=== PATIENT | female | born 1980 | race Caucasian/White ===

== ENCOUNTER 2017-03-20 17:07 | Emergency (ER) | payer MEDICAID, SELFPAY ==
[2017-03-20 17:08] VITALS: BP 138/90; PULSE 78; RESP 16; TEMP 36.9; O2SAT 98; BMI 57.2
--- NOTE | 2017-03-20 18:09 | CT_ITS ---
STUDY: CT ABDOMEN AND PELVIS WITH CONTRAST REASON FOR EXAM: Female, 36 years old. Right lower quadrant pain 3 weeks, history of cholecystectomy and tubal ligation. RADIATION DOSAGE (If Supplied By Facility): CTDIvol = ( 20.40 ) mGy, DLP = ( 1328.21 ) mGycm TECHNIQUE: Transaxial images were obtained from the dome of the diaphragm to the symphysis pubis without oral contrast. 100ml ml of Isovue 300 contrast was administered. Sagittal and coronal images were reconstructed. Individualized dose optimization techniques were used for this CT. COMPARISON: None. FINDINGS: The visualized lung bases are unremarkable. The visualized portions of the heart are within normal limits. Normal liver. There are surgical clips in the gallbladder fossa consistent with a prior cholecystectomy. There is xelt-oh-zjxplozk splenomegaly Normal pancreas. Normal bilateral adrenal glands. There is a subtle cystic structure in the right kidney measuring 9.2 mm Normal left kidney. Normal visualized stomach. Normal small intestine. There is a moderate amount of stool in the colon. The appendix is visualized and appears normal. The normal appendix is seen on image #90 coronal views. Normal abdominal aorta. Normal inferior vena cava. Normal retroperitoneum. Normal urinary bladder. Normal visualized uterus. There is a small cyst in the right ovary measuring 1.5 cm. There are tubal ligation clips visualized. There is a small umbilical hernia containing fat. There are diffuse degenerative changes of the visualized lumbar spine. This is most significant at L5-S1 disc space narrowing spondylosis broad disc osteophyte complex. CT/Abdomen/Pelvis WITH Contrast IMPRESSION: No evidence of appendicitis. Benign-appearing right ovarian follicle Status post cholecystectomy tubal ligation. Mild splenomegaly Hepatic steatosis Constipation. Degenerative change thoracolumbar spine. Electronically Signed: Prabha Davis MD at 20:16 EST Tel , Service support ,
[2017-03-20] MEDS: 0.9% Normal Saline 1,000 ML 1000 ML IV (18:45)
[2017-03-20] MEDS: Ondansetron 4 MG/2 ML Vial IV (18:46)
[2017-03-20] MEDS: Ketorolac 30 MG/ML Syringe IV (18:46)
[2017-03-20 18:49] LABS: Bacteria 0 SEEN /hpf (None Seen); Red Blood Cells-Urine 0 SEEN /hpf (0-5)
[2017-03-20 18:51] LABS: Absolute Lymphocyte Count 1.94 X10^3/ul (0.83-4.51); Absolute Neutrophil Count 4.2 X10^3/uL (2.0-7.7); Basophil# 0.02 X10^3/uL; Basophil% 0.3 % (0-1); Eosinophil# 0.26 X10^3/uL; Eosinophils% 3.8 % (0-5); Hematocrit 38.5 % (37-47); Hemoglobin 12.6 g/dl (12.0-15.0); Lymphocyte # 1.94 X10^3/ul (4.0); Mean Corp Hgb Conc 32.7 g/gl (32-36); Mean Corpuscular Hgb 26.4 pg (27.0-32.0); Mean Corpuscular Volume 80.7 fL (81-99); Mean Platelet Vol. 9.5 fl (6.2-12.0); Monocyte# 0.46 X10^3/uL; Monocyte% 6.6 % (0-10); Neutrophil # 4.23 X10^3/uL (2.7-7.7); Neutrophil % 61.2 % (47-70); POSITIVE COUNT NO; POSITIVE DIFFERENTIAL NO; POSITIVE MORPHOLOGY NO; Platelet Count 273 K/mm3 (150-450); RBC Distribution Width CV 14.3 % (11.6-14.6); RBC Distribution Width SD 41.8 fl (35.1-43.9); Red Blood Count 4.77 M/mm3 (4.2-5.4); White Blood Count 6.9 K/mm3 (4.4-11.0)
[2017-03-20 18:54] LABS: Color, Urine Yellow (Yellow); Glucose, Dipstick Normal (Normal); Ketone-Dipstick 5 mg/dl (Negative); Leukocyte Esterase-Dipstick 25 /ul (Negative); Nitrite-Dipstick Negative (Negative); Occult Blood-Urine Negative /ul (Negative); Protein-Dipstick Negative (Negative); Specific Gravity, Urine 1.025 (1.002-1.030); Urine Bilirubin Dipstick Negative (Negative); Urine Clarity Sl. Cloudy (Clear); Urine Urobilinogen 1 mg/dl (Normal)
[2017-03-20 18:57] LABS: AST(SGOT) 26 U/L (15-37); Alanine Aminotransfer ALT/SGPT 44 U/L (13-56); Albumin, Serum 3.5 g/dL (3.2-5.0); Alkaline Phosphatase 90 U/L (45-117); Anion Gap 8 (5-15); BUN 13 mg/dL (7-18); BUN/Creat Ratio 18.8 RATIO (10-20); Bilirubin, Direct 0.09 mg/dL (0.00-0.30); Calcium,Total 8.8 mg/dL (8.5-10.1); Chloride 105 mmol/L (98-107); Creatinine, Serum 0.69 mg/dL (0.55-1.02); EST Glomerular Filtration Rate 101 mL/min (>60); Est Glom Filt Rate - Afr Amer 123 mL/min (>60); Estimated Creatinine Clearance 116.66 ml/min; Globulin 3.6 g/dL (2.2-4.2); Glucose 85 mg/dL (74-106); Lipase 109 U/L (73-393); Potassium 3.8 mmol/L (3.5-5.1); Protein, Total 7.1 g/dL (6.4-8.2); Sodium Level 141 mmol/L (136-145)
[2017-03-20 19:03] LABS: Mucous, Urine 2+ /hpf (<or=2+)
[2017-03-20 19:05] LABS: Squamous Epithelial Cells - UA 0-5 SEEN /hpf (5-10); White Blood Cells 0-5 SEEN /hpf (0-5)
[2017-03-20 19:11] LABS: Pregnancy, Serum, hCG Quali. NEGATIVE Negative (0-9 Nonpreg)
--- NOTE | 2017-03-20 20:36 | ED.DCSUM_ITS ---
- ER Visit Summary Date of Service: 03/20/17 Chief Complaint: Abdominal pain History of Present Illness: The patient is a [address] Delgadillo. She reports that she has abdominal pain that began approximately 3 weeks ago. It is in the right lower side. Is an intermittent pain that lasts hours at a time. She describes as a sharp, aching pain. Is 8 out of 10 at worst and 6 out of 10 currently. Is worsened by movement and relieved by remaining still. She has had nausea without vomiting. She reports she has chronic diarrhea that is unchanged. No melena or hematochezia. No dysuria or frequency. Last menstrual period was March 16. She denies any vaginal bleeding or discharge. Physical Examination: Vitals: Stable. Afebrile. General: Well-nourished and well-developed. Head: Normocephalic atraumatic. Neck: Supple, no lymphadenopathy. No JVD. Nontender. Cardiovascular: Regular rate and rhythm. No murmurs. Respiratory: No respiratory distress. Clear to auscultation bilaterally. Abdominal: Soft, mild right lower quadrant tenderness to palpation, nondistended , normal bowel sounds. No guarding, rebound, or peritoneal signs. Back: Nontender. Extremities: Nontender, no edema. Skin: Normal color, no rash. Neurologic: Alert and oriented ?3. Cranial nerves II through XII are intact. Normal strength and sensation. Psych: Normal affect. Test Results: CBC is normal. Chem-7 is normal. LFTs are normal. Lipase is normal. UA shows leukocytes but no evidence of infection otherwise. test is negative. CT the abdomen pelvis. IV contrast shows a normal appendix. I does show 1.5 similar right ovarian cyst. Emergency Department Course and Treatment: Patient was treated with Toradol and Zofran. She is resting comfortably. Treatment Plan: She will be discharged with naproxen. Instructed to follow-up with her administrative dietitian in 1-2 weeks if not improving. Return to the emergency department for any worsening symptoms. Disposition: To home in improved and stable condition. Impression: 1. Right ovarian cyst. This note was generated with [employer] software. It may contain incorrect words, spelling, and punctuation that were not noted in review of the chart prior to signing ED Disposition - Plan for ED Patient: Disposition: Home or Assisted Living Chief Complaint: Abd Pain Instructions: ED Cyst Ovarian Prescriptions: Naproxen [Naprosyn] 500 mg PO BID #20 tablet Referrals: Gabrielle Ledesma MD [STAFF PHYSICIAN] - 1-2 Weeks
[2017-03-20 20:44] VITALS: PULSE 78; RESP 14; O2SAT 99
== END 2017-03-20 20:47 | disposition home or self-care (01) ==
LOC: ED 18:37
PROVIDERS: Emergency Provider Emergency Medicine; Family Provider Internal Medicine; PCP Internal Medicine
DX: N83.201 Unspecified ovarian cyst, right side (principal); K21.9 Gastro-esophageal reflux disease without esophagitis
CPT/HCPCS: 74177; 80048; 80076; 81001; 83690; 84703; 85025; 99283; J7030; Q9967; A4216; J2405

== ENCOUNTER 2017-04-06 09:19 | Emergency (ER) | payer MEDICAID, SELFPAY ==
[2017-04-06 09:21] VITALS: BP 144/82; PULSE 87; RESP 14; TEMP 36; BMI 56.8
--- NOTE | 2017-04-06 09:41 | ED.VISSUMM ---
- ER Visit Summary Date of Service: 04/06/17 Chief Complaint: Vomiting and diarrhea History of Present Illness: The patient is a 36 F who states that beginning yesterday afternoon she has had upset stomach and generalized body aches. She notes vomiting and diarrhea. She saw some red spots in her throat and on her face and became concerned. She notes a subjective fever last night. No history of small bowel obstruction. No history of diarrhea. Physical Examination: Afebrile vital signs are stable Gen: Well-nourished well-developed Head: Normocephalic atraumatic sheet has punctate petechiae around the eyes and cheeks consistent with forceful retching Eyes: Perrl EOMI ENT: TMs clear no rhinorrhea moist mucous membranes there is some petechiae on the soft palate Neck: Supple no lymphadenopathy no JVD nontender CVS: Regular rate rhythm no murmurs normal S1-S2 Respiratory: No distress clear to auscultation bilaterally chest nontender Abdomen: Soft nontender nondistended normal bowel sounds no masses Back: Nontender Extremity: Nontender no edema Skin: Normal color no rash Neuro: alert orientated ?3 CN II-XII intact normal strength sensation reflexes gait cerebellar Psych: Normal affect normal mood Emergency Department Course and Treatment: This most likely a viral gastroenteritis. The spots I believe her from retching and capillaries breaking and should be self-limited. We will treat with Imodium and Zofran. Return if worsening Impression: 1. Viral gastroenteritis This note was generated with [employer] dictation software. It may contain incorrect words, spelling, and punctuation that were not noted in review of the chart prior to signing ED Disposition - Plan for ED Patient: Disposition: Home or Assisted Living Chief Complaint: Nausea/Vomiting/Diarrhea Instructions: ED Gastroenteritis Viral Prescriptions: Ondansetron [Zofran Odt] 4 mg PO Q6H PRN PRN #14 tab PRN Reason: Nausea Referrals: nAnabel Delgadillo MD [Primary Care Provider] - 3-5 Days if not improving
--- NOTE | 2017-04-06 09:44 | ED.DCSUM_ITS ---
- ER Visit Summary Date of Service: 04/06/17 Chief Complaint: Vomiting and diarrhea History of Present Illness: The patient is a 36 F who states that beginning yesterday afternoon she has had upset stomach and generalized body aches. She notes vomiting and diarrhea. She saw some red spots in her throat and on her face and became concerned. She notes a subjective fever last night. No history of small bowel obstruction. No history of diarrhea. Physical Examination: Afebrile vital signs are stable Gen: Well-nourished well-developed Head: Normocephalic atraumatic sheet has punctate petechiae around the eyes and cheeks consistent with forceful retching Eyes: Perrl EOMI ENT: TMs clear no rhinorrhea moist mucous membranes there is some petechiae on the soft palate Neck: Supple no lymphadenopathy no JVD nontender CVS: Regular rate rhythm no murmurs normal S1-S2 Respiratory: No distress clear to auscultation bilaterally chest nontender Abdomen: Soft nontender nondistended normal bowel sounds no masses Back: Nontender Extremity: Nontender no edema Skin: Normal color no rash Neuro: alert orientated ?3 CN II-XII intact normal strength sensation reflexes gait cerebellar Psych: Normal affect normal mood Emergency Department Course and Treatment: This most likely a viral gastroenteritis. The spots I believe her from retching and capillaries breaking and should be self-limited. We will treat with Imodium and Zofran. Return if worsening Impression: 1. Viral gastroenteritis This note was generated with [employer] dictation software. It may contain incorrect words, spelling, and punctuation that were not noted in review of the chart prior to signing ED Disposition - Plan for ED Patient: Disposition: Home or Assisted Living Chief Complaint: Nausea/Vomiting/Diarrhea Instructions: ED Gastroenteritis Viral Prescriptions: Ondansetron [Zofran Odt] 4 mg PO Q6H PRN PRN #14 tab PRN Reason: Nausea Referrals: Annabel Delgadillo MD [Primary Care Provider] - 3-5 Days if not improving
[2017-04-06] MEDS: Ondansetron ODT 4 MG Tablet PO (09:51)
[2017-04-06] MEDS: Loperamide 2 MG Capsule 4 MG PO (09:51)
== END 2017-04-06 09:54 | disposition home or self-care (01) ==
PROVIDERS: Emergency Provider Emergency Medicine; Family Provider Internal Medicine; PCP Internal Medicine
DX: A08.4 Viral intestinal infection, unspecified (principal); Z87.891 Personal history of nicotine dependence
CPT/HCPCS: 99283

== ENCOUNTER 2017-06-14 16:01 | Emergency (ER) | payer MEDICAID, SELFPAY ==
[2017-06-14 16:03] VITALS: BP 157/94; PULSE 102; RESP 16; TEMP 37.3; O2SAT 98; BMI 54.3
--- NOTE | 2017-06-14 16:17 | ED.VISSUMM ---
- ER Visit Summary Date of Service: 06/14/17 Chief Complaint: Sore throat, myalgias History of Present Illness: The patient is a 36 F sore throat and myalgias since yesterday. Daughter with diagnosed strep approximately a week to 10 days ago. Pain with swallowing. Subjective fevers. Mild productive cough. No flu vaccination this year. States that asthma diagnosis. Remote tobacco. No vomiting or diarrhea. History of migraines with increasing headache due to symptoms. No head injuries. States she is on Lyrica 150 mg daily, ran out 3 days ago. States she can get a prescription by calling in tomorrow. Tolerating oral fluids. No chest pains or shortness of breath. Physical Examination: General: Alert and oriented ?3, no acute distress HEENT: Normocephalic, atraumatic. Moist mucosa membranes. Tonsils absent, as posterior pharyngeal erythema, there is small exudates on the left peritonsillar pillars, no trismus. TMs normal bilaterally Neck: supple, nontender. No meningismus Cardiovascular: Regular rate 96 and rhythm, no murmurs Respiratory: Normal breath sounds, symmetric, no distress Abdomen: Soft, nontender, nondistended Extremities: Nontender, no edema, pulses intact ?4 Neuro: no focal neurological deficits. Test Results: [] Emergency Department Course and Treatment: Patient nontoxic, vital signs stable. Patient's exposure to diagnose strep with symptoms, discuss empiric treatment for which she agrees. Also having myalgias with a history of asthma. Discussed empiric treatment also with Tamiflu. She agrees. Started on Zithromax along with Tamiflu lungs given 1 dose of her Lyrica for her migraines. She will call her PCP for her refill tomorrow. She continue oral fluids, Tylenol or Motrin as needed. All questions are answered. Treatment Plan: [] Disposition: Discharge Impression: 1. Acute pharyngitis 2. Influenza-like symptoms 3. Upper respiratory infection This note was generated with [employer] dictation software. It may contain incorrect words, spelling, and punctuation that were not noted in review of the chart prior to signing ED Disposition - Plan for ED Patient: Disposition: Home or Assisted Living Chief Complaint: General Illness Diagnosis: Acute pharyngitis, Influenza-like symptoms Instructions: Self-Care for Sore Throats, ED URI Viral Prescriptions: Azithromycin [Zithromax] 250 mg PO DAILY #4 tablet Oseltamivir Phosphate [Tamiflu] 75 mg PO BID #10 capsule Referrals: Annabel Delgadillo MD [Primary Care Provider] - 3-5 Days
[2017-06-14] MEDS: Oseltamivir Phosphate 75 MG Capsule PO (16:31)
[2017-06-14] MEDS: Pregabalin 75 MG Capsule 150 MG PO (16:31)
[2017-06-14] MEDS: Azithromycin 250 MG Tablet 500 MG PO (16:31)
== END 2017-06-14 16:37 | disposition home or self-care (01) ==
LOC: ED 16:36
PROVIDERS: Emergency Provider Emergency Medicine; Family Provider Internal Medicine; PCP Internal Medicine
DX: J02.9 Acute pharyngitis, unspecified (principal); J06.9 Acute upper respiratory infection, unspecified; G43.909 Migraine, unspecified, not intractable, without status migrainosus; K21.9 Gastro-esophageal reflux disease without esophagitis; J45.909 Unspecified asthma, uncomplicated; Z72.0 Tobacco use
CPT/HCPCS: 99283

== ENCOUNTER 2017-08-15 16:04 | Emergency (ER) | payer MEDICAID, SELFPAY ==
[2017-08-15 16:05] VITALS: BP 154/100; PULSE 77; RESP 18; TEMP 36.6; O2SAT 99; BMI 58.5
[2017-08-15 17:09] VITALS: BP 118/77; BP 120/80; BP 132/83; PULSE 66; PULSE 72; PULSE 86
[2017-08-15 17:47] LABS: Absolute Neutrophil Count 4.5 X10^3/uL (2.0-7.7); Basophil# 0.02 X10^3/uL; Basophil% 0.3 % (0-1); Eosinophil# 0.26 X10^3/uL; Eosinophils% 3.7 % (0-5); Hematocrit 37.7 % (37-47); Lymphocyte % 24.5 % (19-41); Mean Corp Hgb Conc 34.5 g/gl (32-36); Mean Corpuscular Hgb 27.1 pg (27.0-32.0); Mean Corpuscular Volume 78.5 fL (81-99); Mean Platelet Vol. 9.7 fl (6.2-12.0); Monocyte% 7.2 % (0-10); Neutrophil # 4.45 X10^3/uL (2.7-7.7); Neutrophil % 64.2 % (47-70); Platelet Count 264 K/mm3 (150-450); RBC Distribution Width CV 13.9 % (11.6-14.6); RBC Distribution Width SD 39.3 fl (35.1-43.9); White Blood Count 6.9 K/mm3 (4.4-11.0)
[2017-08-15 17:48] LABS: POSITIVE COUNT NO; POSITIVE DIFFERENTIAL NO; POSITIVE MORPHOLOGY NO
[2017-08-15 18:15] LABS: Pregnancy, Serum, hCG Quali. NEGATIVE Negative (0-9 Nonpreg)
--- NOTE | 2017-08-15 18:52 | ED.VISSUMM ---
- ER Visit Summary Date of Service: 08/15/17 Chief Complaint: Vaginal bleeding History of Present Illness: The patient is a [address] Barrington Delgadillo. She reports her last menstrual period was July 14. She states that she began bleeding this morning, but it is much heavier than usual. She reports that she is changing a tampon every 2 hours. So she reports she has cramping suprapubic pain that is 10 out of 10 at worst and 5 out of 10 currently. She is taken Tylenol with slight relief. She denies any fever or chills. She has had nausea without vomiting. No dysuria or frequency. Physical Examination: Vitals: Stable. Afebrile. General: Well-nourished and well-developed. Head: Normocephalic atraumatic. Neck: Supple, no lymphadenopathy. No JVD. Nontender. Cardiovascular: Regular rate and rhythm. No murmurs. Respiratory: No respiratory distress. Clear to auscultation bilaterally. Abdominal: Soft, mild suprapubic tenderness to palpation, nondistended, normal bowel sounds. No guarding, rebound, or peritoneal signs. Back: Nontender. Extremities: Nontender, no edema. Skin: Normal color, no rash. Neurologic: Alert and oriented ?3. Cranial nerves II through XII are intact. Normal strength and sensation. Psych: Normal affect. Test Results: CBC is marked for a an H&H of 13.0 37.7. test is negative. Emergency Department Course and Treatment: Patient was treated the dose of Toradol IV and is resting comfortably. Treatment Plan: Patient was discussed Dr. Celeste Magaña. She will be discharged instructions to follow-up Dr. Ledesma in 1-2 weeks. Return to emerge from if she is soaking more than 4 pads an hour for more than 4 hours. Disposition: To home in improved and stable condition. Impression: 1. Menorrhagia. This note was generated with [employer] dictation software. It may contain incorrect words, spelling, and punctuation that were not noted in review of the chart prior to signing ED Disposition - Plan for ED Patient: Disposition: Home or Assisted Living Chief Complaint: Vag Bleeding Instructions: ED Bleeding Menstrual Heavy Referrals: Gabrielle Ledesma MD [STAFF PHYSICIAN] - 1-2 Weeks
[2017-08-15] MEDS: 0.9% Normal Saline 1,000 ML 1000 ML IV (18:58)
[2017-08-15] MEDS: Ketorolac 30 MG/ML Syringe IV (18:58)
[2017-08-15 19:09] VITALS: BP 128/78; PULSE 60; RESP 18; O2SAT 100
[2017-08-15 19:12] VITALS: BP 128/78; PULSE 60; RESP 18; O2SAT 100
== END 2017-08-15 19:12 | disposition home or self-care (01) ==
PROVIDERS: Emergency Provider Emergency Medicine; Family Provider Internal Medicine; PCP Internal Medicine
DX: N92.0 Excessive and frequent menstruation with regular cycle (principal); R51 Headache; R10.9 Unspecified abdominal pain; R11.0 Nausea
CPT/HCPCS: 36415; 84703; 85025; 96361; 96374; 99284; A4216

== ENCOUNTER 2017-09-03 12:28 | Emergency (ER) | payer MEDICAID, SELFPAY ==
[2017-09-03 12:29] VITALS: BP 144/86; PULSE 96; RESP 18; TEMP 36.6; O2SAT 96; BMI 59.5
--- NOTE | 2017-09-03 13:08 | ED.VISSUMM ---
- ER Visit Summary Date of Service: 09/03/17 Chief Complaint: Left knee pain and swelling History of Present Illness: The patient is a 36 F who presents with chronic left knee pain and swelling. This is been present since last winter. She states that she has some mild aching pain. He complains of grinding. It is difficult to stand up. She states she has seen her primary care physician. She has been referred to physical therapy but it does not seem to be helping. She denies any acute changes or worsening of pain. She states she came here because I knew you guys would do something. Physical Examination: Afebrile vitals are unremarkable, patient's BMI is 59.6 Heart regular rate and rhythm No respiratory distress Patient has active full range of motion the left knee I do not appreciate any effusion she is neurovascularly intact distally with an easily palpable pulse brisk capillary refill normal sensation light touch Test Results: Not indicated Emergency Department Course and Treatment: Patient presents with chronic knee pain of many months with no acute changes and her pain is well controlled at this time. There is no indication for any further emergent workup. As she states she has not been benefiting from physical therapy and is looking for further evaluation or treatment she was referred to orthopedics on-call, Dr. Muniz. Treatment Plan: [] Disposition: Discharge Impression: Chronic left knee pain This note was generated with [employer] dictation software. It may contain incorrect words, spelling, and punctuation that were not noted in review of the chart prior to signing ED Disposition - Plan for ED Patient: Chief Complaint: Lower Extremity Injury Referrals: Annabel Delgadillo MD [Primary Care Provider] -
--- NOTE | 2017-09-03 13:11 | ED.DEP ---
ED Disposition - Plan for ED Patient: Chief Complaint: Lower Extremity Injury Instructions: ED Knee Pain [facility] Referrals: Annabel Delgadillo MD [Primary Care Provider] - Tk Muniz DO [STAFF PHYSICIAN] -
== END 2017-09-03 13:46 | disposition home or self-care (01) ==
LOC: ED 13:31
PROVIDERS: Emergency Provider Emergency Medicine; Family Provider Internal Medicine; PCP Internal Medicine
DX: M25.562 Pain in left knee (principal); G89.29 Other chronic pain; E66.9 Obesity, unspecified; K21.9 Gastro-esophageal reflux disease without esophagitis; G43.909 Migraine, unspecified, not intractable, without status migrainosus; Z90.49 Acquired absence of other specified parts of digestive tract; Z79.899 Other long term (current) drug therapy
CPT/HCPCS: 99282

== ENCOUNTER 2017-11-03 09:15 | Outpatient (RCR) | payer MEDICAID, SELFPAY | END 2017-11-08 23:59 | LOC: NS 09:15 | PROVIDERS: Family Provider Internal Medicine; PCP Internal Medicine; Visit Provider Physician Assistant | DX: E66.09 Other obesity due to excess calories (principal); Z68.44 Body mass index [BMI] 60.0-69.9, adult; Z71.3 Dietary counseling and surveillance | CPT/HCPCS: 97802 ==

== ENCOUNTER 2017-11-16 08:57 | Outpatient (RCR) | payer MEDICAID, SELFPAY | END 2017-11-16 23:59 | disposition home or self-care (01) | LOC: NS 08:57 | PROVIDERS: Family Provider Internal Medicine; PCP Internal Medicine; Visit Provider Physician Assistant | DX: E66.09 Other obesity due to excess calories (principal); Z68.44 Body mass index [BMI] 60.0-69.9, adult; Z71.3 Dietary counseling and surveillance | CPT/HCPCS: 97803 ==

== ENCOUNTER 2017-12-23 21:47 | Emergency (ER) | payer MEDICAID, SELFPAY ==
[2017-12-23 21:48] VITALS: BP 159/78; PULSE 90; RESP 16; TEMP 36.4; O2SAT 99; BMI 59.8
--- NOTE | 2017-12-23 22:35 | RAD_ITS ---
STUDY: X-RAY CHEST REASON FOR EXAM: Female, 37 years old. Coughing. TECHNIQUE: 2 views COMPARISON: Prior chest radiograph of April 22, 2015 FINDINGS: The lungs are clear and expanded. There is no demonstrated pleural abnormality. Normal size heart. Normal mediastinum and ana. Normal visualized pulmonary arteries. Normal visualized aortic arch and descending thoracic aorta. Normal visualized thoracic spine. Normal visualized ribs, clavicles, and shoulders. There is no demonstrated abnormality of the visualized soft tissue structures of the upper abdomen. RAD/Chest PA and Lateral IMPRESSION: Normal x-ray examination of the chest. Electronically Signed: Gavi Yadav MD at 22:54 EST , Service support ,
[2017-12-23] MEDS: Ipratropium/Albuterol Sulfate 3 ML AMPUL.NEB INHALATION (22:51)
[2017-12-23 22:53] VITALS: PULSE 72; RESP 18
--- NOTE | 2017-12-23 23:17 | ED.VISSUMM ---
- ER Visit Summary Date of Service: 12/23/17 Chief Complaint: Cough History of Present Illness: The patient is a 37 F presenting for evaluation secondary to a cough. Patient reports over the course last 10 days she has been dealing with a cough. She states that associated with some chest tightness, wheezing, decreased appetite and rhinorrhea. She denies any sore throat or fevers associated with this. Patient states that she does have an underlying history of asthma, but her albuterol has not been helping at home. Patient does report that she has a sensitivity to prednisone and typically has to be placed on alternative steroids. Review of systems otherwise negative. Physical Examination: Vital signs are within normal limits, patient is afebrile. General: Patient is well-nourished well-developed and in no acute distress. Head: Normocephalic, atraumatic Eyes: Pupils equal round and reactive bilaterally, extra occular motion intact bialterally ENT: Moist mucous membranes Neck: Supple, no lymphadenopathy, no JVD, no meningismus CVS: Heart regular rate and rhythm, no murmurs, rubs or gallops, radial pulses 2+ bilaterally Resp: Respirations nondistressed, Abdomen: Soft, nontender, nondistended, no palpable masses, normal bowel sounds Back: Nontender Extremities: Nontender, atraumatic, active full range of motion, no peripheral edema Skin: warm, no rashes, no petechia Neuro: Alert and oriented x 4, CN 2-12 intact, no lateralizing neurological defecits Psyc: Normal affect Test Results: PA and lateral chest x-ray negative. Flu swab negative. Emergency Department Course and Treatment: Patient presented for evaluation secondary to chest pain cough and hoarseness of voice. Workup was negative as noted above. Patient was given a DuoNeb in the emergency department seem to have improvement with that. She reports that she has sensitivities to prednisone but is able to tolerate Kenalog she was given a dose of that for her likely asthma exacerbation and as she said that she had more improvement with DuoNeb and albuterol I did give her prescription for DuoNeb nebulized treatments at home. Disposition: Discharge Impression: 1. Asthma exacerbation This note was generated with [employer] dictation software. It may contain incorrect words, spelling, and punctuation that were not noted in review of the chart prior to signing ED Disposition - Plan for ED Patient: Disposition: Home or Assisted Living Chief Complaint: Cough Diagnosis: Asthma exacerbation Instructions: ED Reactive Airway Disease Prescriptions: Ipratropium/Albuterol Sulfate [Duoneb] 3 ml INHALATION Q6H.RT #40 ampul.neb Referrals: Annabel Delgadillo MD [Primary Care Provider] - 1 Week
[2017-12-23] MEDS: Triamcinolone Acetonide 40 MG/ML Vial IM (23:31)
[2017-12-23 23:47] VITALS: PULSE 82; RESP 18; O2SAT 98
== END 2017-12-23 23:49 | disposition home or self-care (01) ==
PROVIDERS: Emergency Provider Emergency Medicine; Family Provider Internal Medicine; PCP Internal Medicine
DX: J45.901 Unspecified asthma with (acute) exacerbation (principal); E66.9 Obesity, unspecified; K21.9 Gastro-esophageal reflux disease without esophagitis
CPT/HCPCS: 71046; 87804; 94640; 99282

== ENCOUNTER 2018-04-16 14:45 | Emergency (ER) | payer MEDICAID, SELFPAY ==
[2018-04-16 14:46] VITALS: BP 121/47; PULSE 80; RESP 16; TEMP 36.6; O2SAT 99; BMI 61.4
--- NOTE | 2018-04-16 16:48 | ED.DCSUM_ITS ---
- ER Visit Summary Date of Service: 04/16/18 Chief Complaint: [Back pain] History of Present Illness: The patient is a 37 F [presents to the emergency department complaint of back pain that started yesterday. 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 Patient's had pain in the left lower back since that time. She denies any pain radiating down her legs. She denies any loss of bowel or bladder function. She denies weakness in extremities. She denies saddle anesthesia. Patient has had problems with her back in the past with herniated disks. Patient never had back surgery. She denies any fevers or urinary symptoms.] Physical Examination: [HEENT-PERRLA, EOMI. Cranial nerves II through XII grossly intact. TMs clear. Mucous membranes moist. No adenopathy. Cardiovascular-regular rate and rhythm without murmur or ectopy Lungs-clear to auscultation, chest wall stable without crepitus or subcu emphysema Abdomen-normoactive bowel sounds, soft, nontender, no rebound or rigidity, no pe ritoneal signs. Back exam-patient has tenderness palpation over the left lumbar paraspinal musculature that reproduces her pain. Negative straight leg raises. Deep tendon reflexes are plus out of 4 bilaterally at the patella and Achilles. Patient has normal L5 extension. Patient has normal sensation to light touch. Extremities-intact ?4, normal range of motion, normal pulses, atraumatic] Test Results: None indicated [] Emergency Department Course and Treatment: [Patient was medicated with Dilaudid, Norflex, and Toradol] Treatment Plan: [Patient will be given a prescription for Purdin, Flexeril, naproxen. Patient to follow-up with primary care physician within next 3-5 days. Patient advised to return if worsening pain, weakness the extremities, change in bowel or bladder function, or condition should worsen anyway.] Disposition: [Discharged home in stable condition] Impression: [Acute lumbar strain] This note was generated with [employer] software. It may contain incorrect words, spelling, and punctuation that were not noted in review of the chart prior to signing ED Disposition - Plan for ED Patient: Referrals: Annabel Delgadillo MD [Primary Care Provider] -
--- NOTE | 2018-04-16 16:50 | DCINST.ED_ITS ---
ED Disposition - Plan for ED Patient: Instructions: ED Sprain Strain Lumbar Prescriptions: Hydrocodone Bitart/Apap 5-325 [[place] 5MG-325MG] 1 tab PO Q4H PRN PRN 2 Days #20 tab PRN Reason: Pain Naproxen [Naprosyn] 500 mg PO BID PRN #20 tab Cyclobenzaprine [Flexeril] 10 mg PO TID PRN #20 tab PRN Reason: Muscle Spasm Referrals: Annabel Delgadillo MD [Primary Care Provider] - 3-5 Days
[2018-04-16] MEDS: HYDROmorphone 1 MG/ML Syringe IM (17:09)
[2018-04-16] MEDS: Ketorolac 60 MG/2 ML Vial IM (17:10)
[2018-04-16] MEDS: Orphenadrine 60 MG/2 ML Ampul IM (17:10)
[2018-04-16 17:59] VITALS: BP 117/56
== END 2018-04-16 18:11 | disposition home or self-care (01) ==
LOC: ED 16:54
PROVIDERS: Emergency Provider Emergency Medicine; Family Provider Internal Medicine; PCP Internal Medicine
DX: S39.012A Strain of muscle, fascia and tendon of lower back, initial encounter (principal); X58.XXXA Exposure to other specified factors, initial encounter; Y93.H1 Activity, digging, shoveling and raking; Y92.811 Bus as the place of occurrence of the external cause; Y99.0 Civilian activity done for income or pay
CPT/HCPCS: 96372; 99282

== ENCOUNTER 2018-07-21 14:52 | Emergency (ER) | payer MEDICAID, SELFPAY ==
[2018-07-21 14:53] VITALS: BP 151/77; PULSE 69; RESP 15; TEMP 36.7; O2SAT 97; BMI 61.0
--- NOTE | 2018-07-21 15:07 | RAD_ITS ---
STUDY: X-RAY - RIGHT KNEE REASON FOR EXAM: Female, 37 years old. Right knee pain. TECHNIQUE: AP and lateral view(s) of the knee. COMPARISON: None. FINDINGS: Normal visualized distal femur. Evidence of old Edgar-Schlatter disease. Normal proximal tibiofibular articulation. Normal medial femorotibial compartment. Normal lateral femorotibial compartment. Normal patellofemoral articulation. Small joint effusion. RAD/Knee 1 or 2 Views IMPRESSION: Small joint effusion. Electronically Signed: Mark Weaver, at 15:22 EDT , Service support ,
--- NOTE | 2018-07-21 15:17 | ED.VIS.LOWEX ---
History of Present Illness Chief Complaint: Lower Extremity Injury Detail of Chief Complaint: right knee pain Informant: Patient Onset: Days - 3 Context: Gradual Onset Timing: Continuous Quality of Pain: Aching Location: R knee Current Severity: Moderate Maximum Severity: Moderate Worsened by: bending, walking Relieved by: rest, remaining still Associated Symptoms: Negative for: Parasthesia, Weakness, Loss of Funtion Narrative: Patient states she has had gradual onset of pain and swelling in her right knee, hurts more to walk and bend it. She has had this in the other knee with osteoarthritis, but not this bad. She states several days ago before it was bothering her, she was working at folding up a large tarp in a yard where it was soggy and she was sinking, had sandals on, had to do a lot of work to try to keep her feet out of the mud, however she does not remember any acute onset of any symptoms then, or known injury. She states she is obese and trying to get into a bariatric surgery, has gone through multiple appointments so far, and is planning to lose weight to help her arthritis that she has in her knees already. She denies any fevers, foreign bodies, skin abnormalities, other systemic symptoms. She takes no anticoagulants. Recent Illness/Hospitalization: No - Past Medical History (1) Osteoarthritis Status: Chronic (2) GERD (gastroesophageal reflux disease) Status: Chronic Past Medical History - Allergies and Home Meds Allergies/Adverse Reactions: Allergies gabapentin [From Neurontin] Allergy (Verified 04/16/18 14:48) Swelling prednisone Adverse Reaction (Verified 04/16/18 14:48) Other Primary Care Physician: Annabel Delgadillo MD [Primary Care Provider] - Lives: Spouse/ Significant Other Smoking Status: Never smoker Review of Systems General: Denies: Chills, Fever Musculoskeletal: Reports: Swelling - knee only, Extremity Pain Neurological: Denies: Parasthesia, Numbness Physical Exam Vital Signs/Narrative: Vital Signs Temp Pulse Resp BP Pulse Ox 07/21/18 14:53 98.1 F 69 15 151/77 H 97 Inital Vital Signs reviewed: Yes - Extremity Exam Right Knee: Limited ROM - R knee, but only at extreme of flexion; range is excellent. ext mech intact. all ligaments intact w/ short end points. pain in the joint with stressing MCL, but no medial knee pain. neg Laure and post drawer sign., - - prob small subpatellar effusion, limited exam due to obesity. no erythema or excessive warmth c/w rest of RLE. General: Well nourished, Well developed, Obese Head: Normocephalic, Atraumatic Skin: Normal color, No rash, No Trauma Neurological: Alert, Oriented x3, Cranial nerves II-XII grossly intact, Normal Strength, Normal Sensation Psychological: Normal affect - well-appearing, nad, pleasant, conversive, Normal Mood, - - well-appearing, nad Diagnostic/Tx/Re-eval Clinical Impression(s) from Imaging Studies Knee X-Ray 07/21/18 15:07 IMPRESSION: Small joint effusion. Electronically Signed: Mark Owen, at 15:22 EDT , Service support , - Medical Decision Making X-ray shows small effusion and is otherwise unremarkable. I discussed risks and benefits of a knee arthrocentesis, as well as the possibility of recurrence and not getting much fluid out because her effusion is relatively small. She declines at this time which I think is fine. Cortisone injection may help, but it would not be appropriate to perform that in the ER, she should do that once she has definite follow-up established. She will be referred to the orthopedic practice that she is seen in the past, and in the meantime we will give her an Jone wrap and prescription for anti-inflammatories. I offered prednisone but she states that she cannot tolerate it well. Crutches declined. She is comfortable with this overall plan. ED Disposition - Plan for ED Patient: Disposition: Home or Assisted Living Diagnosis: Osteoarthritis, Effusion of right knee Instructions: ED Effusion Knee Prescriptions: Naproxen [Naprosyn] 500 mg PO BID PRN #20 tab Referrals: Luc Rossi DO [STAFF PHYSICIAN] - (when able)
--- NOTE | 2018-07-21 15:22 | ED.DCSUM_ITS ---
History of Present Illness Chief Complaint: Lower Extremity Injury Detail of Chief Complaint: right knee pain Informant: Patient Onset: Days - 3 Context: Gradual Onset Timing: Continuous Quality of Pain: Aching Location: R knee Current Severity: Moderate Maximum Severity: Moderate Worsened by: bending, walking Relieved by: rest, remaining still Associated Symptoms: Negative for: Parasthesia, Weakness, Loss of Funtion Narrative: Patient states she has had gradual onset of pain and swelling in her right knee, hurts more to walk and bend it. She has had this in the other knee with osteoarthritis, but not this bad. She states several days ago before it was bothering her, she was working at folding up a large tarp in a yard where it was soggy and she was sinking, had sandals on, had to do a lot of work to try to keep her feet out of the mud, however she does not remember any acute onset of any symptoms then, or known injury. She states she is obese and trying to get into a bariatric surgery, has gone through multiple appointments so far, and is planning to lose weight to help her arthritis that she has in her knees already. She denies any fevers, foreign bodies, skin abnormalities, other systemic sympt oms. She takes no anticoagulants. Recent Illness/Hospitalization: No - Past Medical History (1) Osteoarthritis Status: Chronic (2) GERD (gastroesophageal reflux disease) Status: Chronic Past Medical History - Allergies and Home Meds Allergies/Adverse Reactions: Allergies gabapentin [From Neurontin] Allergy (Verified 04/16/18 14:48) Swelling prednisone Adverse Reaction (Verified 04/16/18 14:48) Other Primary Care Physician: Annabel Delgadillo MD [Primary Care Provider] - Lives: Spouse/ Significant Other Smoking Status: Never smoker Review of Systems General: Denies: Chills, Fever Musculoskeletal: Reports: Swelling - knee only, Extremity Pain Neurological: Denies: Parasthesia, Numbness Physical Exam Vital Signs/Narrative: Vital Signs Temp Pulse Resp BP Pulse Ox 07/21/18 14:53 98.1 F 69 15 151/77 H 97 Inital Vital Signs reviewed: Yes - Extremity Exam Right Knee: Limited ROM - R knee, but only at extreme of flexion; range is excellent. ext mech intact. all ligaments intact w/ short end points. pain in the joint with stressing MCL, but no medial knee pain. neg Laure and post drawer sign., - - prob small subpatellar effusion, limited exam due to obesity. no erythema or excessive warmth c/w rest of RLE. General: Well nourished, Well developed, Obese Head: Normocephalic, Atraumatic Skin: Normal color, No rash, No Trauma Neurological: Alert, Oriented x3, Cranial nerves II-XII grossly intact, Normal Strength, Normal Sensation Psychological: Normal affect - well-appearing, nad, pleasant, conversive, Normal Mood, - - well-appearing, nad Diagnostic/Tx/Re-eval Clinical Impression(s) from Imaging Studies Knee X-Ray 07/21/18 15:07 IMPRESSION: Small joint effusion. Electronically Signed: Mark Owen, at 15:22 EDT , Service support , - Medical Decision Making X-ray shows small effusion and is otherwise unremarkable. I discussed risks and benefits of a knee arthrocentesis, as well as the possibility of recurrence and not getting much fluid out because her effusion is relatively small. She de clines at this time which I think is fine. Cortisone injection may help, but it would not be appropriate to perform that in the ER, she should do that once she has definite follow-up established. She will be referred to the orthopedic practice that she is seen in the past, and in the meantime we will give her an Jone wrap and prescription for anti-inflammatories. I offered prednisone but she states that she cannot tolerate it well. Crutches declined. She is comfortable with this overall plan. ED Disposition - Plan for ED Patient: Disposition: Home or Assisted Living Diagnosis: Osteoarthritis, Effusion of right knee Instructions: ED Effusion Knee Prescriptions: Naproxen [Naprosyn] 500 mg PO BID PRN #20 tab Referrals: Luc Rossi DO [STAFF PHYSICIAN] - (when able)
[2018-07-21] MEDS: Naproxen 500 MG Tablet PO (15:40)
== END 2018-07-21 15:47 | disposition home or self-care (01) ==
LOC: ED 15:33
PROVIDERS: Emergency Provider Emergency Medicine; Family Provider Internal Medicine; PCP Internal Medicine
DX: M25.461 Effusion, right knee (principal); K21.9 Gastro-esophageal reflux disease without esophagitis; M19.90 Unspecified osteoarthritis, unspecified site; Z88.8 Allergy status to other drugs, medicaments and biological substances; E66.9 Obesity, unspecified
CPT/HCPCS: 73560; 99283

== ENCOUNTER 2018-12-04 20:36 | Emergency (ER) | payer MEDICAID, SELFPAY ==
[2018-12-04 20:38] VITALS: BP 144/79; PULSE 83; RESP 16; TEMP 37; O2SAT 95; BMI 60.2
--- NOTE | 2018-12-04 20:59 | EKG12_ITS ---
Test Reason : SOB Blood Pressure : / mmHG Vent. Rate : 077 BPM Atrial Rate : 077 BPM P-R Int : 170 ms QRS Dur : 090 ms QT Int : 370 ms P-R-T Axes : -04 -13 001 degrees QTc Int : 418 ms Normal sinus rhythm Minimal voltage criteria for LVH, may be normal variant Borderline ECG Confirmed by SARA OSHEA, DAVID ([id number]), publishing editor RUPINDER BARTON ([id number]) on 12/07/2018 11:24:08 AM Referred By: GERHARD Confirmed By:DAVID RUIZ MD
--- NOTE | 2018-12-04 21:00 | ED.DCSUM_ITS ---
History of Present Illness Chief Complaint: Shortness of Breath Informant: Patient Onset: Days - 4 Context: Gradual Onset Timing: Continuous Narrative: Patient is a 38-year-old female with history of asthma presenting with worsening cough and shortness of breath. Patient states she went to urgent care yesterday and was diagnosed with bronchitis. She states she has had cough, chest congestion, shortness of breath, ear fullness and sore throat for the past 4 days. She notes is been significantly worse over the last 2 days. They gave her albuterol treatment but nothing else. Patient does have a nebulizer at [facility]. She did not get a chest x-ray. Patient states she is allergic to prednisone as it causes night terrors and other side effects however she is tolerated Kenalog in the past. Patient denies any swelling of her legs, recent travel or immobilization. Denies any history of pulmonary embolism or DVT. She denies any fever but has had chills for the past 2 days. She denies any other complaints at this time. Past Medical History - Allergies and Home Meds Allergies/Adverse Reactions: Allergies gabapentin [From Neurontin] Allergy (Verified 12/04/18 20:40) Swelling prednisone Adverse Reaction (Verified 12/04/18 20:40) Other Primary Care Physician: Toi Mendez MD [Primary Care Provider] - Past Medical History: - - Asthma Surgical History: cholecystectomy, tonsillectomy, - - , ankle surgery Smoking Status: Former smoker Review of Systems All systems negative except as indicated General: Reports: Chills, Malaise ENT: Reports: Bilateral ear pain, Sore throat, - - Nasal congestion Cardiovascular: Reports: - - Chest pressure Respiratory: Reports: Dyspnea, Cough, Dyspnea on exertion Physical Exam Vital Signs/Narrative: Vital Signs Temp Pulse Resp BP Pulse Ox 12/04/18 20:38 98.6 F 83 16 144/79 H 95 Inital Vital Signs reviewed: Yes General: Well nourished, Well developed, Obese, No Acute Distress Head: Normocephalic, Atraumatic Eyes: Perrl, EOMI ENT: Moist mucous membranes, Nasal congestion, - - Normal TMs, air-fluid level noted in left tympanic membrane, normal pharynx Neck: Supple, Nontender Cardiovascular: Regular rate, Regular rhythm, No murmurs Respiratory: No distress, Chest nontender, Wheezing - End expiratory, - - Coarse breath sounds throughout. Negative for: Rales, Rhonchi Abdomen: Soft, Nontender, Nondistended, Normal bowel sounds Back: Nontender, Normal Inspection Extremities: Nontender, No edema Skin: Normal color, No rash Neurological: Alert, Oriented x3, Cranial nerves II-XII grossly intact, Normal Strength, Normal Sensation Psychological: Normal affect, Normal Mood Diagnostic/Tx/Re-eval Chest X-Ray - ED: 2 View, Read by ED Physician, Read by Radiologist, No Acute Disease - Rhythm Strip Rhythm Strip: Sinus Rhythm Rate: 77 Ectopy: None - EKG Initial EKG Interpretation: Sinus Rhythm, - - Sinus rhythm at a rate of 77 Normal intervals Left axis deviation Minimal voltage criteria for LVH Normal ST segments, nonspecific T wave inversion in lead III - Medical Decision Making Patient is evaluated for 4 days of cough, shortness of breath and other URI symptoms. Her presentation is consistent with acute bronchitis. Patient was diagnosed with bronchitis yesterday at urgent care. She feels that the albuterol is not helping and would like a DuoNeb. In addition patient states she cannot take prednisone because of an adverse reaction. Patient has tolerated IM Kenalog in the past and is given a dose of that. Chest x-ray does not show any acute infiltrate. Patient is hemodynamically stable. She is not hypoxic. She is ambulated and her O2 saturation does not go below 94%. In addition patient is PE RC negative. I do not think blood work is indicated at this time. Patient is counseled on the typical course of acute bronchitis. Patient is counseled on signs and symptoms requiring return to the emergency room. Patient verbalizes agreement and understand this plan. Patient discharged home in stable and improved condition. ED Disposition - Plan for ED Patient: Disposition: Home or Assisted Living Diagnosis: Acute bronchitis Instructions: BRONCHITIS, No Antibiotic (Adult) Prescriptions: Ipratropium/Albuterol Sulfate [Duoneb] 3 ml INHALATION Q4H.RT PRN #20 ampul.neb PRN Reason: Sob &/Or Wheezing Prescription Printed Referrals: Toi Mendez MD [Primary Care Provider] - Additional Instructions: Please make sure he follow-up with your primary care doctor on Thursday or Thursday. Return to the emergency room if you have worsening symptoms or hard time breathing. At this time he did not have signs of pneumonia. I agree with the urgent care and this is likely a viral bronchitis. This can take up to 3 weeks to resolve.
[2018-12-04] MEDS: Ipratropium/Albuterol Sulfate 3 ML AMPUL.NEB INHALATION (21:13)
[2018-12-04] MEDS: Albuterol 2.5 MG/3 ML VIAL.NEB. INHALATION (21:13)
[2018-12-04 21:22] VITALS: PULSE 93; RESP 14
[2018-12-04] MEDS: Triamcinolone Acetonide 40 MG/ML Vial IM (21:30)
--- NOTE | 2018-12-04 21:38 | RAD_ITS ---
STUDY: X-RAY CHEST REASON FOR EXAM: Female, 38 years old. Cough and congestion. TECHNIQUE: PA and lateral views of the chest. COMPARISON: December 23, 2017 FINDINGS: There is no new focal consolidation. Normal size heart. Normal mediastinum and ana. Normal visualized pulmonary arteries. Normal visualized aortic arch and descending thoracic aorta. Normal visualized thoracic spine. Normal visualized ribs, clavicles, and shoulders. There is no demonstrated abnormality of the visualized soft tissue structures of the upper abdomen. RAD/Chest PA and Lateral IMPRESSION: No acute cardiopulmonary process. Electronically Signed: Talisha Nino MD at 21:57 EDT Tel , Service support ,
[2018-12-04 22:12] VITALS: O2SAT 94
[2018-12-04 22:36] VITALS: BP 124/78; PULSE 78; RESP 16; O2SAT 95
== END 2018-12-04 22:36 | disposition home or self-care (01) ==
PROVIDERS: Emergency Provider Emergency Medicine; Family Provider Family Medicine; PCP Family Medicine
DX: J20.9 Acute bronchitis, unspecified (principal); J45.909 Unspecified asthma, uncomplicated; Z87.891 Personal history of nicotine dependence
CPT/HCPCS: 71046; 93005; 94640; 96372; 99282

== ENCOUNTER 2018-12-11 21:59 | Emergency (ER) | payer MEDICAID, SELFPAY ==
[2018-12-11 22:00] VITALS: BP 177/88; PULSE 88; RESP 20; TEMP 36.6; O2SAT 98; BMI 59.9
--- NOTE | 2018-12-11 22:50 | RAD_ITS ---
HISTORY: LOWER LEFT BACK PAIN. LAST THURSDAY SHE COUGHED VERY HARD AND FELT LIKE THIS CONTRIBUTED TO IT COMPARISON: CT scan of the abdomen and pelvis with sagittal and coronal 2-D reformats from March 20, 2017 FINDINGS: # of images incl. paperwork: 3 XR Spine Lumbar 2 or 3 Views: Lumbar vertebral bodies are normal in height. Lumbar disc spaces are well-maintained except at the L5-S1 level. No acute lumbar spine fracture or subluxation. At the L5-S1 level there is loss of disc height, endplate sclerosis, disc gas phenomenon, and anterior and posterior enthesophytes. These were all present on the previous study. Tubal ligation clips remain Cholecystectomy clips remain RAD/Lumbar Spine 2 or 3 Views IMPRESSION: No acute lumbar spine fracture or subluxation. at [id number] Reported and signed by: Brian Atkinson MD Electronically Signed: Brian Atkinson MD at 23:17 EDT Tel , Service support ,
--- NOTE | 2018-12-11 22:51 | ED.DCSUM_ITS ---
History of Present Illness Chief Complaint: Back Informant: Patient Onset: Weeks - 2 Context: Sudden Onset - After I got done sweeping Injury: - - See above. Was not doing anything in particular when the pain abruptly started 2 weeks ago. Pain improved with supportive care. 1 week ago, pain restarted abruptly while coughing while sitting on the couch. Timing: Continuous Quality: Aching Location: Lumbar - Left side Current Severity: Moderate Maximum Severity: Moderate Worsened by: improves with: Movement, Ambulation, Bending Relieved by: Not Relieved By: Medications Associated Symptoms: - - No numbness or tingling in legs or perineum/groin. At times feels discomfort down both legs to the ankles anteriorly. No abdominal discomfort. No urinary incontinence or fecal incontinence but states that when she urinates, she cannot feel that she is going or is finished. Prior similar symptoms: With Prior Back Pain - Past Medical History (1) GERD (gastroesophageal reflux disease) Status: Chronic (2) Osteoarthritis Status: Chronic Past Medical History - Allergies and Home Meds Allergies/Adverse Reactions: Allergies gabapentin [From Neurontin] Allergy (Verified 12/11/18 22:00) Swelling prednisone Adverse Reaction (Verified 12/11/18 22:00) Other Primary Care Physician: Toi Mendez MD [Primary Care Provider] - Surgical History: cholecystectomy, tonsillectomy, - - , ankle surgery Lives: With Family Smoking Status: Former smoker Review of Systems General: Denies: Chills, Fever, Sweats Gastrointestinal: Denies: Abdominal pain, Nausea, Vomiting, Diarrhea, Melena, Hematochezia Genitourinary: Reports: - - See HPI. No incontinence.. Denies: Dysuria, Hematuria, Frequency Musculoskeletal: Reports: Back pain, Extremity Pain. Denies: Neck pain, Swelling Skin: Denies: Rash, Wounds Neurological: Denies: Headache, Weakness, Parasthesia, Numbness Physical Exam Vital Signs/Narrative: Vital Signs Temp Pulse Resp BP Pulse Ox 12/11/18 22:00 97.8 F 88 20 H 177/88 H 98 General: Well nourished, Well developed, Obese - Morbidly obese, - - Well- appearing no acute distress, using cell phone upon initial exam Head: Normocephalic, Atraumatic Eyes: Perrl, EOMI Neck: Supple, Nontender Cardiovascular: Regular rate, Regular rhythm, No murmurs Respiratory: No distress, CTA bilaterally, Chest nontender Abdomen: Soft, Nontender, Nondistended, Normal bowel sounds Back: Normal Inspection, Spinal tenderness - Upper lumbar spine, Paraspinal Tenderness - Left lumbar spine, Negative SLR - Right, Negative SLR - Left, - - Tender sciatic notch. Some pain around left SI joint as well, nontender.. Negative for: CVA tenderness Extremeties: Nontender, No edema Skin: Normal color, No rash Neuro: Alert, Oriented, Normal Strength, Normal Sensation, Normal DTR, Normal Gait, Normal Reflexes, - - No clonus. Psychological: Normal affect, Normal Mood Diagnostic/Tx/Re-eval Impressions Lumbar Spine X-Ray 12/11/18 22:50 IMPRESSION: No acute lumbar spine fracture or subluxation. at 2558 Reported and signed by: Brian Atkinson MD Electronically Signed: Brian Atkinson MD at 23:17 EDT Tel , Service support , 12/11/18 22:50 Lumbar Spine 2 or 3 Views [RAD] Stat Laboratory Results 12/11/18 23:15 Urine Color Yellow Urine Clarity Sl. Cloudy Urine pH 5.0 Ur Specific [place] 1.030 Urine Protein 30 H Urine Glucose (UA) Normal Urine Ketones 5 H Urine Occult Blood Negative Urine Nitrite Negative Urine Bilirubin Negative Urine Urobilinogen Normal Ur Leukocyte Esterase 25 H Urine RBC 0 SEEN Urine WBC 0-5 SEEN Ur Squamous Epith Cells 0-5 SEEN Urine Bacteria RARE Urine Mucus 1+ - Medical Decision Making X-rays are unremarkable, urinalysis shows no signs of infection. She can follow-up for the unusual urinary symptoms but I do not think that indicate cauda equina syndrome or any other emergent spinal cord or neurologic process. She does not have any findings consistent with sciatica at this time. She feels better somewhat after Toradol and Norflex. We will give her a prescription for tramadol to add [id number] and have her follow-up with her doctor check he is comfortable with that plan. ED Disposition - Plan for ED Patient: Disposition: Home or Assisted Living Diagnosis: Acute lumbar myofascial strain Instructions: Back Sprain/Strain Prescriptions: traMADol [Ultram] 50 mg PO Q4H PRN PRN 3 Days #14 tab PRN Reason: Pain Prescription Printed Referrals: Toi Mendez MD [Primary Care Provider] - 1 Week if not improving
[2018-12-11] MEDS: Orphenadrine 60 MG/2 ML Ampul IM (23:04)
[2018-12-11] MEDS: Ketorolac 60 MG/2 ML Vial IM (23:04)
[2018-12-11 23:50] LABS: Color, Urine Yellow (Yellow); Glucose, Dipstick Normal (Normal); Ketone-Dipstick 5 mg/dl (Negative); Leukocyte Esterase-Dipstick 25 /ul (Negative); Nitrite-Dipstick Negative (Negative); Occult Blood-Urine Negative /ul (Negative); Protein-Dipstick 30 mg/dl (Negative); Urine Bilirubin Dipstick Negative (Negative); Urine Clarity Sl. Cloudy (Clear); Urine Urobilinogen Normal (Normal)
[2018-12-12 00:29] LABS: Bacteria RARE /hpf (None Seen); Mucous, Urine 1+ /hpf (<or=2+); Red Blood Cells-Urine 0 SEEN /hpf (0-5); Squamous Epithelial Cells - UA 0-5 SEEN /hpf (5-10); White Blood Cells 0-5 SEEN /hpf (0-5)
[2018-12-12 00:51] VITALS: BP 115/74; PULSE 83; RESP 12; O2SAT 98
== END 2018-12-12 00:52 | disposition home or self-care (01) ==
PROVIDERS: Emergency Provider Emergency Medicine; Family Provider Family Medicine; PCP Family Medicine
DX: S39.012A Strain of muscle, fascia and tendon of lower back, initial encounter (principal); X58.XXXA Exposure to other specified factors, initial encounter; Z87.891 Personal history of nicotine dependence; Z90.49 Acquired absence of other specified parts of digestive tract; Z88.8 Allergy status to other drugs, medicaments and biological substances; K21.9 Gastro-esophageal reflux disease without esophagitis; M19.90 Unspecified osteoarthritis, unspecified site
CPT/HCPCS: 72100; 81001; 96372; 99282

== ENCOUNTER → 2019-07-20 10:14 | Outpatient (CLI) | payer MEDICAID, SELFPAY ==
--- NOTE | 2019-07-20 10:20 | MRI_ITS ---
STUDY: MRI LUMBAR SPINE WITHOUT CONTRAST REASON FOR EXAM: Female, 38 years old. low back pain, rt leg pain TECHNIQUE: Standardized fat and water weighted pulse sequences were obtained in the sagittal and axial planes. COMPARISON: November 20, 2010 FINDINGS: Lumbar lordosis relatively preserved. No significant scoliosis. Conus medullaris terminates normally at the L1 level. No acute fracture. No acute dislocation. No acute bone destruction. Tiny hemangiomas. Normal paraspinal muscles. Normal aorta. Normal retroperitoneum. Sacrum intact. T12-L1: Normal endplates. Normal disc height, hydration and morphology. Normal bilateral facet joints. Normal central canal and bilateral lateral recesses. Normal bilateral intervertebral neural foramina. L1-2: Normal endplates. Shallow disc bulge. Normal bilateral facet joints. Normal central canal and bilateral lateral recesses. Normal bilateral intervertebral neural foramina. L2-3: Normal endplates. Shallow disc bulge. Normal bilateral facet joints. Normal central canal and bilateral lateral recesses. Normal bilateral intervertebral neural foramina. L3-4: Minimal endplate spondylosis. Shallow disc bulge. Normal bilateral facet joints. Normal central canal and bilateral lateral recesses. Normal bilateral intervertebral neural foramina. L4-5: Minimal endplate spondylosis. Shallow disc bulge. Normal bilateral facet joints. Normal central canal and bilateral lateral recesses. Normal bilateral intervertebral neural foramina. L5-S1: Mild endplate spondylosis with Modic changes. Shallow disc bulge without central canal narrowing. Mild facet arthrosis. Normal central canal and bilateral lateral recesses. Neural foraminal narrowing without impingement. MRI/Spine Lumbar (Routine) IMPRESSION: Multilevel intervertebral disc disease without canal narrowing Neural foraminal narrowing without impingement at L5-S1 Endplate spondylosis predominating at L5-S1 with Modic changes Mild facet joint arthrosis at L5-S1 Electronically Signed: Willard Reynoso DO at 11:39 EDT Tel , Service support ,
== END ==
PROVIDERS: PCP Family Medicine; Referring Provider Physician Assistant; Visit Provider Physician Assistant
DX: M54.5 Low back pain (principal)
CPT/HCPCS: 72148

== ENCOUNTER 2019-09-26 13:24 | Emergency (ER) | payer MEDICAID, SELFPAY ==
[2019-09-26 13:25] VITALS: BP 140/85; PULSE 99; RESP 15; TEMP 36.4; O2SAT 98; BMI 60.8
--- NOTE | 2019-09-26 13:55 | ED.DCSUM_ITS ---
- ER Visit Summary Date of Service: 09/26/19 Chief Complaint: Atraumatic left posterior shoulder pain History of Present Illness: The patient is a 38 F history of asthma and reflux. Patient states 1 to 2 weeks ago she awoke 1 morning with pain in her left posterior shoulder. And upper back region. She denies any fall injury or trauma. States she has had some subjective numbness in her fingers. Denies any neck pain. No fever or chills. No trauma. She is never had neck, back or shoulder surgery. She had a virtual visit by nurse practitioner and C-spine x- rays which showed chronic changes. She was referred to [facility] to see a AVE tomorrow. She is tried Flexeril without relief. Anti-inflammatories. She denies any prior shoulder surgery. Physical Examination: Middle-aged female no acute distress vital signs are stable afebrile. H EENT exam unremarkable. Neck nontender. Lungs clear to auscultation bilaterally. Heart regular rhythm no murmur. Abdomen soft nontender. Obese. Extremities moves all 4. Neurovascular intact. He has 5-5 throat cutter strength bilaterally. Normal radial pulses bilaterally. She states subjectively she has decreased sensation in her fingers. She has negative median nerve palpation. No atrophy to her hand. Back exam spine is nontender. She has reproducible soft tissue tenderness medial to her shoulder blade consistent with muscle spasm. There is no signs of trauma. No bruising, redness or warmth. Neurologic exam is unremarkable. No motor loss. Test Results: None Emergency Department Course and Treatment: Exam and history consistent with muscle spasm. To be treated with IM here. She has a ride home. Treatment Plan: NSAIDs and Valium. Hot shower warm bath. Massage. Follow-up if not improving. She has an appointment to see [facility] tomorrow. Disposition: Discharge Impression: Left trapezius muscle spasm This note was generated with [employer] dictation software. It may contain incorrect words, spelling, and punctuation that were not noted in review of the chart prior to signing ED Disposition - Plan for ED Patient: Referrals: Toi Mendez MD [Primary Care Provider] -
[2019-09-26] MEDS: diazePAM 5 MG Tablet 10 MG PO (13:59)
--- NOTE | 2019-09-26 13:59 | ED.DEP ---
ED Disposition - Plan for ED Patient: Disposition: Home or Assisted Living Instructions: ED SPASM Muscle Prescriptions: Diazepam [Valium] 10 mg PO Q8H PRN PRN 5 Days #14 tab PRN Reason: Muscle Spasm Prescription Printed Referrals: Toi Mendez MD [Primary Care Provider] - 1 Week if not improving Additional Instructions: Motrin, Advil or Aleve for pain and inflammation. Valium for muscle relaxant. Do not drink or drive while using the Valium. Follow-up with your doctor if not improving and over the [facility] tomorrow. Hot shower, warm bath and massage.
== END 2019-09-26 14:07 | disposition home or self-care (01) ==
LOC: ED 14:03
PROVIDERS: Emergency Provider Emergency Medicine; PCP Family Medicine
DX: M62.830 Muscle spasm of back (principal); J45.909 Unspecified asthma, uncomplicated; K21.9 Gastro-esophageal reflux disease without esophagitis
CPT/HCPCS: 99283

== ENCOUNTER 2019-12-15 14:47 | Emergency (ER) | payer MEDICAID, SELFPAY ==
[2019-12-15 14:49] VITALS: BP 158/106; PULSE 79; RESP 20; TEMP 36.5; O2SAT 99; BMI 60.8
--- NOTE | 2019-12-15 15:22 | EKG12_ITS ---
Test Reason : PALPITATIONS Blood Pressure : / mmHG Vent. Rate : 071 BPM Atrial Rate : 071 BPM P-R Int : 172 ms QRS Dur : 096 ms QT Int : 398 ms P-R-T Axes : -06 -13 011 degrees QTc Int : 432 ms Normal sinus rhythm Moderate voltage criteria for LVH, may be normal variant Borderline ECG Confirmed by MIKE OSHEA, TAYO ([id number]), subeditor RUPINDER BARTON ([id number]) on 12/19/2019 2:29:36 PM Referred By: RAFITA Confirmed By:TAYO MCKEON MD
--- NOTE | 2019-12-15 15:30 | ED.VIS.GEN ---
History of Present Illness Chief Complaint: Palpitations Informant: Patient Narrative: Patient is a 39-year-old female with a past medical history of GERD who presents to the emergency department for near syncopal episode. She states that she had some palpitations yesterday which resolved. She developed some reflux that went up into her throat today. She tried taking a couple Tums which did not give significant relief. She ended up going to work. When she arrived there she noticed her Fitbit said that her heart rate was 101. She walked around the parking lot and was looking for her boss whenever she found her her heart rate was in the 115's. She started to see some spots in her vision. She did not have any syncopal episodes. She denies ever having this happen before in the past. Currently her only complaint is a generalized shakiness. She denies any chest pain, shortness of breath or palpitations now. She denies any recent illnesses including any cough, cold-like symptoms, congestion. No fevers or chills. No nausea/vomiting or diarrhea. No urinary symptoms. She denies any abdominal pain. Past Medical History - Allergies and Home Meds Allergies/Adverse Reactions: Allergies gabapentin [From Neurontin] Allergy (Verified 12/15/19 14:49) Swelling prednisone Adverse Reaction (Verified 12/15/19 14:49) Other Primary Care Physician: Toi Mendez MD [Primary Care Provider] - 2 Days Surgical History: cholecystectomy, tonsillectomy, - - , ankle surgery Smoking Status: Former smoker Review of Systems General: Denies: Chills, Fever, Sweats Eyes: Denies: Visual changes - bilaterally, Diplopia ENT: Denies: Rhinorrhea, Sore throat Cardiovascular: Reports: Palpitations. Denies: Chest pain Respiratory: Denies: Dyspnea, Cough, Dyspnea on exertion Gastrointestinal: Denies: Abdominal pain, Nausea, Vomiting, Diarrhea Genitourinary: Denies: Dysuria, Hematuria, Frequency Musculoskeletal: Denies: Back pain, Extremity Pain Skin: Denies: Rash, Wounds Neurological: Denies: Headache, Weakness, Numbness Physical Exam Vital Signs/Narrative: Vital Signs Temp Pulse Resp BP Pulse Ox 12/15/19 14:49 97.7 F L 79 20 H 158/106 H 99 Inital Vital Signs reviewed: Yes General: Well nourished, Well developed, No Acute Distress Head: Normocephalic, Atraumatic Eyes: Perrl, EOMI ENT: Moist mucous membranes, No rhinorrhea Neck: Supple, Nontender Cardiovascular: Regular rate, Regular rhythm, No murmurs, - - 2+ radial pulse Respiratory: No distress, CTA bilaterally, Chest nontender Abdomen: Soft, Nontender, Nondistended, Normal bowel sounds Back: Nontender, Normal Inspection Extremities: Nontender, No edema. Negative for: Calf Tenderness Skin: Normal color, No rash Neurological: Alert, Oriented x3, Cranial nerves II-XII grossly intact, Normal Strength, Normal Sensation Psychological: Normal affect, Normal Mood Diagnostic/Tx/Re-eval - EKG Initial EKG Interpretation: - - Rate of 71 bpm normal sinus rhythm. Normal intervals. Left axis deviation. No significant ST elevations or depressions appreciated. No T wave abnormalities. - Medical Decision Making Patient presents to the ED for palpitations, and near syncopal event today. Upon arrival to the emergency department she is in no acute distress and her symptoms have resolved. No signs within normal limits. She is not tachycardic and has a regular rhythm. She is not hypoxic on room air. Will check basic lab work, EKG, chest x-ray and orthostatic vital signs. Patient's work-up did not reveal any significant acute abnormality. Orthostatic vitals were negative but she was mildly symptomatic with them. She is able to tolerate oral fluids here in the ED so we will hold off on IV hydration. Otherwise has been stable. No repeat palpitations. She has been in normal sinus rhythm throughout ED stay. Low concern for pulmonary embolism as she has no chest pain or shortness of breath. No hypoxia. We will have her follow-up with her PCP. Warning signs and symptoms for which to return to the ED are reviewed with her. She understands and is agreeable with this plan. She is discharged home in stable condition. All questions answered. ED Disposition - Plan for ED Patient: Disposition: Home or Assisted Living Diagnosis: Near syncope Instructions: ED Near-Fainting Uncertain Cause Referrals: Toi Mendez MD [Primary Care Provider] - 2 Days
--- NOTE | 2019-12-15 15:38 | RAD_ITS ---
STUDY: X-RAY CHEST REASON FOR EXAM: Female, 39 years old. Intermittent heart palpitations/racing for few months. dizziness. TECHNIQUE: Single AP portable view of the chest. COMPARISON: None. FINDINGS: EKG electrodes are seen. The lungs are clear and expanded. There is no demonstrated pleural abnormality. Normal size heart. Normal mediastinum and ana. Normal visualized pulmonary arteries. Normal visualized aortic arch and descending thoracic aorta. Normal visualized thoracic spine. Normal visualized ribs, clavicles, and shoulders. There is no demonstrated abnormality of the visualized soft tissue structures of the upper abdomen. RAD/Chest 1 View (Portable) IMPRESSION: Normal x-ray examination of the chest. Electronically Signed: Mark Weaver, at 15:47 EST , Service support ,
[2019-12-15 16:07] LABS: Absolute Lymphocyte Count 1.62 X10^3/uL (0.83-4.51); Absolute Neutrophil Count 3.8 X10^3/uL (2.0-7.7); Basophil# 0.04 X10^3/uL; Basophil% 0.7 % (0-1); Eosinophil# 0.23 X10^3/uL; Eosinophils% 3.7 % (0-5); Hematocrit 40.6 % (37-47); Hemoglobin 12.8 g/dL (12.0-15.0); Lymphocyte # 1.62 X10^3/ul (4.0); Lymphocyte % 26.4 % (19-41); Mean Corp Hgb Conc 31.5 g/dL (32-36); Mean Corpuscular Hgb 25.4 pg (27.0-32.0); Mean Corpuscular Volume 80.7 fL (81-99); Monocyte# 0.46 X10^3/uL; Monocyte% 7.5 % (0-10); NRBC Flagged by Analyzer 0 % (0-5); Neutrophil # 3.77 X10^3/uL (2.7-7.7); Neutrophil % 61.4 % (47-70); Platelet Count 296 K/mm3 (150-450); RBC Distribution Width SD 41.1 fl (35.1-43.9); Red Blood Count 5.03 M/mm3 (4.2-5.4); White Blood Count 6.1 K/mm3 (4.4-11.0)
[2019-12-15 16:11] VITALS: BP 122/84; BP 128/67; BP 136/81; PULSE 72; PULSE 74; PULSE 95
[2019-12-15] MEDS: Mag Hydrox/Al Hydrox/Simeth 30 ML UDC PO (16:17)
[2019-12-15 16:21] LABS: Anion Gap 6 (5-15); BUN 14 mg/dL (7-18); BUN/Creat Ratio 17.9 RATIO (10-20); Calcium,Total 9.1 mg/dL (8.5-10.1); Chloride 107 mmol/L (98-107); Creatinine, Serum 0.78 mg/dL (0.55-1.02); EST Glomerular Filtration Rate 87 mL/min (>60); Est Glom Filt Rate - Afr Amer 105 mL/min (>60); Estimated Creatinine Clearance 96.71 ml/min; Glucose 101 mg/dL (74-106); Potassium 3.4 mmol/L (3.5-5.1); Sodium Level 139 mmol/L (136-145)
[2019-12-15 16:49] LABS: Internal QC Validated? YES +Cl - CLEAR BKGD; Pregnancy, Serum, hCG Quali. NEGATIVE Negative
[2019-12-15 17:08] VITALS: BP 127/80; PULSE 75; RESP 16
== END 2019-12-15 17:09 | disposition home or self-care (01) ==
PROVIDERS: Emergency Provider Emergency Medicine; PCP Family Medicine
DX: R55 Syncope and collapse (principal); K21.9 Gastro-esophageal reflux disease without esophagitis; Z88.8 Allergy status to other drugs, medicaments and biological substances; Z90.49 Acquired absence of other specified parts of digestive tract
CPT/HCPCS: 71045; 80048; 83735; 84484; 84703; 85025; 93005; 99285; A4216

== ENCOUNTER 2020-11-05 16:52 | Emergency (ER) | payer MEDICAID, SELFPAY ==
[2020-11-05 16:53] VITALS: BP 140/82; PULSE 89; RESP 18; TEMP 36.6; O2SAT 97; BMI 59.8
--- NOTE | 2020-11-05 16:57 | EKG12_ITS ---
Test Reason : CP Blood Pressure : / mmHG Vent. Rate : 086 BPM Atrial Rate : 086 BPM P-R Int : 150 ms QRS Dur : 086 ms QT Int : 350 ms P-R-T Axes : -01 -17 002 degrees QTc Int : 418 ms Normal sinus rhythm Voltage criteria for left ventricular hypertrophy Poor R wave progression Abnormal ECG Confirmed by MIKE OSHEA, TAYO ([id number]), assignment desk editor RUPINDER ABRTON ([id number]) on 11/07/2020 11:27:14 AM Referred By: GERHARD/LUZMA Confirmed By:TAYO MCKEON MD
--- NOTE | 2020-11-05 17:15 | RAD_ITS ---
STUDY: X-RAY CHEST REASON FOR EXAM: Female, 40 years old. chest pain TECHNIQUE: Single AP portable view of the chest. COMPARISON: 12/15/2019 FINDINGS: The lungs are clear and expanded. There is no demonstrated pleural abnormality. Normal size heart. Normal mediastinum and ana. Normal visualized pulmonary arteries. Normal visualized aortic arch and descending thoracic aorta. Normal visualized thoracic spine. Normal visualized ribs, clavicles, and shoulders. There is no demonstrated abnormality of the visualized soft tissue structures of the upper abdomen. RAD/Chest 1 View (Portable) IMPRESSION: Normal x-ray examination of the chest. Electronically Signed: David Almaguer MD at 17:31 EDT Tel , Service support ,
[2020-11-05 17:22] LABS: Absolute Neutrophil Count 7.4 X10^3/uL (2.0-7.7); Basophil# 0.02 X10^3/uL; Basophil% 0.2 % (0-1); Eosinophil# 0.34 X10^3/uL; Eosinophils% 3.2 % (0-5); Hematocrit 38.7 % (37-47); Hemoglobin 12.5 g/dL (12.0-15.0); Lymphocyte % 19.6 % (19-41); Mean Corp Hgb Conc 32.3 g/dL (32-36); Mean Corpuscular Hgb 25.1 pg (27.0-32.0); Mean Corpuscular Volume 77.7 fL (81-99); Mean Platelet Vol. 9.2 fl (6.2-12.0); Monocyte# 0.86 X10^3/uL; NRBC Flagged by Analyzer 0 % (0-5); Neutrophil # 7.37 X10^3/uL (2.7-7.7); Neutrophil % 68.6 % (47-70); Platelet Count 300 K/mm3 (150-450); RBC Distribution Width CV 14.9 % (11.6-14.6); RBC Distribution Width SD 42.1 fl (35.1-43.9); Red Blood Count 4.98 M/mm3 (4.2-5.4); White Blood Count 10.7 K/mm3 (4.4-11.0)
[2020-11-05 17:33] LABS: Prothrombin Time (Protime)PT. 12.3 SECONDS (11.7-14.9)
[2020-11-05 17:44] LABS: Anion Gap 5 (5-15); BUN 17 mg/dL (7-18); BUN/Creat Ratio 23.8 RATIO (10-20); Calcium,Total 8.8 mg/dL (8.5-10.1); Chloride 105 mmol/L (98-107); Creatinine, Serum 0.72 mg/dL (0.55-1.02); EST Glomerular Filtration Rate 96 mL/min (>60); Est Glom Filt Rate - Afr Amer 116 mL/min (>60); Estimated Creatinine Clearance 107.46 ml/min; Glucose 92 mg/dL (74-106); Sodium Level 139 mmol/L (136-145); Troponin-I HS 5 pg/mL (3.0-54.0)
[2020-11-05 19:01] VITALS: O2SAT 97
[2020-11-05 19:06] VITALS: PULSE 83; RESP 16; O2SAT 100
--- NOTE | 2020-11-05 19:07 | ED.VIS.CHEST ---
HPI History of Present Illness Chief Complaint: Chest Pain Narrative Narrative: 40-year-old female presenting with palpitations and chest pain. She states she has had palpitations for very long time and she knows this. She states that she started having chest pain retrosternally which radiates to the back since 4 AM. She states she does not feel short of breath except for when she ambulates. She has not had fever, cough, body aches, loss of taste or smell. Patient was vaccinated for COVID-19. Patient does not have any known cardiac history. Denies history of DVT/PE and has no risk factors. PE Risk Factors: Negative for Recent Travel/Surgery, Recent Immobilization, Prior DVT or PE, Cancer and OCP + Smoking + >/=35 PFSH PFSH Home Medications omeprazole 40 mg PO DAILY 04/16/18 [History Last Taken 12/15/19] albuterol sulfate 2.5 mg INHALATION Q4HWA.RT PRN 12/04/18 [History Last Taken Unknown] ipratropium-albuterol 3 ml INHALATION Q4H.RT PRN #20 ampul.neb 12/04/18 [Rx Last Taken Unknown] pregabalin 75 mg PO BID 12/15/19 [History Last Taken 12/15/19] loratadine [Claritin] 10 mg PO DAILY 11/05/20 [History Last Taken Unknown] Allergy/AdvReac Type Severity Reaction Status Date / Time gabapentin [From Neurontin] Allergy Swelling Verified 11/05/20 16:54 prednisone AdvReac Other Verified 11/05/20 16:54 Social History Smoking Status: Former smoker ROS [facility] ED Constitutional Constitutional ED: Denies chills or fever(s) Eyes Eyes: Denies blurry vision or change in vision ENT ENT ED: Denies rhinorrhea or sore throat Cardiovascular Cardiovascular: Reports chest pain and palpitations Respiratory/Chest Respiratory/Chest: Reports dyspnea on exertion; Denies cough or dyspnea Gastrointestinal Gastrointestinal: Denies abdominal pain, nausea or vomiting Genitourinary Genitourinary ED: Denies dysuria or hematuria Musculoskeletal Musculoskeletal: Denies myalgias or neck pain Integumentary Denies Abrasions or rash Neurologic Neurologic: Denies headache(s) or paresthesias EXAM Physical Exam Const Vital Signs: 11/05/20 16:53 11/05/20 19:11/05/20 19:06 Temperature 97.8 F Temperature Source Temporal Pulse Rate 89 83 Respiratory Rate 18 16 Respiratory Effort Normal Non-Labored Respiratory Pattern Normal Blood Pressure 140/82 H Blood Pressure Mean 101 Pulse Ox 97 97 100 Oxygen Delivery Method Room Air Room Air Room Air 11/05/20 20:34 Temperature Temperature Source Pulse Rate 79 Respiratory Rate 17 Respiratory Effort Respiratory Pattern Blood Pressure 126/79 H Blood Pressure Mean Pulse Ox 99 Oxygen Delivery Method Positive well developed General Appearance ED: well developed and NAD; Negative for pallor HEENT Reports moist mucous membranes normocephalic and trauma Eyes PERRL and EOMs intact bilaterally Chest Wall inspection of chest normal and palpation of chest normal Resp normal respiratory effort Effort and Inspection: respiratory distress Cardio regular rate and regular rhythm Extremity normal to inspection General Extremety ED: Negative for edema or tenderness General Extremity: Negative for edema Neuro oriented x3 and CN's II-XII intact bilaterally Sensorium / Orientation: awake and alert Motor Exam: strength 5/5 throughout Psych mental status grossly normal Skin General Skin Exam: Negative for jaundice or pallor Heart Score History: Slightly/Non-Suspicious ECG: Normal Age: </= 45 years Risk Factors: No Risk Factors Troponin: </= Normal Limit Score: 0 MDM MDM MDM Narrative Medical decision making narrative: Patient presenting with chest pain which is been present since 4 AM. She describes it as aching and radiated to the right side of her back. EKG on my interpretation shows a normal sinus rhythm with a ventricular rate of 86/min without signs of ischemic change. Histogram my interpretation shows no acute cardiopulmonary process. Radiologist does agree. CBC is within normal limits. BMP is unremarkable. Troponin is 5 both times is not changed. D-dimer is negative. Patient was ambulated in the hallway and did desat to 91% however she quickly rebounded to 96 to 97%. Since patient's cardiac work-up is ultimately negative I did speak with her PCP regarding follow-up given the low pulse ox with ambulation. I feel she is safe to be discharged home at this time. Impression: 1. Chest pain Lab Data Labs: Laboratory Results - last 24 hr 11/05/20 11/05/20 11/05/20 17:11 17:11 17:11 WBC 10.7 RBC 4.98 Hgb 12.5 Hct 38.7 MCV 77.7 L MCH 25.1 L MCHC 32.3 RDW Std Deviation 42.1 RDW Coeff of Gee 14.9 H Plt Count 300 MPV 9.2 Immature Gran % (Auto) 0.400 Neut % (Auto) 68.6 Lymph % (Auto) 19.6 [place] % (Auto) 8.0 Eos % (Auto) 3.2 Baso % (Auto) 0.2 Absolute Neuts (auto) 7.4 Absolute Lymphs (auto) 2.10 Nucleated RBC % 0 PT 12.3 INR 1.0 D-Dimer Quant (PE/DVT) Sodium 139 Potassium 4.0 Chloride 105 Carbon Dioxide 29.0 Anion Gap 5 BUN 17 Creatinine 0.72 Estim Creat Clear Calc 107.46 Est GFR (MDRD) Af Amer 116 Est GFR (MDRD) Non-Af 96 BUN/Creatinine Ratio 23.8 H Glucose 92 Calcium 8.8 Troponin I High Sens 5 11/05/20 11/05/20 19:18 19:18 WBC RBC Hgb Hct MCV MCH MCHC RDW Std Deviation RDW Coeff of Gee Plt Count MPV Immature Gran % (Auto) Neut % (Auto) Lymph % (Auto) [place] % (Auto) Eos % (Auto) Baso % (Auto) Absolute Neuts (auto) Absolute Lymphs (auto) Nucleated RBC % PT INR D-Dimer Quant (PE/DVT) 0.39 Sodium Potassium Chloride Carbon Dioxide Anion Gap BUN Creatinine Estim Creat Clear Calc Est GFR (MDRD) Af Amer Est GFR (MDRD) Non-Af BUN/Creatinine Ratio Glucose Calcium Troponin I High Sens 5 Radiography Diagnostic Testing: Radiology Impression Chest X-Ray 11/05/20 17:15 IMPRESSION: Normal x-ray examination of the chest. Electronically Signed: David Almaguer MD at 17:31 EDT Tel , Service support , Discharge Plan Triage Chief Complaint: Chest Pain ED Provider: Matthew Carbajal Dx/Rx/DC Orders Instructions: ED Chest Pain, Noncardiac Prescriptions: No Action omeprazole 40 capsule,delayed release(DR/EC) 40 mg PO DAILY RF: 0 albuterol sulfate 2.5 MG/3 ML solution for nebulization 2.5 mg inhalation Q4HWA.RT PRN (Reason: Sob &/Or Wheezing) RF: 0 ipratropium-albuterol 3 ML solution for nebulization 3 ml inhalation Q4H.RT PRN (Reason: Sob &/Or Wheezing) Qty: 20 RF: 0 pregabalin 75 MG capsule 75 mg PO BID RF: 0 loratadine [Claritin] 10 mg Tablet 10 mg PO DAILY RF: 0 Primary Care Provider: Toi Mendez Referrals: Toi Mendez MD [Primary Care Provider] - Disposition Disposition: Home, Self Care Discharge Date/Time: 11/05/20 20:35
[2020-11-05 19:40] LABS: D-Dimer Quantitative (DVT/PE) 0.39 FEU/ug/m (0.27-0.49)
[2020-11-05 19:52] LABS: Troponin-I HS 5 pg/mL (3.0-54.0)
[2020-11-05 20:34] VITALS: BP 126/79; PULSE 79; RESP 17; O2SAT 99
== END 2020-11-05 20:35 | disposition home or self-care (01) ==
PROVIDERS: Emergency Provider Student in an Organized Health Care Education/Training Program; PCP Family Medicine
DX: R07.9 Chest pain, unspecified (principal); Z87.891 Personal history of nicotine dependence; Z79.52 Long term (current) use of systemic steroids; Z79.899 Other long term (current) drug therapy
CPT/HCPCS: 71045; 80048; 84484; 85025; 85379; 85610; 93005; 99284; A4216

== ENCOUNTER 2021-06-24 14:15 | Emergency (ER) | payer MEDICAID, SELFPAY ==
[2021-06-24 14:16] VITALS: BP 147/93; PULSE 99; RESP 18; TEMP 36.6; O2SAT 100; BMI 61.2
[2021-06-24 14:18] VITALS: BP 147/93; PULSE 99; RESP 18; TEMP 36.6; O2SAT 100
--- NOTE | 2021-06-24 14:35 | EDS_ITS ---
HPI HPI - GI History of Present Illness Chief Complaint: Abd Pain Detail of Chief Complaint: Suspect appendicitis Informant: patient Abdominal Pain/Flank Pain Onset: Yesterday Context: Gradual Onset Timing: Continuous Quality: Aching Location: Epigastric (Initially epigastric now right lower quadrant) Current Severity: Mild Maximum Severity: Moderate Worsened by: Car ride and Movement Relieved by: Nothing Nausea/Vomiting/Emesis GI Symptom: Positive for Nausea; Negative for Vomiting Onset: Yesterday Diarrhea/Melena/Hematochezia GI Symptom: Positive for Diarrhea; Negative for Melena and Hematochezia Associated Symptoms Associated Symptoms: Negative for Dysuria, Frequency, Hematuria and Urgency Narrative Narrative: Patient is a 40-year-old female who presents with epigastric pain that started last evening and has migrated to the right lower quadrant. She reports nausea and states she has no appetite. Movement and walking causes increased pain. She is scheduled for gastric bypass surgery. She reports that Dr. Dawn did a cholecystectomy on her in the past. She denies abnormal vaginal bleeding. Last normal menstrual cycle was June 13. She denies dysuria, frequency, urgency or hematuria. She denies blood or mucus in her diarrhea. There is no history of trauma. Prior similar symptoms: No Recent Illness/Hospitalization: No PFSH PFSH Medical History (Updated 06/24/21 @ 15:[address] Osbaldo Manjarrez MD) Arthritis GERD (gastroesophageal reflux disease) Migraine Home Medications omeprazole 40 mg PO DAILY 04/16/18 [History Last Taken 12/15/19] albuterol sulfate 2.5 mg INHALATION Q4HWA.RT PRN 12/04/18 [History Last Taken Unknown] ipratropium-albuterol 3 ml INHALATION Q4H.RT PRN #20 ampul.neb 12/04/18 [Rx Last Taken Unknown] pregabalin 75 mg PO BID 12/15/19 [History Last Taken 12/15/19] loratadine [Claritin] 10 mg PO DAILY 11/05/20 [History Last Taken Unknown] Relafen 06/24/21 [History Last Taken Unknown] phentermine 37.5 mg PO DAILY 06/24/21 [History Last Taken Unknown] Allergy/AdvReac Type Severity Reaction Status Date / Time gabapentin [From Neurontin] Allergy Swelling Verified 06/24/21 14:18 prednisone AdvReac Other Verified 06/24/21 14:18 Surgical History (Updated 06/24/21 @ 14:[address] Osbaldo Manjarrez MD) History of bilateral tubal ligation Social History (Updated 06/24/21 @ 14:[address] Osbaldo Manjarrez MD) household members: significant other Smoking Status: Former smoker substance use type: does not use ROS ROS ED Constitutional Constitutional ED: Denies chills, fever(s), subjective, sweats or weight loss ENT ENT ED: Denies ear pain, rhinorrhea or sore throat Cardiovascular Cardiovascular: Denies chest pain or palpitations Respiratory/Chest Respiratory/Chest: Denies cough, dyspnea or dyspnea on exertion Gastrointestinal Gastrointestinal: Reports abdominal pain, nausea and other Details: Positive an orexia ; Denies constipation, diarrhea or vomiting Genitourinary Genitourinary ED: Reports LMP (females 10-50) Details: Comment: (June 13); Denies dysuria, hematuria or urinary frequency Musculoskeletal Musculoskeletal: Denies arthralgias, back pain, myalgias or neck pain Integumentary Denies rash Neurologic Neurologic: Denies headache(s) or weakness Psychiatric Psychiatric: Denies depression Endocrine Endocrinology: Denies polydipsia, polyphagia or polyuria EXAM Physical Exam Const Vital Signs: 06/24/21 14:16 06/24/21 14:18 Temperature 98 F 98 F Temperature Source Temporal Temporal Pulse Rate 99 99 Respiratory Rate 18 18 Blood Pressure 147/93 H 147/93 H Blood Pressure Mean 111 111 Pulse Ox 100 100 Oxygen Delivery Method Room Air Room Air Positive well nourished, well developed and obese General Appearance ED: well developed and NAD; Negative for pallor Nutritional Appearance: obese HEENT Reports TM's clear and dry mucous membranes normocephalic and atraumatic Tympanic Membrane ED: Yes TM's clear Mouth ED: Yes dry mucous membranes Mouth: dry mucous membranes Eyes PERRL and EOMs intact bilaterally General Eye ED: Negative for pale conjunctiva or scleral icterus Neck supple and no JVD Resp normal respiratory effort and clear to auscultation bilaterally Cardio regular rate, regular rhythm, S1 normal heart sound, S2 normal heart sound and no murmurs GI non-distended and no masses; Negative for non-tender Auscultation: Negative for normoactive bowel sounds Palpation: soft, tender McBurney's point and guarding other (Unable to determine); Negative for rigid Back/Spine no CVA tenderness Cervical Spine: Negative for cervical spine tenderness Thoracic Spine / Upper Back: Negative for thoracic spinal tenderness Extremity full ROM General Extremety ED: Negative for tenderness Neuro CN's II-XII intact bilaterally and no sensory deficits noted Sensorium / Orientation: alert, oriented to person, oriented to place and oriented to time Motor Exam: strength 5/5 throughout Psych mental status grossly normal and thought process normal Skin no wounds General Skin Exam: Negative for jaundice or pallor Lesions: no lesions Rashes: no rashes MDM MDM MDM Narrative Medical decision making narrative: With epigastric pain that is migrated to the right lower quadrant with nausea and anorexia need to evaluate for appendicitis versus other cause. Appropriate blood work was ordered. CT of the abdomen pelvis with IV contrast was ordered. Lab Data Attestation: I reviewed the patient's lab results. Lab results narrative: White count and differential are unremarkable. Patient does have mild microcytic anemia. UA is positive for ketones and occult blood and leukoesterase. Basic metabolic panel is unremarkable. Urine indicates a contaminated specimen. Labs: Laboratory Results - last 24 hr 06/24/21 06/24/21 06/24/21 14:40 14:40 14:50 WBC 5.9 RBC 4.75 Hgb 11.8 L Hct 37.1 MCV 78.1 L MCH 24.8 L MCHC 31.8 L RDW Std Deviation 42.9 RDW Coeff of Gee 15.1 H Plt Count 247 MPV 9.9 Immature Gran % (Auto) 0.300 Neut % (Auto) 64.1 Lymph % (Auto) 22.1 [place] % (Auto) 8.7 Eos % (Auto) 4.1 Baso % (Auto) 0.7 Absolute Neuts (auto) 3.8 Absolute Lymphs (auto) 1.30 Nucleated RBC % 0 Sodium 139 Potassium 3.5 Chloride 107 Carbon Dioxide 24.0 Anion Gap 8 BUN 18 Creatinine 0.84 Estim Creat Clear Calc 92.11 Est GFR (MDRD) Af Amer 96 Est GFR (MDRD) Non-Af 79 BUN/Creatinine Ratio 21.4 H Glucose 103 Calcium 8.7 Urine Color Yellow Urine Clarity Clear Urine pH 6.0 Ur Specific [employer] 1.025 Urine Protein 15 H Urine Glucose (UA) Normal Urine Ketones 50 H Urine Occult Blood 10 H Urine Nitrite Negative Urine Bilirubin Negative Urine Urobilinogen Normal Ur Leukocyte Esterase 100 H Urine RBC 0-5 SEEN Urine WBC 0-5 SEEN Ur Squamous Epith Cells 5-10 SEEN Urine Bacteria RARE Urine Mucus 0 SEEN Radiography Diagnostic Testing: Clinical Impression(s) from Imaging Studies Abdomen/Pelvis CT 06/24/21 15:18 IMPRESSION: Findings suggestive of mesenteric adenitis. The appendix is unremarkable. Electronically Signed: Mark Weaver MD at 15:42 EDT , Discharge Plan Triage Chief Complaint: Abd Pain ED Provider: Osbaldo Manjarrez Dx/Rx/DC Orders Clinical Impression: Acute mesenteric adenitis, GERD (gastroesophageal reflux disease) Instructions: ED Adenitis, Mesenteric Prescriptions: No Action omeprazole 40 capsule,delayed release(DR/EC) 40 mg PO DAILY RF: 0 albuterol sulfate 2.5 MG/3 ML solution for nebulization 2.5 mg inhalation Q4HWA.RT PRN (Reason: Sob &/Or Wheezing) RF: 0 ipratropium-albuterol 3 ML solution for nebulization 3 ml inhalation Q4H.RT PRN (Reason: Sob &/Or Wheezing) Qty: 20 RF: 0 pregabalin 75 MG capsule 75 mg PO BID RF: 0 loratadine [Claritin] 10 mg Tablet 10 mg PO DAILY RF: 0 phentermine 37.5 mg tablet 37.5 mg PO DAILY RF: 0 Relafen RF: 0 Primary Care Provider: Toi Mendez Referrals: Toi Mendez MD [Primary Care Provider] - As Needed Disposition Disposition: Home, Self Care
[2021-06-24 14:55] LABS: Absolute Neutrophil Count 3.8 X10^3/uL (2.0-7.7); Basophil# 0.04 X10^3/uL; Basophil% 0.7 % (0-1); Eosinophil# 0.24 X10^3/uL; Eosinophils% 4.1 % (0-5); Hematocrit 37.1 % (37-47); Hemoglobin 11.8 g/dL (12.0-15.0); Lymphocyte % 22.1 % (19-41); Mean Corp Hgb Conc 31.8 g/dL (32-36); Mean Corpuscular Hgb 24.8 pg (27.0-32.0); Mean Corpuscular Volume 78.1 fL (81-99); Mean Platelet Vol. 9.9 fl (6.2-12.0); Monocyte# 0.51 X10^3/uL; Monocyte% 8.7 % (0-10); NRBC Flagged by Analyzer 0 % (0-5); Neutrophil # 3.78 X10^3/uL (2.7-7.7); Neutrophil % 64.1 % (47-70); Platelet Count 247 K/mm3 (150-450); RBC Distribution Width CV 15.1 % (11.6-14.6); RBC Distribution Width SD 42.9 fl (35.1-43.9); Red Blood Count 4.75 M/mm3 (4.2-5.4); White Blood Count 5.9 K/mm3 (4.4-11.0)
[2021-06-24 15:07] LABS: Anion Gap 8 (5-15); BUN 18 mg/dL (7-18); BUN/Creat Ratio 21.4 RATIO (10-20); Calcium,Total 8.7 mg/dL (8.5-10.1); Chloride 107 mmol/L (98-107); Creatinine, Serum 0.84 mg/dL (0.55-1.02); EST Glomerular Filtration Rate 79 mL/min (>60); Est Glom Filt Rate - Afr Amer 96 mL/min (>60); Estimated Creatinine Clearance 92.11 ml/min; Glucose 103 mg/dL (74-106); Potassium 3.5 mmol/L (3.5-5.1); Sodium Level 139 mmol/L (136-145)
[2021-06-24 15:07] LABS: Mucous, Urine 0 SEEN /hpf (<or=2+)
[2021-06-24 15:09] LABS: Color, Urine Yellow (Yellow); Glucose, Dipstick Normal (Normal); Ketone-Dipstick 50 mg/dl (Negative); Leukocyte Esterase-Dipstick 100 /ul (Negative); Nitrite-Dipstick Negative (Negative); Occult Blood-Urine 10 /ul (Negative); Protein-Dipstick 15 mg/dl (Negative); Specific Gravity, Urine 1.025 (1.002-1.030); Urine Bilirubin Dipstick Negative (Negative); Urine Clarity Clear (Clear); Urine Urobilinogen Normal (Normal)
--- NOTE | 2021-06-24 15:18 | CT_ITS ---
STUDY: CT ABDOMEN AND PELVIS WITH CONTRAST REASON FOR EXAM: Female, 40 years old. Right lower quadrant abdominal pain suspect append RADIATION DOSAGE (If Supplied By Facility): CTDIvol = ( 17.07 ) mGy, DLP = ( 1442.75 ) mGycm TECHNIQUE: Transaxial images were obtained from the dome of the diaphragm to the symphysis pubis without oral contrast. IV 100mL Isovue-300 was administered. Sagittal and coronal images were reconstructed. Individualized dose optimization techniques were used for this CT. COMPARISON: Comparison is made with prior study dated 03/20/2017. FINDINGS: The visualized lung bases are unremarkable. The visualized portions of the heart are within normal limits. Normal liver. There are surgical clips in the gallbladder fossa consistent with a prior cholecystectomy. Normal spleen. Normal pancreas. Normal bilateral adrenal glands. Normal right kidney. Normal left kidney. Normal visualized stomach. Normal small intestine. Normal colon. The appendix is visualized and appears normal. Small lymph nodes are seen in the peritoneal fat in the right lower quadrant suggestive of a mesenteric adenitis. Normal abdominal aorta. Normal inferior vena cava. Normal retroperitoneum. Normal urinary bladder. There is evidence of bilateral tubal ligation. Normal abdominal wall. There are diffuse degenerative changes of the visualized lumbar spine. This is worse at the L5-S1 level. CT/Abdomen/Pelvis W IV Cont ONLY IMPRESSION: Findings suggestive of mesenteric adenitis. The appendix is unremarkable. Electronically Signed: Mark Weaver MD at 15:42 EDT ,
[2021-06-24 15:19] LABS: Bacteria RARE /hpf (None Seen); Red Blood Cells-Urine 0-5 SEEN /hpf (0-5); Squamous Epithelial Cells - UA 5-10 SEEN /hpf (5-10); White Blood Cells 0-5 SEEN /hpf (0-5)
[2021-06-24 16:07] VITALS: PULSE 88; RESP 16; O2SAT 99
== END 2021-06-24 16:08 | disposition home or self-care (01) ==
PROVIDERS: Emergency Provider Emergency Medicine; PCP Family Medicine; Visit Provider Emergency Medicine
DX: I88.0 Nonspecific mesenteric lymphadenitis (principal); R19.7 Diarrhea, unspecified; K21.9 Gastro-esophageal reflux disease without esophagitis; Z87.891 Personal history of nicotine dependence
CPT/HCPCS: 74177; 80048; 81001; 85025; 99283; Q9967; A4216

== ENCOUNTER 2021-06-27 11:15 | Emergency (ER) | payer MEDICAID, SELFPAY ==
[2021-06-27 11:16] VITALS: BP 135/95; PULSE 80; RESP 15; TEMP 36.4; O2SAT 98; BMI 59.9
[2021-06-27 11:18] VITALS: BP 135/95; PULSE 80; RESP 15; TEMP 36.4; O2SAT 98
[2021-06-27] MEDS: 0.9% Normal Saline 1,000 ML 1000 ML IV (11:38)
[2021-06-27] MEDS: Ondansetron 4 MG/2 ML Vial IV (11:41)
[2021-06-27 11:48] LABS: Absolute Lymphocyte Count 1.12 X10^3/uL (0.83-4.51); Absolute Neutrophil Count 3.2 X10^3/uL (2.0-7.7); Basophil# 0.03 X10^3/uL; Basophil% 0.6 % (0-1); Eosinophil# 0.19 X10^3/uL; Eosinophils% 3.8 % (0-5); Hematocrit 40.8 % (37-47); Hemoglobin 13.1 g/dL (12.0-15.0); Lymphocyte # 1.12 X10^3/ul (0.83-4.51); Lymphocyte % 22.6 % (19-41); Mean Corp Hgb Conc 32.1 g/dL (32-36); Mean Corpuscular Volume 77.9 fL (81-99); Mean Platelet Vol. 9.8 fl (6.2-12.0); Monocyte# 0.43 X10^3/uL; Monocyte% 8.7 % (0-10); NRBC Flagged by Analyzer 0 % (0-5); Neutrophil # 3.17 X10^3/uL (2.7-7.7); Neutrophil % 64.1 % (47-70); Platelet Count 271 K/mm3 (150-450); RBC Distribution Width SD 42.3 fl (35.1-43.9); Red Blood Count 5.24 M/mm3 (4.2-5.4)
--- NOTE | 2021-06-27 12:01 | EDS_ITS ---
HPI HPI - GI History of Present Illness Chief Complaint: Abd Pain Narrative Narrative: 40-year-old female diagnosed with mesenteric adenitis a couple of days ago presenting with nausea/vomiting. She has been able to hold down fluids but not food. She states immediately after she eats she gets cramping and bloating. She then vomits. Patient states that her has similar symptoms. Patient states that she was not getting any antiemetics for discharge. She has no pain medicine except for ibuprofen and Tylenol. She states that the pain is about the same and diffuse in her abdomen. PFSH PFSH Medical History Arthritis GERD (gastroesophageal reflux disease) Migraine Home Medications omeprazole 40 mg PO DAILY 04/16/18 [History Last Taken 12/15/19] albuterol sulfate 2.5 mg INHALATION Q4HWA.RT PRN 12/04/18 [History Last Taken Unknown] ipratropium-albuterol 3 ml INHALATION Q4H.RT PRN #20 ampul.neb 12/04/18 [Rx Last Taken Unknown] pregabalin 75 mg PO BID 12/15/19 [History Last Taken 12/15/19] loratadine [Claritin] 10 mg PO DAILY 11/05/20 [History Last Taken Unknown] Relafen 06/24/21 [History Last Taken Unknown] phentermine 37.5 mg PO DAILY 06/24/21 [History Last Taken Unknown] hydrocodone-acetaminophen 1 tab PO Q6H PRN 3 Days #10 tab 06/27/21 [Rx Last Taken Unknown] ondansetron 4 mg PO Q8H PRN #14 tab 06/27/21 [Rx Last Taken Unknown] sucralfate [Carafate] 1 g PO TID 14 Days #420 ml 06/27/21 [Rx Last Taken Unknown] Allergy/AdvReac Type Severity Reaction Status Date / Time gabapentin [From Neurontin] Allergy Swelling Verified 06/27/21 11:18 prednisone AdvReac Other Verified 06/27/21 11:18 Surgical History History of bilateral tubal ligation Social History household members: significant other Smoking Status: Former smoker substance use type: does not use ROS ROS ED Constitutional Constitutional ED: Denies chills or fever(s) ENT ENT ED: Denies rhinorrhea Cardiovascular Cardiovascular: Denies chest pain Respiratory/Chest Respiratory/Chest: Denies cough or dyspnea Gastrointestinal Gastrointestinal: Reports abdominal pain, diarrhea, nausea and vomiting Genitourinary Genitourinary ED: Denies dysuria or hematuria Musculoskeletal Musculoskeletal: Denies arthralgias or myalgias Integumentary Denies rash Neurologic Neurologic: Denies headache(s) or weakness Psychiatric Psychiatric: Denies anxiety or depression Endocrine Endocrinology: Denies polydipsia or polyuria EXAM Physical Exam Const Vital Signs: 06/27/21 11:16 06/27/21 11:18 Temperature 97.6 F L 97.6 F L Temperature Source Temporal Temporal Pulse Rate 80 80 Respiratory Rate 15 15 Blood Pressure 135/95 H 135/95 H Blood Pressure Mean 108 108 Pulse Ox 98 98 Oxygen Delivery Method Room Air Room Air Positive well nourished General Appearance ED: NAD; Negative for pallor HEENT Reports moist mucous membranes normocephalic and atraumatic Eyes PERRL and EOMs intact bilaterally General Eye ED: Negative for pale conjunctiva or scleral icterus Resp normal respiratory effort and clear to auscultation bilaterally Cardio regular rate and regular rhythm GI Inspection: other Other Details: Generalized Palpation: soft and tender Neuro Sensorium / Orientation: alert, oriented to person, oriented to place and oriented to time Psych mental status grossly normal Skin General Skin Exam: Negative for jaundice or pallor Lesions: no lesions Rashes: no rashes MDM MDM MDM Narrative Medical decision making narrative: 40-year-old female presenting with epigastric pain, nausea or vomiting. She is describing acute onset vomiting every time she eats. She does have diffuse crampy abdominal pain and does have a known diagnosis of mesenteric adenitis. She is expressing diarrhea but also states she has this chronically since her gallbladder was removed. CBC and CMP within normal limits. Patient given a liter of IV fluids, Zofran, morphine for pain, GI cocktail. She had good relief with this. Since her blood work is normal I will start her on Carafate, and she will continue her PPI. She was given Zofran for home to help with her nausea. Since she is still experiencing pain she will be given [place] for pain as needed. Patient can return precautions. Impression: 1. Nausea/vomiting 2. Mesenteric adenitis 3. Diarrhea 4. History of GERD Lab Data Attestation: I reviewed the patient's lab results. Labs: Laboratory Results - last 24 hr 06/27/21 06/27/21 11:41 11:41 WBC 5.0 RBC 5.24 Hgb 13.1 Hct 40.8 MCV 77.9 L MCH 25.0 L MCHC 32.1 RDW Std Deviation 42.3 RDW Coeff of Gee 15.0 H Plt Count 271 MPV 9.8 Immature Gran % (Auto) 0.200 Neut % (Auto) 64.1 Lymph % (Auto) 22.6 [place] % (Auto) 8.7 Eos % (Auto) 3.8 Baso % (Auto) 0.6 Absolute Neuts (auto) 3.2 Absolute Lymphs (auto) 1.12 Nucleated RBC % 0 Sodium 141 Potassium 3.7 Chloride 106 Carbon Dioxide 25.0 Anion Gap 10 BUN 15 Creatinine 0.82 Estim Creat Clear Calc 94.36 Est GFR (MDRD) Af Amer 98 Est GFR (MDRD) Non-Af 81 BUN/Creatinine Ratio 18.3 Glucose 96 Calcium 9.1 Total Bilirubin 0.40 AST 31 ALT 41 Alkaline Phosphatase 81 Total Protein 7.2 Albumin 3.5 Globulin 3.7 Albumin/Globulin Ratio 0.9 Discharge Plan Triage Chief Complaint: Abd Pain ED Provider: Matthew Carbajal Dx/Rx/DC Orders Instructions: ED Adenitis, Mesenteric Prescriptions: New ondansetron 4 mg tablet,disintegrating 4 mg PO Q8H PRN (Reason: nausea and vomiting) Qty: 14 RF: 0 sucralfate [Carafate] 100 mg/mL suspension 1 g PO TID 14 Days Qty: 420 RF: 0 hydrocodone-acetaminophen 5-325 mg tablet 1 tab PO Q6H PRN (Reason: pain) 3 Days Qty: 10 RF: 0 No Action omeprazole 40 capsule,delayed release(DR/EC) 40 mg PO DAILY RF: 0 albuterol sulfate 2.5 MG/3 ML solution for nebulization 2.5 mg inhalation Q4HWA.RT PRN (Reason: Sob &/Or Wheezing) RF: 0 ipratropium-albuterol 3 ML solution for nebulization 3 ml inhalation Q4H.RT PRN (Reason: Sob &/Or Wheezing) Qty: 20 RF: 0 pregabalin 75 MG capsule 75 mg PO BID RF: 0 loratadine [Claritin] 10 mg Tablet 10 mg PO DAILY RF: 0 phentermine 37.5 mg tablet 37.5 mg PO DAILY RF: 0 Relafen RF: 0 Primary Care Provider: Toi Mendez Referrals: Toi Mendez MD [Primary Care Provider] - Disposition Disposition: Home, Self Care
[2021-06-27 12:03] LABS: ALB/GLOB Ratio 0.9 RATIO (0.9-2.4); AST(SGOT) 31 U/L (15-37); Alanine Aminotransfer ALT/SGPT 41 U/L (13-56); Albumin, Serum 3.5 g/dL (3.2-5.0); Alkaline Phosphatase 81 U/L (45-117); Anion Gap 10 (5-15); BUN 15 mg/dL (7-18); BUN/Creat Ratio 18.3 RATIO (10-20); Calcium,Total 9.1 mg/dL (8.5-10.1); Chloride 106 mmol/L (98-107); Creatinine, Serum 0.82 mg/dL (0.55-1.02); EST Glomerular Filtration Rate 81 mL/min (>60); Est Glom Filt Rate - Afr Amer 98 mL/min (>60); Estimated Creatinine Clearance 94.36 ml/min; Globulin 3.7 g/dL (2.2-4.2); Glucose 96 mg/dL (74-106); Potassium 3.7 mmol/L (3.5-5.1); Protein, Total 7.2 g/dL (6.4-8.2); Sodium Level 141 mmol/L (136-145)
[2021-06-27] MEDS: Morphine 4 MG/ML Syringe IV (12:13)
[2021-06-27] MEDS: Mag Hydrox/Al Hydrox/Simeth 30 ML UDC PO (12:13)
== END 2021-06-27 12:47 | disposition home or self-care (01) ==
PROVIDERS: Emergency Provider Student in an Organized Health Care Education/Training Program; PCP Family Medicine; Visit Provider Student in an Organized Health Care Education/Training Program
DX: R11.2 Nausea with vomiting, unspecified (principal); I88.0 Nonspecific mesenteric lymphadenitis; R19.7 Diarrhea, unspecified; Z87.891 Personal history of nicotine dependence; Z90.49 Acquired absence of other specified parts of digestive tract; K21.9 Gastro-esophageal reflux disease without esophagitis
CPT/HCPCS: 80053; 85025; 96361; 96374; 96375; 96376; 99284; J7030; A4216; J2405

== ENCOUNTER 2022-09-30 15:10 | Emergency (ER) | payer MEDICAID, SELFPAY ==
[2022-09-30 15:11] VITALS: BP 131/70; PULSE 68; RESP 22; TEMP 36.6; O2SAT 98; BMI 40.1
[2022-09-30 15:20] VITALS: BP 120/58; PULSE 77; RESP 13; O2SAT 98
[2022-09-30 15:21] VITALS: O2SAT 97
--- NOTE | 2022-09-30 16:00 | EX.ED.DYSGE1 ---
HPI History of Present Illness Chief Complaint: Shortness of Breath Narrative Narrative: Patient presents with cough and congestion for 2 days, her son has similar symptoms. She was seen at an urgent care and given an inhaler and a Medrol Dosepak which she started this morning. She has no fevers or chills she continues to have a cough. [facility] Medical History Arthritis GERD (gastroesophageal reflux disease) Migraine Home Medications omeprazole 40 mg capsule,delayed release 40 mg PO DAILY 04/16/18 [History Last Taken 12/15/19] albuterol sulfate 2.5 mg/3 mL (0.083 %) solution for nebulization 2.5 mg inhalation Q4HWA.RT PRN Sob &/Or Wheezing 12/04/18 [History Last Taken Unknown] ipratropium 0.5 mg-albuterol 3 mg (2.5 mg base)/3 mL nebulization soln 3 ml inhalation Q4H.RT PRN Sob &/Or Wheezing ##20 12/04/18 [Rx Last Taken Unknown] pregabalin 75 mg capsule 75 mg PO BID 12/15/19 [History Last Taken 12/15/19] loratadine 10 mg tablet (Claritin) 10 mg PO DAILY 11/05/20 [History Last Taken Unknown] Relafen 06/24/21 [History Last Taken Unknown] phentermine 37.5 mg tablet 37.5 mg PO DAILY 06/24/21 [History Last Taken Unknown] hydrocodone-acetaminophen 5-325mg 5mg-325mg 1 tab PO Q6H PRN pain 3 days #10 tabs 06/27/21 [Rx Last Taken Unknown] ondansetron 4 mg disintegrating tablet 4 mg PO Q8H PRN nausea and vomiting #14 tabs 06/27/21 [Rx Last Taken Unknown] sucralfate 100 mg/mL oral suspension (Carafate) 1 g (10 mL) PO TID 14 days #420 mL 06/27/21 [Rx Last Taken Unknown] albuterol sulfate 2.5 mg/3 mL (0.083 %) solution for nebulization 2.5 mg (3 mL) inhalation Q4H PRN #25 vials 09/30/22 [Rx Last Taken Unknown] Allergy/AdvReac Type Severity Reaction Status Date / Time gabapentin [From Neurontin] Allergy Swelling Verified 09/30/22 15:11 prednisone AdvReac Other Verified 09/30/22 15:11 Surgical History History of bilateral tubal ligation Social History household members: significant other Smoking Status: Former smoker substance use type: does not use ROS ROS ED ROS Narrative Past medical history: Reviewed Medications: Reviewed Social history: Noncontributory Review of systems: General: No fever Eyes: No visual changes ENT: She does not feel upper airway congestion. Neck: No neck pain Cardiovascular: No chest pain Respiratory: Cough and congestion Gastrointestinal: No abdominal pain, nausea vomiting or diarrhea Genitourinary: No dysuria Musculoskeletal: Denies myalgias no difficulty with ambulation Skin: No rash Neurological: No memory loss, confusion or any focal weakness EXAM Physical Exam Narrative Exam Narrative: Physical exam General: Well nourished, Well developed, No Acute Distress Head: Normocephalic, Atraumatic Eyes: Conjunctiva not pale ENT: Moist mucous membranes Neck: Supple, Nontender, No lymphadenopathy Cardiovascular: Regular rate, Regular rhythm Respiratory: She is speaking in full sentences, she does have some bronchial breath sounds and bilateral slight wheezing. Abdomen: Soft, Nontender, Nondistended Back: Nontender, Normal Inspection. Negative for: CVA tenderness Extremities: Nontender, No edema Skin: Normal color, No rash Neurological: Alert, Normal Strength, Normal Sensation Const Vital Signs: 09/30/22 15:11 09/30/22 15:20 09/30/22 15:21 Temperature 97.8 F Temperature Source Temporal Pulse Rate 68 77 Respiratory Rate 22 H 13 Respiratory Effort Short of Breath Respiratory Depth Normal Respiratory Pattern Normal Blood Pressure 131/70 H 120/58 L Blood Pressure Mean 90 78 Pulse Ox 98 98 Oxygen Delivery Method Room Air Room Air Room Air 09/30/22 16:13 Temperature Temperature Source Pulse Rate 65 Respiratory Rate 18 Respiratory Effort Respiratory Depth Respiratory Pattern Normal Blood Pressure Blood Pressure Mean Pulse Ox Oxygen Delivery Method MDM MDM MDM Narrative Medical decision making narrative: Patient received a DuoNeb here and her symptoms improved. Chest x-ray is normal. She likely has bronchitis at this time I do not see any reason for antibiotics, she is to continue her steroids and I will give her prescription for albuterol for her nebulizer since she ran out. She does not meet criteria for lab work I do not believe she needs to be worked up for PE, cardiac disease or any other illness, I hear wheezing and she improved with nebulizer. Chest x-ray read by me as normal Discharge Plan Triage Chief Complaint: Shortness of Breath ED Provider: Abhishek Crowder Dx/Rx/DC Orders Clinical Impression: Cough, Bronchitis Instructions: ED Bronchitis with Wheezing (Adult) Prescriptions: New albuterol sulfate 2.5 mg /3 mL (0.083 %) solution for nebulization 2.5 mg inhalation Q4H PRN Qty: 25 0RF Rx Instructions: Use q4 hours and PRN for wheezing No Action omeprazole 40 capsule,delayed release(DR/EC) 40 mg PO DAILY albuterol sulfate 2.5 MG/3 ML solution for nebulization 2.5 mg inhalation Q4HWA.RT PRN (Reason: Sob &/Or Wheezing) ipratropium-albuterol 3 ML solution for nebulization 3 ml inhalation Q4H.RT PRN (Reason: Sob &/Or Wheezing) Qty: 20 0RF pregabalin 75 MG capsule 75 mg PO BID loratadine [Claritin] 10 mg Tablet 10 mg PO DAILY phentermine 37.5 mg tablet 37.5 mg PO DAILY Patient Comments: TAKE 1 TABLET BY MOUTH ONCE DAILY FOR 30 DAYS Relafen ondansetron 4 mg tablet,disintegrating 4 mg PO Q8H PRN (Reason: nausea and vomiting) Qty: 14 0RF sucralfate [Carafate] 100 mg/mL suspension 1 g PO TID 14 Days Qty: 420 0RF hydrocodone-acetaminophen 5-325 mg tablet 1 tab PO Q6H PRN (Reason: pain) 3 Days Qty: 10 0RF Primary Care Provider: Toi Mendez Referrals: Toi Mendez MD [Primary Care Provider] - Disposition Disposition: Home, Self Care
[2022-09-30] MEDS: Ipratropium/Albuterol Sulfate 3 ML AMPUL.NEB INHALATION (16:12)
[2022-09-30 16:13] VITALS: PULSE 65; RESP 18
--- NOTE | 2022-09-30 16:20 | RAD_ITS ---
STUDY: X-RAY CHEST REASON FOR EXAM: Female, 42 years old. cough TECHNIQUE: Single AP portable view of the chest. COMPARISON: 11/05/2020. FINDINGS: The lungs are clear and expanded. There is no demonstrated pleural abnormality. Normal size heart. Normal mediastinum and ana. Normal visualized pulmonary arteries. Normal visualized aortic arch and descending thoracic aorta. Normal visualized thoracic spine. Normal visualized ribs, clavicles, and shoulders. There is no demonstrated abnormality of the visualized soft tissue structures of the upper abdomen. RAD/Chest 1 View (Portable) IMPRESSION: Normal x-ray examination of the chest. Electronically Signed: Maksim Ortega MD at 16:59 EDT ,
[2022-09-30 16:53] VITALS: BP 118/64; PULSE 71; RESP 20; O2SAT 94
== END 2022-09-30 17:01 | disposition home or self-care (01) ==
PROVIDERS: Emergency Provider Emergency Medicine; PCP Family Medicine; Visit Provider Emergency Medicine
DX: J40 Bronchitis, not specified as acute or chronic (principal); Z87.891 Personal history of nicotine dependence; K21.9 Gastro-esophageal reflux disease without esophagitis; M19.90 Unspecified osteoarthritis, unspecified site; R05.9 Cough, unspecified
CPT/HCPCS: 71045; 94640; 99282

== ENCOUNTER 2023-02-13 18:49 | Emergency (ER) | payer SELFPAY ==
[2023-02-13 18:50] VITALS: BP 129/93; PULSE 82; RESP 14; TEMP 36.6; O2SAT 100; BMI 37.5
--- OUTSIDE RECORDS SUMMARY | 2023-02-13 21:36 | XMS RPT_ITS | CCD ---
Author Name Unknown Address [address] [place] [address] Organization [facility] Care Team Providers [facility] Worker Name Role Phone Sri Armstrong Unavailable Francine OSHEA, Toi Bolton Primary Care Provider Francine OSHEA, Toi Bolton Primary Care Provider Toi Escamilla MD Primary Care Provider Francine OSHEA, Toi Bolton Primary Care Provider SANTANA FLORES Attending Unavailable FRANCINE, TOI Bolton Primary Care Unavailable MAKEDA SMITH Attending Unavailable TOI ESCAMILLA Primary Care Unavailable ALISON JULES Attending Unavailable FRANCINE, TOI Bolton Primary Care Unavailable FRANCINE, TOI Bolton Primary Care Unavailable TOI ESCAMILLA Referring Unavailable LEIGH MOREL Attending Unavailable FRANCINETOI Primary Care Unavailable TOI ESCAMILLA Primary Care Unavailable SHERRI COLLAZO Attending Unavailable FRANCINETOI Primary Care Unavailable FRANCINE, TOI Bolton Primary Care Unavailable FRANCINETOI Referring Unavailable FRANCINE, TOI Bolton Primary Care Unavailable FRANCINETOI Primary Care Unavailable TOI ESCAMILLA Referring Unavailable FRANCINE, TOI Bolton Primary Care Unavailable TOI ESCAMILLA Referring Unavailable VIVIANA MARIE Attending Unavailable FRANCINE, TOI Bolton Primary Care Unavailable FRANCINE, TOI Bolton Primary Care Unavailable AMINIAN, ALI Admitting Unavailable AMINIAN, ALI Attending Unavailable AMINIAN, ALI Referring Unavailable FRANCINE, TOI Bolton Primary Care Unavailable AMINIAN, ALI Referring Unavailable FRANCINE, TOI Bolton Primary Care Unavailable JOHNIAN, ALI Referring Unavailable FRANCINE, TOI Bolton Primary Care Unavailable FRANCINE, TOI Bolton Primary Care Unavailable ANTHONY DAWSON Attending Unavailable FRANCINE, TOI Bolton Primary Care Unavailable FRANCINE, TOI Bolton Primary Care Unavailable TOI ESCAMILLA Attending Unavailable FRANCINE, TOI J Primary Care Unavailable TOI ESCAMILLA Attending Unavailable TOI ESCAMILLA Primary Care Unavailable TOI ESCAMILLA Attending Unavailable Allergies Allergy Classification Reported Allergen(s) Allergy Type Date of Onset Reaction(s) Facility (1 source) gabapentin Drug Allergy 02-16-19 13 [facility] Work Phone: (20 sources) predniSONE; Translations: [PREDNISONE] Drug Allergy 04-18-19 16 Mental Status Change [facility] Work Phone: (1 source) Seasonal allergy; Translations: [SEASONAL] allergy to substance 02-16-[address] [facility] Work Phone: (1 source) topiramate Drug Allergy 09-23-[address] [facility] Work Phone: (20 sources) gabapentin; Translations: [GABAPENTIN] Drug Allergy 04-14-19 15 Other: See Comments [place] (20 sources) topiramate; Translations: [TOPIRAMATE] Drug Allergy 12-13-19 17 Other: See Comments [place] Work Phone: (20 sources) environmental [Other] Propensity to adverse reactions 06-27-19 06 [place] Work Phone: (1 source) OTHER; Translations: [OTHER] Propensity to adverse reactions (disorder) 06-27-19 06 [facility] Medications Current Medications Medication Drug Class(es) Dates Sig (Normalized) Sig (Original) amoxicillin 500 mg oral capsule (1 source) Penicillin-class Antibacterial Start: 02-22-2022 End: 03-04-2022 take 1 capsule by mouth twice daily amoxicillin (POLYMOX, AMOXIL) 500 mg capsule Take 1 capsule by mouth twice daily for 10 days. 20 capsule 0 02/22/2022 03/04/2022 Active Completed/Discontinued Medications Medication Drug Class(es) Dates Sig (Normalized) Sig (Original) [id number] 200 actuat albuterol 0.09 mg/actuat metered dose inhaler (20 sources) beta2-Adrenergic Agonist Start: 04-16-2021 End: 08-21-2023 take 2 puff(s) by inhalation every four hours as needed albuterol HFA (PROAIR HFA) 90 mcg/actuation inhaler Inhale 2 Puffs as instructed every 4 hours as needed. 18 g 0 04/16/2021 2022 Discontinued Problems Active Problems Problem Classification Problem Date Documented Da te Episodic/Chronic Abdominal pain (1 source) Abdominal pain; Translations: [Unspecified abdominal pain] Episodic Acute bronchitis (2 sources) Viral bronchitis; Translations: [Acute bronchitis due to other specified organisms] 2022 Episodic Asthma (20 sources) Mild intermittent asthma; Translations: [Mild intermittent asthma, uncomplicated] 03-19-2018 Chronic Cardiac dysrhythmias (20 sources) Supraventricular tachycardia; Translations: [Supraventricular tachycardia] Onset: 2 03-04-2021 Chronic Diseases of mouth; excluding dental (2 sources) Chapping of lips; Translations: [Diseases of lips] Episodic Esophageal disorders (20 sources) Gastroesophageal reflux disease without esophagitis; Translations: [Gastro-esophageal reflux disease without esophagitis] Onset: 6 06-01-2015 Chronic Headache; including migraine (20 sources) Migraine; Translations: [Migraine, unspecified, not intractable, without status migrainosus] Onset: 5 02-04-2021 Chronic Joint disorders and dislocations; trauma-related (20 sources) Derangement of knee; Translations: [Internal derangement of knee] Onset: 6 12-10-2005 Chronic Menstrual disorders (2 sources) Irregular periods; Translations: [Irregular menstruation, unspecified] Onset: 3 Chronic Osteoarthritis (20 sources) Osteoarthritis of multiple joints ; Translations: [Polyosteoarthritis, unspecified] Onset: 2 05-06-2021 Chronic Other aftercare (3 sources) Patient encounter status; Translations: [Other mcc (current) drug therapy] Episodic Other aftercare (1 source) Surgical follow-up; Translations: [Encounter for surgical aftercare following surgery on the digestive system] Episodic Other gastrointestinal disorders (5 sources) History of bariatric surgical procedure; Translations: [Bariatric surgery status] Episodic Other gastrointestinal disorders (1 source) History of bypass of stomach; Translations: [Bariatric surgery status] Episodic Other injuries and conditions due to external causes (1 source) Allergic condition; Translations: [Allergy, unspecified, subsequent encounter] Episodic Other nervous system disorders (1 source) Lesion of ulnar nerve, left upper limb; Translations: [Lesion of ulnar nerve] Chronic Other non-traumatic joint disorders (20 sources) Disorder of joint of ankle and/or foot; Translations: [Other specific joint derangements of unspecified ankle, not elsewhere classified] Onset: 5 05-12-2014 Chronic Other nutritional; endocrine; and metabolic disorders (20 sources) Severe obesity; Translations: [Morbid (severe) obesity due to excess calories] Onset: 9 Chronic Other nutritional; endocrine; and metabolic disorders (20 sources) Morbid obesity; Translations: [Morbid (severe) obesity due to excess calories] Onset: 2 05-06-2021 Chronic Other nutritional; endocrine; and metabolic disorders (1 source) Morbid (severe) obesity due to excess calories; Translations: [Class 3 severe obesity with serious comorbidity and body mass index (BMI) of 60.0 to 69.9 in adult, unspecified obesity type (HCC)] Onset: 2 Chronic Other nutritional; endocrine; and metabolic disorders (1 source) Body mass index (BMI) 60.0-69.9, adult; Translations: [Class 3 severe obesity with serious comorbidity and body mass index (BMI) of 60.0 to 69.9 in adult, unspecified obesity type (HCC)] Onset: 2 Chronic Other nutritional; endocrine; and metabolic disorders (1 source) Body weight problem; Translations: [Other symptoms and signs concerning food and fluid intake] Episodic Other skin disorders (1 source) Eruption; Translations: [Rash and other nonspecific skin eruption] Episodic Other upper respiratory disease (20 sources) Seasonal allergy; Translations: [Other seasonal allergic rhinitis] Onset: 5 10-09-2014 Chronic Other upper respiratory infections (2 sources) Sore throat symptom; Translations: [Acute pharyngitis, unspecified] Episodic Residual codes; unclassified (1 source) Did not attend; Translations: [No-show for appointment] Episodic Spondylosis; intervertebral disc disorders; other back problems (2 sources) Cervical radiculopathy; Translations: [Degeneration of cervical intervertebral disc] Onset: 0 09-27-2019 Chronic Superficial injury; contusion (1 source) Abrasion of face; Translations: [Abrasion of other part of head, subsequent encounter] Episodic Unclassified (1 source) No-show for appointment; Translations: [No-show for appointment] Onset: 2 Viral infection (2 sources) Recurrent herpes simplex labialis; Translations: [Herpesviral vesicular dermatitis] Episodic Past or Other Problems Problem Classification Problem Date Documented Da te Episodic/Chronic Administrative/social admission (20 sources) Reduced mobility; Translations: [Other reduced mobility] Onset: 2 05-06-2021 Episodic Cardiac dysrhythmias (20 sources) Palpitations; Translations: [Palpitations] Onset: 2 03-04-2021 Episodic Conditions associated with dizziness or vertigo (2 sources) Lightheadedness; Translations: [Dizziness and giddiness] Onset: 3 Episodic Diabetes mellitus without complication (2 sources) Hyperglycemia; Translations: [Hyperglycemia, unspecified] Onset: 3 Episodic Nonspecific chest pain (20 sources) Chest pain; Translations: [Chest pain, unspecified] Onset: 2 03-04-2021 Episodic Other connective tissue disease (20 sources) Enthesopathy of ankle AND/OR tarsus; Translations: [Other enthesopathy of unspecified foot and ankle] Onset: 5 05-12-2014 Episodic Other connective tissue disease (20 sources) Plantar fasciitis; Translations: [Plantar fascial fibromatosis] Onset: 5 02-04-2021 Episodic Other gastrointestinal disorders (20 sources) History of gastroesophageal reflux disease; Translations: [Personal history of other diseases of the digestive system] Onset: 2 05-06-2021 Episodic Other gastrointestinal disorders (2 sources) Bariatric surgery status; Translations: [Gastric bypass status for obesity] Onset: 2 Episodic Other injuries and conditions due to external causes (1 source) Allergy, unspecified, subsequent encounter; Translations: [Allergy, subsequent encounter] Onset: 3 Episodic Other lower respiratory disease (20 sources) Dyspnea; Translations: [Shortness of breath] Onset: 2 03-04-2021 Episodic Other screening for suspected conditions (not mental disorders or infectious disease) (1 source) Encounter for screening mammogram for malignant neoplasm of breast; Translations: [Encounter for screening mammogram for breast cancer] Onset: 3 Episodic Spondylosis; intervertebral disc disorders; other back problems (20 sources) Cervical radiculopathy; Translations: [Radiculopathy, cervical region] Onset: 0 2019 Episodic Sprains and strains (20 sources) Lumbar sprain; Translations: [Sprain of ligaments of lumbar spine, initial encounter] Onset: 5 01-19-2015 Episodic Unclassified (1 source) Problem Results Test Name Value Interpretation Reference Range Facil ity Vital Signs Date Time Vital Sign Value Performing Clinician Facility 10-03-2022 13:00-0400 Body temperature 98.2 [degF] Anthony Spear [employer] Work Phone: [place] 10-03-2022 13:00-0400 Body weight 124.74 kg Anthony Spear [employer] Work Phone: [place] 10-03-2022 13:00-0400 Diastolic blood pressure 75 mm[Hg] Anthony Spear [employer] Work Phone: [place] 10-03-2022 13:00-0400 Heart rate 75 /min Anthony Spear [employer] Work Phone: [place] 10-03-2022 13:00-0400 Respiratory rate 20 /min Anthony Spear [employer] Work Phone: [place] 10-03-2022 13:00-0400 SaO2% (BldA) [Mass fraction] 97 % Anthony Spear [employer] Work Phone: [place] 10-03-2022 13:00-0400 Systolic blood pressure 133 mm[Hg] Anthony Spear [employer] Work Phone: [place] 2022 11:45-0400 Body temperature 98.2 [degF] Suma Luque [employer]ER.[employer] Work Phone: [place] 2022 11:45-0400 Body weight 124.83 kg Suma Praisler-Wood [employer]ER.[employer] Work Phone: [place] 2022 11:45-0400 Diastolic blood pressure 79 mm[Hg] Suma Praisler-Wood [employer]ER.[employer] Work Phone: [place] 2022 11:45-0400 Heart rate 121 /min Suma Praisler-Wood [employer]ER.[employer] Work Phone: [place] 2022 11:45-0400 Respiratory rate 18 /min Suma Praisler-Wood R[employer] SH[employer]ER.[employer] Work Phone: [place] 2022 11:45-0400 SaO2% (BldA) [Mass fraction] 93 % Suma Praisler-Wood R[employer]ER.[employer] Work Phone: [place] 2022 11:45-0400 Systolic blood pressure 124 mm[Hg] Suma Praisler-Wood [employer] Work Phone: [place] 06-11-2022 11:42-0400 Body height 175.3 cm Toi Escamilla MD Work Phone: [place] 06-11-2022 11:42-0400 Body weight 126.55 kg Toi Escamilla MD Work Phone: [place] 06-11-2022 11:42-0400 Diastolic blood pressure 68 mm[Hg] Toi Escamilla MD Work Phone: [place] 06-11-2022 11:42-0400 Heart rate 60 /min Toi Escamilla MD Work Phone: [place] 06-11-2022 11:42-0400 SaO2% (BldA) [Mass fraction] 98 % Toi Escamilla MD Work Phone: [place] 06-11-2022 11:42-0400 Systolic blood pressure 110 mm[Hg] Toi Escamilla MD Work Phone: [place] 05-22-2022 11:26-0400 Body height 175.3 cm Toi Escamilla MD Work Phone: [place] 05-22-2022 11:26-0400 Body weight 127.91 kg Toi Escamilla MD Work Phone: [place] 05-22-2022 11:26-0400 Diastolic blood pressure 64 mm[Hg] Toi Escamilla MD Work Phone: [place] 05-22-2022 11:26-0400 Heart rate 71 /min Toi Escamilla MD Work Phone: [place] 05-22-2022 11:26-0400 SaO2% (BldA) [Mass fraction] 99 % Toi Escamilla MD Work Phone: [place] 05-22-2022 11:26-0400 Systolic blood pressure 104 mm[Hg] Toi Escamilla MD Work Phone: [place] 04-11-2022 11:48-0500 Body weight 133.36 kg Alisonchristi Jules Work Phone: [place] 03-31-2022 13:57-0500 Body weight 136.62 kg Makeda Albion [employer] Work Phone: [place] 03-31-2022 13:57-0500 Diastolic blood pressure 64 mm[Hg] Makeda Albion [employer]ER.[employer] Work Phone: [place] 03-31-2022 13:57-0500 Systolic blood pressure 100 mm[Hg] Makeda Lynn [employer] Work Phone: [place] 02-22-2022 12:36-0500 Body temperature 99.1 [degF] Jacqueline Boston APRN.[employer] Work Phone: [place] 02-22-2022 12:36-0500 Body weight 142.7 kg Jacqueline Boston APRN.[employer] Work Phone: [place] 02-22-2022 12:36-0500 Diastolic blood pressure 70 mm[Hg] Jacqueline Boston [employer] Work Phone: [place] 02-22-2022 12:36-0500 Heart rate 84 /min Jacqueline Boston [employer] Work Phone: [place] 02-22-2022 12:36-0500 Respiratory rate 18 /min Jacqueline Boston R[employer] Work Phone: [place] 02-22-2022 12:36-0500 SaO2% (BldA) [Mass fraction] 98 % Jacqueline Boston [employer] Work Phone: [place] 02-22-2022 12:36-0500 Systolic blood pressure 122 mm[Hg] Jacqueline Boston [employer] Work Phone: [place] 12-10-2021 11:38-0400 Diastolic blood pressure 82 mm[Hg] Viviana Haagen [employer]ER.[employer] Work Phone: [place] 12-10-2021 11:38-0400 Heart rate 72 /min Viviana Haagen [employer]ER.[employer] Work Phone: [place] 12-10-2021 11:38-0400 Respiratory rate 18 /min Viviana Haagen RUG SHAMP[employer]ER.[employer] Work Phone: [place] 12-10-2021 11:38-0400 SaO2% (BldA) [Mass fraction] 97 % Viviana Marie R[employer] SHAMP[employer]ER.[employer] Work Phone: [place] 12-10-2021 11:38-0400 Systolic blood pressure 124 mm[Hg] Viviana Haagen [employer]ER.[employer] Work Phone: [place] 10-23-2021 13:30-0400 Diastolic blood pressure 69 mm[Hg] Nurse 5 Work Phone: [place] 10-23-2021 13:30-0400 Heart rate 71 /min Nurse 5 Work Phone: [place] 10-23-2021 13:30-0400 Respiratory rate 20 /min Nurse 5 Work Phone: [place] 10-23-2021 13:30-0400 SaO2% (BldA) [Mass fraction] 100 % Nurse 5 Work Phone: [place] 10-23-2021 13:30-0400 Systolic blood pressure 128 mm[Hg] Nurse 5 Work Phone: [place] 10-23-2021 10:04-0400 Body temperature 97.3 [degF] Nurse 5 Work Phone: [place] 10-18-2021 10:45-0400 Body height 175.3 cm Rossy Olivia HANNA [facility] 10-18-2021 10:45-0400 Body weight 166.92 kg Rossy Olivia HANNA [facility] 09-18-2021 11:36-0400 Body height 175.3 cm Pacc 1 Work Phone: [place] 09-18-2021 11:36-0400 Body temperature 97.9 [degF] Pacc 1 Work Phone: [place] 09-18-2021 11:36-0400 Body weight 178.72 kg Pacc 1 Work Phone: [place] 09-18-2021 11:36-0400 Diastolic blood pressure 72 mm[Hg] Pacc 1 Work Phone: [place] 09-18-2021 11:36-0400 Heart rate 101 /min Pacc 1 Work Phone: [place] 09-18-2021 11:36-0400 Respiratory rate 16 /min Pacc 1 Work Phone: [place] 09-18-2021 11:36-0400 SaO2% (BldA) [Mass fraction] 96 % Pacc 1 Work Phone: [place] 09-18-2021 11:36-0400 Systolic blood pressure 118 mm[Hg] Pacc 1 Work Phone: [place] 08-06-2021 11:31-0400 Diastolic blood pressure 84 mm[Hg] Viviana Marie APRN.CNP Work Phone: [place] 08-06-2021 11:31-0400 Heart rate 92 /min Viviana Marie [employer] Work Phone: [place] 08-06-2021 11:31-0400 Respiratory rate 18 /min Viviana Marie [employer] Work Phone: [place] 08-06-2021 11:31-0400 SaO2% (BldA) [Mass fraction] 99 % Viviana Marie [employer] Work Phone: [place] 08-06-2021 11:31-0400 Systolic blood pressure 126 mm[Hg] Viviana Marie [employer] Work Phone: [place] 07-30-2021 08:49-0400 Body height 175.[address] Work Phone: [place] 07-30-2021 08:49-0400 Body weight 181.[address] Work Phone: [place] 07-24-2021 11:45-0400 Body height 175.3 cm Cris Vacco [employer] Work Phone: [place] 07-24-2021 11:45-0400 Body weight 181.44 kg Cris Vacco [employer] Work Phone: [place] 07-15-2021 08:54-0400 Body weight 184.61 kg Donald Pearl MD Work Phone: [place] 07-15-2021 08:54-0400 Diastolic blood pressure 74 mm[Hg] Donald Pearl MD Work Phone: [place] 07-15-2021 08:54-0400 Heart rate 78 /min Donald Pearl MD Work Phone: [place] 07-15-2021 08:54-0400 Respiratory rate 18 /min Donald Pearl MD Work Phone: [place] 07-15-2021 08:54-0400 SaO2% (BldA) [Mass fraction] 98 % Donald Pearl MD Work Phone: [place] 07-15-2021 08:54-0400 Systolic blood pressure 118 mm[Hg] Donald Pearl MD Work Phone: [place] 06-24-2021 13:26-0400 Body temperature 97.2 [degF] Starr Leanna [employer] Work Phone: [place] 06-24-2021 13:26-0400 Body weight 188.06 kg Starr Leanna [employer] Work Phone: [place] 06-24-2021 13:26-0400 Diastolic blood pressure 82 mm[Hg] Starr Leanna [employer] Work Phone: [place] 06-24-2021 13:26-0400 Heart rate 79 /min Starr Leanna [employer] Work Phone: [place] 06-24-2021 13:26-0400 Respiratory rate 21 /min Starr Leanna [employer] Work Phone: [place] 06-24-2021 13:26-0400 SaO2% (BldA) [Mass fraction] 98 % Starr Leanna [employer] Work Phone: [place] 06-24-2021 13:26-0400 Systolic blood pressure 124 mm[Hg] Starr Leanna [employer] Work Phone: [place] 06-18-2021 14:15-0400 Body height 168.9 cm Alison Cetin DO Work Phone: [place] 06-18-2021 14:15-0400 Body weight 187.34 kg Alison Cetin DO Work Phone: [place] 06-18-2021 14:15-0400 Diastolic blood pressure 76 mm[Hg] Alison Cetin DO Work Phone: [place] 06-18-2021 14:15-0400 Heart rate 100 /min Alison Cetin DO Work Phone: [place] 06-18-2021 14:15-0400 Systolic blood pressure 140 mm[Hg] Alison Cetin DO Work Phone: [place] 05-22-2021 10:59-0400 Body height 175.[address] Work Phone: [place] 05-22-2021 10:59-0400 Body weight 191.[address] Work Phone: [place] 05-21-2021 16:11-0400 Body height 173.2 cm Alison Cetin DO Work Phone: [place] 05-21-2021 16:11-0400 Body weight 191.87 kg Alison Cetin DO Work Phone: [place] 05-21-2021 16:11-0400 Diastolic blood pressure 84 mm[Hg] Alison Cetin DO Work Phone: [place] 05-21-2021 16:11-0400 Heart rate 86 /min Alison Cetin DO Work Phone: [place] 05-21-2021 16:11-0400 Systolic blood pressure 138 mm[Hg] Alison Cetin DO Work Phone: [place] NEGATED: Highlighted [id number] 10:42-0400 BMI (Body Mass Index) 62.26 kg/m2 Shirley Gabi AT [facility] Work Phone: NEGATED: Highlighted [id number] 10:42-0400 Body weight 185 kg Shirley Gabi AT [facility] Work Phone: NEGATED: Highlighted [id number] 10:42-0400 Body weight 185.07 kg Shirley Gabi AT [facility] Work Phone: NEGATED: Highlighted [id number] 10:42-0400 Height 173 cm Shirley Gabi AT [facility] Work Phone: NEGATED: Highlighted [id number] 10:42-0400 Height 172.72 cm Shirley Ashley AT [facility] Work Phone: Encounters Encounter Date Encounter Type Care Provider Facility Start: 10-03-2022 End: 10-03-2022 ambulatory TOI Bolton FRANCINE Facility:[facility] Start: 10-03-2022 End: 10-03-2022 Office outpatient visit 25 minutes Anthony Spear APRN.[employer] Work Phone: [facility] Procedures Date Procedure Procedure Detail Performing Clinician Start: 03-07-2022 End: 03-07-2022 Mammography Bulk Order Provider Start: 02-22-2022 STREP A MOLECULAR (POC) Tri Johnston MA Start: 05-01-2021 Adult depression screening assessment Alison Jules DO Work Phone: Start: 09-27-2019 End: 09-27-2019 Blood pressure screening not performed - reason not given Sri Duran [employer] Work Phone: Start: 09-27-2019 End: 09-27-2019 BMI documented as above normal parameters - follow-up documented Sri Duran [employer] Work Phone: Start: 09-27-2019 End: 09-27-2019 Documentation of current medications Sri Duran [employer] Work Phone: Start: 09-27-2019 End: 09-27-2019 Pain assessment documented as positive - follow-up documented Sri Duran [employer] Work Phone: Start: 09-27-2019 End: 09-27-2019 Tobacco non-user Sri Duran [employer] Work Phone: NEGATED: Highlighted rowStart: 09-27-2019 End: 09-27-2019 Documentation of current medications Shirley Ashley AT Plan of Treatment Date Care Activity Detail Author Start: 08-07-2024 HPV TESTING HPV TESTING [place] Start: 08-07-2024 PAP TESTING PAP TESTING [place] Start: 06-28-2023 ANNUAL PCP TEAM CHRONIC DISEASE VISIT ANNUAL PCP TEAM CHRONIC DISEASE VISIT [place] Start: 06-12-2023 ANNUAL PCP TEAM CHRONIC DISEASE VISIT ANNUAL PCP TEAM CHRONIC DISEASE VISIT [place] Start: 06-06-2023 ANNUAL PCP TEAM CHRONIC DISEASE VISIT ANNUAL PCP TEAM CHRONIC DISEASE VISIT [place] Start: 05-23-2023 ANNUAL PCP TEAM CHRONIC DISEASE VISIT ANNUAL PCP TEAM CHRONIC DISEASE VISIT [place] Start: 03-07-2023 Mammography [place] Start: 01-18-2023 ANNUAL PCP TEAM CHRONIC DISEASE VISIT ANNUAL PCP TEAM CHRONIC DISEASE VISIT [place] Start: 12-10-2022 ANNUAL PCP TEAM CHRONIC DISEASE VISIT ANNUAL PCP TEAM CHRONIC DISEASE VISIT [place] Start: 10-10-2022 Covid-19 Vaccine () Covid-19 Vaccine () [place] Start: 10-10-2022 Influenza vaccination [place] Start: 08-06-2022 ANNUAL PCP TEAM CHRONIC DISEASE VISIT ANNUAL PCP TEAM CHRONIC DISEASE VISIT [place] Start: 07-15-2022 ANNUAL PCP TEAM CHRONIC DISEASE VISIT ANNUAL PCP TEAM CHRONIC DISEASE VISIT [place] Start: 06-16-2022 End: 08-16-2022 Hemoglobin A1c in Blood HGB A1C Lab Routine Hyperglycemia Expected: 06/16/2022, Expires: 08/16/2022 [facility] Work Phone: Immunizations Immunization Date Immunization Notes Care Provider Fa cility 11-07-2020 influenza, injectabl e, quadrivalent, contains preservative Alison Jules DO Work Phone: [place] 11-07-2020 influenza virus vacc ine, unspecified formulation Screen Wstr [place] 04-26-2020 COVID-19 vaccine, ag e 12+ yr (PFIZER-BIONTECH - PURPLE TOP) Alison Bairdin DO Work Phone: [place] 04-05-2020 COVID-19 vaccine, ag e 12+ yr (PFIZER-BIONTECH - PURPLE TOP) Alison Bairdin DO Work Phone: [place] 11-03-2019 influenza, injectabl e, quadrivalent, contains preservative Alisonchristi Bairdin DO Work Phone: [place] 06-28-2013 tetanus and diphther ia toxoids, adsorbed, preservative free, for adult use (2 Lf of tetanus toxoid and 2 Lf of diphtheria toxoid) Alison Jules DO Work Phone: [place] Payers Date Payer Category Payer Medicaid [id number] 2022 Medicaid [id number] 2020 Medicaid [employer] [employer] [id number] 2020-Present [phone] [address] [place] [address] Medicaid [id number] 2020 Medicaid [id number] 2020 Medicaid [id number] Social History Date Type Detail Facility Start: 09-27-2019 End: 09-27-2019 Assertion Unknown if ever smoked [facility] Work Phone: Start: 07-19-2015 End: 09-18-2021 Tobacco smoking status NHIS Ex-smoker [place] Start: 03-19-1990 End: 02-09-2014 History of tobacco use Current smoker [place] Start: 03-19-1990 End: 02-09-2014 History of tobacco use Cigarette Smoker [place] Start: 07-19-2015 End: 02-22-2022 Cigarettes smoked current (pack per day) - Reported 0.25 [place] Start: 07-19-2015 End: 09-18-2021 Tobacco use and exposure Smokeless tobacco non-user [facility] Start: 05-21-2021 End: 02-22-2022 Alcohol intake Current drinker of alcohol (finding) [facility] Start: 04-23-2021 End: 01-17-2022 History SDOH Alcohol Frequency 2 [place] Start: 04-23-2021 End: 01-17-2022 History SDOH Alcohol Std Drinks 1 [place] Start: 03-19-2018 History SDOH Alcohol Comment rarely [place] Start: 04-23-2021 End: 01-17-2022 History SDOH Social Connections Phone 5 [place] Start: 04-23-2021 End: 01-17-2022 History SDOH Social Connections Meetings 3 [place] Start: 04-23-2021 End: 01-17-2022 History SDOH Social Connections Living 8 [place] Start: 04-23-2021 History SDOH Financial 4 [place] Start: 06-24-2019 Education 21 [place] Start: 1980 Sex Assigned At Female [facility] Start: 05-11-2021 End: 12-10-2021 Exposure to SARS-CoV-2 (event) Not sure [facility] Start: 06-14-2021 End: 06-24-2021 Exposure to SARS-CoV-2 (event) Yes [place] Start: 09-18-2021 Tobacco Comment quit in 05/15 [place] Start: 01-17-2022 History SDOH Alcohol Std Drinks 0 [place] Start: 01-17-2022 End: 02-22-2022 Social connection and isolation panel [facility] Are you now , , , , never or living with a partner? Living with partner [place] How often to you hav e a drink containing alcohol? Never [place] How many standard drinks containing alcohol do you have on a typical day? Patient does not drink [place] How hard is it for y ou to pay for the very basics like food, housing, medical care, and heating Somewhat hard [place] Do you feel stress - tense, restless, nervous, or anxious, or unable to sleep at night because your mind is troubled all the time - these days [OSQ] Not at all [place] (I/We) worried wheth er (my/our) food would run out before (I/we) got money to buy more. Never true [place] At any time in the p ast 12 months, were you homeless or living in halfway [including now]? No [place] Start: 09-20-2019 Gender identity Identifies as female gender (finding) [facility] Start: 09-20-2019 Sexual orientation Heterosexual (finding) [facility] Clinical Notes 12-07-2017 to 10-03-2022 Patient InstructionsAnthony Spear APRN.[facility] - 10/03/2022 1:04 PM EDTTelephone Encounter - Roscoejason Chaparro Diane - 09/30/2022 2:26 PM EDTPraisler-Suma Alas APRN.[facility]EM[facility] - 2022 12:00 PM EDT Note Date & Type Note Facility 10-03-2022 Note HNO ID: [id number] Author: Anthony Spear APRN.[employer] Service: ? Author Type: Nurse Practitioner Type: Progress Notes Filed: 10/03/2022 1:25 PM Note Text: Subjective HPI Nontoxic-appearing female presents urgent care chief complaint cough nasal congestion duration of symptoms 1 week. Associated symptoms listed above. States son has similar signs symptoms. Was seen here on Thursday. Was seen in ED on Thursday. Placed on nebulizer steroids and doxycycline. Presents today due to persistent symptoms. Has not used any other OTC medications. Denies any pain. Most bothersome symptom today is cough. Denies any fever body aches chills productive cough chest pain shortness of breath pleuritic pain hemoptysis nausea vomiting abdominal pain change in bowel or bladder habits. Past medical history prescription medication use and allergies reviewed. .Patient presents with: Cough: Chest congestion x1 wegunjan, [facility] 09/30 PAST MEDICAL HISTORY Diagnosis Date Autoimmune disease (HCC) Degeneration of intervertebral disc, site unspecified Depression Migraines Mild intermittent asthma Obesity Osteoarthritis of both knees Plantar fasciitis Psoriasis PAST SURGICAL HISTORY Procedure Laterality Date ADENOIDECTOMY PRIMARY Adenoidectomy DELIVERY ONLY , low cervical LAPAROSCOPY SURG CHOLECYSTECTOMY 2013 PAST SURGICAL HISTORY OF Bilateral arthoscopy to ankles, scar tissue removal and tendon lengthening TONSILLECTOMY PRIMARY/SECONDARY Tonsillectomy ALLERGIES Environmental [Other], Gabapentin, Prednisone, and Topamax [Topiramate] MEDICATIONS doxycycline hyclate (VIBRAMYCIN) 100 mg capsule Take 1 capsule by mouth every 12 hours. methylPREDNISolone (MEDROL, OLIVIER,) 4 mg Dose-Pack Follow dosing instructions, take with food. albuterol HFA (PROAIR HFA) 90 mcg/actuation inhaler Inhale 2 Puffs as instructed every 4 hours as needed. valACYclovir (VALTREX) 500 mg tablet Take 4 tablets twice daily X 1 day. Then start one tablet by mouth daily thereafter. cefADROxil (DURICEF) 500 mg capsule Take 1 capsule by mouth twice daily. fexofenadine (LAKISHA ALLERGY) 180 mg tablet Take 1 tablet by mouth once daily. cyclobenzaprine (FLEXERIL) 10 mg tablet Take 1 tablet by mouth three times daily as needed. pregabalin (LYRICA) 75 mg capsule Take 1 capsule by mouth twice daily for 30 days. norethindrone (AYGESTIN) 5 mg tablet Take 1 tablet by mouth twice daily for 7 days. cyanocobalamin (VITAMIN B-12) 100 mcg tab Take 100 mcg by mouth once daily. ergocalciferol, vitamin D2, (VITAMIN D2 ORAL) Take by mouth. MULTIVITAMIN NO.43-IRON-FA ORAL Take by mouth. ondansetron (ZOFRAN) 4 mg tablet Take 1 tablet by mouth once daily as needed for nausea/vomiting (for nausea.) for up to [address] (PROTONIX) 40 mg tablet Take 1 tablet by mouth once daily. To be taken for 1 year after the surgery (Patient not taking: Reported on 06/11/2022) albuterol (PROVENTIL) 2.5 mg /3 mL (0.083 %) nebulizer solution Use 3 mL via nebulizer every 4 hours as needed for wheezing/shortness of breath. SUMAtriptan (IMITREX) 100 mg tablet Take 1 tablet by mouth as needed. START AT ONSET OF HEADACHE. MAY REPEAT DOSE AFTER 2 HOURS. ammonium lactate (AMLACTIN) 12 % lotion apply to rash 2-3 times a day as needed FAMILY HISTORY Problem Relation Age of Onset Diabetes Maternal Grandmother Diabetes Maternal Uncle Social History Tobacco Use Smoking status: Former Packs/day: 0.25 Years: 24.00 Additional pack years: 0.00 Total pack years: 6.00 Types: Cigarettes Start date: 03/19/1990 Quit date: 2014 Years since quittin.6 Smokeless tobacco: Never Tobacco comments: quit in 05/15 Vaping Use Vaping Use: Never used Substance Use Topics Alcohol use: Yes Comment: rarely Drug use: No BP 133/75 Pulse 75 Temp 36.8 ?C (98.2 ?F) Resp 20 Wt 124.7 kg (275 lb) LMP 03/15/2022 SpO2 97% BMI 40.61 kg/m? Review of Systems Constitutional: Positive for malaise/fatigue. Negative for chills and fever. HENT: Positive for congestion. Negative for ear discharge, ear pain, sinus pain and sore throat. Eyes: Negative for blurred vision, pain, discharge and redness. Respiratory: Positive for cough. Negative for hemoptysis, sputum production, shortness of breath, wheezing and stridor. Cardiovascular: Negative for chest pain. Gastrointestinal: Negative for abdominal pain, diarrhea, nausea and vomiting. Musculoskeletal: Positive for myalgias. Skin: Negative for itching and rash. Neurological: Negative for dizziness and headaches. Objective Physical Exam Constitutional: General: She is not in acute distress. Appearance: She is not diaphoretic. HENT: Head: Normocephalic. Jaw: No trismus, tenderness, swelling or pain on movement. Nose: Congestion present. Mouth/Throat: Mouth: Mucous membranes are moist. Pharynx: Oropharynx is clear. Uvula midline. No phar (more content not included)... [facility] 10-03-2022 Instructions Anthony Spear APRN.[facility] - 10/03/2022 1:17 PM EDT RESPIRATORY INFECTION GENERAL INFORMATION: An upper respiratory tract infection, or cold, is a viral infection of the airway passages. It can be caused by any one of almost 200 different viruses. Common symptoms include a runny or stuffy nose, sneezing, watery eyes, sore throat, cough, and slight fever. Colds are contagious, especially during the first 3 or 4 days and cannot be cured by antibiotics. They are spread by coughs, sneezes, and direct contact, especially [id number]. A respiratory tract infection usually clears up in a few days, but some people may be sick for a week or two. INSTRUCTIONS: 1. Be careful not to blow your nose too hard because this may cause a nosebleed. 2. Use a cool-mist humidifier (vaporizer) to increase air moisture. This will make it easier for you to breathe. Do not use hot steam. 3. Rest as much as possible and get plenty of sleep. 4. Wash your hands often, especially after you blow your nose. Cover your mouth and nose with a tissue when you sneeze or cough. 5. Drink plenty of clear fluids (8 glasses a day) such as water, fruit juice, tea, clear soups, and carbonated beverages. CONTACT YOUR DOCTOR IF : 1. Your fever lasts more than 3 days. 2. You have a sore throat that gets worse or you see white or yellow spots in your throat. 3. Your cough gets worse or lasts more than 10 days. 4. You develop a rash anywhere on your skin. 5. You have an earache or a headache. 6. You have thick greenish or yellowish discharge from your nose. RETURN IMMEDIATELY IF: 1. You cough up thick yellow, green, bianchi, or bloody sputum. 2. You have difficulty breathing, pain in your chest, or your skin or nails look bianchi or blue. 3. You have shaking chills or a temperature over 102 F (39 C). documented in this encounter [place] 10-03-2022 History of Present illness Narrative Subjective HPI Nontoxic-appearing female presents urgent care chief complaint cough nasal congestion duration of symptoms 1 week. Associated symptoms listed above. States son has similar signs symptoms. Was seen here on Thursday. Was seen in ED on Thursday. Placed on nebulizer steroids and doxycycline. Presents today due to persistent symptoms. Has not used any other OTC medications. Denies any pain. Most bothersome symptom today is cough. Denies any fever body aches chills productive cough chest pain shortness of breath pleuritic pain hemoptysis nausea vomiting abdominal pain change in bowel or bladder habits. Past medical history prescription medication use and allergies reviewed. .Patient presents with: Cough: Chest congestion x1 AMANUEL palumbo 09/30 PAST MEDICAL HISTORY Diagnosis Date Autoimmune disease (HCC) Degeneration of intervertebral disc, site unspecified Depression Migraines Mild intermittent asthma Obesity Osteoarthritis of both knees Plantar fasciitis Psoriasis PAST SURGICAL HISTORY Procedure Laterality Date ADENOIDECTOMY PRIMARY <AGE 11 Adenoidectomy DELIVERY ONLY , low cervical LAPAROSCOPY SURG CHOLECYSTECTOMY 2013 PAST SURGICAL HISTORY OF Bilateral arthoscopy to ankles, scar tissue removal and tendon lengthening TONSILLECTOMY PRIMARY/SECONDARY <AGE 11 Tonsillectomy ALLERGIES Environmental [Other], Gabapentin, Prednisone, and Topamax [Topiramate] MEDICATIONS doxycycline hyclate (VIBRAMYCIN) 100 mg capsule Take 1 capsule by mouth every 12 hours. methylPREDNISolone (MEDROL, OLIVIER,) 4 mg Dose-Pack Follow dosing instructions, take with food. albuterol HFA (PROAIR HFA) 90 mcg/actuation inhaler Inhale 2 Puffs as instructed every 4 hours as needed. valACYclovir (VALTREX) 500 mg tablet Take 4 tablets twice daily X 1 day. Then start one tablet by mouth daily thereafter. cefADROxil (DURICEF) 500 mg capsule Take 1 capsule by mouth twice daily. fexofenadine (LAKISHA ALLERGY) 180 mg tablet Take 1 tablet by mouth once daily. cyclobenzaprine (FLEXERIL) 10 mg tablet Take 1 tablet by mouth three times daily as needed. pregabalin (LYRICA) 75 mg capsule Take 1 capsule by mouth twice daily for 30 days. norethindrone (AYGESTIN) 5 mg tablet Take 1 tablet by mouth twice daily for 7 days. cyanocobalamin (VITAMIN B-12) 100 mcg tab Take 100 mcg by mouth once daily. ergocalciferol, vitamin D2, (VITAMIN D2 ORAL) Take by mouth. MULTIVITAMIN NO.43-IRON-FA ORAL Take by mouth. ondansetron (ZOFRAN) 4 mg tablet Take 1 tablet by mouth once daily as needed for nausea/vomiting (for nausea.) for up to [address] (PROTONIX) 40 mg tablet Take 1 tablet by mouth once daily. To be taken for 1 year after the surgery (Patient not taking: Reported on 06/11/2022) albuterol (PROVENTIL) 2.5 mg /3 mL (0.083 %) nebulizer solution Use 3 mL via nebulizer every 4 hours as needed for wheezing/shortness of breath. SUMAtriptan (IMITREX) 100 mg tablet Take 1 tablet by mouth as needed. START AT ONSET OF HEADACHE. MAY REPEAT DOSE AFTER 2 HOURS. ammonium lactate (AMLACTIN) 12 % lotion apply to rash 2-3 times a day as needed FAMILY HISTORY Problem Relation Age of Onset Diabetes Maternal Grandmother Diabetes Maternal Uncle Social History Tobacco Use Smoking status: Former Packs/day: 0.25 Years: 24.00 Additional pack years: 0.00 Total pack years: 6.00 Types: Cigarettes Start date: 03/19/1990 Quit date: 2015 Years since quittin.6 Smokeless tobacco: Never Tobacco comments: quit in 05/15 Vaping Use Vaping Use: Never used Substance Use Topics Alcohol use: Yes Comment: rarely Drug use: No BP 133/75 Pulse 75 Temp 36.8 C (98.2 F) Resp 20 Wt 124.7 kg (275 lb) LMP 03/15/2022 SpO2 97% BMI 40.61 kg/m Review of Systems Constitutional: Positive for malaise/fatigue. Negative for chills and fever. HENT: Positive for congestion. Negative for ear discharge, ear pain, sinus pain and sore throat. Eyes: Negative for blurred vision, pain, discharge and redness. Respiratory: Positive for cough. Negative for hemoptysis, sputum production, shortness of breath, wheezing and stridor. Cardiovascular: Negative for chest pain. Gastrointestinal: Negative for abdominal pain, diarrhea, nausea and vomiting. Musculoskeletal: Positive for myalgias. Skin: Negative for itching and rash. Neurological: Negative for dizziness and headaches. Objective Physical Exam Constitutional: General: She is not in acute distress. Appearance: She is not diaphoretic. HENT: Head: Normocephalic. Jaw: No trismus, tenderness, swelling or pain on movement. Nose: Congestion present. Mouth/Throat: Mouth: Mucous membranes are moist. Pharynx: Oropharynx is clear. Uvula midline. No pharyngeal swelling, oropharyngeal exudate, posterior oropharyngeal erythema or uvula swelling. Eyes: Conjunctiva/sclera: Conjunctivae normal. Pupils: Pupils are equal, round, and reactive to light. Cardiovascular: Rate and Rhythm: Normal rate and regular rhythm. Heart sounds: Normal heart sounds. Pulmonary: Effort: Pulmonary effort is normal. No tachypnea, accessory muscle usage or respiratory distress. Breath sounds: No stridor. Wheezing present. No rhonchi or rales. Abdominal: General: There is no distension. Palpations: Abdomen is soft. Tenderness: There is no abdominal tenderness. There is no guarding or rebound. Musculoskeletal: Cervical back: Normal range of motion and neck supple. No edema, erythema, rigidity or tenderness. No pain with movement. Normal range of motion. Lymphadenopathy: Cervical: No cervical adenopathy. Skin: General: Skin is warm and dry. Neurological: Mental Status: She is alert and oriented to person, place, and time. ASSESSMENT/PLAN: 1. Viral bronchitis - ICD9: 466.0, ICD10: J20.8 Diagnosed with viral bronchitis. Continue supportive therapies as discussed. Patient was educated on supportive therapies. Patient will follow up with primary care provider as needed. Patient was instructed to immediately proceed to emergency room for any new, worsening, or symptoms lasting longer than anticipated. The patient's clinical presentation is otherwise unremarkable at this time. Based on exam and clinical finding, the patient is stable for discharge. Plan of care was discussed with patient. Patient verbalizes understanding and agrees to plan of care. This note was generated using [employer] software. It may contain errors in wording, punctuation, or spelling. Anthony Spear APRN.[employer] documented in this encounter [place] 09-30-2022 Miscellaneous Notes See nurse triage Can we triage this. If not doing well, may need re eval here or er Pt called to report the Inhaler is not helping and she is going to need to use her nebulizer. Pt reports she needs new supplies sent in today for tubing, solution and mouth pcs. Pt not certain which nebulizer solution she should have. She is on a steroid now and thought the solution does not need to be a steroid. Please review chart and send appropriate prescriptions to [facility]. 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 Marietta Harman LPN documented in this encounter [place] 2022 Note HNO ID: [id number] Author: Suma Luque APRN.[employer] Service: ? Author Type: Nurse Practitioner Type: Progress Notes Filed: 2022 12:14 PM Note Text: Subjective Cough Associated symptoms include sore throat, shortness of breath and wheezing. Pertinent negatives include no chest pain, no chills and no ear pain. Raul Fleming is a 42 year old female who presents with onset of cough, chest congestion and wheezing today. Her son has been sick for the past 2 days. She complains of a runny nose and headache. She took a COVID test at home which was negative. She has not had a fever. She has not taken any medication today for her symptoms. Review of Systems Constitutional: Negative for chills and fever. HENT: Positive for congestion and sore throat. Negative for ear pain. Respiratory: Positive for cough, sputum production, shortness of breath and wheezing. Cardiovascular: Negative for chest pain. BP 124/79 Pulse (!) 121 Temp 36.8 ?C (98.2 ?F) Resp 18 Wt 124.8 kg (275 lb 3.2 oz) LMP 03/15/2022 SpO2 93% BMI 40.64 kg/m? PAST MEDICAL HISTORY Diagnosis Date Autoimmune disease (HCC) Degeneration of intervertebral disc, site unspecified Depression Migraines Mild intermittent asthma Obesity Osteoarthritis of both knees Plantar fasciitis Psoriasis PAST SURGICAL HISTORY Procedure Laterality Date ADENOIDECTOMY PRIMARY Adenoidectomy DELIVERY ONLY , low cervical LAPAROSCOPY SURG CHOLECYSTECTOMY 2013 PAST SURGICAL HISTORY OF Bilateral arthoscopy to ankles, scar tissue removal and tendon lengthening TONSILLECTOMY PRIMARY/SECONDARY Tonsillectomy ALLERGIES Environmental [Other], Gabapentin, Prednisone, and Topamax [Topiramate] MEDICATIONS methylPREDNISolone (MEDROL, OLIVIER,) 4 mg Dose-Pack Follow dosing instructions, take with food. albuterol HFA (PROAIR HFA) 90 mcg/actuation inhaler Inhale 2 Puffs as instructed every 4 hours as needed. valACYclovir (VALTREX) 500 mg tablet Take 4 tablets twice daily X 1 day. Then start one tablet by mouth daily thereafter. cefADROxil (DURICEF) 500 mg capsule Take 1 capsule by mouth twice daily. fexofenadine (LAKISHA ALLERGY) 180 mg tablet Take 1 tablet by mouth once daily. cyclobenzaprine (FLEXERIL) 10 mg tablet Take 1 tablet by mouth three times daily as needed. pregabalin (LYRICA) 75 mg capsule Take 1 capsule by mouth twice daily for 30 days. norethindrone (AYGESTIN) 5 mg tablet Take 1 tablet by mouth twice daily for 7 days. cyanocobalamin (VITAMIN B-12) 100 mcg tab Take 100 mcg by mouth once daily. ergocalciferol, vitamin D2, (VITAMIN D2 ORAL) Take by mouth. MULTIVITAMIN NO.43-IRON-FA ORAL Take by mouth. ondansetron (ZOFRAN) 4 mg tablet Take 1 tablet by mouth once daily as needed for nausea/vomiting (for nausea.) for up to [address] (PROTONIX) 40 mg tablet Take 1 tablet by mouth once daily. To be taken for 1 year after the surgery (Patient not taking: Reported on 06/11/2022) albuterol (PROVENTIL) 2.5 mg /3 mL (0.083 %) nebulizer solution Use 3 mL via nebulizer every 4 hours as needed for wheezing/shortness of breath. SUMAtriptan (IMITREX) 100 mg tablet Take 1 tablet by mouth as needed. START AT ONSET OF HEADACHE. MAY REPEAT DOSE AFTER 2 HOURS. ammonium lactate (AMLACTIN) 12 % lotion apply to rash 2-3 times a day as needed FAMILY HISTORY Problem Relation Age of Onset Diabetes Maternal Grandmother Diabetes Maternal Uncle Social History Tobacco Use Smoking status: Former Packs/day: 0.25 Years: 24.00 Additional pack years: 0.00 Total pack years: 6.00 Types: Cigarettes Start date: 03/19/1990 Quit date: 2015 Years since quittin.6 Smokeless tobacco: Never Tobacco comments: quit in 05/15 Vaping Use Vaping Use: Never used Substance Use Topics Alcohol use: Yes Comment: rarely Drug use: No Objective Physical Exam Vitals and nursing note reviewed. Constitutional: General: She is not in acute distress. Appearance: Normal appearance. She is obese. She is not ill-appearing. HENT: Right Ear: Tympanic membrane, ear canal and external ear normal. Left Ear: Tympanic membrane, ear canal and external ear normal. Nose: Nose normal. Mouth/Throat: Pharynx: Uvula midline. No oropharyngeal exudate or posterior oropharyngeal erythema. Cardiovascular: Rate and Rhythm: Normal rate and regular rhythm. Heart sounds: Normal heart sounds. Pulmonary: Effort: Pulmonary effort is normal. No respiratory distress. Breath sounds: Examination of the right-upper field reveals wheezing. Examination of the left-upper field reveals wheezing. Examination of the right-lower field reveals wheezing. Examination of the left-lower field reveals wheezing. Wheezing present. No rales. Musculoskeletal: Cervical back: Neck supple. Lymphadenopathy: Cervical: No cervical adenopathy. Skin: General: Skin is warm and dry. Findings: No e (more content not included)... [facility] 2022 History of Present illness Narrative Subjective Cough Associated symptoms include sore throat, shortness of breath and wheezing. Pertinent negatives include no chest pain, no chills and no ear pain. Raul Fleming is a 42 year old female who presents with onset of cough, chest congestion and wheezing today. Her son has been sick for the past 2 days. She complains of a runny nose and headache. She took a COVID test at home which was negative. She has not had a fever. She has not taken any medication today for her symptoms. Review of Systems Constitutional: Negative for chills and fever. HENT: Positive for congestion and sore throat. Negative for ear pain. Respiratory: Positive for cough, sputum production, shortness of breath and wheezing. Cardiovascular: Negative for chest pain. BP 124/79 Pulse (!) 121 Temp 36.8 C (98.2 F) Resp 18 Wt 124.8 kg (275 lb 3.2 oz) LMP 03/15/2022 SpO2 93% BMI 40.64 kg/m PAST MEDICAL HISTORY Diagnosis Date Autoimmune disease (HCC) Degeneration of intervertebral disc, site unspecified Depression Migraines Mild intermittent asthma Obesity Osteoarthritis of both knees Plantar fasciitis Psoriasis PAST SURGICAL HISTORY Procedure Laterality Date ADENOIDECTOMY PRIMARY <AGE 11 Adenoidectomy DELIVERY ONLY , low cervical LAPAROSCOPY SURG CHOLECYSTECTOMY 2013 PAST SURGICAL HISTORY OF Bilateral arthoscopy to ankles, scar tissue removal and tendon lengthening TONSILLECTOMY PRIMARY/SECONDARY <AGE 11 Tonsillectomy ALLERGIES Environmental [Other], Gabapentin, Prednisone, and Topamax [Topiramate] MEDICATIONS methylPREDNISolone (MEDROL, OLIVIER,) 4 mg Dose-Pack Follow dosing instructions, take with food. albuterol HFA (PROAIR HFA) 90 mcg/actuation inhaler Inhale 2 Puffs as instructed every 4 hours as needed. valACYclovir (VALTREX) 500 mg tablet Take 4 tablets twice daily X 1 day. Then start one tablet by mouth daily thereafter. cefADROxil (DURICEF) 500 mg capsule Take 1 capsule by mouth twice daily. fexofenadine (LAKISHA ALLERGY) 180 mg tablet Take 1 tablet by mouth once daily. cyclobenzaprine (FLEXERIL) 10 mg tablet Take 1 tablet by mouth three times daily as needed. pregabalin (LYRICA) 75 mg capsule Take 1 capsule by mouth twice daily for 30 days. norethindrone (AYGESTIN) 5 mg tablet Take 1 tablet by mouth twice daily for 7 days. cyanocobalamin (VITAMIN B-12) 100 mcg tab Take 100 mcg by mouth once daily. ergocalciferol, vitamin D2, (VITAMIN D2 ORAL) Take by mouth. MULTIVITAMIN NO.43-IRON-FA ORAL Take by mouth. ondansetron (ZOFRAN) 4 mg tablet Take 1 tablet by mouth once daily as needed for nausea/vomiting (for nausea.) for up to [address] (PROTONIX) 40 mg tablet Take 1 tablet by mouth once daily. To be taken for 1 year after the surgery (Patient not taking: Reported on 06/11/2022) albuterol (PROVENTIL) 2.5 mg /3 mL (0.083 %) nebulizer solution Use 3 mL via nebulizer every 4 hours as needed for wheezing/shortness of breath. SUMAtriptan (IMITREX) 100 mg tablet Take 1 tablet by mouth as needed. START AT ONSET OF HEADACHE. MAY REPEAT DOSE AFTER 2 HOURS. ammonium lactate (AMLACTIN) 12 % lotion apply to rash 2-3 times a day as needed FAMILY HISTORY Problem Relation Age of Onset Diabetes Maternal Grandmother Diabetes Maternal Uncle Social History Tobacco Use Smoking status: Former Packs/day: 0.25 Years: 24.00 Additional pack years: 0.00 Total pack years: 6.00 Types: Cigarettes Start date: 03/19/1990 Quit date: 2014 Years since quittin.6 Smokeless tobacco: Never Tobacco comments: quit in 05/15 Vaping Use Vaping Use: Never used Substance Use Topics Alcohol use: Yes Comment: rarely Drug use: No Objective Physical Exam Vitals and nursing note reviewed. Constitutional: General: She is not in acute distress. Appearance: Normal appearance. She is obese. She is not ill-appearing. HENT: Right Ear: Tympanic membrane, ear canal and external ear normal. Left Ear: Tympanic membrane, ear canal and external ear normal. Nose: Nose normal. Mouth/Throat: Pharynx: Uvula midline. No oropharyngeal exudate or posterior oropharyngeal erythema. Cardiovascular: Rate and Rhythm: Normal rate and regular rhythm. Heart sounds: Normal heart sounds. Pulmonary: Effort: Pulmonary effort is normal. No respiratory distress. Breath sounds: Examination of the right-upper field reveals wheezing. Examination of the left-upper field reveals wheezing. Examination of the right-lower field reveals wheezing. Examination of the left-lower field reveals wheezing. Wheezing present. No rales. Musculoskeletal: Cervical back: Neck supple. Lymphadenopathy: Cervical: No cervical adenopathy. Skin: General: Skin is warm and dry. Findings: No erythema or rash. Neurological: Mental Status: She is alert. ASSESSMENT/PLAN: 1. Viral bronchitis - ICD9: 466.0, ICD10: J20.8 - METHYLPREDNISOLONE 4 MG TABLETS IN A DOSE PACK - ALBUTEROL SULFATE HFA 90 MCG/ACTUATION AEROSOL INHALER - Follow-up with your PCP in 3-5 days if symptoms have not improved or sooner if symptoms worsen - Discussed red flags and need for immediate medical evaluation if any occur. - Discussed supportive care treatment with fluids, rest and analgesia. - Discussed expected course of illness Suma Luque APRN.CNP documented in this encounter [facility] 2022 Instructions Suma Luque APRN.CNP - 2022 11:58 AM EDT ASSESSMENT/PLAN: 1. Viral bronchitis - ICD9: 466.0, ICD10: J20.8 - METHYLPREDNISOLONE 4 MG TABLETS IN A DOSE PACK - ALBUTEROL SULFATE HFA 90 MCG/ACTUATION AEROSOL INHALER - Follow-up with your PCP in 3-5 days if symptoms have not improved or sooner if symptoms worsen - Discussed red flags and need for immediate medical evaluation if any occur. - Discussed supportive care treatment with fluids, rest and analgesia. - Discussed expected course of illness Suma Luque APRN.CNP ACUTE BRONCHITIS: You have acute bronchitis. This means the airway passages in your lungs are inflamed. Bronchitis may be caused by viruses or bacteria. Inhaling cigarette smoke will always make it worse. Exposure to irritating chemicals or second hand smoke as well as allergies can contribute to bronchitis. Repeat episodes of bronchitis may cause lifelong lung problems. Acute bronchitis is usually treated with rest, fluids, cough medicine, and possibly antibiotics or inhaled medicine to open up the small airways. It is very important that you avoid smoke and drink increased amounts of fluids. A cool air vaporizer can help thin bronchial secretions. This makes it easier to cough and clear your chest. If you are a cigarette smoker, consider using nicotine gum or skin patches to help you withdraw. Recovery from bronchitis is often slow, but you should start feeling better after 2-3 days of treatment. Please call your doctor or return here if you have any of the following symptoms: Increased fever, chills, or chest pain. Severe shortness of breath or bloody sputum. Do not improve after 3 days of proper treatment. documented in this encounter [facility] 06-27-2022 Note HNO ID: [id number] Author: Anthony Dawson MD Service: ? Author Type: Physician Type: Progress Notes Filed: 06/29/2022 12:48 PM Note Text: Chief Complaint Patient presents with: URI HPI Raul Fleming is a 41 year old female who presents here today for possible sinus infection. When did it start? 06/04/2022; started with allergies after coming back from a cruise from her [place] but has been sick since; initially develops a viral illness about 2 weeks ago and not resolving and seems to be progressing. Any cough? No If so, dry or productive Chest congestion ; - no Sinus congestion : yes Sore throat? Yes, slight PND Fever? No Has green nasal drainage, no ear pain. Has some facial pain. Upper teeth have been sore. Slight nausea today. No vomiting, diarrhea, shortness of breath, wheezing, body aches. Any exposure to Covid? No; did take covid home test it was negative Past medical history, appointments, medications, allergies reviewed. Previous Medical History PAST MEDICAL HISTORY Diagnosis Date Autoimmune disease (HCC) Degeneration of intervertebral disc, site unspecified Depression Migraines Mild intermittent asthma Obesity Osteoarthritis of both knees Plantar fasciitis Psoriasis Previous Surgical History PAST SURGICAL HISTORY Procedure Laterality Date ADENOIDECTOMY PRIMARY Adenoidectomy DELIVERY ONLY , low cervical LAPAROSCOPY SURG CHOLECYSTECTOMY 2013 PAST SURGICAL HISTORY OF Bilateral arthoscopy to ankles, scar tissue removal and tendon lengthening TONSILLECTOMY PRIMARY/SECONDARY Tonsillectomy Family History FAMILY HISTORY Problem Relation Age of Onset Diabetes Maternal Grandmother Diabetes Maternal Uncle Patient Allergies ALLERGIES Allergen Reactions Environmental [Othe* Gabapentin Other: See Comments Prednisone Mental Status Change Topamax [Topiramate] Other: See Comments anxiety Current Medications Current Outpatient Medications on File Prior to Visit Medication Sig fexofenadine (LAKISHA ALLERGY) 180 mg tablet Take 1 tablet by mouth once daily. cyclobenzaprine (FLEXERIL) 10 mg tablet Take 1 tablet by mouth three times daily as needed. pregabalin (LYRICA) 75 mg capsule Take 1 capsule by mouth twice daily for 30 days. norethindrone (AYGESTIN) 5 mg tablet Take 1 tablet by mouth twice daily for 7 days. cyanocobalamin (VITAMIN B-12) 100 mcg tab Take 100 mcg by mouth once daily. ergocalciferol, vitamin D2, (VITAMIN D2 ORAL) Take by mouth. MULTIVITAMIN NO.43-IRON-FA ORAL Take by mouth. valACYclovir (VALTREX) 500 mg tablet Take 4 tablets twice daily X 1 day. Then start one tablet by mouth daily thereafter. ondansetron (ZOFRAN) 4 mg tablet Take 1 tablet by mouth once daily as needed for nausea/vomiting (for nausea.) for up to [address] (PROTONIX) 40 mg tablet Take 1 tablet by mouth once daily. To be taken for 1 year after the surgery (Patient not taking: Reported on 06/11/2022) albuterol (PROVENTIL) 2.5 mg /3 mL (0.083 %) nebulizer solution Use 3 mL via nebulizer every 4 hours as needed for wheezing/shortness of breath. albuterol HFA (PROAIR HFA) 90 mcg/actuation inhaler Inhale 2 Puffs as instructed every 4 hours as needed. SUMAtriptan (IMITREX) 100 mg tablet Take 1 tablet by mouth as needed. START AT ONSET OF HEADACHE. MAY REPEAT DOSE AFTER 2 HOURS. ammonium lactate (AMLACTIN) 12 % lotion apply to rash 2-3 times a day as needed No current facility-administered medications on file prior to visit. Social History Social History Tobacco Use Smoking status: Former Packs/day: 0.25 Years: 24.00 Pack years: 6.00 Types: Cigarettes Start date: 03/19/1990 Quit date: 2014 Years since quittin.3 Smokeless tobacco: Never Tobacco comments: quit in 05/15 Vaping Use Vaping Use: Never used Substance Use Topics Alcohol use: Yes Comment: rarely Drug use: No Review of Symptoms REVIEW OF SYSTEMS See HPI EXAM: BP 104/64 (BP Site: Right Arm, BP Position: Sitting, BP Cuff Size: Large Adult) Pulse (!) 55 Temp 36.6 ?C (97.9 ?F) (Tympanic) Wt 128.4 kg (283 lb) LMP 03/15/2022 SpO2 97% BMI 41.79 kg/m? General Appearance: Well appearing, alert, in no acute distress, well-hydrated, well nourished.. Eyes: Anicteric sclera. Pupils are equally round. Extraocular movements are intact. . Ears: External ears, TM's normal, canals clear. Nose/Sinuses: Nares normal, septum midline, mucosa normal, no drainage or sinus tenderness. Oropharynx: Lips, mucosa, and tongue normal, teeth and gums normal, oropharynx normal. Neck: Supple, no adenopathy; thyroid symmetric, normal size, no bruits. Lungs: Lungs clear to auscultation. No wheezing, rhonchi, rales.. Heart: RRR without murmur, gallop, or rubs. No ectopy. Abdomen: Normal abdominal exam, Abdomen soft, non-tender. Bowel sounds normal. No masses, organomegaly. Health Maintenance List (more content not included)... [facility] 06-16-2022 Miscellaneous Notes Lasb ok except sugar was mildly up. Recheck a1c documented in this encounter [place] 06-11-2022 Note HNO ID: [id number] Author: Toi Escamilla MD Service: ? Author Type: Physician Type: Progress Notes Filed: 06/11/2022 12:28 PM Note Text: Patient presents with: Headache Dizziness HPI: Patient presents today for office visit for dizziness. Yesterday after she got off work she decided to have [employer] drink. Got a headache and didn't feel well so she laid down and took about a 30 minute nap. When she woke up she states she was very hot and felt overheated. Started to drip sweat and felt very shaky. Ate some chips and a piece of cheese with some water and started to feel a little better. Has not felt right since episode. Slept all day yesterday. Refers to now feeling tired like she does with her migraines. Did not get a visual aura. Headache is not severe. No numbness or tingling. No focal weakness. No myalgias Does not feel ill. No sore throat or cough or gi issues. No palpitations. Does have a hx of svt. Cardiology wanted to see her back this year. No syncope. [place] like she could have during her spell. No urinary issus or fever. Denies chest pain and shortness of breath. No nausea or vomiting. Loss of appetite. Was on a cruise recently and drank with no difficulty. Did feel better after eating. MEDICATIONS: Current Outpatient Medications Medication Sig fexofenadine (LAKISHA ALLERGY) 180 mg tablet Take 1 tablet by mouth once daily. cyclobenzaprine (FLEXERIL) 10 mg tablet Take 1 tablet by mouth three times daily as needed. pregabalin (LYRICA) 75 mg capsule Take 1 capsule by mouth twice daily for 30 days. norethindrone (AYGESTIN) 5 mg tablet Take 1 tablet by mouth twice daily for 7 days. cyanocobalamin (VITAMIN B-12) 100 mcg tab Take 100 mcg by mouth once daily. ergocalciferol, vitamin D2, (VITAMIN D2 ORAL) Take by mouth. MULTIVITAMIN NO.43-IRON-FA ORAL Take by mouth. valACYclovir (VALTREX) 500 mg tablet Take 4 tablets twice daily X 1 day. Then start one tablet by mouth daily thereafter. ondansetron (ZOFRAN) 4 mg tablet Take 1 tablet by mouth once daily as needed for nausea/vomiting (for nausea.) for up to 40 doses. albuterol (PROVENTIL) 2.5 mg /3 mL (0.083 %) nebulizer solution Use 3 mL via nebulizer every 4 hours as needed for wheezing/shortness of breath. albuterol HFA (PROAIR HFA) 90 mcg/actuation inhaler Inhale 2 Puffs as instructed every 4 hours as needed. SUMAtriptan (IMITREX) 100 mg tablet Take 1 tablet by mouth as needed. START AT ONSET OF HEADACHE. MAY REPEAT DOSE AFTER 2 HOURS. ammonium lactate (AMLACTIN) 12 % lotion apply to rash 2-3 times a day as needed pantoprazole DR (PROTONIX) 40 mg tablet Take 1 tablet by mouth once daily. To be taken for 1 year after the surgery (Patient not taking: Reported on 06/11/2022) No current facility-administered medications for this visit. ALLERGIES: ALLERGIES Allergen Reactions Environmental [Othe* Gabapentin Other: See Comments Prednisone Mental Status Change Topamax [Topiramate] Other: See Comments anxiety PAST MEDICAL HISTORY Diagnosis Date Autoimmune disease (HCC) Degeneration of intervertebral disc, site unspecified Depression Migraines Mild intermittent asthma Obesity Osteoarthritis of both knees Plantar fasciitis Psoriasis PAST SURGICAL HISTORY Procedure Laterality Date ADENOIDECTOMY PRIMARY Adenoidectomy DELIVERY ONLY , low cervical LAPAROSCOPY SURG CHOLECYSTECTOMY 2013 PAST SURGICAL HISTORY OF Bilateral arthoscopy to ankles, scar tissue removal and tendon lengthening TONSILLECTOMY PRIMARY/SECONDARY Tonsillectomy FAMILY HISTORY Problem Relation Age of Onset Diabetes Maternal Grandmother Diabetes Maternal Uncle Social History Tobacco Use Smoking status: Former Packs/day: 0.25 Years: 24.00 Pack years: 6.00 Types: Cigarettes Start date: 03/19/1990 Quit date: 2015 Years since quittin.3 Smokeless tobacco: Never Tobacco comments: quit in 05/15 Vaping Use Vaping Use: Never used Substance Use Topics Alcohol use: Yes Comment: rarely Drug use: No Reviewed current medications, allergies, past medical history, surgical history, family history and social history today. REVIEW OF SYSTEMS All other reviewed and negative other than HPI. VITALS: BP 110/68 Pulse 60 Ht 175.3 cm (5' 9 ) Wt 126.6 kg (279 lb) LMP 03/15/2022 SpO2 98% BMI 41.20 kg/m? BP w/Orthostatic Vitals Date and Time Orthostatic BP Orthostatic Pulse BP Pulse BP Position BP Site BP Cuff Size 06/11/22 1219 104/62 68 -- -- Standing -- -- 06/11/22 1218 114/75 57 -- -- Supine -- -- 06/11/22 1142 -- -- 110/68 60 -- -- -- Last 4 Encounter Wt Readings: Date: Wt: 05/22/2022 127.9 kg (282 lb) 04/11/2022 133.4 kg (294 lb) 03/31/2022 136.6 kg (301 lb 3.2 oz) 02/24/2022 140.2 kg (309 lb) PHYSICAL EXAMINATION: General appearance: Well appearing, alert, in no acute distress, well-hydrated, well nourished. Skin: Skin color, t (more content not included)... [facility] 06-11-2022 History of Present illness Narrative Patient presents with: Headache Dizziness HPI: Patient presents today for office visit for dizziness. Yesterday after she got off work she decided to have [employer] drink. Got a headache and didn't feel well so she laid down and took about a 30 minute nap. When she woke up she states she was very hot and felt overheated. Started to drip sweat and felt very shaky. Ate some chips and a piece of cheese with some water and started to feel a little better. Has not felt right since episode. Slept all day yesterday. Refers to now feeling tired like she does with her migraines. Did not get a visual aura. Headache is not severe. No numbness or tingling. No focal weakness. No myalgias Does not feel ill. No sore throat or cough or gi issues. No palpitations. Does have a hx of svt. Cardiology wanted to see her back this year. No syncope. [place] like she could have during her spell. No urinary issus or fever. Denies chest pain and shortness of breath. No nausea or vomiting. Loss of appetite. Was on a cruise recently and drank with no difficulty. Did feel better after eating. MEDICATIONS: Current Outpatient Medications Medication Sig fexofenadine (LAKISHA ALLERGY) 180 mg tablet Take 1 tablet by mouth once daily. cyclobenzaprine (FLEXERIL) 10 mg tablet Take 1 tablet by mouth three times daily as needed. pregabalin (LYRICA) 75 mg capsule Take 1 capsule by mouth twice daily for 30 days. norethindrone (AYGESTIN) 5 mg tablet Take 1 tablet by mouth twice daily for 7 days. cyanocobalamin (VITAMIN B-12) 100 mcg tab Take 100 mcg by mouth once daily. ergocalciferol, vitamin D2, (VITAMIN D2 ORAL) Take by mouth. MULTIVITAMIN NO.43-IRON-FA ORAL Take by mouth. valACYclovir (VALTREX) 500 mg tablet Take 4 tablets twice daily X 1 day. Then start one tablet by mouth daily thereafter. ondansetron (ZOFRAN) 4 mg tablet Take 1 tablet by mouth once daily as needed for nausea/vomiting (for nausea.) for up to 40 doses. albuterol (PROVENTIL) 2.5 mg /3 mL (0.083 %) nebulizer solution Use 3 mL via nebulizer every 4 hours as needed for wheezing/shortness of breath. albuterol HFA (PROAIR HFA) 90 mcg/actuation inhaler Inhale 2 Puffs as instructed every 4 hours as needed. SUMAtriptan (IMITREX) 100 mg tablet Take 1 tablet by mouth as needed. START AT ONSET OF HEADACHE. MAY REPEAT DOSE AFTER 2 HOURS. ammonium lactate (AMLACTIN) 12 % lotion apply to rash 2-3 times a day as needed pantoprazole DR (PROTONIX) 40 mg tablet Take 1 tablet by mouth once daily. To be taken for 1 year after the surgery (Patient not taking: Reported on 06/11/2022) No current facility-administered medications for this visit. ALLERGIES: ALLERGIES Allergen Reactions Environmental [Othe* Gabapentin Other: See Comments Prednisone Mental Status Change Topamax [Topiramate] Other: See Comments anxiety PAST MEDICAL HISTORY Diagnosis Date Autoimmune disease (HCC) Degeneration of intervertebral disc, site unspecified Depression Migraines Mild intermittent asthma Obesity Osteoarthritis of both knees Plantar fasciitis Psoriasis PAST SURGICAL HISTORY Procedure Laterality Date ADENOIDECTOMY PRIMARY <AGE 11 Adenoidectomy DELIVERY ONLY , low cervical LAPAROSCOPY SURG CHOLECYSTECTOMY 2013 PAST SURGICAL HISTORY OF Bilateral arthoscopy to ankles, scar tissue removal and tendon lengthening TONSILLECTOMY PRIMARY/SECONDARY <AGE 11 Tonsillectomy FAMILY HISTORY Problem Relation Age of Onset Diabetes Maternal Grandmother Diabetes Maternal Uncle Social History Tobacco Use Smoking status: Former Packs/day: 0.25 Years: 24.00 Pack years: 6.00 Types: Cigarettes Start date: 03/19/1990 Quit date: 2015 Years since quittin.3 Smokeless tobacco: Never Tobacco comments: quit in 05/15 Vaping Use Vaping Use: Never used Substance Use Topics Alcohol use: Yes Comment: rarely Drug use: No Reviewed current medications, allergies, past medical history, surgical history, family history and social history today. REVIEW OF SYSTEMS All other reviewed and negative other than HPI. VITALS: BP 110/68 Pulse 60 Ht 175.3 cm (5' 9 ) Wt 126.6 kg (279 lb) LMP 03/15/2022 SpO2 98% BMI 41.20 kg/m BP w/Orthostatic Vitals Date and Time Orthostatic BP Orthostatic Pulse BP Pulse BP Position BP Site BP Cuff Size 06/11/22 1219 104/62 68 -- -- Standing -- -- 06/11/22 1218 114/75 57 -- -- Supine -- -- 06/11/22 1142 -- -- 110/68 60 -- -- -- Last 4 Encounter Wt Readings: Date: Wt: 05/22/2022 127.9 kg (282 lb) 04/11/2022 133.4 kg (294 lb) 03/31/2022 136.6 kg (301 lb 3.2 oz) 02/24/2022 140.2 kg (309 lb) PHYSICAL EXAMINATION: General appearance: Well appearing, alert, in no acute distress, well-hydrated, well nourished. Skin: Skin color, texture, turgor normal, no suspicious rashes or lesions Head: Normocephalic, no masses, lesions, tenderness or abnormalities Eyes: Anicteric sclera. Pupils are equally round and reactive to light. Extraocular movements are intact. Ears: External ears normal, canals clear Nose/Sinuses: Nares normal, septum midline, mucosa normal, no drainage or sinus tenderness Oropharynx: Lips, mucosa, and tongue normal, teeth and gums normal, oropharynx normal Neck: Supple, no adenopathy; thyroid symmetric, normal size, no bruits Lungs: Lungs clear to auscultation. No wheezing, rhonchi, rales Heart: RRR without murmur, gallop, or rubs. No ectopy Abdomen: Normal abdominal exam, Abdomen soft, non-tender. Bowel sounds normal. No masses, organomegaly Extremities: No deformities, edema, skin discoloration, clubbing or cyanosis. Good capillary refill. Musculoskeletal: No joint swelling, deformity, or tenderness Peripheral pulses: Normal Neuro: Gait normal. Reflexes normal and symmetric. Sensation grossly intact., Negative findings: mental status intact, cranial nerves 2-12 intact, muscle tone normal ASSESSMENT/PLAN: 1. Lightheaded - ICD9: 780.4, ICD10: R42 (primary diagnosis) - follow labs. Call if any issues. Follow closely. Get back into cardiology with her hx of svt Red flags for re-assessment reviewed with patient in detail. - eat and drink fluid regularly - ECG COMPLETE-mild macie. Otherwise ok. - TSH BLD 2. Migraine without status migrainosus, not intractable, unspecified migraine type - ICD9: 346.90, ICD10: G43.909 - ? Related. 3. Gastric bypass status for obesity - ICD9: V45.86, ICD10: Z98.84 - check labs. - CBC + DIFF - COMP METABOLIC PANEL - VITAMIN D 25 HYDROXY - VITAMIN B12 BLOOD - FOLATE SERUM - VITAMIN B1 (THIAMINE), WHOLE BLOOD - IRON + TIBC 4. SVT- See cardiology Tio Escamilla RTO in six weeks and prn. documented in this encounter [place] 06-05-2022 Note HNO ID: [id number] Author: Toi Escamilla MD Service: ? Author Type: Physician Type: Progress Notes Filed: 06/05/2022 10:25 AM Note Text: Patient presents with: Follow Up HPI:This Team Access Model visit is a phone encounter. It required patient-provider interaction for the medical decision making as documented below. Patient has elected to have a visit through distance medicine I have communicated my name and active licensure. The patient's identity and physical location were verified at the time of this visit. Either the patient or their legal life assurance representative has been informed of the risks and benefits of -- and alternatives to -- treatment through a remote evaluation and consents to proceed with the evaluation remotely. Had been on a cruise. Came back to [place] and started with allergy symptoms. Had developed a rash on the inside of her left leg. One benadryl took it away. Was bubbly and itched. Now is better. No fever or chills. No cough. Some itchy eyes and sneezing Has a home covid and discussed testing it at home. She will call if positive. No sore throat or ear pain. No shortness of breath or wheezing. No gi issues. Uses claritin but not working as well. MEDICATIONS: Current Outpatient Medications Medication Sig cyclobenzaprine (FLEXERIL) 10 mg tablet Take 1 tablet by mouth three times daily as needed. pregabalin (LYRICA) 75 mg capsule Take 1 capsule by mouth twice daily for 30 days. norethindrone (AYGESTIN) 5 mg tablet Take 1 tablet by mouth twice daily for 7 days. loratadine (CLARITIN) 10 mg tablet Take 1 tablet by mouth once daily as needed. cyanocobalamin (VITAMIN B-12) 100 mcg tab Take 100 mcg by mouth once daily. ergocalciferol, vitamin D2, (VITAMIN D2 ORAL) Take by mouth. MULTIVITAMIN NO.43-IRON-FA ORAL Take by mouth. valACYclovir (VALTREX) 500 mg tablet Take 4 tablets twice daily X 1 day. Then start one tablet by mouth daily thereafter. ondansetron (ZOFRAN) 4 mg tablet Take 1 tablet by mouth once daily as needed for nausea/vomiting (for nausea.) for up to [address] (PROTONIX) 40 mg tablet Take 1 tablet by mouth once daily. To be taken for 1 year after the surgery albuterol (PROVENTIL) 2.5 mg /3 mL (0.083 %) nebulizer solution Use 3 mL via nebulizer every 4 hours as needed for wheezing/shortness of breath. albuterol HFA (PROAIR HFA) 90 mcg/actuation inhaler Inhale 2 Puffs as instructed every 4 hours as needed. SUMAtriptan (IMITREX) 100 mg tablet Take 1 tablet by mouth as needed. START AT ONSET OF HEADACHE. MAY REPEAT DOSE AFTER 2 HOURS. ammonium lactate (AMLACTIN) 12 % lotion apply to rash 2-3 times a day as needed No current facility-administered medications for this visit. ALLERGIES: ALLERGIES Allergen Reactions Environmental [Othe* Gabapentin Other: See Comments Prednisone Mental Status Change Topamax [Topiramate] Other: See Comments anxiety PAST MEDICAL HISTORY Diagnosis Date Autoimmune disease (HCC) Degeneration of intervertebral disc, site unspecified Depression Migraines Mild intermittent asthma Obesity Osteoarthritis of both knees Plantar fasciitis Psoriasis PAST SURGICAL HISTORY Procedure Laterality Date ADENOIDECTOMY PRIMARY Adenoidectomy DELIVERY ONLY , low cervical LAPAROSCOPY SURG CHOLECYSTECTOMY 2013 PAST SURGICAL HISTORY OF Bilateral arthoscopy to ankles, scar tissue removal and tendon lengthening TONSILLECTOMY PRIMARY/SECONDARY Tonsillectomy FAMILY HISTORY Problem Relation Age of Onset Diabetes Maternal Grandmother Diabetes Maternal Uncle Social History Tobacco Use Smoking status: Former Packs/day: 0.25 Years: 24.00 Pack years: 6.00 Types: Cigarettes Start date: 03/19/1990 Quit date: 2014 Years since quittin.3 Smokeless tobacco: Never Tobacco comments: quit in 05/15 Vaping Use Vaping Use: Never used Substance Use Topics Alcohol use: Yes Comment: rarely Drug use: No Reviewed current medications, allergies, past medical history, surgical history, family history and social history today. REVIEW OF SYSTEMS All other reviewed and negative other than HPI. VITALS: LMP 03/15/2022 Last 4 Encounter Wt Readings: Date: Wt: 05/22/2022 127.9 kg (282 lb) 04/11/2022 133.4 kg (294 lb) 03/31/2022 136.6 kg (301 lb 3.2 oz) 02/24/2022 140.2 kg (309 lb) PHYSICAL EXAMINATION: Patient is alert and oriented during visit. Answers appropriately. ASSESSMENT/PLAN: 1. Allergy, subsequent encounter - ICD9: V58.89, ICD10: T78.40XD - Discussed risks and benefits of new medication with the patient. Advised them to call if any side effects or questions. - will check a home covid. Red flags for re-assessment reviewed with patient in detail. - .Call if symptoms worsen at all or if not better in one to two weeks - FEXOFENADINE 180 MG TABLET Toi Escamilla MD I spent 9 minutes in the visit, with more than 50% o (more content not included)... [facility] 06-05-2022 History of Present illness Narrative Patient presents with: Follow Up HPI:This Team Access Model visit is a phone encounter. It required patient-provider interaction for the medical decision making as documented below. Patient has elected to have a visit through distance medicine I have communicated my name and active licensure. The patient's identity and physical location were verified at the time of this visit. Either the patient or their legal life assurance representative has been informed of the risks and benefits of -- and alternatives to -- treatment through a remote evaluation and consents to proceed with the evaluation remotely. Had been on a cruise. Came back to [place] and started with allergy symptoms. Had developed a rash on the inside of her left leg. One benadryl took it away. Was bubbly and itched. Now is better. No fever or chills. No cough. Some itchy eyes and sneezing Has a home covid and discussed testing it at home. She will call if positive. No sore throat or ear pain. No shortness of breath or wheezing. No gi issues. Uses claritin but not working as well. MEDICATIONS: Current Outpatient Medications Medication Sig cyclobenzaprine (FLEXERIL) 10 mg tablet Take 1 tablet by mouth three times daily as needed. pregabalin (LYRICA) 75 mg capsule Take 1 capsule by mouth twice daily for 30 days. norethindrone (AYGESTIN) 5 mg tablet Take 1 tablet by mouth twice daily for 7 days. loratadine (CLARITIN) 10 mg tablet Take 1 tablet by mouth once daily as needed. cyanocobalamin (VITAMIN B-12) 100 mcg tab Take 100 mcg by mouth once daily. ergocalciferol, vitamin D2, (VITAMIN D2 ORAL) Take by mouth. MULTIVITAMIN NO.43-IRON-FA ORAL Take by mouth. valACYclovir (VALTREX) 500 mg tablet Take 4 tablets twice daily X 1 day. Then start one tablet by mouth daily thereafter. ondansetron (ZOFRAN) 4 mg tablet Take 1 tablet by mouth once daily as needed for nausea/vomiting (for nausea.) for up to [address] (PROTONIX) 40 mg tablet Take 1 tablet by mouth once daily. To be taken for 1 year after the surgery albuterol (PROVENTIL) 2.5 mg /3 mL (0.083 %) nebulizer solution Use 3 mL via nebulizer every 4 hours as needed for wheezing/shortness of breath. albuterol HFA (PROAIR HFA) 90 mcg/actuation inhaler Inhale 2 Puffs as instructed every 4 hours as needed. SUMAtriptan (IMITREX) 100 mg tablet Take 1 tablet by mouth as needed. START AT ONSET OF HEADACHE. MAY REPEAT DOSE AFTER 2 HOURS. ammonium lactate (AMLACTIN) 12 % lotion apply to rash 2-3 times a day as needed No current facility-administered medications for this visit. ALLERGIES: ALLERGIES Allergen Reactions Environmental [Othe* Gabapentin Other: See Comments Prednisone Mental Status Change Topamax [Topiramate] Other: See Comments anxiety PAST MEDICAL HISTORY Diagnosis Date Autoimmune disease (HCC) Degeneration of intervertebral disc, site unspecified Depression Migraines Mild intermittent asthma Obesity Osteoarthritis of both knees Plantar fasciitis Psoriasis PAST SURGICAL HISTORY Procedure Laterality Date ADENOIDECTOMY PRIMARY <AGE 11 Adenoidectomy DELIVERY ONLY , low cervical LAPAROSCOPY SURG CHOLECYSTECTOMY 2013 PAST SURGICAL HISTORY OF Bilateral arthoscopy to ankles, scar tissue removal and tendon lengthening TONSILLECTOMY PRIMARY/SECONDARY <AGE 11 Tonsillectomy FAMILY HISTORY Problem Relation Age of Onset Diabetes Maternal Grandmother Diabetes Maternal Uncle Social History Tobacco Use Smoking status: Former Packs/day: 0.25 Years: 24.00 Pack years: 6.00 Types: Cigarettes Start date: 03/19/1990 Quit date: 2014 Years since quittin.3 Smokeless tobacco: Never Tobacco comments: quit in 05/15 Vaping Use Vaping Use: Never used Substance Use Topics Alcohol use: Yes Comment: rarely Drug use: No Reviewed current medications, allergies, past medical history, surgical history, family history and social history today. REVIEW OF SYSTEMS All other reviewed and negative other than HPI. VITALS: LMP 03/15/2022 Last 4 Encounter Wt Readings: Date: Wt: 05/22/2022 127.9 kg (282 lb) 04/11/2022 133.4 kg (294 lb) 03/31/2022 136.6 kg (301 lb 3.2 oz) 02/24/2022 140.2 kg (309 lb) PHYSICAL EXAMINATION: Patient is alert and oriented during visit. Answers appropriately. ASSESSMENT/PLAN: 1. Allergy, subsequent encounter - ICD9: V58.89, ICD10: T78.40XD - Discussed risks and benefits of new medication with the patient. Advised them to call if any side effects or questions. - will check a home covid. Red flags for re-assessment reviewed with patient in detail. - .Call if symptoms worsen at all or if not better in one to two weeks - FEXOFENADINE 180 MG TABLET Toi Escamilla MD I spent 9 minutes in the visit, with more than 50% of the total [id number] time of the visit in counseling / coordination of care. documented in this encounter [place] 05-22-2022 Note HNO ID: [id number] Author: Toi Escamilla MD Service: ? Author Type: Physician Type: Progress Notes Filed: 05/22/2022 11:46 AM Note Text: Patient presents with: Back Pain HPI: Patient presents today for office visit for pinched nerve in back. Woke up a couple days ago and felt jolt in lower back down right leg. No trauma. Leaving for a cruise tonight. Currently is sore a little. Worse when she leans back. Feels some shooting discomfort. No numbness or weakness. No issues controlling bowel or bladder. Has a spot up higher as well. Using tylenol. Has lyrica. Had gastric bypass so would avoid nsaids. Can use medrol. MEDICATIONS: Current Outpatient Medications Medication Sig pregabalin (LYRICA) 75 mg capsule Take 1 capsule by mouth twice daily for 30 days. norethindrone (AYGESTIN) 5 mg tablet Take 1 tablet by mouth twice daily for 7 days. loratadine (CLARITIN) 10 mg tablet Take 1 tablet by mouth once daily as needed. cyanocobalamin (VITAMIN B-12) 100 mcg tab Take 100 mcg by mouth once daily. ergocalciferol, vitamin D2, (VITAMIN D2 ORAL) Take by mouth. MULTIVITAMIN NO.43-IRON-FA ORAL Take by mouth. valACYclovir (VALTREX) 500 mg tablet Take 4 tablets twice daily X 1 day. Then start one tablet by mouth daily thereafter. ondansetron (ZOFRAN) 4 mg tablet Take 1 tablet by mouth once daily as needed for nausea/vomiting (for nausea.) for up to [address] (PROTONIX) 40 mg tablet Take 1 tablet by mouth once daily. To be taken for 1 year after the surgery albuterol (PROVENTIL) 2.5 mg /3 mL (0.083 %) nebulizer solution Use 3 mL via nebulizer every 4 hours as needed for wheezing/shortness of breath. albuterol HFA (PROAIR HFA) 90 mcg/actuation inhaler Inhale 2 Puffs as instructed every 4 hours as needed. SUMAtriptan (IMITREX) 100 mg tablet Take 1 tablet by mouth as needed. START AT ONSET OF HEADACHE. MAY REPEAT DOSE AFTER 2 HOURS. ammonium lactate (AMLACTIN) 12 % lotion apply to rash 2-3 times a day as needed No current facility-administered medications for this visit. ALLERGIES: ALLERGIES Allergen Reactions Environmental [Othe* Gabapentin Other: See Comments Prednisone Mental Status Change Topamax [Topiramate] Other: See Comments anxiety PAST MEDICAL HISTORY Diagnosis Date Autoimmune disease (HCC) Degeneration of intervertebral disc, site unspecified Depression Migraines Mild intermittent asthma Obesity Osteoarthritis of both knees Plantar fasciitis Psoriasis PAST SURGICAL HISTORY Procedure Laterality Date ADENOIDECTOMY PRIMARY Adenoidectomy DELIVERY ONLY , low cervical LAPAROSCOPY SURG CHOLECYSTECTOMY 2013 PAST SURGICAL HISTORY OF Bilateral arthoscopy to ankles, scar tissue removal and tendon lengthening TONSILLECTOMY PRIMARY/SECONDARY Tonsillectomy FAMILY HISTORY Problem Relation Age of Onset Diabetes Maternal Grandmother Diabetes Maternal Uncle Social History Tobacco Use Smoking status: Former Packs/day: 0.25 Years: 24.00 Pack years: 6.00 Types: Cigarettes Start date: 03/19/1990 Quit date: 2014 Years since quittin.2 Smokeless tobacco: Never Tobacco comments: quit in 05/15 Vaping Use Vaping Use: Never used Substance Use Topics Alcohol use: Yes Comment: rarely Drug use: No Reviewed current medications, allergies, past medical history, surgical history, family history and social history today. VITALS: BP 104/64 Pulse 71 Ht 175.3 cm (5' 9 ) Wt 127.9 kg (282 lb) LMP 03/15/2022 SpO2 99% BMI 41.64 kg/m? Last 4 Encounter Wt Readings: Date: Wt: 04/11/2022 133.4 kg (294 lb) 03/31/2022 136.6 kg (301 lb 3.2 oz) 02/24/2022 140.2 kg (309 lb) 02/22/2022 142.7 kg (314 lb 9.6 oz) PHYSICAL EXAMINATION: General appearance: Well appearing, alert, in no acute distress, well-hydrated, well nourished. Skin: Skin color, texture, turgor normal, no suspicious rashes or lesions Head: Normocephalic, no masses, lesions, tenderness or abnormalities BACK: Normal curvature of spine. No spine tenderness. Straight leg test negative. Deep tendon reflexes 2+/4 at patellas. Normal lower extremity strength. ASSESSMENT/PLAN: 1. Sciatica, right side - ICD9: 724.3, ICD10: M54.31 - Discussed risks and benefits of new medication with the patient. Advised them to call if any side effects or questions. Red flags for re-assessment reviewed with patient in detail. Call if symptoms worsen at all or if not better in one to two weeks Reviewed diagnosis and treatment options in detail. Questions were answered. Patient expressed understanding of treatment plan. - METHYLPREDNISOLONE 4 MG TABLETS IN A DOSE PACK - CYCLOBENZAPRINE 10 MG TABLET Toi Escamilla MD [facility] 05-22-2022 History of Present illness Narrative Patient presents with: Back Pain HPI: Patient presents today for office visit for pinched nerve in back. Woke up a couple days ago and felt jolt in lower back down right leg. No trauma. Leaving for a cruise tonight. Currently is sore a little. Worse when she leans back. Feels some shooting discomfort. No numbness or weakness. No issues controlling bowel or bladder. Has a spot up higher as well. Using tylenol. Has lyrica. Had gastric bypass so would avoid nsaids. Can use medrol. MEDICATIONS: Current Outpatient Medications Medication Sig pregabalin (LYRICA) 75 mg capsule Take 1 capsule by mouth twice daily for 30 days. norethindrone (AYGESTIN) 5 mg tablet Take 1 tablet by mouth twice daily for 7 days. loratadine (CLARITIN) 10 mg tablet Take 1 tablet by mouth once daily as needed. cyanocobalamin (VITAMIN B-12) 100 mcg tab Take 100 mcg by mouth once daily. ergocalciferol, vitamin D2, (VITAMIN D2 ORAL) Take by mouth. MULTIVITAMIN NO.43-IRON-FA ORAL Take by mouth. valACYclovir (VALTREX) 500 mg tablet Take 4 tablets twice daily X 1 day. Then start one tablet by mouth daily thereafter. ondansetron (ZOFRAN) 4 mg tablet Take 1 tablet by mouth once daily as needed for nausea/vomiting (for nausea.) for up to [address] (PROTONIX) 40 mg tablet Take 1 tablet by mouth once daily. To be taken for 1 year after the surgery albuterol (PROVENTIL) 2.5 mg /3 mL (0.083 %) nebulizer solution Use 3 mL via nebulizer every 4 hours as needed for wheezing/shortness of breath. albuterol HFA (PROAIR HFA) 90 mcg/actuation inhaler Inhale 2 Puffs as instructed every 4 hours as needed. SUMAtriptan (IMITREX) 100 mg tablet Take 1 tablet by mouth as needed. START AT ONSET OF HEADACHE. MAY REPEAT DOSE AFTER 2 HOURS. ammonium lactate (AMLACTIN) 12 % lotion apply to rash 2-3 times a day as needed No current facility-administered medications for this visit. ALLERGIES: ALLERGIES Allergen Reactions Environmental [Othe* Gabapentin Other: See Comments Prednisone Mental Status Change Topamax [Topiramate] Other: See Comments anxiety PAST MEDICAL HISTORY Diagnosis Date Autoimmune disease (HCC) Degeneration of intervertebral disc, site unspecified Depression Migraines Mild intermittent asthma Obesity Osteoarthritis of both knees Plantar fasciitis Psoriasis PAST SURGICAL HISTORY Procedure Laterality Date ADENOIDECTOMY PRIMARY <AGE 11 Adenoidectomy DELIVERY ONLY , low cervical LAPAROSCOPY SURG CHOLECYSTECTOMY 2013 PAST SURGICAL HISTORY OF Bilateral arthoscopy to ankles, scar tissue removal and tendon lengthening TONSILLECTOMY PRIMARY/SECONDARY <AGE 11 Tonsillectomy FAMILY HISTORY Problem Relation Age of Onset Diabetes Maternal Grandmother Diabetes Maternal Uncle Social History Tobacco Use Smoking status: Former Packs/day: 0.25 Years: 24.00 Pack years: 6.00 Types: Cigarettes Start date: 03/19/1990 Quit date: 2014 Years since quittin.2 Smokeless tobacco: Never Tobacco comments: quit in 05/15 Vaping Use Vaping Use: Never used Substance Use Topics Alcohol use: Yes Comment: rarely Drug use: No Reviewed current medications, allergies, past medical history, surgical history, family history and social history today. VITALS: BP 104/64 Pulse 71 Ht 175.3 cm (5' 9 ) Wt 127.9 kg (282 lb) LMP 03/15/2022 SpO2 99% BMI 41.64 kg/m Last 4 Encounter Wt Readings: Date: Wt: 04/11/2022 133.4 kg (294 lb) 03/31/2022 136.6 kg (301 lb 3.2 oz) 02/24/2022 140.2 kg (309 lb) 02/22/2022 142.7 kg (314 lb 9.6 oz) PHYSICAL EXAMINATION: General appearance: Well appearing, alert, in no acute distress, well-hydrated, well nourished. Skin: Skin color, texture, turgor normal, no suspicious rashes or lesions Head: Normocephalic, no masses, lesions, tenderness or abnormalities BACK: Normal curvature of spine. No spine tenderness. Straight leg test negative. Deep tendon reflexes 2+/4 at patellas. Normal lower extremity strength. ASSESSMENT/PLAN: 1. Sciatica, right side - ICD9: 724.3, ICD10: M54.31 - Discussed risks and benefits of new medication with the patient. Advised them to call if any side effects or questions. Red flags for re-assessment reviewed with patient in detail. Call if symptoms worsen at all or if not better in one to two weeks Reviewed diagnosis and treatment options in detail. Questions were answered. Patient expressed understanding of treatment plan. - METHYLPREDNISOLONE 4 MG TABLETS IN A DOSE PACK - CYCLOBENZAPRINE 10 MG TABLET Toi Escamilla MD documented in this encounter [place] 05-21-2022 Miscellaneous Notes Patient has been identified by name and date of : Yes Patient phones for refill(s): Requested Prescriptions Pending Prescriptions Disp Refills pregabalin (LYRICA) 75 mg capsule 60 capsule 5 Sig: Take 1 capsule by mouth twice daily for 30 days. Date of last office visit in primary care: 12/10/2021 Please advise. Thank you. Anna Myles LPN documented in this encounter [place] 05-19-2022 Miscellaneous Notes The following approved medications have been transmitted electronically. Requested Prescriptions Signed Prescriptions Disp Refills norethindrone (AYGESTIN) 5 mg tablet 14 tablet 0 Sig: Take 1 tablet by mouth twice daily for 7 days. Authorizing Provider: MAKEDA SMITH Pharmacy Information Pharmacy Address [phone] [place] [address] Sarah Meredith RN Please let the patient know that I did send some Aygestin in for her. She can take 1 pill twice a day for 7 days if needed for bleeding. Makeda Smith APRN.CNP Patient is leaving for honeymoon on Thursday. Started period today. She is worried she will have prolonged bleeding issues like she did previously when she was seen 03/31/2022 by Makeda Smith. Patient asking for medication to hopefully prevent this as discussed at that visit for her honeymoon. COIP. Patient would like med called [facility] documented in this encounter [place] 04-11-2022 Note HNO ID: [id number] Author: Alison Jules, DO Service: ? Author Type: Physician Type: Progress Notes Filed: 04/11/2022 12:06 PM Note Text: DISTANCE HEALTH VISIT This Team Access Model visit is a virtual encounter. It required patient-provider interaction for the medical decision making as documented below. BMI OM PostOp Clinic Note April 11, 2022 Index Surgery Date of Surgery: 10/01/2021 Surgeon: Naresh Schmitz MD Surgical Procedure: LAPAROSCOPIC GASTRIC RESTRICTIVE SURG W/ BYPASS AND RADHA-EN-Y 150CM OR LESS Pre-surgical weight: 178.7 kg (394 lb) Override Index Surgery Information? No Other Bariatric Surgeries None Visit: 6 months Today's Visit: There were no vitals taken for this visit. Current self reported weight of 294 lbs. Last Visit: Wt: 136.6 kg (301 lb 3.2 oz) BMI: 44.48 kg/(m2) Total weight loss: 100 lbs [place] weight: 76.8 kg (169 lb 5 oz) Excess weight: 101.9 kg (224 lb 11 oz) % of excess body weight lost: 178.7 kg (394 lb) (44.44 % of excess weight loss) COMPLICATIONS SINCE LAST VISIT?: NONE INTERVAL HISTORY Here for postop visit, 6 months. DIET INTAKE: tolerates Phase V diet, recently seen by the field artillery officer, recommended increasing the daily intake of protein, supplementing with protein powder or a protein drink DAILY SUPPLEMENTS: Yes Calcium: calcium soft chews three times a day. Multivitamin AND Minerals: bariatric [employer] + 45 mg iron daily Iron Supplement: included in multi-vitamin Vitamin B12: included in multivitamin Vitamin D3: included in multi-vitamin + 2000 international unit(s) daily Other: super B complex daily EXERCISE: cardio three times a week SLEEP: VICKY No , CPAP No Current Outpatient Medications Medication Sig loratadine (CLARITIN) 10 mg tablet Take 1 tablet by mouth once daily as needed. cyanocobalamin (VITAMIN B-12) 100 mcg tab Take 100 mcg by mouth once daily. ergocalciferol, vitamin D2, (VITAMIN D2 ORAL) Take by mouth. MULTIVITAMIN NO.43-IRON-FA ORAL Take by mouth. valACYclovir (VALTREX) 500 mg tablet Take 4 tablets twice daily X 1 day. Then start one tablet by mouth daily thereafter. pregabalin (LYRICA) 75 mg capsule Take 1 capsule by mouth twice daily for 30 days. ondansetron (ZOFRAN) 4 mg tablet Take 1 tablet by mouth once daily as needed for nausea/vomiting (for nausea.) for up to [address] (PROTONIX) 40 mg tablet Take 1 tablet by mouth once daily. To be taken for 1 year after the surgery albuterol (PROVENTIL) 2.5 mg /3 mL (0.083 %) nebulizer solution Use 3 mL via nebulizer every 4 hours as needed for wheezing/shortness of breath. albuterol HFA (PROAIR HFA) 90 mcg/actuation inhaler Inhale 2 Puffs as instructed every 4 hours as needed. SUMAtriptan (IMITREX) 100 mg tablet Take 1 tablet by mouth as needed. START AT ONSET OF HEADACHE. MAY REPEAT DOSE AFTER 2 HOURS. ammonium lactate (AMLACTIN) 12 % lotion apply to rash 2-3 times a day as needed No current facility-administered medications for this visit. REVIEW OF SYSTEMS: Denies nausea, vomiting, dumping syndrome, reactive hypoglycemia, gustatory rhinorrhea, Denies abdominal pain, constipation, diarrhea, melena, hematochezia, Denies paresthesias, gait abnormality, fatigue, weakness, lower extremity edema, and Denies taking NSAIDs OBESITY MEDICINE COMORBIDITIES: GERD GERD Requiring medication PHYSICAL EXAM: [facility] 03/15/2022 Assessment 41 year old female with Class III obesity 6 months. s/p LAPAROSCOPIC GASTRIC RESTRICTIVE SURG W/ BYPASS AND RADHA-EN-Y 150CM OR LESS, responding well and has lost 200 pounds and/or 44% excess weight loss at the 6-month visit. She is taking all her multivitamins and minerals appropriately. She was recently seen by the dietitian with a recommendation to try and include at least 92 g of protein per day. Patient Active Problem List Morbid obesity (HCC) Degenerative joint disease involving multiple joints Limited mobility History of gastroesophageal reflux (GERD) Morbid obesity due to excess calories (HCC) SVT (supraventricular tachycardia) ([facility]) Palpitations Chest pain SOB (shortness of breath) Cervical radiculopathy Class 3 severe obesity due to excess calories without serious comorbidity with body mass index (BMI) of 50.0 to 59.9 in adult (HCC) Mild intermittent asthma Gastroesophageal reflux disease without esophagitis Lumbar sprain Migraines Seasonal allergies Plantar fasciitis Other joint derangement, not elsewhere classified, ankle and foot Other enthesopathy of ankle and tarsus Internal derangement of knee Resolved Hospital Problems No resolved problems to display. Plan -Schedule annual labs in the next several weeks -Continue to include protein with all meals for total of 92 g on a daily basis. DISPOSITION: Return 6 month for a one year Post-op follow up/ individual office visit EDUCATION: Encouraged to continue with healthy lifestyle changes and inc (more content not included)... [facility] 04-11-2022 History of Present illness Narrative DISTANCE HEALTH VISIT This Team Access Model visit is a virtual encounter. It required patient-provider interaction for the medical decision making as documented below. BMI OM PostOp Clinic Note April 11, 2022 Index Surgery Date of Surgery: 10/01/2021 Surgeon: Naresh Schmitz MD Surgical Procedure: LAPAROSCOPIC GASTRIC RESTRICTIVE SURG W/ BYPASS & RADHA-EN-Y 150CM OR LESS Pre-surgical weight: 178.7 kg (394 lb) Override Index Surgery Information? No Other Bariatric Surgeries None Visit: 6 months Today's Visit: There were no vitals taken for this visit. Current self reported weight of 294 lbs. Last Visit: Wt: 136.6 kg (301 lb 3.2 oz) BMI: 44.48 kg/(m^2) Total weight loss: 100 lbs [place] weight: 76.8 kg (169 lb 5 oz) Excess weight: 101.9 kg (224 lb 11 oz) % of excess body weight lost: 178.7 kg (394 lb) (44.44 % of excess weight loss) COMPLICATIONS SINCE LAST VISIT?: NONE INTERVAL HISTORY Here for postop visit, 6 months. DIET INTAKE: tolerates Phase V diet, recently seen by the field artillery officer, recommended increasing the daily intake of protein, supplementing with protein powder or a protein drink DAILY SUPPLEMENTS: Yes Calcium: calcium soft chews three times a day. Multivitamin & Minerals: bariatric [employer] + 45 mg iron daily Iron Supplement: included in multi-vitamin Vitamin B12: included in multivitamin Vitamin D3: included in multi-vitamin + 2000 international unit(s) daily Other: super B complex daily EXERCISE: cardio three times a week SLEEP: VICKY No , CPAP No Current Outpatient Medications Medication Sig loratadine (CLARITIN) 10 mg tablet Take 1 tablet by mouth once daily as needed. cyanocobalamin (VITAMIN B-12) 100 mcg tab Take 100 mcg by mouth once daily. ergocalciferol, vitamin D2, (VITAMIN D2 ORAL) Take by mouth. MULTIVITAMIN NO.43-IRON-FA ORAL Take by mouth. valACYclovir (VALTREX) 500 mg tablet Take 4 tablets twice daily X 1 day. Then start one tablet by mouth daily thereafter. pregabalin (LYRICA) 75 mg capsule Take 1 capsule by mouth twice daily for 30 days. ondansetron (ZOFRAN) 4 mg tablet Take 1 tablet by mouth once daily as needed for nausea/vomiting (for nausea.) for up to [address] (PROTONIX) 40 mg tablet Take 1 tablet by mouth once daily. To be taken for 1 year after the surgery albuterol (PROVENTIL) 2.5 mg /3 mL (0.083 %) nebulizer solution Use 3 mL via nebulizer every 4 hours as needed for wheezing/shortness of breath. albuterol HFA (PROAIR HFA) 90 mcg/actuation inhaler Inhale 2 Puffs as instructed every 4 hours as needed. SUMAtriptan (IMITREX) 100 mg tablet Take 1 tablet by mouth as needed. START AT ONSET OF HEADACHE. MAY REPEAT DOSE AFTER 2 HOURS. ammonium lactate (AMLACTIN) 12 % lotion apply to rash 2-3 times a day as needed No current facility-administered medications for this visit. REVIEW OF SYSTEMS: Denies nausea, vomiting, dumping syndrome, reactive hypoglycemia, gustatory rhinorrhea, Denies abdominal pain, constipation, diarrhea, melena, hematochezia, Denies paresthesias, gait abnormality, fatigue, weakness, lower extremity edema, and Denies taking NSAIDs OBESITY MEDICINE COMORBIDITIES: GERD GERD Requiring medication PHYSICAL EXAM: LMP 03/15/2022 Assessment 41 year old female with Class III obesity 6 months. s/p LAPAROSCOPIC GASTRIC RESTRICTIVE SURG W/ BYPASS & RADHA-EN-Y 150CM OR LESS, responding well and has lost 200 pounds and/or 44% excess weight loss at the 6-month visit. She is taking all her multivitamins and minerals appropriately. She was recently seen by the dietitian with a recommendation to try and include at least 92 g of protein per day. Patient Active Problem List Morbid obesity (HCC) Degenerative joint disease involving multiple joints Limited mobility History of gastroesophageal reflux (GERD) Morbid obesity due to excess calories (HCC) SVT (supraventricular tachycardia) ([facility]) Palpitations Chest pain SOB (shortness of breath) Cervical radiculopathy Class 3 severe obesity due to excess calories without serious comorbidity with body mass index (BMI) of 50.0 to 59.9 in adult (HCC) Mild intermittent asthma Gastroesophageal reflux disease without esophagitis Lumbar sprain Migraines Seasonal allergies Plantar fasciitis Other joint derangement, not elsewhere classified, ankle and foot Other enthesopathy of ankle and tarsus Internal derangement of knee Resolved Hospital Problems No resolved problems to display. Plan -Schedule annual labs in the next several weeks -Continue to include protein with all meals for total of 92 g on a daily basis. DISPOSITION: Return 6 month for a one year Post-op follow up/ individual office visit EDUCATION: Encouraged to continue with healthy lifestyle changes and incorporate cardiovascular and resistance training, Discussed weight loss expectations after bariatric and metabolic surgery, Advised PT to avoid NSAIDs, smoking tobacco given increased risk of marginal ulcers, or Discussed importance of protein intake as per the RDN note REFERRALS: N/A LABS: Today: See [facility] Orders I spent a total of 35 minutes on the date of the service which included completing clinical documentation, obtaining and/or reviewing separately obtained history, counseling and educating the patient/family/caregiver, and ordering medications, tests, or procedures. Medical Decision Making: Medical Decision Making Level: 1 - N/A Alison Jules DO documented in this encounter [facility] 04-02-2022 Miscellaneous Notes Patient has been identified by name and date of : Yes Requested Prescriptions Pending Prescriptions Disp Refills loratadine (CLARITIN) 10 mg tablet 90 tablet 3 Sig: Take 1 tablet by mouth once daily as needed. RX INSTRUCTIONS: Patient aware RX will be sent to pharmacy. No need to notify patient. Concha Moreno LPN documented in this encounter [facility] 03-31-2022 Note HNO ID: [id number] Author: Makeda Smith APRN.[employer] Service: ? Author Type: Nurse Practitioner Type: Progress Notes Filed: 03/31/2022 3:08 PM Note Text: Raul Fleming is a 41 year old female who presents for problem visit prolong menses for 2 week(s). HPI: menses is always regular lasting 3-5 days. This last period started on 03/15/22 bleeding just stopped on 03/30/21. Bleeding the first few days was just like a normal period and then bleeding slowed to light spotting, then picked back up for a few days and decrease to light spotting which stopped yesterday. Patient denies any abnormal periods in the past, she has currently lost over 100 pounds. 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 History Comments: Sexual Activity: Yes; Male Contraception: No contraception data on record PAST MEDICAL HISTORY Diagnosis Date Autoimmune disease (HCC) Degeneration of intervertebral disc, site unspecified Depression Migraines Mild intermittent asthma Obesity Osteoarthritis of both knees Plantar fasciitis Psoriasis PAST SURGICAL HISTORY Procedure Laterality Date ADENOIDECTOMY PRIMARY Adenoidectomy DELIVERY ONLY , low cervical LAPAROSCOPY SURG CHOLECYSTECTOMY 2013 PAST SURGICAL HISTORY OF Bilateral arthoscopy to ankles, scar tissue removal and tendon lengthening TONSILLECTOMY PRIMARY/SECONDARY Tonsillectomy FAMILY HISTORY Problem Relation Age of Onset Diabetes Maternal Grandmother Diabetes Maternal Uncle Social History Tobacco Use Smoking status: Former Packs/day: 0.25 Years: 24.00 Pack years: 6.00 Types: Cigarettes Start date: 03/19/1990 Quit date: 2014 Years since quittin.1 Smokeless tobacco: Never Tobacco comments: quit in 05/15 Vaping Use Vaping Use: Never used Substance Use Topics Alcohol use: Yes Comment: rarely Drug use: No Current Outpatient Medications Medication Sig valACYclovir (VALTREX) 500 mg tablet Take 4 tablets twice daily X 1 day. Then start one tablet by mouth daily thereafter. pregabalin (LYRICA) 75 mg capsule Take 1 capsule by mouth twice daily for 30 days. ondansetron (ZOFRAN) 4 mg tablet Take 1 tablet by mouth once daily as needed for nausea/vomiting (for nausea.) for up to [address] (PROTONIX) 40 mg tablet Take 1 tablet by mouth once daily. To be taken for 1 year after the surgery albuterol (PROVENTIL) 2.5 mg /3 mL (0.083 %) nebulizer solution Use 3 mL via nebulizer every 4 hours as needed for wheezing/shortness of breath. albuterol HFA (PROAIR HFA) 90 mcg/actuation inhaler Inhale 2 Puffs as instructed every 4 hours as needed. SUMAtriptan (IMITREX) 100 mg tablet Take 1 tablet by mouth as needed. START AT ONSET OF HEADACHE. MAY REPEAT DOSE AFTER 2 HOURS. loratadine (CLARITIN) 10 mg tablet Take 1 tablet by mouth once daily as needed. ammonium lactate (AMLACTIN) 12 % lotion apply to rash 2-3 times a day as needed cyanocobalamin (VITAMIN B-12) 100 mcg tab Take 100 mcg by mouth once daily. ergocalciferol, vitamin D2, (VITAMIN D2 ORAL) Take by mouth. MULTIVITAMIN NO.43-IRON-FA ORAL Take by mouth. diphenhydrAMINE 12.5 mg/5 mL lidocaine visc 2% MAALOX 200-200-20/5 mL nystatin oral liquid 4:1.66:1:1 (CPD) Take 5 mL by mouth every 6 hours as needed. Swish and swallow. omeprazole (PRILOSEC) 40 mg capsule Take 1 capsule by mouth twice daily. No current facility-administered medications for this visit. Allergies As of Date: 03/31/2022 Allergen Noted Reaction ENVIRONMENTAL [OTHER] 06/26/2005 GABAPENTIN 04/13/2014 Other: See Comments PREDNISONE 04/18/2015 Mental Status Change TOPAMAX [TOPIRAMATE] 12/12/2016 Other: See Comments Fully Assessed 03/31/2022 REVIEW OF SYSTEMS Expanded ROS: N/A Allergies and current medication updated:Yes EXAM: Wt 301 lb 3.2 oz (136.6kg) LMP 03/15/2022 GENERAL: pleasant, female in no apparent distress HEENT: Normocephalic, atraumatic, and no lesions CHEST: Normal inspiratory effort NEURO: alert and oriented x3,exam grossly non-focal ASSESSMENT/PLAN: 1. Irregular menses - ICD9: 626.4, ICD10: N92.6 Patient will monitor the next cycle and if bleeding is irregular again she will contact the office. At that time I would order a pelvic ultrasound. Follow up as needed/annual Makeda Smith APRN.FATEMEH Medical Decision Making: Problems: Low: Acute, uncomplicated illness or injury Risk: Low: Low risk from testing/treatment Medical Decision Making Level: 3 - Low [facility] 03-31-2022 History of Present illness Narrative Raul Fleming is a 41 year old female who presents for problem visit prolong menses for 2 week(s). HPI: menses is always regular lasting 3-5 days. This last period started on 03/15/22 bleeding just stopped on 03/30/21. Bleeding the first few days was just like a normal period and then bleeding slowed to light spotting, then picked back up for a few days and decrease to light spotting which stopped yesterday. Patient denies any abnormal periods in the past, she has currently lost over 100 pounds. 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 History Comments: Sexual Activity: Yes; Male Contraception: No contraception data on record PAST MEDICAL HISTORY Diagnosis Date Autoimmune disease (HCC) Degeneration of intervertebral disc, site unspecified Depression Migraines Mild intermittent asthma Obesity Osteoarthritis of both knees Plantar fasciitis Psoriasis PAST SURGICAL HISTORY Procedure Laterality Date ADENOIDECTOMY PRIMARY <AGE 11 Adenoidectomy DELIVERY ONLY , low cervical LAPAROSCOPY SURG CHOLECYSTECTOMY 2013 PAST SURGICAL HISTORY OF Bilateral arthoscopy to ankles, scar tissue removal and tendon lengthening TONSILLECTOMY PRIMARY/SECONDARY <AGE 11 Tonsillectomy FAMILY HISTORY Problem Relation Age of Onset Diabetes Maternal Grandmother Diabetes Maternal Uncle Social History Tobacco Use Smoking status: Former Packs/day: 0.25 Years: 24.00 Pack years: 6.00 Types: Cigarettes Start date: 03/19/1990 Quit date: 2014 Years since quittin.1 Smokeless tobacco: Never Tobacco comments: quit in 05/15 Vaping Use Vaping Use: Never used Substance Use Topics Alcohol use: Yes Comment: rarely Drug use: No Current Outpatient Medications Medication Sig valACYclovir (VALTREX) 500 mg tablet Take 4 tablets twice daily X 1 day. Then start one tablet by mouth daily thereafter. pregabalin (LYRICA) 75 mg capsule Take 1 capsule by mouth twice daily for 30 days. ondansetron (ZOFRAN) 4 mg tablet Take 1 tablet by mouth once daily as needed for nausea/vomiting (for nausea.) for up to [address] (PROTONIX) 40 mg tablet Take 1 tablet by mouth once daily. To be taken for 1 year after the surgery albuterol (PROVENTIL) 2.5 mg /3 mL (0.083 %) nebulizer solution Use 3 mL via nebulizer every 4 hours as needed for wheezing/shortness of breath. albuterol HFA (PROAIR HFA) 90 mcg/actuation inhaler Inhale 2 Puffs as instructed every 4 hours as needed. SUMAtriptan (IMITREX) 100 mg tablet Take 1 tablet by mouth as needed. START AT ONSET OF HEADACHE. MAY REPEAT DOSE AFTER 2 HOURS. loratadine (CLARITIN) 10 mg tablet Take 1 tablet by mouth once daily as needed. ammonium lactate (AMLACTIN) 12 % lotion apply to rash 2-3 times a day as needed cyanocobalamin (VITAMIN B-12) 100 mcg tab Take 100 mcg by mouth once daily. ergocalciferol, vitamin D2, (VITAMIN D2 ORAL) Take by mouth. MULTIVITAMIN NO.43-IRON-FA ORAL Take by mouth. diphenhydrAMINE 12.5 mg/5 mL lidocaine visc 2% MAALOX 200-200-20/5 mL nystatin oral liquid 4:1.66:1:1 (CPD) Take 5 mL by mouth every 6 hours as needed. Swish and swallow. omeprazole (PRILOSEC) 40 mg capsule Take 1 capsule by mouth twice daily. No current facility-administered medications for this visit. Allergies As of Date: 03/31/2022 Allergen Noted Reaction ENVIRONMENTAL [OTHER] 06/26/2005 GABAPENTIN 04/13/2014 Other: See Comments PREDNISONE 04/18/2015 Mental Status Change TOPAMAX [TOPIRAMATE] 12/12/2016 Other: See Comments Fully Assessed 03/31/2022 REVIEW OF SYSTEMS Expanded ROS: N/A Allergies and current medication updated:Yes EXAM: Wt 301 lb 3.2 oz (136.6kg) LMP 03/15/2022 GENERAL: pleasant, female in no apparent distress HEENT: Normocephalic, atraumatic, and no lesions CHEST: Normal inspiratory effort NEURO: alert and oriented x3,exam grossly non-focal ASSESSMENT/PLAN: 1. Irregular menses - ICD9: 626.4, ICD10: N92.6 Patient will monitor the next cycle and if bleeding is irregular again she will contact the office. At that time I would order a pelvic ultrasound. Follow up as needed/annual Makeda Smith APRN.CNP Medical Decision Making: Problems: Low: Acute, uncomplicated illness or injury Risk: Low: Low risk from testing/treatment Medical Decision Making Level: 3 - Low documented in this encounter [facility] 03-08-2022 Miscellaneous Notes March 10, 2022 PID: [id number] Raul Fleming [address] [facility] [address] [place] [address] Dear Ms. Fleming, We are pleased to inform you that the results of your recent breast imaging exam on 03/07/2022 are normal. Early detection of cancer is very important. We also understand recommendations regarding breast cancer screening are controversial. Please discuss with your primary care provider which strategy is best for you and whether a mammogram is right for you. Your imaging studies and report will be kept on file at [facility] as part of your permanent medical record and are available for your continuing care. Thank you for allowing us to help in meeting your health care needs. Sincerely, Dr. Blackburn Interpreting Radiologist [facility] (Normal over 40) documented in this encounter [facility] 03-07-2022 Note HNO ID: [id number] Author: RT Cherie(R) Service: ? Author Type: Technologist Type: Progress Notes Filed: 03/07/2022 10:08 AM Note Text: Radiology Service Progress Note PATIENT NAME: Raul Fleming DATE OF SERVICE: March 07, 2022 TIME: 9:51 AM PATIENT IDENTITY VERIFICATION COMPLETED USING TWO (2) IDENTIFIERS: Name and Date of confirmed by patient verbally. FALL SCREENING: Has the patient had 2 falls in the last year or 1 fall with injury or currently using an Ambulatory Assistive Device (Walker, Cane, Wheelchair, Crutches, etc.)? No PATIENT GENDER DATA: Female. status: : No status: NO. PATIENT RELEVANT IMPLANT DATA REVIEWED: Not Applicable RADIOLOGY DEPARTMENT: Mammography PERIPHERAL IV DATA: Not applicable SIGNED BY: RT Cherie(R) March 07, 2022 9:51 AM [facility] 03-07-2022 History of Present illness Narrative Radiology Service Progress Note PATIENT NAME: Raul Fleming DATE OF SERVICE: March 07, 2022 TIME: 9:51 AM PATIENT IDENTITY VERIFICATION COMPLETED USING TWO (2) IDENTIFIERS: Name and Date of confirmed by patient verbally. FALL SCREENING: Has the patient had 2 falls in the last year or 1 fall with injury or currently using an Ambulatory Assistive Device (Walker, Cane, Wheelchair, Crutches, etc.)? No PATIENT GENDER DATA: Female. status: : No status: NO. PATIENT RELEVANT IMPLANT DATA REVIEWED: Not Applicable RADIOLOGY DEPARTMENT: Mammography PERIPHERAL IV DATA: Not applicable SIGNED BY: RT Cherie(R) March 07, 2022 9:51 AM documented in this encounter [facility] 02-24-2022 Note HNO ID: [id number] Author: Sherri Collazo RD Service: ? Author Type: Registered Dietitian Type: Progress Notes Filed: 02/24/2022 9:54 AM Note Text: The [facility] Therapy: Virtual Consult - Re-assessment This visit was performed virtually due to the COVID-19 epidemic as an effort to protect patients and minimize exposure. Consent from patient received to conduct visit virtually. This Team Access Model visit is a virtual encounter. It required patient-provider interaction for the medical decision making as documented below. Nutrition Diagnosis: Altered Gastrointestinal Tract Function, related to, S/P bariatric surgery, as evidenced by patient update and PSH RECOMMENDED MALNUTRITION DIAGNOSIS: NO MALNUTRITION IDENTIFIED NUTRITION CARE PLAN: Nutrition Intervention 02/24/2022: Modify type and amount of food and beverage 1. Protein: Continue to strive for 92 g protein per day. Eat protein first at all meals. Lean meats, low fat/part skim dairy products, peanut butter, eggs, beans. 2. Eat 4 small meals per day or 3 meals and 1-2 small snacks for additional protein 3. Fluids: 64 oz per day, minimum. No carbonation, no caffeine, no calories, no alcohol. 4. Vitamin/minerals: Take daily Bariatric One a Day multivitamin capsule and calcium citrate 7750-2342 mg/day(3 chews per day) 5. Exercise: Aim for 20-30 min exercise most days, can start in smaller segments such as 10 min 3 x per day. Add weight resistance exercise 3 days per week. Aim to be less sedentary during the day, aim for activity every hour. Limit TV to 2 hours per day 6. Practice these: Eat in this order protein first, vegetable and fruit second * Separate eating and drinking by 30 minutes * Chew your food 20-30x per bite * Meals should last 30 minutes. 7. Slowly increase your calories to goal [phone] per day Nutrition Monitoring AND Evaluation: BMI < 40 Need for Follow up: 1-2 months, [phone] PROGRESS: Interval History: Patient presents for follow up MNT 5 months post op RYGB Net weight loss 106 pounds ( 415 lbs initial) 26% TWL Pre-surgery weight: 394 pounds 59 pounds weight loss since last assessment (368 lbs) Patient reports desired weight of 170-190 pounds Diet recall indicates consistent meal pattern with increased attention to protein intake and and portion control. Small meal sizes and lack of snacks may be limiting overall intake. Patient reports feeling well overall and content with weight loss thus far. 800-1000 calories/day - insufficient 40-50 gm protein intake/day - insufficient 64oz+ fluid intake/day - meeting needs Taking all vitamin/minerals. Labs not yet available for review at this time Resting Metabolic Rate: 2128 Energy needs for weight loss 9839-4003 (10-15 delicia/kg current weight) Protein needs: 92 grams protein per day (1.2 - 1.5 g/kg IBW kg) Exercise - minimal, falling below recommendations Nutrition Intervention 10/18/21: 1. Continue vitamins Bariatric one a day + calcium citrate 3/day 2. Protein goal: 92 grams protein/day 3. Fluid goal: 64 ounces per day (no carbonation, caffeine, calories, alcohol) - separate foods and fluids by 20 minutes, small sips, no straw 4. Exercise goal: begin low intensity exercise until cleared by surgeon. 5. 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 RMR can't be calculated - Weight unrecorded in last 120 days. Malnutrition Screening Significant unintentional weight loss? No Eating less than 75% of usual intake for more than 2 weeks? No Potential Signs of Inflammation: no identifiable sources Nutritional status: Education Materials Provided: None this visit READINESS TO LEARN Cognitive ability: Alert and oriented Motivation to learn: Interested Family support: Unable to assess - Family not present Instruction provided to: Patient Patient learns best by: Multiple Methods Factors affecting learning: None Physical limitations affecting learning: None Likelihood (more content not included)... [facility] 02-22-2022 Note HNO ID: [id number] Author: Jacqueline Boston APRN.[employer] Service: ? Author Type: Nurse Practitioner Type: Progress Notes Filed: 02/22/2022 12:55 PM Note Text: CC: Patient presents with: Sore Throat: GLYNN, low fever x last night HPI: Raul Fleming is a 41 year old female who presents to the office with complaint of sore throat since last night. Symptoms are worsening Associated symptoms includes headache. Denies body aches, fever, cough, nausea, vomiting , and diarrhea. Treatments tried include nothing so far. with no relief of symptoms. Sick contacts: unknown. History of asthma, frequent episodes of bronchitis, chronic bronchitis, bronchiectasis or COPD: No Smoker: No Seasonal/environmental allergies: No The ROS is otherwise negative. The patient's pmh, medications, allergies, and past visits are reviewed. PHYSICAL EXAM: BP 122/70 Pulse 84 Temp 37.3 ?C (99.1 ?F) Resp 18 Wt (!) 142.7 kg (314 lb 9.6 oz) LMP 12/03/2021 SpO2 98% BMI 46.46 kg/m? General appearance: alert, cooperative, pleasant, in no acute distress Head: Normocephalic Eyes: EOM's intact, conjunctiva pink and moist, no icterus, sclera white, non-injected Ears: Right ear: External ear/canal- Normal, TM - clear with good landmarks. Left ear: External ear/canal- Normal, TM - clear with good landmarks Oropharynx:moderate erythema, without exudates present Neck:mild cervical adenopathy Heart: Negative. RRR without obvious murmur, gallop, or rubs. No ectopy. Lungs: clear to auscultation, without rales or wheeze, good air exchange PAST MEDICAL HISTORY Diagnosis Date Autoimmune disease (HCC) Degeneration of intervertebral disc, site unspecified Depression Migraines Mild intermittent asthma Obesity Osteoarthritis of both knees Plantar fasciitis Psoriasis PAST SURGICAL HISTORY Procedure Laterality Date ADENOIDECTOMY PRIMARY Adenoidectomy DELIVERY ONLY , low cervical LAPAROSCOPY SURG CHOLECYSTECTOMY 2013 PAST SURGICAL HISTORY OF Bilateral arthoscopy to ankles, scar tissue removal and tendon lengthening TONSILLECTOMY PRIMARY/SECONDARY Tonsillectomy ALLERGIES Environmental [Other], Gabapentin, Prednisone, and Topamax [Topiramate] MEDICATIONS valACYclovir (VALTREX) 500 mg tablet Take 4 tablets twice daily X 1 day. Then start one tablet by mouth daily thereafter. diphenhydrAMINE 12.5 mg/5 mL lidocaine visc 2% MAALOX 200-200-20/5 mL nystatin oral liquid 4:1.66:1:1 (CPD) Take 5 mL by mouth every 6 hours as needed. Swish and swallow. pregabalin (LYRICA) 75 mg capsule Take 1 capsule by mouth twice daily for 30 days. ondansetron (ZOFRAN) 4 mg tablet Take 1 tablet by mouth once daily as needed for nausea/vomiting (for nausea.) for up to [address] (PROTONIX) 40 mg tablet Take 1 tablet by mouth once daily. To be taken for 1 year after the surgery omeprazole (PRILOSEC) 40 mg capsule Take 1 capsule by mouth twice daily. albuterol (PROVENTIL) 2.5 mg /3 mL (0.083 %) nebulizer solution Use 3 mL via nebulizer every 4 hours as needed for wheezing/shortness of breath. albuterol HFA (PROAIR HFA) 90 mcg/actuation inhaler Inhale 2 Puffs as instructed every 4 hours as needed. SUMAtriptan (IMITREX) 100 mg tablet Take 1 tablet by mouth as needed. START AT ONSET OF HEADACHE. MAY REPEAT DOSE AFTER 2 HOURS. loratadine (CLARITIN) 10 mg tablet Take 1 tablet by mouth once daily as needed. ammonium lactate (AMLACTIN) 12 % lotion apply to rash 2-3 times a day as needed FAMILY HISTORY Problem Relation Age of Onset Diabetes Maternal Grandmother Diabetes Maternal Uncle Social History Tobacco Use Smoking status: Former Packs/day: 0.25 Years: 24.00 Pack years: 6.00 Types: Cigarettes Start date: 03/19/1990 Quit date: 2014 Years since quittin.0 Smokeless tobacco: Never Tobacco comments: quit in 05/15 Vaping Use Vaping Use: Never used Substance Use Topics Alcohol use: Yes Comment: rarely Drug use: No ASSESSMENT/PLAN: 1. Sore throat - ICD9: 462, ICD10: J02.9 (primary diagnosis) - STREP A MOLECULAR (POC) - positive 2. Strep throat - ICD9: 034.0, ICD10: J02.0 Amoxicillin twice a day for 10 days Prescription instructions reviewed with patient as applicable. Potential red flag symptoms discussed with the patient. Reviewed appropriate action plan to take if red flag symptoms occur. Patient agreeable to treatment plan. Jacqueline Boston APRN.[facility] 02-22-2022 History of Present illness Narrative CC: Patient presents with: Sore Throat: GLYNN, low fever x last night HPI: Raul Fleming is a 41 year old female who presents to the office with complaint of sore throat since last night. Symptoms are worsening Associated symptoms includes headache. Denies body aches, fever, cough, nausea, vomiting , and diarrhea. Treatments tried include nothing so far. with no relief of symptoms. Sick contacts: unknown. History of asthma, frequent episodes of bronchitis, chronic bronchitis, bronchiectasis or COPD: No Smoker: No Seasonal/environmental allergies: No The ROS is otherwise negative. The patient's pmh, medications, allergies, and past visits are reviewed. PHYSICAL EXAM: BP 122/70 Pulse 84 Temp 37.3 C (99.1 F) Resp 18 Wt (!) 142.7 kg (314 lb 9.6 oz) LMP 12/03/2021 SpO2 98% BMI 46.46 kg/m General appearance: alert, cooperative, pleasant, in no acute distress Head: Normocephalic Eyes: EOM's intact, conjunctiva pink and moist, no icterus, sclera white, non-injected Ears: Right ear: External ear/canal- Normal, TM - clear with good landmarks. Left ear: External ear/canal- Normal, TM - clear with good landmarks Oropharynx:moderate erythema, without exudates present Neck:mild cervical adenopathy Heart: Negative. RRR without obvious murmur, gallop, or rubs. No ectopy. Lungs: clear to auscultation, without rales or wheeze, good air exchange PAST MEDICAL HISTORY Diagnosis Date Autoimmune disease (HCC) Degeneration of intervertebral disc, site unspecified Depression Migraines Mild intermittent asthma Obesity Osteoarthritis of both knees Plantar fasciitis Psoriasis PAST SURGICAL HISTORY Procedure Laterality Date ADENOIDECTOMY PRIMARY <AGE 11 Adenoidectomy DELIVERY ONLY , low cervical LAPAROSCOPY SURG CHOLECYSTECTOMY 2013 PAST SURGICAL HISTORY OF Bilateral arthoscopy to ankles, scar tissue removal and tendon lengthening TONSILLECTOMY PRIMARY/SECONDARY <AGE 11 Tonsillectomy ALLERGIES Environmental [Other], Gabapentin, Prednisone, and Topamax [Topiramate] MEDICATIONS valACYclovir (VALTREX) 500 mg tablet Take 4 tablets twice daily X 1 day. Then start one tablet by mouth daily thereafter. diphenhydrAMINE 12.5 mg/5 mL lidocaine visc 2% MAALOX 200-200-20/5 mL nystatin oral liquid 4:1.66:1:1 (CPD) Take 5 mL by mouth every 6 hours as needed. Swish and swallow. pregabalin (LYRICA) 75 mg capsule Take 1 capsule by mouth twice daily for 30 days. ondansetron (ZOFRAN) 4 mg tablet Take 1 tablet by mouth once daily as needed for nausea/vomiting (for nausea.) for up to [address] (PROTONIX) 40 mg tablet Take 1 tablet by mouth once daily. To be taken for 1 year after the surgery omeprazole (PRILOSEC) 40 mg capsule Take 1 capsule by mouth twice daily. albuterol (PROVENTIL) 2.5 mg /3 mL (0.083 %) nebulizer solution Use 3 mL via nebulizer every 4 hours as needed for wheezing/shortness of breath. albuterol HFA (PROAIR HFA) 90 mcg/actuation inhaler Inhale 2 Puffs as instructed every 4 hours as needed. SUMAtriptan (IMITREX) 100 mg tablet Take 1 tablet by mouth as needed. START AT ONSET OF HEADACHE. MAY REPEAT DOSE AFTER 2 HOURS. loratadine (CLARITIN) 10 mg tablet Take 1 tablet by mouth once daily as needed. ammonium lactate (AMLACTIN) 12 % lotion apply to rash 2-3 times a day as needed FAMILY HISTORY Problem Relation Age of Onset Diabetes Maternal Grandmother Diabetes Maternal Uncle Social History Tobacco Use Smoking status: Former Packs/day: 0.25 Years: 24.00 Pack years: 6.00 Types: Cigarettes Start date: 03/19/1990 Quit date: 2014 Years since quittin.0 Smokeless tobacco: Never Tobacco comments: quit in 05/15 Vaping Use Vaping Use: Never used Substance Use Topics Alcohol use: Yes Comment: rarely Drug use: No ASSESSMENT/PLAN: 1. Sore throat - ICD9: 462, ICD10: J02.9 (primary diagnosis) - STREP A MOLECULAR (POC) - positive 2. Strep throat - ICD9: 034.0, ICD10: J02.0 Amoxicillin twice a day for 10 days Prescription instructions reviewed with patient as applicable. Potential red flag symptoms discussed with the patient. Reviewed appropriate action plan to take if red flag symptoms occur. Patient agreeable to treatment plan. Jacqueline Boston APRN.[facility] documented in this encounter [place] 01-20-2022 Miscellaneous Notes Letter done in [facility] Leigh Morel MD Patient calling with request for work excuse letter for COVID symptoms. She is asking to be off 01/15-01/22. Symptoms started on 01/15. She was seen on 01/[address] Morel and given script for Paxlovid. She states yesterday she was still a little SOB. Today feels better but still running low grade fever. Feels like she is improving enough to go back to work on Thursday. Please send letter to My Chart. Roxie Torres RN documented in this encounter [place] 01-18-2022 Note HNO ID: [id number] Author: Leigh Morel MD Service: ? Author Type: Physician Type: Progress Notes Filed: 01/18/2022 11:34 AM Note Text: Nirmatrelvir/Ritonavir (Paxlovid) Eligibility and Patient Discussion [place] Formulary Restriction Criteria: Adult outpatients 18 years and older with ALL of the following: [x] Patient has positive SARS-COV-2 viral test (PCR or antigen test) during current illness [x] Patient has symptoms for 5 days or less [x] Not requiring hospitalization at any time for management of COVID-19 [x] Not requiring supplemental oxygen or a change in baseline supplemental oxygen [x] Not utilized for pre-exposure or post-exposure prophylaxis for prevention of COVID-19 [x] Patient does not have severe renal impairment (eGFR < 30 mL/min) or severe hepatic impairment (Child-Bass Class C) [x] Meeting at least one of the criteria for high risk of progression to severe COVID-19: [] Age over 65 years [] Cancer [] Chronic kidney disease [] Chronic liver disease [] Chronic lung diseases, including cystic fibrosis [] Dementia or other neurological conditions [] Diabetes (type 1 or type 2) [] Disabilities, including Down syndrome and neurodevelopmental disorders [] Heart conditions [] HIV infection [] Immunocompromised state [] Mental health conditions [] Medical related technological dependence (tracheostomy, gastrostomy, or positive pressure ventilation (not related to COVID) [x] Overweight and obesity (BMI greater or equal to 25 for adults) [] Physical inactivity [] [] Sickle cell disease or thalassemia [] Smoking, current or former [] Solid organ or blood stem cell transplant [] Stroke or cerebrovascular disease [] Substance use disorders [] Tuberculosis [] People from racial and ethnic minority groups Criteria above are met: Yes Date of Positive Test:01/16/22 Date of Symptom Onset: 01/15/22 Patient received COVID vaccine: Yes Drug-Drug interactions reviewed: Yes. No drug interactions were identified. I have discussed the use of the investigational therapeutic, nirmatrelvir/ritonavir, for the treatment of mild to moderate COVID-19 and its use under Emergency Use Authorization with the patient. The patient was informed that nirmatrelvir/ritonavir is not an FDA approved drug and that it is authorized for use under this Emergency Use Authorization. The patient was also informed of the significant known benefits and potential risks of nirmatrelvir/ritonavir, and the extent to which such potential risks and benefits are unknown. The patient was informed that there is mandatory reporting of all medication errors and serious adverse events potentially related to nirmatrelvir/ritonavir treatment within 7 calendar days from the onset of the event and that events up to 28 days after completion of therapy need to be reported. The discussion included alternatives to receiving nirmatrelvir/ritonavir, including clinical trials, and potential the risks and benefits of those alternatives. The patient was provided electronically with the Fact Sheet for Patients, Parents and Caregivers . The patient was also instructed that in addition to the treatment with nirmatrelvir/ritonavir, he/she should continue to self-isolate and use infection control measures (e.g., wear mask, isolate, social distance, avoid sharing personal items, clean and disinfect high touch surfaces, and frequent handwashing) according to CDC guidelines. The patient stated understanding and gave verbal consent to proceeding with nirmatrelvir/ritonavir treatment. Leigh Morel MD January 18, 2022 11:29 AM [facility] 01-18-2022 Note HNO ID: [id number] Author: Leigh Morel MD Service: ? Author Type: Physician Type: Progress Notes Filed: 01/18/2022 11:34 AM Note Text: Chief Complaint Patient presents with: Covid Positive HPI:This Team Access Model visit is a virtual encounter. It required patient-provider interaction for the medical decision making as documented below. Patient was offered a virtual/telemedicine appointment in lieu of an office visit due to recommendations to reduce patient exposure to COVID-19. Patient is aware of limitations of performing the visit without a face to face visit in the office setting and agrees. Established pt of Dr. Escamilla. Covid + Thursday, with symptoms starting on Thursday. Son was ill first, then fiance. Sinus congestion, sore throat, cough, mild SOB, minimal wheezing. Has albuterol and nebulizer if needed. Recent bariatric surgery; avoids NSAIDs Past medical history, appointments, medications, allergies reviewed. Previous Medical History PAST MEDICAL HISTORY Diagnosis Date Autoimmune disease (HCC) Degeneration of intervertebral disc, site unspecified Depression Migraines Mild intermittent asthma Obesity Osteoarthritis of both knees Plantar fasciitis Psoriasis Previous Surgical History PAST SURGICAL HISTORY Procedure Laterality Date ADENOIDECTOMY PRIMARY Adenoidectomy DELIVERY ONLY , low cervical LAPAROSCOPY SURG CHOLECYSTECTOMY 2013 PAST SURGICAL HISTORY OF Bilateral arthoscopy to ankles, scar tissue removal and tendon lengthening TONSILLECTOMY PRIMARY/SECONDARY Tonsillectomy Family History FAMILY HISTORY Problem Relation Age of Onset Diabetes Maternal Grandmother Diabetes Maternal Uncle Patient Allergies ALLERGIES Allergen Reactions Environmental [Othe* Gabapentin Other: See Comments Prednisone Mental Status Change Topamax [Topiramate] Other: See Comments anxiety Current Medications Current Outpatient Medications on File Prior to Visit Medication Sig valACYclovir (VALTREX) 500 mg tablet Take 4 tablets twice daily X 1 day. Then start one tablet by mouth daily thereafter. diphenhydrAMINE 12.5 mg/5 mL lidocaine visc 2% MAALOX 200-200-20/5 mL nystatin oral liquid 4:1.66:1:1 (CPD) Take 5 mL by mouth every 6 hours as needed. Swish and swallow. pregabalin (LYRICA) 75 mg capsule Take 1 capsule by mouth twice daily for 30 days. ondansetron (ZOFRAN) 4 mg tablet Take 1 tablet by mouth once daily as needed for nausea/vomiting (for nausea.) for up to 40 doses. oxyCODONE IR (ROXICODONE) 5 mg immediate release tablet Take 1 tablet by mouth every 8 hours as needed for pain for up to [address] (PROTONIX) 40 mg tablet Take 1 tablet by mouth once daily. To be taken for 1 year after the surgery omeprazole (PRILOSEC) 40 mg capsule Take 1 capsule by mouth twice daily. albuterol (PROVENTIL) 2.5 mg /3 mL (0.083 %) nebulizer solution Use 3 mL via nebulizer every 4 hours as needed for wheezing/shortness of breath. albuterol HFA (PROAIR HFA) 90 mcg/actuation inhaler Inhale 2 Puffs as instructed every 4 hours as needed. SUMAtriptan (IMITREX) 100 mg tablet Take 1 tablet by mouth as needed. START AT ONSET OF HEADACHE. MAY REPEAT DOSE AFTER 2 HOURS. loratadine (CLARITIN) 10 mg tablet Take 1 tablet by mouth once daily as needed. ammonium lactate (AMLACTIN) 12 % lotion apply to rash 2-3 times a day as needed No current facility-administered medications on file prior to visit. Social History Social History Tobacco Use Smoking status: Former Packs/day: 0.25 Years: 24.00 Pack years: 6.00 Types: Cigarettes Start date: 03/19/1990 Quit date: 2014 Years since quittin.9 Smokeless tobacco: Never Tobacco comments: quit in 05/15 Vaping Use Vaping Use: Never used Substance Use Topics Alcohol use: Yes Comment: rarely Drug use: No EXAM: LMP 12/03/2021 NAD, able to speak in complete sentences Health Maintenance List HEPATITIS B(1 of 3 - 3-dose series) Never done PNEUMOCOCCAL(1 - PCV) Never done HIV SCREENING Never done DTAP,TDAP,TD(1 - Tdap) due on 06/29/2013 MAMMOGRAM Never done COVID-19 VACCINE(3 - Booster for Pfizer series) due on 06/21/2020 DEPRESSION ASSESSMENT Never done INFLUENZA(1) due on 10/10/2021 ANNUAL PCP TEAM CHRONIC DISEASE VISIT due on 12/10/2022 PAP TESTING due on 08/07/2024 HPV TESTING due on 08/07/2024 SPIROMETRY Completed HEPATITIS C SCREENING Completed Data reviewed none ASSESSMENT/PLAN: 1. COVID - ICD9: 079.89, ICD10: U07.1 Symptomatic treatment, along with Paxlovid ER if SOB worsens - NIRMATRELVIR 300 MG (150 MG X2)-RITONAVIR 100 MG TABLET,DOSE PACK(EUA) Follow up prn Leigh Morel MD [facility] 01-18-2022 History of Present illness Narrative Nirmatrelvir/Ritonavir (Paxlovid) Eligibility and Patient Discussion [place] Formulary Restriction Criteria: Adult outpatients 18 years and older with ALL of the following: [x] Patient has positive SARS-COV-2 viral test (PCR or antigen test) during current illness [x] Patient has symptoms for 5 days or less [x] Not requiring hospitalization at any time for management of COVID-19 [x] Not requiring supplemental oxygen or a change in baseline supplemental oxygen [x] Not utilized for pre-exposure or post-exposure prophylaxis for prevention of COVID-19 [x] Patient does not have severe renal impairment (eGFR < 30 mL/min) or severe hepatic impairment (Child-Bass Class C) [x] Meeting at least one of the criteria for high risk of progression to severe COVID-19: [] Age over 65 years [] Cancer [] Chronic kidney disease [] Chronic liver disease [] Chronic lung diseases, including cystic fibrosis [] Dementia or other neurological conditions [] Diabetes (type 1 or type 2) [] Disabilities, including Down syndrome and neurodevelopmental disorders [] Heart conditions [] HIV infection [] Immunocompromised state [] Mental health conditions [] Medical related technological dependence (tracheostomy, gastrostomy, or positive pressure ventilation (not related to COVID) [x] Overweight and obesity (BMI greater or equal to 25 for adults) [] Physical inactivity [] [] Sickle cell disease or thalassemia [] Smoking, current or former [] Solid organ or blood stem cell transplant [] Stroke or cerebrovascular disease [] Substance use disorders [] Tuberculosis [] People from racial and ethnic minority groups Criteria above are met: Yes Date of Positive Test:01/16/22 Date of Symptom Onset: 01/15/22 Patient received COVID vaccine: Yes Drug-Drug interactions reviewed: Yes. No drug interactions were identified. I have discussed the use of the investigational therapeutic, nirmatrelvir/ritonavir, for the treatment of mild to moderate COVID-19 and its use under Emergency Use Authorization with the patient. The patient was informed that nirmatrelvir/ritonavir is not an FDA approved drug and that it is authorized for use under this Emergency Use Authorization. The patient was also informed of the significant known benefits and potential risks of nirmatrelvir/ritonavir, and the extent to which such potential risks and benefits are unknown. The patient was informed that there is mandatory reporting of all medication errors and serious adverse events potentially related to nirmatrelvir/ritonavir treatment within 7 calendar days from the onset of the event and that events up to 28 days after completion of therapy need to be reported. The discussion included alternatives to receiving nirmatrelvir/ritonavir, including clinical trials, and potential the risks and benefits of those alternatives. The patient was provided electronically with the Fact Sheet for Patients, Parents and Caregivers . The patient was also instructed that in addition to the treatment with nirmatrelvir/ritonavir, he/she should continue to self-isolate and use infection control measures (e.g., wear mask, isolate, social distance, avoid sharing personal items, clean and disinfect high touch surfaces, and frequent handwashing) according to CDC guidelines. The patient stated understanding and gave verbal consent to proceeding with nirmatrelvir/ritonavir treatment. Leigh Morel MD January 18, 2022 11:29 AM Chief Complaint Patient presents with: Covid Positive HPI:This Team Access Model visit is a virtual encounter. It required patient-provider interaction for the medical decision making as documented below. Patient was offered a virtual/telemedicine appointment in lieu of an office visit due to recommendations to reduce patient exposure to COVID-19. Patient is aware of limitations of performing the visit without a face to face visit in the office setting and agrees. Established pt of Dr. Escamilla. Covid + Thursday, with symptoms starting on Thursday. Son was ill first, then fiance. Sinus congestion, sore throat, cough, mild SOB, minimal wheezing. Has albuterol and nebulizer if needed. Recent bariatric surgery; avoids NSAIDs Past medical history, appointments, medications, allergies reviewed. Previous Medical History PAST MEDICAL HISTORY Diagnosis Date Autoimmune disease (HCC) Degeneration of intervertebral disc, site unspecified Depression Migraines Mild intermittent asthma Obesity Osteoarthritis of both knees Plantar fasciitis Psoriasis Previous Surgical History PAST SURGICAL HISTORY Procedure Laterality Date ADENOIDECTOMY PRIMARY <AGE 11 Adenoidectomy DELIVERY ONLY , low cervical LAPAROSCOPY SURG CHOLECYSTECTOMY 2013 PAST SURGICAL HISTORY OF Bilateral arthoscopy to ankles, scar tissue removal and tendon lengthening TONSILLECTOMY PRIMARY/SECONDARY <AGE 11 Tonsillectomy Family History FAMILY HISTORY Problem Relation Age of Onset Diabetes Maternal Grandmother Diabetes Maternal Uncle Patient Allergies ALLERGIES Allergen Reactions Environmental [Othe* Gabapentin Other: See Comments Prednisone Mental Status Change Topamax [Topiramate] Other: See Comments anxiety Current Medications Current Outpatient Medications on File Prior to Visit Medication Sig valACYclovir (VALTREX) 500 mg tablet Take 4 tablets twice daily X 1 day. Then start one tablet by mouth daily thereafter. diphenhydrAMINE 12.5 mg/5 mL lidocaine visc 2% MAALOX 200-200-20/5 mL nystatin oral liquid 4:1.66:1:1 (CPD) Take 5 mL by mouth every 6 hours as needed. Swish and swallow. pregabalin (LYRICA) 75 mg capsule Take 1 capsule by mouth twice daily for 30 days. ondansetron (ZOFRAN) 4 mg tablet Take 1 tablet by mouth once daily as needed for nausea/vomiting (for nausea.) for up to 40 doses. oxyCODONE IR (ROXICODONE) 5 mg immediate release tablet Take 1 tablet by mouth every 8 hours as needed for pain for up to [address] (PROTONIX) 40 mg tablet Take 1 tablet by mouth once daily. To be taken for 1 year after the surgery omeprazole (PRILOSEC) 40 mg capsule Take 1 capsule by mouth twice daily. albuterol (PROVENTIL) 2.5 mg /3 mL (0.083 %) nebulizer solution Use 3 mL via nebulizer every 4 hours as needed for wheezing/shortness of breath. albuterol HFA (PROAIR HFA) 90 mcg/actuation inhaler Inhale 2 Puffs as instructed every 4 hours as needed. SUMAtriptan (IMITREX) 100 mg tablet Take 1 tablet by mouth as needed. START AT ONSET OF HEADACHE. MAY REPEAT DOSE AFTER 2 HOURS. loratadine (CLARITIN) 10 mg tablet Take 1 tablet by mouth once daily as needed. ammonium lactate (AMLACTIN) 12 % lotion apply to rash 2-3 times a day as needed No current facility-administered medications on file prior to visit. Social History Social History Tobacco Use Smoking status: Former Packs/day: 0.25 Years: 24.00 Pack years: 6.00 Types: Cigarettes Start date: 03/19/1990 Quit date: 2014 Years since quittin.9 Smokeless tobacco: Never Tobacco comments: quit in 05/15 Vaping Use Vaping Use: Never used Substance Use Topics Alcohol use: Yes Comment: rarely Drug use: No EXAM: LMP 12/03/2021 NAD, able to speak in complete sentences Health Maintenance List HEPATITIS B(1 of 3 - 3-dose series) Never done PNEUMOCOCCAL(1 - PCV) Never done HIV SCREENING Never done DTAP,TDAP,TD(1 - Tdap) due on 06/29/2013 MAMMOGRAM Never done COVID-19 VACCINE(3 - Booster for Pfizer series) due on 06/21/2020 DEPRESSION ASSESSMENT Never done INFLUENZA(1) due on 10/10/2021 ANNUAL PCP TEAM CHRONIC DISEASE VISIT due on 12/10/2022 PAP TESTING due on 08/07/2024 HPV TESTING due on 08/07/2024 SPIROMETRY Completed HEPATITIS C SCREENING Completed Data reviewed none ASSESSMENT/PLAN: 1. COVID - ICD9: 079.89, ICD10: U07.1 Symptomatic treatment, along with Paxlovid ER if SOB worsens - NIRMATRELVIR 300 MG (150 MG X2)-RITONAVIR 100 MG TABLET,DOSE PACK(EUA) Follow up prn Leigh Morel MD documented in this encounter [place] 01-18-2022 Instructions Leigh Morel MD - 01/18/2022 11:25 AM EST FACT SHEET FOR PATIENTS, PARENTS, AND CAREGIVERS EMERGENCY USE AUTHORIZATION (EUA) OF PAXLOVID FOR CORONAVIRUS DISEASE 2019 (COVID-19) You are being given this Fact Sheet because your healthcare provider believes it is necessary to provide you with PAXLOVID for the treatment of tqkn-tz-dpmjpndl coronavirus disease (COVID-19) caused by the SARS-CoV-2 virus. This Fact Sheet contains information to help you understand the risks and benefits of taking the PAXLOVID you have received or may receive. The U.S. Food and Drug Administration (FDA) has issued an Emergency Use Authorization (EUA) to make PAXLOVID available during the COVID-19 pandemic (for more details about an EUA please see What is an Emergency Use Authorization? at the end of this document). PAXLOVID is not an FDA-approved medicine in the [place]. Read this Fact Sheet for information about PAXLOVID. Talk to your healthcare provider about your options or if you have any questions. It is your choice to take PAXLOVID. What is COVID-19? COVID-19 is caused by a virus called a coronavirus. You can get COVID-19 through close contact with another person who has the virus. COVID-19 illnesses have ranged from very dfji-my-kcecyg, including illness resulting in . While information so far suggests that most COVID-19 illness is mild, serious illness can happen and may cause some of your other medical conditions to become worse. Older people and people of all ages with severe, long lasting (chronic) medical conditions like heart disease, lung disease, and diabetes, for example seem to be at higher risk of being hospitalized for COVID-19. What is PAXLOVID? PAXLOVID is an investigational medicine used to treat pvpv-fb-plgcolde COVID-19 in adults and children [12 years of age and older weighing at least 88 pounds (40 kg)] with positive results of direct SARS-CoV-2 viral testing, and who are at high risk for progression to severe COVID-19, including hospitalization or . PAXLOVID is investigational because it is still being studied. There is limited information about the safety and effectiveness of using PAXLOVID to treat people with mxjc-rt-qobnsgfm COVID-19. The FDA has authorized the emergency use of PAXLOVID for the treatment of rdlx-dl-pyfswolr COVID-19 in adults and children [12 years of age and older weighing at least 88 pounds (40 kg)] with a positive test for the virus that causes COVID-19, and who are at high risk for progression to severe COVID-19, including hospitalization or , under an EUA. 1 Revised: 26 April 2021 What should I tell my healthcare provider before I take PAXLOVID? Tell your healthcare provider if you: Have any allergies Have liver or kidney disease Are or plan to become Are a child Have any serious illnesses Tell your healthcare provider about all the medicines you take, including prescription and zaii-fcp-iaaitpo medicines, vitamins, and herbal supplements. Some medicines may interact with PAXLOVID and may cause serious side effects. Keep a list of your medicines to show your healthcare provider and pharmacist when you get a new medicine. You can ask your healthcare provider or pharmacist for a list of medicines that interact with PAXLOVID. Do not start taking a new medicine without telling your healthcare provider. Your healthcare provider can tell you if it is safe to take PAXLOVID with other medicines. Tell your healthcare provider if you are taking combined hormonal contraceptive. PAXLOVID may affect how your control pills work. Females who are able to become should use another effective alternative form of contraception or an additional barrier method of contraception. Talk to your healthcare provider if you have any questions about contraceptive methods that might be right for you. How do I take PAXLOVID? PAXLOVID consists of 2 medicines: nirmatrelvir and ritonavir. Take 2 pink tablets of nirmatrelvir with 1 white tablet of ritonavir by mouth 2 times each day (in the morning and in the evening) for 5 days. For each dose, take all 3 tablets at the same time. If you have kidney disease, talk to your healthcare provider. You may need a different dose. Swallow the tablets whole. Do not chew, break, or crush the tablets. Take PAXLOVID with or without food. Do not stop taking PAXLOVID without talking to your healthcare provider, even if you feel better. If you miss a dose of PAXLOVID within 8 hours of the time it is usually taken, take it as soon as you remember. If you miss a dose by more than 8 hours, skip the missed dose and take the next dose at your regular time. Do not take 2 doses of PAXLOVID at the same time. If you take too much PAXLOVID, call your healthcare provider or go to the nearest hospital emergency room right away. If you are taking a ritonavir-or cobicistat-containing medicine to treat hepatitis C or Human Immunodeficiency Virus (HIV), you should continue to take your medicine as prescribed by your healthcare provider. Talk to your healthcare provider if you do not feel better or if you feel worse after 5 days. Who should generally not take PAXLOVID? Do not take PAXLOVID if: You are allergic to nirmatrelvir, ritonavir, or any of the ingredients in PAXLOVID You are taking any of the following medicines: Alfuzosin Pethidine, propoxyphene Ranolazine Amiodarone, dronedarone, flecainide, propafenone, quinidine Colchicine Lurasidone, pimozide, clozapine Dihydroergotamine, ergotamine, methylergonovine Lovastatin, simvastatin Sildenafil (Revatio ) for pulmonary arterial hypertension (PAH) Triazolam, oral midazolam Apalutamide Carbamazepine, phenobarbital, phenytoin Rifampin [place] s Wort (hypericum perforatum) Taking PAXLOVID with these medicines may cause serious or life-threatening side effects or affect how PAXLOVID works. These are not the only medicines that may cause serious side effects if taken with PAXLOVID. PAXLOVID may increase or decrease the levels of multiple other medicines. It is very important to tell your healthcare provider about all of the medicines you are taking because additional laboratory tests or changes in the dose of your other medicines may be necessary while you are taking PAXLOVID. Your healthcare provider may also tell you about specific symptoms to watch out for that may indicate that you need to stop or decrease the dose of some of your other medicines. What are the important possible side effects of PAXLOVID? Possible side effects of PAXLOVID are: Allergic Reactions. Allergic reactions can happen in people taking PAXLOVID, even after only 1 dose. Stop taking PAXLOVID and call your healthcare provider right away if you get any of the following symptoms of an allergic reaction: hives trouble swallowing or breathing swelling of the mouth, lips, or face throat tightness hoarseness skin rash Liver Problems. Tell your healthcare provider right away if you have any of these signs and symptoms of liver problems: loss of appetite, yellowing of your skin and the whites of eyes (jaundice), dark-colored urine, pale colored stools and itchy skin, stomach area (abdominal) pain. Resistance to HIV Medicines. If you have untreated HIV infection, PAXLOVID may lead to some HIV medicines not working as well in the future. Other possible side effects include: altered sense of taste diarrhea high blood pressure muscle aches These are not all the possible side effects of PAXLOVID. Not many people have taken PAXLOVID. Serious and unexpected side effects may happen. PAXLOVID is still being studied, so it is possible that all of the risks are not known at this time. What other treatment choices are there? Veklury (remdesivir) is FDA-approved for the treatment of jgyn-bk-reooshcy COVID-19 in certain adults and children. Talk with your doctor to see if Veklury is appropriate for you. Like PAXLOVID, FDA may also allow for the emergency use of other medicines to treat people with COVID-19. Go to https://www.fda.gov/emergency-prepar edness-andresponse/bpo-skxsj-itbitty fqh-ltm-kxfbkp-framework/emergency-u se-authorization for information on the emergency use of other medicines that are authorized by FDA to treat people with COVID-19. Your healthcare provider may talk with you about clinical trials for which you may be eligible. It is your choice to be treated or not to be treated with PAXLOVID. Should you decide not to receive it or for your child not to receive it, it will not change your standard medical care. What if I am or ? There is assistant professor surgical technology treating women or mothers with PAXLOVID. For a mother and unborn baby, the benefit of taking PAXLOVID may be greater than the risk from the treatment. If you are , discuss your options and specific situation with your healthcare provider. It is recommended that you use effective barrier contraception or do not have sexual activity while taking PAXLOVID. If you are , discuss your options and specific situation with your healthcare provider. How do I report side effects with PAXLOVID? Contact your healthcare provider if you have any side effects that bother you or do not go away. Report side effects to [employer] at www.[employer].gov/[place] or call 5-697-YMW4692 or you can report side effects to [facility] at the contact information provided below. Website Fax number Telephone number [employer] How should I store PAXLOVID? Store PAXLOVID tablets at room temperature, between 68?F to 77?F (20?C to 25?C). How can I learn more about COVID-19? Ask your healthcare provider. Visit https://www.cdc.gov/COVID19. Contact your local or state public health department. What is an Emergency Use Authorization (EUA)? The [place] FDA has made PAXLOVID available under an emergency access mechanism called an Emergency Use Authorization (EUA). The EUA is supported by a [place] of Health and Human Service (HHS) declaration that circumstances exist to justify the emergency use of drugs and biological products during the COVID-19 pandemic. PAXLOVID for the treatment of dodz-lz-ezrdpyxy COVID-19 in adults and children [12 years of age and older weighing at least 88 pounds (40 kg)] with positive results of direct SARS-CoV-2 viral testing, and who are at high risk for progression to severe COVID-19, including hospitalization or , has not undergone the same type of review as an FDA-approved product. In issuing an EUA under the COVID-19 public health emergency, the FDA has determined, among other things, that based on the total amount of scientific evidence available including data from adequate and well-controlled clinical trials, if available, it is reasonable to believe that the product may be effective for diagnosing, treating, or preventing COVID-19, or a serious or life-threatening disease or condition caused by COVID-19; that the known and potential benefits of the product, when used to diagnose, treat, or prevent such disease or condition, outweigh the known and potential risks of such product; and that there are no adequate, approved, and available alternatives. All of these criteria must be met to allow for the product to be used in the treatment of patients during the COVID-19 pandemic. The EUA for PAXLOVID is in effect for the duration of the COVID-19 declaration justifying emergency use of this product, unless terminated or revoked (after which the products may no longer be used under the EUA). Additional Information For general questions, visit the website or call the telephone number provided below. Website Telephone number www.[email or web address] (6-530-K82-TGCO) You can also go to www.[employer] or call for more information. Pfizer Distributed by [employer] [place] [address] [id number] Revised: 26 April 2021 documented in this encounter [place] 01-17-2022 Miscellaneous Notes Noted Leigh Morel MD Patient had trouble with insurance with [employer]. Scheduled patient with Dr. Morel tomorrow for virtual appointment. Amie Cardenas RN Patient calling she tested COVID positive Thursday evening 01/15. Her entire family is COVID positive right now. Patient said she has body aches, headache, cough, fever, sore throat, sinus congestion, she said her head is so congested having problems breathing through her nose. Patient said she is taking tylenol. Patient wanted to know what she could take otc medication, had recent gastric bypass surgery. Advised no my chart virtual visits at this time, advised to go to express care on line and do virtual visit. Patient was doing this as I was still talking to her . Aware note was being sent to her PCP. documented in this encounter [place] 01-10-2022 Note HNO ID: [id number] Author: Santana Flores RD Service: ? Author Type: Registered Dietitian Type: Progress Notes Filed: 01/10/2022 2:36 PM Note Text: Patient did not attend today's appointment. Santana Flores RD [facility] 01-10-2022 History of Present illness Narrative Patient did not attend today's appointment. Santana Flores RD documented in this encounter [place] 01-06-2022 Miscellaneous Notes Follow up call placed to patient, no answer phone; left voice message with my call back phone number. BMI Incoming Patient Nursing Line Call Summary: Situation/Concerns:Patient needs a refill on Zofran Background/Duration of event: N/A Assessment/Subjective symptoms: as noted above. Recommendation/How message sent to provider/nurse:Lianne via Telephone Encounter. BULL Aviles documented in this encounter [place] 12-10-2021 Note HNO ID: [id number] Author: Viviana Marie APRN.[employer] Service: ? Author Type: Nurse Practitioner Type: Progress Notes Filed: 12/10/2021 1:57 PM Note Text: This is a 41 year old female who presents today with: Patient presents with: Acute Visit: Sores on lip/mouth/tongue HISTORY OF PRESENT ILLNESS: Raul Fleming is a 41 year old female. Patient presents with: Acute Visit: Sores on lip/mouth/tongue Pt presents today with complaint of Upper lip has been chapped for weeks. Has tried muprocin to the lip, but it is not healing. Refers that yesterday, she started getting a cold-sore on the upper lip. Refers that woke this morning, with swollen lip and tongue. She reports that she tends to get cold sores about monthly. PAST MEDICAL HISTORY: PAST MEDICAL HISTORY Diagnosis Date Autoimmune disease (HCC) Degeneration of intervertebral disc, site unspecified Depression Migraines Mild intermittent asthma Obesity Osteoarthritis of both knees Plantar fasciitis Psoriasis PAST SURGICAL HISTORY Procedure Laterality Date ADENOIDECTOMY PRIMARY Adenoidectomy DELIVERY ONLY , low cervical LAPAROSCOPY SURG CHOLECYSTECTOMY 2013 PAST SURGICAL HISTORY OF Bilateral arthoscopy to ankles, scar tissue removal and tendon lengthening TONSILLECTOMY PRIMARY/SECONDARY Tonsillectomy ALLERGIES Environmental [Other], Gabapentin, Prednisone, and Topamax [Topiramate] MEDICATIONS Current Outpatient Medications Medication Sig pregabalin (LYRICA) 75 mg capsule Take 1 capsule by mouth twice daily for 30 days. ondansetron (ZOFRAN) 4 mg tablet Take 1 tablet by mouth once daily as needed for nausea/vomiting (for nausea.) for up to [address] (PROTONIX) 40 mg tablet Take 1 tablet by mouth once daily. To be taken for 1 year after the surgery albuterol (PROVENTIL) 2.5 mg /3 mL (0.083 %) nebulizer solution Use 3 mL via nebulizer every 4 hours as needed for wheezing/shortness of breath. albuterol HFA (PROAIR HFA) 90 mcg/actuation inhaler Inhale 2 Puffs as instructed every 4 hours as needed. SUMAtriptan (IMITREX) 100 mg tablet Take 1 tablet by mouth as needed. START AT ONSET OF HEADACHE. MAY REPEAT DOSE AFTER 2 HOURS. loratadine (CLARITIN) 10 mg tablet Take 1 tablet by mouth once daily as needed. ammonium lactate (AMLACTIN) 12 % lotion apply to rash 2-3 times a day as needed oxyCODONE IR (ROXICODONE) 5 mg immediate release tablet Take 1 tablet by mouth every 8 hours as needed for pain for up to 10 doses. omeprazole (PRILOSEC) 40 mg capsule Take 1 capsule by mouth twice daily. No current facility-administered medications for this visit. FAMILY HISTORY Problem Relation Age of Onset Diabetes Maternal Grandmother Diabetes Maternal Uncle Social History Tobacco Use Smoking status: Former Packs/day: 0.25 Years: 24.00 Pack years: 6.00 Types: Cigarettes Start date: 03/19/1990 Quit date: 2014 Years since quittin.8 Smokeless tobacco: Never Tobacco comments: quit in 05/15 Vaping Use Vaping Use: Never used Substance Use Topics Alcohol use: Yes Comment: rarely Drug use: No EXAM: BP 124/82 Pulse 72 Resp 18 LMP 12/03/2021 SpO2 97% PHYSICAL EXAM: General Appearance: Well appearing, alert, in no acute distress, well-hydrated, well nourished.. Skin: Skin color, texture, turgor normal, no suspicious rashes or lesions. Head: Normocephalic, no masses, lesions, tenderness or abnormalities. Eyes: Anicteric sclera. Pupils are equally round and reactive to light. Extraocular movements are intact. . Oropharynx: upper lip w/ chapped skin. + cold sore on the right upper lip. Red areas on the tongue. Neck: Supple, no adenopathy Lungs: Lungs clear to auscultation. No wheezing, rhonchi, rales.. Heart: RRR without murmur, gallop, or rubs. No ectopy. Neurologic: Gait normal. ASSESSMENT/PLAN: 1. 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 Start preventative treatment after treatment of current acute outbreak. Will start valtrex -- 2000 mg twice daily X 1 day. Then start 500 mg daily thereafter for prevention. Patient agreeable to plan. - VALACYCLOVIR 500 MG TABLET 2. Chapped lips - ICD9: 528.5, ICD10: K13.0 Will start a low dose of triamcinolone to the area for up to 2 weeks. - TRIAMCINOLONE ACETONIDE 0.025 % TOPICAL OINTMENT 3. Mouth pain - ICD9: 528.9, ICD10: K13.79 Magic mouthwash. Discussed treatment plan and patient voices understanding. Patient's questions answered appropriately. Medications and potential side effects were discussed and patient voices understanding. Return to the office as scheduled or as needed for worsening/no improvement. Viviana Marie APRN.CNP [facility] 12-10-2021 Miscellaneous Notes Rx faxed to [facility]. Td Stiles LPN Script was for magic mouthwash? Do they have that there and what is in their formulation? I printed a new script that we can send over and see if they have that available. Viviana Marie APRN.FATEMEH [place], a deliverer pharmacy at [facility] calling for clarification of recent script received today for diphenhydramine, hydrocortisone lidocaine, nystatin oral medication. She states they do not have hydrocortisone lidocaine . Also asking for clarification on listed amounts in relation to ingredients: 180 mL: 120m mL: 30 mL. Please contact pharmacy to discuss. Thank you. documented in this encounter [place] 12-10-2021 Instructions Viviana Marie APRN.FATEMEH - 12/10/2021 12:11 PM EDT Start the magic mouthwash as needed. Start the valtrex -- 4 tablets by mouth twice daily X 1 day -- then start 1 tablet by mouth daily thereafter. Triamcinolone ointment to the lip twice daily for up to two weeks. Let me know if no better/worsening. documented in this encounter [place] 12-10-2021 History of Present illness Narrative This is a 41 year old female who presents today with: Patient presents with: Acute Visit: Sores on lip/mouth/tongue HISTORY OF PRESENT ILLNESS: Raul Fleming is a 41 year old female. Patient presents with: Acute Visit: Sores on lip/mouth/tongue Pt presents today with complaint of Upper lip has been chapped for weeks. Has tried muprocin to the lip, but it is not healing. Refers that yesterday, she started getting a cold-sore on the upper lip. Refers that woke this morning, with swollen lip and tongue. She reports that she tends to get cold sores about monthly. PAST MEDICAL HISTORY: PAST MEDICAL HISTORY Diagnosis Date Autoimmune disease (HCC) Degeneration of intervertebral disc, site unspecified Depression Migraines Mild intermittent asthma Obesity Osteoarthritis of both knees Plantar fasciitis Psoriasis PAST SURGICAL HISTORY Procedure Laterality Date ADENOIDECTOMY PRIMARY <AGE 11 Adenoidectomy DELIVERY ONLY , low cervical LAPAROSCOPY SURG CHOLECYSTECTOMY 2013 PAST SURGICAL HISTORY OF Bilateral arthoscopy to ankles, scar tissue removal and tendon lengthening TONSILLECTOMY PRIMARY/SECONDARY <AGE 11 Tonsillectomy ALLERGIES Environmental [Other], Gabapentin, Prednisone, and Topamax [Topiramate] MEDICATIONS Current Outpatient Medications Medication Sig pregabalin (LYRICA) 75 mg capsule Take 1 capsule by mouth twice daily for 30 days. ondansetron (ZOFRAN) 4 mg tablet Take 1 tablet by mouth once daily as needed for nausea/vomiting (for nausea.) for up to [address] (PROTONIX) 40 mg tablet Take 1 tablet by mouth once daily. To be taken for 1 year after the surgery albuterol (PROVENTIL) 2.5 mg /3 mL (0.083 %) nebulizer solution Use 3 mL via nebulizer every 4 hours as needed for wheezing/shortness of breath. albuterol HFA (PROAIR HFA) 90 mcg/actuation inhaler Inhale 2 Puffs as instructed every 4 hours as needed. SUMAtriptan (IMITREX) 100 mg tablet Take 1 tablet by mouth as needed. START AT ONSET OF HEADACHE. MAY REPEAT DOSE AFTER 2 HOURS. loratadine (CLARITIN) 10 mg tablet Take 1 tablet by mouth once daily as needed. ammonium lactate (AMLACTIN) 12 % lotion apply to rash 2-3 times a day as needed oxyCODONE IR (ROXICODONE) 5 mg immediate release tablet Take 1 tablet by mouth every 8 hours as needed for pain for up to 10 doses. omeprazole (PRILOSEC) 40 mg capsule Take 1 capsule by mouth twice daily. No current facility-administered medications for this visit. FAMILY HISTORY Problem Relation Age of Onset Diabetes Maternal Grandmother Diabetes Maternal Uncle Social History Tobacco Use Smoking status: Former Packs/day: 0.25 Years: 24.00 Pack years: 6.00 Types: Cigarettes Start date: 03/19/1990 Quit date: 2014 Years since quittin.8 Smokeless tobacco: Never Tobacco comments: quit in 05/15 Vaping Use Vaping Use: Never used Substance Use Topics Alcohol use: Yes Comment: rarely Drug use: No EXAM: BP 124/82 Pulse 72 Resp 18 LMP 12/03/2021 SpO2 97% PHYSICAL EXAM: General Appearance: Well appearing, alert, in no acute distress, well-hydrated, well nourished.. Skin: Skin color, texture, turgor normal, no suspicious rashes or lesions. Head: Normocephalic, no masses, lesions, tenderness or abnormalities. Eyes: Anicteric sclera. Pupils are equally round and reactive to light. Extraocular movements are intact. . Oropharynx: upper lip w/ chapped skin. + cold sore on the right upper lip. Red areas on the tongue. Neck: Supple, no adenopathy Lungs: Lungs clear to auscultation. No wheezing, rhonchi, rales.. Heart: RRR without murmur, gallop, or rubs. No ectopy. Neurologic: Gait normal. ASSESSMENT/PLAN: 1. 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 Start preventative treatment after treatment of current acute outbreak. Will start valtrex -- 2000 mg twice daily X 1 day. Then start 500 mg daily thereafter for prevention. Patient agreeable to plan. - VALACYCLOVIR 500 MG TABLET 2. Chapped lips - ICD9: 528.5, ICD10: K13.0 Will start a low dose of triamcinolone to the area for up to 2 weeks. - TRIAMCINOLONE ACETONIDE 0.025 % TOPICAL OINTMENT 3. Mouth pain - ICD9: 528.9, ICD10: K13.79 Magic mouthwash. Discussed treatment plan and patient voices understanding. Patient's questions answered appropriately. Medications and potential side effects were discussed and patient voices understanding. Return to the office as scheduled or as needed for worsening/no improvement. Viviana Marie APRN.FATEMEH documented in this encounter [place] 11-18-2021 Miscellaneous Notes The following approved medication requests have been transmitted electronically. Requested Prescriptions Signed Prescriptions Disp Refills pregabalin (LYRICA) 75 mg capsule 60 capsule 5 Sig: Take 1 capsule by mouth twice daily for 30 days. Authorizing Provider: Justin PONCE PA-C Last OV: 08/06/21 Next OV: None Last Rx: 04/22/21 #60 w/5. Michelle Ashby Ma documented in this encounter [place] 11-07-2021 Miscellaneous Notes BMI SPECIALTY CARE COORDINATION TELEPHONE ENCOUNTER Follow up call placed to patient and confirmed return to work paperwork has been sent. Patient notes she is feeling much better today since taking Zofran. At time of phone call 1630 has consumed 36 ounces clear liquid; has not had breakfast or lunch; and verbalized importance of taking in protein for Breakfast, Lunch, Dinner. Urine color light yellow. Denies pain, nausea, vomit. Patient educated on importance and verbalized understanding of recommended amounts of protein and 64 ounces of clear liquid each day and will work toward daily goal. Patient to continue to sip on fluids throughout the day and to take a water bottle wherever she goes. Patient reports Since yesterday I have been pushing myself to drink more and I am feeling so much better. Patient has BMI numbers to call if has any further needs or concerns. documented in this encounter [place] 10-30-2021 Note HNO ID: [id number] Author: Milo Lauren MD Service: ? Author Type: Fellow Type: Progress Notes Filed: 11/06/2021 5:33 PM Note Text: General Surgery Postoperative Clinic Visit Name: Raul Fleming This visit was performed virtually via [employer] technology due to the COVID-19 epidemic as an effort to protect patients and minimize exposure.? Patient gave me the verbal consent for the telehealth visit. Index Surgery Date of Surgery: 10/01/2021 Surgeon: Naresh Schmitz MD Surgical Procedure: LAPAROSCOPIC GASTRIC RESTRICTIVE SURG W/ BYPASS AND RADHA-EN-Y 150CM OR LESS Pre-surgical weight: 178.7 kg (394 lb) Other Surgeries None Visit: 4 weeks HPI: Today's Visit: There were no vitals taken for this visit. No weight on file for this encounter. Last Visit: Wt: 166.9 kg (368 lb) BMI: 54.34 kg/(m2) Today weight is 370 lbs She states she has flu symptoms and having problem to keep her oral intake above 64 oz. She had diarrhea but it was resolved. Current Outpatient Medications Medication Sig enoxaparin (LOVENOX) 40 mg/0.4 mL Inject 0.4 mL subcutaneously every 12 hours. (Inject entire contents of one(1) syringe) ondansetron (ZOFRAN) 4 mg tablet Take 1 tablet by mouth once daily as needed for nausea/vomiting (for nausea.) for up to 40 doses. oxyCODONE IR (ROXICODONE) 5 mg immediate release tablet Take 1 tablet by mouth every 8 hours as needed for pain for up to [address] (PROTONIX) 40 mg tablet Take 1 tablet by mouth once daily. To be taken for 1 year after the surgery omeprazole (PRILOSEC) 40 mg capsule Take 1 capsule by mouth twice daily. pregabalin (LYRICA) 75 mg capsule Take 1 capsule by mouth twice daily for 30 days. albuterol (PROVENTIL) 2.5 mg /3 mL (0.083 %) nebulizer solution Use 3 mL via nebulizer every 4 hours as needed for wheezing/shortness of breath. albuterol HFA (PROAIR HFA) 90 mcg/actuation inhaler Inhale 2 Puffs as instructed every 4 hours as needed. SUMAtriptan (IMITREX) 100 mg tablet Take 1 tablet by mouth as needed. START AT ONSET OF HEADACHE. MAY REPEAT DOSE AFTER 2 HOURS. loratadine (CLARITIN) 10 mg tablet Take 1 tablet by mouth once daily as needed. ammonium lactate (AMLACTIN) 12 % lotion apply to rash 2-3 times a day as needed No current facility-administered medications for this visit. REVIEW OF SYSTEMS: Denies nausea, vomiting, dumping syndrome, reactive hypoglycemia, gustatory rhinorrhea, Denies abdominal pain, constipation, diarrhea, melena, hematochezia, Denies paresthesias, gait abnormality, fatigue, weakness, lower extremity edema, and Denies taking NSAIDs PHYSICAL EXAM: General - Normal, healthy, cooperative, in no acute distress, obese Able to interact verbally by video conference Psych - ORIENTATION: normal to time place, person and situation Mood/Affect: AFFECT AND MOOD: Normal Head/Neuro - Normal size and shape Facial appearance normal Pulmonary - respiratory effort normal Cardiovascular - patient describes extremities normal, warm, no cyanosis,no clubbing, and no edema Abdominal - Obese, Visible protrusions or hernias: No Incisions/scars: Healed, Skin - abnormal lesions not visualized Motor - patient seen sitting with Normal appearing strength and coordination Assessment A/P: Normal post-OP course Advised the patient to call the clinic if she develop worsening sign of dehydration. Recommend to go to urgent care if he flu symptoms doesn't get better by tomorrow. Okay to return of work with no restriction on Thursday ( 11/04/2021). Patient Active Problem List Morbid obesity ([facility]) Degenerative joint disease involving multiple joints Limited mobility History of gastroesophageal reflux (GERD) Morbid obesity due to excess calories ([facility]) SVT (supraventricular tachycardia) ([facility]) Palpitations Chest pain SOB (shortness of breath) Cervical radiculopathy Class 3 severe obesity due to excess calories without serious comorbidity with body mass index (BMI) of 50.0 to 59.9 in adult ([facility]) Mild intermittent asthma Gastroesophageal reflux disease without esophagitis Lumbar sprain Migraines Seasonal allergies Plantar fasciitis Other joint derangement, not elsewhere classified, ankle and foot Other enthesopathy of ankle and tarsus Internal derangement of knee Resolved Hospital Problems No resolved problems to display. [facility] 10-30-2021 History of Present illness Narrative General Surgery Postoperative Clinic Visit Name: Raul Fleming This visit was performed virtually via Zoom technology due to the COVID-19 epidemic as an effort to protect patients and minimize exposure.? Patient gave me the verbal consent for the telehealth visit. Index Surgery Date of Surgery: 10/01/2021 Surgeon: Naresh Schmitz MD Surgical Procedure: LAPAROSCOPIC GASTRIC RESTRICTIVE SURG W/ BYPASS & RADHA-EN-Y 150CM OR LESS Pre-surgical weight: 178.7 kg (394 lb) Other Surgeries None Visit: 4 weeks HPI: Today's Visit: There were no vitals taken for this visit. No weight on file for this encounter. Last Visit: Wt: 166.9 kg (368 lb) BMI: 54.34 kg/(m^2) Today weight is 370 lbs She states she has flu symptoms and having problem to keep her oral intake above 64 oz. She had diarrhea but it was resolved. Current Outpatient Medications Medication Sig enoxaparin (LOVENOX) 40 mg/0.4 mL Inject 0.4 mL subcutaneously every 12 hours. (Inject entire contents of one(1) syringe) ondansetron (ZOFRAN) 4 mg tablet Take 1 tablet by mouth once daily as needed for nausea/vomiting (for nausea.) for up to 40 doses. oxyCODONE IR (ROXICODONE) 5 mg immediate release tablet Take 1 tablet by mouth every 8 hours as needed for pain for up to [address] (PROTONIX) 40 mg tablet Take 1 tablet by mouth once daily. To be taken for 1 year after the surgery omeprazole (PRILOSEC) 40 mg capsule Take 1 capsule by mouth twice daily. pregabalin (LYRICA) 75 mg capsule Take 1 capsule by mouth twice daily for 30 days. albuterol (PROVENTIL) 2.5 mg /3 mL (0.083 %) nebulizer solution Use 3 mL via nebulizer every 4 hours as needed for wheezing/shortness of breath. albuterol HFA (PROAIR HFA) 90 mcg/actuation inhaler Inhale 2 Puffs as instructed every 4 hours as needed. SUMAtriptan (IMITREX) 100 mg tablet Take 1 tablet by mouth as needed. START AT ONSET OF HEADACHE. MAY REPEAT DOSE AFTER 2 HOURS. loratadine (CLARITIN) 10 mg tablet Take 1 tablet by mouth once daily as needed. ammonium lactate (AMLACTIN) 12 % lotion apply to rash 2-3 times a day as needed No current facility-administered medications for this visit. REVIEW OF SYSTEMS: Denies nausea, vomiting, dumping syndrome, reactive hypoglycemia, gustatory rhinorrhea, Denies abdominal pain, constipation, diarrhea, melena, hematochezia, Denies paresthesias, gait abnormality, fatigue, weakness, lower extremity edema, and Denies taking NSAIDs PHYSICAL EXAM: General - Normal, healthy, cooperative, in no acute distress, obese Able to interact verbally by video conference Psych - ORIENTATION: normal to time place, person and situation Mood/Affect: AFFECT AND MOOD: Normal Head/Neuro - Normal size and shape Facial appearance normal Pulmonary - respiratory effort normal Cardiovascular - patient describes extremities normal, warm, no cyanosis,no clubbing, and no edema Abdominal - Obese, Visible protrusions or hernias: No Incisions/scars: Healed, Skin - abnormal lesions not visualized Motor - patient seen sitting with Normal appearing strength and coordination Assessment A/P: Normal post-OP course Advised the patient to call the clinic if she develop worsening sign of dehydration. Recommend to go to urgent care if he flu symptoms doesn't get better by tomorrow. Patient Active Problem List Morbid obesity (HCC) Degenerative joint disease involving multiple joints Limited mobility History of gastroesophageal reflux (GERD) Morbid obesity due to excess calories ([facility]) SVT (supraventricular tachycardia) ([facility]) Palpitations Chest pain SOB (shortness of breath) Cervical radiculopathy Class 3 severe obesity due to excess calories without serious comorbidity with body mass index (BMI) of 50.0 to 59.9 in adult (HCC) Mild intermittent asthma Gastroesophageal reflux disease without esophagitis Lumbar sprain Migraines Seasonal allergies Plantar fasciitis Other joint derangement, not elsewhere classified, ankle and foot Other enthesopathy of ankle and tarsus Internal derangement of knee Resolved Hospital Problems No resolved problems to display. documented in this encounter [facility] 10-26-2021 Miscellaneous Notes Images from the original note were not included. 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 She underwent a RYGB with Dr. Schmitz on 10/01. She had dehydration recently and received IV hydration on 10/23. Today she is concerned about her risk of dehydration as she is having upper respiratory symptoms. She has rhinitis, rhinorrhea, and a sore throat. She is voiding well and it is light colored. She has mild nausea but consumed 45 oz of fluids today and some solids. She denies vomiting or diarrhea. She denies lightheadedness. She is currently showing no signs of dehydration. She was advised to consume more fluids and to look out for signs of dehydration such as decreased urine output, dark urine, and lightheadedness. Akshat Pinto MD PhD [facility] Clinical Fellow Advanced Laparoscopic Surgery and Flexible Surgical Endoscopy [facility] [address] [place] [address] [email or web address] documented in this encounter [facility] 10-23-2021 Nurse Note Raul Fleming Reason for therapy: Dehydration, and Banana bag Ordering Physician: Dr. Schmitz Supervising/Billing Physician: Dr. DAV Morgan Medications administered: [id number] x1, and banana bag 1000cc x 1 (See MAR and flowsheets for rates) Start: 1015AM / Stop: [id number] Infusion tolerated well: Yes IV: See avatar Vital Signs: See Flow sheets Additional Notes if applicable: The pt refused Zofran, and Protonix d/t no nausea, and she takes protonix pills p.o q daily. M61 coodinator RN was notified AMBULATORY PATIENT EDUCATION NOTE TOPIC: IV hydration READINESS TO LEARN INSTRUCTION PROVIDED TO: Patient, readness to learn accessed prior to procedure COGNITIVE ABILITY: Alert and oriented PTED MOTIVATION TO LEARN: Eager FAMILY SUPPORT: High - Very involved in pt care IPATIENT LEARNS BEST BY: Individual Instruction FACTORS AFFECTING LEARNING: None PHYSICAL LIMITATIONS AFFECTING LEARNING: None LEARNING RESPONSE METHOD OF INSTRUCTION: Individual instruction PATIENT / FAMILY RESPONSE: Verbalizes understanding of: WORSENING CONDITION-Signs and symptoms of a worsening condition that warrant a call to the physician FOLLOW-UP PLAN: Complete - No need for follow-up documented in this encounter [facility] 10-22-2021 Miscellaneous Notes I cannot add patient to the infusion schedule for tomorrow 10/23 at 10am without the medication orders. Can you please place the orders? Thanks, Gabrielle Bran RN documented in this encounter [facility] 10-22-2021 Miscellaneous Notes [facility] can not see this patient as it [place] out of territory, we do not travel to [place]. [facility] Transitional Care Program - Intake Template - for interface Date Referral Received: 10/22/2021 Referral Source: [facility] Physician office TC Program: UD - 4C Hospital Discharge Date: n/a [facility] RN Name: n/a Date of : 1980 Age: [age] year old PCP: Toi Escamilla MD Visit address from [facility]: [address] [place] [address] Name of Physician who gave the order: DIONICIO FAITH Other services ordered: None Primary Insurance Company: Payor: [employer] MEDICAID / Plan: [employer] MEDICAID / Product Type: Medicaid / Primary Insurance ID Number: [id number] documented in this encounter [facility] 10-21-2021 Miscellaneous Notes BMI SPECIALTY CARE COORDINATION TELEPHONE ENCOUNTER Chief complaint & duration; c/o intermittent dizziness ;feeling tired last two weeks Type of procedure: radha en y gastric bypass with Dr. Schmitz in October 01, 2021. Nursing assessment (subjective/objective) c/o lightheaded sob with activity on and off over the last two weeks. Patient states, I feel like I am going to pass out if I move around too much. After I showered yesterday, I almost passed out twice. I started to see stars. Stopping activity and sitting down the dizziness resolves. Not tolerating taking in recommended amounts of protein on phase III. Averaging 60 grams per day. Taking 64 ounces clear liquid each day. Taking post op vitamins. Last BM 10/21/21, Urine clear yellow. Denies fever,pain, nausea, vomit. 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 Recommendation: advised patient I would reach out to surgical team and follow up with recommendation. RN reinforced recent Nutrition team recommendations. Patient verbalized understanding of lifting restrictions; nothing greater than 10 lbs for the first 30 days after surgery and Protein needs estimated at 92 grams protein per day. Patient has BMI help card numbers to call. Message sent to scheduling to arrange 1 month follow up with Surgical Team. 10/21/[address] Faith patient agreeable to receive IV Hydration. Confirmed 10/23/21 [id number] appt. documented in this encounter [facility] 10-18-2021 Note HNO ID: [id number] Author: Rossy Baker RD Service: ? Author Type: Registered Dietitian Type: Progress Notes Filed: 10/18/2021 10:49 AM Note Text: This visit was performed virtually due to the COVID-19 epidemic as an effort to protect patients and minimize exposure. Consent from patient received to conduct visit virtually. This Team Access Model visit is a virtual GROUP encounter. It required patient-provider interaction for the medical decision making as documented below. Patient reports weight (as measured by home scale) of 368 pounds. AMBULATORY PATIENT EDUCATION NOTE-Shared Nutrition Group TOPIC: LIFE STYLE CHANGES: Post-op weight loss surgery: Diet and Exercise READINESS TO LEARN COGNITIVE ABILITY: Alert and oriented MOTIVATION TO LEARN: Eager Interested FAMILY SUPPORT: Unable to assess - Family not present INSTRUCTION PROVIDED TO: Patient PATIENT LEARNS BEST BY: Multiple Methods FACTORS AFFECTING LEARNING: None PHYSICAL LIMITATIONS AFFECTING LEARNING: None LEARNING RESPONSE DIAGNOSIS: Overweight Obesity, related to; decreased energy needs, as evidenced by BMI above normative standard for age and gender Malnutrition Screening Significant unintentional weight loss? No Eating less than 75% of usual intake for more than 2 weeks? No Nutritional status: METHOD OF INSTRUCTION: Individual instruction Group class instruction PATIENT / FAMILY RESPONSE: Nutrition outcome statement: Expect attention to diet to assist with weight management and minimum 500 calories/2 liters of fluids per day. Patient participated in a 2 week post-op shared nutrition group. Post-op weight loss surgery (RYGB) (Dr. Schmitz) . Weight loss: 47 lbs since initial assessment (415 lbs); 11% loss total body weight. Pre surgery weight: 394 lbs. Weight loss tracking higher than expected from surgery. Tolerating phase 3 diet without difficulty. Protein needs estimated at 92 grams protein per day (1.2 g/kg IBW kg). Current intake meeting ~ 100% protein needs. Fluid consumption adequate and appropriate and includes water, gatorade zero. Patient all (Bariatric combination mvi and calcium citrate 3/day) taking recommended vitamin/minerals. Exercise includes walking as able due to fatigue. Labs not available to evaluate. Reviewed nutrition principles of: 1. Continue vitamins Bariatric one a day + calcium citrate 3/day 2. Protein goal: 92 grams protein/day 3. Fluid goal: 64 ounces per day (no carbonation, caffeine, calories, alcohol) - separate foods and fluids by 20 minutes, small sips, no straw 4. Exercise goal: begin low intensity exercise until cleared by surgeon. 5. Practice mindful eating habits-take small portions, eat slowly, and chew thoroughly You have lost 11% total weight loss (average 6-9% at 1 month) Blog: [employer] The Bariatric AND Metabolic [facility] has 2 virtual support group meetings: This is the HypePoints link with meeting number that will be used for all of the THURSDAY virtual support groups this year, on the Thursday of each month 5:30-6:30PM Join from the meeting link [email or web address] Join by meeting number Meeting number (access code): [phone] Meeting password: [email or web address] The schedule with dates, times, topics, and facilitators can be found here: [email or web address] This is the HypePoints link with meeting number that will be used for the Open Discussion ( Food for Thought ) support group on the First Thursday of each month 5:30-6:30PM Join from the meeting link [email or web address] Join by meeting number Meeting number (access code): [phone] Meeting password: [email or web address] Hope to see you there! Nutrition Monitoring AND Evaluation: Advance diet to phase 3 by next visit Criteria: patient recall Need for Follow up: 1 month post op Appointment Start Time: 9:30 AM Appointment End Time: 10:30 AM Time Spent on Consult: 60 minutes - Group Rossy Baker MS,RD,CSOWM,LD [facility] 10-18-2021 History of Present illness Narrative This visit was performed virtually due to the COVID-19 epidemic as an effort to protect patients and minimize exposure. Consent from patient received to conduct visit virtually. This Team Access Model visit is a virtual GROUP encounter. It required patient-provider interaction for the medical decision making as documented below. Patient reports weight (as measured by home scale) of 368 pounds. AMBULATORY PATIENT EDUCATION NOTE-Shared Nutrition Group TOPIC: LIFE STYLE CHANGES: Post-op weight loss surgery: Diet and Exercise READINESS TO LEARN COGNITIVE ABILITY: Alert and oriented MOTIVATION TO LEARN: Eager Interested FAMILY SUPPORT: Unable to assess - Family not present INSTRUCTION PROVIDED TO: Patient PATIENT LEARNS BEST BY: Multiple Methods FACTORS AFFECTING LEARNING: None PHYSICAL LIMITATIONS AFFECTING LEARNING: None LEARNING RESPONSE DIAGNOSIS: Overweight Obesity, related to; decreased energy needs, as evidenced by BMI above normative standard for age and gender Malnutrition Screening Significant unintentional weight loss? No Eating less than 75% of usual intake for more than 2 weeks? No Nutritional status: METHOD OF INSTRUCTION: Individual instruction Group class instruction PATIENT / FAMILY RESPONSE: Nutrition outcome statement: Expect attention to diet to assist with weight management and minimum 500 calories/2 liters of fluids per day. Patient participated in a 2 week post-op shared nutrition group. Post-op weight loss surgery (RYGB) (Dr. Schmitz) . Weight loss: 47 lbs since initial assessment (415 lbs); 11% loss total body weight. Pre surgery weight: 394 lbs. Weight loss tracking higher than expected from surgery. Tolerating phase 3 diet without difficulty. Protein needs estimated at 92 grams protein per day (1.2 g/kg IBW kg). Current intake meeting ~ 100% protein needs. Fluid consumption adequate and appropriate and includes water, gatorade zero. Patient all (Bariatric combination mvi and calcium citrate 3/day) taking recommended vitamin/minerals. Exercise includes walking as able due to fatigue. Labs not available to evaluate. Reviewed nutrition principles of: 1. Continue vitamins Bariatric one a day + calcium citrate 3/day 2. Protein goal: 92 grams protein/day 3. Fluid goal: 64 ounces per day (no carbonation, caffeine, calories, alcohol) - separate foods and fluids by 20 minutes, small sips, no straw 4. Exercise goal: begin low intensity exercise until cleared by surgeon. 5. Practice mindful eating habits-take small portions, eat slowly, and chew thoroughly You have lost 11% total weight loss (average 6-9% at 1 month) Blog: [employer] The Bariatric & Metabolic [facility] has 2 virtual support group meetings: This is the HypePoints link with meeting number that will be used for all of the THURSDAY virtual support groups this year, on the Thursday of each month 5:30-6:30PM Join from the meeting link [email or web address] Join by meeting number Meeting number (access code): [phone] Meeting password: [email or web address] The schedule with dates, times, topics, and facilitators can be found here: [email or web address] This is the HypePoints link with meeting number that will be used for the Open Discussion ( Food for Thought ) support group on the First Thursday of each month 5:30-6:30PM Join from the meeting link [email or web address] Join by meeting number Meeting number (access code): [phone] Meeting password: [email or web address] Hope to see you there! Nutrition Monitoring & Evaluation: Advance diet to phase 3 by next visit Criteria: patient recall Need for Follow up: 1 month post op Appointment Start Time: 9:30 AM Appointment End Time: 10:30 AM Time Spent on Consult: 60 minutes - Group Rossy Baker MS,RD,CSOWM,LD documented in this encounter [facility] 10-09-2021 Note HNO ID: [id number] Author: Dionicio Faith MD Service: ? Author Type: Fellow Type: Progress Notes Filed: 10/09/2021 4:41 PM Note Text: Metabolic Surgery Postoperative Virtual Clinic Visit Name: Raul Fleming This visit was performed virtually via Zoom technology due to the COVID-19 epidemic as an effort to protect patients and minimize exposure.? Virtual Visit (Audio/Visual) I have discussed the nature of this visit with the patient which will occur via [facility] (Phone, Virtual Visit) and she agrees to proceed with this interaction . Index Surgery Date of Surgery: 10/01/2021 Surgeon: Naresh Schmitz MD Surgical Procedure: LAPAROSCOPIC GASTRIC RESTRICTIVE SURG W/ BYPASS AND RADHA-EN-Y 150CM OR LESS Pre-surgical weight: 178.7 kg (394 lb) HPI: She is doing well after her surgery. Pain is very well controlled. She some nausea in the morning which relieved by Zofran. She tolerated phase II diet. She takes around 64 oz pf water and around 50-70 of proteins. No vomiting. Has good urine output with clear urine. She denies SOB, Chest pain , calf muscle pain or selling. She is taking her VTE prophylaxis twice daily for a month. Today's Visit: There were no vitals taken for this visit. No weight on file for this encounter. Last Visit: Wt: 178.7 kg (394 lb) BMI: 58.18 kg/(m2) PHYSICAL EXAM: General - Normal, healthy, cooperative, in no acute distress, obese Able to interact verbally by video conference Psych - ORIENTATION: normal to time place, person and situation Mood/Affect: AFFECT AND MOOD: Normal Head/Neuro - Normal size and shape Facial appearance normal Pulmonary - respiratory effort normal Cardiovascular - patient describes extremities normal, warm, no cyanosis,no clubbing, and no edema Abdominal - Obese, Visible protrusions or hernias: No Incisions/scars: Healed, with some redness around them , no discharge, but the patient has some itchiness around them. Skin - abnormal lesions not visualized Motor - patient seen sitting with Normal appearing strength and coordination Assessment A/P: Normal post-OP course Patient Active Problem List Morbid obesity (HCC) Degenerative joint disease involving multiple joints Limited mobility History of gastroesophageal reflux (GERD) Morbid obesity due to excess calories ([facility]) SVT (supraventricular tachycardia) ([facility]) Palpitations Chest pain SOB (shortness of breath) Cervical radiculopathy Class 3 severe obesity due to excess calories without serious comorbidity with body mass index (BMI) of 50.0 to 59.9 in adult (HCC) Mild intermittent asthma Gastroesophageal reflux disease without esophagitis Lumbar sprain Migraines Seasonal allergies Plantar fasciitis Other joint derangement, not elsewhere classified, ankle and foot Other enthesopathy of ankle and tarsus Internal derangement of knee Resolved Hospital Problems No resolved problems to display. DISPOSITION: Return 1 month to Post-op follow up/ individual office visit EDUCATION: Encouraged to continue with healthy lifestyle changes and incorporate cardiovascular and resistance training, Discussed weight loss expectations after bariatric and metabolic surgery, Advised PT to avoid NSAIDs, smoking tobacco given increased risk of marginal ulcers, or Discussed importance of protein intake as per the RDN note. She advised to start lite exercise as tolerated and to start her multivitamins and phase 3 diet when she reach 14 days leigh after the surgery. REFERRALS: N/A LABS: Dionicio Faith MD Advanced Laparoscopic AND Bariatric Surgery Fellow Bariatric AND Metabolic [facility] 10-09-2021 History of Present illness Narrative Metabolic Surgery Postoperative Virtual Clinic Visit Name: Raul Fleming This visit was performed virtually via Zoom technology due to the COVID-19 epidemic as an effort to protect patients and minimize exposure.? Virtual Visit (Audio/Visual) I have discussed the nature of this visit with the patient which will occur via [facility] (Phone, Virtual Visit) and she agrees to proceed with this interaction . Index Surgery Date of Surgery: 10/01/2021 Surgeon: Naresh Schmitz MD Surgical Procedure: LAPAROSCOPIC GASTRIC RESTRICTIVE SURG W/ BYPASS & RADHA-EN-Y 150CM OR LESS Pre-surgical weight: 178.7 kg (394 lb) HPI: She is doing well after her surgery. Pain is very well controlled. She some nausea in the morning which relieved by Zofran. She tolerated phase II diet. She takes around 64 oz pf water and around 50-70 of proteins. No vomiting. Has good urine output with clear urine. She denies SOB, Chest pain , calf muscle pain or selling. She is taking her VTE prophylaxis twice daily for a month. Today's Visit: There were no vitals taken for this visit. No weight on file for this encounter. Last Visit: Wt: 178.7 kg (394 lb) BMI: 58.18 kg/(m^2) PHYSICAL EXAM: General - Normal, healthy, cooperative, in no acute distress, obese Able to interact verbally by video conference Psych - ORIENTATION: normal to time place, person and situation Mood/Affect: AFFECT AND MOOD: Normal Head/Neuro - Normal size and shape Facial appearance normal Pulmonary - respiratory effort normal Cardiovascular - patient describes extremities normal, warm, no cyanosis,no clubbing, and no edema Abdominal - Obese, Visible protrusions or hernias: No Incisions/scars: Healed, with some redness around them , no discharge, but the patient has some itchiness around them. Skin - abnormal lesions not visualized Motor - patient seen sitting with Normal appearing strength and coordination Assessment A/P: Normal post-OP course Patient Active Problem List Morbid obesity (HCC) Degenerative joint disease involving multiple joints Limited mobility History of gastroesophageal reflux (GERD) Morbid obesity due to excess calories (HCC) SVT (supraventricular tachycardia) (HCC) Palpitations Chest pain SOB (shortness of breath) Cervical radiculopathy Class 3 severe obesity due to excess calories without serious comorbidity with body mass index (BMI) of 50.0 to 59.9 in adult (HCC) Mild intermittent asthma Gastroesophageal reflux disease without esophagitis Lumbar sprain Migraines Seasonal allergies Plantar fasciitis Other joint derangement, not elsewhere classified, ankle and foot Other enthesopathy of ankle and tarsus Internal derangement of knee Resolved Hospital Problems No resolved problems to display. DISPOSITION: Return 1 month to Post-op follow up/ individual office visit EDUCATION: Encouraged to continue with healthy lifestyle changes and incorporate cardiovascular and resistance training, Discussed weight loss expectations after bariatric and metabolic surgery, Advised PT to avoid NSAIDs, smoking tobacco given increased risk of marginal ulcers, or Discussed importance of protein intake as per the RDN note. She advised to start lite exercise as tolerated and to start her multivitamins and phase 3 diet when she reach 14 days leigh after the surgery. REFERRALS: N/A LABS: Dionicio Faith MD [facility] [place] documented in this encounter [place] 10-09-2021 Miscellaneous Notes Patient reports redness and itching present around all lap sites on abdomen. May use cold compress and hydrocortisone cream around glue sites. Confirmed appt with surgical team this afternoon. documented in this encounter [place] 10-09-2021 Note Patient Outreach (IN [facility]) -------- RAUL FLEMING ([id number]) 1980 F Date Time Provider Department 10/09/21 TOI ESCAMILLA During your visit today, we recorded the following information about you: Allergies As of Date: 10/09/2021 Noted Allergy Reaction environmental [Other] 06/26/2005 GABAPENTIN 04/13/2014 14 - Other: See Comments PREDNISONE 04/18/2015 1 - Mental Status Change TOPAMAX (TOPIRAMATE) 12/12/2016 14 - Other: See Comments Comments: anxiety Date Reviewed: 10/02/2021 Reviewed by: Brandy Vann RN - Fully Assessed Visit Diagnosis:Encounter for screening mammogram for breast cancer [Z12.31] Order(s):[facility] SCREENING [[id number]] Order #: [id number] FUTURE Prescriptions as of 10/14/2021 - enoxaparin (LOVENOX) 40 mg/0.4 mL Inject 0.4 mL subcutaneously every 12 hours. (Inject entire contents of one(1) syringe) - ondansetron (ZOFRAN) 4 mg tablet Take 1 tablet by mouth once daily as needed for nausea/vomiting (for nausea.) for up to 40 doses. - oxyCODONE IR (ROXICODONE) 5 mg immediate release tablet Take 1 tablet by mouth every 8 hours as needed for pain for up to 10 doses. - pantoprazole DR (PROTONIX) 40 mg tablet Take 1 tablet by mouth once daily. To be taken for 1 year after the surgery - omeprazole (PRILOSEC) 40 mg capsule Take 1 capsule by mouth twice daily. - pregabalin (LYRICA) 75 mg capsule Take 1 capsule by mouth twice daily for 30 days. - albuterol (PROVENTIL) 2.5 mg /3 mL (0.083 %) nebulizer solution Use 3 mL via nebulizer every 4 hours as needed for wheezing/shortness of breath. - albuterol HFA (PROAIR HFA) 90 mcg/actuation inhaler Inhale 2 Puffs as instructed every 4 hours as needed. - SUMAtriptan (IMITREX) 100 mg tablet Take 1 tablet by mouth as needed. START AT ONSET OF HEADACHE. MAY REPEAT DOSE AFTER 2 HOURS. - loratadine (CLARITIN) 10 mg tablet Take 1 tablet by mouth once daily as needed. - ammonium lactate (AMLACTIN) 12 % lotion apply to rash 2-3 times a day as needed Problem List As Of Date 10/09/2021 Noted Resolved Unspecified asthma(493.90) [J45.909] 06/01/2015 Pain in joint, lower leg [M25.569] 12/10/2005 09/16/2018 INTERNAL DERANGEMNT KNEE [717] 12/10/2005 Other joint derangement, not elsewhere classifi*05/12/2014 Other enthesopathy of ankle and tarsus [M77.50] 05/12/2014 Migraines [G43.909] 10/09/2014 Seasonal allergies [J30.2] 10/09/2014 Plantar fasciitis [M72.2] 10/09/2014 Lumbar sprain [S33.5XXA] 01/19/2015 Gastroesophageal reflux disease without esophag*06/01/2015 Morbid (severe) obesity due to excess calories *04/28/2017 03/19/2018 Morbid obesity (HCC) [E66.01] 12/07/2017 03/19/2018 Mild intermittent asthma [J45.20] Class 3 severe obesity due to excess calories w*03/19/2018 Cervical radiculopathy [M54.12] 2019 SVT (supraventricular tachycardia) (HCC) [I47.1]03/04/2021 Palpitations [R00.2] 03/04/2021 Chest pain [R07.9] 03/04/2021 SOB (shortness of breath) [R06.02] 03/04/2021 Degenerative joint disease involving multiple j*05/06/2021 Limited mobility [Z74.09] 05/06/2021 History of gastroesophageal reflux (GERD) [Z87.*05/06/2021 Morbid obesity due to excess calories (HCC) [E6*05/06/2021 Morbid obesity (HCC) [E66.01] 10/01/2021 Encounter Status:Closed by LORENE HAHN on 10/14/21 [facility] 10-04-2021 Miscellaneous Notes RN called [facility] spoke with Pharmacist, Paige Sanchez provided order for Lovenox written by Lexi Benjamin MD. RN called patient and provided update. Patient verbalized understanding to notify BMI if unable to start Lovenox today. Confirmed has BMI help card numbers to call if has any further needs. documented in this encounter [place] 10-04-2021 Miscellaneous Notes BMI SPECIALTY CARE COORDINATION POST-OP TELEPHONE CALL BMI Post Op Telephone Call Pt was called on the first day after discharge. DO YOU HAVE A COPY OF YOUR DISCHARGE INSTRUCTIONS YES Is there anything in your discharge instructions that you do not understand? NO Pain: tolerable., taking Tylenol., and taking Oxycodone occasionally. On a scale of 0-10, 0 being not satisfied and 10 being very satisfied, how satisfied were you with your pain management strategy after surgery? 10 Patient instructed not to take any narcotic pain medications (such as Roxicodone) within three hours before bedtime as it may cause breathing difficulty. If you are having pain at bedtime you may take Tylenol (liquid form or two extra strength tablets). Phase 2 full liquid diet: Patient reports waking up at 11:00 a.m. tolerating diet. and pt estimates at time of phone call [phone] 0 grams of protein and 14 oz of fluid daily. Patient verbalized understanding of recommended amounts of protein and 64 ounces of clear liquid each day and will work toward daily goal. Patient to continue to sip on fluids throughout the day and to take a water bottle wherever she goes. Incisions: surgical glue intact GI: + BM and +flatus : WNL Medications: Taking as instructioned at discharge PPI and Frances Benjamin MD to resend electronic script to [facility] so patient may begin Lovenox today. Patient verbalized understanding. CPAP USE: N/A Remind patient of post op appt. Reminded patient of how to reach [facility] or their surgeons office. Patient reminded to seek medical attention if they develop chest pain, a sudden onset of shortness of breath or persistent pain in the calf of their legs - BEST TO ALWAYS present to [facility] hospital where you had your surgery Patient verbalized understanding of all advice and instructions given. COVID-19 Symptoms: none . Lianne Welch RN documented in this encounter [place] 10-04-2021 History of Present illness Narrative TCM Home Visit Referral Source of Stratification: [facility] Admission Status: Discharged Readmission Risk Score: 10 SABAS Score: 0 Program referral criteria met: Does not meet referral criteria Patient does not qualify for High Risk TCM Home Visit program due to: Does not meet referral criteria Patient does not quality for High Risk TCM Home Visit Program due to: Does not meet referral criteria TRANSITIONAL CARE MANAGEMENT (TCM) COMMUNITY MONITORING PROGRAM Provider Action/FYI: TCM Initial Hospital Discharge [facility] on 10-03-21. PCP Dr Escamilla - saida make owe f/u appoitment CYNDI Baker/Gen Surg 10-18-21 Patient states she is doing okay, just really sore Denies chest pain, sob, fever or chill Lap sites PAUL, skin intact, keep clean and dry, no S/S of infection Rates pain as 4 while still, increases to 6 with activity Taking Oxycodone for pain, Tolerating fluids well, going to try a protein shake today Encouraged patient to Review: Discharge Instructions for Bariatric Surgery Reviewed medications - on phone with Pharmacy to find out about her Lovenox SUMMARY: Pt discharged from [facility] on 10-03-21. Admitted for: Obesity, LAPAROSCOPIC GASTRIC RESTRICTIVE SURG W/ BYPASS & RADHA-EN-Y Contact made with patient: Yes Hi my name is Esther Ya RN and I am calling from the [place] on behalf of your PCP, Toi Escamilla MD I understand you were recently in the hospital so I am calling to check in with you to ensure you are feeling well now that you're home. May I ask you a few questions related to your hospital stay and well-being? Yes Contact with patient post discharge, spoke to patient. Patient identified by name and . Do you feel your health is BETTER, WORSE, or the SAME since leaving the hospital? Same ACTION TAKEN: Patient indicated symptoms are better or same, no action required. Continue outreach. MEDICATIONS: Many patients have questions or concerns about their medications once they are home. Do you have any questions about taking your medications or which medication you should be on? No Do you need any medication refills at this time, including any of the medications you might take only when needed? No ACTION TAKEN: No action required For RNs or Pharmacy completing outreach ONLY, was a medication review completed? Yes SOCIAL: We would like to make sure you have what you need so that your basics needs are met - including your personal safety, food, housing and medications. Would you like to speak with a social work steam trap man to help give you support for any of these needs? No It can be normal to feel anxious or down during a time like this. Would you like to talk to a mental health professional about how you have been feeling? No ACTION TAKEN: No action taken DISCHARGE INTRUCTIONS: Your discharge instructions / After Visit Summary (AVS) are important in guiding you through the recovery process. Do you have any questions related to your discharge instructions? No Do you have all the necessary equipment and supplies at home? N/a ACTION TAKEN: No action required I would like to help you schedule a hospital follow-up virtual or telephone visit with your PCP. This is a great way for you to connect with your provider to ensure you have safely transitioned home. If you are agreeable, I will send your request to a outside sales manager who will contact and assist you with that appointment. This will give you an opportunity to ask any questions or address any concerns you may have with your PCP. Inform the patient that if they have any questions or concerns prior to that appointment, to call their PCP's office right away. ACTION TAKEN: No action required, patient declines appointment. Your doctor would like us to remind you of the recommendations regarding the coronavirus (Covid19) outbreak: Avoid public places as much as possible. Avoid close contact (within 6 feet) with others you don t live with, especially if they are sick. Stay home if you are sick. Wash your hands regularly for at least 20 seconds with soap and water. Wear a cloth mask in public places to help reduce community spread. Do not go to your Doctor s office unless instructed to do so. For any non-emergency symptoms, call your Doctor s office to get instructions on how to manage (we might recommend a telephone or virtual visit). For emergency symptoms, proceed to Emergency Department as usual but inform them of cough and fever symptoms WALLY if present (or call on the way if possible). Esther Ya RN Company Accountant documented in this encounter [place] 09-24-2021 Miscellaneous Notes Patient preparing for RYGB surgery with Dr. Schmitz scheduled 10/01/21 began 3 week pre-op liquid diet (now on day 12) c/o intermittent feeling weak, dizzy, going from sitting to standing up from a chair; episodes lasts 3-4 seconds to as long as 5 minutes, resolves on its own if sits down and rests. Over the last three weeks reports occasional moments of shortness of breath brought on by activity. Completed lab work 09-17-2021. 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 Concerned it is not a good idea to perform her work duties. Has been offered to fill in as an aid on the bus however concerned may feel dizzy and fall when bus is in transport. On occasion; four times total since started liquid diet reports shortness of breath when going up stairs. Resting and waiting a minute symptoms resolve on their own. Patient states When I have shortness of breath it can feel like chest tightness. I used to feel like this when I was a teenager and had asthma. Patient has not had asthma since she was 15. Denies wheezing. Denies palpitations. When I exercise I just want to sleep. I feel lethargic. I drop things easily and just feel weak. My concentration is off. Patient began taking B multi vitamin a few days after started liquid diet. Confirmed has been taking for over 1 week. B Complex vitamin contains 100 mg thiamine. Today patient denies fever, P,N,V. Tolerating taking 5 atkins protein shakes a day, along with 64-70 ounces of water daily. Urine clear yellow. Last BM 09/23/21. Advised patient I would reach out to surgical team and follow up. 09-25-21 Patient advised by Nutrition Team to add in 1 additional protein shake (5 1/2 total or Boost Glucose control or high protein slim fast). Also encourage to have some broth (if you haven't already done so)- this will help keep your blood pressure at a normal range and decrease your dizziness- making sure you are also getting in the 64 ounces fluids. documented in this encounter [place] 09-18-2021 Instructions Mary Moura APRN.TEMPLE MEAT CUTTER - 09/18/2021 11:42 AM EDT PATIENT PREOPERATIVE INSTRUCTIONS Naresh Schmitz MD has scheduled you for your procedure at this surgery center: [facility] Scheduling Office: [phone] --[address] [place] [address]. Please read below carefully for your personalized instructions. Dietary Restrictions: - No solid food after midnight. - You may have 12 ounces of clear liquids (water, clear juices such as apple juice or gatorade, carbonated beverages, clear tea, black coffee, jello) until 2 hours before scheduled arrival at facility. - Other Nutritional drinks may be advised on day of surgery 2 hours prior to scheduled arrival at facility. Medications: Unless instructed differently below, stay on all of your medications until your surgery. Approved medications to take the morning of surgery with a sip of water: Albuterol, Loratadine, Omeprazole, Lyrica If you start any new medications after today's visit, please contact the surgeon's office. Blood Thinning Medications: - Stop NSAIDS (Ibuprofen, Advil, Aleve, Motrin, Celebrex, Mobic, etc.) 7 days before surgery, as directed by your surgeon. - Stop Aspirin 7 days before surgery, as directed by your surgeon. - Stop Vitamin E, ALL multi-vitamins, herbals and dietary supplements 7 days before surgery. - You may take Tylenol (Acetaminophen) or any of your pain medications that do not contain aspirin or NSAIDS as needed. Important Reminders: - If you use CPAP/BIPAP, bring the machine with you to the surgery center. - If you are prescribed inhalers for breathing, continue using them. - Candy, mints, and tobacco products are NOT permitted the morning of surgery. - Hearing aids, dentures and glasses may be worn the morning of surgery. - NO jewelry, body piercings, makeup, hairpins or contacts are to be worn the day of surgery. If you develop symptoms such as a fever, cold, or flu, or have other changes to your health within TWO DAYS of scheduled surgery or the morning of surgery, please contact the surgery center above. Personal Belongings: -Please have photo ID and insurance cards. -If you do not have a copy of advance directives on file with us, please bring a copy with you on the day of surgery. - Leave ALL valuables and money at home or with family members. For Outpatient Procedures: - YOU MUST HAVE A RESPONSIBLE DIRECTOR OF CASEWORK DEPARTMENT TAKE YOU HOME. A INVENTORY AND PRICING ASSOCIATE OR PET NUTRITION SPECIALIST CANNOT BE MADE A RESPONSIBLE DIRECTOR OF CASEWORK DEPARTMENT. - We recommend that a responsible person stays with you overnight to take care of you. - You cannot stay in a hotel alone after outpatient surgery. You will not be permitted to have your surgery, if you do not have someone to take care of you. Arrival Time for Surgery: - To obtain your arrival time for surgery, call your physician's office the day before your surgery. - If your surgery is scheduled for Thursday, call the Thursday before. Your surgeon s outside sales manager will tell you what time to call the office. - If you have not reached the departmental outside sales manager by 5 P.M., call [phone] after 5 P.M. the day before your surgery. Please be aware that emergency situations arise, which may delay or change your surgical time. If this happens, we will notify you as soon as possible and regret any inconvenience. If you already have an Advance Directive, please fax a copy to [phone] or email to for it to be added to your chart. If you do not have an Advance Directive, you can find the appropriate form and more information at [email or web address]. We recommend that you complete the Advance Directive form found on the website and bring it with you the day of your surgery. It can be witnessed and scanned into your chart that day. Mary Moura APRN.FATEMEH documented in this encounter [place] 09-18-2021 History and physical note Images from the original note were not included. HISTORY AND PHYSICAL EXAMINATION SERVICE DATE: 09/18/2021 SERVICE TIME: 11:41 AM PRIMARY CARE PHYSICIAN: Toi Escamilla MD REASON FOR VISIT: Raul Fleming is a 40 year old female who is scheduled for Procedure(s): LAPAROSCOPIC GASTRIC RESTRICTIVE SURG W/ BYPASS & RADHA-EN-Y 150CM OR LESS (N/A) at the request of Dr. Naresh Schmitz for consultation. My final recommendation will be communicated back to the requesting physician by way of shared medical record or letter. Subjective The patient has the following: ACTIVE PROBLEM LIST Internal Derangement of Knee Other Joint Derangement, Not Elsewhere Classified, Ankle and Foot Other Enthesopathy of Ankle and Tarsus Migraines Seasonal Allergies Plantar Fasciitis Lumbar Sprain Gastroesophageal Reflux Disease Without Esophagitis Mild Intermittent Asthma Class 3 Severe Obesity Due to Excess Calories Without Serious Comorbidity With Body Mass Index (Bmi) of 50.0 to 59.9 in Adult (Hcc) Cervical Radiculopathy Svt (Supraventricular Tachycardia) ([facility]) Palpitations Chest Pain Sob (Shortness of Breath) Degenerative Joint Disease Involving Multiple Joints Limited Mobility History of Gastroesophageal Reflux (Gerd) Morbid Obesity Due to Excess Calories ([facility]) COVID-19 Immunization Status Overdue - COVID-19 VACCINE (3 - Booster for Pfizer series) Overdue since 09/26/2020 04/26/2020 Imm Admin: COVID-19 vaccine, age 12+ yr (PFIZER-BIONTECH - PURPLE TOP) 04/05/2020 Imm Admin: COVID-19 vaccine, age 12+ yr (PFIZER-BIONTECH - PURPLE TOP) CHIEF COMPLAINT: Pre-op exam HPI: CB is a 40 yo seen for PAC due to scheduled above surgery because of morbid obesity. 07/24/2021 Cris Mishra CNP Patient Summary: is 40 year old female who presents for follow-up evaluation of her obesity and related complications to the [facility]. Initial program weight: 368 lbs Last visit weight: 423 lbs Today's weight: 400 lbs Assessement/plan from last visit (06/18/21) with Cetin: Raul Fleming is a 40 year old female with Class III obesity who presents today for supervised weight loss follow-up and to finalize/estimate cardiopulmonary risk before proceeding with bariatric surgery. Total weight loss of 10 pounds since she started the phentermine last month. She was given a prescription and a refill (#2) and will schedule a follow-up visit in 5 weeks. Patient has been successful with the personalized nutrition and physical activity plan we discussed last visit From a cardiopulmonary standpoint, the patient is at an acceptable risk for bariatric surgery after review of recent EKG, echocardiogram, chest x-ray, and labs. Follow-up visit for management of above interventions in 4-5 weeks. HPI:Since last visit she has lost another 13 lbs as a result of smaller meals, no desire to eat, and has more energy. The ultimate goal set by the surgeon and the dietitian is to reach a weight of 400 pounds so that she can eventually proceed with the gastric bypass versus a sleeve. She is happy to have reached that goal as of today. Anti-obesity medication: Phentermine. 37.5 mg, Start date: 05/21/21, Starting weight: 423 lbs Benefit: Increased energy, increased satiety Adverse effects: none Dietary changes: Has been eating smaller meals, no snacking between meals, and has less desire to complete a meal. Exercise: She has been using an [employer] program Stress: Stable - lost her car in February. Struggling with transportation Sleep: no insomnia, snoring, or SDB. REVIEW OF SYSTEMS: General: No weight loss, malaise or fevers. Neurological: Positive for: headaches (+migraines, rx as needed, rarely used). Negative for: cerebral palsy, STRAW BOSS tumor, multiple sclerosis, Parkinson's disease, peripheral neuropathy, seizures, TIA and strokes. Respiratory: +former smoker Positive for: asthma (rx as needed). Cardiovascular: Positive for: arrhythmia (hx palpitations, SVT, no current issues or tx) Negative for: anticoagulation therapy, atrial fibrillation, CAD, chest pain, CHF, congenital heart defect, DVT/PE, hyperlipidemia, hypertension, recent GA, murmur/valvular heart disease, open heart surgery and valve surgery. GI: See HPI. Positive for: GERD (on rx) Negative for: abdominal pain, dysphagia, hepatitis, irritable bowel syndrome, inflammatory bowel disease, liver disease, nausea, pancreatitis, vomiting and ETOH >2 drinks/day. : No history of dysuria, frequency or incontinence, stones or chronic kidney disease. No difficulty urinating, nocturia > 1 time per night or hematuria. SPACE BUYER: Negative for abnormal vaginal bleeding, abnormal vaginal discharge. Endocrine: No history of diabetes. Has not taken steroids within the past 30 days. No history of endocrinological symptoms or problems. Hematology: No history of bleeding or clotting disorder. Patient is not taking anti-coagulation or platelet medications. No history of hematological symptoms or problems. Oncology: No history of CA metastasis, chemo within 30 days, or radiotherapy within 90 days. No history of oncological symptoms or problems. Psych: No history of psychiatric symptoms or problems. Musculoskeletal: Negative for joint pain or swelling, back pain or muscle pain. Skin: Negative for lesions, rash and itching. PAST MEDICAL HISTORY Diagnosis Date Autoimmune disease (HCC) Degeneration of intervertebral disc, site unspecified Depression Migraines Mild intermittent asthma Obesity Osteoarthritis of both knees Plantar fasciitis Psoriasis PAST SURGICAL HISTORY Procedure Laterality Date ADENOIDECTOMY PRIMARY <AGE 11 Adenoidectomy DELIVERY ONLY , low cervical LAPAROSCOPY SURG CHOLECYSTECTOMY 2013 PAST SURGICAL HISTORY OF Bilateral arthoscopy to ankles, scar tissue removal and tendon lengthening TONSILLECTOMY PRIMARY/SECONDARY <AGE 11 Tonsillectomy FAMILY HISTORY Problem Relation Age of Onset Diabetes Maternal Grandmother Diabetes Maternal Uncle Social History Tobacco Use Smoking status: Former Packs/day: 0.25 Years: 24.00 Pack years: 6.00 Types: Cigarettes Start date: 03/19/1990 Quit date: 2014 Years since quittin.6 Smokeless tobacco: Never Tobacco comments: quit in 05/15 Vaping Use Vaping Use: Never used Substance Use Topics Alcohol use: Yes Comment: rarely Drug use: No Prior to Admission medications as of 09/18/21 1135 Medication Sig Last Dose Taking omeprazole (PRILOSEC) 40 mg capsule Take 1 capsule by mouth twice daily. Taking Yes pregabalin (LYRICA) 75 mg capsule Take 1 capsule by mouth twice daily for 30 days. Taking Yes albuterol (PROVENTIL) 2.5 mg /3 mL (0.083 %) nebulizer solution Use 3 mL via nebulizer every 4 hours as needed for wheezing/shortness of breath. Taking Yes albuterol HFA (PROAIR HFA) 90 mcg/actuation inhaler Inhale 2 Puffs as instructed every 4 hours as needed. Taking Yes SUMAtriptan (IMITREX) 100 mg tablet Take 1 tablet by mouth as needed. START AT ONSET OF HEADACHE. MAY REPEAT DOSE AFTER 2 HOURS. Taking Yes loratadine (CLARITIN) 10 mg tablet Take 1 tablet by mouth once daily as needed. Taking Yes ammonium lactate (AMLACTIN) 12 % lotion apply to rash 2-3 times a day as needed Taking Yes minocycline (MINOCIN, DYNACIN) 100 mg capsule Take 1 capsule by mouth once daily. Patient not taking: Reported on 09/18/2021 Not Taking mupirocin (BACTROBAN) 2 % ointment Apply 1 application to affected area three times daily. naproxen (NAPROSYN) 500 mg tablet Take 1 tablet by mouth twice daily as needed for pain. Take with food. albuterol (PROVENTIL) 2.5 mg /3 mL (0.083 %) nebulizer solution Albuterol Aerosols Active 2.5 MG EVERY 4 HOURS WHILE AWAKE December 04, 2018 8:47pm Patient not taking: Reported on 09/18/2021 Not Taking nabumetone (RELAFEN) 500 mg tablet Take 500 mg by mouth twice daily. TAKE WITH FOOD. No medication comments found. ALLERGIES Allergen Reactions Environmental [Othe* Gabapentin Other: See Comments Prednisone Mental Status Change Topamax [Topiramate] Other: See Comments anxiety Objective PHYSICAL EXAM: General: alert and oriented (x3), healthy appearance and morbidly obese. Pertinent negatives noted - not distressed. Skin: normal color, no rash or lesions. HEENT: EOM intact and pupils equal round. Pertinent negatives noted - no carotid bruit. Cardiovascular: regular rate and rhythm, normal S1 and S2, no rub, murmurs, or gallop. Respiratory: normal breath sounds, no wheezes or crackles. No chest wall deformity or tenderness. Abdomen: soft. Pertinent negatives noted - not tender. Extremities: no deformity, no edema or tenderness, no joint swelling or clubbing. Neurological: normal cognition and motor skills. Gait normal. No weakness or sensory deficit. PAIN ASSESSMENT: VITALS: BP 118/72 Pulse 101 Temp (Src) 97.9 (Temporal) Resp 16 Ht 5' 9 (1.75m) Wt 394 lb (178.7kg) SpO2 96% LMP 07/29/2021 BMI 58.16 kg/(m^2). Diagnostic tests reviewed for today's visit: Lab Value Units Date High Low HB 13.0 g/dL 09/17/2021 15.5 11.5 HCT 41.4 % 09/17/2021 46.0 36.0 WBC 8.50 k/uL 09/17/2021 11.00 3.70 PLT 315 k/uL 09/17/2021 400 150 NA 141 mmol/L 05/01/2021 144 136 K 4.1 mmol/L 05/01/2021 5.1 3.7 GLUC 110 mg/dL 05/01/2021 99 74 BUN 13 mg/dL 05/01/2021 21 7 CREAT 0.66 mg/dL 05/01/2021 0.96 0.58 PTSEC No results within date range. INR No results within date range. APTT No results within date range. ALT 20 U/L 05/01/2021 38 7 AST 19 U/L 05/01/2021 35 13 TBILI 0.2 mg/dL 05/01/2021 1.3 0.2 TSH 2.750 mIU/L 05/20/2021 4.200 0.270 Lab Value Units Date High Low HCGQT No results within date range. UHCG No results within date range. HCG, BODY* No results within date range. Lab Value Units Date High Low ABORHD No results within date range. ABSCREEN No results within date range. Hemoglobin A1C (%) Date Value 09/25/2020 5.4 05/13/2018 5.3 03/31/2017 5.2 11/09/2015 5.4 Recent Results (from the past 8760 hour(s)) ECG COMPLETE Collection Time: 03/04/21 2:30 PM Result Value Ventricular Rate 76 Atrial Rate 76 P-R Interval 170 QRS Duration 88 QT Interval 364 QTC Calculation ([place]) 409 Calculated P [place] 20 Calculated R [place] -15 Calculated T [place] 1 Impression NORMAL SINUS RHYTHM LEFT VENTRICULAR HYPERTROPHY ABNORMAL ECG Recent Results (from the past 94638 hour(s)) ECHO Collection Time: 02/13/20 8:10 AM Impression CONCLUSIONS: - Technically difficult exam due to body habitus. - Exam indication: Abnormal ECG - The left ventricle is normal in size. Left ventricular systolic function is normal. EF = 57 5% (2D biplane) Normal left ventricular diastolic function. - The right ventricle is normal in size. Right ventricular systolic function is normal. - There is no evidence of significant valvular stenosis or insufficiency on this study. - The patient has not had a prior CC echocardiographic exam for comparison. * * * Final * * * Assessment Gastroesophageal reflux disease without esophagitis Assessment: controlled on rx Migraines Assessment: rx as needed Mild intermittent asthma Assessment: albuterol as needed, former social smoker (vague hx given) SVT (supraventricular tachycardia) ([facility]) Assessment: hx, thought to be anxiety induced. Received cardiac evaluation 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 supraventricular tachycardia documented by Holter monitor most of her palpitation is likely anxiety related due to sinus tachycardia in light of normal echocardiography normal treatment is recommended at this time if her symptoms become troublesome and lifestyle limiting we could consider small dose Follow-up in a yearly basis Class 3 severe obesity due to excess calories without serious comorbidity with body mass index (BMI) of 50.0 to 59.9 in adult (HCC) Assessment: Body mass index is 58.18 kg/m . Amin Activity Status Index: METS: Climb a flight of stairs or walk up a hill (5.50 METs) DASI Score: 5.5 Patient denies any chest pain or undue shortness of breath with the above physical activity. Clinical Frailty Scale: 3. Well, with treated comorbid disease STOP-Bang Score: Snores loudly BMI greater than 35 kg/m^2 Has a large neck Denies feeling tired, fatigued, or sleepy during the daytime Has not been observed to stop breathing or choking/gasping during sleep Denies having high blood pressure Patient 50 years old or younger Non-male patient STOP-Bang Score: 3 [id number] Score: Age: <65 Sex: female CHF history: No Hypertension history: No Stroke/TIA/thromboembolism history: No Vascular disease history: No Diabetes history: No [id number] Score: 1 ARISCAT Score: Age: <=50 Preoperative SpO2: >=96% Respiratory infection in the last month: No Preoperative anemia: No Surgical incision: peripheral Duration of surgery: <2 hrs Emergency procedure: No ARISCAT Score: 0 ASA Class: 3 ANESTHESIA FINDINGS: Intubation History: No history of difficult intubation Significant Anesthesia Considerations: none Airway History: No history of difficult airway I - PHYSICAL EVALUATION AIRWAYTracheostomy tube not present Mallampati: I. TM distance: >3 FB. Neck ROM: full ROM without neurological symptoms. Mouth opening: adequate. Short neck: no. Thick neck: yes DENTAL Dental findings: teeth intact. II - ANESTHESIA PLAN ASA Score: 3 Anesthetic Plan: other Anesthetic plan additional comments: *PACC/TCI - anesthesia choice. Informed Consent Anesthetic risks, benefits, alternatives, personnel and consent discussed: yes. Patient / Responsible Alliance Party agrees to proceed: yes Patient / Surrogate agrees to blood products: Yes Prepared for Surgery: optimally prepared for surgery. CONSULTS: Patient does not require consults for optimization at this time Planned Anesthetic: other anesthesia choice The Following Tests/Procedures Have Been Initiated: No orders of the defined types were placed in this encounter. Instructions Given to Patient: Instructions located in the after visit summary. Patient given verbal and written preop instructions and voices comprehension and compliance. SIGNATURE: Mary Moura APRN.CNP PATIENT NAME: Raul Fleming DATE: September 18, 2021 TIME: 11:41 AM PAGER/CONTACT #: documented in this encounter [place] 09-18-2021 Miscellaneous Notes Last office visit 08/06/2021. Patient phones requesting refills as follows: Requested Prescriptions Pending Prescriptions Disp Refills omeprazole (PRILOSEC) 40 mg capsule 60 capsule 5 Sig: Take 1 capsule by mouth twice daily. Please review and advise. Ly Norton LPN documented in this encounter [place] 09-17-2021 Miscellaneous Notes BMI SPECIALTY CARE COORDINATION TELEPHONE ENCOUNTER Chief complaint & duration: feeling of no energy since 09-15-21, cramping bilateral legs arms Patient preparing for RYGB scheduled 10/01/21 started liquid diet (3 week pre op) on 09/14/21 and reports on 09/15/21 began feeling low energy, tired. Reports intermittent feeling lightheaded. Patient states It is not like I'm going to pass out, I just feel woozy, lightheaded. Last night I went upstairs to go to bed and noticed a big difference in the amount of energy required. I was so exhausted when I got to the top of the stairs. Last BM 09/17/21 soft brown; Urine pale yellow. Patient reports on 09/14/21 began taking 5 Atkins protein shakes a day, sugar free jello, sugar free popsicles, chicken broth, along with 64 ounces of clear liquid each day Complaint of intermittent cramping bilateral legs and arms; lasting 30 seconds. Moving or stretching the extremity makes it feel better and then it goes away. Patient is not taking vitamin B-complex. Recommendation: Advised patient I would reach out to surgical team and follow up with recommendation. Recommend patient begin taking vitamin B -complex. Patient verbalized understanding and will begin taking today. 09/17/[address] Faith patient verbalized understanding to completed lab work today. Will follow. documented in this encounter [place] 09-13-2021 Miscellaneous Notes BMI SPECIALTY CARE COORDINATION SURGERY PRE-OP EDUCATION NOTE AMBULATORY PATIENT EDUCATION NOTE TOPIC: SURVIVAL SKILLS: RYGB READINESS TO LEARN COGNITIVE ABILITY: Alert and oriented MOTIVATION TO LEARN: Eager FAMILY SUPPORT: High - Very involved in pt care INSTRUCTION PROVIDED TO: Patient PATIENT LEARNS BEST BY: Individual Instruction FACTORS AFFECTING LEARNING: None PHYSICAL LIMITATIONS AFFECTING LEARNING: None LEARNING RESPONSE DIAGNOSIS: Morbid Obesity METHOD OF INSTRUCTION: Individual instruction PATIENT / FAMILY RESPONSE: Verbalizes understanding of: INFECTION MANAGEMENT-Signs and symptoms of an infection and importance of contacting the physician PAIN MANAGEMENT-Effective strategies to manage pain in addition to pain medication POST-OPERATIVE INSTRUCTIONS-Correct actions to take to reduce postoperative complications PRE-OPERATIVE INSTRUCTIONS-Correct action to take to follow pre-operative instructions FOLLOW-UP PLAN: Patient instructed to call with any further issues SUPPLEMENTAL MATERIAL: directed to [facility] website REFERRAL (RECOMMENDATION): None Surgery Pre-Op Education Note in Nurse Visit Education video modules viewed by the patient: Yes Postop prescriptions provided to the patient: No prescriptions will be sent at time of pre op visit with surgeon Postop Surgeon Visit scheduled: Yes On-Call & Clinic Phone Number given to the Patient: Yes Pre surgery checklist reviewed: Yes Patient Instructions for the Liquid Diet: Day Before Surgery - Liquid Diet Instruction Review 1. Last Protein shake should be before 6 pm. 2. It is important that you stay hydrated - 64 ounces of fluid per day. 3. Drink a 28-32 ounce bottle of a regular (not sugar free) sport drink (Gatorade, Powerade, etc.) the night prior to surgery. If the sport drinks aren t tolerable, may substitute with no sugar added - no pulp juice - apple, cranberry, lemonade, white grape or orange. Day of Surgery Clear Liquid Diet Drink 12-20 ounces of a regular sport drink (or juice as above) stop liquids 2 hours before scheduled arrival time. Other Instructions Reviewed: Skin Preparation: Dial antibacterial soap/ Hibiclens bottle & instructions, Linda, wound care, vitamin & nutrients, activity restrictions post op, discharge instructions & surgical guide, incentive spirometry;diet progression-lynette phase I & II & 2wk liquid diet prior to surgery, activity level & pt responsibility during hospitalization. Sleep Apnea: n/a Even if you don't have the diagnosis of sleep apnea, the pain medicine you receive and your weight put you at risk for breathing complications and apnea after surgery. After your operation, RT will assess you in the recovery room and again on the francois. They will most likely ask you to wear a face mask that will deliver oxygen using some mild positive pressure. The machine will automatically adjust the amount of pressure you receive. Wearing the mask does not mean that you will need to go home with it or have the diagnosis of sleep apnea. It will only be used after surgery to maintain your oxygen levels. Do not take pain medication three hours before bedtime as it may cause breathing difficulty. If you are having pain at bedtime you may take two Extra Strength Tylenol. Lianne Welch RN documented in this encounter [place] 09-03-2021 Miscellaneous Notes [facility] SPECIALTY CARE COORDINATION SURGERY APPROVAL CALL Received e-mail confirmation of insurance approval for bariatric surgery.Pre-operative call placed to the patient, this RN spoke with patient and agreed upon a surgery date of October 01 2021. Surgical episode request sent to [facility] surgery scheduling. Creatinine level 0.66 Patient instructed to start pre-op 800 calorie total protein liquid diet high protein Slimfast (4.5) or glucose controlled Boost (4.5) daily beginning 2 weeks prior to surgery. - Stop all ASA and NSAID products, [place] 3 fish oil, herbal products such as ginko etc. Stop vitamins EXCEPT B COMPLEX- take this up to the day before surgery - Medication List reviewed. Patient confirmed she is stopping nabumetone and is not taking naproxen. - Patient denies use of estrogen products . - No VICKY - Pt instructed to fax FMLA forms to [phone] and allow 7-10 days for completion. Linda video assigned and Pt will view Drop video during pre-op nurse visit. All questions and concerns addressed and patient verbalized understanding. - Patient case reviewed. All nutrition appointments completed, psychology clearance obtained, surgeon visit and procedure type verified, medical optimization obtained and all testing complete. Con ABO to be ordered Suma Monsalve RN documented in this encounter [place] 08-28-2021 History of Present illness Narrative Consultation requested by Viviana Marie APRN.TEMPLE MEAT CUTTER for an opinion regarding facial rash. My final recommendations will be communicated back to the requesting physician by way of shared Medical record in [facility]. Raul Fleming is a 40 year old White female with w/o keratosis pilaris without history of melanoma or non-melanoma skin cancer who presents for initial consultation. She is referred by [facility] care concerned about a facial rash beginning ~06/29/21. Has itching, burning, and drainage from scratching skin. Pt seen 06/13/15 in dermatology with similar complaints. She was diagnosed with KP and given ammonium lactate 12% lotion. Was also prescribed 2.5% hydrocortisone for possible irritant contact dermatitis. Had been on Lyrica(pregabalin) for years which was recently stopped. No new meds, pets, topical products, soaps, outdoor contacts or recent travel. Patient denies any other skin disorders anywhere else on body. Presently hoping to qualify for bariatric surgery. No history of lidocaine or epinephrine allergy. Latex Allergy: no Last Dermatology Visit: [facility] - Dr Grupo Shane(06/13/15) Referred by: Viviana Marie(RUG SHAMPOOER.TEMPLE MEAT CUTTER) DERMATOLOGY HISTORY: Personal Hx of skin cancer: no Personal Hx of atypical moles: no Family Hx of malignant melanoma: no Antibiotics before dental or other procedures: no Artificial joints: no Pacemaker: no Anticoagulants: no PAST MEDICAL HISTORY Diagnosis Date Autoimmune disease (HCC) Degeneration of intervertebral disc, site unspecified Depression Migraines Mild intermittent asthma Obesity Osteoarthritis of both knees Plantar fasciitis Psoriasis Current Outpatient Medications Medication Sig omeprazole (PRILOSEC) 40 mg capsule Take 1 capsule by mouth twice daily. albuterol (PROVENTIL) 2.5 mg /3 mL (0.083 %) nebulizer solution Use 3 mL via nebulizer every 4 hours as needed for wheezing/shortness of breath. albuterol HFA (PROAIR HFA) 90 mcg/actuation inhaler Inhale 2 Puffs as instructed every 4 hours as needed. SUMAtriptan (IMITREX) 100 mg tablet Take 1 tablet by mouth as needed. START AT ONSET OF HEADACHE. MAY REPEAT DOSE AFTER 2 HOURS. loratadine (CLARITIN) 10 mg tablet Take 1 tablet by mouth once daily as needed. nabumetone (RELAFEN) 500 mg tablet Take 500 mg by mouth twice daily. TAKE WITH FOOD. ammonium lactate (AMLACTIN) 12 % lotion apply to rash 2-3 times a day as needed minocycline (MINOCIN, DYNACIN) 100 mg capsule Take 1 capsule by mouth once daily. mupirocin (BACTROBAN) 2 % ointment Apply 1 application to affected area three times daily. naproxen (NAPROSYN) 500 mg tablet Take 1 tablet by mouth twice daily as needed for pain. Take with food. albuterol (PROVENTIL) 2.5 mg /3 mL (0.083 %) nebulizer solution Albuterol Aerosols Active 2.5 MG EVERY 4 HOURS WHILE AWAKE December 04, 2018 8:47pm pregabalin (LYRICA) 75 mg capsule Take 1 capsule by mouth twice daily for 30 days. No current facility-administered medications for this visit. ALLERGIES: Environmental [Other], Gabapentin, Prednisone, and Topamax [Topiramate] Social History Tobacco Use Smoking status: Former Smoker Packs/day: 0.25 Years: 24.00 Pack years: 6.00 Types: Cigarettes Start date: 03/19/1990 Quit date: 2015 Years since quittin.5 Smokeless tobacco: Never Used Tobacco comment: quit in 05/15 Vaping Use Vaping Use: Never used Substance Use Topics Alcohol use: Yes Comment: rarely Drug use: No OBJECTIVE: Patient is well appearing and well nourished White female with type 2 skin and in no acute distress. Scattered annular and linear excoriations on face with surrounding PIH. Outer aspects of both arms and upper back with diffuse 1 mm reddish brown erythematous hyperkeratotic follicular papules c/w her keratosis pilaris ASSESSMENT/PLAN: (S00.81XD) Excoriation of face, subsequent encounter (primary encounter diagnosis) Comment: possibly secondary to superficial skin infection Plan: mupirocin (BACTROBAN) 2 % ointment applied TID May add minocycline (MINOCIN, DYNACIN) 100 mg capsule If lesion recurs Virtual visit in 8 weeks documented in this encounter [place] 08-27-2021 Nurse Note Pt being seen for facial rash. documented in this encounter [place] 08-14-2021 Miscellaneous Notes Patient phones requesting refills as follows: Pending Prescriptions Disp Refills OMEPRAZOLE 40 MG CAPSULE,DELAYED RELEASE 60 capsule 0 Sig: Take 1 capsule by mouth twice daily. JUAN LUIS: No CEE 08/06/21 NOV no upcoming appt (appt on 08/27/21 is with Derm) Please review and advise. Td Stiles LPN documented in this encounter [place] 08-07-2021 History of Present illness Narrative Pseudo date submission for bariatric surgery insurance pre-determination per Navigation team request. documented in this encounter [place] 08-06-2021 Instructions Norma Nolan APRN.TEMPLE MEAT CUTTER - 08/06/2021 11:53 AM EDT Please arrange follow up with derm. You can also reach out to Dr. Diony Brown at [facility] [phone] documented in this encounter [place] 08-06-2021 History of Present illness Narrative This note was created using [employer]. Subjective Raul Fleming is a 40 year old female. 40 year old female with PMH SVT, GERD, and psoriasis presents with rash. Acute onset of symptoms was mid June Red itchy rash to face Endorses it occurred after being ill, specifically mesenteric adenitis. She was seen in [facility] end of June And was diagnosed with viral vs. Allergic reaction Was given Medrol Dole Pack and Keflex States no improvement Attempted Neopsorin. Has used Cortisone cream without relief. It is not working States history of skin issues but states embarrased by looking like I have meth sores Endorses that there were talks about possible RA Has not seen derm in past. The history is provided by the patient. No staff interpreter was used. Rash This is a new problem. The current episode started 1 to 4 weeks ago. The problem has been waxing and waning since onset. Location: face. The rash is characterized by dryness, redness and pain. It is unknown if there was an exposure to a precipitant. Pertinent negatives include no anorexia, congestion, cough, diarrhea, eye pain, facial edema, fatigue, fever, joint pain, nail changes, rhinorrhea, shortness of breath, sore throat or vomiting. Past treatments include oral steroids, cold compress and topical steroids. The treatment provided no relief. Her past medical history is significant for allergies and eczema. There is no history of asthma or varicella. PAST MEDICAL HISTORY Diagnosis Date Autoimmune disease (HCC) Degeneration of intervertebral disc, site unspecified Depression Migraines Mild intermittent asthma Obesity Osteoarthritis of both knees Plantar fasciitis Psoriasis PAST SURGICAL HISTORY Procedure Laterality Date ADENOIDECTOMY PRIMARY <AGE 11 Adenoidectomy DELIVERY ONLY , low cervical LAPAROSCOPY SURG CHOLECYSTECTOMY 2013 PAST SURGICAL HISTORY OF Bilateral arthoscopy to ankles, scar tissue removal and tendon lengthening TONSILLECTOMY PRIMARY/SECONDARY <AGE 11 Tonsillectomy ALLERGIES Environmental [Other], Gabapentin, Prednisone, and Topamax [Topiramate] MEDICATIONS Phentermine HCl 37.5 mg tablet Take 1 tablet by mouth once daily for 30 days. naproxen (NAPROSYN) 500 mg tablet Take 1 tablet by mouth twice daily as needed for pain. Take with food. omeprazole (PRILOSEC) 40 mg capsule Take 1 capsule by mouth twice daily. albuterol (PROVENTIL) 2.5 mg /3 mL (0.083 %) nebulizer solution Albuterol Aerosols Active 2.5 MG EVERY 4 HOURS WHILE AWAKE December 04, 2018 8:47pm pregabalin (LYRICA) 75 mg capsule Take 1 capsule by mouth twice daily for 30 days. albuterol (PROVENTIL) 2.5 mg /3 mL (0.083 %) nebulizer solution Use 3 mL via nebulizer every 4 hours as needed for wheezing/shortness of breath. albuterol HFA (PROAIR HFA) 90 mcg/actuation inhaler Inhale 2 Puffs as instructed every 4 hours as needed. SUMAtriptan (IMITREX) 100 mg tablet Take 1 tablet by mouth as needed. START AT ONSET OF HEADACHE. MAY REPEAT DOSE AFTER 2 HOURS. CALCIUM CITRATE ORAL Take by mouth. multivit-min/ferrous fumarate (MULTI VITAMIN ORAL) Take by mouth. loratadine (CLARITIN) 10 mg tablet Take 1 tablet by mouth once daily as needed. nabumetone (RELAFEN) 500 mg tablet Take 500 mg by mouth twice daily. TAKE WITH FOOD. ammonium lactate (AMLACTIN) 12 % lotion apply to rash 2-3 times a day as needed doxycycline (VIBRA-TABS) 100 mg tablet Take 1 tablet by mouth twice daily for 10 days. methylPREDNISolone (MEDROL, OLIVIER,) 4 mg Dose-Pack Follow dosing instructions, take with food. FAMILY HISTORY Problem Relation Age of Onset Diabetes Maternal Grandmother Diabetes Maternal Uncle Social History Tobacco Use Smoking status: Former Smoker Packs/day: 0.25 Years: 24.00 Pack years: 6.00 Types: Cigarettes Start date: 03/19/1990 Quit date: 2015 Years since quittin.4 Smokeless tobacco: Never Used Tobacco comment: quit in 05/15 Vaping Use Vaping Use: Never used Substance Use Topics Alcohol use: Yes Comment: rarely Drug use: No Review of Systems Constitutional: Negative for activity change, appetite change, chills, diaphoresis, fatigue and fever. HENT: Negative for congestion, rhinorrhea and sore throat. Eyes: Negative for pain, discharge, redness and itching. Respiratory: Negative for cough and shortness of breath. Cardiovascular: Negative for chest pain, palpitations and leg swelling. Gastrointestinal: Negative for abdominal pain, anorexia, diarrhea and vomiting. Musculoskeletal: Negative for arthralgias, back pain, gait problem and joint pain. Skin: Positive for rash. Negative for nail changes. Allergic/Immunologic: Negative for environmental allergies, food allergies and immunocompromised state. Hematological: Negative for adenopathy. Does not bruise/bleed easily. Psychiatric/Behavioral: Negative for agitation and behavioral problems. Objective BP 126/84 Pulse 92 Resp 18 LMP 07/29/2021 SpO2 99% Physical Exam Vitals and nursing note reviewed. Constitutional: General: She is not in acute distress. Appearance: Normal appearance. She is normal weight. She is not ill-appearing, toxic-appearing or diaphoretic. HENT: Head: Normocephalic and atraumatic. Right Ear: Ear canal and external ear normal. Left Ear: Ear canal and external ear normal. Nose: Nose normal. No congestion or rhinorrhea. Mouth/Throat: Mouth: Mucous membranes are moist. Pharynx: No oropharyngeal exudate or posterior oropharyngeal erythema. Eyes: General: Right eye: No discharge. Left eye: No discharge. Extraocular Movements: Extraocular movements intact. Conjunctiva/sclera: Conjunctivae normal. Pupils: Pupils are equal, round, and reactive to light. Cardiovascular: Rate and Rhythm: Normal rate and regular rhythm. Pulses: Normal pulses. Heart sounds: Normal heart sounds. No murmur heard. No friction rub. Pulmonary: Effort: Pulmonary effort is normal. No respiratory distress. Breath sounds: Normal breath sounds. No stridor. No wheezing, rhonchi or rales. Chest: Chest wall: No tenderness. Abdominal: General: Abdomen is flat. There is no distension. Palpations: Abdomen is soft. There is no mass. Tenderness: There is no abdominal tenderness. There is no right CVA tenderness, left CVA tenderness, guarding or rebound. Hernia: No hernia is present. Musculoskeletal: General: No swelling, tenderness, deformity or signs of injury. Normal range of motion. Cervical back: Normal range of motion and neck supple. No rigidity. Right lower leg: No edema. Left lower leg: No edema. Lymphadenopathy: Cervical: No cervical adenopathy. Skin: General: Skin is warm and dry. Coloration: Skin is not jaundiced or pale. Findings: Rash present. No bruising, erythema or lesion. Comments: Nasal region and forehead with pruritic, tender erythematic shallow ulceration like rash. No crepitus. No abscess. No petechia. No eye involvement Neurological: General: No focal deficit present. Mental Status: She is alert and oriented to person, place, and time. Cranial Nerves: No cranial nerve deficit. Sensory: No sensory deficit. Motor: No weakness. Coordination: Coordination normal. Gait: Gait normal. Psychiatric: Mood and Affect: Mood normal. Behavior: Behavior normal. Thought Content: Thought content normal. Judgment: Judgment normal. Assessment and Plan ASSESSMENT/PLAN: 1. Facial rash - ICD9: 782.1, ICD10: R21 Ongoing for one month Seen and placed on keflex, medrol dose pack No relief Denies accompanying URI sx Hemodynamically stable Viral vs. Autoimmune vs. Bacterial Discussed with patient, unsure of exact cause Will trial Doxcyline, and provide another round of Medrol - CONSULT TO DERMATOLOGY-appointment made at discharge Norma Nolan APRN.FATEMEH documented in this encounter [place] 07-30-[address] - 07/30/2021 9:24 AM EDT Nutrition Action Plan Please call [phone], option 5. Leave a message for the navigation team when you are finished with all clearances (nutrition, psychology, medical, surgeon) 1.Starting ~3 weeks after surgery take 2 Bariatric Advantage Chewable Multivitamins with iron and additional 1200-1500mg calcium citrate 2. Protein goal: 92 grams protein/day 3. Fluid goal: 64oz per day water. (no calories, no caffeine, no carbonation, no alcohol) 4. Exercise goal: 150-250 minutes combination cardio/strength training/week 5. Practice mindful eating habits-protein first, take small portions, eat slowly, chew thoroughly, separate fluid from food 6. Start the full liquid diet (2) weeks prior to surgery using 4 1/2 Boost Glucose Control OR Slim Fast High Protein shakes per day, continue a minimum of 64 oz water per day during this time. No solid food. May have sugar free popsicle and sugar free jello -During the 2 week liquid diet before surgery include a daily Super B-Complex vitamin 7. Advance diet as tolerated after surgery. Use the Your Guide to Surgery for guidance and meal plans Preop weight goal: 390-400 lbs Follow Up as needed and 2 weeks before surgery documented in this encounter [facility] 07-30-2021 History of Present illness Narrative The [facility]: Virtual Consult Re-assessment This visit was performed virtually due to the COVID-19 epidemic as an effort to protect patients and minimize exposure. Consent from patient received to conduct visit virtually. This Team Access Model visit is a virtual encounter. It required patient-provider interaction for the medical decision making as documented below. PROGRESS: Nutrition Intervention (date of last encounter A Emmanuel 05/22/21): 1. Start the partial liquid protein plan as outlined below: MET Breakfast: Protein shake and fruit Lunch: Protein shake and fruit Dinner: 4 oz lean meat/fish, vegetables, fruit and up to 1c starch/whole grains Snack: < 150 calories 1x per day (should contain protein) 2. Fluids: At least 64 oz per day no carbonation, no caffeine, no calories MET 3. Continue to take 2 Bariatric Advantage Soft Chews with additional 1200-1500mg calcium citrate and 45mg iron: [email or web address] MET 4. Exercise: Minimum 30 minutes 5-6x per week MET 5. Practice these mindful eating techniques: MET Eat slowly by taking small bites and chewing thoroughly Eat protein first, vegetables second, and starches last Separate fluids from foods for 30 minutes before and after each meal/snack Protein Goal: 92 gm per day MET Weight Loss Goal: 390-[address] Schmitz MET CHANGES IN TREATMENT: Patient met goal(s): Yes Actions to implement interventions: Breakfast: premier protein shake (30 gm pro) and 1 small apple Snack: none Lunch: premier protein shake (30 gm pro) and fruit Snack: none OR vegetables Dinner: 4oz salmon (28 gm pro) and steamed vegetables Snack: none Fluids: 66oz water Vitamins/Supplements: vitamin D, Bariatric Advantage 2 soft chews and 1500mg calcium daily Physical Activity: cardio and body weight exercise on VR system 3 days a week for 60 minutes each session CLINICAL IMPRESSIONS: excellent ANTHROPOMETRICS Height per patient: 69 Weight per patient: 400# Most recent height and weight per EPIC Height: Last 1 Encounter Ht Readings: Date: Ht: 07/24/2021 175.3 cm (5' 9 ) Weight: Last 1 Encounter Wt Readings: Date: Wt: 07/24/2021 181.4 kg (400 lb) Body mass index is 59.07 kg/m . Educational materials provided: None this visit Patient presents for follow up nutrition Virtual Consult. She is currently preparing to undergo bariatric surgery, interested in RYGB with Dr. Schmitz. Since last assessment, weight has decreased by 23 lbs, meeting her weight goal. He was recently started on Phentermine with Dr. Jules; reports improved satiety and smaller portions. Diet recall reveals consistent meal pattern with regular meals and snacks. Patient uses protein shake to replace 2 meals as recommended. Dinner includes mostly lean protein and vegetables with minimal carbohydrates. Protein intake is adequate with protein shakes and lean meats. Fluid intake is adequate with water as primary beverage. Patient completes recommended 150+ minutes physical with a combination of cardio and strength training. She has already started taking Bariatric Advantage Chewable Multivitamins and additional calcium citrate as recommended. Patient confirms to have started eating slowly and fluid from food. After session today, patient able to verbalize protein/fluid/exercise goals, recommendations for vitamin/minerals, use of protein shakes for meal replacement and for 2 week full liquid diet phase. Also able to demonstrate post op diet advancement/portion control using food models. Anticipate post op compliance. Patient meets the National Institutes of Health guidelines for weight loss surgery and has Issue insurance and therefore may be required to complete 0 months of Nutrition Intervention for clearance for surgery.This is her 3ed visit. The patient has been thoroughly evaluated and educated on good dietary practices and is capable of following these guidelines pre- and post surgically. From nutrition standpoint, the patient is cleared for weight loss surgery. If the patient desires, she may continue to follow up with the dietitian on a monthly basis until all surgical requirements are met. Nutrition Diagnosis: Overweight/obesity, related to, decreased energy needs, as evidenced by BMI above normative standard for age and gender. Nutrition Intervention: Modify type and amount of food consumed for meals and snacks: Please call [phone], option 5. Leave a message for the navigation team when you are finished with all clearances (nutrition, psychology, medical, surgeon) 1.Starting ~3 weeks after surgery take 2 Bariatric Advantage Chewable Multivitamins with iron and additional 1200-1500mg calcium citrate 2. Protein goal: 92 grams protein/day 3. Fluid goal: 64oz per day water. (no calories, no caffeine, no carbonation, no alcohol) 4. Exercise goal: 150-250 minutes combination cardio/strength training/week 5. Practice mindful eating habits-protein first, take small portions, eat slowly, chew thoroughly, separate fluid from food 6. Start the full liquid diet (2) weeks prior to surgery using 4 1/2 Boost Glucose Control OR Slim Fast High Protein shakes per day, continue a minimum of 64 oz water per day during this time. No solid food. May have sugar free popsicle and sugar free jello -During the 2 week liquid diet before surgery include a daily Super B-Complex vitamin 7. Advance diet as tolerated after surgery. Use the Your Guide to Surgery for guidance and meal plans Preop weight goal: 390-400 lbs Nutrition Monitoring & Evaluation: 1-2 pound weight loss per week Criteria: weight check and patient report Need for Follow up: as needed and 2 weeks before surgery MNT Billing Type: Re-assess/15 min 2 units Signed by: Daniel Benitez RD documented in this encounter [place] 07-24-2021 Instructions Cris Mishra APRN.[facility] - 07/24/2021 12:00 PM EDT Mutually Agreed Upon Goals Eating Plan: [address] - Log intake 2 days per week. Replace skipped meals with a protein supplement. Citelighter Plate. Activity: Apple Watch or FitBit tracker. Sleep: No electronic for 30 minutes prior to sleep 2 nights per week. Sleep Hygiene. Stress: AVE for meditation - Mindful Moments by Lucila TURNER Calm. Practice 1 minute of meditation 2x per day. Sleep Hygiene and Good Sleep Habits Establish a regular routine that includes going to bed and getting up at the same time every day, even on weekends. Maintaining a consistent sleep-wake cycle is the mcdowell to better health overall. Get an adequate amount of sleep every night. Determine the amount of sleep you need by keeping track of how long you sleep without using an alarm clock for a week. Maintain this personal sleep requirement. Go to bed when you are sleepy. If you have difficulty falling asleep or wake up shortly after going to sleep, leave the bedroom and read quietly or do some other relaxing activity. Avoid bright lights as this can cue your wake cycle. Develop sleep rituals before going to bed. Do the same things in the same order before going to bed to cue your body to slow down and relax. Avoid stress and worries at bedtime. Address tomorrow's activities, concerns, or distractions earlier in the day. Certain activities, such as listening to soft music, reading, or taking a warm bath, can help you wind down. Use your bed for sleeping and sex only. Often, doing other activities in bed like watching TV, paying bills, or working only serve to initiate worries and concerns. Let your mind associate the bed with sleeping, relaxing, and pleasure. Avoid heavy meals late in the evening; similarly, avoid going to bed hungry. A light snack, especially dairy foods, can help you sleep. Reduce your intake of caffeine and nicotine 4-6 hours before going to sleep. Stimulants interfere with your ability to fall asleep and progress into deep sleep. 200mg caffeine (a large Starbucks coffee) taken at 8 AM will impair the sleep architecture that night. Avoid alcohol 4-6 hours before bedtime. As a depressant that slows brain activity, alcohol may initially make you tired, but you will end up having fragmented sleep. In addition, being tired intensifies the effects of alcohol. Alcohol also aggravates snoring and sleep apnea particularly in men. Exercise regularly. Regular exercise, even for 20 minutes, 3 times a week, promotes deep sleep. Don't nap for more than 30 minutes or after 3 PM. Avoiding naps all together will ensure that you are tired at night. Longer naps disrupt the body's ability to stay asleep. Maintain a dark, quiet room to sleep in at a temperature with which you are comfortable. Use sleeping aids conservatively, and avoid using them for more than one or two nights per month. Avoid sleeping pills altogether if you have obstructive sleep apnea because it can be a deadly combination. documented in this encounter [facility] 07-24-2021 History of Present illness Narrative Images from the original note were not included. BMI Obesity Medicine Follow-Up Note July 24, 2021 Virtual Visit (Audio/Visual) I have discussed the nature of this visit with the patient which will occur via [facility] (Phone, Virtual Visit) and she agrees to proceed with this interaction . Patient Summary: is 40 year old female who presents for follow-up evaluation of her obesity and related complications to the [facility]. Initial program weight: 368 lbs Last visit weight: 423 lbs Today's weight: 400 lbs Assessement/plan from last visit (06/18/21) with Cetin: Raul Fleming is a 40 year old female with Class III obesity who presents today for supervised weight loss follow-up and to finalize/estimate cardiopulmonary risk before proceeding with bariatric surgery. Total weight loss of 10 pounds since she started the phentermine last month. She was given a prescription and a refill (#2) and will schedule a follow-up visit in 5 weeks. Patient has been successful with the personalized nutrition and physical activity plan we discussed last visit From a cardiopulmonary standpoint, the patient is at an acceptable risk for bariatric surgery after review of recent EKG, echocardiogram, chest x-ray, and labs. Follow-up visit for management of above interventions in 4-5 weeks. HPI:Since last visit she has lost another 13 lbs as a result of smaller meals, no desire to eat, and has more energy. The ultimate goal set by the surgeon and the dietitian is to reach a weight of 400 pounds so that she can eventually proceed with the gastric bypass versus a sleeve. She is happy to have reached that goal as of today. Anti-obesity medication: Phentermine. 37.5 mg, Start date: 05/21/21, Starting weight: 423 lbs Benefit: Increased energy, increased satiety Adverse effects: none Dietary changes: Has been eating smaller meals, no snacking between meals, and has less desire to complete a meal. Exercise: She has been using an [employer] boxing program Stress: Stable - lost her car in February. Struggling with transportation Sleep: no insomnia, snoring, or SDB. Weight graph: PAST MEDICAL HISTORY Diagnosis Date Autoimmune disease (HCC) Degeneration of intervertebral disc, site unspecified Depression Migraines Mild intermittent asthma Obesity Osteoarthritis of both knees Plantar fasciitis Psoriasis Current Outpatient Medications Medication Sig Dispense Refill naproxen (NAPROSYN) 500 mg tablet Take 1 tablet by mouth twice daily as needed for pain. Take with food. 60 tablet 0 omeprazole (PRILOSEC) 40 mg capsule Take 1 capsule by mouth twice daily. 60 capsule 0 diazePAM (VALIUM) 10 mg tablet Take by mouth q 8 HR. (Patient not taking: Reported on 05/21/2021) traMADol (ULTRAM) 50 mg tablet Tramadol Active 50 MG EVERY 4 HOURS NEEDED 14 3 December 12, 2018 12:36am (Patient not taking: Reported on 05/21/2021) albuterol (PROVENTIL) 2.5 mg /3 mL (0.083 %) nebulizer solution Albuterol Aerosols Active 2.5 MG EVERY 4 HOURS WHILE AWAKE December 04, 2018 8:47pm (Patient not taking: Reported on 05/21/2021) pregabalin (LYRICA) 75 mg capsule Take 1 capsule by mouth twice daily for 30 days. 60 capsule 5 albuterol (PROVENTIL) 2.5 mg /3 mL (0.083 %) nebulizer solution Use 3 mL via nebulizer every 4 hours as needed for wheezing/shortness of breath. (Patient not taking: Reported on 05/21/2021 ) 36 mL 1 fluticasone (FLOVENT HFA) 110 mcg/actuation inhaler Inhale 2 Puffs as instructed twice daily. 1 Inhaler 5 albuterol HFA (PROAIR HFA) 90 mcg/actuation inhaler Inhale 2 Puffs as instructed every 4 hours as needed. (Patient not taking: Reported on 05/21/2021 ) 18 g 0 benzonatate (TESSALON PERLE) 100 mg capsule Take 1-2 capsules tid prn, no more than 6 in 24 hours. (Patient not taking: Reported on 05/21/2021 ) 30 capsule 0 SUMAtriptan (IMITREX) 100 mg tablet Take 1 tablet by mouth as needed. START AT ONSET OF HEADACHE. MAY REPEAT DOSE AFTER 2 HOURS. 9 tablet 5 cyclobenzaprine (FLEXERIL) 10 mg tablet Take 10 mg by mouth. (Patient not taking: Reported on 06/18/2021 ) CALCIUM CITRATE ORAL Take by mouth. multivit-min/ferrous fumarate (MULTI VITAMIN ORAL) Take by mouth. loratadine (CLARITIN) 10 mg tablet Take 1 tablet by mouth once daily as needed. 90 tablet 3 nabumetone (RELAFEN) 500 mg tablet Take 500 mg by mouth twice daily. TAKE WITH FOOD. tiZANidine (ZANAFLEX) 4 mg tablet Take 1 tablet by mouth every 8 hours as needed. (Patient not taking: Reported on 05/21/2021 ) 20 tablet 0 ammonium lactate (AMLACTIN) 12 % lotion apply to rash 2-3 times a day as needed 1 Bottle 4 No current facility-administered medications for this visit. Physical exam:LMP 06/28/2021 (Approximate) General Appearance: Well appearing, alert, in no acute distress, well-hydrated, well nourished. NAD: Breathing easy and unlabored. Assessment/Plan: Raul Fleming is a 40 year old female with Class III obesity who presents today for supervised weight loss follow-up and to finalize/estimate cardiopulmonary risk before proceeding with bariatric surgery. Total weight loss of 23 pounds since she started the phentermine in May 2021. She was given a prescription and a refill (#3) and will schedule a follow-up visit in 2 months. Patient has been successful with the personalized nutrition and physical activity plan we discussed last visit. From a cardiopulmonary standpoint, the patient is at an acceptable risk for bariatric surgery after review of recent EKG, echocardiogram, chest x-ray, and labs. Follow-up visit for management of above interventions in 8 week. The patient has attempted to lose weight with diet, exercise and behavioral pattern changes without the use of a controlled substance and the treatment has been ineffective. Discussed with the patient the different weight loss options and we decided that Phentermine was the best option. The patient will be receiving the 3rd Phentermine prescription today. The patient expressed understanding of the risks and benefits of taking Phentermine, and has a desire to proceed with therapy. While taking this medication the patient was instructed to call the office if experiencing any side effects and to check the blood pressure twice a week and let us know if it goes over 150/100. The patient is currently enrolled in a diet and exercise program The patient has no known history of contraindications The patient is free from drug or ETHO abuse The patient is not or and is aware not to become while using this medication OARS was reviewed. On 07/24/2021 by Cris Mishra APRN.FATEMEH The patient was informed that in [facility], only one month supply of medication is provided at a time, for 3 months, then a 6 month hiatus from the medication. The patient is also aware that timely refills required, with monthly [id number] office visits for monitoring of therapy and refills. The patient understands that lack of timely follow up, or not filling the medication on time every month would constitute an interruption of therapy, and the 6 month hiatus from medication would occur as per the [facility] pharmacy board rules. I spent a total of 35 minutes on the date of the service which included [id number] patient care, completing clinical documentation, obtaining and/or reviewing separately obtained history, performing a medically appropriate examination, counseling and educating the patient/family/caregiver and ordering medications, tests, or procedures. Medical Decision Making: Medical Decision Making Level: 1 - N/A All documentation from previous visit was copied and pasted, documentation has been reviewed and edited as necessary for today's visit. Cris Mishra APRN.CNP documented in this encounter [place] 07-15-2021 Miscellaneous Notes Patient phones requesting refills as follows: Pending Prescriptions Disp Refills OMEPRAZOLE 40 MG CAPSULE,DELAYED RELEASE 60 capsule 0 Sig: Take 1 capsule by mouth twice daily. JUAN LUIS: No CEE 07/15/21 NOV no upcoming appt Please review and advise. Td Stiles LPN documented in this encounter [place] 07-15-2021 History of Present illness Narrative Chief Complaint Patient presents with: Pain: left hand with numbness and shooting pain x 4 days HPI Raul Fleming is a 40 year old female who presents here today for Above Complaints. Patient complaining of persistent tingling of her left pinky, ring finger and medial palm x 4 days without fall or injury. Patient is left handed. Notes that she has pain in her elbow when bending or when resting her elbow on object. Worse in the evening. Not treating with anything OTC. Sleeps with elbow bent. Past medical history, appointments, medications, allergies reviewed. Previous Medical History PAST MEDICAL HISTORY Diagnosis Date Autoimmune disease (HCC) Degeneration of intervertebral disc, site unspecified Depression Migraines Mild intermittent asthma Obesity Osteoarthritis of both knees Plantar fasciitis Psoriasis Previous Surgical History PAST SURGICAL HISTORY Procedure Laterality Date ADENOIDECTOMY PRIMARY <AGE 11 Adenoidectomy DELIVERY ONLY , low cervical LAPAROSCOPY SURG CHOLECYSTECTOMY 2013 PAST SURGICAL HISTORY OF Bilateral arthoscopy to ankles, scar tissue removal and tendon lengthening TONSILLECTOMY PRIMARY/SECONDARY <AGE 11 Tonsillectomy Family History FAMILY HISTORY Problem Relation Age of Onset Diabetes Maternal Grandmother Diabetes Maternal Uncle Patient Allergies ALLERGIES Allergen Reactions Environmental [Othe* Gabapentin Other: See Comments Prednisone Mental Status Change Topamax [Topiramate] Other: See Comments anxiety Current Medications Current Outpatient Medications on File Prior to Visit Medication Sig Phentermine HCl 37.5 mg tablet Take 1 tablet by mouth once daily for 30 days. omeprazole (PRILOSEC) 40 mg capsule Take 1 capsule by mouth twice daily. fluticasone (FLOVENT HFA) 110 mcg/actuation inhaler Inhale 2 Puffs as instructed twice daily. SUMAtriptan (IMITREX) 100 mg tablet Take 1 tablet by mouth as needed. START AT ONSET OF HEADACHE. MAY REPEAT DOSE AFTER 2 HOURS. CALCIUM CITRATE ORAL Take by mouth. multivit-min/ferrous fumarate (MULTI VITAMIN ORAL) Take by mouth. loratadine (CLARITIN) 10 mg tablet Take 1 tablet by mouth once daily as needed. nabumetone (RELAFEN) 500 mg tablet Take 500 mg by mouth twice daily. TAKE WITH FOOD. ammonium lactate (AMLACTIN) 12 % lotion apply to rash 2-3 times a day as needed diazePAM (VALIUM) 10 mg tablet Take by mouth q 8 HR. (Patient not taking: Reported on 05/21/2021) traMADol (ULTRAM) 50 mg tablet Tramadol Active 50 MG EVERY 4 HOURS NEEDED 14 3 December 12, 2018 12:36am (Patient not taking: Reported on 05/21/2021) albuterol (PROVENTIL) 2.5 mg /3 mL (0.083 %) nebulizer solution Albuterol Aerosols Active 2.5 MG EVERY 4 HOURS WHILE AWAKE December 04, 2018 8:47pm (Patient not taking: Reported on 05/21/2021) pregabalin (LYRICA) 75 mg capsule Take 1 capsule by mouth twice daily for 30 days. albuterol (PROVENTIL) 2.5 mg /3 mL (0.083 %) nebulizer solution Use 3 mL via nebulizer every 4 hours as needed for wheezing/shortness of breath. (Patient not taking: Reported on 05/21/2021 ) albuterol HFA (PROAIR HFA) 90 mcg/actuation inhaler Inhale 2 Puffs as instructed every 4 hours as needed. (Patient not taking: Reported on 05/21/2021 ) benzonatate (TESSALON PERLE) 100 mg capsule Take 1-2 capsules tid prn, no more than 6 in 24 hours. (Patient not taking: Reported on 05/21/2021 ) cyclobenzaprine (FLEXERIL) 10 mg tablet Take 10 mg by mouth. (Patient not taking: Reported on 06/18/2021 ) tiZANidine (ZANAFLEX) 4 mg tablet Take 1 tablet by mouth every 8 hours as needed. (Patient not taking: Reported on 05/21/2021 ) No current facility-administered medications on file prior to visit. Social History Social History Tobacco Use Smoking status: Former Smoker Packs/day: 0.25 Years: 24.00 Pack years: 6.00 Types: Cigarettes Start date: 03/19/1990 Quit date: 2015 Years since quittin.4 Smokeless tobacco: Never Used Tobacco comment: quit in 05/15 Vaping Use Vaping Use: Never used Substance Use Topics Alcohol use: Yes Comment: rarely Drug use: No Review of Symptoms REVIEW OF SYSTEMS See HPI EXAM: BP 118/74 Pulse 78 Resp 18 Wt (!) 184.6 kg (407 lb) LMP 06/28/2021 (Approximate) SpO2 98% BMI 64.71 kg/m General Appearance: Well appearing, alert, in no acute distress, well-hydrated, well nourished.. Skin: Skin color, texture, turgor normal, no suspicious rashes or lesions. 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 Normal ROM of fingers and wrists. Decreased sensation to light touch over left 4th and 5th fingers. Numbness/tingling reproducible with percussion over cubital tunnel. Health Maintenance List PNEUMOCOCCAL(1 - PCV) Never done HIV SCREENING Never done DTAP,TDAP,TD(1 - Tdap) due on 06/29/2013 MAMMOGRAM Never done COVID-19 VACCINE(3 - Booster for Pfizer series) due on 09/26/2020 DEPRESSION SCREENING due on 05/01/2022 ANNUAL PCP TEAM CHRONIC DISEASE VISIT due on 07/15/2022 PAP TESTING due on 08/07/2024 HPV TESTING due on 08/07/2024 SPIROMETRY Completed INFLUENZA Completed HEPATITIS C SCREENING Completed ASSESSMENT/PLAN: 1. Cubital tunnel syndrome on left - ICD9: 354.2, ICD10: G56.22 Discussed ice, NSAIDs, rest, and sleeping with towel wrapped around her elbow to prevent bending at night. Call if not improving in 3-4 weeks. - NAPROXEN 500 MG TABLET Donald Pearl MD documented in this encounter [place] 06-26-2021 Miscellaneous Notes Pt notified. Td Stiles LPN Mesenteric adenitis is usually viral and gets better on its own. If pain is severe enough for meds, needs to see one of us, if pain is worsening or worsening symptoms, can certainly go to er. Pt called in and reports on 06/24 she went to and then [facility] ER. She had and still has R sided pain, abdominal pain, cramping, watery diarrhea, not able to eat following the BRAT diet. In the ER they did a CT and told her she had mesenteric adenitis, and that it is usually caused by an infection. They told her there was no treatment, but that she could use Tylenol for pain. Pt is stating she is still having the symptoms and now her fiance is running a fever, has diarrhea, and cramping. 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 Wanted to know if provider through she should go to the ER again, or if there was anything the provider would like to prescribe. Please call and advise. documented in this encounter [place] 06-24-2021 History of Present illness Narrative Subjective The history is provided by the patient. No staff interpreter was used. HPI Raul Fleming is a 40 year old female who presents today for CC of right sided pain, loss of appetite and diarrhea for one day. Onur is 8/10 on right side. Painful to lie down. She has used tylenol and iburpofen without relief. H/o cholecystectomy BP 124/82 Pulse 79 Temp 36.2 C (97.2 F) Resp 21 Wt (!) 188.1 kg (414 lb 9.6 oz) LMP 05/08/2021 SpO2 98% BMI 65.92 kg/m Social History Tobacco Use Smoking status: Former Smoker Packs/day: 0.25 Years: 24.00 Pack years: 6.00 Types: Cigarettes Start date: 03/19/1990 Quit date: 2014 Years since quittin.3 Smokeless tobacco: Never Used Tobacco comment: quit in 05/15 Vaping Use Vaping Use: Never used Substance Use Topics Alcohol use: Yes Comment: rarely Drug use: No PAST MEDICAL HISTORY Diagnosis Date Autoimmune disease (HCC) Degeneration of intervertebral disc, site unspecified Depression Migraines Mild intermittent asthma Obesity Osteoarthritis of both knees Plantar fasciitis Psoriasis I have confirmed and edited as necessary, the [facility] Review of Systems Constitutional: Negative for chills, fever and malaise/fatigue. HENT: Negative for congestion. Respiratory: Negative for cough. Gastrointestinal: Positive for abdominal pain and diarrhea. Negative for constipation, nausea and vomiting. Genitourinary: Negative for dysuria, flank pain, frequency, hematuria and urgency. Objective Physical Exam Vitals and nursing note reviewed. Constitutional: Appearance: Normal appearance. Pulmonary: Effort: Pulmonary effort is normal. Abdominal: General: Bowel sounds are normal. There is no abdominal bruit. Palpations: Abdomen is not rigid. There is no mass or pulsatile mass. Tenderness: There is abdominal tenderness. There is right CVA tenderness and guarding. There is no rebound. Positive signs include McBurney's sign. Negative signs include Navarro's sign. Skin: General: Skin is warm and dry. Neurological: Mental Status: She is alert and oriented to person, place, and time. Psychiatric: Mood and Affect: Affect normal. Abdomen difficult to assess due to body habitus /ASSESSMENT/PLAN: 1. Abdominal pain, unspecified abdominal location - ICD9: 789.00, ICD10: R10.9 Possible kidney stone, appendicitis Due to nature of patient's complaint and lack of investigative tools available at [facility], recommend patient be seen at nearest ED for further work up, patient will go to [facility] ED - Diagnosis and treatment plan were discussed and questions were answered to the patient's satisfaction. Pt acknowledged understanding of concepts and follow up plan. Specific signs and symptoms that would indicate the need for higher level of care were discussed in detail warranting prompt ER evaluation. Starr Ram APRN.FATEMEH documented in this encounter [place] 06-24-2021 Miscellaneous Notes Protocol recommends see provider in 4 hours. No appts. Patient agreeable to for evaluation. Reason for Disposition [1] MILD-MODERATE pain AND [2] constant AND [3] present > 2 hours Answer Assessment - Initial Assessment Questions 1. LOCATION: Right side abdominal cramping lower area, right side to middle of abdomen. 2. RADIATION: Right side to center of lower abdomen. 3. ONSET: Yesterday. 4. SUDDEN: Sudden yesterday after got out of shower. 5. PATTERN Pain in right side is constant, cramping comes and goes. 6. SEVERITY: Right side 4/10 ache, worse with movement. Cramping 6/10 after eating food. Lasts maybe 5 min. 7. RECURRENT SYMPTOM: No 8. CAUSE: No clue. Has not eaten in restaurant. 9. RELIEVING/AGGRAVATING FACTORS Food and movement make it worse. Laying on side, laying still makes it better. 10. OTHER SYMPTOMS Diarrhea since yesterday. Nausea. No problems urinating. Does not have a gallbladder. Does have appendix. Covid test last night was negative. 11. : No. Protocols used: ABDOMINAL PAIN - [id number] documented in this encounter [place] 06-18-2021 History of Present illness Narrative Images from the original note were not included. BMI Obesity Medicine Follow-Up Note June 18, 2021 Patient Summary: is 40 year old female who presents for follow-up evaluation of her obesity and related complications to the [facility]. Initial program weight: 368 lbs Last visit weight: 423 lbs Assessement/plan from last visit (05/21/21): Raul Fleming is a 40 year old female with Class III obesity who presents today for a medical evaluation in preparation for bariatric surgery. The patient needs to reach a preop weight of approximately 390-400 pounds. The plan is to initiate a partial replacement program of 1300 delicia/day, begin phentermine 37.5 mg daily, continue regular activity. She has a follow-up with a dietitian tomorrow. Patient has been successful with the personalized nutrition and physical activity plan we discussed last visit. The patient will need a 5-week follow-up visit to receive the second prescription of phentermine. She has been on Redux or Fen/Phen in the past due to her total hypertension use. The patient will also be given vitamin D3 2000 international units daily. HPI:Since last visit she has lost about 10 lbs as a result of smaller meals, no desire to eat, and has more energy. The ultimate goal set by the surgeon and the dietitian is to reach a weight of 100 400 pounds that she can eventually proceed with the gastric bypass versus a sleeve. Anti-obesity medication: Phentermine. 37.5 mg, Start date: 05/21/21, Starting weight: 423 lbs Benefit: see above Adverse effects: none Dietary changes: Has been eating smaller meals, no snacking between meals, and has less desire to complete a meal. Exercise: She has been using an [employer], [employer] boxing program Stress: stable Sleep: no insomnia, snoring, or SDB. Weight graph: PAST MEDICAL HISTORY Diagnosis Date Autoimmune disease (HCC) Degeneration of intervertebral disc, site unspecified Depression Migraines Mild intermittent asthma Obesity Osteoarthritis of both knees Plantar fasciitis Psoriasis Current Outpatient Medications Medication Sig Dispense Refill omeprazole (PRILOSEC) 40 mg capsule Take 1 capsule by mouth twice daily. 60 capsule 0 Phentermine HCl 37.5 mg tablet Take 1 tablet by mouth once daily for 30 days. 30 tablet 0 fluticasone (FLOVENT HFA) 110 mcg/actuation inhaler Inhale 2 Puffs as instructed twice daily. 1 Inhaler 5 SUMAtriptan (IMITREX) 100 mg tablet Take 1 tablet by mouth as needed. START AT ONSET OF HEADACHE. MAY REPEAT DOSE AFTER 2 HOURS. 9 tablet 5 CALCIUM CITRATE ORAL Take by mouth. multivit-min/ferrous fumarate (MULTI VITAMIN ORAL) Take by mouth. loratadine (CLARITIN) 10 mg tablet Take 1 tablet by mouth once daily as needed. 90 tablet 3 nabumetone (RELAFEN) 500 mg tablet Take 500 mg by mouth twice daily. TAKE WITH FOOD. ammonium lactate (AMLACTIN) 12 % lotion apply to rash 2-3 times a day as needed 1 Bottle 4 diazePAM (VALIUM) 10 mg tablet Take by mouth q 8 HR. (Patient not taking: Reported on 05/21/2021) traMADol (ULTRAM) 50 mg tablet Tramadol Active 50 MG EVERY 4 HOURS NEEDED 14 3 December 12, 2018 12:36am (Patient not taking: Reported on 05/21/2021) albuterol (PROVENTIL) 2.5 mg /3 mL (0.083 %) nebulizer solution Albuterol Aerosols Active 2.5 MG EVERY 4 HOURS WHILE AWAKE December 04, 2018 8:47pm (Patient not taking: Reported on 05/21/2021) pregabalin (LYRICA) 75 mg capsule Take 1 capsule by mouth twice daily for 30 days. 60 capsule 5 albuterol (PROVENTIL) 2.5 mg /3 mL (0.083 %) nebulizer solution Use 3 mL via nebulizer every 4 hours as needed for wheezing/shortness of breath. (Patient not taking: Reported on 05/21/2021 ) 36 mL 1 albuterol HFA (PROAIR HFA) 90 mcg/actuation inhaler Inhale 2 Puffs as instructed every 4 hours as needed. (Patient not taking: Reported on 05/21/2021 ) 18 g 0 benzonatate (TESSALON PERLE) 100 mg capsule Take 1-2 capsules tid prn, no more than 6 in 24 hours. (Patient not taking: Reported on 05/21/2021 ) 30 capsule 0 cyclobenzaprine (FLEXERIL) 10 mg tablet Take 10 mg by mouth. (Patient not taking: Reported on 06/18/2021 ) tiZANidine (ZANAFLEX) 4 mg tablet Take 1 tablet by mouth every 8 hours as needed. (Patient not taking: Reported on 05/21/2021 ) 20 tablet 0 No current facility-administered medications for this visit. Physical exam:BP 140/76 Pulse 100 Ht 168.9 cm (5' 6.5 ) Wt (!) 187.3 kg (413 lb) LMP 05/08/2021 BMI 65.66 kg/m General Appearance: Well appearing, alert, in no acute distress, well-hydrated, well nourished. Respiratory: Lungs clear to auscultation. No wheezing, rhonchi, rales. Heart: RRR without murmur, gallop, or rubs. No ectopy Abdomen: Normal abdominal exam, Abdomen soft, non-tender. Bowel sounds normal. No masses, organomegaly Skin: exposed skin is warm, dry, intact Assessment/Plan: Raul Fleming is a 40 year old female with Class III obesity who presents today for supervised weight loss follow-up and to finalize/estimate cardiopulmonary risk before proceeding with bariatric surgery. Total weight loss of 10 pounds since she started the phentermine last month. She was given a prescription and a refill (#2) and will schedule a follow-up visit in 5 weeks. Patient has been successful with the personalized nutrition and physical activity plan we discussed last visit From a cardiopulmonary standpoint, the patient is at an acceptable risk for bariatric surgery after review of recent EKG, echocardiogram, chest x-ray, and labs. Follow-up visit for management of above interventions in 4-5 weeks. I spent a total of 35 minutes on the date of the service which included [id number] patient care, completing clinical documentation, obtaining and/or reviewing separately obtained history, performing a medically appropriate examination, counseling and educating the patient/family/caregiver and ordering medications, tests, or procedures. Medical Decision Making Alison Jules DO documented in this encounter [place] 06-17-2021 Miscellaneous Notes Patient called office. Said she is having trouble scheduling her 5 week appointment, and would like a call back. Her phone number is [phone]. 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 Start the partial liquid protein plan as outlined below: Breakfast: Protein shake and fruit Lunch: Protein shake and fruit Dinner: 4 oz lean meat/fish, vegetables, fruit and up to 1c starch/whole grains Snack: < 150 calories 1x per day (should contain protein) 2. Fluids: At least 64 oz per day no carbonation, no caffeine, no calories 3. Continue to take 2 Bariatric Advantage Soft Chews with additional 1200-1500mg calcium citrate and 45mg iron: https://www.bariatricadvantage.com/ 4. Exercise: Minimum 30 minutes 5-6x per week 5. Practice these mindful eating techniques: Eat slowly by taking small bites and chewing thoroughly Eat protein first, vegetables second, and starches last Separate fluids from foods for 30 minutes before and after each meal/snack Protein Goal: 92 gm per day Weight Loss Goal: 390-[address] Schmitz Follow Up in 1 month; call [phone] to schedule a group nutrition appointment and follow up with Dr. Jules documented in this encounter [place] 05-22-2021 History of Present illness Narrative The [place] [facility]: Virtual Consult Re-assessment This visit was performed virtually due to the COVID-19 epidemic as an effort to protect patients and minimize exposure. Consent from patient received to conduct visit virtually. This Team Access Model visit is a virtual encounter. It required patient-provider interaction for the medical decision making as documented below. PROGRESS: Nutrition Intervention (date of last encounter A Emmanuel 02/26/21): 1. Continue to not skip meals. MET 2. Use protein shake 1-2x per day to replace any skipped meals or for breakfast MET 3. Use the Healthy Plate Method of portion control for lunch and/or dinner MET 4 oz lean meat (fish, chicken, pork tenderloin, turkey, seafood, eggs/cheese 1/2 plate non starchy vegetables (salad, greens, cabbage, spinach, brussels sprouts, broccoli, carrots, celery, peppers, green beans, cauliflower) 1 cup starch/starchy vegetables (corn, peas, anthony beans, winter squash, sweet potato, rice, pasta, potato) 4. Resume physical activity with a goal of 150 min of aerobic exercise per week. Include 2-3 days of strength exercises 2-3 times/week. Look into water aerobics in your area. Try these low imp[act exercises at home as well: IN PROGRESS [employer] workout database: https://Wintermute/ Chair or standing Team Body Project https://www.ACS Globalube.com/watch?v=e8op MY-SoZc Chair exercise PromiseUP https://www.[employer]/resource /videos-detail.asp?video=38 Beth López Easy walk in place 15 min https://www.ACS Globalube.com/watch?v=njeZ 29umqVE Body Project 30 min https://youCoopkanics.be/J-YscW5NE-7 Beth López Higher intensity walk 30 min https://www.ACS Globalube.com/watch?v=cvEJ 4SIm7GP 5. Drink 64 ounces per day water. Fluids should follow these guidelines: No carbonation, no caffeine, no calories, no alcohol. Separate foods and fluids by 20 minutes IN PROGRESS 6. Research and choose these vitamin options for use 3 weeks post operatively: IN PROGRESS - Bariatric Fusion: 4 Complete Chewable Multivitamins per day (2 in the AM, 2 in the PM) www.bariatricfusion.[employer] - [employer]: 1 Bariatric Multivitamin and Calcium Citrate (total of 9924-9859 mg/day) * take calcium citrate separately from Multivitamin with iron at least 2 hours apart and 4 hours apart from additional calcium www.CopaCastarenoiQVCloud.[employer] [facility] - Bariatric Choice: 4 Complete Multivitamins (chewables) per day Www.bariatricchoice.[employer] - Bariatric Advantage: 2 Multivitamins and 3 Calcium Citrate Chewables per day * take calcium citrate separately from Multivitamin with iron at least 2 hours apart and 4 hours apart from additional calcium Www.bariatricadCamino Realage.[employer] Protein Goal: 92 gm per day NOT MET Weight Loss Goal: 390-[address] Schmitz NOT MET CHANGES IN TREATMENT: Patient met goal(s): Partially Actions to implement interventions: Breakfast: premier protein shake (30 gm pro) and fruit Snack: 1 slice avocado toast on rye OR none Lunch: salad with 1oz cheese, vegetables, 2 slices lunch meat (14 gm pro), 1 egg (7 gm pro), croutons, and raspberry vinegarette Snack: none Dinner: salad salad with 1oz cheese, vegetables, 2 eggs (14 gm pro), croutons, and low delicia kacey cheese dressing, AND 1/2 sloppy madiha made with 1.5oz lean beef (10 gm pro) Snack: none Fluids:48oz water and sometimes 20oz gatorade zero OR body armor lyte Vitamins/Supplements: Bariatric Advantage 2 soft chews and 1500mg calcium daily Physical Activity: PostedIn Workout games daily for 20 minutes CLINICAL IMPRESSIONS: good Allergies: ALLERGIES Allergen Reactions Environmental [Othe* Gabapentin Other: See Comments Prednisone Mental Status Change Topamax [Topiramate] Other: See Comments anxiety Medications: Current Outpatient Medications Medication Sig Dispense Refill diazePAM (VALIUM) 10 mg tablet Take by mouth q 8 HR. (Patient not taking: Reported on 05/21/2021) traMADol (ULTRAM) 50 mg tablet Tramadol Active 50 MG EVERY 4 HOURS NEEDED 14 December 12, 2018 12:36am (Patient not taking: Reported on 05/21/2021) albuterol (PROVENTIL) 2.5 mg /3 mL (0.083 %) nebulizer solution Albuterol Aerosols Active 2.5 MG EVERY 4 HOURS WHILE AWAKE December 04, 2018 8:47pm (Patient not taking: Reported on 05/21/2021) Phentermine HCl 37.5 mg tablet Take 1 tablet by mouth once daily for 30 days. 30 tablet 0 omeprazole (PRILOSEC) 40 mg capsule Take 1 capsule by mouth twice daily. 60 capsule 0 pregabalin (LYRICA) 75 mg capsule Take 1 capsule by mouth twice daily for 30 days. 60 capsule 5 albuterol (PROVENTIL) 2.5 mg /3 mL (0.083 %) nebulizer solution Use 3 mL via nebulizer every 4 hours as needed for wheezing/shortness of breath. (Patient not taking: Reported on 05/21/2021 ) 36 mL 1 fluticasone (FLOVENT HFA) 110 mcg/actuation inhaler Inhale 2 Puffs as instructed twice daily. (Patient not taking: Reported on 05/21/2021 ) 1 Inhaler 5 albuterol HFA (PROAIR HFA) 90 mcg/actuation inhaler Inhale 2 Puffs as instructed every 4 hours as needed. (Patient not taking: Reported on 05/21/2021 ) 18 g 0 benzonatate (TESSALON PERLE) 100 mg capsule Take 1-2 capsules tid prn, no more than 6 in 24 hours. (Patient not taking: Reported on 05/21/2021 ) 30 capsule 0 SUMAtriptan (IMITREX) 100 mg tablet Take 1 tablet by mouth as needed. START AT ONSET OF HEADACHE. MAY REPEAT DOSE AFTER 2 HOURS. 9 tablet 5 cyclobenzaprine (FLEXERIL) 10 mg tablet Take 10 mg by mouth. CALCIUM CITRATE ORAL Take by mouth. multivit-min/ferrous fumarate (MULTI VITAMIN ORAL) Take by mouth. loratadine (CLARITIN) 10 mg tablet Take 1 tablet by mouth once daily as needed. 90 tablet 3 nabumetone (RELAFEN) 500 mg tablet Take 500 mg by mouth twice daily. TAKE WITH FOOD. tiZANidine (ZANAFLEX) 4 mg tablet Take 1 tablet by mouth every 8 hours as needed. (Patient not taking: Reported on 05/21/2021 ) 20 tablet 0 ammonium lactate (AMLACTIN) 12 % lotion apply to rash 2-3 times a day as needed 1 Bottle 4 No current facility-administered medications for this visit. PAST MEDICAL HISTORY Diagnosis Date Autoimmune disease (HCC) Degeneration of intervertebral disc, site unspecified Depression Migraines Mild intermittent asthma Obesity Osteoarthritis of both knees Plantar fasciitis Psoriasis PAST SURGICAL HISTORY Procedure Laterality Date ADENOIDECTOMY PRIMARY <AGE 11 Adenoidectomy DELIVERY ONLY , low cervical LAPAROSCOPY SURG CHOLECYSTECTOMY 2013 PAST SURGICAL HISTORY OF Bilateral arthoscopy to ankles, scar tissue removal and tendon lengthening TONSILLECTOMY PRIMARY/SECONDARY <AGE 11 Tonsillectomy ANTHROPOMETRICS Height per patient: 69 Weight per patient: 423# Most recent height and weight per EPIC Height: Last 1 Encounter Ht Readings: Date: Ht: 05/21/2021 173.2 cm (5' 8.18 ) Weight: Last 1 Encounter Wt Readings: Date: Wt: 05/21/2021 191.9 kg (423 lb) Body mass index is 62.47 kg/m . Educational materials provided: Healthy Snacks Patient presents for follow up nutrition Virtual Consult. Patient is currently preparing to undergo bariatric surgery, interested in RYGB with Dr. Schmitz. Since last assessment, weight has increased by 13 lbs. Patient believes she has developed lupus. She is currently seeking testing to confirm. She was recently started on phentermine, and plans to pickling solution maker Rx [facility]. Diet recall reveals consistent meal pattern with regular meals and snacks. Patient uses protein shake to replace breakfast and healthy plate model at meals as recommended. Protein intake is inadequate (~82% of recommendations) due to higher protein needs. Fluid intake is adequate with water and zero calorie sports drinks as primary choices. She has increased her exercise, but does not meet the recommended 150+ minutes weekly. She plans on increasing her time of her workouts. Patient has started taking bariatric advantage soft chews with additional calcium, but does not meet recommendations for iron dosage. She agrees to begin practicing fluid from foods. Patient meets the National Institutes of Health guidelines for weight loss surgery and has Issue Medicaid insurance and therefore may be required to complete 0 months of Nutrition Intervention for clearance for surgery. This is her 2nd visit. Patient does meet National Institutes of Health guidelines for weight loss surgery, however would like to see more of an effort in making dietary changes before giving clearance. I anticipate at least 1-2 nutritional follow-up visits prior to clearance for surgery. Nutrition Diagnosis: Overweight/obesity, related to, food/nutrition - related knowledge deficit, as evidenced by BMI above normative standard for age and gender. Nutrition Intervention: Modify type and amount of food consumed for meals and snacks: 1. Start the partial liquid protein plan as outlined below: Breakfast: Protein shake and fruit Lunch: Protein shake and fruit Dinner: 4 oz lean meat/fish, vegetables, fruit and up to 1c starch/whole grains Snack: < 150 calories 1x per day (should contain protein) 2. Fluids: At least 64 oz per day no carbonation, no caffeine, no calories 3. Continue to take 2 Bariatric Advantage Soft Chews with additional 1200-1500mg calcium citrate and 45mg iron: [email or web address] 4. Exercise: Minimum 30 minutes 5-6x per week 5. Practice these mindful eating techniques: Eat slowly by taking small bites and chewing thoroughly Eat protein first, vegetables second, and starches last Separate fluids from foods for 30 minutes before and after each meal/snack Protein Goal: 92 gm per day Weight Loss Goal: 390-[address] Schmitz Nutrition Monitoring & Evaluation: 1-2 pound weight loss per week Criteria: weight check and patient report Need for Follow up: 1 month MNT Billing Type: Re-assess/15 min 2 units Signed by: Daniel Benitez RD documented in this encounter [place] 05-21-2021 History of Present illness Narrative Images from the original note were not included. BMI Obesity Medicine Follow-Up Note May 21, 2021 Patient Summary: is 40 year old female who presents for follow-up evaluation of her obesity and related complications to the [facility]. The patient is here today for a medical visit in preparation for bariatric surgery. She was recently informed by the bariatric surgeon that she needs to reach weight between 390 to 400 pounds before proceeding with bariatric surgery. Initial program weight: 368 lbs Last visit weight: 412 lbs Assessement/plan from last visit (02/13/21): Plan: -Labs, EKG, chest x-ray ordered today May proceed with bariatric surgery if the baseline ECG normal. No further noninvasive cardiac testing needed as the patient has no intermediate clinical risk factors, (IDDM, renal failure, CHF, CAD, and CVA) and has a normal functional capacity. HPI:Since last visit she is following a low carb diet, ie protein drink for breakfast, salad for lunch and dinner with eggs and vegetables. She was told by the bariatric surgeon that she needs to reach a preoperative weight of < 400 lbs. Recent electrocardiogram revealed left ventricular hypertrophy which is unchanged from previous EKG June 2019. At that time an echocardiogram did not reveal any evidence of left ventricular hypertrophy. Recent labs reveal a low vitamin D level. Anti-obesity medication: none Dietary changes: Currently has a protein drink for breakfast and a salad for lunch and dinner. She has an appointment with a dietitian tomorrow. Exercise: Currently using [employer] game which gives her a good workout. Stress: None Sleep: Denies insomnia Weight graph: PAST MEDICAL HISTORY Diagnosis Date Autoimmune disease (HCC) Degeneration of intervertebral disc, site unspecified Depression Migraines Mild intermittent asthma Obesity Osteoarthritis of both knees Plantar fasciitis Psoriasis Current Outpatient Medications Medication Sig Dispense Refill omeprazole (PRILOSEC) 40 mg capsule Take 1 capsule by mouth twice daily. 60 capsule 0 pregabalin (LYRICA) 75 mg capsule Take 1 capsule by mouth twice daily for 30 days. 60 capsule 5 SUMAtriptan (IMITREX) 100 mg tablet Take 1 tablet by mouth as needed. START AT ONSET OF HEADACHE. MAY REPEAT DOSE AFTER 2 HOURS. 9 tablet 5 cyclobenzaprine (FLEXERIL) 10 mg tablet Take 10 mg by mouth. CALCIUM CITRATE ORAL Take by mouth. multivit-min/ferrous fumarate (MULTI VITAMIN ORAL) Take by mouth. loratadine (CLARITIN) 10 mg tablet Take 1 tablet by mouth once daily as needed. 90 tablet 3 nabumetone (RELAFEN) 500 mg tablet Take 500 mg by mouth twice daily. TAKE WITH FOOD. ammonium lactate (AMLACTIN) 12 % lotion apply to rash 2-3 times a day as needed 1 Bottle 4 diazePAM (VALIUM) 10 mg tablet Take by mouth q 8 HR. (Patient not taking: Reported on 05/21/2021) traMADol (ULTRAM) 50 mg tablet Tramadol Active 50 MG EVERY 4 HOURS NEEDED 14 3 December 12, 2018 12:36am (Patient not taking: Reported on 05/21/2021) albuterol (PROVENTIL) 2.5 mg /3 mL (0.083 %) nebulizer solution Albuterol Aerosols Active 2.5 MG EVERY 4 HOURS WHILE AWAKE December 04, 2018 8:47pm (Patient not taking: Reported on 05/21/2021) albuterol (PROVENTIL) 2.5 mg /3 mL (0.083 %) nebulizer solution Use 3 mL via nebulizer every 4 hours as needed for wheezing/shortness of breath. (Patient not taking: Reported on 05/21/2021 ) 36 mL 1 fluticasone (FLOVENT HFA) 110 mcg/actuation inhaler Inhale 2 Puffs as instructed twice daily. (Patient not taking: Reported on 05/21/2021 ) 1 Inhaler 5 albuterol HFA (PROAIR HFA) 90 mcg/actuation inhaler Inhale 2 Puffs as instructed every 4 hours as needed. (Patient not taking: Reported on 05/21/2021 ) 18 g 0 benzonatate (TESSALON PERLE) 100 mg capsule Take 1-2 capsules tid prn, no more than 6 in 24 hours. (Patient not taking: Reported on 05/21/2021 ) 30 capsule 0 tiZANidine (ZANAFLEX) 4 mg tablet Take 1 tablet by mouth every 8 hours as needed. (Patient not taking: Reported on 05/21/2021 ) 20 tablet 0 No current facility-administered medications for this visit. Physical exam:BP 138/84 Pulse 86 Ht 173.2 cm (5' 8.18 ) Wt (!) 191.9 kg (423 lb) LMP 05/08/2021 BMI 63.98 kg/m General Appearance: Well appearing, alert, in no acute distress, well-hydrated, well nourished. Respiratory: Lungs clear to auscultation. No wheezing, rhonchi, rales. Heart: RRR without murmur, gallop, or rubs. No ectopy Abdomen: Normal abdominal exam, Abdomen soft, non-tender. Bowel sounds normal. No masses, organomegaly Skin: exposed skin is warm, dry, intact Assessment/Plan: Raul Fleming is a 40 year old female with Class III obesity who presents today for a medical evaluation in preparation for bariatric surgery. The patient needs to reach a preop weight of approximately 390-400 pounds. The plan is to initiate a partial replacement program of 1300 delicia/day, begin phentermine 37.5 mg daily, continue regular activity. She has a follow-up with a dietitian tomorrow. Patient has been successful with the personalized nutrition and physical activity plan we discussed last visit. The patient will need a 5-week follow-up visit to receive the second prescription of phentermine. She has been on Redux or Fen/Phen in the past due to her total hypertension use. The patient will also be given vitamin D3 2000 international units daily. Follow-up visit for management of above interventions in 4-5 weeks. I spent a total of 35 minutes on the date of the service which included [id number] patient care, completing clinical documentation, obtaining and/or reviewing separately obtained history, performing a medically appropriate examination, counseling and educating the patient/family/caregiver and ordering medications, tests, or procedures. Medical Decision Making Alison Jules DO documented in this encounter [place] documented as of this encounter (statuses as of 05/21/2021) [facility] History of Past illness Narrative* Problem Noted Date Resolved Date Morbid obesity 12/07/2017 03/19/2018 Morbid (severe) obesity due to excess calories 0 04/28/2017 03/19/2018 Pain in joint, lower leg 12/10/2005 019 Unspecified asthma(493.90) 05/31 Overview: Had it as a teenager, she spent 3 days in the hospital at the age of 18. Never tubed. She was never on steroid inhalation. Whenever she has bronchitis she gets an asthma flare up. Last Assessment & Plan: Had it as a teenager, she spent 3 days in the hospital at the age of 18. Never tubed. She was never on steroid inhalation. Whenever she has bronchitis she gets an asthma flare up. She quit smoking a year ago as it makes it worse. documented as of this encounter (statuses as of 05/22/2021) [facility] History of Past illness Narrative* Problem Noted Date Resolved Date Morbid obesity 12/07/2017 03/19/2018 Morbid (severe) obesity due to excess calories 0 04/28/2017 03/19/2018 Pain in joint, lower leg 12/10/2005 019 Unspecified asthma(493.90) 05/31 Overview: Had it as a teenager, she spent 3 days in the hospital at the age of 18. Never tubed. She was never on steroid inhalation. Whenever she has bronchitis she gets an asthma flare up. Last Assessment & Plan: Had it as a teenager, she spent 3 days in the hospital at the age of 18. Never tubed. She was never on steroid inhalation. Whenever she has bronchitis she gets an asthma flare up. She quit smoking a year ago as it makes it worse. documented as of this encounter (statuses as of 06/17/2021) [facility] History of Past illness Narrative* Problem Noted Date Resolved Date Morbid obesity 12/07/2017 03/19/2018 Morbid (severe) obesity due to excess calories 0 04/28/2017 03/19/2018 Pain in joint, lower leg 12/10/2005 019 Unspecified asthma(493.90) 05/31 Overview: Had it as a teenager, she spent 3 days in the hospital at the age of 18. Never tubed. She was never on steroid inhalation. Whenever she has bronchitis she gets an asthma flare up. Last Assessment & Plan: Had it as a teenager, she spent 3 days in the hospital at the age of 18. Never tubed. She was never on steroid inhalation. Whenever she has bronchitis she gets an asthma flare up. She quit smoking a year ago as it makes it worse. documented as of this encounter (statuses as of 06/18/2021) [facility] History of Past illness Narrative* Problem Noted Date Resolved Date Morbid obesity 12/07/2017 03/19/2018 Morbid (severe) obesity due to excess calories 0 04/28/2017 03/19/2018 Pain in joint, lower leg 12/10/2005 019 Unspecified asthma(493.90) 05/31 Overview: Had it as a teenager, she spent 3 days in the hospital at the age of 18. Never tubed. She was never on steroid inhalation. Whenever she has bronchitis she gets an asthma flare up. Last Assessment & Plan: Had it as a teenager, she spent 3 days in the hospital at the age of 18. Never tubed. She was never on steroid inhalation. Whenever she has bronchitis she gets an asthma flare up. She quit smoking a year ago as it makes it worse. documented as of this encounter (statuses as of 06/18/2021) [facility] History of Past illness Narrative* Problem Noted Date Resolved Date Morbid obesity 12/07/2017 03/19/2018 Morbid (severe) obesity due to excess calories 0 04/28/2017 03/19/2018 Pain in joint, lower leg 12/10/2005 019 Unspecified asthma(493.90) 05/31 Overview: Had it as a teenager, she spent 3 days in the hospital at the age of 18. Never tubed. She was never on steroid inhalation. Whenever she has bronchitis she gets an asthma flare up. Last Assessment & Plan: Had it as a teenager, she spent 3 days in the hospital at the age of 18. Never tubed. She was never on steroid inhalation. Whenever she has bronchitis she gets an asthma flare up. She quit smoking a year ago as it makes it worse. documented as of this encounter (statuses as of 06/24/2021) [facility] History of Past illness Narrative* Problem Noted Date Resolved Date Morbid obesity 12/07/2017 03/19/2018 Morbid (severe) obesity due to excess calories 0 04/28/2017 03/19/2018 Pain in joint, lower leg 12/10/2005 019 Unspecified asthma(493.90) 05/31 Overview: Had it as a teenager, she spent 3 days in the hospital at the age of 18. Never tubed. She was never on steroid inhalation. Whenever she has bronchitis she gets an asthma flare up. Last Assessment & Plan: Had it as a teenager, she spent 3 days in the hospital at the age of 18. Never tubed. She was never on steroid inhalation. Whenever she has bronchitis she gets an asthma flare up. She quit smoking a year ago as it makes it worse. documented as of this encounter (statuses as of 06/26/2021) [facility] History of Past illness Narrative* Problem Noted Date Resolved Date Morbid obesity 12/07/2017 03/19/2018 Morbid (severe) obesity due to excess calories 0 04/28/2017 03/19/2018 Pain in joint, lower leg 12/10/2005 019 Unspecified asthma(493.90) 05/31 Overview: Had it as a teenager, she spent 3 days in the hospital at the age of 18. Never tubed. She was never on steroid inhalation. Whenever she has bronchitis she gets an asthma flare up. Last Assessment & Plan: Had it as a teenager, she spent 3 days in the hospital at the age of 18. Never tubed. She was never on steroid inhalation. Whenever she has bronchitis she gets an asthma flare up. She quit smoking a year ago as it makes it worse. documented as of this encounter (statuses as of 07/15/2021) [facility] History of Past illness Narrative* Problem Noted Date Resolved Date Morbid obesity 12/07/2017 03/19/2018 Morbid (severe) obesity due to excess calories 0 04/28/2017 03/19/2018 Pain in joint, lower leg 12/10/2005 019 Unspecified asthma(493.90) 05/31 Overview: Had it as a teenager, she spent 3 days in the hospital at the age of 18. Never tubed. She was never on steroid inhalation. Whenever she has bronchitis she gets an asthma flare up. Last Assessment & Plan: Had it as a teenager, she spent 3 days in the hospital at the age of 18. Never tubed. She was never on steroid inhalation. Whenever she has bronchitis she gets an asthma flare up. She quit smoking a year ago as it makes it worse. documented as of this encounter (statuses as of 07/25/2021) [facility] History of Past illness Narrative* Problem Noted Date Resolved Date Morbid obesity 12/07/2017 03/19/2018 Morbid (severe) obesity due to excess calories 0 04/28/2017 03/19/2018 Pain in joint, lower leg 12/10/2005 019 Unspecified asthma(493.90) 05/31 Overview: Had it as a teenager, she spent 3 days in the hospital at the age of 18. Never tubed. She was never on steroid inhalation. Whenever she has bronchitis she gets an asthma flare up. Last Assessment & Plan: Had it as a teenager, she spent 3 days in the hospital at the age of 18. Never tubed. She was never on steroid inhalation. Whenever she has bronchitis she gets an asthma flare up. She quit smoking a year ago as it makes it worse. documented as of this encounter (statuses as of 07/30/2021) [facility] History of Past illness Narrative* Problem Noted Date Resolved Date Morbid obesity 12/07/2017 03/19/2018 Morbid (severe) obesity due to excess calories 0 04/28/2017 03/19/2018 Pain in joint, lower leg 12/10/2005 019 Unspecified asthma(493.90) 05/31 Overview: Had it as a teenager, she spent 3 days in the hospital at the age of 18. Never tubed. She was never on steroid inhalation. Whenever she has bronchitis she gets an asthma flare up. Last Assessment & Plan: Had it as a teenager, she spent 3 days in the hospital at the age of 18. Never tubed. She was never on steroid inhalation. Whenever she has bronchitis she gets an asthma flare up. She quit smoking a year ago as it makes it worse. documented as of this encounter (statuses as of 07/31/2021) [facility] History of Past illness Narrative* Problem Noted Date Resolved Date Morbid obesity 12/07/2017 03/19/2018 Morbid (severe) obesity due to excess calories 0 04/28/2017 03/19/2018 Pain in joint, lower leg 12/10/2005 019 Unspecified asthma(493.90) 05/31 Overview: Had it as a teenager, she spent 3 days in the hospital at the age of 18. Never tubed. She was never on steroid inhalation. Whenever she has bronchitis she gets an asthma flare up. Last Assessment & Plan: Had it as a teenager, she spent 3 days in the hospital at the age of 18. Never tubed. She was never on steroid inhalation. Whenever she has bronchitis she gets an asthma flare up. She quit smoking a year ago as it makes it worse. documented as of this encounter (statuses as of 08/06/2021) [facility] History of Past illness Narrative* Problem Noted Date Resolved Date Morbid obesity 12/07/2017 03/19/2018 Morbid (severe) obesity due to excess calories 0 04/28/2017 03/19/2018 Pain in joint, lower leg 12/10/2005 019 Unspecified asthma(493.90) 05/31 Overview: Had it as a teenager, she spent 3 days in the hospital at the age of 18. Never tubed. She was never on steroid inhalation. Whenever she has bronchitis she gets an asthma flare up. Last Assessment & Plan: Had it as a teenager, she spent 3 days in the hospital at the age of 18. Never tubed. She was never on steroid inhalation. Whenever she has bronchitis she gets an asthma flare up. She quit smoking a year ago as it makes it worse. documented as of this encounter (statuses as of 08/14/2021) [facility] History of Past illness Narrative* Problem Noted Date Resolved Date Morbid obesity 12/07/2017 03/19/2018 Morbid (severe) obesity due to excess calories 0 04/28/2017 03/19/2018 Pain in joint, lower leg 12/10/2005 019 Unspecified asthma(493.90) 05/31 Overview: Had it as a teenager, she spent 3 days in the hospital at the age of 18. Never tubed. She was never on steroid inhalation. Whenever she has bronchitis she gets an asthma flare up. Last Assessment & Plan: Had it as a teenager, she spent 3 days in the hospital at the age of 18. Never tubed. She was never on steroid inhalation. Whenever she has bronchitis she gets an asthma flare up. She quit smoking a year ago as it makes it worse. documented as of this encounter (statuses as of 08/30/2021) [facility] History of Past illness Narrative* Problem Noted Date Resolved Date Morbid obesity 12/07/2017 03/19/2018 Morbid (severe) obesity due to excess calories 0 04/28/2017 03/19/2018 Pain in joint, lower leg 12/10/2005 019 Unspecified asthma(493.90) 05/31 Overview: Had it as a teenager, she spent 3 days in the hospital at the age of 18. Never tubed. She was never on steroid inhalation. Whenever she has bronchitis she gets an asthma flare up. Last Assessment & Plan: Had it as a teenager, she spent 3 days in the hospital at the age of 18. Never tubed. She was never on steroid inhalation. Whenever she has bronchitis she gets an asthma flare up. She quit smoking a year ago as it makes it worse. documented as of this encounter (statuses as of 09/03/2021) [facility] History of Past illness Narrative* Problem Noted Date Resolved Date Morbid obesity 12/07/2017 03/19/2018 Morbid (severe) obesity due to excess calories 0 04/28/2017 03/19/2018 Pain in joint, lower leg 12/10/2005 019 Unspecified asthma(493.90) 05/31 Overview: Had it as a teenager, she spent 3 days in the hospital at the age of 18. Never tubed. She was never on steroid inhalation. Whenever she has bronchitis she gets an asthma flare up. Last Assessment & Plan: Had it as a teenager, she spent 3 days in the hospital at the age of 18. Never tubed. She was never on steroid inhalation. Whenever she has bronchitis she gets an asthma flare up. She quit smoking a year ago as it makes it worse. documented as of this encounter (statuses as of 09/03/2021) [facility] History of Past illness Narrative* Problem Noted Date Resolved Date Morbid obesity 12/07/2017 03/19/2018 Morbid (severe) obesity due to excess calories 0 04/28/2017 03/19/2018 Pain in joint, lower leg 12/10/2005 019 Unspecified asthma(493.90) 05/31 Overview: Had it as a teenager, she spent 3 days in the hospital at the age of 18. Never tubed. She was never on steroid inhalation. Whenever she has bronchitis she gets an asthma flare up. Last Assessment & Plan: Had it as a teenager, she spent 3 days in the hospital at the age of 18. Never tubed. She was never on steroid inhalation. Whenever she has bronchitis she gets an asthma flare up. She quit smoking a year ago as it makes it worse. documented as of this encounter (statuses as of 09/13/2021) [facility] History of Past illness Narrative* Problem Noted Date Resolved Date Morbid obesity 12/07/2017 03/19/2018 Morbid (severe) obesity due to excess calories 0 04/28/2017 03/19/2018 Pain in joint, lower leg 12/10/2005 019 Unspecified asthma(493.90) 05/31 Overview: Had it as a teenager, she spent 3 days in the hospital at the age of 18. Never tubed. She was never on steroid inhalation. Whenever she has bronchitis she gets an asthma flare up. Last Assessment & Plan: Had it as a teenager, she spent 3 days in the hospital at the age of 18. Never tubed. She was never on steroid inhalation. Whenever she has bronchitis she gets an asthma flare up. She quit smoking a year ago as it makes it worse. documented as of this encounter (statuses as of 09/17/2021) [facility] History of Past illness Narrative* Problem Noted Date Resolved Date Morbid obesity 12/07/2017 03/19/2018 Morbid (severe) obesity due to excess calories 0 04/28/2017 03/19/2018 Pain in joint, lower leg 12/10/2005 019 Unspecified asthma(493.90) 05/31 Overview: Had it as a teenager, she spent 3 days in the hospital at the age of 18. Never tubed. She was never on steroid inhalation. Whenever she has bronchitis she gets an asthma flare up. Last Assessment & Plan: Had it as a teenager, she spent 3 days in the hospital at the age of 18. Never tubed. She was never on steroid inhalation. Whenever she has bronchitis she gets an asthma flare up. She quit smoking a year ago as it makes it worse. documented as of this encounter (statuses as of 09/18/2021) [facility] History of Past illness Narrative* Problem Noted Date Resolved Date Morbid obesity 12/07/2017 03/19/2018 Morbid (severe) obesity due to excess calories 0 04/28/2017 03/19/2018 Pain in joint, lower leg 12/10/2005 019 Unspecified asthma(493.90) 05/31 Overview: Had it as a teenager, she spent 3 days in the hospital at the age of 18. Never tubed. She was never on steroid inhalation. Whenever she has bronchitis she gets an asthma flare up. Last Assessment & Plan: Had it as a teenager, she spent 3 days in the hospital at the age of 18. Never tubed. She was never on steroid inhalation. Whenever she has bronchitis she gets an asthma flare up. She quit smoking a year ago as it makes it worse. documented as of this encounter (statuses as of 09/20/2021) [facility] History of Past illness Narrative* Problem Noted Date Resolved Date Morbid obesity 12/07/2017 03/19/2018 Morbid (severe) obesity due to excess calories 0 04/28/2017 03/19/2018 Pain in joint, lower leg 12/10/2005 019 Unspecified asthma(493.90) 05/31 Overview: Had it as a teenager, she spent 3 days in the hospital at the age of 18. Never tubed. She was never on steroid inhalation. Whenever she has bronchitis she gets an asthma flare up. Last Assessment & Plan: Had it as a teenager, she spent 3 days in the hospital at the age of 18. Never tubed. She was never on steroid inhalation. Whenever she has bronchitis she gets an asthma flare up. She quit smoking a year ago as it makes it worse. documented as of this encounter (statuses as of 09/25/2021) [facility] History of Past illness Narrative* Problem Noted Date Resolved Date Morbid obesity 12/07/2017 03/19/2018 Morbid (severe) obesity due to excess calories 0 04/28/2017 03/19/2018 Pain in joint, lower leg 12/10/2005 019 Unspecified asthma(493.90) 05/31 Overview: Had it as a teenager, she spent 3 days in the hospital at the age of 18. Never tubed. She was never on steroid inhalation. Whenever she has bronchitis she gets an asthma flare up. Last Assessment & Plan: Had it as a teenager, she spent 3 days in the hospital at the age of 18. Never tubed. She was never on steroid inhalation. Whenever she has bronchitis she gets an asthma flare up. She quit smoking a year ago as it makes it worse. documented as of this encounter (statuses as of 10/04/2021) [place]-2018 History of Past illness Narrative* Problem Noted Date Resolved Date Morbid obesity 12/07/2017 03/19/2018 Morbid (severe) obesity due to excess calories 0 04/28/2017 03/19/2018 Pain in joint, lower leg 12/10/2005 019 Unspecified asthma(493.90) 05/31 Overview: Had it as a teenager, she spent 3 days in the hospital at the age of 18. Never tubed. She was never on steroid inhalation. Whenever she has bronchitis she gets an asthma flare up. Last Assessment & Plan: Had it as a teenager, she spent 3 days in the hospital at the age of 18. Never tubed. She was never on steroid inhalation. Whenever she has bronchitis she gets an asthma flare up. She quit smoking a year ago as it makes it worse. documented as of this encounter (statuses as of 10/09/2021) [place]2018 History of Past illness Narrative* Problem Noted Date Resolved Date Morbid obesity 12/07/2017 03/19/2018 Morbid (severe) obesity due to excess calories 0 04/28/2017 03/19/2018 Pain in joint, lower leg 12/10/2005 019 Unspecified asthma(493.90) 05/31 Overview: Had it as a teenager, she spent 3 days in the hospital at the age of 18. Never tubed. She was never on steroid inhalation. Whenever she has bronchitis she gets an asthma flare up. Last Assessment & Plan: Had it as a teenager, she spent 3 days in the hospital at the age of 18. Never tubed. She was never on steroid inhalation. Whenever she has bronchitis she gets an asthma flare up. She quit smoking a year ago as it makes it worse. documented as of this encounter (statuses as of 10/09/2021) [place]2018 History of Past illness Narrative* Problem Noted Date Resolved Date Morbid obesity 12/07/2017 03/19/2018 Morbid (severe) obesity due to excess calories 0 04/28/2017 03/19/2018 Pain in joint, lower leg 12/10/2005 019 Unspecified asthma(493.90) 05/31 Overview: Had it as a teenager, she spent 3 days in the hospital at the age of 18. Never tubed. She was never on steroid inhalation. Whenever she has bronchitis she gets an asthma flare up. Last Assessment & Plan: Had it as a teenager, she spent 3 days in the hospital at the age of 18. Never tubed. She was never on steroid inhalation. Whenever she has bronchitis she gets an asthma flare up. She quit smoking a year ago as it makes it worse. documented as of this encounter (statuses as of 10/14/2021) [place]2018 History of Past illness Narrative* Problem Noted Date Resolved Date Morbid obesity 12/07/2017 03/19/2018 Morbid (severe) obesity due to excess calories 0 04/28/2017 03/19/2018 Pain in joint, lower leg 12/10/2005 019 Unspecified asthma(493.90) 05/31 Overview: Had it as a teenager, she spent 3 days in the hospital at the age of 18. Never tubed. She was never on steroid inhalation. Whenever she has bronchitis she gets an asthma flare up. Last Assessment & Plan: Had it as a teenager, she spent 3 days in the hospital at the age of 18. Never tubed. She was never on steroid inhalation. Whenever she has bronchitis she gets an asthma flare up. She quit smoking a year ago as it makes it worse. documented as of this encounter (statuses as of 10/18/2021) [place] History of Past illness Narrative* Problem Noted Date Resolved Date Morbid obesity 12/07/2017 03/19/2018 Morbid (severe) obesity due to excess calories 0 04/28/2017 03/19/2018 Pain in joint, lower leg 12/10/2005 019 Unspecified asthma(493.90) 05/31 Overview: Had it as a teenager, she spent 3 days in the hospital at the age of 18. Never tubed. She was never on steroid inhalation. Whenever she has bronchitis she gets an asthma flare up. Last Assessment & Plan: Had it as a teenager, she spent 3 days in the hospital at the age of 18. Never tubed. She was never on steroid inhalation. Whenever she has bronchitis she gets an asthma flare up. She quit smoking a year ago as it makes it worse. documented as of this encounter (statuses as of 10/21/2021) [place] History of Past illness Narrative* Problem Noted Date Resolved Date Morbid obesity 12/07/2017 03/19/2018 Morbid (severe) obesity due to excess calories 0 04/28/2017 03/19/2018 Pain in joint, lower leg 12/10/2005 019 Unspecified asthma(493.90) 05/31 Overview: Had it as a teenager, she spent 3 days in the hospital at the age of 18. Never tubed. She was never on steroid inhalation. Whenever she has bronchitis she gets an asthma flare up. Last Assessment & Plan: Had it as a teenager, she spent 3 days in the hospital at the age of 18. Never tubed. She was never on steroid inhalation. Whenever she has bronchitis she gets an asthma flare up. She quit smoking a year ago as it makes it worse. documented as of this encounter (statuses as of 10/22/2021) [place] History of Past illness Narrative* Problem Noted Date Resolved Date Morbid obesity 12/07/2017 03/19/2018 Morbid (severe) obesity due to excess calories 0 04/28/2017 03/19/2018 Pain in joint, lower leg 12/10/2005 019 Unspecified asthma(493.90) 05/31 Overview: Had it as a teenager, she spent 3 days in the hospital at the age of 18. Never tubed. She was never on steroid inhalation. Whenever she has bronchitis she gets an asthma flare up. Last Assessment & Plan: Had it as a teenager, she spent 3 days in the hospital at the age of 18. Never tubed. She was never on steroid inhalation. Whenever she has bronchitis she gets an asthma flare up. She quit smoking a year ago as it makes it worse. documented as of this encounter (statuses as of 10/22/2021) [place] History of Past illness Narrative* Problem Noted Date Resolved Date Morbid obesity 12/07/2017 03/19/2018 Morbid (severe) obesity due to excess calories 0 04/28/2017 03/19/2018 Pain in joint, lower leg 12/10/2005 019 Unspecified asthma(493.90) 05/31 Overview: Had it as a teenager, she spent 3 days in the hospital at the age of 18. Never tubed. She was never on steroid inhalation. Whenever she has bronchitis she gets an asthma flare up. Last Assessment & Plan: Had it as a teenager, she spent 3 days in the hospital at the age of 18. Never tubed. She was never on steroid inhalation. Whenever she has bronchitis she gets an asthma flare up. She quit smoking a year ago as it makes it worse. documented as of this encounter (statuses as of 10/22/2021) [place] History of Past illness Narrative* Problem Noted Date Resolved Date Morbid obesity 12/07/2017 03/19/2018 Morbid (severe) obesity due to excess calories 0 04/28/2017 03/19/2018 Pain in joint, lower leg 12/10/2005 019 Unspecified asthma(493.90) 05/31 Overview: Had it as a teenager, she spent 3 days in the hospital at the age of 18. Never tubed. She was never on steroid inhalation. Whenever she has bronchitis she gets an asthma flare up. Last Assessment & Plan: Had it as a teenager, she spent 3 days in the hospital at the age of 18. Never tubed. She was never on steroid inhalation. Whenever she has bronchitis she gets an asthma flare up. She quit smoking a year ago as it makes it worse. documented as of this encounter (statuses as of 10/23/2021) [place]2018 History of Past illness Narrative* Problem Noted Date Resolved Date Morbid obesity 12/07/2017 03/19/2018 Morbid (severe) obesity due to excess calories 0 04/28/2017 03/19/2018 Pain in joint, lower leg 12/10/2005 019 Unspecified asthma(493.90) 05/31 Overview: Had it as a teenager, she spent 3 days in the hospital at the age of 18. Never tubed. She was never on steroid inhalation. Whenever she has bronchitis she gets an asthma flare up. Last Assessment & Plan: Had it as a teenager, she spent 3 days in the hospital at the age of 18. Never tubed. She was never on steroid inhalation. Whenever she has bronchitis she gets an asthma flare up. She quit smoking a year ago as it makes it worse. documented as of this encounter (statuses as of 10/23/2021) [place] History of Past illness Narrative* Problem Noted Date Resolved Date Morbid obesity 12/07/2017 03/19/2018 Morbid (severe) obesity due to excess calories 0 04/28/2017 03/19/2018 Pain in joint, lower leg 12/10/2005 019 Unspecified asthma(493.90) 05/31 Overview: Had it as a teenager, she spent 3 days in the hospital at the age of 18. Never tubed. She was never on steroid inhalation. Whenever she has bronchitis she gets an asthma flare up. Last Assessment & Plan: Had it as a teenager, she spent 3 days in the hospital at the age of 18. Never tubed. She was never on steroid inhalation. Whenever she has bronchitis she gets an asthma flare up. She quit smoking a year ago as it makes it worse. documented as of this encounter (statuses as of 10/24/2021) [place] History of Past illness Narrative* Problem Noted Date Resolved Date Morbid obesity 12/07/2017 03/19/2018 Morbid (severe) obesity due to excess calories 0 04/28/2017 03/19/2018 Pain in joint, lower leg 12/10/2005 019 Unspecified asthma(493.90) 05/31 Overview: Had it as a teenager, she spent 3 days in the hospital at the age of 18. Never tubed. She was never on steroid inhalation. Whenever she has bronchitis she gets an asthma flare up. Last Assessment & Plan: Had it as a teenager, she spent 3 days in the hospital at the age of 18. Never tubed. She was never on steroid inhalation. Whenever she has bronchitis she gets an asthma flare up. She quit smoking a year ago as it makes it worse. documented as of this encounter (statuses as of 10/27/2021) [place] History of Past illness Narrative* Problem Noted Date Resolved Date Morbid obesity 12/07/2017 03/19/2018 Morbid (severe) obesity due to excess calories 0 04/28/2017 03/19/2018 Pain in joint, lower leg 12/10/2005 019 Unspecified asthma(493.90) 05/31 Overview: Had it as a teenager, she spent 3 days in the hospital at the age of 18. Never tubed. She was never on steroid inhalation. Whenever she has bronchitis she gets an asthma flare up. Last Assessment & Plan: Had it as a teenager, she spent 3 days in the hospital at the age of 18. Never tubed. She was never on steroid inhalation. Whenever she has bronchitis she gets an asthma flare up. She quit smoking a year ago as it makes it worse. documented as of this encounter (statuses as of 10/30/2021) [place] History of Past illness Narrative* Problem Noted Date Resolved Date Morbid obesity 12/07/2017 03/19/2018 Morbid (severe) obesity due to excess calories 0 04/28/2017 03/19/2018 Pain in joint, lower leg 12/10/2005 019 Unspecified asthma(493.90) 05/31 Overview: Had it as a teenager, she spent 3 days in the hospital at the age of 18. Never tubed. She was never on steroid inhalation. Whenever she has bronchitis she gets an asthma flare up. Last Assessment & Plan: Had it as a teenager, she spent 3 days in the hospital at the age of 18. Never tubed. She was never on steroid inhalation. Whenever she has bronchitis she gets an asthma flare up. She quit smoking a year ago as it makes it worse. documented as of this encounter (statuses as of 11/07/2021) [place]2018 History of Past illness Narrative* Problem Noted Date Resolved Date Morbid obesity 12/07/2017 03/19/2018 Morbid (severe) obesity due to excess calories 0 04/28/2017 03/19/2018 Pain in joint, lower leg 12/10/2005 019 Unspecified asthma(493.90) 05/31 Overview: Had it as a teenager, she spent 3 days in the hospital at the age of 18. Never tubed. She was never on steroid inhalation. Whenever she has bronchitis she gets an asthma flare up. Last Assessment & Plan: Had it as a teenager, she spent 3 days in the hospital at the age of 18. Never tubed. She was never on steroid inhalation. Whenever she has bronchitis she gets an asthma flare up. She quit smoking a year ago as it makes it worse. documented as of this encounter (statuses as of 11/18/2021) [place]2018 History of Past illness Narrative* Problem Noted Date Resolved Date Morbid obesity 12/07/2017 03/19/2018 Morbid (severe) obesity due to excess calories 0 04/28/2017 03/19/2018 Pain in joint, lower leg 12/10/2005 019 Unspecified asthma(493.90) 05/31 Overview: Had it as a teenager, she spent 3 days in the hospital at the age of 18. Never tubed. She was never on steroid inhalation. Whenever she has bronchitis she gets an asthma flare up. Last Assessment & Plan: Had it as a teenager, she spent 3 days in the hospital at the age of 18. Never tubed. She was never on steroid inhalation. Whenever she has bronchitis she gets an asthma flare up. She quit smoking a year ago as it makes it worse. documented as of this encounter (statuses as of 12/10/2021) [place] History of Past illness Narrative* Problem Noted Date Resolved Date Morbid obesity 12/07/2017 03/19/2018 Morbid (severe) obesity due to excess calories 0 04/28/2017 03/19/2018 Pain in joint, lower leg 12/10/2005 019 Unspecified asthma(493.90) 05/31 Overview: Had it as a teenager, she spent 3 days in the hospital at the age of 18. Never tubed. She was never on steroid inhalation. Whenever she has bronchitis she gets an asthma flare up. Last Assessment & Plan: Had it as a teenager, she spent 3 days in the hospital at the age of 18. Never tubed. She was never on steroid inhalation. Whenever she has bronchitis she gets an asthma flare up. She quit smoking a year ago as it makes it worse. documented as of this encounter (statuses as of 12/10/2021) [place] History of Past illness Narrative* Problem Noted Date Resolved Date Morbid obesity 12/07/2017 03/19/2018 Morbid (severe) obesity due to excess calories 0 04/28/2017 03/19/2018 Pain in joint, lower leg 12/10/2005 019 Unspecified asthma(493.90) 05/31 Overview: Had it as a teenager, she spent 3 days in the hospital at the age of 18. Never tubed. She was never on steroid inhalation. Whenever she has bronchitis she gets an asthma flare up. Last Assessment & Plan: Had it as a teenager, she spent 3 days in the hospital at the age of 18. Never tubed. She was never on steroid inhalation. Whenever she has bronchitis she gets an asthma flare up. She quit smoking a year ago as it makes it worse. documented as of this encounter (statuses as of 01/06/2022) [place]2018 History of Past illness Narrative* Problem Noted Date Resolved Date Morbid obesity 12/07/2017 03/19/2018 Morbid (severe) obesity due to excess calories 0 04/28/2017 03/19/2018 Pain in joint, lower leg 12/10/2005 019 Unspecified asthma(493.90) 05/31 Overview: Had it as a teenager, she spent 3 days in the hospital at the age of 18. Never tubed. She was never on steroid inhalation. Whenever she has bronchitis she gets an asthma flare up. Last Assessment & Plan: Had it as a teenager, she spent 3 days in the hospital at the age of 18. Never tubed. She was never on steroid inhalation. Whenever she has bronchitis she gets an asthma flare up. She quit smoking a year ago as it makes it worse. documented as of this encounter (statuses as of 01/10/2022) [place]2018 History of Past illness Narrative* Problem Noted Date Resolved Date Morbid obesity 12/07/2017 03/19/2018 Morbid (severe) obesity due to excess calories 0 04/28/2017 03/19/2018 Pain in joint, lower leg 12/10/2005 019 Unspecified asthma(493.90) 05/31 Overview: Had it as a teenager, she spent 3 days in the hospital at the age of 18. Never tubed. She was never on steroid inhalation. Whenever she has bronchitis she gets an asthma flare up. Last Assessment & Plan: Had it as a teenager, she spent 3 days in the hospital at the age of 18. Never tubed. She was never on steroid inhalation. Whenever she has bronchitis she gets an asthma flare up. She quit smoking a year ago as it makes it worse. documented as of this encounter (statuses as of 01/17/2022) [place] History of Past illness Narrative* Problem Noted Date Resolved Date Morbid obesity 12/07/2017 03/19/2018 Morbid (severe) obesity due to excess calories 0 04/28/2017 03/19/2018 Pain in joint, lower leg 12/10/2005 019 Unspecified asthma(493.90) 05/31 Overview: Had it as a teenager, she spent 3 days in the hospital at the age of 18. Never tubed. She was never on steroid inhalation. Whenever she has bronchitis she gets an asthma flare up. Last Assessment & Plan: Had it as a teenager, she spent 3 days in the hospital at the age of 18. Never tubed. She was never on steroid inhalation. Whenever she has bronchitis she gets an asthma flare up. She quit smoking a year ago as it makes it worse. documented as of this encounter (statuses as of 01/18/2022) [place]2018 History of Past illness Narrative* Problem Noted Date Resolved Date Morbid obesity 12/07/2017 03/19/2018 Morbid (severe) obesity due to excess calories 0 04/28/2017 03/19/2018 Pain in joint, lower leg 12/10/2005 019 Unspecified asthma(493.90) 05/31 Overview: Had it as a teenager, she spent 3 days in the hospital at the age of 18. Never tubed. She was never on steroid inhalation. Whenever she has bronchitis she gets an asthma flare up. Last Assessment & Plan: Had it as a teenager, she spent 3 days in the hospital at the age of 18. Never tubed. She was never on steroid inhalation. Whenever she has bronchitis she gets an asthma flare up. She quit smoking a year ago as it makes it worse. documented as of this encounter (statuses as of 01/20/2022) [place] History of Past illness Narrative* Problem Noted Date Resolved Date Morbid obesity 12/07/2017 03/19/2018 Morbid (severe) obesity due to excess calories 0 04/28/2017 03/19/2018 Pain in joint, lower leg 12/10/2005 019 Unspecified asthma(493.90) 05/31 Overview: Had it as a teenager, she spent 3 days in the hospital at the age of 18. Never tubed. She was never on steroid inhalation. Whenever she has bronchitis she gets an asthma flare up. Last Assessment & Plan: Had it as a teenager, she spent 3 days in the hospital at the age of 18. Never tubed. She was never on steroid inhalation. Whenever she has bronchitis she gets an asthma flare up. She quit smoking a year ago as it makes it worse. documented as of this encounter (statuses as of 02/22/2022) [place] History of Past illness Narrative* Problem Noted Date Resolved Date Morbid obesity 12/07/2017 03/19/2018 Morbid (severe) obesity due to excess calories 0 04/28/2017 03/19/2018 Pain in joint, lower leg 12/10/2005 019 Unspecified asthma(493.90) 05/31 Overview: Had it as a teenager, she spent 3 days in the hospital at the age of 18. Never tubed. She was never on steroid inhalation. Whenever she has bronchitis she gets an asthma flare up. Last Assessment & Plan: Had it as a teenager, she spent 3 days in the hospital at the age of 18. Never tubed. She was never on steroid inhalation. Whenever she has bronchitis she gets an asthma flare up. She quit smoking a year ago as it makes it worse. documented as of this encounter (statuses as of 03/11/2022) [place] History of Past illness Narrative* Problem Noted Date Resolved Date Morbid obesity 12/07/2017 03/19/2018 Morbid (severe) obesity due to excess calories 0 04/28/2017 03/19/2018 Pain in joint, lower leg 12/10/2005 019 Unspecified asthma(493.90) 05/31 Overview: Had it as a teenager, she spent 3 days in the hospital at the age of 18. Never tubed. She was never on steroid inhalation. Whenever she has bronchitis she gets an asthma flare up. Last Assessment & Plan: Had it as a teenager, she spent 3 days in the hospital at the age of 18. Never tubed. She was never on steroid inhalation. Whenever she has bronchitis she gets an asthma flare up. She quit smoking a year ago as it makes it worse. documented as of this encounter (statuses as of 03/31/2022) [place] History of Past illness Narrative* Problem Noted Date Resolved Date Morbid obesity 12/07/2017 03/19/2018 Morbid (severe) obesity due to excess calories 0 04/28/2017 03/19/2018 Pain in joint, lower leg 12/10/2005 019 Unspecified asthma(493.90) 05/31 Overview: Had it as a teenager, she spent 3 days in the hospital at the age of 18. Never tubed. She was never on steroid inhalation. Whenever she has bronchitis she gets an asthma flare up. Last Assessment & Plan: Had it as a teenager, she spent 3 days in the hospital at the age of 18. Never tubed. She was never on steroid inhalation. Whenever she has bronchitis she gets an asthma flare up. She quit smoking a year ago as it makes it worse. documented as of this encounter (statuses as of 04/02/2022) [place] History of Past illness Narrative* Problem Noted Date Resolved Date Morbid obesity 12/07/2017 03/19/2018 Morbid (severe) obesity due to excess calories 0 04/28/2017 03/19/2018 Pain in joint, lower leg 12/10/2005 019 Unspecified asthma(493.90) 05/31 Overview: Had it as a teenager, she spent 3 days in the hospital at the age of 18. Never tubed. She was never on steroid inhalation. Whenever she has bronchitis she gets an asthma flare up. Last Assessment & Plan: Had it as a teenager, she spent 3 days in the hospital at the age of 18. Never tubed. She was never on steroid inhalation. Whenever she has bronchitis she gets an asthma flare up. She quit smoking a year ago as it makes it worse. documented as of this encounter (statuses as of 04/11/2022) [place] History of Past illness Narrative* Problem Noted Date Resolved Date Morbid obesity 12/07/2017 03/19/2018 Morbid (severe) obesity due to excess calories 0 04/28/2017 03/19/2018 Pain in joint, lower leg 12/10/2005 019 Unspecified asthma(493.90) 05/31 Overview: Had it as a teenager, she spent 3 days in the hospital at the age of 18. Never tubed. She was never on steroid inhalation. Whenever she has bronchitis she gets an asthma flare up. Last Assessment & Plan: Had it as a teenager, she spent 3 days in the hospital at the age of 18. Never tubed. She was never on steroid inhalation. Whenever she has bronchitis she gets an asthma flare up. She quit smoking a year ago as it makes it worse. documented as of this encounter (statuses as of 05/19/2022) [place] History of Past illness Narrative* Problem Noted Date Resolved Date Morbid obesity 12/07/2017 03/19/2018 Morbid (severe) obesity due to excess calories 0 04/28/2017 03/19/2018 Pain in joint, lower leg 12/10/2005 019 Unspecified asthma(493.90) 05/31 Overview: Had it as a teenager, she spent 3 days in the hospital at the age of 18. Never tubed. She was never on steroid inhalation. Whenever she has bronchitis she gets an asthma flare up. Last Assessment & Plan: Had it as a teenager, she spent 3 days in the hospital at the age of 18. Never tubed. She was never on steroid inhalation. Whenever she has bronchitis she gets an asthma flare up. She quit smoking a year ago as it makes it worse. documented as of this encounter (statuses as of 05/22/2022) [place] History of Past illness Narrative* Problem Noted Date Resolved Date Morbid obesity 12/07/2017 03/19/2018 Morbid (severe) obesity due to excess calories 0 04/28/2017 03/19/2018 Pain in joint, lower leg 12/10/2005 019 Unspecified asthma(493.90) 05/31 Overview: Had it as a teenager, she spent 3 days in the hospital at the age of 18. Never tubed. She was never on steroid inhalation. Whenever she has bronchitis she gets an asthma flare up. Last Assessment & Plan: Had it as a teenager, she spent 3 days in the hospital at the age of 18. Never tubed. She was never on steroid inhalation. Whenever she has bronchitis she gets an asthma flare up. She quit smoking a year ago as it makes it worse. documented as of this encounter (statuses as of 05/23/2022) [place] History of Past illness Narrative* Problem Noted Date Resolved Date Morbid obesity 12/07/2017 03/19/2018 Morbid (severe) obesity due to excess calories 0 04/28/2017 03/19/2018 Pain in joint, lower leg 12/10/2005 019 Unspecified asthma(493.90) 05/31 Overview: Had it as a teenager, she spent 3 days in the hospital at the age of 18. Never tubed. She was never on steroid inhalation. Whenever she has bronchitis she gets an asthma flare up. Last Assessment & Plan: Had it as a teenager, she spent 3 days in the hospital at the age of 18. Never tubed. She was never on steroid inhalation. Whenever she has bronchitis she gets an asthma flare up. She quit smoking a year ago as it makes it worse. documented as of this encounter (statuses as of 06/05/2022) [place]10-29-2018 History of Past illness Narrative* Problem Noted Date Resolved Date Morbid obesity 12/07/2017 03/19/2018 Morbid (severe) obesity due to excess calories 0 04/28/2017 03/19/2018 Pain in joint, lower leg 12/10/2005 019 Unspecified asthma(493.90) 05/31 Overview: Had it as a teenager, she spent 3 days in the hospital at the age of 18. Never tubed. She was never on steroid inhalation. Whenever she has bronchitis she gets an asthma flare up. Last Assessment & Plan: Had it as a teenager, she spent 3 days in the hospital at the age of 18. Never tubed. She was never on steroid inhalation. Whenever she has bronchitis she gets an asthma flare up. She quit smoking a year ago as it makes it worse. documented as of this encounter (statuses as of 06/11/2022) [place]-2018 History of Past illness Narrative* Problem Noted Date Resolved Date Morbid obesity 12/07/2017 03/19/2018 Morbid (severe) obesity due to excess calories 0 04/28/2017 03/19/2018 Pain in joint, lower leg 12/10/2005 019 Unspecified asthma(493.90) 05/31 Overview: Had it as a teenager, she spent 3 days in the hospital at the age of 18. Never tubed. She was never on steroid inhalation. Whenever she has bronchitis she gets an asthma flare up. Last Assessment & Plan: Had it as a teenager, she spent 3 days in the hospital at the age of 18. Never tubed. She was never on steroid inhalation. Whenever she has bronchitis she gets an asthma flare up. She quit smoking a year ago as it makes it worse. documented as of this encounter (statuses as of 06/17/2022) [place]-2018 History of Past illness Narrative* Problem Noted Date Diagnosed Date Resolved Date Morbid obesity 12/07/2017 03/19/2018 Morbid (severe) obesity due to excess calories 04/28/2017 03/19/2018 Pain in joint, lower leg 12/10/200509/2018 Unspecified asthma(493.90) 0 06/01/2015 Overview: Had it as a teenager, she spent 3 days in the hospital at the age of 18. Never tubed. She was never on steroid inhalation. Whenever she has bronchitis she gets an asthma flare up. Last Assessment & Plan: Had it as a teenager, she spent 3 days in the hospital at the age of 18. Never tubed. She was never on steroid inhalation. Whenever she has bronchitis she gets an asthma flare up. She quit smoking a year ago as it makes it worse. documented as of this encounter (statuses as of 2022) [place]-2018 History of Past illness Narrative* Problem Noted Date Diagnosed Date Resolved Date Morbid obesity 12/07/2017 03/19/2018 Morbid (severe) obesity due to excess calories 04/28/2017 03/19/2018 Pain in joint, lower leg 12/10/200509/2018 Unspecified asthma(493.90) 0 06/01/2015 Overview: Had it as a teenager, she spent 3 days in the hospital at the age of 18. Never tubed. She was never on steroid inhalation. Whenever she has bronchitis she gets an asthma flare up. Last Assessment & Plan: Had it as a teenager, she spent 3 days in the hospital at the age of 18. Never tubed. She was never on steroid inhalation. Whenever she has bronchitis she gets an asthma flare up. She quit smoking a year ago as it makes it worse. documented as of this encounter (statuses as of 10/01/2022) [place]-2018 History of Past illness Narrative* Problem Noted Date Diagnosed Date Resolved Date Morbid obesity 12/07/2017 03/19/2018 Morbid (severe) obesity due to excess calories 04/28/2017 03/19/2018 Pain in joint, lower leg 12/10/200509/2018 Unspecified asthma(493.90) 0 06/01/2015 Overview: Had it as a teenager, she spent 3 days in the hospital at the age of 18. Never tubed. She was never on steroid inhalation. Whenever she has bronchitis she gets an asthma flare up. Last Assessment & Plan: Had it as a teenager, she spent 3 days in the hospital at the age of 18. Never tubed. She was never on steroid inhalation. Whenever she has bronchitis she gets an asthma flare up. She quit smoking a year ago as it makes it worse. documented as of this encounter (statuses as of 10/03/2022) [place]-2018 History of Past illness Narrative* Problem Noted Date Diagnosed Date Resolved Date Morbid obesity 12/07/2017 03/19/2018 Morbid (severe) obesity due to excess calories 04/28/2017 03/19/2018 Pain in joint, lower leg 12/10/200509/2018 Unspecified asthma(493.90) 0 06/01/2015 Overview: Had it as a teenager, she spent 3 days in the hospital at the age of 18. Never tubed. She was never on steroid inhalation. Whenever she has bronchitis she gets an asthma flare up. Last Assessment & Plan: Had it as a teenager, she spent 3 days in the hospital at the age of 18. Never tubed. She was never on steroid inhalation. Whenever she has bronchitis she gets an asthma flare up. She quit smoking a year ago as it makes it worse. documented as of this encounter (statuses as of 12/14/2022) [facility] [place]* Diagnosis Class 3 severe obesity with serious comorbidity and body mass index (BMI) of 60.0 to 69.9 in adult, unspecified obesity type (HCC)- [facility] Morbid obesity (HCC)- Primary Morbid obesity Dietary counseling and surveillance Dietary surveillance and counseling [facility] Class 3 severe obesity with serious comorbidity and body mass index (BMI) of 60.0 to 69.9 in adult, unspecified obesity type (HCC)- Primary [facility] Diagnosis Abdominal pain, unspecified abdominal location- Primary [facility] Diagnosis Cubital tunnel syndrome on left- Primary Lesion of ulnar nerve [facility] Diagnosis Class 3 severe obesity due to excess calories with body mass index (BMI) of 50.0 to 59.9 in adult, unspecified whether serious comorbidity present (HCC)- Primary Weight disorder Other symptoms concerning nutrition, metabolism, and development Medication management Encounter for long-term (current) use of other medications [facility] Diagnosis Morbid obesity (HCC)- Primary Morbid obesity Dietary counseling and surveillance Dietary surveillance and counseling [facility] Diagnosis Facial rash- Primary Rash and other nonspecific skin eruption [facility] Diagnosis Excoriation of face, subsequent encounter- Primary [facility]* Diagnosis Morbid obesity (HCC)- Primary Morbid obesity Gastroesophageal reflux disease, unspecified whether esophagitis present Preoperative examination Preoperative examination, unspecified Encounter for screening for COVID-19 Morbid obesity (HCC) Morbid obesity Gastroesophageal reflux disease, unspecified whether esophagitis present [facility] Diagnosis Pre-operative examination- Primary Preoperative examination, unspecified Class 3 severe obesity due to excess calories without serious comorbidity with body mass index (BMI) of 50.0 to 59.9 in adult (HCC) Gastroesophageal reflux disease without esophagitis Esophageal reflux Migraine without status migrainosus, not intractable, unspecified migraine type Mild intermittent asthma, unspecified whether complicated SVT (supraventricular tachycardia) (HCC) Other specified cardiac dysrhythmias Morbid obesity (HCC) Morbid obesity Gastroesophageal reflux disease, unspecified whether esophagitis present [facility] Diagnosis Morbid obesity due to excess calories (HCC)- Primary [facility]* Diagnosis Encounter for screening mammogram for breast cancer [facility]* Diagnosis S/P bariatric surgery- Primary Bariatric surgery status Dietary counseling and surveillance Dietary surveillance and counseling Class 3 severe obesity with serious comorbidity and body mass index (BMI) of 60.0 to 69.9 in adult, unspecified obesity type (HCC) [facility]* Diagnosis Bariatric surgery status- Primary [facility]* Diagnosis Bariatric surgery status- Primary [facility]* Diagnosis Morbid obesity due to excess calories (HCC)- Primary Bariatric surgery status [facility]* Diagnosis Cervical radiculopathy Brachial neuritis or radiculitis nos documented [facility]* Diagnosis Recurrent cold sores- Primary Herpes simplex without mention of complication Chapped lips Diseases of lips Mouth pain Other and unspecified diseases of the oral soft tissues [facility]* Diagnosis No-show for appointment- Primary documented in this encounter [facility]* Diagnosis COVID- Primary documented in this encounter [facility]* Diagnosis Sore throat- Primary Acute pharyngitis Strep throat Streptococcal sore throat documented in this encounter [facility]* Diagnosis Irregular menses- Primary Irregular menstrual cycle documented in this encounter [facility] note* Diagnosis Seasonal allergies Allergic rhinitis, cause unspecified documented in this encounter [facility]* Diagnosis Encounter for surgical aftercare following surgery of digestive system- Primary Aftercare following surgery of the teeth, oral cavity and digestive system, NEC Class 3 severe obesity due to excess calories without serious comorbidity with body mass index (BMI) of 50.0 to 59.9 in adult ([facility]) documented in this encounter [facility] note* Diagnosis Cervical radiculopathy Brachial neuritis or radiculitis nos documented in this encounter [facility] note* Diagnosis Sciatica, right side- Primary documented in this encounter [facility] note* Diagnosis Allergy, subsequent encounter- Primary documented in this encounter [facility] note* Diagnosis Lightheaded- Primary Dizziness and giddiness Migraine without status migrainosus, not intractable, unspecified migraine type Gastric bypass status for obesity Bariatric surgery status documented in this encounter [facility]* Diagnosis Hyperglycemia- Primary Other abnormal glucose documented in this encounter [facility] note* Diagnosis Viral bronchitis- Primary Acute bronchitis documented in this encounter [facility] note* Diagnosis Viral bronchitis- Primary Acute bronchitis documented in this encounter [facility] note* Diagnosis Encounter for screening mammogram for breast cancer documented in this encounter [facility] for referral (narrative)* Diagnostic Procedure Only (Routine) - Pending Review Specialty Diagnoses / Procedures Referred By Samra ortiz Referred To Contact [facility] Diagnoses Encounter for screening mammogram for breast cancer Procedures ARUN SCREENING SCREENING MAMMOGRAPHY BI 2-VIEW BREAST INC CAD Toi Escamilla MD [address] [place] [address] [facility] [address] [place] [address] Referral ID Status Reason Start Date Expiration Date Visits Requested Visits Authorized [id number] Pending Review Auto-Generat ed Referral 10/09/2021 11/08/2022 1 1 T [facility] for referral (narrative)* Outpatient Procedure (Routine) - Closed Specialty Diagnoses / Procedures Referred By Samra ortiz Referred To [facility] Diagnoses Lightheaded Procedures ECG COMPLETE ECG ROUTINE ECG W/LEAST 12 LDS W/I&R Toi Escamilla MD [address] [place] [address] [facility] [address] [place] [address] Referral ID Status Reason Start Date Expiration Date V isits Requested Visits Authorized [id number] Closed Auto-Generate d Referral 06/11/2022 06/11/2023 1 1 [facility] for referral (narrative)* Diagnostic Procedure Only (Routine) - Closed Specialty Diagnoses / Procedures Referred By Samra ortiz Referred To Contact [facility] Diagnoses Encounter for screening mammogram for breast cancer Procedures ARUN SCREENING SCREENING MAMMOGRAPHY BI 2-[place] [address] [place] [address] [facility] [address] [place] [address] Referral ID Status Reason Start Date Expiration Date V isits Requested Visits Authorized [id number] Closed Auto-Generate d Referral 10/09/2021 11/08/2022 1 1 [facility] for visit Narrative* Diagnostic Procedure Only (Routine) - Closed Specialty Diagnoses / Procedures Referred By Samra ortiz Referred To Contact [facility] Diagnoses Encounter for screening mammogram for breast cancer Procedures ARUN SCREENING SCREENING MAMMOGRAPHY BI 2-VIEW BREAST INC Toi Emerson MD [address] [place] [address] [facility] [address] [place] [address] Referral ID Status Reason Start Date Expiration Date V isits Requested Visits Authorized [id number] Closed Auto-Generate d Referral 10/09/2021 11/08/2022 1 1 [place] Chief Complaint Chief Complaint Description Start Date neck pain Preliminary chief co mplaint data, not yet signed by the author as of Instructions Instruction Description Start Date CompletedPatient advised to follow-up with Primary Care Physician for BMI management. Advance Directives Documents on File Type Date Recorded Patient Educational Aid Expl anation Advance Directive(s) 09/06/2021 1:19 PM Assessments There may be information available, but it has not been provided by the sender. Review of System There may be information available, but it has not been provided by the sender. Family History There may be information available, but it has not been provided by the sender.No Family History Records Found History of Present Illness There may be information available, but it has not been provided by the sender. Reason for Referral Specialty Diagnoses / Procedures Referred By Contac t Referred To Contact Diagnoses Class 3 severe obesity with serious comorbidity and body mass index (BMI) of 60.0 to 69.9 in adult, unspecified obesity type (HCC) Alison Jules DO [address] [facility] [address] [place] [address] Referral ID Status Reason Start Date Expiration Date V isits Requested Visits Authorized [id number] Pending Review 1 1 Referral ID Status Reason Start Date Expiration Date V isits Requested Visits Authorized [id number] Pending Review 1 1 Specialty Diagnoses / Procedures Referred By Contac t Referred To Contact Diagnoses Class 3 severe obesity due to excess calories with body mass index (BMI) of 50.0 to 59.9 in adult, unspecified whether serious comorbidity present (HCC) Weight disorder Cris Mishra APRN.[employer] [address] [place] [id number] Referral ID Status Reason Start Date Expiration Date Visits Re quested Visits Authorized [id number] Denied 1 1 Specialty Diagnoses / Procedures Referred By Contac t Referred To Contact Dermatology Diagnoses Facial rash Procedures CONSULT TO DERMATOLOGY Norma Nolan APRN.[employer] [address] [place] [address] Referral ID Status Reason Start Date Expiration Date Visits Requested Visits Authorized [id number] Ref Not Required PCP Requested Referral 08/06/2021 08/06/2022 1 1 Specialty Diagnoses / Procedures Referred By Samra t Referred To Contact Diagnoses Morbid obesity (HCC) Chronic GERD Gastroesophageal reflux disease, unspecified whether esophagitis present Preoperative examination Procedures IN PERSON CONSULT TO PACC Jacinta Daugherty APRN.[employer] [address] [place] [address] Referral ID Status Reason Start Date Expiration Date Visits Requested Visits Authorized [id number] Ref Not Required PCP Requested Referral 09/03/2021 12/02/2021 1 1 Specialty Diagnoses / Procedures Referred By Samra t Referred To Contact Diagnoses Allergy, subsequent encounter Toi Escamilla MD [address] [place] [address] Referral ID Status Reason Start Date Expiration Date Visits Re quested Visits Authorized [id number] Closed 1 1 Medications Administered Section Inactive Administered Medications - up to 3 most recent administrations Medication Order MAR Action Action Date Dose Rate Site adult multivitamin 10 mL, thiamine 100 mg, folic acid 1 mg, magnesium sulfate 2 g in NaCl 0.9% 1,000 mL INTRAVENOUS, at 500 mL/hr, ONCE, 1 dose, On Thu10/23/21 at 1030 New Bag/Syringe/Bottle 10/23/2021 10:50 AM EDT 500 mL/hr NaCl 0.9% iv infusion 990 mL/hr, INTRAVENOUS, CONTINUOUS, Starting on Thu10/23/21 at 1030, Until Thu10/24/21 at 0413 New Bag/Syringe/Bottle 10/23/2021 10:15 AM EDT 990 mL/hr 990 mL/hr Summary Purpose Additional Source Comments Reason for Visit (unrecogniz ed section and content) Specialty Diagnoses / Procedures Referred By Samra t Referred To Contact ADMITTING Diagnoses Morbid obesity (HCC) Gastroesophageal reflux disease, unspecified whether esophagitis present Procedures LAPS GSTR RSTCV PX W/BYP RADHA-EN-Y LIMB <150 CM LAPAROSCOPIC GASTRIC RESTRICTIVE SURG W/ BYPASS & RADHA-EN-Y 150CM OR LESS [facility] [address] [place] [address] Referral ID Status Reason Start Date Expiration Date Visits Re quested Visits Authorized [id number] 1 1 Reason Comments Consult Reason For Visit Description Start Date New - 1st visit with practice Preliminary reason f or visit data, not yet signed by the author as of neck pain Reason Comments Established Patient Reason Comments Reassessment Patient Education Reason Comments Appointment Patient called juan j hollins. Said she is having trouble scheduling her 5 week appointment, and would like a call back. Her phone number is [phone]. 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 Jules's schedule for 06/18/21 @ 2pm. Pt accepted appointment. Reason Comments Obesity Reason Comments Pain right side pain, los s of appetite, diarrhea x 1 day Reason Comments Patient Update Reason Comments Pain left hand with numbn ess and shooting pain x 4 days Reason Onset Date Comments Refill Request 07/15/2021 Reason Comments Weight Problem Reason Comments Abdominal Pain Reason Comments Rash facial rash, was see n in [facility] about a month ago Reason Onset Date Comments Refill Request 08/14/2021 Reason Comments Rash Reason Comments Schedule Surgery Reason Comments 10/01/2021 Reason Comments Preparations For Surgery Reason Comments Returning Patient's Call Reason Onset Date Comments Refill Request 09/17/2021 Reason Comments BMI Follow Up Reason Onset Date Comments Transition Of Care 10/04/2021 TCM Initial H ospital Discharge [facility] on 10-03-21. Reason Comments Post Op Reason Comments Medication Problem Reason Comments Weight Loss Surgery Reason Comments Initial Consult Urgent Dispatch Reason Comments returning patitent call Reason Comments URI Reason Onset Date Comments Refill Request 11/16/2021 Reason Comments Prescription Clarification Reason Comments Acute Visit Sores on lip/mouth/t ongue Reason Comments No Show Reason Comments Covid Positive Reason Comments Work excuse letter Reason Comments Sore Throat GLYNN, low fever x last night Reason Comments Discussion Abnormal bleeding Reason Onset Date Comments Refill Request 04/02/2022 Reason Comments Medication Request Reason Onset Date Comments Refill Request 05/20/2022 Reason Comments Back Pain Reason Comments Follow Up Reason Comments Headache Dizziness Reason Comments Results Reason Comments Cough Congestion x this AM Reason Comments prescriptions /nebulizer solution/tubing /mouth pc. Reason Comments Cough Chest congestion x1 AMANUEL palumbo 09/30 Source Comments (unrecognize d section and content) In the event this informatio n is protected by the Federal Confidentiality of Alcohol and Drug Abuse Patient Records regulations: The Federal rules restrict any use of the information to criminally investigate or prosecute any alcohol or drug abuse patient.[place] the event this information is protected by the Federal Confidentiality of Alcohol and Drug Abuse Patient Records regulations: The Federal rules restrict any use of the information to criminally investigate or prosecute any alcohol or drug abuse patient.[place] the event this information is protected by the Federal Confidentiality of Alcohol and Drug Abuse Patient Records regulations: The Federal rules restrict any use of the information to criminally investigate or prosecute any alcohol or drug abuse patient.[place] the event this information is protected by the Federal Confidentiality of Alcohol and Drug Abuse Patient Records regulations: The Federal rules restrict any use of the information to criminally investigate or prosecute any alcohol or drug abuse patient.[place] the event this information is protected by the Federal Confidentiality of Alcohol and Drug Abuse Patient Records regulations: The Federal rules restrict any use of the information to criminally investigate or prosecute any alcohol or drug abuse patient.[place] the event this information is protected by the Federal Confidentiality of Alcohol and Drug Abuse Patient Records regulations: The Federal rules restrict any use of the information to criminally investigate or prosecute any alcohol or drug abuse patient.[place] the event this information is protected by the Federal Confidentiality of Alcohol and Drug Abuse Patient Records regulations: The Federal rules restrict any use of the information to criminally investigate or prosecute any alcohol or drug abuse patient.[place] the event this information is protected by the Federal Confidentiality of Alcohol and Drug Abuse Patient Records regulations: The Federal rules restrict any use of the information to criminally investigate or prosecute any alcohol or drug abuse patient.[place] the event this information is protected by the Federal Confidentiality of Alcohol and Drug Abuse Patient Records regulations: The Federal rules restrict any use of the information to criminally investigate or prosecute any alcohol or drug abuse patient.[place] the event this information is protected by the Federal Confidentiality of Alcohol and Drug Abuse Patient Records regulations: The Federal rules restrict any use of the information to criminally investigate or prosecute any alcohol or drug abuse patient.[place] the event this information is protected by the Federal Confidentiality of Alcohol and Drug Abuse Patient Records regulations: The Federal rules restrict any use of the information to criminally investigate or prosecute any alcohol or drug abuse patient.[place] the event this information is protected by the Federal Confidentiality of Alcohol and Drug Abuse Patient Records regulations: The Federal rules restrict any use of the information to criminally investigate or prosecute any alcohol or drug abuse patient.[place] the event this information is protected by the Federal Confidentiality of Alcohol and Drug Abuse Patient Records regulations: The Federal rules restrict any use of the information to criminally investigate or prosecute any alcohol or drug abuse patient.[place]ervilleIn the event this information is protected by the Federal Confidentiality of Alcohol and Drug Abuse Patient Records regulations: The Federal rules restrict any use of the information to criminally investigate or prosecute any alcohol or drug abuse patient.[place]ervilleIn the event this information is protected by the Federal Confidentiality of Alcohol and Drug Abuse Patient Records regulations: The Federal rules restrict any use of the information to criminally investigate or prosecute any alcohol or drug abuse patient.[place]ervilleIn the event this information is protected by the Federal Confidentiality of Alcohol and Drug Abuse Patient Records regulations: The Federal rules restrict any use of the information to criminally investigate or prosecute any alcohol or drug abuse patient.[place]ervilleIn the event this information is protected by the Federal Confidentiality of Alcohol and Drug Abuse Patient Records regulations: The Federal rules restrict any use of the information to criminally investigate or prosecute any alcohol or drug abuse patient.[place]ervilleIn the event this information is protected by the Federal Confidentiality of Alcohol and Drug Abuse Patient Records regulations: The Federal rules restrict any use of the information to criminally investigate or prosecute any alcohol or drug abuse patient.[place]ervilleIn the event this information is protected by the Federal Confidentiality of Alcohol and Drug Abuse Patient Records regulations: The Federal rules restrict any use of the information to criminally investigate or prosecute any alcohol or drug abuse patient.[place]ervilleIn the event this information is protected by the Federal Confidentiality of Alcohol and Drug Abuse Patient Records regulations: The Federal rules restrict any use of the information to criminally investigate or prosecute any alcohol or drug abuse patient.[place]In the event this information is protected by the Federal Confidentiality of Alcohol and Drug Abuse Patient Records regulations: The Federal rules restrict any use of the information to criminally investigate or prosecute any alcohol or drug abuse patient.[place]ervilleIn the event this information is protected by the Federal Confidentiality of Alcohol and Drug Abuse Patient Records regulations: The Federal rules restrict any use of the information to criminally investigate or prosecute any alcohol or drug abuse patient.[place]ervilleIn the event this information is protected by the Federal Confidentiality of Alcohol and Drug Abuse Patient Records regulations: The Federal rules restrict any use of the information to criminally investigate or prosecute any alcohol or drug abuse patient.[place]In the event this information is protected by the Federal Confidentiality of Alcohol and Drug Abuse Patient Records regulations: The Federal rules restrict any use of the information to criminally investigate or prosecute any alcohol or drug abuse patient.[place]ervilleIn the event this information is protected by the Federal Confidentiality of Alcohol and Drug Abuse Patient Records regulations: The Federal rules restrict any use of the information to criminally investigate or prosecute any alcohol or drug abuse patient.[place]ervilleIn the event this information is protected by the Federal Confidentiality of Alcohol and Drug Abuse Patient Records regulations: The Federal rules restrict any use of the information to criminally investigate or prosecute any alcohol or drug abuse patient.[place]ervilleIn the event this information is protected by the Federal Confidentiality of Alcohol and Drug Abuse Patient Records regulations: The Federal rules restrict any use of the information to criminally investigate or prosecute any alcohol or drug abuse patient.[place]ervilleIn the event this information is protected by the Federal Confidentiality of Alcohol and Drug Abuse Patient Records regulations: The Federal rules restrict any use of the information to criminally investigate or prosecute any alcohol or drug abuse patient.[place]In the event this information is protected by the Federal Confidentiality of Alcohol and Drug Abuse Patient Records regulations: The Federal rules restrict any use of the information to criminally investigate or prosecute any alcohol or drug abuse patient.[place]ervilleIn the event this information is protected by the Federal Confidentiality of Alcohol and Drug Abuse Patient Records regulations: The Federal rules restrict any use of the information to criminally investigate or prosecute any alcohol or drug abuse patient.[place]ervilleIn the event this information is protected by the Federal Confidentiality of Alcohol and Drug Abuse Patient Records regulations: The Federal rules restrict any use of the information to criminally investigate or prosecute any alcohol or drug abuse patient.[place]In the event this information is protected by the Federal Confidentiality of Alcohol and Drug Abuse Patient Records regulations: The Federal rules restrict any use of the information to criminally investigate or prosecute any alcohol or drug abuse patient.[place]In the event this information is protected by the Federal Confidentiality of Alcohol and Drug Abuse Patient Records regulations: The Federal rules restrict any use of the information to criminally investigate or prosecute any alcohol or drug abuse patient.[place]In the event this information is protected by the Federal Confidentiality of Alcohol and Drug Abuse Patient Records regulations: The Federal rules restrict any use of the information to criminally investigate or prosecute any alcohol or drug abuse patient.[place]In the event this information is protected by the Federal Confidentiality of Alcohol and Drug Abuse Patient Records regulations: The Federal rules restrict any use of the information to criminally investigate or prosecute any alcohol or drug abuse patient.[place]In the event this information is protected by the Federal Confidentiality of Alcohol and Drug Abuse Patient Records regulations: The Federal rules restrict any use of the information to criminally investigate or prosecute any alcohol or drug abuse patient.[place]In the event this information is protected by the Federal Confidentiality of Alcohol and Drug Abuse Patient Records regulations: The Federal rules restrict any use of the information to criminally investigate or prosecute any alcohol or drug abuse patient.[place]In the event this information is protected by the Federal Confidentiality of Alcohol and Drug Abuse Patient Records regulations: The Federal rules restrict any use of the information to criminally investigate or prosecute any alcohol or drug abuse patient.[place]In the event this information is protected by the Federal Confidentiality of Alcohol and Drug Abuse Patient Records regulations: The Federal rules restrict any use of the information to criminally investigate or prosecute any alcohol or drug abuse patient.[place]In the event this information is protected by the Federal Confidentiality of Alcohol and Drug Abuse Patient Records regulations: The Federal rules restrict any use of the information to criminally investigate or prosecute any alcohol or drug abuse patient.[place]In the event this information is protected by the Federal Confidentiality of Alcohol and Drug Abuse Patient Records regulations: The Federal rules restrict any use of the information to criminally investigate or prosecute any alcohol or drug abuse patient.[place]In the event this information is protected by the Federal Confidentiality of Alcohol and Drug Abuse Patient Records regulations: The Federal rules restrict any use of the information to criminally investigate or prosecute any alcohol or drug abuse patient.[place]In the event this information is protected by the Federal Confidentiality of Alcohol and Drug Abuse Patient Records regulations: The Federal rules restrict any use of the information to criminally investigate or prosecute any alcohol or drug abuse patient.[place]In the event this information is protected by the Federal Confidentiality of Alcohol and Drug Abuse Patient Records regulations: The Federal rules restrict any use of the information to criminally investigate or prosecute any alcohol or drug abuse patient.[place]In the event this information is protected by the Federal Confidentiality of Alcohol and Drug Abuse Patient Records regulations: The Federal rules restrict any use of the information to criminally investigate or prosecute any alcohol or drug abuse patient.[place]In the event this information is protected by the Federal Confidentiality of Alcohol and Drug Abuse Patient Records regulations: The Federal rules restrict any use of the information to criminally investigate or prosecute any alcohol or drug abuse patient.[place]In the event this information is protected by the Federal Confidentiality of Alcohol and Drug Abuse Patient Records regulations: The Federal rules restrict any use of the information to criminally investigate or prosecute any alcohol or drug abuse patient.[place]In the event this information is protected by the Federal Confidentiality of Alcohol and Drug Abuse Patient Records regulations: The Federal rules restrict any use of the information to criminally investigate or prosecute any alcohol or drug abuse patient.[place]In the event this information is protected by the Federal Confidentiality of Alcohol and Drug Abuse Patient Records regulations: The Federal rules restrict any use of the information to criminally investigate or prosecute any alcohol or drug abuse patient.[place]In the event this information is protected by the Federal Confidentiality of Alcohol and Drug Abuse Patient Records regulations: The Federal rules restrict any use of the information to criminally investigate or prosecute any alcohol or drug abuse patient.[place]In the event this information is protected by the Federal Confidentiality of Alcohol and Drug Abuse Patient Records regulations: The Federal rules restrict any use of the information to criminally investigate or prosecute any alcohol or drug abuse patient.[place]In the event this information is protected by the Federal Confidentiality of Alcohol and Drug Abuse Patient Records regulations: The Federal rules restrict any use of the information to criminally investigate or prosecute any alcohol or drug abuse patient.[place]In the event this information is protected by the Federal Confidentiality of Alcohol and Drug Abuse Patient Records regulations: The Federal rules restrict any use of the information to criminally investigate or prosecute any alcohol or drug abuse patient.[place]In the event this information is protected by the Federal Confidentiality of Alcohol and Drug Abuse Patient Records regulations: The Federal rules restrict any use of the information to criminally investigate or prosecute any alcohol or drug abuse patient.[place]In the event this information is protected by the Federal Confidentiality of Alcohol and Drug Abuse Patient Records regulations: The Federal rules restrict any use of the information to criminally investigate or prosecute any alcohol or drug abuse patient.[place]In the event this information is protected by the Federal Confidentiality of Alcohol and Drug Abuse Patient Records regulations: The Federal rules restrict any use of the information to criminally investigate or prosecute any alcohol or drug abuse patient.[place]In the event this information is protected by the Federal Confidentiality of Alcohol and Drug Abuse Patient Records regulations: The Federal rules restrict any use of the information to criminally investigate or prosecute any alcohol or drug abuse patient.[place]In the event this information is protected by the Federal Confidentiality of Alcohol and Drug Abuse Patient Records regulations: The Federal rules restrict any use of the information to criminally investigate or prosecute any alcohol or drug abuse patient.[place]In the event this information is protected by the Federal Confidentiality of Alcohol and Drug Abuse Patient Records regulations: The Federal rules restrict any use of the information to criminally investigate or prosecute any alcohol or drug abuse patient.[place]In the event this information is protected by the Federal Confidentiality of Alcohol and Drug Abuse Patient Records regulations: The Federal rules restrict any use of the information to criminally investigate or prosecute any alcohol or drug abuse patient.[place]In the event this information is protected by the Federal Confidentiality of Alcohol and Drug Abuse Patient Records regulations: The Federal rules restrict any use of the information to criminally investigate or prosecute any alcohol or drug abuse patient.[place]In the event this information is protected by the Federal Confidentiality of Alcohol and Drug Abuse Patient Records regulations: The Federal rules restrict any use of the information to criminally investigate or prosecute any alcohol or drug abuse patient.[place]In the event this information is protected by the Federal Confidentiality of Alcohol and Drug Abuse Patient Records regulations: The Federal rules restrict any use of the information to criminally investigate or prosecute any alcohol or drug abuse patient.[place] Care Teams (unrecognized sec tion and content) Child And Family Services Worker Relationship Specialty Start Date End Date Toi Escamilla MD [facility] [place] [address] PCP - General Family Practice 09/16/18 Child And Family Services Worker Relationship Specialty Start Date End Date Toi Escamilla MD [facility] [place] [address] PCP - General Family Practice 09/16/18 Child And Family Services Worker Relationship Specialty Start Date End Date Toi Escamilla MD [address] [place] [id number] PCP - General Family Practice 09/16/18 Child And Family Services Worker Relationship Specialty Start Date End Date Toi Escamilla MD [address] [place] [id number] PCP - General Family Practice 09/16/18 Child And Family Services Worker Relationship Specialty Start Date End Date Toi Escamilla MD [address] [place] [address] PCP - General Family Practice 09/16/18 Child And Family Services Worker Relationship Specialty Start Date End Date Toi Escamilla MD [address] [facility] [place] [address] PCP - General Family Practice 09/16/18 Child And Family Services Worker Relationship Specialty Start Date End Date Toi Escamilla MD [address] [facility] [place] [address] PCP - General Family Practice 09/16/18 Child And Family Services Worker Relationship Specialty Start Date End Date Toi Escamilla MD [address] [facility] [place] [address] PCP - General Family Practice 09/16/18 Child And Family Services Worker Relationship Specialty Start Date End Date Toi Escamilla MD [address] [facility] [place] [address] PCP - General Family Practice 09/16/18 Child And Family Services Worker Relationship Specialty Start Date End Date Toi Escamilla MD [address] [facility] [place] [address] PCP - General Family Practice 09/16/18 Child And Family Services Worker Relationship Specialty Start Date End Date Toi Escamilla MD [address] [facility] [place] [address] PCP - General Family Practice 09/16/18 Child And Family Services Worker Relationship Specialty Start Date End Date Toi Escamilla MD [address] [facility] [place] [address] PCP - General Family Practice 09/16/18 Child And Family Services Worker Relationship Specialty Start Date End Date Toi Escamilla MD [address] [facility] [place] [address] PCP - General Family Practice 09/16/18 Child And Family Services Worker Relationship Specialty Start Date End Date Toi Escamilla MD [address] [facility] [place] [address] PCP - General Family Practice 09/16/18 Child And Family Services Worker Relationship Specialty Start Date End Date Toi Escamilla MD [address] [facility] [place] [address] PCP - General Family Practice 09/16/18 Child And Family Services Worker Relationship Specialty Start Date End Date Toi Escamilla MD [address] [facility] [place] [address] PCP - General Family Practice 09/16/18 Child And Family Services Worker Relationship Specialty Start Date End Date Toi Escamilla MD [address] [facility] [place] [address] PCP - General Family Practice 09/16/18 Child And Family Services Worker Relationship Specialty Start Date End Date Toi Escamilla MD [address] [facility] [place] [address] PCP - General Family Practice 09/16/18 Child And Family Services Worker Relationship Specialty Start Date End Date Toi Escamilla MD [address] [facility] [place] [address] PCP - General Family Practice 09/16/18 Child And Family Services Worker Relationship Specialty Start Date End Date Toi Escamilla MD [address] [facility] [place] [address] PCP - General Family Practice 09/16/18 Child And Family Services Worker Relationship Specialty Start Date End Date Toi Escamilla MD [address] [facility] [place] [address] PCP - General Family Medicine 09/16/18 Child And Family Services Worker Relationship Specialty Start Date End Date Toi Escamilla MD [address] [facility] [place] [address] PCP - General Family Medicine 09/16/18 Child And Family Services Worker Relationship Specialty Start Date End Date Toi Escamilla MD [address] [facility] [place] [address] PCP - General Family Medicine 09/16/18 Child And Family Services Worker Relationship Specialty Start Date End Date Toi Escamilla MD [address] [facility] [place] [address] PCP - General Family Medicine 09/16/18 Child And Family Services Worker Relationship Specialty Start Date End Date Toi Escamilla MD [address] [facility] [place] [address] PCP - General Family Medicine 09/16/18 Child And Family Services Worker Relationship Specialty Start Date End Date Toi Escamilla MD [address] [facility] [place] [address] PCP - General Family Medicine 09/16/18 Child And Family Services Worker Relationship Specialty Start Date End Date Toi Escamilla MD [address] [facility] [place] [address] PCP - General Family Medicine 09/16/18 Child And Family Services Worker Relationship Specialty Start Date End Date Toi Escamilla MD [address] [facility] [place] [address] PCP - General Family Medicine 09/16/18 Child And Family Services Worker Relationship Specialty Start Date End Date Toi Escamilla MD [address] [facility] [place] [address] PCP - General Family Medicine 09/16/18 Child And Family Services Worker Relationship Specialty Start Date End Date Toi Escamilla MD [address] [facility] [place] [address] PCP - General Family Medicine 09/16/18 Child And Family Services Worker Relationship Specialty Start Date End Date Toi Escamilla MD [address] [facility] [place] [address] PCP - General Family Medicine 09/16/18 Child And Family Services Worker Relationship Specialty Start Date End Date Toi Escamilla MD [address] [facility] [place] [address] PCP - General Family Medicine 09/16/18 Child And Family Services Worker Relationship Specialty Start Date End Date Toi Escamilla MD [address] [facility] [place], [place] [id number] PCP - General Family Medicine 09/16/18 Child And Family Services Worker Relationship Specialty Start Date End Date Toi Escamilla MD [address] [facility] [place], [place] [id number] PCP - General Family Medicine 09/16/18 Child And Family Services Worker Relationship Specialty Start Date End Date Toi Escamilla MD [address] [facility] [place], [place] [id number] PCP - [facility] Family Medicine 09/16/18 Child And Family Services Worker Relationship Specialty Start Date End Date Toi Escamilla MD [address] [facility] [place] [address] PCP - General Family Medicine 09/16/18 Child And Family Services Worker Relationship Specialty Start Date End Date Toi Escamilla MD [address] [facility] [place], [place] [address] PCP - [facility] Family Medicine 09/16/18 Child And Family Services Worker Relationship Specialty Start Date End Date Toi Escamilla MD [address] [facility] [place], [place] [address] PCP - General Family Medicine 09/16/18 INFORMATION SOURCE (unrecogn ized section and content) FOR RECORDS PERTAINING TO PATIENTS WHO ARE OR HAVE BEEN ENROLLED IN A CHEMICAL DEPENDENCY/SUBSTANCEABUSE PROGRAM, SOME INFORMATION MAY BE OMITTED. This clinical summary was aggregated from multiple sources. Caution should be exercised in using it in the provision of clinical care. This summary normalizes information from multiple sources, and as a consequence, information in this document may materially change the coding, format and clinical context of patient data. In addition, data may be omitted in some cases. CLINICAL DECISIONS SHOULD BE BASED ON THE PRIMARY CLINICAL RECORDS. [facility]. provides no warranty or guarantee of the accuracy or completeness of information in this document.
[2023-02-13 22:00] VITALS: RESP 16
--- NOTE | 2023-02-13 22:18 | EDS_ITS ---
HPI History of Present Illness Chief Complaint: Headache Informant: patient Narrative Narrative: Patient presents with headaches fevers chills off and on for about 5 or 6 days. Her daughter had some illness but was having coughing and congestion. This patient has not had any cough congestion or runny nose. No earache. No chest pain. No shortness of breath. No nausea vomiting diarrhea. No rashes. No urinary symptoms. She states she just gets fevers muscle aches hot and cold chills and then she gets headaches. She has a history of migraines but feels these are different. She only gets the headache if she gets the fever. When the fever goes away the headache goes away and all the other symptoms go away and she feels fine. It is getting less frequent. She has no known exposures other than to her daughter. [facility] Medical History (Updated 02/13/23 @ 22:[address] Deepak Moreno MD) Arthritis GERD (gastroesophageal reflux disease) Migraine Home Medications omeprazole 40 mg capsule,delayed release 40 mg PO DAILY 04/16/18 [History Last Taken 12/15/19] albuterol sulfate 2.5 mg/3 mL (0.083 %) solution for nebulization 2.5 mg inhalation Q4HWA.RT PRN Sob &/Or Wheezing 12/04/18 [History Last Taken Unknown] ipratropium 0.5 mg-albuterol 3 mg (2.5 mg base)/3 mL nebulization soln 3 ml inhalation Q4H.RT PRN Sob &/Or Wheezing ##20 12/04/18 [Rx Last Taken Unknown] pregabalin 75 mg capsule 75 mg PO BID 12/15/19 [History Last Taken 12/15/19] loratadine 10 mg tablet (Claritin) 10 mg PO DAILY 11/05/20 [History Last Taken Unknown] Relafen 06/24/21 [History Last Taken Unknown] phentermine 37.5 mg tablet 37.5 mg PO DAILY 06/24/21 [History Last Taken Unknown] hydrocodone-acetaminophen 5-325mg 5mg-325mg 1 tab PO Q6H PRN pain 3 days #10 tabs 06/27/21 [Rx Last Taken Unknown] ondansetron 4 mg disintegrating tablet 4 mg PO Q8H PRN nausea and vomiting #14 tabs 06/27/21 [Rx Last Taken Unknown] sucralfate 100 mg/mL oral suspension (Carafate) 1 g (10 mL) PO TID 14 days #420 mL 06/27/21 [Rx Last Taken Unknown] albuterol sulfate 2.5 mg/3 mL (0.083 %) solution for nebulization 2.5 mg (3 mL) inhalation Q4H PRN #25 vials 09/30/22 [Rx Last Taken Unknown] doxycycline hyclate 100 mg capsule 100 mg PO BID #20 caps 09/30/22 [Rx Last Taken Unknown] Allergy/AdvReac Type Severity Reaction Status Date / Time gabapentin [From Neurontin] Allergy Swelling Verified 02/13/23 18:50 prednisone AdvReac Other Verified 02/13/23 18:50 Surgical History (Updated 02/13/23 @ 22:[address] Deepak Moreno MD) History of bilateral tubal ligation History of Mark-en-Y gastric bypass Social History household members: significant other Smoking Status: Former smoker substance use type: does not use ROS ROS ED Constitutional Constitutional ED: Reports chills, fever(s) and sweats Eyes Eyes: Denies change in vision ENT ENT ED: Denies ear pain, rhinorrhea or sore throat Cardiovascular Cardiovascular: Denies chest pain or palpitations Respiratory/Chest Respiratory/Chest: Denies cough or dyspnea Gastrointestinal Gastrointestinal: Denies abdominal pain, diarrhea, nausea or vomiting Genitourinary Genitourinary ED: Denies dysuria or hematuria Musculoskeletal Musculoskeletal: Reports myalgias; Denies arthralgias, back pain or neck pain Integumentary Denies rash Neurologic Neurologic: Reports headache(s); Denies paresthesias or weakness Hematologic/Lymphatic Hematologic/Lymphatic: Denies easy bleeding or easy bruising Allergic/Immunologic Allergic/Immunologic ED: Denies urticaria EXAM Physical Exam Narrative Exam Narrative: CONSTITUTIONAL: Patient is nontoxic in appearance. The patient looks comfortable. Work of breathing looks normal. HEENT: No notable trauma. Mucous membranes moist. No sinus tenderness. No indication of pain with swallowing. EYES: No conjunctival injection. No proptosis. No photophobia at this time. No pain with motion of the eyes. NECK:No JVD. No stridor. No meningismus whatsoever. CARDIOVASCULAR: Regular rate. Regular rhythm. No notable murmur. No JVD. RESPIRATORY: No respiratory distress. Breathing is unlabored. No wheezes. No rhonchi. GASTROINTESTINAL: Not distended. Bowel sounds are normal. No tenderness. GENITOURINARY: No tenderness over the bladder. No CVA tenderness. MUSCULOSKELETAL: Atraumatic. No tenderness NEUROLOGICAL: Patient is alert and appropriate. No focal deficit noted. SKIN: No noted rashes. No diaphoresis. PSYCHIATRIC: Patient is calm. Mood is appropriate. Const Vital Signs: 02/13/23 18:50 Temperature 98 F Temperature Source Temporal Pulse Rate 82 Respiratory Rate 14 Blood Pressure 129/93 H Blood Pressure Mean 105 Pulse Ox 100 Oxygen Delivery Method Room Air MDM MDM MDM Narrative Medical decision making narrative: Patient's viral studies are negative. I discussed options with the patient. I explained that this is not consistent with a bacterial meningitis. She is 5 or 6 days into symptoms. She only gets the headaches and muscle aches when she gets a fever. When the fever breaks she feels fine. This does not justify a lumbar puncture. She is happy because she does not want that done. I still think this is a viral syndrome. It is already getting less frequent. I encouraged Tylenol for symptoms which she says does help. We discussed that if she develops specific symptoms she should return. I was doing the patient's discharge when I was notified that she had already left. Discharge Plan Triage Chief Complaint: Headache ED Provider: Deepak Moreno Dx/Rx/DC Orders Clinical Impression: Acute viral syndrome Instructions: ED Viral Syndrome (Adult) Prescriptions: No Action omeprazole 40 capsule,delayed release(DR/EC) 40 mg PO DAILY albuterol sulfate 2.5 MG/3 ML solution for nebulization 2.5 mg inhalation Q4HWA.RT PRN (Reason: Sob &/Or Wheezing) ipratropium-albuterol 3 ML solution for nebulization 3 ml inhalation Q4H.RT PRN (Reason: Sob &/Or Wheezing) Qty: 20 0RF pregabalin 75 MG capsule 75 mg PO BID loratadine [Claritin] 10 mg Tablet 10 mg PO DAILY phentermine 37.5 mg tablet 37.5 mg PO DAILY Patient Comments: TAKE 1 TABLET BY MOUTH ONCE DAILY FOR 30 DAYS Relafen ondansetron 4 mg tablet,disintegrating 4 mg PO Q8H PRN (Reason: nausea and vomiting) Qty: 14 0RF sucralfate [Carafate] 100 mg/mL suspension 1 g PO TID 14 Days Qty: 420 0RF hydrocodone-acetaminophen 5-325 mg tablet 1 tab PO Q6H PRN (Reason: pain) 3 Days Qty: 10 0RF albuterol sulfate 2.5 mg /3 mL (0.083 %) solution for nebulization 2.5 mg inhalation Q4H PRN Qty: 25 0RF Rx Instructions: Use q4 hours and PRN for wheezing doxycycline hyclate 100 mg capsule 100 mg PO BID Qty: 20 0RF Primary Care Provider: Toi Mendez Referrals: Toi Mendez MD [Primary Care Provider] - 3-5 Days if not improving Disposition Disposition: Elopement Discharge Date/Time: 02/13/23 22:21
== END 2023-02-13 22:21 | disposition left against medical advice (07) ==
PROVIDERS: Emergency Provider Emergency Medicine; PCP Family Medicine; Visit Provider Emergency Medicine
DX: B34.9 Viral infection, unspecified (principal); Z87.891 Personal history of nicotine dependence; K21.9 Gastro-esophageal reflux disease without esophagitis; Z98.51 Tubal ligation status; R50.9 Fever, unspecified; R51.9 Headache, unspecified
CPT/HCPCS: 87631; 99282

== ENCOUNTER 2023-03-05 15:13 | Emergency (ER) | payer SELFPAY ==
[2023-03-05 15:14] VITALS: BP 101/73; PULSE 75; RESP 18; TEMP 36.3; O2SAT 97; BMI 37.5
--- NOTE | 2023-03-05 16:35 | EDS_ITS ---
HPI History of Present Illness Chief Complaint: Wound Detail of Chief Complaint: Swollen lymph node right groin for about a month. Informant: patient Onset/Context/Timing Onset: Weeks Context: Gradual Onset Timing: Continuous Current Severity: Mild Maximum Severity: Mild Narrative Narrative: 42-year-old female history of reflux and gastric bypass surgery a year ago in which she is lost 200 pounds. States she is noticed about 3 to 4 weeks ago maybe is always a month a swollen lymph node in the right groin. Slightly tender. She denies any fever or chills recently. Denies any redness to the area. Believes it is infected. She wanted evaluated. No history of any types of cancer. No other lymphadenopathy. Prior similar symptoms: No Recent Illness/Hospitalization: No PFSH PFSH Medical History Arthritis GERD (gastroesophageal reflux disease) Migraine Home Medications omeprazole 40 mg capsule,delayed release 40 mg PO DAILY 04/16/18 [History Last Taken 12/15/19] albuterol sulfate 2.5 mg/3 mL (0.083 %) solution for nebulization 2.5 mg inhalation Q4HWA.RT PRN Sob &/Or Wheezing 12/04/18 [History Last Taken Unknown] ipratropium 0.5 mg-albuterol 3 mg (2.5 mg base)/3 mL nebulization soln 3 ml inhalation Q4H.RT PRN Sob &/Or Wheezing ##20 12/04/18 [Rx Last Taken Unknown] pregabalin 75 mg capsule 75 mg PO BID 12/15/19 [History Last Taken 12/15/19] loratadine 10 mg tablet (Claritin) 10 mg PO DAILY 11/05/20 [History Last Taken Unknown] Relafen 06/24/21 [History Last Taken Unknown] phentermine 37.5 mg tablet 37.5 mg PO DAILY 06/24/21 [History Last Taken Unknown] hydrocodone-acetaminophen 5-325mg 5mg-325mg 1 tab PO Q6H PRN pain 3 days #10 tabs 06/27/21 [Rx Last Taken Unknown] ondansetron 4 mg disintegrating tablet 4 mg PO Q8H PRN nausea and vomiting #14 tabs 06/27/21 [Rx Last Taken Unknown] sucralfate 100 mg/mL oral suspension (Carafate) 1 g (10 mL) PO TID 14 days #420 mL 06/27/21 [Rx Last Taken Unknown] albuterol sulfate 2.5 mg/3 mL (0.083 %) solution for nebulization 2.5 mg (3 mL) inhalation Q4H PRN #25 vials 09/30/22 [Rx Last Taken Unknown] doxycycline hyclate 100 mg capsule 100 mg PO BID #20 caps 09/30/22 [Rx Last Taken Unknown] cephalexin 500 mg capsule 500 mg PO Q6 #40 CAPSULES 03/05/23 [Rx Last Taken Unknown] Allergy/AdvReac Type Severity Reaction Status Date / Time gabapentin [From Neurontin] Allergy Swelling Verified 03/05/23 15:14 topiramate [From Topamax] AdvReac Mild [place] Verified 03/05/23 15:14 prednisone AdvReac Other Verified 03/05/23 15:14 Surgical History History of bilateral tubal ligation History of Mark-en-Y gastric bypass Social History household members: significant other Smoking Status: Former smoker substance use type: does not use ROS ROS ED ROS Narrative Denies recent illness in the last 2 weeks. Review of Systems ROS Unobtainable: Denies due to encephalopathy Constitutional Constitutional ED: Denies chills or fever(s) Eyes Eyes: Denies blurry vision ENT ENT ED: Denies ear pain Cardiovascular Cardiovascular: Denies chest pain Respiratory/Chest Respiratory/Chest: Denies cough or dyspnea Gastrointestinal Gastrointestinal: Denies abdominal pain, constipation or diarrhea Genitourinary Genitourinary ED: Denies dysuria or hematuria Musculoskeletal Musculoskeletal: Denies arthralgias or back pain Integumentary Denies abscess Neurologic Neurologic: Denies headache(s) Psychiatric Psychiatric: Denies anxiety Endocrine Endocrinology: Denies cold intolerance Hematologic/Lymphatic Hematologic/Lymphatic: Reports lymphadenopathy Allergic/Immunologic Allergic/Immunologic ED: Denies mouth swelling, tongue swelling or urticaria EXAM Physical Exam Narrative Exam Narrative: Well-appearing 42-year-old female. Vital signs stable afebrile. HEENT exam unremarkable. Neck nontender no lymphadenopathy. Lungs clear to auscultation bilaterally. Heart regular rhythm rate about 75 no murmur. Chest wall and ribs nontender. No axillary lymphadenopathy. Abdomen soft, nontender, nondistended normal bowel sounds no peritoneal signs. Left groin nontender no enlarged lymph nodes. Right groin there is a single solitary enlarged lymph node mildly tender. No erythema. No abscess or drainage. The rest the lymph nodes are not enlarged. There is not a cluster. Full range of motion of both hips and lower extremities. Back nontender. Skin unremarkable. Neurologically she is awake and alert. Const Vital Signs: 03/05/23 15:14 Temperature 97.4 F L Temperature Source Temporal Pulse Rate 75 Respiratory Rate 18 Blood Pressure 101/73 Blood Pressure Mean 82 Pulse Ox 97 Positive well nourished and well developed; Negative for cachectic, contractures or unkempt General Appearance ED: well developed and NAD; Negative for unkempt, cachectic, contractures, cyanotic, diaphoretic or pallor Nutritional Appearance: Negative for cachectic HEENT Reports moist mucous membranes Negative for trauma or tenderness Eyes PERRL and EOMs intact bilaterally General Eye ED: Negative for pale conjunctiva or scleral icterus Neck no lymphadenopathy, supple and no JVD General: Negative for tenderness Lymph Lymphatic: Negative for other Chest Wall inspection of chest normal and palpation of chest normal Chest: Negative for other Resp normal respiratory effort and clear to auscultation bilaterally Effort and Inspection: Negative for retractions Auscultation: Negative for rales, rhonchi or wheezes Cardio regular rate, regular rhythm, S1 normal heart sound, S2 normal heart sound and no murmurs Palpation: Negative for palpable S3 or palpable S4 Rate: Negative for bradycardia or tachycardic Rhythm: Negative for abnormal rhythm GI normal to inspection, nondistended, normoactive bowel sounds, non-tender, non- distended and no masses Inspection: Negative for abdominal distention Auscultation: normoactive bowel sounds Palpation: soft; Negative for tender or guarding Bladder / Kidney Exam: No other Back/Spine no CVA tenderness General Back: Negative for CVA tenderness Cervical Spine: Negative for cervical spine tenderness Thoracic Spine / Upper Back: Negative for thoracic spinal tenderness or paraspinal muscle tenderness Lumbar Spine / Lower Back: Negative for lumbar spinal tenderness Extremity normal to inspection General Extremety ED: Negative for edema, tenderness or other findings General Extremity: Negative for edema or other findings Neuro oriented x3 and CN's II-XII intact bilaterally Sensorium / Orientation: alert; Negative for orientation impaired, lethargic or stuporous Psych mental status grossly normal Appearance: Negative for unkempt Attitude: No agitated Mood & Affect: Negative for depressed, anxious or tearful Skin no rashes or lesions noted, no wounds and skin turgor normal General Skin Exam: Negative for jaundice or pallor Lesions: No lesion noted Rashes: No rashes noted Trauma: Negative for abrasion Wounds: Negative for wounds noted MDM [facility] History & Record Review Discussion w/independent historian: Patient Additional record(s) reviewed:: Prior inpatient record, Prior outpatient record, Prior ED visit and Prior labs Discharge Plan Triage Chief Complaint: Wound ED Provider: Jose Salgado Dx/Rx/DC Orders Clinical Impression: Lymphadenopathy, inguinal Instructions: Lymphadenopathy Prescriptions: New cephalexin 500 mg capsule 500 mg PO Q6 Qty: 40 0RF No Action omeprazole 40 capsule,delayed release(DR/EC) 40 mg PO DAILY albuterol sulfate 2.5 MG/3 ML solution for nebulization 2.5 mg inhalation Q4HWA.RT PRN (Reason: Sob &/Or Wheezing) ipratropium-albuterol 3 ML solution for nebulization 3 ml inhalation Q4H.RT PRN (Reason: Sob &/Or Wheezing) Qty: 20 0RF pregabalin 75 MG capsule 75 mg PO BID loratadine [Claritin] 10 mg Tablet 10 mg PO DAILY phentermine 37.5 mg tablet 37.5 mg PO DAILY Patient Comments: TAKE 1 TABLET BY MOUTH ONCE DAILY FOR 30 DAYS Relafen ondansetron 4 mg tablet,disintegrating 4 mg PO Q8H PRN (Reason: nausea and vomiting) Qty: 14 0RF sucralfate [Carafate] 100 mg/mL suspension 1 g PO TID 14 Days Qty: 420 0RF hydrocodone-acetaminophen 5-325 mg tablet 1 tab PO Q6H PRN (Reason: pain) 3 Days Qty: 10 0RF albuterol sulfate 2.5 mg /3 mL (0.083 %) solution for nebulization 2.5 mg inhalation Q4H PRN Qty: 25 0RF Rx Instructions: Use q4 hours and PRN for wheezing doxycycline hyclate 100 mg capsule 100 mg PO BID Qty: 20 0RF Primary Care Provider: Toi Mendez Referrals: Toi Mendez MD [Primary Care Provider] - 1 Week if not improving Activity Restrictions/Additional Instructions: This will be treated as an enlarged infected groin lymph node. You will be placed on antibiotic Keflex 4 times a day for 10 days. Very important if this is not getting better you need to follow-up your primary care physician for further evaluation to ensure it is nothing else going on. Disposition Disposition: Home, Self Care
--- OUTSIDE RECORDS SUMMARY | 2023-03-05 16:58 | XMS RPT_ITS | CCD ---
Author Name Unknown Address [address] [place] [address] Organization [facility] Care Team Providers Care Audiology Doctor Name Role Phone Sri Armstrong Unavailable Francine [...] (1 source) gabapentin Drug Allergy 02-16-19 13 [facility] Work Phone: (20 sources) predniSONE; Translations: [PREDNISONE] Drug Allergy 04-18-19 16 Mental Status Change [facility] Work Phone: (1 source) Seasonal allergy; Translations: [SEASONAL] allergy to substance 02-16-19 13 [facility] Work Phone: (1 source) topiramate Drug Allergy 09-23-19 20 [facility] Work Phone: (20 sources) gabapentin; Translations: [GABAPENTIN] Drug Allergy 04-14-19 15 Other: See Comments [facility] (20 sources) topiramate; Translations: [TOPIRAMATE] Drug Allergy 12-13-19 17 Other: See Comments [facility] Work Phone: (20 sources) environmental [Other] Propensity to adverse reactions 06-27-19 06 [facility] Work Phone: (1 source) OTHER; Translations: [OTHER] Propensity to adverse reactions (disorder) 06-27-19 06 [facility] Repository Medications Current Medications Medication Drug [...] Drug Class(es) Dates Sig (Normalized) Sig (Original) [id number] 200 actuat albuterol 0.09 mg/actuat metered dose [...] (3 sources) Patient encounter status; Translations: [Other shelter (current) drug therapy] Episodic Other aftercare (1 [...] 13:00-0400 Body temperature 98.2 [degF] Anthony Spear STUDENT TRUCK DRIVER.INSURANCE DEFENSE ATTORNEY Work Phone: [facility] 10-03-2022 13:00-0400 Body weight 124.74 kg Anthony Spear STUDENT TRUCK DRIVER.INSURANCE DEFENSE ATTORNEY Work Phone: [facility] 10-03-2022 13:00-0400 Diastolic blood pressure 75 mm[Hg] Anthony Spear STUDENT TRUCK DRIVER.INSURANCE DEFENSE ATTORNEY Work Phone: [facility] 10-03-2022 13:00-0400 Heart rate 75 /min Anthony Spear STUDENT TRUCK DRIVER.INSURANCE DEFENSE ATTORNEY Work Phone: [facility] 10-03-2022 13:00-0400 Respiratory rate 20 /min Anthony Spear STUDENT TRUCK DRIVER.INSURANCE DEFENSE ATTORNEY Work Phone: [facility] 10-03-2022 13:00-0400 SaO2% (BldA) [Mass fraction] 97 % Anthony Spear STUDENT TRUCK DRIVER.INSURANCE DEFENSE ATTORNEY Work Phone: [facility] 10-03-2022 13:00-0400 Systolic blood pressure 133 mm[Hg] Anthony Spear STUDENT TRUCK DRIVER.INSURANCE DEFENSE ATTORNEY Work Phone: [facility] 2022 11:45-0400 Body temperature 98.2 [degF] Suma Luque STUDENT TRUCK DRIVER.INSURANCE DEFENSE ATTORNEY Work Phone: [facility] 2022 11:45-0400 Body weight 124.83 kg Suma Praisler-Wood STUDENT TRUCK DRIVER.INSURANCE DEFENSE ATTORNEY Work Phone: [facility] 2022 11:45-0400 Diastolic blood pressure 79 mm[Hg] Suma Praisler-Wood STUDENT TRUCK DRIVER.INSURANCE DEFENSE ATTORNEY Work Phone: [facility] 2022 11:45-0400 Heart rate 121 /min Suma Praisler-Wood STUDENT TRUCK DRIVER.INSURANCE DEFENSE ATTORNEY Work Phone: [facility] 2022 11:45-0400 Respiratory rate 18 /min Suma Praisler-Wood STUDENT TRUCK DRIVER.INSURANCE DEFENSE ATTORNEY Work Phone: [facility] 2022 11:45-0400 SaO2% (BldA) [Mass fraction] 93 % Suma Praisler-Wood STUDENT TRUCK DRIVER.INSURANCE DEFENSE ATTORNEY Work Phone: [facility] 2022 11:45-0400 Systolic blood pressure 124 mm[Hg] Suma Praisler-Wood STUDENT TRUCK DRIVER.INSURANCE DEFENSE ATTORNEY Work Phone: [facility] 06-11-2022 11:42-0400 Body height 175.3 cm Toi Escamilla MD Work Phone: [facility] 06-11-2022 11:42-0400 Body weight 126.55 kg Toi Escamilla MD Work Phone: [facility] 06-11-2022 11:42-0400 Diastolic blood pressure 68 mm[Hg] Toi Escamilla MD Work Phone: [facility] 06-11-2022 11:42-0400 Heart rate 60 /min Toi Escamilla MD Work Phone: [facility] 06-11-2022 11:42-0400 SaO2% (BldA) [Mass fraction] 98 % Toi Escamilla MD Work Phone: [facility] 06-11-2022 11:42-0400 Systolic blood pressure 110 mm[Hg] Toi Escamilla MD Work Phone: [facility] 05-22-2022 11:26-0400 Body height 175.3 cm Toi Escamilla MD Work Phone: [facility] 05-22-2022 11:26-0400 Body weight 127.91 kg Toi Escamilla MD Work Phone: [facility] 05-22-2022 11:26-0400 Diastolic blood pressure 64 mm[Hg] Toi Escamilla MD Work Phone: [facility] 05-22-2022 11:26-0400 Heart rate 71 /min Toi Escamilla MD Work Phone: [facility] 05-22-2022 11:26-0400 SaO2% (BldA) [Mass fraction] 99 % Toi Escamilla MD Work Phone: [facility] 05-22-2022 11:26-0400 Systolic blood pressure 104 mm[Hg] Toi Escamilla MD Work Phone: [facility] 04-11-2022 11:48-0500 Body weight 133.36 kg Alisonchristi Jules Work Phone: [facility] 03-31-2022 13:57-0500 Body weight 136.62 kg Makeda Naples STUDENT TRUCK DRIVER.INSURANCE DEFENSE ATTORNEY Work Phone: [facility] 03-31-2022 13:57-0500 Diastolic blood pressure 64 mm[Hg] Makeda Lynn STUDENT TRUCK DRIVER.INSURANCE DEFENSE ATTORNEY Work Phone: [facility] 03-31-2022 13:57-0500 Systolic blood pressure 100 mm[Hg] Makeda Naples STUDENT TRUCK DRIVER.INSURANCE DEFENSE ATTORNEY Work Phone: [facility] 02-22-2022 12:36-0500 Body temperature 99.1 [degF] Jacqueline Boston APRN.INSURANCE DEFENSE ATTORNEY Work Phone: [facility] 02-22-2022 12:36-0500 Body weight 142.7 kg Jacqueline Boston APRN.INSURANCE DEFENSE ATTORNEY Work Phone: [facility] 02-22-2022 12:36-0500 Diastolic blood pressure 70 mm[Hg] Jacqueline Boston STUDENT TRUCK DRIVER.INSURANCE DEFENSE ATTORNEY Work Phone: [facility] 02-22-2022 12:36-0500 Heart rate 84 /min Jacqueline Boston STUDENT TRUCK DRIVER.INSURANCE DEFENSE ATTORNEY Work Phone: [facility] 02-22-2022 12:36-0500 Respiratory rate 18 /min Jacqueline Boston STUDENT TRUCK DRIVER.INSURANCE DEFENSE ATTORNEY Work Phone: [facility] 02-22-2022 12:36-0500 SaO2% (BldA) [Mass fraction] 98 % Jacqueline Boston STUDENT TRUCK DRIVER.INSURANCE DEFENSE ATTORNEY Work Phone: [facility] 02-22-2022 12:36-0500 Systolic blood pressure 122 mm[Hg] Jacqueline Boston STUDENT TRUCK DRIVER.INSURANCE DEFENSE ATTORNEY Work Phone: [facility] 12-10-2021 11:38-0400 Diastolic blood pressure 82 mm[Hg] Viviana Haagen STUDENT TRUCK DRIVER.INSURANCE DEFENSE ATTORNEY Work Phone: [facility] 12-10-2021 11:38-0400 Heart rate 72 /min Viviana Haagen STUDENT TRUCK DRIVER.INSURANCE DEFENSE ATTORNEY Work Phone: [facility] 12-10-2021 11:38-0400 Respiratory rate 18 /min Viviana Haagen STUDENT TRUCK DRIVER.INSURANCE DEFENSE ATTORNEY Work Phone: [facility] 12-10-2021 11:38-0400 SaO2% (BldA) [Mass fraction] 97 % Viviana Marie STUDENT TRUCK DRIVER.INSURANCE DEFENSE ATTORNEY Work Phone: [facility] 12-10-2021 11:38-0400 Systolic blood pressure 124 mm[Hg] Viviana Haagen STUDENT TRUCK DRIVER.INSURANCE DEFENSE ATTORNEY Work Phone: [facility] 10-23-2021 13:30-0400 Diastolic blood pressure 69 mm[Hg] Nurse 5 Work Phone: [facility] 10-23-2021 13:30-0400 Heart rate 71 /min Nurse 5 Work Phone: [facility] 10-23-2021 13:30-0400 Respiratory rate 20 /min Nurse 5 Work Phone: [facility] 10-23-2021 13:30-0400 SaO2% (BldA) [Mass fraction] 100 % Nurse 5 Work Phone: [facility] 10-23-2021 13:30-0400 Systolic blood pressure 128 mm[Hg] Nurse 5 Work Phone: [facility] 10-23-2021 10:04-0400 Body temperature 97.3 [degF] Nurse 5 Work Phone: [facility] 10-18-2021 10:45-0400 Body height 175.3 cm Rossy Olivia HANNA [facility] 10-18-2021 10:45-0400 Body weight 166.92 kg Rossy Olivia HANNA [facility] 09-18-2021 11:36-0400 Body height 175.3 cm Pacc 1 Work Phone: [facility] 09-18-2021 11:36-0400 Body temperature 97.9 [degF] Pacc 1 Work Phone: [facility] 09-18-2021 11:36-0400 Body weight 178.72 kg Pacc 1 Work Phone: [facility] 09-18-2021 11:36-0400 Diastolic blood pressure 72 mm[Hg] Pacc 1 Work Phone: [facility] 09-18-2021 11:36-0400 Heart rate 101 /min Pacc 1 Work Phone: [facility] 09-18-2021 11:36-0400 Respiratory rate 16 /min Pacc 1 Work Phone: [facility] 09-18-2021 11:36-0400 SaO2% (BldA) [Mass fraction] 96 % Pacc 1 Work Phone: [facility] 09-18-2021 11:36-0400 Systolic blood pressure 118 mm[Hg] Pacc 1 Work Phone: [facility] 08-06-2021 11:31-0400 Diastolic blood pressure 84 mm[Hg] Viviana Marie APRN.CNP Work Phone: [facility] 08-06-2021 11:31-0400 Heart rate 92 /min Viviana Marie STUDENT TRUCK DRIVER.INSURANCE DEFENSE ATTORNEY Work Phone: [facility] 08-06-2021 11:31-0400 Respiratory rate 18 /min Viviana Marie STUDENT TRUCK DRIVER.INSURANCE DEFENSE ATTORNEY Work Phone: [facility] 08-06-2021 11:31-0400 SaO2% (BldA) [Mass fraction] 99 % Viviana Marie STUDENT TRUCK DRIVER.INSURANCE DEFENSE ATTORNEY Work Phone: [facility] 08-06-2021 11:31-0400 Systolic blood pressure 126 mm[Hg] Viviana Marie STUDENT TRUCK DRIVER.INSURANCE DEFENSE ATTORNEY Work Phone: [facility] 07-30-2021 08:49-0400 Body height 175.[address] Work Phone: [facility] 07-30-2021 08:49-0400 Body weight 181.[address] Work Phone: [facility] 07-24-2021 11:45-0400 Body height 175.3 cm Cris Vacco STUDENT TRUCK DRIVER.INSURANCE DEFENSE ATTORNEY Work Phone: [facility] 07-24-2021 11:45-0400 Body weight 181.44 kg Cris Vacco STUDENT TRUCK DRIVER.INSURANCE DEFENSE ATTORNEY Work Phone: [facility] 07-15-2021 08:54-0400 Body weight 184.61 kg Donald Pearl MD Work Phone: [facility] 07-15-2021 08:54-0400 Diastolic blood pressure 74 mm[Hg] Donald Pearl MD Work Phone: [facility] 07-15-2021 08:54-0400 Heart rate 78 /min Donald Pearl MD Work Phone: [facility] 07-15-2021 08:54-0400 Respiratory rate 18 /min Donald Pearl MD Work Phone: [facility] 07-15-2021 08:54-0400 SaO2% (BldA) [Mass fraction] 98 % Donald Pearl MD Work Phone: [facility] 07-15-2021 08:54-0400 Systolic blood pressure 118 mm[Hg] Donald Pearl MD Work Phone: [facility] 06-24-2021 13:26-0400 Body temperature 97.2 [degF] Starr Leanna STUDENT TRUCK DRIVER.INSURANCE DEFENSE ATTORNEY Work Phone: [facility] 06-24-2021 13:26-0400 Body weight 188.06 kg Starr Leanna STUDENT TRUCK DRIVER.INSURANCE DEFENSE ATTORNEY Work Phone: [facility] 06-24-2021 13:26-0400 Diastolic blood pressure 82 mm[Hg] Starr Leanna STUDENT TRUCK DRIVER.INSURANCE DEFENSE ATTORNEY Work Phone: [facility] 06-24-2021 13:26-0400 Heart rate 79 /min Starr Leanna STUDENT TRUCK DRIVER.INSURANCE DEFENSE ATTORNEY Work Phone: [facility] 06-24-2021 13:26-0400 Respiratory rate 21 /min Starr Leanna STUDENT TRUCK DRIVER.INSURANCE DEFENSE ATTORNEY Work Phone: [facility] 06-24-2021 13:26-0400 SaO2% (BldA) [Mass fraction] 98 % Starr Leanna STUDENT TRUCK DRIVER.INSURANCE DEFENSE ATTORNEY Work Phone: [facility] 06-24-2021 13:26-0400 Systolic blood pressure 124 mm[Hg] Starr Leanna STUDENT TRUCK DRIVER.INSURANCE DEFENSE ATTORNEY Work Phone: [facility] 06-18-2021 14:15-0400 Body height 168.9 cm Alison Cetin DO Work Phone: [facility] 06-18-2021 14:15-0400 Body weight 187.34 kg Alison Cetin DO Work Phone: [facility] 06-18-2021 14:15-0400 Diastolic blood pressure 76 mm[Hg] Alison Cetin DO Work Phone: [facility] 06-18-2021 14:15-0400 Heart rate 100 /min Alison Cetin DO Work Phone: [facility] 06-18-2021 14:15-0400 Systolic blood pressure 140 mm[Hg] Alison Cetin DO Work Phone: [facility] 05-22-2021 10:59-0400 Body height 175.[address] Work Phone: [facility] 05-22-2021 10:59-0400 Body weight 191.[address] Work Phone: [facility] 05-21-2021 16:11-0400 Body height 173.2 cm Alison Cetin DO Work Phone: [facility] 05-21-2021 16:11-0400 Body weight 191.87 kg Alison Cetin DO Work Phone: [facility] 05-21-2021 16:11-0400 Diastolic blood pressure 84 mm[Hg] Alison Cetin DO Work Phone: [facility] 05-21-2021 16:11-0400 Heart rate 86 /min Alison Cetin DO Work Phone: [facility] 05-21-2021 16:11-0400 Systolic blood pressure 138 mm[Hg] Alison Cetin DO Work Phone: [facility] NEGATED: Highlighted [id number] 10:42-0400 BMI (Body Mass Index) 62.26 kg/m2 Shirley Gabi AT [facility] Work Phone: NEGATED: Highlighted [id number] 10:42-0400 Body weight 185 kg Shirley Gabi AT [facility] Work Phone: NEGATED: Highlighted [id number] 10:42-0400 Body weight 185.07 kg Shirley Gabi AT [facility] Work Phone: NEGATED: Highlighted [id number] 10:42-0400 Height 173 cm Shirley Gabi AT [facility] Work Phone: NEGATED: Highlighted [id number] 10:42-0400 Height 172.72 cm Shirley Ashley AT [facility] Work Phone: Encounters Encounter Date Encounter Type Care Provider Facility Start: 10-03-2022 End: 10-03-2022 ambulatory TOI Bolton FRANCINE Facility:[facility] Start: 10-03-2022 End: 10-03-2022 Office outpatient visit 25 minutes Anthony Spear APRN.INSURANCE DEFENSE ATTORNEY Work Phone: [facility] Procedures Date Procedure Procedure Detail Performing Clinician Start: 03-07-2022 End: 03-07-2022 Mammography Bulk Order Provider Start: 02-22-2022 STREP A MOLECULAR (POC) Tri Johnston MA Start: 05-01-2021 Adult depression screening assessment Alison Jules DO Work Phone: Start: 09-27-2019 End: 09-27-2019 Blood pressure screening not performed - reason not given Sri Duran STUDENT TRUCK DRIVER-INSURANCE DEFENSE ATTORNEY Work Phone: Start: 09-27-2019 End: 09-27-2019 BMI documented as above normal parameters - follow-up documented Sri Duran STUDENT TRUCK DRIVER-INSURANCE DEFENSE ATTORNEY Work Phone: Start: 09-27-2019 End: 09-27-2019 Documentation of current medications Sri Duran STUDENT TRUCK DRIVER-INSURANCE DEFENSE ATTORNEY Work Phone: Start: 09-27-2019 End: 09-27-2019 Pain assessment documented as positive - follow-up documented Sri Duran STUDENT TRUCK DRIVER-INSURANCE DEFENSE ATTORNEY Work Phone: Start: 09-27-2019 End: 09-27-2019 Tobacco non-user Sri Duran STUDENT TRUCK DRIVER-INSURANCE DEFENSE ATTORNEY Work Phone: NEGATED: Highlighted rowStart: 09-27-2019 End: 09-27-2019 Documentation of current medications Shirley Ashley AT Plan of Treatment Date Care Activity Detail Author Start: 08-07-2024 HPV TESTING HPV TESTING [facility] Start: 08-07-2024 PAP TESTING PAP TESTING [facility] Start: 06-28-2023 ANNUAL PCP TEAM CHRONIC DISEASE VISIT ANNUAL PCP TEAM CHRONIC DISEASE VISIT [facility] Start: 06-12-2023 ANNUAL PCP TEAM CHRONIC DISEASE VISIT ANNUAL PCP TEAM CHRONIC DISEASE VISIT [facility] Start: 06-06-2023 ANNUAL PCP TEAM CHRONIC DISEASE VISIT ANNUAL PCP TEAM CHRONIC DISEASE VISIT [facility] Start: 05-23-2023 ANNUAL PCP TEAM CHRONIC DISEASE VISIT ANNUAL PCP TEAM CHRONIC DISEASE VISIT [facility] Start: 03-07-2023 Mammography [facility] Start: 01-18-2023 ANNUAL PCP TEAM CHRONIC DISEASE VISIT ANNUAL PCP TEAM CHRONIC DISEASE VISIT [facility] Start: 12-10-2022 ANNUAL PCP TEAM CHRONIC DISEASE VISIT ANNUAL PCP TEAM CHRONIC DISEASE VISIT [facility] Start: 10-10-2022 Covid-19 Vaccine () Covid-19 Vaccine () [facility] Start: 10-10-2022 Influenza vaccination [facility] Start: 08-06-2022 ANNUAL PCP TEAM CHRONIC DISEASE VISIT ANNUAL PCP TEAM CHRONIC DISEASE VISIT [facility] Start: 07-15-2022 ANNUAL PCP TEAM CHRONIC DISEASE VISIT ANNUAL PCP TEAM CHRONIC DISEASE VISIT [facility] Start: 06-16-2022 End: 08-16-2022 Hemoglobin A1c in Blood HGB A1C Lab Routine Hyperglycemia Expected: 06/16/2022, Expires: 08/16/[address] [facility] Work Phone: Immunizations Immunization Date Immunization Notes Care Provider Fa cility 11-07-2020 influenza, injectabl e, quadrivalent, contains preservative Alison Jules DO Work Phone: [facility] 11-07-2020 influenza virus vacc ine, unspecified formulation Screen Wstr [facility] 04-26-2020 COVID-19 vaccine, ag e 12+ yr (PFIZER-BIONTECH - PURPLE TOP) Alison Bairdin DO Work Phone: [facility] 04-05-2020 COVID-19 vaccine, ag e 12+ yr (PFIZER-BIONTECH - PURPLE TOP) Alison Bairdin DO Work Phone: [facility] 11-03-2019 influenza, injectabl e, quadrivalent, contains preservative Alisonchristi Bairdin DO Work Phone: [facility] 06-28-2013 tetanus and diphther ia toxoids, adsorbed, preservative free, for adult use (2 Lf of tetanus toxoid and 2 Lf of diphtheria toxoid) Alison Jules DO Work Phone: [facility] Payers Date Payer Category Payer Medicaid [id number] 2022 Medicaid [id number] 2020 Medicaid [employer] [id number] 2020-Present [phone] [address] [place] [address] Medicaid [id number] 2020 Medicaid [id number] 2020 Medicaid [id number] Social History Date Type Detail Facility Start: 09-27-2019 End: 09-27-2019 Assertion Unknown if ever smoked [facility] Work Phone: Start: 07-19-2015 End: 09-18-2021 Tobacco smoking status NHIS Ex-smoker [facility] Start: 03-19-1990 End: 02-09-2014 History of tobacco use Current smoker [facility] Start: 03-19-1990 End: 02-09-2014 History of tobacco use Cigarette Smoker [facility] Start: 07-19-2015 End: 02-22-2022 Cigarettes smoked current (pack per day) - Reported 0.25 [facility] Start: 07-19-2015 End: 09-18-2021 Tobacco use and exposure Smokeless tobacco non-user [facility] Start: 05-21-2021 End: 02-22-2022 Alcohol intake Current drinker of alcohol (finding) [facility] Start: 04-23-2021 End: 01-17-2022 History SDOH Alcohol Frequency 2 [facility] Start: 04-23-2021 End: 01-17-2022 History SDOH Alcohol Std Drinks 1 [facility] Start: 03-19-2018 History SDOH Alcohol Comment rarely [facility] Start: 04-23-2021 End: 01-17-2022 History SDOH Social Connections Phone 5 [facility] Start: 04-23-2021 End: 01-17-2022 History SDOH Social Connections Meetings 3 [facility] Start: 04-23-2021 End: 01-17-2022 History SDOH Social Connections Living 8 [facility] Start: 04-23-2021 History SDOH Financial 4 [facility] Start: 06-24-2019 Education 21 [facility] Start: 1980 Sex Assigned At Female [facility] Start: 05-11-2021 End: 12-10-2021 Exposure to SARS-CoV-2 (event) Not sure [facility] Start: 06-14-2021 End: 06-24-2021 Exposure to SARS-CoV-2 (event) Yes [facility] Start: 09-18-2021 Tobacco Comment quit in 05/15 [facility] Start: 01-17-2022 History SDOH Alcohol Std Drinks 0 [facility] Start: 01-17-2022 End: 02-22-2022 Social connection and isolation panel [facility] Are you now , , , , never or living with a partner? Living with partner [facility] How often to you hav e a drink containing alcohol? Never [facility] How many standard drinks containing alcohol do you have on a typical day? Patient does not drink [facility] How hard is it for y ou to pay for the very basics like food, housing, medical care, and heating Somewhat hard [facility] Do you feel stress - tense, restless, nervous, or anxious, or unable to sleep at night because your mind is troubled all the time - these days [OSQ] Not at all [facility] (I/We) worried wheth er (my/our) food would run out before (I/we) got money to buy more. Never true [facility] At any time in the p ast 12 months, were you homeless or living in long term [including now]? No [facility] Start: 09-20-2019 Gender identity Identifies as female gender (finding) [facility] Start: 09-20-2019 Sexual orientation Heterosexual (finding) [facility] Clinical Notes 12-07-2017 to 10-03-2022 Patient InstructionsAnthony Spear APRN.FATEMEH - 10/03/2022 1:04 PM EDTTelephone Encounter - Roscoejason Chaparro Diane - 09/30/2022 2:26 PM EDTPraisler-Suma Alas APRN.FATEMEH - 2022 12:00 PM EDT Note Date & Type Note Facility 10-03-2022 Note HNO ID: [id number] Author: Anthony Spear APRN.INSURANCE DEFENSE ATTORNEY Service: ? Author Type: Nurse Practitioner Type: [...] presents with: Cough: Chest congestion x1 wegunjan, [facility] 09/30 PAST MEDICAL HISTORY Diagnosis Date Autoimmune [...] midline. No phar (more content not included)... [facility] 10-03-2022 Instructions Anthony Spear APRN.[facility] - 10/03/2022 1:17 PM EDT RESPIRATORY [...] by coughs, sneezes, and direct contact, especially swhq-ru-unbp. A respiratory tract infection usually clears up [...] F (39 C). documented in this encounter [facility] 10-03-2022 History of Present illness Narrative Subjective [...] of care. This note was generated using Scytl software. It may contain errors in wording, punctuation, or spelling. Anthony Spear APRN.INSURANCE DEFENSE ATTORNEY documented in this encounter [facility] 09-30-2022 Miscellaneous Notes See nurse triage Can [...] review chart and send appropriate prescriptions to [facility]. 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 Marietta Harman LPN documented in this encounter [facility] 2022 Note HNO ID: [id number] Author: Suma Luque APRN.INSURANCE DEFENSE ATTORNEY Service: ? Author Type: Nurse Practitioner Type: [...] Findings: No e (more content not included)... [facility] 2022 History of Present illness Narrative [...] Suma Luque APRN.CNP documented in this encounter [facility] 2022 Instructions Suma Luque APRN.CNP - 2022 [...] of proper treatment. documented in this encounter [facility] 06-27-2022 Note HNO ID: [id number] Author: Anthony Dawson MD Service: ? Author Type: Physician Type: Progress Notes Filed: 06/29/2022 12:48 PM Note Text: Chief Complaint Patient presents with: URI HPI Raul Fleming is a 41 year old female who presents here today for possible sinus infection. When did it start? 06/04/2022; started with allergies after coming [place] but has been sick since; initially develops [...] Health Maintenance List (more content not included)... [facility] 06-16-2022 Miscellaneous Notes Lasb ok except sugar was mildly up. Recheck a1c documented in this encounter [facility] 06-11-2022 Note HNO ID: [id number] Author: Toi Escamilla MD Service: ? Author Type: Physician Type: Progress Notes Filed: 06/11/2022 12:28 PM Note Text: Patient presents with: Headache Dizziness HPI: Patient presents today for office visit for dizziness. Yesterday after she got off work she decided to have Playroll drink. Got a headache and didn't feel [...] see her back this year. No syncope. [place] like she could have during her spell. [...] Skin color, t (more content not included)... [facility] 06-11-2022 History of Present illness Narrative Patient presents with: Headache Dizziness HPI: Patient presents today for office visit for dizziness. Yesterday after she got off work she decided to have Playroll drink. Got a headache and didn't feel [...] see her back this year. No syncope. [place] like she could have during her spell. [...] IRON + TIBC 4. SVT- See cardiology Toi Escamilla RTO in six weeks and prn. documented in this encounter [facility] 06-05-2022 Note HNO ID: [id number] Author: Toi Escamilla MD Service: ? Author [...] visit. Either the patient or their legal customer service representative teacher has been informed of the risks and benefits of -- and alternatives to -- treatment through a remote evaluation and consents to proceed with the evaluation remotely. Had been on a cruise. Came back to [place] and started with allergy symptoms. Had developed [...] than 50% o (more content not included)... [facility] 06-05-2022 History of Present illness Narrative [...] visit. Either the patient or their legal customer service representative teacher has been informed of the risks and benefits of -- and alternatives to -- treatment through a remote evaluation and consents to proceed with the evaluation remotely. Had been on a cruise. Came back to [place] and started with allergy symptoms. Had developed [...] with more than 50% of the total jddx-ii-ulim time of the visit in counseling / coordination of care. documented in this encounter [facility] 05-22-2022 Note HNO ID: [id number] Author: Toi Escamilla MD Service: ? Author [...] CYCLOBENZAPRINE 10 MG TABLET Toi Escamilla MD [facility] 05-22-2022 History of Present illness Narrative [...] Toi Escamilla MD documented in this encounter [facility] 05-21-2022 Miscellaneous Notes Patient has been identified by name and date of : Yes Patient phones for refill(s): Requested Prescriptions Pending Prescriptions Disp Refills pregabalin (LYRICA) 75 mg capsule 60 capsule 5 Sig: Take 1 capsule by mouth twice daily for 30 days. Date of last office visit in primary care: 12/10/2021 Please advise. Thank you. Anna Myles LPN documented in this encounter [facility] 05-19-2022 Miscellaneous Notes The following approved medications have been transmitted electronically. Requested Prescriptions Signed Prescriptions Disp Refills norethindrone (AYGESTIN) 5 mg tablet 14 tablet 0 Sig: Take 1 tablet by mouth twice daily for 7 days. Authorizing Provider: MAKEDA SMITH Pharmacy Information Pharmacy Address [phone] [place] [address] Sarah Meredith RN Please let the patient [...] COIP. Patient would like [facility] [place] [facility] documented in this encounter [facility] 04-11-2022 Note HNO ID: [id number] Author: Alison Jules, DO Service: ? Author [...] 44.48 kg/(m2) Total weight loss: 100 lbs [place] weight: 76.8 kg (169 lb 5 oz) Excess weight: 101.9 kg (224 lb 11 oz) % of excess body weight lost: 178.7 kg (394 lb) (44.44 % of excess weight loss) COMPLICATIONS SINCE LAST VISIT?: NONE INTERVAL HISTORY Here for postop visit, 6 months. DIET INTAKE: tolerates Phase V diet, recently seen by the java sdet, recommended increasing the daily intake of protein, [...] COMORBIDITIES: GERD GERD Requiring medication PHYSICAL EXAM: [facility] 03/15/2022 Assessment 41 year old female [...] to excess calories (HCC) SVT (supraventricular tachycardia) ([facility]) Palpitations Chest pain SOB (shortness of breath) [...] changes and inc (more content not included)... [facility] 04-11-2022 History of Present illness Narrative [...] 44.48 kg/(m^2) Total weight loss: 100 lbs [place] weight: 76.8 kg (169 lb 5 oz) Excess weight: 101.9 kg (224 lb 11 oz) % of excess body weight lost: 178.7 kg (394 lb) (44.44 % of excess weight loss) COMPLICATIONS SINCE LAST VISIT?: NONE INTERVAL HISTORY Here for postop visit, 6 months. DIET INTAKE: tolerates Phase V diet, recently seen by the java sdet, recommended increasing the daily intake of protein, supplementing with protein powder or a protein drink DAILY SUPPLEMENTS: Yes Calcium: calcium soft chews three times a day. Multivitamin & Minerals: bariatric LocAsian + 45 mg iron daily Iron Supplement: [...] to excess calories (HCC) SVT (supraventricular tachycardia) ([facility]) Palpitations Chest pain SOB (shortness of breath) [...] RDN note REFERRALS: N/A LABS: Today: See [facility] Orders I spent a total of 35 minutes on the date of the service which included completing clinical documentation, obtaining and/or reviewing separately obtained history, counseling and educating the patient/family/caregiver, and ordering medications, tests, or procedures. Medical Decision Making: Medical Decision Making Level: 1 - N/A Alison Jules DO documented in this encounter [facility] 04-02-2022 Miscellaneous Notes Patient has been identified by name and date of : Yes Requested Prescriptions Pending Prescriptions Disp Refills loratadine (CLARITIN) 10 mg tablet 90 tablet 3 Sig: Take 1 tablet by mouth once daily as needed. RX INSTRUCTIONS: Patient aware RX will be sent to pharmacy. No need to notify patient. Concha Moreno LPN documented in this encounter [facility] 03-31-2022 Note HNO ID: [id number] Author: Makeda Smith APRN.INSURANCE DEFENSE ATTORNEY Service: ? 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 Fleming, We are pleased to [...] report will be kept on file at [facility] as part of your permanent medical record and are available for your continuing care. Thank you for allowing us to help in meeting your health care needs. Sincerely, Dr. Blackburn Interpreting Radiologist [facility] (Normal over 40) documented in this encounter [facility] 03-07-2022 Note HNO ID: [id number] Author: RT Cherie(R) Service: ? Author Type: [...] RT Cherie(R) March 07, 2022 9:51 AM [facility] 03-07-2022 History of Present illness Narrative [...] 2022 9:51 AM documented in this encounter [facility] 02-24-2022 Note HNO ID: [id number] Author: Sherri Collazo RD Service: ? Author Type: Registered Dietitian Type: Progress Notes Filed: 02/24/2022 9:54 AM Note Text: The [facility] Nutrition Therapy: Virtual Consult - Re-assessment This [...] a Day multivitamin capsule and calcium citrate 9960-3676 mg/day(3 chews per day) 5. Exercise: Aim [...] 7. Slowly increase your calories to goal 4946-0080 per day Nutrition Monitoring AND Evaluation: BMI < 40 Need for Follow up: 1-2 months, [phone] PROGRESS: Interval History: Patient presents for follow [...] Rate: 2128 Energy needs for weight loss 2695-3903 (10-15 delicia/kg current weight) Protein needs: 92 [...] learning: None Likelihood (more content not included)... [facility] 02-22-2022 Note HNO ID: [id number] Author: Jacqueline Boston APRN.INSURANCE DEFENSE ATTORNEY Service: ? Author Type: Nurse Practitioner Type: [...] Patient agreeable to treatment plan. Jacqueline Boston APRN.[facility] 02-22-2022 History of Present illness Narrative CC: [...] Jacqueline Boston APRN.FATEMEH documented in this encounter [facility] 01-20-2022 Miscellaneous Notes Letter done in [facility] Leigh Morel MD Patient calling with request [...] Roxie Torres RN documented in this encounter [facility] 01-18-2022 Note HNO ID: [id number] Author: Leigh Morel MD Service: ? Author Type: Physician Type: Progress Notes Filed: 01/18/2022 11:34 AM Note Text: Nirmatrelvir/Ritonavir (Paxlovid) Eligibility and Patient Discussion [facility] Formulary Restriction Criteria: Adult outpatients 18 years [...] Morel MD January 18, 2022 11:29 AM [facility] 01-18-2022 Note HNO ID: [id number] Author: Leigh Morel MD Service: ? Author [...] PACK(EUA) Follow up prn Leigh Morel MD [facility] 01-18-2022 History of Present illness Narrative Nirmatrelvir/Ritonavir (Paxlovid) Eligibility and Patient Discussion [facility] Formulary Restriction Criteria: Adult outpatients 18 years [...] Leigh Morel MD documented in this encounter [facility] 01-18-2022 Instructions Leigh Morel MD - 01/18/2022 11:25 AM EST FACT SHEET FOR PATIENTS, PARENTS, AND CAREGIVERS EMERGENCY USE AUTHORIZATION (EUA) OF PAXLOVID FOR CORONAVIRUS DISEASE 2019 (COVID-19) You are being given this Fact Sheet because your healthcare provider believes it is necessary to provide you with PAXLOVID for the treatment of kuyn-mr-eodschog coronavirus disease (COVID-19) caused by the SARS-CoV-2 [...] virus. COVID-19 illnesses have ranged from very stup-yy-rehfgz, including illness resulting in . While information [...] is an investigational medicine used to treat ruaz-jf-tvuluzpv COVID-19 in adults and children [12 years [...] of using PAXLOVID to treat people with cwuy-nu-qzbniahs COVID-19. The FDA has authorized the emergency use of PAXLOVID for the treatment of kcbg-yx-iejbnvdz COVID-19 in adults and children [12 years [...] the medicines you take, including prescription and fcmg-jnc-chhgldh medicines, vitamins, and herbal supplements. Some medicines [...] oral midazolam Apalutamide Carbamazepine, phenobarbital, phenytoin Rifampin Florence s Wort (hypericum perforatum) Taking PAXLOVID with [...] (remdesivir) is FDA-approved for the treatment of ubhg-av-pnfkzfxz COVID-19 in certain adults and children. Talk with your doctor to see if Veklury is appropriate for you. Like PAXLOVID, FDA may also allow for the emergency use of other medicines to treat people with COVID-19. Go to https://www.fda.gov/emergency-prepar edness-andresponse/yuo-bsnxk-wjnqrmz lrq-krl-romdmn-framework/emergency-u se-authorization for information on the emergency use [...] if I am or ? There is anode adjuster treating women or mothers with PAXLOVID. For [...] not go away. Report side effects to [employer] at www.Post-i.gov/SensiGen or call 2-487-GSM9689 or you can report side effects to [employer] at the contact information provided below. Website Fax number Telephone number [place] How should I store PAXLOVID? Store PAXLOVID [...] (EUA). The EUA is supported by a Concrete Mixer Operator Helper of Health and Human Service (HHS) declaration that circumstances exist to justify the emergency use of drugs and biological products during the COVID-19 pandemic. PAXLOVID for the treatment of kjpx-nm-bxwidbuf COVID-19 in adults and children [12 years [...] telephone number provided below. Website Telephone number www.MFULT62ppftCz.com (5-820-X58-HMEC) You can also go to www.Follica or call for more information. Pfizer Distributed by [employer] Division [place] [address] [id number] Revised: 26 April 2021 documented in this encounter [facility] 01-17-2022 Miscellaneous Notes Noted Leigh Morel MD Patient had trouble with insurance with [employer]. Scheduled patient with Dr. Morel tomorrow [...] to her PCP. documented in this encounter [facility] 01-10-2022 Note HNO ID: [id number] Author: Santana Flores RD Service: ? Author Type: Registered Dietitian Type: Progress Notes Filed: 01/10/2022 2:36 PM Note Text: Patient did not attend today's appointment. Santana Flores RD [facility] 01-10-2022 History of Present illness Narrative Patient did not attend today's appointment. Santana Flores RD documented in this encounter [facility] 01-06-2022 Miscellaneous Notes Follow up call placed to patient, no answer phone; left voice message with my call back phone number. BMI Incoming Patient Nursing Line Call Summary: Situation/Concerns:Patient needs a refill on Zofran Background/Duration of event: N/A Assessment/Subjective symptoms: as noted above. Recommendation/How message sent to provider/nurse:Lianne via Telephone Encounter. BULL Aviles documented in this encounter [facility] 12-10-2021 Note HNO ID: [id number] Author: Viviana Marie APRN.INSURANCE DEFENSE ATTORNEY Service: ? Author Type: Nurse Practitioner Type: [...] needed for worsening/no improvement. Viviana Marie APRN.CNP [facility] 12-10-2021 Miscellaneous Notes Rx faxed to [facility]. Td Stiles LPN Script was for magic mouthwash? Do they have that there and what is in their formulation? I printed a new script that we can send over and see if they have that available. Viviana Marie APRN.FATEMEH [place], a pharmacy assistant at [facility] calling for clarification of recent script received today for diphenhydramine, hydrocortisone lidocaine, nystatin oral medication. She states they do not have hydrocortisone lidocaine . Also asking for clarification on listed amounts in relation to ingredients: 180 mL: 120m mL: 30 mL. Please contact pharmacy to discuss. Thank you. documented in this encounter [facility] 12-10-2021 Instructions Viviana Marie APRN.FATEMEH - 12/10/2021 12:11 PM EDT Start the magic mouthwash as needed. Start the valtrex -- 4 tablets by mouth twice daily X 1 day -- then start 1 tablet by mouth daily thereafter. Triamcinolone ointment to the lip twice daily for up to two weeks. Let me know if no better/worsening. documented in this encounter [facility] 12-10-2021 History of Present illness Narrative This [...] Viviana Marie APRN.FATEMEH documented in this encounter [facility] 11-18-2021 Miscellaneous Notes The following approved medication requests have been transmitted electronically. Requested Prescriptions Signed Prescriptions Disp Refills pregabalin (LYRICA) 75 mg capsule 60 capsule 5 Sig: Take 1 capsule by mouth twice daily for 30 days. Authorizing Provider: Justin PONCE PA-C Last OV: 08/06/21 Next OV: None Last Rx: 04/22/21 #60 w/5. Michelle Ashby Ma documented in this encounter [facility] 11-07-2021 Miscellaneous Notes BMI SPECIALTY CARE COORDINATION [...] needs or concerns. documented in this encounter [facility] 10-30-2021 Note HNO ID: [id number] Author: Milo Lauren MD Service: ? Author Type: Fellow Type: Progress Notes Filed: 11/06/2021 5:33 PM Note Text: General Surgery Postoperative Clinic Visit Name: Raul Fleming This visit was performed virtually via [employer] DBS technology due to the COVID-19 epidemic as [...] 11/04/2021). Patient Active Problem List Morbid obesity ([facility]) Degenerative joint disease involving multiple joints Limited mobility History of gastroesophageal reflux (GERD) Morbid obesity due to excess calories ([facility]) SVT (supraventricular tachycardia) ([facility]) Palpitations Chest pain SOB (shortness of breath) Cervical radiculopathy Class 3 severe obesity due to excess calories without serious comorbidity with body mass index (BMI) of 50.0 to 59.9 in adult ([facility]) Mild intermittent asthma Gastroesophageal reflux disease without esophagitis Lumbar sprain Migraines Seasonal allergies Plantar fasciitis Other joint derangement, not elsewhere classified, ankle and foot Other enthesopathy of ankle and tarsus Internal derangement of knee Resolved Hospital Problems No resolved problems to display. [facility] 10-30-2021 History of Present illness Narrative [...] to excess calories (HCC) SVT (supraventricular tachycardia) ([facility]) Palpitations Chest pain SOB (shortness of breath) [...] problems to display. documented in this encounter [facility] 10-26-2021 Miscellaneous Notes Images from the original [...] Akshat Pinto MD PhD [facility] Clinical Fellow Advanced Laparoscopic Surgery and Flexible Surgical Endoscopy [facility] [address] [place] [address] [email or web address] documented in this encounter [facility] 10-23-2021 Nurse Note Raul Fleming Reason for therapy: Dehydration, and Banana bag Ordering Physician: Dr. Schmitz Supervising/Billing Physician: Dr. DAV Morgan Medications administered: [id number] x1, and banana bag 1000cc x 1 (See MAR and flowsheets for rates) Start: 1015AM / Stop: [id number] Infusion tolerated well: Yes IV: See avatar [...] need for follow-up documented in this encounter [facility] 10-22-2021 Miscellaneous Notes I cannot add patient to the infusion schedule for tomorrow 10/23 at 10am without the medication orders. Can you please place the orders? Thanks, Gabrielle Bran RN documented in this encounter [facility] 10-22-2021 Miscellaneous Notes [facility] can not see this patient as it is out of territory, we do not travel to [place]. Alexa Moura Transitional Care Program - Intake Template - for interface Date Referral Received: 10/22/2021 Referral Source: CC Physician office TC Program: UD - 4C Hospital Discharge Date: n/a [facility] RN Name: n/a Date of : 1980 Age: [age] year old PCP: Toi Escamilla MD Visit address from [facility]: [address] [place] [address] Name of Physician who gave the order: DIONICIO FAITH Other services ordered: None Primary Insurance Company: Payor: [employer] MEDICAID / Plan: [employer] MEDICAID / Product Type: Medicaid / Primary Insurance ID Number: [id number] documented in this encounter [facility] 10-21-2021 Miscellaneous Notes BMI SPECIALTY CARE COORDINATION [...] Denies fever,pain, nausea, vomit. 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 Confirmed 10/23/21 [id number] appt. documented in this encounter [facility] 10-18-2021 Note HNO ID: [id number] Author: Rossy Baker RD Service: ? Author [...] loss (average 6-9% at 1 month) Blog: [employer] The Bariatric AND Metabolic Eldred at [facility] has 2 virtual support group meetings: This is the Nitro PDF link with meeting number that will be used for all of the THURSDAY virtual support groups this year, on the Thursday of each month 5:30-6:30PM Join from the meeting link [email or web address] Join by meeting number Meeting number (access code): [phone] Meeting password: [email or web address] The schedule with dates, times, topics, and facilitators can be found here: [email or web address] [email or web address]/patient-[email or web address]/a fte r-surgery This is the Nitro PDF link with meeting number that will be used for the Open Discussion ( Food for Thought ) support group on the First Thursday of each month 5:30-6:30PM Join from the meeting link [email or web address] Join by meeting number Meeting number (access code): [phone] Meeting password: [email or web address] Hope to see you there! Nutrition Monitoring AND Evaluation: Advance diet to phase 3 by next visit Criteria: patient recall Need for Follow up: 1 month post op Appointment Start Time: 9:30 AM Appointment End Time: 10:30 AM Time Spent on Consult: 60 minutes - Group Rossy Baker MS,RD,CSOWM,LD [facility] 10-18-2021 History of Present illness Narrative [...] loss (average 6-9% at 1 month) Blog: [employer] The Bariatric & Metabolic Eldred at [facility] has 2 virtual support group meetings: This is the Nitro PDF link with meeting number that will be used for all of the THURSDAY virtual support groups this year, on the Thursday of each month 5:30-6:30PM Join from the meeting link [email or web address] Join by meeting number Meeting number (access code): [phone] Meeting password: [email or web address] The schedule with dates, times, topics, and facilitators can be found here: [email or web address] [email or web address]/a fter-surgery This is the Nitro PDF link with meeting number that will be used for the Open Discussion ( Food for Thought ) support group on the First Thursday of each month 5:30-6:30PM Join from the meeting link [email or web address] Join by meeting number Meeting number (access code): [phone] Meeting password: [email or web address] Hope to see you there! Nutrition Monitoring & Evaluation: Advance diet to phase 3 by next visit Criteria: patient recall Need for Follow up: 1 month post op Appointment Start Time: 9:30 AM Appointment End Time: 10:30 AM Time Spent on Consult: 60 minutes - Group Rossy Baker MS,RD,CSOWM,LD documented in this encounter [facility] 10-09-2021 Note HNO ID: [id number] Author: Dionicio Faith MD Service: ? Author [...] LAPAROSCOPIC GASTRIC RESTRICTIVE SURG W/ BYPASS AND RADAH-EN-Y 150CM OR LESS Pre-surgical weight: 178.7 kg [...] (GERD) Morbid obesity due to excess calories ([facility]) SVT (supraventricular tachycardia) ([facility]) Palpitations Chest pain SOB (shortness of breath) [...] AND Bariatric Surgery Fellow Bariatric AND Metabolic Eldred [facility] 10-09-2021 History of Present illness Narrative Metabolic [...] & Bariatric Surgery Fellow Bariatric & Metabolic Eldred [facility] documented in this encounter [facility] 10-09-2021 Miscellaneous Notes Patient reports redness and itching present around all lap sites on abdomen. May use cold compress and hydrocortisone cream around glue sites. Confirmed appt with surgical team this afternoon. documented in this encounter [facility] 10-09-2021 Note Patient Outreach (IN TMMN) -------- RAUL FLEMING ([id number]) 1980 F Date Time Provider Department 10/09/21 [...] for screening mammogram for breast cancer [Z12.31] Order(s):[facility] [[id number]] Order #: [id number] FUTURE Prescriptions as of 10/14/2021 - enoxaparin [...] Encounter Status:Closed by LORENE HAHN on 10/14/21 [facility] 10-04-2021 Miscellaneous Notes RN called [facility] spoke with Pharmacist, Paige Sanchez provided order for Lovenox written by Lexi Benjamin MD. RN called patient and provided update. Patient verbalized understanding to notify BMI if unable to start Lovenox today. Confirmed has BMI help card numbers to call if has any further needs. documented in this encounter [facility] 10-04-2021 Miscellaneous Notes BMI SPECIALTY CARE COORDINATION [...] MD to resend electronic script to [facility] so patient may begin Lovenox today. Patient verbalized understanding. CPAP USE: N/A Remind patient of post op appt. Reminded patient of how to reach [facility] or their surgeons office. Patient reminded to seek medical attention if they develop chest pain, a sudden onset of shortness of breath or persistent pain in the calf of their legs - BEST TO ALWAYS present to [facility] hospital where you had your surgery Patient verbalized understanding of all advice and instructions given. COVID-19 Symptoms: none . Lianne Welch RN documented in this encounter [facility] 10-04-2021 History of Present illness Narrative TCM Home Visit Referral Source of Stratification: [facility] Admission Status: Discharged Readmission Risk Score: [...] PROGRAM Provider Action/FYI: TCM Initial Hospital Discharge [facility] on 10-03-21. PCP Dr Escamilla - saida make owe f/u appoitment CYNDI Baker/Gen Surg 10-18-21 Patient states she is doing okay, just really sore Denies chest pain, sob, fever or chill Lap sites LEMON GROWER, skin intact, keep clean and dry, no S/S of infection Rates pain as 4 while still, increases to 6 with activity Taking Oxycodone for pain, Tolerating fluids well, going to try a protein shake today Encouraged patient to Review: Discharge Instructions for Bariatric Surgery Reviewed medications - on phone with Pharmacy to find out about her Lovenox SUMMARY: Pt discharged from [facility] on 10-03-21. Admitted for: Obesity, LAPAROSCOPIC GASTRIC RESTRICTIVE SURG W/ BYPASS & RADHA-EN-Y Contact made with patient: Yes Hi my name is Esther Ya RN and I am calling from the [facility] on behalf of your PCP, Toi Escamilla [...] like to speak with a social work garment steamer to help give you support for any [...] I will send your request to a operations scheduler who will contact and assist you with [...] the way if possible). Esther Ya RN Digital Marketing Analyst documented in this encounter [facility] 09-24-2021 Miscellaneous Notes Patient preparing for RYGB [...] 64 ounces fluids. documented in this encounter [facility] 09-18-2021 Instructions Mary Moura APRN.INSURANCE DEFENSE ATTORNEY - 09/18/2021 11:42 AM EDT PATIENT PREOPERATIVE INSTRUCTIONS Naresh Schmitz MD has scheduled you for your procedure at this surgery center: [facility] Scheduling Office: [phone] --[address] [place] [address]. Please read below carefully for your personalized [...] Procedures: - YOU MUST HAVE A RESPONSIBLE EMBEDDED SYSTEMS SOFTWARE DEVELOPER TAKE YOU HOME. A FIELD HAULER OR PARCEL POST TRUCK DRIVER CANNOT BE MADE A RESPONSIBLE EMBEDDED SYSTEMS SOFTWARE DEVELOPER. - We recommend that a responsible person [...] call the Thursday before. Your surgeon s operations scheduler will tell you what time to call the office. - If you have not reached the departmental operations scheduler by 5 P.M., call [phone] after 5 P.M. the day before your surgery. Please be aware that emergency situations arise, which may delay or change your surgical time. If this happens, we will notify you as soon as possible and regret any inconvenience. If you already have an Advance Directive, please fax a copy to [phone] or email to for it to be [...] Mary Moura APRN.FATEMEH documented in this encounter [facility] 09-18-2021 History and physical note Images from [...] Adult (Hcc) Cervical Radiculopathy Svt (Supraventricular Tachycardia) ([facility]) Palpitations Chest Pain Sob (Shortness of Breath) Degenerative Joint Disease Involving Multiple Joints Limited Mobility History of Gastroesophageal Reflux (Gerd) Morbid Obesity Due to Excess Calories ([facility]) COVID-19 Immunization Status Overdue - COVID-19 VACCINE [...] her obesity and related complications to the [facility] Bariatric and Metabolic Eldred. Initial program weight: 368 lbs Last visit [...] meal. Exercise: She has been using an [employer] program Stress: Stable - lost her car in February. Struggling with transportation Sleep: no insomnia, snoring, or SDB. REVIEW OF SYSTEMS: General: No weight loss, malaise or fevers. Neurological: Positive for: headaches (+migraines, rx as needed, rarely used). Negative for: cerebral palsy, BENDER HAND tumor, multiple sclerosis, Parkinson's disease, peripheral neuropathy, seizures, TIA and strokes. Respiratory: +former smoker Positive for: asthma (rx as needed). Cardiovascular: Positive for: arrhythmia (hx palpitations, SVT, no current issues or tx) Negative for: anticoagulation therapy, atrial fibrillation, CAD, chest pain, CHF, congenital heart defect, DVT/PE, hyperlipidemia, hypertension, recent ME, murmur/valvular heart disease, open heart surgery and valve surgery. GI: See HPI. Positive for: GERD (on rx) Negative for: abdominal pain, dysphagia, hepatitis, irritable bowel syndrome, inflammatory bowel disease, liver disease, nausea, pancreatitis, vomiting and ETOH >2 drinks/day. : No history of dysuria, frequency or incontinence, stones or chronic kidney disease. No difficulty urinating, nocturia > 1 time per night or hematuria. 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 [...] or younger Non-male patient STOP-Bang Score: 3 [id number] Score: Age: <65 Sex: female CHF history: No Hypertension history: No Stroke/TIA/thromboembolism history: No Vascular disease history: No Diabetes history: No [id number] Score: 1 ARISCAT Score: Age: <=50 Preoperative [...] and consent discussed: yes. Patient / Responsible Constitution Party agrees to proceed: yes Patient / [...] AM PAGER/CONTACT #: documented in this encounter [facility] 09-18-2021 Miscellaneous Notes Last office visit 08/06/2021. Patient phones requesting refills as follows: Requested Prescriptions Pending Prescriptions Disp Refills omeprazole (PRILOSEC) 40 mg capsule 60 capsule 5 Sig: Take 1 capsule by mouth twice daily. Please review and advise. Ly Norton LPN documented in this encounter [facility] 09-17-2021 Miscellaneous Notes BMI SPECIALTY CARE COORDINATION [...] today. Will follow. documented in this encounter [facility] 09-13-2021 Miscellaneous Notes BMI SPECIALTY CARE COORDINATION [...] Lianne Welch RN documented in this encounter [facility] 09-03-2021 Miscellaneous Notes [facility] SPECIALTY CARE COORDINATION SURGERY APPROVAL CALL Received e-mail confirmation of insurance approval for bariatric surgery.Pre-operative call placed to the patient, this RN spoke with patient and agreed upon a surgery date of October 01 2021. Surgical episode request sent to [facility] surgery scheduling. Creatinine level 0.66 Patient instructed to start pre-op 800 calorie total protein liquid diet high protein Slimfast (4.5) or glucose controlled Boost (4.5) daily beginning 2 weeks prior to surgery. - Stop all ASA and NSAID products, [place] 3 fish oil, herbal products such as ginko etc. Stop vitamins EXCEPT B COMPLEX- take this up to the day before surgery - Medication List reviewed. Patient confirmed she is stopping nabumetone and is not taking naproxen. - Patient denies use of estrogen products . - No VICKY - Pt instructed to fax FMLA forms to [phone] and allow 7-10 days for completion. Linda [...] Suma Monsalve RN documented in this encounter [facility] 08-28-2021 History of Present illness Narrative Consultation requested by Viviana Marie APRN.INSURANCE DEFENSE ATTORNEY for an opinion regarding facial rash. My final recommendations will be communicated back to the requesting physician by way of shared Medical record in [facility]. Raul Fleming is a 40 year old [...] - Dr Grupo Shane(06/13/15) Referred by: Viviana Marie(STUDENT TRUCK DRIVER.INSURANCE DEFENSE ATTORNEY) DERMATOLOGY HISTORY: Personal Hx of skin cancer: [...] in 8 weeks documented in this encounter [facility] 08-27-2021 Nurse Note Pt being seen for facial rash. documented in this encounter [facility] 08-14-2021 Miscellaneous Notes Patient phones requesting refills as follows: Pending Prescriptions Disp Refills OMEPRAZOLE 40 MG CAPSULE,DELAYED RELEASE 60 capsule 0 Sig: Take 1 capsule by mouth twice daily. JUAN LUIS: No CEE 08/06/21 NOV no upcoming appt (appt on 08/27/21 is with Derm) Please review and advise. Td Stiles LPN documented in this encounter [facility] 08-07-2021 History of Present illness Narrative Pseudo date submission for bariatric surgery insurance pre-determination per Navigation team request. documented in this encounter [facility] 08-06-2021 Instructions Norma Nolan APRN.INSURANCE DEFENSE ATTORNEY - 08/06/2021 11:53 AM EDT Please arrange follow up with derm. You can also reach out to Dr. Diony Brown at [place] [phone] documented in this encounter [facility] 08-06-2021 History of Present illness Narrative This note was created using ViajaNetriter. Subjective Raul Fleming is a 40 year old female. 40 year old female with PMH SVT, GERD, and psoriasis presents with rash. Acute onset of symptoms was mid June Red itchy rash to face Endorses it occurred after being ill, specifically mesenteric adenitis. She was seen in [facility] end of June And was [...] history is provided by the patient. No language tutor was used. Rash This is a new [...] Norma Nolan APRN.FATEMEH documented in this encounter [facility] 07-30-[address] - 07/30/2021 9:24 AM EDT Nutrition Action Plan Please call [phone], option 5. Leave a message for the [...] weeks before surgery documented in this encounter [facility] 07-30-2021 History of Present illness Narrative The [facility] Nutrition Therapy: Virtual Consult Re-assessment This visit [...] guidelines for weight loss surgery and has [place] insurance and therefore may be required to [...] consumed for meals and snacks: Please call [phone], option 5. Leave a message for the [...] Daniel Benitez RD documented in this encounter [facility] 07-24-2021 Instructions Cris Mishra APRN.[facility] - 07/24/2021 12:00 PM EDT Mutually Agreed Upon Goals Eating Plan: [employer] [address] - Log intake 2 days per week. Replace skipped meals with a protein supplement. EyeCyte Plate. Activity: Apple Watch or FitBit tracker. [...] a deadly combination. documented in this encounter [facility] 07-24-2021 History of Present illness Narrative Images [...] her obesity and related complications to the [facility] Bariatric and Metabolic Eldred. Initial program weight: 368 lbs Last visit [...] meal. Exercise: She has been using an [employer] boxing program Stress: Stable - lost her [...] NAD: Breathing easy and unlabored. Assessment/Plan: Raul lFeming is a 40 year old female with [...] APRN.FATEMEH The patient was informed that in [facility], only one month supply of medication is provided at a time, for 3 months, then a 6 month hiatus from the medication. The patient is also aware that timely refills required, with monthly mgjw-vn-vzmi office visits for monitoring of therapy and refills. The patient understands that lack of timely follow up, or not filling the medication on time every month would constitute an interruption of therapy, and the 6 month hiatus from medication would occur as per the [facility] pharmacy board rules. I spent a total of 35 minutes on the date of the service which included kzrd-rd-kije patient care, completing clinical documentation, obtaining and/or [...] Cris Mishra APRN.CNP documented in this encounter [facility] 07-15-2021 Miscellaneous Notes Patient phones requesting refills as follows: Pending Prescriptions Disp Refills OMEPRAZOLE 40 MG CAPSULE,DELAYED RELEASE 60 capsule 0 Sig: Take 1 capsule by mouth twice daily. JUAN LUIS: No CEE 07/15/21 NOV no upcoming appt Please review and advise. Td Stiles LPN documented in this encounter [facility] 07-15-2021 History of Present illness Narrative Chief [...] no suspicious rashes or lesions. Musculoskeletal: 5/5 application support analyst strength bilaterally. Normal ROM of fingers and [...] Donald Pearl MD documented in this encounter [facility] 06-26-2021 Miscellaneous Notes Pt notified. Td Stiles LPN Mesenteric adenitis is usually viral and gets better on its own. If pain is severe enough for meds, needs to see one of us, if pain is worsening or worsening symptoms, can certainly go to er. Pt called in and reports on 06/24 she went to and then [facility] ER. 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 Wanted to know if provider through she should go to the ER again, or if there was anything the provider would like to prescribe. Please call and advise. documented in this encounter [facility] 06-24-2021 History of Present illness Narrative Subjective The history is provided by the patient. No language tutor was used. HPI Raul Fleming is a [...] have confirmed and edited as necessary, the [facility] Review of Systems Constitutional: Negative for chills, [...] and lack of investigative tools available at [facility], recommend patient be seen at nearest ED for further work up, patient will go to [place] ED - Diagnosis and treatment plan were discussed and questions were answered to the patient's satisfaction. Pt acknowledged understanding of concepts and follow up plan. Specific signs and symptoms that would indicate the need for higher level of care were discussed in detail warranting prompt ER evaluation. Starr Ram APRN.FATEMEH documented in this encounter [facility] 06-24-2021 Miscellaneous Notes Protocol recommends see provider [...] : No. Protocols used: ABDOMINAL PAIN - OCRXTE-ZUXPC-UK documented in this encounter [facility] 06-18-2021 History of Present illness Narrative Images from the original note were not included. BMI Obesity Medicine Follow-Up Note June 18, 2021 Patient Summary: is 40 year old female who presents for follow-up evaluation of her obesity and related complications to the [facility] Bariatric and Metabolic Eldred. Initial program weight: 368 lbs Last visit [...] meal. Exercise: She has been using an [employer], [employer] boxing program Stress: stable Sleep: no insomnia, [...] the date of the service which included jxdc-ij-ywkh patient care, completing clinical documentation, obtaining and/or reviewing separately obtained history, performing a medically appropriate examination, counseling and educating the patient/family/caregiver and ordering medications, tests, or procedures. Medical Decision Making Alison Jules DO documented in this encounter [facility] 06-17-2021 Miscellaneous Notes Patient called office. Said she is having trouble scheduling her 5 week appointment, and would like a call back. Her phone number is [phone]. 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 Jules documented in this encounter [facility] 05-22-2021 History of Present illness Narrative The [facility] Nutrition Therapy: Virtual Consult Re-assessment This visit [...] exercises at home as well: IN PROGRESS ProtoExchange workout database: https://The [employer]/ Chair or standing Team Body Project https://www.[place] 1000CHI Software Technologyube.com/watch?v=e8op MY-SoZc Chair exercise Pirate Pay https://www.GRR Systems/resource /videos-detail.asp?video=38 Beth López Easy walk in place 15 min https://www.[employer] 1000[employer] Technologyube.com/watch?v=njeZ 29umqVE Body Project 30 min https://youNumara Software France.be/J-YslM5US-4 Beth López Higher intensity walk 30 min https://www.[employer] 1000CHI [employer] Technologyube.com/watch?v=cvEJ 4CLf2MY 5. Drink 64 ounces per day water. Fluids should follow these guidelines: No carbonation, no caffeine, no calories, no alcohol. Separate foods and fluids by 20 minutes IN PROGRESS 6. Research and choose these vitamin options for use 3 weeks post operatively: IN PROGRESS - Bariatric Fusion: 4 Complete Chewable Multivitamins per day (2 in the AM, 2 in the PM) [email or web address] - AdTonik: 1 Bariatric Multivitamin and Calcium Citrate (total of 4526-0771 mg/day) * take calcium citrate separately from Multivitamin with iron at least 2 hours apart and 4 hours apart from additional calcium www.[email or web address], [employer] pro[employer]ariosa[employer] - Bariatric Choice: 4 Complete Multivitamins (chewables) per day [email or web address] - Bariatric Advantage: 2 Multivitamins and 3 Calcium Citrate Chewables per day * take calcium citrate separately from Multivitamin with iron at least 2 hours apart and 4 hours apart from additional calcium [email or web address] Protein Goal: 92 gm per day NOT [...] chews and 1500mg calcium daily Physical Activity: WordWatch Workout games daily for 20 minutes CLINICAL [...] recently started on phentermine, and plans to miner pick Rx WALLY. Diet recall reveals consistent meal [...] guidelines for weight loss surgery and has [place] Medicaid insurance and therefore may be required [...] Daniel Benitez RD documented in this encounter [facility] 05-21-2021 History of Present illness Narrative Images from the original note were not included. BMI Obesity Medicine Follow-Up Note May 21, 2021 Patient Summary: is 40 year old female who presents for follow-up evaluation of her obesity and related complications to the [facility]. The patient is here today for a [...] with a dietitian tomorrow. Exercise: Currently using [employer] Sprout game which gives her a good workout. [...] the date of the service which included [id number] patient care, completing clinical documentation, obtaining and/or reviewing separately obtained history, performing a medically appropriate examination, counseling and educating the patient/family/caregiver and ordering medications, tests, or procedures. Medical Decision Making Alison Jules DO documented in this encounter [facility] documented as of this encounter (statuses as of 05/21/2021) [facility]2018 History of Past illness Narrative* Problem Noted [...] of this encounter (statuses as of 05/22/2021) [facility] History of Past illness Narrative* Problem Noted [...] of this encounter (statuses as of 06/17/2021) [facility] History of Past illness Narrative* Problem Noted [...] of this encounter (statuses as of 06/18/2021) [facility] History of Past illness Narrative* Problem Noted [...] of this encounter (statuses as of 06/18/2021) [facility] History of Past illness Narrative* Problem Noted [...] of this encounter (statuses as of 06/24/2021) [facility] History of Past illness Narrative* Problem Noted [...] of this encounter (statuses as of 06/26/2021) [facility] History of Past illness Narrative* Problem Noted [...] of this encounter (statuses as of 07/15/2021) [facility] History of Past illness Narrative* Problem Noted [...] of this encounter (statuses as of 07/25/2021) [facility] History of Past illness Narrative* Problem Noted [...] of this encounter (statuses as of 07/30/2021) [facility] History of Past illness Narrative* Problem Noted [...] of this encounter (statuses as of 07/31/2021) [facility] History of Past illness Narrative* Problem Noted [...] of this encounter (statuses as of 08/06/2021) [facility] History of Past illness Narrative* Problem Noted [...] of this encounter (statuses as of 08/14/2021) [facility] History of Past illness Narrative* Problem Noted [...] of this encounter (statuses as of 08/30/2021) [facility] History of Past illness Narrative* Problem Noted [...] of this encounter (statuses as of 09/03/2021) [facility] History of Past illness Narrative* Problem Noted [...] of this encounter (statuses as of 09/03/2021) [facility] History of Past illness Narrative* Problem Noted [...] of this encounter (statuses as of 09/13/2021) [facility] History of Past illness Narrative* Problem Noted [...] of this encounter (statuses as of 09/17/2021) [facility] History of Past illness Narrative* Problem Noted [...] of this encounter (statuses as of 09/18/2021) [facility] History of Past illness Narrative* Problem Noted [...] of this encounter (statuses as of 09/20/2021) [facility] History of Past illness Narrative* Problem Noted [...] of this encounter (statuses as of 09/25/2021) [facility] History of Past illness Narrative* Problem Noted [...] of this encounter (statuses as of 10/04/2021) [facility] History of Past illness Narrative* Problem Noted [...] of this encounter (statuses as of 10/09/2021) [facility] History of Past illness Narrative* Problem Noted [...] of this encounter (statuses as of 10/09/2021) [facility] History of Past illness Narrative* Problem Noted [...] of this encounter (statuses as of 10/14/2021) [facility] History of Past illness Narrative* Problem Noted [...] of this encounter (statuses as of 10/18/2021) [facility] History of Past illness Narrative* Problem Noted [...] of this encounter (statuses as of 10/21/2021) [facility] History of Past illness Narrative* Problem Noted [...] of this encounter (statuses as of 10/22/2021) [facility] History of Past illness Narrative* Problem Noted [...] of this encounter (statuses as of 10/22/2021) [facility] History of Past illness Narrative* Problem Noted [...] of this encounter (statuses as of 10/22/2021) [facility] History of Past illness Narrative* Problem Noted [...] of this encounter (statuses as of 10/23/2021) [facility] History of Past illness Narrative* Problem Noted [...] of this encounter (statuses as of 10/23/2021) [facility] History of Past illness Narrative* Problem Noted [...] of this encounter (statuses as of 10/24/2021) [facility] History of Past illness Narrative* Problem Noted [...] of this encounter (statuses as of 10/27/2021) [facility] History of Past illness Narrative* Problem Noted [...] of this encounter (statuses as of 10/30/2021) [facility] History of Past illness Narrative* Problem Noted [...] of this encounter (statuses as of 11/07/2021) [facility] History of Past illness Narrative* Problem Noted [...] of this encounter (statuses as of 11/18/2021) [facility] History of Past illness Narrative* Problem Noted [...] of this encounter (statuses as of 12/10/2021) [facility] History of Past illness Narrative* Problem Noted [...] of this encounter (statuses as of 12/10/2021) [facility] History of Past illness Narrative* Problem Noted [...] of this encounter (statuses as of 01/06/2022) [facility] History of Past illness Narrative* Problem Noted [...] of this encounter (statuses as of 01/10/2022) [facility] History of Past illness Narrative* Problem Noted [...] of this encounter (statuses as of 01/17/2022) [facility] History of Past illness Narrative* Problem Noted [...] of this encounter (statuses as of 01/18/2022) [facility] History of Past illness Narrative* Problem Noted [...] of this encounter (statuses as of 01/20/2022) [facility] History of Past illness Narrative* Problem Noted [...] of this encounter (statuses as of 02/22/2022) [facility] History of Past illness Narrative* Problem Noted [...] of this encounter (statuses as of 03/11/2022) [facility] History of Past illness Narrative* Problem Noted [...] of this encounter (statuses as of 03/31/2022) [facility] History of Past illness Narrative* Problem Noted [...] of this encounter (statuses as of 04/02/2022) [facility] History of Past illness Narrative* Problem Noted [...] of this encounter (statuses as of 04/11/2022) [facility] History of Past illness Narrative* Problem Noted [...] of this encounter (statuses as of 05/19/2022) [facility] History of Past illness Narrative* Problem Noted [...] of this encounter (statuses as of 05/22/2022) [facility] History of Past illness Narrative* Problem Noted [...] of this encounter (statuses as of 05/23/2022) [facility] History of Past illness Narrative* Problem Noted [...] of this encounter (statuses as of 06/05/2022) [facility] History of Past illness Narrative* Problem Noted [...] of this encounter (statuses as of 06/11/2022) [facility] History of Past illness Narrative* Problem Noted [...] of this encounter (statuses as of 06/17/2022) [facility] History of Past illness Narrative* Problem Noted [...] of this encounter (statuses as of 2022) [facility] History of Past illness Narrative* Problem Noted [...] of this encounter (statuses as of 10/01/2022) [facility] History of Past illness Narrative* Problem Noted [...] of this encounter (statuses as of 10/03/2022) [facility] History of Past illness Narrative* Problem Noted [...] of this encounter (statuses as of 12/14/2022) [facility] Diagnosis Class 3 severe obesity with serious comorbidity and body mass index (BMI) of 60.0 to 69.9 in adult, unspecified obesity type (HCC)- [facility] Morbid obesity (HCC)- Primary Morbid obesity Dietary counseling and surveillance Dietary surveillance and counseling [facility] Diagnosis Class 3 severe obesity with serious comorbidity and body mass index (BMI) of 60.0 to 69.9 in adult, unspecified obesity type (HCC)- Primary [facility] Diagnosis Abdominal pain, unspecified abdominal location- Primary [facility] Diagnosis Cubital tunnel syndrome on left- Primary Lesion of ulnar nerve [facility] Diagnosis Class 3 severe obesity due to excess calories with body mass index (BMI) of 50.0 to 59.9 in adult, unspecified whether serious comorbidity present (HCC)- Primary Weight disorder Other symptoms concerning nutrition, metabolism, and development Medication management Encounter for long-term (current) use of other medications [facility] Diagnosis Morbid obesity (HCC)- Primary Morbid obesity Dietary counseling and surveillance Dietary surveillance and counseling [facility] Diagnosis Facial rash- Primary Rash and other nonspecific skin eruption [facility] Diagnosis Excoriation of face, subsequent encounter- Primary [facility] Diagnosis Morbid obesity (HCC)- Primary Morbid obesity Gastroesophageal reflux disease, unspecified whether esophagitis present Preoperative examination Preoperative examination, unspecified Encounter for screening for COVID-19 Morbid obesity (HCC) Morbid obesity Gastroesophageal reflux disease, unspecified whether esophagitis present [facility] Diagnosis Pre-operative examination- Primary Preoperative examination, [...] whether esophagitis present [facility] Diagnosis Morbid obesity due to excess calories (HCC)- Primary [facility] Diagnosis Encounter for screening mammogram for breast cancer [facility] Diagnosis S/P bariatric surgery- Primary Bariatric surgery status Dietary counseling and surveillance Dietary surveillance and counseling Class 3 severe obesity with serious comorbidity and body mass index (BMI) of 60.0 to 69.9 in adult, unspecified obesity type (HCC) [facility] Diagnosis Bariatric surgery status- Primary [facility] Diagnosis Bariatric surgery status- Primary [facility] Diagnosis Morbid obesity due to excess calories (HCC)- Primary Bariatric surgery status [facility] Diagnosis Cervical radiculopathy Brachial neuritis or radiculitis nos documented [facility] Diagnosis 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 note* Diagnosis COVID- Primary documented in this encounter [facility] note* Diagnosis Sore throat- Primary Acute pharyngitis Strep throat Streptococcal sore throat documented in this encounter [facility] note* Diagnosis Irregular menses- Primary Irregular menstrual cycle documented in this encounter [facility] note* Diagnosis Seasonal allergies Allergic rhinitis, cause unspecified documented in this encounter [facility] note* Diagnosis Encounter for surgical aftercare following surgery of digestive system- Primary Aftercare following surgery of the teeth, oral cavity and digestive system, NEC Class 3 severe obesity due to excess calories without serious comorbidity with body mass index (BMI) of 50.0 to 59.9 in adult ([facility]) documented in this encounter [facility] note* Diagnosis Cervical radiculopathy Brachial neuritis or radiculitis nos documented in this encounter [facility] note* Diagnosis Sciatica, right side- Primary documented in this encounter [facility] note* Diagnosis Allergy, subsequent encounter- Primary documented in this encounter [facility] note* Diagnosis Lightheaded- Primary Dizziness and giddiness Migraine without status migrainosus, not intractable, unspecified migraine type Gastric bypass status for obesity Bariatric surgery status documented in this encounter [facility] note* Diagnosis Hyperglycemia- Primary Other abnormal glucose documented in this encounter [facility] note* Diagnosis Viral bronchitis- Primary Acute bronchitis documented in this encounter [facility] note* Diagnosis Viral bronchitis- Primary Acute bronchitis documented in this encounter [facility] note* Diagnosis Encounter for screening mammogram for breast cancer documented in this encounter [facility] for referral (narrative)* Diagnostic Procedure Only (Routine) - Pending Review Specialty Diagnoses / Procedures Referred By Samra ortiz Referred To Contact [facility] Diagnoses Encounter for screening mammogram for breast cancer Procedures ARUN SCREENING SCREENING MAMMOGRAPHY BI 2-VIEW BREAST INC CAD Toi Escamilla MD [address] [place] [address] [facility] [address] [place] [address] Referral ID Status Reason Start Date Expiration Date Visits Requested Visits Authorized [id number] Pending Review Auto-Generat ed Referral 10/09/2021 11/08/2022 1 1 T [facility] for referral (narrative)* Outpatient Procedure (Routine) - Closed Specialty Diagnoses / Procedures Referred By Samra ortiz Referred To Contact [facility] Diagnoses Lightheaded Procedures ECG COMPLETE ECG ROUTINE ECG W/LEAST 12 LDS W/I&R Toi Escamilla MD [address] [place] [address] [facility] [address] [place] [address] Referral ID Status Reason Start Date Expiration Date V isits Requested Visits Authorized [id number] Closed Auto-Generate d Referral 06/11/2022 06/11/2023 1 1 [facility] for referral (narrative)* Diagnostic Procedure Only (Routine) - Closed Specialty Diagnoses / Procedures Referred By Samar ortiz Referred To Contact [facility] Diagnoses Encounter for screening mammogram for breast cancer Procedures ARUN SCREENING SCREENING MAMMOGRAPHY BI 2[place] [address] [place] [address] [facility] [address] [place] [address] Referral ID Status Reason Start Date Expiration Date V isits Requested Visits Authorized [id number] Closed Auto-Generate d Referral 10/09/2021 11/08/2022 [address] [facility] for visit Narrative* Diagnostic Procedure Only (Routine) - Closed Specialty Diagnoses / Procedures Referred By Samra ortiz Referred To Contact [facility] Diagnoses Encounter for screening mammogram for breast cancer Procedures ARUN SCREENING SCREENING MAMMOGRAPHY BI 2-VIEW BREAST INC Toi Emerson MD [address] [place] [address] [facility] [address] [place] [address] Referral ID Status Reason Start Date Expiration Date V isits Requested Visits Authorized [id number] Closed Auto-Generate d Referral 10/09/2021 11/08/2022 1 1 [facility] Chief Complaint Chief Complaint Description Start Date neck pain Preliminary chief co mplaint data, not yet signed by the author as of Instructions Instruction Description Start Date CompletedPatient advised to follow-up with Primary Care Physician for BMI management. 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 Advance Directive(s) 09/06/2021 1:19 PM [...] obesity type (HCC) Alison Jules DO [address] [facility] [address] [place] [address] Referral ID Status Reason Start Date Expiration Date V isits Requested Visits Authorized [id number] Pending Review 1 1 Referral ID Status Reason Start Date Expiration Date V isits Requested Visits Authorized [id number] Pending Review 1 1 Specialty Diagnoses / Procedures Referred By Contac t Referred To Contact Diagnoses Class 3 severe obesity due to excess calories with body mass index (BMI) of 50.0 to 59.9 in adult, unspecified whether serious comorbidity present (HCC) Weight disorder Cris Mishra APRN.INSURANCE DEFENSE ATTORNEY [address] [place] [place] [id number] Referral ID Status Reason Start Date Expiration Date Visits Re quested Visits Authorized [id number] Denied 1 1 Specialty Diagnoses / Procedures Referred By Contac t Referred To Contact Dermatology Diagnoses Facial rash Procedures CONSULT TO DERMATOLOGY Norma Nolan APRN.INSURANCE DEFENSE ATTORNEY [address] [place] [address] Referral ID Status Reason Start Date Expiration Date Visits Requested Visits Authorized [id number] Ref Not Required PCP Requested Referral 08/06/2021 08/06/2022 1 1 Specialty Diagnoses / Procedures Referred By Samra t Referred To Contact Diagnoses Morbid obesity (HCC) Chronic GERD Gastroesophageal reflux disease, unspecified whether esophagitis present Preoperative examination Procedures IN PERSON CONSULT TO PACC Jacinta Daugherty APRN.BENDER HAND [address] [place] [address] Referral ID Status Reason Start Date Expiration Date Visits Requested Visits Authorized [id number] Ref Not Required PCP Requested Referral 09/03/2021 12/02/2021 1 1 Specialty Diagnoses / Procedures Referred By Samra t Referred To Contact Diagnoses Allergy, subsequent encounter Toi Escamilla MD [address] [place] [address] Referral ID Status Reason Start Date Expiration Date Visits Re quested Visits Authorized [id number] Closed 1 1 Medications Administered Section Inactive [...] 150CM OR LESS [facility] [address] [place] [address] Referral ID Status Reason Start Date Expiration Date Visits Re quested Visits Authorized [id number] 1 1 Reason Comments Consult Reason For [...] a call back. Her phone number is [phone]. 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 [...] Rash facial rash, was see n in [facility] about a month ago Reason Onset [...] or prosecute any alcohol or drug abuse patient.[facility] the event this information is protected by the Federal Confidentiality of Alcohol and Drug Abuse Patient Records regulations: The Federal rules restrict any use of the information to criminally investigate or prosecute any alcohol or drug abuse patient.[facility] DublinIn the event this information is protected by the Federal Confidentiality of Alcohol and Drug Abuse Patient Records regulations: The Federal rules restrict any use of the information to criminally investigate or prosecute any alcohol or drug abuse patient.[facility] DublinIn the event this information is protected by the Federal Confidentiality of Alcohol and Drug Abuse Patient Records regulations: The Federal rules restrict any use of the information to criminally investigate or prosecute any alcohol or drug abuse patient.[facility] DublinIn the event this information is protected by the Federal Confidentiality of Alcohol and Drug Abuse Patient Records regulations: The Federal rules restrict any use of the information to criminally investigate or prosecute any alcohol or drug abuse patient.[facility] DublinIn the event this information is protected by the Federal Confidentiality of Alcohol and Drug Abuse Patient Records regulations: The Federal rules restrict any use of the information to criminally investigate or prosecute any alcohol or drug abuse patient.[facility] DublinIn the event this information is protected by the Federal Confidentiality of Alcohol and Drug Abuse Patient Records regulations: The Federal rules restrict any use of the information to criminally investigate or prosecute any alcohol or drug abuse patient.[facility] DublinIn the event this information is protected by the Federal Confidentiality of Alcohol and Drug Abuse Patient Records regulations: The Federal rules restrict any use of the information to criminally investigate or prosecute any alcohol or drug abuse patient.[facility] DublinIn the event this information is protected by the Federal Confidentiality of Alcohol and Drug Abuse Patient Records regulations: The Federal rules restrict any use of the information to criminally investigate or prosecute any alcohol or drug abuse patient.[facility] DublinIn the event this information is protected by the Federal Confidentiality of Alcohol and Drug Abuse Patient Records regulations: The Federal rules restrict any use of the information to criminally investigate or prosecute any alcohol or drug abuse patient.[facility] DublinIn the event this information is protected by the Federal Confidentiality of Alcohol and Drug Abuse Patient Records regulations: The Federal rules restrict any use of the information to criminally investigate or prosecute any alcohol or drug abuse patient.[facility] DublinIn the event this information is protected by the Federal Confidentiality of Alcohol and Drug Abuse Patient Records regulations: The Federal rules restrict any use of the information to criminally investigate or prosecute any alcohol or drug abuse patient.[facility] DublinIn the event this information is protected by the Federal Confidentiality of Alcohol and Drug Abuse Patient Records regulations: The Federal rules restrict any use of the information to criminally investigate or prosecute any alcohol or drug abuse patient.[facility] DublinIn the event this information is protected by the Federal Confidentiality of Alcohol and Drug Abuse Patient Records regulations: The Federal rules restrict any use of the information to criminally investigate or prosecute any alcohol or drug abuse patient.[facility] DublinIn the event this information is protected by the Federal Confidentiality of Alcohol and Drug Abuse Patient Records regulations: The Federal rules restrict any use of the information to criminally investigate or prosecute any alcohol or drug abuse patient.[facility] DublinIn the event this information is protected by the Federal Confidentiality of Alcohol and Drug Abuse Patient Records regulations: The Federal rules restrict any use of the information to criminally investigate or prosecute any alcohol or drug abuse patient.[facility] DublinIn the event this information is protected by the Federal Confidentiality of Alcohol and Drug Abuse Patient Records regulations: The Federal rules restrict any use of the information to criminally investigate or prosecute any alcohol or drug abuse patient.[facility] DublinIn the event this information is protected by the Federal Confidentiality of Alcohol and Drug Abuse Patient Records regulations: The Federal rules restrict any use of the information to criminally investigate or prosecute any alcohol or drug abuse patient.[facility] DublinIn the event this information is protected by the Federal Confidentiality of Alcohol and Drug Abuse Patient Records regulations: The Federal rules restrict any use of the information to criminally investigate or prosecute any alcohol or drug abuse patient.[facility] DublinIn the event this information is protected by the Federal Confidentiality of Alcohol and Drug Abuse Patient Records regulations: The Federal rules restrict any use of the information to criminally investigate or prosecute any alcohol or drug abuse patient.[facility] DublinIn the event this information is protected by the Federal Confidentiality of Alcohol and Drug Abuse Patient Records regulations: The Federal rules restrict any use of the information to criminally investigate or prosecute any alcohol or drug abuse patient.[facility] DublinIn the event this information is protected by the Federal Confidentiality of Alcohol and Drug Abuse Patient Records regulations: The Federal rules restrict any use of the information to criminally investigate or prosecute any alcohol or drug abuse patient.[facility] DublinIn the event this information is protected by the Federal Confidentiality of Alcohol and Drug Abuse Patient Records regulations: The Federal rules restrict any use of the information to criminally investigate or prosecute any alcohol or drug abuse patient.[facility] DublinIn the event this information is protected by the Federal Confidentiality of Alcohol and Drug Abuse Patient Records regulations: The Federal rules restrict any use of the information to criminally investigate or prosecute any alcohol or drug abuse patient.[facility] DublinIn the event this information is protected by the Federal Confidentiality of Alcohol and Drug Abuse Patient Records regulations: The Federal rules restrict any use of the information to criminally investigate or prosecute any alcohol or drug abuse patient.[facility] DublinIn the event this information is protected by the Federal Confidentiality of Alcohol and Drug Abuse Patient Records regulations: The Federal rules restrict any use of the information to criminally investigate or prosecute any alcohol or drug abuse patient.[facility] DublinIn the event this information is protected by the Federal Confidentiality of Alcohol and Drug Abuse Patient Records regulations: The Federal rules restrict any use of the information to criminally investigate or prosecute any alcohol or drug abuse patient.[facility] DublinIn the event this information is protected by the Federal Confidentiality of Alcohol and Drug Abuse Patient Records regulations: The Federal rules restrict any use of the information to criminally investigate or prosecute any alcohol or drug abuse patient.[facility] DublinIn the event this information is protected by the Federal Confidentiality of Alcohol and Drug Abuse Patient Records regulations: The Federal rules restrict any use of the information to criminally investigate or prosecute any alcohol or drug abuse patient.[facility] DublinIn the event this information is protected by the Federal Confidentiality of Alcohol and Drug Abuse Patient Records regulations: The Federal rules restrict any use of the information to criminally investigate or prosecute any alcohol or drug abuse patient.[facility] DublinIn the event this information is protected by the Federal Confidentiality of Alcohol and Drug Abuse Patient Records regulations: The Federal rules restrict any use of the information to criminally investigate or prosecute any alcohol or drug abuse patient.[facility] DublinIn the event this information is protected by the Federal Confidentiality of Alcohol and Drug Abuse Patient Records regulations: The Federal rules restrict any use of the information to criminally investigate or prosecute any alcohol or drug abuse patient.[facility] DublinIn the event this information is protected by the Federal Confidentiality of Alcohol and Drug Abuse Patient Records regulations: The Federal rules restrict any use of the information to criminally investigate or prosecute any alcohol or drug abuse patient.[facility] DublinIn the event this information is protected by the Federal Confidentiality of Alcohol and Drug Abuse Patient Records regulations: The Federal rules restrict any use of the information to criminally investigate or prosecute any alcohol or drug abuse patient.[facility] DublinIn the event this information is protected by the Federal Confidentiality of Alcohol and Drug Abuse Patient Records regulations: The Federal rules restrict any use of the information to criminally investigate or prosecute any alcohol or drug abuse patient.[facility] DublinIn the event this information is protected by the Federal Confidentiality of Alcohol and Drug Abuse Patient Records regulations: The Federal rules restrict any use of the information to criminally investigate or prosecute any alcohol or drug abuse patient.[facility] DublinIn the event this information is protected by the Federal Confidentiality of Alcohol and Drug Abuse Patient Records regulations: The Federal rules restrict any use of the information to criminally investigate or prosecute any alcohol or drug abuse patient.[facility] DublinIn the event this information is protected by the Federal Confidentiality of Alcohol and Drug Abuse Patient Records regulations: The Federal rules restrict any use of the information to criminally investigate or prosecute any alcohol or drug abuse patient.[facility] DublinIn the event this information is protected by the Federal Confidentiality of Alcohol and Drug Abuse Patient Records regulations: The Federal rules restrict any use of the information to criminally investigate or prosecute any alcohol or drug abuse patient.[facility] DublinIn the event this information is protected by the Federal Confidentiality of Alcohol and Drug Abuse Patient Records regulations: The Federal rules restrict any use of the information to criminally investigate or prosecute any alcohol or drug abuse patient.[facility] DublinIn the event this information is protected by the Federal Confidentiality of Alcohol and Drug Abuse Patient Records regulations: The Federal rules restrict any use of the information to criminally investigate or prosecute any alcohol or drug abuse patient.[facility] DublinIn the event this information is protected by the Federal Confidentiality of Alcohol and Drug Abuse Patient Records regulations: The Federal rules restrict any use of the information to criminally investigate or prosecute any alcohol or drug abuse patient.[facility] DublinIn the event this information is protected by the Federal Confidentiality of Alcohol and Drug Abuse Patient Records regulations: The Federal rules restrict any use of the information to criminally investigate or prosecute any alcohol or drug abuse patient.[facility] DublinIn the event this information is protected by the Federal Confidentiality of Alcohol and Drug Abuse Patient Records regulations: The Federal rules restrict any use of the information to criminally investigate or prosecute any alcohol or drug abuse patient.[facility] DublinIn the event this information is protected by the Federal Confidentiality of Alcohol and Drug Abuse Patient Records regulations: The Federal rules restrict any use of the information to criminally investigate or prosecute any alcohol or drug abuse patient.[facility] DublinIn the event this information is protected by the Federal Confidentiality of Alcohol and Drug Abuse Patient Records regulations: The Federal rules restrict any use of the information to criminally investigate or prosecute any alcohol or drug abuse patient.[facility] DublinIn the event this information is protected by the Federal Confidentiality of Alcohol and Drug Abuse Patient Records regulations: The Federal rules restrict any use of the information to criminally investigate or prosecute any alcohol or drug abuse patient.[facility] DublinIn the event this information is protected by the Federal Confidentiality of Alcohol and Drug Abuse Patient Records regulations: The Federal rules restrict any use of the information to criminally investigate or prosecute any alcohol or drug abuse patient.[facility] DublinIn the event this information is protected by the Federal Confidentiality of Alcohol and Drug Abuse Patient Records regulations: The Federal rules restrict any use of the information to criminally investigate or prosecute any alcohol or drug abuse patient.[facility] DublinIn the event this information is protected by the Federal Confidentiality of Alcohol and Drug Abuse Patient Records regulations: The Federal rules restrict any use of the information to criminally investigate or prosecute any alcohol or drug abuse patient.[facility] DublinIn the event this information is protected by the Federal Confidentiality of Alcohol and Drug Abuse Patient Records regulations: The Federal rules restrict any use of the information to criminally investigate or prosecute any alcohol or drug abuse patient.[facility] DublinIn the event this information is protected by the Federal Confidentiality of Alcohol and Drug Abuse Patient Records regulations: The Federal rules restrict any use of the information to criminally investigate or prosecute any alcohol or drug abuse patient.[facility] DublinIn the event this information is protected by the Federal Confidentiality of Alcohol and Drug Abuse Patient Records regulations: The Federal rules restrict any use of the information to criminally investigate or prosecute any alcohol or drug abuse patient.[facility] DublinIn the event this information is protected by the Federal Confidentiality of Alcohol and Drug Abuse Patient Records regulations: The Federal rules restrict any use of the information to criminally investigate or prosecute any alcohol or drug abuse patient.[facility] DublinIn the event this information is protected by the Federal Confidentiality of Alcohol and Drug Abuse Patient Records regulations: The Federal rules restrict any use of the information to criminally investigate or prosecute any alcohol or drug abuse patient.[facility] DublinIn the event this information is protected by the Federal Confidentiality of Alcohol and Drug Abuse Patient Records regulations: The Federal rules restrict any use of the information to criminally investigate or prosecute any alcohol or drug abuse patient.[facility] DublinIn the event this information is protected by the Federal Confidentiality of Alcohol and Drug Abuse Patient Records regulations: The Federal rules restrict any use of the information to criminally investigate or prosecute any alcohol or drug abuse patient.[facility] DublinIn the event this information is protected by the Federal Confidentiality of Alcohol and Drug Abuse Patient Records regulations: The Federal rules restrict any use of the information to criminally investigate or prosecute any alcohol or drug abuse patient.[facility] DublinIn the event this information is protected by the Federal Confidentiality of Alcohol and Drug Abuse Patient Records regulations: The Federal rules restrict any use of the information to criminally investigate or prosecute any alcohol or drug abuse patient.[facility] DublinIn the event this information is protected by the Federal Confidentiality of Alcohol and Drug Abuse Patient Records regulations: The Federal rules restrict any use of the information to criminally investigate or prosecute any alcohol or drug abuse patient.[facility] DublinIn the event this information is protected by the Federal Confidentiality of Alcohol and Drug Abuse Patient Records regulations: The Federal rules restrict any use of the information to criminally investigate or prosecute any alcohol or drug abuse patient.[facility] DublinIn the event this information is protected by the Federal Confidentiality of Alcohol and Drug Abuse Patient Records regulations: The Federal rules restrict any use of the information to criminally investigate or prosecute any alcohol or drug abuse patient.[facility] DublinIn the event this information is protected by the Federal Confidentiality of Alcohol and Drug Abuse Patient Records regulations: The Federal rules restrict any use of the information to criminally investigate or prosecute any alcohol or drug abuse patient.[facility] Care Teams (unrecognized sec tion and content) Audiology Doctor Relationship Specialty Start Date End Date Toi Escamilla MD [facility] [place] [address] PCP - General Family Practice 09/16/18 Audiology Doctor Relationship Specialty Start Date End Date Toi Escamilla MD [facility] [place] [address] PCP - General Family Practice 09/16/18 Audiology Doctor Relationship Specialty Start Date End Date Toi Escamilla MD [address] [place] [id number] PCP - General Family Practice 09/16/18 Audiology Doctor Relationship Specialty Start Date End Date Toi Escamilla MD [address] [place] [id number] PCP - General Family Practice 09/16/18 Audiology Doctor Relationship Specialty Start Date End Date Toi Escamilla MD [address] [place] [id number] PCP - General Family Practice 09/16/18 Audiology Doctor Relationship Specialty Start Date End Date Toi Escamilla MD [address] [facility] [place] [address] PCP - General Family Practice 09/16/18 Audiology Doctor Relationship Specialty Start Date End Date Toi Escamilla MD [address] [facility] [place] [address] PCP - General Family Practice 09/16/18 Audiology Doctor Relationship Specialty Start Date End Date Toi Escamilla MD [address] [facility] [place] [address] PCP - General Family Practice 09/16/18 Audiology Doctor Relationship Specialty Start Date End Date Toi Escamilla MD [address] [facility] [place] [address] PCP - General Family Practice 09/16/18 Audiology Doctor Relationship Specialty Start Date End Date Toi Escamilla MD [address] [facility] [place] [address] PCP - General Family Practice 09/16/18 Audiology Doctor Relationship Specialty Start Date End Date Toi Escamilla MD [address] [facility] [place] [address] PCP - General Family Practice 09/16/18 Audiology Doctor Relationship Specialty Start Date End Date Toi Escamilla MD [address] [facility] [place] [address] PCP - General Family Practice 09/16/18 Audiology Doctor Relationship Specialty Start Date End Date Toi Escamilla MD [address] [facility] [place] [address] PCP - General Family Practice 09/16/18 Audiology Doctor Relationship Specialty Start Date End Date Toi Escamilla MD [address] [facility] [place] [address] PCP - General Family Practice 09/16/18 Audiology Doctor Relationship Specialty Start Date End Date Toi Escamilla MD [address] [facility] [place] [address] PCP - General Family Practice 09/16/18 Audiology Doctor Relationship Specialty Start Date End Date Toi Escamilla MD [address] [facility] [place] [address] PCP - General Family Practice 09/16/18 Audiology Doctor Relationship Specialty Start Date End Date Toi Escamilla MD [address] [facility] [place] [address] PCP - General Family Practice 09/16/18 Audiology Doctor Relationship Specialty Start Date End Date Toi Escamilla MD [address] [facility] [place] [address] PCP - General Family Practice 09/16/18 Audiology Doctor Relationship Specialty Start Date End Date Toi Escamilla MD [address] [facility] [place] [address] PCP - General Family Practice 09/16/18 Audiology Doctor Relationship Specialty Start Date End Date Toi Escamilla MD [address] [facility] [place] [address] PCP - General Family Practice 09/16/18 Audiology Doctor Relationship Specialty Start Date End Date Toi Escamilla MD [address] [facility] [place] [address] PCP - General Family Medicine 09/16/18 Audiology Doctor Relationship Specialty Start Date End Date Toi Escamilla MD [address] [facility] [place] [address] PCP - General Family Medicine 09/16/18 Audiology Doctor Relationship Specialty Start Date End Date Toi Escamilla MD [address] [facility] [place] [address] PCP - General Family Medicine 09/16/18 Audiology Doctor Relationship Specialty Start Date End Date Toi Escamilla MD [address] [facility] [place] [address] PCP - General Family Medicine 09/16/18 Audiology Doctor Relationship Specialty Start Date End Date Toi Escamilla MD [address] [facility] [place] [address] PCP - General Family Medicine 09/16/18 Audiology Doctor Relationship Specialty Start Date End Date Toi Escamilla MD [address] [facility] [place] [address] PCP - General Family Medicine 09/16/18 Audiology Doctor Relationship Specialty Start Date End Date Toi Escamilla MD [address] [facility] [place] [address] PCP - General Family Medicine 09/16/18 Audiology Doctor Relationship Specialty Start Date End Date Toi Escamilla MD [address] [facility] [place] [address] PCP - General Family Medicine 09/16/18 Audiology Doctor Relationship Specialty Start Date End Date Toi Escamilla MD [address] [facility] [address] PCP - General Family Medicine 09/16/18 Audiology Doctor Relationship Specialty Start Date End Date Toi Escamilla MD [address] [facility] [place] [address] PCP - General Family Medicine 09/16/18 Audiology Doctor Relationship Specialty Start Date End Date Toi Escamilla MD [address] [facility] [place] [address] PCP - General Family Medicine 09/16/18 Audiology Doctor Relationship Specialty Start Date End Date Toi Escamilla MD [address] [facility] [place] [address] PCP - General Family Medicine 09/16/18 Audiology Doctor Relationship Specialty Start Date End Date Toi Escamilla MD [address] [facility], [place] [id number] PCP - General Family Medicine 09/16/18 Audiology Doctor Relationship Specialty Start Date End Date Toi Escaimlla MD [address] [facility], [place] [address] PCP - General Family Medicine 09/16/18 Audiology Doctor Relationship Specialty Start Date End Date Toi Escamilla MD [address] [facility], [place] [address] [facility] 09/16/18 Audiology Doctor Relationship Specialty Start Date End Date Toi Escamilla MD [address] [facility] [place] [address] PCP - General Family Medicine 09/16/18 Audiology Doctor Relationship Specialty Start Date End Date Toi Escamilla MD [address] [facility], [place] [address] [facility] 09/16/18 Audiology Doctor Relationship Specialty Start Date End Date Toi Escamilla MD [address] [facility], [place] [id number] PCP - General Family Medicine 09/16/18 INFORMATION [...] BE BASED ON THE PRIMARY CLINICAL RECORDS. [facility]. provides no warranty or guarantee of the accuracy or completeness of information in this document.
== END 2023-03-05 16:46 | disposition home or self-care (01) ==
LOC: ED 16:56
PROVIDERS: Emergency Provider Emergency Medicine; PCP Family Medicine; Visit Provider Emergency Medicine
DX: R59.0 Localized enlarged lymph nodes (principal); Z87.891 Personal history of nicotine dependence; K21.9 Gastro-esophageal reflux disease without esophagitis
CPT/HCPCS: 99282

== ENCOUNTER 2023-08-20 09:47 | Observation (INO) | payer MEDICAID, SELFPAY ==
[2023-08-20] VITALS (9 sets, daily range): BP systolic 99–134; BP diastolic 61–79; PULSE 53–77; RESP 15–16; TEMP 36.2–36.8; O2SAT 98–100; BMI 29.0; BMI 29.7
--- NOTE | 2023-08-20 10:38 | CT_ITS ---
STUDY: CT BRAIN WITHOUT CONTRAST REASON FOR EXAM: Female, 42 years old. Headache, line through vision RADIATION DOSAGE (If Supplied By Facility): CTDIvol = ( 44.99 ) mGy, DLP = ( 745.49 ) mGycm TECHNIQUE: Transaxial CT imaging of the brain was performed without administration of intravenous contrast material. Individualized dose optimization techniques were used for this CT. COMPARISON: No relevant priors. FINDINGS: Normal soft tissue structures. Normal calvarium. Normal size ventricles and extra-axial spaces for the patient''s age. Normal white matter tracts of the cerebral hemispheres. Normal basal ganglia and thalami. Normal brainstem. Normal cerebellum. There is no intracranial hemorrhage. There are no findings of an acute ischemic infarction. Normal visualized paranasal sinuses. Nasal septal deviation towards the right side of the midline. CT/Brain/Head without Contrast IMPRESSION: Normal unenhanced CT scan of the brain. Electronically Signed: Mark Weaver MD at 12:10 EDT ,
--- NOTE | 2023-08-20 10:45 | EKG12_ITS ---
Test Reason : CP Blood Pressure : / mmHG Vent. Rate : 060 BPM Atrial Rate : 060 BPM P-R Int : 152 ms QRS Dur : 088 ms QT Int : 414 ms P-R-T Axes : 028 018 030 degrees QTc Int : 414 ms Normal sinus rhythm Normal ECG Confirmed by LIBRADO OSHEA, TAL ([id number]), editor managing newspaper RUPINDER BARTON ([id number]) on 08/26/2023 10:37:05 A M Referred By: JENNIFFER Confirmed By:KIT PAVON MD
[2023-08-20] MEDS: 0.9% Normal Saline (1000mL) 1,000 ML 999 ML IV (10:51)
[2023-08-20 10:57] LABS: Absolute Lymphocyte Count 0.97 X10^3/uL (0.83-4.51); Absolute Neutrophil Count 3.4 X10^3/uL (2.0-7.7); Basophil# 0.03 X10^3/uL; Basophil% 0.6 % (0-1); Eosinophil# 0.04 X10^3/uL; Eosinophils% 0.9 % (0-5); Hemoglobin 12.9 g/dL (12.0-15.0); Lymphocyte # 0.97 X10^3/ul (0.83-4.51); Lymphocyte % 20.8 % (19-41); Mean Corp Hgb Conc 33.1 g/dL (32-36); Mean Corpuscular Hgb 28.6 pg (27.0-32.0); Mean Corpuscular Volume 86.5 fL (81-99); Mean Platelet Vol. 10.8 fl (6.2-12.0); Monocyte# 0.23 X10^3/uL; Monocyte% 4.9 % (0-10); NRBC Flagged by Analyzer 0 % (0-5); Neutrophil # 3.38 X10^3/uL (2.7-7.7); Neutrophil % 72.4 % (47-70); Platelet Count 230 K/mm3 (150-450); RBC Distribution Width CV 13.6 % (11.6-14.6); RBC Distribution Width SD 43.2 fl (35.1-43.9); Red Blood Count 4.51 M/mm3 (4.2-5.4); White Blood Count 4.7 K/mm3 (4.4-11.0)
--- NOTE | 2023-08-20 11:08 | EX.ED.DYSGE1 ---
HPI History of Present Illness Chief Complaint: Chest Pain Narrative Narrative: Patient is a 42-year-old female with a past medical history of migraine headaches on Lyrica, GERD who presents to the emergency department with chief complaint of chest discomfort and a line through her vision. Patient states that while at work this morning she noted that she developed chest discomfort she states that she attempted to work through this and thought things would improve. She states that she took a break and attempted to eat something and noted that this made her feel worse. States while attempting to rest she noted that she had a line through her vision and notes that this was abnormal for her. States that normally with her migraine headaches she will get flashes of lights however not aligned through her vision and not have any difficulty with scene. Patient states that she did feel like she may pass out. States that this roughly lasted around 15 minutes. Patient notes that she recently went on a hike and did not have any chest discomfort or any of these symptoms associated with this. Patient denies any history of blood clots. [facility] Medical History Migraine GERD (gastroesophageal reflux disease) Arthritis Home Medications ?Medication ?Instructions ?Recorded ?Last Taken ?Type albuterol sulfate 2.5 mg/3 mL 2.5 mg inhalation Q4HWA.RT PRN Sob 12/04/18 Unknown History (0.083 %) solution for nebulization &/Or Wheezing pregabalin 75 mg capsule 75 mg PO DAILY 12/15/19 08/20/23 History cholecalciferol (vitamin D3) 50 50 mcg PO DAILY 08/20/23 08/20/23 History mcg (2,000 unit) tablet (D3 DOTS) ferrous gluconate 1 tab PO DAILY 08/20/23 08/20/23 History multivitamin with iron 1 tab PO DAILY 08/20/23 08/20/23 History valacyclovir 500 mg tablet 500 mg PO DAILY 08/20/23 08/19/23 History vitamin B complex (Complex B-100 1 tab PO DAILY 08/20/23 08/20/23 History tablet,extended release) Allergy/AdvReac Type Severity Reaction Status Date / Time gabapentin (From Neurontin) Allergy Swelling Verified 08/20/23 09:49 topiramate (From Topamax) AdvReac Mild TINGLING Verified 08/20/23 09:49 prednisone AdvReac Other Verified 08/20/23 09:49 Surgical History History of bilateral tubal ligation History of Mark-en-Y gastric bypass Social History household members: significant other Smoking Status: Current every day smoker tobacco type: e-cigarettes substance use type: does not use ROS ROS ED ROS Narrative Constitutional: Complains of headache, denies any dizziness, lightheadedness, denies any fevers or chills EENT: Complained of changes in vision as noted above, denies any double vision Cardiovascular: Complains of chest discomfort as noted above denies palpitations Respiratory: Denies cough wheezing shortness of breath Gastrointestinal: Denies any nausea vomiting diarrhea or abdominal pain Genitourinary: Denies any painful radiation hematuria polyuria Extremities: Denies any pedal edema Neurologic: Denies any numbness, weakness or tingling Skin: Denies any rashes or lesions EXAM Physical Exam Narrative Exam Narrative: General: Patient was lying in bed rest comfortably did not appear to be in acute distress Head: Atraumatic, normocephalic EENT: Pupils equal round react light bilaterally, extraocular muscles intact bilateral, no conjunctival injection noted Neck: Soft, supple, trachea midline Cardiovascular: Regular rate and rhythm no murmurs gallops or rubs noted Respiratory: Clear to auscultation bilaterally no rales rhonchi wheeze noted Abdomen: Soft, nondistended, nontender to palpation, bowel sounds present x 4 Extremities: +5/5 strength of the bilateral lower extremities, no pedal edema on exam, radial pulses +2/4 in the bilateral extremities Neurological: Patient knew that she was at [facility] year is 2023 she was following commands. Patient completed finger-nose and [id number] test bilaterally with no difficulty, sensation grossly intact, and age of 0 GCS 15 Skin: Warm, dry, intact Psychiatric: Mood and affect appropriate. Const Vital Signs: 08/20/23 09:48 08/20/23 10:00 08/20/23 10:45 Temperature 98.1 F Temperature Source Temporal Pulse Rate 77 Respiratory Rate 16 Respiratory Effort Normal Non-Labored Blood Pressure 127/66 H Blood Pressure Mean 86 Pulse Ox 99 Oxygen Delivery Method Room Air Room Air 08/20/23 10:47 08/20/23 12:03 08/20/23 13:00 Temperature 97.2 F L Temperature Source Oral Pulse Rate 60 72 68 Respiratory Rate 16 15 15 Respiratory Effort Blood Pressure 117/68 129/64 H 134/79 H Blood Pressure Mean 84 85 97 Pulse Ox 100 98 98 Oxygen Delivery Method Room Air Room Air Room Air 08/20/23 13:17 Temperature 97.8 F Temperature Source Pulse Rate 58 L Respiratory Rate 16 Respiratory Effort Blood Pressure 113/72 Blood Pressure Mean 85 Pulse Ox 100 Oxygen Delivery Method MDM MDM MDM Narrative Medical decision making narrative: Patient is a 42-year-old female who presented to the emerged part with chief complaint of chest pain and changes in vision as noted above. Patient will have workup pharmacy on the differential diagnose includes but limited to ACS, TIA, pneumonia, electrolyte abnormality. Once workup is obtained and reviewed she will be reevaluated. Patient will be given Tylenol for her headache and IV fluids. Patient would not be a tenecteplase candidate as her symptoms resolved prior to arrival and only lasted approximately 15 minutes. Patient CBC reviewed and showed no evidence of leukocytosis white blood cell normal at 4.7, hemoglobin 12.9, platelet count was normal at 230. Patient's INR normal 1.2, sodium normal 137, potassium 3.7, creatinine normal at 0.62. Patient's troponin normal at 3 with a delta troponin obtained normal at 4. Patient's chest x-ray was reviewed as well which showed no acute abnormality seen. Patient CT head and brain showed normal unenhanced CT scan of the brain. Patient's EKG was reviewed as well which showed sinus rhythm rate [address] changes noted. At this point I do believe the patient warrants admission to the hospital for further evaluation management of her changes in vision for complex migraine versus TIA. Did discuss case with hospitalist Dr. Best who accepted patient for admission. Patient was notified of this plan and she is agreeable with this all question concerns were answered at bedside. Lab Data Labs: Laboratory Results - last 24 hr 08/20/23 08/20/23 08/20/23 10:00 10:56 12:55 WBC 4.7 RBC 4.51 Hgb 12.9 Hct 39.0 MCV 86.5 MCH 28.6 MCHC 33.1 RDW Std Deviation 43.2 RDW Coeff of Gee 13.6 Plt Count 230 MPV 10.8 Immature Gran % (Auto) 0.400 Neut % (Auto) 72.4 H Lymph % (Auto) 20.8 Ray % (Auto) 4.9 Eos % (Auto) 0.9 Baso % (Auto) 0.6 Absolute Neuts (auto) 3.4 Absolute Lymphs (auto) 0.97 Nucleated RBC % 0 PT 15.2 H INR 1.2 APTT 27.4 Sodium 137 Potassium 3.7 Chloride 106 Carbon Dioxide 24.0 Anion Gap 7 BUN 10 Creatinine 0.62 Estim Creat Clear Calc 139.38 Est GFR (MDRD) Af Amer 134 Est GFR (MDRD) Non-Af 111 BUN/Creatinine Ratio 16.1 Glucose 154 H Calcium 8.9 Troponin I High Sens 3 4 Radiography Diagnostic Testing: Clinical Impression(s) from Imaging Studies Brain CT 08/20/23 10:38 IMPRESSION: Normal unenhanced CT scan of the brain. Electronically Signed: Mark Weaver MD at 12:10 EDT , Chest X-Ray 08/20/23 11:25 IMPRESSION: No acute abnormality is seen. Electronically Signed: Mark Weaver MD at 12:12 EDT , Discharge Plan Triage Chief Complaint: Chest Pain ED Provider: Mihir Rivera Dx/Rx/DC Orders Clinical Impression: Headache, Change in vision, Chest pain Prescriptions: No Action albuterol sulfate 2.5 MG/3 ML solution for nebulization 2.5 mg inhalation Q4HWA.RT PRN (Reason: Sob &/Or Wheezing) Patient Comments: only when pt has bronchitis pregabalin 75 MG capsule 75 mg PO DAILY valacyclovir 500 mg tablet 500 mg PO DAILY multivitamin with iron 1 tab PO DAILY Complex B-100 Tablet Extended Release 1 tab PO DAILY ferrous gluconate 1 tab PO DAILY cholecalciferol (vitamin D3) [D3 DOTS] 50 mcg (2,000 unit) tablet 50 mcg PO DAILY Primary Care Provider: Toi Mendez Referrals: Toi Mendez MD [Primary Care Provider] - Print Language: Belgian
[2023-08-20 11:16] LABS: Anion Gap 7 (5-15); BUN 10 mg/dL (7-18); BUN/Creat Ratio 16.1 RATIO (10-20); Calcium,Total 8.9 mg/dL (8.5-10.1); Chloride 106 mmol/L (98-107); Creatinine, Serum 0.62 mg/dL (0.55-1.02); EST Glomerular Filtration Rate 111 mL/min (>60); Est Glom Filt Rate - Afr Amer 134 mL/min (>60); Estimated Creatinine Clearance 139.38 ml/min; Glucose 154 mg/dL (74-106); Potassium 3.7 mmol/L (3.5-5.1); Sodium Level 137 mmol/L (136-145); Troponin-I HS (w/2H Reflex) 3 pg/mL (3.0-54.0)
[2023-08-20 11:20] LABS: International Normalized Ratio 1.2; Prothrombin Time (Protime)PT. 15.2 SECONDS (11.7-14.9)
[2023-08-20 11:21] LABS: Partial Thromboplast Time 27.4 Seconds (24.1-36.2)
--- NOTE | 2023-08-20 11:25 | RAD_ITS ---
STUDY: X-RAY CHEST REASON FOR EXAM: Female, 42 years old. Chest pain TECHNIQUE: Single AP portable view of the chest. COMPARISON: Comparison is made with prior study September 30, 2022. FINDINGS: EKG electrodes are seen. The lungs are clear and expanded. There is no demonstrated pleural abnormality. Normal size heart. Normal mediastinum and ana. Normal visualized pulmonary arteries. Normal visualized aortic arch and descending thoracic aorta. There are degenerative changes of the visualized thoracic spine. Normal visualized ribs, clavicles, and shoulders. There is no demonstrated abnormality of the visualized soft tissue structures of the upper abdomen. RAD/Chest 1 View (Portable) IMPRESSION: No acute abnormality is seen. Electronically Signed: Mark Weaver MD at 12:12 EDT ,
[2023-08-20] MEDS: Acetaminophen 500 MG Tablet 1000 MG PO ×2 (11:49→21:46)
[2023-08-20 12:51] LABS: Reflex Troponin-HS? (from REC) Y
[2023-08-20 13:29] LABS: Troponin-I HS 4 pg/mL (3.0-54.0)
--- NOTE | 2023-08-20 14:44 | EKG12_ITS ---
Test Reason : PRE OP Blood Pressure : / mmHG Vent. Rate : 062 BPM Atrial Rate : 062 BPM P-R Int : 142 ms QRS Dur : 084 ms QT Int : 414 ms P-R-T Axes : 000 029 037 degrees QTc Int : 420 ms Normal sinus rhythm with sinus arrhythmia Normal ECG When compared with ECG of 20-AUG-2023 16:55, MANUAL COMPARISON REQUIRED, DATA IS UNCONFIRMED Confirmed by LIBRDAO OSHEA, TAL ([id number]), editor at large RUPINDER BARTON ([id number]) on 08/26/2023 10:56:10 A M Referred By: Confirmed By:KIT PAVON MD
--- NOTE | 2023-08-20 14:44 | MRI_ITS ---
STUDY: MRI BRAIN WITHOUT CONTRAST REASON FOR EXAM: Female, 42 years old. Stroke suspect, temporary blurred vison TECHNIQUE: Standardized multiplanar fat and water weighted pulse sequences were obtained. COMPARISON: CT brain August 20, 2023. MR brain February 26, 2008. FINDINGS: Normal size of the ventricles and extra-axial spaces for the patient''s age. Normal white matter tracts of the supratentorial brain. There is no evidence for recent intracranial ischemia or other cause of cytotoxic edema on diffusion weighted imaging (DWI). There is no evidence for recent intracranial ischemia or other cause of cytotoxic edema on diffusion weighted imaging (DWI). Normal bilateral basal ganglia. Normal thalami. There is no extra-axial fluid accumulation. Normal flow voids within the major intracranial circulation suggesting patency by spin echo criteria. Normal sella turcica, pituitary gland, infundibular stalk, optic chiasm and hypothalamus. Normal tectal plate and pineal gland. Normal midbrain, herberth and medulla. Normal cerebellum. Normal basal cisterns. Normal bilateral temporal bones. Normal bilateral internal auditory canals. No demonstrated orbital abnormality, within the constraints of a routine brain study. Normal visualized paranasal sinuses. Normal calvarium and skull base. Normal visualized soft tissue structures. Normal visualized upper cervical spine. MRI/Brain without Contrast IMPRESSION: Normal unenhanced MRI of the brain. Electronically Signed: Enrique Moore MD at 19:14 EDT ,
--- NOTE | 2023-08-20 14:44 | ECHOD_ITS ---
Reason For Study: Chest pain Procedure This was a 2D Doppler, Color Flow transthoracic echocardiogram. Exam performed portable in patient room. Left Ventricle Normal LV size. The estimated ejection fraction is 60 %. No evidence for diastolic dysfunction. No regional wall motion abnormalities noted. Right Ventricle Normal RV size. Normal systolic function. Atria The left and right atria are normal. No doppler evidence for ASD. Mitral Valve There is no mitral valve stenosis. Trivial mitral valve insufficiency. Tricuspid Valve There is no tricuspid stenosis. Trivial tricuspid valve insufficiency. Pulmonary artery systolic pressure is 25 mmHg. Aortic Valve Trisinus/trileaflet aortic valve. There is no aortic stenosis. No aortic valve insufficiency. Pulmonic Valve There is no pulmonic valvular stenosis. Trivial pulmonic valve insufficiency. Great Vessels Normal aortic root. Pericardium/Pleural No pericardial effusion. MMode/2D Measurements & Calculations LVIDd: 5.0 cm IVSd: 1.1 cm LVOT diam: 2.1 cm LVIDs: 3.5 cm LVPWd: 1.1 cm LVOT area: 3.4 cm2 FS: 30.4 % Ao root diam: 3.1 cm LAV(MOD-bp): 55.2 ml LVAd ap4: 35.9 cm2 LAV(MOD-bp) Indexed: 26.7 ml/m2 LVLd ap4: 8.4 cm LAV(MOD-sp2): 64.5 ml EDV(MOD-sp4): 126.2 ml LAV(MOD-sp4): 47.0 ml EDV(sp4-el): 130.2 ml LVAs ap4: 20.4 cm2 LVLs ap4: 6.9 cm ESV(MOD-sp4): 52.9 ml ESV(sp4-el): 51.3 ml EF(MOD-sp4): 58.1 % EF(sp4-el): 60.6 % LVAd ap2: 35.3 cm2 SV(MOD-sp4): 73.3 ml SV(MOD-sp2): 75.0 ml LVLd ap2: 9.0 cm EDV(MOD-sp2): 121.2 ml EDV(sp2-el): 117.5 ml LVAs ap2: 19.2 cm2 LVLs ap2: 7.4 cm ESV(MOD-sp2): 46.2 ml ESV(sp2-el): 41.9 ml EF(MOD-sp2): 61.9 % SV(sp4-el): 78.8 ml LA dimension(2D): 3.6 cm LA A4 area: 18.0 cm2 RA A4 area: 17.7 cm2 TAPSE: 2.4 cm Time Measurements MV dec time: 0.23 sec Doppler Measurements & Calculations MV E max jude: 79.8 cm/sec Lat Peak E' Jude: 16.0 cm/sec Med Peak E' Jude: 13.0 cm/sec MV A max jude: 69.7 cm/sec E/E' lat: 5.0 E/E' med: 6.2 MV E/A: 1.1 Ao V2 max: 146.3 cm/sec LV V1 max: 123.9 cm/sec MV dec slope: 344.2 cm/sec2 Ao max P.6 mmHg LV V1 max P.1 mmHg Ao V2 mean: 102.1 cm/sec LV V1 mean P.3 mmHg Ao mean P.8 mmHg LV V1 mean: 83.6 cm/sec Ao V2 VTI: 36.7 cm LV V1 VTI: 29.9 cm AV (velocity ratio): 0.81 DIAMOND(I,D): 2.7 cm2 DIAMOND(V,D): 2.8 cm2 SV(LVOT): 100.5 ml PA V2 max: 116.8 cm/sec TR max jude: 220.8 cm/sec PA max PG (full): 2.6 mmHg TR max P.5 mmHg ECHO/Echo Complete Interpretation Summary The estimated ejection fraction is 60 %. No evidence for diastolic dysfunction. Trivial mitral valve insufficiency. Ordering Physician: Adrian Jones Performed By: Stephania Fields RDCS and Student
--- NOTE | 2023-08-20 14:46 | PCM.HP.STD ---
HPI - General General Date of Admission: 08/20/23 Date of Service: 08/20/23 Chief Complaint: Chest pain, migraine-like symptoms, today. HPI Narrative RAUL FLEMING, is a 42 F came to ED when she had sudden onset of chest pain around 7 AM. She felt sharp chest pain midsternal region without radiation to neck back but associated with mild shortness of breath. After some time she also felt flashes of light before eyes, blurry vision and then he started having headache. She has history of chronic migraine headache but did not had acute episode for last 3 years. She said she has triptan at home but she did not require it for last 3 years. 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 There is no acute precipitating exacerbating or relieving factor. In ED, chest pain much improved but he still has mild pain. Still mild headache but blurry vision is improved. She has history of syndrome diagnosed about 3 years ago but did not had a stress test or echo. She said she has 2-3 panic attack with chronic anxiety disorder and gets very tachycardic. In ED, twelve-lead EKG shows normal sinus rhythm 60 bpm. QTc 440 ms. First troponin normal. Patient further admitted. Patient is states her father has a history of coronary artery disease. She is herself a smoker, e-cigarettes. [facility] Medical History (Updated 08/20/23 @ 14:[address] Adrian Jones MD) Migraine GERD (gastroesophageal reflux disease) Arthritis Home Medications ?Medication ?Instructions ?Recorded ?Last Taken ?Type albuterol sulfate 2.5 mg/3 mL 2.5 mg inhalation Q4HWA.RT PRN Sob 12/04/18 Unknown History (0.083 %) solution for nebulization &/Or Wheezing pregabalin 75 mg capsule 75 mg PO DAILY 12/15/19 08/20/23 History cholecalciferol (vitamin D3) 50 50 mcg PO DAILY 08/20/23 08/20/23 History mcg (2,000 unit) tablet (D3 DOTS) ferrous gluconate 1 tab PO DAILY 08/20/23 08/20/23 History multivitamin with iron 1 tab PO DAILY 08/20/23 08/20/23 History valacyclovir 500 mg tablet 500 mg PO DAILY 08/20/23 08/19/23 History vitamin B complex (Complex B-100 1 tab PO DAILY 08/20/23 08/20/23 History tablet,extended release) Allergy/AdvReac Type Severity Reaction Status Date / Time gabapentin (From Neurontin) Allergy Swelling Verified 08/20/23 09:49 topiramate (From Topamax) AdvReac Mild TINGLING Verified 08/20/23 09:49 prednisone AdvReac Other Verified 08/20/23 09:49 Surgical History History of Mark-en-Y gastric bypass History of bilateral tubal ligation Social History household members: significant other Smoking Status: Current every day smoker tobacco type: e-cigarettes substance use type: does not use ROS ROS Narrative Constitutional: Denies chronic fatigue and weakness. No fever. No recent flulike symptoms HEENT: Reports systems reviewed and no addt'l complaints, except as documented Respiratory/Chest: No respiratory distress or wheezing. CVS: As described in HPI. Gastrointestinal: Denies coffee ground emesis, hematemesis or vomiting Genitourinary: Denies burning urination or new urinary tract symptoms Musculoskeletal: Denies acute joint pain or limited range of motion. No acute injury Neurologic: Denies seizure-like symptoms. skin: No ulcer. No rash Endocrinology: Reports systems reviewed and no addt'l complaints, except as documented Hematologic/Lymphatic: Reports systems reviewed and no addt'l complaints, except as documented Rest 14 ROS are negative except as mentioned in HPI Vital Signs Vital Signs Vital Signs: 08/20/23 09:48 08/20/23 10:00 08/20/23 10:45 Temperature 98.1 F Temperature Source Temporal Pulse Rate 77 Respiratory Rate 16 Respiratory Effort Normal Non-Labored Blood Pressure 127/66 H Blood Pressure Mean 86 Blood Pressure Source Blood Pressure Position Blood Pressure Location Pulse Ox 99 Oxygen Delivery Method Room Air Room Air 08/20/23 10:47 08/20/23 12:03 08/20/23 13:00 Temperature 97.2 F L Temperature Source Oral Pulse Rate 60 72 68 Respiratory Rate 16 15 15 Respiratory Effort Blood Pressure 117/68 129/64 H 134/79 H Blood Pressure Mean 84 85 97 Blood Pressure Source Blood Pressure Position Blood Pressure Location Pulse Ox 100 98 98 Oxygen Delivery Method Room Air Room Air Room Air 08/20/23 13:17 08/20/23 14:25 Temperature 97.8 F 98.2 F Temperature Source Oral Pulse Rate 58 L 53 L Respiratory Rate 16 16 Respiratory Effort Blood Pressure 113/72 99/64 Blood Pressure Mean 85 75 Blood Pressure Source Monitor Blood Pressure Position Left Lateral Blood Pressure Location Right Arm Pulse Ox 100 99 Oxygen Delivery Method Room Air Weight Weight: 201 lb 0.985 oz Body Mass Index (BMI) 29.7 Physical Exam Narrative General: Alert, Oriented x3, Cooperative HEENT: Atraumatic, PERRLA, EOMI, Normocephalic. Visual field 1-1 normal. Oral: Oral mucosa moist. No Gingival or Mucosal Lesions/ Ulcerations Neck: Supple, No JVD, Negative Carotid Bruits Chest wall/Lungs: Air entry diminished in bilateral lung bases. No crepitation/rhonchi Cardiovascular: Regular rate, Regular Rhythm, Normal S1, Normal S2, No M/G/R Abdomen: Bowel Sounds Present, Soft, Non Tender, Non-Distended : No dysuria. No renal angle tenderness. No suprapubic tenderness. Extremities: No edema, Capillary Refill Less than 3 Seconds Skin: No rashes, No breakdown Musculoskeletal: No Tenderness to Palpation of Joints or Extremities. ROM full and intact. Neurological: Cranial nerves II-XII grossly intact, DTR 2+/4. No acute focal neurological deficit. NIH stroke scale 0. Psych/Mental Status: Normal Affect, Appropriate. Results Lab / Micro Data 08/20/23 10:00 08/20/23 10:00 Labs: Laboratory Results - last 24 hr 08/20/23 10:00: WBC 4.7, RBC 4.51, Hgb 12.9, Hct 39.0, MCV 86.5, MCH 28.6, MCHC 33.1, RDW Std Deviation 43.2, RDW Coeff of Gee 13.6, Plt Count 230, MPV 10.8, Immature Gran % (Auto) 0.400, Neut % (Auto) 72.4 H, Lymph % (Auto) 20.8, Schleicher % (Auto) 4.9, Eos % (Auto) 0.9, Baso % (Auto) 0.6, Absolute Neuts (auto) 3.4, Absolute Lymphs (auto) 0.97, Nucleated RBC % 0, Sodium 137, Potassium 3.7, Chloride 106, Carbon Dioxide 24.0, Anion Gap 7, BUN 10, Creatinine 0.62, Estim Creat Clear Calc 139.38, Est GFR (MDRD) Af Amer 134, Est GFR (MDRD) Non-Af 111, BUN/Creatinine Ratio 16.1, Glucose 154 H, Calcium 8.9, Troponin I High Sens 3 08/20/23 10:56: PT 15.2 H, INR 1.2, APTT 27.4 08/20/23 12:55: Troponin I High Sens 4 Imaging Radiology Impression Brain CT 08/20/23 10:38 IMPRESSION: Normal unenhanced CT scan of the brain. Electronically Signed: Mark Weaver MD at 12:10 EDT , Chest X-Ray 08/20/23 11:25 IMPRESSION: No acute abnormality is seen. Electronically Signed: Mark Weaver MD at 12:12 EDT , Assessment & Plan Assessment/Plan (1) Chest pain: (2) Migraine: PLAN: Plan This is 42-year-old female came to ED mainly for chest pain but later on developed visual symptoms, blurry vision and headache 1. Atypical chest pain with history of chronic tachybradycardia syndrome: Patient is being admitted in PCU. Twelve-lead EKG is normal. First 2 troponins are normal. Aspirin was given in the ED. If troponin is normal, treadmill nuclear stress test ordered for tomorrow AM. 2D echo is ordered for tachybradycardia syndrome. Chest x-ray no acute abnormality. She is on pregabalin as migraine prophylaxis at home. 2. Blurry vision with headache possible acute migraine headache, rule out TIA/stroke: Patient clinical presentation most likely acute migraine headache, stroke very less likely. CT head unenhanced reported normal. MRI brain ordered. If MRI is abnormal will need further CT angiogram of head and neck. 3. Chronic anxiety disorder with history of panic attack: This might be differential for her atypical chest pain. Advised outpatient follow-up. 4. GERD: Patient not on PPI. Probably controlled. DVT prophylaxis, low risk, early ambulation encouraged. Living will/advanced directive/end of life care: Patient does not have living will or advanced directive. Her boyfriend is next of kin. Does not have diarrhea power of commercial real estate attorney for health. After discussion of benefits/risks procedures involved with full code, DNR CC arrest and DNR CC, the patient opted for full code. Patient does want artificial life support including intubation, tube feed, ventilator and/chest compression, central venous catheter, vasopressor and DC shock if needed Total time spent in [id number] encounter in discussion of advanced directive 17 minutes. Laboratory Results 08/20/23 10:00: WBC 4.7, RBC 4.51, Hgb 12.9, Hct 39.0, MCV 86.5, MCH 28.6, MCHC 33.1, RDW Std Deviation 43.2, RDW Coeff of Gee 13.6, Plt Count 230, MPV 10.8, Immature Gran % (Auto) 0.400, Neut % (Auto) 72.4 H, Lymph % (Auto) 20.8, Schleicher % (Auto) 4.9, Eos % (Auto) 0.9, Baso % (Auto) 0.6, Absolute Neuts (auto) 3.4, Absolute Lymphs (auto) 0.97, Nucleated RBC % 0, Sodium 137, Potassium 3.7, Chloride 106, Carbon Dioxide 24.0, Anion Gap 7, BUN 10, Creatinine 0.62, Estim Creat Clear Calc 139.38, Est GFR (MDRD) Af Amer 134, Est GFR (MDRD) Non-Af 111, BUN/Creatinine Ratio 16.1, Glucose 154 H, Calcium 8.9, Troponin I High Sens 3 08/20/23 10:56: PT 15.2 H, INR 1.2, APTT 27.4 08/20/23 12:55: Magnesium Pending, Troponin I High Sens 4 Clinical Impression(s) from Imaging Studies Brain CT 08/20/23 10:38 IMPRESSION: Normal unenhanced CT scan of the brain. Electronically Signed: Mark Weaver MD at 12:10 EDT , Chest X-Ray 08/20/23 11:25 IMPRESSION: No acute abnormality is seen. Electronically Signed: Mark Weaver MD at 12:12 EDT , Charges/Coding Visit Charges Inpatient E&M: 29653 Init Hosp L3
[2023-08-20 14:58] LABS: Magnesium 2.1 mg/dL (1.6-2.6)
[2023-08-20] MEDS: Lactated Ringers 1,000 ML 100 ML IV (16:08)
[2023-08-20] MEDS: 0.9% Saline Lock 10 ML Syringe IV (16:08)
[2023-08-20 16:59] LABS: Troponin-I HS 3 pg/mL (3.0-54.0)
[2023-08-20] MEDS: Atorvastatin Calcium 80 MG Tablet PO (21:46)
[2023-08-21 01:36] VITALS: BP 91/61; PULSE 61; RESP 17; TEMP 36.3; O2SAT 98
[2023-08-21 05:37] LABS: Anion Gap 4 (5-15); BUN 9 mg/dL (7-18); BUN/Creat Ratio 21.6 RATIO (10-20); Calcium,Total 8.5 mg/dL (8.5-10.1); Chloride 112 mmol/L (98-107); Cholesterol 115 mg/dL (200); Creatinine, Serum 0.42 mg/dL (0.55-1.02); EST Glomerular Filtration Rate 176 mL/min (>60); Est Glom Filt Rate - Afr Amer 213 mL/min (>60); Estimated Creatinine Clearance 207.76 ml/min; Glucose 93 mg/dL (74-106); High Density Lipoprotein 57 mg/dL; Potassium 3.9 mmol/L (3.5-5.1); Sodium Level 141 mmol/L (136-145); Thyroid Stim Hormone (TSH) 1.91 uIU/mL (0.358-3.74); Triglycerides 35 mg/dL; Very Low Density Lipoprotein 7 mg/dL (5-40)
--- NOTE | 2023-08-21 05:55 | EKG12_ITS ---
Test Reason : CHEST PAIN Blood Pressure : / mmHG Vent. Rate : 050 BPM Atrial Rate : 050 BPM P-R Int : 136 ms QRS Dur : 084 ms QT Int : 430 ms P-R-T Axes : -25 017 036 degrees QTc Int : 392 ms Sinus bradycardia Otherwise normal ECG When compared with ECG of 20-AUG-2023 10:41, MANUAL COMPARISON REQUIRED, DATA IS UNCONFIRMED Confirmed by LIBRADO OSHEA, TAL ([id number]), loan expeditor RUPINDER BARTON ([id number]) on 08/26/2023 10:58:04 A M Referred By: Confirmed By:KIT PAVON MD
[2023-08-21 06:47] VITALS: BP 94/62; PULSE 58; RESP 17; TEMP 36.4; O2SAT 99
--- NOTE | 2023-08-21 08:07 | PCM.PN.HOSP ---
Reason for Visit Reason for Visit: Diagnoses Migraine, unspecified, not intractable, without status migrainosus (08/20/23) Chest pain, unspecified (08/20/23) Subjective Subjective No further chest pain. Patient stated that her headache was not typical of her migraines as it is frontal and then had some visual changes are not typical of her typical scotoma. Typically with her migraines she will have the scotoma and then the migraine will happen and that will be in the back of her head. Objective Data Objective Data Vital Signs: Vital Signs Temp Pulse Resp BP Pulse Ox O2 Del Method 36.4 C L 58 L 17 94/62 99 Room Air 08/21/23 06:47 08/21/23 06:47 08/21/23 06:47 08/21/23 06:47 08/21/23 06:47 08/21/23 06:47 Oxygen Delivery Method Room Air Weight: 91.2 kg Body Mass Index (BMI) 29.7 Intake & Output: Intake and Output for Last 24 Hours 08/19/23 08/20/23 08/21/23 23:59 23:59 23:59 Intake Total 1760 / 1760 1000 / 1000 Balance 1760 / 1760 1000 / 1000 Lab / Micro Data 08/20/23 10:00 08/21/23 04:29 Labs: Laboratory Results - last 24 hr 08/20/23 10:00: WBC 4.7, RBC 4.51, Hgb 12.9, Hct 39.0, MCV 86.5, MCH 28.6, MCHC 33.1, RDW Std Deviation 43.2, RDW Coeff of Gee 13.6, Plt Count 230, MPV 10.8, Immature Gran % (Auto) 0.400, Neut % (Auto) 72.4 H, Lymph % (Auto) 20.8, [place] % (Auto) 4.9, Eos % (Auto) 0.9, Baso % (Auto) 0.6, Absolute Neuts (auto) 3.4, Absolute Lymphs (auto) 0.97, Nucleated RBC % 0, Sodium 137, Potassium 3.7, Chloride 106, Carbon Dioxide 24.0, Anion Gap 7, BUN 10, Creatinine 0.62, Estim Creat Clear Calc 139.38, Est GFR (MDRD) Af Amer 134, Est GFR (MDRD) Non-Af 111, BUN/Creatinine Ratio 16.1, Glucose 154 H, Calcium 8.9, Troponin I High Sens 3 08/20/23 10:56: PT 15.2 H, INR 1.2, APTT 27.4 08/20/23 12:55: Magnesium 2.1, Troponin I High Sens 4 08/20/23 15:59: Troponin I High Sens 3 08/21/23 04:29: Sodium 141, Potassium 3.9, Chloride 112 H, Carbon Dioxide 25.0, Anion Gap 4 L, BUN 9, Creatinine 0.42 L, Estim Creat Clear Calc 207.76, Est GFR (MDRD) Af Amer 213, Est GFR (MDRD) Non-Af 176, BUN/Creatinine Ratio 21.6 H, Glucose 93, Calcium 8.5, Triglycerides 35, Cholesterol 115, LDL Cholesterol 51, VLDL Cholesterol 7, HDL Cholesterol 57, TSH 1.91 Radiography Diagnostic Testing: Radiology Impression Brain CT 08/20/23 10:38 IMPRESSION: Normal unenhanced CT scan of the brain. Electronically Signed: Mark Weaver MD at 12:10 EDT , Chest X-Ray 08/20/23 11:25 IMPRESSION: No acute abnormality is seen. Electronically Signed: Mark Weaver MD at 12:12 EDT , Brain MRI 08/20/23 14:44 IMPRESSION: Normal unenhanced MRI of the brain. Electronically Signed: Enrique Moore MD at 19:14 EDT , Physical Exam Const alert and no apparent distress HEENT head/scalp atraumatic and moist oral mucous membranes Resp normal respiratory effort, no retractions, no use of accessory muscles and clear to auscultation bilaterally Cardio regular rate, regular rhythm, S1 normal heart sound and S2 normal heart sound GI normal to inspection, nondistended, normoactive bowel sounds, soft to palpation, non-tender and non-distended Extremity normal to inspection and full ROM Neuro Sensorium / Orientation: awake and alert Assessment & Plan Assessment/Plan (1) Chest pain: (2) Migraine: PLAN: Plan chest pain Troponins negative Stress test negative Echo completed shows an EF of 60%. Unclear etiology but certainly not cardiac. Did discuss with the patient though she does not have reflux that could be an esophageal spasm. Headache Per the patient, this is not typical of her migraines as the location was frontal and typically her migraines are posterior and did not begin with visual symptoms with the visual symptoms began afterwards. MRI negative. Currently her symptoms resolved. No additional workup. Chronic conditions: Chronic anxiety disorder with history of panic attack: This might be differential for her atypical chest pain. Advised outpatient follow-up. GERD: Patient not on PPI. Probably controlled. DVT prophylaxis, low risk, early ambulation encouraged.
[2023-08-21 09:06] VITALS: BMI 29.7
--- NOTE | 2023-08-21 12:45 | STRESSREP ---
Stress Test Report Date: 08/21/2023 Procedure: Exercise tolerance test/imaging study Indications: Chest pain Consent: Per the patient Procedure: The patient exercised on a [place] protocol for 8 minutes achieving a peak heart rate of 150 bpm (84% predicted maximal heart rate) with a peak blood pressure 154/64 mmHg and a peak MET capacity of 10.1 METs. The baseline ECG demonstrated normal sinus rhythm. The peak exercise ECG demonstrated no significant ischemic changes. EKG during recovery revealed no significant ischemic changes [There were no cardiac dysrhythmias pretest, during exercise, or recovery]. The functional capacity was considered normal for age. There was [no complaint of chest discomfort during exercise or recovery]. The examination was discontinued secondary to dyspnea, leg discomfort. Impression: 1. Technically adequate exercise tolerance test 2. Stress test is negative for exercise-induced EKG changes of ischemia 3. The test test is negative for exercise-induced chest pain 4. Functional capacity is normal for age 5. Nuclear images pending Myocardial perfusion imaging study: Technique: The patient was injected with 11 mCi of technetium 99m Cardiolite and subsequently rest SPECT Cardiolite nuclear imaging was obtained in the horizontal long, vertical long, and short axis views. The patient exercised on a [place] protocol. Please see above for details. The patient was injected with 34.2 mCi of technetium 99m Cardiolite and subsequently stress SPECT Cardiolite nuclear imaging was obtained in the horizontal long, vertical long, and short axis views. A gated Cardiolite study at peak stress was obtained. Interpretation: Rest and stress SPECT Cardiolite nuclear imaging status post realignment, normalization, and attenuation correction, demonstrates no evidence of significant ischemia or infarction. The gated Cardiolite study demonstrates no significant regional wall motion abnormalities. The reported LVEF is 62%. Impression: 1. There is no evidence of significant ischemia or infarction. 2. The gated Cardiolite study reports an LVEF of 62%. This note was generated with [employer] software. It may contain incorrect words, spelling, and punctuation that were not noted in checking the note before signing.
[2023-08-21 12:50] VITALS: BP 106/75; PULSE 71; RESP 16; TEMP 36.5; O2SAT 98
[2023-08-21] MEDS: Aspirin 81 MG TAB.CHEW PO (12:59)
--- NOTE | 2023-08-21 14:18 | PCM.DC.SUM ---
Providers Date of Admission: 08/20/23 Primary Care Physician: Dr. Toi Mendez MD Reason For Visit: CHEST PAIN Diagnosis Discharge Diagnosis (1) Chest pain: Status: Acute Code(s): R07.9 - Chest pain, unspecified (2) Migraine: Status: Acute Code(s): G43.909 - Migraine, unspecified, not intractable, without status migrainosus Plan chest pain Troponins negative Stress test negative Echo completed shows an EF of 60%. Unclear etiology but certainly not cardiac. Did discuss with the patient though she does not have reflux that could be an esophageal spasm. Headache Per the patient, this is not typical of her migraines as the location was frontal and typically her migraines are posterior and did not begin with visual symptoms with the visual symptoms began afterwards. MRI negative. Currently her symptoms resolved. No additional workup. Chronic conditions: Chronic anxiety disorder with history of panic attack: This might be differential for her atypical chest pain. Advised outpatient follow-up. GERD: Patient not on PPI. Probably controlled. DVT prophylaxis, low risk, early ambulation encouraged. Medications at Discharge Home Medications albuterol sulfate 2.5 mg/3 mL (0.083 %) solution for nebulization 2.5 mg inhalation Q4HWA.RT PRN Sob &/Or Wheezing 12/04/18 pregabalin 75 mg capsule 75 mg PO DAILY 12/15/19 cholecalciferol (vitamin D3) 50 mcg (2,000 unit) tablet (D3 DOTS) 50 mcg PO DAILY 08/20/23 ferrous gluconate 1 tab PO DAILY 08/20/23 multivitamin with iron 1 tab PO DAILY 08/20/23 valacyclovir 500 mg tablet 500 mg PO DAILY 08/20/23 vitamin B complex (Complex B-100 tablet,extended release) 1 tab PO DAILY 08/20/23 Hospital Course Operations None Procedures 2-D Echocardiogram and Stress test Summary of Care Provided Hospital Course: Patient presents with chest pain. Your cardiac workup was negative including stress test and echocardiogram. Etiology of the chest pain is unclear but may have been esophageal spasm but this is certainly not cardiac and no additional inpatient workup is necessary. Patient also did have a headache. Patient does have history of migraines but this is rather atypical from her migraines. She did have MRI that was negative. No additional workup is necessary. Weight / BMI Weight Weight: 91.2 kg Body Mass Index (BMI) 29.7 ABG / Lab / Microbiology Data 08/20/23 10:00 08/21/23 04:29 Laboratory: Laboratory Results - last 24 hr 08/20/23 12:55: Magnesium 2.1 08/20/23 15:59: Troponin I High Sens 3 08/21/23 04:29: Sodium 141, Potassium 3.9, Chloride 112 H, Carbon Dioxide 25.0, Anion Gap 4 L, BUN 9, Creatinine 0.42 L, Estim Creat Clear Calc 207.76, Est GFR (MDRD) Af Amer 213, Est GFR (MDRD) Non-Af 176, BUN/Creatinine Ratio 21.6 H, Glucose 93, Calcium 8.5, Triglycerides 35, Cholesterol 115, LDL Cholesterol 51, VLDL Cholesterol 7, HDL Cholesterol 57, TSH 1.91 Radiography Diagnostic Testing: Radiology Impression Brain MRI 08/20/23 14:44 IMPRESSION: Normal unenhanced MRI of the brain. Electronically Signed: Enrique Moore MD at 19:14 EDT Reading Location ID and State: [facility] [place] Tel , Service support , Echocardiogram 08/20/23 14:44 Interpretation Summary The estimated ejection fraction is 60 %. No evidence for diastolic dysfunction. Trivial mitral valve insufficiency. Ordering Physician: Adrian Jones Performed By: Stephania Fields RDCS and Student D/C Instructions Discharge Diet: No restrictions Meaningful Use Info Meaningful Use Meaningful Use Diagnoses (Choose all that apply): None applicable Ischemic Stroke Statin Dosing Therapy Reference: STATIN DOSE THERAPY REFERENCE: * Patients > 75 years receive moderate or high dose statin therapy. * Patients 75 years or YOUNGER should receive HIGH intensity statin dose unless contraindicated. You will be required to document reason for non-treatment if statin daily dose does not meet guidelines. HIGH DOSE STATIN THERAPY DAILY Atorvastatin > than or = to 40 mg Rosuvastatin > than or = to 20 mg Amlodipine + Atorvastatin > than or = to 2.5/40 mg Ezetimibe + Simvastatin 10/80 mg Simvastatin 80mg Discharge Plan Admission Admit Date/Time: 08/20/23 13:19 Primary Reason for Your Visit: Chest pain Attending Provider: Willard Soria Primary Care Provider: Toi Mendez Consulting Providers: Adrian Jones Instructions Additional Instructions / Restrictions: Your chest pain workup was normal. Here cardiac enzymes (which are lab tests), stress test and echocardiogram were all unremarkable. It is unclear what your chest pain was due to but certainly not your heart. Possibly could be related with the spasm of your esophagus. With your headache your MRI was negative for any source of that. Discharge Orders/Prescriptions Prescriptions: Continued albuterol sulfate 2.5 MG/3 ML solution for nebulization 2.5 mg inhalation Q4HWA.RT PRN (Reason: Sob &/Or Wheezing) Patient Comments: only when pt has bronchitis pregabalin 75 MG capsule 75 mg PO DAILY valacyclovir 500 mg tablet 500 mg PO DAILY multivitamin with iron 1 tab PO DAILY Complex B-100 Tablet Extended Release 1 tab PO DAILY ferrous gluconate 1 tab PO DAILY cholecalciferol (vitamin D3) [D3 DOTS] 50 mcg (2,000 unit) tablet 50 mcg PO DAILY Referrals / Follow Up: Toi Mendez MD [Primary Care Provider] - Disposition Disposition (needs filled in before D/C Order can be placed): Home, Self Care Charges/Coding Visit Charges Inpatient E&M: 29547 Disch Hosp
--- NOTE | 2023-08-21 14:31 | PHA.DC.MR.R ---
Pharmacy [place] Med Reconciliation Pharmacy Service has performed discharge medication reconciliation for this patient. The patient's discharge medication list was reviewed for discrepancies and discrepancies were resolved. Medications at Discharge Home Medications albuterol sulfate 2.5 mg/3 mL (0.083 %) solution for nebulization 2.5 mg inhalation Q4HWA.RT PRN Sob &/Or Wheezing 12/04/18 pregabalin 75 mg capsule 75 mg PO DAILY 12/15/19 cholecalciferol (vitamin D3) 50 mcg (2,000 unit) tablet (D3 DOTS) 50 mcg PO DAILY 08/20/23 ferrous gluconate 1 tab PO DAILY 08/20/23 multivitamin with iron 1 tab PO DAILY 08/20/23 valacyclovir 500 mg tablet 500 mg PO DAILY 08/20/23 vitamin B complex (Complex B-100 tablet,extended release) 1 tab PO DAILY 08/20/23
--- NOTE | 2023-08-21 14:54 | CASEMGMT ---
Patient has order for discharge. RN CM in to discuss needs at discharge. Patient denies needs or help at discharge. Patient had no further questions or concerns.
[2023-08-21 23:34] LABS: Hemoglobin A1c 4.8 % (3.8-5.6)
== END 2023-08-21 14:22 | disposition home or self-care (01) ==
LOC: ED 11:06 → PCU 14:01
PROVIDERS: Admitting Provider Internal Medicine; Emergency Provider Emergency Medicine; PCP Family Medicine
DX: R07.89 Other chest pain (principal); F17.290 Nicotine dependence, other tobacco product, uncomplicated; G43.909 Migraine, unspecified, not intractable, without status migrainosus; K21.9 Gastro-esophageal reflux disease without esophagitis; Z79.899 Other long term (current) drug therapy; R06.02 Shortness of breath; Z82.49 Family history of ischemic heart disease and other diseases of the circulatory system
CPT/HCPCS: A4216; 36415; 70450; 70551; 71045; 78452; 80048; 80061; 83036; 83735; 84443; 84484; 85025; 85610; 85730; 93005; 93017; 93306; 94668; 96360; 96361; 99221; 99285; A9500; J7030; J7120; G0378

== ENCOUNTER 2023-09-02 01:08 | Emergency (ER) | payer MEDICAID, SELFPAY ==
[2023-09-02 01:09] VITALS: BP 114/73; PULSE 95; RESP 16; TEMP 36.4; O2SAT 96
--- NOTE | 2023-09-02 01:36 | RAD_ITS ---
EXAM: XR LEFT RIBS, 2 VIEWS CLINICAL INDICATION: injury injury TECHNIQUE: Frontal and oblique views of the left ribs. COMPARISON: Chest x-ray 09/02/2023. FINDINGS: LUNGS AND PLEURAL SPACES: Unremarkable. No consolidation or edema. No pneumothorax. No effusion. BONES/JOINTS: Unremarkable. No displaced fracture. No sclerotic or destructive changes observed. SOFT TISSUES: Unremarkable. No soft tissue swelling or gas. RAD/Ribs Unil 2V No CXR IMPRESSION: No evidence of displaced rib fracture. Electronically Signed: Rodney Ennis MD at 2:26 EDT Reading Location ID and State: [facility] / [place] , Service support ,
--- NOTE | 2023-09-02 01:36 | RAD_ITS ---
EXAM: XR CHEST, 2 VIEWS CLINICAL INDICATION: left chest, rib pain left chest, rib pain TECHNIQUE: Frontal and lateral views of the chest. COMPARISON: Chest x-ray 08/20/2023. X-ray left ribs done today. FINDINGS: LUNGS AND PLEURAL SPACES: Unremarkable. No consolidation or edema. No pneumothorax. No effusion. HEART: Unremarkable. Cardiac silhouette not enlarged. MEDIASTINUM: Central airways and mediastinal contour are unremarkable. BONES/JOINTS: Unremarkable. No acute fracture. SOFT TISSUES: Unremarkable. RAD/Chest PA and Lateral IMPRESSION: No radiographic evidence of acute cardiopulmonary disease. Electronically Signed: Rodney Ennis MD at 2:26 EDT Reading Location ID and State: [facility] / [place] , Service support ,
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
[2023-09-02] MEDS: HYDROcodone Bitartrate/Apap 5/325 Tablet PO (01:47)
[2023-09-02 02:41] VITALS: BP 145/82; PULSE 82; RESP 16; TEMP 37; O2SAT 100
== END 2023-09-02 02:42 | disposition home or self-care (01) ==
PROVIDERS: Emergency Provider Emergency Medicine; PCP Family Medicine; Visit Provider Emergency Medicine
DX: S29.011D Strain of muscle and tendon of front wall of thorax, subsequent encounter (principal); F17.210 Nicotine dependence, cigarettes, uncomplicated; K21.9 Gastro-esophageal reflux disease without esophagitis; Z98.84 Bariatric surgery status; W22.8XXD Striking against or struck by other objects, subsequent encounter
CPT/HCPCS: 71046; 71100; 99282

== ENCOUNTER 2024-06-02 14:38 | Emergency (ER) | payer MEDICAID, SELFPAY ==
[2024-06-02 14:39] VITALS: BP 111/68; PULSE 71; RESP 16; TEMP 37.1; O2SAT 97; BMI 28.0
--- NOTE | 2024-06-02 15:02 | EDS_ITS ---
HPI History of Present Illness Chief Complaint: Wound Narrative Narrative: 43-year-old female states that she had plastic surgery on her pannus in March, approximately 3 months ago. This was performed by Dr. Sterling with the [facility] out of [place]. Since then, she has had areas of wound dehiscence and abscess development and spitting stitches. She has been on antibiotics intermittently. Most recently, an area on the left side of her abdomen that had dehisced previously started opening up a little more and draining yellow fluid. She had her plastic surgeon/nurse practitioner call her in antibiotics and started Bactrim, but today she spiked a fever as high as 101 ?F. She felt shaky as well. She called them and she was told to come to the emergency department for evaluation. She has an appointment with them tomorrow however. She was concerned because while she has been dealing with wound abscesses and infections, she spiked a fever today. [facility] Medical History (Updated 06/02/24 @ 16:09 by Carlos Dockery MD) Migraine GERD (gastroesophageal reflux disease) Arthritis GERD (gastroesophageal reflux disease) Osteoarthritis Home Medications ?Medication ?Instructions ?Recorded ?Last Taken ?Type albuterol sulfate 2.5 mg/3 mL 2.5 mg inhalation Q4HWA. RT PRN Sob 12/04/18 Unknown History (0.083 %) solution for nebulization &/Or Wheezing pregabalin 75 mg capsule 75 mg PO DAILY nerves/pain 1 02/13/19 08/20/23 History cholecalciferol (vitamin D3) 50 50 mcg PO DAILY supple ment 08/20/23 08/20/23 History mcg (2,000 unit) tablet (D3 DOTS) multivitamin with iron 1 tab PO DAILY supplement 08/20/23 History valacyclovir 500 mg tablet 500 mg PO DAILY HSV 4 08/19/23 History vitamin B complex (Complex B-100 1 tab PO DAILY supple ment 08/20/23 08/20/23 History tablet,extended release) sumatriptan succinate 100 mg tablet 100 mg PO .COMPLEX 09/02/23 Unknown History alprazolam 0.5 mg tablet (Xanax) 0.5 mg PO QDAY 03/08/
--- NOTE | 2024-06-02 15:02 | EX.ED.DYSGE1 ---
HPI History of Present Illness Chief Complaint: Wound Narrative Narrative: 43-year-old female states that she had plastic surgery on her pannus in March, approximately 3 months ago. This was performed by Dr. Sterling with the [facility] out of [place]. Since then, she has had areas of wound dehiscence and abscess development and spitting stitches. She has been on antibiotics intermittently. Most recently, an area on the left side of her abdomen that had dehisced previously started opening up a little more and draining yellow fluid. She had her plastic surgeon/nurse practitioner call her in antibiotics and started Bactrim, but today she spiked a fever as high as 101 ?F. She felt shaky as well. She called them and she was told to come to the emergency department for evaluation. She has an appointment with them tomorrow however. She was concerned because while she has been dealing with wound abscesses and infections, she spiked a fever today. [facility] Medical History (Updated 06/02/24 @ 16:09 by Carlos Dockery MD) Migraine GERD (gastroesophageal reflux disease) Arthritis GERD (gastroesophageal reflux disease) Osteoarthritis Home Medications ?Medication ?Instructions ?Recorded ?Last Taken ?Type albuterol sulfate 2.5 mg/3 mL 2.5 mg inhalation Q4HWA.RT PRN Sob 12/04/18 Unknown History (0.083 %) solution for nebulization &/Or Wheezing pregabalin 75 mg capsule 75 mg PO DAILY nerves/pain 12/15/19 08/20/23 History cholecalciferol (vitamin D3) 50 50 mcg PO DAILY supplement 08/20/23 08/20/23 History mcg (2,000 unit) tablet (D3 DOTS) multivitamin with iron 1 tab PO DAILY supplement 08/20/23 08/20/23 History valacyclovir 500 mg tablet 500 mg PO DAILY HSV 08/20/23 08/19/23 History vitamin B complex (Complex B-100 1 tab PO DAILY supplement 08/20/23 08/20/23 History tablet,extended release) sumatriptan succinate 100 mg tablet 100 mg PO .COMPLEX 09/02/23 Unknown History alprazolam 0.5 mg tablet (Xanax) 0.5 mg PO QDAY 03/08/24 Unknown History sertraline 50 mg tablet mg PO DAILY 03/08/24 Unknown History Allergy/AdvReac Type Severity Reaction Status Date / Time gabapentin (From Neurontin) Allergy Swelling Verified 06/02/24 14:40 topiramate (From Topamax) AdvReac Mild TINGLING Verified 06/02/24 14:40 prednisone AdvReac Other Verified 06/02/24 14:40 Family History Mother Breast cancer Father Arthritis Surgical History (Updated 06/02/24 @ 15:41 by Anny Coburn) Status post panniculectomy H/O section History of tonsillectomy History of ankle surgery History of foot surgery History of Mark-en-Y gastric bypass Hx of cholecystectomy History of bilateral tubal ligation Social History household members: significant other Smoking Status: Current every day smoker tobacco type: e-cigarettes substance use type: does not use ROS ROS ED ROS Narrative Positive fever of 101 ?F today. Feeling shaky. Positive purulent drainage from left side of wound with previous dehiscence. No nausea or vomiting. No exacerbating or alleviating factors. EXAM Physical Exam Narrative Exam Narrative: Afebrile. Vital signs noted. Nontoxic-appearing. Cardiovascular examination reveals a regular rate and rhythm. Lungs are clear to auscultation bilaterally. Abdomen is soft, nontender, with normoactive bowel sounds. The incision appears clean, dry, and intact without surrounding erythema or fluctuance. There is an area of wound dehiscence on the left side of the surgical wound with Silvadene cream contained within it and minimal purulent drainage. Const Vital Signs: 06/02/24 14:39 06/02/24 15:40 Temperature 98.7 F 98.5 F Temperature Source Oral Oral Pulse Rate 71 88 Respiratory Rate 16 15 Blood Pressure 111/68 105/69 Blood Pressure Mean 82 81 Pulse Ox 97 97 Oxygen Delivery Method Room Air Room Air MDM MDM MDM Narrative Medical decision making narrative: Differential diagnosis includes but not limited to localized wound infection versus inflammatory changes of wound versus sepsis. I have very low suspicion for sepsis because she is not tachycardic nor is she febrile and she has normal blood pressure. I will obtain a CBC, BMP, and lactic acid. I do not feel imaging is indicated and in discussion with the patient, it is not felt that she requires CT of the abdomen pelvis to look for a deeper wound. In discussion with the patient, she stated that her fever was as high as 101 ?F but she did not take an antipyretic. She is afebrile here and has remained afebrile. I reviewed her laboratory work and she has normal white count of 4.6 with hemoglobin 11.7, when compared to prior labs she has been intermittently anemic. Platelet count normal at 224. Electrolyte panel is significant for a low creatinine of 0.65 but normal sodium and potassium and normal chloride. Glucose 85. As long as her lactic acid is normal, her blood cultures are currently pending, I feel that she can be discharged to follow-up with her plastic surgeon tomorrow and continue the antibiotics that they wrote for her. Return instructions were reviewed. Her lactic acid did return and it is normal. Disposition is discharged home in stable condition. History & Record Review Discussion w/independent historian: Patient Additional record(s) reviewed:: Prior labs Lab Data Attestation: I reviewed the patient's lab results. Labs: Laboratory Results - last 24 hr 06/02/24 15:19 WBC 4.6 RBC 3.96 L Hgb 11.7 L Hct 35.2 L MCV 88.9 MCH 29.5 MCHC 33.2 RDW Std Deviation 41.1 RDW Coeff of Gee 12.5 Plt Count 224 MPV 9.9 Sodium 137 Potassium 3.9 Chloride 105 Carbon Dioxide 23.8 Anion Gap 9 BUN 12 Creatinine 0.65 L Estim Creat Clear Calc 125.10 Est GFR (MDRD) Non-Af 111 BUN/Creatinine Ratio 17.7 Glucose 85 Lactic Acid < 1.0 Calcium 8.7 Total Bilirubin 0.23 AST 28 ALT 28 Alkaline Phosphatase 81 Total Protein 6.4 Albumin 3.9 Globulin 2.4 Albumin/Globulin Ratio 1.6 Discharge Plan Triage Chief Complaint: Wound ED Provider: Carlos Dockery Dx/Rx/DC Orders Clinical Impression: Superficial postoperative wound infection, Shakiness Instructions: ED Wound Infection after surgery Prescriptions: No Action sertraline 50 mg tablet PO DAILY alprazolam [Xanax] 0.5 mg tablet 0.5 mg PO QDAY albuterol sulfate 2.5 MG/3 ML solution for nebulization 2.5 mg inhalation Q4HWA.RT PRN (Reason: Sob &/Or Wheezing) Patient Comments: only when pt has bronchitis pregabalin 75 MG capsule 75 mg PO DAILY sumatriptan succinate 100 mg tablet 100 mg PO .COMPLEX Rx Instructions: 100 mg orally TAKE 1 TABLET BY MOUTH NEEDED AT ONSET OF HEADACHE. MAY REPEAT DOSE AFTER 2 HOURS; valacyclovir 500 mg tablet 500 mg PO DAILY multivitamin with iron 1 tab PO DAILY Complex B-100 Tablet Extended Release 1 tab PO DAILY cholecalciferol (vitamin D3) [D3 DOTS] 50 mcg (2,000 unit) tablet 50 mcg PO DAILY Primary Care Provider: Toi Mendez Referrals: Toi Mendez MD [Primary Care Provider] - Activity Restrictions/Additional Instructions: Follow-up with your plastic surgeon tomorrow as scheduled. Continue the Bactrim that was written for you by their office. Return to the emergency department with sustained high fever, new or worsening symptoms. Print Language: [place] Citizen Disposition Disposition: Home, Self Care
[2024-06-02 15:35] LABS: Hematocrit 35.2 % (37-47); Hemoglobin 11.7 g/dL (12.0-15.0); Mean Corp Hgb Conc 33.2 g/dL (32-36); Mean Corpuscular Hgb 29.5 pg (27.0-32.0); Mean Corpuscular Volume 88.9 fL (81-99); Mean Platelet Vol. 9.9 fl (6.2-12.0); Platelet Count 224 K/mm3 (150-450); RBC Distribution Width CV 12.5 % (11.6-14.6); RBC Distribution Width SD 41.1 fl (35.1-43.9); Red Blood Count 3.96 M/mm3 (4.2-5.4); White Blood Count 4.6 K/mm3 (4.4-11.0)
[2024-06-02 15:40] VITALS: BP 105/69; PULSE 88; RESP 15; TEMP 36.9; O2SAT 97
[2024-06-02 16:03] LABS: ALB/GLOB Ratio 1.6 RATIO (0.9-2.4); AST(SGOT) 28 U/L (<=31); Alanine Aminotransfer ALT/SGPT 28 U/L (<=34); Albumin, Serum 3.9 g/dL (3.5-5.0); Alkaline Phosphatase 81 U/L (35-104); Anion Gap 9 (5-15); BUN 12 mg/dL (4-19); BUN/Creat Ratio 17.7 RATIO (10-20); Calcium,Total 8.7 mg/dL (7.6-11.0); Carbon Dioxide 23.8 mmol/L (21.0-32.0); Chloride 105 mmol/L (98-108); Creatinine, Serum 0.65 mg/dL (0.70-1.20); EST Glomerular Filtration Rate 111 (>60); Globulin 2.4 g/dL (2.2-4.2); Glucose 85 mg/dL (70-99); Potassium 3.9 mmol/L (3.3-5.1); Protein, Total 6.4 g/dL (5.9-8.4); Sodium Level 137 mmol/L (133-145); Total Bilirubin 0.23 mg/dL (0.00-1.30)
[2024-06-02 16:25] LABS: Lactic Acid < 1.0 mmol/L (0.0-2.0)
== END 2024-06-02 16:31 | disposition home or self-care (01) ==
PROVIDERS: Emergency Provider Emergency Medicine; PCP Family Medicine; Visit Provider Emergency Medicine
DX: T81.49XA Infection following a procedure, other surgical site, initial encounter (principal); F17.210 Nicotine dependence, cigarettes, uncomplicated; K21.9 Gastro-esophageal reflux disease without esophagitis; Z98.84 Bariatric surgery status; Z98.51 Tubal ligation status; Z90.49 Acquired absence of other specified parts of digestive tract; Y83.8 Other surgical procedures as the cause of abnormal reaction of the patient, or of later complication, without mention of misadventure at the time of the procedure
CPT/HCPCS: 80053; 83605; 85027; 87040; 99283; A4216

== ENCOUNTER 2024-08-16 08:46 | Emergency (ER) | payer MEDICAID, SELFPAY ==
[2024-08-16 08:47] VITALS: BP 102/70; PULSE 96; RESP 16; TEMP 36.7; O2SAT 97
[2024-08-16 09:00] VITALS: BMI 28.5
--- NOTE | 2024-08-16 09:17 | EX.ED.DYSGE1 ---
HPI History of Present Illness Chief Complaint: General Illness Narrative Narrative: 43-year-old female presents with fever, headaches, and bodyaches that began yesterday. She states she woke up at 10:00 yesterday feeling ill. Throughout the night, she experienced nausea, had fever, took Tylenol, then ended up taking a leftover Vicodin she had. She states she has mildly sore throat, but her worst symptoms are the fever, and bodyaches. She denies any sick contacts. No cough or difficulty breathing. She states she had a uterine biopsy a week or so ago, but is not having any vaginal discharge or pain. No dysuria or hematuria. [facility] Medical History Migraine GERD (gastroesophageal reflux disease) Arthritis GERD (gastroesophageal reflux disease) Osteoarthritis Home Medications ?Medication ?Instructions ?Recorded ?Last Taken ?Type albuterol sulfate 2.5 mg/3 mL 2.5 mg inhalation Q4HWA.RT PRN Sob 12/04/18 Unknown History (0.083 %) solution for nebulization &/Or Wheezing pregabalin 75 mg capsule 75 mg PO DAILY nerves/pain 12/15/19 08/20/23 History cholecalciferol (vitamin D3) 50 50 mcg PO DAILY supplement 08/20/23 08/20/23 History mcg (2,000 unit) tablet (D3 DOTS) multivitamin with iron 1 tab PO DAILY supplement 08/20/23 08/20/23 History vitamin B complex (Complex B-100 1 tab PO DAILY supplement 08/20/23 08/20/23 History tablet,extended release) sumatriptan succinate 100 mg tablet 100 mg PO .COMPLEX 09/02/23 Unknown History alprazolam 0.5 mg tablet (Xanax) 0.5 mg PO QDAY PRN anxiety 03/08/24 Unknown History sertraline 50 mg tablet 50 mg PO DAILY 03/08/24 Unknown History Allergy/AdvReac Type Severity Reaction Status Date / Time gabapentin (From Neurontin) Allergy Swelling Verified 08/16/24 09:02 topiramate (From Topamax) AdvReac Mild TINGLING Verified 08/16/24 09:02 prednisone AdvReac Other Verified 08/16/24 09:02 Family History Mother Breast cancer Father Arthritis Surgical History Status post panniculectomy H/O section History of tonsillectomy History of ankle surgery History of foot surgery History of Mark-en-Y gastric bypass Hx of cholecystectomy History of bilateral tubal ligation Social History household members: significant other Smoking Status: Current every day smoker tobacco type: e-cigarettes substance use type: does not use ROS ROS ED ROS Narrative Review of systems positive for fever, headache, sore throat worse with swallowing, body aches, multiple myalgias and arthralgias. No vomiting, no diarrhea, no abdominal pain, no vaginal discharge. EXAM Physical Exam Narrative Exam Narrative: Afebrile. Vital signs noted. Nontoxic-appearing. Ambulatory in emergency department to room. Cardiovascular examination feels a regular rate and rhythm. Lungs are clear to auscultation bilaterally. Abdomen is soft, nontender, without guarding or rebound. Positive bowel sounds. Neurological examination is nonfocal, nonlateralizing. Neck soft and supple without meningismus, full range of motion without pain. Minimal pharyngeal erythema, airway patent, no drooling or trismus. Const Vital Signs: 08/16/24 08:47 08/16/24 09:00 08/16/24 10:46 Temperature 98.0 F Temperature Source Temporal Pulse Rate 96 81 Respiratory Rate 16 18 Respiratory Effort Normal Non-Labored Respiratory Pattern Normal Blood Pressure 102/70 128/70 H Blood Pressure Mean 80 89 Pulse Ox 97 98 Oxygen Delivery Method Room Air MDM MDM MDM Narrative Medical decision making narrative: Differential diagnosis includes but not limited to pneumonia versus UTI versus viral syndrome. She is currently afebrile here. Additionally, I doubt uterine biopsy causing abscess as she is not symptomatic, having pain or discharge. She will be bolused IV fluids, and serum as well as CBC and BMP obtained. She will be treated with Toradol after showed her test be negative. I reviewed her laboratory work and she has normal white count of 6.9 with hemoglobin 11.9, hematocrit 35.8, platelet count 207. Electrolyte panel shows BUN of 8 and creatinine 0.55, no dehydration, glucose 97 with normal sodium and potassium. Urinalysis negative for infection, negative for ketones, 0-5 WBCs. I do not feel antibiotics are indicated. Serum test is negative. She was given Toradol for pain/analgesia. She is not febrile here currently. Chest x-ray interpreted by myself independently shows no pneumonia or pneumothorax. I reviewed the radiology report which confirms my independent interpretation. I reviewed her respiratory swab and she is negative for COVID, influenza AMB, and RSV. Upon repeat examination, she states that she was very sweaty at 1 time and feels as if maybe her fever is breaking, although she was not febrile on arrival. At this point in time, I do not feel that she requires admission or observation. She may have more for viral syndrome. She will continue rrxi-[id number] antipyretics and analgesics and follow-up with her primary care provider. Return instructions to the emergency department were reviewed. Disposition is discharged home in stable condition. History & Record Review Discussion w/independent historian: Patient Additional record(s) reviewed:: Prior ED visit (Seen by myself previously for shakiness) Lab Data Attestation: I reviewed the patient's lab results. Labs: Laboratory Results - last 24 hr 08/16/24 08/16/24 09:30 10:30 WBC 6.9 RBC 4.17 L Hgb 11.9 L Hct 35.8 L MCV 85.9 MCH 28.5 MCHC 33.2 RDW Std Deviation 41.1 RDW Coeff of Gee 13.1 Plt Count 207 MPV 9.8 Immature Gran % (Auto) 0.300 Neut % (Auto) 89.2 H Lymph % (Auto) 4.7 L Sullivan % (Auto) 5.4 Eos % (Auto) 0.1 Baso % (Auto) 0.3 Absolute Neuts (auto) 6.1 Absolute Lymphs (auto) 0.32 L Nucleated RBC % 0 Sodium 136 Potassium 4.0 Chloride 102 Carbon Dioxide 25.8 Anion Gap 8 BUN 8 Creatinine 0.55 L Estim Creat Clear Calc 149.23 Est GFR (MDRD) Non-Af 116 BUN/Creatinine Ratio 14.1 Glucose 97 Calcium 8.4 Serum , Qual NEGATIVE Urine Color Yellow Urine Clarity Clear Urine pH 6.0 Ur Specific [place] 1.010 Urine Protein 15 H Urine Glucose (UA) Normal Urine Ketones Negative Urine Occult Blood Negative Urine Nitrite Negative Urine Bilirubin Negative Urine Urobilinogen Normal Ur Leukocyte Esterase 25 H Urine RBC 0 SEEN Urine WBC 0-5 SEEN Ur Squamous Epith Cells 0-5 SEEN Urine Bacteria 0 SEEN Urine Mucus 0 SEEN Radiography Diagnostic Testing: Clinical Impression(s) from Imaging Studies Chest X-Ray 08/16/24 10:00 IMPRESSION: No acute cardiopulmonary process. Reading Location: [facility] Discharge Plan Triage Chief Complaint: General Illness ED Provider: Carlos Dockery Dx/Rx/DC Orders Clinical Impression: Fever, Body aches Instructions: ED Pain, Acute, Uncertain Cause, ED Viral Syndrome (Adult) Prescriptions: No Action sertraline 50 mg tablet 50 mg PO DAILY alprazolam [Xanax] 0.5 mg tablet 0.5 mg PO QDAY PRN (Reason: anxiety) albuterol sulfate 2.5 MG/3 ML solution for nebulization 2.5 mg inhalation Q4HWA.RT PRN (Reason: Sob &/Or Wheezing) Patient Comments: only when pt has bronchitis pregabalin 75 MG capsule 75 mg PO DAILY sumatriptan succinate 100 mg tablet 100 mg PO .COMPLEX Rx Instructions: 100 mg orally TAKE 1 TABLET BY MOUTH NEEDED AT ONSET OF HEADACHE. MAY REPEAT DOSE AFTER 2 HOURS; multivitamin with iron 1 tab PO DAILY Complex B-100 Tablet Extended Release 1 tab PO DAILY cholecalciferol (vitamin D3) [D3 DOTS] 50 mcg (2,000 unit) tablet 50 mcg PO DAILY Primary Care Provider: Toi Mendez Referrals: Toi Mendez MD [Primary Care Provider] - 3-5 Days if not improving Activity Restrictions/Additional Instructions: Continue ymcl-rre-stcpaby Tylenol as needed for fever and pain. Follow-up with your primary care provider in the next 3 to 5 days. Return to the emergency department with new or worsening symptoms. Print Language: Yakut Disposition Disposition: Home, Self Care
[2024-08-16 09:42] LABS: Hematocrit 35.8 % (37-47); Hemoglobin 11.9 g/dL (12.0-15.0); Immature Granulocytes Count 0.020 X10^3/uL (0.0-0.0); Mean Corp Hgb Conc 33.2 g/dL (32-36); Mean Corpuscular Volume 85.9 fL (81-99); Mean Platelet Vol. 9.8 fl (6.2-12.0); NRBC Flagged by Analyzer 0 % (0-5); POSITIVE DIFFERENTIAL YES; Platelet Count 207 K/mm3 (150-450); RBC Distribution Width CV 13.1 % (11.6-14.6); RBC Distribution Width SD 41.1 fl (35.1-43.9); Red Blood Count 4.17 M/mm3 (4.2-5.4); White Blood Count 6.9 K/mm3 (4.4-11.0)
[2024-08-16] MEDS: 0.9% Normal Saline (1000mL) 1,000 ML 1000 ML IV (09:56)
--- NOTE | 2024-08-16 10:00 | RAD_ITS ---
EXAM: XR Chest, 1 View CLINICAL INDICATION: FEVER TECHNIQUE: Frontal view of the chest. COMPARISON: No relevant prior studies available. FINDINGS: LUNGS AND PLEURAL SPACES: Unremarkable. No consolidation. No pneumothorax. HEART: Unremarkable. No cardiomegaly. MEDIASTINUM: Unremarkable. Normal mediastinal contour. BONES/JOINTS: Unremarkable. No acute fracture. RAD/Chest 1 View (Portable) IMPRESSION: No acute cardiopulmonary process. Reading Location[facility]
[2024-08-16 10:01] LABS: Internal QC Validated? YES +Cl - CLEAR BKGD; Pregnancy, Serum, hCG Quali. NEGATIVE Negative; Record Kit Lot#, Serum Preg. 0000947241
[2024-08-16 10:23] LABS: Anion Gap 8 (5-15); BUN 8 mg/dL (4-19); BUN/Creat Ratio 14.1 RATIO (10-20); Calcium,Total 8.4 mg/dL (7.6-11.0); Carbon Dioxide 25.8 mmol/L (21.0-32.0); Chloride 102 mmol/L (98-108); Estimated Creatinine Clearance 149.23 ml/min (50-250); Glucose 97 mg/dL (70-99); Potassium 4.0 mmol/L (3.3-5.1)
[2024-08-16] MEDS: Ketorolac 30 MG/ML Syringe IV (10:25)
[2024-08-16 10:45] LABS: Mucous, Urine 0 SEEN /hpf (<or=2+); Red Blood Cells-Urine 0 SEEN /hpf (0-5)
[2024-08-16 10:46] VITALS: BP 128/70; PULSE 81; RESP 18; O2SAT 98
[2024-08-16 10:46] LABS: Color, Urine Yellow (Yellow); Glucose, Dipstick Normal (Normal); Ketone-Dipstick Negative (Negative); Leukocyte Esterase-Dipstick 25 /ul (Negative); Nitrite-Dipstick Negative (Negative); Occult Blood-Urine Negative /ul (Negative); Protein-Dipstick 15 mg/dl (Negative); Specific Gravity, Urine 1.010 (1.002-1.030); Urine Bilirubin Dipstick Negative (Negative)
[2024-08-16 10:53] LABS: Squamous Epithelial Cells - UA 0-5 SEEN /hpf (5-10)
[2024-08-16 11:42] VITALS: BP 128/70; PULSE 81; RESP 18; TEMP 37; O2SAT 98
== END 2024-08-16 11:42 | disposition home or self-care (01) ==
PROVIDERS: Emergency Provider Emergency Medicine; PCP Family Medicine; Visit Provider Emergency Medicine
DX: R50.9 Fever, unspecified (principal); K21.9 Gastro-esophageal reflux disease without esophagitis; Z90.49 Acquired absence of other specified parts of digestive tract; Z98.51 Tubal ligation status; Z98.84 Bariatric surgery status; F17.290 Nicotine dependence, other tobacco product, uncomplicated
CPT/HCPCS: 71045; 80048; 81001; 84703; 85025; 87631; 96361; 96374; 99283

== ENCOUNTER 2024-09-01 05:29 | Day surgery (SDC) | payer MEDICAID, SELFPAY ==
--- NOTE | 2024-08-24 12:38 | HP.PCM_ITS ---
History and Physical Date of Admission: 09/01/24 HPI: The patient is a 43 year old female presenting for pre-operative visit. She is scheduled for TLH, bilateral salpingectomy and cystoscopy, for adenomyosis, AUB, dysmenorrhea, intramural uterine fibroid and arcuate uterus on 09/01/24. Procedure discussed along with risks, benefits and complications. Other alternatives discussed for management. Consent form signed? Yes. ? ? PAST MEDICAL HISTORY PAST MEDICAL HISTORYDiagnosisDate?Autoimmune disease (HCC)??Degeneration of intervertebral disc, site unspecified??Depression??Migraines??Mild intermittent asthma (HCC)??Obesity??Osteoarthritis of both knees??Plantar fasciitis??Psoriasis? ? ? PAST SURGICAL HISTORY PAST SURGICAL HISTORYProcedureLateralityDate?ADENOIDECTOMY PRIMARY <AGE 11??? Adenoidectomy? DELIVERY ONLY???, low cervical?GASTRIC BYPASS HX???Pt reported 2021?LAPAROSCOPY SURG CHOLECYSTECTOMY?2013?PAST SURGICAL HISTORY OF???Bilateral arthoscopy to ankles, scar tissue removal and tendon lengthening?REMOVAL OF EXCESSIVE SKIN???Stomach?TONSILLECTOMY PRIMARY/SECONDARY <AGE 12???Tonsillectomy ? ? ? CURRENT MEDICATIONS Current Outpatient MedicationsMedicationSigDispenseRefill?pregabalin (LYRICA) 75 mg capsuleTake 1 capsule by mouth once daily for 180 days.30 capsule 5?valACYclovir (VALTREX) 500 mg tabletTake 4 tablets twice daily X 1 day. Then start one tablet by mouth daily thereafter.38 tablet4?Nebulizer Accessories kit1 Units once daily as needed.1 Each0?sertraline (ZOLOFT) 50 mg tabletTake 1 tablet by mouth once daily.30 tablet5?calcium carbonate 400 mg (1,000 mg) chewTake 1,000 mg by mouth once daily.???ferrous sulfate (IRON) 325 mg (65 mg iron) tabletTake 325 mg by mouth once daily.???SUMAtriptan (IMITREX) 100 mg tabletTake 1 tablet (100 mg) by mouth as needed. START AT ONSET OF HEADACHE. MAY REPEAT DOSE AFTER 2 HOURS.9 tablet5?cyanocobalamin (VITAMIN B-12) 100 mcg tabTake 100 mcg by mouth once daily.???ergocalciferol, vitamin D2, (VITAMIN D2 ORAL)Take by mouth.???MULTIVITAMIN NO.43-IRON-FA ORALTake by mouth.???No current facility- administered medications for this visit. ? ? ALLERGIES: Gabapentin; Prednisone; Gardasil 9 (Pf) [Human Papillomav Vac,9- Elda(Pf)]; Lexapro [Escitalopram]; Tree [place] Shrub Pollen; and Topamax [To piramate] ? PERSONAL HISTORY: SOCIAL HISTORY Social History?Tobacco Use?Smoking status:Former??Current packs/day:0.00??Average packs/day:0.3 packs/day for 24.0 years (6.0 ttl pk- yrs)??Types:Cigarettes??Start date:03/19/1990??Quit date:2014??Years since quittin.5?Smokeless tobacco:Never?Tobacco comments:??Quit in 2014, does vape dailyVaping Use?Vaping status:current everyday user?Start date:08/10/2023?Substances:Nicotine?Devices:DisposableSubstance Use Topics?Alcohol use:Not Currently??Comment: rarely?Drug use:No ? FAMILY HISTORY: FAMILY HISTORY FAMILY HISTORY ProblemRelationAge of Onset?Breast CancerMother??DiabetesMaternal Grandmother??DiabetesMaternal Uncle? ? ? REVIEW OF SYMPTOMS: GENERAL: denies fevers or chills ENDOCRINOLOGY: has not been on steroids Cardiology : denies palpitations or chest pain Respiratory: denies SOB or cough Hematology: denies history of prolonged bleeding or easy bruising or VTE Allergy: Denies history of personal or family history of allergy to anesthesia ? PHYSICAL EXAMINATION: ? VITALS: Blood pressure 102/58, pulse 70, height 172.7 cm (5' 8), weight 83.5 kg (184 lb), last menstrual period 08/06/2024, SpO2 97%. ? GENERAL: The patient is well nourished, well hydrated in no acute distress. , The patient is oriented to time, place, and person. NECK: Supple. No lynphadenopathy, normal thyroid, no thyromegaly. LUNGS: Clear to auscultation bilaterally. no wheezes, rhonchi or rales HEART: Regular rate and rhythm, Normal heart sounds, and No murmurs or gallops ? ? ? Pelvic US 07/21/24: The contour of the uterus and the endometrial cavity were evaluated with 3-D imaging. Findings are suggestive of arcuate uterus. The uterus is anteverted and measures 112 mm x 44 mm x 73 mm. A anteverted uterus seen that measures 112 mm x 44 mm x 73 mm. The myometrium is heterogeneous, asymmetrically thickened, and with cystic lakes and is suggestive of adenomyosis. The endometrial thickness is 10.5 mm. There is a left lateral anterior wall intramural fibroid that measures 18 mm x 20 mm x 23 mm. The right ovary measures 24 mm x 24 mm x 12 mm. The left ovary measures 49 mm x 29 mm x 24 mm. There is a left simple paraovarian/paratubal cyst that measures 7.0 mm x 9.7 mm x 6.5 mm. There is no free fluid visualized. Technique: Three dimensional imaging was created on a dedicated stand-alone 3D workstation with images created and archived, and supervised and reviewed by the interpreting physician utilizing images from a US Scan performed on 07/21/24. Duplex scan was performed using B-Mode/bianchi scale imaging and Doppler spectral analysis and color flow. Recommendations Arcuate uterus. Fibroid uterus. Clinical correlation is recommended. ? ? ? IMPRESSION: arcuate uterus, dysmenorrhea, AUB, adenomyosis, intramural uterine fibroid ? PLAN: The risks/benefits/alternatives and personal involved for the planned TLH, bilateral salpingectomy and cystoscopy were reviewed with the patient. Her questions were answered to her satisfaction and she desires to proceed. Consent was signed. I reviewed with her postop instructions and expectations. ? ? I have reviewed and updated past medical and surgical history, medications and allergies Assessment & Plan Assessment/Plan (1) Dysmenorrhea: (2) Abnormal uterine bleeding (AUB): (3) Adenomyosis: (4) Intramural uterine fibroid: (5) Arcuate uterus:
--- NOTE | 2024-08-25 11:54 | PAT.ANE_ITS ---
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 When Was Last Pacemaker Check QUESTION #4 FULL TEXT: You/Your Family Experience fever (hyperthermia) with Anesthesia Last Oral Intake Last Oral intake: Last Oral Intake NPO since Meds taken in AM with sips of water? Meds patient instructed to take am of surgery PONV PONV - automatic spreader operator: PONV - automatic spreader operator Female Yes 08/25/24 11:24 HX of Motion Sickness No 08/25/24 11:24 HX of N/V After Surgery No 08/25/24 11:24 Non-Smoker No 08/25/24 11:24 Duration of Surgery greater Yes 08/25/24 11:24 than 60 minutes Number of Risk Factors 2 08/25/24 11:24 PONV Score Moderate Risk 08/25/24 11:24 Height & Weight Height & Weight: Anesthesia: Height & Weight Height 5 ft 8 in 06/02/24 14:39 Respiratory Assessment Respiratory Assessment - automatic spreader operator: Respiratory Tract Infection Hx - automatic spreader operator Hx Respiratory Tract Infection No 08/25/24 11:24 STOP Sleep Apnea STOP Sleep Apnea - automatic spreader operator: STOP Sleep Apnea - automatic spreader operator Hx Hypertension No 08/25/24 11:24 Hx Sleep Apnea No 08/25/24 11:24 CPAP BIPAP Do you snore loudly (louder No 08/25/24 11:24 than talking or can be heard Do you often feel tired/ No 08/25/24 11:24 fatigued/ sleepy during daytime? Has anyone observed you stop No 08/25/24 11:24 breathing during sleep? STOP Results Negative 08/25/24 11:24 QUESTION #5 FULL TEXT : Do you snore loudly (louder than talking or can be heard through closed doors)? Tobacco Use History Tobacco Use History - automatic spreader operator: Tobacco Use History - automatic spreader operator Tobacco Use Smoking Status Current every day smoker 08/25/24 11:24 Hx Tobacco Use No 08/25/24 11:24 Years Smoking Packs Smoked per Day Smoking Cessation Date was within the last 15 years Hx Smoking Cessation Date Hx Smoking Cessation No 08/25/24 11:24 Counseling Hematologic Medial History Hematologic Hx - automatic spreader operator: Hematologic Medical Hx - documentation coordinator Hx of Blood Transfusion No 08/25/24 11:24 Hx of Transfusion in last 3 No 08/25/24 11:24 Months Date of Last Transfusion (if within last 3 months) Ever experience any problems No 08/25/24 11:24 with transfusion(s)? Specify any problems Hx of Preganancy in last 3 N/A 08/25/24 11:24 Months Nurse Filling Out Transfusion NBUCHER 08/25/24 11:24 & Questions: Date: 08/25/24 08/25/24 11:24 Time: 11:26 08/25/24 11:24 Patient unable to answer at this time (ie. confused, unrespo /Reproduction History /Reproductive History - automatic spreader operator: /Reproductive Hx- automatic spreader operator Hx Now No 08/25/24 11:24 Gestational Age (in weeks): EDC: Hx Hx Para Hx Section SAB No 08/25/24 11:24 PFSH Medical History (Updated 08/25/24 @ 11:32 by Cris Fernandez) Wears contact lenses Anxiety History of steroid therapy Low iron Restless legs Migraine headache Electronic cigarette use History of echocardiogram History of stress test Tachycardia Bradycardia Migraine GERD (gastroesophageal reflux disease) Arthritis GERD (gastroesophageal reflux disease) Osteoarthritis Home Medications ?Medication ?Instructions ?Recorded ?Last Taken ?Type albuterol sulfate 2.5 mg/3 mL 2.5 mg inhalation Q4HWA. RT PRN Sob 12/04/18 Unknown History (0.083 %) solution for nebulization &/Or Wheezing pregabalin 75 mg capsule 75 mg PO DAILY nerves/pain 1 02/13/19 08/20/23 History cholecalciferol (vitamin D3) 50 50 mcg PO DAILY supple ment 08/20/23 08/20/23 History mcg (2,000 unit) tablet (D3 DOTS) multivitamin with iron 1 tab PO DAILY supplement 08/20/23 History vitamin B complex (Complex B-100 1 tab PO DAILY supple ment 08/20/23 08/20/23 History tablet,extended release) sumatriptan succinate 100 mg tablet 100 mg PO .COMPLEX 09/02/23 Unknown History alprazolam 0.5 mg tablet (Xanax) 0.5 mg PO QDAY PRN an xiety 03/08/24 Unknown History sertraline 50 mg tablet 50 mg PO DAILY 03/08/24 Unkn own History ferrous sulfate 325 mg (65 mg 325 mg PO DAILY 08/25/24 Unknown History iron) tablet (Feosol) Allergy/AdvReac Type Severity Reaction Status Date / Time gabapentin (From Neurontin) Allergy Swelling Verified 08/25/24 11:21 human papillomavirus AdvReac Severe Swelling Verified 08/25/24 11:21 vaccine, quadr (From Gardasil (PF)) topiramate (From Topamax) AdvReac Mild TINGLING Verified 08/25/24 11:21 prednisone AdvReac Other Verified 08/25/24 11:21 Family History Mother Breast cancer Father Arthritis Surgical History (Updated 08/25/24 @ 11:32 by Cris Fernandez) History of gastric bypass Status post panniculectomy H/O section History of tonsillectomy History of ankle surgery History of foot surgery History of Mark-en-Y gastric bypass Hx of cholecystectomy History of bilateral tubal ligation Social History household members: significant other Smoking Status: Current every day smoker tobacco type: e-cigarettes substance use type: does not use Audit: Pertinent Findings Pertinent Findings Stress test pertinent findings: Stress test 08/21/2023. METS 10. Resting heart rate 52 bpm wilfrid to a maximal rate of 150 bpm. Exercise test was stopped due to target heart rate achieved Echo (EF%) pertinent findings: Echo 08/21/2023. Normal LV size. EF 60%. No evidence of diastolic dysfunction. Recommendation Anesthesia Recommendation Anesthesia recommendation: OPTIMIZED for anesthesia
[2024-08-30 13:40] LABS: Magnesium 2.3 mg/dL (1.5-2.2)
[2024-09-01] VITALS (15 sets, daily range): BP systolic 101–117; BP diastolic 53–72; PULSE 52–72; RESP 16; TEMP 36.2–36.8; O2SAT 99–100; BMI 30.1
--- OUTSIDE RECORDS SUMMARY | 2024-09-01 05:33 | XMS RPT_ITS | CCD ---
Author Organization [facility] Care Team Providers Care Ehs Specialist Name Role Phone Roger CARBON ACCOUNTANT-SAUSAGE GRINDER Sri Unavailable Maira Escamilla MD Primary Care Provider Maira Escamilla MD Primary Care Provider Maira Escamilla MD Primary Care Provider Maira Escamilla MD Primary Care Provider Maira Escamilla MD Primary Care Provider [phone] MAIRA ESCAMILLA MD Primary Care Physician MARCELLA OSHEA, DR SHARON Velazco Attending MAIRA Jessica MD Primary Care Unavailable Haagen CARBON ACCOUNTANT.SAUSAGE GRINDER Viviana Unavailable Suppan CARBON ACCOUNTANT.SAUSAGE GRINDER Anna A Unavailable Suppan CARBON ACCOUNTANT.FATEMEH, Anna A Unavailable Suppan CARBON ACCOUNTANT.FATEMEH, Anna A Unavailable [phone] Dr. Maira Escamilla MD Primary Care Provider Dr. Maira Escamilla MD Referring Provider Magdalena Roman Attending Provider Calros Dockery MD Emergency Provider BONNY HENRY Attending Unavailable MAIRA ESCAMILLA Primary Care Unavailable JAE STERLING Attending Unavailable MAIRA ESCAMILLA Primary Care Unavailable Dr. Maira Escamilla MD Primary Care Provider [phone] Carlos Dockery MD Attending Provider BEULAH CAMPA Attending Unavailable MAIRA ESCAMILLA Primary Care Unavailable FRANCINE, MAIRA J Primary Care Unavailable FRANCINE, MAIRA J Attending Unavailable FRANCINE, MAIRA J Primary Care Unavailable FRANCINE, MAIRA J Primary Care Unavailable BONNY HENRY Attending Unavailable BELUAH CAMPA Attending Unavailable FRANCINE, MAIRA J Primary Care Unavailable LYNNMAKEDA LEYVA Attending Unavailable BEULAH CAMPA Referring Unavailable FRANCINE, MAIRA J Primary Care Unavailable FRANCINE, MAIRA J Primary Care Unavailable JAE STERLING Attending Unavailable JAE STERLING Admitting Unavailable FRANCINE, MAIRA J Primary Care Unavailable ELAINEBONNY BERRY Attending Unavailable FRANCINE, MAIRA J Attending Unavailable FRANCINE, MAIRA J Primary Care Unavailable FRANCINE, MAIRA J Primary Care Unavailable BONNY HENRY Attending Unavailable FRANCINE, MARIA J Primary Care Unavailable JAE STERLING Attending Unavailable FRANCINE, MAIRA J Primary Care Unavailable JAE STERLING Referring Unavailable FRANCINE, MAIRA J Primary Care Unavailable BONNY HENRY Attending Unavailable FRANCINE, MAIRA J Primary Care Unavailable FRANCINE, MAIRA J Primary Care Unavailable BONNY HENRY Attending Unavailable FRANCINE, MAIRA J Primary Care Unavailable ALISON JULES Attending Unavailable FRANCINE, MAIRA J Referring Unavailable FRANCINE, MAIRA J Primary Care Unavailable PREETHI SKINNER Attending Unavailable FRANCINE, MAIRA J Referring Unavailable FRANCINE, MAIRA J Primary Care Unavailable ALISON JULES Referring Unavailable BONNY HENRY Attending Unavailable FRANCINE, MAIRA J Primary Care Unavailable FRANCINE, MAIRA J Primary Care Unavailable LYNN, MAKEDA Referring Unavailable FRANCINE, MAIRA J Primary Care Unavailable BONNY HENRY Attending Unavailable LYNN, MAKEDA Referring Unavailable LYNNMAKEDA Attending Unavailable FRANCINE, MAIRA J Primary Care Unavailable LYNNMAKEDA Attending Unavailable FRANCINE, MAIRA J Primary Care Unavailable LYNN, MAKEDA Referring Unavailable MARY MOURA Referring Unavailable FRANCINE, MAIRA J Primary Care Unavailable FRANCINE, MAIRA J Primary Care Unavailable ANNA NINO Attending Unavailable FRANCINE, MAIRA J Primary Care Unavailable LYNN, MAKEDA Referring Unavailable FRANCINE, MAIRA J Primary Care Unavailable Jeff Diego Attending Unavailable [place], Maira Primary Care Unavailable Francine, Maira Primary Care Unavailable Carlos Dockery Attending Unavailable [place], Maira Primary Care Unavailable Jamison Hernández Attending Unavailable Jamison Hernández Referring Unavailable [place], Maira Primary Care Unavailable Anthony Lau Attending Unavailable Anthony Lau Referring Unavailable Maira Escamilla Primary Care Unavailable Maira Escamilla Referring Unavailable Magdalena Ram Attending Unavailable Maira Escamilla Primary Care Unavailable Beulah Campa Attending Unavailable Beulah Campa Referring Unavailable Francine Maira Primary Care Unavailable Carlos Dockery Attending Unavailable Allergies Allergy Classification Reported Allergen(s) Allergy Type Date of Onset Reaction(s) Facility (1 source) gabapentin Drug Allergy 02-16-19 13 [facility] Work Phone: (20 sources) predniSONE; Translations: [prednisone] Drug Allergy 04-18-19 16 Mental Status Change [facility] Work Phone: (1 source) Seasonal allergy; Translations: [SEASONAL] allergy to substance 02-16-19 13 [facility] Work Phone: (1 source) topiramate Drug Allergy 09-23-19 20 [facility] Work Phone: (20 sources) gabapentin; Translations: [gabapentin] Drug Allergy 04-14-19 15 Other: See Comments [facility] (20 sources) topiramate; Translations: [topiramate] Drug Allergy 12-13-19 17 Other: See Comments [facility] Work Phone: (20 sources) environmental [Other] Propensity to adverse reactions 06-27-19 06 Intolerance [facility] Work Phone: (20 sources) Tree and shrub pollen; Translations: [TREE AND SHRUB POLLEN] Propensity to adverse reactions to drug 07-22-19 24 Other: See Comments [facility] (20 sources) Escitalopram; Translations: [ESCITALOPRAM] Drug Allergy 02-21-19 25 Mental Status Change [facility] (12 sources) L1 protein, Human papillomavirus type 11 Vaccine / L1 protein, Human papillomavirus type 16 Vaccine / L1 protein, Human papillomavirus type 18 Vaccine / L1 protein, Human papillomavirus type 31 Vaccine / L1 protein, Human papillomavirus type 33 Vaccine / L1 protein, Human papillomavirus type 45 Vaccine / L1 protein, Human papillomavirus type 52 Vaccine / L1 protein, Human papillomavirus type 58 Vaccine / L1 protein, Human papillomavirus type 6 Vaccine; Translations: [HUMAN PAPILLOMAV VAC,9-ELDA(PF)] Drug Allergy 06-10-20 25 Rash, Itching, Other: See Comments [facility] (1 source) gabapentin Drug Allergy 08-26-19 [facility] (1 source) predniSONE Drug Allergy 08-26-19 [facility] (1 source) topiramate Drug Allergy 08-26-19 [facility] (1 source) human papillomavirus vaccine, quadr Drug allergy (disorder) 08-26-19 [facility] Medications Current Medications Medication Drug Class(es) Dates Sig (Normalized) Sig (Original) acetaminophen 500 mg oral tablet (6 sources) Start: 03-14-2024 End: 03-29-2024 take 2 tablets by mouth every six hours as needed for pain, then take 1-2 tablets by mouth every six hours as needed for pain acetaminophen (TYLENOL) 500 mg tablet Take 2 tablets by mouth every 6 hours for 5 days, THEN 1-2 tablets every 6 hours as needed for pain for up to 10 days. 90 tablet 03/14/2024 03/29/2024 Active ALPRAZolam 0.5 mg oral tablet (2 sources) Benzodiazepine Start: 03-08-2024 take 1 tablet by mouth once daily as needed for anxiety Alprazolam (Xanax) 0.5 mg tablet Active 0.5 mg PO daily as needed for anxiety March 08, 2024 1:00am amoxicillin 500 mg oral capsule (1 source) Penicillin-class Antibacterial Start: 02-22-2022 End: 03-04-2022 take 1 capsule by mouth twice daily amoxicillin (POLYMOX, AMOXIL) 500 mg capsule Take 1 capsule by mouth twice daily for 10 days. 20 capsule 0 02/22/2022 03/04/2022 Active Comment on above: Take 1 capsule by [facility] twice daily for 10 days. amoxicillin 500 mg / clavulanate 125 mg oral tablet (1 source) Penicillin-class Antibacterial Start: 06-03-2024 End: 06-13-2024 take 1 tablet by mouth three times daily amoxicillin-clavul anate potassium (AUGMENTIN) 500-125 mg per tablet Take 1 tablet by mouth three times a day for 10 days. 30 tablet 06/03/2024 06/13/2024 Active calcium carbonate 1000 mg chewable tablet (20 sources) take 1000 mg by mouth once daily calcium carbonate 400 mg (1,000 mg) chew Take 1,000 mg by mouth once daily. Active cefadroxil 500 mg oral capsule (17 sources) Cephalosporin Antibacterial Start: 05-01-2024 End: 05-08-2024 take 1 capsule by mouth twice daily cefADROxil (DURICEF) 500 mg capsule Take 1 capsule by mouth two times a day for 7 days. 14 capsule 05/01/2024 05/08/2024 Active Start: 03-24-2024 End: 04-03-2024 take 1 capsule by mouth twice daily cefADROxil (DURICEF) 500 mg capsule Take 1 capsule by mouth two times a day for 10 days. 20 capsule 03/24/2024 04/03/2024 Active Start: 06-27-2022 End: 07-22-2023 take 1 capsule by mouth twice daily cefADROxil (DURICEF) 500 mg capsule Take 1 capsule by mouth twice daily. 20 capsule 0 06/27/2022 07/22/2023 Discontinued Comment on above: Take 1 capsule by [facility] twice daily. cholecalciferol 0.05 mg oral tablet (2 sources) Vitamin D Start: 08-20-19 Cholecalciferol (Vitamin D3) (D3 Dots) 50 mcg (2,000 unit) tablet Active 50 ug PO DAILY August 20, 2023 12:00am supplement doxycycline monohydrate 100 mg oral capsule (17 sources) Tetracycline-cl ass Drug Start: 05-28-19 End: 06-07-19 take 1 capsule by mouth twice daily doxycycline monohydrate (MONODOX) 100 mg capsule Take 1 capsule by mouth two times a day for 10 days. 20 capsule 05/27/2024 06/06/2024 Active Start: 09-30-2022 End: 07-22-2023 take 1 capsule by mouth every twelve hours doxycycline hyclate (VIBRAMYCIN) 100 mg capsule Take 1 capsule by mouth every 12 hours. 0 09/30/2022 07/22/2023 Discontinued Start: 09-30-2022 End: 08-20-2023 take 1 capsule by mouth twice daily Doxycycline Hyclate 100 mg capsule Discontinued 100 mg PO TWICE A DAY 20 0 September 30, 2022 12:00am August 20, 2023 1:11pm Start: 08-06-2021 End: 08-16-2021 take 1 tablet by mouth twice daily doxycycline (VIBRA-TABS) 100 mg tablet Take 1 tablet by mouth twice daily for 10 days. 20 tablet 0 08/06/2021 08/16/2021 Active Comment on above: [facility] 10 [facility]. Take 1 capsule by [facility] every 12 hours. 0.4 ml enoxaparin sodium 100 mg/ml prefilled syringe (16 sources) Low Molecular Weight Heparin Start: 10-05-19 End: 11-04-19 inject 0.4 mL by subcutaneous injection every twelve hours enoxaparin (LOVENOX) 40 mg/0.4 mL Inject 0.4 mL subcutaneously every 12 hours. (Inject entire contents of one(1) syringe) 24 mL 0 10/04/2021 11/03/2021 Active Start: 10-02-2021 End: 10-04-2021 inject 0.4 mL by subcutaneous injection twice daily enoxaparin (LOVENOX) 40 mg/0.4 mL Inject 0.4 mL subcutaneously twice daily. (Inject entire contents of one(1) syringe) 24 mL 0 10/02/2021 10/04/2021 Discontinued Comment on above: Inject 0.4 mL subcut aneously twice daily. (Inject entire contents of one(1) syringe) Inject 0.4 mL subcut aneously every 12 hours. (Inject entire contents of one(1) syringe) ergocalciferol, vitamin D2, (VITAMIN D2 ORAL) (20 sources) ergocalciferol, vitamin D2, (VITAMIN D2 ORAL) Take by mouth. Active ergocalciferol, vitamin D2, (VITAMIN D2 ORAL) Take by mouth. 0 Active Comment on above: Take by mouth. ferrous sulfate 325 mg oral tablet (20 sources) take 1 tablet by mouth once daily ferrous sulfate (IRON) 325 mg (65 mg iron) tablet Take 325 mg by mouth once daily. Active gentamicin 0.001 mg/mg topical ointment (1 source) Start: End: gentamicin 0.1 % ointment Apply to affected area three times a day for 7 days. 30 g 1 06/03/2024 06/10/2024 Active hydrOXYzine hydrochloride 25 mg oral tablet (19 sources) Antihistamine Start: End: take 1 tablet by mouth three times daily as needed hydrOXYzine HCl (ATARAX) 25 mg tablet Indications: Anxiety with depression Take 1 tablet by mouth three times a day as needed for itching/rash. 90 tablet 2 02/22/2024 05/22/2024 Active methylPREDNISolone (5 sources) Corticosteroid Start: 023 End: 023 methylPREDNISolone (MEDROL, OLIVIER,) 4 mg Dose-Pack Indications: Viral bronchitis Follow dosing instructions, take with food. 21 tablet 0 2022 10/05/2022 Active Start: 05-22-2022 End: 05-28-2022 methylPREDNISolone (MEDROL, OLIVIER,) 4 mg Dose-Pack Indications: Sciatica, right side Follow dosing instructions, take with food. 21 tablet 0 05/22/2022 05/28/2022 Active Start: 08-06-2021 End: 08-12-2021 methylPREDNISolone (MEDROL, OLIVIER,) 4 mg Dose-Pack Follow dosing instructions, take with food. 1 Package 0 08/06/2021 08/12/2021 Active Comment on above: Follow dosing instru ctions, take with food. MULTIVITAMIN NO.43-IRON-FA ORAL (20 sources) MULTIVITAMIN NO. 43-IRON-FA ORAL Take by mouth. Active MULTIVITAMIN NO. 43-IRON-FA ORAL Take by mouth. 0 Active Comment on above: Take by mouth. multivitamin with iron (2 sources) Start: 08-20-2023 multivitamin w ith iron Active 1 {tbl} PO DAILY August 20, 2023 12:00am supplement Start: 08-20-2023 multivitamin w ith iron Active 1 {tbl} PO DAILY August 20, 2023 12:00am mupirocin 0.02 mg/mg topical ointment (7 sources) RNA Synthetase Inhibitor Antibacterial Start: 08-28-2021 End: 09-27-2021 mupirocin (BACTROBAN) 2 % ointment Indications: Excoriation of face, subsequent encounter Apply 1 application to affected area three times daily. 30 g 1 08/28/2021 09/27/2021 Active Comment on above: Apply 1 application to affected area three times daily. nabumetone (20 sources) Nonsteroidal Anti-inflammatory Drug Start: 06-24-2021 Relafen Active Ma y 16th, 2022 2:26pm Start: 06-24-2021 End: 08-20-2023 Relafen Discontinued June 12:00am August 20, 2023 1:15pm Start: 06-24-2021 Relafen Active June 23, 2021 11:00pm Start: 06-24-2021 Relafen Active June 24, 2021 12:00am Start: 02-15-2021 End: 09-18-2021 take 1 tablet by mouth twice daily at mealtime nabumetone (RELAFEN) 500 mg tablet Take 500 mg by mouth twice daily. TAKE WITH FOOD. 02/15/2021 09/18/2021 Discontinued Comment on above: Take 500 mg by mouth twice daily. TAKE WITH FOOD. Nebulizer Accessories kit (20 sources) Start: 02-29-2024 Nebulizer Accessories kit Indications: Intermittent asthma, unspecified asthma severity, unspecified whether complicated (HCC) , Influenza A , Flu-like symptoms 1 Units once daily as needed. 1 Each 02/29/2024 Active Start: 02-29-2024 Nebulizer Acce ssories kit Indications: Intermittent asthma, unspecified asthma severity, unspecified whether complicated , Influenza A , Flu-like symptoms 1 Units once daily as needed. 1 Each 02/29/2024 Active Start: 02-28-2024 End: 02-29-2024 Nebulizer Accessories kit 1 Units once daily as needed. 1 Each 02/28/2024 02/29/2024 Discontinued Start: 02-28-2024 Nebulizer Acce ssories kit 1 Units once daily as needed. 1 Each 02/28/2024 Active nirmatrelvir tablet 300 mg (150 mg x 2) and ritonavir tablet 100 mg in a dose pack (PAXLOVID) (2 sources) Start: 01-18-2022 End: 01-23-2022 nirmatrelvir tablet 300 mg (150 mg x 2) and ritonavir tablet 100 mg in a dose pack (PAXLOVID) Indications: COVID Administer TWO pink nirmatrelvir 150 mg tablets and ONE white ritonavir 100 mg tablet for a total of three tablets twice daily. 30 tablet 0 01/18/2022 01/23/2022 Active Comment on above: Administer TWO pink nirmatrelvir 150 mg tablets and ONE white ritonavir 100 mg tablet for a total of three tablets twice daily. oseltamivir 75 mg oral capsule (2 sources) Neuraminidase Inhibitor Start: 02-28-2024 End: 03-04-2024 take 1 capsule by mouth twice daily oseltamivir (TAMIFLU) 75 mg capsule Take 1 capsule by mouth two times a day for 5 days. 10 capsule 02/28/2024 03/04/2024 Active pregabalin 75 mg oral capsule (20 sources) Start: 03-23-2023 End: 08-09-2023 take 1 capsule by mouth twice daily pregabalin (LYRICA) 75 mg capsule Indications: Cervical radiculopathy Take 1 capsule by mouth two times a day for 90 days. 60 capsule 0 05/11/2023 07/22/2023 Discontinued Start: 12-15-2019 End: 10-15-2024 take 1 capsule by mouth once daily pregabalin (LYRICA) 75 mg capsule Indications: Cervical radiculopathy Take 1 capsule by mouth once daily for 180 days. 30 capsule 5 04/18/2024 10/15/2024 Active Start: 12-15-2019 End: 06-20-2022 take 1 capsule by mouth twice daily pregabalin (LYRICA) 75 mg capsule Indications: Cervical radiculopathy Take 1 capsule by mouth twice daily for 30 days. 60 capsule 5 08/17/2020 03/03/2021 Discontinued Start: 09-27-2019 take 1 capsule by mo uth twice daily LYRICA 75 MG CAPS Take 1 capsule by mouth 2 times a day PREGABALIN [phone] Sri Duran CARBON ACCOUNTANT-SAUSAGE GRINDER Comment on above: Take 1 capsule by mo uth twice daily for 30 days. Take 1 capsule by mo uth two times a day for 90 days. sennosides, long-term 8.6 mg oral tablet (6 sources) Start: End: take 1 tablet by mouth every twelve hours as needed senna (SENOKOT) 8.6 mg tab Take 1 tablet by mouth two times a day as needed for constipation for up to 15 days. 30 tablet 03/14/2024 03/29/2024 Active sertraline 50 mg oral tablet (20 sources) Serotonin Reuptake Inhibitor Start: End: take 1 tablet by mouth once daily sertraline (ZOLOFT) 50 mg tablet Indications: Anxiety with depression Take 1 tablet by mouth once daily. 30 tablet 5 02/22/2024 Active sulfamethoxazole 800 mg / trimethoprim 160 mg oral tablet (1 source) Dihydrofolate Reductase Inhibitor Antibacterial, Sulfonamide Antimicrobial Start: End: take 1 tablet by mouth twice daily sulfamethoxazole-tr imethoprim (BACTRIM DS) 800-160 mg per tablet Take 1 tablet by mouth two times a day for 7 days. 14 tablet 05/31/2024 06/07/2024 Active SUMAtriptan 100 mg oral tablet (20 sources) Serotonin-1b and Serotonin-1d Receptor Agonist Start: End: take 1 tablet by mouth every two hours as needed for headache SUMAtriptan (IMITREX) 100 mg tablet Take 1 tablet (100 mg) by mouth as needed. START AT ONSET OF HEADACHE. MAY REPEAT DOSE AFTER 2 HOURS. 9 tablet 5 05/11/2023 Active Comment on above: Take 1 tablet by shahida th as needed. START AT ONSET OF HEADACHE. MAY REPEAT DOSE AFTER 2 HOURS. Take 1 tablet (100 m g) by mouth as needed. START AT ONSET OF HEADACHE. MAY REPEAT DOSE AFTER 2 HOURS. traMADol hydrochloride 50 mg oral tablet (20 sources) Opioid Agonist Start: End: take 1 tablet by mouth twice daily as needed for pain traMADol (ULTRAM) 50 mg tablet Indications: Acute post-operative pain Take 1 tablet by mouth two times a day as needed for pain for up to 7 days. 14 tablet 03/21/2024 03/28/2024 Active Start: 12-12-2018 End: 07-24-2021 take 1 tablet by mouth every four hours as needed for pain Tramadol 50 MG tablet Discontinued 50 mg PO EVERY 4 HOURS NEEDED as needed for Pain 14 December 12, 2018 12:00am December 14, 2018 1:00am December 19, 2018 1:10am Comment on above: Tramadol Active 50 M G EVERY 4 HOURS NEEDED 14 December 12, 2018 12:36am triamcinolone acetonide 0.70578 mg/mg topical ointment (2 sources) Corticosteroid Start: 12-11-19 End: 12-25-19 triamcinolone (KENALOG) 0.025 % ointment Indications: Chapped lips Apply to affected area twice daily for 14 days. To the upper lip. 15 g 0 12/10/2021 12/24/2021 Active Comment on above: Apply to affected ar ea twice daily for 14 days. To the upper lip. valACYclovir 500 mg oral tablet (20 sources) Herpesvirus Nucleoside Analog DNA Polymerase Inhibitor, Herpes Simplex Virus Nucleoside Analog DNA Polymerase Inhibitor, Herpes Zoster Virus Nucleoside Analog DNA Polymerase Inhibitor Start: 08-20-19 End: 08-17-19 take 1 tablet by mouth once daily Valacyclovir 500 mg tablet Discontinued 500 mg PO DAILY August 20, 2023 12:00am August 16, 2024 9:03am HSV Start: 02-16-2023 End: 03-28-2024 take 4 tablets by mouth twice daily, then take 1 tablet by mouth once daily valACYclovir (VALTREX) 500 mg tablet Indications: Recurrent cold sores Take 4 tablets twice daily X 1 day. Then start one tablet by mouth daily thereafter. 38 tablet 4 03/28/2024 Active Start: 12-10-2021 End: 07-01-2022 take 4 tablets by mouth twice daily, then take 1 tablet by mouth once daily valACYclovir (VALTREX) 500 mg tablet Indications: Recurrent cold sores Take 4 tablets twice daily X 1 day. Then start one tablet by mouth daily thereafter. 38 tablet 4 07/01/2022 Active Comment on above: Take 4 tablets twice daily X 1 day. Then start one tablet by mouth daily thereafter. Vitamin B Complex (Complex B-100) tablet extended release (2 sources) Start: 08-20-2023 Vitamin B Complex (Complex B-100) tablet extended release Active 1 {tbl} PO DAILY August 20, 2023 12:00am supplement Start: 08-20-2023 Vitamin B Comp jerad (Complex B-100) tablet extended release Active 1 {tbl} PO DAILY August 20, 2023 12:00am vitamin b12 0.1 mg oral tablet (20 sources) Vitamin B12 take 1 tablet by mouth once daily cyanocobalamin (VITAMIN B-12) 100 mcg tab Take 100 mcg by mouth once daily. Active Comment on above: Take 100 mcg by mout h once daily. Completed/Discontinued Medications Medication Drug Class(es) Dates Sig (Normalized) Sig (Original) acetaminophen 325 mg / HYDROcodone bitartrate 5 mg oral tablet (13 sources) Opioid Agonist Start: 09-02-2023 End: 03-08-2024 Hydrocodone-Acetami nophen 5-325 mg tablet Discontinued 1 {tbl} PO EVERY 4 HOURS NEEDED as needed for Pain 10 2 0 September 02, 2023 March 08, 2024 11:51am Muscle strain of chest wall Strain of muscle and tendon of front wall of thorax, initial encounter Start: 06-27-2021 End: 08-20-2023 Hydrocodone-Acetaminophen 5- 325 mg tablet Discontinued 1 {tbl} PO EVERY 6 HOURS as needed for pain 10 3 0 June 27, 2021 August 20, 2023 1:11pm Acute mesenteric adenitis Nonspecific mesenteric lymphadenitis Start: 06-27-2021 take 1 tablet by shahida th every six hours Hydrocodone-Acetaminophen Active 1 TABLE T PO EVERY 6 HOURS 10 3 June 27, 2021 Start: 04-16-2018 End: 04-18-2018 Hydrocodone-Acetaminophen 1 TABLET tablet Discontinued 1 {tbl} PO EVERY 4 HOURS NEEDED as needed for Pain 20 2 0 April 16, 2018 1:00am April 17, 2018 1:00am April 18, 2018 1:10am Strain of lumbar region Strain of muscle, fascia and tendon of lower back, initial encounter Start: 04-16-2018 End: 04-18-2018 take 1 tablet by mouth every four hours as needed Hydrocodone-Acetaminophen Discontinued 1 TABLET PO EVERY 4 HOURS NEEDED 20 2 April 16, 2018 12:00am April 18, 2018 12:10am albuterol 0.83 mg/ml inhalation solution (20 sources) beta2-Adrenergic Agonist Start: 04-16-2021 End: 04-14-2024 take 2.5 mg by inhalation every four hours as needed albuterol (PROVENTIL) 2.5 mg /3 mL (0.083 %) nebulizer solution Use 3 mL via nebulizer every 4 hours as needed for wheezing/shortness of breath. Use over 5-15minutes. 100 mL 02/28/2024 04/14/2024 Discontinued (Course of therapy completed) Start: 04-16-2021 End: 07-22-2023 take 2 puff(s) by inhalation every four hours as needed albuterol HFA (PROAIR HFA) 90 mcg/actuation inhaler Indications: Viral bronchitis Inhale 2 Puffs as instructed every 4 hours as needed. 18 g 0 2022 07/22/2023 Discontinued Start: 12-04-2018 End: 08-20-2023 take 2.5 mg by inhalation every four hours as needed for wheezing Albuterol Sulfate 2.5 mg /3 mL (0.083 %) solution for nebulization Discontinued 2.5 mg INHALATION EVERY 4 HOURS NEEDED 25 0 September 30, 2022 12:00am August 20, 2023 1:11pm Use q4 hours and PRN for wheezing Comment on above: Use 3 mL via nebuliz er every 4 hours as needed for wheezing/shortness of breath. Inhale 2 Puffs as in structed every 4 hours as needed. Albuterol Aerosols A ctive 2.5 MG EVERY 4 HOURS WHILE AWAKE December 04, 2018 8:47pm albuterol 0.833 mg/ml / ipratropium bromide 0.167 mg/ml inhalation solution (6 sources) Anticholinergic, beta2-Adrenergic Agonist Start: 019 End: take 1 mL by inhalation every four hours as needed for wheezing Ipratropium-Albute rol 3 ML solution for nebulization Discontinued 3 mL inhalation EVERY 4 HOURS as needed for Sob &/Or Wheezing 20 0 December 04, 2018 10:22pm August 20, 2023 1:12pm benzonatate 100 mg oral capsule (18 sources) Non-narcotic Antitussive Start: 023 End: 024 take 1 capsule by mouth every eight hours as needed benzonatate (TESSALON PERLES) 100 mg capsule Take 1 capsule by mouth three times daily as needed for cough. 15 capsule 0 10/03/2022 07/22/2023 Discontinued Start: 04-16-2021 End: 07-24-2021 benzonatate (TESSALON PERLE) 100 mg capsule Take 1-2 capsules tid prn, no more than 6 in 24 hours. 30 capsule 0 04/16/2021 07/24/2021 Discontinued (Discontinued by Patient) Comment on above: Take 1-2 capsules ti d prn, no more than 6 in 24 hours. Take 1 capsule by mo [facility] healthcare three times daily as needed for cough. Calcium Citrate (15 sources) End: 08-28-2021 CALCIUM CITRATE ORAL Take by mouth. 0 08/28/2021 Discontinued (Course of therapy completed) CALCIUM CITRATE ORAL Take by mouth. 0 Active Comment on above: Take by mouth. cephalexin 500 mg oral capsule (3 sources) Cephalosporin Antibacterial Start: 024 End: 024 take 1 capsule by mouth every six hours Cephalexin 500 mg capsule Discontinued 500 mg PO EVERY 6 HOURS 40 0 March 05, 2023 1:00am August 20, 2023 1:11pm cyclobenzaprine hydrochloride 10 mg oral tablet (20 sources) Muscle Relaxant Start: 025 End: take 1 tablet by mouth every eight hours as needed cyclobenzaprine (FLEXERIL) 10 mg tablet Take 1 tablet by mouth three times a day as needed for muscle spasm. 18 tablet 03/26/2024 04/14/2024 Discontinued (Course of therapy completed) Start: 05-22-2022 End: 07-22-2023 take 1 tablet by mouth three times daily as needed cyclobenzaprine (FLEXERIL) 10 mg tablet Indications: Sciatica, right side Take 1 tablet by mouth three times daily as needed. 30 tablet 0 05/22/2022 07/22/2023 Discontinued (Other) Start: 04-16-2018 End: 07-24-2021 cyclobenzaprine (FLEXERIL) 1 0 mg tablet Take 10 mg by mouth. 0 04/16/2018 07/24/2021 Discontinued (Discontinued by Patient) Comment on above: Take 10 mg by mouth. [facility] as [facility]. diazePAM 10 mg oral tablet (17 sources) Benzodiazepine Start: 020 End: take 1 tablet by mouth every eight hours as needed for muscle spasms Diazepam 10 MG tablet Discontinued 10 mg PO EVERY 8 HOURS NEEDED as needed for Muscle Spasm 14 5 0 September 26, 2019 2:02pm September 30, 2019 12:00am October 01, 2019 12:02am Muscle spasm Other muscle spasm Comment on above: Take by mouth q 8 HR . diphenhydrAMINE 12.5 mg/5 mL hydrocortisone lidocaine visc 2% nystatin oral liquid 180 mL:120 m mL:30 mL (CPD) (2 sources) Start: End: take 10 mL by mouth every six hours as needed diphenhydrAMINE 12.5 mg/5 mL hydrocortisone lidocaine visc 2% nystatin oral liquid 180 mL:120 m mL:30 mL (CPD) Take 10 mL by mouth four times daily as needed. Swish and spit/swallow 200 mL 1 12/10/2021 12/10/2021 Discontinued (Other) Comment on above: Take 10 mL by mouth four times daily as needed. Swish and spit/swallow diphenhydrAMINE 12.5 mg/5 mL lidocaine visc 2% MAALOX 200-200-20/5 mL nystatin oral liquid 4:1.66:1:1 (CPD) (10 sources) Start: End: take 5 mL by mouth every six hours as needed diphenhydrAMINE 12.5 mg/5 mL lidocaine visc 2% MAALOX 200-200-20/5 mL nystatin oral liquid 4:1.66:1:1 (CPD) Take 5 mL by mouth every 6 hours as needed. Swish and swallow. 230 mL 0 12/10/2021 03/31/2022 Discontinued Start: 12-10-2021 take 5 mL by mouth e very six hours as needed diphenhydrAMINE 12.5 mg/5 mL lidocaine visc 2% MAALOX 200-200-20/5 mL nystatin oral liquid 4:1.66:1:1 (CPD) Take 5 mL by mouth every 6 hours as needed. Swish and swallow. 230 mL 0 12/10/2021 Active Comment on above: Take 5 mL by mouth e very 6 hours as needed. Swish and swallow. ferrous gluconate (2 sources) Start: 08-20-2023 End: 03-08-2024 ferrous gluconate Discontinued 1 {tbl} PO DAILY August 20, 2023 12:00am March 08, 2024 11:51am iron supplement Start: 08-20-2023 End: 03-08-2024 ferrous gluconate Discontinu ed 1 {tbl} PO DAILY August 20, 2023 12:00am March 08, 2024 11:51am fexofenadine hydrochloride 180 mg oral tablet (20 sources) Histamine-1 Receptor Antagonist Start: 06-05-2022 End: 05-10-2024 take 1 tablet by mouth once daily fexofenadine (LAKISHA ALLERGY) 180 mg tablet Indications: Allergy, subsequent encounter Take 1 tablet by mouth once daily. 30 tablet 11 05/11/2023 02/15/2024 Discontinued Comment on above: Take 1 tablet by shahida once daily. 120 actuat fluticasone propionate 0.11 mg/actuat metered dose inhaler (11 sources) Corticosteroid Start: 03-29-2019 End: 07-25-2021 take 2 puff(s) by inhalation twice daily fluticasone (FLOVENT HFA) 110 mcg/actuation inhaler Inhale 2 Puffs as instructed twice daily. 1 Inhaler 5 04/16/2021 07/25/2021 Discontinued (Discontinued by Patient) Comment on above: Inhale 2 Puffs as in structed twice daily. ammonium lactate 120 mg/ml topical lotion (20 sources) Start: 12-12-2016 End: 02-15-2024 ammonium lactate (AMLACTIN) 12 % lotion Indications: Keratosis pilaris apply to rash 2-3 times a day as needed 1 Bottle 4 12/12/2016 02/15/2024 Discontinued Comment on above: apply to rash 2-3 ti mes a day as needed lidocaine 0.05 mg/mg medicated patch (3 sources) Antiarrhythmic, Amide Local Anesthetic Start: 09-02-2023 End: 03-08-2024 Lidocaine 5 % adhesive patch,medicated Discontinued 1 NMA TOPICAL DAILY September 02, 2023 12:00am March 08, 2024 11:51am Start: 08-31-2023 End: 09-07-2023 lidocaine 5% topical film Ap ply 1 patch(es), Topical, qDay, remove patches after 12 hours, X 7 day(s), # 7 patch(es), 0 Refill(s), 89.9 Start Date: 08/31/23 Stop Date: 09/07/23 Status: Ordered loratadine 10 mg oral tablet (20 sources) Start: 12-16-2019 End: 08-20-2023 take 1 tablet by mouth once daily Loratadine (Claritin) 10 mg Tablet Discontinued 10 mg PO DAILY November 05, 2020 12:00am August 20, 2023 1:14pm Comment on above: Take 1 tablet by shahida once daily as needed. minocycline 100 mg oral capsule (6 sources) Tetracycline-cl ass Drug Start: 08-28-2021 End: 09-18-2021 take 1 capsule by mouth once daily minocycline (MINOCIN, DYNACIN) 100 mg capsule Indications: Excoriation of face, subsequent encounter Take 1 capsule by mouth once daily. 30 capsule 1 08/28/2021 09/18/2021 Discontinued Comment on above: Take 1 capsule by mo [facility] once daily. multivit-min/ferrou s fumarate (MULTI VITAMIN ORAL) (15 sources) End: 08-28-2021 multivit-min/ferrou s fumarate (MULTI VITAMIN ORAL) Take by mouth. 0 08/28/2021 Discontinued (Course of therapy completed) multivit-min/victor hugo connie fumarate (MULTI VITAMIN ORAL) Take by mouth. 0 Active Comment on above: Take by mouth. naproxen 500 mg oral tablet (16 sources) Nonsteroidal Anti-inflammatory Drug Start: 4 End: 5 take 1 tablet by mouth twice daily Naproxen 500 mg tablet Discontinued 500 mg PO TWICE A DAY September 02, 2023 12:00am March 08, 2024 11:50am Start: 07-15-2021 End: 09-18-2021 take 1 tablet by mouth twice daily as needed for pain naproxen (NAPROSYN) 500 mg tablet Indications: Cubital tunnel syndrome on left Take 1 tablet by mouth twice daily as needed for pain. Take with food. 60 tablet 0 07/15/2021 09/18/2021 Discontinued Comment on above: Take 1 tablet by shahida twice daily as needed for pain. Take with food. norethindrone acetate 5 mg oral tablet (20 sources) Start: 3 End: 5 take 1 tablet by mouth twice daily norethindrone (AYGESTIN) 5 mg tablet Take 1 tablet by mouth twice daily for 7 days. 14 tablet 05/19/2022 02/15/2024 Discontinued Comment on above: Take 1 tablet by [facility] twice daily for 7 days. omeprazole 40 mg delayed release oral capsule (20 sources) Proton Pump Inhibitor Start: 2 End: 3 take 1 capsule by mouth twice daily omeprazole (PRILOSEC) 40 mg capsule Take 1 capsule by mouth twice daily. 60 capsule 5 09/19/2021 03/31/2022 Discontinued Start: 06-10-2021 End: 09-17-2021 take 1 capsule by mouth twice daily omeprazole (PRILOSEC) 40 mg capsule Take 1 capsule by mouth twice daily. 60 capsule 0 08/14/2021 09/17/2021 Discontinued Start: 05-08-2021 take 1 capsule by mo [facility] twice daily omeprazole (PRILOSEC) 40 mg capsule Take 1 capsule by mouth twice daily. 60 capsule 0 05/08/2021 Active Start: 01-30-2021 End: 03-03-2021 take 1 capsule by mouth twice daily omeprazole (PRILOSEC) 40 mg capsule Take 1 capsule by mouth twice daily. 60 capsule 01/30/2021 03/03/2021 Discontinued Start: 04-16-2018 End: 08-20-2023 take 1 capsule by mouth once daily Omeprazole 40 capsule,delayed release(DR/EC) Discontinued 40 mg PO DAILY April 16, 2018 1:00am August 20, 2023 1:12pm Comment on above: Take 1 capsule by [facility] twice daily. ondansetron 4 mg oral tablet (20 sources) Serotonin-3 Receptor Antagonist Start: 2 End: 4 take 1 tablet by mouth once daily as needed for nausea ondansetron (ZOFRAN) 4 mg tablet Take 1 tablet by mouth once daily as needed for nausea/vomiting (for nausea.) for up to 40 doses. 20 tablet 1 10/02/2021 07/22/2023 Discontinued Start: 06-27-2021 End: 08-20-2023 take 1 tablet by mouth every eight hours as needed for nausea and vomiting Ondansetron 4 mg tablet,disintegrating Discontinued 4 mg PO Q8H as needed for nausea and vomiting 14 June 27, 2021 12:00am August 20, 2023 1:14pm Comment on above: Take 1 tablet by shahida th once daily as needed for nausea/vomiting (for nausea.) for up to 40 doses. oxyCODONE hydrochloride 5 mg oral tablet (20 sources) Opioid Agonist Start: 2021 End: 2021 take 1 tablet by mouth every eight hours as needed for pain oxyCODONE IR (ROXICODONE) 5 mg immediate release tablet Indications: Postoperative pain Take 1 tablet by mouth every 8 hours as needed for pain for up to 10 doses. 10 tablet 0 10/02/2021 01/18/2022 Discontinued Comment on above: Take 1 tablet by shahida th every 8 hours as needed for pain for up to 10 doses. pantoprazole 40 mg delayed release oral tablet (20 sources) Proton Pump Inhibitor Start: 2021 End: 2023 take 1 tablet by mouth once daily pantoprazole DR (PROTONIX) 40 mg tablet Take 1 tablet by mouth once daily. To be taken for 1 year after the surgery 30 tablet 11 09/25/2021 07/22/2023 Discontinued Comment on above: Take 1 tablet by shahida once daily. To be taken for 1 year after the surgery perflutren lipid microspheres 1.3 mL in NaCl (PF) 0.9% 10 mL injection (DEFINITY) (1 source) Start: 2019 End: 2021 perflutren lipid microspheres 1.3 mL in NaCl (PF) 0.9% 10 mL injection (DEFINITY) phentermine hydrochloride 37.5 mg oral tablet (20 sources) Sympathomimetic Amine Anorectic Start: 2021 End: 2023 take 1 tablet by mouth once daily Phentermine 37.5 mg tablet Discontinued 37.5 mg PO DAILY June 24, 2021 12:00am August 20, 2023 1:15pm Comment on above: Take 1 tablet by shahida th once daily for 30 days. silver sulfADIAZINE 10 mg/ml topical cream (8 sources) Sulfonamide Antibacterial Start: 2024 End: 2024 silver sulfADIAZINE (SILVADENE) 1 % cream Apply to incision twice a day as directed 400 g 1 03/24/2024 04/14/2024 Discontinued (Course of therapy completed) 1000 ml sodium chloride 9 mg/ml injection (6 sources) Start: 2021 End: 2021 inject 40 mg intravenously every hour 0.9 % sodium chloride (NACL 0.9%) infusion Indications: Bariatric surgery status Inject 500 mL/hr intravenously one time only for 1 dose. BANANA BAG - Call [facility] for Report and Appt [id number]. If no answer call [phone] Charge Nurse. If no answer call [phone] Field Service Poultry Technician Nurse Transmitter Operator. Banana bag (1000 cc's in 2 hours) + Normal Saline (1000 cc's in 1 hour) + Zofran 4 mg IV stat + Protonix 40 mg IV Stat. - If Banana bag not available: Normal Saline (2000 cc's in 2 hours) + Thiamine 100 mg IV piggyback + Zofran 4 mg IV stat + Protonix 40 mg IV Stat. FOR PHYSICIANS REFERENCE ONLY: If heart failure or renal failure: Banana bag (1000 cc's in 2 hours) + Zofran 4 mg IV stat + Protonix 40 mg IV Stat. - If Banana bag not available: Normal Saline (1000 cc's in 2 hours) + Thiamine 100 mg IV piggyback + Zofran 4 mg IV stat + Protonix 40 mg IV Stat. 1000 mL 0 10/23/2021 10/23/2021 Start: 01-30-2020 End: 05-01-2021 sodium chloride 0.9 % (flush ) 10 mL (BD POSIFLUSH) Comment on above: Inject 100 mL/hr int ravenously one time only for 1 dose. BANANA BAG - Call [facility] for Report and Appt [id number]. If no answer call [phone] Charge Nurse. If no answer call [phone] Field Service Poultry Technician Nurse Transmitter Operator. Banana bag (1000 cc's in 2 hours) + Normal Saline (1000 cc's in 1 hour) + Zofran 4 mg IV stat + Protonix 40 mg IV Stat. - If Banana bag not available: Normal Saline (2000 cc's in 2 hours) + Thiamine 100 mg IV piggyback + Zofran 4 mg IV stat + Protonix 40 mg IV Stat. FOR PHYSICIANS REFERENCE ONLY: If heart failure or renal failure: Banana bag (1000 cc's in 2 hours) + Zofran 4 mg IV stat + Protonix 40 mg IV Stat. - If Banana bag not available: Normal Saline (1000 cc's in 2 hours) + Thiamine 100 mg IV piggyback + Zofran 4 mg IV stat + Protonix 40 mg IV Stat. Inject 500 mL/hr int ravenously one time only for 1 dose. BANANA BAG - Call [facility] for Report and Appt [id number]. If no answer call [phone] Charge Nurse. If no answer call [phone] Field Service Poultry Technician Nurse Transmitter Operator. Banana bag (1000 cc's in 2 hours) + Normal Saline (1000 cc's in 1 hour) + Zofran 4 mg IV stat + Protonix 40 mg IV Stat. - If Banana bag not available: Normal Saline (2000 cc's in 2 hours) + Thiamine 100 mg IV piggyback + Zofran 4 mg IV stat + Protonix 40 mg IV Stat. FOR PHYSICIANS REFERENCE ONLY: If heart failure or renal failure: Banana bag (1000 cc's in 2 hours) + Zofran 4 mg IV stat + Protonix 40 mg IV Stat. - If Banana bag not available: Normal Saline (1000 cc's in 2 hours) + Thiamine 100 mg IV piggyback + Zofran 4 mg IV stat + Protonix 40 mg IV Stat. sucralfate 100 mg/ml oral suspension (5 sources) Aluminum Complex Start: 2 End: 4 take 1 g by mouth three times daily Sucralfate (Carafate) 100 mg/mL suspension Discontinued 1 g PO THREE TIMES A DAY 420 14 0 June 27, 2021 12:00am August 20, 2023 1:15pm tiZANidine 4 mg oral tablet (11 sources) Central alpha-2 Adrenergic Agonist Start: 1 End: 2 take 1 tablet by mouth every eight hours as needed tiZANidine (ZANAFLEX) 4 mg tablet Take 1 tablet by mouth every 8 hours as needed. 20 tablet 03/08/2020 07/24/2021 Discontinued (Discontinued by Patient) Comment on above: Take 1 tablet by shahida th every 8 hours as needed. Problems Active Problems Problem Classification Problem Date Documented Da te Episodic/Chronic Abdominal pain (7 sources) Acute abdominal pain; Translations: [Unspecified abdominal pain] Episodic Acute bronchitis (8 sources) Acute bronchitis; Translations: [Acute bronchitis, unspecified] 2022 Episodic Anxiety disorders (1 source) Mixed anxiety and depressive disorder; Translations: [Other specified anxiety disorders] 02-22-2024 Chronic Asthma (20 sources) Mild intermittent asthma; Translations: [Mild intermittent asthma, uncomplicated] Onset: 9 Resolved: 6 03-19-2018 Chronic Benign neoplasm of uterus (13 sources) Intramural leiomyoma of uterus; Translations: [Intramural leiomyoma of uterus] Onset: 5 07-21-2024 Episodic Blindness and vision defects (3 sources) Visual impairment; Translations: [Unspecified visual loss] Onset: 4 08-25-2023 Chronic Blindness and vision defects (2 sources) Eye / vision finding; Translations: [Unspecified visual disturbance] 08-29-2023 Episodic Cardiac dysrhythmias (20 sources) Supraventricular tachycardia; Translations: [Supraventricular tachycardia] Onset: 2 03-04-2021 Chronic Chronic obstructive pulmonary disease and bronchiectasis (5 sources) Bronchitis; Translations: [Bronchitis, not specified as acute or chronic] 09-30-2022 Episodic Complications of surgical procedures or medical care (2 sources) Postoperative wound infection-superficial; Translations: [Infection following a procedure, other surgical site, initial encounter] 06-02-2024 Episodic Conditions associated with dizziness or vertigo (2 sources) Lightheadedness; Translations: [Dizziness and giddiness] Episodic Diabetes mellitus without complication (2 sources) Hyperglycemia; Translations: [Hyperglycemia, unspecified] Episodic Diseases of mouth; excluding dental (2 sources) Chapping of lips; Translations: [Diseases of lips] Episodic Endometriosis (14 sources) Uterine adenomyosis; Translations: [Adenomyosis of uterus] Onset: 5 07-21-2024 Chronic Esophageal disorders (20 sources) Gastroesophageal reflux disease without esophagitis; Translations: [Gastro-esophageal reflux disease without esophagitis] Onset: 6 06-01-2015 Chronic Fever of unknown origin (2 sources) Fever; Translations: [Fever, unspecified] Onset: 5 08-16-2024 Episodic Genitourinary congenital anomalies (13 sources) Uterus arcuatus; 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] Onset: 5 07-21-2024 Chronic Headache; including migraine (20 sources) Migraine; Translations: [Migraine, unspecified, not intractable, without status migrainosus] Onset: 5 02-04-2021 Chronic Headache; including migraine (6 sources) Headache; Translations: [Headache, unspecified headache type] 08-25-2023 Episodic Headache; including migraine (1 source) Headache; including migraine; Translations: [Headache, unspecified headache type] Onset: 4 Immunizations and screening for infectious disease (4 sources) Vaccination needed; Translations: [Encounter for immunization] Onset: 5 10-30-2023 Episodic Influenza (2 sources) Influenza due to Influenza A virus; Translations: [Influenza due to other identified influenza virus with other respiratory manifestations] 02-28-2024 Episodic Joint disorders and dislocations; trauma-related (20 sources) Derangement of knee; Translations: [Internal derangement of knee] Onset: 6 12-10-2005 Chronic Lymphadenitis (9 sources) Acute mesenteric adenitis; Translations: [Nonspecific mesenteric lymphadenitis] 07-02-2021 Episodic Menstrual disorders (20 sources) Irregular periods; Translations: [Irregular menstruation, unspecified] Onset: 5 Chronic Nonmalignant breast conditions (1 source) Pain of breast; Translations: [Mastodynia] 10-30-2023 Episodic Nutritional deficiencies (3 sources) Vitamin D deficiency; Translations: [Vitamin D deficiency, unspecified] Onset: 4 09-28-2023 Chronic Osteoarthritis (20 sources) Osteoarthritis of multiple joints ; Translations: [Polyosteoarthritis, unspecified] Onset: 2 05-06-2021 Chronic Other aftercare (9 sources) Patient encounter status; Translations: [Other ferry terminal agent (current) drug therapy] Episodic Other aftercare (3 sources) Surgical follow-up; Translations: [Encounter for surgical aftercare following surgery on the digestive system] Episodic Other ear and sense organ disorders (1 source) Otalgia, left ear; Translations: [Otalgia, unspecified] 08-31-2024 Episodic Other female genital disorders (5 sources) Abnormal uterine bleeding; Translations: [Abnormal uterine and vaginal bleeding, unspecified] Onset: 5 08-04-2024 Chronic Other female genital disorders (2 sources) Abnormal uterine and vaginal bleeding, unspecified; Translations: [Abnormal uterine bleeding (AUB)] Onset: 5 Chronic Other female genital disorders (11 sources) Cyst of uterine adnexa; Translations: [Other noninflammatory disorders of ovary, fallopian tube and broad ligament] Onset: 5 07-21-2024 Episodic Other gastrointestinal disorders (5 sources) History of bariatric surgical procedure; Translations: [Bariatric surgery status] Episodic Other inflammatory condition of skin (1 source) Intertrigo; Translations: [Erythema intertrigo] 10-08-2023 Episodic Other injuries and conditions due to external causes (2 sources) Allergic condition; Translations: [Allergy, unspecified, subsequent encounter] Episodic Other lower respiratory disease (7 sources) Cough; Translations: [Cough] 09-30-2022 Episodic Other nervous system disorders (1 source) Lesion of ulnar nerve, left upper limb; Translations: [Lesion of ulnar nerve] Chronic Other nervous system disorders (2 sources) H/O: migraine; Translations: [Personal history of other diseases of the nervous system and sense organs] 08-25-2023 Episodic Other nervous system disorders (2 sources) Tremor; Translations: [Tremor, unspecified] 06-02-2024 Episodic Other non-traumatic joint disorders (20 sources) Disorder of joint of ankle and/or foot; Translations: [Other specific joint derangements of unspecified ankle, not elsewhere classified] Onset: 5 05-12-2014 Chronic Other non-traumatic joint disorders (20 sources) Joint derangement; Translations: [Other specific joint derangements of unspecified ankle, not elsewhere classified] Onset: 5 05-12-2014 Chronic Other non-traumatic joint disorders (6 sources) Effusion of right knee joint; Translations: [Effusion, right knee] 07-22-2018 Episodic Other nutritional; endocrine; and metabolic disorders (2 sources) Excess panniculus of abdomen; Translations: [Localized adiposity] 09-28-2023 Chronic Other nutritional; endocrine; and metabolic disorders (1 source) Localized adiposity; Translations: [Abdominal pannus] Onset: 5 Chronic Other nutritional; endocrine; and metabolic disorders (1 source) Body weight problem; Translations: [Other symptoms and signs concerning food and fluid intake] Episodic Other screening for suspected conditions (not mental disorders or infectious disease) (4 sources) Cancer cervix screening status; Translations: [Encounter for screening for malignant neoplasm of cervix] Onset: 5 07-22-2024 Episodic Other skin disorders (2 sources) Eruption; Translations: [Rash and other nonspecific skin eruption] Episodic Other skin disorders (3 sources) Skin finding; Translations: [Excessive and redundant skin and subcutaneous tissue] 10-08-2023 Episodic Other skin disorders (2 sources) Excessive and redundant skin and subcutaneous tissue; Translations: [Excess skin] Onset: Episodic Other upper respiratory disease (20 sources) Seasonal allergy; Translations: [Other seasonal allergic rhinitis] Onset: 5 10-09-2014 Chronic Other upper respiratory infections (16 sources) Acute upper respiratory infection; Translations: [Acute upper respiratory infection, unspecified] Episodic Residual codes; unclassified (2 sources) Influenza-like symptoms; Translations: [Other general symptoms and signs] 06-15-2017 Episodic Residual codes; unclassified (1 source) Did not attend; Translations: [No-show for appointment] Episodic Residual codes; unclassified (6 sources) Viral syndrome; Translations: [Other general symptoms and signs] 06-15-2017 Episodic Residual codes; unclassified (1 source) Intolerant of cold; Translations: [Other general symptoms and signs] 07-22-2023 Episodic Residual codes; unclassified (2 sources) Confusional state; Translations: [Disorientation, unspecified] 08-25-2023 Episodic Residual codes; unclassified (1 source) Pain; Translations: [Pain, unspecified] 02-22-2021 Episodic Residual codes; unclassified (3 sources) Postoperative state; Translations: [Other specified postprocedural states] 03-24-2024 Episodic Residual codes; unclassified (2 sources) Other specified postprocedural states; Translations: [S/P panniculectomy] Onset: Episodic Residual codes; unclassified (1 source) Generalized aches and pains; Translations: [Pain, unspecified] 08-16-2024 Episodic Spondylosis; intervertebral disc disorders; other back problems (3 sources) Cervical radiculopathy; Translations: [Degeneration of cervical intervertebral disc] Onset: 0 09-27-2019 Chronic Superficial injury; contusion (1 source) Abrasion of face; Translations: [Abrasion of other part of head, subsequent encounter] Episodic Unclassified (1 source) M54.12 - Radiculopathy, cervical region Unclassified (2 sources) Patient encounter status 07-12-2024 Unclassified (1 source) Menstrual Problem Onset: 5 Unclassified (1 source) Adenomyosis of uterus; Translations: [Adenomyosis of uterus] Onset: 5 Unclassified (1 source) Adenomyosis of the uterus; Translations: [Adenomyosis of the uterus] Onset: 5 Viral infection (9 sources) Recurrent herpes simplex labialis; Translations: [Herpesviral vesicular dermatitis] Episodic Past or Other Problems Problem Classification Problem Date Documented Da te Episodic/Chronic Administrative/social admission (20 sources) Reduced mobility; Translations: [Other reduced mobility] Onset: 2 Resolved: 5 05-06-2021 Episodic Allergic reactions (2 sources) Inflammatory dermatosis; Translations: [Dermatitis, unspecified] Onset: 5 10-08-2023 Episodic Cardiac dysrhythmias (20 sources) Palpitations; Translations: [Palpitations] Onset: 2 Resolved: 5 03-04-2021 Episodic Nonspecific chest pain (20 sources) Chest pain; Translations: [Chest pain, unspecified] Onset: 2 Resolved: 5 03-04-2021 Episodic Other aftercare (1 source) Encounter for surgical aftercare following surgery on the digestive system; Translations: [Encounter for surgical aftercare following surgery of digestive system] Onset: 4 Episodic Other connective tissue disease (20 sources) Enthesopathy of ankle AND/OR tarsus; Translations: [Other enthesopathy of unspecified foot and ankle] Onset: 5 05-12-2014 Episodic Other connective tissue disease (20 sources) Plantar fasciitis; Translations: [Plantar fascial fibromatosis] Onset: 5 Resolved: 5 02-04-2021 Episodic Other gastrointestinal disorders (20 sources) History of gastroesophageal reflux disease; Translations: [Personal history of other diseases of the digestive system] Onset: 2 Resolved: 5 05-06-2021 Episodic Other gastrointestinal disorders (20 sources) History of bypass of stomach; Translations: [Bariatric surgery status] Onset: 5 Episodic Other gastrointestinal disorders (1 source) Bariatric surgery status; Translations: [History of gastric bypass] Onset: 5 Episodic Other inflammatory condition of skin (1 source) Erythema intertrigo; Translations: [Intertrigo] Onset: 5 Episodic Other lower respiratory disease (20 sources) Dyspnea; Translations: [Shortness of breath] Onset: 2 Resolved: 5 03-04-2021 Episodic Other nervous system disorders (1 source) Other acute postprocedural pain; Translations: [Acute postoperative pain] Onset: 5 Episodic Other nervous system disorders (1 source) Personal history of other diseases of the nervous system and sense organs; Translations: [History of migraine] Onset: 4 Episodic Other nervous system disorders (1 source) Paresthesia of skin; Translations: [Paresthesia of skin] Onset: 4 Episodic Other non-traumatic joint disorders (20 sources) Pain in lower limb; Translations: [Pain in unspecified knee] Onset: 6 Resolved: 9 09-16-2018 Episodic Other nutritional; endocrine; and metabolic disorders (20 sources) Severe obesity; Translations: [Morbid (severe) obesity due to excess calories] Onset: 9 Resolved: 5 Chronic Other nutritional; endocrine; and metabolic disorders (20 sources) Morbid obesity; Translations: [Morbid (severe) obesity due to excess calories] Onset: 8 Resolved: 5 05-06-2021 Chronic Other nutritional; endocrine; and metabolic disorders (20 sources) Obesity caused by energy imbalance; Translations: [Morbid (severe) obesity due to excess calories] Onset: 8 Resolved: 9 03-19-2018 Chronic Other skin disorders (1 source) Rash and other nonspecific skin eruption; Translations: [Rash] Onset: 5 Episodic Residual codes; unclassified (1 source) Disorientation, unspecified; Translations: [Confusion] Onset: 4 Episodic Spondylosis; intervertebral disc disorders; other back problems (20 sources) Cervical radiculopathy; Translations: [Radiculopathy, cervical region] Onset: 0 2019 Episodic Sprains and strains (20 sources) Lumbar sprain; Translations: [Sprain of ligaments of lumbar spine, initial encounter] Onset: 5 Resolved: 5 01-19-2015 Episodic Syncope (9 sources) Near syncope; Translations: [Syncope and collapse] Onset: 4 12-16-2019 Episodic Unclassified (1 source) Problem Results Test Name Value Interpretation Reference Range Facility Magnesiumon 08-30-2024 Magnesium [Mass/Vol] 2.3 mg/dL High 1.5-2.2 [facility] Comment on above: Performed By: #### B TSPAT, L400.7600, L501.5200 #### [facility] [address] [place], [place], [id number] ,Urineon 08-30-2024 Beta HCG ( test) Ql (U) [facility] Comment on above: Result Comment: SAMUEL DN'T FIND URINE IN LAB- BUT TEST FOR SURGERY NEEDS DONE DAY OF SURGERY- WILL SEND EMAIL Performed By: #### B TSPAT, L400.7600, L501.5200 #### [facility] [address] [place], [address] INTERNAL QC OK? [facility] Comment on above: Result Comment: SAMUEL DN'T FIND URINE IN LAB- BUT TEST FOR SURGERY NEEDS DONE DAY OF SURGERY- WILL SEND EMAIL Performed By: #### B TSPAT, L400.7600, L501.5200 #### [facility] [address] [place], [place], [id number] RECORD KIT LOT# Normal [facility] Comment on above: Result Comment: COUL DN'T FIND URINE IN LAB- BUT TEST FOR SURGERY NEEDS DONE DAY OF SURGERY- WILL SEND EMAIL Performed By: #### B TSPAT, L400.7600, L501.5200 #### [facility] [address] [place], [address] Type AND Screen - PAT ONLYon 08-30-2024 Ab SCREEN GEL Negative [facility] Comment on above: Order Comment: Reaso n for Laboratory Test PREOP [id number] No N N S HYSTERECTOMY Performed By: #### B TSPAT, L400.7600, L501.5200 #### [facility] [address] [place], [address] MR/PAT.ANEon 08-25-2024 MR/PAT.ANE [facility] Medical Records Department [address] [place] [address] PAT - Anesthesia 08/25/24 1154 MR#: [id number] Acct: [id number] Name: RAUL CHONG DIANNA Rep #: [id number] : 1980 43 From: Vince Salter MD PCP: Dr. Maira Escamilla MD Status:PRE [facility] Y Race: C [place] [facility] Pre-Assessment Diagnosis/Proposed Procedure Planned Operative Procedure(s): (B) Hysterectomy TLH, bilateral salpingectomy, ERAS Anesthesia History Anesthesia History - banking analyst: Anesthesia History - banking analyst Hx Hospitalization Yes: 08/2023 HEART 08/25/24 11:24 PALPITATIONS Any Problems With Anesthesia No 08/25/24 11:24 Cholinesterase deficiency No 08/25/24 11:24 You/Your Family Experience No 08/25/24 11:24 fever (hyperthermia) with Relationship Recent Exposure to Contagious Disease Does patient have nerve No 08/25/24 11:24 stimulator Patient instructed to have device shut off --Does patient have Pacemaker or ICD? When Was Last Pacemaker Check QUESTION #4 FULL TEXT: You/Your Family Experience fever (hyperthermia) with Anesthesia Last Oral Intake Last Oral intake: Last Oral Intake NPO since Meds taken in AM with sips of water? Meds patient instructed to take am of surgery PONV PONV - banking analyst: PONV - banking analyst Female Yes 08/25/24 11:24 HX of Motion Sickness No 08/25/24 11:24 HX of N/V After Surgery No 08/25/24 11:24 Non-Smoker No 08/25/24 11:24 Duration of Surgery greater Yes 08/25/24 11:24 than 60 minutes Number of Risk Factors 2 08/25/24 11:24 PONV Score Moderate Risk 08/25/24 11:24 Height Weight Height Weight: Anesthesia: Height Weight Height 5 ft 8 in 06/02/24 14:39 Respiratory Assessment Respiratory Assessment - banking analyst: Respiratory Tract Infection Hx - banking analyst Hx Respiratory Tract Infection No 08/25/24 11:24 STOP Sleep Apnea STOP Sleep Apnea - banking analyst: STOP Sleep Apnea - banking analyst Hx Hypertension No 08/25/24 11:24 Hx Sleep Apnea No 08/25/24 11:24 CPAP BIPAP Do you snore loudly (louder No 08/25/24 11:24 than talking or can be heard Do you often feel tired/ No 08/25/24 11:24 fatigued/ sleepy during daytime? Has anyone observed you stop No 08/25/24 11:24 breathing during sleep? STOP Results Negative 08/25/24 11:24 QUESTION #5 FULL TEXT : Do you snore loudly (louder than talking or can be heard through closed doors)? Tobacco Use History Tobacco Use History - banking analyst: Tobacco Use History - banking analyst Tobacco Use Smoking Status Current every day smoker 08/25/24 11:24 Hx Tobacco Use No 08/25/24 11:24 Years Smoking Packs Smoked per Day Smoking Cessation Date was within the last 15 years Hx Smoking Cessation Date Hx Smoking Cessation No 08/25/24 11:24 Counseling Hematologic Medial History Hematologic Hx - banking analyst: Hematologic Medical Hx - brand recorder Hx of Blood Transfusion No 08/25/24 11:24 Hx of Transfusion in last 3 No 08/25/24 11:24 Months Date of Last Transfusion (if within last 3 months) Ever experience any problems No 08/25/24 11:24 with transfusion(s)? Specify any problems Hx of Preganancy in last 3 N/A 08/25/24 11:24 Months Nurse Filling Out Transfusion NBUCHER 08/25/24 11:24 Questions: Date: 08/25/24 08/25/24 11:24 Time: 1108/25/24 11:24 Patient unable to answer at this time (ie. confused, unrespo /Reproduction History /Reproductive History - banking analyst: /Reproductive Hx- banking analyst Hx Now No 08/25/24 11:24 Gestational Age (in weeks): EDC: Hx Hx Para Hx Section SAB No 08/25/24 11:24 [facility] Medical History (Updated 08/25/24 @ 11:32 by Cris Fernandez) Wears contact lenses Anxiety History of steroid therapy Low iron Restless legs Migraine headache Electronic cigarette use History of echocardiogram History of stress test Tachycardia Bradycardia Migraine GERD (gastroesophageal reflux disease) Arthritis GERD (gastroesophageal reflux disease) Osteoarthritis Home Medications ???Medication ???Instructions ???Recorded ???Last Taken ???Type albuterol sulfate 2.5 mg/3 mL 2.5 mg inhalation Q4HWA.RT PRN Sob 12/04/18 Unknown History (0.083 %) solution for nebulization /Or Wheezing pregabalin 75 mg capsule 75 mg PO DAILY nerves/pain 0 08/20/23 History cholecalciferol (vitamin D3) 50 50 mcg PO DAILY supplement 4 08/20/23 History mcg (2,000 unit) tablet (D3 DOTS) multivitamin with iron 1 tab PO DAILY supplement 08/20/23 (more content not included)... [facility] -- RAUL CHONG ([id number]) 1980 F Date Time Provider Department 08/24/24 10:10 AM BEULAH CAMPA OBGYWM During your visit today, we recorded the following information about you: Pulse Blood pressure Weight Height 70/minute 102/58 83.5 kg 1.727 m Last Period 08/06/24 Beulah Campa MD 08/24/2024 12:38 PM Signed Pre-Op History and Physical HPI: The patient is a 43 year old female presenting for pre-operative visit. She is scheduled for TLH, bilateral salpingectomy and cystoscopy, for adenomyosis, AUB, dysmenorrhea, intramural uterine fibroid and arcuate uterus on 09/01/24. Procedure discussed along with risks, benefits and complications. Other alternatives discussed for management. Consent form signed? Yes. PAST MEDICAL HISTORY Diagnosis Date Autoimmune disease (HCC) Degeneration of intervertebral disc, site unspecified Depression Migraines Mild intermittent asthma (HCC) Obesity Osteoarthritis of both knees Plantar fasciitis Psoriasis PAST SURGICAL HISTORY Procedure Laterality Date ADENOIDECTOMY PRIMARY Adenoidectomy DELIVERY ONLY , low cervical GASTRIC BYPASS HX Pt reported 2021 LAPAROSCOPY SURG CHOLECYSTECTOMY 2013 PAST SURGICAL HISTORY OF Bilateral arthoscopy to ankles, scar tissue removal and tendon lengthening REMOVAL OF EXCESSIVE SKIN Stomach TONSILLECTOMY PRIMARY/SECONDARY Tonsillectomy Current Outpatient Medications Medication Sig Dispense Refill pregabalin (LYRICA) 75 mg capsule Take 1 capsule by mouth once daily for 180 days. 30 capsule 5 valACYclovir (VALTREX) 500 mg tablet Take 4 tablets twice daily X 1 day. Then start one tablet by mouth daily thereafter. 38 tablet 4 Nebulizer Accessories kit 1 Units once daily as needed. 1 Each 0 sertraline (ZOLOFT) 50 mg tablet Take 1 tablet by mouth once daily. 30 tablet 5 calcium carbonate 400 mg (1,000 mg) chew Take 1,000 mg by mouth once daily. ferrous sulfate (IRON) 325 mg (65 mg iron) tablet Take 325 mg by mouth once daily. SUMAtriptan (IMITREX) 100 mg tablet Take 1 tablet (100 mg) by mouth as needed. START AT ONSET OF HEADACHE. MAY REPEAT DOSE AFTER 2 HOURS. 9 tablet 5 cyanocobalamin (VITAMIN B-12) 100 mcg tab Take 100 mcg by mouth once daily. ergocalciferol, vitamin D2, (VITAMIN D2 ORAL) Take by mouth. MULTIVITAMIN NO.43-IRON-FA ORAL Take by mouth. No current facility-administered medications for this visit. ALLERGIES: Gabapentin; Prednisone; Gardasil 9 (Pf) [Human Papillomav Vac,9-Elda(Pf)]; Lexapro [Escitalopram]; Tree And Shrub Pollen; and Topamax [Topiramate] PERSONAL HISTORY: Social History Tobacco Use Smoking status: Former Current packs/day: 0.00 Average packs/day: 0.3 packs/day for 24.0 years (6.0 ttl pk-yrs) Types: Cigarettes Start date: 03/19/1990 Quit date: 2014 Years since quittin.5 Smokeless tobacco: Never Tobacco comments: Quit in 2015, does vape daily Vaping Use Vaping status: current everyday user Start date: 08/10/2023 Substances: Nicotine Devices: Disposable Substance Use Topics Alcohol use: Not Currently Comment: rarely Drug use: No FAMILY HISTORY: FAMILY HISTORY Problem Relation Age of Onset Breast Cancer Mother Diabetes Maternal Grandmother Diabetes Maternal Uncle REVIEW OF SYMPTOMS: GENERAL: denies fevers or chills ENDOCRINOLOGY: has not been on steroids Cardiology : denies palpitations or chest pain Respiratory: denies SOB or cough Hematology: denies history of prolonged bleeding or easy bruising or VTE Allergy: Denies history of personal or family history of allergy to anesthesia PHYSICAL EXAMINATION: VITALS: Blood pressure 102/58, pulse 70, height 172.7 cm (5' 8), weight 83.5 kg (184 lb), last menstrual period 08/06/2024, SpO2 97%. GENERAL: The patient is well nourished, well hydrated in no acute distress. , The patient is oriented to time, place, and person. NECK: Supple. No lynphadenopathy, normal thyroid, no thyromegaly. LUNGS: Clear to auscultation bilaterally. no wheezes, rhonchi or rales HEART: Regular rate and rhythm, Normal heart sounds, and No murmurs or gallops Pelvic US 07/21/24: The contour of the uterus and the endometrial cavity were evaluated with 3-D imaging. Findings are suggestive of arcuate uterus. The uterus is anteverted and measures 112 mm x 44 mm x 73 mm. A anteverted uterus seen that measures 112 mm x 44 mm x 73 mm. The myometrium is heterogeneous, asymmetrically thickened, and with cystic lakes and is suggestive of adenomyosis. The endometrial thickness is 10.5 mm. There is a left lateral anterior wall intramural fibroid that measures 18 mm x 20 mm x 23 mm. The right ovary measures 24 mm x 24 mm x 12 mm. The left ovary measures 49 mm x 29 mm x 24 mm. There is a left simple paraovarian/paratubal cyst that measures 7.0 mm x 9.7 m (more content not included)... [facility] HISTORY PHYSICALon HISTORY PHYSICAL HNO ID: [id number] Author: BEULAH CAMPA MD Service: ? Author Type: Physician Type: H&P Filed: 08/24/2024 12:38 Note Text: Pre-Op History and Physical HPI: The patient is a 43 year old female presenting for pre-operative visit. She is scheduled for TLH, bilateral salpingectomy and cystoscopy, for adenomyosis, AUB, dysmenorrhea, intramural uterine fibroid and arcuate uterus on 09/01/24. Procedure discussed along with risks, benefits and complications. Other alternatives discussed for management. Consent form signed? Yes. PAST MEDICAL HISTORY Diagnosis Date Autoimmune disease (HCC) Degeneration of intervertebral disc, site unspecified Depression Migraines Mild intermittent asthma (HCC) Obesity Osteoarthritis of both knees Plantar fasciitis Psoriasis PAST SURGICAL HISTORY Procedure Laterality Date ADENOIDECTOMY PRIMARY Adenoidectomy DELIVERY ONLY , low cervical GASTRIC BYPASS HX Pt reported 2021 LAPAROSCOPY SURG CHOLECYSTECTOMY 2013 PAST SURGICAL HISTORY OF Bilateral arthoscopy to ankles, scar tissue removal and tendon lengthening REMOVAL OF EXCESSIVE SKIN Stomach TONSILLECTOMY PRIMARY/SECONDARY Tonsillectomy Current Outpatient Medications Medication Sig Dispense Refill pregabalin (LYRICA) 75 mg capsule Take 1 capsule by mouth once daily for 180 days. 30 capsule 5 valACYclovir (VALTREX) 500 mg tablet Take 4 tablets twice daily X 1 day. Then start one tablet by mouth daily thereafter. 38 tablet 4 Nebulizer Accessories kit 1 Units once daily as needed. 1 Each 0 sertraline (ZOLOFT) 50 mg tablet Take 1 tablet by mouth once daily. 30 tablet 5 calcium carbonate 400 mg (1,000 mg) chew Take 1,000 mg by mouth once daily. ferrous sulfate (IRON) 325 mg (65 mg iron) tablet Take 325 mg by mouth once daily. SUMAtriptan (IMITREX) 100 mg tablet Take 1 tablet (100 mg) by mouth as needed. START AT ONSET OF HEADACHE. MAY REPEAT DOSE AFTER 2 HOURS. 9 tablet 5 cyanocobalamin (VITAMIN B-12) 100 mcg tab Take 100 mcg by mouth once daily. ergocalciferol, vitamin D2, (VITAMIN D2 ORAL) Take by mouth. MULTIVITAMIN NO.43-IRON-FA ORAL Take by mouth. No current facility-administered medications for this visit. ALLERGIES: Gabapentin; Prednisone; Gardasil 9 (Pf) [Human Papillomav Vac,9-Elda(Pf)]; Lexapro [Escitalopram]; Tree And Shrub Pollen; and Topamax [Topiramate] PERSONAL HISTORY: Social History Tobacco Use Smoking status: Former Current packs/day: 0.00 Average packs/day: 0.3 packs/day for 24.0 years (6.0 ttl pk-yrs) Types: Cigarettes Start date: 03/19/1990 Quit date: 2014 Years since quittin.5 Smokeless tobacco: Never Tobacco comments: Quit in 2014, does vape daily Vaping Use Vaping status: current everyday user Start date: 08/10/2023 Substances: Nicotine Devices: Disposable Substance Use Topics Alcohol use: Not Currently Comment: rarely Drug use: No FAMILY HISTORY: FAMILY HISTORY Problem Relation Age of Onset Breast Cancer Mother Diabetes Maternal Grandmother Diabetes Maternal Uncle REVIEW OF SYMPTOMS: GENERAL: denies fevers or chills ENDOCRINOLOGY: has not been on steroids Cardiology : denies palpitations or chest pain Respiratory: denies SOB or cough Hematology: denies history of prolonged bleeding or easy bruising or VTE Allergy: Denies history of personal or family history of allergy to anesthesia PHYSICAL EXAMINATION: VITALS: Blood pressure 102/58, pulse 70, height 172.7 cm (5' 8), weight 83.5 kg (184 lb), last menstrual period 08/06/2024, SpO2 97%. GENERAL: The patient is well nourished, well hydrated in no acute distress. , The patient is oriented to time, place, and person. NECK: Supple. No lynphadenopathy, normal thyroid, no thyromegaly. LUNGS: Clear to auscultation bilaterally. no wheezes, rhonchi or rales HEART: Regular rate and rhythm, Normal heart sounds, and No murmurs or gallops Pelvic US 07/21/24: The contour of the uterus and the endometrial cavity were evaluated with 3-D imaging. Findings are suggestive of arcuate uterus. The uterus is anteverted and measures 112 mm x 44 mm x 73 mm. A anteverted uterus seen that measures 112 mm x 44 mm x 73 mm. The myometrium is heterogeneous, asymmetrically thickened, and with cystic lakes and is suggestive of adenomyosis. The endometrial thickness is 10.5 mm. There is a left lateral anterior wall intramural fibroid that measures 18 mm x 20 mm x 23 mm. The right ovary measures 24 mm x 24 mm x 12 mm. The left ovary measures 49 mm x 29 mm x 24 mm. There is a left simple paraovarian/paratubal cyst that measures 7.0 mm x 9.7 mm x 6.5 mm. There is no free fluid visualized. Technique: Three dimensional imaging was created on a dedicated stand-alone 3D workstation with images created and archived, and supervised and reviewed by the interpreting physician utilizing images from a US Scan performed on 07/21/24. Duplex scan was per (more content not included)... [facility] Absolute lymphocyte countOrd ered By: Carlos Dockery on 08-16-2024 Lymphocytes Auto (Unsp spec) [#/Vol] 0.32 10*3/uL Low 0.83-4.51 [facility] Absolute neutrophil countOrd ered By: Carlos Dockery on 08-16-2024 Neutrophils (Bld) [#/Vol] 6.1 10*3/uL 2.0-7.7 [facility] Anion gap in Serum or Plasma Ordered By: Carlos Dockery on 08-16-2024 Anion gap [Moles/Vol] 8 mmol/L 5-15 [facility] Automated lymphocyte count a s percentage of total leukocytesOrdered By: Carlos Dockery on 08-16-2024 Lymphocytes/100 WBC Auto (Unsp spec) 4.7 % Low 19-41 [facility] BUN/creatinine ratioOrdered By: Carlos Dockery on 08-16-2024 Urea nitrogen/Creatinine [Mass ratio] 14.1 mg/mg - [facility] Basic Metabolic Profile (BMP )on 08-16-2024 BUN/CRE 14.1 RATIO Normal - [facility] Comment on above: Performed By: #### L 700.6800, L500.2500, L100.0100 #### [facility] [place], [address] Calcium [Mass/Vol] 8.4 mg/dL Normal 7.6-11.0 [facility] Comment on above: Performed By: #### L 700.6800, L500.2500, L100.0100 #### [facility] [address] [place], [address] Chloride [Moles/Vol] 102 mmol/L Normal 98-108 [facility] Comment on above: Performed By: #### L 700.6800, L500.2500, L100.0100 #### [facility] [address] [place], [address] CO2 [Moles/Vol] 25.8 mmol/L Normal 21.0-32.0 [facility] Comment on above: Performed By: #### L 700.6800, L500.2500, L100.0100 #### [facility] [address] [place], [address] Creatinine [Mass/Vol] 0.55 mg/dL Low 0.70-1.20 [facility] Comment on above: Performed By: #### L 700.6800, L500.2500, L100.0100 #### [facility] [address] [place], [address] ECRCL 149.23 ml/min Normal 50-250 [facility] Comment on above: Performed By: #### L 700.6800, L500.2500, L100.0100 #### [facility] [address] [place], [address] GAP 8 Normal 5-15 [facility] Comment on above: Performed By: #### L 700.6800, L500.2500, L100.0100 #### [facility] [address] [place], [address] GFR/1.73 sq M.predicted among non-blacks MDRD (S/P/Bld) [Vol rate/Area] 116 mL/min/{1.73_m2} Normal >60 [facility] Comment on above: Result Comment: mL/m in/1.73m2 CKD-EPI Creatinine Equation (2020) Performed By: #### L 700.6800, L500.2500, L100.0100 #### [facility] [address] [place], [address] Glucose [Mass/Vol] 97 mg/dL Normal 70-99 [facility] Comment on above: Performed By: #### L 700.6800, L500.2500, L100.0100 #### [facility] [address] [place], [address] Potassium [Moles/Vol] 4.0 mmol/L Normal 3.3-5.1 [facility] Comment on above: Performed By: #### L 700.6800, L500.2500, L100.0100 #### [facility] [address] [place], [address] Sodium [Moles/Vol] 136 mmol/L Normal 133-145 [facility] Comment on above: Performed By: #### L 700.6800, L500.2500, L100.0100 #### [facility] [address] [place], [address] Urea nitrogen [Mass/Vol] 8 mg/dL Normal 4-19 [facility] Comment on above: Performed By: #### L 700.6800, L500.2500, L100.0100 #### [facility] [address] [place], [address] Basophil percentageOrdered B y: Carlos Dockery on 08-16-2024 Basophils/100 WBC (Bld) 0.3 % 0-1 [facility] Bilirubin Test strip Ql (U)O rdered By: Carlos Dockery on 08-16-2024 Bilirubin Ql (U) Negative Negative [facility] CBC W/Diff, Automatedon Absolute Lymph 0.32 X10 3/uL Low 0.83-4.51 [facility] Comment on above: Performed By: #### L 700.6800, L500.2500, L100.0100 #### [facility] [address] [place], [address] Absolute Neut 6.1 X10 3/uL Normal 2.0-7.7 [facility] Comment on above: Performed By: #### L 700.6800, L500.2500, L100.0100 #### [facility] [address] [place], [address] Basophils/100 WBC (Bld) 0.3 % Normal 0-1 [facility] Comment on above: Performed By: #### L 700.6800, L500.2500, L100.0100 #### [facility] [address] [place], [address] Eosinophils/100 WBC (Bld) 0.1 % Normal 0-5 [facility] Comment on above: Performed By: #### L 700.6800, L500.2500, L100.0100 #### [facility] [address] [place], [address] Erythrocyte distribution width (RBC) [Ratio] 13.1 % Normal 11.6-14.6 [facility] Comment on above: Performed By: #### L 700.6800, L500.2500, L100.0100 #### [facility] [address] [place], [address] Hematocrit (Bld) [Volume fraction] 35.8 % Low 37-47 [facility] Comment on above: Performed By: #### L 700.6800, L500.2500, L100.0100 #### [facility] [address] [place], [address] Hemoglobin (Bld) [Mass/Vol] 11.9 g/dL Low 12.0-15.0 [facility] Comment on above: Performed By: #### L 700.6800, L500.2500, L100.0100 #### [facility] [address] [place], [address] IG% 0.300 Normal 0.0-0.9 [facility] Comment on above: Result Comment: IG% - Immature Granulocytes (promyelocytes, myelocytes and metamyelocytes) > 1% indicates that a LEFT SHIFT is Present. Performed By: #### L 700.6800, L500.2500, L100.0100 #### [facility] [address] [place], [address] Lymphocytes/100 WBC (Bld) 4.7 % Low 19-41 [facility] Comment on above: Performed By: #### L 700.6800, L500.2500, L100.0100 #### [facility] [address] [place], [address] MCH (RBC) [Entitic mass] 28.5 pg Normal 27.0-32.0 [facility] Comment on above: Performed By: #### L 700.6800, L500.2500, L100.0100 #### [facility] [address] [place], [address] MCHC (RBC) [Mass/Vol] 33.2 g/dL Normal 32-36 [facility] Comment on above: Performed By: #### L 700.6800, L500.2500, L100.0100 #### [facility] [address] [place], [address] MCV (RBC) [Entitic vol] 85.9 fL Normal 81-99 [facility] Comment on above: Performed By: #### L 700.6800, L500.2500, L100.0100 #### [facility] [address] [place], [address] Monocytes/100 WBC (Bld) 5.4 % Normal 0-10 [facility] Comment on above: Performed By: #### L 700.6800, L500.2500, L100.0100 #### [facility] [address] [place], [address] Neutrophils/100 WBC (Bld) 89.2 % High 47-70 [facility] Comment on above: Performed By: #### L 700.6800, L500.2500, L100.0100 #### [facility] [address] [place], [address] Nucleated RBC (Bld) [#/Vol] 0 10*3/uL Normal 0-5 [facility] Comment on above: Performed By: #### L 700.6800, L500.2500, L100.0100 #### [facility] [address] [place], [address] Platelet mean volume (Bld) [Entitic vol] 9.8 fL Normal 6.2-12.0 [facility] Comment on above: Performed By: #### L 700.6800, L500.2500, L100.0100 #### [facility] [address] [place], [address] Platelets (Bld) [#/Vol] 207 10*3/uL Normal 150-450 [facility] Comment on above: Performed By: #### L 700.6800, L500.2500, L100.0100 #### [facility] [address] [place], [address] RBC (Bld) [#/Vol] 4.17 10*6/uL Low 4.2-5.4 [facility] Comment on above: Performed By: #### L 700.6800, L500.2500, L100.0100 #### [facility] [address] [place], [address] RDW SD 41.1 fl Normal 35.1-43.9 [facility] Comment on above: Performed By: #### L 700.6800, L500.2500, L100.0100 #### [facility] [address] [place], [address] WBC (Bld) [#/Vol] 6.9 10*3/uL Normal 4.4-11.0 [facility] Comment on above: Performed By: #### L 700.6800, L500.2500, L100.0100 #### [facility] [address] [place], [address] Carbon dioxide, total [Moles /volume] in Central venous bloodOrdered By: Carlos Dockery on 08-16-2024 CO2 [Moles/Vol] 25.8 mmol/L 21.0-32.0 [facility] Chest 1 View (Portable)on Chest 1 View (Portable) [facility] Imaging Services [address] [place] [address] Chest 1 View (Portable) MR#: [id number] Acct: [id number] Name: RAUL FLEMING DIANNA Rep #: [id number] : 1980 F 43 From: Hussein Ruiz MD PCP: Dr. Maira Escamilla MD Status: REG ER Study: Chest 1 View (Portable) Date of Exam: 08/16/24 Exam# [id number] Ordering Dr: Carlos Dockery MD EXAM: XR Chest, 1 View CLINICAL INDICATION: FEVER TECHNIQUE: Frontal view of the chest. COMPARISON: No relevant prior studies available. FINDINGS: LUNGS AND PLEURAL SPACES: Unremarkable. No consolidation. No pneumothorax. HEART: Unremarkable. No cardiomegaly. MEDIASTINUM: Unremarkable. Normal mediastinal contour. BONES/JOINTS: Unremarkable. No acute fracture. RAD/Chest 1 View (Portable) IMPRESSION: No acute cardiopulmonary process. [facility] CC: Dr. Carlos Dockery MD; Dr. Maira Escamilla MD [employer]works [employer] Supervisor: Signed [facility] Chloride assayOrdered By: Dallas Dockery on 08-16-2024 Chloride [Moles/Vol] 102 mmol/L 98-108 [facility] Emergency Department Summary on 08-16-2024 Emergency Department Summary [facility] Medical Records Department [address] [place] [address] Emergency Department Summary 08/16/24 MR#: [id number] Acct: [id number] Name: RAUL FLEMING DIANNA Rep #: [id number] : 1980 43 From: Carlos Dockery MD PCP: Dr. Maira Escamilla MD Status:REG ER Location: ED HPI History of Present Illness Chief Complaint: General Illness Narrative Narrative: 43-year-old female presents with fever, headaches, and bodyaches that began yesterday. She states she woke up at 10:00 yesterday feeling ill. Throughout the night, she experienced nausea, had fever, took Tylenol, then ended up taking a leftover Vicodin she had. She states she has mildly sore throat, but her worst symptoms are the fever, and bodyaches. She denies any sick contacts. No cough or difficulty breathing. She states she had a uterine biopsy a week or so ago, but is not having any vaginal discharge or pain. No dysuria or hematuria. [facility] Medical History Migraine GERD (gastroesophageal reflux disease) Arthritis GERD (gastroesophageal reflux disease) Osteoarthritis Home Medications ???Medication ???Instructions ???Recorded ???Last Taken ???Type albuterol sulfate 2.5 mg/3 mL 2.5 mg inhalation Q4HWA.RT PRN Sob 12/04/18 Unknown History (0.083 %) solution for nebulization /Or Wheezing pregabalin 75 mg capsule 75 mg PO DAILY nerves/pain 0 08/20/23 History cholecalciferol (vitamin D3) 50 50 mcg PO DAILY supplement 4 08/20/23 History mcg (2,000 unit) tablet (D3 DOTS) multivitamin with iron 1 tab PO DAILY supplement 08/20/23 08/20/23 History vitamin B complex (Complex B-100 1 tab PO DAILY supplement 08/20/23 08/20/23 History tablet,extended release) sumatriptan succinate 100 mg tablet 100 mg PO .COMPLEX 09/02/23 Unk nown History alprazolam 0.5 mg tablet (Xanax) 0.5 mg PO QDAY PRN anxiety 5 Unknown History sertraline 50 mg tablet 50 mg PO DAILY 03/08/24 Unknown Hi story Allergy/AdvReac Type Severity Reaction Status Date / Time gabapentin (From Neurontin) Allergy Swelling Verified 08/16/24 09:02 topiramate (From Topamax) AdvReac Mild TINGLING Verified 08/16/24 09:02 prednisone AdvReac Other Verified 08/16/24 09:02 Family History Mother Breast cancer Father Arthritis Surgical History Status post panniculectomy H/O section History of tonsillectomy History of ankle surgery History of foot surgery History of Jacob-en-Y gastric bypass Hx of cholecystectomy History of bilateral tubal ligation Social History household members: significant other Smoking Status: Current every day smoker tobacco type: e-cigarettes substance use type: does not use ROS ROS ED ROS Narrative Review of systems positive for fever, headache, sore throat worse with swallowing, body aches, multiple myalgias and arthralgias. No vomiting, no diarrhea, no abdominal pain, no vaginal discharge. EXAM Physical Exam Narrative Exam Narrative: Afebrile. Vital signs noted. Nontoxic-appearing. Ambulatory in emergency department to room. Cardiovascular examination feels a regular rate and rhythm. Lungs are clear to auscultation bilaterally. Abdomen is soft, nontender, without guarding or rebound. Positive bowel sounds. Neurological examination is nonfocal, nonlateralizing. Neck soft and supple without meningismus, full range of motion without pain. Minimal pharyngeal erythema, airway patent, no drooling or trismus. Const Vital Signs: 08/16/24 08:47 08/16/24 09:00 08/16/24 10:46 Temperature 98.0 F Temperature Source Temporal Pulse Rate 96 81 Respiratory Rate 16 18 Respiratory Effort Normal Non-Labored Respiratory Pattern Normal Blood Pressure 102/70 128/70 H Blood Pressure Mean 80 89 Pulse Ox 97 98 Oxygen Delivery Method Room Air MDM MDM MDM Narrative Medical decision making narrative: Differential diagnosis includes but not limited to pneumonia versus UTI versus viral syndrome. She is currently afebrile here. Additionally, I doubt uterine biopsy causing abscess as she is not symptomatic, having pain or discharge. She will be bolused IV fluids, and serum as well as CBC and BMP obtained. She will be treated with Toradol after showed her test be negative. I reviewed her laboratory work and she has normal white count of 6.9 with hemoglobin 11.9, hematocrit 35.8, platelet count 207. Electrolyte panel shows BUN of 8 and creatinine 0.55, no dehydration, glucose 97 with normal sodium and potassium. Urinalysis negative for infection, negative for ketones, 0-5 WBCs. I do not (more content not included)... [facility] Eosinophil percentageOrdered By: Carlos Dockery on 08-16-2024 Eosinophils/100 WBC (Bld) 0.1 % 0-5 [facility] Erythrocyte distribution wid th ratioOrdered By: Carlos Dockery on 08-16-2024 Erythrocyte distribution width (RBC) [Ratio] 13.1 % 11.6-14.6 [facility] Erythrocyte distribution wid th standard deviationOrdered By: Carlos Dockery on 08-16-2024 Erythrocyte distribution width (RBC) [Ratio] 41.1 fl 35.1-43.9 [facility] Glomerular filtration rate ( GFR) estimation/1.73 sq m using serum, plasma, or whole bOrdered By: Carlos Dockery on 08-16-2024 GFR/1.73 sq M.predicted among non-blacks MDRD (S/P/Bld) [Vol rate/Area] 116 mL/min/{1.73_m2} >60 [facility] Comment on above: mL/min/1.73m2 CKD-EP I Creatinine Equation (2020) Hematocrit Auto (Bld) [Volum e fraction]Ordered By: Carlos Dockery on 08-16-2024 Hematocrit (Bld) [Volume fraction] 35.8 % Low 37-47 [facility] Hemoglobin measurementOrdere d By: Carlos Dockery on 08-16-2024 Hemoglobin (Bld) [Mass/Vol] 11.9 g/dL Low 12.0-15.0 [facility] Immature granulocytes/100 WB C Auto (Bld)Ordered By: Carlos Dockery on 08-16-2024 Immature granulocytes/100 WBC (Bld) 0.300 % 0.0-0.9 [facility] Comment on above: IG% - Immature Granu locytes (promyelocytes, myelocytes and metamyelocytes) > 1% indicates that a LEFT SHIFT is Present. Influenza virus A and B and SARS-CoV-2 (COVID-19) and Respiratory syncytial virus RNAOrdered By: Carlos Dockery on 08-16-2024 SARS-CoV-2 (COVID-19) RNA KRISTINA+probe Ql (Unsp spec) [facility] Ketones Test strip Ql (U)Ord ered By: Carlos Dockery on 08-16-2024 Ketones Ql (U) Negative Negative [facility] M100.678on 08-16-2024 M100.678 Pending SARS-CoV-2 (COVID 19) Negative INFLUENZA A Negative INFLUENZA B Negative RSV PCR Negative Normal [facility] Comment on above: Performed By: #### B TSPAT, L400.7600, L501.5200 #### [facility] [address] [place] [address]. [place], [address] MCV (mean corpuscular volume ) determinationOrdered By: Carlos Dockery on 08-16-2024 MCV (RBC) [Entitic vol] 85.9 fL 81-99 [facility] Mean corpuscular hemoglobin (MCH) determinationOrdered By: Carlos Dockery on 08-16-2024 MCH (RBC) [Entitic mass] 28.5 pg 27.0-32.0 [facility] Mean corpuscular hemoglobin concentration (MCHC) determinationOrdered By: Carlos Dockery on 08-16-2024 MCHC (RBC) [Mass/Vol] 33.2 g/dL 32-36 [facility] Mean platelet volume determi nationOrdered By: Carlos Dockery on 08-16-2024 Platelet mean volume (Bld) [Entitic vol] 9.8 fL 6.2-12.0 [facility] Microscopic analysis of urin e for red blood cells (RBC)Ordered By: Carlos Dockery on 08-16-2024 Microscopic analysis of urine for red blood cells (RBC) 0 SEEN /hpf 0-5 [facility] Monocyte percentageOrdered B y: Carlos Dockery on 08-16-2024 Monocytes/100 WBC (Bld) 5.4 % 0-10 [facility] Mucus LM Ql (Urine sed)Order ed By: Carlos Dockery on 08-16-2024 Mucus Ql (Urine sed) 0 SEEN /hpf [facility] Neutrophil percentageOrdered By: Carlos Dockery on 08-16-2024 Neutrophils/100 WBC (Bld) 89.2 % High 47-70 [facility] Nitrite Test strip Ql (U)Ord ered By: Carlos Dockery on 08-16-2024 Nitrite Ql (U) Negative Negative [facility] Nucleated red blood cell per centageOrdered By: Carlos Dockery on 08-16-2024 Nucleated RBC/100 WBC (Bld) [Ratio] 0 % 0-5 [facility] Platelet countOrdered By: Dallas Dockery on 08-16-2024 Platelets (Bld) [#/Vol] 207 10*3/uL 150-450 [facility] Potassium measurement (mass/ volume)Ordered By: Carlos Dockery on 08-16-2024 Potassium (Unsp spec) [Mass/Vol] 4.0 mmol/L 3.3-5.1 [facility] ,Serum,hCG Quali.on 08-16-2024 HCG, SERUM QUAL Negative [facility] Comment on above: Performed By: #### L 700.6800, L500.2500, L100.0100 #### [facility] [address] [place] [address]. [place], [address] Protein Test strip Ql (U)Ord ered By: Carlos Dockery on 08-16-2024 Protein Ql (U) 15 mg/dl High Negative [facility] RBC Auto (Bld) [#/Vol]Ordere d By: Carlos Dockery on 08-16-2024 RBC (Bld) [#/Vol] 4.17 10*6/uL Low 4.2-5.4 [facility] Serum beta-hCG test, qualita tiveOrdered By: Carlos Dockery on 08-16-2024 Beta HCG ( test) Ql Negative [facility] Serum creatinine measurement (mass/volume)Ordered By: Carlos Dockery on 08-16-2024 Creatinine [Mass/Vol] 0.55 mg/dL Low 0.70-1.20 [facility] Serum glucose measurement (m ass/volume)Ordered By: Carlos Dockery on 08-16-2024 Glucose [Mass/Vol] 97 mg/dL 70-99 [facility] Serum or plasma calcium hsayna urement (mass/volume)Ordered By: Carlos oDckery on 08-16-2024 Calcium [Mass/Vol] 8.4 mg/dL 7.6-11.0 [facility] Serum or plasma urea nitroge n measurement (mass/volume)Ordered By: Carlos Dockery on 08-16-2024 Urea nitrogen [Mass/Vol] 8 mg/dL 4-19 [facility] Sodium levelOrdered By: Carlos Dockery on 08-16-2024 Sodium [Moles/Vol] 136 mmol/L 133-145 [facility] Squamous epithelial cells de tection in urine sediment by light microscopyOrdered By: Carlos Dockery on 08-16-2024 Epithelial cells.squamous LM Ql (Urine sed) 0-5 SEEN /hpf 5-10 [facility] Urinalysis, Completeon 08-16 EPI,SQUAMOUS 0-5 SEEN Normal 5-10 [facility] Comment on above: Order Comment: Reaso n for Laboratory Test PREOP 20240901 No N N S HYSTERECTOMY Performed By: #### B TSPAT, L400.7600, L501.5200 #### [facility] [address] [place], [address] WBC 0-5 SEEN Normal 0-5 [facility] Comment on above: Order Comment: Reaso n for Laboratory Test PREOP 20240901 No N N S HYSTERECTOMY Performed By: #### B TSPAT, L400.7600, L501.5200 #### [facility] [address] [place], [address] BACTERIA 0 SEEN Normal None Seen [facility] Comment on above: Order Comment: Reaso n for Laboratory Test PREOP 20240901 No N N S HYSTERECTOMY Performed By: #### B TSPAT, L400.7600, L501.5200 #### [facility] [address] [place], [address] Mucus Ql (Urine sed) 0 SEEN Normal [facility] Comment on above: Order Comment: Reaso n for Laboratory Test PREOP 20240901 No N N S HYSTERECTOMY Performed By: #### B TSPAT, L400.7600, L501.5200 #### [facility] [address] [place], [address] RBC 0 SEEN Normal 0-5 [facility] Comment on above: Order Comment: Reaso n for Laboratory Test PREOP 20240901 No N N S HYSTERECTOMY Performed By: #### B TSPAT, L400.7600, L501.5200 #### [facility] [address] [place], [address] Urine clarityOrdered By: Sendy Dockery on 08-16-2024 Clarity (U) Clear Clear [facility] Urine color determinationOrd ered By: Carlos Dockery on 08-16-2024 Color (U) Yellow Yellow [facility] Urine glucose detectionOrder ed By: Carlos Dockery on 08-16-2024 Glucose Ql (U) Normal mg/dl Normal [facility] Urine leukocyte esterase det ection by dipstickOrdered By: Carlos Dockery on 08-16-2024 Leukocyte esterase Test strip Ql (U) 25 /ul High Negative [facility] Urine pHOrdered By: Carlos luna on 08-16-2024 pH (U) 6.0 [pH] 5.0 - 8.0 [facility] Urine sediment bacteria coun t by microscopy (number/high power field)Ordered By: Carlos Dockery on 08-16-2024 Bacteria LM.HPF (Urine sed) [#/Area] 0 /[HPF] None Seen [facility] Urine specific gravity measu rementOrdered By: Carlos Dockery on 08-16-2024 Specific gravity (U) [Rel density] 1.010 1.002-1.03 0 [facility] Urine urobilinogen measureme ntOrdered By: Carlos Nahed on 08-16-2024 Urobilinogen Ql (U) Normal mg/dl Normal [facility] White blood cell (WBC) count Ordered By: Carlos Nahed on 08-16-2024 WBC (Bld) [#/Vol] 6.9 10*3/uL 4.4-11.0 [facility] White blood cell countOrdere d By: Carlos Dockery on 08-16-2024 White blood cell count 0-5 SEEN /hpf 0-5 [facility] CNOVon 08-04-2024 CNOV Office Visit (OBGYWM ) -- RAUL CHONG ([id number]) 1980 F Date Time Provider Department 08/04/24 9:30 AM MAKEDA SMITH OBALFREDAWJustin During your visit today, we recorded the following information about you: Blood pressure Weight 126/78 84.7 kg Makeda Smith APRN.CNP 08/04/2024 9:53 AM Addendum Endometrial Biopsy YOUR RECOVERY After your biopsy you may have: - Vaginal bleeding (less than a normal menstrual period) - Mild cramping Do NOT put anything in the vagina for 1 week after your endometrial biopsy. This includes sex, tampons, and douches. If you have any discomfort, you may take an over the counter pain medication (motrin, advil, ibuprofen, tylenol, etc). If this does not relieve your discomfort, contact your doctor's office for a prescription strength pain medication. It is okay to wear a sanitary pad until the discharge and spotting stops. RISKS Although problems seldom occur with endometrial biopsies, there can be some complications. You may feel faint during and shortly after the procedure as well as have some bleeding after the procedure. There is also a risk of infection after the procedure. These complications are rare and can be easily treated. You should contact you doctor is you have any of the following: - Heavy bleeding (more than your normal period) - Bleeding with clots - Severe abdominal pain - Fever (more than 100.4F) - Foul smelling vaginal discharge RESULTS We will have the results of your biopsy in 1-2 weeks. If you do not hear the results of your biopsy after 2 weeks, please contact your physicians office for the results. If you have any additional questions, please contact your doctor's office. 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 test: negative UNIVERSAL PROTOCOL / SAFETY CHECKLIST Procedure to be Performed: Endometrial Biopsy Sign In: A Moment of CARE was completed. Appropriate PPE (Personal Protective Equipment) worn by all providers involved with the procedure. Special equipment not required. Patient/Surrogate Stated/Verified: Patient name, Date of , Relevant allergies, and The intended procedure Time Out: Relevant labs, photos, and/or imaging studies have been reviewed. Intended patient and procedure match the source document(s) (e.g. consent, HANDP, associated studies [imaging, pathology]) match the intended patient and procedure. Consent obtained and matches the intended procedure. Yes. Correct side/site is not applicable. Medications required for this procedure are verified. Fire risk assessed and is not applicable. Implants: are not applicable. Sign Out: Specimens are all correctly labeled and sent. All instruments, equipment, possible retained foreign bodies are accounted for. Yes. The post-procedure plan of care has been communicated to the patient or surrogate. PROCEDURE: EXTERNAL GENITALIA: Normal in appearance without lesions VAGINA: Normal in appearance without lesions BIOPSY: Speculum placed into the vagina with excellent visualization of the cervix. Cervix cleaned with betadine. Anterior lip of cervix grasped with single toothed tenaculum. Uterus sounded to 10 cm. Pipelle inserted into the uterus without difficulty and endometrial biopsy obtained. Specimen labeled and sent to pathology. Hemostasis achieved. Procedure Summary: Patient tolerated procedure well. ASSESSMENT: heavy menses, adenomyosis PLAN: Specimens labeled and sent to Pathology. Will notify patient of results in 1-2 weeks. Post-procedure instructions reviewed and written material given to the patient. Makeda Smith APRN.SAUSAGE GRINDER Referring Provider: BEULAH CAMPA [[id number]] Allergies As of Date: 08/04/2024 Noted Allergy Reaction GABAPENTIN 04/13/2014 14 - Other: See Comments PREDNISONE 04/18/2015 1 - Mental Status Change GARDASIL 9 (PF) (HUMAN PAPILLOMAV*07/19/2024 2 - Rash 9 - Itching 14 - Other: See Comments Comments: Pain/symptoms Occurred 1 week after initial HPV 9 vaccine LEXAPRO (ESCITALOPRAM) 02/22/2024 1 - Mental Status Change Comments: Severe moustapha TREE AND SHRUB POLLEN 07/22/2023 14 - Other: See Comments TOPAMAX (TOPIRAMATE) 12/12/2016 14 - Other: See Comments Comments: anxiety Date Reviewed: 08/04/2024 Reviewed by: Anisa Harman LPN - Fully Assessed Reason for Visit: Endometrial Biopsy [7501] Primary Visit Diagnosis:Abnormal uterine bleeding (AUB) [N93.9] Other Visit Diagnosis:Adenomyosis of uterus [N80.03] Order(s):ENDOMETRIAL BIOPSY [5884924] Order #: [id number] SURGICAL PATHOLOGY [[id number]] Order #: [id number]. #:[id number] UA DIP,URINE HCG (POC) [7926646] Order #: [id number]. #:[id number] 5-LAB Prescri (more content not included)... [facility] Pathology biopsy report Mason (Tiss)on 08-04-2024 AP DISCLAIMER [facility] Comment on above: Order Comment: Speci men Type: TISSUE SPECIMEN Ordering Facility: [facility] Address: [address] [place] [address] Result Comment: Nicolasa chiu Developed Test (LDT) Disclaimer: Performance characteristics of immunohistochemical, immunofluorescent, and chromogenic in-situ hybridization tests have been determined by the performing laboratory within [facility]'s Juan Braden Pathology and Laboratory Medicine Department ([facility], [facility], [facility], [facility], [facility], [facility], or [facility]) in a manner consistent with CLIA requirements. One or more of these tests may not have been cleared or approved by the FDA. [facility] is regulated under CLIA as qualified to perform high-complexity testing. These tests are used for clinical purposes. These should not be regarded as investigational or for research. Positive and negative controls stain appropriately. Performed By: #### 6 6121-5 #### [facility] CLIA [id number] [address] [place] [address] [place] CASE REPORT [facility] Comment on above: Order Comment: Speci men Type: TISSUE SPECIMEN Ordering Facility: [facility] Address: [address] [place] [address] Result Comment: Surg [facility] Pathology Report Case: [id number] Authorizing Provider: Makeda Smith APRN.SAUSAGE GRINDER Collected: 08/04/2024 10:11 AM Ordering Location: OB/Gynecology Received: 08/04/2024 11:04 AM Pathologist: Damaris Crocker MD Specimen: Endometrium, Biopsy Performed By: #### 6 6121-5 #### [facility] CLIA [id number] [address] [place] [address] [place] CLINICAL HISTORY Adenomyosis Normal [facility] Comment on above: Order Comment: Speci men Type: TISSUE SPECIMEN Ordering Facility: [facility] Address: [address] [place] [address] Result Comment: Comm ent: AUB Performed By: #### 6 6121-5 #### [facility] CLIA [id number] [address] [place] [address] FINAL DIAGNOSIS [facility] Comment on above: Order Comment: Speci men Type: TISSUE SPECIMEN Ordering Facility: [facility] Address: [address] [place] [address] Result Comment: Endo metrium, biopsy: - Secretory endometrium at 1058 EDT Performed By: #### 6 [id number] #### [facility] CLIA [id number] [address] [place] [address] [place] FINAL PERFORMING LAB Normal [facility] Comment on above: Order Comment: Speci men Type: TISSUE SPECIMEN Ordering Facility: [facility] Address: [address] [place] [address] Result Comment: Diag nostic interpretation performed at: [facility], [address] [place] [address] CLIA# [id number] Housefellow: Patrick Smith MD Performed By: #### 6 6121-5 #### [facility] CLIA [id number] [address] [place] [address] [place] GROSS DESCRIPTION Normal [facility] Comment on above: Order Comment: Speci men Type: TISSUE SPECIMEN Ordering Facility: [facility] Address: [address] [place] [address] Result Comment: A. E ndometrium, Biopsy Received in formalin are multiple sapp-pink to red-brown soft feathery segments of tissue admixed with hemorrhagic and mucinous material aggregating to 4.2 x 2.6 x 0.3 cm. Totally submitted in two cassettes. Gross examination performed at [facility], [address] [place] [address] JT 08/04/2024 6:28 PM Performed By: #### 6 6121-5 #### [facility] CLIA [id number] [address] [place] [address] [place] UA DIP,URINE HCG (POC)on Beta HCG ( test) Ql (U) Negative Negative [facility] Comment on above: Location:[facility], [address], [place], [address] Script Developer (POCT) Internal QC OK [facility] Location:[facility], [address], [place], [address] [facility] POINT OF CARE [facility] CNOVon 08-01-2024 CNOV Office Visit (OBGYWM ) -- RAUL CHONG ([id number]) 1980 F Date Time Provider Department 08/01/24 9:20 AM BEULAH CAMPA OBALFREDAWJustin During your visit today, we recorded the following information about you: Blood pressure Weight 110/66 84.4 kg Beulah Campa MD 08/01/2024 12:07 PM Signed Obstetrics and Gynecology [place] 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 Patient/authorized volunteer patient representative agreed to proceed CHIEF COMPLAINT: The patient is a 43-year-old female with a history of significant weight loss and bariatric surgery, presenting for evaluation of heavy menstrual bleeding and perimenopausal symptoms. HPI: Menstrual Irregularities - Reports a history of easy periods since menarche at age 12, typically lasting 4-5 days with minimal cramping. - Since entering perimenopause, she has experienced significant changes in her menstrual cycle, including heavy bleeding described as a pool in the toilet and increased duration of periods to 5-6 days. - Initially, she experienced alternating light and heavy periods, but now reports consistently heavy bleeding with each cycle. - Has had to switch from using small tampons to super tampons, changing them every couple of hours due to the increased flow. - Recently started experiencing cramping, which she did not have before, and uses a heating pad for relief. - Denies intermenstrual bleeding Vapes nicotine substances. worried about weight gain. Weight Loss - Has lost 250 pounds and reports feeling great. - Underwent bariatric surgery and a subsequent abdominoplasty on March 14 to remove excess skin. Urinary and Pelvic Floor Issues - Reports a resolution of previous urinary urgency and stress incontinence since her significant weight loss. - Denies any current issues with urination, nocturia, or feeling of prolapse. - Does not report any problems with bowel movements. 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 - Has a supportive boyfriend who is a mud trucker. - Drinks coffee but reports drinking water slowly and in small amounts. - Takes vitamins daily and reports eating well. - Has two children, both delivered via , and has had a tubal ligation. 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 History Comments: Sexual Activity: Yes; Male Contraception: Tubal Ligation Menstrual Tracking History Flowsheet Row Office Visit from 07/12/2024 in OB/Gynecology Period Cycle (Days) 30 Period Duration (Days) 4 Menstrual Flow Moderate PAST MEDICAL HISTORY Diagnosis Date Autoimmune disease (HCC) Degeneration of intervertebral disc, site unspecified Depression Migraines Mild intermittent asthma (HCC) Obesity Osteoarthritis of both knees Plantar fasciitis Psoriasis PAST SURGICAL HISTORY Procedure Laterality Date ADENOIDECTOMY PRIMARY Adenoidectomy DELIVERY ONLY , low cervical GASTRIC BYPASS HX Pt reported 2021 LAPAROSCOPY SURG CHOLECYSTECTOMY 2013 PAST SURGICAL HISTORY OF Bilateral arthoscopy to ankles, scar tissue removal and tendon lengthening REMOVAL OF EXCESSIVE SKIN Stomach TONSILLECTOMY PRIMARY/SECONDARY Tonsillectomy FAMILY HISTORY Problem Relation Age of Onset Breast Cancer Mother Diabetes Maternal Grandmother Diabetes Maternal Uncle Social History Tobacco Use Smoking status: Former Current packs/day: 0.00 Average packs/day: 0.3 packs/day for 24.0 years (6.0 ttl pk-yrs) Types: Cigarettes Start date: 03/19/1990 Quit date: 2015 Years since quittin.4 Smokeless tobacco: Never Tobacco comments: Quit in 2014, does vape daily Vaping Use Vaping status: current everyday user Start date: 08/10/2023 Substances: Nicotine Devices: Disposable Substance Use Topics Alcohol use: Not Currently Comment: rarely Drug use: No Current Outpatient Medications Medication Sig pregabalin (LYRICA) 75 mg capsule Take 1 capsule by mouth once daily for 180 days. valACYclovir (VALTREX) 500 mg tablet Take 4 tablets twice daily X 1 day. Then start one tablet by mouth daily thereafter. Nebulizer Accessories kit 1 Units once daily as needed. sertraline (ZOLOFT) 50 mg tablet Take 1 tablet by mouth once daily. calcium carbonate 400 mg (1,000 mg) chew Take 1,000 mg by mouth once daily. ferrous sulfate (IRON) 325 mg (65 mg iron) tablet Take 325 mg by mouth once daily. SUMAtriptan (IMITREX) 100 mg tablet Take (more content not included)... [facility] Tele[facility] (OBGYWM) -- RAUL CHONG ([id number]) 1980 F Date Time Provider Department 07/26/24 MAKEDA SMITH OBGYWM During your visit today, we recorded the following information about you: Laurel Vizcarra RN 07/26/2024 12:36 PM Signed Patient called to inquire if RM spoke to one of the physicians regarding a hysterectomy for her. Does she just need an appointment to discuss? GEORGINA Burdick Renee, APRN.FATEMEH 07/26/2024 1:13 PM Signed Yes I just spoke with someone a little while ago and I had not had a chance to make the phone note on it yet. Dr. Henderson recommended her following up with one of them to discuss options and make medical decision from there. Makeda Smith APRN.Concha Guidry RN 07/26/2024 1:25 PM Signed Pt notified and Pt scheduled with RR on 08/01/24. Concha Akers RN Allergies As of Date: 07/26/2024 Noted Allergy Reaction GABAPENTIN 04/13/2014 14 - Other: See Comments PREDNISONE 04/18/2015 1 - Mental Status Change GARDASIL 9 (PF) (HUMAN PAPILLOMAV*07/19/2024 2 - Rash 9 - Itching 14 - Other: See Comments Comments: Pain/symptoms Occurred 1 week after initial HPV 9 vaccine LEXAPRO (ESCITALOPRAM) 02/22/2024 1 - Mental Status Change Comments: Severe moustapha TREE AND SHRUB POLLEN 07/22/2023 14 - Other: See Comments TOPAMAX (TOPIRAMATE) 12/12/2016 14 - Other: See Comments Comments: anxiety Date Reviewed: 07/14/2024 Reviewed by: Brian Garcia LPN - Fully Assessed Reason for Visit: Patient Question [5597] Prescriptions as of 07/26/2024 - pregabalin (LYRICA) 75 mg capsule Take 1 capsule by mouth once daily for 180 days. - valACYclovir (VALTREX) 500 mg tablet Take 4 tablets twice daily X 1 day. Then start one tablet by mouth daily thereafter. - Nebulizer Accessories kit 1 Units once daily as needed. - sertraline (ZOLOFT) 50 mg tablet Take 1 tablet by mouth once daily. - calcium carbonate 400 mg (1,000 mg) chew Take 1,000 mg by mouth once daily. - ferrous sulfate (IRON) 325 mg (65 mg iron) tablet Take 325 mg by mouth once daily. - SUMAtriptan (IMITREX) 100 mg tablet Take 1 tablet (100 mg) by mouth as needed. START AT ONSET OF HEADACHE. MAY REPEAT DOSE AFTER 2 HOURS. - cyanocobalamin (VITAMIN B-12) 100 mcg tab Take 100 mcg by mouth once daily. - ergocalciferol, vitamin D2, (VITAMIN D2 ORAL) Take by mouth. - MULTIVITAMIN NO.43-IRON-FA ORAL Take by mouth. Problem List As Of Date 07/26/2024 Noted Resolved Unspecified asthma(493.90) [J45.909] 06/01/2015 Pain in joint, lower leg [M25.569] 12/10/2005 09/16/2018 INTERNAL DERANGEMNT KNEE [717] 12/10/2005 Other joint derangement, not elsewhere classifi*05/12/2014 Other enthesopathy of ankle and tarsus [M77.50] 05/12/2014 Migraines [G43.909] 10/09/2014 Seasonal allergies [J30.2] 10/09/2014 Plantar fasciitis [M72.2] 10/09/2014 07/18/2024 Lumbar sprain [S33.5XXA] 01/19/2015 07/18/2024 Gastroesophageal reflux disease without esophag*06/01/2015 Morbid (severe) obesity due to excess calories *04/28/2017 03/19/2018 Morbid obesity (HCC) [E66.01] 12/07/2017 03/19/2018 Mild intermittent asthma [J45.20] Class 3 severe obesity due to excess calories w*03/19/2018 07/18/2024 Cervical radiculopathy [M54.12] 2019 SVT (supraventricular tachycardia) (HCC) [I47.1*03/04/2021 Palpitations [R00.2] 03/04/2021 07/18/2024 Chest pain [R07.9] 03/04/2021 07/18/2024 SOB (shortness of breath) [R06.02] 03/04/2021 07/18/2024 Degenerative joint disease involving multiple j*05/06/2021 Limited mobility [Z74.09] 05/06/2021 07/18/2024 History of gastroesophageal reflux (GERD) [Z87.*05/06/2021 07/18/2024 Morbid obesity due to excess calories (HCC) [E6*05/06/2021 07/18/2024 Morbid obesity (HCC) [E66.01] 10/01/2021 07/18/2024 History of gastric bypass [Z98.84] 02/18/2024 Paratubal cyst [N83.8] 07/21/2024 Adenomyosis of uterus [N80.03] 07/21/2024 Intramural uterine fibroid [D25.1] 07/21/2024 Arcuate uterus [Q51.810] 07/21/2024 Encounter Status:Closed by CONCHA AKERS on 07/26/24 [facility] CNOVon 07-22-2024 CNOV Office Visit (OBGYWM ) -- RAUL CHONG ([id number]) 1980 F Date Time Provider Department 07/22/24 10:15 AM MAKEDA SMITH OBGYWM During your visit today, we recorded the following information about you: Blood pressure Weight 102/64 80.7 kg Makeda Smith APRN.SAUSAGE GRINDER 07/22/2024 10:27 AM Signed Raul Chong is a 43 year old female who presents for problem visit redo pap SENSITIVE EXAM: The sensitive examination was discussed with the Patient or Patient's Authorized Refrigeration Repair Supervisor. As applicable, any other physician, advance practice provider, medical student, or other health professional student that will be observing or involved in the sensitive examination for educational or training purposes was discussed with the Patient or Authorized Refrigeration Repair Supervisor. The Patient or Authorized Refrigeration Repair Supervisor has agreed to proceed with the sensitive examination. (Sensitive examination includes inspection and/or palpation of the breasts, pelvis, prostate and anorectal regions). EXAM: BP 102/64 Wt 178 lb (80.7kg) LMP 07/10/2024 GENERAL: pleasant, female in no apparent distress HEENT: Normocephalic, atraumatic, mucus membranes moist, and no lesions CHEST: Normal inspiratory effort PELVIC: external genitalia normal, normal Bartholin's glands, urethra, Bug Tussle's glands, no vulvar lesions, no cervical lesions, physiologic discharge present, normal appearing perineal body and perianal region BIMANUAL: deferred NEURO: alert and oriented x3,exam grossly non-focal EXTREMITIES: normal ASSESSMENT AND PLAN: Assessment AND Plan Screening for cervical cancer Repeat Pap due to excess amount of blood and prior Pap. Makeda Smith APRN.CNP Referring Provider: MAKEDA SMITH [[id number]] Allergies As of Date: 07/22/2024 Noted Allergy Reaction GABAPENTIN 04/13/2014 14 - Other: See Comments PREDNISONE 04/18/2015 1 - Mental Status Change GARDASIL 9 (PF) (HUMAN PAPILLOMAV*07/19/2024 2 - Rash 9 - Itching 14 - Other: See Comments Comments: Pain/symptoms Occurred 1 week after initial HPV 9 vaccine LEXAPRO (ESCITALOPRAM) 02/22/2024 1 - Mental Status Change Comments: Severe moustapha TREE AND SHRUB POLLEN 07/22/2023 14 - Other: See Comments TOPAMAX (TOPIRAMATE) 12/12/2016 14 - Other: See Comments Comments: anxiety Date Reviewed: 07/14/2024 Reviewed by: Brian Garcia LPN - Fully Assessed Primary Visit Diagnosis:Screening for cervical cancer [Z12.4] Order(s):PAP TEST [TTU0091] Order #: [id number] Prescriptions as of 07/22/2024 - pregabalin (LYRICA) 75 mg capsule Take 1 capsule by mouth once daily for 180 days. - valACYclovir (VALTREX) 500 mg tablet Take 4 tablets twice daily X 1 day. Then start one tablet by mouth daily thereafter. - Nebulizer Accessories kit 1 Units once daily as needed. - sertraline (ZOLOFT) 50 mg tablet Take 1 tablet by mouth once daily. - calcium carbonate 400 mg (1,000 mg) chew Take 1,000 mg by mouth once daily. - ferrous sulfate (IRON) 325 mg (65 mg iron) tablet Take 325 mg by mouth once daily. - SUMAtriptan (IMITREX) 100 mg tablet Take 1 tablet (100 mg) by mouth as needed. START AT ONSET OF HEADACHE. MAY REPEAT DOSE AFTER 2 HOURS. - cyanocobalamin (VITAMIN B-12) 100 mcg tab Take 100 mcg by mouth once daily. - ergocalciferol, vitamin D2, (VITAMIN D2 ORAL) Take by mouth. - MULTIVITAMIN NO.43-IRON-FA ORAL Take by mouth. Problem List As Of Date 07/22/2024 Noted Resolved Unspecified asthma(493.90) [J45.909] 06/01/2015 Pain in joint, lower leg [M25.569] 12/10/2005 09/16/2018 INTERNAL DERANGEMNT KNEE [717] 12/10/2005 Other joint derangement, not elsewhere classifi*05/12/2014 Other enthesopathy of ankle and tarsus [M77.50] 05/12/2014 Migraines [G43.909] 10/09/2014 Seasonal allergies [J30.2] 10/09/2014 Plantar fasciitis [M72.2] 10/09/2014 07/18/2024 Lumbar sprain [S33.5XXA] 01/19/2015 07/18/2024 Gastroesophageal reflux disease without esophag*06/01/2015 Morbid (severe) obesity due to excess calories *04/28/2017 03/19/2018 Morbid obesity (HCC) [E66.01] 12/07/2017 03/19/2018 Mild intermittent asthma [J45.20] Class 3 severe obesity due to excess calories w*03/19/2018 07/18/2024 Cervical radiculopathy [M54.12] 2019 SVT (supraventricular tachycardia) (HCC) [I47.1*03/04/2021 Palpitations [R00.2] 03/04/2021 07/18/2024 Chest pain [R07.9] 03/04/2021 07/18/2024 SOB (shortness of breath) [R06.02] 03/04/2021 07/18/2024 Degenerative joint disease involving multiple j*05/06/2021 Limited mobility [Z74.09] 05/06/2021 07/18/2024 History of gastroesophageal reflux (GERD) [Z87.*05/06/2021 07/18/2024 Morbid obesity due to excess calories (HCC) [E6*05/06/2021 07/18/2024 Morbid obesity (HCC) [E66.01] 10/01/2021 07/18/2024 History of gastric bypass [Z98.84] 02/18/2024 Paratubal cyst [N83.8] 07/21/2024 Adenomyosis of uterus [N80.03] 07/21/2024 Intramural (more content not included)... [facility] PAP TESTon 07-22-2024 ADEQUACY [facility] Comment on above: Order Comment: Speci men Type: FLUID SPECIMEN Ordering Facility: [facility] Address: [address] [place] [address] Result Comment: Sati sfactory for interpretation. Transformation zone present Performed By: #### L [id number] #### [facility] CLIA [id number] [address] [place] [address] [place] CASE REPORT [facility] Comment on above: Order Comment: Speci men Type: FLUID SPECIMEN Ordering Facility: [facility] Address: [address] [place] [address] Result Comment: Gyne cologic Cytology Report Case: [id number] Authorizing Provider: Makeda Smith APRN.SAUSAGE GRINDER Collected: 07/22/2024 10:34 AM Ordering Location: OB/Gynecology Received: 07/22/2024 12:18 PM First Screen: [place], [place], ASCP Rescreen: Danyelle Pereira Specimen: Pap Test, ThinPrep, Cervix Performed By: #### L [id number] #### [facility] CLIA [id number] [address] [place] [address] [place] CLINICAL HISTORY, CYTOLOGY, FRUIT FARMWORKER Routine Exam [facility] Comment on above: Order Comment: Speci men Type: FLUID SPECIMEN Ordering Facility: [facility] Address: [address] [place] [address] Performed By: #### L [id number] #### [facility] CLIA [id number] [address] [place] [address] [place] FINAL PERFORMING LAB [facility] Comment on above: Order Comment: Speci men Type: FLUID SPECIMEN Ordering Facility: [facility] Address: [address] [place] [address] Result Comment: Tech nical component, classifications officer cc/cm screening performed at: [facility], [address] [place] [address] CLIA: [id number] Diagnostic interpretation performed at: [facility], [address] [place] [address] CLIA# [id number] Housefellow: Patrick Smith MD Performed By: #### L [id number] #### [facility] CLIA [id number] [address] [place] [address] STATES OF [facility] INTERPRETATION, CYTOLOGY, FRUIT FARMWORKER [facility] Comment on above: Order Comment: Speci men Type: FLUID SPECIMEN Ordering Facility: [facility] Address: [address] [place] [address] Result Comment: Nega tive for intraepithelial lesion or malignancy. at 1007 EDT Performed By: #### L [id number] #### [facility] CLIA [id number] [address] [place] [address] [place] LMP 07/10/2024 [facility] Comment on above: Order Comment: Speci men Type: FLUID SPECIMEN Ordering Facility: [facility] Address: [address] [place] [address] Performed By: #### L [id number] #### [facility] CLIA [id number] [address] [place] [address] [place] PAP DISCLAIMER COMMENT The Pap Smear is a screening test for cervical cancer. False negative results occur with all screening tests, emphasizing the need for rescreening at recommended intervals, and clinical correlation. [facility] Comment on above: Order Comment: Speci men Type: FLUID SPECIMEN Ordering Facility: [facility] Address: [address] [place] [address] Performed By: #### L [id number] #### [facility] CLIA [id number] [address] [place] [address] [place] PAP CLERICAL ASSOCIATE COMMENT This specimen has be en analyzed by the FDA-approved [employer] System, which uses digital imaging and an enhanced artificial intelligence image analysis algorithm to identify caldwell of interest on the microscopic slide, to assist the clinical data research and pathologist in evaluating cells on ThinPrep Pap tests. Following analysis, caldwell of interest on the microscopic slide selected by the algorithm are reviewed by a clinical data research. If a sample requires hierarchical review, the pathologist will review the same caldwell of interest selected by the algorithm prior to final interpretation. [facility] Comment on above: Order Comment: Speci men Type: FLUID SPECIMEN Ordering Facility: [facility] Address: [address] [place] [address] Performed By: #### L [id number] #### [facility] CLIA [id number] [address] [place] [address] [place] ARUN SCREENING W TOMOon 07-21 ARUN SCREENING W TONIO * * *Final Report* * * DATE OF EXAM: Jul 21 2024 10:48AM [id number] - ARUN SCREENING W TONIO / PROCEDURE REASON: multiple diagnoses * * * * Physician Interpretation * * * * RESULT: [place] [address] [place] [id number] #[id number] - ARUN SCREENING W TONIO HISTORY: 43 year-old patient presents for screening. Patient is asymptomatic in both breasts. Patient states no personal history of breast cancer. The patient has a family history of breast cancer. COMPARISON STUDIES: The present examination has been compared to a prior imaging study dated 03/07/2022 (mammogram). MAMMOGRAM TECHNIQUE: The study was acquired using full field digital technology and interpreted from soft copy. Digital Breast Tomosynthesis (DBT) images were obtained and used to assist in the interpretation of this examination. MAMMOGRAM FINDINGS: There are scattered areas of fibroglandular density. No suspicious masses, calcifications or other abnormalities are seen in either breast. There are no significant interval changes. IMPRESSION: There is no mammographic evidence of malignancy in either breast. Routine screening mammogram is recommended. Annual mammogram will be due in 1 year. BI-RADS Category 1: Negative RISK: Based on the Tyrer-Cuzick (TC) risk assessment model, this patient has a 11.3% lifetime risk of developing breast cancer, meaning they are at average risk for developing breast cancer. However, this is only an estimate based on available history provided on the patient's questionnaire. We encourage all patients to talk with their providers about these results, further recommendations for managing breast health, and appropriate supplemental screening options if the patient has dense breast tissue. Interpreting Radiologist: Preethi Caballero M.D. Electronically signed on: 07/22/2024 Fireworks Assembly Supervisor: FRANCISCO JAVIER Transcribe Date/Time: Jul 21 2024 10:36A Dictated by: PREETHI CABALLERO MD This examination was interpreted and the report reviewed and electronically signed by: PREETHI CABALLERO MD on Jul 22 2024 8:49AM EST [id number] [facility] [place] 07-21-2024 [facility] Radiology Study observation (narrative) [facility] CNPNon 07-19-2024 CNPN Telephone (OBGYWM) -- RAUL CHONG ([id number]) 1980 F Date Time Provider Department 07/19/24 MAKEDA SMITH OBGYWM During your visit today, we recorded the following information about you: Alannah Vale RN 07/19/2024 8:52 AM Signed Patient had HPV vaccine 07/12/24. She had no issues until last night she woke up to pain at the injection site. Hurts to lift arm and has redness/rash below the area it would have been given. Asking if it's normal to have a reaction like this after a week and what she should do? She tried tylenol and ice to her arm to help so far. Should she get the rest of the series? Please advise. GEORGINA Espinal Renee, APRN.FATEMEH 07/19/2024 10:25 AM Signed Please let the patient know that she can take Benadryl, along with ibuprofen and icing the area. Based on her reaction I would not recommend completing the series then. Makeda Smith APRN.Alannah Fischer RN 07/19/2024 11:01 AM Signed Patient notified. She is upset, she really wanted to get this vaccine. Asking if one vaccine will help prevent HPV at all even a small percentage? Can sent [employer] message with response. Alannah Vale RN Allergies As of Date: 07/19/2024 Noted Allergy Reaction GABAPENTIN 04/13/2014 14 - Other: See Comments PREDNISONE 04/18/2015 1 - Mental Status Change GARDASIL 9 (PF) (HUMAN PAPILLOMAV*07/19/2024 2 - Rash 9 - Itching 14 - Other: See Comments Comments: Pain/symptoms Occurred 1 week after initial HPV 9 vaccine LEXAPRO (ESCITALOPRAM) 02/22/2024 1 - Mental Status Change Comments: Severe moustapha TREE AND SHRUB POLLEN 07/22/2023 14 - Other: See Comments TOPAMAX (TOPIRAMATE) 12/12/2016 14 - Other: See Comments Comments: anxiety Date Reviewed: 07/14/2024 Reviewed by: Brian Garcia LPN - Fully Assessed Reason for Visit: HPV Vaccine [Other] Prescriptions as of 07/19/2024 - pregabalin (LYRICA) 75 mg capsule Take 1 capsule by mouth once daily for 180 days. - valACYclovir (VALTREX) 500 mg tablet Take 4 tablets twice daily X 1 day. Then start one tablet by mouth daily thereafter. - Nebulizer Accessories kit 1 Units once daily as needed. - sertraline (ZOLOFT) 50 mg tablet Take 1 tablet by mouth once daily. - calcium carbonate 400 mg (1,000 mg) chew Take 1,000 mg by mouth once daily. - ferrous sulfate (IRON) 325 mg (65 mg iron) tablet Take 325 mg by mouth once daily. - SUMAtriptan (IMITREX) 100 mg tablet Take 1 tablet (100 mg) by mouth as needed. START AT ONSET OF HEADACHE. MAY REPEAT DOSE AFTER 2 HOURS. - cyanocobalamin (VITAMIN B-12) 100 mcg tab Take 100 mcg by mouth once daily. - ergocalciferol, vitamin D2, (VITAMIN D2 ORAL) Take by mouth. - MULTIVITAMIN NO.43-IRON-FA ORAL Take by mouth. Problem List As Of Date 07/19/2024 Noted Resolved Unspecified asthma(493.90) [J45.909] 06/01/2015 Pain in joint, lower leg [M25.569] 12/10/2005 09/16/2018 INTERNAL DERANGEMNT KNEE [717] 12/10/2005 Other joint derangement, not elsewhere classifi*05/12/2014 Other enthesopathy of ankle and tarsus [M77.50] 05/12/2014 Migraines [G43.909] 10/09/2014 Seasonal allergies [J30.2] 10/09/2014 Plantar fasciitis [M72.2] 10/09/2014 07/18/2024 Lumbar sprain [S33.5XXA] 01/19/2015 07/18/2024 Gastroesophageal reflux disease without esophag*06/01/2015 Morbid (severe) obesity due to excess calories *04/28/2017 03/19/2018 Morbid obesity (HCC) [E66.01] 12/07/2017 03/19/2018 Mild intermittent asthma [J45.20] Class 3 severe obesity due to excess calories w*03/19/2018 07/18/2024 Cervical radiculopathy [M54.12] 2019 SVT (supraventricular tachycardia) (HCC) [I47.1*03/04/2021 Palpitations [R00.2] 03/04/2021 07/18/2024 Chest pain [R07.9] 03/04/2021 07/18/2024 SOB (shortness of breath) [R06.02] 03/04/2021 07/18/2024 Degenerative joint disease involving multiple j*05/06/2021 Limited mobility [Z74.09] 05/06/2021 07/18/2024 History of gastroesophageal reflux (GERD) [Z87.*05/06/2021 07/18/2024 Morbid obesity due to excess calories (HCC) [E6*05/06/2021 07/18/2024 Morbid obesity (HCC) [E66.01] 10/01/2021 07/18/2024 History of gastric bypass [Z98.84] 02/18/2024 Encounter Status:Closed by MAKEDA SMITH on 07/19/24 [facility] OCTAVIOOVon 07-14-2024 CNOV Office Visit (RHODA ) -- RAUL CHONG ([id number]) 1980 F Date Time Provider Department 07/14/24 1:00 PM BONNY HENRY During your visit today, we recorded the following information about you: Weight Height 81 kg 1.727 m Bonny Henry APRN.SAUSAGE GRINDER 07/14/2024 4:15 PM Signed Plastic Surgery Note CC: Consult for Panniculectomy HPI: Raul is a 43 year old female here today to discuss excess thigh skin and fat after massive weight loss. Patient is s/p Gastric bypass: laparoscopic. Date of bariatric surgery (more than 18 months): Yes Highest weight: 424 lbs Current weight: 178 lbs Weight loss of 100 lbs or more: Yes Use of pharmacotherapy for weight loss/management (Ozempic, Wegovy, Mounjaro, Phetermine): No Patients weight has been stable for 6 months. The patient does not complain of recurrent rashes, intertrigo with dermatitis occuring on the opposed surface of the skin that has not responded to conventional treatment for a period of 3 months. Treatments tried: n/a The patient does not have a history of infection. Excess thigh skin causes interference with activities of daily living: Yes Bathing: No Dressing: Yes Work: Yes Trouble with clothes fitting properly: Yes History of Abdominal Hernia: No History of Abdominal Surgery: Yes, gastric bypass History of Hypertrophic Scars/Keloids: No History of Diabetes: No History of Autoimmune Disorder: Yes, excema Hormonal Control or Hormone Replacement Therapy: No History of Bleeding/Clotting Disorders: No History of DVT/PE: No Anticoagulants/Antiplatele ts: No NICOTINE USE: Yes vapes 6 x a day x 1 year Less than 0.5 pack a day for 2 years REVIEW OF SYSTEMS GENERAL: No weight loss, malaise or fevers NECK: Negative for lumps, goiter, pain and significant neck swelling RESPIRATORY: Negative for cough, hemoptysis, wheezing, COPD, dyspnea or shortness of breath CARDIOVASCULAR: Negative for chest pain, leg swelling, hypertension, CHF or palpitations GI: No nausea, vomiting, or diarrhea SKIN: Negative for lesions, rash, and itching Objective: LMP 07/10/2024 (Exact Date) PAST MEDICAL HISTORY Diagnosis Date Autoimmune disease (HCC) Degeneration of intervertebral disc, site unspecified Depression Migraines Mild intermittent asthma (HCC) Obesity Osteoarthritis of both knees Plantar fasciitis Psoriasis PAST SURGICAL HISTORY Procedure Laterality Date ADENOIDECTOMY PRIMARY Adenoidectomy DELIVERY ONLY , low cervical GASTRIC BYPASS HX Pt reported 2021 LAPAROSCOPY SURG CHOLECYSTECTOMY 2013 PAST SURGICAL HISTORY OF Bilateral arthoscopy to ankles, scar tissue removal and tendon lengthening REMOVAL OF EXCESSIVE SKIN Stomach TONSILLECTOMY PRIMARY/SECONDARY Tonsillectomy Current Outpatient Medications Medication Sig Dispense Refill pregabalin (LYRICA) 75 mg capsule Take 1 capsule by mouth once daily for 180 days. 30 capsule 5 valACYclovir (VALTREX) 500 mg tablet Take 4 tablets twice daily X 1 day. Then start one tablet by mouth daily thereafter. 38 tablet 4 Nebulizer Accessories kit 1 Units once daily as needed. 1 Each 0 sertraline (ZOLOFT) 50 mg tablet Take 1 tablet by mouth once daily. 30 tablet 5 calcium carbonate 400 mg (1,000 mg) chew Take 1,000 mg by mouth once daily. ferrous sulfate (IRON) 325 mg (65 mg iron) tablet Take 325 mg by mouth once daily. SUMAtriptan (IMITREX) 100 mg tablet Take 1 tablet (100 mg) by mouth as needed. START AT ONSET OF HEADACHE. MAY REPEAT DOSE AFTER 2 HOURS. 9 tablet 5 cyanocobalamin (VITAMIN B-12) 100 mcg tab Take 100 mcg by mouth once daily. ergocalciferol, vitamin D2, (VITAMIN D2 ORAL) Take by mouth. MULTIVITAMIN NO.43-IRON-FA ORAL Take by mouth. No current facility-administered medications for this visit. ALLERGIES Allergen Reactions Gabapentin Other: See Comments Prednisone Mental Status Change Lexapro [Escitalopr* Mental Status Change Severe moustapha Tree And Shrub Poll* Other: See Comments Topamax [Topiramate] Other: See Comments anxiety Physical Exam: AANDOx3, NAD Loose skin thighs bilateral A/P: Raul is a 43 year old female w/ history of significant weight loss following bariatric surgery, symptomatic abdominal panniculus. Patient is a candidate for a thighplasty, could reasonably improve the physical functional impairment. Discussed increased risk for infection, bleeding, wound healing complications, anesthesia complications with higher BMI. Encouraged patient to continue with weight loss for safety and best aesthetic outcome. The risks, benefits and options were discussed with the ptatient The risks included but not limited to pain, bleeding, infection, heavy scarring, damage to surrounding structures, fluid collections, asymmetry, and need for further procedures. Photographs have been taken (more content not included)... [facility] CNOVon 07-12-2024 CNOV Office Visit (OBGYWM ) -- MOI CHONGANDRA Blanton ([id number]) 1980 F Date Time Provider Department 07/12/24 9:00 AM MAKEDA SMITH OBGYWM During your visit today, we recorded the following information about you: Blood pressure Weight Last Period 118/64 82.5 kg 07/10/24 Makeda Smith APRN.SAUSAGE GRINDER 07/12/2024 10:12 AM Signed Patient declined client business managerMarivel Edouard is a 43 year old who presents for an annual gynecologic exam with complaints, irregular bleeding. LMP: 07/10/2024 Menses: cycles every 28-30 days and 4-5 days of flow Sexually active: Yes Contraception: Tubal Ligation 2008 HPV vaccine: No Last pap smear: 08/08/2019, normal HPV:negative 08/08/2019 History of abnormal pap: Yes Colposcopy: Yes: Pt reported 2011 Last mammogram: 03/07/2022 normal 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 LMP: 07/10/2024 (Exact Date), Having periods Age at Menarche: 12 Age at First : Age at Menopause: Fiber Designer History Comments: Sexual Activity: Yes; Male Contraception: Tubal Ligation Menstrual Tracking History Flowsheet Row Office Visit from 07/12/2024 in OB/Gynecology Period Cycle (Days) 30 Period Duration (Days) 4 Menstrual Flow Moderate PAST MEDICAL HISTORY Diagnosis Date Autoimmune disease (HCC) Degeneration of intervertebral disc, site unspecified Depression Migraines Mild intermittent asthma (HCC) Obesity Osteoarthritis of both knees Plantar fasciitis Psoriasis PAST SURGICAL HISTORY Procedure Laterality Date ADENOIDECTOMY PRIMARY Adenoidectomy DELIVERY ONLY , low cervical GASTRIC BYPASS HX Pt reported 2021 LAPAROSCOPY SURG CHOLECYSTECTOMY 2013 PAST SURGICAL HISTORY OF Bilateral arthoscopy to ankles, scar tissue removal and tendon lengthening REMOVAL OF EXCESSIVE SKIN Stomach TONSILLECTOMY PRIMARY/SECONDARY Tonsillectomy FAMILY HISTORY Problem Relation Age of Onset Breast Cancer Mother Diabetes Maternal Grandmother Diabetes Maternal Uncle SOCIAL HISTORY Social History Tobacco Use Smoking status: Former Current packs/day: 0.00 Average packs/day: 0.3 packs/day for 24.0 years (6.0 ttl pk-yrs) Types: Cigarettes Start date: 03/19/1990 Quit date: 2014 Years since quittin.4 Smokeless tobacco: Never Tobacco comments: Quit in 2015, does vape daily Vaping Use Vaping status: current everyday user Start date: 08/10/2023 Substances: Nicotine Devices: Disposable Substance Use Topics Alcohol use: Not Currently Comment: rarely Drug use: No REVIEW OF SYSTEMS Abdomen: No abdominal pain, nausea, vomiting, diarrhea, or constipation. No bloating, early satiety, indigestion, or increased flatulence. Bladder: No dysuria, gross hematuria, urinary frequency, urinary urgency, or incontinence. Breast: No breast lumps, nipple d/c, overlying skin changes, redness or skin retraction. Allergies and current medication updated:Yes SENSITIVE EXAM: The sensitive examination was discussed with the Patient or Patient's Authorized Refrigeration Repair Supervisor. As applicable, any other physician, advance practice provider, medical student, or other health professional student that will be observing or involved in the sensitive examination for educational or training purposes was discussed with the Patient or Authorized Refrigeration Repair Supervisor. The Patient or Authorized Refrigeration Repair Supervisor has agreed to proceed with the sensitive examination. (Sensitive examination includes inspection and/or palpation of the breasts, pelvis, prostate and anorectal regions). EXAM: BP 118/64 Wt 181 lb 12.8 oz (82.5kg) LMP 07/10/2024 GENERAL: pleasant, female in no apparent distress HEENT: Normocephalic, atraumatic, mucus membranes moist, and no lesions DERMATOLOGY: Normal, without lesions, non-icteric, and non-hirsute BREAST: soft, non-tender, symmetric, no dominant mass, normal nipple-areolar complex, no lymphadenopathy, and no nipple discharge CHEST: Normal inspiratory effort ABDOMEN: soft, non-tender, and no masses PELVIC: external genitalia normal, normal Bartholin's glands, urethra, Bug Tussle's glands, no vulvar lesions, no cervical lesions, physiologic discharge present, normal appearing perineal body and perianal region BIMANUAL: uterus normal size, shape and consistency, no adnexal masses, and non-tender RECTOVAGINAL: deferred. NEURO: alert and oriented x3,exam grossly non-focal EXTREMITIES: normal ASSESSMENT/PLAN: 1. Encounter for gynecological examination (general) (routine) without abnormal findings - ICD9: V72.31, ICD10: Z01.419 (primary diagnosis) - Completed pap test and breast exam - Encouraged monthly BSE - Follow up for annual exam in one year. - PAP TEST - ARUN SCREENING W TONIO 2. Screening for cervical cancer - ICD9: V76.2, ICD10: Z12.4 - PAP TEST 3. Encou (more content not included)... [facility] HIGH RISK HUMAN PAPILLOMA MARBELLA (HPV), PCR FOR DETECTION AND GENOTYPINGon 07-12-2024 HPV 16 Ag Ql (Unsp spec) Not detected Normal [facility] Comment on above: Order Comment: Speci men Type: FLUID SPECIMENOrdering Facility: [facility] Address: [address] [place] [address] Performed By: #### H PVHRT ####[facility] [id number] [place] [address] [place] HPV 18 Ag Ql (Unsp spec) Not detected Normal Not detected [facility] Comment on above: Order Comment: Speci men Type: FLUID SPECIMENOrdering Facility: [facility] Address: [address] [place] [address] Performed By: #### H PVHRT ####[facility] [id number] [address] [place] HPV 31+33+35+39+45+51+52+5 6+58+59+66+68 DNA KRISTINA+probe Ql (Cvx) Not detected Normal Not detected [facility] Comment on above: Order Comment: Speci men Type: FLUID SPECIMENOrdering Facility: [facility] Address: [address] [place] [address] Result Comment: High Risk HPV Other Type includes HPV types 31, 33, 35, 39, 45, 51, 52, 56, 58, 59, 66 and 68. Performed By: #### H PVHRT ####[facility] [id number] [address] [address] [place] PAP TESTon 07-12-2024 ADEQUACY [facility] Comment on above: Order Comment: Speci men Type: FLUID SPECIMEN Ordering Facility: [facility] Address: [address] [place] [address] Result Comment: Unsa tisfactory for evaluation. Transformation zone present Excess blood Performed By: #### L [id number] #### [facility] CLIA [id number] [address] [place] [address] [place] CASE REPORT [facility] Comment on above: Order Comment: Speci men Type: FLUID SPECIMEN Ordering Facility: [facility] Address: [address] [place] [address] Result Comment: Gyne cologic Cytology Report Case: [id number] Authorizing Provider: Makeda Smith APRN.SAUSAGE GRINDER Collected: 07/12/2024 10:05 AM Ordering Location: OB/Gynecology Received: 07/12/2024 12:37 PM First Screen: Gmitro, Miah, CT, ASCP Rescreen: Deeds, Timothy, CT, ASCP Specimen: Pap Test, ThinPrep, Cervix Performed By: #### L [id number] #### [facility] CLIA [id number] [address] [place] [address] [place] CLINICAL HISTORY, CYTOLOGY, FRUIT FARMWORKER Routine Exam [facility] Comment on above: Order Comment: Speci men Type: FLUID SPECIMEN Ordering Facility: [facility] Address: [address] [place] [address] Performed By: #### L [id number] #### [facility] CLIA [id number] [address] [place], [place] [id number] [place] FINAL PERFORMING LAB [facility] Comment on above: Order Comment: Speci men Type: FLUID SPECIMEN Ordering Facility: [facility] Address: [address] [place] [address] Result Comment: Tech nical component, classifications officer cc/cm screening performed at: [facility], [address] [place] [address] CLIA: [id number] Diagnostic interpretation performed at: [facility], [address] [place] [id number] CLIA# [id number] Housefellow: Patrick Smith MD Performed By: #### L [id number] #### [facility] CLIA [id number] [address] [place], [place] [id number] [place] GROSS DESCRIPTION A. Cervix Normal [facility] Comment on above: Order Comment: Speci men Type: FLUID SPECIMEN Ordering Facility: [facility] Address: [address] [place] [address] Result Comment: Glac ial Acetic Acid added. Performed By: #### L [id number] #### [facility] CLIA [id number] [address] [place] [address] [place] INTERPRETATION, CYTOLOGY, FRUIT FARMWORKER [facility] Comment on above: Order Comment: Speci men Type: FLUID SPECIMEN Ordering Facility: [facility] Address: [address] [place] [address] Result Comment: Unab le to perform interpretation due to unsatisfactory specimen. at 1407 EDT Performed By: #### L [id number] #### [facility] CLIA [id number] [address] [place] [address] [place] LMP 07/10/2024 [facility] Comment on above: Order Comment: Speci men Type: FLUID SPECIMEN Ordering Facility: [facility] Address: [address] [place] [address] Performed By: #### L [id number] #### [facility] CLIA [id number] [address] [place], [place] [id number] [place] PAP DISCLAIMER COMMENT The Pap Smear is a screening test for cervical cancer. False negative results occur with all screening tests, emphasizing the need for rescreening at recommended intervals, and clinical correlation. [facility] Comment on above: Order Comment: Naa covarrubias Type: FLUID SPECIMEN Ordering Facility: [facility] Address: [address] [place] [address] Performed By: #### L [id number] #### [facility] CLIA [id number] [address] [place] [address] [place] PAP CLERICAL ASSOCIATE COMMENT This specimen has be en analyzed by the FDA-approved [employer] System, which uses digital imaging and an enhanced artificial intelligence image analysis algorithm to identify caldwell of interest on the microscopic slide, to assist the clinical data research and pathologist in evaluating cells on ThinPrep Pap tests. Following analysis, caldwell of interest on the microscopic slide selected by the algorithm are reviewed by a clinical data research. If a sample requires hierarchical review, the pathologist will review the same caldwell of interest selected by the algorithm prior to final interpretation. [facility] Comment on above: Order Comment: Naa covarrubias Type: FLUID SPECIMEN Ordering Facility: [facility] Address: [address] [place] [address] Performed By: #### L [id number] #### [facility] CLIA [id number] [address] [place] [address] [place] CNPDana 06-21-2024 CNPN Telephone (RHODA) -- RAUL CHONG ([id number]) 1980 F Date Time Provider Department 06/21/24 JAE STERLING During your visit today, we recorded the following information about you: Jessica Desir 06/21/2024 12:40 PM Signed Patient calling to see if prior authorization was sent to insurance [employer] for her surgery with Dr. Sterling. She can be reached at [phone]. Ladi Tierney 06/29/2024 1:29 PM Signed Patient requesting return call to advise on insurance auth for surgery. See below. Please return call to [phone] Rachna Lynn 08/01/2024 9:08 AM Signed Patient calling for an update on status of authorization for procedure. Please call to advise. Alexia Brian RN 08/01/2024 9:16 AM Signed Case message sent to material scheduler for an update Allergies As of Date: 06/21/2024 Noted Allergy Reaction GABAPENTIN 04/13/2014 14 - Other: See Comments PREDNISONE 04/18/2015 1 - Mental Status Change LEXAPRO (ESCITALOPRAM) 02/22/2024 1 - Mental Status Change Comments: Severe moustapha TREE AND SHRUB POLLEN 07/22/2023 14 - Other: See Comments TOPAMAX (TOPIRAMATE) 12/12/2016 14 - Other: See Comments Comments: anxiety Date Reviewed: 06/09/2024 Reviewed by: Brian Garcia LPN - Fully Assessed Reason for Visit: Insurance Authorization [[id number]] Prescriptions as of 08/01/2024 - pregabalin (LYRICA) 75 mg capsule Take 1 capsule by mouth once daily for 180 days. - valACYclovir (VALTREX) 500 mg tablet Take 4 tablets twice daily X 1 day. Then start one tablet by mouth daily thereafter. - Nebulizer Accessories kit 1 Units once daily as needed. - sertraline (ZOLOFT) 50 mg tablet Take 1 tablet by mouth once daily. - calcium carbonate 400 mg (1,000 mg) chew Take 1,000 mg by mouth once daily. - ferrous sulfate (IRON) 325 mg (65 mg iron) tablet Take 325 mg by mouth once daily. - SUMAtriptan (IMITREX) 100 mg tablet Take 1 tablet (100 mg) by mouth as needed. START AT ONSET OF HEADACHE. MAY REPEAT DOSE AFTER 2 HOURS. - cyanocobalamin (VITAMIN B-12) 100 mcg tab Take 100 mcg by mouth once daily. - ergocalciferol, vitamin D2, (VITAMIN D2 ORAL) Take by mouth. - MULTIVITAMIN NO.43-IRON-FA ORAL Take by mouth. Problem List As Of Date 06/21/2024 Noted Resolved Unspecified asthma(493.90) [J45.909] 06/01/2015 Pain [...] radiculopathy [M54.12] 2019 SVT (supraventricular tachycardia) (HCC) [I47.1*03/04/2021 Palpitations [R00.2] 03/04/2021 Chest pain [R07.9] 03/04/2021 SOB (shortness of breath) [R06.02] 03/04/2021 Degenerative joint disease involving multiple j*05/06/2021 Limited mobility [Z74.09] 05/06/2021 History of gastroesophageal reflux (GERD) [Z87.*05/06/2021 Morbid obesity due to excess calories (HCC) [E6*05/06/2021 Morbid obesity (HCC) [E66.01] 10/01/2021 History of gastric bypass [Z98.84] 02/18/2024 Encounter Status:Closed by ALEXIA BRIAN on 08/01/24 [facility] CNCOon 06-09-2024 CNCO Letter Text [facility] CNOVon 06-09-2024 CNOV Office Visit (PLASST ) -- RAUL CHONG ([id number]) 1980 F Date Time Provider Department 06/09/24 2:20 PM BONNY HENRY During your visit today, we recorded the following information about you: Bonny Henry APRN.SAUSAGE GRINDER 06/09/2024 2:48 PM Signed Plastic Surgery Post Op Note CC: post op HPI: Raul Chong is a 43 year old female who presents s/p Date of Surgery: 03/14/24 Surgery: Panniculectomy Time Postop: 12 weeks Pt presents for post-op visit. She reports she is feeling better. She was started on bactrim on 06/01/24. She reports a partial thickness opening on the left abdominal incision. Pt reports the wound has closed up. Denies fever, chills. No concerns Surgical pathology reviewed Component FINAL DIAGNOSIS Soft tissue, abdominal pannus, resection: - Skin with abundant subcutaneous adipose tissue. PAST MEDICAL HISTORY Diagnosis Date Autoimmune disease (HCC) Degeneration of intervertebral disc, site unspecified Depression Migraines Mild intermittent asthma (HCC) Obesity Osteoarthritis of both knees Plantar fasciitis Psoriasis PAST SURGICAL HISTORY Procedure Laterality Date ADENOIDECTOMY PRIMARY Adenoidectomy DELIVERY ONLY , low cervical LAPAROSCOPY SURG CHOLECYSTECTOMY 2013 PAST SURGICAL HISTORY OF Bilateral arthoscopy to ankles, scar tissue removal and tendon lengthening TONSILLECTOMY PRIMARY/SECONDARY Tonsillectomy Current Outpatient Medications on File Prior to Visit Medication Sig traMADol (ULTRAM) 50 mg tablet Take 1 tablet by mouth two times a day as needed for pain for up to 7 days. acetaminophen (TYLENOL) 500 mg tablet Take 2 tablets by mouth every 6 hours for 5 days, THEN 1-2 tablets every 6 hours as needed for pain for up to 10 days. senna (SENOKOT) 8.6 mg tab Take 1 tablet by mouth two times a day as needed for constipation for up to 15 days. Nebulizer Accessories kit 1 Units once daily as needed. albuterol (PROVENTIL) 2.5 mg /3 mL (0.083 %) nebulizer solution Use 3 mL via nebulizer every 4 hours as needed for wheezing/shortness of breath. Use over 5-15minutes. sertraline (ZOLOFT) 50 mg tablet Take 1 tablet by mouth once daily. hydrOXYzine HCl (ATARAX) 25 mg tablet Take 1 tablet by mouth three times a day as needed for itching/rash. pregabalin (LYRICA) 75 mg capsule Take 1 capsule by mouth once daily for 180 days. calcium carbonate 400 mg (1,000 mg) chew Take 1,000 mg by mouth once daily. ferrous sulfate (IRON) 325 mg (65 mg iron) tablet Take 325 mg by mouth once daily. valACYclovir (VALTREX) 500 mg tablet Take 4 tablets twice daily X 1 day. Then start one tablet by mouth daily thereafter. SUMAtriptan (IMITREX) 100 mg tablet Take 1 tablet (100 mg) by mouth as needed. START AT ONSET OF HEADACHE. MAY REPEAT DOSE AFTER 2 HOURS. cyanocobalamin (VITAMIN B-12) 100 mcg tab Take 100 mcg by mouth once daily. ergocalciferol, vitamin D2, (VITAMIN D2 ORAL) Take by mouth. MULTIVITAMIN NO.43-IRON-FA ORAL Take by mouth. albuterol (PROVENTIL) 2.5 mg /3 mL (0.083 %) nebulizer solution Use 3 mL via nebulizer every 4 hours as needed for wheezing/shortness of breath. No current facility-administered medications on file prior to visit. LMP 05/15/2024 (Approximate) PE Alert and oriented in NAD on room air abdominal incisions c/d/I, well-approximated, healing Left lateral abdominal partial thickness wound healed ASSESSMENT/PLAN: Postoperative State Doing well -finish Augmentin -gentamicin ointment to wound three times daily and cover with gauze for 2 more weeks -activity restrictions discussed, okay to resume activity/exercise slowly, easily progress -okay for water submersion (pools/ baths/ hot tub) when there are no open areas or scabs along incision and you are fully healed -okay for silicone sheets/scar massage if indicated -okay for skin/scar moisturizer, rec Aquaphor/Eucerin/Cerave -okay to sleep on your sides If experiencing wound complications or have any questions or concerns during business hours call [phone] or after hours (after 5 pm or on the weekend) call [phone] and ask for the plastic surgery resident / fellow carbon paper coating supervisor for further instructions. If you have increasing swelling or bruising, particularly one side greater than the other. If swelling and redness persists after a few days. If you have increased redness along the incision. If you have severe or increased pain not relieved by medication. If you have an oral temperature of 100.4 degrees or higher. If you have any yellow or greenish drainage from the incisions or notice a foul smell. If you have bleeding from the incisions that is difficult to control with light pressure If you have new chest pain, shortness of breathe or difficulty breathing Return to clinic in 3 months Bonny Henry APRN.SAUSAGE GRINDER June 09 (more content not included)... Normal [facility] Culture, Blood (WB)on 2024 CUB Blood cultures x2, f rom two different sites No growth in 5 days. Normal [facility] Comment on above: Performed By: #### M 200.1000 #### [facility] [place], [address] Bacteria Wnd Culton 06-04-19 25 Bacteria identified Cx Nom (Wound) CULTURE, WOUND: No growth GRAM STAIN: No organisms seen No Polymorphonuclear Leukocytes Normal [facility] Comment on above: Performed By: #### 6 [id number] #### [facility] CLIA [id number] [address] [place] [address] [place] CNOVon 06-03-2024 CNOV Office Visit ([facility] ) -- RAUL CHONG ([id number]) 1980 F Date Time Provider Department 06/03/24 1:[address] [facility] During your visit today, we recorded the following information about you: Temperature Pulse Blood pressure Weight 99.1 degrees 77/minute 111/73 82.8 kg Height Last Period 1.727 m 05/15/24 Bonny Henry APRN.FATEMEH 06/03/2024 1:35 PM Signed Plastic Surgery Post Op Note CC: post op HPI: Raul Cohng is a 43 year old female who presents s/p Date of Surgery: 03/14/24 Surgery: Panniculectomy Time Postop: 11 weeks Pt presents for post-op visit. She reports she developed a fever of 100. 7 lasting 3 days. She was started on bactrim on 06/01/24. She reports a partial thickness opening on the left abdominal incision. No concerns Surgical pathology reviewed Component FINAL DIAGNOSIS Soft tissue, abdominal pannus, resection: - Skin with abundant subcutaneous adipose tissue. PAST MEDICAL HISTORY Diagnosis Date Autoimmune disease (HCC) Degeneration of intervertebral disc, site unspecified Depression Migraines Mild intermittent asthma Obesity Osteoarthritis of both knees Plantar fasciitis Psoriasis PAST SURGICAL HISTORY Procedure Laterality Date ADENOIDECTOMY PRIMARY Adenoidectomy DELIVERY ONLY , low cervical LAPAROSCOPY SURG CHOLECYSTECTOMY 2013 PAST SURGICAL HISTORY OF Bilateral arthoscopy to ankles, scar tissue removal and tendon lengthening TONSILLECTOMY PRIMARY/SECONDARY Tonsillectomy Current Outpatient Medications on File Prior to Visit Medication Sig traMADol (ULTRAM) 50 mg tablet Take 1 tablet by mouth two times a day as needed for pain for up to 7 days. acetaminophen (TYLENOL) 500 mg tablet Take 2 tablets by mouth every 6 hours for 5 days, THEN 1-2 tablets every 6 hours as needed for pain for up to 10 days. senna (SENOKOT) 8.6 mg tab Take 1 tablet by mouth two times a day as needed for constipation for up to 15 days. Nebulizer Accessories kit 1 Units once daily as needed. albuterol (PROVENTIL) 2.5 mg /3 mL (0.083 %) nebulizer solution Use 3 mL via nebulizer every 4 hours as needed for wheezing/shortness of breath. Use over 5-15minutes. sertraline (ZOLOFT) 50 mg tablet Take 1 tablet by mouth once daily. hydrOXYzine HCl (ATARAX) 25 mg tablet Take 1 tablet by mouth three times a day as needed for itching/rash. pregabalin (LYRICA) 75 mg capsule Take 1 capsule by mouth once daily for 180 days. calcium carbonate 400 mg (1,000 mg) chew Take 1,000 mg by mouth once daily. ferrous sulfate (IRON) 325 mg (65 mg iron) tablet Take 325 mg by mouth once daily. valACYclovir (VALTREX) 500 mg tablet Take 4 tablets twice daily X 1 day. Then start one tablet by mouth daily thereafter. SUMAtriptan (IMITREX) 100 mg tablet Take 1 tablet (100 mg) by mouth as needed. START AT ONSET OF HEADACHE. MAY REPEAT DOSE AFTER 2 HOURS. cyanocobalamin (VITAMIN B-12) 100 mcg tab Take 100 mcg by mouth once daily. ergocalciferol, vitamin D2, (VITAMIN D2 ORAL) Take by mouth. MULTIVITAMIN NO.43-IRON-FA ORAL Take by mouth. albuterol (PROVENTIL) 2.5 mg /3 mL (0.083 %) nebulizer solution Use 3 mL via nebulizer every 4 hours as needed for wheezing/shortness of breath. No current facility-administered medications on file prior to visit. LMP 02/23/2024 (Approximate) PE Alert and oriented in NAD on room air abdominal incisions c/d/I, well-approximated, healing Left lateral abdominal incision with 0.5 x 0.2 partial thickness wound with yellow drainage noted ASSESSMENT/PLAN: Postoperative State Doing well -stop bactrim -Augmentin twice daily -gentamicin ointment to wound three times daily and cover with gauze -activity restrictions discussed, okay to resume activity/exercise slowly, easily progress -okay for water submersion (pools/ baths/ hot tub) when there are no open areas or scabs along incision and you are fully healed -okay for silicone sheets/scar massage if indicated -okay for skin/scar moisturizer, rec Aquaphor/Eucerin/Cerave -okay to sleep on your sides If experiencing wound complications or have any questions or concerns during business hours call [phone] or after hours (after 5 pm or on the weekend) call [phone] and ask for the plastic surgery resident / fellow carbon paper coating supervisor for further instructions. If you have increasing swelling or bruising, particularly one side greater than the other. If swelling and redness persists after a few days. If you have increased redness along the incision. If you have severe or increased pain not relieved by medication. If you have an oral temperature of 100.4 degrees or higher. If you have any yellow or greenish drainage from the incisions or notice a foul smell. If you have bleeding from the incisions that is difficult to control with light pressure If you have (more content not included)... Normal [facility] Anion gap in Serum or Plasma Ordered By: Carlos Dockery on 06-02-2024 Anion gap [Moles/Vol] 9 mmol/L 5-15 [facility] BUN/creatinine ratioOrdered By: Carlos Dockery on 06-02-2024 Urea nitrogen/Creatinine [Mass ratio] 17.7 mg/mg 10-20 [facility] Bilirubin, totalOrdered By: Carlos Dockery on 06-02-2024 Bilirubin [Mass/Vol] 0.23 mg/dL 0.00-1.30 [facility] Blood cultureOrdered By: Sendy Dockery on 06-02-2024 Bacteria identified Cx Nom (Bld) No growth in 5 days. [facility] CBC-Complete Blood Cnt No Di ffon 06-02-2024 Erythrocyte distribution width (RBC) [Ratio] 12.5 % Normal 11.6-14.6 [facility] Comment on above: Performed By: #### B TSPAT, L400.7600, L501.5200 #### [facility] [address] [place], [address] Hematocrit (Bld) [Volume fraction] 35.2 % Low 37-47 [facility] Comment on above: Performed By: #### B TSPAT, L400.7600, L501.5200 #### [facility] [address] [place], [address] Hemoglobin (Bld) [Mass/Vol] 11.7 g/dL Low 12.0-15.0 [facility] Comment on above: Performed By: #### B TSPAT, L400.7600, L501.5200 #### [facility] [address] [place], [address] MCH (RBC) [Entitic mass] 29.5 pg Normal 27.0-32.0 [facility] Comment on above: Performed By: #### B TSPAT, L400.7600, L501.5200 #### [facility] [address] [place], [address] MCHC (RBC) [Mass/Vol] 33.2 g/dL Normal 32-36 [facility] Comment on above: Performed By: #### B TSPAT, L400.7600, L501.5200 #### [facility] [address] [place], [address] MCV (RBC) [Entitic vol] 88.9 fL Normal 81-99 [facility] Comment on above: Performed By: #### B TSPAT, L400.7600, L501.5200 #### [facility] [address] [place], [address] Platelet mean volume (Bld) [Entitic vol] 9.9 fL Normal 6.2-12.0 [facility] Comment on above: Performed By: #### B TSPAT, L400.7600, L501.5200 #### [facility] [address] [place], [address] Platelets (Bld) [#/Vol] 224 10*3/uL Normal 150-450 [facility] Comment on above: Performed By: #### B TSPAT, L400.7600, L501.5200 #### [facility] [address] [place], [address] RBC (Bld) [#/Vol] 3.96 10*6/uL Low 4.2-5.4 [facility] Comment on above: Performed By: #### B TSPAT, L400.7600, L501.5200 #### [facility] [address] [place], [address] RDW SD 41.1 fl Normal 35.1-43.9 [facility] Comment on above: Performed By: #### B TSPAT, L400.7600, L501.5200 #### [facility] [address] [place], [address] WBC (Bld) [#/Vol] 4.6 10*3/uL Normal 4.4-11.0 [facility] Comment on above: Performed By: #### B TSPAT, L400.7600, L501.5200 #### [facility] [address] [place], [address] Carbon dioxide, total [Moles /volume] in Central venous bloodOrdered By: Carlos Dockery on 06-02-2024 CO2 [Moles/Vol] 23.8 mmol/L 21.0-32.0 [facility] Chloride assayOrdered By: Dallas Dockery on 06-02-2024 Chloride [Moles/Vol] 105 mmol/L 98-108 [facility] Comprehensive Metabolic Prof ilon 06-02-2024 Albumin [Mass/Vol] 3.9 g/dL Normal 3.5-5.0 [facility] Comment on above: Performed By: #### B TSPAT, L400.7600, L501.5200 #### [facility] [address] [place], [address] Albumin/Globulin [Mass ratio] 1.6 {ratio} Normal 0.9-2.4 [facility] Comment on above: Performed By: #### B TSPAT, L400.7600, L501.5200 #### [facility] [address] [place], [address] ALK PHOS 81 U/L Normal 35-104 [facility] Comment on above: Performed By: #### B TSPAT, L400.7600, L501.5200 #### [facility] [address] [place], [address] ALT [Catalytic activity/Vol] 28 U/L Normal <=34 [facility] Comment on above: Performed By: #### B TSPAT, L400.7600, L501.5200 #### [facility] [address] [place], [address] AST [Catalytic activity/Vol] 28 U/L Normal <=31 [facility] Comment on above: Performed By: #### B TSPAT, L400.7600, L501.5200 #### [facility] [address] [place], [address] Bilirubin [Mass/Vol] 0.23 mg/dL Normal 0.00-1.30 [facility] Comment on above: Performed By: #### B TSPAT, L400.7600, L501.5200 #### [facility] [address] [place], [address] BUN/CRE 17.7 RATIO Normal 10-20 [facility] Comment on above: Performed By: #### B TSPAT, L400.7600, L501.5200 #### [facility] [address] [place], [address] Calcium [Mass/Vol] 8.7 mg/dL Normal 7.6-11.0 [facility] Comment on above: Performed By: #### B TSPAT, L400.7600, L501.5200 #### [facility] [address] [place], [address] Chloride [Moles/Vol] 105 mmol/L Normal 98-108 [facility] Comment on above: Performed By: #### B TSPAT, L400.7600, L501.5200 #### [facility] [address] [place], [address] CO2 [Moles/Vol] 23.8 mmol/L Normal 21.0-32.0 [facility] Comment on above: Performed By: #### B TSPAT, L400.7600, L501.5200 #### [facility] [address] [place], [address] Creatinine [Mass/Vol] 0.65 mg/dL Low 0.70-1.20 [facility] Comment on above: Performed By: #### B TSPAT, L400.7600, L501.5200 #### [facility] [address] [place], [address] ECRCL 125.10 ml/min Normal 50-250 [facility] Comment on above: Performed By: #### B TSPAT, L400.7600, L501.5200 #### [facility] [address] [place], [address] GAP 9 Normal 5-15 [facility] Comment on above: Performed By: #### B TSPAT, L400.7600, L501.5200 #### [facility] [address] [place], [address] GFR/1.73 sq M.predicted among non-blacks MDRD (S/P/Bld) [Vol rate/Area] 111 mL/min/{1.73_m2} Normal >60 [facility] Comment on above: Result Comment: mL/m in/1.73m2 CKD-EPI Creatinine Equation (2020) Performed By: #### B TSPAT, L400.7600, L501.5200 #### [facility] [address] [place], [address] Globulin (S) [Mass/Vol] 2.4 g/dL Normal 2.2-4.2 [facility] Comment on above: Performed By: #### B TSPAT, L400.7600, L501.5200 #### [facility] [address] [place], [address] Glucose [Mass/Vol] 85 mg/dL Normal 70-99 [facility] Comment on above: Performed By: #### B TSPAT, L400.7600, L501.5200 #### [facility] [address] [place], [address] Potassium [Moles/Vol] 3.9 mmol/L Normal 3.3-5.1 [facility] Comment on above: Performed By: #### B TSPAT, L400.7600, L501.5200 #### [facility] [address] [place], [address] Sodium [Moles/Vol] 137 mmol/L Normal 133-145 [facility] Comment on above: Performed By: #### B TSPAT, L400.7600, L501.5200 #### [facility] [address] [place], [address] T PROT 6.4 g/dL Normal 5.9-8.4 [facility] Comment on above: Performed By: #### B TSPAT, L400.7600, L501.5200 #### [facility] [address] [place], [address] Urea nitrogen [Mass/Vol] 12 mg/dL Normal 4-19 [facility] Comment on above: Performed By: #### B TSPAT, L400.7600, L501.5200 #### [facility] [address] [place], [address] Emergency Department Summary on 06-02-2024 Emergency Department Summary [facility] Medical Records Department [address] [place] [address] Emergency Department Summary 06/02/24 MR#: [id number] Acct: [id number] Name: RAUL FLEMING DIANNA Rep #: [id number] : 1980 43 From: Carlos Dockery MD PCP: Dr. Maira Escamilla MD Status:REG ER Location: ED HPI History of Present Illness Chief Complaint: Wound Narrative Narrative: 43-year-old female states that she had plastic surgery on her pannus in March, approximately 3 months ago. This was performed by Dr. Sterling with the [facility] out of [place]. Since then, she has had areas of wound dehiscence and abscess development and spitting stitches. She has been on antibiotics intermittently. Most recently, an area on the left side of her abdomen that had dehisced previously started opening up a little more and draining yellow fluid. She had her plastic surgeon/nurse practitioner call her in antibiotics and started Bactrim, but today she spiked a fever as high as 101 ???F. She felt shaky as well. She called them and she was told to come to the emergency department for evaluation. She has an appointment with them tomorrow however. She was concerned because while she has been dealing with wound abscesses and infections, she spiked a fever today. [facility] Medical History (Updated 06/02/24 @ 16:09 by Carlos Dockery MD) Migraine GERD (gastroesophageal reflux disease) Arthritis GERD (gastroesophageal reflux disease) Osteoarthritis Home Medications ???Medication ???Instructions ???Recorded ???Last Taken ???Type albuterol sulfate 2.5 mg/3 mL 2.5 mg inhalation Q4HWA.RT PRN Sob 12/04/18 Unknown History (0.083 %) solution for nebulization /Or Wheezing pregabalin 75 mg capsule 75 mg PO DAILY nerves/pain 0 08/20/23 History cholecalciferol (vitamin D3) 50 50 mcg PO DAILY supplement 4 08/20/23 History mcg (2,000 unit) tablet (D3 DOTS) multivitamin with iron 1 tab PO DAILY supplement 08/20/23 08/20/23 History valacyclovir 500 mg tablet 500 mg PO DAILY HSV 08/20/2308/18 History vitamin B complex (Complex B-100 1 tab PO DAILY supplement 08/20/23 08/20/23 History tablet,extended release) sumatriptan succinate 100 mg tablet 100 mg PO .COMPLEX 09/02/23 Unk nown History alprazolam 0.5 mg tablet (Xanax) 0.5 mg PO QDAY 03/08/24 Unknown Hi story sertraline 50 mg tablet mg PO DAILY 03/08/24 Unknown Histo ry Allergy/AdvReac Type Severity Reaction Status Date / Time gabapentin (From Neurontin) Allergy Swelling Verified 06/02/24 14:40 topiramate (From Topamax) AdvReac Mild TINGLING Verified 06/02/24 14:40 prednisone AdvReac Other Verified 06/02/24 14:40 Family History Mother Breast cancer Father Arthritis Surgical History (Updated 06/02/24 @ 15:41 by Anny Coburn) Status post panniculectomy H/O section History of tonsillectomy History of ankle surgery History of foot surgery History of Jacob-en-Y gastric bypass Hx of cholecystectomy History of bilateral tubal ligation Social History household members: significant other Smoking Status: Current every day smoker tobacco type: e-cigarettes substance use type: does not use ROS ROS ED ROS Narrative Positive fever of 101 ???F today. Feeling shaky. Positive purulent drainage from left side of wound with previous dehiscence. No nausea or vomiting. No exacerbating or alleviating factors. EXAM Physical Exam Narrative Exam Narrative: Afebrile. Vital signs noted. Nontoxic-appearing. Cardiovascular examination reveals a regular rate and rhythm. Lungs are clear to auscultation bilaterally. Abdomen is soft, nontender, with normoactive bowel sounds. The incision appears clean, dry, and intact without surrounding erythema or fluctuance. There is an area of wound dehiscence on the left side of the surgical wound with Silvadene cream contained within it and minimal purulent drainage. Const Vital Signs: 06/02/24 14:39 06/02/24 15:40 Temperature 98.7 F 98.5 F Temperature Source Oral Oral Pulse Rate 71 88 Respiratory Rate 16 15 Blood Pressure 111/68 105/69 Blood Pressure Mean 82 81 Pulse Ox 97 97 Oxygen Delivery Method Room Air Room Air MDM MDM MDM Narrative Medical decision making narrative: Differential diagnosis includes but not limited to localized wound infection versus inflammatory changes of wound versus sepsis. I have very low suspicion for sepsis because she is not tachycardic nor is she febrile and she has normal blood pressure. I will obtain a CBC, BMP, and lactic acid. I do not feel imaging is indicated and in discussion with the patient, it is not felt that she requires CT of the abdomen pelvis to look (more content not included)... Normal [facility] Erythrocyte distribution wid th (RBC) [Ratio]Ordered By: Carlos Dockery on 06-02-2024 Erythrocyte distribution width (RBC) [Entitic vol] 41.1 fL 35.1-43.9 [facility] Erythrocyte distribution wid th ratioOrdered By: Carlos Dockery on 06-02-2024 Erythrocyte distribution width (RBC) [Ratio] 12.5 % 11.6-14.6 [facility] Erythrocyte distribution wid th standard deviationOrdered By: Carlos Dockery on 06-02-2024 Erythrocyte distribution width (RBC) [Ratio] 41.1 fl 35.1-43.9 [facility] Estimation of creatinine janel aranceOrdered By: Carlos Dockery on 06-02-2024 Estimated Creatinine Clearance Calc 125.10 ml/min 50-250 [facility] GFR/1.73 sq M.predicted michelle g non-blacks MDRD (S/P/Bld) [Vol rate/Area]Ordered By: Carlos Dockery on 06-02-2024 Estimated GFR (MDRD) Non-Af Amer 111 >60 [facility] Comment on above: mL/min/1.73m2 CKD-EP I Creatinine Equation (2020) Glomerular filtration rate ( GFR) estimation/1.73 sq m using serum, plasma, or whole bOrdered By: Carlos Dockery on 06-02-2024 GFR/1.73 sq M.predicted among non-blacks MDRD (S/P/Bld) [Vol rate/Area] 111 mL/min/{1.73_m2} >60 [facility] Comment on above: mL/min/1.73m2 CKD-EP I Creatinine Equation (2020) Hematocrit Auto (Bld) [Volum e fraction]Ordered By: Carlos Dockery on 06-02-2024 Hematocrit (Bld) [Volume fraction] 35.2 % Low 37-47 [facility] Hemoglobin measurementOrdere d By: Carlos Dockery on 06-02-2024 Hemoglobin (Bld) [Mass/Vol] 11.7 g/dL Low 12.0-15.0 [facility] - Chemistry and C hemistry - challengeOrdered By: Carlos Dockery on 06-02-2024 AST [Catalytic activity/Vol] 28 U/L <32 [facility] Lactic Acidon 06-02-2024 Lactate [Moles/Vol] mmol/L Normal 0.0-2.0 [facility] Comment on above: Order Comment: Reaso n for Laboratory Test PREOP [id number] No N N S HYSTERECTOMY Performed By: #### B TSPAT, L400.7600, L501.5200 #### [facility] [address] [place], [address] Lactic acid measurementOrder ed By: Carlos Dockery on 06-02-2024 Lactate [Moles/Vol] mmol/L 0.0-2.0 [facility] MCV (mean corpuscular volume ) determinationOrdered By: Carlos Dockery on 06-02-2024 MCV (RBC) [Entitic vol] 88.9 fL 81-99 [facility] Mean corpuscular hemoglobin (MCH) determinationOrdered By: Carlos Dockery on 06-02-2024 MCH (RBC) [Entitic mass] 29.5 pg 27.0-32.0 [facility] Mean corpuscular hemoglobin concentration (MCHC) determinationOrdered By: Carlos Dockery on 06-02-2024 MCHC (RBC) [Mass/Vol] 33.2 g/dL 32-36 [facility] Mean platelet volume determi nationOrdered By: Carlos Dockery on 06-02-2024 Platelet mean volume (Bld) [Entitic vol] 9.9 fL 6.2-12.0 [facility] Platelet countOrdered By: Dallas Dockery on 06-02-2024 Platelets (Bld) [#/Vol] 224 10*3/uL 150-450 [facility] Potassium (Unsp spec) [Mass/ Vol]Ordered By: Carlos Dockery on 06-02-2024 Potassium [Moles/Vol] 3.9 mmol/L 3.3-5.1 [facility] Potassium measurement (mass/ volume)Ordered By: Carlos Dockery on 06-02-2024 Potassium (Unsp spec) [Mass/Vol] 3.9 mmol/L 3.3-5.1 [facility] RBC Auto (Bld) [#/Vol]Ordere d By: Carlos Dockery on 06-02-2024 RBC (Bld) [#/Vol] 3.96 10*6/uL Low 4.2-5.4 [facility] Serum creatinine measurement (mass/volume)Ordered By: Carlos Dockery on 06-02-2024 Creatinine [Mass/Vol] 0.65 mg/dL Low 0.70-1.20 [facility] Serum globulin measurementOr dered By: Carlos Dockery on 06-02-2024 Globulin (S) [Mass/Vol] 2.4 g/dL 2.2-4.2 [facility] Serum glucose measurement (m ass/volume)Ordered By: Carlos Dockery on 06-02-2024 Glucose [Mass/Vol] 85 mg/dL 70-99 [facility] Serum or plasma alanine lazo otransferase (ALT) measurementOrdered By: Carlos Dockery on 06-02-2024 ALT [Catalytic activity/Vol] 28 U/L <35 [facility] Serum or plasma albumin shayna urement (mass/volume)Ordered By: Carlos Dockery on 06-02-2024 Albumin [Mass/Vol] 3.9 g/dL 3.5-5.0 [facility] Serum or plasma albumin/glob ulin mass ratioOrdered By: Carlos Dockery on 06-02-2024 Albumin/Globulin [Mass ratio] 1.6 {ratio} 0.9-2.4 [facility] Serum or plasma alkaline rojelio sphatase measurementOrdered By: Carlos Dockery on 06-02-2024 ALP [Catalytic activity/Vol] 81 U/L 35-104 [facility] Serum or plasma calcium shayna urement (mass/volume)Ordered By: Carlos Dockery on 06-02-2024 Calcium [Mass/Vol] 8.7 mg/dL 7.6-11.0 [facility] Serum or plasma urea nitroge n measurement (mass/volume)Ordered By: Carlos Dockery on 06-02-2024 Urea nitrogen [Mass/Vol] 12 mg/dL 4-19 [facility] Sodium levelOrdered By: Carlos Dockery on 06-02-2024 Sodium [Moles/Vol] 137 mmol/L 133-145 [facility] Total proteinOrdered By: Sendy Dockery on 06-02-2024 Protein [Mass/Vol] 6.4 g/dL 5.9-8.4 [facility] White blood cell (WBC) count Ordered By: Carlos Dockery on 06-02-2024 WBC (Bld) [#/Vol] 4.6 10*3/uL 4.4-11.0 [facility] CNPNon 06-01-2024 CNPN Telephone (PLASST) -- RAUL CHONG ([id number]) 1980 F Date Time Provider Department 06/01/24 JAE STERLING During your visit today, we recorded the following information about you: Kishore BowmanWolfa 06/01/2024 1:38 PM Signed Patient advising that she spiked a fever - 100.7. Patient is heading in to work. It is okay to leave advice/instructions on voice mail or to send a message via [employer]. Ladi Tierney 06/02/2024 12:10 PM Signed Patient calling to state her fever continues to rise, even after being on new medication for 24 hours. PT also feels lightheaded. PT unsure if she should go to the ER. Please return call to advise [phone] Adrienne Alan RN 06/02/2024 1:21 PM Signed Returned patient's call. Patient reports that she is still having fevers in the 100s, last one was 100.2F, generalized malaise and fatigue, and she has the shakes. Does not feel that the abscess has worsened. Patient has appointment tomorrow with Bonny Henry. Patient verbalizes concern in waiting for her appointment tomorrow due to her symptoms. Recommended patient proceed to the ED with her concerns. She will send in photos to update our team on the progression of the spitting suture abscess. She notes that she developed a reaction to the adhesive of a bandaid she applied but that this reaction is separate from the suture. Adrienne Alan RN June 02, 2024 1317 Allergies As of Date: 06/01/2024 Noted Allergy Reaction GABAPENTIN 04/13/2014 14 - Other: See Comments PREDNISONE 04/18/2015 1 - Mental Status Change LEXAPRO (ESCITALOPRAM) 02/22/2024 1 - Mental Status Change Comments: Severe moustapha TREE AND SHRUB POLLEN 07/22/2023 14 - Other: See Comments TOPAMAX (TOPIRAMATE) 12/12/2016 14 - Other: See Comments Comments: anxiety Date Reviewed: 05/12/2024 Reviewed by: Aly Carreno LPN - Fully Assessed Reason for Visit: Post op complications [2636] Cmt: See note Prescriptions as of 06/02/2024 - sulfamethoxazole-trimethop rim (BACTRIM DS) 800-160 mg per tablet Take 1 tablet by mouth two times a day for 7 days. - doxycycline monohydrate (MONODOX) 100 mg capsule Take 1 capsule by mouth two times a day for 10 days. - pregabalin (LYRICA) 75 mg capsule Take 1 capsule by mouth once daily for 180 days. - valACYclovir (VALTREX) 500 mg tablet Take 4 tablets twice daily X 1 day. Then start one tablet by mouth daily thereafter. - Nebulizer Accessories kit 1 Units once daily as needed. - sertraline (ZOLOFT) 50 mg tablet Take 1 tablet by mouth once daily. - calcium carbonate 400 mg (1,000 mg) chew Take 1,000 mg by mouth once daily. - ferrous sulfate (IRON) 325 mg (65 mg iron) tablet Take 325 mg by mouth once daily. - SUMAtriptan (IMITREX) 100 mg tablet Take 1 tablet (100 mg) by mouth as needed. START AT ONSET OF HEADACHE. MAY REPEAT DOSE AFTER 2 HOURS. - cyanocobalamin (VITAMIN B-12) 100 mcg tab Take 100 mcg by mouth once daily. - ergocalciferol, vitamin D2, (VITAMIN D2 ORAL) Take by mouth. - MULTIVITAMIN NO.43-IRON-FA ORAL Take by mouth. Problem List As Of Date 06/01/2024 Noted Resolved Unspecified asthma(493.90) [J45.909] 06/01/2015 Pain [...] radiculopathy [M54.12] 2019 SVT (supraventricular tachycardia) (HCC) [I47.1*03/04/2021 Palpitations [R00.2] 03/04/2021 Chest pain [R07.9] 03/04/2021 SOB (shortness of breath) [R06.02] 03/04/2021 Degenerative joint disease involving multiple j*05/06/2021 Limited mobility [Z74.09] 05/06/2021 History of gastroesophageal reflux (GERD) [Z87.*05/06/2021 Morbid obesity due to excess calories (HCC) [E6*05/06/2021 Morbid obesity (HCC) [E66.01] 10/01/2021 History of gastric bypass [Z98.84] 02/18/2024 Encounter Status:Closed by LADI TIERNEY on 06/02/24 [facility] RAUL CH[facility] ([id number]) 1980 F Date Time Provider Department 05/26/24 GUSTAVOJAE ARANA During your visit today, we recorded the following information about you: Tomeka Vidal 05/26/2024 10:12 AM Signed Patient states abscess is back in the same spot has yellow discharge red and swollen please advise. Advised to send pictures Alexia Brian RN 05/26/2024 10:32 AM Signed Responded to patient photos via mychart Tomeka Vidal 05/31/2024 9:36 AM Signed Patient states she has more abscess coming again through stitches please advise. Adrienne Alan RN 05/31/2024 5:23 PM Signed Reached out to patient. She denies fevers, chills, spreading redness. Discussed red flag s/s of infection which would warrant reaching out. She sees Bonny on 06/09 but will let us know if she develops concerns sooner. Antibiotic switched from doxycycline to bactrim per Tanna. Patient aware. Grateful for the call. Adrienne Alan RN. May 31, 2024 1720 Allergies As of Date: 05/26/2024 Noted Allergy Reaction GABAPENTIN 04/13/2014 14 - Other: See Comments PREDNISONE 04/18/2015 1 - Mental Status Change LEXAPRO (ESCITALOPRAM) 02/22/2024 1 - Mental Status Change Comments: Severe moustapha TREE AND SHRUB POLLEN 07/22/2023 14 - Other: See Comments TOPAMAX (TOPIRAMATE) 12/12/2016 14 - Other: See Comments Comments: anxiety Date Reviewed: 05/12/2024 Reviewed by: Aly Carreno LPN - Fully Assessed Reason for Visit: Abscess [1744] Cmt: Prescriptions as of 05/31/2024 - sulfamethoxazole-trimethop rim (BACTRIM DS) 800-160 mg per tablet Take 1 tablet by mouth two times a day for 7 days. - doxycycline monohydrate (MONODOX) 100 mg capsule Take 1 capsule by mouth two times a day for 10 days. - pregabalin (LYRICA) 75 mg capsule Take 1 capsule by mouth once daily for 180 days. - valACYclovir (VALTREX) 500 mg tablet Take 4 tablets twice daily X 1 day. Then start one tablet by mouth daily thereafter. - Nebulizer Accessories kit 1 Units once daily as needed. - sertraline (ZOLOFT) 50 mg tablet Take 1 tablet by mouth once daily. - calcium carbonate 400 mg (1,000 mg) chew Take 1,000 mg by mouth once daily. - ferrous sulfate (IRON) 325 mg (65 mg iron) tablet Take 325 mg by mouth once daily. - SUMAtriptan (IMITREX) 100 mg tablet Take 1 tablet (100 mg) by mouth as needed. START AT ONSET OF HEADACHE. MAY REPEAT DOSE AFTER 2 HOURS. - cyanocobalamin (VITAMIN B-12) 100 mcg tab Take 100 mcg by mouth once daily. - ergocalciferol, vitamin D2, (VITAMIN D2 ORAL) Take by mouth. - MULTIVITAMIN NO.43-IRON-FA ORAL Take by mouth. Problem List As Of Date 05/26/2024 Noted Resolved Unspecified asthma(493.90) [J45.909] 06/01/2015 Pain [...] radiculopathy [M54.12] 2019 SVT (supraventricular tachycardia) (HCC) [I47.1*03/04/2021 Palpitations [R00.2] 03/04/2021 Chest pain [R07.9] 03/04/2021 SOB (shortness of breath) [R06.02] 03/04/2021 Degenerative joint disease involving multiple j*05/06/2021 Limited mobility [Z74.09] 05/06/2021 History of gastroesophageal reflux (GERD) [Z87.*05/06/2021 Morbid obesity due to excess calories (HCC) [E6*05/06/2021 Morbid obesity (HCC) [E66.01] 10/01/2021 History of gastric bypass [Z98.84] 02/18/2024 Encounter Status:Closed by ALEXIA BRIAN on 05/26/24 [facility] CNCOon 05-12-2024 CNCO Letter Text [facility] CNOVon 05-12-2024 CNOV Office Visit (PLASST ) -- RAUL CHONG ([id number]) 1980 F Date Time Provider Department 05/12/24 10:00 AM BONNY HENRY During your visit today, we recorded the following information about you: Bonny Henry APRN.SAUSAGE GRINDER 05/12/2024 11:50 AM Signed Plastic Surgery Post Op Note CC: post op HPI: Raul Chong is a 43 year old female who presents s/p Date of Surgery: 03/14/24 Surgery: Panniculectomy Time Postop: 8 weeks Pt presents for post-op visit. 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 She is not taking any pain medications. She denies drainage from her incision, fever, chills. She reports spitting sutures on abdomen. No concerns Surgical pathology reviewed Component FINAL DIAGNOSIS Soft tissue, abdominal pannus, resection: - Skin with abundant subcutaneous adipose tissue. PAST MEDICAL HISTORY Diagnosis Date Autoimmune disease (HCC) Degeneration of intervertebral disc, site unspecified Depression Migraines Mild intermittent asthma Obesity Osteoarthritis of both knees Plantar fasciitis Psoriasis PAST SURGICAL HISTORY Procedure Laterality Date ADENOIDECTOMY PRIMARY Adenoidectomy DELIVERY ONLY , low cervical LAPAROSCOPY SURG CHOLECYSTECTOMY 2013 PAST SURGICAL HISTORY OF Bilateral arthoscopy to ankles, scar tissue removal and tendon lengthening TONSILLECTOMY PRIMARY/SECONDARY Tonsillectomy Current Outpatient Medications on File Prior to Visit Medication Sig traMADol (ULTRAM) 50 mg tablet Take 1 tablet by mouth two times a day as needed for pain for up to 7 days. acetaminophen (TYLENOL) 500 mg tablet Take 2 tablets by mouth every 6 hours for 5 days, THEN 1-2 tablets every 6 hours as needed for pain for up to 10 days. senna (SENOKOT) 8.6 mg tab Take 1 tablet by mouth two times a day as needed for constipation for up to 15 days. Nebulizer Accessories kit 1 Units once daily as needed. albuterol (PROVENTIL) 2.5 mg /3 mL (0.083 %) nebulizer solution Use 3 mL via nebulizer every 4 hours as needed for wheezing/shortness of breath. Use over 5-15minutes. sertraline (ZOLOFT) 50 mg tablet Take 1 tablet by mouth once daily. hydrOXYzine HCl (ATARAX) 25 mg tablet Take 1 tablet by mouth three times a day as needed for itching/rash. pregabalin (LYRICA) 75 mg capsule Take 1 capsule by mouth once daily for 180 days. calcium carbonate 400 mg (1,000 mg) chew Take 1,000 mg by mouth once daily. ferrous sulfate (IRON) 325 mg (65 mg iron) tablet Take 325 mg by mouth once daily. valACYclovir (VALTREX) 500 mg tablet Take 4 tablets twice daily X 1 day. Then start one tablet by mouth daily thereafter. SUMAtriptan (IMITREX) 100 mg tablet Take 1 tablet (100 mg) by mouth as needed. START AT ONSET OF HEADACHE. MAY REPEAT DOSE AFTER 2 HOURS. cyanocobalamin (VITAMIN B-12) 100 mcg tab Take 100 mcg by mouth once daily. ergocalciferol, vitamin D2, (VITAMIN D2 ORAL) Take by mouth. MULTIVITAMIN NO.43-IRON-FA ORAL Take by mouth. albuterol (PROVENTIL) 2.5 mg /3 mL (0.083 %) nebulizer solution Use 3 mL via nebulizer every 4 hours as needed for wheezing/shortness of breath. No current facility-administered medications on file prior to visit. LMP 02/23/2024 (Approximate) PE Alert and oriented in NAD on room air abdominal incisions c/d/I, well-approximated, healing No s/s of infection 2 spitting abdominal sutures removed ASSESSMENT/PLAN: Expected post operative course Doing well -RTW letter given to pt -okay to return to work part-time for the next month -Shower regularly to keep the incisions clean and inspect for signs of infection (due to decreased sensation) -Okay to take a bath -Walking is encouraged, this helps to reduce swelling and lowers the chance of blood clots. If you were prescribed anticoagulation post operatively, please complete course as instructed -Activity restrictions reviewed with patient. No heavy lifting/pushing/pulling greater than 10 lbs for 4 weeks after surgery. Do not perform hydrogenation operator such as laundry and vacuuming. Do not perform yard work. no core exercises for 6-8 weeks following abdominal surgery -Continue, compression garment- okay for spanx type garment -Okay for driving if not taking any narcotic pain medication and you feel safe to maneuver a car -okay to sleep on your back and lie flat, do not sleep on the surgical side 3-4 weeks after recent procedure -Okay for tylenol alternating with ibuprofen for pain control (do not exceed 4 g tylenol in a 24 hour period, okay for ibuprofen 600-800 mg every 8 hours as needed for pain) -scar massage-with lotion of choice, massage incision for 5 minutes, 5 times a day for 5 months. -you may also use scar cream or tapes with silicone ingredient Encouraged patient to communicate thr (more content not included)... [facility] CNCOon 04-14-2024 CNCO Letter Text [facility] CNOVon 04-14-2024 CNOV Office Visit (PLASST ) -- RAUL CHONG ([id number]) 1980 F Date Time Provider Department 04/14/24 11:40 AM BONNY HENRY During your visit today, we recorded the following information about you: Bonny Henry APRN.SAUSAGE GRINDER 04/14/2024 12:13 PM Addendum Plastic Surgery Post Op Note CC: post op HPI: Raul Chong is a 43 year old female who presents s/p Date of Surgery: 03/14/24 Surgery: Panniculectomy Time Postop: 4 weeks Pt presents for post-op visit. Pt reports she jumped on the bed to play with her puppy and she heard a popping noise and burning on her right abdominal incision. She reports soreness on both sides Pain: pain is not an issue at this time. She does not take anything for pain Drainage from incisions: denies Fever/chills: denies Antibiotics: finished course Activity: able to participate in ADLs within recommended restrictions Appetite: good No concerns Surgical pathology reviewed Component FINAL DIAGNOSIS Soft tissue, abdominal pannus, resection: - Skin with abundant subcutaneous adipose tissue. PAST MEDICAL HISTORY Diagnosis Date Autoimmune disease (HCC) Degeneration of intervertebral disc, site unspecified Depression Migraines Mild intermittent asthma Obesity Osteoarthritis of both knees Plantar fasciitis Psoriasis PAST SURGICAL HISTORY Procedure Laterality Date ADENOIDECTOMY PRIMARY Adenoidectomy DELIVERY ONLY , low cervical LAPAROSCOPY SURG CHOLECYSTECTOMY 2013 PAST SURGICAL HISTORY OF Bilateral arthoscopy to ankles, scar tissue removal and tendon lengthening TONSILLECTOMY PRIMARY/SECONDARY Tonsillectomy Current Outpatient Medications on File Prior to Visit Medication Sig traMADol (ULTRAM) 50 mg tablet Take 1 tablet by mouth two times a day as needed for pain for up to 7 days. acetaminophen (TYLENOL) 500 mg tablet Take 2 tablets by mouth every 6 hours for 5 days, THEN 1-2 tablets every 6 hours as needed for pain for up to 10 days. senna (SENOKOT) 8.6 mg tab Take 1 tablet by mouth two times a day as needed for constipation for up to 15 days. Nebulizer Accessories kit 1 Units once daily as needed. albuterol (PROVENTIL) 2.5 mg /3 mL (0.083 %) nebulizer solution Use 3 mL via nebulizer every 4 hours as needed for wheezing/shortness of breath. Use over 5-15minutes. sertraline (ZOLOFT) 50 mg tablet Take 1 tablet by mouth once daily. hydrOXYzine HCl (ATARAX) 25 mg tablet Take 1 tablet by mouth three times a day as needed for itching/rash. pregabalin (LYRICA) 75 mg capsule Take 1 capsule by mouth once daily for 180 days. calcium carbonate 400 mg (1,000 mg) chew Take 1,000 mg by mouth once daily. ferrous sulfate (IRON) 325 mg (65 mg iron) tablet Take 325 mg by mouth once daily. valACYclovir (VALTREX) 500 mg tablet Take 4 tablets twice daily X 1 day. Then start one tablet by mouth daily thereafter. SUMAtriptan (IMITREX) 100 mg tablet Take 1 tablet (100 mg) by mouth as needed. START AT ONSET OF HEADACHE. MAY REPEAT DOSE AFTER 2 HOURS. cyanocobalamin (VITAMIN B-12) 100 mcg tab Take 100 mcg by mouth once daily. ergocalciferol, vitamin D2, (VITAMIN D2 ORAL) Take by mouth. MULTIVITAMIN NO.43-IRON-FA ORAL Take by mouth. albuterol (PROVENTIL) 2.5 mg /3 mL (0.083 %) nebulizer solution Use 3 mL via nebulizer every 4 hours as needed for wheezing/shortness of breath. No current facility-administered medications on file prior to visit. LMP 02/23/2024 (Approximate) PE Alert and oriented in NAD on room air abdominal incisions c/d/I, well-approximated, healing No s/s of infection ASSESSMENT/PLAN: Expected post operative course Doing well -okay to return to work in 2 weeks -Shower regularly to keep the incisions clean and inspect for signs of infection (due to decreased sensation) -Okay to take a bath -Walking is encouraged, this helps to reduce swelling and lowers the chance of blood clots. If you were prescribed anticoagulation post operatively, please complete course as instructed -Activity restrictions reviewed with patient. No heavy lifting/pushing/pulling greater than 10 lbs for 4 weeks after surgery. Do not perform hydrogenation operator such as laundry and vacuuming. Do not perform yard work. no core exercises for 6-8 weeks following abdominal surgery -Continue, compression garment- okay for spanx type garment -Okay for driving if not taking any narcotic pain medication and you feel safe to maneuver a car -okay to sleep on your back and lie flat, do not sleep on the surgical side 3-4 weeks after recent procedure -Okay for tylenol alternating with ibuprofen for pain control (do not exceed 4 g tylenol in a 24 hour period, okay for ibuprofen 600-800 mg every 8 hours as needed for pain) -scar massage-with lotion of choice, massage incision for 5 minutes, 5 times a day for 5 months. -you may al (more content not included)... [facility] CNPNon 04-05-2024 CNPN Telephone (PLASST) -- RAUL CHONG ([id number]) 1980 F Date Time Provider Department 04/05/24 JAE STERLING During your visit today, we recorded the following information about you: Ladi Tierney 04/05/2024 2:56 PM Signed Patient had surgery on 03/14. Today patient was laying on her side when she started feeling very hot and got the shakes. Patient concerned this could be related to her surgery. Patient requesting to speak with Dr Sterling or a nurse. Please return call to advise [phone] Alexia Brian RN 04/06/2024 10:44 AM Addendum Patient states yesterday she was lying on the couch when she started to feel really hot and had the shakes. This lasted 30 minutes. She sat up and started to feel better. She is s/p gastric bypass and sometimes this happens when her sugars drop low. This only happened the one time yesterday but patient was concerned about infection. At the time her temperature was 99. Today she feels better, still fatigued after surgery 98.5 temperature. Denies any other symptoms of infection, incisions healing well. Mild swelling at her midline but she does not believe there is a fluid collection. Denies fluid wave. Has not been wearing binder the past two days. We discussed to continue to monitor, if symptoms persist or if she has another episode with any new symptoms of infection call us or go to ED for further evaluation. Okay to switch to compressive leggings/garment during the day if binder is causing discomfort. Offered an appointment with bonny tomorrow for evaluation. Patient is feeling better today and will continue to monitor and follow up with us. Has post op next week with bonny feels okay to wait until then and will call to come in sooner if needed. No further questions or concerns at this time. Allergies As of Date: 04/05/2024 Noted Allergy Reaction GABAPENTIN 04/13/2014 14 - Other: See Comments PREDNISONE 04/18/2015 1 - Mental Status Change LEXAPRO (ESCITALOPRAM) 02/22/2024 1 - Mental Status Change Comments: Severe moustapha TREE AND SHRUB POLLEN 07/22/2023 14 - Other: See Comments TOPAMAX (TOPIRAMATE) 12/12/2016 14 - Other: See Comments Comments: anxiety Date Reviewed: 03/31/2024 Reviewed by: Aly Carreno LPN - Fully Assessed Reason for Visit: Multiple Concerns [253] Cmt: See note Prescriptions as of 04/06/2024 - valACYclovir (VALTREX) 500 mg tablet Take 4 tablets twice daily X 1 day. Then start one tablet by mouth daily thereafter. - cyclobenzaprine (FLEXERIL) 10 mg tablet Take 1 tablet by mouth three times a day as needed for muscle spasm. - silver sulfADIAZINE (SILVADENE) 1 % cream Apply to incision twice a day as directed - Nebulizer Accessories kit 1 Units once daily as needed. - albuterol (PROVENTIL) 2.5 mg /3 mL (0.083 %) nebulizer solution Use 3 mL via nebulizer every 4 hours as needed for wheezing/shortness of breath. Use over 5-15minutes. - sertraline (ZOLOFT) 50 mg tablet Take 1 tablet by mouth once daily. - hydrOXYzine HCl (ATARAX) 25 mg tablet Take 1 tablet by mouth three times a day as needed for itching/rash. - pregabalin (LYRICA) 75 mg capsule Take 1 capsule by mouth once daily for 180 days. - calcium carbonate 400 mg (1,000 mg) chew Take 1,000 mg by mouth once daily. - ferrous sulfate (IRON) 325 mg (65 mg iron) tablet Take 325 mg by mouth once daily. - SUMAtriptan (IMITREX) 100 mg tablet Take 1 tablet (100 mg) by mouth as needed. START AT ONSET OF HEADACHE. MAY REPEAT DOSE AFTER 2 HOURS. - cyanocobalamin (VITAMIN B-12) 100 mcg tab Take 100 mcg by mouth once daily. - ergocalciferol, vitamin D2, (VITAMIN D2 ORAL) Take by mouth. - MULTIVITAMIN NO.43-IRON-FA ORAL Take by mouth. - albuterol (PROVENTIL) 2.5 mg /3 mL (0.083 %) nebulizer solution Use 3 mL via nebulizer every 4 hours as needed for wheezing/shortness of breath. Problem List As Of Date 04/05/2024 Noted Resolved Unspecified asthma(493.90) [J45.909] 06/01/2015 Pain [...] radiculopathy [M54.12] 2019 SVT (supraventricular tachycardia) (HCC) [I47.1*03/04/2021 Palpitations [R00.2] 03/04/2021 Chest pain [R07.9] 03/04/2021 SOB (shortness of breath) [R06.02] 03/04/2021 Degenerative joint disease in (more content not included)... [facility] CNOVon 03-31-2024 CNOV Office Visit (PLASST ) -- RAUL CHONG ([id number]) 1980 F Date Time Provider Department 03/31/24 1:20 PM BONNY HENRY During your visit today, we recorded the following information about you: Bonny Henry APRN.CNP 03/31/2024 2:01 PM Signed Plastic Surgery Post Op Note CC: post op HPI: Raul Chong is a 43 year old female who presents s/p Date of Surgery: 03/14/24 Surgery: Panniculectomy Time Postop: 17 days Pt presents for post-op visit. Pt reports that pain is less and she is sore in hips and mid abdomen Pain: pain is not an issue at this time Drainage from incisions: denies Fever/chills: denies Antibiotics: yes Drain output: Derrick drain with less than 20 cc x 2 days Activity: able to participate in ADLs within recommended restrictions Appetite: good No concerns Surgical pathology reviewed Component FINAL DIAGNOSIS Soft tissue, abdominal pannus, resection: - Skin with abundant subcutaneous adipose tissue. PAST MEDICAL HISTORY Diagnosis Date Autoimmune disease (HCC) Degeneration of intervertebral disc, site unspecified Depression Migraines Mild intermittent asthma Obesity Osteoarthritis of both knees Plantar fasciitis Psoriasis PAST SURGICAL HISTORY Procedure Laterality Date ADENOIDECTOMY PRIMARY Adenoidectomy DELIVERY ONLY , low cervical LAPAROSCOPY SURG CHOLECYSTECTOMY 2013 PAST SURGICAL HISTORY OF Bilateral arthoscopy to ankles, scar tissue removal and tendon lengthening TONSILLECTOMY PRIMARY/SECONDARY Tonsillectomy Current Outpatient Medications on File Prior to Visit Medication Sig traMADol (ULTRAM) 50 mg tablet Take 1 tablet by mouth two times a day as needed for pain for up to 7 days. acetaminophen (TYLENOL) 500 mg tablet Take 2 tablets by mouth every 6 hours for 5 days, THEN 1-2 tablets every 6 hours as needed for pain for up to 10 days. senna (SENOKOT) 8.6 mg tab Take 1 tablet by mouth two times a day as needed for constipation for up to 15 days. Nebulizer Accessories kit 1 Units once daily as needed. albuterol (PROVENTIL) 2.5 mg /3 mL (0.083 %) nebulizer solution Use 3 mL via nebulizer every 4 hours as needed for wheezing/shortness of breath. Use over 5-15minutes. sertraline (ZOLOFT) 50 mg tablet Take 1 tablet by mouth once daily. hydrOXYzine HCl (ATARAX) 25 mg tablet Take 1 tablet by mouth three times a day as needed for itching/rash. pregabalin (LYRICA) 75 mg capsule Take 1 capsule by mouth once daily for 180 days. calcium carbonate 400 mg (1,000 mg) chew Take 1,000 mg by mouth once daily. ferrous sulfate (IRON) 325 mg (65 mg iron) tablet Take 325 mg by mouth once daily. valACYclovir (VALTREX) 500 mg tablet Take 4 tablets twice daily X 1 day. Then start one tablet by mouth daily thereafter. SUMAtriptan (IMITREX) 100 mg tablet Take 1 tablet (100 mg) by mouth as needed. START AT ONSET OF HEADACHE. MAY REPEAT DOSE AFTER 2 HOURS. cyanocobalamin (VITAMIN B-12) 100 mcg tab Take 100 mcg by mouth once daily. ergocalciferol, vitamin D2, (VITAMIN D2 ORAL) Take by mouth. MULTIVITAMIN NO.43-IRON-FA ORAL Take by mouth. albuterol (PROVENTIL) 2.5 mg /3 mL (0.083 %) nebulizer solution Use 3 mL via nebulizer every 4 hours as needed for wheezing/shortness of breath. No current facility-administered medications on file prior to visit. LMP 02/23/2024 (Approximate) PE Alert and oriented in NAD on room air Abdominal DERRICK drain intact, patent, draining ss drainage abdominal incisions c/d/I, No s/s of infection ASSESSMENT/PLAN: Expected post operative course Doing well -you may stop antibiotics -DERRICK drain removed X 1. DSD applied. Okay to shower in 24 hours. Apply antibiotic ointment to drain sites and cover with band aid until they are healed -Shower regularly to keep the incisions clean and inspect for signs of infection (due to decreased sensation) -Walking is encouraged, this helps to reduce swelling and lowers the chance of blood clots. If you were prescribed anticoagulation post operatively, please complete course as instructed -Activity restrictions reviewed with patient. Okay to raise arm above head at 2 weeks if you drains have all been removed and you do not have any wound healing issues. No heavy lifting/pushing/pulling greater than 10 lbs for 4 weeks after surgery. Do not perform hydrogenation operator such as laundry and vacuuming. Do not perform yard work. no core exercises for 6-8 weeks following abdominal surgery -Continue surgical bra, okay for soft bra/sports bra at 2 weeks, no underwire -Continue abdominal binder, compression garment- okay for spanx type garment -No water submersion/baths until all incisions are fully healed -Okay for driving if not taking any narcotic pain medication and you feel safe to maneuver a car -apply silvadene ointment to incision and cover with dry dr (more content not included)... [facility] CNPNon 03-28-2024 CNPN Telephone (PLASMN) -- RAUL CHONG ([id number]) 1980 F Date Time Provider Department 03/28/24 FAMILIA CRUZ During your visit today, we recorded the following information about you: Familia Cruz MD 03/28/2024 7:09 PM Signed Plastic Surgery - Telephone Encounter Patient called with concern of: Drainage from around drain Raul Chong is a 43 year old female s/p Panniculectomy on 03/14 that is calling for concerns of drainage. Patient reports she still has a DERRICK and while in the restroom she noticed drainage from around the drain that went down her leg. She reports the color is the same as the bulb; clear and serous. She denies any new pain. She notes last appointment she needs to adhere more to the physical restrictions from surgery and wear binder. Patient denies fever, chills, cough, shortness of breath, chest pain, nausea, vomiting, diarrhea, abdominal pain, or any other complaints at this time. States surgical sites are: well healed, clean, dry and intact and there is no erythema or drainage present. No erythema, rubor or new pain. Drains are Same: in output in content, character and volume. Shedeniesconstitutional symptoms. denies fevers or chills. Ambulatory. Good oral intake. Voiding without difficulty. Plan: - Patient advised to reinforce with dressing around drain as needed - Patient agreeable to care plan at this time, all questions and concerns addressed. Patient encouraged to call back with any additional questions or concerns. Instructed on red-flag symptoms to call back if occur, understanding. Instructed on emergency signs/symptoms in which to come to ED immediately or call -, patient understanding. Familia Cruz MD Plastic Surgery Resident (PGY-2) [phone] After 6 pm and on-weekends, please page [phone] (on-call plastic surgery) Allergies As of Date: 03/28/2024 Noted Allergy Reaction GABAPENTIN 04/13/2014 14 - Other: See Comments PREDNISONE 04/18/2015 1 - Mental Status Change LEXAPRO (ESCITALOPRAM) 02/22/2024 1 - Mental Status Change Comments: Severe moustapha TREE AND SHRUB POLLEN 07/22/2023 14 - Other: See Comments TOPAMAX (TOPIRAMATE) 12/12/2016 14 - Other: See Comments Comments: anxiety Date Reviewed: 03/26/2024 Reviewed by: Starr Ram APRN.SAUSAGE GRINDER - Fully Assessed Reason for Visit: Wound Check [133] Prescriptions as of 03/28/2024 - valACYclovir (VALTREX) 500 mg tablet Take 4 tablets twice daily X 1 day. Then start one tablet by mouth daily thereafter. - cyclobenzaprine (FLEXERIL) 10 mg tablet Take 1 tablet by mouth three times a day as needed for muscle spasm. - cefADROxil (DURICEF) 500 mg capsule Take 1 capsule by mouth two times a day for 10 days. - silver sulfADIAZINE (SILVADENE) 1 % cream Apply to incision twice a day as directed - traMADol (ULTRAM) 50 mg tablet Take 1 tablet by mouth two times a day as needed for pain for up to 7 days. - acetaminophen (TYLENOL) 500 mg tablet Take 2 tablets by mouth every 6 hours for 5 days, THEN 1-2 tablets every 6 hours as needed for pain for up to 10 days. - senna (SENOKOT) 8.6 mg tab Take 1 tablet by mouth two times a day as needed for constipation for up to 15 days. - Nebulizer Accessories kit 1 Units once daily as needed. - albuterol (PROVENTIL) 2.5 mg /3 mL (0.083 %) nebulizer solution Use 3 mL via nebulizer every 4 hours as needed for wheezing/shortness of breath. Use over 5-15minutes. - sertraline (ZOLOFT) 50 mg tablet Take 1 tablet by mouth once daily. - hydrOXYzine HCl (ATARAX) 25 mg tablet Take 1 tablet by mouth three times a day as needed for itching/rash. - pregabalin (LYRICA) 75 mg capsule Take 1 capsule by mouth once daily for 180 days. - calcium carbonate 400 mg (1,000 mg) chew Take 1,000 mg by mouth once daily. - ferrous sulfate (IRON) 325 mg (65 mg iron) tablet Take 325 mg by mouth once daily. - SUMAtriptan (IMITREX) 100 mg tablet Take 1 tablet (100 mg) by mouth as needed. START AT ONSET OF HEADACHE. MAY REPEAT DOSE AFTER 2 HOURS. - cyanocobalamin (VITAMIN B-12) 100 mcg tab Take 100 mcg by mouth once daily. - ergocalciferol, vitamin D2, (VITAMIN D2 ORAL) Take by mouth. - MULTIVITAMIN NO.43-IRON-FA ORAL Take by mouth. - albuterol (PROVENTIL) 2.5 mg /3 mL (0.083 %) nebulizer solution Use 3 mL via nebulizer every 4 hours as needed for wheezing/shortness of breath. Problem List As Of Date 03/28/2024 Noted Resolved Unspecified asthma(493.90) [J45.909] 06/01/2015 Pain in joint, lower leg [M25.569] 12/10/2005 09/16/2018 INTERNAL DERANGEMNT KNEE [717] 12/10/2005 Other joint derangement, not elsewhere classifi*05/12/2014 Other enthesopathy of ankle and tarsus [M77.50] 05/12/2014 Migraines [G43.909] 10/09/2014 Seasonal allergies [J30.2] 10/09/2014 Plantar fasciitis [M72.2] 10/09/2014 Lumbar sprain [S33.5XXA] 01/19/2015 Gastroesophageal re (more content not included)... [facility] CNOVon 03-26-2024 CNOV Office Visit (UCWSTR ) -- RAUL CHONG ([id number]) 1980 F Date Time Provider Department 03/26/24 10:30 AM STARR RAM [facility] During your visit today, we recorded the following information about you: Temperature Pulse Respiration Blood pressure 97.4 degrees 84/minute 16/minute 112/64 Weight 83.6 kg Starr Ram APRN.SAUSAGE GRINDER 03/26/2024 11:01 AM Signed Subjective The history is provided by the patient. No hourly sign language interpreter was used. HPI Raulra Harvinder Chong is a 43 year old female who presents today for CC of lower left shooting pains down her leg, starting mid gluteal. She has had recent bariatric surgery, lost 250 lbs, and recently had panniculectomy. She has used ultram and tylenol without relief. She has 2 ultram left. She denies any know injury or trauma She denies any loss of bowel or bladder function, no foot drop or drag BP 112/64 Pulse 84 Temp 36.3 ?C (97.4 ?F) (Tympanic) Resp 16 Wt 83.6 kg (184 lb 4.9 oz) LMP 02/23/2024 (Approximate) SpO2 97% BMI 28.02 kg/m? Social History Tobacco Use Smoking status: Former Current packs/day: 0.00 Average packs/day: 0.3 packs/day for 24.0 years (6.0 ttl pk-yrs) Types: Cigarettes Start date: 03/19/1990 Quit date: 2015 Years since quittin.1 Smokeless tobacco: Never Tobacco comments: Quit in 2015, does vape daily Vaping Use Vaping status: current everyday user Start date: 08/10/2023 Substances: Nicotine Devices: Disposable Substance Use Topics Alcohol use: Not Currently Comment: rarely Drug use: No PAST MEDICAL HISTORY Diagnosis Date Autoimmune disease (HCC) Degeneration of intervertebral disc, site unspecified Depression Migraines Mild intermittent asthma Obesity Osteoarthritis of both knees Plantar fasciitis Psoriasis I have confirmed and edited as necessary, the [facility] Review of Systems Constitutional: Negative for chills and fever. Musculoskeletal: Positive for back pain. Negative for joint pain and myalgias. Skin: Negative for itching and rash. All other systems reviewed and are negative. Objective Physical Exam Vitals and nursing note reviewed. Cardiovascular: Pulses: Dorsalis pedis pulses are 2+ on the right side and 2+ on the left side. Posterior tibial pulses are 2+ on the right side and 2+ on the left side. Pulmonary: Effort: Pulmonary effort is normal. Musculoskeletal: Cervical back: Normal. Thoracic back: Normal. Lumbar back: Tenderness present. No swelling, deformity, lacerations or bony tenderness. Back: Comments: Area of pain marked with radiation of pain Skin: General: Skin is warm and dry. Neurological: Mental Status: She is alert and oriented to person, place, and time. Sensory: Sensation is intact. Motor: Motor function is intact. Deep Tendon Reflexes: Reflexes are normal and symmetric. Psychiatric: Mood and Affect: Affect normal. ASSESSMENT/PLAN: 1. Acute right-sided low back pain with right-sided sciatica - ICD9: 724.2, 724.3, ICD10: M54.41 Sciatica - Warm moist heat for 20 min three times a day - Muscle relaxant- see orders - Patient given instructions use of medications as ordered, intermittent rest, proper lifting techniques, and intermittent use of heat Diagnosis and treatment plan were discussed and questions were answered to the patient's satisfaction. Pt acknowledged understanding of concepts and follow up plan. Specific signs and symptoms that would indicate the need for higher level of care were discussed in detail warranting prompt ER evaluation. Starr Ram APRN.Starr Dailey APRN.CNP 03/26/2024 10:59 AM Signed Stretches Flexeril as ordered, do not use with ultram Tylenol as ordered Follow up with pcp Report immediately to ER for foot drop, bowel or bladder loss, numbness or tingling of legs/feet or any new or worsening concerns if unable to get into PMD Allergies As of Date: 03/26/2024 Noted Allergy Reaction GABAPENTIN 04/13/2014 14 - Other: See Comments PREDNISONE 04/18/2015 1 - Mental Status Change LEXAPRO (ESCITALOPRAM) 02/22/2024 1 - Mental Status Change Comments: Severe moustapha TREE AND SHRUB POLLEN 07/22/2023 14 - Other: See Comments TOPAMAX (TOPIRAMATE) 12/12/2016 14 - Other: See Comments Comments: anxiety Date Reviewed: 03/26/2024 Reviewed by: Starr Ram APRN.SAUSAGE GRINDER - Fully Assessed Reason for Visit: Low Back Pain [126] Cmt: Feels like a pinched nerve in lower back x 1 day Primary Visit Diagnosis:Acute right-sided low back pain with right-sided sciatica [M54.41] Order(s):cyclobenzaprine (FLEXERIL) 10 mg tabletTake 1 tablet by mouth three times a day as needed for muscle spasm.Disp: 18 tabletRfl: 0 Prescriptions as of 03/26/2024 - cyclobenzaprine (FLEXERIL) 10 mg tablet Take 1 tablet by mouth three times a day as needed for muscle spasm. - cefADROxil (DURICEF) 500 mg capsule Take 1 ca (more content not included)... [facility] CNOVon 03-24-2024 CNOV Office Visit (PLASST ) -- CHONGORQUIDEA DOOLEYRA Blanton ([id number]) 1980 F Date Time Provider Department 03/24/24 11:00 AM BONNY HENRY During your visit today, we recorded the following information about you: Temperature 98.3 degrees Bonny Henry APRN.CNP 03/24/2024 11:52 AM Signed Plastic Surgery Post Op Note CC: post op HPI: Raul Chong is a 43 year old female who presents s/p Date of Surgery: 03/14/24 Surgery: Panniculectomy Time Postop: 10 days Pt presents for initial post-op visit. Pt reports that pain is worse that she has ever had, but she is pushing through it. She reports her drainage from the DERRICK has increased over the past 2 days Pain: control is good with medication. 5/. Pt is taking Ultram and tylenol Drainage from incisions: denies Fever/chills: denies Antibiotics: no Drain output: Derrick drain with greater than 60 cc x 2 days Activity: able to participate in ADLs within recommended restrictions Appetite: good No concerns Surgical pathology reviewed Component FINAL DIAGNOSIS Soft tissue, abdominal pannus, resection: - Skin with abundant subcutaneous adipose tissue. PAST MEDICAL HISTORY Diagnosis Date Autoimmune disease (HCC) Degeneration of intervertebral disc, site unspecified Depression Migraines Mild intermittent asthma Obesity Osteoarthritis of both knees Plantar fasciitis Psoriasis PAST SURGICAL HISTORY Procedure Laterality Date ADENOIDECTOMY PRIMARY Adenoidectomy DELIVERY ONLY , low cervical LAPAROSCOPY SURG CHOLECYSTECTOMY 2013 PAST SURGICAL HISTORY OF Bilateral arthoscopy to ankles, scar tissue removal and tendon lengthening TONSILLECTOMY PRIMARY/SECONDARY Tonsillectomy Current Outpatient Medications on File Prior to Visit Medication Sig traMADol (ULTRAM) 50 mg tablet Take 1 tablet by mouth two times a day as needed for pain for up to 7 days. acetaminophen (TYLENOL) 500 mg tablet Take 2 tablets by mouth every 6 hours for 5 days, THEN 1-2 tablets every 6 hours as needed for pain for up to 10 days. senna (SENOKOT) 8.6 mg tab Take 1 tablet by mouth two times a day as needed for constipation for up to 15 days. Nebulizer Accessories kit 1 Units once daily as needed. albuterol (PROVENTIL) 2.5 mg /3 mL (0.083 %) nebulizer solution Use 3 mL via nebulizer every 4 hours as needed for wheezing/shortness of breath. Use over 5-15minutes. sertraline (ZOLOFT) 50 mg tablet Take 1 tablet by mouth once daily. hydrOXYzine HCl (ATARAX) 25 mg tablet Take 1 tablet by mouth three times a day as needed for itching/rash. pregabalin (LYRICA) 75 mg capsule Take 1 capsule by mouth once daily for 180 days. calcium carbonate 400 mg (1,000 mg) chew Take 1,000 mg by mouth once daily. ferrous sulfate (IRON) 325 mg (65 mg iron) tablet Take 325 mg by mouth once daily. valACYclovir (VALTREX) 500 mg tablet Take 4 tablets twice daily X 1 day. Then start one tablet by mouth daily thereafter. SUMAtriptan (IMITREX) 100 mg tablet Take 1 tablet (100 mg) by mouth as needed. START AT ONSET OF HEADACHE. MAY REPEAT DOSE AFTER 2 HOURS. cyanocobalamin (VITAMIN B-12) 100 mcg tab Take 100 mcg by mouth once daily. ergocalciferol, vitamin D2, (VITAMIN D2 ORAL) Take by mouth. MULTIVITAMIN NO.43-IRON-FA ORAL Take by mouth. albuterol (PROVENTIL) 2.5 mg /3 mL (0.083 %) nebulizer solution Use 3 mL via nebulizer every 4 hours as needed for wheezing/shortness of breath. No current facility-administered medications on file prior to visit. LMP 02/23/2024 (Approximate) PE Alert and oriented in NAD on room air Abdominal DERRICK drain intact, patent, draining ss drainage abdominal incisions c/d/I, No s/s of infection ASSESSMENT/PLAN: Expected post operative course Doing well -Reviewed surgical pathology with the patient - Do not remove dressing, okay to reinforce w/ Tegaderm. Tegaderm's given to patient today - Continue to record remaining DERRICK drain output in cc's or ml's. -Shower regularly to keep the incisions clean and inspect for signs of infection (due to decreased sensation) -Walking is encouraged, this helps to reduce swelling and lowers the chance of blood clots. If you were prescribed anticoagulation post operatively, please complete course as instructed -Activity restrictions reviewed with patient. Okay to raise arm above head at 2 weeks if you drains have all been removed and you do not have any wound healing issues. No heavy lifting/pushing/pulling greater than 10 lbs for 4 weeks after surgery. Do not perform hydrogenation operator such as laundry and vacuuming. Do not perform yard work. no core exercises for 6-8 weeks following abdominal surgery -Continue surgical bra, okay for soft bra/sports bra at 2 weeks, no underwire -Continue abdominal binder, compression garment- okay for spanx type garment -No water submersion/baths until a (more content not included)... [facility] Michael 03-21-2024 FATEMEHN Telephone (PLASST) -- RAUL CHONG ([id number]) 1980 F Date Time Provider Department 03/21/24 JAE STERLING During your visit today, we recorded the following information about you: Kishore BowmanRachna 03/21/2024 11:12 AM Signed Having really bad nausea and stomach cramps, diarrhea. She is not take oxycodone. She is wondering if the Tylenol is upsetting her stomach. The area around the incision is turning dark red/pink color. She asked if this is normal. There is no warmth or discharge. She is experiencing a burning sensation around the incision when she sits down after standing. She asked if this was normal. Please call to advise. Alexia Brian RN 03/21/2024 11:53 AM Signed Called patient States she has had stomach pain, diarrhea and nausea that come and go. Had one last night that lasted about an hour and again this morning. Denies fever/chills or drainage from her incisions. Is wondering if the tylenol is affecting her stomach but she cannot take NSAIDs s/p gastric bypass Will send photo of her incision for review. Will follow up after. No further questions or concerns at this time Alexia Brian RN 03/21/2024 1:13 PM Signed Reviewed photos. No signs or symptoms of infection at this time. Discussed after abdominal surgeries there can be sometightness which should improve in time. Patient states she is taking 1000 mg of tylenol every 6 hours. States in the past higher doses of tylenol have caused upset stomach so she thinks this is the cause. Has been weaning off of the oxycodone and has not taken it over the past few days. Discussed alternating tramadol and decreased tylenol dose to see if this helps with her GI upset. Discussed not taking the tramadol at the same time as oxycodone. Patient aware. Red flag sx discussed No further questions or concerns at this time Alexia Brian RN 03/21/2024 1:14 PM Signed Addended by: ALEXIA BRIAN on: 03/21/2024 01:14 PM Modules accepted: Orders Allergies As of Date: 03/21/2024 Noted Allergy Reaction GABAPENTIN 04/13/2014 14 - Other: See Comments PREDNISONE 04/18/2015 1 - Mental Status Change LEXAPRO (ESCITALOPRAM) 02/22/2024 1 - Mental Status Change Comments: Severe moustapha TREE AND SHRUB POLLEN 07/22/2023 14 - Other: See Comments TOPAMAX (TOPIRAMATE) 12/12/2016 14 - Other: See Comments Comments: anxiety Date Reviewed: 03/14/2024 Reviewed by: Dianna Beltran RN - Fully Assessed Reason for Visit: Nausea, stomach upset [Other] Patient Question [1594] Prescriptions as of 03/21/2024 - acetaminophen (TYLENOL) 500 mg tablet Take 2 tablets by mouth every 6 hours for 5 days, THEN 1-2 tablets every 6 hours as needed for pain for up to 10 days. - senna (SENOKOT) 8.6 mg tab Take 1 tablet by mouth two times a day as needed for constipation for up to 15 days. - Nebulizer Accessories kit 1 Units once daily as needed. - albuterol (PROVENTIL) 2.5 mg /3 mL (0.083 %) nebulizer solution Use 3 mL via nebulizer every 4 hours as needed for wheezing/shortness of breath. Use over 5-15minutes. - sertraline (ZOLOFT) 50 mg tablet Take 1 tablet by mouth once daily. - hydrOXYzine HCl (ATARAX) 25 mg tablet Take 1 tablet by mouth three times a day as needed for itching/rash. - pregabalin (LYRICA) 75 mg capsule Take 1 capsule by mouth once daily for 180 days. - calcium carbonate 400 mg (1,000 mg) chew Take 1,000 mg by mouth once daily. - ferrous sulfate (IRON) 325 mg (65 mg iron) tablet Take 325 mg by mouth once daily. - valACYclovir (VALTREX) 500 mg tablet Take 4 tablets twice daily X 1 day. Then start one tablet by mouth daily thereafter. - SUMAtriptan (IMITREX) 100 mg tablet Take 1 tablet (100 mg) by mouth as needed. START AT ONSET OF HEADACHE. MAY REPEAT DOSE AFTER 2 HOURS. - cyanocobalamin (VITAMIN B-12) 100 mcg tab Take 100 mcg by mouth once daily. - ergocalciferol, vitamin D2, (VITAMIN D2 ORAL) Take by mouth. - MULTIVITAMIN NO.43-IRON-FA ORAL Take by mouth. - albuterol (PROVENTIL) 2.5 mg /3 mL (0.083 %) nebulizer solution Use 3 mL via nebulizer every 4 hours as needed for wheezing/shortness of breath. Problem List As Of Date 03/21/2024 Noted Resolved Unspecified asthma(493.90) [J45.909] 06/01/2015 Pain [...] [J45.20] Class 3 severe obesity due to (more content not included)... [facility] ANES POSTPROC EVALon 025 ANES POSTPROC EVAL HNO ID: [id number] Author: LEEROY JOY MD Service: Anesthesiology Author Type: Anesthesiologist Type: Anesthesia Postprocedure Evaluation Filed: 03/14/2024 10:59 Note Text: POST ANESTHESIA EVALUATION NOTE : 1980 Procedure Summary Date: 03/14/24 Room / Location: [address] Anesthesia Start: 0756 Anesthesia Stop: 103 Procedure: PANNICULECTOMY (Abdomen) Diagnosis: Abdominal pannus Loose skin Rash Dermatitis Intertrigo (Abdominal pannus [E65]) (Loose skin [L98.7]) (Rash [R21]) (Dermatitis [L30.9]) (Intertrigo [L30.4]) Surgeons: Jae Sterling MD Responsible Provider: Leeroy Joy MD Anesthesia Type: general ASA Status: 2 Anesthesia Type: general Airway Type: ETT Last Vitals Vitals Value Taken Time BP 101/58 03/14/24 1045 Temp 37 ?C (98.6 ?F) 03/14/24 1030 Pulse 62 03/14/24 1057 Resp 14 03/14/24 1030 SpO2 96 % 03/14/24 1057 Vitals shown include unfiled device data. Post Anesthesia Patient Status Patient Evaluation: bedside. Anticipated Disposition: phase 2 then home. Neurological Status: aware and responsive. Pulmonary Status: breathing comfortably on room air Airway Control: returned to baseline unsupported. Cardiovascular Status: stable. Pain Management: clinically adequate Postoperative Hydration: acceptable. Intraoperative Events: no significant anesthesia events Post Operative Nausea/Vomiting Status: no significant post operative nausea or vomiting Recommendation: continue current plan of care. Anesthesia Observations No notable events were associated with this procedure. Documented by Yemi Jarvis APRN.[employer] [employer] REGISTERED NURSE 03/14/2024 10:32 AM EST SIGNATURE: Leeroy Joy MD PATIENT NAME: Raul Chong DATE: March 14, 2024 TIME: 10:59 AM CSN: [id number] [facility] ANES PRE-OPon 03-14-2024 ANES PRE-OP HNO ID: [id number] Author: LEEROY JOY MD Service: Anesthesiology Author Type: Anesthesiologist Type: Anesthesia Preprocedure Evaluation Filed: 03/14/2024 07:10 Note Text: ANESTHESIOLOGY DAY OF SURGERY NOTE : 1980 Procedure Information Date/Time: 03/14/24729 Procedure: PANNICULECTOMY (Abdomen) Location: [place] [address] / [facility] Surgeons: Jae Sterling MD Estimated body mass index is 27.49 kg/m? as calculated from the following: Height as of 02/15/24: 172.7 cm (5' 8). Weight as of 02/28/24: 82 kg (180 lb 12.4 oz). Most recent hematocrit and potassium results: Hematocrit 38.3 02/15/2024 Potassium 4.6 02/15/2024 Relevant Problems CARDIO (+) Migraines (+) SVT (supraventricular tachycardia) (HCC) GI (+) Gastroesophageal reflux disease without esophagitis NEURO-PSYCH (+) History of gastroesophageal reflux (GERD) (+) Migraines PULMONARY (+) Mild intermittent asthma (+) SOB (shortness of breath) I - PHYSICAL EVALUATION AIRWAY Patient intubated: No. Tracheostomy tube not present Mallampati: I. TM distance: >3 FB. Neck ROM: full ROM without neurological symptoms. Mouth opening: adequate. Short neck: no. Thick neck: no DENTAL Normal dental observations. Dental findings: teeth intact. II - ANESTHESIA PLAN ASA Score: 2 Anesthetic Plan: general Airway type: ETT The patient is not a current smoker. NPO Status: adequate Beta Robbie Monitoring Plan Monitoring plan: standard ASA. Post Procedure Analgesic Plan Postoperative analgesic plan: parenteral or oral opioids and multimodal analgesia. Informed Consent Anesthetic risks, benefits, alternatives, personnel and consent discussed: yes. Patient / Responsible Constitution Party agrees to proceed: yes Patient / Surrogate agrees to blood products: blood products not planned DNR status not reviewed with patient and/or family prior to surgery. Significant changes in the patient condition since the History and Physical, not otherwise documented in primary service progress note: no. Potential Anesthesia issues that may suggest increased risk of complications or contraindication to planned procedure: none. Discussed the possibility of lip / dental damage: yes Vitals Value Taken Time BP 111/64 03/14/24 0708 Pulse Resp 18 03/14/24 0708 Temp 36.7 ?C (98.1 ?F) 03/14/24 0708 SpO2 100 % 03/14/24 0708 Facility-Administered Medications as of 03/14/2024 Medication Dose Route Frequency acetaminophen 1,000 mg tab(s) (TYLENOL) 1,000 mg ORAL Pre-Op Once promethazine 12.5 mg tab(s) (PHENERGAN) 12.5 mg ORAL Pre-Op Once scopolamine (delivers 1 mg over 3 days) 1 Patch (TRANSDERM-SCOP) 1 Patch TRANSDERMAL ONCE scopolamine - VERIFY patch OTHER q 8 H [START ON 03/15/2024] scopolamine - REMOVE PATCH OTHER ONCE lidocaine (PF) 10 mg/mL (1 %) 1-2 mg injection (XYLOCAINE) 0.1-0.2 mL INTRADERMAL PRN NaCl 0.9% iv flush bag 20 mL INTRAVENOUS PRN ceFAZolin 2 g in dextrose (iso-osmotic) 50 mL (ANCEF,KEFZOL) 2 g INTRAVENOUS Pre-Op Once Outpatient Medications as of 03/14/2024 Medication Sig pregabalin (LYRICA) 75 mg capsule Take 1 capsule by mouth once daily for 180 days. ferrous sulfate (IRON) 325 mg (65 mg iron) tablet Take 325 mg by mouth once daily. valACYclovir (VALTREX) 500 mg tablet Take 4 tablets twice daily X 1 day. Then start one tablet by mouth daily thereafter. cyanocobalamin (VITAMIN B-12) 100 mcg tab Take 100 mcg by mouth once daily. ergocalciferol, vitamin D2, (VITAMIN D2 ORAL) Take by mouth. MULTIVITAMIN NO.43-IRON-FA ORAL Take by mouth. acetaminophen (TYLENOL) 500 mg tablet Take 2 tablets by mouth every 6 hours for 5 days, THEN 1-2 tablets every 6 hours as needed for pain for up to 10 days. ondansetron (ZOFRAN) 4 mg tablet Take 1 tablet by mouth every 8 hours as needed for nausea/vomiting for up to 5 days. senna (SENOKOT) 8.6 mg tab Take 1 tablet by mouth two times a day as needed for constipation for up to 15 days. oxyCODONE IR (ROXICODONE) 5 mg immediate release tablet Take 1 tablet by mouth every 6 hours as needed for pain for up to 5 days. calcium carbonate 400 mg (1,000 mg) chew Take 1,000 mg by mouth once daily. SUMAtriptan (IMITREX) 100 mg tablet Take 1 tablet (100 mg) by mouth as needed. START AT ONSET OF HEADACHE. MAY REPEAT DOSE AFTER 2 HOURS. albuterol (PROVENTIL) 2.5 mg /3 mL (0.083 %) nebulizer solution Use 3 mL via nebulizer every 4 hours as needed for wheezing/shortness of breath. I have interviewed and examined the patient. I have reviewed the medical record and/or the pre-anesthesia evaluation, pertinent labs, and test results. This contains updated information obtained within 48 hours of Surgery/Procedure. SIGNATURE: Leeroy Joy MD PATIENT NAME: Raul Chong DATE: March 14, 2024 TIME: 7:09 AM CSN: [id number] [facility] BRIEF OP NOTon 03-14-2024 BRIEF OP NOT HNO ID: [id number] Author: LACI BOOKER MD Service: Plastic Surgery Author Type: Resident Type: Brief Op Note Filed: 03/14/2024 10:18 Note Text: PLASTIC AND RECONSTRUCTIVE SURGERY BRIEF OPERATIVE NOTE LOG ID: [id number] Surgery/Procedure Date: 03/14/2024 Incision/Procedure Start Time: 8:19 AM Incision Close/Procedure End Time: 10:14 AM Surgeon(s)/Proceduralist(s ) and Field Service Poultry Technician(s): Surgeons and Role: * Jae Streling MD - Primary * Demetrio Russ MD - Resident - Assisting * Laci Booker MD - Resident - Assisting No Additional Staff Procedure(s): Panniculectomy Anesthesia: General Findings: Abdominal pannus Estimated Blood Loss: 50 mL Urine Output: Not Measured Drains: Abdomen: DERRICK x1 Specimens: None Implants: None Complications: None Pre-Op/Pre-Procedure Diagnosis: Abdominal pannus Post-Op/Post-Procedure Diagnosis: Same Post-operative Plan: Discharge home SIGNATURE: Laci Booker MD, MPH PATIENT NAME: Raul Chong DATE: March 14, 2024 TIME: 10:17 AM PAGER/CONTACT #: [phone] [facility] HISTORY PHYSICALon HISTORY PHYSICAL HNO ID: [id number] Author: JEA STERLING MD Service: Plastic Surgery Author Type: Resident Type: H&P Filed: 03/18/2024 10:06 Note Text: -- Attestation signed by Jae Sterling MD at 03/18/2024 10:06 AM UPDATED HISTORY AND PHYSICAL EXAMINATION SERVICE DATE: 03/14/2024 Participation of a fellow, resident, medical student, or advanced practice provider student in performing the sensitive examination was discussed with the patient or authorized volunteer patient representative. The patient or authorized volunteer patient representative has agreed to proceed with the sensitive examination. (Sensitive examination includes inspection and/or palpation of the breasts, pelvis, prostate and anorectal regions) PHYSICAL EXAM MUST BE COMPLETED ON ADMISSION The History and Physical (completed in the past 30 days) has been reviewed and the patient has been examined. The contents accurately reflect the patient's condition with the following additions or revisions since the HANDP was completed. Examination indicates no changes. This HANDP can be found in the attached. SIGNATURE: Jae Sterling MD PATIENT NAME: Raul Chong DATE: March 18, 2024 TIME: 10:06 AM -- UPDATED HISTORY AND PHYSICAL EXAMINATION SERVICE DATE: 03/14/24 PHYSICAL EXAM MUST BE COMPLETED ON ADMISSION The History and Physical (completed in the past 30 days) has been reviewed and the patient has been examined. The contents accurately reflect the patient's condition with the following additions or revisions since the HANDP was completed. Examination indicates no changes. Cardiovascular: RRR. Normal S1 and S2 Pulmonary: CTAB. No signs of respiratory distress This HANDP can be found in the Electronic Medical Record. Laci Booker MD, MPH Plastic Surgery P: [id number] After 6 pm and on-weekends, please page [phone] (on-call plastic surgery) [facility] OPERATIVE NOon 03-14-2024 OPERATIVE NO HNO ID: [id number] Author: JAE STERLING MD Service: Plastic Surgery Author Type: Physician Type: Operative Report Filed: 03/14/2024 15:17 Note Text: PLASTIC SURGERY--OPERATIVE REPORT LOG ID: [id number] Surgery/Procedure Date: 03/14/2024 Incision/Procedure Start Time: 8:19 AM Incision Close/Procedure End Time: 10:14 AM Surgeon(s)/Proceduralist(s ) and Field Service Poultry Technician(s): Surgeons and Role: * Jae Sterling MD - Primary * Demetrio Russ MD - Resident - Assisting * Laci Booker MD - Resident - Assisting No Additional Staff Preoperative Diagnosis: Abdominal laxity and redundant skin and soft tissue Postoperative Diagnosis: Abdominal laxity and redundant skin and soft tissue Procedure Performed: Panniculectomy Anesthesia: General Estimated Blood Loss: 100 cc Specimens: Excised tissue to surgical pathology. Drains: x 1 (15 Swedish Shay) Complications: None. Disposition: To recovery room in stable condition with spontaneous respirations. Justification for Procedure: Ms. Chong is a 43 year old female who is status post major weight loss with chronic panniculitis and presents today for the above-named procedure. Risks, benefits, and alternatives of surgical intervention have been discussed with the patient. She has had an opportunity to ask questions, expressed understanding, and has agreed to proceed. Procedure in Detail: The patient was seen in the holding area and marked in the standing position. The operative plan was reviewed and agreed upon. Intravenous antibiotics were administered and sequential compression devices were placed on the bilateral lower extremities. She was taken to the operating room, placed on the operating room table using comfortable OR position technique and padding. General anesthesia was administered and she was prepped and draped in the supine position with the arms adducted. We then turned our attention to the panniculectomy. The markings made in the holding area were reinforced and the dermis was injected with local anesthetic. The infrapannicular incision was performed with a #15 scalpel and dissection proceeded with electrocautery. The fascia was identified and preserved. Dissection proceeded in a superior fashion. The umbilicus was identified and preserved. It was freed on its stalk and a 2-0 silk suture was placed at the 12 o'clock position for use later in the procedure. We continued the dissection to the bilateral sub-costal margins and xiphoid process. Along the way perforators were encountered. These were ligated and hemostasis was achieved with electrocautery and observed. Local anesthetic was injected in and around rectus sheath with marcaine. The amount of skin to be resected was evaluated. This was consistent with preoperative markings. The abdominal apron was debrided with a #15 scalpel and electrocautery. Hemostasis was achieved and observed. All instruments needle and sponge counts were correct. one #15 round drain was placed and brought out through the lateral portions of the wounds and secured with 3-0 Nylon sutures. the upper abdominal flap was plicated with tension relieving 3-0 PDS. The wound was then closed with a combination of 3-0 PDS suture in the scarpas as well as the dermis and 4-0 Monocryl as a running subcuticular. The umbilicus was then matured in a position consistent with markings and palpation and inset with 3-0 PDS and 5-0 chromic. Silvadene was placed on all wounds and nitro paste on the umbilicus. She was turned back to anesthesia, extubated and placed in a hospital bed in the semi-Echavarria?s position. She was taken to the recovery room in stable condition with spontaneous respirations and will be admitted to the hospital and followed by the plastic surgical team. I performed the entire procedure with assistance with residents as listed. SIGNATURE: Jae Sterling MD PATIENT NAME: Raul Chong DATE: March 14, 2024 TIME: 3:12 PM PAGER/CONTACT #: [facility] SURGICAL PATHOLOGYon [phone] CASE REPORT [facility] Comment on above: Order Comment: Speci men Type: TISSUE SPECIMENOrdering Facility: [facility] Address: [address] [place] [address] Result Comment: Surg [facility] Pathology Report Case: [id number] Authorizing Provider: Jae Sterling MD Collected: 03/14/2024 08:53 AM Ordering Location: Ambulatory Surgery Received: 03/14/2024 10:00 AM Pathologist: Jesus Singh MD Specimen: Pannus, Abdomen pannus Performed By: #### S ####[facility] [id number] [place] [address] [place] CLINICAL HISTORY [facility] Comment on above: Order Comment: Speci men Type: TISSUE SPECIMENOrdering Facility: [facility] Address: [address] [place] [address] Result Comment: Pre- op diagnosis: Abdominal pannus [E65] Loose skin [L98.7] Rash [R21] Dermatitis [L30.9] Intertrigo [L30.4] Performed By: #### S ####[facility] [id number] [address] STATES OF [facility] FINAL DIAGNOSIS [facility] Comment on above: Order Comment: Speci men Type: TISSUE SPECIMENOrdering Facility: [facility] Address: [address] [place] [address] Result Comment: Soft tissue, abdominal pannus, resection: - Skin with abundant subcutaneous adipose tissue. Performed By: #### S ####[facility] [id number] [address] STATES OF [facility] FINAL PERFORMING LAB Normal [facility] Comment on above: Order Comment: Speci men Type: TISSUE SPECIMENOrdering Facility: [facility] Address: [address] [place] [address] Result Comment: Diag nostic interpretation performed at: [facility], [address] [place] [address] CLIA# [id number] Housefellow: Patrick Smith MD Performed By: #### S ####[facility] [id number] [address] STATES OF [facility] GROSS DESCRIPTION A. Pannus Normal [facility] Comment on above: Order Comment: Speci men Type: TISSUE SPECIMENOrdering Facility: [facility] Address: [address] [place] [address] Result Comment: Rece ived in formalin, labeled abdomen pannus, is a 2129.1 g, 47 x 19.5 x 4.5 cm aggregate of unoriented yellow-pink, lobulated, fibrofatty tissue segments with attached sapp wrinkled skin. The skin surface is grossly unremarkable. Sectioning reveals approximately 75% fatty breast tissue with approximately 25% dense white-pink fibrous tissue. No lesions are identified. Refrigeration Repair Supervisor sections to include skin are submitted in A1. KSZ March 14, 2024 4:32 PM Gross examination performed at [facility], [address] [place] [address] Performed By: #### S ####[facility] [id number] [id number] [address] [place] NICOTINE/COTININEOrdered By: Nabor Cheatham on 03-13-2024 Cotinine [Mass/Vol] ng/mL NINF - 2 ng/mL [facility] Comment on above: Active tobacco produ ct user: Nicotine concentration: 30 - 50 ng/mL Cotinine concentration: 200 - 800 ng/mL Passive exposure to tobacco: Nicotine concentration: < 2 ng/mL Cotinine concentration: < 8 ng/mL Unexposed non-tobacco user or abstinent user for > 2 weeks: Nicotine concentration: < 2 ng/mL Cotinine concentration: < 2 ng/mL This test was developed, and its performance characteristics determined by the [facility] Department of Pathology and Laboratory Medicine. It has not been cleared or approved by the FDA. The [facility] Department of Pathology and Laboratory Medicine is regulated under CLIA as qualified to perform high-complexity testing. This test is used for clinical purposes. It should not be regarded as investigational or for research. Interpretation and review of laboratory results Normal [facility] Nicotine [Mass/Vol] ng/mL NINF - 2 ng/mL [facility] CNOVon 03-10-2024 CNOV Office Visit (PLASST ) -- RAUL CHONG ([id number]) 1980 F Date Time Provider Department 03/10/24 11:30 AM JAE STERLING During your visit today, we recorded the following information about you: Jae Sterling MD 03/17/2024 2:13 PM Signed Plastic Surgery Note CC: pre op HPI: Raul Chong is a 43 year old female who presents for pre op for panniculectomy, she is scheduled 03/14/2024. Patient is s/p Date of Surgery: 10/01/21 Surgery: Laparoscopic gastric bypass Time Postop: 2 years, 5 months Highest weight: 424 lbs Current weight: 180 lbs Denies history of abdominal hernia. Patient has history of abdominal surgery: gallbladder surgery, gastric bypass, and 2 c-sections Hx bleeding/clotting: denies Hx recurrent miscarriages: denies Hx smoking: quit vaping 6 weeks ago, 3 weeks ago vaped for a few days. Nicotine labs from [facility] not complete at this time Pt was seen for PACC and cleared but pt recently positive with influenza A 02/28/2024 seen in [facility] and prescribed Tamiflu. HISTORIES PAST MEDICAL HISTORY Diagnosis Date Autoimmune disease (HCC) Degeneration of intervertebral disc, site unspecified Depression Migraines Mild intermittent asthma Obesity Osteoarthritis of both knees Plantar fasciitis Psoriasis PAST SURGICAL HISTORY Procedure Laterality Date ADENOIDECTOMY PRIMARY Adenoidectomy DELIVERY ONLY , low cervical LAPAROSCOPY SURG CHOLECYSTECTOMY 2013 PAST SURGICAL HISTORY OF Bilateral arthoscopy to ankles, scar tissue removal and tendon lengthening TONSILLECTOMY PRIMARY/SECONDARY Tonsillectomy Current Outpatient Medications on File Prior to Visit Medication Sig Nebulizer Accessories kit 1 Units once daily as needed. albuterol (PROVENTIL) 2.5 mg /3 mL (0.083 %) nebulizer solution Use 3 mL via nebulizer every 4 hours as needed for wheezing/shortness of breath. Use over 5-15minutes. sertraline (ZOLOFT) 50 mg tablet Take 1 tablet by mouth once daily. hydrOXYzine HCl (ATARAX) 25 mg tablet Take 1 tablet by mouth three times a day as needed for itching/rash. pregabalin (LYRICA) 75 mg capsule Take 1 capsule by mouth once daily for 180 days. calcium carbonate 400 mg (1,000 mg) chew Take 1,000 mg by mouth once daily. ferrous sulfate (IRON) 325 mg (65 mg iron) tablet Take 325 mg by mouth once daily. valACYclovir (VALTREX) 500 mg tablet Take 4 tablets twice daily X 1 day. Then start one tablet by mouth daily thereafter. SUMAtriptan (IMITREX) 100 mg tablet Take 1 tablet (100 mg) by mouth as needed. START AT ONSET OF HEADACHE. MAY REPEAT DOSE AFTER 2 HOURS. cyanocobalamin (VITAMIN B-12) 100 mcg tab Take 100 mcg by mouth once daily. ergocalciferol, vitamin D2, (VITAMIN D2 ORAL) Take by mouth. MULTIVITAMIN NO.43-IRON-FA ORAL Take by mouth. albuterol (PROVENTIL) 2.5 mg /3 mL (0.083 %) nebulizer solution Use 3 mL via nebulizer every 4 hours as needed for wheezing/shortness of breath. No current facility-administered medications on file prior to visit. Allergies: ALLERGIES Allergen Reactions Gabapentin Other: See Comments Prednisone Mental Status Change Lexapro [Escitalopr* Mental Status Change Severe moustapha Tree And Shrub Poll* Other: See Comments Topamax [Topiramate] Other: See Comments anxiety FAMILY HISTORY Problem Relation Age of Onset Diabetes Maternal Grandmother Diabetes Maternal Uncle Social History Tobacco Use Smoking status: Former Current packs/day: 0.00 Average packs/day: 0.3 packs/day for 24.0 years (6.0 ttl pk-yrs) Types: Cigarettes Start date: 03/19/1990 Quit date: 2014 Years since quittin.0 Smokeless tobacco: Never Tobacco comments: Quit in 2014, does vape daily Vaping Use Vaping status: current everyday user Start date: 08/10/2023 Substances: Nicotine Devices: Disposable Substance Use Topics Alcohol use: Not Currently Comment: rarely Drug use: No REVIEW OF SYSTEMS As above General: No weight loss, fever, chills, malaise Cardiac: No CP, palpitations, or leg swelling Respiratory: No cough or SOB GI: No N/V or diarrhea, no blood in stool : No burning or frequency with urination, no blood in urine Hematology: No blood thinners All other reviewed and negative other than HPI. PHYSICAL EXAM: LMP 02/26/2024 (Within Days) GEN: Well appearing, alert, in no acute distress, well-hydrated, well nourished. No change in exam Assessment: Raul Chong is a 43 year old female who presents for pre op of panniculectomy. Scheduled for 03/14/2024 for Panniculectomy Nicotine testing previously ordered, to be done today Plan: Wait for testing results prior to surgery The patient was seen with Alexia Brian RN who performed the Review of Systems and Past/Family/Social History. I have reviewed these and agree with her findings. The History and (more content not included)... [facility] NICOTINE/COTININEon 03-10-19 Cotinine [Mass/Vol] <2 Normal <2 [facility] Comment on above: Order Comment: Naa covarrubias Type: BLOOD SPECIMEN Ordering Facility: [facility] Address: [address] [place] [address] Result Comment: Acti ve tobacco product user: Nicotine concentration: 30 - 50 ng/mL Cotinine concentration: 200 - 800 ng/mL Passive exposure to tobacco: Nicotine concentration: < 2 ng/mL Cotinine concentration: < 8 ng/mL Unexposed non-tobacco user or abstinent user for > 2 weeks: Nicotine concentration: < 2 ng/mL Cotinine concentration: < 2 ng/mL This test was developed, and its performance characteristics determined by the [facility] Department of Pathology and Laboratory Medicine. It has not been cleared or approved by the FDA. The [facility] Department of Pathology and Laboratory Medicine is regulated under CLIA as qualified to perform high-complexity testing. This test is used for clinical purposes. It should not be regarded as investigational or for research. Performed By: #### N ICOT #### [facility] CLIA [id number] [address] [place] [address] [place] Nicotine [Mass/Vol] <2 Normal <2 [facility] Comment on above: Order Comment: Naa covarrubias Type: BLOOD SPECIMEN Ordering Facility: [facility] Address: [address] [place] [address] Performed By: #### N ICOT #### [facility] CLIA [id number] [address] [place] [address] [place] Orthopedic Visit Reporton Orthopedic Visit Report [facility] [address] [place] [address] OFFICE VISIT Date of Service: 03/08/24 MR#: [id number] Acct: [id number] Name: MOI FLEMINGANDRA DIANNA Rep #: [id number] : 1980 Provider: FRANCISCO Atkinson Age/Sex: 43/F Location: [facility] Status: Signed Intake Vital Signs 09/02/23 01:09 03/08/24 10:34 Height 91 ft 8.4 in 5 ft 8 in Weight: 184 lb 4 oz BMI 28.0 Intake Visit Reasons: CERVICAL SPINE Accompanied by: Self Allergies gabapentin (From Neurontin) Allergy (Verified 09/02/23 01:17) Swelling topiramate (From Topamax) Adverse Reaction (Mild, Verified 09/02/23 01:17) TINGLING prednisone Adverse Reaction (Verified 09/02/23 01:17) Other [facility] Medical History (Updated 03/08/24 @ 12:31 by FRANCISCO Atkinson) GERD (gastroesophageal reflux disease) Osteoarthritis Migraine GERD (gastroesophageal reflux disease) Arthritis Surgical History (Updated 03/08/24 @ 10:56 by Poonam Leahy) H/O section History of tonsillectomy History of ankle surgery History of foot surgery Hx of cholecystectomy History of Jacob-en-Y gastric bypass History of bilateral tubal ligation Family History (Updated 03/08/24 @ 10:56 by Poonam Leahy) Mother Breast cancer Father Arthritis Social History household members: significant other Smoking Status: Current every day smoker tobacco type: e-cigarettes substance use type: does not use HPI CERVICAL SPINE Details: This documentation accurately reflects the service provided and the decisions made by Magdalena kimbrough PA 03/08/24 1033. Part of today???s visit was documented by Giselle LOPEZ, acting as scribe. RAUL FLEMING is a 43 year old F NEW patient here today for neck pain. She has been having neck pain for about 5 months. She denies injury or previous surgery on the neck. Patient did have an MRI of her neck done at [facility] that was done on 02/08/24. She does get radiating pain into both arms greater on the left side and notices she has the pain when she wakes up in the morning. She does get numbness and tingling in both hands when she wakes up as well but greater on the left side. 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 She has seen Dr. Hernández in the past and had injections which she states was about 10-12 years ago. She has noticed over the past 5 months that she has a balance issues but is unsure what it is from. Since that da she hasn't any balance issues. Says that she has been dropping things out of her hands such as a pen and her phone. 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 She states that one of her biggest issues from her neck is that she gets headaches into the base of her skull. She gets headaches or migraines daily and they sometimes cause visual interruptions. c5-6 foraminal tight c4-7 disc height loss Ortho Exam General General: Yes no acute distress Neurologic: Yes alert and Yes oriented x3 Spine SPINE TESTING CERVICAL THORACIC LUMBAR Musculoskeletal Strength 0=absent - 5=normal Details: Neurological exam of the upper extremities shows 4+ power left self sealing fuel tank repairer strength, all other muscle groups show 5 power. Normal sensation across all dermatomes. No hyperreflexia. Mild midline tenderness and bilateral paraspinal tenderness, left worse than right. Coding Level of Care Code Off vis,new,level 4 Diagnoses Cervical radiculopathy M54.12 Degenerative disc disease, cervical M50.30 Assessment and Plan Assessment and Plan (1) Cervical radiculopathy: Status: Acute (2) Degenerative disc disease, cervical: Orders: Referrals Pain Management M54.12 - Radiculopathy, cervical region Medications: Discontinued hydrocodone-acetaminophen 5-325 mg Discontinued Reason: Pt no longer taking 1 TAB PO Q4H PRN 2 days PRN 10 TABLETS 0RF Pain S29.011A - Strain of muscle and tendon of front wall of thorax, initial encounter Plan Reviewed prior imaging from [facility]. Cervical xrays shows straightening of normal cervical lordosis and multilevel disc height loss. Cervical MRI from 02/08/24 shows C4-5 moderate left foraminal stenosis. C5-6 trace degenerative retrolisthesis with severe right and moderate left foraminal stenosis. C6-7 severe right and moderate left foraminal stenosis. Explained imaging findings in detail. Discussed a C4-7 ACDF procedure with the patient. The the patient has a skin removal surgery scheduled for next week as she is preparing for and at this time does not wish to schedule another surgery. 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 She says if she does decide to have the surgery would be (more content not included)... [facility] (SAMIR) -- RAUL CHONG ([id number]) 1980 F Date Time Provider Department 03/02/24 MARY MOURA During your visit today, we recorded the following information about you: Mary Moura APRN.SAUSAGE GRINDER 03/02/2024 9:48 AM Signed FYI. Pt was seen for PACC and cleared but pt recently positive with influenza A 02/28/2024 seen in [facility] and prescribed Tamiflu. Pt is scheduled for Panniculectomy 03/14/2024 in [place]. Please advise if okay to proceed? Allergies As of Date: 03/02/2024 Noted Allergy Reaction GABAPENTIN 04/13/2014 14 - Other: See Comments PREDNISONE 04/18/2015 1 - Mental Status Change LEXAPRO (ESCITALOPRAM) 02/22/2024 1 - Mental Status Change Comments: Severe moustapha TREE AND SHRUB POLLEN 07/22/2023 14 - Other: See Comments TOPAMAX (TOPIRAMATE) 12/12/2016 14 - Other: See Comments Comments: anxiety Date Reviewed: 02/28/2024 Reviewed by: Makayla Lei LPN - Fully Assessed Reason for Visit: Pre-op Illness [Other] Prescriptions as of 07/14/2024 - pregabalin (LYRICA) 75 mg capsule Take 1 capsule by mouth once daily for 180 days. - valACYclovir (VALTREX) 500 mg tablet Take 4 tablets twice daily X 1 day. Then start one tablet by mouth daily thereafter. - Nebulizer Accessories kit 1 Units once daily as needed. - sertraline (ZOLOFT) 50 mg tablet Take 1 tablet by mouth once daily. - calcium carbonate 400 mg (1,000 mg) chew Take 1,000 mg by mouth once daily. - ferrous sulfate (IRON) 325 mg (65 mg iron) tablet Take 325 mg by mouth once daily. - SUMAtriptan (IMITREX) 100 mg tablet Take 1 tablet (100 mg) by mouth as needed. START AT ONSET OF HEADACHE. MAY REPEAT DOSE AFTER 2 HOURS. - cyanocobalamin (VITAMIN B-12) 100 mcg tab Take 100 mcg by mouth once daily. - ergocalciferol, vitamin D2, (VITAMIN D2 ORAL) Take by mouth. - MULTIVITAMIN NO.43-IRON-FA ORAL Take by mouth. Problem List As Of Date 03/02/2024 Noted Resolved Unspecified asthma(493.90) [J45.909] 06/01/2015 Pain [...] radiculopathy [M54.12] 2019 SVT (supraventricular tachycardia) (HCC) [I47.1*03/04/2021 Palpitations [R00.2] 03/04/2021 Chest pain [R07.9] 03/04/2021 SOB (shortness of breath) [R06.02] 03/04/2021 Degenerative joint disease involving multiple j*05/06/2021 Limited mobility [Z74.09] 05/06/2021 History of gastroesophageal reflux (GERD) [Z87.*05/06/2021 Morbid obesity due to excess calories (HCC) [E6*05/06/2021 Morbid obesity (HCC) [E66.01] 10/01/2021 History of gastric bypass [Z98.84] 02/18/2024 Encounter Status:Closed by MARY MOURA on 07/14/24 [facility] CNOVon 02-28-2024 [facility] -- RAUL CHONG ([id number]) 1980 F Date Time Provider Department 02/28/24 2:30 PM OCTAVIANO [facility] During your visit today, we recorded the following information about you: Temperature Pulse Respiration Blood pressure 100.4 degrees 84/minute 22/minute 103/69 Weight Last Period 82 kg 02/26/24 Octaviano Ayoub PA 02/28/2024 3:02 PM Signed This note was created using QuoVadister. Subjective Raul Chong is a 43 year old female. HPI 43-year-old female with PMH of asthma presents for concern for influenza. Patient states that her kids have influenza currently. She started getting body aches, fever, chills, cough, congestion this morning. She has not taken anything for symptoms. No other complaint. PAST MEDICAL HISTORY Diagnosis Date Autoimmune disease (HCC) Degeneration of intervertebral disc, site unspecified Depression Migraines Mild intermittent asthma Obesity Osteoarthritis of both knees Plantar fasciitis Psoriasis PAST SURGICAL HISTORY Procedure Laterality Date ADENOIDECTOMY PRIMARY Adenoidectomy DELIVERY ONLY , low cervical LAPAROSCOPY SURG CHOLECYSTECTOMY 2013 PAST SURGICAL HISTORY OF Bilateral arthoscopy to ankles, scar tissue removal and tendon lengthening TONSILLECTOMY PRIMARY/SECONDARY Tonsillectomy ALLERGIES Gabapentin, Prednisone, Lexapro [Escitalopram], Tree And Shrub Pollen, and Topamax [Topiramate] MEDICATIONS sertraline (ZOLOFT) 50 mg tablet Take 1 tablet by mouth once daily. hydrOXYzine HCl (ATARAX) 25 mg tablet Take 1 tablet by mouth three times a day as needed for itching/rash. pregabalin (LYRICA) 75 mg capsule Take 1 capsule by mouth once daily for 180 days. calcium carbonate 400 mg (1,000 mg) chew Take 1,000 mg by mouth once daily. ferrous sulfate (IRON) 325 mg (65 mg iron) tablet Take 325 mg by mouth once daily. valACYclovir (VALTREX) 500 mg tablet Take 4 tablets twice daily X 1 day. Then start one tablet by mouth daily thereafter. SUMAtriptan (IMITREX) 100 mg tablet Take 1 tablet (100 mg) by mouth as needed. START AT ONSET OF HEADACHE. MAY REPEAT DOSE AFTER 2 HOURS. cyanocobalamin (VITAMIN B-12) 100 mcg tab Take 100 mcg by mouth once daily. ergocalciferol, vitamin D2, (VITAMIN D2 ORAL) Take by mouth. MULTIVITAMIN NO.43-IRON-FA ORAL Take by mouth. albuterol (PROVENTIL) 2.5 mg /3 mL (0.083 %) nebulizer solution Use 3 mL via nebulizer every 4 hours as needed for wheezing/shortness of breath. oseltamivir (TAMIFLU) 75 mg capsule Take 1 capsule by mouth two times a day for 5 days. albuterol (PROVENTIL) 2.5 mg /3 mL (0.083 %) nebulizer solution Use 3 mL via nebulizer every 4 hours as needed for wheezing/shortness of breath. Use over 5-15minutes. Nebulizer Accessories kit 1 Units once daily as needed. FAMILY HISTORY Problem Relation Age of Onset Diabetes Maternal Grandmother Diabetes Maternal Uncle Social History Tobacco Use Smoking status: Former Current packs/day: 0.00 Average packs/day: 0.3 packs/day for 24.0 years (6.0 ttl pk-yrs) Types: Cigarettes Start date: 03/19/1990 Quit date: 2015 Years since quittin.0 Smokeless tobacco: Never Tobacco comments: Quit in 2014, does vape daily Vaping Use Vaping status: current everyday user Start date: 08/10/2023 Substances: Nicotine Devices: Disposable Substance Use Topics Alcohol use: Not Currently Comment: rarely Drug use: No Review of Systems Constitutional: Positive for chills and fever. HENT: Positive for congestion. Negative for ear pain and sore throat. Respiratory: Positive for cough. Negative for shortness of breath. Cardiovascular: Negative for chest pain. Gastrointestinal: Negative for diarrhea and vomiting. Objective BP 103/69 Pulse 84 Temp (!) 38 ?C (100.4 ?F) Resp 22 Wt 82 kg (180 lb 12.4 oz) LMP 02/26/2024 (Within Days) SpO2 98% BMI 27.49 kg/m? Physical Exam Vitals and nursing note reviewed. Constitutional: General: She is not in acute distress. Appearance: Normal appearance. She is not toxic-appearing. HENT: Right Ear: Tympanic membrane and ear canal normal. Left Ear: Tympanic membrane and ear canal normal. Nose: Nose normal. Mouth/Throat: Mouth: Mucous membranes are moist. Eyes: Conjunctiva/sclera: Conjunctivae normal. Cardiovascular: Rate and Rhythm: Normal rate and regular rhythm. Pulmonary: Effort: Pulmonary effort is normal. Breath sounds: Normal breath sounds. No wheezing, rhonchi or rales. Skin: General: Skin is warm and dry. Neurological: Mental Status: She is alert. Assessment and Plan ASSESSMENT/PLAN: 1. Flu-like symptoms - ICD9: 780.99, ICD10: R68.89 (primary diagnosis) - INFLUENZA AANDB MOLECULAR (POC)-positive for influenza A. 2. Influenza A - ICD9: 487.1, ICD10: J10.1 -Rx for Tamiflu. Normal kidney function on labs e (more content not included)... Normal [facility] INFLUENZA A&B MOLECULAR (POC )on 02-28-2024 Flu A (POCT) Positive Abnormal Negative [facility] Comment on above: Location:[facility], [address] [place] [address], [place], [address] Interpretation and review of laboratory results Abnormal [facility] Procedural Control Valid [facility] Location:[facility], [facility], [place], [address] [facility] POINT OF CARE [facility] Michael 02-23-2024 CNPN Telephone (NAVWST) -- RAUL CHONG ([id number]) 1980 F Date Time Provider Department 02/23/24 ROLA UMANZOR During your visit today, we recorded the following information about you: Rola Umanzor, AIR CONTROL/ANTI AIR WARFARE OFFICER 02/23/2024 11:10 AM Signed Sw left message for patient to return call to discuss housing resource needs. ErnaOscarin, AIR CONTROL/ANTI AIR WARFARE OFFICER 02/25/2024 1:01 PM Signed Sw spoke with patient and she reports that she is at home and has plenty of family members that she can stay with if needed. No other social service needs at this time. This Sw noted that if patient has any other needs to feel free to reach back out to this SW. Allergies As of Date: 02/23/2024 Noted Allergy Reaction GABAPENTIN 04/13/2014 14 - Other: See Comments PREDNISONE 04/18/2015 1 - Mental Status Change LEXAPRO (ESCITALOPRAM) 02/22/2024 1 - Mental Status Change Comments: Severe moustapha TREE AND SHRUB POLLEN 07/22/2023 14 - Other: See Comments TOPAMAX (TOPIRAMATE) 12/12/2016 14 - Other: See Comments Comments: anxiety Date Reviewed: 02/22/2024 Reviewed by: Anna Nino APRN.SAUSAGE GRINDER - Fully Assessed Prescriptions as of 02/25/2024 - sertraline (ZOLOFT) 50 mg tablet Take 1 tablet by mouth once daily. - hydrOXYzine HCl (ATARAX) 25 mg tablet Take 1 tablet by mouth three times a day as needed for itching/rash. - pregabalin (LYRICA) 75 mg capsule Take 1 capsule by mouth once daily for 180 days. - calcium carbonate 400 mg (1,000 mg) chew Take 1,000 mg by mouth once daily. - ferrous sulfate (IRON) 325 mg (65 mg iron) tablet Take 325 mg by mouth once daily. - valACYclovir (VALTREX) 500 mg tablet Take 4 tablets twice daily X 1 day. Then start one tablet by mouth daily thereafter. - SUMAtriptan (IMITREX) 100 mg tablet Take 1 tablet (100 mg) by mouth as needed. START AT ONSET OF HEADACHE. MAY REPEAT DOSE AFTER 2 HOURS. - cyanocobalamin (VITAMIN B-12) 100 mcg tab Take 100 mcg by mouth once daily. - ergocalciferol, vitamin D2, (VITAMIN D2 ORAL) Take by mouth. - MULTIVITAMIN NO.43-IRON-FA ORAL Take by mouth. - albuterol (PROVENTIL) 2.5 mg /3 mL (0.083 %) nebulizer solution Use 3 mL via nebulizer every 4 hours as needed for wheezing/shortness of breath. Problem List As Of Date 02/23/2024 Noted Resolved Unspecified asthma(493.90) [J45.909] 06/01/2015 Pain [...] radiculopathy [M54.12] 2019 SVT (supraventricular tachycardia) (HCC) [I47.1*03/04/2021 Palpitations [R00.2] 03/04/2021 Chest pain [R07.9] 03/04/2021 SOB (shortness of breath) [R06.02] 03/04/2021 Degenerative joint disease involving multiple j*05/06/2021 Limited mobility [Z74.09] 05/06/2021 History of gastroesophageal reflux (GERD) [Z87.*05/06/2021 Morbid obesity due to excess calories (HCC) [E6*05/06/2021 Morbid obesity (HCC) [E66.01] 10/01/2021 History of gastric bypass [Z98.84] 02/18/2024 Encounter Status:Closed by ROLA UMANZOR on 02/25/24 [facility] CNOVon 02-22-2024 CNOV Office Visit ([facility]AMPWS ) -- RAUL COHNG ([id number]) 1980 F Date Time Provider Department 02/22/24 12:40 PM [facility] During your visit today, we recorded the following information about you: Pulse Respiration Blood pressure Weight 69/minute 16/minute 128/72 83 kg Anna Nino, KYLE.SAUSAGE GRINDER 02/22/2024 12:58 PM Signed This is a 43 year old female who presents today with: Patient presents with: Anxiety HISTORY OF PRESENT ILLNESS: Raul A Chong is a 43 year old female. Patient presents with: Anxiety Broke up with boyfriend, still there and tearful. Entire family is staying there. Worried about where she is going to go. Tearful Worried abut housing and finances PAST MEDICAL HISTORY: PAST MEDICAL HISTORY Diagnosis [...] and tendon lengthening TONSILLECTOMY PRIMARY/SECONDARY Tonsillectomy ALLERGIES Gabapentin, Prednisone, Tree And Shrub Pollen, and Topamax [Topiramate] MEDICATIONS Current Outpatient Medications Medication Sig pregabalin (LYRICA) 75 mg capsule Take 1 capsule by mouth once daily for 180 days. calcium carbonate 400 mg (1,000 mg) chew Take 1,000 mg by mouth once daily. ferrous sulfate (IRON) 325 mg (65 mg iron) tablet Take 325 mg by mouth once daily. valACYclovir (VALTREX) 500 mg tablet Take 4 tablets twice daily X 1 day. Then start one tablet by mouth daily thereafter. SUMAtriptan (IMITREX) 100 mg tablet Take 1 tablet (100 mg) by mouth as needed. START AT ONSET OF HEADACHE. MAY REPEAT DOSE AFTER 2 HOURS. cyanocobalamin (VITAMIN B-12) 100 mcg tab Take 100 mcg by mouth once daily. ergocalciferol, vitamin D2, (VITAMIN D2 ORAL) Take by mouth. MULTIVITAMIN NO.43-IRON-FA ORAL Take by mouth. albuterol (PROVENTIL) 2.5 mg /3 mL (0.083 %) nebulizer solution Use 3 mL via nebulizer every 4 hours as needed for wheezing/shortness of breath. No current facility-administered medications for this visit. FAMILY HISTORY Problem Relation Age of Onset Diabetes Maternal Grandmother Diabetes Maternal Uncle Social History Tobacco Use Smoking status: Former Current packs/day: 0.00 Average packs/day: 0.3 packs/day for 24.0 years (6.0 ttl pk-yrs) Types: Cigarettes Start date: 03/19/1990 Quit date: 2014 Years since quittin.0 Smokeless tobacco: Never Tobacco comments: Quit in 2014, does vape daily Vaping Use Vaping status: current everyday user Start date: 08/10/2023 Substances: Nicotine Devices: Disposable Substance Use Topics Alcohol use: Not Currently Comment: rarely Drug use: No EXAM: BP 128/72 Pulse 69 Resp 16 Wt 83 kg (183 lb) LMP 12/02/2023 (Within Days) SpO2 98% BMI 27.83 kg/m? PHYSICAL EXAM: Physical Exam Vitals reviewed. Constitutional: Appearance: Normal appearance. HENT: Head: Normocephalic. Cardiovascular: Rate and Rhythm: Normal rate and regular rhythm. Pulses: Normal pulses. Heart sounds: Normal heart sounds. Pulmonary: Effort: Pulmonary effort is normal. Breath sounds: Normal breath sounds. Musculoskeletal: General: Normal range of motion. Skin: General: Skin is warm and dry. Neurological: Mental Status: She is alert and oriented to person, place, and time. Psychiatric: Behavior: Behavior normal. Thought Content: Thought content normal. Judgment: Judgment normal. Comments: tearful LABS: ASSESSMENT/PLAN: 1. Homeless - ICD9: V60.0, ICD10: Z59.00 (primary diagnosis) Consult social services technician for help with housing - PRIMARY CARE SOCIAL WORK CONSULT 2. Anxiety with depression - ICD9: 300.4, ICD10: F41.8 Bad situation - SERTRALINE 50 MG TABLET daily - HYDROXYZINE HCL 25 MG TABLET 3 x day as needed Discussed treatment plan and patient voices understanding. Patient's questions answered appropriately. Medications and potential side effects were discussed and patient voices understanding. Return to the office as scheduled or as needed for worsening/no improvement. MELISSA Hernandez Jacqueline A, APRN.CNP 02/22/2024 12:57 PM Addendum - PRIMARY CARE SOCIAL WORK CONSULT - SERTRALINE 50 MG TABLET daily - HYDROXYZINE HCL 25 MG TABLET 3 x day as needed for anxiety - Give suicide hotline number Allergies As of Date: 02/22/2024 Noted Allergy Reaction GABAPENTIN 04/13/2014 14 - Other: See Comments PREDNISONE 04/18/2015 1 - Mental Status Change LEXAPRO (ESCITALOPRAM) 02/22/2024 1 - Mental Sta (more content not included)... [facility] RAUL [facility] ([id number]) 1980 F Date Time Provider Department 02/22/24 [facility] During your visit today, we recorded the following information about you: Marietta Harman LPN 02/22/2024 9:05 AM Signed Pt called in today to get a medication for stress and anxiety. Pt scheduled for an apt today 02-22-24 with provider/team. Pt reports her boyfriend broke up with her and kick her out along with her 15 year old son. Pt reports she feeling really stress and having some anxiety. Marietta Harman LPN Allergies As of Date: 02/22/2024 Noted Allergy Reaction GABAPENTIN 04/13/2014 14 - Other: See Comments PREDNISONE 04/18/2015 1 - Mental Status Change TREE AND SHRUB POLLEN 07/22/2023 14 - Other: See Comments TOPAMAX (TOPIRAMATE) 12/12/2016 14 - Other: See Comments Comments: anxiety Date Reviewed: 02/15/2024 Reviewed by: Mary Moura APRN.SAUSAGE GRINDER - Fully Assessed Reason for Visit: Future Appointment [256] Prescriptions as of 02/22/2024 - pregabalin (LYRICA) 75 mg capsule Take 1 capsule by mouth once daily for 180 days. - calcium carbonate 400 mg (1,000 mg) chew Take 1,000 mg by mouth once daily. - ferrous sulfate (IRON) 325 mg (65 mg iron) tablet Take 325 mg by mouth once daily. - valACYclovir (VALTREX) 500 mg tablet Take 4 tablets twice daily X 1 day. Then start one tablet by mouth daily thereafter. - SUMAtriptan (IMITREX) 100 mg tablet Take 1 tablet (100 mg) by mouth as needed. START AT ONSET OF HEADACHE. MAY REPEAT DOSE AFTER 2 HOURS. - cyanocobalamin (VITAMIN B-12) 100 mcg tab Take 100 mcg by mouth once daily. - ergocalciferol, vitamin D2, (VITAMIN D2 ORAL) Take by mouth. - MULTIVITAMIN NO.43-IRON-FA ORAL Take by mouth. - albuterol (PROVENTIL) 2.5 mg /3 mL (0.083 %) nebulizer solution Use 3 mL via nebulizer every 4 hours as needed for wheezing/shortness of breath. Problem List As Of Date 02/22/2024 Noted Resolved Unspecified asthma(493.90) [J45.909] 06/01/2015 Pain [...] radiculopathy [M54.12] 2019 SVT (supraventricular tachycardia) (HCC) [I47.1*03/04/2021 Palpitations [R00.2] 03/04/2021 Chest pain [R07.9] 03/04/2021 SOB (shortness of breath) [R06.02] 03/04/2021 Degenerative joint disease involving multiple j*05/06/2021 Limited mobility [Z74.09] 05/06/2021 History of gastroesophageal reflux (GERD) [Z87.*05/06/2021 Morbid obesity due to excess calories (HCC) [E6*05/06/2021 Morbid obesity (HCC) [E66.01] 10/01/2021 History of gastric bypass [Z98.84] 02/18/2024 Encounter Status:Closed by MARIETTA HARMAN on 02/22/24 Normal [facility] Comprehensive metabolic 2000 panelon 02-16-2024 Albumin [Mass/Vol] 4.0 g/dL 3.9 - 4.9 g/dL [facility] ALP [Catalytic activity/Vol] 77 U/L 34 - 123 U/L [facility] ALT [Catalytic activity/Vol] 23 U/L 7 - 38 U/L [facility] Anion gap [Moles/Vol] 11 mmol/L 8 - 15 mmol/L [facility] AST [Catalytic activity/Vol] 26 U/L 13 - 35 U/L [facility] Bilirubin [Mass/Vol] 0.3 mg/dL 0.2 - 1 .3 mg/dL [facility] Calcium [Mass/Vol] 8.9 mg/dL 8.5 - 10. 2 mg/dL [facility] Chloride [Moles/Vol] 104 mmol/L 98 - 10 7 mmol/L [facility] CO2 [Moles/Vol] 22 mmol/L 22 - 30 mmol/L [facility] Creatinine [Mass/Vol] 0.80 mg/dL 0.58 - 0.96 mg/dL [facility] GFR/1.73 sq M.predicted among non-blacks MDRD (S/P/Bld) [Vol rate/Area] 93 mL/min/{1.73_m2} - PINF [facility] Comment on above: Estimated Glomerular Filtration Rate (eGFR) is calculated using the 2020 CKD-EPI creatinine equation. This equation utilizes serum creatinine, sex, and age as parameters. The creatinine assay has traceable calibration to isotope dilution-mass spectrometry. Refer to KDIGO guidelines for clinical interpretation. In patients with unstable renal function, e.g. those with acute kidney injury, the eGFR may not accurately reflect actual GFR. Glucose [Mass/Vol] 82 mg/dL 74 - 99 mg/dL [facility] Comment on above: The [place] Diab[employer] Association (ADA) provides guidance for cutoff values for fasting glucose and random glucose. The ADA defines fasting as no caloric intake for at least 8 hours. Fasting plasma glucose results between 100 to 125 mg/dL indicate increased risk for diabetes (prediabetes). Fasting plasma glucose results greater than or equal to 126 mg/dL meet the criteria for diagnosis of diabetes. In the absence of unequivocal hyperglycemia, results should be confirmed by repeat testing. In a patient with classic symptoms of hyperglycemia or hyperglycemic crisis, random plasma glucose results greater than or equal to 200 mg/dL meet the criteria for diagnosis of diabetes. Reference: Standards of Medical Care in Diabetes 2016, [place] [employer]. Diabetes Care. 2016.39(Suppl 1). Interpretation and review of laboratory results Normal [facility] Potassium [Moles/Vol] 4.6 mmol/L 3.7 - 5.1 mmol/L [facility] Protein [Mass/Vol] 6.7 g/dL 6.3 - 8.0 g/dL [facility] Sodium [Moles/Vol] 137 mmol/L 136 - 144 mmol/L [facility] Urea nitrogen [Mass/Vol] 15 mg/dL 7 - 21 mg/dL [facility] CBC W Auto Differential pane l (Bld)on 02-15-2024 Basophils (Bld) [#/Vol] 0.04 10*3/uL NINF [facility] Basophils/100 WBC (Bld) 0.7 % [facility] Differential cell count method Nom (Bld) Auto [facility] Eosinophils (Bld) [#/Vol] 0.34 10*3/uL [facility] Eosinophils/100 WBC (Bld) 5.9 % [facility] Erythrocyte distribution width (RBC) [Ratio] 13.1 % 11.5 - 15.0 % [facility] Hematocrit (Bld) [Volume fraction] 38.3 % 36.0 - 46.0 % [facility] Hemoglobin (Bld) [Mass/Vol] 12.5 g/dL 11.5 - 15.5 g/dL [facility] Immature granulocytes (Bld) [#/Vol] [facility] Immature granulocytes/100 WBC (Bld) 0.2 % [facility] Lymphocytes (Bld) [#/Vol] 2.08 10*3/uL [facility] Lymphocytes/100 WBC (Bld) 36.1 % [facility] MCH (RBC) [Entitic mass] 28.8 pg 26.0 - 34.0 pg [facility] MCHC (RBC) [Mass/Vol] 32.6 g/dL 30.5 - 36.0 g/dL [facility] MCV (RBC) [Entitic vol] 88.2 fL 80.0 - 100.0 fL [facility] Monocytes (Bld) [#/Vol] 0.53 10*3/uL [facility] Monocytes/100 WBC (Bld) 9.2 % [facility] Neutrophils (Bld) [#/Vol] 2.76 10*3/uL [facility] Neutrophils/100 WBC (Bld) 47.9 % [facility] Nucleated RBC (Bld) [#/Vol] [facility] Nucleated RBC/100 WBC (Bld) [Ratio] 0.0 % /100 WBC [facility] Platelet mean volume (Bld) [Entitic vol] 10.5 fL 9.0 - 12.7 fL [facility] Platelets (Bld) [#/Vol] 233 10*3/uL [facility] RBC (Bld) [#/Vol] 4.34 10*6/uL 3.90 - 5.20 m/uL [facility] WBC (Bld) [#/Vol] 5.76 10*3/uL [facility] Basophils (Bld) [#/Vol] 0.04 10*3/uL Normal <0.11 [facility] Comment on above: Order Comment: Speci men Type: BLOOD SPECIMEN Ordering Facility: [facility] Address: [address] [place] [address] Performed By: #### 5 [id number] #### [facility] CLIA [id number] [address] [place] [address] [place] Basophils/100 WBC (Bld) 0.7 % Normal [facility] Comment on above: Order Comment: Speci men Type: BLOOD SPECIMEN Ordering Facility: [facility] Address: [address] [place] [address] Performed By: #### 5 [id number] #### [facility] CLIA [id number] [address] [place] [address] [place] Differential cell count method Nom (Bld) Auto [facility] Comment on above: Order Comment: Speci men Type: BLOOD SPECIMEN Ordering Facility: [facility] Address: [address] [place] [address] Performed By: #### 5 7021-8 #### [facility] CLIA [id number] [address] [place] [address] [place] Eosinophils (Bld) [#/Vol] 0.34 10*3/uL Normal <0.46 [facility] Comment on above: Order Comment: Speci men Type: BLOOD SPECIMEN Ordering Facility: [facility] Address: [address] [place] [address] Performed By: #### 5 7021-8 #### [facility] CLIA [id number] [address] [place] [address] [place] Eosinophils/100 WBC (Bld) 5.9 % Normal [facility] Comment on above: Order Comment: Speci men Type: BLOOD SPECIMEN Ordering Facility: [facility] Address: [address] [place] [address] Performed By: #### 5 7021-8 #### [facility] CLIA [id number] [address] [place] [address] [place] Erythrocyte distribution width (RBC) [Ratio] 13.1 % Normal 11.5-15.0 [facility] Comment on above: Order Comment: Speci men Type: BLOOD SPECIMEN Ordering Facility: [facility] Address: [address] [place] [address] Performed By: #### 5 7021-8 #### [facility] CLIA [id number] [address] [place] [address] [place] Hematocrit (Bld) [Volume fraction] 38.3 % Normal 36.0-46.0 [facility] Comment on above: Order Comment: Speci men Type: BLOOD SPECIMEN Ordering Facility: [facility] Address: [address] [place] [address] Performed By: #### 5 7021-8 #### [facility] CLIA [id number] [address] [place] [address] [place] Hemoglobin (Bld) [Mass/Vol] 12.5 g/dL Normal 11.5-15.5 [facility] Comment on above: Order Comment: Speci men Type: BLOOD SPECIMEN Ordering Facility: [facility] Address: [address] [place] [address] Performed By: #### 5 7021-8 #### [facility] CLIA [id number] [address] [place] [address] [place] Immature granulocytes (Bld) [#/Vol] 10*3/uL Normal <0.10 [facility] Comment on above: Order Comment: Speci men Type: BLOOD SPECIMEN Ordering Facility: [facility] Address: [address] [place] [address] Performed By: #### 5 7021-8 #### [facility] CLIA [id number] [address] [place] [address] [place] Immature granulocytes/100 WBC (Bld) 0.2 % Normal [facility] Comment on above: Order Comment: Speci men Type: BLOOD SPECIMEN Ordering Facility: [facility] Address: [address] [place] [address] Performed By: #### 5 7021-8 #### [facility] CLIA [id number] [address] [place] [address] [place] Lymphocytes (Bld) [#/Vol] 2.08 10*3/uL Normal 1.00-4.00 [facility] Comment on above: Order Comment: Speci men Type: BLOOD SPECIMEN Ordering Facility: [facility] Address: [address] [place] [address] Performed By: #### 5 7021-8 #### [facility] CLIA [id number] [address] [place] [address] [place] Lymphocytes/100 WBC (Bld) 36.1 % Normal [facility] Comment on above: Order Comment: Speci men Type: BLOOD SPECIMEN Ordering Facility: [facility] Address: [address] [place] [address] Performed By: #### 5 7021-8 #### [facility] CLIA [id number] [address] [place] [address] [place] MCH (RBC) [Entitic mass] 28.8 pg Normal 26.0-34.0 [facility] Comment on above: Order Comment: Speci men Type: BLOOD SPECIMEN Ordering Facility: [facility] Address: [address] [place] [address] Performed By: #### 5 7021-8 #### [facility] CLIA [id number] [address] [place] [address] [place] MCHC (RBC) [Mass/Vol] 32.6 g/dL Normal 30.5-36.0 [facility] Comment on above: Order Comment: Speci men Type: BLOOD SPECIMEN Ordering Facility: [facility] Address: [address] [place], [place] [id number] Performed By: #### 5 7021-8 #### [facility] CLIA [id number] [address] [place] [address] [place] MCV (RBC) [Entitic vol] 88.2 fL Normal 80.0-100.0 [facility] Comment on above: Order Comment: Speci men Type: BLOOD SPECIMEN Ordering Facility: [facility] Address: [address] [place] [address] Performed By: #### 5 7021-8 #### [facility] CLIA [id number] [address] [place] [address] [place] Monocytes (Bld) [#/Vol] 0.53 10*3/uL Normal <0.87 [facility] Comment on above: Order Comment: Speci men Type: BLOOD SPECIMEN Ordering Facility: [facility] Address: [address] [place] [address] Performed By: #### 5 7021-8 #### [facility] CLIA [id number] [address] [place] [address] [place] Monocytes/100 WBC (Bld) 9.2 % Normal [facility] Comment on above: Order Comment: Speci men Type: BLOOD SPECIMEN Ordering Facility: [facility] Address: [address] [place] [address] Performed By: #### 5 7021-8 #### [facility] CLIA [id number] [address] [place] [address] [place] Neutrophils (Bld) [#/Vol] 2.76 10*3/uL Normal 1.45-7.50 [facility] Comment on above: Order Comment: Speci men Type: BLOOD SPECIMEN Ordering Facility: [facility] Address: [address] [place] [address] Performed By: #### 5 7021-8 #### [facility] CLIA [id number] [address] [place] [address] [place] Neutrophils/100 WBC (Bld) 47.9 % Normal [facility] Comment on above: Order Comment: Speci men Type: BLOOD SPECIMEN Ordering Facility: [facility] Address: [address] [place] [address] Performed By: #### 5 7021-8 #### [facility] CLIA [id number] [address] [place] [address] [place] Nucleated RBC (Bld) [#/Vol] 10*3/uL Normal <0.01 [facility] Comment on above: Order Comment: Speci men Type: BLOOD SPECIMEN Ordering Facility: [facility] Address: [address] [place] [address] Performed By: #### 5 7021-8 #### [facility] CLIA [id number] [address] [place] [address] [place] Nucleated RBC/100 WBC (Bld) [Ratio] 0.0 /100 WBC Normal [facility] Comment on above: Order Comment: Speci men Type: BLOOD SPECIMEN Ordering Facility: [facility] Address: [address] [place] [address] Performed By: #### 5 7021-8 #### [facility] CLIA [id number] [address] [place] [address] [place] Platelet mean volume (Bld) [Entitic vol] 10.5 fL Normal 9.0-12.7 [facility] Comment on above: Order Comment: Speci men Type: BLOOD SPECIMEN Ordering Facility: [facility] Address: [address] [place] [address] Performed By: #### 5 7021-8 #### [facility] CLIA [id number] [address] [place] [address] [place] Platelets (Bld) [#/Vol] 233 10*3/uL Normal 150-400 [facility] Comment on above: Order Comment: Speci men Type: BLOOD SPECIMEN Ordering Facility: [facility] Address: [address] [place] [address] Performed By: #### 5 7021-8 #### [facility] CLIA [id number] [address] [place] [address] [place] RBC (Bld) [#/Vol] 4.34 10*6/uL Normal 3.90-5.20 [facility] Comment on above: Order Comment: Speci men Type: BLOOD SPECIMEN Ordering Facility: [facility] Address: [address] [place] [address] Performed By: #### 5 7021-8 #### [facility] CLIA [id number] [address] [place] [address] [place] WBC (Bld) [#/Vol] 5.76 10*3/uL Normal 3.70-11.00 [facility] Comment on above: Order Comment: Speci men Type: BLOOD SPECIMEN Ordering Facility: [facility] Address: [address] [place] [address] Performed By: #### 5 7021-8 #### [facility] CLIA [id number] [address] [place] [address] [place] CN[place] 02-15-2024 [facility] Telephone ([facility]) -- RAUL CHONG ([id number]) 1980 F Date Time Provider Department 02/15/24 MARY MOURA During your visit today, we recorded the following information about you: Norma Mcnamara LPN 02/15/2024 3:46 PM Signed Patient was scheduled for in person [facility]ACC appt at 3:20pm today. Patient did not check in for appt, called patient at [facility] to see if they were planning on coming. ASHLEY Gamino Jessica, LPN 02/15/2024 3:47 PM Signed Patient arrived at 3:45 and was seen. Norma Mcnamara LPN Allergies As of Date: 02/15/2024 Noted Allergy Reaction GABAPENTIN 04/13/2014 14 - Other: See Comments PREDNISONE 04/18/2015 1 - Mental Status Change TREE AND SHRUB POLLEN 07/22/2023 14 - Other: See Comments TOPAMAX (TOPIRAMATE) 12/12/2016 14 - Other: See Comments Comments: anxiety Date Reviewed: 11/27/2023 Reviewed by: Sully Mazariegos MA - Fully Assessed Prescriptions as of 02/15/2024 - pregabalin (LYRICA) 75 mg capsule Take 1 capsule by mouth once daily for 180 days. - calcium carbonate 400 mg (1,000 mg) chew Take 1,000 mg by mouth once daily. - ferrous sulfate (IRON) 325 mg (65 mg iron) tablet Take 325 mg by mouth once daily. - valACYclovir (VALTREX) 500 mg tablet Take 4 tablets twice daily X 1 day. Then start one tablet by mouth daily thereafter. - SUMAtriptan (IMITREX) 100 mg tablet Take 1 tablet (100 mg) by mouth as needed. START AT ONSET OF HEADACHE. MAY REPEAT DOSE AFTER 2 HOURS. - fexofenadine (LAKISHA ALLERGY) 180 mg tablet Take 1 tablet by mouth once daily. - norethindrone (AYGESTIN) 5 mg tablet Take 1 tablet by mouth twice daily for 7 days. - cyanocobalamin (VITAMIN B-12) 100 mcg tab Take 100 mcg by mouth once daily. - ergocalciferol, vitamin D2, (VITAMIN D2 ORAL) Take by mouth. - MULTIVITAMIN NO.43-IRON-FA ORAL Take by mouth. - albuterol (PROVENTIL) 2.5 mg /3 mL (0.083 %) nebulizer solution Use 3 mL via nebulizer every 4 hours as needed for wheezing/shortness of breath. - ammonium lactate (AMLACTIN) 12 % lotion apply to rash 2-3 times a day as needed Problem List As Of Date 02/15/2024 Noted Resolved Unspecified asthma(493.90) [J45.909] 06/01/2015 Pain [...] radiculopathy [M54.12] 2019 SVT (supraventricular tachycardia) (HCC) [I47.1*03/04/2021 Palpitations [R00.2] 03/04/2021 Chest pain [R07.9] 03/04/2021 SOB (shortness of breath) [R06.02] 03/04/2021 Degenerative joint disease involving multiple j*05/06/2021 Limited mobility [Z74.09] 05/06/2021 History of gastroesophageal reflux (GERD) [Z87.*05/06/2021 Morbid obesity due to excess calories (HCC) [E6*05/06/2021 Morbid obesity (HCC) [E66.01] 10/01/2021 Encounter Status:Closed by NORMA MCNAMARA on 02/15/24 Normal [facility] Comprehensive metabolic 2000 panelon 02-15-2024 Albumin [Mass/Vol] 4.0 g/dL Normal 3.9-4.9 [facility] Comment on above: Order Comment: Speci men Type: BLOOD SPECIMEN Ordering Facility: [facility] Address: [address] [place] [address] Performed By: #### 2 4323-8 #### [facility] CLIA [id number] [address] [place] [address] [place] ALP [Catalytic activity/Vol] 77 U/L Normal 34-123 [facility] Comment on above: Order Comment: Speci men Type: BLOOD SPECIMEN Ordering Facility: [facility] Address: [address] [place] [address] Performed By: #### 2 4323-8 #### [facility] CLIA [id number] [address] [place] [address] [place] ALT [Catalytic activity/Vol] 23 U/L Normal 7-38 [facility] Comment on above: Order Comment: Speci men Type: BLOOD SPECIMEN Ordering Facility: [facility] Address: [address] [place] [address] Performed By: #### 2 4323-8 #### [facility] CLIA [id number] [address] [place] [address] [place] Anion gap [Moles/Vol] 11 mmol/L Normal 8-15 [facility] Comment on above: Order Comment: Speci men Type: BLOOD SPECIMEN Ordering Facility: [facility] Address: [address] [place] [address] Performed By: #### 2 4323-8 #### [facility] CLIA [id number] [address] [place] [address] [place] AST [Catalytic activity/Vol] 26 U/L Normal 13-35 [facility] Comment on above: Order Comment: Speci men Type: BLOOD SPECIMEN Ordering Facility: [facility] Address: [address] [place] [address] Performed By: #### 2 4323-8 #### [facility] CLIA [id number] [address] [place] [address] [place] Bilirubin [Mass/Vol] 0.3 mg/dL Normal 0.2-1.3 [facility] Comment on above: Order Comment: Speci men Type: BLOOD SPECIMEN Ordering Facility: [facility] Address: [address] [place] [id number] Performed By: #### 2 4323-8 #### [facility] CLIA [id number] [address] [place] [address] [place] Calcium [Mass/Vol] 8.9 mg/dL Normal 8.5-10.2 [facility] Comment on above: Order Comment: Speci men Type: BLOOD SPECIMEN Ordering Facility: [facility] Address: [address] [place], [place] [address] Performed By: #### 2 4323-8 #### [facility] CLIA [id number] [address] [place] [address] [place] Chloride [Moles/Vol] 104 mmol/L Normal 98-107 [facility] Comment on above: Order Comment: Speci men Type: BLOOD SPECIMEN Ordering Facility: [facility] Address: [address] [place] [address] Performed By: #### 2 4323-8 #### [facility] CLIA [id number] [address] [place] [address] [place] CO2 [Moles/Vol] 22 mmol/L Normal 22-30 [facility] Comment on above: Order Comment: Speci men Type: BLOOD SPECIMEN Ordering Facility: [facility] Address: [address] [place], [place] [address] Performed By: #### 2 4323-8 #### [facility] CLIA [id number] [address] [place], [place] [id number] [place] Creatinine [Mass/Vol] 0.80 mg/dL Normal 0.58-0.96 [facility] Comment on above: Order Comment: Speci men Type: BLOOD SPECIMEN Ordering Facility: [facility] Address: [address] [place], [place] [address] Performed By: #### 2 4323-8 #### [facility] CLIA [id number] [address] [place], [place] [address] [place] Creatinine and Glomerular filtration rate.predicted panel (S/P/Bld) 93 mL/min/1.73m??? Normal >=60 [facility] Comment on above: Order Comment: Naa covarrubias Type: BLOOD SPECIMEN Ordering Facility: [facility] Address: [address] [place] [address] Result Comment: Lala mated Glomerular Filtration Rate (eGFR) is calculated using the 2020 CKD-EPI creatinine equation. This equation utilizes serum creatinine, sex, and age as parameters. The creatinine assay has traceable calibration to isotope dilution-mass spectrometry. Refer to KDIGO guidelines for clinical interpretation. In patients with unstable renal function, e.g. those with acute kidney injury, the eGFR may not accurately reflect actual GFR. Performed By: #### 2 4323-8 #### [facility] CLIA [id number] [address] [place] [address] [place] Glucose [Mass/Vol] 82 mg/dL Normal 74-99 [facility] Comment on above: Order Comment: Naa covarrubias Type: BLOOD SPECIMEN Ordering Facility: [facility] Address: [address] [place] [address] Result Comment: The [place] [employer] (ADA) provides guidance for cutoff values for fasting glucose and random glucose. The ADA defines fasting as no caloric intake for at least 8 hours. Fasting plasma glucose results between 100 to 125 mg/dL indicate increased risk for diabetes (prediabetes). Fasting plasma glucose results greater than or equal to 126 mg/dL meet the criteria for diagnosis of diabetes. In the absence of unequivocal hyperglycemia, results should be confirmed by repeat testing. In a patient with classic symptoms of hyperglycemia or hyperglycemic crisis, random plasma glucose results greater than or equal to 200 mg/dL meet the criteria for diagnosis of diabetes. Reference: Standards of Medical Care in Diabetes 2016, [place] [employer]. Diabetes Care. 2016.39(Suppl 1). Performed By: #### 2 4323-8 #### [facility] CLIA [id number] [address] [place] [address] [place] Potassium [Moles/Vol] 4.6 mmol/L Normal 3.7-5.1 [facility] Comment on above: Order Comment: Speci men Type: BLOOD SPECIMEN Ordering Facility: [facility] Address: [address] [place] [address] Performed By: #### 2 4323-8 #### [facility] CLIA [id number] [address] [place] [address] [place] Protein [Mass/Vol] 6.7 g/dL Normal 6.3-8.0 [facility] Comment on above: Order Comment: Speci men Type: BLOOD SPECIMEN Ordering Facility: [facility] Address: [address] [place] [address] Performed By: #### 2 4323-8 #### [facility] CLIA [id number] [address] [place] [address] [place] Sodium [Moles/Vol] 137 mmol/L Normal 136-144 [facility] Comment on above: Order Comment: Speci men Type: BLOOD SPECIMEN Ordering Facility: [facility] Address: [address] [place] [address] Performed By: #### 2 4323-8 #### [facility] CLIA [id number] [address] [place] [address] [place] Urea nitrogen [Mass/Vol] 15 mg/dL Normal 7-21 [facility] Comment on above: Order Comment: Speci men Type: BLOOD SPECIMEN Ordering Facility: [facility] Address: [address] [place] [address] Performed By: #### 2 4323-8 #### [facility] CLIA [id number] [address] [place], [place] [address] [place] HISTORY PHYSICALon HISTORY PHYSICAL HNO ID: [id number] Author: MARY MOURA APRN.CNP Service: ? Author Type: Nurse Practitioner Type: H&P Filed: 03/02/2024 09:48 Note Text: [facility] HISTORY AND PHYSICAL EXAMINATION SERVICE DATE: 02/15/2024 SERVICE TIME: 6:56 AM PRIMARY CARE PHYSICIAN: Maira Escamilla MD Assessment Patient has the following medical conditions which may affect ninfa-operative course: Migraines Assessment: rx as needed SVT (supraventricular tachycardia) (HCC) Assessment: hx, thought to be anxiety induced. Received cardiac evaluation 10/19/23 Zio patch results IRHYTHM FINDINGS: Patient had a min HR of 45 bpm, max HR of 150 bpm, and avg HR of 74 bpm. Predominant underlying rhythm was Sinus Rhythm. Slight P wave morphology changes were noted. 2 Supraventricular Tachycardia runs occurred, the run with the fastest interval lasting 4 beats with a max rate of 112 bpm, the longest lasting 9 beats with an avg rate of 92 bpm. Isolated SVEs were rare (<1.0%), SVE Couplets were rare (<1.0%), and SVE Triplets were rare (<1.0%). Isolated VEs were rare (<1.0%), VE Couplets were rare (<1.0%), and no VE Triplets were present. 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 supraventricular tachycardia documented by Holter monitor most of her palpitation is likely anxiety related due to sinus tachycardia in light of normal echocardiography normal treatment is recommended at this time if her symptoms become troublesome and lifestyle limiting we could consider small dose Follow-up in a yearly basis Mild intermittent asthma Assessment: albuterol as needed, former social smoker (vague hx given) Gastroesophageal reflux disease without esophagitis Assessment: controlled on rx History of gastric bypass Assessment: hx 2021 Amin Activity Status Index: METS: Climb a flight of stairs or walk up a hill (5.50 METs) DASI Score: 5.5 Patient denies any chest pain or undue shortness of breath with the above physical activity. Clinical Frailty Scale: 3. Well, with treated comorbid disease STOP-Bang Score: Denies snoring loudly Denies feeling tired, fatigued, or sleepy during the daytime Has not been observed to stop breathing or choking/gasping during sleep Denies having high blood pressure BMI less than or equal to 35 kg/m2 Patient 50 years old or younger Does not have a large neck Non-male patient STOP-Bang Score: 0 [id number] Score: Age: <65 Sex: female CHF history: No Hypertension history: No Stroke/TIA/thromboembolism history: No Vascular disease history: No Diabetes history: No [id number] Score: 1 ARISCAT Score: Age: <=50 Preoperative SpO2: 91-95% Respiratory infection in the last month: No Preoperative anemia: No Surgical incision: peripheral Duration of surgery: >3 hrs Emergency procedure: No ARISCAT Score: 31 ANESTHESIA FINDINGS: Intubation History: No history of difficult intubation Significant Anesthesia Considerations: none Airway History: No history of difficult airway I - PHYSICAL EVALUATION AIRWAY Patient intubated: No. Tracheostomy tube not present Mallampati: I. TM distance: >3 FB. Neck ROM: full ROM without neurological symptoms. Mouth opening: adequate. Short neck: no. Thick neck: no Hogan present: no Lip Bite Test: I Microretrognathia/Micronag thia/Recessed Chin: No DENTAL Dental findings: teeth intact. Additional comments: +crowns/back. II - ANESTHESIA PLAN Anesthetic Plan: other Beta Robbie Monitoring Plan Post Procedure Analgesic Plan Prepared for Surgery: optimally prepared for surgery, pending [see comment]. Labs-reviewed, okay to proceed-JL Pt recently positive for Influenza A (post PACC appt), TE to surgeon's office CONSULTS: Patient does not require consults for optimization at this time Planned Anesthetic: other anesthesia choice The Following Tests/Procedures Have Been Initiated: Orders Placed This Encounter >CBC + AUTO DIFF Standing Status: Future Number of Occurrences: 1 Standing Expiration Date: 05/16/2024 >CMP Standing Status: Future Number of Occurrences: 1 Standing Expiration Date: 05/16/2024 REASON FOR VISIT: Raul Chong is a 43 year old female who is scheduled for Procedure(s): PANNICULECTOMY (N/A) at the request of Jae Ferguson MD for consultation. My final recommendation will be communicated back to the requesting physician by way of shared medical record or letter. Subjective The patient has the following: COVID-19 Immunization Status Covid-19 Vaccine (Series Information) Completed 10/30/2023 Postponed until 10/29/2024 by Maira Escamilla MD (Declined at this time) 10/30/2023 Imm Admin: COVID-19 vaccine, age 12+ yr ([employer]) 04/26/2020 Imm Admin: COVID-19 original vaccine, age 12+ yr, monovalent ([employer] - PURPLE TOP) Only the first 3 history entries have been loaded, but more histor (more content not included)... [facility] CNOVon 11-27-2023 CNOV Office Visit ([facility] ) -- RAUL CHONG ([id number]) 1980 F Date Time Provider Department 11/27/23 9:[address] [facility] During your visit today, we recorded the following information about you: Temperature Pulse Blood pressure Weight 97.8 degrees 58/minute 115/74 87.2 kg Height Last Period 1.753 m 11/13/23 Jae Sterling MD 11/27/2023 3:43 PM Signed Plastic Surgery Note CC: pre op HPI: Raul Chong is a 43 year old female who presents for pre op for panniculectomy, previously seen by Bonny Henry, patient is ready to schedule surgery. Patient is s/p Date of Surgery: 10/01/21 Surgery: Laparoscopic gastric bypass Time Postop: 2 years, 2 months Highest weight: 424 lbs Current weight: 192 lbs Panniculus causes interference with activities of daily living such as bathing, dressing, and work Denies history of abdominal hernia. Patient has history of abdominal surgery: gallbladder surgery, gastric bypass, and 2 c-sections Hx bleeding/clotting: denies Hx recurrent miscarriages: denies Hx smoking: vapes nicotine currently HISTORIES PAST MEDICAL HISTORY Diagnosis Date Autoimmune disease (HCC) Degeneration of intervertebral disc, site unspecified Depression Migraines Mild intermittent asthma Obesity Osteoarthritis of both knees Plantar fasciitis Psoriasis PAST SURGICAL HISTORY Procedure Laterality Date ADENOIDECTOMY PRIMARY Adenoidectomy DELIVERY ONLY , low cervical LAPAROSCOPY SURG CHOLECYSTECTOMY 2013 PAST SURGICAL HISTORY OF Bilateral arthoscopy to ankles, scar tissue removal and tendon lengthening TONSILLECTOMY PRIMARY/SECONDARY Tonsillectomy pregabalin (LYRICA) 75 mg capsule Take 1 capsule by mouth once daily for 180 days. calcium carbonate 400 mg (1,000 mg) chew Take 1,000 mg by mouth once daily. ferrous sulfate (IRON) 325 mg (65 mg iron) tablet Take 325 mg by mouth once daily. valACYclovir (VALTREX) 500 mg tablet Take 4 tablets twice daily X 1 day. Then start one tablet by mouth daily thereafter. SUMAtriptan (IMITREX) 100 mg tablet Take 1 tablet (100 mg) by mouth as needed. START AT ONSET OF HEADACHE. MAY REPEAT DOSE AFTER 2 HOURS. fexofenadine (LAKISHA ALLERGY) 180 mg tablet Take 1 tablet by mouth once daily. (Patient not taking: Reported on 09/28/2023) norethindrone (AYGESTIN) 5 mg tablet Take 1 tablet by mouth twice daily for 7 days. (Patient not taking: Reported on 09/28/2023) cyanocobalamin (VITAMIN B-12) 100 mcg tab Take 100 mcg by mouth once daily. ergocalciferol, vitamin D2, (VITAMIN D2 ORAL) Take by mouth. MULTIVITAMIN NO.43-IRON-FA ORAL Take by mouth. albuterol (PROVENTIL) 2.5 mg /3 mL (0.083 %) nebulizer solution Use 3 mL via nebulizer every 4 hours as needed for wheezing/shortness of breath. ammonium lactate (AMLACTIN) 12 % lotion apply to rash 2-3 times a day as needed (Patient not taking: Reported on 09/28/2023) Allergies: ALLERGIES Allergen Reactions Gabapentin Other: See Comments Prednisone Mental Status Change Tree And Shrub Poll* Other: See Comments Topamax [Topiramate] Other: See Comments anxiety FAMILY HISTORY Problem Relation Age of Onset Diabetes Maternal Grandmother Diabetes Maternal Uncle Social History Tobacco Use Smoking status: Former Current packs/day: 0.00 Average packs/day: 0.3 packs/day for 24.0 years (6.0 ttl pk-yrs) Types: Cigarettes Start date: 03/19/1990 Quit date: 2015 Years since quittin.7 Smokeless tobacco: Never Tobacco comments: quit in 05/15 Vaping Use Vaping status: Never Used Substance Use Topics Alcohol use: Yes Comment: rarely Drug use: No REVIEW OF SYSTEMS As above General: No weight loss, fever, chills, malaise Cardiac: No CP, palpitations, or leg swelling Respiratory: No cough or SOB GI: No N/V or diarrhea, no blood in stool : No burning or frequency with urination, no blood in urine Hematology: No blood thinners All other reviewed and negative other than HPI. PHYSICAL EXAM: LMP 04/28/2023 (Approximate) GEN: Well appearing, alert, in no acute distress, well-hydrated, well nourished. EXT: Excess skin on lower extremities ABD: More excess skin vertically Panniculus 1 cm Well-healed pfannenstiel scar Striae above umbilicus Panniculus stops at hips The sensitive examination was discussed with the Patient or Patient's Authorized Refrigeration Repair Supervisor. As applicable, any other physician, advance practice provider, medical student, or other health professional student that will be observing or involved in the sensitive examination for educational or training purposes was discussed with the Patient or Authorized Refrigeration Repair Supervisor. The Patient or Authorized Refrigeration Repair Supervisor has agreed to proceed with the sensitive examination. (Sensitive examination includes inspection and/or palpation of the breasts (more content not included)... Normal [facility] 11-17-2023 [facility] Telephone (PLASST) -- RAUL CHONG ([id number]) 1980 F Date Time Provider Department 11/17/23 BONNY HENRY During your visit today, we recorded the following information about you: Rachna Lynn 11/17/2023 3:02 PM Signed Patient calling with Authorization Code for surgery: [place] Medicaid [id number] Jessica Desir 11/23/2023 12:39 PM Signed Patient calling back as she has not heard anything from the Plastic Surgery Department since she sent the insurance authorization code. She needs to get her surgery scheduled in either November or December, if possible due to insurance. She can be reached at [phone]. Allergies As of Date: 11/17/2023 Noted Allergy Reaction GABAPENTIN 04/13/2014 14 - Other: See Comments PREDNISONE 04/18/2015 1 - Mental Status Change TREE AND SHRUB POLLEN 07/22/2023 14 - Other: See Comments TOPAMAX (TOPIRAMATE) 12/12/2016 14 - Other: See Comments Comments: anxiety Date Reviewed: 10/30/2023 Reviewed by: Concha Moreno LPN - Fully Assessed Reason for Visit: Insurance Authorization [[id number]] Prescriptions as of 06/13/2024 - amoxicillin-clavulanate potassium (AUGMENTIN) 500-125 mg per tablet Take 1 tablet by mouth three times a day for 10 days. - pregabalin (LYRICA) 75 mg capsule Take 1 capsule by mouth once daily for 180 days. - valACYclovir (VALTREX) 500 mg tablet Take 4 tablets twice daily X 1 day. Then start one tablet by mouth daily thereafter. - Nebulizer Accessories kit 1 Units once daily as needed. - sertraline (ZOLOFT) 50 mg tablet Take 1 tablet by mouth once daily. - calcium carbonate 400 mg (1,000 mg) chew Take 1,000 mg by mouth once daily. - ferrous sulfate (IRON) 325 mg (65 mg iron) tablet Take 325 mg by mouth once daily. - SUMAtriptan (IMITREX) 100 mg tablet Take 1 tablet (100 mg) by mouth as needed. START AT ONSET OF HEADACHE. MAY REPEAT DOSE AFTER 2 HOURS. - cyanocobalamin (VITAMIN B-12) 100 mcg tab Take 100 mcg by mouth once daily. - ergocalciferol, vitamin D2, (VITAMIN D2 ORAL) Take by mouth. - MULTIVITAMIN NO.43-IRON-FA ORAL Take by mouth. Problem List As Of Date 11/17/2023 Noted Resolved Unspecified asthma(493.90) [J45.909] 06/01/2015 Pain [...] radiculopathy [M54.12] 2019 SVT (supraventricular tachycardia) (HCC) [I47.1*03/04/2021 Palpitations [R00.2] 03/04/2021 Chest pain [R07.9] 03/04/2021 SOB (shortness of breath) [R06.02] 03/04/2021 Degenerative joint disease involving multiple j*05/06/2021 Limited mobility [Z74.09] 05/06/2021 History of gastroesophageal reflux (GERD) [Z87.*05/06/2021 Morbid obesity due to excess calories (HCC) [E6*05/06/2021 Morbid obesity (HCC) [E66.01] 10/01/2021 Encounter Status:Closed by RACHNA LYNN on 06/13/24 [facility] 10-30-2023 CNOV Office Visit (FAMPWS ) -- RAUL CHONG ([id number]) 1980 F Date Time Provider Department 10/30/23 4:40 PM MAIRA ESCAMILLA FAMPWS During your visit today, we recorded the following information about you: Pulse Blood pressure Weight 77/minute 98/58 88 kg Maira Escamilla MD 10/30/2023 5:48 PM Signed No chief complaint on file. HPI: Patient presents today for office visit for follow up. Did eeg and had her see neurology. Eeg was negative. Performed zio. Has known svt. Has not been treated with meds. Is stable. Had her see optho. Has not done but feels eye issue may have been migraine. Has had a rough week. Having headaches all week. Feels lightheaded on standing frequently this week. No chest pain or shortness of breath or more gi issues. Is contemplating skin reduction surgery. Asks if she should talk to plastics regarding her breasts as well. She states her breasts are very pendulous and often painful at night. No masses. She feels it is due to her weight loss. Is overdue for mammogram. Given her pain suggested we may want to change it to a diagnostic. Note was copied and pasted, without alteration from previous ov: Reason for visit: Chest pain/headaches. Which facility: [facility] Date of visit: 08/19-08/21/23 Diagnosis: Acute chest pain, and migraine Testing done: Troponin negative, stress test negative, Echo shows an EF of 60%, ct and MRI brain negative. Treatment given: None. Chest pain workup was normal. Labs, stress test and Echo were all unremarkable. Was unclear what chest pain was due to but determined it was not cardiac related. Possibly related to esophageal spasm. She states she feel it was different Current symptoms: No current symptoms today. On 08/22/23 complained of just not feeling right. At times was feeling like she was going to pass out. Was having trouble finding words and felt somewhat confused. . States she will think to do something and then does the opposite. Has not happened since. Does have a hx of migraines. She often has visual aura but had several episodes of darkened vision that were different from her previous migraines. Has been ok now. No chest pain or shortness of breath. No edema. No palpitations. No seizures. No focal numbness or weakness. Has not seen neurology at any point. Also has been ill for 24 hours. Slightly wheezy. Her son is ill. Some cough and wheeze. No sore throat or ear pain. No gi issues. ZIO: RHYTHM FINDINGS: Patient had a min HR of 45 bpm, max HR of 150 bpm, and avg HR of 74 bpm. Predominant underlying rhythm was Sinus Rhythm. Slight P wave morphology changes were noted. 2 Supraventricular Tachycardia runs occurred, the run with the fastest interval lasting 4 beats with a max rate of 112 bpm, the longest lasting 9 beats with an avg rate of 92 bpm. Isolated SVEs were rare (<1.0%), SVE Couplets were rare (<1.0%), and SVE Triplets were rare (<1.0%). Isolated VEs were rare (<1.0%), VE Couplets were rare (<1.0%), and no VE Triplets were present. MEDICATIONS: MEDICATIONS: Current Outpatient Medications Medication Sig pregabalin (LYRICA) 75 mg capsule Take 1 capsule by mouth once daily for 180 days. calcium carbonate 400 mg (1,000 mg) chew Take 1,000 mg by mouth once daily. ferrous sulfate (IRON) 325 mg (65 mg iron) tablet Take 325 mg by mouth once daily. valACYclovir (VALTREX) 500 mg tablet Take 4 tablets twice daily X 1 day. Then start one tablet by mouth daily thereafter. SUMAtriptan (IMITREX) 100 mg tablet Take 1 tablet (100 mg) by mouth as needed. START AT ONSET OF HEADACHE. MAY REPEAT DOSE AFTER 2 HOURS. cyanocobalamin (VITAMIN B-12) 100 mcg tab Take 100 mcg by mouth once daily. ergocalciferol, vitamin D2, (VITAMIN D2 ORAL) Take by mouth. MULTIVITAMIN NO.43-IRON-FA ORAL Take by mouth. fexofenadine (LAKISHA ALLERGY) 180 mg tablet Take 1 tablet by mouth once daily. (Patient not taking: Reported on 09/28/2023) norethindrone (AYGESTIN) 5 mg tablet Take 1 tablet by mouth twice daily for 7 days. (Patient not taking: Reported on 09/28/2023) albuterol (PROVENTIL) 2.5 mg /3 mL (0.083 %) nebulizer solution Use 3 mL via nebulizer every 4 hours as needed for wheezing/shortness of breath. ammonium lactate (AMLACTIN) 12 % lotion apply to rash 2-3 times a day as needed (Patient not taking: Reported on 09/28/2023) No current facility-administered medications for this visit. ALLERGIES: ALLERGIES Allergen Reactions Gabapentin Other: See Comments Prednisone Mental Status Change Tree And Shrub Poll* Other: See Comments Topamax [Topiramate] Other: See Comments anxiety PAST MEDICAL HISTORY Diagnosis Date Autoimmune disease (HCC) Degeneration of intervertebral disc, site unspecified Depression Migraines Mild intermittent asthma Obesity Osteoarthritis of both knees Plantar fasciitis Psoriasis PAST SURGICA (more content not included)... Normal [facility] 10-28-2023 [facility] Telephone (FAMPWS) -- CHONG,RAUL Harvinder ([id number]) 1980 F Date Time Provider Department 10/28/23 MAIRA ESCAMILLA [facility] During your visit today, we recorded the following information about you: Maira Escamilla MD 10/28/2023 3:45 PM Signed Monitor shows very small amount of svt which is where the upper chambers beat early. Not a dangerous rhythm however can cause palpitations etc. Follow up to discuss how doing Krystian Ward MA 10/28/2023 3:59 PM Signed Patient informed and verbalized understanding. States she's been told previously she has SVT. Does get palpitations from time to time. C/o of migraine headaches still. Mentions an episode the other day where she states she almost passed out. Was very shaky after episode. Refers to it feeling like maybe her sugar drops but states has never had an issue with her BS. Ate a PBANDJ after and felt better. Also mentions a tingling/numbness sensation in her ear for almost two weeks. Scheduled with you on Thursday10/30/23. DYAN Pelletier William J, MD 10/28/2023 4:18 PM Signed Ok if worsens before hand, Krystian Street MA 10/28/2023 4:51 PM Signed Patient informed. Krystian Ward MA Allergies As of Date: 10/28/2023 Noted Allergy Reaction GABAPENTIN 04/13/2014 14 - Other: See Comments PREDNISONE 04/18/2015 1 - Mental Status Change TREE AND SHRUB POLLEN 07/22/2023 14 - Other: See Comments TOPAMAX (TOPIRAMATE) 12/12/2016 14 - Other: See Comments Comments: anxiety Date Reviewed: 10/08/2023 Reviewed by: Joleen Ortega - Fully Assessed Reason for Visit: Results [95] Prescriptions as of 10/28/2023 - pregabalin (LYRICA) 75 mg capsule Take 1 capsule by mouth once daily for 180 days. - calcium carbonate 400 mg (1,000 mg) chew Take 1,000 mg by mouth once daily. - ferrous sulfate (IRON) 325 mg (65 mg iron) tablet Take 325 mg by mouth once daily. - valACYclovir (VALTREX) 500 mg tablet Take 4 tablets twice daily X 1 day. Then start one tablet by mouth daily thereafter. - SUMAtriptan (IMITREX) 100 mg tablet Take 1 tablet (100 mg) by mouth as needed. START AT ONSET OF HEADACHE. MAY REPEAT DOSE AFTER 2 HOURS. - fexofenadine (LAKISHA ALLERGY) 180 mg tablet Take 1 tablet by mouth once daily. - norethindrone (AYGESTIN) 5 mg tablet Take 1 tablet by mouth twice daily for 7 days. - cyanocobalamin (VITAMIN B-12) 100 mcg tab Take 100 mcg by mouth once daily. - ergocalciferol, vitamin D2, (VITAMIN D2 ORAL) Take by mouth. - MULTIVITAMIN NO.43-IRON-FA ORAL Take by mouth. - albuterol (PROVENTIL) 2.5 mg /3 mL (0.083 %) nebulizer solution Use 3 mL via nebulizer every 4 hours as needed for wheezing/shortness of breath. - ammonium lactate (AMLACTIN) 12 % lotion apply to rash 2-3 times a day as needed Problem List As Of Date 10/28/2023 Noted Resolved Unspecified asthma(493.90) [J45.909] 06/01/2015 Pain [...] radiculopathy [M54.12] 2019 SVT (supraventricular tachycardia) (HCC) [I47.1*03/04/2021 Palpitations [R00.2] 03/04/2021 Chest pain [R07.9] 03/04/2021 SOB (shortness of breath) [R06.02] 03/04/2021 Degenerative joint disease involving multiple j*05/06/2021 Limited mobility [Z74.09] 05/06/2021 History of gastroesophageal reflux (GERD) [Z87.*05/06/2021 Morbid obesity due to excess calories (HCC) [E6*05/06/2021 Morbid obesity (HCC) [E66.01] 10/01/2021 Encounter Status:Closed by KRYSTIAN WARD on 10/28/23 [facility] 10-08-2023 CNOV Office Visit (PLASST ) -- MOI CHONGANDRA Blanton ([id number]) 1980 F Date Time Provider Department 10/08/23 10:00 AM BONNY HENRY During your visit today, we recorded the following information about you: Weight Height 86.2 kg 1.753 m Bonny Henry APRN.CNP 10/08/2023 12:35 PM Signed Plastic Surgery Note CC: Consult for Panniculectomy Pt reports loose skin on her thighs which she wants removed HPI: Raul is a 43 year old female here today to discuss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 diplopia ENT ENT ED: Denies rhinorrhea or sore throat Cardiovascular Cardiovascular: Reports chest pain; Denies orthopnea or racing heartbeat Respiratory/Chest Respiratory/Chest: Reports cough; Denies dyspnea, dyspnea on exertion, orthopnea or sputum Gastrointestinal Gastrointestinal: Denies abdominal pain, diarrhea, nausea or vomiting Genitourinary Genitourinary ED: Denies dysuria, hematuria or urinary frequency Musculoskeletal Musculoskeletal: Denies arthralgias, back pain, myalgias or neck pain Integumentary Denies abscess, Abrasions or rash Neurologic Neurologic: Denies headache(s) or weakness Psychiatric Psychiatric: Denies anxiety, depression or suicidal thoughts Endocrine Endocrinology: Denies polydipsia, polyphagia or polyuria Hematologic/Lymphatic Hematologic/Lymphatic: Denies easy bleeding, easy bruising or lymphadenopathy Allergic/Immunologic Allergic/Immunologic ED: Denies mouth swelling, tongue swelling or urticaria EXAM Physical Exam Const Vital Signs: 09/02/23 01:09 09/02/23 01:45 Temperature 97.6 F L Temperature Source Temporal Pulse Rate 95 Respiratory Rate 16 Respiratory Effort Normal Non-Labored Respiratory Pattern Normal Blood Pressure 114/73 Blood Pressure Mean 86 Pulse Ox 96 Oxygen Delivery Method Room Air Positive well nourished and well developed General Appearance ED: well developed and NAD HEENT Reports TM's clear and moist mucous membranes normocephalic and atraumatic; Negative for trauma or tenderness Tympanic Membrane ED: Yes (more content not included)... [facility] Ribs Unil 2V No CXRon 2023 Ribs Unil 2V No CXR [facility] Imaging Services [address] [place] [address] Ribs Unil 2V No CXR MR#: [id number] Acct: [id number] Name: RAUL FLEMING DIANNA Rep #: [id number] : 1980 F 42 From: Rodney majano MD PCP: Dr. Maira Escaimlla MD Status: REG ER Study: Ribs Unil 2V No CXR Date of Exam: 09/02/23 Exam# [id number] Ordering Dr: Jeff Diego DO [id number] EXAM: XR LEFT RIBS, 2 VIEWS CLINICAL INDICATION: injury injury TECHNIQUE: Frontal and oblique views of the left ribs. COMPARISON: Chest x-ray 09/02/2023. FINDINGS: LUNGS AND PLEURAL SPACES: Unremarkable. No consolidation or edema. No pneumothorax. No effusion. BONES/JOINTS: Unremarkable. No displaced fracture. No sclerotic or destructive changes observed. SOFT TISSUES: Unremarkable. No soft tissue swelling or gas. RAD/Ribs Unil 2V No CXR IMPRESSION: No evidence of displaced rib fracture. Electronically Signed: Rodney Ennis MD at 2:26 EDT , CC: Dr. Jeff Diego DO; Dr. Maira Escamilla MD Fireworks Assembly Supervisor: Signed [facility] XR RIBS 2 VIEWS LEFTon 08-30 XR RIBS 2 VIEWS LEFT ORIGINAL EXAMINATION: 2 XRAY VIEWS OF THE LEFT RIBS 08/31/2023 6:31 pm COMPARISON: None. HISTORY: ORDERING SYSTEM PROVIDED HISTORY: Reason for Exam: left anterior upper rib pain FINDINGS: No visible rib fracture. Left-sided conduction device. Cholecystectomy clips. IMPRESSION: No visible rib fracture. Interpreted by: Damián Medellin Preliminary Report By: Damián Medellin Electronically signed By Damián Medellin Dictated Date: 08/31/2023 6:35:28 PM Prelim Date: 08/31/2023 6:37:06 PM Sign Date: 08/31/2023 6:37:06 PM Ordering Provider: TIGIST ALFARO [facility] ([place]) XR Chest PA and Lateralon IMPRESSION: No acute radiographic abnormality. Fireworks Assembly Supervisor: CESAR Transcribe Date/Time: Aug 25 2023 4:47P Dictated by : MIKKI ROUSE MD This examination was interpreted and the report reviewed and electronically signed by: MIKKI ROUSE MD on Aug 25 2023 4:47PM [facility] DIVISION OF RADIOLOGY * * *Final Report* * * DATE OF EXAM: Aug 25 2023 3:04PM WOX [id number] - XR CHEST 2V FRONTAL/LAT / PROCEDURE REASON: multiple diagnoses * * * * Physician Interpretation * * * * EXAMINATION: CHEST RADIOGRAPH (2 VIEW FRONTAL & LATERAL) CLINICAL HISTORY: URI, acute Acute cough MQ: XC2_6 EXAM DATE/TIME: 08/25/2023 3:04 PM COMPARISON: Chest x-ray on 05/01/2021 RESULT: Lines, tubes, and devices: None. Lungs and pleura: No consolidation. No lung mass. No pleural effusion. No pneumothorax. Cardiomediastinal silhouette: Normal cardiomediastinal silhouette. Bones and soft tissues: There are degenerative changes in the spine. DIVISION OF RADIOLOGY Provider, [facility] Elvia an [place] - 08/25/2023 * * *Final Report* * * DATE OF EXAM: Aug 25 2023 3:04PM WOX [id number] - XR CHEST 2V FRONTAL/LAT / PROCEDURE REASON: multiple diagnoses * * * * Physician Interpretation * * * * EXAMINATION: CHEST RADIOGRAPH (2 VIEW FRONTAL & LATERAL) CLINICAL HISTORY: URI, acute Acute cough MQ: XC2_6 EXAM DATE/TIME: 08/25/2023 3:04 PM COMPARISON: Chest x-ray on 05/01/2021 RESULT: Lines, tubes, and devices: None. Lungs and pleura: No consolidation. No lung mass. No pleural effusion. No pneumothorax. Cardiomediastinal silhouette: Normal cardiomediastinal silhouette. Bones and soft tissues: There are degenerative changes in the spine. IMPRESSION IMPRESSION: No acute radiographic abnormality. Fireworks Assembly Supervisor: CESAR Transcribe Date/Time: Aug 25 2023 4:47P Dictated by : MIKKI ROUSE MD This examination was interpreted and the report reviewed and electronically signed by: IMKKI ROUSE MD on Aug 25 2023 4:47PM EST [facility] Radiology Study observation (narrative) [facility] XR Chest PA and LateralOrder ed By: [facility] Provider on 08-25-2023 [facility] Laboratory - Microbiology an d Antimicrobial susceptibilityOrdered By: Deepak Moreno on 02-13-2023 SARS-CoV-2 (COVID-19) RNA KRISTINA+probe Ql (Unsp spec) [facility] ARUN SCREENINGon 03-07-2022 [facility] STREP A MOLECULAR (POC)on Procedural Control Valid [facility] Strep A (POCT) Positive Abnormal Negative [facility] Absolute lymphocyte counton 06-24-2021 Lymphocytes Auto (Unsp spec) [#/Vol] 1.30 10*3/uL 0.83-4.51 [facility] Work Phone: Basophil percentageon 2021 Basophil percentage 0-5 SEEN /hpf [facility] Work Phone: Basophils/100 WBC (Bld) 0.7 % 0-1 [facility] Work Phone: Chloride [Moles/Vol] 107 mmol/L 98-107 [facility] Work Phone: Eosinophils/100 WBC (Bld) 4.1 % 0-5 [facility] Work Phone: Glucose [Mass/Vol] 103 mg/dL 74-106 [facility] Work Phone: Comment on above: Fasting Glucose resu lt from 100 to 125 mg/dL suggests IMPAIRED HOMEOSTASIS per A.D.A. criteria. Neutrophils (Bld) [#/Vol] 3.8 10*3/uL 2.0-7.7 [facility] Work Phone: Neutrophils/100 WBC (Bld) 64.1 % 47-70 [facility] Work Phone: Potassium [Moles/Vol] 3.5 mmol/L 3.5-5.1 [facility] Work Phone: Sodium [Moles/Vol] 139 mmol/L 136-145 [facility] Work Phone: WBC (Bld) [#/Vol] 5.9 10*3/uL 4.4-11.0 [facility] Work Phone: Bilirubin Test strip Ql (U)o n 06-24-2021 Bilirubin Ql (U) Negative Negative [facility] Work Phone: Blood erythrocytes count (nu mber/volume)on 06-24-2021 RBC (Bld) [#/Vol] 4.75 10*6/uL 4.2-5.4 [facility] Work Phone: Blood hemoglobin measurement (mass/volume)on 06-24-2021 Hemoglobin (Bld) [Mass/Vol] 11.8 g/dL 12.0-15.0 [facility] Work Phone: Blood lymphocytes/100 leukoc yteson 06-24-2021 Lymphocytes/100 WBC (Bld) 22.1 % 19-41 [facility] Work Phone: Blood monocytes/100 leukocyt eson 06-24-2021 Monocytes/100 WBC (Bld) 8.7 % 0-10 [facility] Work Phone: Blood platelet mean volumeon 06-24-2021 Platelet mean volume (Bld) [Entitic vol] 9.9 fL 6.2-12.0 [facility] Work Phone: [phone] Determination of erythrocyte mean corpuscular volume (MCV)on 06-24-2021 MCV (RBC) [Entitic vol] 78.1 fL 81-99 [facility] Work Phone: [phone] Hematocrit Auto (Bld) [Volum e fraction]on 06-24-2021 Hematocrit (Bld) [Volume fraction] 37.1 % 37-47 [facility] Work Phone: [phone] Ketones Test strip Ql (U)on 06-24-2021 Ketones Ql (U) 50 mg/dl Negative [facility] Work Phone: [phone] Laboratory - Chemistry and C hemistry - challengeon 06-24-2021 CO2 [Moles/Vol] 24.0 mmol/L 21.0-32.0 [facility] Work Phone: [phone] Urea nitrogen/Creatinine [Mass ratio] 21.4 mg/mg 10-20 [facility] Work Phone: [phone] Laboratory - Hematology and Cell countson 06-24-2021 Erythrocyte distribution width (RBC) [Entitic vol] 42.9 fL 35.1-43.9 [facility] Work Phone: [phone] Erythrocyte distribution width (RBC) [Ratio] 15.1 % 11.6-14.6 [facility] Work Phone: [phone] Immature granulocytes/100 WBC (Bld) 0.300 % 0.0-0.9 [facility] Work Phone: [phone] Comment on above: IG% - Immature Granu locytes (promyelocytes, myelocytes and metamyelocytes) > 1% indicates that a LEFT SHIFT is Present. MCH (RBC) [Entitic mass] 24.8 pg 27.0-32.0 [facility] Work Phone: [phone] Nucleated RBC/100 WBC (Bld) [Ratio] 0 % 0-5 [facility] Work Phone: MCHC Auto (RBC) [Mass/Vol]on 06-24-2021 MCHC (RBC) [Mass/Vol] 31.8 g/dL 32-36 [facility] Work Phone: [phone] Mucus LM Ql (Urine sed)on Mucus Ql (Urine sed) 0 SEEN /hpf [facility] Work Phone: [phone] Nitrite Test strip Ql (U)on 06-24-2021 Nitrite Ql (U) Negative Negative [facility] Work Phone: No Panel Informationon 06-24 Estimated Creatinine Clearance Calc 92.11 ml/min [facility] Work Phone: [phone] Estimated GFR (MDRD) Amer 96 mL/min >60 [facility] Work Phone: Comment on above: GFR Calc Estimated GFR (MDRD) Non-Af Amer 79 mL/min >60 [facility] Work Phone: Comment on above: Non- GFR Calc Platelets bldon 06-24-2021 Platelets (Bld) [#/Vol] 247 10*3/uL 150-450 [facility] Work Phone: Protein Test strip Ql (U)on 06-24-2021 Protein Ql (U) 15 mg/dl Negative [facility] Work Phone: [phone] Serum or plasma calcium shayna urement (mass/volume)on 06-24-2021 Calcium [Mass/Vol] 8.7 mg/dL 8.5-10.1 [facility] Work Phone: [phone] Serum or plasma creatinine m easurement (mass/volume)on 06-24-2021 Creatinine [Mass/Vol] 0.84 mg/dL 0.55-1.02 [facility] Work Phone: Comment on above: The validity of the calculated GFR & GFRAA in patients over 70 years has not been determined. Clinical correlation is essential. Serum or plasma urea nitroge n measurement (mass/volume)on 06-24-2021 Urea nitrogen [Mass/Vol] 18 mg/dL 7-18 [facility] Work Phone: Squamous epithelial cells de tection in urine sediment by light microscopyon 06-24-2021 Epithelial cells.squamous LM Ql (Urine sed) 5-10 SEEN /hpf [facility] Work Phone: Thin prep Papanicolaou smear with manual screeningon 06-24-2021 Thin prep Papanicolaou smear with manual screening 8 5-15 [facility] Work Phone: Urine blood detectionon 06-09 RBC Ql (U) 10 /ul Negative [facility] Work Phone: RBC Ql (U) 0-5 SEEN /hpf [facility] Work Phone: Urine clarityon 06-24-2021 Clarity (U) Clear Clear [facility] Work Phone: Urine color determinationon 06-24-2021 Color (U) Yellow Yellow [facility] Work Phone: Urine glucose detectionon Glucose Ql (U) Normal mg/dl Normal [facility] Work Phone: Urine leukocyte esterase det ection by dipstickon 06-24-2021 Leukocyte esterase Test strip Ql (U) 100 /ul Negative [facility] Work Phone: Urine pHon 06-24-2021 pH (U) 6.0 [pH] [facility] Work Phone: Urine sediment bacteria coun t by microscopy (number/high power field)on 06-24-2021 Bacteria LM.HPF (Urine sed) [#/Area] RARE /hpf None Seen [facility] Work Phone: Urine specific gravity measu rementon 06-24-2021 Specific gravity (U) [Rel density] 1.025 [facility] Work Phone: Urobilinogen Auto test strip Ql (U)on 06-24-2021 Urobilinogen Ql (U) Normal mg/dl Normal [facility] Work Phone: XR Chest PA and Lateralon IMPRESSION: No acute radiographic abnormality. Fireworks Assembly Supervisor: CESAR Transcribe Date/Time: May 01 2021 5:59P Dictated by : MARITZA GUERRERO MD This examination was interpreted and the report reviewed and electronically signed by: MARITZA GUERRERO MD on May 01 2021 6:00PM [facility] DIVISION OF RADIOLOGY * * *Final Report* * * DATE OF EXAM: May 01 2021 5:52PM WOX [id number] - XR CHEST 2V FRONTAL/LAT / PROCEDURE REASON: multiple diagnoses * * * * Physician Interpretation * * * * EXAMINATION: CHEST RADIOGRAPH (2 VIEW FRONTAL & LATERAL) CLINICAL HISTORY: Class 3 severe obesity due to excess calories without serious comorbidity with body mass index (BMI) of 60.0 to 69.9 in adult (HCC) Class 3 severe obesity due to excess calories without serious comorbidity with body mass index (BMI) of 60.0 to 69.9 in adult (HCC) MQ: XC2_6 EXAM DATE/TIME: 05/01/2021 5:52 PM COMPARISON: May 13, 2018 RESULT: Lines, tubes, and devices: None. Lungs and pleura: No consolidation. No lung mass. No pleural effusion. No pneumothorax. Cardiomediastinal silhouette: Normal cardiomediastinal silhouette. Bones and soft tissues: Endplate osteophytes at multiple levels in the thoracic spine. DIVISION OF RADIOLOGY Provider, [facility] - 05/01/2021 * * *Final Report* * * DATE OF EXAM: May 01 2021 5:52PM WOX [id number] - XR CHEST 2V FRONTAL/LAT / PROCEDURE REASON: multiple diagnoses * * * * Physician Interpretation * * * * EXAMINATION: CHEST RADIOGRAPH (2 VIEW FRONTAL & LATERAL) CLINICAL HISTORY: Class 3 severe obesity due to excess calories without serious comorbidity with body mass index (BMI) of 60.0 to 69.9 in adult (HCC) Class 3 severe obesity due to excess calories without serious comorbidity with body mass index (BMI) of 60.0 to 69.9 in adult (HCC) MQ: XC2_6 EXAM DATE/TIME: 05/01/2021 5:52 PM COMPARISON: May 13, 2018 RESULT: Lines, tubes, and devices: None. Lungs and pleura: No consolidation. No lung mass. No pleural effusion. No pneumothorax. Cardiomediastinal silhouette: Normal cardiomediastinal silhouette. Bones and soft tissues: Endplate osteophytes at multiple levels in the thoracic spine. IMPRESSION IMPRESSION: No acute radiographic abnormality. Fireworks Assembly Supervisor: CESAR Transcribe Date/Time: May 01 2021 5:59P Dictated by : MARITZA GUERRERO MD This examination was interpreted and the report reviewed and electronically signed by: MARITZA GUERRERO MD on May 01 2021 6:00PM EST [facility] Radiology Study observation (narrative) [facility] XR Chest PA and LateralOrder ed By: [facility] Provider on 05-01-2021 [facility] XR Knee - bilateral 4 Viewso n 02-22-2021 IMPRESSION: 1. Mild osteoarthrosis of the bilateral knees with moderate narrowing of the left patellofemoral compartment joint space. Fireworks Assembly Supervisor: CESAR Transcribe Date/Time: Feb 22 2021 4:05P Dictated by : HAL RIVERA MD This examination was interpreted and the report reviewed and electronically signed by: HAL RIVERA MD on Feb 22 2021 4:07PM EST DIVISION OF RADIOLOGY * * *Final Report* * * DATE OF EXAM: Feb 22 2021 3:56PM STX 5618 - XR KNEE 4V AP/PA/LAT/MERCH NOE / PROCEDURE REASON: Pain * * * * Physician Interpretation * * * * KNEE RADIOGRAPHS - BILATERAL HISTORY: Pain TECHNOLOGIST PROVIDED HISTORY (if applicable): BILATERAL KNEE PAIN, LEFT WORSE THAN RIGHT, NO RECENT INJURY TECHNIQUE: XR KNEE 4V AP/PA/LAT/MERCH NOE COMPARISON: Radiographs dated 06/11/2000 by report only RESULT: There is no acute osseous, articular, or soft tissue abnormality. There is no joint effusion or soft tissue swelling. Moderate narrowing of the left patellofemoral joint space with marginal osteophytes. Minor narrowing of the right. There are small marginal osteophytes in the medial and lateral compartments of both knees and at the tibial spines. There is hyperostosis with mild fragmentation about the right and left tibial tubercles consistent with old [place]-Schlatter disease. DIVISION OF RADIOLOGY Provider, [facility] - 02/22/2021 * * *Final Report* * * DATE OF EXAM: Feb 22 2021 3:56PM STX 5618 - XR KNEE 4V AP/PA/LAT/MERCH NOE / PROCEDURE REASON: Pain * * * * Physician Interpretation * * * * KNEE RADIOGRAPHS - BILATERAL HISTORY: Pain TECHNOLOGIST PROVIDED HISTORY (if applicable): BILATERAL KNEE PAIN, LEFT WORSE THAN RIGHT, NO RECENT INJURY TECHNIQUE: XR KNEE 4V AP/PA/LAT/MERCH NOE COMPARISON: Radiographs dated 06/11/2000 by report only RESULT: There is no acute osseous, articular, or soft tissue abnormality. There is no joint effusion or soft tissue swelling. Moderate narrowing of the left patellofemoral joint space with marginal osteophytes. Minor narrowing of the right. There are small marginal osteophytes in the medial and lateral compartments of both knees and at the tibial spines. There is hyperostosis with mild fragmentation about the right and left tibial tubercles consistent with old [place]-Schlatter disease. IMPRESSION IMPRESSION: 1. Mild osteoarthrosis of the bilateral knees with moderate narrowing of the left patellofemoral compartment joint space. Fireworks Assembly Supervisor: PSCB Transcribe Date/Time: Feb 22 2021 4:05P Dictated by : HAL RIVERA MD This examination was interpreted and the report reviewed and electronically signed by: HAL RIVERA MD on Feb 22 2021 4:07PM EST [facility] Radiology Study observation (narrative) [facility] XR Knee - bilateral 4 ViewsO rdered By: [facility] Provider on 02-22-2021 [facility] Clinical Summary: HMSPatient IDon 09-27-[address] [facility] Work Phone: Office Visit: New - 1st visi t with practice, Rm: [phone] NEGATED: Highlighted rowxray history of the cervical spine on 09/21/2019 at [facility] Work Phone: Clinical Lists Update: Prelo ad Extendedon 09-23-2019 Tobacco smoking status NHIS Tobacco smoking status NHIS [facility] Work Phone: Clinical Summary: Scanned Hi story Summaryon 09-23-2019 comments about allergies TopamaxGabapentinPrendason e [facility] Work Phone: data entered by patient, alcohol (ethanol or ETOH) use No [facility] Work Phone: data entered by patient, drug (of abuse) use No [facility] Work Phone: data entered by patient, Employer Name employed [facility] Work Phone: data entered by patient, exercise history No [facility] Work Phone: data entered by patient, father's medical history Arthritis [facility] Work Phone: Data entered by patient, history of past surgeries sectionFoot surgeryGallbladder surgeryLumbar spine decompressionTonsillectomy [facility] Work Phone: Data entered by patient, medication list [id number] [id number] packet-daily [facility] Work Phone: data entered by patient, mother's medical history Arthritis [facility] Work Phone: data entered by patient, past medical history ArthritisAsthmaObesity [facility] Work Phone: data entered by patient, social history, current smoker former smoker [facility] Work Phone: data entered by patient, social history, former smoker 2014 [facility] Work Phone: data entered by patient, social history, marital status single [facility] Work Phone: data entered by patient, social history, occupation [employer] [facility] Work Phone: father of patient is alive or Alive [facility] Work Phone: Housing Type: apartment, house, jail, trailer, none house [facility] Work Phone: medical history of patient's brother(s) Diabetes - insulin dependent [facility] Work Phone: mother of patient is alive or Alive [facility] Work Phone: Vital Signs Date Time Vital Sign Value Performing Clinician Facility 08-31-2024 09:14-0400 Body mass index (BMI) [Ratio] 28.63 kg/m2 Enrique Barba MD Work Phone: [facility] 08-31-2024 09:14-0400 Body temperature 97.5 [degF] Enrique Barba MD Work Phone: [facility] 08-31-2024 09:14-0400 Body weight 85.4 kg Enrique Barba MD Work Phone: [facility] 08-31-2024 09:14-0400 Diastolic blood pressure 62 mm[Hg] Enrique Barba MD Work Phone: [facility] 08-31-2024 09:14-0400 Heart rate 70 /min Enrique Barba MD Work Phone: [facility] 08-31-2024 09:14-0400 Respiratory rate 16 /min Enrique Barba MD Work Phone: [facility] 08-31-2024 09:14-0400 SaO2% (BldA) [Mass fraction] 98 % Enrique Barba MD Work Phone: [facility] 08-31-2024 09:14-0400 Systolic blood pressure 108 mm[Hg] Enrique Barba MD Work Phone: [facility] 08-24-2024 10:30-0400 Body height 172.7 cm Beulah Campa MD Work Phone: [facility] 08-24-2024 10:30-0400 Body mass index (BMI) [Ratio] 27.98 kg/m2 Beulah Campa MD Work Phone: [facility] 08-24-2024 10:30-0400 Body weight 83.46 kg Beulah Campa MD Work Phone: [facility] 08-24-2024 10:30-0400 Diastolic blood pressure 58 mm[Hg] Beulah Campa MD Work Phone: [facility] 08-24-2024 10:30-0400 Heart rate 70 /min Beulah Campa MD Work Phone: [facility] 08-24-2024 10:30-0400 SaO2% (BldA) [Mass fraction] 97 % Beulah Campa MD Work Phone: [facility] 08-24-2024 10:30-0400 Systolic blood pressure 102 mm[Hg] Beulah Campa MD Work Phone: [phone] [place] [address] 08-16-2024 11:42-0400 Body temperature 98.6 [degF] Dr. Maira Escamilla MD Work Phone: [phone] [place] [address] 08-16-2024 11:42-0400 Diastolic blood pressure 70 mm[Hg] Dr. Maira Escamilla MD Work Phone: [phone])480-736200 [place] [address] 08-16-2024 11:42-0400 Heart rate 81 /min Dr. Maira Escamilla MD Work Phone: [phone] [place] [address] 08-16-2024 11:42-0400 Respiratory rate 18 /min Dr. Maira Escamilla MD Work Phone: [phone] [place] [address] 08-16-2024 11:42-0400 SaO2% (BldA) [Mass fraction] 98 % Dr. Maira Escamilla MD Work Phone: [phone] [place] [address] 08-16-2024 11:42-0400 Systolic blood pressure 128 mm[Hg] Dr. Maria Escamilla MD Work Phone: [phone] [place] [address] 08-16-2024 09:00-0400 Body mass index (BMI) [Ratio] 28.5 kg/m2 Dr. Maira Escamilla MD Work Phone: [phone])847-113200 [place] [address] 08-16-2024 09:00-0400 Body weight 85.[address] Maira Escamilla MD Work Phone: [facility] 08-16-2024 08:47-0400 Body height 172.[address] Maira Escamilla MD Work Phone: [facility] 08-04-2024 09:58-0400 Diastolic blood pressure 78 mm[Hg] Makeda Apollo CARBON ACCOUNTANT.SAUSAGE GRINDER Work Phone: [facility] 08-04-2024 09:58-0400 Systolic blood pressure 126 mm[Hg] Makeda Apollo CARBON ACCOUNTANT.SAUSAGE GRINDER Work Phone: [facility] 08-04-2024 09:27-0400 Body mass index (BMI) [Ratio] 28.4 kg/m2 Makeda Lynn CARBON ACCOUNTANT.SAUSAGE GRINDER Work Phone: [facility] 08-04-2024 09:27-0400 Body weight 84.73 kg Makeda Apollo CARBON ACCOUNTANT.SAUSAGE GRINDER Work Phone: [facility] 08-01-2024 09:33-0400 Body mass index (BMI) [Ratio] 28.28 kg/m2 Beulah Campa MD Work Phone: [facility] 08-01-2024 09:33-0400 Body weight 84.37 kg Beulah Campa MD Work Phone: [facility] 08-01-2024 09:33-0400 Diastolic blood pressure 66 mm[Hg] Beulah Campa MD Work Phone: [facility] 08-01-2024 09:33-0400 Systolic blood pressure 110 mm[Hg] Beulah Campa MD Work Phone: [facility] 07-22-2024 10:07-0400 Body mass index (BMI) [Ratio] 27.06 kg/m2 Makeda Apollo CARBON ACCOUNTANT.SAUSAGE GRINDER Work Phone: [facility] 07-22-2024 10:07-0400 Body weight 80.74 kg Makeda Lynn CARBON ACCOUNTANT.SAUSAGE GRINDER Work Phone: [facility] 07-22-2024 10:07-0400 Diastolic blood pressure 64 mm[Hg] Makeda Apollo CARBON ACCOUNTANT.SAUSAGE GRINDER Work Phone: [facility] 07-22-2024 10:07-0400 Systolic blood pressure 102 mm[Hg] Makeda Apollo CARBON ACCOUNTANT.SAUSAGE GRINDER Work Phone: [facility] 07-14-2024 13:19-0400 Body height 172.7 cm Bonny Elaine CARBON ACCOUNTANT.SAUSAGE GRINDER Work Phone: [facility] 07-14-2024 13:19-0400 Body mass index (BMI) [Ratio] 27.15 kg/m2 Bonny Elaine CARBON ACCOUNTANT.SAUSAGE GRINDER Work Phone: [facility] 07-14-2024 13:19-0400 Body weight 81 kg Bonny Elaine CARBON ACCOUNTANT.SAUSAGE GRINDER Work Phone: [facility] 07-12-2024 09:17-0400 Body mass index (BMI) [Ratio] 27.64 kg/m2 Makeda Apollo CARBON ACCOUNTANT.SAUSAGE GRINDER Work Phone: [facility] 07-12-2024 09:17-0400 Body weight 82.46 kg Makeda Lynn CARBON ACCOUNTANT.SAUSAGE GRINDER Work Phone: [facility] 07-12-2024 09:17-0400 Diastolic blood pressure 64 mm[Hg] Makeda Apollo CARBON ACCOUNTANT.SAUSAGE GRINDER Work Phone: [facility] 07-12-2024 09:17-0400 Systolic blood pressure 118 mm[Hg] Makeda Lynn CARBON ACCOUNTANT.SAUSAGE GRINDER Work Phone: [facility] 06-02-2024 15:40-0400 Body temperature 98.5 [degF] Dr. Maira Escamilla MD Work Phone: [facility] 06-02-2024 15:40-0400 Diastolic blood pressure 69 mm[Hg] Dr. Maira Escamilla MD Work Phone: [facility] 06-02-2024 15:40-0400 Heart rate 88 /min Dr. Maira Escamilla MD Work Phone: [facility] 06-02-2024 15:40-0400 Respiratory rate 15 /min Dr. Maira Escamilla MD Work Phone: [facility] 06-02-2024 15:40-0400 SaO2% (BldA) [Mass fraction] 97 % Dr. Maira Escamilla MD Work Phone: [facility] 06-02-2024 15:40-0400 Systolic blood pressure 105 mm[Hg] Dr. Maira Escamilla MD Work Phone: [facility] 06-02-2024 14:39-0400 Body height 172.[address] Maira Escamilla MD Work Phone: [facility] 06-02-2024 14:39-0400 Body mass index (BMI) [Ratio] 28 kg/m2 Dr. Maira Escamilla MD Work Phone: [facility] 06-02-2024 14:39-0400 Body weight 83.[address] Maira Escamilla MD Work Phone: [facility] 03-26-2024 10:32-0500 Body mass index (BMI) [Ratio] 28.02 kg/m2 Starr Leanna CARBON ACCOUNTANT.SAUSAGE GRINDER Work Phone: [facility] 03-26-2024 10:32-0500 Body temperature 97.39 [degF] Starr Leanna CARBON ACCOUNTANT.SAUSAGE GRINDER Work Phone: [facility] 03-26-2024 10:32-0500 Body weight 83.6 kg Starr Leanna CARBON ACCOUNTANT.SAUSAGE GRINDER Work Phone: [facility] 03-26-2024 10:32-0500 Diastolic blood pressure 64 mm[Hg] Starr Leanna CARBON ACCOUNTANT.SAUSAGE GRINDER Work Phone: [facility] 03-26-2024 10:32-0500 Heart rate 84 /min Starr Leanna CARBON ACCOUNTANT.SAUSAGE GRINDER Work Phone: [facility] 03-26-2024 10:32-0500 Respiratory rate 16 /min Starr Leanna CARBON ACCOUNTANT.SAUSAGE GRINDER Work Phone: [facility] 03-26-2024 10:32-0500 SaO2% (BldA) [Mass fraction] 97 % Starr Ram APRN.SAUSAGE GRINDER Work Phone: [facility] 03-26-2024 10:32-0500 Systolic blood pressure 112 mm[Hg] Starr Ram APRN.SAUSAGE GRINDER Work Phone: [facility] 03-24-2024 11:23-0500 Body temperature 98.29 [degF] Bonny Henry CARBON ACCOUNTANT.SAUSAGE GRINDER Work Phone: [facility] 03-08-2024 10:34-0500 Body mass index (BMI) [Ratio] 28 kg/m2 Dr. Maira Escamilla MD Work Phone: [facility] 03-08-2024 10:34-0500 Body weight 83.[address] Maira Escamilla MD Work Phone: [facility] 02-28-2024 14:38-0500 Body mass index (BMI) [Ratio] 27.49 kg/m2 Krislyn Aberegg PA Work Phone: [facility] 02-28-2024 14:38-0500 Body temperature 100.4 [degF] Krislyn Aberegg PA Work Phone: [facility] 02-28-2024 14:38-0500 Body weight 82 kg Krislyn Aberegg PA Work Phone: [facility] 02-28-2024 14:38-0500 Diastolic blood pressure 69 mm[Hg] Krislyn Aberegg PA Work Phone: [facility] 02-28-2024 14:38-0500 Heart rate 84 /min Krislyn Aberegg PA Work Phone: [facility] 02-28-2024 14:38-0500 Respiratory rate 22 /min Krislyn Aberegg PA Work Phone: [facility] 02-28-2024 14:38-0500 SaO2% (BldA) [Mass fraction] 98 % Octaviano Ayoub PA Work Phone: [facility] 02-28-2024 14:38-0500 Systolic blood pressure 103 mm[Hg] Octaviano Changg PA Work Phone: [facility] 02-22-2024 12:35-0500 Body mass index (BMI) [Ratio] 27.83 kg/m2 Anna Suppan CARBON ACCOUNTANT.SAUSAGE GRINDER Work Phone: [facility] 02-22-2024 12:35-0500 Body weight 83.01 kg Anna Suppan CARBON ACCOUNTANT.SAUSAGE GRINDER Work Phone: [facility] 02-22-2024 12:35-0500 Diastolic blood pressure 72 mm[Hg] Anna Suppan CARBON ACCOUNTANT.SAUSAGE GRINDER Work Phone: [facility] 02-22-2024 12:35-0500 Heart rate 69 /min Anna Suppan CARBON ACCOUNTANT.SAUSAGE GRINDER Work Phone: [facility] 02-22-2024 12:35-0500 Respiratory rate 16 /min Anna Suppan CARBON ACCOUNTANT.SAUSAGE GRINDER Work Phone: [facility] 02-22-2024 12:35-0500 SaO2% (BldA) [Mass fraction] 98 % Anna Suppan CARBON ACCOUNTANT.SAUSAGE GRINDER Work Phone: [facility] 02-22-2024 12:35-0500 Systolic blood pressure 128 mm[Hg] Anna Suppan CARBON ACCOUNTANT.SAUSAGE GRINDER Work Phone: [facility] 02-15-2024 15:51-0500 Body height 172.7 cm Pac 1 Work Phone: [facility] 02-15-2024 15:51-0500 Body mass index (BMI) [Ratio] 28.13 kg/m2 Pac 1 Work Phone: [facility] 02-15-2024 15:51-0500 Body temperature 98.29 [degF] Pac 1 Work Phone: [facility] 02-15-2024 15:51-0500 Body weight 83.92 kg Pacc 1 Work Phone: [facility] 02-15-2024 15:51-0500 Diastolic blood pressure 78 mm[Hg] Pacc 1 Work Phone: [facility] 02-15-2024 15:51-0500 Heart rate 70 /min Pacc 1 Work Phone: [facility] 02-15-2024 15:51-0500 Respiratory rate 14 /min Pacc 1 Work Phone: [facility] 02-15-2024 15:51-0500 SaO2% (BldA) [Mass fraction] 92 % Pacc 1 Work Phone: [facility] 02-15-2024 15:51-0500 Systolic blood pressure 120 mm[Hg] Pacc 1 Work Phone: [facility] 11-27-2023 08:43-0400 Body height 175.3 cm Jae Sterling MD Work Phone: [facility] 11-27-2023 08:43-0400 Body mass index (BMI) [Ratio] 28.38 kg/m2 Jae Sterling MD Work Phone: [facility] 11-27-2023 08:43-0400 Body temperature 97.81 [degF] Jae Sterling MD Work Phone: [facility] 11-27-2023 08:43-0400 Body weight 87.2 kg Jae Sterling MD Work Phone: [facility] 11-27-2023 08:43-0400 Diastolic blood pressure 74 mm[Hg] Jae Sterling MD Work Phone: [facility] 11-27-2023 08:43-0400 Heart rate 58 /min Jae Sterling MD Work Phone: [facility] 11-27-2023 08:43-0400 SaO2% (BldA) [Mass fraction] 100 % Jae Sterling MD Work Phone: [facility] 11-27-2023 08:43-0400 Systolic blood pressure 115 mm[Hg] Jae Sterling MD Work Phone: [facility] 10-30-2023 16:46-0400 Body mass index (BMI) [Ratio] 28.65 kg/m2 Maira Escamilla MD Work Phone: [facility] 10-30-2023 16:46-0400 Body weight 88 kg Maira Escamilla MD Work Phone: [facility] 10-30-2023 16:46-0400 Diastolic blood pressure 58 mm[Hg] Maira Escamilla MD Work Phone: [facility] 10-30-2023 16:46-0400 Heart rate 77 /min Maira Escamilla MD Work Phone: [facility] 10-30-2023 16:46-0400 SaO2% (BldA) [Mass fraction] 98 % Maira Escamilla MD Work Phone: [facility] 10-30-2023 16:46-0400 Systolic blood pressure 98 mm[Hg] Maira Escamilla MD Work Phone: [facility] 10-08-2023 10:19-0400 Body height 175.3 cm Bonny Henry APRN.SAUSAGE GRINDER Work Phone: [facility] 10-08-2023 10:19-0400 Body mass index (BMI) [Ratio] 28.06 kg/m2 Bonny Henry APRN.SAUSAGE GRINDER Work Phone: [facility] 10-08-2023 10:19-0400 Body weight 86.18 kg Bonny Henry APRN.SAUSAGE GRINDER Work Phone: [facility] 10-06-2023 09:17-0400 Body mass index (BMI) [Ratio] 28.81 kg/m2 Preethi Skinner PA-C Work Phone: [facility] 10-06-2023 09:17-0400 Body weight 88.54 kg Preethi Skinner PA-C Work Phone: [facility] 10-06-2023 09:17-0400 Diastolic blood pressure 67 mm[Hg] Preethi Villagomezer PA-C Work Phone: [facility] 10-06-2023 09:17-0400 Heart rate 61 /min Preethi Villagomezer PA-C Work Phone: [facility] 10-06-2023 09:17-0400 Respiratory rate 16 /min Preethi Villagomezer PA-C Work Phone: [facility] 10-06-2023 09:17-0400 SaO2% (BldA) [Mass fraction] 100 % Preethi Villagomezer PA-C Work Phone: [facility] 10-06-2023 09:17-0400 Systolic blood pressure 107 mm[Hg] Preethi Villagomezer PA-C Work Phone: [facility] 09-28-2023 15:04-0400 Body height 175.3 cm Alison Cetin DO Work Phone: [facility] 09-28-2023 15:04-0400 Body mass index (BMI) [Ratio] 29.11 kg/m2 Alison Cetin DO Work Phone: [facility] 09-28-2023 15:04-0400 Body weight 89.45 kg Alison Cetin DO Work Phone: [facility] 09-28-2023 15:04-0400 Diastolic blood pressure 65 mm[Hg] Alison Cetin DO Work Phone: [facility] 09-28-2023 15:04-0400 Heart rate 72 /min Alison Cetin DO Work Phone: [facility] 09-28-2023 15:04-0400 Systolic blood pressure 103 mm[Hg] Alison Cetin DO Work Phone: [facility] 08-31-2023 17:51-0400 Body temperature 96.98 [degF] DR SHARON NARANJO MD [facility] 08-31-2023 17:51-0400 Body weight 89.[address] SHARON NARANJO MD [facility] 08-31-2023 17:51-0400 Diastolic Blood Pressure Non-Invasive 72 mm[Hg] DR SHARON NARANJO MD [facility] 08-31-2023 17:51-0400 Heart rate 66 /min DR SHARON NARANJO MD [facility] 08-31-2023 17:51-0400 Respiratory rate 18 /min DR SHARON NARANJO MD [facility] 08-31-2023 17:51-0400 Systolic Blood Pressure Non-Invasive 110 mm[Hg] DR SHARON NARANJO MD [facility] 08-25-2023 14:03-0400 Body height 175.3 cm Maira Escamilla MD Work Phone: [facility] 08-25-2023 14:03-0400 Body mass index (BMI) [Ratio] 28.86 kg/m2 Maira Escamilla MD Work Phone: [facility] 08-25-2023 14:03-0400 Body weight 88.63 kg Maira Escamilla MD Work Phone: [facility] 08-25-2023 14:03-0400 Diastolic blood pressure 70 mm[Hg] Maira Escamilla MD Work Phone: [facility] 08-25-2023 14:03-0400 Heart rate 74 /min Maira Escamilla MD Work Phone: [facility] 08-25-2023 14:03-0400 Systolic blood pressure 106 mm[Hg] Maira Escamilla MD Work Phone: [facility] 05-04-2023 08:39-0400 Body height 175.3 cm Alison Jules DO Work Phone: [facility] 05-04-2023 08:39-0400 Body weight 103.9 kg Alison Jules DO Work Phone: [facility] 05-04-2023 08:39-0400 Diastolic blood pressure 69 mm[Hg] Alison Jules DO Work Phone: [facility] 05-04-2023 08:39-0400 Heart rate 62 /min Alison Jules DO Work Phone: [facility] 05-04-2023 08:39-0400 SaO2% (BldA) [Mass fraction] 99 % Alison Jules DO Work Phone: [facility] 05-04-2023 08:39-0400 Systolic blood pressure 120 mm[Hg] Alison Jules DO Work Phone: [facility] 03-05-2023 15:14-0500 Body height 175.26 cm [facility] 03-05-2023 15:14-0500 Body mass index (BMI) [Ratio] 37.5 kg/m2 [facility] 03-05-2023 15:14-0500 Body temperature 97.4 [degF] [facility] 03-05-2023 15:14-0500 Body weight 115.48 kg [facility] 03-05-2023 15:14-0500 Diastolic blood pressure 73 mm[Hg] [facility] 03-05-2023 15:14-0500 Heart rate 75 /min [facility] 03-05-2023 15:14-0500 Respiratory rate 18 /min [facility] 03-05-2023 15:14-0500 SaO2% (BldA) [Mass fraction] 97 % [facility] 03-05-2023 15:14-0500 Systolic blood pressure 101 mm[Hg] [facility] 02-13-2023 22:00-0500 Respiratory rate 16 /min [facility] 02-13-2023 18:50-0500 Body height 175.26 cm [facility] 02-13-2023 18:50-0500 Body mass index (BMI) [Ratio] 37.5 kg/m2 [facility] 02-13-2023 18:50-0500 Body temperature 98 [degF] [facility] 02-13-2023 18:50-0500 Body weight 115.16 kg [facility] 02-13-2023 18:50-0500 Diastolic blood pressure 93 mm[Hg] [facility] 02-13-2023 18:50-0500 Heart rate 82 /min [facility] 02-13-2023 18:50-0500 SaO2% (BldA) [Mass fraction] 100 % [facility] 02-13-2023 18:50-0500 Systolic blood pressure 129 mm[Hg] [facility] 10-03-2022 13:00-0400 Body temperature 98.2 [degF] Anthony Pendlebury CARBON ACCOUNTANT.SAUSAGE GRINDER Work Phone: [facility] 10-03-2022 13:00-0400 Body weight 124.74 kg Anthony Pendlebury CARBON ACCOUNTANT.SAUSAGE GRINDER Work Phone: [facility] 10-03-2022 13:00-0400 Diastolic blood pressure 75 mm[Hg] Anthony Pendlebury CARBON ACCOUNTANT.SAUSAGE GRINDER Work Phone: [facility] 10-03-2022 13:00-0400 Heart rate 75 /min Anthony Pendlebury CARBON ACCOUNTANT.SAUSAGE GRINDER Work Phone: [facility] 10-03-2022 13:00-0400 Respiratory rate 20 /min Anthony Pendlebury CARBON ACCOUNTANT.SAUSAGE GRINDER Work Phone: [facility] 10-03-2022 13:00-0400 SaO2% (BldA) [Mass fraction] 97 % Anthony Pendlebury CARBON ACCOUNTANT.SAUSAGE GRINDER Work Phone: [facility] 10-03-2022 13:00-0400 Systolic blood pressure 133 mm[Hg] Anthony Pendlebury CARBON ACCOUNTANT.SAUSAGE GRINDER Work Phone: [facility] 09-30-2022 16:53-0400 Diastolic blood pressure 64 mm[Hg] [facility] 09-30-2022 16:53-0400 Heart rate 71 /min [facility] 09-30-2022 16:53-0400 Respiratory rate 20 /min [facility] 09-30-2022 16:53-0400 SaO2% (BldA) [Mass fraction] 94 % [facility] 09-30-2022 16:53-0400 Systolic blood pressure 118 mm[Hg] [facility] 09-30-2022 15:11-0400 Body height 175.26 cm [facility] 09-30-2022 15:11-0400 Body mass index (BMI) [Ratio] 40.1 kg/m2 [facility] 09-30-2022 15:11-0400 Body temperature 97.8 [degF] [facility] 09-30-2022 15:11-0400 Body weight 123.5 kg [facility] 2022 11:45-0400 Body temperature 98.2 [degF] Suma Praisler-Wood CARBON ACCOUNTANT.SAUSAGE GRINDER Work Phone: [facility] 2022 11:45-0400 Body weight 124.83 kg Suma Praisler-Wood CARBON ACCOUNTANT.SAUSAGE GRINDER Work Phone: [facility] 2022 11:45-0400 Diastolic blood pressure 79 mm[Hg] Suma Praisler-Wood CARBON ACCOUNTANT.SAUSAGE GRINDER Work Phone: [facility] 2022 11:45-0400 Heart rate 121 /min Suma Praisler-Wood CARBON ACCOUNTANT.SAUSAGE GRINDER Work Phone: [facility] 2022 11:45-0400 Respiratory rate 18 /min Suma Praisler-Wood CARBON ACCOUNTANT.SAUSAGE GRINDER Work Phone: [facility] 2022 11:45-0400 SaO2% (BldA) [Mass fraction] 93 % Suma Praisler-Wood CARBON ACCOUNTANT.SAUSAGE GRINDER Work Phone: [facility] 2022 11:45-0400 Systolic blood pressure 124 mm[Hg] Suma Praisler-Wood CARBON ACCOUNTANT.SAUSAGE GRINDER Work Phone: [facility] 06-11-2022 11:42-0400 Body height 175.3 cm Maira Escamilla MD Work Phone: [facility] 06-11-2022 11:42-0400 Body weight 126.55 kg Maira Escamilla MD Work Phone: [facility] 06-11-2022 11:42-0400 Diastolic blood pressure 68 mm[Hg] Maira Escamilla MD Work Phone: [facility] 06-11-2022 11:42-0400 Heart rate 60 /min Maira Escamilla MD Work Phone: [facility] 06-11-2022 11:42-0400 SaO2% (BldA) [Mass fraction] 98 % Maira Escamilla MD Work Phone: [facility] 06-11-2022 11:42-0400 Systolic blood pressure 110 mm[Hg] Maira Escamilla MD Work Phone: [facility] 05-22-2022 11:26-0400 Body height 175.3 cm Maira Escamilla MD Work Phone: [facility] 05-22-2022 11:26-0400 Body weight 127.91 kg Maira Escamilla MD Work Phone: [facility] 05-22-2022 11:26-0400 Diastolic blood pressure 64 mm[Hg] Maira Escamilla MD Work Phone: [facility] 05-22-2022 11:26-0400 Heart rate 71 /min Maira Escamilla MD Work Phone: [facility] 05-22-2022 11:26-0400 SaO2% (BldA) [Mass fraction] 99 % Maira Escamilla MD Work Phone: [facility] 05-22-2022 11:26-0400 Systolic blood pressure 104 mm[Hg] Maira Escamilla MD Work Phone: [facility] 04-11-2022 11:48-0500 Body weight 133.36 kg Alison Jules DO Work Phone: [facility] 03-31-2022 13:57-0500 Body weight 136.62 kg Makeda Smith APRN.CNP Work Phone: [facility] 03-31-2022 13:57-0500 Diastolic blood pressure 64 mm[Hg] Makeda Lynn CARBON ACCOUNTANT.SAUSAGE GRINDER Work Phone: [facility] 03-31-2022 13:57-0500 Systolic blood pressure 100 mm[Hg] Makeda Lynn CARBON ACCOUNTANT.SAUSAGE GRINDER Work Phone: [facility] 02-22-2022 12:36-0500 Body temperature 99.1 [degF] Jacqueline Boston APRN.SAUSAGE GRINDER Work Phone: [facility] 02-22-2022 12:36-0500 Body weight 142.7 kg Jacqueline Boston APRN.SAUSAGE GRINDER Work Phone: [facility] 02-22-2022 12:36-0500 Diastolic blood pressure 70 mm[Hg] Jacqueline Boston CARBON ACCOUNTANT.SAUSAGE GRINDER Work Phone: [facility] 02-22-2022 12:36-0500 Heart rate 84 /min Jacqueline Boston APRN.SAUSAGE GRINDER Work Phone: [facility] 02-22-2022 12:36-0500 Respiratory rate 18 /min Jacqueline Boston APRN.SAUSAGE GRINDER Work Phone: [facility] 02-22-2022 12:36-0500 SaO2% (BldA) [Mass fraction] 98 % Jacqueline Boston APRN.SAUSAGE GRINDER Work Phone: [facility] 02-22-2022 12:36-0500 Systolic blood pressure 122 mm[Hg] Jacqueline Boston APRN.SAUSAGE GRINDER Work Phone: [facility] 12-10-2021 11:38-0400 Diastolic blood pressure 82 mm[Hg] Viviana Haagen CARBON ACCOUNTANT.SAUSAGE GRINDER Work Phone: [facility] 12-10-2021 11:38-0400 Heart rate 72 /min Viviana Haagen CARBON ACCOUNTANT.SAUSAGE GRINDER Work Phone: [facility] 12-10-2021 11:38-0400 Respiratory rate 18 /min Viviana Haagen CARBON ACCOUNTANT.SAUSAGE GRINDER Work Phone: [facility] 12-10-2021 11:38-0400 SaO2% (BldA) [Mass fraction] 97 % Viviana Marie CARBON ACCOUNTANT.SAUSAGE GRINDER Work Phone: [facility] 12-10-2021 11:38-0400 Systolic blood pressure 124 mm[Hg] Viviana Marie CARBON ACCOUNTANT.SAUSAGE GRINDER Work Phone: [facility] 10-23-2021 13:30-0400 Diastolic blood pressure 69 mm[Hg] Nurse 5 Work Phone: [facility] 10-23-2021 13:30-0400 Heart rate 71 /min Nurse 5 Work Phone: [facility] 10-23-2021 13:30-0400 Respiratory rate 20 /min Nurse 5 Work Phone: [facility] 10-23-2021 13:30-0400 SaO2% (BldA) [Mass fraction] 100 % Nurse 5 Work Phone: [facility] 10-23-2021 13:30-0400 Systolic blood pressure 128 mm[Hg] Nurse 5 Work Phone: [facility] 10-23-2021 10:04-0400 Body temperature 97.3 [degF] Nurse 5 Work Phone: [facility] 10-18-2021 10:45-0400 Body height 175.[address] [facility] 10-18-2021 10:45-0400 Body weight 166.[address] [facility] 09-18-2021 11:36-0400 Body height 175.3 cm Pacc 1 Work Phone: [facility] 09-18-2021 11:36-0400 Body temperature 97.9 [degF] Pacc 1 Work Phone: [facility] 09-18-2021 11:36-0400 Body weight 178.72 kg Pacc 1 Work Phone: [facility] 09-18-2021 11:36-0400 Diastolic blood pressure 72 mm[Hg] Pacc 1 Work Phone: [facility] 09-18-2021 11:36-0400 Heart rate 101 /min Pacc 1 Work Phone: [facility] 09-18-2021 11:36-0400 Respiratory rate 16 /min Pacc 1 Work Phone: [facility] 09-18-2021 11:36-0400 SaO2% (BldA) [Mass fraction] 96 % Pacc 1 Work Phone: [facility] 09-18-2021 11:36-0400 Systolic blood pressure 118 mm[Hg] Pacc 1 Work Phone: [facility] 08-06-2021 11:31-0400 Diastolic blood pressure 84 mm[Hg] Viviana Haagen CARBON ACCOUNTANT.SAUSAGE GRINDER Work Phone: [facility] 08-06-2021 11:31-0400 Heart rate 92 /min Viviana Haagen CARBON ACCOUNTANT.SAUSAGE GRINDER Work Phone: [facility] 08-06-2021 11:31-0400 Respiratory rate 18 /min Viviana Haagen CARBON ACCOUNTANT.SAUSAGE GRINDER Work Phone: [facility] 08-06-2021 11:31-0400 SaO2% (BldA) [Mass fraction] 99 % Viviana Haagen CARBON ACCOUNTANT.SAUSAGE GRINDER Work Phone: [facility] 08-06-2021 11:31-0400 Systolic blood pressure 126 mm[Hg] Viviana Haagen CARBON ACCOUNTANT.SAUSAGE GRINDER Work Phone: [facility] 07-30-2021 08:49-0400 Body height 175.[address] Work Phone: [facility] 07-30-2021 08:49-0400 Body weight 181.[address] Work Phone: [facility] 07-24-2021 11:45-0400 Body height 175.3 cm Cris Mishra CARBON ACCOUNTANT.SAUSAGE GRINDER Work Phone: [facility] 07-24-2021 11:45-0400 Body weight 181.44 kg Cris Mishra CARBON ACCOUNTANTMarivelSAUSAGE GRINDER Work Phone: [facility] 07-15-2021 08:54-0400 Body weight 184.61 kg Donald Pearl MD Work Phone: [facility] 07-15-2021 08:54-0400 Diastolic blood pressure 74 mm[Hg] Donald Pearl MD Work Phone: [facility] 07-15-2021 08:54-0400 Heart rate 78 /min Donald Pearl MD Work Phone: [facility] 07-15-2021 08:54-0400 Respiratory rate 18 /min Donald Pearl MD Work Phone: [facility] 07-15-2021 08:54-0400 SaO2% (BldA) [Mass fraction] 98 % Donald Pearl MD Work Phone: [facility] 07-15-2021 08:54-0400 Systolic blood pressure 118 mm[Hg] Donald Pearl MD Work Phone: [facility] 06-24-2021 16:07-0400 Heart rate 88 /min [facility] Work Phone: 06-24-2021 16:07-0400 Respiratory rate 16 /min [facility] Work Phone: 06-24-2021 16:07-0400 SaO2% (BldA) [Mass fraction] 99 % [facility] Work Phone: 06-24-2021 14:18-0400 Body temperature 98 [degF] [facility] Work Phone: 06-24-2021 14:18-0400 Diastolic blood pressure 93 mm[Hg] [facility] Work Phone: 06-24-2021 14:18-0400 Systolic blood pressure 147 mm[Hg] [facility] Work Phone: 06-24-2021 14:16-0400 Body height 175.26 cm [facility] Work Phone: 06-24-2021 14:16-0400 Body mass index (BMI) [Ratio] 61.2 kg/m2 [facility] Work Phone: 06-24-2021 14:160400 Body weight 188.24 kg [facility] Work Phone: 06-24-2021 13:26-0400 Body temperature 97.2 [degF] Starr Leanna CARBON ACCOUNTANT.SAUSAGE GRINDER Work Phone: [facility] 06-24-2021 13:26-0400 Body weight 188.06 kg Starr Leanna CARBON ACCOUNTANT.SAUSAGE GRINDER Work Phone: [facility] 06-24-2021 13:26-0400 Diastolic blood pressure 82 mm[Hg] Starr Leanna CARBON ACCOUNTANT.SAUSAGE GRINDER Work Phone: [facility] 06-24-2021 13:26-0400 Heart rate 79 /min Starr Leanna CARBON ACCOUNTANT.SAUSAGE GRINDER Work Phone: [facility] 06-24-2021 13:26-0400 Respiratory rate 21 /min Starr Leanna CARBON ACCOUNTANT.SAUSAGE GRINDER Work Phone: [facility] 06-24-2021 13:26-0400 SaO2% (BldA) [Mass fraction] 98 % Starr Leanna CARBON ACCOUNTANT.SAUSAGE GRINDER Work Phone: [facility] 06-24-2021 13:26-0400 Systolic blood pressure 124 mm[Hg] Starr Leanna CARBON ACCOUNTANT.SAUSAGE GRINDER Work Phone: [facility] 06-18-2021 14:15-0400 Body height 168.9 cm Alison Bairdin DO Work Phone: [facility] 06-18-2021 14:15-0400 Body weight 187.34 kg Alison Cetin DO Work Phone: [facility] 06-18-2021 14:15-0400 Diastolic blood pressure 76 mm[Hg] Alison Cetin DO Work Phone: [facility] 06-18-2021 14:15-0400 Heart rate 100 /min Alison Cetin DO Work Phone: [facility] 06-18-2021 14:15-0400 Systolic blood pressure 140 mm[Hg] Alison Cetin DO Work Phone: [facility] 05-22-2021 10:59-0400 Body height 175.[address] Work Phone: [facility] 05-22-2021 10:59-0400 Body weight 191.[address] Work Phone: [facility] 05-21-2021 16:11-0400 Body height 173.2 cm Alison Cetin DO Work Phone: [facility] 05-21-2021 16:11-0400 Body weight 191.87 kg Alison Cetin DO Work Phone: [facility] 05-21-2021 16:11-0400 Diastolic blood pressure 84 mm[Hg] Alison Cetin DO Work Phone: [facility] 05-21-2021 16:11-0400 Heart rate 86 /min Alison Cetin DO Work Phone: [facility] 05-21-2021 16:11-0400 Systolic blood pressure 138 mm[Hg] Alison Cetin DO Work Phone: [facility] NEGATED: Highlighted [id number] 10:42-0400 BMI (Body Mass Index) 62.26 kg/m2 Shirley Ashley AT [facility] Work Phone: NEGATED: Highlighted [id number] 10:42-0400 Body weight 185 [address] Ashley [address] [facility] Work Phone: NEGATED: Highlighted [id number] 10:42-0400 Body weight 185.07 [address] [facility] Work Phone: NEGATED: Highlighted [id number] Height 173 cm [address] Ashley [address] [facility] Work Phone: NEGATED: Highlighted [id number] Height 172.72 [address] [facility] Work Phone: Encounters Encounter Date Encounter Type Care Provider Facility Start: 09-15-2024 ambulatory [facility] Facility:[facility] Start: 09-01-2024 ambulatory [facility] Facility:[facility] Start: 08-31-2024 End: 08-31-2024 Office outpatient visit 15 minutes Enrique Barba MD Work Phone: [facility] Comment on above: Otalgia, left (Prima ry Dx) Start: 08-30-2024 Encounter for other preprocedural examination [facility] Start: 08-24-2024 End: 08-24-2024 ambulatory BEULAH CAMPA Facility:[facility] Start: 08-24-2024 End: 08-24-2024 Patient encounter procedure Beulah Campa MD Work Phone: OB/Gynecology Comment on above: Adenomyosis of uteru s (Primary Dx); Arcuate uterus; Intramural uterine fibroid; Dysmenorrhea; Abnormal uterine bleeding (AUB) Start: 08-16-2024 End: 08-16-2024 Emergency department patient visit Dr. Maira Escamilla MD Work Phone: -Emergency Department Work Phone: Start: 08-07-2024 End: 08-07-2024 ambulatory Makeda Horta RN NURSE [employer] WORK[employer] Comment on above: Patient Update Start: 08-04-2024 End: 08-04-2024 Patient encounter procedure Makeda Smith APRN.CNP Work Phone: OB/Gynecology Comment on above: Abnormal uterine ble eding (AUB) (Primary Dx); Adenomyosis of uterus Start: 08-04-2024 End: 08-04-2024 ambulatory MAKEDA SMITH Facility:[facility] Start: 08-01-2024 End: 08-01-2024 Patient encounter procedure Beulah Campa MD Work Phone: OB/Gynecology Comment on above: Menorrhagia with reg ular cycle (Primary Dx); Dysmenorrhea Start: 08-01-2024 End: 08-01-2024 ambulatory BEULAH CAMPA Facility:[facility] Start: 07-26-2024 End: 07-26-2024 Telephone encounter Makeda mSith APRN.SAUSAGE GRINDER Work Phone: OB/Gynecology Comment on above: Patient Question Start: 07-22-2024 End: 07-22-2024 Patient encounter procedure Makeda Smith APRN.SAUSAGE GRINDER Work Phone: OB/Gynecology Comment on above: Screening for cervic al cancer (Primary Dx) Start: 07-22-2024 End: 07-22-2024 ambulatory MAKEDA SMITH Facility:[facility] Start: 07-21-2024 End: 07-21-2024 Patient encounter status Screen [facility] Start: 07-21-2024 End: 07-21-2024 Subsequent hospital visit by physician Screen Mammo [facility] Mamm[facility] Comment on above: Encounter for gyneco logical examination (general) (routine) without abnormal findings [Z01.419] Start: 07-21-2024 End: 07-21-2024 ambulatory 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[facility] Work Phone: OB/Gynecology Start: 07-21-2024 End: 07-21-2024 Patient encounter procedure Us Tech 1 [facility] Start: 07-19-2024 End: 07-19-2024 Telephone encounter Makeda Smith APRN.SAUSAGE GRINDER Work Phone: OB/Gynecology Comment on above: HPV Vaccine Start: 07-18-2024 End: 07-18-2024 ambulatory Maira Escamilla MD Work Phone: [facility] [place] Comment on above: SVT (supraventricula r tachycardia) (HCC) (Primary Dx); Mild intermittent asthma, unspecified whether complicated (HCC); Gastroesophageal reflux disease without esophagitis; History of gastric bypass Start: 07-18-2024 End: 07-18-2024 Telemedicine consultation with patient Maira Escamilla MD Work Phone: Family [facility] Start: 07-14-2024 End: 07-14-2024 Chart abstracting Jae Sterling MD Work Phone: Plastic Surgery Comment on above: PHOTOS TAKEN Start: 07-14-2024 End: 07-14-2024 ambulatory MAIRA ESCAMILLA Facility:[facility] Start: 07-14-2024 End: 07-14-2024 Office outpatient visit 25 minutes Bonny Henry APRN.SAUSAGE GRINDER Work Phone: Plastic Surgery Comment on above: Excess skin (Primary Dx); Loose skin Start: 07-12-2024 End: 07-12-2024 ambulatory MAKEDAKYLE SMITH Facility:[facility] Start: 07-12-2024 Encounter for gynecological examination (general) (routine) without abnormal findings MAKEDA SMITH [facility] Start: 07-12-2024 End: 07-12-2024 Patient encounter procedure Makeda Smith APRN.SAUSAGE GRINDER Work Phone: OB/Gynecology Comment on above: Encounter for gyneco logical examination (general) (routine) without abnormal findings (Primary Dx); Screening for cervical cancer; Encounter for screening for human papillomavirus (HPV); Encounter for screening mammogram for breast cancer; Menorrhagia with regular cycle; Need for prophylactic vaccination/inoculation against viral disease Start: 07-12-2024 End: 07-12-2024 Patient encounter status Makeda Smith APRN.SAUSAGE GRINDER Work Phone: [facility] Start: 06-21-2024 End: 08-01-2024 Telephone encounter Jae Sterling MD Work Phone: Plastic Surgery Comment on above: Insurance Authorizat ion Start: 06-09-2024 End: 06-09-2024 Office outpatient visit 15 minutes Bonny Henry APRN.SAUSAGE GRINDER Work Phone: Plastic Surgery Comment on above: S/P panniculectomy ( Primary Dx) Start: 06-09-2024 End: 06-09-2024 ambulatory MAIRA ESCAMILLA Facility:[facility] Start: 06-03-2024 End: 06-03-2024 ambulatory BONNY HENRY Facility:[facility] Start: 06-02-2024 End: 06-02-2024 Emergency department patient visit Dr. Maira Escamilla MD Work Phone: -Emergency Department Work Phone: Start: 05-31-2024 End: 05-31-2024 Admission to same day surgery center Jae Sterling MD Work Phone: Plastic Surgery Comment on above: New Abcess on maria luz ng stitch Start: 05-31-2024 End: 05-31-2024 ambulatory Jae Sterling MD Work Phone: Plastic Surgery Start: 05-27-2024 End: 05-27-2024 Orders Only Bonny Henry APRN.SAUSAGE GRINDER Work Phone: Plastic Surgery Start: 05-26-2024 End: 05-26-2024 Telephone encounter Jae Sterling MD Work Phone: Internal Medicine [place] Comment on above: Abscess (/) Start: 05-12-2024 End: 05-12-2024 ambulatory [facility] Facility:[facility] Start: 05-12-2024 End: 05-12-2024 Office outpatient visit 15 minutes Bonny Henry APRN.SAUSAGE GRINDER Work Phone: Plastic Surgery Comment on above: S/P panniculectomy ( Primary Dx) Start: 05-01-2024 End: 05-01-2024 ambulatory Adela Mejía RN NURSE SODA WORKER Comment on above: Patient Update Start: 04-17-2024 End: 04-18-2024 Refill Anna Nino CARBON ACCOUNTANT.SAUSAGE GRINDER Work Phone: Family [facility] Comment on above: Refill Request Start: 04-14-2024 End: 04-14-2024 ambulatory [facility] Facility:[facility] Start: 04-14-2024 End: 04-14-2024 Postop follow up visit related to original px Bonny Henry APRN.SAUSAGE GRINDER Work Phone: Plastic Surgery Comment on above: Post-operative state (Primary Dx); S/P panniculectomy Start: 04-05-2024 End: 04-06-2024 Telephone encounter Jae Sterling MD Work Phone: Plastic Surgery Comment on above: Multiple Concerns (S ee note) Start: 03-31-2024 End: 03-31-2024 [facility] Facility:[facility] Start: 03-31-2024 End: 03-31-2024 Postop follow up visit related to original px Bonny Elaine CARBON ACCOUNTANT.SAUSAGE GRINDER Work Phone: Plastic Surgery Comment on above: Post-operative state (Primary Dx); S/P panniculectomy Start: 03-28-2024 End: 03-28-2024 Refill Maira Escamilla MD Work Phone: [facility] Comment on above: Refill Request Clinical Update Wound Check Start: 03-26-2024 End: 03-26-2024 [facility] Facility:[facility] Start: 03-26-2024 End: 03-26-2024 Patient encounter procedure Starr Ram CARBON ACCOUNTANT.SAUSAGE GRINDER Work Phone: [facility] Comment on above: Acute right-sided lo w back pain with right-sided sciatica (Primary Dx) Start: 03-24-2024 End: 03-24-2024 [facility] Facility:[facility] Start: 03-24-2024 End: 03-24-2024 Postop follow up visit related to original px Bonny Elaine CARBON ACCOUNTANT.SAUSAGE GRINDER Work Phone: Plastic Surgery Comment on above: Post-operative state (Primary Dx); S/P panniculectomy Start: 03-21-2024 End: 03-21-2024 Telephone encounter Jae Sterling MD Work Phone: Plastic Surgery Comment on above: Nausea, stomach upse t; Patient Question Start: 03-14-2024 End: 03-14-2024 [facility] Facility:[facility] Start: 03-10-2024 End: 03-10-2024 [facility] Facility:[facility] Start: 03-10-2024 End: 03-10-2024 ambulatory MAIRA Hoang FRANCINE Facility:[facility] Start: 03-10-2024 Encounter for other preprocedural examination JAE STERLING [facility] Start: 03-10-2024 End: 03-10-2024 Patient encounter procedure Jae Sterling MD Work Phone: Plastic Surgery Comment on above: Class 3 severe obesi ty due to excess calories without serious comorbidity with body mass index (BMI) of 50.0 to 59.9 in adult (HCC) (Primary Dx); Pre-op evaluation Start: 03-10-2024 End: 03-10-2024 Preprocedural examination done Jae Sterling MD Work Phone: [facility] Work Phone: Start: 03-08-2024 End: 03-08-2024 Patient encounter procedure Magdalena SINGH -[facility] Work Phone: Start: 03-08-2024 End: 03-08-2024 ambulatory Maira Escamilla Facility:[facility] Start: 03-02-2024 End: 07-14-2024 Telephone encounter Mary Moura APRN.CNP Work Phone: Pre Anesthesia Comment on above: Pre-op Illness Start: 02-29-2024 End: 02-29-2024 [facility]ill [facility] Work Phone: [facility] Start: 02-28-2024 End: 02-28-2024 Patient encounter procedure Octaviano SINGH Work Phone: [facility] Comment on above: Flu-like symptoms (P rimary Dx); Influenza A Start: 02-28-2024 End: 02-28-2024 ambulatory Bobbi Fitzgerald RN NURSE SODA WORKER Comment on above: Viral Syndrome Start: 02-23-2024 End: 02-25-2024 Telephone encounter Rola DIANE Navigation Start: 02-22-2024 End: 02-22-2024 Telephone encounter Maira Escamilla MD Work Phone: [facility] [place] Comment on above: Future Appointment Start: 02-22-2024 End: 02-22-2024 ambulatory [facility] Facility:[facility] Start: 02-22-2024 End: 02-22-2024 Office outpatient visit 15 minutes Anna Nino APRN.CNP Work Phone: [facility] Comment on above: Homeless (Primary Dx ); Anxiety with depression; Screening for depression Start: 02-15-2024 Encounter for other preprocedural examination BEULAH CAMPA [facility] Start: 02-15-2024 End: 02-15-2024 Admission to establishment Pac [facility] 1 Work Phone: Pre Anesthesia Start: 02-15-2024 End: 02-15-2024 ambulatory MARY MOURA Facility:[facility] Start: 02-15-2024 End: 02-15-[address] [facility] Work Phone: Pre Anesthesia Comment on above: Pre-operative examin ation (Primary Dx); Migraine without status migrainosus, not intractable, unspecified migraine type; SVT (supraventricular tachycardia) (HCC); Mild intermittent asthma, unspecified whether complicated; Gastroesophageal reflux disease without esophagitis; History of gastric bypass Start: 02-15-2024 End: 02-15-[address] [facility] Work Phone: [facility] Work Phone: Start: 02-15-2024 End: 02-15-2024 Telephone encounter Mary Moura APRN.SAUSAGE GRINDER Work Phone: Pre Anesthesia Start: 12-01-2023 ambulatory [facility] Facility:[facility] Start: 11-27-2023 End: 11-27-2023 Patient encounter procedure Jae Sterling MD Work Phone: [facility] Comment on above: Pre-op evaluation (P rimary Dx) Start: 11-27-2023 End: 11-27-2023 Preprocedural examination done Jae Sterling MD Work Phone: [facility] Start: 11-27-2023 End: 11-27-2023 ambulatory JAE STERLING Facility:[facility] Start: 11-27-2023 Encounter for other preprocedural examination JAE L GUSTAVO [facility] Start: 11-17-2023 End: 06-13-2024 Telephone encounter Bonny Henry APRN.SAUSAGE GRINDER Work Phone: Plastic Surgery Comment on above: Insurance Authorizat ion Start: 10-30-2023 End: 10-30-[address] [facility] Facility:[facility] Start: 10-30-2023 End: 10-30-2023 Patient encounter procedure Maira Escamilla MD Work Phone: [facility] [place] Comment on above: SVT (supraventricula r tachycardia) (HCC) (Primary Dx); Need for vaccination; Lightheaded; Palpitations; Mild intermittent asthma, unspecified whether complicated; Headache, unspecified headache type; Breast pain; History of gastric bypass; Vitamin D deficiency Start: 10-28-2023 End: 10-28-2023 Telephone encounter Maira Escamilla MD Work Phone: [facility] [place] Comment on above: Results; Erroneous e ncounter-disregard Results Start: 10-08-2023 End: 10-08-2023 Chart abstracting Jae Sterling MD Work Phone: Plastic Surgery Comment on above: PHOTOS TAKEN Start: 10-08-2023 End: 10-08-2023 ambulatory ALISON JULES Facility:[facility] Start: 10-08-2023 End: 10-08-2023 Office outpatient new 45 minutes Bonny Henry APRN.SAUSAGE GRINDER Work Phone: Plastic Surgery Comment on above: Loose skin (Primary Dx); Abdominal pannus; Rash; Dermatitis; Intertrigo Start: 10-06-2023 End: 10-06-2023 ambulatory [facility] Facility:[facility] Start: 10-06-2023 End: 10-06-2023 ambulatory [facility] Facility:[facility] Start: 10-06-2023 End: 10-11-2023 Patient encounter procedure Preethi Skinner PA-C Work Phone: Neurology Comment on above: History of migraine (Primary Dx); Headache, unspecified headache type; Tension headache Headache, unspecifie d headache type; Vision loss; Near syncope; Confusion Start: 10-05-2023 End: 10-05-2023 Telephone encounter Maira Escamilla MD Work Phone: [facility] Comment on above: Results (zio) Start: 09-28-2023 End: 09-28-2023 Refill Viviana Marie CARBON ACCOUNTANT.SAUSAGE GRINDER Work Phone: [facility] Comment on above: Refill Request Encounter for surgic al aftercare following surgery of digestive system (Primary Dx); Abdominal pannus; Vitamin D deficiency Start: 09-12-2023 ambulatory Gavi ONEAL E SODA WORKER Comment on above: Rib Injury Start: 09-02-2023 End: 09-02-2023 Emergency department patient visit [facility] Facility[facility] Start: 08-31-2023 End: 08-31-2023 Emergency department patient visit DR SHARON NARANJO MD [facility] Start: 08-25-2023 End: 08-25-2023 Subsequent hospital visit by physician [facility] Work Phone: Radiology Comment on above: URI, acute [J06.9] Start: 08-25-2023 End: 08-25-2023 Patient encounter procedure Maira Escamilla MD Work Phone: [facility] Comment on above: Chest pain, unspecif ied type (Primary Dx); Headache, unspecified headache type; History of migraine; Vision loss; Near syncope; URI, acute; Confusion; Acute cough; Recurrent cold sores Start: 08-22-2023 Telephone encounter Maira Escamilla MD Work Phone: [facility] [place] Start: 08-19-2023 Refill Viviana Marie CARBON ACCOUNTANT.SAUSAGE GRINDER Work Phone: [facility] Comment on above: Refill Request Start: 07-22-2023 End: 07-22-2023 ambulatory Viviana Marie CARBON ACCOUNTANT.SAUSAGE GRINDER Work Phone: [facility] Comment on above: Migraine without sta tus migrainosus, not intractable, unspecified migraine type (Primary Dx); Gastric bypass status for obesity; Cold intolerance; Hyperglycemia; Screening for hyperlipidemia; Cervical radiculopathy Start: 07-22-2023 End: 07-22-2023 Telemedicine consultation with patient Viviana Marie YKLE.SAUSAGE GRINDER Work Phone: [facility] Start: 07-16-2023 Refill Maira Escamilla MD Work Phone: [facility] [place] Comment on above: Refill Request Start: 05-11-2023 Refill Maira Escamilla MD Work Phone: [facility] [place] Comment on above: Refill Request Start: 05-04-2023 End: 05-04-2023 Patient encounter procedure Alison Lewis Magdy DO Work Phone: Endocrinology BMI Comment on above: Encounter for surgic al aftercare following surgery of digestive system (Primary Dx) Start: 04-15-2023 ambulatory Maira Escamilla MD Work Phone: Internal Medicine [facility] Start: 03-20-2023 Refill Hussein cade MD Work Phone: [facility] Comment on above: Refill Request Start: 03-05-2023 End: 03-05-2023 Emergency department patient visit [facility] Work Phone: Start: 02-13-2023 End: 02-13-2023 Emergency department patient visit [facility] Work Phone: Start: 10-03-2022 End: 10-03-2022 Office outpatient visit 25 minutes Anthony Spear APRN.SAUSAGE GRINDER Work Phone: [facility] Comment on above: Viral bronchitis (Pr imary Dx) Start: 09-30-2022 End: 09-30-2022 [facility] Start: 09-30-2022 Telephone encounter Maira Escamilla MD Work Phone: [facility] [place] Comment on above: prescriptions /nebul izer solution/tubing/mouth pc. Start: 2022 End: 2022 Patient encounter procedure Suma Luque APRN.SAUSAGE GRINDER Work Phone: [facility] Comment on above: Viral bronchitis (Pr imary Dx) Start: 06-16-2022 Telephone encounter Maira Escamilla MD Work Phone: [facility] [place] Comment on above: Results Start: 06-11-2022 End: 06-11-2022 Patient encounter procedure Maira Escamilla MD Work Phone: [facility] Comment on above: Lightheaded (Primary Dx); Migraine without status migrainosus, not intractable, unspecified migraine type; Gastric bypass status for obesity Start: 06-05-2022 End: 06-05-2022 ambulatory Maira Escamilla MD Work Phone: [facility] [place] Comment on above: Allergy, subsequent encounter (Primary Dx) Start: 06-05-2022 End: 06-05-2022 Telemedicine consultation with patient Maira Escamilla MD Work Phone: [facility] Start: 05-22-2022 End: 05-22-2022 Patient encounter procedure Maira Escamilla MD Work Phone: [facility] Comment on above: Sciatica, right side (Primary Dx) Start: 05-20-2022 Adilene Friedman on PA-C Work Phone: [facility] Comment on above: Refill Request Start: 05-19-2022 Telephone encounter Makeda hernandez APRN.SAUSAGE GRINDER Work Phone: OB/Gynecology Comment on above: Medication Request Start: 04-11-2022 End: 04-11-2022 Admission to same day surgery center Alison Jules DO Work Phone: General Surgery Comment on above: Encounter for surgic al aftercare following surgery of digestive system (Primary Dx); Class 3 severe obesity due to excess calories without serious comorbidity with body mass index (BMI) of 50.0 to 59.9 in adult (HCC) Start: 04-11-2022 End: 04-11-2022 Telemedicine consultation with patient Alison Jules DO Work Phone: [facility] Start: 04-02-2022 Refill Enrique rod MD Work Phone: [facility] Comment on above: Refill Request Start: 03-31-2022 End: 03-31-2022 Patient encounter procedure Makeda Smith CARBON ACCOUNTANT.SAUSAGE GRINDER Work Phone: OB/Gynecology Comment on above: Irregular menses (Pr imary Dx) Start: 03-08-2022 Documentation procedure Mammog mario alberto Coordinator [facility] Start: 03-08-2022 Letter encounter Mammography Coordinator [facility] Department Start: 03-07-2022 End: 03-07-2022 Subsequent hospital visit by physician Screen Mammo [facility] Mammogram Comment on above: Encounter for screen ing mammogram for breast cancer [Z12.31] Start: 02-22-2022 End: 02-22-2022 Patient encounter procedure Jacqueline Darvin WRIGHT.SAUSAGE GRINDER Work Phone: [facility] Comment on above: Sore throat (Primary Dx); Strep throat Start: 01-20-2022 Telephone encounter Maira Escamilla MD Work Phone: Family [facility] [place] Comment on above: Work excuse letter Start: 01-18-2022 End: 01-18-2022 ambulatory Hussein Morel MD Work Phone: Family [facility] [place] Comment on above: COVID (Primary Dx) Start: 01-18-2022 End: 01-18-2022 Telemedicine consultation with patient Hussein Morel MD Work Phone: [facility] Start: 01-17-2022 Telephone encounter Maira Escamilla MD Work Phone: Family [facility] [place] Comment on above: Patient Update Start: 01-10-2022 End: 01-10-2022 Patient encounter procedure Elise Butterfield RD Work Phone: General Surgery Comment on above: No-show for appointm ent (Primary Dx) Start: 01-10-2022 End: 01-10-2022 Telemedicine consultation with patient Elise Butterfield RD Work Phone: [facility] Start: 01-06-2022 Telephone encounter Naresh gomez MD Work Phone: General Surgery Comment on above: Returning Patient's Call Start: 12-10-2021 Telephone encounter Maira Escamilla MD Work Phone: [facility] Comment on above: Prescription Clarifi cation Start: 12-10-2021 End: 12-10-2021 Office outpatient visit 15 minutes Viviana Davidwoodrow CARBON ACCOUNTANT.SAUSAGE GRINDER Work Phone: [facility] Comment on above: Recurrent cold sores (Primary Dx); Chapped lips; Mouth pain Start: 11-16-2021 Refill M Edison Friedman on PA-C Work Phone: [facility] [place] Comment on above: Refill Request Start: 11-07-2021 Telephone encounter Lianne Welch RN General Surgery Comment on above: BMI Follow Up Start: 10-30-2021 End: 10-30-2021 Admission to same day surgery center Fellow Ladonna Main Work Phone: General Surgery Comment on above: Morbid obesity due t o excess calories (HCC) (Primary Dx); Bariatric surgery status Start: 10-30-2021 End: 10-30-2021 Telemedicine consultation with patient Ester Dougherty Main Work Phone: [facility] Start: 10-26-2021 Telephone encounter Akshat Pinto MD Work Phone: General Surgery Comment on above: URI Start: 10-23-2021 Admission to same [facility] surgery center Dionicio Faith MD Work Phone: General Surgery Comment on above: Bariatric surgery [facility] (Primary Dx) Start: 10-23-2021 End: 10-23-2021 Subsequent hospital visit by physician Nurse Gi Proc 5 Work Phone: Gastroenterology Start: 10-22-2021 Admission to [facility] surgery center Dionicio Faith MD Work Phone: General Surgery Comment on above: Bariatric surgery [facility] (Primary Dx) Start: 10-22-2021 Telephone encounter Sabino Sorianojason schaeffer APRN.SAUSAGE GRINDER Work Phone: [facility] Comment on above: Initial Consult (Urg ent Dispatch) Medication Problem Start: 10-21-2021 Admission to [facility] surgery center Dionicio Faith MD Work Phone: General Surgery Comment on above: Bariatric surgery [facility] (Primary Dx) Start: 10-21-2021 Telephone encounter Lianne Welch RN General Surgery Comment on above: returning patitent c all Start: 10-18-2021 End: 10-18-2021 ambulatory Naresh Schmitz MD Work Phone: General Surgery Comment on above: Patient Education; R eassessment Start: 10-09-2021 End: 10-09-2021 Telemedicine consultation with patient Fellow Ladonna Main Work Phone: [facility] Start: 10-09-2021 End: 10-09-2021 ambulatory Fellow Ladonna Main Work Phone: General Surgery Comment on above: Morbid obesity due t o excess calories (HCC) (Primary Dx) Start: 10-09-2021 Telephone encounter Lianne Welch RN General Surgery Comment on above: Returning Patient's Call Start: 10-04-2021 Patient Outreach Esther Urrutia on RN Work Phone: [employer] Management Comment on above: Transition Of Care ( /TCM Initial Hospital Discharge [facility] on 10-03-21./) Post Op Medication Problem Start: 09-24-2021 Telephone encounter Lianne Welch RN General Surgery Comment on above: BMI Follow Up Start: 09-18-2021 End: 09-18-2021 Admission to [facility] Work Phone: [facility] Start: 09-18-2021 End: 09-18-2021 ambulatory Naresh Schmitz MD Work Phone: Pre Anesthesia Comment on above: Pre-operative examin ation (Primary Dx); Class 3 severe obesity due to excess calories without serious comorbidity with body mass index (BMI) of 50.0 to 59.9 in adult (HCC); Gastroesophageal reflux disease without esophagitis; Migraine without status migrainosus, not intractable, unspecified migraine type; Mild intermittent asthma, unspecified whether complicated; SVT (supraventricular tachycardia) ([facility]) Start: 09-18-2021 End: 09-18-2021 Preprocedural examination done Naresh Schmitz MD Work Phone: Pre Anesthesia Start: 09-17-2021 Telephone encounter Lianne Welch RN General Surgery Comment on above: Returning Patient's Call Refill Request Start: 09-13-2021 Telephone encounter Lianne Welch RN General Surgery Comment on above: Preparations For Rosetta jaylan Start: 09-03-2021 Telephone encounter Suma Monsalve RN General Surgery Comment on above: Schedule Surgery Start: 08-27-2021 End: 08-27-2021 Patient encounter procedure Gorge Sterling MD Work Phone: Dermatology Comment on above: Excoriation of face, subsequent encounter (Primary Dx) Start: 08-14-2021 Refill Maira Escamilla MD Work Phone: [facility] [place] Comment on above: Refill Request Start: 08-07-2021 ambulatory Naresh Schmitz MD Work Phone: General Surgery Comment on above: 10/01/2021 Start: 08-07-2021 Preprocedural examination done Naresh Schmitz MD Work Phone: General Surgery Start: 08-06-2021 End: 08-06-2021 Patient encounter procedure Viviana Marie APRN.CNP Work Phone: [facility] [place] Comment on above: Facial rash (Primary Dx) Start: 07-30-2021 End: 07-30-[address] Work Phone: General Surgery Comment on above: Morbid obesity (HCC) (Primary Dx); Dietary counseling and surveillance Start: 07-30-2021 End: 07-30-2021 Telemedicine consultation with patient Daniel Benitez RD Work Phone: [facility] Start: 07-24-2021 End: 07-24-2021 [facility] Cris Mishra CARBON ACCOUNTANT.SAUSAGE GRINDER Work Phone: General Surgery Comment on above: Class 3 severe obesi ty due to excess calories with body mass index (BMI) of 50.0 to 59.9 in adult, unspecified whether serious comorbidity present (HCC) (Primary Dx); Weight disorder; Medication management Start: 07-15-2021 End: 07-15-2021 Patient encounter procedure Donald Pearl MD Work Phone: [facility] Comment on above: Cubital tunnel syndr ome on left (Primary Dx) Refill Request Start: 06-26-2021 Telephone encounter Maira Escamilla MD Work Phone: [facility] Comment on above: Patient Update Start: 06-24-2021 End: 06-24-2021 Emergency department patient [facility] Start: 06-24-2021 ambulatory Maira Escamilla MD Work Phone: [facility] Comment on above: Abdominal Pain Start: 06-24-2021 End: 06-24-2021 Patient encounter procedure Starr Haqueelham WRIGHT.SAUSAGE GRINDER Work Phone: [facility] Comment on above: Abdominal pain, unsp ecified abdominal location (Primary Dx) Start: 06-18-2021 End: 06-18-2021 Patient encounter procedure Alison Jules DO Work Phone: General Surgery Comment on above: Class 3 severe obesi ty with serious comorbidity and body mass index (BMI) of 60.0 to 69.9 in adult, unspecified obesity type (HCC) (Primary Dx) Start: 06-18-2021 Telephone encounter Raul Diaz BLACK PULLER General Surgery Comment on above: Appointment (Called and got patient added onto Dr. Jules's schedule for 06/18/21 @ 2pm. Pt accepted appointment.) Start: 06-17-2021 Telephone encounter Alison Jules DO Work Phone: General Surgery Comment on above: Appointment (Patient called office. Said she is having trouble scheduling her 5 week appointment, and would like a call back. Her phone number is [phone]. 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-130pm) Start: 06-13-2021 ambulatory Alison gomez DO Work Phone: General Surgery Comment on above: Difficulties Schedul ing Start: 05-22-2021 End: 05-22-[address] Work Phone: General Surgery Comment on above: Morbid obesity (HCC) (Primary Dx); Dietary counseling and surveillance Start: 05-22-2021 End: 05-22-2021 Telemedicine consultation with patient Daniel Benitez RD Work Phone: [facility] Start: 05-21-2021 End: 05-21-2021 Patient encounter procedure Alison Jules DO Work Phone: General Surgery Comment on above: Class 3 severe obesi ty with serious comorbidity and body mass index (BMI) of 60.0 to 69.9 in adult, unspecified obesity type (HCC) (Primary Dx) Start: 05-01-2021 End: 05-01-2021 Subsequent hospital visit by physician Xr [facility] [place] Work Phone: Radiology Comment on above: Class 3 severe obesi ty due to excess calories without serious comorbidity with body mass index (BMI) of 60.0 to 69.9 in adult (HCC) [E66.01, Z68.44] Start: 02-22-2021 End: 02-22-2021 Subsequent hospital visit by physician Xr [facility] [place] Work Phone: Radiology Comment on above: Pain [R52] Start: 09-27-2019 End: 09-27-2019 Patient encounter procedure Sri Duran CARBON ACCOUNTANT-SAUSAGE GRINDER Work Phone: [facility] Work Phone: Start: 09-27-2019 End: 09-27-2019 Pt evaluation Sri Duran CARBON ACCOUNTANT-SAUSAGE GRINDER Work Phone: [facility] Work Phone: Procedures Date Procedure Procedure Detail Performing Clinician Start: 08-16-2024 SARS-CoV-2, Influenz a & RSV (PCR) Dr. Maira Escamilla MD Work Phone: Start: 08-16-2024 Urnls dip stick/tabl et reagent auto microscopy Dr. Maira Escamilla MD Work Phone: Start: 08-16-2024 Plain chest X-ray Dr. Ace Escamilla MD Work Phone: Start: 08-16-[address] Maira Escamilla MD Work Phone: Start: 08-04-2024 UA DIP,URINE HCG (POC) Makeda Apollo CARBON ACCOUNTANT.SAUSAGE GRINDER Work Phone: Start: 07-21-2024 Us pelvic nonobstetr ic real-time image complete Makeda Lynn CARBON ACCOUNTANT.SAUSAGE GRINDER Work Phone: Start: 06-02-[address] Maira Escamilla MD Work Phone: Start: 06-02-2024 Blood culture Dr. Ras Escamilla MD Work Phone: Start: 02-28-2024 INFLUENZA A&B MOLECU LAR (POC) Octaviano SINGH Work Phone: Start: 02-22-2024 Adult depression scr eening assessment Maira Escamilla MD Work Phone: Start: 10-30-2023 PFIZER[employer] COVI D-19 VACCINE AGE 12+ YR Maira Escamilla MD Work Phone: Start: 10-06-2023 Electroencephalogram w/rec awake&drowsy Maira Escamilla MD Work Phone: Start: 08-25-2023 Radiologic exam ches t 2 views Maira Ecsamilla MD Work Phone: Start: 02-13-2023 SARS-CoV-2, Influenz a & RSV (PCR) Start: 09-30-2022 Plain chest X-ray Start: 03-07-2022 End: 03-07-2022 Mammography Bulk Order Provider Start: 02-22-2022 STREP A MOLECULAR (POC) Tri Johnston MA Start: 06-24-2021 Computed tomography of abdomen and pelvis with intravenous contrast Start: 05-01-2021 Radiologic exam ches t 2 views Alison Jules DO Work Phone: Start: 05-01-2021 Adult depression scr eening assessment Alison Jules DO Work Phone: Start: 02-22-2021 Radiologic exam knee complete 4/more views Pan Hyman MD Work Phone: Start: 09-27-2019 End: 09-27-2019 Blood pressure screening not performed - reason not given Sri Duran CARBON ACCOUNTANT-SAUSAGE GRINDER Work Phone: Start: 09-27-2019 End: 09-27-2019 BMI documented as above normal parameters - follow-up documented Sri Duran [employer]BON ACCOUNTANT-SAUSAGE GRINDER Work Phone: Start: 09-27-2019 End: 09-27-2019 Documentation of current medications Sri Duran CARBON ACCOUNTANT-SAUSAGE GRINDER Work Phone: Start: 09-27-2019 End: 09-27-2019 Pain assessment documented as positive - follow-up documented Sri Opsitmessi CARBON ACCOUNTANT-SAUSAGE GRINDER Work Phone: Start: 09-27-2019 End: 09-27-2019 Tobacco non-user Sribarrera Duran CARBON ACCOUNTANT-SAUSAGE GRINDER Work Phone: H/O: surgery S/P panniculectomy Bonny Pat christi CARBON ACCOUNTANT.SAUSAGE GRINDER Work Phone: H/O: surgery S/P panniculectomy Bonny Pat christi CARBON ACCOUNTANT.SAUSAGE GRINDER Work Phone: H/O: surgery S/P panniculectomy Bonny Pat christi CARBON ACCOUNTANT.SAUSAGE GRINDER Work Phone: H/O: surgery S/P panniculectomy Bonny Pat christi CARBON ACCOUNTANT.SAUSAGE GRINDER Work Phone: H/O: surgery S/P panniculectomy Bonny Pat christi CARBON ACCOUNTANT.SAUSAGE GRINDER Work Phone: H/O: tubal ligation History of b ilateral tubal ligation History of cholecystectomy Hx of cholecys tectomy Comment on above: 2010 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 Comment on above: September 2021 NEGATED: Highlighted rowStart: 09-27-2019 End: 09-27-2019 Documentation of current medications Shirley Ashley AT Plan of Treatment Date Care Activity Detail Author Start: 07-22-2029 Screening for malignant neoplasm of cervix Cervical Cancer Screening [facility] Start: 07-12-2029 Screening for malignant neoplasm of cervix Cervical Cancer Screening [facility] Start: 07-21-2025 Screening for malignant neoplasm of breast Mammogram Screening [facility] Start: 07-18-2025 Annual PCP Team Chronic Disease Visit Annual PCP Team Chronic Disease Visit [facility] Start: 07-13-2025 End: 07-13-2025 Patient encounter procedure 07/13/2025 1:30 PM EDT Office Visit OB/Gynecology [address] [place] [address] Makeda Smith APRN.SAUSAGE GRINDER [address] [place] [address] annual OB/Gynecology Comment on above: annual Start: 02-21-2025 Annual PCP Team Chronic Disease Visit Annual PCP Team Chronic Disease Visit [facility] Start: 02-21-2025 Anxiety Screening Anxiety Screening [facility] Start: 02-21-2025 Depression Screening Depression Screening [facility] Start: 01-11-2025 End: 01-11-2025 Nursing evaluation of patient and report 01/11/2025 9:00 AM EST Nurse Visit OB/Gynecology [address] [place] [address] Wstr, Nurse Anatomic Pathologist [facility] [address] [place] [address] hpv vaccine OB/Gynecology Comment on above: hpv vaccine Start: 01-08-2025 9vhpv vacc 2/3 dose sched im use HPV VACCINE, 9-VALENT (GARDASIL 9) Immunization/Injection Routine Need for prophylactic vaccination/inoculation against viral disease Expected: 01/08/2025 (Approximate) [facility] Comment on above: Expected: 01/08/2025 (Approximate) Start: 10-29-2024 Annual PCP Team Chronic Disease Visit Annual PCP Team Chronic Disease Visit [facility] Start: 10-29-2024 Anxiety Screening Anxiety Screening [facility] Comment on above: Postponed from 09/28/1997 (Declined at t his time) Start: 10-29-2024 Hepatitis B Vaccine (1 of 3 - 19+ 3-dose series) Hepatitis B Vaccine (1 of 3 - 19+ 3-dose series) [facility] Comment on above: Postponed from 09/28/1998 (Declined at t his time) Start: 10-29-2024 Urine microalbumin profile DTaP,Tdap,Td Vaccine (1 - Tdap) [facility] Comment on above: Postponed from 06/29/2013 (Declined at t his time) Start: 10-13-2024 End: 10-13-2024 Patient encounter procedure 10/13/2024 10:50 AM EDT Office Visit OB/Gynecology [address] [place], [place] [id number] Beulah Campa MD [address] [place], [place] [id number] POST OP OB/Gynecology Comment on above: POST OP Start: 10-10-2024 Influenza vaccination Influenza Vaccine (#1) [place] [facility] Start: 09-12-2024 End: 09-12-2024 Nursing evaluation of patient and report 09/12/2024 4:00 PM EDT Nurse Visit OB/Gynecology [address] [place], [place] [id number] Wstr, Nurse Anatomic Pathologist [facility] [address] [place], [place] [id number] HPV vaccine OB/Gynecology Comment on above: HPV vaccine Start: 09-11-2024 Subsequent hospital visit by physician 09/11/2024 Hospital Encounter [facility] [address] [id number] Jae Sterling MD [address] [place] [address] Excess skin [L98.7], Loose skin [L98.7] [facility] Center Comment on above: Excess skin [L98.7], Loose skin [L98.7] Start: 09-10-2024 9vhpv vacc 2/3 dose sched im use HPV VACCINE, 9-VALENT (GARDASIL 9) Immunization/Injection Routine Need for prophylactic vaccination/inoculation against viral disease Expected: 09/10/2024 (Approximate) [facility] Comment on above: Expected: 09/10/2024 (Approximate) Start: 09-09-2024 End: 09-09-2024 Patient encounter procedure 09/09/2024 10:10 AM EDT Office Visit OB/Gynecology [address] [place] [address] Beulah Campa MD [address] [place], [place] [id number] POST OP OB/Gynecology Comment on above: POST OP Start: 08-24-2024 Annual PCP Team Chronic Disease Visit Annual PCP Team Chronic Disease Visit [facility] Start: 08-21-2024 Subsequent hospital visit by physician 08/21/2024 Hospital Encounter [facility] [address] [place], [place] [phone] Jae Sterling MD [address] [place] [address] Excess skin [L98.7], Loose skin [L98.7] Surgery Center Comment on above: Excess skin [L98.7], Loose skin [L98.7] Start: 08-16-2024 [facility] Start: 08-07-2024 HPV TESTING HPV TESTING [facility] Start: 08-07-2024 PAP TESTING PAP TESTING [facility] Start: 08-07-2024 Screening for malignant neoplasm of cervix [facility] Start: 08-07-2024 Subsequent hospital visit by physician 08/07/2024 Hospital Encounter [facility] [address] [place] [address] Jae Sterling MD [address] [place] [address] Excess skin [L98.7], Loose skin [L98.7] Surgery Center Comment on above: Excess skin [L98.7], Loose skin [L98.7] Start: 08-04-2024 End: 08-04-2024 Patient encounter procedure 08/04/2024 9:30 AM EDT Office Visit OB/Gynecology [address] [place] [address] Makeda Smith APRN.SAUSAGE GRINDER [address] [facility] [place] [address] Menorrhagia with regular cycle [N92.0] OB/Gynecology Comment on above: Menorrhagia with regular cycle [N92.0] Start: 08-01-2024 End: 08-01-2024 Patient encounter procedure 08/01/2024 9:20 AM EDT Office Visit OB/Gynecology [address] [facility] [place] [address] Beulah Campa MD [address] [place] [address] Discuss Hysterectomy OB/Gynecology Comment on above: Discuss Hysterectomy Start: 07-22-2024 End: 07-22-2024 Patient encounter procedure 07/22/2024 10:15 AM EDT Office Visit OB/Gynecology [address] [place] [address] Makeda Smith, CARBON ACCOUNTANT.SAUSAGE GRINDER [address] [place] [address] redo pap-per TE OB/Gynecology Comment on above: redo pap-per TE Start: 07-21-2024 Annual PCP Team Chronic Disease Visit Annual PCP Team Chronic Disease Visit [facility] Start: 07-21-2024 End: 07-21-2024 Patient encounter procedure 07/21/2024 11:10 AM EDT Appointment Mammogram [address] [place] [address] Encounter for screening mammogram for breast cancer [Z12.31] Mammogram Comment on above: Encounter for screening mammogram for br east cancer [Z12.31] Start: 07-21-2024 End: 07-21-2024 ambulatory 07/21/2024 10:00 AM EDT Procedure OB/Gynecology [address] [facility] [place] [address] 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, 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[employer] [address] [place] [address] Menorrhagia with regular cycle [N92.0] OB/Gynecology Comment on above: Menorrhagia with regular cycle [N92.0] Start: 07-14-2024 End: 07-14-2024 Patient encounter procedure 07/14/2024 1:00 PM EDT Office Visit Plastic Surgery [address] [place] [address] Bonny Henry, CARBON ACCOUNTANT.SAUSAGE GRINDER [address] [place] [address] Surgery consult Plastic Surgery Comment on above: Surgery consult Start: 07-12-2024 End: 07-12-2025 US Pelvis PELVIC US [facility] Anc Imaging Routine Menorrhagia with regular cycle Expected: 07/12/2024, Expires: 07/12/2025 [facility] Comment on above: Expected: 07/12/2024, Expires: Start: 06-09-2024 End: 06-09-2024 Patient encounter procedure 06/09/2024 11:20 AM EDT Office Visit Plastic Surgery [address] [place] [address] Bonny Henry, CARBON ACCOUNTANT.SAUSAGE GRINDER [address] [place] [address] follow up in 1 month Plastic Surgery Comment on above: follow up in 1 month Start: 06-03-2024 End: 06-03-2024 Patient encounter procedure 06/03/2024 1:00 PM EDT Office [place] [address] [place] [address] Bonny Henry APRN.SAUSAGE GRINDER [address] [place] [address] possible infected spitting suture [facility] Comment on above: possible infected spitting suture Start: 06-02-2024 [facility] Start: 06-02-2024 [facility] Start: 06-02-2024 Bacteria identified in Blood by Culture Blood Culture [facility] Start: 05-27-2024 End: 08-26-2024 NICOTINE/COTININE NICOTINE/COTININE Lab Routine Pre-op evaluation Expected: 05/27/2024 (Approximate), Expires: 08/26/2024 [facility] Work Phone: Comment on above: Expected: 05/27/2024 (Approximate), Expi res: 08/26/2024 Start: 05-12-2024 End: 05-12-2024 Patient encounter procedure 05/12/2024 10:00 AM EDT Office Visit Plastic Surgery [id number] [place] [address] Bonny Henry, KYLE.SAUSAGE GRINDER [address] [place] [address] FOLLOW 2 WEEKS Plastic Surgery Comment on above: FOLLOW 2 WEEKS Start: 04-14-2024 End: 04-14-2024 Patient encounter procedure 04/14/2024 11:40 AM EST Office Visit Plastic Surgery [address] [place] [address] Bonny Henry, KYLE.SAUSAGE GRINDER [address] [place] [address] FOLLOW 2 WEEKS Plastic Surgery Comment on above: FOLLOW 2 WEEKS Start: 03-31-2024 End: 03-31-2024 Patient encounter procedure 03/31/2024 1:20 PM EST Office Visit Plastic Surgery [address] [place] [address] Bonny Henry, CARBON ACCOUNTANT.SAUSAGE GRINDER [address] [place] [address] 1 week Plastic Surgery Comment on above: 1 week Start: 03-24-2024 End: 03-24-2024 Patient encounter procedure 03/24/2024 11:00 AM EST Office Visit Plastic Surgery [address] [place] [address] Bonny Henry, CARBON ACCOUNTANT.SAUSAGE GRINDER [address] [place] [address] post op Plastic Surgery Comment on above: post op Start: 03-14-2024 End: 03-14-2024 Admission to same day surgery center 03/14/2024 7:30 AM EST - 03/14/2024 12:00 PM EST Surgery Ambulatory Surgery [address] [place] [address] Jae Sterling MD [address] [place] [address] PANNICULECTOMY Ambulatory Surgery Comment on above: PANNICULECTOMY Start: 03-14-2024 End: 03-14-2024 Excision skin abd infraumbilical panniculectomy PANNICULECTOMY Abdominal pannus Loose skin Rash Dermatitis Intertrigo 03/14/2024 7:30 AM EST [facility] Start: 03-14-2024 Subsequent hospital visit by physician 03/14/2024 7:30 AM EST Hospital Encounter Ambulatory Surgery [address] [place] [address] Jae Sterling MD [address] [place] [address] Abdominal pannus [E65], Loose skin [L98.7], Rash [R21], Dermatitis [L30.9], Intertrigo [L30.4] Ambulatory Surgery Comment on above: Abdominal pannus [E65], Loose skin [L98. 7], Rash [R21], Dermatitis [L30.9], Intertrigo [L30.4] Start: 03-11-2024 End: 03-11-2024 Patient encounter procedure 03/11/2024 10:00 AM EST Office Visit Family [facility] [address] [place] [address] Anna Nino APRN.SAUSAGE GRINDER [address] [place], [place] [address] 3 week depression follow up [facility] Comment on above: 3 week depression follow up Start: 03-10-2024 End: 03-10-2024 Patient encounter procedure 03/10/2024 11:30 AM EST Office Visit Plastic Surgery [address] [place] [address] Jae Sterling MD [address] [place] [address] pre op Plastic Surgery Comment on above: pre op Start: 03-08-2024 Patient referral [facility] Work Phone: Start: 02-03-2024 Subsequent hospital visit by physician 02/03/2024 Hospital Encounter Surgery Center [address] [place] [address] Jae Sterling MD [address] [place] [address] Abdominal pannus [E65] Surgery Center Comment on above: Abdominal pannus [E65] Start: 12-21-2023 End: 12-21-2023 Patient encounter procedure 12/21/2023 6:20 PM EST Office Visit [facility] [address] [place] [address] Maira Escamilla MD [address] [place], [place] [phone] 6 week follow up [facility] Comment on above: 6 week follow up Start: 12-15-2023 End: 12-15-2023 Patient encounter procedure Mammogram Comment on above: Breast pain [N64.4] Comp-Bilat Breast pa in Start: 12-13-2023 Subsequent hospital visit by physician 12/13/2023 Hospital Encounter [facility] [address] [address] Jae Sterling MD [address] [place], [place] [phone] Abdominal pannus [E65], Loose skin [L98.7], Rash [R21], Dermatitis [L30.9], Intertrigo [L30.4] Surgery Center Comment on above: Abdominal pannus [E65], Loose skin [L98. 7], Rash [R21], Dermatitis [L30.9], Intertrigo [L30.4] Start: 12-07-2023 End: 12-07-2023 Patient encounter procedure 12/07/2023 8:30 AM EDT Office Visit [facility] [address] [place] [address] Suleiman Panchal MD [address] [place] [address] Needs to established with [facility], seen by dr Sterling 11/27/23 [facility] TAMIKO ECKERT Comment on above: Needs to established with dashawn Panchal 11/27/23 Start: 10-30-2023 End: 10-30-2023 Patient encounter procedure 10/30/2023 4:40 PM EDT Office Visit [facility] [address] [place] [address] Maira Escamilla MD [address] [place], [place] [phone] Follow up SVT. Migraines and dizziness [facility] Comment on above: Follow up SVT. Migraines and dizziness Start: 10-30-2023 End: 01-29-2024 25-hydroxyvitamin D3 [Mass/volume] in Serum or Plasma VITAMIN D 25 HYDROXY Lab Routine History of gastric bypass Vitamin D deficiency Expected: 10/30/2023, Expires: 01/29/2024 [facility] Comment on above: Expected: 10/30/2023, Expires: Start: 10-30-2023 End: 01-29-2024 CBC W Auto Differential panel - Blood COMPLETE BLOOD COUNT AND DIFFERENTIAL Lab Routine History of gastric bypass Expected: 10/30/2023, Expires: 01/29/2024 [facility] Comment on above: Expected: 10/30/2023, Expires: Start: 10-30-2023 End: 01-29-2024 Cobalamin (Vitamin B12) [Mass/volume] in Serum or Plasma VITAMIN B12 Lab Routine History of gastric bypass Expected: 10/30/2023, Expires: 01/29/2024 [facility] Comment on above: Expected: 10/30/2023, Expires: Start: 10-30-2023 End: 01-29-2024 Comprehensive metabolic 2000 panel - Serum or Plasma COMPREHENSIVE METABOLIC PANEL Lab Routine History of gastric bypass Expected: 10/30/2023, Expires: 01/29/2024 [facility] Comment on above: Expected: 10/30/2023, Expires: Start: 10-30-2023 Depression Screening Depression Screening [facility] Comment on above: Postponed from 09/28/1997 (Declined at t his time) Start: 10-30-2023 End: 01-29-2024 Folate [Mass/volume] in Serum or Plasma FOLATE, SERUM Lab Routine History of gastric bypass Expected: 10/30/2023, Expires: 01/29/2024 [facility] Comment on above: Expected: 10/30/2023, Expires: Start: 10-30-2023 End: 01-29-2024 Iron and Iron binding capacity panel - Serum or Plasma IRON AND TIBC Lab Routine History of gastric bypass Expected: 10/30/2023, Expires: 01/29/2024 [facility] Comment on above: Expected: 10/30/2023, Expires: Start: 10-14-2023 End: 10-14-2023 Patient encounter procedure 10/14/2023 4:00 PM EDT Office Visit [facility] [address] [place] [address] Maira Escamilla MD [address] [place], [place] [phone] EEG follow up [facility] [place] Comment on above: EEG follow up Start: 10-11-2023 Covid-19 Vaccine () Covid-19 Vaccine () [facility] Start: 10-11-2023 Influenza vaccination [facility] Start: 10-08-2023 End: 10-08-2023 Patient encounter procedure 10/08/2023 10:00 AM EDT Office Visit Plastic Surgery [address] [place] [address] Bonny Henry APRN.SAUSAGE GRINDER [address] [place] [address] Abdominal pannus [E65] Plastic Surgery Comment on above: Abdominal pannus [E65] Start: 10-06-2023 End: 10-06-2023 Patient encounter procedure 10/06/2023 9:00 AM EDT Office Visit Neurology [address] [place] [address] Preethi Skinner PA-C [address] [place] [address] Headache, unspecified headache type [R51.9] Neurology Comment on above: Headache, unspecified headache type [R51 .9] Start: 09-28-2023 End: 09-28-2023 Patient encounter procedure 09/28/2023 2:45 PM EDT Office Visit General Surgery [address] [place] [address] Alison Jules, DO [address] [place], [place] [phone] 5 Month Follow Up General Surgery Comment on above: 5 Month Follow Up Start: 09-28-2023 End: 12-28-2023 25-hydroxyvitamin D3 [Mass/volume] in Serum or Plasma VITAMIN D 25 HYDROXY Lab Routine Vitamin D deficiency Expected: 09/28/2023, Expires: 12/28/2023 [facility] Work Phone: Comment on above: Expected: 09/28/2023, Expires: Start: 09-28-2023 End: 12-28-2023 Parathyrin.intact [Mass/volume] in Serum or Plasma PTH INTACT Lab Routine Vitamin D deficiency Expected: 09/28/2023, Expires: 12/28/2023 [facility] Comment on above: Expected: 09/28/2023, Expires: Start: 09-25-2023 End: 09-25-2023 Patient encounter procedure 09/25/2023 11:45 AM EDT Office Visit Neurology [address] [place] [address] Headache, unspecified headache type [R51.9] Neurology Comment on above: Headache, unspecified headache type [R51 .9] Start: 09-07-2023 End: 09-07-2023 Patient encounter procedure 09/07/2023 1:30 PM EDT Office Visit [facility] [address] [place] [address] Oneyda Ortiz, OD [address] [facility] [address] [place] [address] Vision loss [H54.7] [facility] Comment on above: Vision loss [H54.7] Start: 08-25-2023 End: 08-25-2023 Patient encounter procedure 08/25/2023 2:00 PM EDT Office Visit [facility] [address] [place] [address] Maira Escamilla MD [address] [place] [address] Hospital follow up Family [facility] Comment on above: Hospital follow up Start: 08-24-2023 End: 08-24-2023 Patient encounter procedure Family [facility] Comment on above: Annual [facility] follow up. Admit scottie 08/20/23. Start: 08-03-2023 End: 08-03-2023 Patient encounter procedure 08/03/2023 3:20 PM EDT Office Visit [facility] [address] [place] [address] Viviana Marie APRN.SAUSAGE GRINDER [address] [place] [address] Annual [facility] Comment on above: Annual Start: 07-22-2023 End: 10-21-2023 25-hydroxyvitamin D3 [Mass/volume] in Serum or Plasma VITAMIN D 25 HYDROXY Lab Routine Gastric bypass status for obesity Expected: 07/22/2023, Expires: 10/21/2023 [facility] Comment on above: Expected: 07/22/2023, Expires: 4 Start: 07-22-2023 End: 10-21-2023 CBC W Auto Differential panel - Blood COMPLETE BLOOD COUNT AND DIFFERENTIAL Lab Routine Cold intolerance Expected: 07/22/2023, Expires: 10/21/2023 [facility] Work Phone: Comment on above: Expected: 07/22/2023, Expires: 4 Start: 07-22-2023 End: 10-21-2023 Cobalamin (Vitamin B12) [Mass/volume] in Serum or Plasma VITAMIN B12 Lab Routine Gastric bypass status for obesity Expected: 07/22/2023, Expires: 10/21/2023 [facility] Comment on above: Expected: 07/22/2023, Expires: 4 Start: 07-22-2023 End: 10-21-2023 Comprehensive metabolic 2000 panel - Serum or Plasma COMPREHENSIVE METABOLIC PANEL Lab Routine Hyperglycemia Expected: 07/22/2023, Expires: 10/21/2023 [facility] Comment on above: Expected: 07/22/2023, Expires: 4 Start: 07-22-2023 End: 10-21-2023 Ferritin [Mass/volume] in Serum or Plasma FERRITIN Lab Routine Gastric bypass status for obesity Expected: 07/22/2023, Expires: 10/21/2023 [facility] Comment on above: Expected: 07/22/2023, Expires: Start: 07-22-2023 End: 10-21-2023 Folate [Mass/volume] in Serum or Plasma FOLATE, SERUM Lab Routine Gastric bypass status for obesity Expected: 07/22/2023, Expires: 10/21/2023 [facility] Comment on above: Expected: 07/22/2023, Expires: Start: 07-22-2023 End: 10-21-2023 Iron and Iron binding capacity panel - Serum or Plasma IRON AND TIBC Lab Routine Gastric bypass status for obesity Expected: 07/22/2023, Expires: 10/21/2023 [facility] Comment on above: Expected: 07/22/2023, Expires: Start: 07-22-2023 End: 10-21-2023 LIPID PANEL, NONFASTING LIPID PANEL, NONFASTING Lab Routine Screening for hyperlipidemia Expected: 07/22/2023, Expires: 10/21/2023 [facility] Comment on above: Expected: 07/22/2023, Expires: Start: 07-22-2023 End: 10-21-2023 Thyrotropin [Units/volume] in Serum or Plasma THYROID STIMULATING HORMONE Lab Routine Cold intolerance Expected: 07/22/2023, Expires: 10/21/2023 [facility] Comment on above: Expected: 07/22/2023, Expires: Start: 07-22-2023 End: 10-21-2023 Thyroxine (T4) free [Mass/volume] in Serum or Plasma T4 FREE/FREE THYROXINE Lab Routine Cold intolerance Expected: 07/22/2023, Expires: 10/21/2023 [facility] Comment on above: Expected: 07/22/2023, Expires: Start: 07-22-2023 End: 10-21-2023 VITAMIN B1 (THIAMINE), WHOLE BLOOD VITAMIN B1 (THIAMINE), WHOLE BLOOD Lab Routine Gastric bypass status for obesity Expected: 07/22/2023, Expires: 10/21/2023 [facility] Comment on above: Expected: 07/22/2023, Expires: Start: 07-17-2023 End: 07-17-2023 Patient encounter procedure 07/17/2023 2:20 PM EDT Office Visit [facility] [place] [address] [place] [address] Anna Nino APRN.NEWSPAPER DELIVERY DRIVER [address] [place] [address] physical [facility] [place] Comment on above: physical Start: 06-28-2023 ANNUAL PCP TEAM CHRONIC DISEASE VISIT ANNUAL PCP TEAM CHRONIC DISEASE VISIT [facility] Start: 06-12-2023 ANNUAL PCP TEAM CHRONIC DISEASE VISIT ANNUAL PCP TEAM CHRONIC DISEASE VISIT [facility] Start: 06-06-2023 ANNUAL PCP TEAM CHRONIC DISEASE VISIT ANNUAL PCP TEAM CHRONIC DISEASE VISIT [facility] Start: 05-23-2023 ANNUAL PCP TEAM CHRONIC DISEASE VISIT ANNUAL PCP TEAM CHRONIC DISEASE VISIT [facility] Start: 03-07-2023 Mammography [facility] Start: 03-07-2023 Screening for malignant neoplasm of breast Mammogram Screening [facility] Start: 03-05-2023 [facility] Start: 02-13-2023 [facility] Start: 02-09-2023 Behavioral Health Screening Behavioral Health Screening [facility] Start: 02-09-2023 Depression Assessment Depression Assessment [facility] Start: 01-18-2023 ANNUAL PCP TEAM CHRONIC DISEASE VISIT ANNUAL PCP TEAM CHRONIC DISEASE VISIT [facility] Start: 12-10-2022 ANNUAL PCP TEAM CHRONIC DISEASE VISIT ANNUAL PCP TEAM CHRONIC DISEASE VISIT [facility] Start: 10-10-2022 Covid-19 Vaccine ( season) Covid-19 Vaccine () [facility] Start: 10-10-2022 Influenza vaccination [facility] Start: 08-06-2022 ANNUAL PCP TEAM CHRONIC DISEASE VISIT ANNUAL PCP TEAM CHRONIC DISEASE VISIT [facility] Start: 07-15-2022 ANNUAL PCP TEAM CHRONIC DISEASE VISIT ANNUAL PCP TEAM CHRONIC DISEASE VISIT [facility] Start: 06-16-2022 End: 08-16-2022 Hemoglobin A1c in Blood HGB A1C Lab Routine Hyperglycemia Expected: 06/16/2022, Expires: 08/16/2022 [facility] Work Phone: Comment on above: Expected: 06/16/2022, Expires: Start: 06-11-2022 End: 08-11-2022 25-hydroxyvitamin D3 [Mass/volume] in Serum or Plasma VITAMIN D 25 HYDROXY Lab Routine Gastric bypass status for obesity Expected: 06/11/2022, Expires: 08/11/2022 [facility] Work Phone: Comment on above: Expected: 06/11/2022, Expires: Start: 06-11-2022 End: 08-11-2022 CBC W Auto Differential panel - Blood CBC + DIFF Lab Routine Gastric bypass status for obesity Expected: 06/11/2022, Expires: 08/11/2022 [facility] Work Phone: Comment on above: Expected: 06/11/2022, Expires: Start: 06-11-2022 End: 08-11-2022 Cobalamin (Vitamin B12) [Mass/volume] in Serum or Plasma VITAMIN B12 BLOOD Lab Routine Gastric bypass status for obesity Expected: 06/11/2022, Expires: 08/11/2022 [facility] Work Phone: Comment on above: Expected: 06/11/2022, Expires: Start: 06-11-2022 End: 08-11-2022 Comprehensive metabolic 2000 panel - Serum or Plasma COMP METABOLIC PANEL Lab Routine Gastric bypass status for obesity Expected: 06/11/2022, Expires: 08/11/2022 [facility] Work Phone: Comment on above: Expected: 06/11/2022, Expires: Start: 06-11-2022 End: 08-11-2022 Folate [Mass/volume] in Serum or Plasma FOLATE SERUM Lab Routine Gastric bypass status for obesity Expected: 06/11/2022, Expires: 08/11/2022 [facility] Work Phone: Comment on above: Expected: 06/11/2022, Expires: Start: 06-11-2022 End: 08-11-2022 Iron and Iron binding capacity panel - Serum or Plasma IRON + TIBC Lab Routine Gastric bypass status for obesity Expected: 06/11/2022, Expires: 08/11/2022 [facility] Work Phone: Comment on above: Expected: 06/11/2022, Expires: Start: 06-11-2022 End: 08-11-2022 Thyrotropin [Units/volume] in Serum or Plasma TSH BLD Lab Routine Lightheaded Expected: 06/11/2022, Expires: 08/11/2022 [facility] Work Phone: Comment on above: Expected: 06/11/2022, Expires: Start: 06-11-2022 End: 08-11-2022 VITAMIN B1 (THIAMINE), WHOLE BLOOD VITAMIN B1 (THIAMINE), WHOLE BLOOD Lab Routine Gastric bypass status for obesity Expected: 06/11/2022, Expires: 08/11/2022 [facility] Work Phone: Comment on above: Expected: 06/11/2022, Expires: Start: 05-01-2022 Adult depression screening assessment DEPRESSION SCREENING [facility] Start: 04-25-2022 ANNUAL PCP TEAM CHRONIC DISEASE VISIT ANNUAL PCP TEAM CHRONIC DISEASE VISIT [facility] Start: 04-11-2022 End: 06-11-2022 25-hydroxyvitamin D3 [Mass/volume] in Serum or Plasma VITAMIN D 25 HYDROXY Lab Routine Encounter for surgical aftercare following surgery of digestive system Expected: 04/11/2022, Expires: 06/11/2022 [facility] Work Phone: Comment on above: Expected: 04/11/2022, Expires: 3 Start: 04-11-2022 End: 06-11-2022 CBC W Auto Differential panel - Blood CBC + DIFF Lab Routine Encounter for surgical aftercare following surgery of digestive system Expected: 04/11/2022, Expires: 06/11/2022 [facility] Work Phone: Comment on above: Expected: 04/11/2022, Expires: 3 Start: 04-11-2022 End: 06-11-2022 Cobalamin (Vitamin B12) [Mass/volume] in Serum or Plasma VITAMIN B12 BLOOD Lab Routine Encounter for surgical aftercare following surgery of digestive system Expected: 04/11/2022, Expires: 06/11/2022 [facility] Work Phone: Comment on above: Expected: 04/11/2022, Expires: Start: 04-11-2022 End: 06-11-2022 Comprehensive metabolic 2000 panel - Serum or Plasma COMP METABOLIC PANEL Lab Routine Encounter for surgical aftercare following surgery of digestive system Expected: 04/11/2022, Expires: 06/11/2022 [facility] Work Phone: Comment on above: Expected: 04/11/2022, Expires: Start: 04-11-2022 End: 06-11-2022 Ferritin [Mass/volume] in Serum or Plasma FERRITIN BLD Lab Routine Encounter for surgical aftercare following surgery of digestive system Expected: 04/11/2022, Expires: 06/11/2022 [facility] Work Phone: Comment on above: Expected: 04/11/2022, Expires: Start: 04-11-2022 End: 06-11-2022 Folate [Mass/volume] in Serum or Plasma FOLATE SERUM Lab Routine Encounter for surgical aftercare following surgery of digestive system Expected: 04/11/2022, Expires: 06/11/2022 [facility] Work Phone: Comment on above: Expected: 04/11/2022, Expires: Start: 04-11-2022 End: 06-11-2022 Iron and Iron binding capacity panel - Serum or Plasma IRON + TIBC Lab Routine Encounter for surgical aftercare following surgery of digestive system Expected: 04/11/2022, Expires: 06/11/2022 [facility] Work Phone: Comment on above: Expected: 04/11/2022, Expires: Start: 04-11-2022 End: 06-11-2022 Parathyrin.intact [Mass/volume] in Serum or Plasma PTH INTACT BLD Lab Routine Encounter for surgical aftercare following surgery of digestive system Expected: 04/11/2022, Expires: 06/11/2022 [facility] Work Phone: Comment on above: Expected: 04/11/2022, Expires: 3 Start: 04-11-2022 End: 06-11-2022 VITAMIN B1 (THIAMINE), WHOLE BLOOD VITAMIN B1 (THIAMINE), WHOLE BLOOD Lab Routine Encounter for surgical aftercare following surgery of digestive system Expected: 04/11/2022, Expires: 06/11/2022 [facility] Work Phone: Comment on above: Expected: 04/11/2022, Expires: 3 Start: 02-09-2022 DEPRESSION ASSESSMENT DEPRESSION ASSESSMENT [facility] Start: 10-10-2021 Influenza vaccination INFLUENZA (#1) [facility] Start: 09-03-2021 End: 09-03-2022 CBC W Auto Differential panel - Blood CBC + DIFF Lab Routine Morbid obesity (HCC) Chronic GERD Gastroesophageal reflux disease, unspecified whether esophagitis present Preoperative examination Expected: 09/03/2021, Expires: 09/03/2022 [facility] Work Phone: Comment on above: Expected: 09/03/2021, Expires: 3 Start: 09-03-2021 End: 11-03-2021 Coagulation factor VIII activity actual/normal in Platelet poor plasma by Coagulation assay FACTOR VIII:C ASSAY Lab Routine Morbid obesity (HCC) Chronic GERD Gastroesophageal reflux disease, unspecified whether esophagitis present Preoperative examination Expected: 09/03/2021, Expires: 11/03/2021 [facility] Work Phone: Comment on above: Expected: 09/03/2021, Expires: 2 Start: 09-03-2021 End: 09-03-2022 Comprehensive metabolic 2000 panel - Serum or Plasma COMP METABOLIC PANEL Lab Routine Morbid obesity (HCC) Chronic GERD Gastroesophageal reflux disease, unspecified whether esophagitis present Preoperative examination Expected: 09/03/2021, Expires: 09/03/2022 [facility] Work Phone: Comment on above: Expected: 09/03/2021, Expires: 3 Start: 09-03-2021 End: 09-03-2022 CONFIRM BLOOD TYPE CONFIRM BLOOD TYPE Blood Bank Routine Morbid obesity (HCC) Chronic GERD Gastroesophageal reflux disease, unspecified whether esophagitis present Preoperative examination Expected: 09/03/2021, Expires: 09/03/2022 [facility] Work Phone: Comment on above: Expected: 09/03/2021, Expires: 3 Start: 09-03-2021 End: 09-03-2022 SARS-CoV-2 (COVID-19) RNA [Presence] in Respiratory specimen by KRISTINA with probe detection PRE-PROCEDURE & PRE-OPERATIVE COVID Microbiology Routine Morbid obesity (HCC) Chronic GERD Gastroesophageal reflux disease, unspecified whether esophagitis present Preoperative examination Expected: 09/03/2021, Expires: 09/03/2022 [facility] Work Phone: Comment on above: Expected: 09/03/2021, Expires: 3 Start: 09-03-2021 End: 09-03-2022 TYPE AND SCREEN,30 DAY TYPE AND SCREEN,30 DAY Blood Bank Routine Morbid obesity (HCC) Chronic GERD Gastroesophageal reflux disease, unspecified whether esophagitis present Preoperative examination Expected: 09/03/2021, Expires: 09/03/2022 [facility] Work Phone: Comment on above: Expected: 09/03/2021, Expires: 3 Start: 02-09-2021 DEPRESSION ASSESSMENT DEPRESSION ASSESSMENT [facility] Start: 09-26-2020 COVID-19 VACCINE (3 - Booster for Pfizer series) COVID-19 VACCINE (3 - Booster for Pfizer series) [facility] Start: 06-21-2020 COVID-19 VACCINE (3 - Booster for Pfizer series) COVID-19 VACCINE (3 - Booster for Pfizer series) [facility] Start: 06-21-2020 COVID-19 VACCINE (3 - Pfizer series) COVID-19 VACCINE (3 - Pfizer series) [facility] Start: 2019 Mammography MAMMOGRAM [facility] Start: 09-27-2019 End: 09-27-2019 Appointment Appointment [facility] Work Phone: Start: 09-27-2019 End: 09-27-2019 Radex spine cervical 4 or 5 views XR CERVICAL 4VWS FLEX/EXT [facility] Work Phone: Start: 06-29-2013 Urine microalbumin profile [facility] Start: 09-28-1998 Hepatitis B Vaccine (1 of 3 - 19+ 3-dose series) Hepatitis B Vaccine (1 of 3 - 19+ 3-dose series) [facility] Start: 09-28-1997 Anxiety Screening Anxiety Screening [facility] Start: 09-28-1997 Depression Screening Depression Screening [facility] Start: 09-28-1997 HIV SCREENING HIV SCREENING [facility] Start: 09-28-1997 HIV screening HIV Screening [facility] Start: 09-28-1985 PNEUMOCOCCAL (1 - PCV) PNEUMOCOCCAL (1 - PCV) [facility] Start: 09-28-1985 Pneumococcal vaccination Pneumococcal Vaccine (1 - PCV) [facility] Start: 1979 HEPATITIS B (1 of 3 - 3-dose series) HEPATITIS B (1 of 3 - 3-dose series) [facility] Start: 1979 Hepatitis B Vaccine (1 of 3 - 3-dose series) Hepatitis B Vaccine (1 of 3 - 3-dose series) [facility] COVID & INFLUENZA A/ B & RSV NAAT, ROUTINE COVID & INFLUENZA A/B & RSV NAAT, ROUTINE Microbiology Routine URI, acute 08/25/2023 2:36 PM EDT [facility] Breast - bilater al screening ARUN SCREENING W TONIO Radiology Routine Encounter for gynecological examination (general) (routine) without abnormal findings Encounter for screening mammogram for breast cancer 07/21/2024 10:48 AM EDT [facility] Work Phone: End: 08-11-2025 DBT Breast - bilateral screening ARUN SCREENING W TONIO Radiology Routine Encounter for gynecological examination (general) (routine) without abnormal findings Encounter for screening mammogram for breast cancer 1 Occurrences starting 07/12/2024 until 08/11/2025 [facility] Work Phone: Comment on above: 1 Occurrences starting 07/12/2024 until 08/11/2025 End: 06-12-2023 ECG COMPLETE ECG COMPLETE ECG Routine Lightheaded 1 Occurrences starting 06/11/2022 until 06/12/2023 [facility] Work Phone: Comment on above: 1 Occurrences starting 06/11/2022 until 06/12/2023 Endometrial bx w/wo endocervix bx w/o dilat spx ENDOMETRIAL BIOPSY Procedures Routine Menorrhagia with regular cycle Ordered: 08/01/2024 [facility] Work Phone: Comment on above: Ordered: 08/01/2024 Endometrial bx w/wo endocervix bx w/o dilat spx ENDOMETRIAL BIOPSY Procedures Routine Abnormal uterine bleeding (AUB) Adenomyosis of uterus Ordered: 08/04/2024 [facility] Work Phone: Comment on above: Ordered: 08/04/2024 End: 08-24-2024 EPIL EEG ROUTINE EPIL EEG ROUTINE NEUROLOGY Routine Headache, unspecified headache type Vision loss Near syncope Confusion 1 Occurrences starting 08/25/2023 until 08/24/2024 [facility] Work Phone: Comment on above: 1 Occurrences starting 08/25/2023 until 08/24/2024 Excision excessive s kin & subq tissue thigh THIGHPLASTY Excess skin Loose skin PLASTICS A60 Excision excessive s kin & subq tissue thigh THIGHPLASTY Excess skin Loose skin [facility] Excision skin abd infraumbilical panniculectomy PANNICULECTOMY Abdominal pannus Loose skin Rash Dermatitis Intertrigo PLASTICS A60 Laps gstr rstcv px w/byp jacob-en-y limb <150 cm LAP GASTRIC BYPASS/JACOB-EN-Y Procedures Routine Morbid obesity (HCC) Chronic GERD Gastroesophageal reflux disease, unspecified whether esophagitis present Preoperative examination Ordered: 09/03/2021 [facility] Work Phone: Comment on above: Ordered: 09/03/2021 End: 11-28-2024 MG Breast - bilateral Diagnostic ARUN DIAGNOSTIC BILATERAL Radiology Routine Breast pain 1 Occurrences starting 10/30/2023 until 11/28/2024 [facility] Work Phone: Comment on above: 1 Occurrences starting 10/30/2023 until 11/28/2024 End: 05-14-2024 MG Breast Screening ARUN SCREENING Radiology Routine Encounter for screening mammogram for breast cancer 1 Occurrences starting 04/15/2023 until 05/14/2024 [facility] Work Phone: Comment on above: 1 Occurrences starting 04/15/2023 until 05/14/2024 OUTSIDE VENDOR CARDI AC OUTPATIENT EXTENDED RHYTHM RECORDING (WITHOUT TELEMETRY) OUTSIDE VENDOR CARDIAC OUTPATIENT EXTENDED RHYTHM RECORDING (WITHOUT TELEMETRY) Holter Routine Near syncope Ordered: 08/25/2023 [facility] Comment on above: Ordered: 08/25/2023 OUTSIDE VENDOR CARDI AC OUTPATIENT EXTENDED RHYTHM RECORDING (WITHOUT TELEMETRY) OUTSIDE VENDOR CARDIAC OUTPATIENT EXTENDED RHYTHM RECORDING (WITHOUT TELEMETRY) Holter Routine Palpitations Ordered: 10/05/2023 [facility] Work Phone: Comment on above: Ordered: 10/05/2023 PAP TEST PAP TEST Lab Rou js Screening for cervical cancer 07/22/2024 10:34 AM EDT [facility] Work Phone: PAP TEST PAP TEST Lab Rou js Encounter for gynecological examination (general) (routine) without abnormal findings Screening for cervical cancer Encounter for screening for human papillomavirus (HPV) 07/12/2024 10:05 AM EDT [facility] Patient Education [facility] Work Phone: Patient referral [facility] Work Phone: REFER FOR ADMIT INTERVIEW REFER FOR ADMIT INTERVIEW Procedures Routine Morbid obesity (HCC) Chronic GERD Gastroesophageal reflux disease, unspecified whether esophagitis present Preoperative examination Ordered: 09/03/2021 [facility] Work Phone: Comment on above: Ordered: 09/03/2021 End: 11-08-2022 Screening mammography bi 2-view breast inc cad ARUN SCREENING Radiology Routine Encounter for screening mammogram for breast cancer 1 Occurrences starting 10/09/2021 until 11/08/2022 [facility] Work Phone: Comment on above: 1 Occurrences starting 10/09/2021 until 11/08/2022 Therapeutic prophylactic/dx injection subq/im THER/PROPH/DIAG INJ, SC/IM Procedures Routine Need for prophylactic vaccination/inoculation against viral disease Ordered: 07/12/2024 [facility] Comment on above: Ordered: 07/12/2024 Tissue Pathology bio psy report SURGICAL PATHOLOGY Lab Routine Abnormal uterine bleeding (AUB) Adenomyosis of uterus 08/04/2024 10:11 AM EDT [facility] End: 11-28-2024 US Breast - left limited US BREAST LTD LEFT Radiology Routine Breast pain 1 Occurrences starting 10/30/2023 until 11/28/2024 [facility] Comment on above: 1 Occurrences starting 10/30/2023 until 11/28/2024 End: 11-28-2024 US Breast - right limited US BREAST LTD RIGHT Radiology Routine Breast pain 1 Occurrences starting 10/30/2023 until 11/28/2024 [facility] Comment on above: 1 Occurrences starting 10/30/2023 until 11/28/2024 [facility] Immunizations Immunization Date Immunization Notes Care Provider Fa [facility] 07-12-2024 Human Papillomavirus 9-valent vaccine Makeda Smith APRN.CNP Work Phone: [facility] 10-30-2023 COVID-19 vaccine, ag e 12+ yr ([employer]) Maira Escamilla MD Work Phone: [facility] 10-30-2023 influenza, seasonal, injectable Maira Escamilla MD Work Phone: [facility] 10-30-2023 influenza virus vacc ine, unspecified formulation Beulah Campa MD Work Phone: [facility] 11-07-2020 influenza, injectabl e, quadrivalent, contains preservative Alison Jules DO Work Phone: [facility] 11-07-2020 influenza virus vacc ine, unspecified formulation Screen Wstr [facility] 04-26-2020 COVID-19 vaccine, ag e 12+ yr ([employer] - PURPLE TOP) Alison Jules DO Work Phone: [facility] 04-05-2020 COVID-19 vaccine, ag e 12+ yr (PFIZER-[employer] - PURPLE TOP) Alison Magdy DO Work Phone: [facility] 11-03-2019 influenza, injectabl e, quadrivalent, contains preservative Alison Bairdkathia DO Work Phone: [facility] 06-28-2013 TD(adult) unspecifie d formulation Maira Escamilla MD Work Phone: [facility] 06-28-2013 tetanus and diphther ia toxoids, adsorbed, preservative free, for adult use (2 Lf of tetanus toxoid and 2 Lf of diphtheria toxoid) Alison Jules DO Work Phone: [facility] Payers Date Payer Category Payer Self-pay [id number] 2023 Unknown [id number] 2020 Medicaid [employer] [employer] [place] [employer] [id number] 2020-Present [phone] [address] [place] [address] Medicaid [id number] 2020 Medicaid [id number] 1979 Unknown [id number] Unknown [id number] Unknown [id number] Unknown [id number] Unknown [id number] Unknown [id number] Unknown [id number] Unknown [id number] Unknown [id number] Social History Date Type Detail Facility Start: 06-24-2021 End: 03-05-2023 Assertion Unknown if ever smoked [facility] Work Phone: Start: 07-19-2015 End: 11-27-2023 Tobacco smoking status NHIS Ex-smoker [facility] Start: 03-19-1990 End: 02-09-2014 History of tobacco use Current smoker [facility] Start: 03-19-1990 End: 02-09-2014 History of tobacco use Cigarette Smoker [facility] Start: 07-19-2015 End: 05-04-2023 Cigarettes smoked current (pack per day) - Reported 0.25 [facility] Start: 07-19-2015 End: 11-27-2023 Tobacco use and exposure Smokeless tobacco non-user [facility] Start: 05-21-2021 End: 10-30-2023 Alcohol intake Current drinker of alcohol (finding) [facility] Start: 04-23-2021 End: 01-17-2022 History SDOH Alcohol Frequency 2 [facility] Start: 04-23-2021 End: 01-17-2022 History SDOH Alcohol Std Drinks 1 [facility] Start: 03-19-2018 History SDOH Alcohol Comment rarely [facility] Start: 04-23-2021 End: 01-17-2022 History SDOH Social Connections Phone 5 [facility] Start: 04-23-2021 End: 01-17-2022 History SDOH Social Connections Meetings 3 [facility] Start: 04-23-2021 End: 01-17-2022 History SDOH Social Connections Living 8 [facility] Start: 04-23-2021 History SDOH Financial 4 [facility] Start: 06-24-2019 Education 21 [facility] Start: 1980 Sex Assigned At Female [facility] Start: 04-08-2021 End: 12-10-2021 Exposure to SARS-CoV-2 (event) Not sure [facility] Start: 12-11-2018 With Family Michael Knowles [facility] Start: 06-14-2021 End: 06-24-2021 Exposure to SARS-CoV-2 (event) Yes [facility] Start: 09-18-2021 Tobacco Comment quit in 05/15 [facility] Start: 01-17-2022 History SDOH Alcohol Std Drinks 0 [facility] Start: 01-17-2022 End: 05-04-2023 Social connection and isolation panel [facility] Are you now , , , , never or living with a partner? Living with partner [facility] How often to you hav e a drink containing alcohol? Never [facility] How many standard drinks containing alcohol do you have on a typical day? Patient does not drink [facility] How hard is it for you to pay for the very basics like food, housing, medical care, and heating Somewhat hard [facility] Do you feel stress - tense, restless, nervous, or anxious, or unable to sleep at night because your mind is troubled all the time - these days [OSQ] Not at all [facility] (I/We) worried whether (my/our) food would run out before (I/we) got money to buy more. Never true [facility] At any time in the past 12 months, were you homeless or living in jail [including now]? No [facility] Start: 09-20-2019 Gender identity Identifies as female gender (finding) [facility] Start: 09-20-2019 Sexual orientation Heterosexual (fin tj) [facility] Are you now , , , , never or living with a partner? [facility] How often to you hav e a drink containing alcohol? Monthly or less [facility] How many standard drinks containing alcohol do you have on a typical day? 1 or 2 [facility] Do you feel stress - tense, restless, nervous, or anxious, or unable to sleep at night because your mind is troubled all the time - these days [OSQ] Only a little [facility] Tobacco smoking status No Smoking Status Entered [facility] How hard is it for you to pay for the very basics like food, housing, medical care, and heating Not very hard [facility] Do you feel stress - tense, restless, nervous, or anxious, or unable to sleep at night because your mind is troubled all the time - these days [OSQ] To some extent [facility] How often do you hav e 6 or more drinks on 1 occasion? Less than monthly [facility] Start: 11-27-2023 End: 08-30-2024 Alcoholic beverage intake Ex-drinker (finding) [facility] Start: 11-27-2023 Tobacco Comment Quit in 2014, does vape daily [facility] Start: 06-02-2024 End: 08-16-2024 Tobacco smoking status NHIS Smokes tobacco daily (finding) [facility] Start: 06-02-2024 Sex Female (finding) [facility] NEGATED: Highlighted row [facility] Functional Status Date Assessment Result Facility 08-31-2023 Functional Status Standard Safet y ID band on, Call device within reach, Bed in low position, Wheels locked, Upper/Half-Length side-rails up, Bedside Cart Locked, Safety level maintained [facility] 04-13-2014 Are you deaf, or do you have serious difficulty hearing No 04/13/2014 1:58 PM Sri Stephenson LPN No [facility] 04-13-2014 Are you blind, or do you have serious difficulty seeing, even when wearing glasses No 04/13/2014 1:58 PM Sri Stephenson LPN No [facility] 04-13-2014 Do you have serious difficulty walking or climbing stairs No 04/13/2014 1:58 PM Sri Stephenson LPN No [facility] 04-13-2014 Do you have difficul ty dressing or bathing No 04/13/2014 1:58 PM Sri Stephenson LPN No [facility] 04-13-2014 Because of a physica l, mental, or emotional condition, do you have difficulty doing errands alone such as visiting a physician's office or shopping No 04/13/2014 1:58 PM Sri Stephenson LPN No [facility] Mental Status Date Assessment Result Facility 08-16-2024 Cognitive function Level Of Cons ciousness Awake;Alert;Appropriate;Fol lows [facility] Work Phone: 08-31-2023 Mental Status Orientation Oriented x 4 [facility] 02-13-2023 Cognitive function Level Of Cons ciousness Awake;Alert;Appropriate;Fol lows [facility] Work Phone: 04-13-2014 Because of a physica l, mental, or emotional condition, do you have serious difficulty concentrating, remembering, or making decisions No 04/13/2014 1:58 PM Sri Stephenson LPN No [facility] Clinical Notes 12-07-2017 to 08-31-2024 Enrique Barba MD - 08/31/2024 9:18 AM Beulah Palacios MD - 08/24/2024 12:32 PM Beulah Palacios MD - 08/24/2024 10:32 AM Beulah Palacios MD - 08/24/2024 10:32 AM EDT Note Date & Type Note Facility 08-31-2024 History of Present illness Narrative [facility] Raul Chong is a 43 year old female. Patient presents with: Ear Problem: ? insect bite on left ear, pain and swelling x 2 days Patient presents with concern for a bump in her left ear. She noticed it the last 2 days. She initially thought it was a pimple. She has since had increased additional symptoms such as nasal congestion and tender lymph node on the left. She has slight sore throat only when she wakes up in the morning. Denies any fever or chills. She does have seasonal allergies and took some Benadryl. Underlying concern is that a spider bit her in the ear; she is also getting rid of fleas in the home. She is scheduled for hysterectomy tomorrow. Ear Problem Review of Systems HENT: Positive for ear pain. Objective BP 108/62 Pulse 70 Temp 36.4 C (97.5 F) Resp 16 Wt 85.4 kg (188 lb 4.4 oz) LMP 08/06/2024 (Approximate) SpO2 98% BMI 28.63 kg/m Physical Exam Constitutional: General: She is not in acute distress. HENT: Right Ear: Tympanic membrane and ear canal normal. Left Ear: Tympanic membrane normal. Tenderness (Tender distal upper canal with just inside the meatus without visible papule, pustule, or ulceration) present. No drainage or swelling. No middle ear effusion. There is no impacted cerumen. No foreign body. Tympanic membrane is not injected, perforated, erythematous or bulging. Nose: No congestion. Right Sinus: No maxillary sinus tenderness or frontal sinus tenderness. Left Sinus: No maxillary sinus tenderness or frontal sinus tenderness. Mouth/Throat: Mouth: Mucous membranes are moist. Pharynx: No oropharyngeal exudate or posterior oropharyngeal erythema. Eyes: Extraocular Movements: Extraocular movements intact. Conjunctiva/sclera: Conjunctivae normal. Pupils: Pupils are equal, round, and reactive to light. Cardiovascular: Rate and Rhythm: Normal rate and regular rhythm. Heart sounds: No murmur heard. Pulmonary: Effort: No respiratory distress. Breath sounds: No wheezing, rhonchi or rales. Musculoskeletal: Cervical back: Neck supple. Lymphadenopathy: Cervical: No cervical adenopathy (Borderline left upper anterior cervical adenopathy). Neurological: Mental Status: She is alert. {ASSESSMENT/PLAN: 1. Otalgia, left - ICD9: 388.70, ICD10: H92.02 Tender left distal auditory canal; site is not easily visualized but she may have a pustule. Treat with topical mupirocin. She has this at home and declines prescription. Follow-up with worsening symptoms at which time oral antibiotic may be indicated. Enrique Barba MD Differential Diagnoses - Auditory canal sore is more likely for the following reason(s): suggested by H&P Procedures documented in this encounter [facility] 08-24-2024 Note [facility] Medical Records Department [address] [place] [address] History Physical Exam 08/24/24 1238 MR#: [id number] Acct: [id number] Name: RAUL CHONG DIANNA Rep #: [id number] : 1980 43 From: Beulah Campa MD PCP: Dr. Maira Escamilla MD Status:PRE [facility] Location: [facility] History and Physical Date of Admission: 09/01/24 HPI: The patient is a 43 year old female presenting for pre-operative visit. She is scheduled for TLH, bilateral salpingectomy and cystoscopy, for adenomyosis, AUB, dysmenorrhea, intramural uterine fibroid and arcuate uterus on 09/01/24. Procedure discussed along with risks, benefits and complications. Other alternatives discussed for management. Consent form signed? Yes. ? PAST MEDICAL HISTORY PAST MEDICAL HISTORYDiagnosisDate???Autoimmune disease (HCC)?Degeneration of intervertebral disc, site unspecified?Depression?M igraines?Mild intermittent asthma (HCC)?Obesity?Osteoarthr itis of both knees?Plantar fasciitis?Psoriasis? PAST SURGICAL HISTORY PAST SURGICAL HISTORYProcedureLateralityDate???A DENOIDECTOMY PRIMARY DELIVERY ONLY?, low cervical???GASTRIC BYPASS HX?Pt reported 2021???LAPAROSCOPY SURG CHOLECYSTECTOMY???2013???PAST SURGICAL HISTORY OF?Bilateral arthoscopy to ankles, scar tissue removal and tendon lengthening???REMOVAL OF EXCESSIVE SKIN?Stomach???TONSILLECTO MY PRIMARY/SECONDARY 12?Tonsillectomy ? CURRENT MEDICATIONS Current Outpatient MedicationsMedicationSigDispenseRe fill???pregabalin (LYRICA) 75 mg capsuleTake 1 capsule by mouth once daily for 180 days.30 capsule5???valACYclovir (VALTREX) 500 mg tabletTake 4 tablets twice daily X 1 day. Then start one tablet by mouth daily thereafter.38 tablet4???Nebulizer Accessories kit1 Units once daily as needed.1 Each0???sertraline (ZOLOFT) 50 mg tabletTake 1 tablet by mouth once daily.30 tablet5???calcium carbonate 400 mg (1,000 mg) chewTake 1,000 mg by mouth once daily.?ferrous sulfate (IRON) 325 mg (65 mg iron) tabletTake 325 mg by mouth once daily.?SUMAtriptan (IMITREX) 100 mg tabletTake 1 tablet (100 mg) by mouth as needed. START AT ONSET OF HEADACHE. MAY REPEAT DOSE AFTER 2 HOURS.9 tablet5???cyanocobalamin (VITAMIN B-12) 100 mcg tabTake 100 mcg by mouth once daily.?ergocalciferol, vitamin D2, (VITAMIN D2 ORAL)Take by mouth.?MULTIVITAMIN NO.43-IRON-FA ORALTake by mouth.?No current facility-administered medications for this visit. ? ALLERGIES: Gabapentin; Prednisone; Gardasil 9 (Pf) [Human Papillomav Vac,9-Elda(Pf)]; Lexapro [Escitalopram]; Tree And Shrub Pollen; and Topamax [Topiramate] ??? PERSONAL HISTORY: SOCIAL HISTORY Social History???Tobacco Use???Smoking status:Former?Current packs/day:0.00?Average packs/day:0.3 packs/day for 24.0 years (6.0 ttl pk-yrs)?Types:Cigarettes?Start date:03/19/1990?Quit date:2014?Years since quittin.5???Smokeless tobacco:Never???Tobacco comments:?Quit in 2014, does vape dailyVaping Use???Vaping status:current everyday user???Start date:08/10/2023???Substances:Nicotin e???Devices:DisposableSubstance Use Topics???Alcohol use:Not Currently? Comment: rarely???Drug use:No ??? FAMILY HISTORY: FAMILY HISTORY FAMILY HISTORY ProblemRelationAge of Onset???Breast CancerMother?DiabetesMaternal Grandmother?DiabetesMaternal Uncle? REVIEW OF SYMPTOMS: GENERAL: denies fevers or chills ENDOCRINOLOGY: has not been on steroids Cardiology : denies palpitations or chest pain Respiratory: denies SOB or cough Hematology: denies history of prolonged bleeding or easy bruising or VTE Allergy: Denies history of personal or family history of allergy to anesthesia ??? PHYSICAL EXAMINATION: ??? VITALS: Blood pressure 102/58, pulse 70, height 172.7 cm (5' 8), weight 83.5 kg (184 lb), last menstrual period 08/06/2024, SpO2 97%. ??? GENERAL: The patient is well nourished, well hydrated in no acute distress. , The patient is oriented to time, place, and person. NECK: Supple. No lynphadenopathy, normal thyroid, no thyromegaly. LUNGS: Clear to auscultation bilaterally. no wheezes, rhonchi or rales HEART: Regular rate and rhythm, Normal heart sounds, and No murmurs or gallops ? Pelvic US 07/21/24: The contour of the uterus and the endometrial cavity were evaluated with 3-D imaging. Findings are suggestive of arcuate uterus. The uterus is anteverted and measures 112 mm x 44 mm x 73 mm. A anteverted uterus seen that measures 112 mm x 44 mm x 73 mm. The myometrium is heterogeneous, asymmetrically thickened, and with cystic lakes and is suggestive of adenomyosis. The endometrial thickness is 10.5 mm. There is a left later (more content not included)... [facility] 08-24-[facility]24 Note HNO ID: [id number] Author: BEULAH CAMPA MD Service: ? Author Type: Physician Type: Progress Notes Filed: 08/24/2024 12:38 Note Text: Raul Chong is a 43 year old female who presents for problem visit for f/u AUB. HPI: 43 YOF w/ no new c/o today. Still w AUB. 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 History Comments: Sexual Activity: Yes; Male Contraception: Tubal Ligation Menstrual Tracking History Flowsheet Row Office Visit from 07/12/2024 in OB/Gynecology Period Cycle (Days) 30 Period Duration (Days) 4 Menstrual Flow Moderate PAST MEDICAL HISTORY Diagnosis Date Autoimmune disease (HCC) Degeneration of intervertebral disc, site unspecified Depression Migraines Mild intermittent asthma (HCC) Obesity Osteoarthritis of both knees Plantar fasciitis Psoriasis PAST SURGICAL HISTORY Procedure Laterality Date ADENOIDECTOMY PRIMARY Adenoidectomy DELIVERY ONLY , low cervical GASTRIC BYPASS HX Pt reported 2021 LAPAROSCOPY SURG CHOLECYSTECTOMY 2013 PAST SURGICAL HISTORY OF Bilateral arthoscopy to ankles, scar tissue removal and tendon lengthening REMOVAL OF EXCESSIVE SKIN Stomach TONSILLECTOMY PRIMARY/SECONDARY Tonsillectomy FAMILY HISTORY Problem Relation Age of Onset Breast Cancer Mother Diabetes Maternal Grandmother Diabetes Maternal Uncle Social History Tobacco Use Smoking status: Former Current packs/day: 0.00 Average packs/day: 0.3 packs/day for 24.0 years (6.0 ttl pk-yrs) Types: Cigarettes Start date: 03/19/1990 Quit date: 2015 Years since quittin.5 Smokeless tobacco: Never Tobacco comments: Quit in 2014, does vape daily Vaping Use Vaping status: current everyday user Start date: 08/10/2023 Substances: Nicotine Devices: Disposable Substance Use Topics Alcohol use: Not Currently Comment: rarely Drug use: No Current Outpatient Medications Medication Sig pregabalin (LYRICA) 75 mg capsule Take 1 capsule by mouth once daily for 180 days. valACYclovir (VALTREX) 500 mg tablet Take 4 tablets twice daily X 1 day. Then start one tablet by mouth daily thereafter. Nebulizer Accessories kit 1 Units once daily as needed. sertraline (ZOLOFT) 50 mg tablet Take 1 tablet by mouth once daily. calcium carbonate 400 mg (1,000 mg) chew Take 1,000 mg by mouth once daily. ferrous sulfate (IRON) 325 mg (65 mg iron) tablet Take 325 mg by mouth once daily. SUMAtriptan (IMITREX) 100 mg tablet Take 1 tablet (100 mg) by mouth as needed. START AT ONSET OF HEADACHE. MAY REPEAT DOSE AFTER 2 HOURS. cyanocobalamin (VITAMIN B-12) 100 mcg tab Take 100 mcg by mouth once daily. ergocalciferol, vitamin D2, (VITAMIN D2 ORAL) Take by mouth. MULTIVITAMIN NO.43-IRON-FA ORAL Take by mouth. No current facility-administered medications for this visit. Allergies As of Date: 08/24/2024 Allergen Noted Reaction GABAPENTIN 04/13/2014 Other: See Comments PREDNISONE 04/18/2015 Mental Status Change GARDASIL 9 (PF) [HUMAN PAPILLOMAV*07/19/2024 Rash, Itching, and Other: See Comments LEXAPRO [ESCITALOPRAM] 02/22/2024 Mental Status Change TREE AND SHRUB POLLEN 07/22/2023 Other: See Comments TOPAMAX [TOPIRAMATE] 12/12/2016 Other: See Comments Fully Assessed 08/24/2024 RAllergies and current medication updated:Yes SENSITIVE EXAM: Sensitive exam not performed. EXAM: BP 102/58 Pulse 70 Ht 5' 8 (1.73m) Wt 184 lb (83.5kg) SpO2 97% LMP 08/06/2024 BMI 27.98 kg/(m2). GENERAL: pleasant, female in no apparent distress Pelvic US 07/21/24: The contour of the uterus and the endometrial cavity were evaluated with 3-D imaging. Findings are suggestive of arcuate uterus. The uterus is anteverted and measures 112 mm x 44 mm x 73 mm. A anteverted uterus seen that measures 112 mm x 44 mm x 73 mm. The myometrium is heterogeneous, asymmetrically thickened, and with cystic lakes and is suggestive of adenomyosis. The endometrial thickness is 10.5 mm. There is a left lateral anterior wall intramural fibroid that measures 18 mm x 20 mm x 23 mm. The right ovary measures 24 mm x 24 mm x 12 mm. The left ovary measures 49 mm x 29 mm x 24 mm. There is a left simple paraovarian/paratubal cyst that measures 7.0 mm x 9.7 mm x 6.5 mm. There is no free fluid visualized. Technique: Three dimensional imaging was created on a dedicated stand-alone 3D workstation with images created and archived, and supervised and reviewed by the interpreting physician utilizing images from a US Scan performed on 07/21/24. Duplex scan was performed using B-Mode/bianchi scale imaging and Doppler spectral analysis and color flow. Recommendations Arcuate uterus. Fibroid uterus. Clinical correlation is recommended. ASSESSMENT AND PLAN: (more content not included)... [facility] 08-24-2024 History of Present illness Narrative Raul Chong is a 43 year old female who presents for problem visit for f/u AUB. HPI: 43 YOF w/ no new c/o today. Still w AUB. 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 History Comments: Sexual Activity: Yes; Male Contraception: Tubal Ligation Menstrual Tracking History Flowsheet Row Office Visit from 07/12/2024 in OB/Gynecology Period Cycle (Days) 30 Period Duration (Days) 4 Menstrual Flow Moderate PAST MEDICAL HISTORY Diagnosis Date Autoimmune disease (HCC) Degeneration of intervertebral disc, site unspecified Depression Migraines Mild intermittent asthma (HCC) Obesity Osteoarthritis of both knees Plantar fasciitis Psoriasis PAST SURGICAL HISTORY Procedure Laterality Date ADENOIDECTOMY PRIMARY <AGE 11 Adenoidectomy DELIVERY ONLY , low cervical GASTRIC BYPASS HX Pt reported 2021 LAPAROSCOPY SURG CHOLECYSTECTOMY 2013 PAST SURGICAL HISTORY OF Bilateral arthoscopy to ankles, scar tissue removal and tendon lengthening REMOVAL OF EXCESSIVE SKIN Stomach TONSILLECTOMY PRIMARY/SECONDARY <AGE 11 Tonsillectomy FAMILY HISTORY Problem Relation Age of Onset Breast Cancer Mother Diabetes Maternal Grandmother Diabetes Maternal Uncle Social History Tobacco Use Smoking status: Former Current packs/day: 0.00 Average packs/day: 0.3 packs/day for 24.0 years (6.0 ttl pk-yrs) Types: Cigarettes Start date: 03/19/1990 Quit date: 2015 Years since quittin.5 Smokeless tobacco: Never Tobacco comments: Quit in 2015, does vape daily Vaping Use Vaping status: current everyday user Start date: 08/10/2023 Substances: Nicotine Devices: Disposable Substance Use Topics Alcohol use: Not Currently Comment: rarely Drug use: No Current Outpatient Medications Medication Sig pregabalin (LYRICA) 75 mg capsule Take 1 capsule by mouth once daily for 180 days. valACYclovir (VALTREX) 500 mg tablet Take 4 tablets twice daily X 1 day. Then start one tablet by mouth daily thereafter. Nebulizer Accessories kit 1 Units once daily as needed. sertraline (ZOLOFT) 50 mg tablet Take 1 tablet by mouth once daily. calcium carbonate 400 mg (1,000 mg) chew Take 1,000 mg by mouth once daily. ferrous sulfate (IRON) 325 mg (65 mg iron) tablet Take 325 mg by mouth once daily. SUMAtriptan (IMITREX) 100 mg tablet Take 1 tablet (100 mg) by mouth as needed. START AT ONSET OF HEADACHE. MAY REPEAT DOSE AFTER 2 HOURS. cyanocobalamin (VITAMIN B-12) 100 mcg tab Take 100 mcg by mouth once daily. ergocalciferol, vitamin D2, (VITAMIN D2 ORAL) Take by mouth. MULTIVITAMIN NO.43-IRON-FA ORAL Take by mouth. No current facility-administered medications for this visit. Allergies As of Date: 08/24/2024 Allergen Noted Reaction GABAPENTIN 04/13/2014 Other: See Comments PREDNISONE 04/18/2015 Mental Status Change GARDASIL 9 (PF) [HUMAN PAPILLOMAV*07/19/2024 Rash, Itching, and Other: See Comments LEXAPRO [ESCITALOPRAM] 02/22/2024 Mental Status Change TREE AND SHRUB POLLEN 07/22/2023 Other: See Comments TOPAMAX [TOPIRAMATE] 12/12/2016 Other: See Comments Fully Assessed 08/24/2024 RAllergies and current medication updated:Yes SENSITIVE EXAM: Sensitive exam not performed. EXAM: BP 102/58 Pulse 70 Ht 5' 8 (1.73m) Wt 184 lb (83.5kg) SpO2 97% LMP 08/06/2024 BMI 27.98 kg/(m^2). GENERAL: pleasant, female in no apparent distress Pelvic US 07/21/24: The contour of the uterus and the endometrial cavity were evaluated with 3-D imaging. Findings are suggestive of arcuate uterus. The uterus is anteverted and measures 112 mm x 44 mm x 73 mm. A anteverted uterus seen that measures 112 mm x 44 mm x 73 mm. The myometrium is heterogeneous, asymmetrically thickened, and with cystic lakes and is suggestive of adenomyosis. The endometrial thickness is 10.5 mm. There is a left lateral anterior wall intramural fibroid that measures 18 mm x 20 mm x 23 mm. The right ovary measures 24 mm x 24 mm x 12 mm. The left ovary measures 49 mm x 29 mm x 24 mm. There is a left simple paraovarian/paratubal cyst that measures 7.0 mm x 9.7 mm x 6.5 mm. There is no free fluid visualized. Technique: Three dimensional imaging was created on a dedicated stand-alone 3D workstation with images created and archived, and supervised and reviewed by the interpreting physician utilizing images from a US Scan performed on 07/21/24. Duplex scan was performed using B-Mode/bianchi scale imaging and Doppler spectral analysis and color flow. Recommendations Arcuate uterus. Fibroid uterus. Clinical correlation is recommended. ASSESSMENT AND PLAN: Assessment & Plan Adenomyosis of uterus Arcuate uterus Intramural uterine fibroid Dysmenorrhea Not a good IUD candidate due to IUD. R/B/a to hysterectomy reviewed, questions answered. Desires to proceed. Decision for surgery today. 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 Beulah Campa MD documented in this encounter [facility] 08-24-2024 History and physical note Pre-Op History and Physical HPI: The patient is a 43 year old female presenting for pre-operative visit. She is scheduled for TLH, bilateral salpingectomy and cystoscopy, for adenomyosis, AUB, dysmenorrhea, intramural uterine fibroid and arcuate uterus on 09/01/24. Procedure discussed along with risks, benefits and complications. Other alternatives discussed for management. Consent form signed? Yes. PAST MEDICAL HISTORY Diagnosis Date Autoimmune disease (HCC) Degeneration of intervertebral disc, site unspecified Depression Migraines Mild intermittent asthma (HCC) Obesity Osteoarthritis of both knees Plantar fasciitis Psoriasis PAST SURGICAL HISTORY Procedure Laterality Date ADENOIDECTOMY PRIMARY Adenoidectomy DELIVERY ONLY , low cervical GASTRIC BYPASS HX Pt reported 2021 LAPAROSCOPY SURG CHOLECYSTECTOMY 2013 PAST SURGICAL HISTORY OF Bilateral arthoscopy to ankles, scar tissue removal and tendon lengthening REMOVAL OF EXCESSIVE SKIN Stomach TONSILLECTOMY PRIMARY/SECONDARY Tonsillectomy Current Outpatient Medications Medication Sig Dispense Refill pregabalin (LYRICA) 75 mg capsule Take 1 capsule by mouth once daily for 180 days. 30 capsule 5 valACYclovir (VALTREX) 500 mg tablet Take 4 tablets twice daily X 1 day. Then start one tablet by mouth daily thereafter. 38 tablet 4 Nebulizer Accessories kit 1 Units once daily as needed. 1 Each 0 sertraline (ZOLOFT) 50 mg tablet Take 1 tablet by mouth once daily. 30 tablet 5 calcium carbonate 400 mg (1,000 mg) chew Take 1,000 mg by mouth once daily. ferrous sulfate (IRON) 325 mg (65 mg iron) tablet Take 325 mg by mouth once daily. SUMAtriptan (IMITREX) 100 mg tablet Take 1 tablet (100 mg) by mouth as needed. START AT ONSET OF HEADACHE. MAY REPEAT DOSE AFTER 2 HOURS. 9 tablet 5 cyanocobalamin (VITAMIN B-12) 100 mcg tab Take 100 mcg by mouth once daily. ergocalciferol, vitamin D2, (VITAMIN D2 ORAL) Take by mouth. MULTIVITAMIN NO.43-IRON-FA ORAL Take by mouth. No current facility-administered medications for this visit. ALLERGIES: Gabapentin; Prednisone; Gardasil 9 (Pf) [Human Papillomav Vac,9-Elda(Pf)]; Lexapro [Escitalopram]; Tree And Shrub Pollen; and Topamax [Topiramate] PERSONAL HISTORY: Social History Tobacco Use Smoking status: Former Current packs/day: 0.00 Average packs/day: 0.3 packs/day for 24.0 years (6.0 ttl pk-yrs) Types: Cigarettes Start date: 03/19/1990 Quit date: 2014 Years since quittin.5 Smokeless tobacco: Never Tobacco comments: Quit in 2014, does vape daily Vaping Use Vaping status: current everyday user Start date: 08/10/2023 Substances: Nicotine Devices: Disposable Substance Use Topics Alcohol use: Not Currently Comment: rarely Drug use: No FAMILY HISTORY: FAMILY HISTORY Problem Relation Age of Onset Breast Cancer Mother Diabetes Maternal Grandmother Diabetes Maternal Uncle REVIEW OF SYMPTOMS: GENERAL: denies fevers or chills ENDOCRINOLOGY: has not been on steroids Cardiology : denies palpitations or chest pain Respiratory: denies SOB or cough Hematology: denies history of prolonged bleeding or easy bruising or VTE Allergy: Denies history of personal or family history of allergy to anesthesia PHYSICAL EXAMINATION: VITALS: Blood pressure 102/58, pulse 70, height 172.7 cm (5' 8), weight 83.5 kg (184 lb), last menstrual period 08/06/2024, SpO2 97%. GENERAL: The patient is well nourished, well hydrated in no acute distress. , The patient is oriented to time, place, and person. NECK: Supple. No lynphadenopathy, normal thyroid, no thyromegaly. LUNGS: Clear to auscultation bilaterally. no wheezes, rhonchi or rales HEART: Regular rate and rhythm, Normal heart sounds, and No murmurs or gallops Pelvic US 07/21/24: The contour of the uterus and the endometrial cavity were evaluated with 3-D imaging. Findings are suggestive of arcuate uterus. The uterus is anteverted and measures 112 mm x 44 mm x 73 mm. A anteverted uterus seen that measures 112 mm x 44 mm x 73 mm. The myometrium is heterogeneous, asymmetrically thickened, and with cystic lakes and is suggestive of adenomyosis. The endometrial thickness is 10.5 mm. There is a left lateral anterior wall intramural fibroid that measures 18 mm x 20 mm x 23 mm. The right ovary measures 24 mm x 24 mm x 12 mm. The left ovary measures 49 mm x 29 mm x 24 mm. There is a left simple paraovarian/paratubal cyst that measures 7.0 mm x 9.7 mm x 6.5 mm. There is no free fluid visualized. Technique: Three dimensional imaging was created on a dedicated stand-alone 3D workstation with images created and archived, and supervised and reviewed by the interpreting physician utilizing images from a US Scan performed on 07/21/24. Duplex scan was performed using B-Mode/bianchi scale imaging and Doppler spectral analysis and color flow. Recommendations Arcuate uterus. Fibroid uterus. Clinical correlation is recommended. IMPRESSION: arcuate uterus, dysmenorrhea, AUB, adenomyosis, intramural uterine fibroid PLAN: The risks/benefits/alternatives and personal involved for the planned TLH, bilateral salpingectomy and cystoscopy were reviewed with the patient. Her questions were answered to her satisfaction and she desires to proceed. Consent was signed. I reviewed with her postop instructions and expectations. I have reviewed and updated past medical and surgical history, medications and allergies Beulah Campa M.D. [facility] 08-24-2024 History and physical note Pre-Op History and Physical HPI: The patient is a 43 year old female presenting for pre-operative visit. She is scheduled for TLH, bilateral salpingectomy and cystoscopy, for adenomyosis, AUB, dysmenorrhea, intramural uterine fibroid and arcuate uterus on 09/01/24. Procedure discussed along with risks, benefits and complications. Other alternatives discussed for management. Consent form signed? Yes. PAST MEDICAL HISTORY Diagnosis Date Autoimmune disease (HCC) Degeneration of intervertebral disc, site unspecified Depression Migraines Mild intermittent asthma (HCC) Obesity Osteoarthritis of both knees Plantar fasciitis Psoriasis PAST SURGICAL HISTORY Procedure Laterality Date ADENOIDECTOMY PRIMARY <AGE 11 Adenoidectomy DELIVERY ONLY , low cervical GASTRIC BYPASS HX Pt reported 2021 LAPAROSCOPY SURG CHOLECYSTECTOMY 2013 PAST SURGICAL HISTORY OF Bilateral arthoscopy to ankles, scar tissue removal and tendon lengthening REMOVAL OF EXCESSIVE SKIN Stomach TONSILLECTOMY PRIMARY/SECONDARY <AGE 11 Tonsillectomy Current Outpatient Medications Medication Sig Dispense Refill pregabalin (LYRICA) 75 mg capsule Take 1 capsule by mouth once daily for 180 days. 30 capsule 5 valACYclovir (VALTREX) 500 mg tablet Take 4 tablets twice daily X 1 day. Then start one tablet by mouth daily thereafter. 38 tablet 4 Nebulizer Accessories kit 1 Units once daily as needed. 1 Each 0 sertraline (ZOLOFT) 50 mg tablet Take 1 tablet by mouth once daily. 30 tablet 5 calcium carbonate 400 mg (1,000 mg) chew Take 1,000 mg by mouth once daily. ferrous sulfate (IRON) 325 mg (65 mg iron) tablet Take 325 mg by mouth once daily. SUMAtriptan (IMITREX) 100 mg tablet Take 1 tablet (100 mg) by mouth as needed. START AT ONSET OF HEADACHE. MAY REPEAT DOSE AFTER 2 HOURS. 9 tablet 5 cyanocobalamin (VITAMIN B-12) 100 mcg tab Take 100 mcg by mouth once daily. ergocalciferol, vitamin D2, (VITAMIN D2 ORAL) Take by mouth. MULTIVITAMIN NO.43-IRON-FA ORAL Take by mouth. No current facility-administered medications for this visit. ALLERGIES: Gabapentin; Prednisone; Gardasil 9 (Pf) [Human Papillomav Vac,9-Elda(Pf)]; Lexapro [Escitalopram]; Tree And Shrub Pollen; and Topamax [Topiramate] PERSONAL HISTORY: Social History Tobacco Use Smoking status: Former Current packs/day: 0.00 Average packs/day: 0.3 packs/day for 24.0 years (6.0 ttl pk-yrs) Types: Cigarettes Start date: 03/19/1990 Quit date: 2014 Years since quittin.5 Smokeless tobacco: Never Tobacco comments: Quit in 2015, does vape daily Vaping Use Vaping status: current everyday user Start date: 08/10/2023 Substances: Nicotine Devices: Disposable Substance Use Topics Alcohol use: Not Currently Comment: rarely Drug use: No FAMILY HISTORY: FAMILY HISTORY Problem Relation Age of Onset Breast Cancer Mother Diabetes Maternal Grandmother Diabetes Maternal Uncle REVIEW OF SYMPTOMS: GENERAL: denies fevers or chills ENDOCRINOLOGY: has not been on steroids Cardiology : denies palpitations or chest pain Respiratory: denies SOB or cough Hematology: denies history of prolonged bleeding or easy bruising or VTE Allergy: Denies history of personal or family history of allergy to anesthesia PHYSICAL EXAMINATION: VITALS: Blood pressure 102/58, pulse 70, height 172.7 cm (5' 8), weight 83.5 kg (184 lb), last menstrual period 08/06/2024, SpO2 97%. GENERAL: The patient is well nourished, well hydrated in no acute distress. , The patient is oriented to time, place, and person. NECK: Supple. No lynphadenopathy, normal thyroid, no thyromegaly. LUNGS: Clear to auscultation bilaterally. no wheezes, rhonchi or rales HEART: Regular rate and rhythm, Normal heart sounds, and No murmurs or gallops Pelvic US 07/21/24: The contour of the uterus and the endometrial cavity were evaluated with 3-D imaging. Findings are suggestive of arcuate uterus. The uterus is anteverted and measures 112 mm x 44 mm x 73 mm. A anteverted uterus seen that measures 112 mm x 44 mm x 73 mm. The myometrium is heterogeneous, asymmetrically thickened, and with cystic lakes and is suggestive of adenomyosis. The endometrial thickness is 10.5 mm. There is a left lateral anterior wall intramural fibroid that measures 18 mm x 20 mm x 23 mm. The right ovary measures 24 mm x 24 mm x 12 mm. The left ovary measures 49 mm x 29 mm x 24 mm. There is a left simple paraovarian/paratubal cyst that measures 7.0 mm x 9.7 mm x 6.5 mm. There is no free fluid visualized. Technique: Three dimensional imaging was created on a dedicated stand-alone 3D workstation with images created and archived, and supervised and reviewed by the interpreting physician utilizing images from a US Scan performed on 07/21/24. Duplex scan was performed using B-Mode/bianchi scale imaging and Doppler spectral analysis and color flow. Recommendations Arcuate uterus. Fibroid uterus. Clinical correlation is recommended. IMPRESSION: arcuate uterus, dysmenorrhea, AUB, adenomyosis, intramural uterine fibroid PLAN: The risks/benefits/alternatives and personal involved for the planned TLH, bilateral salpingectomy and cystoscopy were reviewed with the patient. Her questions were answered to her satisfaction and she desires to proceed. Consent was signed. I reviewed with her postop instructions and expectations. I have reviewed and updated past medical and surgical history, medications and allergies Beulah Campa M.D. documented in this encounter [facility] 08-16-2024 Discharge summary [facility] 08-16-2024 Radiology Diagnostic study note [facility] Imaging Services [address], [place] [id number] Chest 1 View (Portable) MR#: [id number] Acct: [id number] Name: RAUL FLEMING Rep #: [id number] : 1980 F [id number] From: Sushma Ruiz MD PCP: Dr. Maira Escamilla MD Status: REG E R Study:Chest 1 View (Portable) Date of Exam: 08/16/24 Exam# [id number] Ordering Dr: Carlos Dockery MD EXAM: XR Chest, 1 View CLINICAL INDICATION: FEVER TECHNIQUE: Frontal view of the chest. COMPARISON: No relevant prior studies available. FINDINGS: LUNGS AND PLEURAL SPACES: Unremarkable. No consolidation. No pneumothorax. HEART: Unremarkable. No cardiomegaly. MEDIASTINUM: Unremarkable. Normal mediastinal contour. BONES/JOINTS: Unremarkable. No acute fracture. RAD/Chest 1 View (Portable) IMPRESSION: No acute cardiopulmonary process. Reading Location: [facility] CC: Dr. Carlos Dockery MD; Dr. Maira Escamilla MD ~ Fireworks Assembly Supervisor: Signed [facility] 08-07-2024 Telephone encounter Note Patient calling back because she has not received a call from the carbon paper coating supervisor provider. Conferenced patient to [place] in the [place] answering service to have carbon paper coating supervisor provider paged again [facility] 08-07-2024 Miscellaneous Notes Patient calling back because she has not received a call from the carbon paper coating supervisor provider. Conferenced patient to [place] in the [place] answering service to have carbon paper coating supervisor provider paged again Patient calling regarding FREEZER LABORATORY TECHNICIAN. She had a uterine biopsy 08/04 and had some cramping and spotting after. She was fine Thursday. Yesterday she went to [place] and developed bright red bleeding and began passing clots intermittently. Today she is having more bleeding and clots. Contacted the [place] [facility] [ ] who took patient's information and will text page provider carbon paper coating supervisor for Makeda Olivares CNP. I told patient that if while she was waiting to hear from the provider and if her condition worsens or she is concerned, she should call 911 or go to the ER. Patient voices understanding. documented in this encounter [facility] 08-07-2024 Telephone encounter Note Patient calling regarding FREEZER LABORATORY TECHNICIAN. She had a uterine biopsy 08/04 and had some cramping and spotting after. She was fine Thursday. Yesterday she went to [place] and developed bright red bleeding and began passing clots intermittently. Today she is having more bleeding and clots. Contacted the [place] [facility] [ ] who took patient's information and will text page provider carbon paper coating supervisor for Makeda Smith.FATEMEH WRIGHT. I told patient that if while she was waiting to hear from the provider and if her condition worsens or she is concerned, she should call 911 or go to the ER. Patient voices understanding. 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 Silke is a 43 year old Female who presents today for an endometrial biopsy for abnormal uterine bleeding, adenomyosis. test: negative UNIVERSAL PROTOCOL / SAFETY CHECKLIST Procedure to be Performed: Endometrial Biopsy Sign In: A Moment of CARE was completed. Appropriate PPE (Personal Protective Equipment) worn by all providers involved with the procedure. Special equipment not required. Patient/Surrogate Stated/Verified: Patient name, Date of , Relevant allergies, and The intended procedure Time Out: Relevant labs, photos, and/or imaging studies have been reviewed. Intended patient and procedure match the source document(s) (e.g. consent, H&P, associated studies [imaging, pathology]) match the intended patient and procedure. Consent obtained and matches the intended procedure. Yes. Correct side/site is not applicable. Medications required for this procedure are verified. Fire risk assessed and is not applicable. Implants: are not applicable. Sign Out: Specimens are all correctly labeled and sent. All instruments, equipment, possible retained foreign bodies are accounted for. Yes. The post-procedure plan of care has been communicated to the patient or surrogate. PROCEDURE: EXTERNAL GENITALIA: Normal in appearance without lesions VAGINA: Normal in appearance without lesions BIOPSY: Speculum placed into the vagina with excellent visualization of the cervix. Cervix cleaned with betadine. Anterior lip of cervix grasped with single toothed tenaculum. Uterus sounded to 10 cm. Pipelle inserted into the uterus without difficulty and endometrial biopsy obtained. Specimen labeled and sent to pathology. Hemostasis achieved. Procedure Summary: Patient tolerated procedure well. ASSESSMENT: heavy menses, adenomyosis PLAN: Specimens labeled and sent to Pathology. Will notify patient of results in 1-2 weeks. Post-procedure instructions reviewed and written material given to the patient. Makeda Smith APRN.FATEMEH documented in this encounter [facility] 08-04-2024 Note HNO ID: [id number] Author: MAKEDA SMITH APRN.CNP Service: ? 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 Silke is a 43 year old Female who presents today for an endometrial biopsy for abnormal uterine bleeding, adenomyosis. test: negative UNIVERSAL PROTOCOL / SAFETY CHECKLIST Procedure to be Performed: Endometrial Biopsy Sign In: A Moment of CARE was completed. Appropriate PPE (Personal Protective Equipment) worn by all providers involved with the procedure. Special equipment not required. Patient/Surrogate Stated/Verified: Patient name, Date of , Relevant allergies, and The intended procedure Time Out: Relevant labs, photos, and/or imaging studies have been reviewed. Intended patient and procedure match the source document(s) (e.g. consent, HANDP, associated studies [imaging, pathology]) match the intended patient and procedure. Consent obtained and matches the intended procedure. Yes. Correct side/site is not applicable. Medications required for this procedure are verified. Fire risk assessed and is not applicable. Implants: are not applicable. Sign Out: Specimens are all correctly labeled and sent. All instruments, equipment, possible retained foreign bodies are accounted for. Yes. The post-procedure plan of care has been communicated to the patient or surrogate. PROCEDURE: EXTERNAL GENITALIA: Normal in appearance without lesions VAGINA: Normal in appearance without lesions BIOPSY: Speculum placed into the vagina with excellent visualization of the cervix. Cervix cleaned with betadine. Anterior lip of cervix grasped with single toothed tenaculum. Uterus sounded to 10 cm. Pipelle inserted into the uterus without difficulty and endometrial biopsy obtained. Specimen labeled and sent to pathology. Hemostasis achieved. Procedure Summary: Patient tolerated procedure well. ASSESSMENT: heavy menses, adenomyosis PLAN: Specimens labeled and sent to Pathology. Will notify patient of results in 1-2 weeks. Post-procedure instructions reviewed and written material given to the patient. Makeda Smith APRN.CNP [facility] 08-04-2024 Instructions Makeda Smith APRN.CNP - 08/04/2024 8:59 AM EDT Endometrial Biopsy YOUR RECOVERY After your biopsy you may have: - Vaginal bleeding (less than a normal menstrual period) - Mild cramping Do NOT put anything in the vagina for 1 week after your endometrial biopsy. This includes sex, tampons, and douches. If you have any discomfort, you may take an over the counter pain medication (motrin, advil, ibuprofen, tylenol, etc). If this does not relieve your discomfort, contact your doctor's office for a prescription strength pain medication. It is okay to wear a sanitary pad until the discharge and spotting stops. RISKS Although problems seldom occur with endometrial biopsies, there can be some complications. You may feel faint during and shortly after the procedure as well as have some bleeding after the procedure. There is also a risk of infection after the procedure. These complications are rare and can be easily treated. You should contact you doctor is you have any of the following: - Heavy bleeding (more than your normal period) - Bleeding with clots - Severe abdominal pain - Fever (more than 100.4F) - Foul smelling vaginal discharge RESULTS We will have the results of your biopsy in 1-2 weeks. If you do not hear the results of your biopsy after 2 weeks, please contact your physicians office for the results. If you have any additional questions, please contact your doctor's office. documented in this encounter [facility] 08-01-2024 Note HNO ID: [id number] Author: BEULAH CAMPA MD Service: ? 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 Patient/authorized volunteer patient representative agreed to proceed CHIEF COMPLAINT: The patient is a 43-year-old female with a history of significant weight loss and bariatric surgery, presenting for evaluation of heavy menstrual bleeding and perimenopausal symptoms. HPI: Menstrual Irregularities - Reports a history of easy periods since menarche at age 12, typically lasting 4-5 days with minimal cramping. - Since entering perimenopause, she has experienced significant changes in her menstrual cycle, including heavy bleeding described as a pool in the toilet and increased duration of periods to 5-6 days. - Initially, she experienced alternating light and heavy periods, but now reports consistently heavy bleeding with each cycle. - Has had to switch from using small tampons to super tampons, changing them every couple of hours due to the increased flow. - Recently started experiencing cramping, which she did not have before, and uses a heating pad for relief. - Denies intermenstrual bleeding Vapes nicotine substances. worried about weight gain. Weight Loss - Has lost 250 pounds and reports feeling great. - Underwent bariatric surgery and a subsequent abdominoplasty on March 14 to remove excess skin. Urinary and Pelvic Floor Issues - Reports a resolution of previous urinary urgency and stress incontinence since her significant weight loss. - Denies any current issues with urination, nocturia, or feeling of prolapse. - Does not report any problems with bowel movements. 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 - Has a supportive boyfriend who is a mud trucker. - Drinks coffee but reports drinking water slowly and in small amounts. - Takes vitamins daily and reports eating well. - Has two children, both delivered via , and has had a tubal ligation. 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 History Comments: Sexual Activity: Yes; Male Contraception: Tubal Ligation Menstrual Tracking History Flowsheet Row Office Visit from 07/12/2024 in OB/Gynecology Period Cycle (Days) 30 Period Duration (Days) 4 Menstrual Flow Moderate PAST MEDICAL HISTORY Diagnosis Date Autoimmune disease (HCC) Degeneration of intervertebral disc, site unspecified Depression Migraines Mild intermittent asthma (HCC) Obesity Osteoarthritis of both knees Plantar fasciitis Psoriasis PAST SURGICAL HISTORY Procedure Laterality Date ADENOIDECTOMY PRIMARY Adenoidectomy DELIVERY ONLY , low cervical GASTRIC BYPASS HX Pt reported 2021 LAPAROSCOPY SURG CHOLECYSTECTOMY 2013 PAST SURGICAL HISTORY OF Bilateral arthoscopy to ankles, scar tissue removal and tendon lengthening REMOVAL OF EXCESSIVE SKIN Stomach TONSILLECTOMY PRIMARY/SECONDARY Tonsillectomy FAMILY HISTORY Problem Relation Age of Onset Breast Cancer Mother Diabetes Maternal Grandmother Diabetes Maternal Uncle Social History Tobacco Use Smoking status: Former Current packs/day: 0.00 Average packs/day: 0.3 packs/day for 24.0 years (6.0 ttl pk-yrs) Types: Cigarettes Start date: 03/19/1990 Quit date: 2014 Years since quittin.4 Smokeless tobacco: Never Tobacco comments: Quit in 2014, does vape daily Vaping Use Vaping status: current everyday user Start date: 08/10/2023 Substances: Nicotine Devices: Disposable Substance Use Topics Alcohol use: Not Currently Comment: rarely Drug use: No Current Outpatient Medications Medication Sig pregabalin (LYRICA) 75 mg capsule Take 1 capsule by mouth once daily for 180 days. valACYclovir (VALTREX) 500 mg tablet Take 4 tablets twice daily X 1 day. Then start one tablet by mouth daily thereafter. Nebulizer Accessories kit 1 Units once daily as needed. sertraline (ZOLOFT) 50 mg tablet Take 1 tablet by mouth once daily. calcium carbonate 400 mg (1,000 mg) chew Take 1,000 mg by mouth once daily. ferrous sulfate (IRON) 325 mg (65 mg iron) tablet Take 325 mg by mouth once daily. SUMAtriptan (IMITREX) 100 mg tablet Take 1 tablet (100 mg) by mouth as needed. START AT ONSET OF HEADACHE. MAY REPEAT DOSE AFTER 2 HOURS. cyanocobalamin (VITAMIN B-12) 100 mcg tab Take 100 mcg by mouth once daily. ergocalciferol, vitamin D2, (VITAMIN D2 ORAL) Take by mouth. MUL (more content not included)... [facility] 08-01-2024 History of Present illness Narrative Images from the original note were not included. Obstetrics and Gynecology [place] 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 Patient/authorized volunteer patient representative agreed to proceed CHIEF COMPLAINT: The patient is a 43-year-old female with a history of significant weight loss and bariatric surgery, presenting for evaluation of heavy menstrual bleeding and perimenopausal symptoms. HPI: Menstrual Irregularities - Reports a history of easy periods since menarche at age 12, typically lasting 4-5 days with minimal cramping. - Since entering perimenopause, she has experienced significant changes in her menstrual cycle, including heavy bleeding described as a pool in the toilet and increased duration of periods to 5-6 days. - Initially, she experienced alternating light and heavy periods, but now reports consistently heavy bleeding with each cycle. - Has had to switch from using small tampons to super tampons, changing them every couple of hours due to the increased flow. - Recently started experiencing cramping, which she did not have before, and uses a heating pad for relief. - Denies intermenstrual bleeding Vapes nicotine substances. worried about weight gain. Weight Loss - Has lost 250 pounds and reports feeling great. - Underwent bariatric surgery and a subsequent abdominoplasty on March 14 to remove excess skin. Urinary and Pelvic Floor Issues - Reports a resolution of previous urinary urgency and stress incontinence since her significant weight loss. - Denies any current issues with urination, nocturia, or feeling of prolapse. - Does not report any problems with bowel movements. 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 - Has a supportive boyfriend who is a mud trucker. - Drinks coffee but reports drinking water slowly and in small amounts. - Takes vitamins daily and reports eating well. - Has two children, both delivered via , and has had a tubal ligation. 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 History Comments: Sexual Activity: Yes; Male Contraception: Tubal Ligation Menstrual Tracking History Flowsheet Row Office Visit from 07/12/2024 in OB/Gynecology Period Cycle (Days) 30 Period Duration (Days) 4 Menstrual Flow Moderate PAST MEDICAL HISTORY Diagnosis Date Autoimmune disease (HCC) Degeneration of intervertebral disc, site unspecified Depression Migraines Mild intermittent asthma (HCC) Obesity Osteoarthritis of both knees Plantar fasciitis Psoriasis PAST SURGICAL HISTORY Procedure Laterality Date ADENOIDECTOMY PRIMARY <AGE 11 Adenoidectomy DELIVERY ONLY , low cervical GASTRIC BYPASS HX Pt reported 2021 LAPAROSCOPY SURG CHOLECYSTECTOMY 2013 PAST SURGICAL HISTORY OF Bilateral arthoscopy to ankles, scar tissue removal and tendon lengthening REMOVAL OF EXCESSIVE SKIN Stomach TONSILLECTOMY PRIMARY/SECONDARY <AGE 11 Tonsillectomy FAMILY HISTORY Problem Relation Age of Onset Breast Cancer Mother Diabetes Maternal Grandmother Diabetes Maternal Uncle Social History Tobacco Use Smoking status: Former Current packs/day: 0.00 Average packs/day: 0.3 packs/day for 24.0 years (6.0 ttl pk-yrs) Types: Cigarettes Start date: 03/19/1990 Quit date: 2014 Years since quittin.4 Smokeless tobacco: Never Tobacco comments: Quit in 2015, does vape daily Vaping Use Vaping status: current everyday user Start date: 08/10/2023 Substances: Nicotine Devices: Disposable Substance Use Topics Alcohol use: Not Currently Comment: rarely Drug use: No Current Outpatient Medications Medication Sig pregabalin (LYRICA) 75 mg capsule Take 1 capsule by mouth once daily for 180 days. valACYclovir (VALTREX) 500 mg tablet Take 4 tablets twice daily X 1 day. Then start one tablet by mouth daily thereafter. Nebulizer Accessories kit 1 Units once daily as needed. sertraline (ZOLOFT) 50 mg tablet Take 1 tablet by mouth once daily. calcium carbonate 400 mg (1,000 mg) chew Take 1,000 mg by mouth once daily. ferrous sulfate (IRON) 325 mg (65 mg iron) tablet Take 325 mg by mouth once daily. SUMAtriptan (IMITREX) 100 mg tablet Take 1 tablet (100 mg) by mouth as needed. START AT ONSET OF HEADACHE. MAY REPEAT DOSE AFTER 2 HOURS. cyanocobalamin (VITAMIN B-12) 100 mcg tab Take 100 mcg by mouth once daily. ergocalciferol, vitamin D2, (VITAMIN D2 ORAL) Take by mouth. MULTIVITAMIN NO.43-IRON-FA ORAL Take by mouth. No current facility-administered medications for this visit. ALLERGIES Allergen Reactions Gabapentin Other: See Comments Prednisone Mental Status Change Gardasil 9 (Pf) [Hu* Rash, Itching, Other: See Comments Pain/symptoms Occurred 1 week after initial HPV 9 vaccine Lexapro [Escitalopr* Mental Status Change Severe moustapha Tree And Shrub Poll* Other: See Comments Topamax [Topiramate] Other: See Comments anxiety REVIEW OF SYSTEMS: Constitutional: (+) weight loss Genitourinary: (+) heavy menstrual bleeding, (+) prolonged menses, (+) dysmenorrhea, (+) vaginal burning, (-) intermenstrual bleeding, (-) urinary urgency, (-) stress urinary incontinence, (-) nocturia Musculoskeletal: (+) back pain Objective SENSITIVE EXAM: The sensitive examination was discussed with the Patient or Patient's Authorized Refrigeration Repair Supervisor. As applicable, any other physician, advance practice provider, medical student, or other health professional student that will be observing or involved in the sensitive examination for educational or training purposes was discussed with the Patient or Authorized Refrigeration Repair Supervisor. The Patient or Authorized Refrigeration Repair Supervisor has agreed to proceed with the sensitive examination. (Sensitive examination includes inspection and/or palpation of the breasts, pelvis, prostate and anorectal regions). PHYSICAL EXAM: BP 110/66 Wt 186 lb (84.4kg) LMP 07/10/2024 GENERAL: Pleasant; in no apparent distress; appears to have lost significant weight ABDOMEN: soft, non-tender, well-healed scars from abdominoplasty and section noted, no masses, no hernias noted : - PELVIC: external genitalia normal, normal Bartholin's glands, urethra, Bug Tussle's glands, no vulvar lesions, no cervical lesions, good vaginal support, physiologic discharge present, normal appearing perineal body and perianal region - BIMANUAL: uterus normal size, shape and consistency, no adnexal masses, non-tender, uterus is mobile - Patient consent for exam received NEURO: alert and oriented x3 EXTREMITIES: normal Assessment & Plan ASSESSMENT AND PLAN: 1. Menorrhagia with regular cycle (N92.0) 2. Dysmenorrhea (N94.6) - Menorrhagia with regular cycle and dysmenorrhea; periods have become significantly heavier and longer, lasting 5-6 days, with increased cramping. - Discussed various treatment options including tranexamic acid, hormonal mehtods, Mirena IUD, endometrial ablation, and hysterectomy. 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 - Scheduled endometrial biopsy to rule out any underlying pathology; can be performed by or [facility], depending on availability. - Will coordinate with plastic surgery assistant to arrange hysterectomy before patient returns to work in mid-September. would be tlh, bilateral salpingectomy and cysto Beulah Campa MD documented in this encounter [facility] 08-01-2024 Telephone encounter Note Case message sent to material scheduler for an update [facility] 08-01-2024 Miscellaneous Notes Case message sent to material scheduler for an update Patient calling for an update on status of authorization for procedure. Please call to advise. Patient requesting return call to advise on insurance auth for surgery. See below. Please return call to [phone] Patient calling to see if prior authorization was sent to insurance company for her surgery with Dr. Sterling. She can be reached at [phone]. documented in this encounter [facility] 08-01-2024 Telephone encounter Note Patient calling for an update on status of authorization for procedure. Please call to advise. [facility] 07-26-2024 Telephone encounter Note Pt notified and Pt scheduled with RR on 08/01/24. Concha Akers RN [facility] 07-26-2024 Miscellaneous Notes Pt notified and Pt scheduled with RR on 08/01/24. Concha Akers RN Yes I just spoke with someone a little while ago and I had not had a chance to make the phone note on it yet. Dr. Henderson recommended her following up with one of them to discuss options and make medical decision from there. Makeda Smith APRN.CNP Patient called to inquire if RM spoke to one of the physicians regarding a hysterectomy for her. Does she just need an appointment to discuss? Laurel Vizcarra RN documented in this encounter [facility] 07-26-2024 Telephone encounter Note Yes I just spoke with someone a little while ago and I had not had a chance to make the phone note on it yet. Dr. Henderson recommended her following up with one of them to discuss options and make medical decision from there. Makeda Smith APRN.CNP [facility] Work Phone: 07-26-2024 Telephone encounter Note Patient called to inquire if RM spoke to one of the physicians regarding a hysterectomy for her. Does she just need an appointment to discuss? Laurel Vizcarra RN [facility] 07-22-2024 Note HNO ID: [id number] Author: MAKEDA SMITH APRN.CNP Service: ? Author Type: Nurse Practitioner Type: Progress Notes Filed: 07/22/2024 10:27 Note Text: Raul Chong is a 43 year old female who presents for problem visit redo pap SENSITIVE EXAM: The sensitive examination was discussed with the Patient or Patient's Authorized Refrigeration Repair Supervisor. As applicable, any other physician, advance practice provider, medical student, or other health professional student that will be observing or involved in the sensitive examination for educational or training purposes was discussed with the Patient or Authorized Refrigeration Repair Supervisor. The Patient or Authorized Refrigeration Repair Supervisor has agreed to proceed with the sensitive examination. (Sensitive examination includes inspection and/or palpation of the breasts, pelvis, prostate and anorectal regions). EXAM: BP 102/64 Wt 178 lb (80.7kg) LMP 07/10/2024 GENERAL: pleasant, female in no apparent distress HEENT: Normocephalic, atraumatic, mucus membranes moist, and no lesions CHEST: Normal inspiratory effort PELVIC: external genitalia normal, normal Bartholin's glands, urethra, Bug Tussle's glands, no vulvar lesions, no cervical lesions, physiologic discharge present, normal appearing perineal body and perianal region BIMANUAL: deferred NEURO: alert and oriented x3,exam grossly non-focal EXTREMITIES: normal ASSESSMENT AND PLAN: Assessment AND Plan Screening for cervical cancer Repeat Pap due to excess amount of blood and prior Pap. Makeda Smith APRN.[facility] 07-22-2024 History of Present illness Narrative Raul Chong is a 43 year old female who presents for problem visit redo pap SENSITIVE EXAM: The sensitive examination was discussed with the Patient or Patient's Authorized Refrigeration Repair Supervisor. As applicable, any other physician, advance practice provider, medical student, or other health professional student that will be observing or involved in the sensitive examination for educational or training purposes was discussed with the Patient or Authorized Refrigeration Repair Supervisor. The Patient or Authorized Refrigeration Repair Supervisor has agreed to proceed with the sensitive examination. (Sensitive examination includes inspection and/or palpation of the breasts, pelvis, prostate and anorectal regions). EXAM: BP 102/64 Wt 178 lb (80.7kg) LMP 07/10/2024 GENERAL: pleasant, female in no apparent distress HEENT: Normocephalic, atraumatic, mucus membranes moist, and no lesions CHEST: Normal inspiratory effort PELVIC: external genitalia normal, normal Bartholin's glands, urethra, Bug Tussle's glands, no vulvar lesions, no cervical lesions, physiologic discharge present, normal appearing perineal body and perianal region BIMANUAL: deferred NEURO: alert and oriented x3,exam grossly non-focal EXTREMITIES: normal ASSESSMENT AND PLAN: Assessment & Plan Screening for cervical cancer Repeat Pap due to excess amount of blood and prior Pap. Makeda Smith APRN.CNP documented in this encounter [facility] 07-21-2024 Note Indication Evaluation of abnormal uterine bleeding: menorrhagia with regular cycle Impression The contour of the uterus and the endometrial cavity were evaluated with 3-D imaging. Findings are suggestive of arcuate uterus. The uterus is anteverted and measures 112 mm x 44 mm x 73 mm. A anteverted uterus seen that measures 112 mm x 44 mm x 73 mm. The myometrium is heterogeneous, asymmetrically thickened, and with cystic lakes and is suggestive of adenomyosis. The endometrial thickness is 10.5 mm. There is a left lateral anterior wall intramural fibroid that measures 18 mm x 20 mm x 23 mm. The right ovary measures 24 mm x 24 mm x 12 mm. The left ovary measures 49 mm x 29 mm x 24 mm. There is a left simple paraovarian/paratubal cyst that measures 7.0 mm x 9.7 mm x 6.5 mm. There is no free fluid visualized. Technique: Three dimensional imaging was created on a dedicated stand-alone 3D workstation with images created and archived, and supervised and reviewed by the interpreting physician utilizing images from a US Scan performed on 07/21/24. Duplex scan was performed using B-Mode/bianchi scale imaging and Doppler spectral analysis and color flow. Recommendations Arcuate uterus. Fibroid uterus. Clinical correlation is recommended. Ultrasound findings suggestive for adenomyosis. Clinical correlation is recommended. Simple paraovarian/paratubal cyst, no follow up imaging is needed. History Medical History Surgery: section x 2 Surgery: Tubal ligation Menstrual History LMP on 07/14/2024. Contraception: tubal sterilization Method Transabdominal, transvaginal, 3D ultrasound examination, Color Doppler examination. View: Adequate visualization Uterus Uterus: Visualized Uterus position: anteverted Description of uterine malformations: arcuate Myometrium: heterogeneous, asymmetrically thickened, and with cystic lakes Endometrium: three-layer pattern Cervix details: cystic lesions identified suggesting superficial Nabothian cysts, fluid distended Uterus length 112 mm Uterus width 73 mm Uterus height 44 mm Uterus Vol 185.8 cm Endometrial thickness, total 10.5 mm Fibroids: Fibroids identified Uterine fibroid D1 18 mm Uterine fibroid D2 20 mm Uterine fibroid D3 23 mm Uterine fibroid mean 20.3 mm Uterine fibroid vol 4.342 cm Uterine fibroids findings: Left lateral anterior wall. intramural Polyps: No polyps identified Right Ovary Rt ovary: Visualized Rt ovary morphology: premenopausal normal follicular Rt ovary D1 24 mm Rt ovary D2 24 mm Rt ovary D3 12 mm Rt ovary Vol 3.6 cm Rt ovarian cyst(s): No cysts identified Left Ovary Lt ovary: Visualized Lt ovary morphology: premenopausal with dominant follicle Lt ovary D1 49 mm Lt ovary D2 29 mm Lt ovary D3 24 mm Lt ovary Vol 17.4 cm Lt ovarian cyst(s): No cysts identified Cul de Sac Visualized. no free fluid visualized Procedure To characterize the arcuate uterus, three dimensional imaging was created on a dedicated stand-alone 3D workstation with images created and archived, and supervised and reviewed by the interpreting physician utilizing images from an ultrasound scan performed today. Performed By: Viri Briseno RDMS Read By: Yelitza Rider M.D. [facility] 07-21-2024 Note HNO ID: [id number] Author: YELITZA RIDER MD Service: ? Author Type: Physician Type: Progress Notes Filed: 07/21/2024 13:46 Note Text: The patient presents for requested ultrasound. Full report available in the Imaging tab in [employer]. Yelitza Rider MD [facility] 07-21-2024 History of Present illness Narrative The patient presents for requested ultrasound. Full report available in the Imaging tab in [employer]. Yelitza Rider MD documented in this encounter [facility] 07-21-2024 History of Present illness Narrative Radiology Service Progress Note PATIENT NAME: Raul Chong DATE OF SERVICE: July 21, 2024 TIME: 11:38 AM PATIENT IDENTITY VERIFICATION COMPLETED USING TWO (2) IDENTIFIERS: Name and Date of confirmed by patient verbally. FALL SCREENING: Has the patient had 2 falls in the last year or 1 fall with injury or currently using an Ambulatory Assistive Device (Walker, Cane, Wheelchair, Crutches, etc.)? No PATIENT GENDER DATA: Assigned female at . status: : No status: NO. PATIENT RELEVANT IMPLANT DATA REVIEWED: Not Applicable PATIENT PRESENTS WITH AN IMPLANTABLE OR ATTACHED PEDIATRIC PHYSICAL THERAPIST: No RADIOLOGY DEPARTMENT: Mammography PERIPHERAL IV DATA: Not applicable SIGNED BY: Анна Nagel July 21, 2024 11:38 AM documented in this encounter [facility] 07-21-2024 Note HNO ID: [id number] Author: VIDHYA VAZQUEZ Mammo Tech Service: ? Author Type: Accountant Helper Type: Progress Notes Filed: 07/21/2024 11:38 Note Text: Radiology Service Progress Note PATIENT NAME: Raul Chong DATE OF SERVICE: July 21, 2024 TIME: 11:38 AM PATIENT IDENTITY VERIFICATION COMPLETED USING TWO (2) IDENTIFIERS: Name and Date of confirmed by patient verbally. FALL SCREENING: Has the patient had 2 falls in the last year or 1 fall with injury or currently using an Ambulatory Assistive Device (Walker, Cane, Wheelchair, Crutches, etc.)? No PATIENT GENDER DATA: Assigned female at . status: : No status: NO. PATIENT RELEVANT IMPLANT DATA REVIEWED: Not Applicable PATIENT PRESENTS WITH AN IMPLANTABLE OR ATTACHED PEDIATRIC PHYSICAL THERAPIST: No RADIOLOGY DEPARTMENT: Mammography PERIPHERAL IV DATA: Not applicable SIGNED BY: Анна Nagel July 21, 2024 11:38 AM [facility] 07-19-2024 Telephone encounter Note Patient notified. She is upset, she really wanted to get this vaccine. Asking if one vaccine will help prevent HPV at all even a small percentage? Can sent [employer] message with response. Alannah Vale RN [facility] 07-19-2024 Miscellaneous Notes Patient notified. She is upset, she really wanted to get this vaccine. Asking if one vaccine will help prevent HPV at all even a small percentage? Can sent [employer] message with response. Alannah Vale RN Please let the patient know that she can take Benadryl, along with ibuprofen and icing the area. Based on her reaction I would not recommend completing the series then. Makeda Smith APRN.CNP Patient had HPV vaccine 07/12/24. She had no issues until last night she woke up to pain at the injection site. Hurts to lift arm and has redness/rash below the area it would have been given. Asking if it's normal to have a reaction like this after a week and what she should do? She tried tylenol and ice to her arm to help so far. Should she get the rest of the series? Please advise. Alannah Vale RN documented in this encounter [facility] 07-19-2024 Telephone encounter Note Please let the patient know that she can take Benadryl, along with ibuprofen and icing the area. Based on her reaction I would not recommend completing the series then. Makeda Smith APRN.CNP [facility] Work Phone: 07-19-2024 Telephone encounter Note Patient had HPV vaccine 07/12/24. She had no issues until last night she woke up to pain at the injection site. Hurts to lift arm and has redness/rash below the area it would have been given. Asking if it's normal to have a reaction like this after a week and what she should do? She tried tylenol and ice to her arm to help so far. Should she get the rest of the series? Please advise. Alannah Vale RN [facility] 07-18-2024 Note HNO ID: [id number] Author: MAIRA ESCAMILLA MD Service: ? Author Type: Physician Type: Progress Notes Filed: 07/18/2024 15:33 Note Text: Patient never checked in for appt. [facility] 07-18-2024 History of Present illness Narrative Patient never checked in for appt. documented in this encounter [facility] 07-14-2024 Instructions Bonny Henry APRN.[employer] - 07/14/2024 4:15 PM EDT Patient is a candidate for a thighplasty, could reasonably improve the physical functional impairment. Discussed increased risk for infection, bleeding, wound healing complications, anesthesia complications with higher BMI. Encouraged patient to continue with weight loss for safety and best aesthetic outcome. The risks, benefits and options were discussed with the ptatient The risks included but not limited to pain, bleeding, infection, heavy scarring, damage to surrounding structures, fluid collections, asymmetry, and need for further procedures documented in this encounter [facility] 07-14-2024 Note HNO ID: [id number] Author: BRIAN GARCIA LPN Service: ? Author Type: LICENSED NURSE Type: Progress Notes Filed: 07/14/2024 13:44 Note Text: DATE OF PHOTOS: 07/14/2024 Body Part: Abdomen and Leg(s) Brian Garcia LPN July 14, 2024 1:43 PM [facility] 07-14-2024 History of Present illness Narrative DATE OF PHOTOS: 07/14/2024 Body Part: Abdomen and Leg(s) Brian Garcia LPN July 14, 2024 1:43 PM documented in this encounter [facility] 07-14-2024 History of Present illness Narrative Plastic Surgery Note CC: Consult for Panniculectomy HPI: Raul is a 43 year old female here today to discuss excess thigh skin and fat after massive weight loss. Patient is s/p Gastric bypass: laparoscopic. Date of bariatric surgery (more than 18 months): Yes Highest weight: 424 lbs Current weight: 178 lbs Weight loss of 100 lbs or more: Yes Use of pharmacotherapy for weight loss/management (Ozempic, Wegovy, Mounjaro, Phetermine): No Patients weight has been stable for 6 months. The patient does not complain of recurrent rashes, intertrigo with dermatitis occuring on the opposed surface of the skin that has not responded to conventional treatment for a period of 3 months. Treatments tried: n/a The patient does not have a history of infection. Excess thigh skin causes interference with activities of daily living: Yes Bathing: No Dressing: Yes Work: Yes Trouble with clothes fitting properly: Yes History of Abdominal Hernia: No History of Abdominal Surgery: Yes, gastric bypass History of Hypertrophic Scars/Keloids: No History of Diabetes: No History of Autoimmune Disorder: Yes, excema Hormonal Control or Hormone Replacement Therapy: No History of Bleeding/Clotting Disorders: No History of DVT/PE: No Anticoagulants/Antiplatelets: No NICOTINE USE: Yes vapes 6 x a day x 1 year Less than 0.5 pack a day for 2 years REVIEW OF SYSTEMS GENERAL: No weight loss, malaise or fevers NECK: Negative for lumps, goiter, pain and significant neck swelling RESPIRATORY: Negative for cough, hemoptysis, wheezing, COPD, dyspnea or shortness of breath CARDIOVASCULAR: Negative for chest pain, leg swelling, hypertension, CHF or palpitations GI: No nausea, vomiting, or diarrhea SKIN: Negative for lesions, rash, and itching Objective: LMP 07/10/2024 (Exact Date) PAST MEDICAL HISTORY Diagnosis Date Autoimmune disease (HCC) Degeneration of intervertebral disc, site unspecified Depression Migraines Mild intermittent asthma (HCC) Obesity Osteoarthritis of both knees Plantar fasciitis Psoriasis PAST SURGICAL HISTORY Procedure Laterality Date ADENOIDECTOMY PRIMARY <AGE 11 Adenoidectomy DELIVERY ONLY , low cervical GASTRIC BYPASS HX Pt reported 2021 LAPAROSCOPY SURG CHOLECYSTECTOMY 2013 PAST SURGICAL HISTORY OF Bilateral arthoscopy to ankles, scar tissue removal and tendon lengthening REMOVAL OF EXCESSIVE SKIN Stomach TONSILLECTOMY PRIMARY/SECONDARY <AGE 11 Tonsillectomy Current Outpatient Medications Medication Sig Dispense Refill pregabalin (LYRICA) 75 mg capsule Take 1 capsule by mouth once daily for 180 days. 30 capsule 5 valACYclovir (VALTREX) 500 mg tablet Take 4 tablets twice daily X 1 day. Then start one tablet by mouth daily thereafter. 38 tablet 4 Nebulizer Accessories kit 1 Units once daily as needed. 1 Each 0 sertraline (ZOLOFT) 50 mg tablet Take 1 tablet by mouth once daily. 30 tablet 5 calcium carbonate 400 mg (1,000 mg) chew Take 1,000 mg by mouth once daily. ferrous sulfate (IRON) 325 mg (65 mg iron) tablet Take 325 mg by mouth once daily. SUMAtriptan (IMITREX) 100 mg tablet Take 1 tablet (100 mg) by mouth as needed. START AT ONSET OF HEADACHE. MAY REPEAT DOSE AFTER 2 HOURS. 9 tablet 5 cyanocobalamin (VITAMIN B-12) 100 mcg tab Take 100 mcg by mouth once daily. ergocalciferol, vitamin D2, (VITAMIN D2 ORAL) Take by mouth. MULTIVITAMIN NO.43-IRON-FA ORAL Take by mouth. No current facility-administered medications for this visit. ALLERGIES Allergen Reactions Gabapentin Other: See Comments Prednisone Mental Status Change Lexapro [Escitalopr* Mental Status Change Severe moustapha [employer] Poll* Other: See Comments Topamax [Topiramate] Other: See Comments anxiety Physical Exam: A&Ox3, NAD Loose skin thighs bilateral A/P: Raul is a 43 year old female w/ history of significant weight loss following bariatric surgery, symptomatic abdominal panniculus. Patient is a candidate for a thighplasty, could reasonably improve the physical functional impairment. Discussed increased risk for infection, bleeding, wound healing complications, anesthesia complications with higher BMI. Encouraged patient to continue with weight loss for safety and best aesthetic outcome. The risks, benefits and options were discussed with the ptatient The risks included but not limited to pain, bleeding, infection, heavy scarring, damage to surrounding structures, fluid collections, asymmetry, and need for further procedures. Photographs have been taken and will be sent to the insurance company as necessary. Follow up with surgeon 6 weeks before scheduled surgery 30 Minutes total visit spent face to face with patient. Greater than 50% of the time was spent for counseling and coordination of care, discussing treatment options and recommendations. Bonny Henry APRN.CNP July 14, 2024 documented in this encounter [facility] 07-14-2024 Note HNO ID: [id number] Author: BONNY HENRY APRN.CNP Service: ? Author Type: Nurse Practitioner Type: Progress Notes Filed: 07/14/2024 16:15 Note Text: Plastic Surgery Note CC: Consult for Panniculectomy HPI: Raul is a 43 year old female here today to discuss excess thigh skin and fat after massive weight loss. Patient is s/p Gastric bypass: laparoscopic. Date of bariatric surgery (more than 18 months): Yes Highest weight: 424 lbs Current weight: 178 lbs Weight loss of 100 lbs or more: Yes Use of pharmacotherapy for weight loss/management (Ozempic, Wegovy, Mounjaro, Phetermine): No Patients weight has been stable for 6 months. The patient does not complain of recurrent rashes, intertrigo with dermatitis occuring on the opposed surface of the skin that has not responded to conventional treatment for a period of 3 months. Treatments tried: n/a The patient does not have a history of infection. Excess thigh skin causes interference with activities of daily living: Yes Bathing: No Dressing: Yes Work: Yes Trouble with clothes fitting properly: Yes History of Abdominal Hernia: No History of Abdominal Surgery: Yes, gastric bypass History of Hypertrophic Scars/Keloids: No History of Diabetes: No History of Autoimmune Disorder: Yes, excema Hormonal Control or Hormone Replacement Therapy: No History of Bleeding/Clotting Disorders: No History of DVT/PE: No Anticoagulants/Antiplatelets: No NICOTINE USE: Yes vapes 6 x a day x 1 year Less than 0.5 pack a day for 2 years REVIEW OF SYSTEMS GENERAL: No weight loss, malaise or fevers NECK: Negative for lumps, goiter, pain and significant neck swelling RESPIRATORY: Negative for cough, hemoptysis, wheezing, COPD, dyspnea or shortness of breath CARDIOVASCULAR: Negative for chest pain, leg swelling, hypertension, CHF or palpitations GI: No nausea, vomiting, or diarrhea SKIN: Negative for lesions, rash, and itching Objective: LMP 07/10/2024 (Exact Date) PAST MEDICAL HISTORY Diagnosis Date Autoimmune disease (HCC) Degeneration of intervertebral disc, site unspecified Depression Migraines Mild intermittent asthma (HCC) Obesity Osteoarthritis of both knees Plantar fasciitis Psoriasis PAST SURGICAL HISTORY Procedure Laterality Date ADENOIDECTOMY PRIMARY Adenoidectomy DELIVERY ONLY , low cervical GASTRIC BYPASS HX Pt reported 2021 LAPAROSCOPY SURG CHOLECYSTECTOMY 2013 PAST SURGICAL HISTORY OF Bilateral arthoscopy to ankles, scar tissue removal and tendon lengthening REMOVAL OF EXCESSIVE SKIN Stomach TONSILLECTOMY PRIMARY/SECONDARY Tonsillectomy Current Outpatient Medications Medication Sig Dispense Refill pregabalin (LYRICA) 75 mg capsule Take 1 capsule by mouth once daily for 180 days. 30 capsule 5 valACYclovir (VALTREX) 500 mg tablet Take 4 tablets twice daily X 1 day. Then start one tablet by mouth daily thereafter. 38 tablet 4 Nebulizer Accessories kit 1 Units once daily as needed. 1 Each 0 sertraline (ZOLOFT) 50 mg tablet Take 1 tablet by mouth once daily. 30 tablet 5 calcium carbonate 400 mg (1,000 mg) chew Take 1,000 mg by mouth once daily. ferrous sulfate (IRON) 325 mg (65 mg iron) tablet Take 325 mg by mouth once daily. SUMAtriptan (IMITREX) 100 mg tablet Take 1 tablet (100 mg) by mouth as needed. START AT ONSET OF HEADACHE. MAY REPEAT DOSE AFTER 2 HOURS. 9 tablet 5 cyanocobalamin (VITAMIN B-12) 100 mcg tab Take 100 mcg by mouth once daily. ergocalciferol, vitamin D2, (VITAMIN D2 ORAL) Take by mouth. MULTIVITAMIN NO.43-IRON-FA ORAL Take by mouth. No current facility-administered medications for this visit. ALLERGIES Allergen Reactions Gabapentin Other: See Comments Prednisone Mental Status Change Lexapro [Escitalopr* Mental Status Change Severe moustap[employer] Poll* Other: See Comments Topamax [Topiramate] Other: See Comments anxiety Physical Exam: AANDOx3, NAD Loose skin thighs bilateral A/P: Raul is a 43 year old female w/ history of significant weight loss following bariatric surgery, symptomatic abdominal panniculus. Patient is a candidate for a thighplasty, could reasonably improve the physical functional impairment. Discussed increased risk for infection, bleeding, wound healing complications, anesthesia complications with higher BMI. Encouraged patient to continue with weight loss for safety and best aesthetic outcome. The risks, benefits and options were discussed with the ptatient The risks included but not limited to pain, bleeding, infection, heavy scarring, damage to surrounding structures, fluid collections, asymmetry, and need for further procedures. Photographs have been taken and will be sent to the insurance company as necessary. Follow up with surgeon 6 weeks before scheduled surgery 30 Minutes total visit spent face to face with patient. Greater than 50% of the time was spent for (more content not included)... [facility] 07-12-2024 Instructions Makeda Smith APRN.SAUSAGE GRINDER - 07/12/2024 9:42 AM EDT Gardasil Gardasil is a vaccine to protect against Human Papillomavirus (HPV) types 6, 11, 16, 18, 31,33,45, 52, 58. These viruses cause cancer and precancerous lesions on the cervix (opening between vagina and uterus), in the vagina and on the vulva (skin around the outside of the vagina) as well as genital warts. The vaccine cannot cause these diseases and cannot treat them if already present. Gardasil works best if given before contact with HPV. Most people are exposed to HPV soon after starting sexual activity. The vaccine is recommended between the ages of 9 and 45. Gardasil does not protect against all strains of HPV. Women who receive the vaccine still need to have regular pelvic exams and cervical cancer screening with the pap smear. You should ask your doctor if Gardasil is right for you if you have a weakened immune system, a bleeding disorder, plan to become soon or have a current illness causing fever. Gardasil is not recommended for women. You should be sure your doctor is aware of any allergies you have and all medications and herbal supplements you take. Gardasil is given to those ages 9-14 in 2 doses at 0 and 8 months. In ages 15-45, three injections are given at 0,2,6 months. Common side effects include pain, redness, itching and swelling at the injection site, nausea, fever, dizziness and fainting. Rare but potentially serious reactions have been reported. These include allergic reaction, swollen glands, joint and muscle pain, weakness and Guillain-[place] syndrome. documented in this encounter [facility] 07-12-2024 Note HNO ID: [id number] Author: MAKEDA SMITH APRN.CNP Service: ? 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 Silke is a 43 year old who presents for an annual gynecologic exam with complaints, irregular bleeding. LMP: 07/10/2024 Menses: cycles every 28-30 days and 4-5 days of flow Sexually active: Yes Contraception: Tubal Ligation 2008 HPV vaccine: No Last pap smear: 08/08/2019, normal HPV:negative 08/08/2019 History of abnormal pap: Yes Colposcopy: Yes: Pt reported 2011 Last mammogram: 03/07/2022 normal 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 LMP: 07/10/2024 (Exact Date), Having periods Age at Menarche: 12 Age at First : Age at Menopause: Fiber Designer History Comments: Sexual Activity: Yes; Male Contraception: Tubal Ligation Menstrual Tracking History Flowsheet Row Office Visit from 07/12/2024 in OB/Gynecology Period Cycle (Days) 30 Period Duration (Days) 4 Menstrual Flow Moderate PAST MEDICAL HISTORY Diagnosis Date Autoimmune disease (HCC) Degeneration of intervertebral disc, site unspecified Depression Migraines Mild intermittent asthma (HCC) Obesity Osteoarthritis of both knees Plantar fasciitis Psoriasis PAST SURGICAL HISTORY Procedure Laterality Date ADENOIDECTOMY PRIMARY Adenoidectomy DELIVERY ONLY , low cervical GASTRIC BYPASS HX Pt reported 2021 LAPAROSCOPY SURG CHOLECYSTECTOMY 2013 PAST SURGICAL HISTORY OF Bilateral arthoscopy to ankles, scar tissue removal and tendon lengthening REMOVAL OF EXCESSIVE SKIN Stomach TONSILLECTOMY PRIMARY/SECONDARY Tonsillectomy FAMILY HISTORY Problem Relation Age of Onset Breast Cancer Mother Diabetes Maternal Grandmother Diabetes Maternal Uncle SOCIAL HISTORY Social History Tobacco Use Smoking status: Former Current packs/day: 0.00 Average packs/day: 0.3 packs/day for 24.0 years (6.0 ttl pk-yrs) Types: Cigarettes Start date: 03/19/1990 Quit date: 2014 Years since quittin.4 Smokeless tobacco: Never Tobacco comments: Quit in 2015, does vape daily Vaping Use Vaping status: current everyday user Start date: 08/10/2023 Substances: Nicotine Devices: Disposable Substance Use Topics Alcohol use: Not Currently Comment: rarely Drug use: No REVIEW OF SYSTEMS Abdomen: No abdominal pain, nausea, vomiting, diarrhea, or constipation. No bloating, early satiety, indigestion, or increased flatulence. Bladder: No dysuria, gross hematuria, urinary frequency, urinary urgency, or incontinence. Breast: No breast lumps, nipple d/c, overlying skin changes, redness or skin retraction. Allergies and current medication updated:Yes SENSITIVE EXAM: The sensitive examination was discussed with the Patient or Patient's Authorized Refrigeration Repair Supervisor. As applicable, any other physician, advance practice provider, medical student, or other health professional student that will be observing or involved in the sensitive examination for educational or training purposes was discussed with the Patient or Authorized Refrigeration Repair Supervisor. The Patient or Authorized Refrigeration Repair Supervisor has agreed to proceed with the sensitive examination. (Sensitive examination includes inspection and/or palpation of the breasts, pelvis, prostate and anorectal regions). EXAM: BP 118/64 Wt 181 lb 12.8 oz (82.5kg) LMP 07/10/2024 GENERAL: pleasant, female in no apparent distress HEENT: Normocephalic, atraumatic, mucus membranes moist, and no lesions DERMATOLOGY: Normal, without lesions, non-icteric, and non-hirsute BREAST: soft, non-tender, symmetric, no dominant mass, normal nipple-areolar complex, no lymphadenopathy, and no nipple discharge CHEST: Normal inspiratory effort ABDOMEN: soft, non-tender, and no masses PELVIC: external genitalia normal, normal Bartholin's glands, urethra, Bug Tussle's glands, no vulvar lesions, no cervical lesions, physiologic discharge present, normal appearing perineal body and perianal region BIMANUAL: uterus normal size, shape and consistency, no adnexal masses, and non-tender RECTOVAGINAL: deferred. NEURO: alert and oriented x3,exam grossly non-focal EXTREMITIES: normal ASSESSMENT/PLAN: 1. Encounter for gynecological examination (general) (routine) without abnormal findings - ICD9: V72.31, ICD10: Z01.419 (primary diagnosis) - Completed pap test and breast exam - Encouraged monthly BSE - Follow up for annual exam in one year. - PAP TEST - ARUN SCREENING W TONIO 2. Screening for cervical cancer - ICD9: V76.2, ICD10: Z12.4 - PAP TEST 3. Encounter for screening for human papillomavirus (HPV) - ICD9: V73.81, ICD10: Z11.51 - PAP TEST 4. Encounter for screening mammogram for breast cancer - ICD9: V76.12, ICD10: Z12.31 - ARUN SCREENING W TONIO 5. Menorrhagia with regular cycle - IC (more content not included)... 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 Silke is a 43 year old who presents for an annual gynecologic exam with complaints, irregular bleeding. LMP: 07/10/2024 Menses: cycles every 28-30 days and 4-5 days of flow Sexually active: Yes Contraception: Tubal Ligation 2008 HPV vaccine: No Last pap smear: 08/08/2019, normal HPV:negative 08/08/2019 History of abnormal pap: Yes Colposcopy: Yes: Pt reported 2011 Last mammogram: 03/07/2022 normal 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 LMP: 07/10/2024 (Exact Date), Having periods Age at Menarche: 12 Age at First : Age at Menopause: Fiber Designer History Comments: Sexual Activity: Yes; Male Contraception: Tubal Ligation Menstrual Tracking History Flowsheet Row Office Visit from 07/12/2024 in OB/Gynecology Period Cycle (Days) 30 Period Duration (Days) 4 Menstrual Flow Moderate PAST MEDICAL HISTORY Diagnosis Date Autoimmune disease (HCC) Degeneration of intervertebral disc, site unspecified Depression Migraines Mild intermittent asthma (HCC) Obesity Osteoarthritis of both knees Plantar fasciitis Psoriasis PAST SURGICAL HISTORY Procedure Laterality Date ADENOIDECTOMY PRIMARY <AGE 11 Adenoidectomy DELIVERY ONLY , low cervical GASTRIC BYPASS HX Pt reported 2021 LAPAROSCOPY SURG CHOLECYSTECTOMY 2013 PAST SURGICAL HISTORY OF Bilateral arthoscopy to ankles, scar tissue removal and tendon lengthening REMOVAL OF EXCESSIVE SKIN Stomach TONSILLECTOMY PRIMARY/SECONDARY <AGE 11 Tonsillectomy FAMILY HISTORY Problem Relation Age of Onset Breast Cancer Mother Diabetes Maternal Grandmother Diabetes Maternal Uncle SOCIAL HISTORY Social History Tobacco Use Smoking status: Former Current packs/day: 0.00 Average packs/day: 0.3 packs/day for 24.0 years (6.0 ttl pk-yrs) Types: Cigarettes Start date: 03/19/1990 Quit date: 2014 Years since quittin.4 Smokeless tobacco: Never Tobacco comments: Quit in 2014, does vape daily Vaping Use Vaping status: current everyday user Start date: 08/10/2023 Substances: Nicotine Devices: Disposable Substance Use Topics Alcohol use: Not Currently Comment: rarely Drug use: No REVIEW OF SYSTEMS Abdomen: No abdominal pain, nausea, vomiting, diarrhea, or constipation. No bloating, early satiety, indigestion, or increased flatulence. Bladder: No dysuria, gross hematuria, urinary frequency, urinary urgency, or incontinence. Breast: No breast lumps, nipple d/c, overlying skin changes, redness or skin retraction. Allergies and current medication updated:Yes SENSITIVE EXAM: The sensitive examination was discussed with the Patient or Patient's Authorized Refrigeration Repair Supervisor. As applicable, any other physician, advance practice provider, medical student, or other health professional student that will be observing or involved in the sensitive examination for educational or training purposes was discussed with the Patient or Authorized Refrigeration Repair Supervisor. The Patient or Authorized Refrigeration Repair Supervisor has agreed to proceed with the sensitive examination. (Sensitive examination includes inspection and/or palpation of the breasts, pelvis, prostate and anorectal regions). EXAM: BP 118/64 Wt 181 lb 12.8 oz (82.5kg) LMP 07/10/2024 GENERAL: pleasant, female in no apparent distress HEENT: Normocephalic, atraumatic, mucus membranes moist, and no lesions DERMATOLOGY: Normal, without lesions, non-icteric, and non-hirsute BREAST: soft, non-tender, symmetric, no dominant mass, normal nipple-areolar complex, no lymphadenopathy, and no nipple discharge CHEST: Normal inspiratory effort ABDOMEN: soft, non-tender, and no masses PELVIC: external genitalia normal, normal Bartholin's glands, urethra, Bug Tussle's glands, no vulvar lesions, no cervical lesions, physiologic discharge present, normal appearing perineal body and perianal region BIMANUAL: uterus normal size, shape and consistency, no adnexal masses, and non-tender RECTOVAGINAL: deferred. NEURO: alert and oriented x3,exam grossly non-focal EXTREMITIES: normal ASSESSMENT/PLAN: 1. Encounter for gynecological examination (general) (routine) without abnormal findings - ICD9: V72.31, ICD10: Z01.419 (primary diagnosis) - Completed pap test and breast exam - Encouraged monthly BSE - Follow up for annual exam in one year. - PAP TEST - ARUN SCREENING W TONIO 2. Screening for cervical cancer - ICD9: V76.2, ICD10: Z12.4 - PAP TEST 3. Encounter for screening for human papillomavirus (HPV) - ICD9: V73.81, ICD10: Z11.51 - PAP TEST 4. Encounter for screening mammogram for breast cancer - ICD9: V76.12, ICD10: Z12.31 - ARUN SCREENING W TONIO 5. Menorrhagia with regular cycle - ICD9: 626.2, ICD10: N92.0 - PELVIC US WHI 6. Need for prophylactic vaccination/inoculation against viral disease - ICD9: V04.89, ICD10: Z23 - THER/PROPH/DIAG INJ, SC/IM - HPV VACCINE, 9-VALENT (GARDASIL 9) - HPV VACCINE, 9-VALENT (GARDASIL 9) - HPV VACCINE, 9-VALENT (GARDASIL 9) Makeda Smith APRN.CNP Patient identified by name and date of . Raul Chong is here for her HPV Gardasil vaccination, injection # one of the series. Patient ?No Gardasil injection was given without incident. See immunizations for details of immunizations administered today. VIS sheet provided: Yes Patient advised to follow up in 2 months from the 1st injection Provider Dr. Miryam Henderson was present in office at time of injection. Makeda Smith APRN.CNP documented in this encounter [facility] 06-29-2024 Telephone encounter Note Patient requesting return call to advise on insurance auth for surgery. See below. Please return call to [phone] [facility] 06-21-2024 Telephone encounter Note Patient calling to see if prior authorization was sent to insurance company for her surgery with Dr. Sterling. She can be reached at [phone]. [facility] 06-09-2024 Instructions Bonny Henry APRN.FATEMEH - 06/09/2024 2:48 PM EDT -finish Augmentin -gentamicin ointment to wound three times daily and cover with gauze for 2 more weeks -activity restrictions discussed, okay to resume activity/exercise slowly, easily progress -okay for water submersion (pools/ baths/ hot tub) when there are no open areas or scabs along incision and you are fully healed -okay for silicone sheets/scar massage if indicated -okay for skin/scar moisturizer, rec Aquaphor/Eucerin/Cerave -okay to sleep on your sides If experiencing wound complications or have any questions or concerns during business hours call [phone] or after hours (after 5 pm or on the weekend) call [phone] and ask for the plastic surgery resident / fellow carbon paper coating supervisor for further instructions. If you have increasing swelling or bruising, particularly one side greater than the other. If swelling and redness persists after a few days. If you have increased redness along the incision. If you have severe or increased pain not relieved by medication. If you have an oral temperature of 100.4 degrees or higher. If you have any yellow or greenish drainage from the incisions or notice a foul smell. If you have bleeding from the incisions that is difficult to control with light pressure If you have new chest pain, shortness of breathe or difficulty breathing documented in this encounter [facility] 06-09-2024 History of Present illness Narrative Plastic Surgery Post Op Note CC: post op HPI: Raul Chong is a 43 year old female who presents s/p Date of Surgery: 03/14/24 Surgery: Panniculectomy Time Postop: 12 weeks Pt presents for post-op visit. She reports she is feeling better. She was started on bactrim on 06/01/24. She reports a partial thickness opening on the left abdominal incision. Pt reports the wound has closed up. Denies fever, chills. No concerns Surgical pathology reviewed Component FINAL DIAGNOSIS Soft tissue, abdominal pannus, resection: - Skin with abundant subcutaneous adipose tissue. PAST MEDICAL HISTORY Diagnosis Date Autoimmune disease (HCC) Degeneration of intervertebral disc, site unspecified Depression Migraines Mild intermittent asthma (HCC) Obesity Osteoarthritis of both knees Plantar fasciitis Psoriasis PAST SURGICAL HISTORY Procedure Laterality Date ADENOIDECTOMY PRIMARY <AGE 11 Adenoidectomy DELIVERY ONLY , low cervical LAPAROSCOPY SURG CHOLECYSTECTOMY 2013 PAST SURGICAL HISTORY OF Bilateral arthoscopy to ankles, scar tissue removal and tendon lengthening TONSILLECTOMY PRIMARY/SECONDARY <AGE 11 Tonsillectomy Current Outpatient Medications on File Prior to Visit Medication Sig traMADol (ULTRAM) 50 mg tablet Take 1 tablet by mouth two times a day as needed for pain for up to 7 days. acetaminophen (TYLENOL) 500 mg tablet Take 2 tablets by mouth every 6 hours for 5 days, THEN 1-2 tablets every 6 hours as needed for pain for up to 10 days. senna (SENOKOT) 8.6 mg tab Take 1 tablet by mouth two times a day as needed for constipation for up to 15 days. Nebulizer Accessories kit 1 Units once daily as needed. albuterol (PROVENTIL) 2.5 mg /3 mL (0.083 %) nebulizer solution Use 3 mL via nebulizer every 4 hours as needed for wheezing/shortness of breath. Use over 5-15minutes. sertraline (ZOLOFT) 50 mg tablet Take 1 tablet by mouth once daily. hydrOXYzine HCl (ATARAX) 25 mg tablet Take 1 tablet by mouth three times a day as needed for itching/rash. pregabalin (LYRICA) 75 mg capsule Take 1 capsule by mouth once daily for 180 days. calcium carbonate 400 mg (1,000 mg) chew Take 1,000 mg by mouth once daily. ferrous sulfate (IRON) 325 mg (65 mg iron) tablet Take 325 mg by mouth once daily. valACYclovir (VALTREX) 500 mg tablet Take 4 tablets twice daily X 1 day. Then start one tablet by mouth daily thereafter. SUMAtriptan (IMITREX) 100 mg tablet Take 1 tablet (100 mg) by mouth as needed. START AT ONSET OF HEADACHE. MAY REPEAT DOSE AFTER 2 HOURS. cyanocobalamin (VITAMIN B-12) 100 mcg tab Take 100 mcg by mouth once daily. ergocalciferol, vitamin D2, (VITAMIN D2 ORAL) Take by mouth. MULTIVITAMIN NO.43-IRON-FA ORAL Take by mouth. albuterol (PROVENTIL) 2.5 mg /3 mL (0.083 %) nebulizer solution Use 3 mL via nebulizer every 4 hours as needed for wheezing/shortness of breath. No current facility-administered medications on file prior to visit. LMP 05/15/2024 (Approximate) PE Alert and oriented in NAD on room air abdominal incisions c/d/I, well-approximated, healing Left lateral abdominal partial thickness wound healed ASSESSMENT/PLAN: Postoperative State Doing well -finish Augmentin -gentamicin ointment to wound three times daily and cover with gauze for 2 more weeks -activity restrictions discussed, okay to resume activity/exercise slowly, easily progress -okay for water submersion (pools/ baths/ hot tub) when there are no open areas or scabs along incision and you are fully healed -okay for silicone sheets/scar massage if indicated -okay for skin/scar moisturizer, rec Aquaphor/Eucerin/Cerave -okay to sleep on your sides If experiencing wound complications or have any questions or concerns during business hours call [phone] or after hours (after 5 pm or on the weekend) call [phone] and ask for the plastic surgery resident / fellow carbon paper coating supervisor for further instructions. If you have increasing swelling or bruising, particularly one side greater than the other. If swelling and redness persists after a few days. If you have increased redness along the incision. If you have severe or increased pain not relieved by medication. If you have an oral temperature of 100.4 degrees or higher. If you have any yellow or greenish drainage from the incisions or notice a foul smell. If you have bleeding from the incisions that is difficult to control with light pressure If you have new chest pain, shortness of breathe or difficulty breathing Return to clinic in 3 months Bonny Henry APRN.FATEMEH June 09, 2024 documented in this encounter [facility] 06-09-2024 Note HNO ID: [id number] Author: BONNY HENRY APRN.FATEMEH Service: ? Author Type: Nurse Practitioner Type: Progress Notes Filed: 06/09/2024 14:48 Note Text: Plastic Surgery Post Op Note CC: post op HPI: Raul Chong is a 43 year old female who presents s/p Date of Surgery: 03/14/24 Surgery: Panniculectomy Time Postop: 12 weeks Pt presents for post-op visit. She reports she is feeling better. She was started on bactrim on 06/01/24. She reports a partial thickness opening on the left abdominal incision. Pt reports the wound has closed up. Denies fever, chills. No concerns Surgical pathology reviewed Component FINAL DIAGNOSIS Soft tissue, abdominal pannus, resection: - Skin with abundant subcutaneous adipose tissue. PAST MEDICAL HISTORY Diagnosis Date Autoimmune disease (HCC) Degeneration of intervertebral disc, site unspecified Depression Migraines Mild intermittent asthma (HCC) Obesity Osteoarthritis of both knees Plantar fasciitis Psoriasis PAST SURGICAL HISTORY Procedure Laterality Date ADENOIDECTOMY PRIMARY Adenoidectomy DELIVERY ONLY , low cervical LAPAROSCOPY SURG CHOLECYSTECTOMY 2013 PAST SURGICAL HISTORY OF Bilateral arthoscopy to ankles, scar tissue removal and tendon lengthening TONSILLECTOMY PRIMARY/SECONDARY Tonsillectomy Current Outpatient Medications on File Prior to Visit Medication Sig traMADol (ULTRAM) 50 mg tablet Take 1 tablet by mouth two times a day as needed for pain for up to 7 days. acetaminophen (TYLENOL) 500 mg tablet Take 2 tablets by mouth every 6 hours for 5 days, THEN 1-2 tablets every 6 hours as needed for pain for up to 10 days. senna (SENOKOT) 8.6 mg tab Take 1 tablet by mouth two times a day as needed for constipation for up to 15 days. Nebulizer Accessories kit 1 Units once daily as needed. albuterol (PROVENTIL) 2.5 mg /3 mL (0.083 %) nebulizer solution Use 3 mL via nebulizer every 4 hours as needed for wheezing/shortness of breath. Use over 5-15minutes. sertraline (ZOLOFT) 50 mg tablet Take 1 tablet by mouth once daily. hydrOXYzine HCl (ATARAX) 25 mg tablet Take 1 tablet by mouth three times a day as needed for itching/rash. pregabalin (LYRICA) 75 mg capsule Take 1 capsule by mouth once daily for 180 days. calcium carbonate 400 mg (1,000 mg) chew Take 1,000 mg by mouth once daily. ferrous sulfate (IRON) 325 mg (65 mg iron) tablet Take 325 mg by mouth once daily. valACYclovir (VALTREX) 500 mg tablet Take 4 tablets twice daily X 1 day. Then start one tablet by mouth daily thereafter. SUMAtriptan (IMITREX) 100 mg tablet Take 1 tablet (100 mg) by mouth as needed. START AT ONSET OF HEADACHE. MAY REPEAT DOSE AFTER 2 HOURS. cyanocobalamin (VITAMIN B-12) 100 mcg tab Take 100 mcg by mouth once daily. ergocalciferol, vitamin D2, (VITAMIN D2 ORAL) Take by mouth. MULTIVITAMIN NO.43-IRON-FA ORAL Take by mouth. albuterol (PROVENTIL) 2.5 mg /3 mL (0.083 %) nebulizer solution Use 3 mL via nebulizer every 4 hours as needed for wheezing/shortness of breath. No current facility-administered medications on file prior to visit. LMP 05/15/2024 (Approximate) PE Alert and oriented in NAD on room air abdominal incisions c/d/I, well-approximated, healing Left lateral abdominal partial thickness wound healed ASSESSMENT/PLAN: Postoperative State Doing well -finish Augmentin -gentamicin ointment to wound three times daily and cover with gauze for 2 more weeks -activity restrictions discussed, okay to resume activity/exercise slowly, easily progress -okay for water submersion (pools/ baths/ hot tub) when there are no open areas or scabs along incision and you are fully healed -okay for silicone sheets/scar massage if indicated -okay for skin/scar moisturizer, rec Aquaphor/Eucerin/Cerave -okay to sleep on your sides If experiencing wound complications or have any questions or concerns during business hours call [phone] or after hours (after 5 pm or on the weekend) call [phone] and ask for the plastic surgery resident / fellow carbon paper coating supervisor for further instructions. If you have increasing swelling or bruising, particularly one side greater than the other. If swelling and redness persists after a few days. If you have increased redness along the incision. If you have severe or increased pain not relieved by medication. If you have an oral temperature of 100.4 degrees or higher. If you have any yellow or greenish drainage from the incisions or notice a foul smell. If you have bleeding from the incisions that is difficult to control with light pressure If you have new chest pain, shortness of breathe or difficulty breathing Return to clinic in 3 months Bonny Henry APRN.SAUSAGE GRINDER June 09, 2024 [facility] 06-03-2024 Note HNO ID: [id number] Author: BONNY HENRY APRN.SAUSAGE GRINDER Service: ? Author Type: Nurse Practitioner Type: Progress Notes Filed: 06/03/2024 13:35 Note Text: Plastic Surgery Post Op Note CC: post op HPI: Raul Chong is a 43 year old female who presents s/p Date of Surgery: 03/14/24 Surgery: Panniculectomy Time Postop: 11 weeks Pt presents for post-op visit. She reports she developed a fever of 100. 7 lasting 3 days. She was started on bactrim on 06/01/24. She reports a partial thickness opening on the left abdominal incision. No concerns Surgical pathology reviewed Component FINAL DIAGNOSIS Soft tissue, abdominal pannus, resection: - Skin with abundant subcutaneous adipose tissue. PAST MEDICAL HISTORY Diagnosis Date Autoimmune disease (HCC) Degeneration of intervertebral disc, site unspecified Depression Migraines Mild intermittent asthma Obesity Osteoarthritis of both knees Plantar fasciitis Psoriasis PAST SURGICAL HISTORY Procedure Laterality Date ADENOIDECTOMY PRIMARY Adenoidectomy DELIVERY ONLY , low cervical LAPAROSCOPY SURG CHOLECYSTECTOMY 2013 PAST SURGICAL HISTORY OF Bilateral arthoscopy to ankles, scar tissue removal and tendon lengthening TONSILLECTOMY PRIMARY/SECONDARY Tonsillectomy Current Outpatient Medications on File Prior to Visit Medication Sig traMADol (ULTRAM) 50 mg tablet Take 1 tablet by mouth two times a day as needed for pain for up to 7 days. acetaminophen (TYLENOL) 500 mg tablet Take 2 tablets by mouth every 6 hours for 5 days, THEN 1-2 tablets every 6 hours as needed for pain for up to 10 days. senna (SENOKOT) 8.6 mg tab Take 1 tablet by mouth two times a day as needed for constipation for up to 15 days. Nebulizer Accessories kit 1 Units once daily as needed. albuterol (PROVENTIL) 2.5 mg /3 mL (0.083 %) nebulizer solution Use 3 mL via nebulizer every 4 hours as needed for wheezing/shortness of breath. Use over 5-15minutes. sertraline (ZOLOFT) 50 mg tablet Take 1 tablet by mouth once daily. hydrOXYzine HCl (ATARAX) 25 mg tablet Take 1 tablet by mouth three times a day as needed for itching/rash. pregabalin (LYRICA) 75 mg capsule Take 1 capsule by mouth once daily for 180 days. calcium carbonate 400 mg (1,000 mg) chew Take 1,000 mg by mouth once daily. ferrous sulfate (IRON) 325 mg (65 mg iron) tablet Take 325 mg by mouth once daily. valACYclovir (VALTREX) 500 mg tablet Take 4 tablets twice daily X 1 day. Then start one tablet by mouth daily thereafter. SUMAtriptan (IMITREX) 100 mg tablet Take 1 tablet (100 mg) by mouth as needed. START AT ONSET OF HEADACHE. MAY REPEAT DOSE AFTER 2 HOURS. cyanocobalamin (VITAMIN B-12) 100 mcg tab Take 100 mcg by mouth once daily. ergocalciferol, vitamin D2, (VITAMIN D2 ORAL) Take by mouth. MULTIVITAMIN NO.43-IRON-FA ORAL Take by mouth. albuterol (PROVENTIL) 2.5 mg /3 mL (0.083 %) nebulizer solution Use 3 mL via nebulizer every 4 hours as needed for wheezing/shortness of breath. No current facility-administered medications on file prior to visit. LMP 02/23/2024 (Approximate) PE Alert and oriented in NAD on room air abdominal incisions c/d/I, well-approximated, healing Left lateral abdominal incision with 0.5 x 0.2 partial thickness wound with yellow drainage noted ASSESSMENT/PLAN: Postoperative State Doing well -stop bactrim -Augmentin twice daily -gentamicin ointment to wound three times daily and cover with gauze -activity restrictions discussed, okay to resume activity/exercise slowly, easily progress -okay for water submersion (pools/ baths/ hot tub) when there are no open areas or scabs along incision and you are fully healed -okay for silicone sheets/scar massage if indicated -okay for skin/scar moisturizer, rec Aquaphor/Eucerin/Cerave -okay to sleep on your sides If experiencing wound complications or have any questions or concerns during business hours call [phone] or after hours (after 5 pm or on the weekend) call [phone] and ask for the plastic surgery resident / fellow carbon paper coating supervisor for further instructions. If you have increasing swelling or bruising, particularly one side greater than the other. If swelling and redness persists after a few days. If you have increased redness along the incision. If you have severe or increased pain not relieved by medication. If you have an oral temperature of 100.4 degrees or higher. If you have any yellow or greenish drainage from the incisions or notice a foul smell. If you have bleeding from the incisions that is difficult to control with light pressure If you have new chest pain, shortness of breathe or difficulty breathing Return to clinic in 1 week Bonny Henry APRN.SAUSAGE GRINDER June 03, 2024 [facility] 06-02-2024 Discharge summary [facility] 06-02-2024 Discharge summary Note Date/Time June 02, 2024 4:27pm [facility] Medical Records Department [address] [place] [address] Emergency Department Summary 06/02/24 MR#: [id number] Acct: [id number] Name: RAUL FLEMING DIANNA Rep #:[id number] : 1980 43 From: Carlos Dockery MD PCP: Dr. Maira Escamilla MD Status:REG E R Location: ED HPI History of Present Illness Chief Complaint: Wound Narrative Narrative: 43-year-old female states that she had plastic surgery on her pannus in March, approximately 3 months ago. This was performed by Dr. Sterling with the [facility] out of [place]. Since then, she has had areas of wound dehiscence and abscess development and spitting stitches. She has been on antibiotics intermittently. Most recently, an area on the left side of her abdomen that had dehisced previously started opening up a little more and draining yellow fluid. She had her plastic surgeon/nurse practitioner call her in antibiotics and started Bactrim, but today she spiked a fever as high as 101 ?F. She felt shaky as well. She called them and she was told to come to the emergency department for evaluation. She has an appointment with them tomorrow however. She was concerned because while she has been dealing with wound abscesses and infections, she spiked a fever today. [facility] Medical History (Updated 06/02/24 @ 16:09 by Carlos Dockery MD) Migraine GERD (gastroesophageal reflux disease) Arthritis GERD (gastroesophageal reflux disease) Osteoarthritis Home Medications ?Medication ?Instructions ?Recorded ?Last Taken ?Type albuterol sulfate 2.5 mg/3 mL 2.5 mg inhalation Q4HWA. RT PRN Sob 12/04/18 Unknown History (0.083 %) solution for nebulization &/Or Wheezing pregabalin 75 mg capsule 75 mg PO DAILY nerves/pain 1 02/13/19 08/20/23 History cholecalciferol (vitamin D3) 50 50 mcg PO DAILY supple ment 08/20/23 08/20/23 History mcg (2,000 unit) tablet (D3 DOTS) multivitamin with iron 1 tab PO DAILY supplement 08/20/23 History valacyclovir 500 mg tablet 500 mg PO DAILY HSV 4 08/19/23 History vitamin B complex (Complex B-100 1 tab PO DAILY supple ment 08/20/23 08/20/23 History tablet,extended release) sumatriptan succinate 100 mg tablet 100 mg PO .COMPLEX 09/02/23 Unknown History alprazolam 0.5 mg tablet (Xanax) 0.5 mg PO QDAY Unknown History sertraline 50 mg tablet mg PO DAILY 03/08/24 Unknown History Allergy/AdvReac Type Severity Reaction Status Date / Time gabapentin (From Neurontin) Allergy Swelling Verified 06/02/24 14:40 topiramate (From Topamax) AdvReac Mild TINGLING Verified 06/02/24 14:40 prednisone AdvReac Other Verified 06/02/24 14:40 Family History Mother Breast cancer Father Arthritis Surgical History (Updated 06/02/24 @ 15:41 by Anny Coburn) Status post panniculectomy H/O section History of tonsillectomy History of ankle surgery History of foot surgery History of Jacob-en-Y gastric bypass Hx of cholecystectomy History of bilateral tubal ligation Social History household members: significant other Smoking Status: Current every day smoker tobacco type: e-cigarettes substance use type: does not use ROS ROS ED ROS Narrative Positive fever of 101 ?F today. Feeling shaky. Positive purulent drainage fromleft side of wound with previous dehiscence. No nausea or vomiting. No exacerbating or alleviating factors. EXAM Physical Exam Narrative Exam Narrative: Afebrile. Vital signs noted. Nontoxic-appearing. Cardiovascular examination reveals a regular rate and rhythm. Lungs are clear to auscultation bilaterally. Abdomen is soft, nontender, with normoactive bowel sounds. The incision appears clean, dry, and intact without surrounding erythema or fluctuance. There is an area of wound dehiscence on the left side of the surgical wound withSilvadene cream contained within it and minimal purulent drainage. Const Vital Signs: 06/02/24 14:39 06/02/24 15:40 Temperature 98.7 F 98.5 F Temperature Source Oral Oral Pulse Rate 71 88 Respiratory Rate 16 15 Blood Pressure 111/68 105/69 Blood Pressure Mean 82 81 Pulse Ox 97 97 Oxygen Delivery Method Room Air Room Air MDM MDM MDM Narrative Medical decision making narrative: Differential diagnosis includes but not limited to localized wound infection versus inflammatory changes of wound versus sepsis. I have very low suspicion for sepsis because she is not tachycardic nor is she febrile and she has normal blood pressure. I will obtain a CBC, BMP, and lactic acid. I do not feel imaging is indicated and in discussion with the patient, it is not felt that sherequires CT of the abdomen pelvis to look for a deeper wound. In discussion with the patient, she stated that her fever was as high as 101 ?F but she did not take an antipyretic. She is afebrile here and has remained afebrile. I reviewed her laboratory work and she has normal white count of 4.6 with hemoglobin 11.7, when compared to prior labs she has been intermittently anemic. Platelet count normal at 224. Electrolyte panel is significant for a low creatinine of 0.65 but normal sodium and potassium and normal chloride. Glucose 85. As long as her lactic acid is normal, her blood cultures are currently pending, I feel that she can be discharged to follow-up with her plastic surgeon tomorrow and continue the antibiotics that they wrote for her. Return instructions were reviewed. Her lactic acid did return and it is normal. Disposition is discharged home in stable condition. History & Record Review Discussion w/independent historian: Patient Additional record(s) reviewed:: Prior labs Lab Data Attestation: I reviewed the patient's lab results. Labs: Laboratory Results - last 24 hr 06/02/24 15:19 WBC 4.6 RBC 3.96 L Hgb 11.7 L Hct 35.2 L MCV 88.9 MCH 29.5 MCHC 33.2 RDW Std Deviation 41.1 RDW Coeff of Gee 12.5 Plt Count 224 MPV 9.9 Sodium 137 Potassium 3.9 Chloride 105 Carbon Dioxide 23.8 Anion Gap 9 BUN 12 Creatinine 0.65 L Estim Creat Clear Calc 125.10 Est GFR (MDRD) Non-Af 111 BUN/Creatinine Ratio 17.7 Glucose 85 Lactic Acid < 1.0 Calcium 8.7 Total Bilirubin 0.23 AST 28 ALT 28 Alkaline Phosphatase 81 Total Protein 6.4 Albumin 3.9 Globulin 2.4 Albumin/Globulin Ratio 1.6 Discharge Plan Triage Chief Complaint: Wound ED Provider: Carlos Dockery Dx/Rx/DC Orders Clinical Impression: Superficial postoperative wound infection, Shakiness Instructions: ED Wound Infection after surgery Prescriptions: No Action sertraline 50 mg tablet PO DAILY alprazolam [Xanax] 0.5 mg tablet 0.5 mg PO QDAY albuterol sulfate 2.5 MG/3 ML solution for nebulization 2.5 mg inhalation Q4HWA.RT PRN (Reason: Sob &/Or Wheezing) Patient Comments: only when pt has bronchitis pregabalin 75 MG capsule 75 mg PO DAILY sumatriptan succinate 100 mg tablet 100 mg PO .COMPLEX Rx Instructions: 100 mg orally TAKE 1 TABLET BY MOUTH NEEDED AT ONSET OF HEADACHE. MAY REPEAT DOSE AFTER 2 HOURS; valacyclovir 500 mg tablet 500 mg PO DAILY multivitamin with iron 1 tab PO DAILY Complex B-100 Tablet Extended Release 1 tab PO DAILY cholecalciferol (vitamin D3) [D3 DOTS] 50 mcg (2,000 unit) tablet 50 mcg PO DAILY Primary Care Provider: Maira Escamilla Referrals: Maira Escamilla MD [Primary Care Provider] - Activity Restrictions/Additional Instructions: Follow-up with your plastic surgeon tomorrow as scheduled. Continue the Bactrimthat was written for you by their office. Return to the emergency department with sustained high fever, new or worsening symptoms. Print Language: Swedish Disposition Disposition: Home, Self Care What to do if you have Problems For any increased pain, shortness of breath, bleeding, nausea or vomiting, chestpain, or any unexpected problems, contact your Primary Care Provider. Call [facility] ([phone]) or report to the closest Emergency Room. Call 911 if necessary. 06/02/241626 <Electronically signed by Carlos Dockery MD> Cosigner Signature (if applicable): CC: Dr. Maira Escamilla MD ~ Signed [facility] Work Phone: [phone] NoteHNO ID: [id number] Author: BONNY HENRY APRN.FATEMEH Service: ? Author Type: Nurse Practitioner Type: Progress Notes Filed: 05/27/2024 12:33 Note Text: Pt's call returned for concerns of an opening in her abdominal incision. She is s/p panniculectomy, post-op 10 weeks. The pt noted some itching, redness, and small amount of yellow drainage from the left lateral abdominal incision. She had voiced concerns yesterday and was told to put silvadene cream on the area twice daily. She feels it is worse today with increased drainage. She denies fever, chills, or pain at the site. She was instructed to start doxycycline 100 mg twice daily for 10 days. She has an appointment to see this practitioner in 2 weeks. She was instructed to MyChart message if she developed worsening symptoms like fever, chills, or increased drainage from the site. [facility] Henry APRN.CNP [facility] History of Present illness Narrative* Bonny Henry APRN.CNP - 05/27/2024 12:27 PM EDT Pt's call returned for concerns of an opening in her abdominal incision. She is s/p panniculectomy,post-op 10 weeks. The pt noted some itching, redness, and small amount of yellow drainage from the left lateral abdominal incision. She had voiced concerns yesterday and was told to put silvadene cream on the area twice daily. She feels it is worse today with increased drainage. She denies fever, chills, or pain at the site. She was instructed to start doxycycline 100 mg twice daily for 10 days. She has an appointment to see this practitioner in 2 weeks. She was instructed to MyChart message if she developed worsening symptoms like fever, chills, or increased drainage from the site. Bonny Henry APRN.FATEMEH May 27, 2024 [facility] Telephone encounter Note * Telephone Encounter - Alexia Brian RN - 05/26/2024 10:31 AM EDT Responded to patient photos via [employer] [facility]04-17-2025 Miscellaneous Notes* Telephone Encounter - Alexia Brian RN - 05/26/2024 10:31 AM EDT Responded to patient photos via [employer] * Telephone Encounter - Tomeka Vidal - 05/26/2024 10:11 AM EDT Patient states abscess is back in the same spot has yellow discharge red and swollen please advise.Advised to send pictures documented in [facility] encounterThe [facility]04-[facility] Telephone encounter Note * Telephone Encounter - Tomeka Vidal - 05/26/2024 10:11 AM EDT Patient states abscess is back in the same spot has yellow discharge red and swollen please advise.Advised to send pictures [facility]04-03-2025 Instructions* Patient Instructions* Bonny Henry APRN.SAUSAGE GRINDER - 05/12/2024 11:49 AM EDT -RTW letter given to pt -okay to return to work part-time for the next month -Shower regularly to keep the incisions clean and inspect for signs of infection (due to decreased sensation) -Okay to take a bath -Walking is encouraged, this helps to reduce swelling and lowers the chance of blood clots. If you were prescribed anticoagulation post operatively, please complete course as instructed -Activity restrictions reviewed with patient. No heavy lifting/pushing/pulling greater than 10 lbs for 4 weeks after surgery. Do not perform hydrogenation operator such as laundry and vacuuming. Do not perform yard work. no core exercises for 6-8 weeks following abdominal surgery -Continue, compression garment- okay for spanx type garment -Okay for driving if not taking any narcotic pain medication and you feel safe to maneuver a car -okay to sleep on your back and lie flat, do not sleep on the surgical side 3-4 weeks after recent procedure -Okay for tylenol alternating with ibuprofen for pain control (do not exceed 4 g tylenol in a 24 hour period, okay for ibuprofen 600-800 mg every 8 hours as needed for pain) -scar massage-with lotion of choice, massage incision for 5 minutes, 5 times a day for 5 months. -you may also use scar cream or tapes with silicone ingredient Encouraged [facility] for all [facility]ent questions or concerns. If experiencing wound complications or have any questions or concerns during business hours call [phone] or after hours (after 5 pm or on the weekend) call [phone] and ask for the plastic surgery resident / fellow carbon paper coating supervisor for further instructions. If you have increasing swelling or bruising, particularly one side greater than the other. If swelling and redness persists after a few days. If you have increased redness along the incision. If you have severe or increased pain not relieved by medication. If you have an oral temperature of 100.4 degrees or higher. If you have any yellow or greenish drainage from the incisions or notice a foul smell. If you have bleeding from the incisions that is difficult to control with light pressure If you have new chest pain, shortness of breathe or difficulty breathing documented in this encounterThe [facility]04-[facility] History of Present illness Narrative* Bonny Henry APRN.FATEMEH - 05/12/2024 10:00 AM EDT Plastic Surgery Post Op Note CC: post op HPI: Raul Chong is a 43 year old female who presents s/p Date of Surgery: 03/14/24 Surgery: Panniculectomy Time Postop: 8 weeks Pt presents for post-op visit. 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 She is not taking any pain medications. She denies drainage from her incision, fever, chills. She reports spitting sutures on abdomen. No concerns Surgical pathology reviewed Component FINAL DIAGNOSIS Soft tissue, abdominal pannus, resection: - Skin with abundant subcutaneous adipose tissue. PAST MEDICAL HISTORY Diagnosis Date Autoimmune disease [...] tendon lengthening TONSILLECTOMY PRIMARY/SECONDARY <AGE 11 Tonsillectomy Current Outpatient Medications on File Prior to Visit Medication Sig traMADol (ULTRAM) 50 mg tablet Take 1 tablet by mouth two times a day as needed for pain for up to 7 days. acetaminophen (TYLENOL) 500 mg tablet Take 2 tablets by mouth every 6 hours for 5 days, THEN 1-2 tablets every 6 hours as needed for pain for up to 10 days. senna (SENOKOT) 8.6 mg tab Take 1 tablet by mouth two times a day as needed for constipation for upto 15 days. Nebulizer Accessories kit 1 Units once daily as needed. albuterol (PROVENTIL) 2.5 mg /3 mL (0.083 %) nebulizer solution Use 3 mL via nebulizer every 4 hours as needed for wheezing/shortness of breath. Use over 5-15minutes. sertraline (ZOLOFT) 50 mg tablet Take 1 tablet by mouth once daily. hydrOXYzine HCl (ATARAX) 25 mg tablet Take 1 tablet by mouth three times a day as needed for itching/rash. pregabalin (LYRICA) 75 mg capsule Take 1 capsule by mouth once daily for 180 days. calcium carbonate 400 mg (1,000 mg) chew Take 1,000 mg by mouth once daily. ferrous sulfate (IRON) 325 mg (65 mg iron) tablet Take 325 mg by mouth once daily. valACYclovir (VALTREX) 500 mg tablet Take 4 tablets twice daily X 1 day. Then start one tablet by mouth daily thereafter. SUMAtriptan (IMITREX) 100 mg tablet Take 1 tablet (100 mg) by mouth as needed. START AT ONSET OF HEADACHE. MAY REPEAT DOSE AFTER 2 HOURS. cyanocobalamin (VITAMIN B-12) 100 mcg tab Take 100 mcg by mouth once daily. ergocalciferol, vitamin D2, (VITAMIN D2 ORAL) Take by mouth. MULTIVITAMIN NO.43-IRON-FA ORAL Take by mouth. albuterol (PROVENTIL) 2.5 mg /3 mL (0.083 %) nebulizer solution Use 3 mL via nebulizer every 4 hours as needed for wheezing/shortness of breath. No current facility-administered medications on file prior to visit. LMP 02/23/2024 (Approximate) PE Alert and oriented in NAD on room air abdominal incisions c/d/I, well-approximated, healing No s/s of infection 2 spitting abdominal sutures removed ASSESSMENT/PLAN: Expected post operative course Doing well -RTW letter given to pt -okay to return to work part-time for the next month -Shower regularly to keep the incisions clean and inspect for signs of infection (due to decreased sensation) -Okay to take a bath -Walking is encouraged, this helps to reduce swelling and lowers the chance of blood clots. If you were prescribed anticoagulation post operatively, please complete course as instructed -Activity restrictions reviewed with patient. No heavy lifting/pushing/pulling greater than 10 lbs for 4 weeks after surgery. Do not perform hydrogenation operator such as laundry and vacuuming. Do not perform yard work. no core exercises for 6-8 weeks following abdominal surgery -Continue, compression garment- okay for spanx type garment -Okay for driving if not taking any narcotic pain medication and you feel safe to maneuver a car -okay to sleep on your back and lie flat, do not sleep on the surgical side 3-4 weeks after recent procedure -Okay for tylenol alternating with ibuprofen for pain control (do not exceed 4 g tylenol in a 24 hour period, okay for ibuprofen 600-800 mg every 8 hours as needed for pain) -scar massage-with lotion of choice, massage incision for 5 minutes, 5 times a day for 5 months. -you may also use scar cream or tapes with silicone ingredient Encouraged patient [facility] for all non-urgent questions or concerns. If experiencing wound complications or have any questions or concerns during business hours call [phone] or after hours (after 5 pm or on the weekend) call [phone] and ask for the plastic surgery resident / fellow carbon paper coating supervisor for further instructions. If you have increasing swelling or bruising, particularly one side greater than the other. If swelling and redness persists after a few days. If you have increased redness along the incision. If you have severe or increased pain not relieved by medication. If you have an oral temperature of 100.4 degrees or higher. If you have any yellow or greenish drainage from the incisions or notice a foul smell. If you have bleeding from the incisions that is difficult to control with light pressure If you have new chest pain, shortness of breathe or difficulty breathing Return to clinic in 1 month Bonny Henry APRN.CNP May 12, 2024 documented in this encounterThe [facility]04-03-2025 NoteHNO ID: [id number] Author: BONNY HENRY APRN.CNP Service: ? Author Type: Nurse Practitioner Type: Progress Notes Filed: 05/12/2024 11:50 Note Text: Plastic Surgery Post Op Note CC: post op HPI: Raul Chong is a 43 year old female who presents s/p Date of Surgery: 03/14/24 Surgery: Panniculectomy Time Postop: 8 weeks Pt presents for post-op visit. 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 She is not taking any pain medications. She denies drainage from her incision, fever, chills. She reports spitting sutures on abdomen. No concerns Surgical pathology reviewed Component FINAL DIAGNOSIS Soft tissue, abdominal pannus, resection: - Skin with abundant subcutaneous adipose tissue. PAST MEDICAL HISTORY Diagnosis Date Autoimmune disease (HCC) Degeneration of intervertebral disc, site unspecified Depression Migraines Mild intermittent asthma Obesity Osteoarthritis of both knees Plantar fasciitis Psoriasis PAST SURGICAL HISTORY Procedure Laterality Date ADENOIDECTOMY PRIMARY Adenoidectomy DELIVERY ONLY , low cervical LAPAROSCOPY SURG CHOLECYSTECTOMY 2013 PAST SURGICAL HISTORY OF Bilateral arthoscopy to ankles, scar tissue removal and tendon lengthening TONSILLECTOMY PRIMARY/SECONDARY Tonsillectomy Current Outpatient Medications on File Prior to Visit Medication Sig traMADol (ULTRAM) 50 mg tablet Take 1 tablet by mouth two times a day as needed for pain for up to 7 days. acetaminophen (TYLENOL) 500 mg tablet Take 2 tablets by mouth every 6 hours for 5 days, THEN 1-2 tablets every 6 hours as needed for pain for up to 10 days. senna (SENOKOT) 8.6 mg tab Take 1 tablet by mouth two times a day as needed for constipation for up to 15 days. Nebulizer Accessories kit 1 Units once daily as needed. albuterol (PROVENTIL) 2.5 mg /3 mL (0.083 %) nebulizer solution Use 3 mL via nebulizer every 4 hours as needed for wheezing/shortness of breath. Use over 5-15minutes. sertraline (ZOLOFT) 50 mg tablet Take 1 tablet by mouth once daily. hydrOXYzine HCl (ATARAX) 25 mg tablet Take 1 tablet by mouth three times a day as needed for itching/rash. pregabalin (LYRICA) 75 mg capsule Take 1 capsule by mouth once daily for 180 days. calcium carbonate 400 mg (1,000 mg) chew Take 1,000 mg by mouth once daily. ferrous sulfate (IRON) 325 mg (65 mg iron) tablet Take 325 mg by mouth once daily. valACYclovir (VALTREX) 500 mg tablet Take 4 tablets twice daily X 1 day. Then start one tablet by mouth daily thereafter. SUMAtriptan (IMITREX) 100 mg tablet Take 1 tablet (100 mg) by mouth as needed. START AT ONSET OF HEADACHE. MAY REPEAT DOSE AFTER 2 HOURS. cyanocobalamin (VITAMIN B-12) 100 mcg tab Take 100 mcg by mouth once daily. ergocalciferol, vitamin D2, (VITAMIN D2 ORAL) Take by mouth. MULTIVITAMIN NO.43-IRON-FA ORAL Take by mouth. albuterol (PROVENTIL) 2.5 mg /3 mL (0.083 %) nebulizer solution Use 3 mL via nebulizer every 4 hours as needed for wheezing/shortness of breath. No current facility-administered medications on file prior to visit. LMP 02/23/2024 (Approximate) PE Alert and oriented in NAD on room air abdominal incisions c/d/I, well-approximated, healing No s/s of infection 2 spitting abdominal sutures removed ASSESSMENT/PLAN: Expected post operative course Doing well -RTW letter given to pt -okay to return to work part-time for the next month -Shower regularly to keep the incisions clean and inspect for signs of infection (due to decreased sensation) -Okay to take a bath -Walking is encouraged, this helps to reduce swelling and lowers the chance of blood clots. If you were prescribed anticoagulation post operatively, please complete course as instructed -Activity restrictions reviewed with patient. No heavy lifting/pushing/pulling greater than 10 lbs for 4 weeks after surgery. Do not perform hydrogenation operator such as laundry and vacuuming. Do not perform yard work. no core exercises for 6-8 weeks following abdominal surgery -Continue, compression garment- okay for spanx type garment -Okay for driving if not taking any narcotic pain medication and you feel safe to maneuver a car -okay to sleep on your back and lie flat, do not sleep on the surgical side 3-4 weeks after recent procedure -Okay for tylenol alternating with ibuprofen for pain control (do not exceed 4 g tylenol in a 24 hour period, okay for ibuprofen 600-800 mg every 8 hours as needed for pain) -scar massage-with lotion of choice, massage incision for 5 minutes, 5 times a day for 5 months. -you may also use scar cream or tapes with silicone ingredient Encouraged patient to communicate through MyChart for all non-urgent questions or concerns. If experiencing wound complications or have any questions or concerns during business hours call [phone] or after hours (after (more content not included)...[facility]03-23-2025 Telephone encounter Note* Telephone Encounter - Leeroy Groves MD - 05/01/2024 12:18 PM EDT Plastic Surgery - Telephone Encounter Patient calling with concerns of suture abscess on left side of incision. Notes erythema, swelling,induration, and drainage. Denies fevers/chills/nausea. Plan: - Prescribed duricef. Instructed patient to start using silver sulfadiazene ointment again and washthe area twice daily. - Will message for f/u this week - Patient agreeable to care plan at this time, all questions and concerns addressed. Patient encouraged to call back with any additional questions or concerns. Instructed on red-flag symptoms to callback if occur, understanding. Instructed on emergency signs/symptoms in which to come to ED immediately or call 10-20, patient understanding. Leeroy Groves MD Plastic Surgery Resident [phone] After 6 pm and on-weekends, please page [phone] (on-call plastic surgery) [facility]03-23-2025 Miscellaneous Notes* Telephone Encounter - Leeroy Groves MD - 05/01/2024 12:18 PM EDT Plastic Surgery - Telephone Encounter Patient calling with concerns of suture abscess on left side of incision. Notes erythema, swelling,induration, and drainage. Denies fevers/chills/nausea. Plan: - Prescribed duricef. Instructed patient to start using silver sulfadiazene ointment again and washthe area twice daily. - Will message for f/u this week - Patient agreeable to care plan at this time, all questions and concerns addressed. Patient encouraged to call back with any additional questions or concerns. Instructed on red-flag symptoms to callback if occur, understanding. Instructed on emergency signs/symptoms in which to come to ED immediately or call 10-20, patient understanding. Leeroy Groves MD Plastic Surgery Resident [phone] After 6 pm and on-weekends, please page [phone] (on-call plastic surgery) documented [facility] Tele[facility] encounter Note * Telephone Encounter - Adela Mejía RN - 05/01/2024 12:03 PM EDT Patient calling regarding concern for infection at incision site. Conferenced to [facility] probe operator, Yanique, to speak with provider carbon paper coating supervisor for Dr. Jae Sterling (Plastic Surgery). GO TO THE EMERGENCY ROOM OR CALL 911 IF: * You develop any new symptoms * Your condition worsens * You are concerned or anxious about your condition for any other reason. If you have any questions, you can call Nurse vision care associate back. [facility]03-23-2025 Miscellaneous Notes* Telephone Encounter - Adela Mejía RN - 05/01/2024 12:03 PM EDT Patient calling regarding concern for infection at incision site. Conferenced to [facility] probe operator, Yanique, to speak with provider carbon paper coating supervisor for Dr. Jae Sterling (Plastic Surgery). GO TO THE EMERGENCY ROOM OR CALL 911 IF: * You develop any new symptoms * Your condition worsens * You are concerned or anxious about your condition for any other reason. If you have any questions, you can call Nurse vision care associate back. documented in [facility] encounterThe [facility] Telephone encounter Note * Telephone Encounter - Diane Garrett MA - 04/18/2024 2:00 PM EDT Prescription Refill Information The patient has been identified by name and date of : Yes Caregiver verified no other encounters exist for this prescription request: Yes Caregiver confirmed with patient/requestor that no other refills are due, in the near future, with this provider at this time: Yes The last office visit in the department: 02/22/24 Does the patient have a future office visit with this provider/department: No, pt to return to office in 3 weeks (03/14/24), no appt scheduled. Requested Prescriptions Pending Prescriptions Disp Refills pregabalin (LYRICA) 75 mg capsule 30 capsule 5 Sig: Take 1 capsule by mouth once daily for 180 days. Diane Garrett MA April 18, 2024 2:00 PM [facility]03-10-2025 Miscellaneous Notes* Telephone Encounter - Diane Garrett MA - 04/18/2024 2:00 PM EDT Prescription Refill Information The patient has been identified by name and date of : Yes Caregiver verified no other encounters exist for this prescription request: Yes Caregiver confirmed with patient/requestor that no other refills are due, in the near future, with this provider at this time: Yes The last office visit in the department: 02/22/24 Does the patient have a future office visit with this provider/department: No, pt to return to office in 3 weeks (03/14/24), no appt scheduled. Requested Prescriptions Pending Prescriptions Disp Refills pregabalin (LYRICA) 75 mg capsule 30 capsule 5 Sig: Take 1 capsule by mouth once daily for 180 days. Diane Garrett MA April 18, 2024 2:00 PM documented in this encounterThe [facility] Note* Addendum Note - Bonny Henry APRN.CNP - 04/14/2024 12:13 PM ESTAddended by: BONNY HENRY on: 04/14/2024 12:13 PM Modules accepted: Orders [facility]03-06-2025 Miscellaneous Notes* Addendum Note - Bonny Henry APRN.CNP - 04/14/2024 12:13 PM ESTAddended by: BONNY HENRY on: 04/14/2024 12:13 PM Modules accepted: Orders documented in this encounterThe [facility] Instructions* Patient Instructions* Bonny Henry APRN.CNP - 04/14/2024 12:03 PM EST -okay to return to work in 2 weeks -scar massage-with lotion of choice, massage incision for 5 minutes, 5 times a day for 5 months. -you may also use scar cream or tapes with silicone ingredient -Shower regularly to keep the incisions clean and inspect for signs of infection (due to decreased sensation) -Okay to take a bath -Walking is encouraged, this helps to reduce swelling and lowers the chance of blood clots. If you were prescribed anticoagulation post operatively, please complete course as instructed -Activity restrictions reviewed with patient. No heavy lifting/pushing/pulling greater than 10 lbs for 4 weeks after surgery. Do not perform hydrogenation operator such as laundry and vacuuming. Do not perform yard work. no core exercises for 6-8 weeks following abdominal surgery -Continue, compression garment- okay for spanx type garment -Okay for driving if not taking any narcotic pain medication and you feel safe to maneuver a car -okay to sleep on your back and lie flat, do not sleep on the surgical side 3-4 weeks after recent procedure -Okay for tylenol alternating with ibuprofen for pain control (do not exceed 4 g tylenol in a 24 hour period, okay for ibuprofen 600-800 mg every 8 hours as needed for pain) Encouraged [facility] for all non-urgent questions or concerns. If experiencing wound complications or have any questions or concerns during business hours call [phone] or after hours (after 5 pm or on the weekend) call [phone] and ask for the plastic surgery resident / fellow carbon paper coating supervisor for further instructions. If you have increasing swelling or bruising, particularly one side greater than the other. If swelling and redness persists after a few days. If you have increased redness along the incision. If you have severe or increased pain not relieved by medication. If you have an oral temperature of 100.4 degrees or higher. If you have any yellow or greenish drainage from the incisions or notice a foul smell. If you have bleeding from the incisions that is difficult to control with light pressure If you have new chest pain, shortness of breathe or difficulty breathing documented in this encounterThe [facility]03[facility] History of Present illness Narrative* Bonny Henry APRN.CNP - 04/14/2024 11:40 AM EST Plastic Surgery Post Op Note CC: post op HPI: Raul Chong is a 43 year old female who presents s/p Date of Surgery: 03/14/24 Surgery: Panniculectomy Time Postop: 4 weeks Pt presents for post-op visit. Pt reports she jumped on the bed to play with her puppy and she heard a popping noise and burning on her right abdominal incision. She reports soreness on both sides Pain: pain is not an issue at this time. She does not take anything for pain Drainage from incisions: denies Fever/chills: denies Antibiotics: finished course Activity: able to participate in ADLs within recommended restrictions Appetite: good No concerns Surgical pathology reviewed Component FINAL DIAGNOSIS Soft tissue, abdominal pannus, resection: - Skin with abundant subcutaneous adipose tissue. PAST MEDICAL HISTORY Diagnosis Date Autoimmune disease [...] tendon lengthening TONSILLECTOMY PRIMARY/SECONDARY <AGE 11 Tonsillectomy Current Outpatient Medications on File Prior to Visit Medication Sig traMADol (ULTRAM) 50 mg tablet Take 1 tablet by mouth two times a day as needed for pain for up to 7 days. acetaminophen (TYLENOL) 500 mg tablet Take 2 tablets by mouth every 6 hours for 5 days, THEN 1-2 tablets every 6 hours as needed for pain for up to 10 days. senna (SENOKOT) 8.6 mg tab Take 1 tablet by mouth two times a day as needed for constipation for upto 15 days. Nebulizer Accessories kit 1 Units once daily as needed. albuterol (PROVENTIL) 2.5 mg /3 mL (0.083 %) nebulizer solution Use 3 mL via nebulizer every 4 hours as needed for wheezing/shortness of breath. Use over 5-15minutes. sertraline (ZOLOFT) 50 mg tablet Take 1 tablet by mouth once daily. hydrOXYzine HCl (ATARAX) 25 mg tablet Take 1 tablet by mouth three times a day as needed for itching/rash. pregabalin (LYRICA) 75 mg capsule Take 1 capsule by mouth once daily for 180 days. calcium carbonate 400 mg (1,000 mg) chew Take 1,000 mg by mouth once daily. ferrous sulfate (IRON) 325 mg (65 mg iron) tablet Take 325 mg by mouth once daily. valACYclovir (VALTREX) 500 mg tablet Take 4 tablets twice daily X 1 day. Then start one tablet by mouth daily thereafter. SUMAtriptan (IMITREX) 100 mg tablet Take 1 tablet (100 mg) by mouth as needed. START AT ONSET OF HEADACHE. MAY REPEAT DOSE AFTER 2 HOURS. cyanocobalamin (VITAMIN B-12) 100 mcg tab Take 100 mcg by mouth once daily. ergocalciferol, vitamin D2, (VITAMIN D2 ORAL) Take by mouth. MULTIVITAMIN NO.43-IRON-FA ORAL Take by mouth. albuterol (PROVENTIL) 2.5 mg /3 mL (0.083 %) nebulizer solution Use 3 mL via nebulizer every 4 hours as needed for wheezing/shortness of breath. No current facility-administered medications on file prior to visit. LMP 02/23/2024 (Approximate) PE Alert and oriented in NAD on room air abdominal incisions c/d/I, well-approximated, healing No s/s of infection ASSESSMENT/PLAN: Expected post operative course Doing well -okay to return to work in 2 weeks -Shower regularly to keep the incisions clean and inspect for signs of infection (due to decreased sensation) -Okay to take a bath -Walking is encouraged, this helps to reduce swelling and lowers the chance of blood clots. If you were prescribed anticoagulation post operatively, please complete course as instructed -Activity restrictions reviewed with patient. No heavy lifting/pushing/pulling greater than 10 lbs for 4 weeks after surgery. Do not perform hydrogenation operator such as laundry and vacuuming. Do not perform yard work. no core exercises for 6-8 weeks following abdominal surgery -Continue, compression garment- okay for spanx type garment -Okay for driving if not taking any narcotic pain medication and you feel safe to maneuver a car -okay to sleep on your back and lie flat, do not sleep on the surgical side 3-4 weeks after recent procedure -Okay for tylenol alternating with ibuprofen for pain control (do not exceed 4 g tylenol in a 24 hour period, okay for ibuprofen 600-800 mg every 8 hours as needed for pain) -scar massage-with lotion of choice, massage incision for 5 minutes, 5 times a day for 5 months. -you may also use scar cream or tapes with silicone ingredient Encouraged [facility] all [facility] questions or concerns. If experiencing wound complications or have any questions or concerns during business hours call [phone] or after hours (after 5 pm or on the weekend) call [phone] and ask for the plastic surgery resident / fellow carbon paper coating supervisor for further instructions. If you have increasing swelling or bruising, particularly one side greater than the other. If swelling and redness persists after a few days. If you have increased redness along the incision. If you have severe or increased pain not relieved by medication. If you have an oral temperature of 100.4 degrees or higher. If you have any yellow or greenish drainage from the incisions or notice a foul smell. If you have bleeding from the incisions that is difficult to control with light pressure If you have new chest pain, shortness of breathe or difficulty breathing Return to clinic in 1 month Bonny Henry APRN.CNP April 14, 2024 documented in this encounterThe [facility]03[facility] NoteHNO ID: [id number] Author: BONNY HENRY APRN.CNP Service: ? Author Type: Nurse Practitioner Type: Progress Notes Filed: 04/14/2024 12:13 Note Text: Plastic Surgery Post Op Note CC: post op HPI: Raul Chong is a 43 year old female who presents s/p Date of Surgery: 03/14/24 Surgery: Panniculectomy Time Postop: 4 weeks Pt presents for post-op visit. Pt reports she jumped on the bed to play with her puppy and she heard a popping noise and burning on her right abdominal incision. She reports soreness on both sides Pain: pain is not an issue at this time. She does not take anything for pain Drainage from incisions: denies Fever/chills: denies Antibiotics: finished course Activity: able to participate in ADLs within recommended restrictions Appetite: good No concerns Surgical pathology reviewed Component FINAL DIAGNOSIS Soft tissue, abdominal pannus, resection: - Skin with abundant subcutaneous adipose tissue. PAST MEDICAL HISTORY Diagnosis Date Autoimmune disease (HCC) Degeneration of intervertebral disc, site unspecified Depression Migraines Mild intermittent asthma Obesity Osteoarthritis of both knees Plantar fasciitis Psoriasis PAST SURGICAL HISTORY Procedure Laterality Date ADENOIDECTOMY PRIMARY Adenoidectomy DELIVERY ONLY , low cervical LAPAROSCOPY SURG CHOLECYSTECTOMY 2013 PAST SURGICAL HISTORY OF Bilateral arthoscopy to ankles, scar tissue removal and tendon lengthening TONSILLECTOMY PRIMARY/SECONDARY Tonsillectomy Current Outpatient Medications on File Prior to Visit Medication Sig traMADol (ULTRAM) 50 mg tablet Take 1 tablet by mouth two times a day as needed for pain for up to 7 days. acetaminophen (TYLENOL) 500 mg tablet Take 2 tablets by mouth every 6 hours for 5 days, THEN 1-2 tablets every 6 hours as needed for pain for up to 10 days. senna (SENOKOT) 8.6 mg tab Take 1 tablet by mouth two times a day as needed for constipation for up to 15 days. Nebulizer Accessories kit 1 Units once daily as needed. albuterol (PROVENTIL) 2.5 mg /3 mL (0.083 %) nebulizer solution Use 3 mL via nebulizer every 4 hours as needed for wheezing/shortness of breath. Use over 5-15minutes. sertraline (ZOLOFT) 50 mg tablet Take 1 tablet by mouth once daily. hydrOXYzine HCl (ATARAX) 25 mg tablet Take 1 tablet by mouth three times a day as needed for itching/rash. pregabalin (LYRICA) 75 mg capsule Take 1 capsule by mouth once daily for 180 days. calcium carbonate 400 mg (1,000 mg) chew Take 1,000 mg by mouth once daily. ferrous sulfate (IRON) 325 mg (65 mg iron) tablet Take 325 mg by mouth once daily. valACYclovir (VALTREX) 500 mg tablet Take 4 tablets twice daily X 1 day. Then start one tablet by mouth daily thereafter. SUMAtriptan (IMITREX) 100 mg tablet Take 1 tablet (100 mg) by mouth as needed. START AT ONSET OF HEADACHE. MAY REPEAT DOSE AFTER 2 HOURS. cyanocobalamin (VITAMIN B-12) 100 mcg tab Take 100 mcg by mouth once daily. ergocalciferol, vitamin D2, (VITAMIN D2 ORAL) Take by mouth. MULTIVITAMIN NO.43-IRON-FA ORAL Take by mouth. albuterol (PROVENTIL) 2.5 mg /3 mL (0.083 %) nebulizer solution Use 3 mL via nebulizer every 4 hours as needed for wheezing/shortness of breath. No current facility-administered medications on file prior to visit. LMP 02/23/2024 (Approximate) PE Alert and oriented in NAD on room air abdominal incisions c/d/I, well-approximated, healing No s/s of infection ASSESSMENT/PLAN: Expected post operative course Doing well -okay to return to work in 2 weeks -Shower regularly to keep the incisions clean and inspect for signs of infection (due to decreased sensation) -Okay to take a bath -Walking is encouraged, this helps to reduce swelling and lowers the chance of blood clots. If you were prescribed anticoagulation post operatively, please complete course as instructed -Activity restrictions reviewed with patient. No heavy lifting/pushing/pulling greater than 10 lbs for 4 weeks after surgery. Do not perform hydrogenation operator such as laundry and vacuuming. Do not perform yard work. no core exercises for 6-8 weeks following abdominal surgery -Continue, compression garment- okay for spanx type garment -Okay for driving if not taking any narcotic pain medication and you feel safe to maneuver a car -okay to sleep on your back and lie flat, do not sleep on the surgical side 3-4 weeks after recent procedure -Okay for tylenol alternating with ibuprofen for pain control (do not exceed 4 g tylenol in a 24 hour period, okay for ibuprofen 600-800 mg every 8 hours as needed for pain) -scar massage-with lotion of choice, massage incision for 5 minutes, 5 times a day for 5 months. -you may also use scar cream or tapes with silicone ingredient Encouraged [facility] all [facility]ent questions or concerns. If experiencing wound complications or hav (more content not included)... [facility]02-26-2025 Telephone encounter Note* Telephone Encounter - Alexia Brian RN - 04/06/2024 10:35 AM EST Patient states yesterday she was lying on the couch when she started to feel really hot and had theshakes. This lasted 30 minutes. She sat up and started to feel better. She is s/p gastric bypass and sometimes this happens when her sugars drop low. This only happened the one time yesterday but patient was concerned about infection. At the time her temperature was 99. Today she feels better, still fatigued after surgery 98.5 temperature. Denies any other symptoms ofinfection, incisions healing well. Mild swelling at her midline but she does not believe there is afluid collection. Denies fluid wave. Has not been wearing binder the past two days. We discussed to continue to monitor, if symptoms persist or if she has another episode with any newsymptoms of infection call us or go to ED for further evaluation. Okay to switch to compressive leggings/garment during the day if binder is causing discomfort. Offered an appointment with bonny tomorrow for evaluation. Patient is feeling better today and willcontinue to monitor and follow up with us. Has post op next week with bonny feels okay to wait until then and will call to come in sooner if needed. No further questions or concerns at this time. [facility]02-26-2025 Miscellaneous Notes* Telephone Encounter - Alexia Brian RN - 04/06/2024 10:35 AM EST Patient states yesterday she was lying on the couch when she started to feel really hot and had theshakes. This lasted 30 minutes. She sat up and started to feel better. She is s/p gastric bypass and sometimes this happens when her sugars drop low. This only happened the one time yesterday but patient was concerned about infection. At the time her temperature was 99. Today she feels better, still fatigued after surgery 98.5 temperature. Denies any other symptoms ofinfection, incisions healing well. Mild swelling at her midline but she does not believe there is afluid collection. Denies fluid wave. Has not been wearing binder the past two days. We discussed to continue to monitor, if symptoms persist or if she has another episode with any newsymptoms of infection call us or go to ED for further evaluation. Okay to switch to compressive leggings/garment during the day if binder is causing discomfort. Offered an appointment with bonny tomorrow for evaluation. Patient is feeling better today and willcontinue to monitor and follow up with us. Has post op next week with bonny feels okay to wait until then and will call to come in sooner if needed. No further questions or concerns at this time. * Telephone Encounter - Ladi Tierney - 04/05/2024 2:54 PM EST Patient had surgery on 03/14. Today patient was laying on her side when she started feeling very hotand got the shakes. Patient concerned this could be related to her surgery. Patient requesting to speak with Dr Sterling or a nurse. Please return call to advise [phone] documented in [facility]The [facility] Telephone encounter Note * Telephone Encounter - Ladi Tierney - 04/05/2024 2:54 PM EST Patient had surgery on 03/14. Today patient was laying on her side when she started feeling very hotand got the shakes. Patient concerned this could be related to her surgery. Patient requesting to speak with Dr Sterling or a nurse. Please return call to advise [phone] [facility]02-20-2025 Instructions* Patient Instructions* Bonny Henry APRN.SAUSAGE GRINDER - 03/31/2024 2:00 PM EST -you may stop antibiotics -DERRICK drain removed X 1. DSD applied. Okay to shower in 24 hours. Apply antibiotic ointment to drain sites and cover with band aid until they are healed -Shower regularly to keep the incisions clean and inspect for signs of infection (due to decreased sensation) -Walking is encouraged, this helps to reduce swelling and lowers the chance of blood clots. If you were prescribed anticoagulation post operatively, please complete course as instructed -Activity restrictions reviewed with patient. Okay to raise arm above head at 2 weeks if you drainshave all been removed and you do not have any wound healing issues. No heavy lifting/pushing/pulling greater than 10 lbs for 4 weeks after surgery. Do not perform hydrogenation operator such as laundry andvacuuming. Do not perform yard work. no core exercises for 6-8 weeks following abdominal surgery -Continue surgical bra, okay for soft bra/sports bra at 2 weeks, no underwire -Continue abdominal binder, compression garment- okay for spanx type garment -No water submersion/baths until all incisions are fully healed -Okay for driving if not taking any narcotic pain medication and you feel safe to maneuver a car -apply silvadene ointment to incision and cover with dry dressing BID until healed -okay to sleep on your back and lie flat, do not sleep on the surgical side 3-4 weeks after recent procedure -Okay for tylenol alternating with ibuprofen for pain control (do not exceed 4 g tylenol in a 24 hour period, okay for ibuprofen 600-800 mg every 8 hours as needed for pain) Encouraged patient to communicate through MyChart for all non-urgent questions or concerns. If experiencing wound complications or have any questions or concerns during business hours call [phone] or after hours (after 5 pm or on the weekend) call [phone] and ask for the plastic surgery resident / fellow carbon paper coating supervisor for further instructions. If you have increasing swelling or bruising, particularly one side greater than the other. If swelling and redness persists after a few days. If you have increased redness along the incision. If you have severe or increased pain not relieved by medication. If you have an oral temperature of 100.4 degrees or higher. If you have any yellow or greenish drainage from the incisions or notice a foul smell. If you have bleeding from the incisions that is difficult to control with light pressure If you have new chest pain, shortness of breathe or difficulty breathing documented in this encounterThe [facility]02[facility] History of Present illness Narrative* Bonny Henry APRN.FATEMEH - 03/31/2024 1:20 PM EST Plastic Surgery Post Op Note CC: post op HPI: Raul Chong is a 43 year old female who presents s/p Date of Surgery: 03/14/24 Surgery: Panniculectomy Time Postop: 17 days Pt presents for post-op visit. Pt reports that pain is less and she is sore in hips and mid abdomen Pain: pain is not an issue at this time Drainage from incisions: denies Fever/chills: denies Antibiotics: yes Drain output: Derrick drain with less than 20 cc x 2 days Activity: able to participate in ADLs within recommended restrictions Appetite: good No concerns Surgical pathology reviewed Component FINAL DIAGNOSIS Soft tissue, abdominal pannus, resection: - Skin with abundant subcutaneous adipose tissue. PAST MEDICAL HISTORY Diagnosis Date Autoimmune disease [...] tendon lengthening TONSILLECTOMY PRIMARY/SECONDARY <AGE 11 Tonsillectomy Current Outpatient Medications on File Prior to Visit Medication Sig traMADol (ULTRAM) 50 mg tablet Take 1 tablet by mouth two times a day as needed for pain for up to 7 days. acetaminophen (TYLENOL) 500 mg tablet Take 2 tablets by mouth every 6 hours for 5 days, THEN 1-2 tablets every 6 hours as needed for pain for up to 10 days. senna (SENOKOT) 8.6 mg tab Take 1 tablet by mouth two times a day as needed for constipation for upto 15 days. Nebulizer Accessories kit 1 Units once daily as needed. albuterol (PROVENTIL) 2.5 mg /3 mL (0.083 %) nebulizer solution Use 3 mL via nebulizer every 4 hours as needed for wheezing/shortness of breath. Use over 5-15minutes. sertraline (ZOLOFT) 50 mg tablet Take 1 tablet by mouth once daily. hydrOXYzine HCl (ATARAX) 25 mg tablet Take 1 tablet by mouth three times a day as needed for itching/rash. pregabalin (LYRICA) 75 mg capsule Take 1 capsule by mouth once daily for 180 days. calcium carbonate 400 mg (1,000 mg) chew Take 1,000 mg by mouth once daily. ferrous sulfate (IRON) 325 mg (65 mg iron) tablet Take 325 mg by mouth once daily. valACYclovir (VALTREX) 500 mg tablet Take 4 tablets twice daily X 1 day. Then start one tablet by mouth daily thereafter. SUMAtriptan (IMITREX) 100 mg tablet Take 1 tablet (100 mg) by mouth as needed. START AT ONSET OF HEADACHE. MAY REPEAT DOSE AFTER 2 HOURS. cyanocobalamin (VITAMIN B-12) 100 mcg tab Take 100 mcg by mouth once daily. ergocalciferol, vitamin D2, (VITAMIN D2 ORAL) Take by mouth. MULTIVITAMIN NO.43-IRON-FA ORAL Take by mouth. albuterol (PROVENTIL) 2.5 mg /3 mL (0.083 %) nebulizer solution Use 3 mL via nebulizer every 4 hours as needed for wheezing/shortness of breath. No current facility-administered medications on file prior to visit. LMP 02/23/2024 (Approximate) PE Alert and oriented in NAD on room air Abdominal DRERICK drain intact, patent, draining ss drainage abdominal incisions c/d/I, No s/s of infection ASSESSMENT/PLAN: Expected post operative course Doing well -you may stop antibiotics -DERRICK drain removed X 1. DSD applied. Okay to shower in 24 hours. Apply antibiotic ointment to drain sites and cover with band aid until they are healed -Shower regularly to keep the incisions clean and inspect for signs of infection (due to decreased sensation) -Walking is encouraged, this helps to reduce swelling and lowers the chance of blood clots. If you were prescribed anticoagulation post operatively, please complete course as instructed -Activity restrictions reviewed with patient. Okay to raise arm above head at 2 weeks if you drainshave all been removed and you do not have any wound healing issues. No heavy lifting/pushing/pulling greater than 10 lbs for 4 weeks after surgery. Do not perform hydrogenation operator such as laundry andvacuuming. Do not perform yard work. no core exercises for 6-8 weeks following abdominal surgery -Continue surgical bra, okay for soft bra/sports bra at 2 weeks, no underwire -Continue abdominal binder, compression garment- okay for spanx type garment -No water submersion/baths until all incisions are fully healed -Okay for driving if not taking any narcotic pain medication and you feel safe to maneuver a car -apply silvadene ointment to incision and cover with dry dressing BID until healed -okay to sleep on your back and lie flat, do not sleep on the surgical side 3-4 weeks after recent procedure -Okay for tylenol alternating with ibuprofen for pain control (do not exceed 4 g tylenol in a 24 hour period, okay for ibuprofen 600-800 mg every 8 hours as needed for pain) Encouraged patient to communicate through MyChart for all non-urgent questions or concerns. If experiencing wound complications or have any questions or concerns during business hours call [phone] or after hours (after 5 pm or on the weekend) call [phone] and ask for the plastic surgery resident / fellow carbon paper coating supervisor for further instructions. If you have increasing swelling or bruising, particularly one side greater than the other. If swelling and redness persists after a few days. If you have increased redness along the incision. If you have severe or increased pain not relieved by medication. If you have an oral temperature of 100.4 degrees or higher. If you have any yellow or greenish drainage from the incisions or notice a foul smell. If you have bleeding from the incisions that is difficult to control with light pressure If you have new chest pain, shortness of breathe or difficulty breathing Return to clinic in 2 week(s) Bonny Henry APRN.CNP March 31, 2024 documented in this encounterThe [facility]02-[facility]25 NoteHNO ID: [id number] Author: BONNY HENRY APRN.CNP Service: ? Author Type: Nurse Practitioner Type: Progress Notes Filed: 03/31/2024 14:01 Note Text: Plastic Surgery Post Op Note CC: post op HPI: Raul Chong is a 43 year old female who presents s/p Date of Surgery: 03/14/24 Surgery: Panniculectomy Time Postop: 17 days Pt presents for post-op visit. Pt reports that pain is less and she is sore in hips and mid abdomen Pain: pain is not an issue at this time Drainage from incisions: denies Fever/chills: denies Antibiotics: yes Drain output: Derrick drain with less than 20 cc x 2 days Activity: able to participate in ADLs within recommended restrictions Appetite: good No concerns Surgical pathology reviewed Component FINAL DIAGNOSIS Soft tissue, abdominal pannus, resection: - Skin with abundant subcutaneous adipose tissue. PAST MEDICAL HISTORY Diagnosis Date Autoimmune disease (HCC) Degeneration of intervertebral disc, site unspecified Depression Migraines Mild intermittent asthma Obesity Osteoarthritis of both knees Plantar fasciitis Psoriasis PAST SURGICAL HISTORY Procedure Laterality Date ADENOIDECTOMY PRIMARY Adenoidectomy DELIVERY ONLY , low cervical LAPAROSCOPY SURG CHOLECYSTECTOMY 2013 PAST SURGICAL HISTORY OF Bilateral arthoscopy to ankles, scar tissue removal and tendon lengthening TONSILLECTOMY PRIMARY/SECONDARY Tonsillectomy Current Outpatient Medications on File Prior to Visit Medication Sig traMADol (ULTRAM) 50 mg tablet Take 1 tablet by mouth two times a day as needed for pain for up to 7 days. acetaminophen (TYLENOL) 500 mg tablet Take 2 tablets by mouth every 6 hours for 5 days, THEN 1-2 tablets every 6 hours as needed for pain for up to 10 days. senna (SENOKOT) 8.6 mg tab Take 1 tablet by mouth two times a day as needed for constipation for up to 15 days. Nebulizer Accessories kit 1 Units once daily as needed. albuterol (PROVENTIL) 2.5 mg /3 mL (0.083 %) nebulizer solution Use 3 mL via nebulizer every 4 hours as needed for wheezing/shortness of breath. Use over 5-15minutes. sertraline (ZOLOFT) 50 mg tablet Take 1 tablet by mouth once daily. hydrOXYzine HCl (ATARAX) 25 mg tablet Take 1 tablet by mouth three times a day as needed for itching/rash. pregabalin (LYRICA) 75 mg capsule Take 1 capsule by mouth once daily for 180 days. calcium carbonate 400 mg (1,000 mg) chew Take 1,000 mg by mouth once daily. ferrous sulfate (IRON) 325 mg (65 mg iron) tablet Take 325 mg by mouth once daily. valACYclovir (VALTREX) 500 mg tablet Take 4 tablets twice daily X 1 day. Then start one tablet by mouth daily thereafter. SUMAtriptan (IMITREX) 100 mg tablet Take 1 tablet (100 mg) by mouth as needed. START AT ONSET OF HEADACHE. MAY REPEAT DOSE AFTER 2 HOURS. cyanocobalamin (VITAMIN B-12) 100 mcg tab Take 100 mcg by mouth once daily. ergocalciferol, vitamin D2, (VITAMIN D2 ORAL) Take by mouth. MULTIVITAMIN NO.43-IRON-FA ORAL Take by mouth. albuterol (PROVENTIL) 2.5 mg /3 mL (0.083 %) nebulizer solution Use 3 mL via nebulizer every 4 hours as needed for wheezing/shortness of breath. No current facility-administered medications on file prior to visit. LMP 02/23/2024 (Approximate) PE Alert and oriented in NAD on room air Abdominal DERRICK drain intact, patent, draining ss drainage abdominal incisions c/d/I, No s/s of infection ASSESSMENT/PLAN: Expected post operative course Doing well -you may stop antibiotics -DERRICK drain removed X 1. DSD applied. Okay to shower in 24 hours. Apply antibiotic ointment to drain sites and cover with band aid until they are healed -Shower regularly to keep the incisions clean and inspect for signs of infection (due to decreased sensation) -Walking is encouraged, this helps to reduce swelling and lowers the chance of blood clots. If you were prescribed anticoagulation post operatively, please complete course as instructed -Activity restrictions reviewed with patient. Okay to raise arm above head at 2 weeks if you drains have all been removed and you do not have any wound healing issues. No heavy lifting/pushing/pulling greater than 10 lbs for 4 weeks after surgery. Do not perform hydrogenation operator such as laundry and vacuuming. Do not perform yard work. no core exercises for 6-8 weeks following abdominal surgery -Continue surgical bra, okay for soft bra/sports bra at 2 weeks, no underwire -Continue abdominal binder, compression garment- okay for spanx type garment -No water submersion/baths until all incisions are fully healed -Okay for driving if not taking any narcotic pain medication and you feel safe to maneuver a car -apply silvadene ointment to incision and cover with dry dressing BID until healed -okay to sleep on your back and lie flat, do not sleep on the surgical side 3-4 weeks after recent procedure -Okay for tylenol alternating with ibuprofen for (more content not included)... [facility]02-17-2025 Telephone encounter Note* Telephone Encounter - Familia Cruz MD - 03/28/2024 7:02 PM EST Plastic Surgery - Telephone Encounter Patient called with concern of: Drainage from around drain Raul Chong is a 43 year old female s/p Panniculectomy on 03/14 that is calling for concernsof drainage. Patient reports she still has a DERRICK and while in the restroom she noticed drainage fromaround the drain that went down her leg. She reports the color is the same as the bulb; clear and serous. She denies any new pain. She notes last appointment she needs to adhere more to the physical r estrictions from surgery and wear binder. Patient denies fever, chills, cough, shortness of breath, chest pain, nausea, vomiting, diarrhea, abdominal pain, or any other complaints at this time. States surgical sites are: well healed, clean, dry and intact and there is no erythema or drainage present. No erythema, rubor or new pain. Drains are Same: in output in content, character and volume. Shedeniesconstitutional symptoms. denies fevers or chills. Ambulatory. Good oral intake. Voiding without difficulty. Plan: - Patient advised to reinforce with dressing around drain as needed - Patient agreeable to care plan at this time, all questions and concerns addressed. Patient encouraged to call back with any additional questions or concerns. Instructed on red-flag symptoms to callback if occur, understanding. Instructed on emergency signs/symptoms in which to come to ED immediately or call 9, patient understanding. Familia Cruz MD Plastic Surgery Resident (PGY-2) [phone] After 6 pm and on-weekends, please page [phone] (on-call plastic surgery) [facility] Work Phone: [phone] 353-249602-17-2025 Miscellaneous Notes* Telephone Encounter - Familia Cruz MD - 03/28/2024 7:02 PM EST Plastic Surgery - Telephone Encounter Patient called with concern of: Drainage from around drain Raul Chong is a 43 year old female s/p Panniculectomy on 03/14 that is calling for concernsof drainage. Patient reports she still has a DERRICK and while in the restroom she noticed drainage fromaround the drain that went down her leg. She reports the color is the same as the bulb; clear and serous. She denies any new pain. She notes last appointment she needs to adhere more to the physical r estrictions from surgery and wear binder. Patient denies fever, chills, cough, shortness of breath, chest pain, nausea, vomiting, diarrhea, abdominal pain, or any other complaints at this time. States surgical sites are: well healed, clean, dry and intact and there is no erythema or drainage present. No erythema, rubor or new pain. Drains are Same: in output in content, character and volume. Shedeniesconstitutional symptoms. denies fevers or chills. Ambulatory. Good oral intake. Voiding without difficulty. Plan: - Patient advised to reinforce with dressing around drain as needed - Patient agreeable to care plan at this time, all questions and concerns addressed. Patient encouraged to call back with any additional questions or concerns. Instructed on red-flag symptoms to callback if occur, understanding. Instructed on emergency signs/symptoms in which to come to ED immediately or call 911, patient understanding. Familia Cruz MD Plastic Surgery Resident (PGY-2) [id number] After 6 pm and on-weekends, please page [phone] (on-call plastic surgery) documented in this encounterThe [facility]02[facility] Telephone encounter Note * Telephone Encounter - Danielle Mandujano RN - 03/28/2024 6:30 PM EST Patient calling regarding puddle from drain site:. I conf her to Joleen the probe operator to page Plastic surgeon carbon paper coating supervisor for Dr. Javi Sterling. [facility]02-17-20[facility] Miscellaneous Notes* Telephone Encounter - Danielle Mandujano RN - 03/28/2024 6:30 PM EST Patient calling regarding puddle from drain site:. I conf her to Joleen the probe operator to page Plastic surgeon carbon paper coating supervisor for Dr. Javi Sterling. documented in this encounterThe [facility]02[facility] Telephone encounter Note * Telephone Encounter - Madelin Boston MA - 03/28/2024 8:37 AM EST Prescription Refill Information The patient has been identified by name and date of : Yes Caregiver verified no other encounters exist for this prescription request: Yes Caregiver confirmed with patient/requestor that no other refills are due, in the near future, with this provider at this time: Yes The last office visit in the department: 02/2024 Does the patient have a future office visit with this provider/department: No Requested Prescriptions Pending Prescriptions Disp Refills valACYclovir (VALTREX) 500 mg tablet 38 tablet 4 Sig: Take 4 tablets twice daily X 1 day. Then start one tablet by mouth daily thereafter. Madelin Boston MA March 28, 2024 8:37 AM [facility]02-17-20[facility] Miscellaneous Notes* Telephone Encounter - Madelin Boston MA - 03/28/2024 8:37 AM EST Prescription Refill Information The patient has been identified by name and date of : Yes Caregiver verified no other encounters exist for this prescription request: Yes Caregiver confirmed with patient/requestor that no other refills are due, in the near future, with this provider at this time: Yes The last office visit in the department: 02/2024 Does the patient have a future office visit with this provider/department: No Requested Prescriptions Pending Prescriptions Disp Refills valACYclovir (VALTREX) 500 mg tablet 38 tablet 4 Sig: Take 4 tablets twice daily X 1 day. Then start one tablet by mouth daily thereafter. Madelin Boston MA March 28, 2024 8:37 AM documented in this encounterThe [facility]02-[facility] Instructions* Patient Instructions* Starr Ram APRN.CNP - 03/26/2024 10:59 AM EST Stretches Flexeril as ordered, do not use with ultram Tylenol as ordered Follow up with pcp Report immediately to ER for foot drop, bowel or bladder loss, numbness or tingling of legs/feet orany new or worsening concerns if unable to get into PMD documented in this encounterThe [facility]02-[facility]-2025 NoteHNO ID: [id number] Author: STARR RAM APRN.CNP Service: ? Author Type: Nurse Practitioner Type: Progress Notes Filed: 03/26/2024 11:01 Note Text: Subjective The history is provided by the patient. No hourly sign language interpreter was used. RAJINDER Raul Chong is a 43 year old female who presents today for CC of lower left shooting pains down her leg, starting mid gluteal. She has had recent bariatric surgery, lost 250 lbs, and recently had panniculectomy. She has used ultram and tylenol without relief. She has 2 ultram left. She denies any know injury or trauma She denies any loss of bowel or bladder function, no foot drop or drag BP 112/64 Pulse 84 Temp 36.3 ?C (97.4 ?F) (Tympanic) Resp 16 Wt 83.6 kg (184 lb 4.9 oz) LMP 02/23/2024 (Approximate) SpO2 97% BMI 28.02 kg/m? Social History Tobacco Use Smoking status: Former Current packs/day: 0.00 Average packs/day: 0.3 packs/day for 24.0 years (6.0 ttl pk-yrs) Types: Cigarettes Start date: 03/19/1990 Quit date: 2014 Years since quittin.1 Smokeless tobacco: Never Tobacco comments: Quit in 2014, does vape daily Vaping Use Vaping status: current everyday user Start date: 08/10/2023 Substances: Nicotine Devices: Disposable Substance Use Topics Alcohol use: Not Currently Comment: rarely Drug use: No PAST MEDICAL HISTORY Diagnosis Date Autoimmune disease (HCC) Degeneration of intervertebral disc, site unspecified Depression Migraines Mild intermittent asthma Obesity Osteoarthritis of both knees Plantar fasciitis Psoriasis I have confirmed and edited as necessary, the [facility] Review of Systems Constitutional: Negative for chills and fever. Musculoskeletal: Positive for back pain. Negative for joint pain and myalgias. Skin: Negative for itching and rash. All other systems reviewed and are negative. Objective Physical Exam Vitals and nursing note reviewed. Cardiovascular: Pulses: Dorsalis pedis pulses are 2+ on the right side and 2+ on the left side. Posterior tibial pulses are 2+ on the right side and 2+ on the left side. Pulmonary: Effort: Pulmonary effort is normal. Musculoskeletal: Cervical back: Normal. Thoracic back: Normal. Lumbar back: Tenderness present. No swelling, deformity, lacerations or bony tenderness. Back: Comments: Area of pain marked with radiation of pain Skin: General: Skin is warm and dry. Neurological: Mental Status: She is alert and oriented to person, place, and time. Sensory: Sensation is intact. Motor: Motor function is intact. Deep Tendon Reflexes: Reflexes are normal and symmetric. Psychiatric: Mood and Affect: Affect normal. ASSESSMENT/PLAN: 1. Acute right-sided low back pain with right-sided sciatica - ICD9: 724.2, 724.3, ICD10: M54.41 Sciatica - Warm moist heat for 20 min three times a day - Muscle relaxant- see orders - Patient given instructions use of medications as ordered, intermittent rest, proper lifting techniques, and intermittent use of heat Diagnosis and treatment plan were discussed and questions were answered to the patient's satisfaction. Pt acknowledged understanding of concepts and follow up plan. Specific signs and symptoms that would indicate the need for higher level of care were discussed in detail warranting prompt ER evaluation. [facility] History of Present illness Narrative* Starr Ram APRN.FATEMEH - 03/26/2024 10:41 AM EST Images from the original note were not included. Subjective The history is provided by the patient. No hourly sign language interpreter was used. RAJINDER Chong is a 43 year old female who presents today for CC of lower left shooting pains down her leg, starting mid gluteal. She has had recent bariatric surgery, lost 250 lbs, and recently had panniculectomy. She has used ultram and tylenol without relief. She has 2 ultram left. Shedenies any know injury or trauma She denies any loss of bowel or bladder function, no foot drop or drag BP 112/64 Pulse 84 Temp 36.3 C (97.4 F) (Tympanic) Resp 16 Wt 83.6 kg (184 lb 4.9 oz) LMP02/23/2024 (Approximate) SpO2 97% BMI 28.02 kg/m Social History Tobacco Use Smoking status: Former Current packs/day: 0.00 Average packs/day: 0.3 packs/day for 24.0 years (6.0 ttl pk-yrs) Types: Cigarettes Start date: 03/19/1990 Quit date: 2015 Years since quittin.1 Smokeless tobacco: Never Tobacco comments: Quit in 2015, does vape daily Vaping Use Vaping status: current everyday user Start date: 08/10/2023 Substances: Nicotine Devices: Disposable Substance Use Topics Alcohol use: Not Currently Comment: rarely Drug use: No PAST MEDICAL HISTORY Diagnosis Date Autoimmune disease (HCC) Degeneration of intervertebral disc, site unspecified Depression Migraines Mild intermittent asthma Obesity Osteoarthritis of both knees Plantar fasciitis Psoriasis I have confirmed and edited as necessary, the [facility] Review of Systems Constitutional: Negative for chills and fever. Musculoskeletal: Positive for back pain. Negative for joint pain and myalgias. Skin: Negative for itching and rash. All other systems reviewed and are negative. Objective Physical Exam Vitals and nursing note reviewed. Cardiovascular: Pulses: Dorsalis pedis pulses are 2+ on the right side and 2+ on the left side. Posterior tibial pulses are 2+ on the right side and 2+ on the left side. Pulmonary: Effort: Pulmonary effort is normal. Musculoskeletal: Cervical back: Normal. Thoracic back: Normal. Lumbar back: Tenderness present. No swelling, deformity, lacerations or bony tenderness. Back: Comments: Area of pain marked with radiation of pain Skin: General: Skin is warm and dry. Neurological: Mental Status: She is alert and oriented to person, place, and time. Sensory: Sensation is intact. Motor: Motor function is intact. Deep Tendon Reflexes: Reflexes are normal and symmetric. Psychiatric: Mood and Affect: Affect normal. ASSESSMENT/PLAN: 1. Acute right-sided low back pain with right-sided sciatica - ICD9: 724.2, 724.3, ICD10: M54.41 Sciatica - Warm moist heat for 20 min three times a day - Muscle relaxant- see orders - Patient given instructions use of medications as ordered, intermittent rest, proper lifting techniques, and intermittent use of heat Diagnosis and treatment plan were discussed and questions were answered to the patient's satisfaction. Pt acknowledged understanding of concepts and follow up plan. Specific signs and symptoms that would indicate the need for higher level of care were discussed indetail warranting prompt ER evaluation. Starr Ram APRN.CNP documented in [facility]The [facility] Instructions* Patient Instructions* Bonny Henry APRN.CNP - 03/24/2024 11:52 AM EST -Reviewed surgical pathology with the patient - Do not remove dressing, okay to reinforce w/ Tegaderm. Tegaderm's given to patient today - Continue to record remaining DERRICK drain output in cc's or ml's. -Shower regularly to keep the incisions clean and inspect for signs of infection (due to decreased sensation) -Walking is encouraged, this helps to reduce swelling and lowers the chance of blood clots. If you were prescribed anticoagulation post operatively, please complete course as instructed -Activity restrictions reviewed with patient. Okay to raise arm above head at 2 weeks if you drainshave all been removed and you do not have any wound healing issues. No heavy lifting/pushing/pulling greater than 10 lbs for 4 weeks after surgery. Do not perform hydrogenation operator such as laundry andvacuuming. Do not perform yard work. no core exercises for 6-8 weeks following abdominal surgery -Continue surgical bra, okay for soft bra/sports bra at 2 weeks, no underwire -Continue abdominal binder, compression garment- okay for spanx type garment -No water submersion/baths until all incisions are fully healed -Okay for driving if not taking any narcotic pain medication and you feel safe to maneuver a car -apply silvadene ointment to incision and cover with dry dressing BID until healed -okay to sleep on your back and lie flat, do not sleep on the surgical side 3-4 weeks after recent procedure -Okay for tylenol alternating with ibuprofen for pain control (do not exceed 4 g tylenol in a 24 hour period, okay for ibuprofen 600-800 mg every 8 hours as needed for pain) [facility] questions or concerns. If experiencing wound complications or have any questions or concerns during business hours call [phone] or after hours (after 5 pm or on the weekend) call [phone] and ask for the plastic surgery resident / fellow carbon paper coating supervisor for further instructions. If you have increasing swelling or bruising, particularly one side greater than the other. If swelling and redness persists after a few days. If you have increased redness along the incision. If you have severe or increased pain not relieved by medication. If you have an oral temperature of 100.4 degrees or higher. If you have any yellow or greenish drainage from the incisions or notice a foul smell. If you have bleeding from the incisions that is difficult to control with light pressure If you have new chest pain, shortness of breathe or difficulty breathing documented in this encounterThe [facility]02[facility] History of Present illness Narrative* Bnony Henry APRN.CNP - 03/24/2024 11:00 AM EST Plastic Surgery Post Op Note CC: post op HPI: Raul Chong is a 43 year old female who presents s/p Date of Surgery: 03/14/24 Surgery: Panniculectomy Time Postop: 10 days Pt presents for initial post-op visit. Pt reports that pain is worse that she has ever had, but sheis pushing through it. She reports her drainage from the DERRICK has increased over the past 2 days Pain: control is good with medication. 5/. Pt is taking Ultram and tylenol Drainage from incisions: denies Fever/chills: denies Antibiotics: no Drain output: Derrick drain with greater than 60 cc x 2 days Activity: able to participate in ADLs within recommended restrictions Appetite: good No concerns Surgical pathology reviewed Component FINAL DIAGNOSIS Soft tissue, abdominal pannus, resection: - Skin with abundant subcutaneous adipose tissue. PAST MEDICAL HISTORY Diagnosis Date Autoimmune disease [...] tendon lengthening TONSILLECTOMY PRIMARY/SECONDARY <AGE 11 Tonsillectomy Current Outpatient Medications on File Prior to Visit Medication Sig traMADol (ULTRAM) 50 mg tablet Take 1 tablet by mouth two times a day as needed for pain for up to 7 days. acetaminophen (TYLENOL) 500 mg tablet Take 2 tablets by mouth every 6 hours for 5 days, THEN 1-2 tablets every 6 hours as needed for pain for up to 10 days. senna (SENOKOT) 8.6 mg tab Take 1 tablet by mouth two times a day as needed for constipation for upto 15 days. Nebulizer Accessories kit 1 Units once daily as needed. albuterol (PROVENTIL) 2.5 mg /3 mL (0.083 %) nebulizer solution Use 3 mL via nebulizer every 4 hours as needed for wheezing/shortness of breath. Use over 5-15minutes. sertraline (ZOLOFT) 50 mg tablet Take 1 tablet by mouth once daily. hydrOXYzine HCl (ATARAX) 25 mg tablet Take 1 tablet by mouth three times a day as needed for itching/rash. pregabalin (LYRICA) 75 mg capsule Take 1 capsule by mouth once daily for 180 days. calcium carbonate 400 mg (1,000 mg) chew Take 1,000 mg by mouth once daily. ferrous sulfate (IRON) 325 mg (65 mg iron) tablet Take 325 mg by mouth once daily. valACYclovir (VALTREX) 500 mg tablet Take 4 tablets twice daily X 1 day. Then start one tablet by mouth daily thereafter. SUMAtriptan (IMITREX) 100 mg tablet Take 1 tablet (100 mg) by mouth as needed. START AT ONSET OF HEADACHE. MAY REPEAT DOSE AFTER 2 HOURS. cyanocobalamin (VITAMIN B-12) 100 mcg tab Take 100 mcg by mouth once daily. ergocalciferol, vitamin D2, (VITAMIN D2 ORAL) Take by mouth. MULTIVITAMIN NO.43-IRON-FA ORAL Take by mouth. albuterol (PROVENTIL) 2.5 mg /3 mL (0.083 %) nebulizer solution Use 3 mL via nebulizer every 4 hours as needed for wheezing/shortness of breath. No current facility-administered medications on file prior to visit. LMP 02/23/2024 (Approximate) PE Alert and oriented in NAD on room air Abdominal DERRICK drain intact, patent, draining ss drainage abdominal incisions c/d/I, No s/s of infection ASSESSMENT/PLAN: Expected post operative course Doing well -Reviewed surgical pathology with the patient - Do not remove dressing, okay to reinforce w/ Tegaderm. Tegaderm's given to patient today - Continue to record remaining DERRICK drain output in cc's or ml's. -Shower regularly to keep the incisions clean and inspect for signs of infection (due to decreased sensation) -Walking is encouraged, this helps to reduce swelling and lowers the chance of blood clots. If you were prescribed anticoagulation post operatively, please complete course as instructed -Activity restrictions reviewed with patient. Okay to raise arm above head at 2 weeks if you drainshave all been removed and you do not have any wound healing issues. No heavy lifting/pushing/pulling greater than 10 lbs for 4 weeks after surgery. Do not perform hydrogenation operator such as laundry andvacuuming. Do not perform yard work. no core exercises for 6-8 weeks following abdominal surgery -Continue surgical bra, okay for soft bra/sports bra at 2 weeks, no underwire -Continue abdominal binder, compression garment- okay for spanx type garment -No water submersion/baths until all incisions are fully healed -Okay for driving if not taking any narcotic pain medication and you feel safe to maneuver a car -apply silvadene ointment to incision and cover with dry dressing BID until healed -okay to sleep on your back and lie flat, do not sleep on the surgical side 3-4 weeks after recent procedure -Okay for tylenol alternating with ibuprofen for pain control (do not exceed 4 g tylenol in a 24 hour period, okay for ibuprofen 600-800 mg every 8 hours as needed for pain) [facility] for all non-urgent questions or concerns. If experiencing wound complications or have any questions or concerns during business hours call [phone] or after hours (after 5 pm or on the weekend) call [phone] and ask for the plastic surgery resident / fellow carbon paper coating supervisor for further instructions. If you have increasing swelling or bruising, particularly one side greater than the other. If swelling and redness persists after a few days. If you have increased redness along the incision. If you have severe or increased pain not relieved by medication. If you have an oral temperature of 100.4 degrees or higher. If you have any yellow or greenish drainage from the incisions or notice a foul smell. If you have bleeding from the incisions that is difficult to control with light pressure If you have new chest pain, shortness of breathe or difficulty breathing Return to clinic in 1 week(s) Bonny Henry APRN.CNP March 24, 2024 documented in this encounterThe [facility]02[facility]25 NoteHNO ID: [id number] Author: BONNY HENRY APRN.CNP Service: ? Author Type: Nurse Practitioner Type: Progress Notes Filed: 03/24/2024 11:52 Note Text: Plastic Surgery Post Op Note CC: post op HPI: Raul Chong is a 43 year old female who presents s/p Date of Surgery: 03/14/24 Surgery: Panniculectomy Time Postop: 10 days Pt presents for initial post-op visit. Pt reports that pain is worse that she has ever had, but she is pushing through it. She reports her drainage from the DERRICK has increased over the past 2 days Pain: control is good with medication. 5/5. Pt is taking Ultram and tylenol Drainage from incisions: denies Fever/chills: denies Antibiotics: no Drain output: Derrick drain with greater than 60 cc x 2 days Activity: able to participate in ADLs within recommended restrictions Appetite: good No concerns Surgical pathology reviewed Component FINAL DIAGNOSIS Soft tissue, abdominal pannus, resection: - Skin with abundant subcutaneous adipose tissue. PAST MEDICAL HISTORY Diagnosis Date Autoimmune disease (HCC) Degeneration of intervertebral disc, site unspecified Depression Migraines Mild intermittent asthma Obesity Osteoarthritis of both knees Plantar fasciitis Psoriasis PAST SURGICAL HISTORY Procedure Laterality Date ADENOIDECTOMY PRIMARY Adenoidectomy DELIVERY ONLY , low cervical LAPAROSCOPY SURG CHOLECYSTECTOMY 2013 PAST SURGICAL HISTORY OF Bilateral arthoscopy to ankles, scar tissue removal and tendon lengthening TONSILLECTOMY PRIMARY/SECONDARY Tonsillectomy Current Outpatient Medications on File Prior to Visit Medication Sig traMADol (ULTRAM) 50 mg tablet Take 1 tablet by mouth two times a day as needed for pain for up to 7 days. acetaminophen (TYLENOL) 500 mg tablet Take 2 tablets by mouth every 6 hours for 5 days, THEN 1-2 tablets every 6 hours as needed for pain for up to 10 days. senna (SENOKOT) 8.6 mg tab Take 1 tablet by mouth two times a day as needed for constipation for up to 15 days. Nebulizer Accessories kit 1 Units once daily as needed. albuterol (PROVENTIL) 2.5 mg /3 mL (0.083 %) nebulizer solution Use 3 mL via nebulizer every 4 hours as needed for wheezing/shortness of breath. Use over 5-15minutes. sertraline (ZOLOFT) 50 mg tablet Take 1 tablet by mouth once daily. hydrOXYzine HCl (ATARAX) 25 mg tablet Take 1 tablet by mouth three times a day as needed for itching/rash. pregabalin (LYRICA) 75 mg capsule Take 1 capsule by mouth once daily for 180 days. calcium carbonate 400 mg (1,000 mg) chew Take 1,000 mg by mouth once daily. ferrous sulfate (IRON) 325 mg (65 mg iron) tablet Take 325 mg by mouth once daily. valACYclovir (VALTREX) 500 mg tablet Take 4 tablets twice daily X 1 day. Then start one tablet by mouth daily thereafter. SUMAtriptan (IMITREX) 100 mg tablet Take 1 tablet (100 mg) by mouth as needed. START AT ONSET OF HEADACHE. MAY REPEAT DOSE AFTER 2 HOURS. cyanocobalamin (VITAMIN B-12) 100 mcg tab Take 100 mcg by mouth once daily. ergocalciferol, vitamin D2, (VITAMIN D2 ORAL) Take by mouth. MULTIVITAMIN NO.43-IRON-FA ORAL Take by mouth. albuterol (PROVENTIL) 2.5 mg /3 mL (0.083 %) nebulizer solution Use 3 mL via nebulizer every 4 hours as needed for wheezing/shortness of breath. No current facility-administered medications on file prior to visit. LMP 02/23/2024 (Approximate) PE Alert and oriented in NAD on room air Abdominal DERRICK drain intact, patent, draining ss drainage abdominal incisions c/d/I, No s/s of infection ASSESSMENT/PLAN: Expected post operative course Doing well -Reviewed surgical pathology with the patient - Do not remove dressing, okay to reinforce w/ Tegaderm. Tegaderm's given to patient today - Continue to record remaining DERRICK drain output in cc's or ml's. -Shower regularly to keep the incisions clean and inspect for signs of infection (due to decreased sensation) -Walking is encouraged, this helps to reduce swelling and lowers the chance of blood clots. If you were prescribed anticoagulation post operatively, please complete course as instructed -Activity restrictions reviewed with patient. Okay to raise arm above head at 2 weeks if you drains have all been removed and you do not have any wound healing issues. No heavy lifting/pushing/pulling greater than 10 lbs for 4 weeks after surgery. Do not perform hydrogenation operator such as laundry and vacuuming. Do not perform yard work. no core exercises for 6-8 weeks following abdominal surgery -Continue surgical bra, okay for soft bra/sports bra at 2 weeks, no underwire -Continue abdominal binder, compression garment- okay for spanx type garment -No water submersion/baths until all incisions are fully healed -Okay for driving if not taking any narcotic pain medication and you feel safe to maneuver a car -apply silvadene ointment to incision and cover with dry dressing BID until healed - (more content not included)...[facility]* Addendum Note - Alexia Brian RN - 03/21/2024 1:14 PM ESTAddended by: ALEXIA BRIAN on: 03/21/2024 01:14 PM Modules accepted: Orders [facility]02-10-[facility] Miscellaneous Notes* Addendum Note - Alexia Brian RN - 03/21/2024 1:14 PM ESTAddended by: ALEXIA BRIAN on: 03/21/2024 01:14 PM Modules accepted: Orders * Telephone Encounter - Alexia Brian RN - 03/21/2024 1:07 PM EST Reviewed photos. No signs or symptoms of infection at this time. Discussed after abdominal surgeries there can be sometightness which should improve in time. Patient states she is taking 1000 mg of tylenol every 6 hours. States in the past higher doses of tylenol have caused upset stomach so she thinks this is the cause. Has been weaning off of the oxycodone and has not taken it over the past few days. Discussed alternating tramadol and decreased tylenol dose to see if this helps with her GI upset. Discussed not taking the tramadol at the same time as oxycodone. Patient aware. Red flag sx discussed No further questions or concerns at this time * Telephone Encounter - Alexia Brian RN - 03/21/2024 11:52 AM EST Called patient States she has had stomach pain, diarrhea and nausea that come and go. Had one last night that lasted about an hour and again this morning. Denies fever/chills or drainage from her incisions. Is wondering if the tylenol is affecting her stomach but she cannot take NSAIDs s/p gastric bypass Will send photo of her incision for review. Will follow up after. No further questions or concerns at this time * Telephone Encounter - Rachna Lynn - 03/21/2024 11:06 AM EST Having really bad nausea and stomach cramps, diarrhea. She is not take oxycodone. She is wondering if the Tylenol is upsetting her stomach. The area around the incision is turning dark red/pink color. She asked if this is normal. There is no warmth or discharge. She is experiencing a burning sensation around the incision when she sits down after standing. She asked if this was normal. Please call to advise. documented in this [facility]The [facility] Telephone encounter Note * Telephone Encounter - Alexia Brian RN - 03/21/2024 1:07 PM EST Reviewed photos. No signs or symptoms of infection at this time. Discussed after abdominal surgeries there can be sometightness which should improve in time. Patient states she is taking 1000 mg of tylenol every 6 hours. States in the past higher doses of tylenol have caused upset stomach so she thinks this is the cause. Has been weaning off of the oxycodone and has not taken it over the past few days. Discussed alternating tramadol and decreased tylenol dose to see if this helps with her GI upset. Discussed not taking the tramadol at the same time as oxycodone. Patient aware. Red flag sx discussed No further questions or concerns at this time [facility] Telephone encounter Note* Telephone Encounter - Alexia Brian RN - 03/21/2024 11:52 AM EST Called patient States she has had stomach pain, diarrhea and nausea that come and go. Had one last night that lasted about an hour and again this morning. Denies fever/chills or drainage from her incisions. Is wondering if the tylenol is affecting her stomach but she cannot take NSAIDs s/p gastric bypass Will send photo of her incision for review. Will follow up after. No further questions or concerns at this time [facility]02-10-2025 Telephone encounter Note* Telephone Encounter - Rachna Lynn - 03/21/2024 11:06 AM EST Having really bad nausea and stomach cramps, diarrhea. She is not take oxycodone. She is wondering if the Tylenol is upsetting her stomach. The area around the incision is turning dark red/pink color. She asked if this is normal. There is no warmth or discharge. She is experiencing a burning sensation around the incision when she sits down after standing. She asked if this was normal. Please call to advise. [facility]02-03-2025 NoteHNO ID: [id number] Author: LIBIA STEEN SRNA Service: ? Author Type: Student Type: Anesthesia Procedure Notes Filed: 03/14/2024 08:54 Note Text: ANESTHESIOLOGY PROCEDURE NOTE Airway General Information Procedure Start Time/Medication Administration: 03/14/2024 8:06 AM Procedure End Time: 03/14/2024 8:07 AM Patient location during procedure: OR Timeout Performed Pre-procedure: timeout performed Consent Obtained: Yes Patient identity confirmed: arm band and patient Staffing Anesthesiologist: Leeroy Joy MD SRNA: Libia Steen SRNA Performed by: CARMEN Indications and Patient Condition Indications for airway management: anesthesia and airway protection Preoxygenated: yes anesthesia circuit Patient position: sniffing Method: asleep Difficult Mask: No Airway Accessory: oral airway (90 mm) Final Airway Details Final airway type: endotracheal airway Final Endotracheal Airway: ETT Cuffed: yes Successful intubation technique: direct laryngoscopy Endotracheal tube insertion site: oral Blade: [place] Blade size: #3 ETT size (mm): 7.0 Measured from: lips Measurement (cm): 21 Placement verified by: capnometry Cormack-Lehane Classification: grade I - full view of glottis Number of attempts at approach: 1 Airway trauma: atraumatic. Failed airway: no Unrecognized esophageal intubation: no Airway not difficult SIGNATURE: CARMEN Be PATIENT NAME: Raul Chong DATE: March 14, 2024 TIME: 8:25 AM [facility]: [id number] History of Present illness Narrative* Jae Sterling MD - 03/10/2024 11:30 AM EST Plastic Surgery Note CC: pre op HPI: Raul Chong is a 43 year old female who presents for pre op for panniculectomy, she is scheduled 03/14/2024. Patient is s/p Date of Surgery: 10/01/21 Surgery: Laparoscopic gastric bypass Time Postop: 2 years, 5 months Highest weight: 424 lbs Current weight: 180 lbs Denies history of abdominal hernia. Patient has history of abdominal surgery: gallbladder surgery, gastric bypass, and 2 c-sections Hx bleeding/clotting: denies Hx recurrent miscarriages: denies Hx smoking: quit vaping 6 weeks ago, 3 weeks ago vaped for a few days. Nicotine labs from [facility] not complete at this time Pt was seen for PACC and cleared but pt recently positive with influenza A 02/28/2024 seen in [facility] and prescribed Tamiflu. HISTORIES PAST MEDICAL HISTORY Diagnosis Date Autoimmune disease [...] tendon lengthening TONSILLECTOMY PRIMARY/SECONDARY <AGE 11 Tonsillectomy Current Outpatient Medications on File Prior to Visit Medication Sig Nebulizer Accessories kit 1 Units once daily as needed. albuterol (PROVENTIL) 2.5 mg /3 mL (0.083 %) nebulizer solution Use 3 mL via nebulizer every 4 hours as needed for wheezing/shortness of breath. Use over 5-15minutes. sertraline (ZOLOFT) 50 mg tablet Take 1 tablet by mouth once daily. hydrOXYzine HCl (ATARAX) 25 mg tablet Take 1 tablet by mouth three times a day as needed for itching/rash. pregabalin (LYRICA) 75 mg capsule Take 1 capsule by mouth once daily for 180 days. calcium carbonate 400 mg (1,000 mg) chew Take 1,000 mg by mouth once daily. ferrous sulfate (IRON) 325 mg (65 mg iron) tablet Take 325 mg by mouth once daily. valACYclovir (VALTREX) 500 mg tablet Take 4 tablets twice daily X 1 day. Then start one tablet by mouth daily thereafter. SUMAtriptan (IMITREX) 100 mg tablet Take 1 tablet (100 mg) by mouth as needed. START AT ONSET OF HEADACHE. MAY REPEAT DOSE AFTER 2 HOURS. cyanocobalamin (VITAMIN B-12) 100 mcg tab Take 100 mcg by mouth once daily. ergocalciferol, vitamin D2, (VITAMIN D2 ORAL) Take by mouth. MULTIVITAMIN NO.43-IRON-FA ORAL Take by mouth. albuterol (PROVENTIL) 2.5 mg /3 mL (0.083 %) nebulizer solution Use 3 mL via nebulizer every 4 hours as needed for wheezing/shortness of breath. No current facility-administered medications on file prior to visit. Allergies: ALLERGIES Allergen Reactions Gabapentin Other: See Comments Prednisone Mental Status Change Lexapro [Escitalopr* Mental Status Change Severe moust[place] [employer] Poll* Other: See Comments Topamax [Topiramate] Other: See Comments anxiety FAMILY HISTORY Problem Relation Age of Onset Diabetes Maternal Grandmother Diabetes Maternal Uncle Social History Tobacco Use Smoking status: Former Current packs/day: 0.00 Average packs/day: 0.3 packs/day for 24.0 years (6.0 ttl pk-yrs) Types: Cigarettes Start date: 03/19/1990 Quit date: 2015 Years since quittin.0 Smokeless tobacco: Never Tobacco comments: Quit in 2014, does vape daily Vaping Use Vaping status: current everyday user Start date: 08/10/2023 Substances: Nicotine Devices: Disposable Substance Use Topics Alcohol use: Not Currently Comment: rarely Drug use: No REVIEW OF SYSTEMS As above General: No weight loss, fever, chills, malaise Cardiac: No CP, palpitations, or leg swelling Respiratory: No cough or SOB GI: No N/V or diarrhea, no blood in stool : No burning or frequency with urination, no blood in urine Hematology: No blood thinners All other reviewed and negative other than HPI. PHYSICAL EXAM: LMP 02/26/2024 (Within Days) GEN: Well appearing, alert, in no acute distress, well-hydrated, well nourished. No change in exam Assessment: Raul Chong is a 43 year old female who presents for pre op of panniculectomy. Scheduled for 03/14/2024 for Panniculectomy Nicotine testing previously ordered, to be done today Plan: Wait for testing results prior to surgery The patient was seen with Alexia Brian RN who performed the Review of Systems and Past/Family/Social History. I have reviewed these and agree with her findings. The History and Physical as taken by me are documented above and/or dictated below. The patient is seen and examined by Dr. Sterling and the following reflects his service. Scribed by Esther Ruiz I agree with the Chief Complaint, ROS, and Past Histories independently gathered by the clinical forestry support specialist and the remaining scribed note accurately describes my personal service to the patient. 30 minutes total visit spent face to face with patient. Greater than 50% of the time was spent for counseling and coordination of care, discussing treatment options and recommendations. By signing my name below, IEsther, attest that this documentation has been prepared underthe direction and in the presence of Jae Ferguson MD Electronically signed, Xiomara Traylor March 10, 2024 12:44 PM Provider Attestation: Jae Little MD, personally performed the services described in this documentation. All medical record entries made by the scribe were at my direction and in my presence. I have reviewed the chart and discharge instructions (if applicable) and agree that the record reflects my personal performance and is accurate and complete. Dr. Jae Sterling MD March 17, 2024 2:13 PM documented in this encounterThe [facility] NoteHNO ID: [id number] Author: JAE STERLING MD Service: ? Author Type: Physician Type: Progress Notes Filed: 03/17/2024 14:13 Note Text: Plastic Surgery Note CC: pre op HPI: Raul Chong is a 43 year old female who presents for pre op for panniculectomy, she is scheduled 03/14/2024. Patient is s/p Date of Surgery: 10/01/21 Surgery: Laparoscopic gastric bypass Time Postop: 2 years, 5 months Highest weight: 424 lbs Current weight: 180 lbs Denies history of abdominal hernia. Patient has history of abdominal surgery: gallbladder surgery, gastric bypass, and 2 c-sections Hx bleeding/clotting: denies Hx recurrent miscarriages: denies Hx smoking: quit vaping 6 weeks ago, 3 weeks ago vaped for a few days. Nicotine labs from [facility] not complete at this time Pt was seen for PACC and cleared but pt recently positive with influenza A 02/28/2024 seen in [facility] and prescribed Tamiflu. HISTORIES PAST MEDICAL HISTORY Diagnosis Date Autoimmune disease (HCC) Degeneration of intervertebral disc, site unspecified Depression Migraines Mild intermittent asthma Obesity Osteoarthritis of both knees Plantar fasciitis Psoriasis PAST SURGICAL HISTORY Procedure Laterality Date ADENOIDECTOMY PRIMARY Adenoidectomy DELIVERY ONLY , low cervical LAPAROSCOPY SURG CHOLECYSTECTOMY 2013 PAST SURGICAL HISTORY OF Bilateral arthoscopy to ankles, scar tissue removal and tendon lengthening TONSILLECTOMY PRIMARY/SECONDARY Tonsillectomy Current Outpatient Medications on File Prior to Visit Medication Sig Nebulizer Accessories kit 1 Units once daily as needed. albuterol (PROVENTIL) 2.5 mg /3 mL (0.083 %) nebulizer solution Use 3 mL via nebulizer every 4 hours as needed for wheezing/shortness of breath. Use over 5-15minutes. sertraline (ZOLOFT) 50 mg tablet Take 1 tablet by mouth once daily. hydrOXYzine HCl (ATARAX) 25 mg tablet Take 1 tablet by mouth three times a day as needed for itching/rash. pregabalin (LYRICA) 75 mg capsule Take 1 capsule by mouth once daily for 180 days. calcium carbonate 400 mg (1,000 mg) chew Take 1,000 mg by mouth once daily. ferrous sulfate (IRON) 325 mg (65 mg iron) tablet Take 325 mg by mouth once daily. valACYclovir (VALTREX) 500 mg tablet Take 4 tablets twice daily X 1 day. Then start one tablet by mouth daily thereafter. SUMAtriptan (IMITREX) 100 mg tablet Take 1 tablet (100 mg) by mouth as needed. START AT ONSET OF HEADACHE. MAY REPEAT DOSE AFTER 2 HOURS. cyanocobalamin (VITAMIN B-12) 100 mcg tab Take 100 mcg by mouth once daily. ergocalciferol, vitamin D2, (VITAMIN D2 ORAL) Take by mouth. MULTIVITAMIN NO.43-IRON-FA ORAL Take by mouth. albuterol (PROVENTIL) 2.5 mg /3 mL (0.083 %) nebulizer solution Use 3 mL via nebulizer every 4 hours as needed for wheezing/shortness of breath. No current facility-administered medications on file prior to visit. Allergies: ALLERGIES Allergen Reactions Gabapentin Other: See Comments Prednisone Mental Status Change Lexapro [Escitalopr* Mental Status Change Severe moustapha Tree And Shrub Poll* Other: See Comments Topamax [Topiramate] Other: See Comments anxiety FAMILY HISTORY Problem Relation Age of Onset Diabetes Maternal Grandmother Diabetes Maternal Uncle Social History Tobacco Use Smoking status: Former Current packs/day: 0.00 Average packs/day: 0.3 packs/day for 24.0 years (6.0 ttl pk-yrs) Types: Cigarettes Start date: 03/19/1990 Quit date: 2015 Years since quittin.0 Smokeless tobacco: Never Tobacco comments: Quit in 2014, does vape daily Vaping Use Vaping status: current everyday user Start date: 08/10/2023 Substances: Nicotine Devices: Disposable Substance Use Topics Alcohol use: Not Currently Comment: rarely Drug use: No REVIEW OF SYSTEMS As above General: No weight loss, fever, chills, malaise Cardiac: No CP, palpitations, or leg swelling Respiratory: No cough or SOB GI: No N/V or diarrhea, no blood in stool : No burning or frequency with urination, no blood in urine Hematology: No blood thinners All other reviewed and negative other than HPI. PHYSICAL EXAM: LMP 02/26/2024 (Within Days) GEN: Well appearing, alert, in no acute distress, well-hydrated, well nourished. No change in exam Assessment: Raul Chong is a 43 year old female who presents for pre op of panniculectomy. Scheduled for 03/14/2024 for Panniculectomy Nicotine testing previously ordered, to be done today Plan: Wait for testing results prior to surgery The patient was seen with Alexia Brian RN who performed the Review of Systems and Past/Family/Social History. I have reviewed these and agree with her findings. The History and Physical as taken by me are documented above and/or dictated below. The patient is seen and examined by Dr. Sterling and the following reflects his service. Scribed by Esther Ruiz I agree with (more content not included)...[facility]* Diagnosis Onset Date Resolution Status Admit Date Cervical radiculopathy acute [facility] 2024 10:31am Degenerative disc disease, cervical noneactive March 08 10:31am [facility] Work Phone: [phone] 336-253101-22-2025 Telephone encounter Note* Telephone Encounter - Mary Moura APRN.CNP - 03/02/2024 9:46 AM EST FYI. Pt was seen for PACC and cleared but pt recently positive with influenza A 02/28/2024 seen in [facility] and prescribed Tamiflu. Pt is scheduled for Panniculectomy 03/14/2024 in [place]. Please advise if okay to proceed? [facility]01-22[facility] Miscellaneous Notes* Telephone Encounter - Mary Moura APRN.CNP - 03/02/2024 9:46 AM EST FYI. Pt was seen for PACC and cleared but pt recently positive with influenza A 02/28/2024 seen in [facility] and prescribed Tamiflu. Pt is scheduled for Panniculectomy 03/14/2024 in [place]. Please advise if okay to proceed? documented in this encounterThe [facility]01-20-[facility] Telephone encounter Note * Telephone Encounter - Liz Kim RN - 02/29/2024 4:22 PM EST Jenny from [facility] calling and states received Nebulizer supplies prescription but nodiagnosis code on it. Can we please resend script with diagnosis codes? New order pended with dx codes. Can be escripted. [facility]01-20[facility] Miscellaneous Notes* Telephone Encounter - Liz Kim RN - 02/29/2024 4:22 PM EST Jenny from [facility] calling and states received Nebulizer supplies prescription but nodiagnosis code on it. Can we please resend script with diagnosis codes? New order pended with dx codes. Can be escripted. documented in this encounterThe [facility]01-19-2025 NoteHNO ID: [id number] Author: OCTAVIANO AYOUB PA Service: ? Author Type: Physician Field Service Poultry Technician Type: Progress Notes Filed: 02/28/2024 15:02 Note Text: This note was created using [id number]. Subjective Raul Chong is a 43 year old female. HPI 43-year-old female with PMH of asthma presents for concern for influenza. Patient states that her kids have influenza currently. She started getting body aches, fever, chills, cough, congestion this morning. She has not taken anything for symptoms. No other complaint. PAST MEDICAL HISTORY Diagnosis Date Autoimmune disease (HCC) Degeneration of intervertebral disc, site unspecified Depression Migraines Mild intermittent asthma Obesity Osteoarthritis of both knees Plantar fasciitis Psoriasis PAST SURGICAL HISTORY Procedure Laterality Date ADENOIDECTOMY PRIMARY Adenoidectomy DELIVERY ONLY , low cervical LAPAROSCOPY SURG CHOLECYSTECTOMY 2013 PAST SURGICAL HISTORY OF Bilateral arthoscopy to ankles, scar tissue removal and tendon lengthening TONSILLECTOMY PRIMARY/SECONDARY Tonsillectomy ALLERGIES Gabapentin, Prednisone, Lexapro [Escitalopram], Tree And Shrub Pollen, and Topamax [Topiramate] MEDICATIONS sertraline (ZOLOFT) 50 mg tablet Take 1 tablet by mouth once daily. hydrOXYzine HCl (ATARAX) 25 mg tablet Take 1 tablet by mouth three times a day as needed for itching/rash. pregabalin (LYRICA) 75 mg capsule Take 1 capsule by mouth once daily for 180 days. calcium carbonate 400 mg (1,000 mg) chew Take 1,000 mg by mouth once daily. ferrous sulfate (IRON) 325 mg (65 mg iron) tablet Take 325 mg by mouth once daily. valACYclovir (VALTREX) 500 mg tablet Take 4 tablets twice daily X 1 day. Then start one tablet by mouth daily thereafter. SUMAtriptan (IMITREX) 100 mg tablet Take 1 tablet (100 mg) by mouth as needed. START AT ONSET OF HEADACHE. MAY REPEAT DOSE AFTER 2 HOURS. cyanocobalamin (VITAMIN B-12) 100 mcg tab Take 100 mcg by mouth once daily. ergocalciferol, vitamin D2, (VITAMIN D2 ORAL) Take by mouth. MULTIVITAMIN NO.43-IRON-FA ORAL Take by mouth. albuterol (PROVENTIL) 2.5 mg /3 mL (0.083 %) nebulizer solution Use 3 mL via nebulizer every 4 hours as needed for wheezing/shortness of breath. oseltamivir (TAMIFLU) 75 mg capsule Take 1 capsule by mouth two times a day for 5 days. albuterol (PROVENTIL) 2.5 mg /3 mL (0.083 %) nebulizer solution Use 3 mL via nebulizer every 4 hours as needed for wheezing/shortness of breath. Use over 5-15minutes. Nebulizer Accessories kit 1 Units once daily as needed. FAMILY HISTORY Problem Relation Age of Onset Diabetes Maternal Grandmother Diabetes Maternal Uncle Social History Tobacco Use Smoking status: Former Current packs/day: 0.00 Average packs/day: 0.3 packs/day for 24.0 years (6.0 ttl pk-yrs) Types: Cigarettes Start date: 03/19/1990 Quit date: 2015 Years since quittin.0 Smokeless tobacco: Never Tobacco comments: Quit in 2014, does vape daily Vaping Use Vaping status: current everyday user Start date: 08/10/2023 Substances: Nicotine Devices: Disposable Substance Use Topics Alcohol use: Not Currently Comment: rarely Drug use: No Review of Systems Constitutional: Positive for chills and fever. HENT: Positive for congestion. Negative for ear pain and sore throat. Respiratory: Positive for cough. Negative for shortness of breath. Cardiovascular: Negative for chest pain. Gastrointestinal: Negative for diarrhea and vomiting. Objective BP 103/69 Pulse 84 Temp (!) 38 ?C (100.4 ?F) Resp 22 Wt 82 kg (180 lb 12.4 oz) LMP 02/26/2024 (Within Days) SpO2 98% BMI 27.49 kg/m? Physical Exam Vitals and nursing note reviewed. Constitutional: General: She is not in acute distress. Appearance: Normal appearance. She is not toxic-appearing. HENT: Right Ear: Tympanic membrane and ear canal normal. Left Ear: Tympanic membrane and ear canal normal. Nose: Nose normal. Mouth/Throat: Mouth: Mucous membranes are moist. Eyes: Conjunctiva/sclera: Conjunctivae normal. Cardiovascular: Rate and Rhythm: Normal rate and regular rhythm. Pulmonary: Effort: Pulmonary effort is normal. Breath sounds: Normal breath sounds. No wheezing, rhonchi or rales. Skin: General: Skin is warm and dry. Neurological: Mental Status: She is alert. Assessment and Plan ASSESSMENT/PLAN: 1. Flu-like symptoms - ICD9: 780.99, ICD10: R68.89 (primary diagnosis) - INFLUENZA AANDB MOLECULAR (POC)-positive for influenza A. 2. Influenza A - ICD9: 487.1, ICD10: J10.1 -Rx for Tamiflu. Normal kidney function on labs earlier this month -Patient needs refill on albuterol nebulizer solution and tubing. Rx for this placed Diagnosis and treatment plan were discussed and questions were answered to the patient's satisfaction. Pt acknowledged understanding of concepts and follow up plan. Specific signs and symptoms that would lula (more content not included)... [facility] History of Present illness Narrative* Octaviano Ayoub PA - 02/28/2024 3:01 PM EST This note was created using NoteWriter. Subjective Raul Chong is a 43 year old female. HPI 43-year-old female with PMH of asthma presents for concern for influenza. Patient states that her kids have influenza currently. She started getting body aches, fever, chills, cough, congestion this morning. She has not taken anything for symptoms. No other complaint. PAST MEDICAL HISTORY Diagnosis Date Autoimmune disease [...] lengthening TONSILLECTOMY PRIMARY/SECONDARY <AGE 12 Tonsillectomy ALLERGIES Gabapentin, Prednisone, Lexapro [Escitalopram], Tree And Shrub Pollen, and Topamax [Topiramate] MEDICATIONS sertraline (ZOLOFT) 50 mg tablet Take 1 tablet by mouth once daily. hydrOXYzine HCl (ATARAX) 25 mg tablet Take 1 tablet by mouth three times a day as needed for itching/rash. pregabalin (LYRICA) 75 mg capsule Take 1 capsule by mouth once daily for 180 days. calcium carbonate 400 mg (1,000 mg) chew Take 1,000 mg by mouth once daily. ferrous sulfate (IRON) 325 mg (65 mg iron) tablet Take 325 mg by mouth once daily. valACYclovir (VALTREX) 500 mg tablet Take 4 tablets twice daily X 1 day. Then start one tablet by mouth daily thereafter. SUMAtriptan (IMITREX) 100 mg tablet Take 1 tablet (100 mg) by mouth as needed. START AT ONSET OF HEADACHE. MAY REPEAT DOSE AFTER 2 HOURS. cyanocobalamin (VITAMIN B-12) 100 mcg tab Take 100 mcg by mouth once daily. ergocalciferol, vitamin D2, (VITAMIN D2 ORAL) Take by mouth. MULTIVITAMIN NO.43-IRON-FA ORAL Take by mouth. albuterol (PROVENTIL) 2.5 mg /3 mL (0.083 %) nebulizer solution Use 3 mL via nebulizer every 4 hours as needed for wheezing/shortness of breath. oseltamivir (TAMIFLU) 75 mg capsule Take 1 capsule by mouth two times a day for 5 days. albuterol (PROVENTIL) 2.5 mg /3 mL (0.083 %) nebulizer solution Use 3 mL via nebulizer every 4 hours as needed for wheezing/shortness of breath. Use over 5-15minutes. Nebulizer Accessories kit 1 Units once daily as needed. FAMILY HISTORY Problem Relation Age of Onset Diabetes Maternal Grandmother Diabetes Maternal Uncle Social History Tobacco Use Smoking status: Former Current packs/day: 0.00 Average packs/day: 0.3 packs/day for 24.0 years (6.0 ttl pk-yrs) Types: Cigarettes Start date: 03/19/1990 Quit date: 2014 Years since quittin.0 Smokeless tobacco: Never Tobacco comments: Quit in 2015, does vape daily Vaping Use Vaping status: current everyday user Start date: 08/10/2023 Substances: Nicotine Devices: Disposable Substance Use Topics Alcohol use: Not Currently Comment: rarely Drug use: No Review of Systems Constitutional: Positive for chills and fever. HENT: Positive for congestion. Negative for ear pain and sore throat. Respiratory: Positive for cough. Negative for shortness of breath. Cardiovascular: Negative for chest pain. Gastrointestinal: Negative for diarrhea and vomiting. Objective BP 103/69 Pulse 84 Temp (!) 38 C (100.4 F) Resp 22 Wt 82 kg (180 lb 12.4 oz) LMP 02/26/2024 (Within Days) SpO2 98% BMI 27.49 kg/m Physical Exam Vitals and nursing note reviewed. Constitutional: General: She is not in acute distress. Appearance: Normal appearance. She is not toxic-appearing. HENT: Right Ear: Tympanic membrane and ear canal normal. Left Ear: Tympanic membrane and ear canal normal. Nose: Nose normal. Mouth/Throat: Mouth: Mucous membranes are moist. Eyes: Conjunctiva/sclera: Conjunctivae normal. Cardiovascular: Rate and Rhythm: Normal rate and regular rhythm. Pulmonary: Effort: Pulmonary effort is normal. Breath sounds: Normal breath sounds. No wheezing, rhonchi or rales. Skin: General: Skin is warm and dry. Neurological: Mental Status: She is alert. Assessment and Plan ASSESSMENT/PLAN: 1. Flu-like symptoms - ICD9: 780.99, ICD10: R68.89 (primary diagnosis) - INFLUENZA A&B MOLECULAR (POC)-positive for influenza A. 2. Influenza A - ICD9: 487.1, ICD10: J10.1 -Rx for Tamiflu. Normal kidney function on labs earlier this month -Patient needs refill on albuterol nebulizer solution and tubing. Rx for this placed Diagnosis and treatment plan were discussed and questions were answered to the patient's satisfaction. Pt acknowledged understanding of concepts and follow up plan. Specific signs and symptoms that would indicate the need for higher level of care were discussed in detail warranting prompt ER evaluation. FRANCISCO Lal documented in this encounterThe [facility]01-[facility] Telephone encounter Note * Telephone Encounter - Bobbi Fitzgerald RN - 02/28/2024 10:25 AM EST Reason for Call: Fever, headache, neck pain, cough, runny nose Outcome: See PCP within 24 hours. Advised Urgent / Express Care if no appointments available. Patient acknowledges understanding, declines transfer to Appointment Center, states she will go to [facility]. Reason for Disposition Patient is HIGH RISK (e.g., age > 64 years, , HIV+, or chronic medical condition) Nursing judgment - See PCP within 24 hours - Patient history of asthma with bronchitis and in need of nebulizer tubing for albuterol Answer Assessment - Initial Assessment Questions 1. WORST SYMPTOM: Fever, headache, neck pain, cough 2. ONSET: 02/28/24 12 AM 3. COUGH: Productive cough 4. RESPIRATORY DISTRESS: Hoarse voice 5. FEVER: 02/28/24 10:-6 AM 98.1F Axillary 6. EXPOSURE: Children have all been sick 7. FLU VACCINE: Yes, received 10/30/23 8. HIGH RISK DISEASE: Asthma with bronchitis. Bradycardia and tachycardia 9. : Denies . Last period 2 days ago. 010. OTHER SYMPTOMS: Runny nose Patient is drinking more than usual amount of fluids and urinating usual amount and frequency, lasturination 02/28/24 at 10 AM Zoloft and Xanax are medication changes within the past 30 days. Protocols used: Influenza (Flu) - [id number] [facility]01-19-2025 Miscellaneous Notes* Telephone Encounter - Bobbi Fitzgerald RN - 02/28/2024 10:25 AM EST Reason for Call: Fever, headache, neck pain, cough, runny nose Outcome: See PCP within 24 hours. Advised Urgent / Express Care if no appointments available. Patient acknowledges understanding, declines transfer to Appointment Center, states she will go to [facility]. Reason for Disposition Patient is HIGH RISK (e.g., age > 64 years, , HIV+, or chronic medical condition) Nursing judgment - See PCP within 24 hours - Patient history of asthma with bronchitis and in need of nebulizer tubing for albuterol Answer Assessment - Initial Assessment Questions 1. WORST SYMPTOM: Fever, headache, neck pain, cough 2. ONSET: 02/28/24 12 AM 3. COUGH: Productive cough 4. RESPIRATORY DISTRESS: Hoarse voice 5. FEVER: 02/28/24 10:-6 AM 98.1F Axillary 6. EXPOSURE: Children have all been sick 7. FLU VACCINE: Yes, received 10/30/23 8. HIGH RISK DISEASE: Asthma with bronchitis. Bradycardia and tachycardia 9. : Denies . Last period 2 days ago. 010. OTHER SYMPTOMS: Runny nose Patient is drinking more than usual amount of fluids and urinating usual amount and frequency, lasturination 02/28/24 at 10 AM Zoloft and Xanax are medication changes within the past 30 days. Protocols used: Influenza (Flu) - [id number] documented in this encounterThe [facility]01-[facility] Telephone encounter Note * Telephone Encounter - Rola Umanzor MSW - 02/25/2024 12:59 PM EST Sw spoke with patient and she reports that she is at home and has plenty of family members that she can stay with if needed. No other social service needs at this time. This Sw noted that if patient has any other needs to feel free to reach back out to this SW. [facility]01-16-[facility] Miscellaneous Notes* Telephone Encounter - Rola Umanzor MSW - 02/25/2024 12:59 PM EST David spoke with patient and she reports that she is at home and has plenty of family members that she can stay with if needed. No other social service needs at this time. This Sw noted that if patient has any other needs to feel free to reach back out to this SW. * Telephone Encounter - Rola Umanzor MSW - 02/23/2024 11:09 AM EST Sw left message for patient to return call to discuss housing resource needs. documented in this encounterThe [facility]01-[facility] Telephone encounter Note * Telephone Encounter - Rola Umanzor MSW - 02/23/2024 11:09 AM EST Sw left message for patient to return call to discuss housing resource needs. [facility]01-13-[facility] Instructions* Patient Instructions* Anna Nino APRN.CNP - 02/22/2024 12:55 PM EST - PRIMARY CARE SOCIAL WORK CONSULT - SERTRALINE 50 MG TABLET daily - HYDROXYZINE HCL 25 MG TABLET 3 x day as needed for anxiety - Give suicide hotline number documented in this encounterThe [facility]01-13-2025 NoteHNO ID: [id number] Author: ANNA NINO APRN.CNP Service: ? Author Type: Clinical Nurse Specialist Type: Progress Notes Filed: 02/22/2024 12:58 Note Text: This is a 43 year old female who presents today with: Patient presents with: Anxiety HISTORY OF PRESENT ILLNESS: Raul Chong is a 43 year old female. Patient presents with: Anxiety Broke up with boyfriend, still there and tearful. Entire family is staying there. Worried about where she is going to go. Tearful Worried abut housing and finances PAST MEDICAL HISTORY: PAST MEDICAL HISTORY Diagnosis [...] and tendon lengthening TONSILLECTOMY PRIMARY/SECONDARY Tonsillectomy ALLERGIES Gabapentin, Prednisone, Tree And Shrub Pollen, and Topamax [Topiramate] MEDICATIONS Current Outpatient Medications Medication Sig pregabalin (LYRICA) 75 mg capsule Take 1 capsule by mouth once daily for 180 days. calcium carbonate 400 mg (1,000 mg) chew Take 1,000 mg by mouth once daily. ferrous sulfate (IRON) 325 mg (65 mg iron) tablet Take 325 mg by mouth once daily. valACYclovir (VALTREX) 500 mg tablet Take 4 tablets twice daily X 1 day. Then start one tablet by mouth daily thereafter. SUMAtriptan (IMITREX) 100 mg tablet Take 1 tablet (100 mg) by mouth as needed. START AT ONSET OF HEADACHE. MAY REPEAT DOSE AFTER 2 HOURS. cyanocobalamin (VITAMIN B-12) 100 mcg tab Take 100 mcg by mouth once daily. ergocalciferol, vitamin D2, (VITAMIN D2 ORAL) Take by mouth. MULTIVITAMIN NO.43-IRON-FA ORAL Take by mouth. albuterol (PROVENTIL) 2.5 mg /3 mL (0.083 %) nebulizer solution Use 3 mL via nebulizer every 4 hours as needed for wheezing/shortness of breath. No current facility-administered medications for this visit. FAMILY HISTORY Problem Relation Age of Onset Diabetes Maternal Grandmother Diabetes Maternal Uncle Social History Tobacco Use Smoking status: Former Current packs/day: 0.00 Average packs/day: 0.3 packs/day for 24.0 years (6.0 ttl pk-yrs) Types: Cigarettes Start date: 03/19/1990 Quit date: 2014 Years since quittin.0 Smokeless tobacco: Never Tobacco comments: Quit in 2014, does vape daily Vaping Use Vaping status: current everyday user Start date: 08/10/2023 Substances: Nicotine Devices: Disposable Substance Use Topics Alcohol use: Not Currently Comment: rarely Drug use: No EXAM: BP 128/72 Pulse 69 Resp 16 Wt 83 kg (183 lb) LMP 12/02/2023 (Within Days) SpO2 98% BMI 27.83 kg/m? PHYSICAL EXAM: Physical Exam Vitals reviewed. Constitutional: Appearance: Normal appearance. HENT: Head: Normocephalic. Cardiovascular: Rate and Rhythm: Normal rate and regular rhythm. Pulses: Normal pulses. Heart sounds: Normal heart sounds. Pulmonary: Effort: Pulmonary effort is normal. Breath sounds: Normal breath sounds. Musculoskeletal: General: Normal range of motion. Skin: General: Skin is warm and dry. Neurological: Mental Status: She is alert and oriented to person, place, and time. Psychiatric: Behavior: Behavior normal. Thought Content: Thought content normal. Judgment: Judgment normal. Comments: tearful LABS: ASSESSMENT/PLAN: 1. Homeless - ICD9: V60.0, ICD10: Z59.00 (primary diagnosis) Consult social services technician for help with housing - PRIMARY CARE SOCIAL WORK CONSULT 2. Anxiety with depression - ICD9: 300.4, ICD10: F41.8 Bad situation - SERTRALINE 50 MG TABLET daily - HYDROXYZINE HCL 25 MG TABLET 3 x day as needed Discussed treatment plan and patient voices understanding. Patient's questions answered appropriately. Medications and potential side effects were discussed and patient voices understanding. Return to the office as scheduled or as needed for worsening/no improvement. Anna Nino APRN.[facility]01-13-2025 History of Present illness Narrative* Anna Nino APRN.[facility] - 02/22/2024 12:41 PM EST This is a 43 year old female who presents today with: Patient presents with: Anxiety HISTORY OF PRESENT ILLNESS: Raul Chong is a 43 year old female. Patient presents with: Anxiety Broke up with boyfriend, still there and tearful. Entire family is staying there. Worried about where she is going to go. Tearful Worried abut housing and finances PAST MEDICAL HISTORY: PAST MEDICAL HISTORY Diagnosis Date Autoimmune disease (HCC) Degeneration of intervertebral disc, site unspecified Depression Migraines Mild intermittent asthma Obesity Osteoarthritis of both knees Plantar fasciitis Psoriasis PAST SURGICAL HISTORY Procedure Laterality Date ADENOIDECTOMY PRIMARY <AGE 11 Adenoidectomy DELIVERY ONLY , low cervical LAPAROSCOPY SURG CHOLECYSTECTOMY 2014 PAST SURGICAL HISTORY OF Bilateral arthoscopy to ankles, scar tissue removal and tendon lengthening TONSILLECTOMY PRIMARY/SECONDARY <AGE 11 Tonsillectomy ALLERGIES Gabapentin, Prednisone, Tree And Shrub Pollen, and Topamax [Topiramate] MEDICATIONS Current Outpatient Medications Medication Sig pregabalin (LYRICA) 75 mg capsule Take 1 capsule by mouth once daily for 180 days. calcium carbonate 400 mg (1,000 mg) chew Take 1,000 mg by mouth once daily. ferrous sulfate (IRON) 325 mg (65 mg iron) tablet Take 325 mg by mouth once daily. valACYclovir (VALTREX) 500 mg tablet Take 4 tablets twice daily X 1 day. Then start one tablet by mouth daily thereafter. SUMAtriptan (IMITREX) 100 mg tablet Take 1 tablet (100 mg) by mouth as needed. START AT ONSET OF HEADACHE. MAY REPEAT DOSE AFTER 2 HOURS. cyanocobalamin (VITAMIN B-12) 100 mcg tab Take 100 mcg by mouth once daily. ergocalciferol, vitamin D2, (VITAMIN D2 ORAL) Take by mouth. MULTIVITAMIN NO.43-IRON-FA ORAL Take by mouth. albuterol (PROVENTIL) 2.5 mg /3 mL (0.083 %) nebulizer solution Use 3 mL via nebulizer every 4 hours as needed for wheezing/shortness of breath. No current facility-administered medications for this visit. FAMILY HISTORY Problem Relation Age of Onset Diabetes Maternal Grandmother Diabetes Maternal Uncle Social History Tobacco Use Smoking status: Former Current packs/day: 0.00 Average packs/day: 0.3 packs/day for 24.0 years (6.0 ttl pk-yrs) Types: Cigarettes Start date: 03/19/1990 Quit date: 2015 Years since quittin.0 Smokeless tobacco: Never Tobacco comments: Quit in 2015, does vape daily Vaping Use Vaping status: current everyday user Start date: 08/10/2023 Substances: Nicotine Devices: Disposable Substance Use Topics Alcohol use: Not Currently Comment: rarely Drug use: No EXAM: BP 128/72 Pulse 69 Resp 16 Wt 83 kg (183 lb) LMP 12/02/2023 (Within Days) SpO2 98% BMI 27.83 kg/m PHYSICAL EXAM: Physical Exam Vitals reviewed. Constitutional: Appearance: Normal appearance. HENT: Head: Normocephalic. Cardiovascular: Rate and Rhythm: Normal rate and regular rhythm. Pulses: Normal pulses. Heart sounds: Normal heart sounds. Pulmonary: Effort: Pulmonary effort is normal. Breath sounds: Normal breath sounds. Musculoskeletal: General: Normal range of motion. Skin: General: Skin is warm and dry. Neurological: Mental Status: She is alert and oriented to person, place, and time. Psychiatric: Behavior: Behavior normal. Thought Content: Thought content normal. Judgment: Judgment normal. Comments: tearful LABS: ASSESSMENT/PLAN: 1. Homeless - ICD9: V60.0, ICD10: Z59.00 (primary diagnosis) Consult social services technician for help with housing - PRIMARY CARE SOCIAL WORK CONSULT 2. Anxiety with depression - ICD9: 300.4, ICD10: F41.8 Bad situation - SERTRALINE 50 MG TABLET daily - HYDROXYZINE HCL 25 MG TABLET 3 x day as needed Discussed treatment plan and patient voices understanding. Patient's questions answered appropriately. Medications and potential side effects were discussed and patient voices understanding. Return to the office as scheduled or as needed for worsening/no improvement. Anna Nino APRN.[employer] [facility] Telephone encounter Note * Telephone Encounter - Marietta Harman LPN - 02/22/2024 9:00 AM EST Pt called in today to get a medication for stress and anxiety. Pt scheduled for an apt today 02-22-24 with provider/team. Pt reports her boyfriend broke up with her and kick her out along with her 15 year old son. Pt reports she feeling really stress and having some anxiety. Marietta Harman LPN [facility]01-13-2025 Miscellaneous Notes* Telephone Encounter - Marietta Harman LPN - 02/22/2024 9:00 AM EST Pt called in today to get a medication for stress and anxiety. Pt scheduled for an apt today 02-22-24 with provider/team. Pt reports her boyfriend broke up with her and kick her out along with her 15 year old son. Pt reports she feeling really stress and having some anxiety. Marietta Harman LPN documented in [facility]The [facility] Instructions* Patient Instructions* Mary Moura APRN.[employer] - 02/15/2024 3:57 PM EST Images from the original note were not included. [facility] PATIENT PREOPERATIVE INSTRUCTIONS No ref. provider found has scheduled you for your procedure at this surgery center: [facility]: [phone] --[id number] [place] [address]. Please read below carefully for your personalized instructions. Dietary Restrictions: - No solid food after midnight. - You may have 12 ounces of clear liquids (water, clear juices such as apple juice or gatorade, carbonated beverages, clear tea, black coffee, jello) until 2 hours before scheduled arrival at facility. No red/purple coloring and no creamer/sugar Medications: Unless instructed differently below, stay on all of your medications until your surgery. If you start any new medications after today's visit, please contact your surgeon. Pre-Surgery Med Instructions Medication Instructions pregabalin (LYRICA) 75 mg capsule Take the day of surgery with a small sip of water calcium carbonate 400 mg (1,000 mg) chew Stop 7 days before surgery ferrous sulfate (IRON) 325 mg (65 mg iron) tablet Stop 7 days before surgery valACYclovir (VALTREX) 500 mg tablet IF needed SUMAtriptan (IMITREX) 100 mg tablet IF needed cyanocobalamin (VITAMIN B-12) 100 mcg tab Stop 7 days before surgery ergocalciferol, vitamin D2, (VITAMIN D2 ORAL) Stop 7 days before surgery MULTIVITAMIN NO.43-IRON-FA ORAL Stop 7 days before surgery albuterol (PROVENTIL) 2.5 mg /3 mL (0.083 %) nebulizer solution Take the day of surgery with a small sip of water If you start any new medications after today's visit, please contact the surgeon's office. If you are currently using a [id number] injectable or oral medication for diabetes or weight loss such as Dulaglutide (Trulicity), Exenatide (Byetta, Bydureon), Liraglutide (Victoza, Saxenda), Semaglutide (Ozempic, Wegovy, Rybelsus), or Tirzepatide (Mounjaro), the medicine should be stopped at least 7 days before surgery. These medicines can cause food to remain in your stomach for a very longtime and increase the risks from surgery and anesthesia. Not stopping the medication for a long enough time may result in your surgery being rescheduled. Blood Thinning Medications: - Stop NSAIDS (Ibuprofen, Advil, Aleve, Motrin, Celebrex, Mobic, etc.) 7 days before surgery, as directed by your surgeon. - Stop Aspirin 7 days before surgery, as directed by your surgeon. - Stop ALL herbal and dietary supplements 7 days before surgery. - You may take Tylenol (Acetaminophen) or any of your pain medications that do not contain aspirin or NSAIDS as needed. Important Reminders: - Candy, mints, and tobacco products are [...] money at home or with family members. - Please bring high-quality footwear, such as sneakers, to the hospital for ambulating post-surgery. For Outpatient Procedures: - YOU MUST HAVE A RESPONSIBLE GRAPHIC PRE PRESS TRADES WORKER TAKE YOU HOME. A EMBROIDERY SPECIALIST OR COUPON CLERK CANNOT BE MADE A RESPONSIBLE GRAPHIC PRE PRESS TRADES WORKER. - We recommend that a responsible person stays with you overnight to take care of you. - You cannot stay in a hotel alone after outpatient surgery. You will not be permitted to have yoursurgery, if you do not have someone to take care of you. Arrival Time for Surgery: - The Surgery Center or hospital where you are having surgery will call the afternoon before surgery (or Thursday for Thursday surgery) with a scheduled arrival time. - If you have not heard by 4 pm, please contact the surgery center above. Please be aware that emergency situations arise, which may delay or change your surgical time. If this happens, we will notify you as soon as possible and regret any inconvenience. If you already have an Advance Directive, please fax a copy to [phone] or email to for it to be added to your chart. If you do not have an Advance Directive, you can find the appropriate form and more information at [email or web address]. We recommend that youcomplete the Advance Directive form found on the website and bring it with you the day of your surgery. It can be witnessed and scanned into your chart that day. Mary Moura APRN.CNP documented in [facility] encounterThe [facility]01[facility] History and physical note * Mary Moura APRN.CNP - 02/15/2024 3:55 PM EST Images from the original note were not included. [facility] HISTORY AND PHYSICAL EXAMINATION SERVICE DATE: 02/15/2024 SERVICE TIME: 6:56 AM PRIMARY CARE PHYSICIAN: Maira Escamilla MD Assessment Patient has the following medical conditions which may affect ninfa-operative course: Migraines Assessment: rx as needed SVT (supraventricular tachycardia) (HCC) Assessment: hx, thought to be anxiety induced. Received cardiac evaluation 10/19/23 Zio patch results IRHYTHM FINDINGS: Patient had a min HR of 45 bpm, max HR of 150 bpm, and avg HR of 74 bpm. Predominant underlying rhythm was Sinus Rhythm. Slight P wave morphology changes were noted. 2 Supraventricular Tachycardia runs occurred, the run with the fastest interval lasting 4 beats with a max rate of 112 bpm, the longest lasting 9 beats with an avg rate of 92 bpm. Isolated SVEs were rare (<1.0%),SVE Couplets were rare (<1.0%), and SVE Triplets were rare (<1.0%). Isolated VEs were rare (<1.0%), VE Couplets were rare (<1.0%), and no VE Triplets were present. 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 supraventricular tachycardia documented by Holter monitor most of her palpitationis likely anxiety related due to sinus tachycardia in light of normal echocardiography normal treatment is recommended at this time if her symptoms become troublesome and lifestyle limiting we could consider small dose Follow-up in a yearly basis Mild intermittent asthma Assessment: albuterol as needed, former social smoker (vague hx given) Gastroesophageal reflux disease without esophagitis Assessment: controlled on rx History of gastric bypass Assessment: hx 2021 Amin Activity Status Index: METS: Climb a flight of stairs or walk up a hill (5.50 METs) DASI Score: 5.5 Patient denies any chest pain or undue shortness of breath with the above physical activity. Clinical Frailty Scale: 3. Well, with treated comorbid disease STOP-Bang Score: Denies snoring loudly Denies feeling tired, fatigued, or sleepy during the daytime Has not been observed to stop breathing or choking/gasping during sleep Denies having high blood pressure BMI less than or equal to 35 kg/m^2 Patient 50 years old or younger Does not have a large neck Non-male patient STOP-Bang Score: 0 [id number] Score: Age: <65 Sex: female CHF history: No Hypertension history: No Stroke/TIA/thromboembolism history: No Vascular disease history: No Diabetes history: No [id number] Score: 1 ARISCAT Score: Age: <=50 Preoperative SpO2: 91-95% Respiratory infection in the last month: No Preoperative anemia: No Surgical incision: peripheral Duration of surgery: >3 hrs Emergency procedure: No ARISCAT Score: 31 ANESTHESIA FINDINGS: Intubation History: No history of difficult intubation Significant Anesthesia Considerations: none Airway History: No history of difficult airway I - PHYSICAL EVALUATION AIRWAY Patient intubated: No. Tracheostomy tube not present Mallampati: I. TM distance: >3 FB. Neck ROM: full ROM without neurological symptoms. Mouth opening: adequate. Short neck: no. Thick neck: no Hogan present: no Lip Bite Test: I Microretrognathia/Micronagthia/Recessed Chin: No DENTAL Dental findings: teeth intact. Additional comments: +crowns/back. II - ANESTHESIA PLAN Anesthetic Plan: other Beta Robbie Monitoring Plan Post Procedure Analgesic Plan Prepared for Surgery: optimally prepared for surgery. labs CONSULTS: Patient does not require consults for optimization at this time Planned Anesthetic: other anesthesia choice The Following Tests/Procedures Have Been Initiated: Orders Placed This Encounter >CBC + AUTO DIFF Standing Status: Future Number of Occurrences: 1 Standing Expiration Date: 05/16/2024 >CMP Standing Status: Future Number of Occurrences: 1 Standing Expiration Date: 05/16/2024 REASON FOR VISIT: Raul Chong is a 43 year old female who is scheduled for Procedure(s): PANNICULECTOMY (N/A) at the request of Jae Ferguson MD for consultation. My final recommendation will be communicated back to the requesting physician by way of shared medical record or letter. Subjective The patient has the following: COVID-19 Immunization Status Covid-19 Vaccine (Series Information) Completed 10/30/2023 Postponed until 10/29/2024 by Maira Escamilla MD (Declined at this time) 10/30/2023 Imm Admin: COVID-19 vaccine, age 12+ yr (PFIZER-BIONTECH) 04/26/2020 Imm Admin: COVID-19 original vaccine, age 12+ yr, monovalent (Cannonball- BIONTECH - PURPLE TOP) Only the first 3 history entries have been loaded, but more history exists. CHIEF COMPLAINT: Pre-op exam HPI: Raul Chong is a 43 year old seen for PAC due to scheduled above surgery because of loose skin. 10/08/23, Bonny Henry SAUSAGE GRINDER CC: Consult for Panniculectomy Pt reports loose skin on her thighs which she wants removed HPI: Raul is a 43 year old female here today to discuss excess abdominal skin and fat after massive weight loss. Patient is s/p Gastric bypass: laparoscopic. Date of bariatric surgery (more than 18 months): Yes 10/01/21 Highest weight: 424 lbs Current weight: 190 lbs Weight loss of 100 lbs or more: Yes, 234 lbs Use of pharmacotherapy for weight loss/management (Ozempic, Wegovy, Mounjaro, Phetermine): No Patients weight has been stable for 6 months. The patient does complain of recurrent rashes, intertrigo with dermatitis occuring on the opposed surface of the skin that has not responded to conventional treatment for a period of 3 months. Treatments tried: Cream: miconazole The patient does not have a history of infection. 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 She canonly wear stretch clothes Work: Yes, she has to do heavy lifting and the loose skin is in the way and hurts her back and getsa pinched nerve Trouble with clothes fitting properly: Yes History of Abdominal Hernia: No History of Abdominal Surgery: Yes, gallbladder surgery, gastric bypass and [id number] OB HISTORY: Para: 2 Plan for future pregnancies: No Recurrent Miscarriages (>3): no REVIEW OF SYSTEMS: General: No weight loss, malaise or fevers. Neurological: Positive for: headaches (on rx and as needed). 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 Respiratory: Positive for: asthma (childhood) and tobacco use (attepting to quit). Negative for: COPD, current cough, dyspnea, pneumonia within 6 weeks, URI < 2 weeks and obstructive sleep apnea. Cardiovascular: Positive for: arrhythmia (hx sabino/tachy) Negative for: abdominal aortic aneurysm, AICD/PPM, angina, anticoagulation therapy, atrial fibrillation, CAD, chest pain, CHF, congenital heart defect, DVT/PE, hyperlipidemia, hypertension, recent IN, murmur/valvular heart disease, PTCA, PVD, open heart surgery and valve surgery. GI: +hx gastric bypass. No history of GI symptoms or problems. No history of esophageal varices, recent ascites, or ETOH greater than 2 drinks per day. : No history of dysuria, frequency or incontinence, stones or chronic kidney disease. No difficulty urinating, nocturia > 1 time per night or hematuria. 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 Psych: Positive for: anxiety and depression. Negative for: Marijuana Use. Musculoskeletal: Positive for: joint pain (OA). Skin: See HPI. +eczema Implanted Devices: No implanted devices. PAST MEDICAL HISTORY Diagnosis Date Autoimmune disease [...] Social History Tobacco Use Smoking status: Former Current packs/day: 0.00 Average packs/day: 0.3 packs/day for 24.0 years (6.0 ttl pk-yrs) Types: Cigarettes Start date: 03/19/1990 Quit date: 2014 Years since quittin.0 Smokeless tobacco: Never Tobacco comments: Quit in 2014, does vape daily Vaping Use Vaping status: current everyday user Start date: 08/10/2023 Substances: Nicotine Devices: Disposable Substance Use Topics Alcohol use: Not Currently Comment: rarely Drug use: No Prior to Admission medications as of 02/15/24 1606 Medication Sig Last Dose Taking pregabalin (LYRICA) 75 mg capsule Take 1 capsule by mouth once daily for 180 days. Taking Yes calcium carbonate 400 mg (1,000 mg) chew Take 1,000 mg by mouth once daily. Taking Yes ferrous sulfate (IRON) 325 mg (65 mg iron) tablet Take 325 mg by mouth once daily. Taking Yes valACYclovir (VALTREX) 500 mg tablet Take 4 tablets twice daily X 1 day. Then start one tablet by mouth daily thereafter. Taking Yes SUMAtriptan (IMITREX) 100 mg tablet Take 1 tablet (100 mg) by mouth as needed. START AT ONSET OF HEADACHE. MAY REPEAT DOSE AFTER 2 HOURS. Taking Yes cyanocobalamin (VITAMIN B-12) 100 mcg tab Take 100 mcg by mouth once daily. Taking Yes ergocalciferol, vitamin D2, (VITAMIN D2 ORAL) Take by mouth. Taking Yes MULTIVITAMIN NO.43-IRON-FA ORAL Take by mouth. Taking Yes albuterol (PROVENTIL) 2.5 mg /3 mL (0.083 %) nebulizer solution Use 3 mL via nebulizer every 4 hours as needed for wheezing/shortness of breath. Taking Yes No medication comments found. ALLERGIES Allergen Reactions Gabapentin Other: See Comments Prednisone Mental Status Change Tree And Shrub Poll* Other: See Comments Topamax [Topiramate] Other: See Comments anxiety Objective PHYSICAL EXAM: General: alert and oriented (x3) and healthy appearance. Pertinent negatives noted - not distressed. Skin: [...] or sensory deficit. PAIN ASSESSMENT: VITALS: BP 120/78 Pulse 70 Temp (Src) 98.3 (Temporal) Resp 14 Ht 5' 8 (1.73m) Wt 185 lb (83.9kg) SpO2 92% LMP 12/02/2023 BMI 28.14 kg/(m^2). Diagnostic tests reviewed for today's visit: Lab Value Units Date High Low HB 12.5 g/dL 02/15/2024 15.5 11.5 HCT 38.3 % 02/15/2024 46.0 36.0 WBC 5.76 k/uL 02/15/2024 11.00 3.70 PLT 233 k/uL 02/15/2024 400 150 NA 137 mmol/L 02/15/2024 144 136 K 4.6 mmol/L 02/15/2024 5.1 3.7 GLUC 82 mg/dL 02/15/2024 99 74 BUN 15 mg/dL 02/15/2024 21 7 CREAT 0.80 mg/dL 02/15/2024 0.96 0.58 PTSEC No results within date range. INR No results within date range. APTT No results within date range. ALT 23 U/L 02/15/2024 38 7 AST 26 U/L 02/15/2024 35 13 TBILI 0.3 mg/dL 02/15/2024 1.3 0.2 TSH No results within date range. Lab Value Units Date High Low HCGQT No results within date range. UHCG No results within date range. HCG, BODY* No results within date range. Lab Value Units Date High Low ABORHD No results within date range. ABSCREEN No results within date range. Hemoglobin A1C (%) Date Value 06/24/2022 4.9 09/25/2020 5.4 05/13/2018 5.3 03/31/2017 5.2 11/09/2015 5.4 No results found for this or any previous visit (from the past 8760 hour(s)). No results found for this or any previous visit (from the past 00035 hour(s)). Instructions Given to Patient: Instructions located in the after visit summary. Patient given verbal and written preop instructions and voices comprehension and compliance. SIGNATURE: Mary Moura APRN.CNP PATIENT NAME: Raul Chong DATE: February 15, 2024 TIME: 3:55 PM PAGER/CONTACT #: [facility]01-06-[facility] History and physical note* Mary Moura APRN.CNP - 02/15/2024 3:55 PM EST Images from the original note were not included. [facility] HISTORY AND PHYSICAL EXAMINATION SERVICE DATE: 02/15/2024 SERVICE TIME: 6:56 AM PRIMARY CARE PHYSICIAN: Maira Escamilla MD Assessment Patient has the following medical conditions which may affect ninfa-operative course: Migraines Assessment: rx as needed SVT (supraventricular tachycardia) (HCC) Assessment: hx, thought to be anxiety induced. Received cardiac evaluation 10/19/23 Zio patch results IRHYTHM FINDINGS: Patient had a min HR of 45 bpm, max HR of 150 bpm, and avg HR of 74 bpm. Predominant underlying rhythm was Sinus Rhythm. Slight P wave morphology changes were noted. 2 Supraventricular Tachycardia runs occurred, the run with the fastest interval lasting 4 beats with a max rate of 112 bpm, the longest lasting 9 beats with an avg rate of 92 bpm. Isolated SVEs were rare (<1.0%),SVE Couplets were rare (<1.0%), and SVE Triplets were rare (<1.0%). Isolated VEs were rare (<1.0%), VE Couplets were rare (<1.0%), and no VE Triplets were present. 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 supraventricular tachycardia documented by Holter monitor most of her palpitationis likely anxiety related due to sinus tachycardia in light of normal echocardiography normal treatment is recommended at this time if her symptoms become troublesome and lifestyle limiting we could consider small dose Follow-up in a yearly basis Mild intermittent asthma Assessment: albuterol as needed, former social smoker (vague hx given) Gastroesophageal reflux disease without esophagitis Assessment: controlled on rx History of gastric bypass Assessment: hx 2021 Amin Activity Status Index: METS: Climb a flight of stairs or walk up a hill (5.50 METs) DASI Score: 5.5 Patient denies any chest pain or undue shortness of breath with the above physical activity. Clinical Frailty Scale: 3. Well, with treated comorbid disease STOP-Bang Score: Denies snoring loudly Denies feeling tired, fatigued, or sleepy during the daytime Has not been observed to stop breathing or choking/gasping during sleep Denies having high blood pressure BMI less than or equal to 35 kg/m^2 Patient 50 years old or younger Does not have a large neck Non-male patient STOP-Bang Score: 0 [id number] Score: Age: <65 Sex: female CHF history: No Hypertension history: No Stroke/TIA/thromboembolism history: No Vascular disease history: No Diabetes history: No [id number] Score: 1 ARISCAT Score: Age: <=50 Preoperative SpO2: 91-95% Respiratory infection in the last month: No Preoperative anemia: No Surgical incision: peripheral Duration of surgery: >3 hrs Emergency procedure: No ARISCAT Score: 31 ANESTHESIA FINDINGS: Intubation History: No history of difficult intubation Significant Anesthesia Considerations: none Airway History: No history of difficult airway I - PHYSICAL EVALUATION AIRWAY Patient intubated: No. Tracheostomy tube not present Mallampati: I. TM distance: >3 FB. Neck ROM: full ROM without neurological symptoms. Mouth opening: adequate. Short neck: no. Thick neck: no Hogan present: no Lip Bite Test: I Microretrognathia/Micronagthia/Recessed Chin: No DENTAL Dental findings: teeth intact. Additional comments: +crowns/back. II - ANESTHESIA PLAN Anesthetic Plan: other Beta Robbie Monitoring Plan Post Procedure Analgesic Plan Prepared for Surgery: optimally prepared for surgery. labs CONSULTS: Patient does not require consults for optimization at this time Planned Anesthetic: other anesthesia choice The Following Tests/Procedures Have Been Initiated: Orders Placed This Encounter >CBC + AUTO DIFF Standing Status: Future Number of Occurrences: 1 Standing Expiration Date: 05/16/2024 >CMP Standing Status: Future Number of Occurrences: 1 Standing Expiration Date: 05/16/2024 REASON FOR VISIT: Raul Chong is a 43 year old female who is scheduled for Procedure(s): PANNICULECTOMY (N/A) at the request of Jae Ferguson MD for consultation. My final recommendation will be communicated back to the requesting physician by way of shared medical record or letter. Subjective The patient has the following: COVID-19 Immunization Status Covid-19 Vaccine (Series Information) Completed 10/30/2023 Postponed until 10/29/2024 by Maira Escamilla MD (Declined at this time) 10/30/2023 Imm Admin: COVID-19 vaccine, age 12+ yr (PFIZER-BIONTECH) 04/26/2020 Imm Admin: COVID-19 original vaccine, age 12+ yr, monovalent (Cannonball- BIONTTensorComm - PURPLE TOP) Only the first 3 history entries have been loaded, but more history exists. CHIEF COMPLAINT: Pre-op exam HPI: Raul Chong is a 43 year old seen for PAC due to scheduled above surgery because of loose skin. 10/08/23, Bonny Henry SAUSAGE GRINDER CC: Consult for Panniculectomy Pt reports loose skin on her thighs which she wants removed HPI: Raul is a 43 year old female here today to discuss excess abdominal skin and fat after massive weight loss. Patient is s/p Gastric bypass: laparoscopic. Date of bariatric surgery (more than 18 months): Yes 10/01/21 Highest weight: 424 lbs Current weight: 190 lbs Weight loss of 100 lbs or more: Yes, 234 lbs Use of pharmacotherapy for weight loss/management (Ozempic, Wegovy, Mounjaro, Phetermine): No Patients weight has been stable for 6 months. The patient does complain of recurrent rashes, intertrigo with dermatitis occuring on the opposed surface of the skin that has not responded to conventional treatment for a period of 3 months. Treatments tried: Cream: miconazole The patient does not have a history of infection. 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 She canonly wear stretch clothes Work: Yes, she has to do heavy lifting and the loose skin is in the way and hurts her back and getsa pinched nerve Trouble with clothes fitting properly: Yes History of Abdominal Hernia: No History of Abdominal Surgery: Yes, gallbladder surgery, gastric bypass and [id number] OB HISTORY: Para: 2 Plan for future pregnancies: No Recurrent Miscarriages (>3): no REVIEW OF SYSTEMS: General: No weight loss, malaise or fevers. Neurological: Positive for: headaches (on rx and as needed). 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 Respiratory: Positive for: asthma (childhood) and tobacco use (attepting to quit). Negative for: COPD, current cough, dyspnea, pneumonia within 6 weeks, URI < 2 weeks and obstructive sleep apnea. Cardiovascular: Positive for: arrhythmia (hx sabino/tachy) Negative for: abdominal aortic aneurysm, AICD/PPM, angina, anticoagulation therapy, atrial fibrillation, CAD, chest pain, CHF, congenital heart defect, DVT/PE, hyperlipidemia, hypertension, recent IN, murmur/valvular heart disease, PTCA, PVD, open heart surgery and valve surgery. GI: +hx gastric bypass. No history of GI symptoms or problems. No history of esophageal varices, recent ascites, or ETOH greater than 2 drinks per day. : No history of dysuria, frequency or incontinence, stones or chronic kidney disease. No difficulty urinating, nocturia > 1 time per night or hematuria. 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 Psych: Positive for: anxiety and depression. Negative for: Marijuana Use. Musculoskeletal: Positive for: joint pain (OA). Skin: See HPI. +eczema Implanted Devices: No implanted devices. PAST MEDICAL HISTORY Diagnosis Date Autoimmune disease [...] Social History Tobacco Use Smoking status: Former Current packs/day: 0.00 Average packs/day: 0.3 packs/day for 24.0 years (6.0 ttl pk-yrs) Types: Cigarettes Start date: 03/19/1990 Quit date: 2015 Years since quittin.0 Smokeless tobacco: Never Tobacco comments: Quit in 2015, does vape daily Vaping Use Vaping status: current everyday user Start date: 08/10/2023 Substances: Nicotine Devices: Disposable Substance Use Topics Alcohol use: Not Currently Comment: rarely Drug use: No Prior to Admission medications as of 02/15/24 1606 Medication Sig Last Dose Taking pregabalin (LYRICA) 75 mg capsule Take 1 capsule by mouth once daily for 180 days. Taking Yes calcium carbonate 400 mg (1,000 mg) chew Take 1,000 mg by mouth once daily. Taking Yes ferrous sulfate (IRON) 325 mg (65 mg iron) tablet Take 325 mg by mouth once daily. Taking Yes valACYclovir (VALTREX) 500 mg tablet Take 4 tablets twice daily X 1 day. Then start one tablet by mouth daily thereafter. Taking Yes SUMAtriptan (IMITREX) 100 mg tablet Take 1 tablet (100 mg) by mouth as needed. START AT ONSET OF HEADACHE. MAY REPEAT DOSE AFTER 2 HOURS. Taking Yes cyanocobalamin (VITAMIN B-12) 100 mcg tab Take 100 mcg by mouth once daily. Taking Yes ergocalciferol, vitamin D2, (VITAMIN D2 ORAL) Take by mouth. Taking Yes MULTIVITAMIN NO.43-IRON-FA ORAL Take by mouth. Taking Yes albuterol (PROVENTIL) 2.5 mg /3 mL (0.083 %) nebulizer solution Use 3 mL via nebulizer every 4 hours as needed for wheezing/shortness of breath. Taking Yes No medication comments found. ALLERGIES Allergen Reactions Gabapentin Other: See Comments Prednisone Mental Status Change Tree And Shrub Poll* Other: See Comments Topamax [Topiramate] Other: See Comments anxiety Objective PHYSICAL EXAM: General: alert and oriented (x3) and healthy appearance. Pertinent negatives noted - not distressed. Skin: [...] or sensory deficit. PAIN ASSESSMENT: VITALS: BP 120/78 Pulse 70 Temp (Src) 98.3 (Temporal) Resp 14 Ht 5' 8 (1.73m) Wt 185 lb (83.9kg) SpO2 92% LMP 12/02/2023 BMI 28.14 kg/(m^2). Diagnostic tests reviewed for today's visit: Lab Value Units Date High Low HB 12.5 g/dL 02/15/2024 15.5 11.5 HCT 38.3 % 02/15/2024 46.0 36.0 WBC 5.76 k/uL 02/15/2024 11.00 3.70 PLT 233 k/uL 02/15/2024 400 150 NA 137 mmol/L 02/15/2024 144 136 K 4.6 mmol/L 02/15/2024 5.1 3.7 GLUC 82 mg/dL 02/15/2024 99 74 BUN 15 mg/dL 02/15/2024 21 7 CREAT 0.80 mg/dL 02/15/2024 0.96 0.58 PTSEC No results within date range. INR No results within date range. APTT No results within date range. ALT 23 U/L 02/15/2024 38 7 AST 26 U/L 02/15/2024 35 13 TBILI 0.3 mg/dL 02/15/2024 1.3 0.2 TSH No results within date range. Lab Value Units Date High Low HCGQT No results within date range. UHCG No results within date range. HCG, BODY* No results within date range. Lab Value Units Date High Low ABORHD No results within date range. ABSCREEN No results within date range. Hemoglobin A1C (%) Date Value 06/24/2022 4.9 09/25/2020 5.4 05/13/2018 5.3 03/31/2017 5.2 11/09/2015 5.4 No results found for this or any previous visit (from the past 8760 hour(s)). No results found for this or any previous visit (from the past 64086 hour(s)). Instructions Given to Patient: Instructions located in the after visit summary. Patient given verbal and written preop instructions and voices comprehension and compliance. SIGNATURE: Mary Moura APRN.CNP PATIENT NAME: Raul Chong DATE: February 15, 2024 TIME: 3:55 PM PAGER/CONTACT #: documented in [facility]The [facility] Telephone encounter Note * Telephone Encounter - Norma Mcnamara LPN - 02/15/2024 3:47 PM EST Patient arrived at 3:45 and was seen. Norma Mcnamara LPN [facility]01-06-[facility] Miscellaneous Notes* Telephone Encounter - Norma Mcnamara LPN - 02/15/2024 3:47 PM EST Patient arrived at 3:45 and was seen. Norma Mcnamara LPN * Telephone Encounter - Norma Mcnamara LPN - 02/15/2024 3:40 PM EST Patient was scheduled for in person PACC appt at 3:20pm today. Patient did not check in for appt, called patient at [phone] to see if they were planning on coming. Norma Mcnamara LPN documented in [facility]The [facility] Telephone encounter Note * Telephone Encounter - Norma Mcnamara LPN - 02/15/2024 3:40 PM EST Patient was scheduled for in person PACC appt at 3:20pm today. Patient did not check in for appt, called patient at [phone] to see if they were planning on coming. Norma Mcnamara LPN [facility]10-18-[facility]24 History of Present illness Narrative* Jae Sterling MD - 11/27/2023 9:00 AM EDT Plastic Surgery Note CC: pre op HPI: Raul Chong is a 43 year old female who presents for pre op for panniculectomy, previously seen by Bonny Henry, patient is ready to schedule surgery. Patient is s/p Date of Surgery: 10/01/21 Surgery: Laparoscopic gastric bypass Time Postop: 2 years, 2 months Highest weight: 424 lbs Current weight: 192 lbs Panniculus causes interference with activities of daily living such as bathing, dressing, and work Denies history of abdominal hernia. Patient has history of abdominal surgery: gallbladder surgery, gastric bypass, and 2 c-sections Hx bleeding/clotting: denies Hx recurrent miscarriages: denies Hx smoking: vapes nicotine currently HISTORIES PAST MEDICAL HISTORY Diagnosis Date Autoimmune disease [...] tendon lengthening TONSILLECTOMY PRIMARY/SECONDARY <AGE 12 Tonsillectomy pregabalin (LYRICA) 75 mg capsule Take 1 capsule by mouth once daily for 180 days. calcium carbonate 400 mg (1,000 mg) chew Take 1,000 mg by mouth once daily. ferrous sulfate (IRON) 325 mg (65 mg iron) tablet Take 325 mg by mouth once daily. valACYclovir (VALTREX) 500 mg tablet Take 4 tablets twice daily X 1 day. Then start one tablet by mouth daily thereafter. SUMAtriptan (IMITREX) 100 mg tablet Take 1 tablet (100 mg) by mouth as needed. START AT ONSET OF HEADACHE. MAY REPEAT DOSE AFTER 2 HOURS. fexofenadine (LAKISHA ALLERGY) 180 mg tablet Take 1 tablet by mouth once daily. (Patient not taking: Reported on 09/28/2023) norethindrone (AYGESTIN) 5 mg tablet Take 1 tablet by mouth twice daily for 7 days. (Patient not taking: Reported on 09/28/2023) cyanocobalamin (VITAMIN B-12) 100 mcg tab Take 100 mcg by mouth once daily. ergocalciferol, vitamin D2, (VITAMIN D2 ORAL) Take by mouth. MULTIVITAMIN NO.43-IRON-FA ORAL Take by mouth. albuterol (PROVENTIL) 2.5 mg /3 mL (0.083 %) nebulizer solution Use 3 mL via nebulizer every 4 hours as needed for wheezing/shortness of breath. ammonium lactate (AMLACTIN) 12 % lotion apply to rash 2-3 times a day as needed (Patient not taking: Reported on 09/28/2023) Allergies: ALLERGIES Allergen Reactions Gabapentin Other: See Comments Prednisone Mental Status Change Tree And Shrub Poll* Other: See Comments Topamax [Topiramate] Other: See Comments anxiety FAMILY HISTORY Problem Relation Age of Onset Diabetes Maternal Grandmother Diabetes Maternal Uncle Social History Tobacco Use Smoking status: Former Current packs/day: 0.00 Average packs/day: 0.3 packs/day for 24.0 years (6.0 ttl pk-yrs) Types: Cigarettes Start date: 03/19/1990 Quit date: 2014 Years since quittin.7 Smokeless tobacco: Never Tobacco comments: quit in 05/15 Vaping Use Vaping status: Never Used Substance Use Topics Alcohol use: Yes Comment: rarely Drug use: No REVIEW OF SYSTEMS As above General: No weight loss, fever, chills, malaise Cardiac: No CP, palpitations, or leg swelling Respiratory: No cough or SOB GI: No N/V or diarrhea, no blood in stool : No burning or frequency with urination, no blood in urine Hematology: No blood thinners All other reviewed and negative other than HPI. PHYSICAL EXAM: LMP 04/28/2023 (Approximate) GEN: Well appearing, alert, in no acute distress, well-hydrated, well nourished. EXT: Excess skin on lower extremities ABD: More excess skin vertically Panniculus 1 cm Well-healed pfannenstiel scar Striae above umbilicus Panniculus stops at hips The sensitive examination was discussed with the Patient or Patient's Authorized Refrigeration Repair Supervisor. Asapplicable, any other physician, advance practice provider, medical student, or other health professional student that will be observing or involved in the sensitive examination for educational or training purposes was discussed with the Patient or Authorized Refrigeration Repair Supervisor. The Patient or Authorized Refrigeration Repair Supervisor has agreed to proceed with the sensitive examination. (Sensitive examination includes inspection and/or palpation of the breasts, pelvis, prostate and anorectal regions) Assessment: Raul Chong is a 43 year old female who presents for pre op of panniculectomy. Patient is a candidate for a panniculectomy Plan: Will refer patient to Dr. Panchal who will be able to schedule in a more timely fashion as patient does not want to wait until 2024 Follow up at the time of surgery The patient was seen with Alexia Brian RN who performed the Review of Systems and Past/Family/Social History. I have reviewed these and agree with her findings. The History and Physical as taken by me are documented above and/or dictated below. The patient is seen and examined by Dr. Sterling and the following reflects his service. Scribed by Esther Ruiz I agree with the Chief Complaint, ROS, and Past Histories independently gathered by the clinical forestry support specialist and the remaining scribed note accurately describes my personal service to the patient. 30 minutes total visit spent face to face with patient. Greater than 50% of the time was spent for counseling and coordination of care, discussing treatment options and recommendations. By signing my name below, I, Esther Ruiz, attest that this documentation has been prepared underthe direction and in the presence of Jae Ferguson MD Electronically signed, Xiomara Traylor November 27, 2023 9:19 AM Provider Attestation: Jae Little MD, personally performed the services described in this documentation. All medical record entries made by the scribe were at my direction and in my presence. I have reviewed the chart and discharge instructions (if applicable) and agree that the record reflects my personal performance and is accurate and complete. Dr. Jae Sterling MD November 27, 2023 3:43 PM documented in this encounterThe [facility]10-[facility] NoteHNO ID: [id number] Author: JAE STERLING MD Service: ? Author Type: Physician Type: Progress Notes Filed: 11/27/2023 15:43 Note Text: Plastic Surgery Note CC: pre op HPI: Raul Chong is a 43 year old female who presents for pre op for panniculectomy, previously seen by Bonny Henry, patient is ready to schedule surgery. Patient is s/p Date of Surgery: 10/01/21 Surgery: Laparoscopic gastric bypass Time Postop: 2 years, 2 months Highest weight: 424 lbs Current weight: 192 lbs Panniculus causes interference with activities of daily living such as bathing, dressing, and work Denies history of abdominal hernia. Patient has history of abdominal surgery: gallbladder surgery, gastric bypass, and 2 c-sections Hx bleeding/clotting: denies Hx recurrent miscarriages: denies Hx smoking: vapes nicotine currently HISTORIES PAST MEDICAL HISTORY Diagnosis Date Autoimmune disease (HCC) Degeneration of intervertebral disc, site unspecified Depression Migraines Mild intermittent asthma Obesity Osteoarthritis of both knees Plantar fasciitis Psoriasis PAST SURGICAL HISTORY Procedure Laterality Date ADENOIDECTOMY PRIMARY Adenoidectomy DELIVERY ONLY , low cervical LAPAROSCOPY SURG CHOLECYSTECTOMY 2013 PAST SURGICAL HISTORY OF Bilateral arthoscopy to ankles, scar tissue removal and tendon lengthening TONSILLECTOMY PRIMARY/SECONDARY Tonsillectomy pregabalin (LYRICA) 75 mg capsule Take 1 capsule by mouth once daily for 180 days. calcium carbonate 400 mg (1,000 mg) chew Take 1,000 mg by mouth once daily. ferrous sulfate (IRON) 325 mg (65 mg iron) tablet Take 325 mg by mouth once daily. valACYclovir (VALTREX) 500 mg tablet Take 4 tablets twice daily X 1 day. Then start one tablet by mouth daily thereafter. SUMAtriptan (IMITREX) 100 mg tablet Take 1 tablet (100 mg) by mouth as needed. START AT ONSET OF HEADACHE. MAY REPEAT DOSE AFTER 2 HOURS. fexofenadine (LAKISHA ALLERGY) 180 mg tablet Take 1 tablet by mouth once daily. (Patient not taking: Reported on 09/28/2023) norethindrone (AYGESTIN) 5 mg tablet Take 1 tablet by mouth twice daily for 7 days. (Patient not taking: Reported on 09/28/2023) cyanocobalamin (VITAMIN B-12) 100 mcg tab Take 100 mcg by mouth once daily. ergocalciferol, vitamin D2, (VITAMIN D2 ORAL) Take by mouth. MULTIVITAMIN NO.43-IRON-FA ORAL Take by mouth. albuterol (PROVENTIL) 2.5 mg /3 mL (0.083 %) nebulizer solution Use 3 mL via nebulizer every 4 hours as needed for wheezing/shortness of breath. ammonium lactate (AMLACTIN) 12 % lotion apply to rash 2-3 times a day as needed (Patient not taking: Reported on 09/28/2023) Allergies: ALLERGIES Allergen Reactions Gabapentin Other: See Comments Prednisone Mental Status Change Tree And Shrub Poll* Other: See Comments Topamax [Topiramate] Other: See Comments anxiety FAMILY HISTORY Problem Relation Age of Onset Diabetes Maternal Grandmother Diabetes Maternal Uncle Social History Tobacco Use Smoking status: Former Current packs/day: 0.00 Average packs/day: 0.3 packs/day for 24.0 years (6.0 ttl pk-yrs) Types: Cigarettes Start date: 03/19/1990 Quit date: 2015 Years since quittin.7 Smokeless tobacco: Never Tobacco comments: quit in 05/15 Vaping Use Vaping status: Never Used Substance Use Topics Alcohol use: Yes Comment: rarely Drug use: No REVIEW OF SYSTEMS As above General: No weight loss, fever, chills, malaise Cardiac: No CP, palpitations, or leg swelling Respiratory: No cough or SOB GI: No N/V or diarrhea, no blood in stool : No burning or frequency with urination, no blood in urine Hematology: No blood thinners All other reviewed and negative other than HPI. PHYSICAL EXAM: LMP 04/28/2023 (Approximate) GEN: Well appearing, alert, in no acute distress, well-hydrated, well nourished. EXT: Excess skin on lower extremities ABD: More excess skin vertically Panniculus 1 cm Well-healed pfannenstiel scar Striae above umbilicus Panniculus stops at hips The sensitive examination was discussed with the Patient or Patient's Authorized Refrigeration Repair Supervisor. As applicable, any other physician, advance practice provider, medical student, or other health professional student that will be observing or involved in the sensitive examination for educational or training purposes was discussed with the Patient or Authorized Refrigeration Repair Supervisor. The Patient or Authorized Refrigeration Repair Supervisor has agreed to proceed with the sensitive examination. (Sensitive examination includes inspection and/or palpation of the breasts, pelvis, prostate and anorectal regions) Assessment: Raul Chong is a 43 year old female who presents for pre op of panniculectomy. Patient is a candidate for a panniculectomy Plan: Will refer patient to Dr. Panchal who will be able to schedule in a more timely fashion as patient does not want to wait un (more content not included)... [id number] Tele[facility] encounter Note* Telephone Encounter - Jessica Desir - 11/23/2023 12:35 PM EDT Patient calling back as she has not heard anything from the Plastic Surgery Department since she sent the insurance authorization code. She needs to get her surgery scheduled in either November or December, if possible due to insurance. She can be reached at [phone]. [facility]10-14-[facility] Miscellaneous Notes* Telephone Encounter - Jessica Desir - 11/23/2023 12:35 PM EDT Patient calling back as she has not heard anything from the Plastic Surgery Department since she sent the insurance authorization code. She needs to get her surgery scheduled in either November or December, if possible due to insurance. She can be reached at [phone]. * Telephone Encounter - Rachna Lynn - 11/17/2023 3:00 PM EDT Patient calling with Authorization Code for surgery: [place] [employer] [id number] documented in this encounterThe [facility]10-[facility] Telephone encounter Note * Telephone Encounter - Rachna Lynn - 11/17/2023 3:00 PM EDT Patient calling with Authorization Code for surgery: [place] [employer] [id number] [facility]09-20-[facility] NoteHNO ID: [id number] Author: MAIRA ESCAMILLA MD Service: ? Author Type: Physician Type: Progress Notes Filed: 10/30/2023 17:48 Note Text: No chief complaint on file. HPI: Patient presents today for office visit for follow up. Did eeg and had her see neurology. Eeg was negative. Performed zio. Has known svt. Has not been treated with meds. Is stable. Had her see optho. Has not done but feels eye issue may have been migraine. Has had a rough week. Having headaches all week. Feels lightheaded on standing frequently this week. No chest pain or shortness of breath or more gi issues. Is contemplating skin reduction surgery. Asks if she should talk to plastics regarding her breasts as well. She states her breasts are very pendulous and often painful at night. No masses. She feels it is due to her weight loss. Is overdue for mammogram. Given her pain suggested we may want to change it to a diagnostic. Note was copied and pasted, without alteration from previous ov: Reason for visit: Chest pain/headaches. Which facility: [facility] Date of visit: 08/19-08/21/23 Diagnosis: Acute chest pain, and migraine Testing done: Troponin negative, stress test negative, Echo shows an EF of 60%, ct and MRI brain negative. Treatment given: None. Chest pain workup was normal. Labs, stress test and Echo were all unremarkable. Was unclear what chest pain was due to but determined it was not cardiac related. Possibly related to esophageal spasm. She states she feel it was different Current symptoms: No current symptoms today. On 08/22/23 complained of just not feeling right. At times was feeling like she was going to pass out. Was having trouble finding words and felt somewhat confused. . States she will think to do something and then does the opposite. Has not happened since. Does have a hx of migraines. She often has visual aura but had several episodes of darkened vision that were different from her previous migraines. Has been ok now. No chest pain or shortness of breath. No edema. No palpitations. No seizures. No focal numbness or weakness. Has not seen neurology at any point. Also has been ill for 24 hours. Slightly wheezy. Her son is ill. Some cough and wheeze. No sore throat or ear pain. No gi issues. ZIO: RHYTHM FINDINGS: Patient had a min HR of 45 bpm, max HR of 150 bpm, and avg HR of 74 bpm. Predominant underlying rhythm was Sinus Rhythm. Slight P wave morphology changes were noted. 2 Supraventricular Tachycardia runs occurred, the run with the fastest interval lasting 4 beats with a max rate of 112 bpm, the longest lasting 9 beats with an avg rate of 92 bpm. Isolated SVEs were rare (<1.0%), SVE Couplets were rare (<1.0%), and SVE Triplets were rare (<1.0%). Isolated VEs were rare (<1.0%), VE Couplets were rare (<1.0%), and no VE Triplets were present. MEDICATIONS: MEDICATIONS: Current Outpatient Medications Medication Sig pregabalin (LYRICA) 75 mg capsule Take 1 capsule by mouth once daily for 180 days. calcium carbonate 400 mg (1,000 mg) chew Take 1,000 mg by mouth once daily. ferrous sulfate (IRON) 325 mg (65 mg iron) tablet Take 325 mg by mouth once daily. valACYclovir (VALTREX) 500 mg tablet Take 4 tablets twice daily X 1 day. Then start one tablet by mouth daily thereafter. SUMAtriptan (IMITREX) 100 mg tablet Take 1 tablet (100 mg) by mouth as needed. START AT ONSET OF HEADACHE. MAY REPEAT DOSE AFTER 2 HOURS. cyanocobalamin (VITAMIN B-12) 100 mcg tab Take 100 mcg by mouth once daily. ergocalciferol, vitamin D2, (VITAMIN D2 ORAL) Take by mouth. MULTIVITAMIN NO.43-IRON-FA ORAL Take by mouth. fexofenadine (LAKISHA ALLERGY) 180 mg tablet Take 1 tablet by mouth once daily. (Patient not taking: Reported on 09/28/2023) norethindrone (AYGESTIN) 5 mg tablet Take 1 tablet by mouth twice daily for 7 days. (Patient not taking: Reported on 09/28/2023) albuterol (PROVENTIL) 2.5 mg /3 mL (0.083 %) nebulizer solution Use 3 mL via nebulizer every 4 hours as needed for wheezing/shortness of breath. ammonium lactate (AMLACTIN) 12 % lotion apply to rash 2-3 times a day as needed (Patient not taking: Reported on 09/28/2023) No current facility-administered medications for this visit. ALLERGIES: ALLERGIES Allergen Reactions Gabapentin Other: See Comments Prednisone Mental Status Change [employer] Poll* Other: See Comments Topamax [Topiramate] Other: See Comments anxiety PAST MEDICAL HISTORY Diagnosis Date Autoimmune disease (HCC) Degeneration of intervertebral disc, site unspecified Depression Migraines Mild intermittent asthma Obesity Osteoarthritis of both knees Plantar fasciitis Psoriasis PAST SURGICAL HISTORY Procedure Laterality Date ADENOIDECTOMY PRIMARY Adenoidectomy DELIVERY ONLY , low cervical LAPAROSCOPY SURG CHOLECYSTECTOMY 2013 PAST SURGICAL HISTORY OF Bilateral arthoscopy to ankles, scar tissue removal and (more content not included)...[facility]09-20-2024 History of Present illness Narrative* Maira Escamilla MD - 10/30/2023 4:48 PM EDT No chief complaint on file. HPI: Patient presents today for office visit for follow up. Did eeg and had her see neurology. Eeg was negative. Performed zio. Has known svt. Has not been treated with meds. Is stable. Had her see optho. Has not done but feels eye issue may have been migraine. Has had a rough week. Having headaches all week. Feels lightheaded on standing frequently this week. No chest pain or shortness of breath or more gi issues. Is contemplating skin reduction surgery. Asks if she should talk to plastics regarding her breasts as well. She states her breasts are very pendulous and often painful at night. No masses. She feels it is due to her weight loss. Is overdue for mammogram. Given her pain suggested we may want to change it to a diagnostic. Note was copied and pasted, without alteration from previous ov: Reason for visit: Chest pain/headaches. Which facility: [facility] Date of visit: 08/19-08/21/23 Diagnosis: Acute chest pain, and migraine Testing done: Troponin negative, stress test negative, Echo shows an EF of 60%, ct and MRI brain negative. Treatment given: None. Chest pain workup was normal. Labs, stress test and Echo were all unremarkable. Was unclear what chest pain was due to but determined it was not cardiac related. Possibly related to esophageal spasm. She states she feel it was different Current symptoms: No current symptoms today. On 08/22/23 complained of just not feeling right. At times was feeling like she was going to pass out. Was having trouble finding words and felt somewhat confused. . States she will think to do something and then does the opposite. Has not happened since.Does have a hx of migraines. She often has visual aura but had several episodes of darkened vision that were different from her previous migraines. Has been ok now. No chest pain or shortness of breath. No edema. No palpitations. No seizures. No focal numbness or weakness. Has not seen neurology at any point. Also has been ill for 24 hours. Slightly wheezy. Her son is ill. Some cough and wheeze. No sore throat or ear pain. No gi issues. ZIO: RHYTHM FINDINGS: Patient had a min HR of 45 bpm, max HR of 150 bpm, and avg HR of 74 bpm. Predominant underlying rhythm was Sinus Rhythm. Slight P wave morphology changes were noted. 2 Supraventricular Tachycardia runs occurred, the run with the fastest interval lasting 4 beats with a max rate of 112 bpm, the longest lasting 9 beats with an avg rate of 92 bpm. Isolated SVEs were rare (<1.0%), SVE Couplets were rare (<1.0%), and SVE Triplets were rare (<1.0%). Isolated VEs were rare (<1.0%), VE Couplets were rare (<1.0%), and no VE Triplets were present. MEDICATIONS: MEDICATIONS: Current Outpatient Medications Medication Sig pregabalin (LYRICA) 75 mg capsule Take 1 capsule by mouth once daily for 180 days. calcium carbonate 400 mg (1,000 mg) chew Take 1,000 mg by mouth once daily. ferrous sulfate (IRON) 325 mg (65 mg iron) tablet Take 325 mg by mouth once daily. valACYclovir (VALTREX) 500 mg tablet Take 4 tablets twice daily X 1 day. Then start one tablet by mouth daily thereafter. SUMAtriptan (IMITREX) 100 mg tablet Take 1 tablet (100 mg) by mouth as needed. START AT ONSET OF HEADACHE. MAY REPEAT DOSE AFTER 2 HOURS. cyanocobalamin (VITAMIN B-12) 100 mcg tab Take 100 mcg by mouth once daily. ergocalciferol, vitamin D2, (VITAMIN D2 ORAL) Take by mouth. MULTIVITAMIN NO.43-IRON-FA ORAL Take by mouth. fexofenadine (LAKISHA ALLERGY) 180 mg tablet Take 1 tablet by mouth once daily. (Patient not taking: Reported on 09/28/2023) norethindrone (AYGESTIN) 5 mg tablet Take 1 tablet by mouth twice daily for 7 days. (Patient not taking: Reported on 09/28/2023) albuterol (PROVENTIL) 2.5 mg /3 mL (0.083 %) nebulizer solution Use 3 mL via nebulizer every 4 hours as needed for wheezing/shortness of breath. ammonium lactate (AMLACTIN) 12 % lotion apply to rash 2-3 times a day as needed (Patient not taking: Reported on 09/28/2023) No current facility-administered medications for this visit. ALLERGIES: ALLERGIES Allergen Reactions Gabapentin Other: See Comments Prednisone Mental Status Change [employer] Poll* Other: See Comments Topamax [Topiramate] Other: See Comments anxiety PAST [...] Social History Tobacco Use Smoking status: Former Current packs/day: 0.00 Average packs/day: 0.3 packs/day for 24.0 years (6.0 ttl pk-yrs) Types: Cigarettes Start date: 03/19/1990 Quit date: 2014 Years since quittin.7 Smokeless tobacco: Never Tobacco comments: quit in 05/15 Vaping Use Vaping status: Never Used Substance Use Topics Alcohol use: Yes Comment: rarely Drug use: No Reviewed current medications, allergies, past medical history, surgical history, family history andsocial history today. REVIEW OF SYSTEMS All other reviewed and negative other than HPI. HEALTH MAINTENANCE: Reviewed health maintenance issues today and recommended the following in detail. Depression Screening Never done Anxiety Screening Never done HIV Screening Never done Hepatitis B Vaccine(1 of 3 - 19+ 3-dose series) Never done DTaP,Tdap,Td Vaccine(1 - Tdap) due on 06/29/2013 Mammogram Screening due on 03/07/2023 Covid-19 Vaccine( season) due on 10/11/2023 Influenza Vaccine(1) due on 10/11/2023 VITALS: BP 98/58 Pulse 77 Wt 88 kg (194 lb 0.1 oz) LMP 04/28/2023 (Approximate) SpO2 98% BMI 28.65 kg/m BP w/Orthostatic Vitals Date and Time Orthostatic BP Orthostatic Pulse BP Pulse BP Position BP Site BP Cuff Size 10/30/23 1715 99/65 72 -- -- Standing -- -- 10/30/23 1713 99/62 67 -- -- Sitting Left Arm -- 10/30/23 1711 106/68 64 -- -- Supine Left Arm -- 10/30/23 1646 -- -- 98/58 77 -- -- -- Last 4 Encounter Wt Readings: Date: Wt: 10/30/2023 88 kg (194 lb 0.1 oz) 10/08/2023 86.2 kg (190 lb) 10/06/2023 88.5 kg (195 lb 3.2 oz) 09/28/2023 89.4 kg (197 lb 3.2 oz) PHYSICAL EXAMINATION: General appearance: Well appearing, alert, in no acute distress, well-hydrated, well nourished. Skin: Skin color, texture, turgor normal, no suspicious rashes or lesions Head: Normocephalic, no masses, lesions, tenderness or abnormalitie Lungs: Lungs clear to auscultation. No wheezing, rhonchi, rales Heart: RRR without murmur, gallop, or rubs. No ectopy Abdomen: Normal abdominal exam, Abdomen soft, non-tender. Bowel sounds normal. No masses, organomegaly Extremities: No deformities, edema, skin discoloration, clubbing or cyanosis. Good capillary refill. Musculoskeletal: No joint swelling, deformity, or tenderness Peripheral pulses: Normal Neuro: Negative. ASSESSMENT/PLAN: 1. SVT (supraventricular tachycardia) (HCC) - ICD9: 427.89, ICD10: I47.10 (primary diagnosis) - hold on adding med given bp. If worsens, to cardiology. 2. Need for vaccination - ICD9: V05.9, ICD10: Z23 - [employer] COVID-19 VACCINE AGE 12+ YR - INFLUENZA VACCINE, AGE 6MO-64YR, TRIVALENT (AFLURIA, FLULAVAL, FLUVIRIN, FLUZONE) 3. Lightheaded - ICD9: 780.4, ICD10: R42 - she can feel her occasional svt episodes. This is all positional. Push fluids and salt. Get up slowly. Get labs. Call if worsens. 4. Palpitations - ICD9: 785.1, ICD10: R00.2 - as above. 5. Mild intermittent asthma, unspecified whether complicated - ICD9: 493.90, ICD10: J45.20 - stable. 6. Headache, unspecified headache type - ICD9: 784.0, ICD10: R51.9 - call if worsens. 7. Breast pain - ICD9: 611.71, ICD10: N64.4 - ARUN DIAGNOSTIC BILATERAL - US BREAST LTD RIGHT - US BREAST LTD LEFT 8. History of gastric bypass - ICD9: V45.86, ICD10: Z98.84 - COMPLETE BLOOD COUNT AND DIFFERENTIAL - COMPREHENSIVE METABOLIC PANEL - IRON AND TIBC - VITAMIN D 25 HYDROXY - VITAMIN B12 - FOLATE, SERUM 9. Vitamin D deficiency - ICD9: 268.9, ICD10: E55.9 - VITAMIN D 25 HYDROXY Maira Escamilla MD [facility] encounter Note * Telephone Encounter - Krystian Ward MA - 10/28/2023 4:51 PM EDT Patient informed. Krystian Ward MA [facility]09-18-2024 Miscellaneous Notes* Telephone Encounter - Krystian Ward MA - 10/28/2023 4:51 PM EDT Patient informed. Krystian Ward MA * Telephone Encounter - Maira Escamilla MD - 10/28/2023 4:18 PM EDT Ok if worsens before hand, eR * Telephone Encounter - Krystian Ward MA - 10/28/2023 3:55 PM EDT Patient informed and verbalized understanding. States she's been told previously she has SVT. Does get palpitations from time to time. C/o of migraine headaches still. Mentions an episode the other day where she states she almost passed out. Was very shaky after episode. Refers to it feeling like maybe her sugar drops but states hasnever had an issue with her BS. Ate a PB&J after and felt better. Also mentions a tingling/numbness sensation in her ear for almost two weeks. Scheduled with you on Thursday10/30/23. Krystian Ward MA * Telephone Encounter - Maira Escamilla MD - 10/28/2023 3:43 PM EDT Monitor shows very small amount of svt which is where the upper chambers beat early. Not a dangerous rhythm however can cause palpitations etc. Follow up to discuss how doing [facility] Tele[facility] encounter Note * Telephone Encounter - Maira Escamilla MD - 10/28/2023 4:18 PM EDT Ok if worsens before hand, eR [facility] Telephone encounter Note* Telephone Encounter - Krystian Ward MA - 10/28/2023 3:55 PM EDT Patient informed and verbalized understanding. States she's been told previously she has SVT. Does get palpitations from time to time. C/o of migraine headaches still. Mentions an episode the other day where she states she almost passed out. Was very shaky after episode. Refers to it feeling like maybe her sugar drops but states hasnever had an issue with her BS. Ate a PB&J after and felt better. Also mentions a tingling/numbness sensation in her ear for almost two weeks. Scheduled with you on Thursday10/30/23. Krystian Ward MA [facility]09-18-2024 Telephone encounter Note* Telephone Encounter - Maira Escamilla MD - 10/28/2023 3:43 PM EDT Monitor shows very small amount of svt which is where the upper chambers beat early. Not a dangerous rhythm however can cause palpitations etc. Follow up to discuss how doing [facility]08-29-2024 NoteHNO ID: [id number] Author: ALY CARRENO LPN Service: ? Author Type: LICENSED NURSE Type: Progress Notes Filed: 10/08/2023 10:20 Note Text: DATE OF PHOTOS: 10/08/2023 Body Part: Abdomen and Leg(s) Aly Carreno LPN October 08, 2023 10:20 [facility]08-29-2024 History of Present illness Narrative* Aly Carreno LPN - 10/08/2023 10:20 AM EDT DATE OF PHOTOS: 10/08/2023 Body Part: Abdomen and Leg(s) Aly Carreno LPN October 08, 2023 10:20 AM documented in [facility]The [facility] History of Present illness Narrative* Bonny Henry APRN.[facility] - 10/08/2023 10:00 AM EDT Plastic Surgery Note CC: Consult for Panniculectomy Pt reports loose skin on her thighs which she wants removed HPI: Raul is a 43 year old female here today to discuss excess abdominal skin and fat after massive weight loss. Patient is s/p Gastric bypass: laparoscopic. Date of bariatric surgery (more than 18 months): Yes 10/01/21 Highest weight: 424 lbs Current weight: 190 lbs Weight loss of 100 lbs or more: Yes, 234 lbs Use of pharmacotherapy for weight loss/management (Ozempic, Wegovy, Mounjaro, Phetermine): No Patients weight has been stable for 6 months. The patient does complain of recurrent rashes, intertrigo with dermatitis occuring on the opposed surface of the skin that has not responded to conventional treatment for a period of 3 months. Treatments tried: Cream: miconazole The patient does not have a history of infection. 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 She canonly wear stretch clothes Work: Yes, she has to do heavy lifting and the loose skin is in the way and hurts her back and getsa pinched nerve Trouble with clothes fitting properly: Yes History of Abdominal Hernia: No History of Abdominal Surgery: Yes, gallbladder surgery, gastric bypass and e-ltsttiez-5 OB HISTORY: Para: 2 Plan for future pregnancies: No Recurrent Miscarriages (>3): no REVIEW OF SYSTEMS All negative except for: GENERAL: []weight loss []malaise []fevers HEENT: [x]frequent or significant headaches []changes in hearing []change in vision []nose bleeds []other nasal problems NECK: []lumps []goiter []pain and significant neck swelling RESPIRATORY: []cough []hemoptysis []wheezing []COPD []dyspnea []shortness of breath CARDIOVASCULAR: [x]chest pain []leg swelling []hypertension []CHF []palpitations GI: []nausea []vomiting []diarrhea MUSCULOSKELETAL: [] joint pain or swelling [x] back pain []muscle pain SKIN: [x] skin lesions [x]rash [x]itching PSYCH: []sleep disturbance []mood disorder []recent psychosocial stressors HEMATOLOGY/LYMPHOLOGY: []prolonged bleeding []bruising easily []swollen nodes ENDOCRINE: []cold intolerance []heat intolerance []polyuria []polydipsia []goiter [] Diabetes History of DVT/PE/Clotting Disorder: No History of Autoimmune Disease: Yes, eczema, porosis Nicotine Use: Yes, pt vapes Objective: LMP 04/28/2023 (Approximate) PAST MEDICAL HISTORY No date: Autoimmune disease (HCC) No date: Degeneration of intervertebral disc, site unspecified No date: Depression No date: Migraines No date: Mild intermittent asthma No date: Obesity No date: Osteoarthritis of both knees No date: Plantar fasciitis No date: Psoriasis PAST SURGICAL HISTORY No date: ADENOIDECTOMY PRIMARY <AGE 12 Comment: Adenoidectomy No date: DELIVERY ONLY Comment: , low cervical 2014: LAPAROSCOPY SURG CHOLECYSTECTOMY No date: PAST SURGICAL HISTORY OF Comment: Bilateral arthoscopy to ankles, scar tissue removal and tendon lengthening No date: TONSILLECTOMY PRIMARY/SECONDARY <AGE 11 Comment: Tonsillectomy Current Outpatient Medications Medication Sig Dispense Refill pregabalin (LYRICA) 75 mg capsule Take 1 capsule by mouth once daily for 180 days. 30 capsule 5 calcium carbonate 400 mg (1,000 mg) chew Take 1,000 mg by mouth once daily. ferrous sulfate (IRON) 325 mg (65 mg iron) tablet Take 325 mg by mouth once daily. valACYclovir (VALTREX) 500 mg tablet Take 4 tablets twice daily X 1 day. Then start one tablet by mouth daily thereafter. 38 tablet 4 SUMAtriptan (IMITREX) 100 mg tablet Take 1 tablet (100 mg) by mouth as needed. START AT ONSET OF HEADACHE. MAY REPEAT DOSE AFTER 2 HOURS. 9 tablet 5 fexofenadine (LAKISHA ALLERGY) 180 mg tablet Take 1 tablet by mouth once daily. (Patient not taking: Reported on 09/28/2023) 30 tablet 11 norethindrone (AYGESTIN) 5 mg tablet Take 1 tablet by mouth twice daily for 7 days. (Patient not taking: Reported on 09/28/2023) 14 tablet 0 cyanocobalamin (VITAMIN B-12) 100 mcg tab Take 100 mcg by mouth once daily. ergocalciferol, vitamin D2, (VITAMIN D2 ORAL) Take by mouth. MULTIVITAMIN NO.43-IRON-FA ORAL Take by mouth. albuterol (PROVENTIL) 2.5 mg /3 mL (0.083 %) nebulizer solution Use 3 mL via nebulizer every 4 hours as needed for wheezing/shortness of breath. 36 mL 1 ammonium lactate (AMLACTIN) 12 % lotion apply to rash 2-3 times a day as needed (Patient not taking: Reported on 09/28/2023) 1 Bottle 4 No current facility-administered medications for this visit. ALLERGIES Allergen Reactions Gabapentin Other: See Comments Prednisone Mental Status Change [employer] [place] Poll* Other: See Comments Topamax [Topiramate] Other: See Comments anxiety Physical Exam: A&Ox3, NAD Abdominal Exam: soft, non-tender, non-distended, Localized adiposity and excess skin of the abdomen lap russell and well healed scars Intra-abdominal adiposity: Yes Diastasis recti: Yes Evidence of Hernia: No Striae: Yes A/P: Raul is a 43 year old female w/ history of significant weight loss following bariatric surgery, symptomatic abdominal panniculus. Patient is a candidate for a panniculectomy, could reasonably improve the physical functional impairment. Discussed increased risk for infection, bleeding, wound healing complications, anesthesia complications with higher BMI. Encouraged patient to continue with weight loss for safety and best aesthetic outcome. The risks, benefits and options were discussed with the ptatient The risks included but not limitedto pain, bleeding, infection, heavy scarring, damage to surrounding structures, fluid collections, asymmetry, and need for further procedures. Photographs have been taken and will be sent to the insurance company as necessary. Follow up in 6 weeks 30 Minutes total visit spent face to face with patient. Greater than 50% of the time was spent for counseling and coordination of care, discussing treatment options and recommendations. Bonny Henry APRN.[facility] October 08, 2023 documented in this encounterThe [facility] NoteHNO ID: [id number] Author: BONNY HENRY APRN.[facility] Service: ? Author Type: Nurse Practitioner Type: Progress Notes Filed: 10/08/2023 12:35 Note Text: Plastic Surgery Note CC: Consult for Panniculectomy Pt reports loose skin on her thighs which she wants removed HPI: Raul is a 43 year old female here today to discuss excess abdominal skin and fat after massive weight loss. Patient is s/p Gastric bypass: laparoscopic. Date of bariatric surgery (more than 18 months): Yes 10/01/21 Highest weight: 424 lbs Current weight: 190 lbs Weight loss of 100 lbs or more: Yes, 234 lbs Use of pharmacotherapy for weight loss/management (Ozempic, Wegovy, Mounjaro, Phetermine): No Patients weight has been stable for 6 months. The patient does complain of recurrent rashes, intertrigo with dermatitis occuring on the opposed surface of the skin that has not responded to conventional treatment for a period of 3 months. Treatments tried: Cream: miconazole The patient does not have a history of infection. 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 She can only wear stretch clothes Work: Yes, she has to do heavy lifting and the loose skin is in the way and hurts her back and gets a pinched nerve Trouble with clothes fitting properly: Yes History of Abdominal Hernia: No History of Abdominal Surgery: Yes, gallbladder surgery, gastric bypass and s-cclxdogs-2 OB HISTORY: Para: 2 Plan for future pregnancies: No Recurrent Miscarriages (>3): no REVIEW OF SYSTEMS All negative except for: GENERAL: []weight loss []malaise []fevers HEENT: [x]frequent or significant headaches []changes in hearing []change in vision []nose bleeds []other nasal problems NECK: []lumps []goiter []pain and significant neck swelling RESPIRATORY: []cough []hemoptysis []wheezing []COPD []dyspnea []shortness of breath CARDIOVASCULAR: [x]chest pain []leg swelling []hypertension []CHF []palpitations GI: []nausea []vomiting []diarrhea MUSCULOSKELETAL: [] joint pain or swelling [x] back pain []muscle pain SKIN: [x] skin lesions [x]rash [x]itching PSYCH: []sleep disturbance []mood disorder []recent psychosocial stressors HEMATOLOGY/LYMPHOLOGY: []prolonged bleeding []bruising easily []swollen nodes ENDOCRINE: []cold intolerance []heat intolerance []polyuria []polydipsia []goiter [] Diabetes History of DVT/PE/Clotting Disorder: No History of Autoimmune Disease: Yes, eczema, porosis Nicotine Use: Yes, pt vapes Objective: LMP 04/28/2023 (Approximate) PAST MEDICAL HISTORY No date: Autoimmune disease (HCC) No date: Degeneration of intervertebral disc, site unspecified No date: Depression No date: Migraines No date: Mild intermittent asthma No date: Obesity No date: Osteoarthritis of both knees No date: Plantar fasciitis No date: Psoriasis PAST SURGICAL HISTORY No date: ADENOIDECTOMY PRIMARY Comment: Adenoidectomy No date: DELIVERY ONLY Comment: , low cervical 2014: LAPAROSCOPY SURG CHOLECYSTECTOMY No date: PAST SURGICAL HISTORY OF Comment: Bilateral arthoscopy to ankles, scar tissue removal and tendon lengthening No date: TONSILLECTOMY PRIMARY/SECONDARY Comment: Tonsillectomy Current Outpatient Medications Medication Sig Dispense Refill pregabalin (LYRICA) 75 mg capsule Take 1 capsule by mouth once daily for 180 days. 30 capsule 5 calcium carbonate 400 mg (1,000 mg) chew Take 1,000 mg by mouth once daily. ferrous sulfate (IRON) 325 mg (65 mg iron) tablet Take 325 mg by mouth once daily. valACYclovir (VALTREX) 500 mg tablet Take 4 tablets twice daily X 1 day. Then start one tablet by mouth daily thereafter. 38 tablet 4 SUMAtriptan (IMITREX) 100 mg tablet Take 1 tablet (100 mg) by mouth as needed. START AT ONSET OF HEADACHE. MAY REPEAT DOSE AFTER 2 HOURS. 9 tablet 5 fexofenadine (LAKISHA ALLERGY) 180 mg tablet Take 1 tablet by mouth once daily. (Patient not taking: Reported on 09/28/2023) 30 tablet 11 norethindrone (AYGESTIN) 5 mg tablet Take 1 tablet by mouth twice daily for 7 days. (Patient not taking: Reported on 09/28/2023) 14 tablet 0 cyanocobalamin (VITAMIN B-12) 100 mcg tab Take 100 mcg by mouth once daily. ergocalciferol, vitamin D2, (VITAMIN D2 ORAL) Take by mouth. MULTIVITAMIN NO.43-IRON-FA ORAL Take by mouth. albuterol (PROVENTIL) 2.5 mg /3 mL (0.083 %) nebulizer solution Use 3 mL via nebulizer every 4 hours as needed for wheezing/shortness of breath. 36 mL 1 ammonium lactate (AMLACTIN) 12 % lotion apply to rash 2-3 times a day as needed (Patient not taking: Reported on 09/28/2023) 1 Bottle 4 No current facility-administered medications for this visit. ALLERGIES Allergen Reactions Gabapentin Other: See Comments Prednisone Mental Statu (more content not included)...[facility] 10-06-[facility] Instructions* Patient Instructions* Preethi Skinner PA-C - 10/06/2023 9:32 AM EDT Preventative: can take supplements to help prevent headache Abortive: Imitrex with onset of headache EEG to make sure you don't have seizure activity Follow up in 6 months for headaches Headache Preventive Treatment: Please keep in mind that it takes 4-6 weeks for the medication to start working well and 2-3 monthsat the appropriate dose before deciding if it will be useful or not. If it is not helping at all bythis time, then we will discuss other medications to try. Supplements may take 3-6 months until yousee full effect. Natural supplements: Magnesium Oxide 500 mg at bed Coenzyme Q10 300 mg in AM Vitamin B2- 200 mg twice a day Feverfew 50 mg twice a day Vitamins and herbs that show potential Magnesium: Magnesium (250 mg twice a day or 500 mg at bed) has a relaxant effect on smooth muscles such as blood vessels. Individuals suffering from frequent or daily headache usually have low magnesium levels which can be increase with daily supplementation of 400-750 mg. Three trials found 40-90%average headache reduction when used as a preventative. Magnesium also demonstrated the benefit in menstrually related migraine. Magnesium is part of the messenger system in the serotonin cascade andit is a good muscle relaxant. It is also useful for constipation which can be a side effect of other medications used to treat migraine. Good sources include nuts, whole grains, and tomatoes. Magnesium comes in many different forms: Magnesium glycinate is a good choice for those with a sensitive stomach who have gastrointestinal side effects such as diarrhea with other forms of magnesium. It is anecdotally also helpful with anxiety and sleep. Magnesium threonate also has low risk of gastrointestinal side effects and anecdotally helpful with cognitive function and brain fog symptoms. Magnesium malate has low gastrointestinal side effects and is reportedly more energizing and anecdotally often helpful in fibromyalgia and chronic fatigue syndrome. Magnesium citrate is one of the most studied, popular, and well-absorbed forms of magnesium. It can also be mixed easily with liquids if you can't take pills. However, it comes w ith a higher risk of diarrhea and gastrointestinal side effects, although this could be helpful forthose with constipation. Magnesium oxide is also well studied, cheap, and often used for heartburn and indigestion. However, it is not well absorbed and can have some laxative side effects as well, so can also be helpful for constipation. Riboflavin (vitamin B 2) 200 mg twice a day. This vitamin assists nerve cells in the production of ATP a principal energy storing molecule. It is necessary for many chemical reactions in the body. There have been at least 3 clinical trials of riboflavin using 400 mg per day all of which suggested that migraine frequency can be decreased. All 3 trials showed significant improvement in over half ofmigraine sufferers. The supplement is found in bread, cereal, milk, meat, and poultry. Most Americans get more riboflavin than the recommended daily allowance, however riboflavin deficiency is not necessary for the supplements to help prevent headache. Feverfew: Feverfew is a common garden herb [place] and popular in [facility] as a treatment for disorders typically controlled by aspirin. The mechanism of action is unknown but is believed to be related to a chemical called parthenolide which helps the body use serotonin more effectively. Serotonin helps prevent migraine and assists with resolution when it occurs. Parthenolide also inhibits the release of histamine which is linked to pain and inflammation. Consistency of active ingredients in different products can be a problem. Some formulations don't have the active ingredient (parthenolide) that prevents migraine. A parthenolide content of 0.2% is generally recommended. Typical dosage is one capsule 3 times a day. Coenzyme Q10: This is present in almost all cells in the body and is critical component for the conversion of energy. Recent studies have shown that a nutritional supplement of CoQ10 can reduce the frequency of migraine attacks by improving the energy production of cells as with riboflavin. Doses of 150 mg twice a day have been shown to be effective. Melatonin: Increasing evidence shows correlation between melatonin secretion and headache conditions. Melatonin supplementation has decreased headache intensity and duration. It is widely used as a sleep aid. Sleep is natures way of dealing with migraine. A dose of 3 mg is recommended to start for headaches including cluster headache. Higher doses up to 15 mg has been reviewed for use in Cluster headache and have been used. The rationale behind using melatonin for cluster is that many theories regarding the cause of Cluster headache center around the disruption of the normal circadian rhythm in the brain. This helps restore the normal circadian rhythm. Jinny: Jinny has a small amount of antihistamine and anti-inflammatory action which may help headache. It is primarily used for nausea and may aid in the absorption of other medications. HEADACHE DIET: Foods and beverages which may trigger migraine Note that only 20% of headache patients are food sensitive. You will know if you are food sensitiveif you get a headache consistently 20 minutes to 2 hours after eating a certain food. Only cut out a food if it causes headaches, otherwise you might remove foods you enjoy! What matters most for diet is to eat a well balanced healthy diet full of vegetables and low fat protein, and to not miss meals. Chocolate, other sweets ALL cheeses except cottage and cream cheese Dairy products, yogurt, sour cream, ice cream Liver Meat extracts (Bovril, Marmite, meat tenderizers) Meats or fish which have undergone aging, fermenting, pickling or smoking. These include: Hotdogs,salami,Lox,sausage, mortadellas,smoked salmon, pepperoni, Pickled egan Pods of broad veag (Swedish beans, Croatian pea pods, Icelandic (dahlia) beans, anthony and navy beans Ripe avocado, ripe banana Yeast extracts or active yeast preparations such as Reyes's or Denny's (commercial bakes goodsare permitted) Tomato based foods, pizza (lasagna, etc.) MSG (monosodium glutamate) is disguised as many things; look for these common aliases: Monopotassium glutamate Autolysed yeast Hydrolysed protein Sodium caseinate flavorings all natural preservatives Nutrasweet Avoid all other foods that convincingly provoke headaches. Headache Prevention Strategies: 1. Maintain a headache diary; learn to identify and avoid triggers. Common triggers include: Emotional triggers: Emotional/Upset family or friends Emotional/Upset occupation Business reversal/success Anticipation anxiety Crisis-serious Post-crisis periodNew job/position Physical triggers: Vacation Day Weekend Strenuous Exercise High Altitude Location New Move Day Physical Illness Oversleep/Not enough sleep Weather changes Light: Photophobia or light sesnitivity treatment involves a balance between desensitization and reduction in overly strong input. Use dark polarized glasses outside, but not inside. Avoid bright or fluorescent light, but do not dim environment to the point that going into a normally lit room hurts. Consider FL- 41 tint lenses, which reduce the most irritating wavelengths without blocking too muchlight. These can be obtained at [employer] or [employer]: see list above. 2. Limit use of acute treatments (fqwm-hwm-kmwoceo medications, triptans, etc.) to no more than 2 days per week or 10 days per month to prevent medication overuse headache (rebound headache). 3. Follow a regular schedule (including weekends and holidays): Don't skip meals. Eat a balanced diet. 8 hours of sleep nightly. Minimize stress. Exercise 30 minutes per day. Being overweight is associated with a 5 times increased risk of chronic migraine. Keep well hydrated and drink 6-8 glasses of water per day. 4. Initiate non-pharmacologic measures at the earliest onset of your headache. Rest and quiet environment. Relax and reduce stress. Aapuols4Upjmd is a free [place] that can instruct you on some simple relaxtionand breathing techniques. Http://Zoe Majeste is a free website that provides teaching videos on relaxation. Also, there are many apps that can be downloaded for mindful relaxation. An [place] called YOGA NIDRA will help walk you through mindfulness. Cold compresses. 5. Don't wait!! Take the maximum allowable dosage of prescribed medication at the first sign of migraine. 6. Compliance: Take prescribed medication regularly as directed and at the first sign of a migraine. 7. Communicate: Call your physician when problems arise, especially if your headaches change, increase in frequency/severity, or become associated with neurological symptoms (weakness, numbness, slurred speech, etc.). 8. Headache/pain management therapies: Consider various complementary methods, including medication, behavioral therapy, psychological counselling, biofeedback, massage therapy, acupuncture, dry needling, and other modalities. Such measures may reduce the need for medications. Counseling for pain ma nagement, where patients learn to function and ignore/minimize their pain, seems to work very well. 9. Recommend changing family's attention and focus away from patient's headaches. Instead, emphasize daily activities. If first question of day is 'How are your headaches/Do you have a headache today?', then patient will constantly think about headaches, thus making them worse. Goal is to re-directattention away from headaches, toward daily activities and other distractions. 10. Helpful Websites: www.AmericanHeadacheSociety.org www.migrainetrust.org www.headaches.org www.migraine.org.uk www.achenet.org 11. HEADACHE EXPECTATIONS: There are many types of headaches, and only a rare few in which complete relief can be expected. Ingeneral, there is no cure for headache, especially migraine based headaches. There is nothing available that completely prevents headaches from occurring, breaking through, or having periodic flare-ups and fluctuations. Regardless of what you are using on a daily basis for prevention, episodic headaches should still be expected, and periods where frequency may escalate and fluctuate are unavoidable. There is no quick fix for most headaches. Furthermore, the longer you have had high frequency headaches (such as chronic daily headache), the longer it will likely take to expect any improvement. In fact, some people will never improve, regardless of how many medications or other treatments we try.Our treatment strategy is to evaluate for possible causes of your headache, although testing is usually always normal, even in cases of daily continuous headaches for years. Most types of headache such as migraine are electrical brain disorders (similar to how epilepsy is an electrical brain disorders). Therefore, there is no testing that will reveal this dysfunctional electrical circuitry suchon MRI, or other testing. We try to find a medication that may help lessen the frequency and/or severity of your headaches. The goal is not to completely stop them from happening, although if that happens, great! Different people respond to different medications, and some people just don't respond to anything, so it's usually a matter of trying different options. We can not predict if or when exac tly you will respond to a treatment that we provide. Preventive headache medications take 4-6 weeks to start working, and 2-3 months to see full effect,assuming you reach an effective dose. Therefore, calling or messaging frequently because you have aheadache flare prior to the 3 month hussein is unlikely to change anything, and unfortunately there isnothing available that will expedite this, so please try to avoid this. Our recommendation will gene rally be to give it adequate time first. If you are unable to wait it out for medications to work, we can also try IV infusions for some temporary relief. O In general, the best that preventive medications or other treatments (including Botox) are able to offer in migraine management (variable in other headache types) is a 50% improvement in frequency and/or severity of headache. That is our goal, and any additional benefit is considered a bonus. Some people do significantly better than this, others do not get close to this. Therefore, if your headaches are not improving by at least 3 months on your preventive strategy, contact us and we can discuss further adjustments. Keep in mind that complete headache cure is not a realistic expectation. Our Team: The nursing staff, and medical assistants are a major part of YOUR TREATMENT TEAM and will be handling your phone calls, Bjondhart Messages and inquiries, if any. Unless explicitly told otherwise at the time of your office visit, your study results and ensuing treatment plans will be released via [employer] and discussed during your follow-up appointment. MyChart: Please ask the schedulers to give you an activation code. The main way of communication isby Bjondhart rather than phone lines, so if you have not signed up, please do so. [employer] is also theway that you can review your labs and testing. We are not able to contact everyone to tell them results are normal. If you do not hear back from us regarding testing you have had, it should be considered normal or within normal range. If you have any questions about the results, you are free to message us. [employer] is meant for simple questions regarding medications, possible side effects, or other simplestraight forward questions in limited sentences, rather than multiple paragraphs of discussion. [employer] is not meant for, or efficient for these complex questions, extensive questions, extensive medication adjustments, complex new symptoms or concerns. These issues beyond simple questions require afollow up visit with myself, one of our physician assistants, nurse practitioners, or a Virtual Visit via computer or smart phone, as detailed further down. Refills: Please pay attention to when your refills will need to be renewed. Due to the volume of phone callsdaily, this could potentially take a few days, although we certainly try to honor your refill requests as soon as we can. You should call at least 1 week in advance of needing a refill to ensure you do not run out of medication. Keep in mind that refill requests on Fridays may not be filled until the following week. In regards to blood work, testing, and radiology reports these are released automatically to the patients. We do not comment on most testing on [employer] in a message or commentary unless there is a concern. You will not receive a message from me of the result unless there is a specific concern of the result I need you to address further in care with us or your primary medical team. Make sure to check your my chart email or denver. As an international referral center for syncope, autonomic dysfunction, general neurology, headachecare, neuromuscular disease, and other related conditions, seeing patients from across the world, we do not have the resource of time or staffing to address inquiries for accommodations. As such, we do not provide or complete requests for work accommodations, FMLA, disability, or other such forms. We recommend seeking guidance through your primary care provider for these requests. We are happy toprovide our office notes from your visits and other tests or evaluations performed through our clinic, which can be made available upon request to assist you with this process. documented in [facility]The [facility] NoteHNO ID: [id number] Author: PREETHI SKINNER PA-C Service: ? Author Type: Physician Field Service Poultry Technician Type: Progress Notes Filed: 10/06/2023 10:03 Note Text: Neurology Outpatient Clinic Date: October 06, 2023 Patient Name: Raul Chong Referring physician: Maira Aldana [place] [phone] Consult requested for headaches by Dr. Escamilla. Recommendations will be communicated via shared medical record or [place] mail. Primary physician: [place] [id number] Reason for Evaluation: Headaches Subjective HPI: Patient arrived 15 minutes late. Raul Chong is a 43 year old left-handed female who presents for evaluation of headaches. Dr. Escamilla is the referring physician. Dr. Maira Escamilla MD is the PCP. Chart review: Saw PCP on 07/22/23 for migraine. She has been taking lyrica. She has been taking the medication for migraine prevention and fibromyalgia. Mild headache today, but has been without lyrica for a couple of days. Refers when she is out, does notice she is more tired, and more headaches. Refers that she has been taking the lyrica just once daily - doesn't feel like she is needing it as much since she lost weight. Saw GLYNN in the past (2015) for daily migraine. Was on lyrica 150mg at the time. Recent B12 was low. PCP ordered EEG. Patient presents for evaluation of headache. Patient notes that she has had chronic migraines since she was in her teens, gets headaches very intermittently, 1 or 2 times a month and well aborted with Imitrex. Notes that today she has a mild headache, no migrainous features with it and she notes that she gets these milder headaches more frequently than her migraines. However, notes that she is primarily here to discuss an atypical episode that occurred last month. Notes that she began experiencing a black line through her vision bilaterally along with flashing lights around this line lasting for about 30 minutes. When this started she began also experiencing some tingling in her left hand as well as some chest pain so she went to the emergency department concerned that she was having a heart attack. Cardiac workup was negative, notes that the visual changes lasted for about 30 minutes and then she had a significant headache to the front and back of her head with associated sensitivity to light and dizziness. Notes that this was slightly different than her previous migraine so she was concerned. Primary care ordered an EEG but she has not yet obtained this. Is that she was very fatigued afterwards but no tongue biting or incontinence. Did not lose consciousness with this episode. No history of seizures in the past, no significant family history of epilepsy. No other new concerns today. Does see her eye doctor annually and is due this year. Current Headache treatment Preventative: Lyrica 75mg Abortive: Imitrex Medications effective? yes # of doses of abortive medications per month: Few Previous Medications: TPM Lyrica Mg Elavil Gabapentin Zoloft Headache Description Onset: teenager Total headache days per month: 1 per month Total headache attacks per month: 1 per month Headache free days: Yes Duration of attacks: few hours (last one was a few days) Severity of headaches? 09/18 Onset to Peak: gradual Location: front and back. Aura: kaleidescope, flashes (30 minutes) bilateral. Prodrome:none. Accompanying symptoms: photophobia, lightheaded, numbness fingers on left, language disturbance, confusion. Quality:throbbing and aching . Worse with activity: sometimes Triggers: none. Cough/sneeze/valsalva as trigger: no Positional changes: No Most common time of day for headache to begin:anytime. Time missed from work or school: yes Risk Factors Visual-Motion sensitivity: No Tobacco Use: Yes, vape Alcohol Use: No Other substances: No Caffeine: Yes, 2 cups a day Neck Pain /Back Pain: Yes, low back Fibromyalgia: Yes, History of Motor Vehicle Accident: No History of Traumatic Brain Injury and/or Concussion: No History of severe infection: No History of Syncope: No Obesity: No, Body mass index is 28 Eye doc- due - no Family History Migraine or other headaches in the family: mother with migraines Aneurysms in a first degree relative: No Brain tumors in the family: No Other neurological illness in the family: no ROS Review of Systems CONSTITUTIONAL: No reported fevers, chills, night sweats, or significant unintentional weight loss. EYES: No visual changes indicated. No eye pain or orbital swelling reported. HEENT: No hearing changes or vertiginous symptoms indicated. No history of nose bleeds reported. RESPIRATORY: No reported cough, wheezing and dyspnea. CARDIOVASCULAR: Negative for significant chest pain, and palpitations per report. GI: Negative for significant abdomi (more content not included)...[facility] History of Present illness Narrative* Preethi Skinner PA-C - 10/06/2023 9:13 AM EDT Images from the original note were not included. Neurology Outpatient Clinic Date: October 06, 2023 Patient Name: Raul Chong Referring physician: Maira Aldana [place] [phone] Consult requested for headaches by Dr. Escamilla. Recommendations will be communicated via shared medical record or [place] mail. Primary physician: Maira Aldana [place] [phone] Reason for Evaluation: Headaches Subjective HPI: Patient arrived 15 minutes late. Raul Chong is a 43 year old left-handed female who presents for evaluation of headaches. Dr. Escamilla is the referring physician. Dr. Maira Escamilla MD is the PCP. Chart review: Saw PCP on 07/22/23 for migraine. She has been taking lyrica. She has been taking the medication for migraine prevention and fibromyalgia. Mild headache today, but has been without lyrica for a couple of days. Refers when she is out, does notice she is more tired, and more headaches. Refers that she has been taking the lyrica just once daily - doesn't feel like she is needing it asmuch since she lost weight. Saw GLYNN in the past (2016) for daily migraine. Was on lyrica 150mg at the time. Recent B12 was low. PCP ordered EEG. Patient presents for evaluation of headache. Patient notes that she has had chronic migraines sinceshe was in her teens, gets headaches very intermittently, 1 or 2 times a month and well aborted with Imitrex. Notes that today she has a mild headache, no migrainous features with it and she notes that she gets these milder headaches more frequently than her migraines. However, notes that she is primarily here to discuss an atypical episode that occurred last month. Notes that she began experiencing a black line through her vision bilaterally along with flashing lights around this line lasting for about 30 minutes. When this started she began also experiencing some tingling in her left hand as well as some chest pain so she went to the emergency department concerned that she was having a heart attack. Cardiac workup was negative, notes that the visual changes lasted for about 30 minutes and then she had a significant headache to the front and back of her head with associated sensitivityto light and dizziness. Notes that this was slightly different than her previous migraine so she was concerned. Primary care ordered an EEG but she has not yet obtained this. Is that she was very fatigued afterwards but no tongue biting or incontinence. Did not lose consciousness with this episode.No history of seizures in the past, no significant family history of epilepsy. No other new concerns today. Does see her eye doctor annually and is due this year. Current Headache treatment Preventative: Lyrica 75mg Abortive: Imitrex Medications effective? yes # of doses of abortive medications per month: Few Previous Medications: TPM Lyrica Mg Elavil Gabapentin Zoloft Headache Description Onset: teenager Total headache days per month: 1 per month Total headache attacks per month: 1 per month Headache free days: Yes Duration of attacks: few hours (last one was a few days) Severity of headaches? 09/18 Onset to Peak: gradual Location: front and back. Aura: kaleidescope, flashes (30 minutes) bilateral. Prodrome:none. Accompanying symptoms: photophobia, lightheaded, numbness fingers on left, language disturbance, confusion. Quality:throbbing and aching . Worse with activity: sometimes Triggers: none. Cough/sneeze/valsalva as trigger: no Positional changes: No Most common time of day for headache to begin:anytime. Time missed from work or school: yes Risk Factors Visual-Motion sensitivity: No Tobacco Use: Yes, vape Alcohol Use: No Other substances: No Caffeine: Yes, 2 cups a day Neck Pain /Back Pain: Yes, low back Fibromyalgia: Yes, History of Motor Vehicle Accident: No History of Traumatic Brain Injury and/or Concussion: No History of severe infection: No History of Syncope: No Obesity: No, Body mass index is 28 Eye doc- due - no Family History Migraine or other headaches in the family: mother with migraines Aneurysms in a first degree relative: No Brain tumors in the family: No Other neurological illness in the family: no ROS Review of Systems CONSTITUTIONAL: No reported fevers, chills, night sweats, or significant unintentional weight loss. EYES: No visual changes indicated. No eye pain or orbital swelling reported. HEENT: No hearing changes or vertiginous symptoms indicated. No history of nose bleeds reported. RESPIRATORY: No reported cough, wheezing and dyspnea. CARDIOVASCULAR: Negative for significant chest pain, and palpitations per report. GI: Negative for significant abdominal discomfort, blood in stools or black stools reported. No recent reported change in bowel habits. : No reported history of incontinence. No dark/cola colored urine reported. MUSCLOSKELETAL: No history of significant joint pain or swelling, or myalgias reported. SKIN: Negative for pertinent lesions, rash, and itching per report. HEMATOLOGY/ONCOLOGY: Negative for reported prolonged bleeding, bruising easily, and swollen nodes. ENDOCRINE: Negative for reported significant cold or heat intolerance, no reported goitrous neck swelling or polydipsia PSYCH: No reported depression or anxiety symptoms. No reported SI or HI. NEURO: Per HPI above. Sleep: not very good, few hours a night Mood: anxious, some depression Energy: Low, Stress: moderate Medications: Current Outpatient Medications Medication Sig Dispense Refill pregabalin (LYRICA) 75 mg capsule Take 1 capsule by mouth once daily for 180 days. 30 capsule 5 calcium carbonate 400 mg (1,000 mg) chew Take 1,000 mg by mouth once daily. ferrous sulfate (IRON) 325 mg (65 mg iron) tablet Take 325 mg by mouth once daily. valACYclovir (VALTREX) 500 mg tablet Take 4 tablets twice daily X 1 day. Then start one tablet by mouth daily thereafter. 38 tablet 4 SUMAtriptan (IMITREX) 100 mg tablet Take 1 tablet (100 mg) by mouth as needed. START AT ONSET OF HEADACHE. MAY REPEAT DOSE AFTER 2 HOURS. 9 tablet 5 cyanocobalamin (VITAMIN B-12) 100 mcg tab Take 100 mcg by mouth once daily. ergocalciferol, vitamin D2, (VITAMIN D2 ORAL) Take by mouth. MULTIVITAMIN NO.43-IRON-FA ORAL Take by mouth. albuterol (PROVENTIL) 2.5 mg /3 mL (0.083 %) nebulizer solution Use 3 mL via nebulizer every 4 hours as needed for wheezing/shortness of breath. 36 mL 1 fexofenadine (LAKISHA ALLERGY) 180 mg tablet Take 1 tablet by mouth once daily. (Patient not taking: Reported on 09/28/2023) 30 tablet 11 norethindrone (AYGESTIN) 5 mg tablet Take 1 tablet by mouth twice daily for 7 days. (Patient not taking: Reported on 09/28/2023) 14 tablet 0 ammonium lactate (AMLACTIN) 12 % lotion apply to rash 2-3 times a day as needed (Patient not taking: Reported on 09/28/2023) 1 Bottle 4 No current facility-administered medications for this visit. ROS: Her ROS was positive for that mentioned in the HPI. Otherwise a 10-point ROS was completed andwas negative. ALLERGIES Allergen Reactions Gabapentin Other: See Comments Prednisone Mental Status Change Tree And Shrub Poll* Other: See Comments Topamax [Topiramate] Other: See Comments anxiety Past Medical History: PAST MEDICAL HISTORY No date: Autoimmune disease (HCC) No date: Degeneration of intervertebral disc, site unspecified No date: Depression No date: Migraines No date: Mild intermittent asthma No date: Obesity No date: Osteoarthritis of both knees No date: Plantar fasciitis No date: Psoriasis Family History: FAMILY HISTORY Problem Relation Age of Onset Diabetes Maternal Grandmother Diabetes Maternal Uncle Also includes: . Social History: Social History Tobacco Use Smoking status: Former Current packs/day: 0.00 Average packs/day: 0.3 packs/day for 24.0 years (6.0 ttl pk-yrs) Types: Cigarettes Start date: 03/19/1990 Quit date: 2015 Years since quittin.6 Smokeless tobacco: Never Tobacco comments: quit in 05/15 Vaping Use Vaping status: Never Used Substance Use Topics Alcohol use: Yes Comment: rarely Drug use: No Objective 10/06/23 0917 BP: 107/67 Pulse: 61 Resp: 16 SpO2: 100% Weight: 88.5 kg (195 lb 3.2 oz) Physical Examination General Appearance: Well appearing, alert, in no acute distress, well-hydrated, well nourished. Head: Normocephalic Pulm: Breathing comfortably Neck: Supple Psych: Cooperative, appropriate affect Neurological Examination: Mental Status: Alert and Oriented to Place, Person, Time and Situation and Patient follows commands.. Language: Is intact to Comprehension, Fluency and Repetition Cranial Nerves: CNII: Visual acuity normal, visual caldwell full to confrontation CNIII, IV, : Pupils equal, round and reactive to light, full extraoccular movements, without nystagmus CN V: Facial sensation intact bilaterally to fine touch CN VII: Facial muscles symmetric and strong CN VIII: Hears finger rub well bilaterally CN IX: Gag Reflex not examined CN X: Palate elevates symmetrically CN XI: Full strength shoulder shrug bilaterally CN XII: Tongue protrusion full and midline Motor Exam: Tone - Normal Tone noted in all extremities Bulk - Normal bulk noted in all muscles tested. Inspection - Normal, no fasciculations or tremors noted. Power: MUSCLES Upper Extremity RIGHT LEFT Deltoid 5/5 5/5 Biceps 5/5 5/5 Triceps 5/5 5/5 Wrist Extension 5/5 5/5 Wrist Flexion 5/5 5/5 Finger Flexion 5/5 5/5 Finger Extension 5/5 5/5 Finger Abd 5/5 5/5 Finger Add 5/5 5/5 MUSCLES Lower Extremity RIGHT LEFT Hip Flexion 5/5 5/5 Hip Extension 5/5 5/5 BiFem (Knee Flex) 5/5 5/5 Quads (Knee Ext) 5/5 5/5 Gastroc (Plantflx) 5/5 5/5 TibAnt (Dorsiflx) 5/5 5/5 FlxHLong (Toe Flex) 5/5 5/5 ExtHLong (Toe Ext) 5/5 5/5 Sensory Examination Sensation is intact to light touch. Reflexes Right Left Bicep 2/4 2/4 BrRad 2/4 2/4 Knee 1/4 1/4 Ankle 1/4 1/4 Lion Response Negative Negative Coordination: finger-to- nose-finger intact bilaterally and [id number] intact bilaterally. Gait: Patient's gait is normal, can heel and toe walk and can tandem walk Romberg: Negative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 Bring all medications you take, including over the counter medications, herbals and other supplements with you to your doctor s visit. Patients and families are reminded to discard old lists and to update any records with all medication providers or retail pharmacies. Education Materials Using an Incentive Spirometer An incentive spirometer is a device that helps you do deep breathing exercises. These exercises expand your lungs, aid in circulation, and help prevent pneumonia. Deep breathing exercises also help you breathe better and improve the function of your lungs by: Keeping your lungs clear Strengthening your breathing muscles Helping prevent respiratory complications or problems The incentive spirometer gives you a way to take an active part in your recovery. A nurse or therapist will teach you breathing exercises. To do these exercises, you will breathe in through your mouth and not your nose. The incentive spirometer only works correctly if you breathe in through your mouth. Steps to clear lungs Step 1. Exhale normally. Then, inhale normally. Relax and breathe out. Step 2. Place your lips tightly around the mouthpiece. Make sure the device is upright and not tilted. Step 3. Inhale as much air as you can through the mouthpiece (don't breathe through your nose). Inhale slowly and deeply. Hold your breath long enough to keep the balls or disk raised for at least 3 to 5 seconds, or as instructed by your healthcare provider. Some spirometers have an indicator to let you know that you are breathing in too fast. If the indicator goes off, breathe in more slowly. Step 4. Repeat the exercise regularly. Do this exercise every hour while you're awake, or as instructed by your healthcare provider. If you were taught deep breathing and coughing exercises, do them regularly as instructed by your healthcare provider. Follow-up care Make a follow up appointment, or as directed. Also, follow up with your healthcare provider as advised or if your symptoms don't improve or continue to get worse. When to call your healthcare provider Call your healthcare provider right away if you have any of the following: Fever 100.4 (38 C) or higher, or as directed by your healthcare provider Brownish, bloody, or smelly sputum (phlegm that you cough up) Call 911 Call 911 if any of these occur: Shortness of breath that doesn't get better after taking your medicine Cool, moist, pale or blue skin Trouble breathing or swallowing, wheezing Fainting or loss of consciousness Feeling of dizziness or weakness, or a sudden drop in blood pressure Feeling very ill Lightheadedness Chest pain or rapid heart rate [phone] [employer]. [address] [place] [address], [place] [address]. All rights reserved. This information is not intended as a substitute for professional medical care. Always follow yourhealthcare professional's instructions. Additional Information VACCINATE! IT SAVES LIVES! Members of the community who have not yet received the COVID-19 vaccine and would like to receive it can visit one of [facility] vaccine clinics. There are many vaccine clinic locations within the [facility]. For locations and available times, please visit www.[email or web address].[place].gov/. It is important to note that some COVID mobile vaccine clinics are held outdoors and may be canceled in rainy or stormy conditions. To learn more about pediatric vaccinations (ages 5-11), we invite you to visit the [facility] webpage. https://www.[email or web address]/pages/[email or web address]-Wqdzp-Olyudlukirj-Nbgjufefnq-Enytr-Ynx stions.htmlTo learn more about the COVID-19 vaccine, we invite you to visit the CDC website for a list of frequently asked questions. https://www.cdc.gov/coronavirus/2019-ncov/vaccines/faq.html [facility] Patient Portal Access Instructions: Stay connected with your healthcare team and access your personal medical information anytime with the [facility] Patient Portal. If you would like a full copy of your medical records please contact the [facility] Medical Records Department Thursday through Thursday between 8a.m. and 4:30p.m. Please follow the directions below to access the portal: 1.Access the email account you provided upon registration to the hospital.2.Look for an invitation email from [facility].3.Open the email and access the invitation link: Accept Invitation to [facility]4.Fill in the required caldwell to create your account. Sign into [email or web address] with your username and password that you created in the above steps to stay up to date. You can then view a summary of results, a summary of your visits, and the ability to download your summaries to your computer or send the information securely to a physician. Remember that your healthcare information is confidential, so carefully consider who you will allow to register on the [facility] Patient Portal for access to your information. You can also access the [facility] Patient Portal on the [employer]. Simply click on Health Records under HealthData and then click on the [employer] logo. HOW TO SAFELY DISPOSE OF PRESCRIPTION MEDICATIONS Please use one of the following methods to safely dispose of your unused medications. 1.Use a drug disposal kit: the drug disposal pouch allows you to safely discard your old and unuseddrugs. Ask your nurse to give you one when you are discharged.2.Visit a local take-back location: Many local pharmacies and police departments have programs that collect old and unwanted prescriptiondrugs. Call your local pharmacy or go to http://SilkStart.Ultromex/1F0Ed6q to find one close to you.3.Make use of household items: Use cat litter or old coffee grounds to dispose medications if other options arenot available. Mix your drugs with these household products, seal them in an airtight container andthrow it into the garbage. Call [facility]: [phone] to be sure your drugs can be disposed of in this way. Some medicines may require a different approach.4.Never flush your medications down the toilet. IF YOU HAVE BEEN PRESCRIBED AN OPIOIDS FOR PAIN If you have been prescribed an opioid (such as hydrocodone, oxycodone or morphine), it is critical to understand the possible side effects and risks of opioid pain medications. Even when taken as directed, opioids can have several side effects including: Tolerance, meaning you might need to take more of a medication for the same pain relief. Nausea, vomiting and/or constipation. Sleepiness, dizziness, dry mouth, confusion, depression or itching. Physical dependence, meaning you have withdrawal symptoms when a medication is stopped ? this can develop within a few days. KNOW YOUR RESPONSIBILITIES It is important to know exactly how much and how often to take the opioid pain medications you are prescribed. Never take opioids in higher amounts or more often than prescribed. Do not combine opioids with alcohol or other drugs that cause drowsiness, such as benzodiazepines, also known as benzos,including diazepam and alprazolam, muscle relaxants or sleep aids. Never sell or share prescriptionopioids. This is illegal. Store opioids in a secure place and out of reach of others (including children, family, friends and visitors). The last page(s) of this document has been signed and retained as a CHART COPY Signatures Patient Education Materials Using an Incentive Spirometer Medication Leaflets My discharge plan and instructions have been reviewed and explained to me and I,RAUL FLEMING understand my current condition and have read and understand these discharge instructions. I have received a written copy of the plan/instructions. If I have questions, I am aware that I should contact my doctor. 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 HISTORY: ORDERING SYSTEM PROVIDED HISTORY: Reason for Exam: left anterior upper rib pain FINDINGS: No visible rib fracture. Left-sided conduction device. Cholecystectomy clips. IMPRESSION: No visible rib fracture. Interpreted by: Damián Medellin Preliminary Report By: Damián Medellin Electronically signed By Damián Medellin Dictated Date: 08/31/2023 6:35:28 PM Prelim Date: 08/31/2023 6:37:06 PM Sign Date: 08/31/2023 6:37:06 PM Ordering Provider: [facility]07-16-2024 History of Present illness Narrative* Wanda Campos, RT(R) - 08/25/2023 3:00 PM EDT Radiology Service Progress Note PATIENT NAME: Raul Chong DATE OF SERVICE: August 25, 2023 TIME: 2:55 PM PATIENT IDENTITY VERIFICATION COMPLETED USING TWO (2) IDENTIFIERS: Name and Date of confirmedby patient verbally. FALL SCREENING: Has the patient had 2 falls in the last year or 1 fall with injury or currently using an Ambulatory Assistive Device (Walker, Cane, Wheelchair, Crutches, etc.)? No PATIENT GENDER DATA: Female. status: : No status: NO. PATIENT RELEVANT IMPLANT DATA REVIEWED: Yes PATIENT PRESENTS WITH AN IMPLANTABLE OR ATTACHED PEDIATRIC PHYSICAL THERAPIST: No RADIOLOGY DEPARTMENT: General X-ray: Exam(s) Completed: Chest X-Ray PERIPHERAL IV DATA: Not applicable SIGNED BY: RT Jerman(R) August 25, 2023 2:55 PM documented in [facility] encounterThe [facility] History of Present illness Narrative* Maira Escamilla MD - 08/25/2023 2:00 PM EDT Patient presents with: Transition Of Care HPI: Patient presents today for office visit for HOSPITAL FOLLOW UP: Reason for visit: Chest pain/headaches. Which facility: [facility] Date of visit: 08/19-08/21/23 Diagnosis: Acute chest pain, and migraine Testing done: Troponin negative, stress test negative, Echo shows an EF of 60%, ct and MRI brain negative. Treatment given: None. Chest pain workup was normal. Labs, stress test and Echo were all unremarkable. Was unclear what chest pain was due to but determined it was not cardiac related. Possibly related to esophageal spasm. She states she feel it was different Current symptoms: No current symptoms today. On 08/22/23 complained of just not feeling right. At times was feeling like she was going to pass out. Was having trouble finding words and felt somewhat confused. . States she will think to do something and then does the opposite. Has not happened since.Does have a hx of migraines. She often has visual aura but had several episodes of darkened vision that were different from her previous migraines. Has been ok now. No chest pain or shortness of breath. No edema. No palpitations. No seizures. No focal numbness or weakness. Has not seen neurology at any point. Also has been ill for 24 hours. Slightly wheezy. Her son is ill. Some cough and wheeze. No sore throat or ear pain. No gi issues. MEDICATIONS: Current Outpatient Medications Medication Sig pregabalin (LYRICA) 75 mg capsule Take 1 capsule by mouth once daily for 30 days. SUMAtriptan (IMITREX) 100 mg tablet Take 1 tablet (100 mg) by mouth as needed. START AT ONSET OF HEADACHE. MAY REPEAT DOSE AFTER 2 HOURS. fexofenadine (LAKISHA ALLERGY) 180 mg tablet Take 1 tablet by mouth once daily. valACYclovir (VALTREX) 500 mg tablet Take 4 tablets twice daily X 1 day. Then start one tablet by mouth daily thereafter. norethindrone (AYGESTIN) 5 mg tablet Take 1 tablet by mouth twice daily for 7 days. cyanocobalamin (VITAMIN B-12) 100 mcg tab Take 100 mcg by mouth once daily. ergocalciferol, vitamin D2, (VITAMIN D2 ORAL) Take by mouth. MULTIVITAMIN NO.43-IRON-FA ORAL Take by mouth. albuterol (PROVENTIL) 2.5 mg /3 mL (0.083 %) nebulizer solution Use 3 mL via nebulizer every 4 hours as needed for wheezing/shortness of breath. ammonium lactate (AMLACTIN) 12 % lotion apply to rash 2-3 times a day as needed No current facility-administered medications for this visit. ALLERGIES: ALLERGIES Allergen Reactions Gabapentin Other: See Comments Prednisone Mental Status Change [employer] Poll* Other: See Comments Topamax [Topiramate] Other: See Comments anxiety PAST [...] date: 03/19/1990 Quit date: 2014 Years since quittin.5 Smokeless tobacco: Never Tobacco comments: quit in 05/15 Vaping Use Vaping Use: Never used Substance Use Topics Alcohol use: Yes Comment: rarely Drug use: No Reviewed current medications, allergies, past medical history, surgical history, family history andsocial history today. REVIEW OF SYSTEMS All other reviewed and negative other than HPI. HEALTH MAINTENANCE: Reviewed health maintenance issues today and recommended the following in detail. HIV Screening Never done Hepatitis B Vaccine(1 of 3 - 19+ 3-dose series) Never done DTaP,Tdap,Td Vaccine(1 - Tdap) due on 06/29/2013 Cervical Cancer Screening due on 08/07/2022 Covid-19 Vaccine(3 - 2022-24 season) due on 10/10/2022 Behavioral Health Screening Never done Mammogram Screening due on 03/07/2023 VITALS: BP 106/70 Pulse 74 Ht 175.3 cm (5' 9) Wt 88.6 kg (195 lb 6.4 oz) LMP 04/28/2023 (Approximate) BMI 28.86 kg/m Last 4 Encounter Wt Readings: Date: Wt: 05/04/2023 103.9 kg (229 lb 0.9 oz) 10/03/2022 124.7 kg (275 lb) 2022 124.8 kg (275 lb 3.2 oz) 06/27/2022 128.4 kg (283 lb) PHYSICAL EXAMINATION: General appearance: Well appearing, [...] teeth and gums normal, oropharynx normal Neck: Negative findings: no adenopathy Lungs: scattered rhonchi. No rales. Moving air well. Heart: RRR without murmur, gallop, or rubs. No ectopy Abdomen: Normal abdominal exam, Abdomen soft, non-tender. Bowel sounds normal. No masses, organomegaly Extremities: No deformities, edema, skin discoloration, clubbing or cyanosis. Good capillary refill. ASSESSMENT/PLAN: 1. Chest pain, unspecified type - ICD9: 786.50, ICD10: R07.9 (primary diagnosis) - call if recurs. Work up negative. 2. Headache, unspecified headache type - ICD9: 784.0, ICD10: R51.9 - given symptoms, ? Migraine variant. Just had labs recently - CONSULT TO NEUROLOGY - EPIL EEG ROUTINE 3. History of migraine - ICD9: V12.49, ICD10: Z86.69 - CONSULT TO NEUROLOGY 4. Vision loss - ICD9: 369.9, ICD10: H54.7 - EPIL EEG ROUTINE - CONSULT TO OPHTHALMOLOGY 5. Near syncope - ICD9: 780.2, ICD10: R55 - EPIL EEG ROUTINE - OUTSIDE VENDOR CARDIAC OUTPATIENT EXTENDED RHYTHM RECORDING (WITHOUT TELEMETRY) 6. URI, acute - ICD9: 465.9, ICD10: J06.9 - Discussed viral etiology and rationale for treatment. - Symptomatic treatment with prn analgesia - Supportive care with fluids and rest - use albuterol prn. Declines steroids. Call if symptoms worsen at all or if not better in one to two weeks - COVID & INFLUENZA A/B & RSV NAAT, ROUTINE - XR CHEST 2V FRONTAL/LAT 7. Confusion - ICD9: 298.9, ICD10: R41.0 - EPIL EEG ROUTINE 8. Acute cough - ICD9: 786.2, ICD10: R05.1 - XR CHEST 2V FRONTAL/LAT 9. 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 Escamilla did ask that if symptoms to worsen she is to go back to ER. [facility] Miscellaneous Notes* Telephone Encounter - Ly Campa LPN - 08/22/2023 9:30 AM EDT Patient aware that Dr. Escamilla did ask that if symptoms to worsen she is to go back to ER. * Telephone Encounter - Ly Campa LPN - 08/22/2023 8:14 AM EDT Patient was admitted to [facility] on 08/20/23 for chest pain and migraine type symptoms. See H&P under scanned documents. Cardiac work-up was negative and CT scan of brain was negative. She is stating that she continues to just not feel right. At times feels like she is going to pass out. Is having trouble finding words and thought process is off. States will think to do something and then does the opposite. Such as putting something in 1 place and ends up putting it in another place was sone of her examples. Did recommend that she stays well hydrated and to go back to ER if concerning symptoms. Hospital follow up was scheduled for 08/25/2023 as this was the soonest. Not sure what else to recommend. Please review and advise. documented in this [facility]The [facility] Telephone encounter Note * Telephone Encounter - Ly Campa LPN - 08/22/2023 8:14 AM EDT Patient was admitted to [facility] on 08/20/23 for chest pain and migraine type symptoms. See H&P under scanned documents. Cardiac work-up was negative and CT scan of brain was negative. She is stating that she continues to just not feel right. At times feels like she is going to pass out. Is having trouble finding words and thought process is off. States will think to do something and then does the opposite. Such as putting something in 1 place and ends up putting it in another place was sone of her examples. Did recommend that she stays well hydrated and to go back to ER if concerning symptoms. Hospital follow up was scheduled for 08/25/2023 as this was the soonest. Not sure what else to recommend. Please review and advise. [facility]07-10-2024 Telephone encounter Note* Telephone Encounter - Td Stiles LPN - 08/19/2023 12:04 PM EDT Pt scheduled with Yanet Marie on 08/23. Td Stiles LPN [facility]07-10-2024 Miscellaneous Notes* Telephone Encounter - Td Stiles LPN - 08/19/2023 12:04 PM EDT Pt scheduled with Yanet Marie on 08/23. Td Stlies LPN * Telephone Encounter - Td Stiles LPN - 08/19/2023 11:03 AM EDT Prescription Refill Information The patient has been identified by name and date of : Yes Caregiver verified no other encounters exist for this prescription request: Yes Caregiver confirmed with patient/requestor that no other refills are due, in the near future, with this provider at this time: Yes The last office visit in the department: 07/22/23 (virtual), last in person visit with PCP team 06/11/22 Does the patient have a future office visit with this provider/department: No Requested Prescriptions Pending Prescriptions Disp Refills pregabalin (LYRICA) 75 mg capsule 30 capsule 0 Sig: Take 1 capsule by mouth once daily for 30 days. *Pt no showed appt 08/03/23. message to pt advising of need for appt. Td Stiles LPN August 19, 2023 11:03 AM documented in this encounterThe [facility] Telephone encounter Note * Telephone Encounter - Td Stiles LPN - 08/19/2023 11:03 AM EDT Prescription Refill Information The patient has been identified by name and date of : Yes Caregiver verified no other encounters exist for this prescription request: Yes Caregiver confirmed with patient/requestor that no other refills are due, in the near future, with this provider at this time: Yes The last office visit in the department: 07/22/23 (virtual), last in person visit with PCP team 06/11/22 Does the patient have a future office visit with this provider/department: No Requested Prescriptions Pending Prescriptions Disp Refills pregabalin (LYRICA) 75 mg capsule 30 capsule 0 Sig: Take 1 capsule by mouth once daily for 30 days. *Pt no showed appt 08/03/23. message to pt advising of need for appt. Td Stiles LPN August 19, 2023 11:03 AM [facility]06-12-2024 History of Present illness Narrative* Viviana Marie APRN.SAUSAGE GRINDER - 07/22/2023 4:16 PM EDT Chief Complaint Patient presents with: Telemedicine I have communicated my name and active licensure. The patient's identity and physical location wereverified at the time of this visit. Either the patient or their legal volunteer patient representative has been informed of the risks and benefits of -- and alternatives to -- treatment through a remote evaluation andconsents to proceed with the evaluation remotely. Video was used for evaluation of this patient. Patient is aware of limitations of performing the visit without a face to face visit in the office setting and agrees. Patient agrees to the visit: Yes Patient Location: [facility] Raul Chong is a 42 year old female who is contacted today for a virtual visit This is an established patient of Maira Escamilla MD Reports: needs a refill of her lyrica. She has been taking lyrica. She has been taking the medication for migraine prevention and fibromyalgia. Mild headache today, but has been without lyrica for a couple of days. Refers when she is out, does notice she is more tired, and more headaches. Refers that she has been taking the lyrica just once daily - doesn't feel like she is needing it asmuch since she lost weight. She admits that she has been bruising more. She also has noticed since losing weight w/ bariatric surgery, she is cold all the time. She has notice some nightsweats. Past medical history, appointments, medications, allergies reviewed 07/22/2023 Previous Medical History PAST MEDICAL HISTORY Diagnosis [...] Maternal Uncle Patient Allergies ALLERGIES Allergen Reactions Gabapentin Other: See Comments Prednisone Mental Status Change Environmental [Othe* Intolerance Topamax [Topiramate] Other: See Comments anxiety Current Medications Current Outpatient Medications on File Prior to Visit Medication Sig SUMAtriptan (IMITREX) 100 mg tablet Take 1 tablet (100 mg) by mouth as needed. START AT ONSET OF HEADACHE. MAY REPEAT DOSE AFTER 2 HOURS. fexofenadine (LAKISHA ALLERGY) 180 mg tablet Take 1 tablet by mouth once daily. valACYclovir (VALTREX) 500 mg tablet Take 4 tablets twice daily X 1 day. Then start one tablet by mouth daily thereafter. pregabalin (LYRICA) 75 mg capsule Take 1 capsule by mouth two times a day for 90 days. norethindrone (AYGESTIN) 5 mg tablet Take 1 tablet by mouth twice daily for 7 days. cyanocobalamin (VITAMIN B-12) 100 mcg tab Take 100 mcg by mouth once daily. ergocalciferol, vitamin D2, (VITAMIN D2 ORAL) Take by mouth. MULTIVITAMIN NO.43-IRON-FA ORAL Take by mouth. albuterol (PROVENTIL) 2.5 mg /3 mL (0.083 %) nebulizer solution Use 3 mL via nebulizer every 4 hours as needed for wheezing/shortness of breath. ammonium lactate (AMLACTIN) 12 % lotion apply to rash 2-3 times a day as needed No current facility-administered medications on file prior to visit. Social History Social History Tobacco Use Smoking status: Former Packs/day: 0.25 Years: 24.00 Additional pack years: 0.00 Total pack years: 6.00 Types: Cigarettes Start date: 03/19/1990 Quit date: 2014 Years since quittin.4 Smokeless tobacco: Never Tobacco comments: quit in 05/15 Vaping Use Vaping Use: Never used Substance Use Topics Alcohol use: Yes Comment: rarely Drug use: No EXAM: LMP 04/28/2023 (Approximate) Limited exam as visit was completed over the virtual platform. Virtual visit completed using video, limited exam completed. Patient sounds or appears ill: No General Appearance: Well appearing, alert, in no acute distress, well-hydrated, well nourished. Skin: Skin color normal Head: Normocephalic. No facial swelling or redness. EENT: Eyes nonreddened. No discharge. External ears nonreddened and no swelling. Neck: No mass or lesions. No swelling. FROM Patient is unable to speak in complete sentences: No Patient has labored breathing: No. Patient is audibly coughing: No Psych: Attitude - cooperative, easily engaged in conversation Affect - Euthymic, normal mood Mental status: Alert. Speech is clear and fluent with good repetition, comprehension Appearance - Normal hygiene and grooming appropriate Coordination: No abnormal or extraneous movements. Gait/Stance: Posture is normal. Health Maintenance List HIV Screening Never done Hepatitis B Vaccine(1 of 3 - 19+ 3-dose series) Never done DTaP,Tdap,Td Vaccine(1 - Tdap) due on 06/29/2013 Covid-19 Vaccine(2022- season) due on 10/10/2022 Behavioral Health Screening Never done Mammogram Screening due on 03/07/2023 Annual PCP Team Chronic Disease Visit due on 06/28/2023 Influenza Vaccine(Season Ended) due on 10/11/2023 Cervical Cancer Screening due on 08/07/2024 Spirometry Completed Hepatitis C Screening Completed HPV Vaccine Aged Out Data reviewed Last 5 Encounter BP Readings: Date: BP: 05/04/2023 120/69 10/03/2022 133/75 2022 124/79 06/27/2022 104/64 06/11/2022 110/68 BMI Readings from Last 5 Encounters: 05/04/23 : 33.83 kg/m 10/03/22 : 40.61 kg/m 09/29/22 : 40.64 kg/m 06/27/22 : 41.79 kg/m 05/03/23 : 41.20 kg/m Last 5 Encounter Wt Readings: Date: Wt: 05/04/2023 103.9 kg (229 lb 0.9 oz) 10/03/2022 124.7 kg (275 lb) 2022 124.8 kg (275 lb 3.2 oz) 06/27/2022 128.4 kg (283 lb) 06/11/2022 126.6 kg (279 lb) Medication and allergy list reviewed, reconciled and updated 07/22/2023 ASSESSMENT/PLAN: 1. Migraine without status migrainosus, not intractable, unspecified migraine type - ICD9: 346.90, ICD10: G43.909 (primary diagnosis) Refill lyrica 2. Gastric bypass status for obesity - ICD9: V45.86, ICD10: Z98.84 Check labs. - VITAMIN D 25 HYDROXY - VITAMIN B12 - IRON AND TIBC - FERRITIN - FOLATE, SERUM - VITAMIN B1 (THIAMINE), WHOLE BLOOD 3. Cold intolerance - ICD9: 780.99, ICD10: R68.89 - COMPLETE BLOOD COUNT AND DIFFERENTIAL - THYROID STIMULATING HORMONE - T4 FREE/FREE THYROXINE 4. Hyperglycemia - ICD9: 790.29, ICD10: R73.9 - COMPREHENSIVE METABOLIC PANEL 5. Screening for hyperlipidemia - ICD9: V77.91, ICD10: Z13.220 - LIPID PANEL, NONFASTING 6. Cervical radiculopathy - ICD9: 723.4, ICD10: M54.12 - PREGABALIN 75 MG CAPSULE Discussed treatment plan and patient voices understanding. Patient's questions answered appropriately. Medications and potential side effects were discussed and patient voices understanding. Return for physical. Return to the office as scheduled or as needed for worsening/no improvement. Viviana Marie APRN.SAUSAGE GRINDER documented in this encounterThe [facility]04[facility] Miscellaneous Notes* Telephone Encounter - Maira Escamilla MD - 05/11/2023 12:06 PM EDT Due for check up. * Telephone Encounter - Anan Myles LPN - 05/11/2023 11:44 AM EDT Patient has been identified by name and date of : Yes, Patient phones for refill(s): Requested Prescriptions Pending Prescriptions Disp Refills SUMAtriptan (IMITREX) 100 mg tablet 9 tablet 5 Sig: Take 1 tablet (100 mg) by mouth as needed. START AT ONSET OF HEADACHE. MAY REPEAT DOSE AFTER 2HOURS. fexofenadine (LAKISHA ALLERGY) 180 mg tablet 30 tablet 11 Sig: Take 1 tablet by mouth once daily. valACYclovir (VALTREX) 500 mg tablet 38 tablet 4 Sig: Take 4 tablets twice daily X 1 day. Then start one tablet by mouth daily thereafter. pregabalin (LYRICA) 75 mg capsule 60 capsule 2 Sig: Take 1 capsule by mouth two times a day for 90 days. Date of last office visit in primary care: 06/11/2022 Date of next office visit in primary care: Please advise. Thank you. Anna Myles LPN. documented in this encounterThe [facility] History of Present illness Narrative* Alison Jules, - 05/04/2023 8:44 AM EDT BMI OM PostOp Clinic Note May 04, 2023 Index Surgery Date of Surgery: 10/01/2021 Surgeon: Naresh Schmitz MD Surgical Procedure: LAPAROSCOPIC GASTRIC RESTRICTIVE SURG W/ BYPASS & JACOB-EN-Y 150CM OR LESS Pre-surgical weight: 178.7 kg (394 lb) Total weight loss: 74.8 kg (164 lb 15.1 oz) [place] weight: 76.8 kg (169 lb 5 oz) Excess weight: 101.9 kg (224 lb 11 oz) % of excess body weight lost: 74.8 kg (164 lb 15.1 oz) (73.41% of excess weight loss) Other Bariatric Surgeries None Visit: 19 months Today's Visit: Wt 103.9 kg (229 lb 0.9 oz) BMI 33.83 kg/m2 BMI 33.83 kg/(m^2) Previous Weight: Last 5 Encounter Wt Readings: Date: Wt: 05/04/2023 103.9 kg (229 lb 0.9 oz) 10/03/2022 124.7 kg (275 lb) 2022 124.8 kg (275 lb 3.2 oz) 06/27/2022 128.4 kg (283 lb) 06/11/2022 126.6 kg (279 lb) COMPLICATIONS SINCE LAST VISIT?: NONE INTERVAL HISTORY Here for postop visit, 18 months her only issue has been recurrent candidiasis of the intertriginous areas and folds of the lower abdomen bilaterally for which she uses neomycin or Neosporin to control the infection. She also has some low back pain that she believes is from the excessive skin foldsof the lower abdomen. She no longer has acid reflux and is not using any PPIs. DIET INTAKE: tolerates Phase V diet, including protein with all meals, ie eggs, sauasge for breakfast, skips lunch, and has protein with dinner. Does not eat between meals, and often has cheese between meals. Has not seen the dietitian since February 2022. DAILY SUPPLEMENTS: Yes Calcium: No Multivitamin & Minerals: 1 per day Iron Supplement: 3 chewables daily Vitamin B12: B complex Vitamin D3: 3000 international unit(s) Other: N/A EXERCISE: running, jogging, and yoga SLEEP: VICKY No , CPAP No Current Outpatient Medications Medication Sig pregabalin (LYRICA) 75 mg capsule Take 1 capsule by mouth two times a day for 90 days. valACYclovir (VALTREX) 500 mg tablet Take 4 tablets twice daily X 1 day. Then start one tablet by mouth daily thereafter. cyanocobalamin (VITAMIN B-12) 100 mcg tab Take 100 mcg by mouth once daily. ergocalciferol, vitamin D2, (VITAMIN D2 ORAL) Take by mouth. MULTIVITAMIN NO.43-IRON-FA ORAL Take by mouth. albuterol (PROVENTIL) 2.5 mg /3 mL (0.083 %) nebulizer solution Use 3 mL via nebulizer every 4 hours as needed for wheezing/shortness of breath. SUMAtriptan (IMITREX) 100 mg tablet Take 1 tablet by mouth as needed. START AT ONSET OF HEADACHE. MAY REPEAT DOSE AFTER 2 HOURS. ammonium lactate (AMLACTIN) 12 % lotion apply to rash 2-3 times a day as needed doxycycline hyclate (VIBRAMYCIN) 100 mg capsule Take 1 capsule by mouth every 12 hours. benzonatate (TESSALON PERLES) 100 mg capsule Take 1 capsule by mouth three times daily as needed for cough. albuterol HFA (PROAIR HFA) 90 mcg/actuation inhaler Inhale 2 Puffs as instructed every 4 hours as needed. cefADROxil (DURICEF) 500 mg capsule Take 1 capsule by mouth twice daily. (Patient not taking: Reported on 05/04/2023) fexofenadine (LAKISHA ALLERGY) 180 mg tablet Take 1 tablet by mouth once daily. (Patient not taking: Reported on 05/04/2023) cyclobenzaprine (FLEXERIL) 10 mg tablet Take 1 tablet by mouth three times daily as needed. (Patient not taking: Reported on 05/04/2023) norethindrone (AYGESTIN) 5 mg tablet Take 1 tablet by mouth twice daily for 7 days. ondansetron (ZOFRAN) 4 mg tablet Take 1 tablet by mouth once daily as needed for nausea/vomiting (for nausea.) for up to 40 doses. (Patient not taking: Reported on 05/04/2023) pantoprazole DR (PROTONIX) 40 mg tablet Take [...] taking NSAIDs OBESITY MEDICINE COMORBIDITIES: GERD GERD Resolved (no medication needed for symptoms) PHYSICAL EXAM: BP 120/69 Pulse 62 Ht 175.3 cm (5' 9) Wt 103.9 kg (229 lb 0.9 oz) LMP 04/28/2023 (Approximate) SpO2 99% BMI 33.83 kg/m HEAD: normal exam, neck supple, from, thyroid symmetric, normal size. HEART: Negative. RRR, no murmurs RESPIRATORY: CTA bilaterally ABDOMEN: No abdominal wound issues as the area has been adequately controlled with the daily use ofNeosporin. LOWER EXTREMITIES: Excessive skin of the arms and thighs. Assessment 42 year old female with Class I obesity 18 months s/p LAPAROSCOPIC GASTRIC RESTRICTIVE SURG W/ BYPASS & JACOB-EN-Y 150CM OR LESS, with an excellent, 43.4 % body weight loss. Body mass index is 33.83 kg/m . Currently with healthy lifestyle. not taking supplements Patient Active Problem List Morbid obesity (HCC) [...] Problems No resolved problems to display. Plan Refer to the BMI dietitian for ongoing nutritional education and recommended daily intake of protein., Recommended using an MooBellayn 32 g protein drink as a meal replacement. -Begin calcium citrate 2 caplets twice a day and or the bariatric pal chewable calcium and take 3 daily -Continue to use the Neosporin to the lower abdominal area. I may potentially refer her to plastic surgery once seen for her annual visit in September. -Increase vitamin D3 to 3000 international units daily, continue the current multivitamin, B complex, and iron chewable tablets for which she takes 3 daily. DISPOSITION: Return 5 month for the 2-year annual post-op follow up/ individual office visit EDUCATION: Encouraged to continue with healthy lifestyle changes and incorporate cardiovascular andresistance training, Discussed weight loss expectations after bariatric and metabolic surgery, Advised PT to avoid NSAIDs, smoking tobacco given increased risk of marginal ulcers, or Discussed importance of protein intake as per the RDN note REFERRALS: See above LABS: Today: None today I spent a total of 35 minutes on the date of the service which included [id number] patient care, completing clinical documentation, obtaining and/or reviewing separately obtained history, performing a medically appropriate examination, counseling and educating the patient/family/caregiver, and ordering medications, tests, or procedures. Alison Jules DO documented in this encounterThe [facility]02[facility] Miscellaneous Notes* Telephone Encounter - Anna Myles LPN - 03/23/2023 8:53 AM EST Patient has been identified by name and date of : Yes, Patient phones for refill(s): Requested Prescriptions Pending Prescriptions Disp Refills pregabalin (LYRICA) 75 mg capsule 60 capsule 2 Sig: Take 1 capsule by mouth two times a day for 90 days. Date of last office visit in primary care: 06/27/2022 Date of next office visit in primary care: Visit date not found Please advise. Thank you. Anna Myles LPN. documented in this encounterThe [facility]01[facility] Discharge summary Author [facility] March 05, 2023 4:40pm Note Date/Time March 05, 2023 4 :40pm [facility] Medical Records Department [address] [place] [id number] Emergency Department Summary 03/05/23 MR#: [id number] Acct: [id number] Name: RAUL FLEMING DIANNA Rep #:[id number] : 1980 42 From: Jose Salgado MD PCP: Dr. Maira Escamilla MD Status:PRE E R Location: ED HPI History of Present Illness Chief Complaint: Wound Detail of Chief Complaint: Swollen lymph node right groin for about a month. Informant: patient Onset/Context/Timing Onset: Weeks Context: Gradual Onset Timing: Continuous Current Severity: Mild Maximum Severity: Mild Narrative Narrative: 42-year-old female history of reflux and gastric bypass surgery a year ago in which she is lost 200 pounds. States she is noticed about 3 to 4 weeks ago maybe is always a month a swollen lymph node in the right groin. Slightly tender. She denies any fever or chills recently. Denies any redness to the area. Believes it is infected. She wanted evaluated. No history of any types of cancer. No other lymphadenopathy. Prior similar symptoms: No Recent Illness/Hospitalization: No PFSH PFS Medical History Arthritis GERD (gastroesophageal reflux disease) Migraine Home Medications omeprazole 40 mg capsule,delayed release 40 mg PO DAILY 04/16/18 [History Last Taken 12/15/19] albuterol sulfate 2.5 mg/3 mL (0.083 %) solution for nebulization 2.5 mg inhalation Q4HWA.RT PRN Sob &/Or Wheezing 12/04/18 [History Last Taken Unknown] ipratropium 0.5 mg-albuterol 3 mg (2.5 mg base)/3 mL nebulization soln 3 ml inhalation Q4H.RT PRN Sob &/Or Wheezing ##20 12/04/18 [Rx Last Taken Unknown] pregabalin 75 mg capsule 75 mg PO BID 12/15/19 [History Last Taken 12/15/19] loratadine 10 mg tablet (Claritin) 10 mg PO DAILY 11/05/20 [History Last Taken Unknown] Relafen 06/24/21 [History Last Taken Unknown] phentermine 37.5 mg tablet 37.5 mg PO DAILY 06/24/21 [History Last Taken Unknown] hydrocodone-acetaminophen 5-325mg 5mg-325mg 1 tab PO Q6H PRN pain 3 days #10 tabs 06/27/21 [Rx Last Taken Unknown] ondansetron 4 mg disintegrating tablet 4 mg PO Q8H PRN nausea and vomiting #14 tabs 06/27/21 [Rx Last Taken Unknown] sucralfate 100 mg/mL oral suspension (Carafate) 1 g (10 mL) PO TID 14 days #420 mL 06/27/21 [Rx Last Taken Unknown] albuterol sulfate 2.5 mg/3 mL (0.083 %) solution for nebulization 2.5 mg (3 mL) inhalation Q4H PRN #25 vials 09/30/22 [Rx Last Taken Unknown] doxycycline hyclate 100 mg capsule 100 mg PO BID #20 caps 09/30/22 [Rx Last Taken Unknown] cephalexin 500 mg capsule 500 mg PO Q6 #40 CAPSULES 03/05/23 [Rx Last Taken Unknown] Allergy/AdvReac Type Severity Reaction Status Date / Time gabapentin [From Neurontin] Allergy Swelling Verified 03/05/23 15:14 topiramate [From Topamax] AdvReac Mild TINGLING Verified 03/05/23 15:14 prednisone AdvReac Other Verified 03/05/23 15:14 Surgical History History of bilateral tubal ligation History of Jacob-en-Y gastric bypass Social History household members: significant other Smoking Status: Former smoker substance use type: does not use ROS ROS ED ROS Narrative Denies recent illness in the last 2 weeks. Review of Systems ROS Unobtainable: Denies due to encephalopathy Constitutional Constitutional ED: Denies chills or fever(s) Eyes Eyes: Denies blurry vision ENT ENT ED: Denies ear pain Cardiovascular Cardiovascular: Denies chest pain Respiratory/Chest Respiratory/Chest: Denies cough or dyspnea Gastrointestinal Gastrointestinal: Denies abdominal pain, constipation or diarrhea Genitourinary Genitourinary ED: Denies dysuria or hematuria Musculoskeletal Musculoskeletal: Denies arthralgias or back pain Integumentary Denies abscess Neurologic Neurologic: Denies headache(s) Psychiatric Psychiatric: Denies anxiety Endocrine Endocrinology: Denies cold intolerance Hematologic/Lymphatic Hematologic/Lymphatic: Reports lymphadenopathy Allergic/Immunologic Allergic/Immunologic ED: Denies mouth swelling, tongue swelling or urticaria EXAM Physical Exam Narrative Exam Narrative: Well-appearing 42-year-old female. Vital signs stable afebrile. HEENT exam unremarkable. Neck nontender no lymphadenopathy. Lungs clear to auscultation bilaterally. Heart regular rhythm rate about 75 no murmur. Chest wall and ribsnontender. No axillary lymphadenopathy. Abdomen soft, nontender, nondistended normal bowel sounds no peritoneal signs. Left groin nontender no enlarged lymphnodes. Right groin there is a single solitary enlarged lymph node mildly tender. No erythema. No abscess or drainage. The rest the lymph nodes are notenlarged. There is not a cluster. Full range of motion of both hips and lower extremities. Back nontender. Skin unremarkable. Neurologically she is awake and alert. Const Vital Signs: 03/05/23 15:14 Temperature 97.4 F L Temperature Source Temporal Pulse Rate 75 Respiratory Rate 18 Blood Pressure 101/73 Blood Pressure Mean 82 Pulse Ox 97 Positive well nourished and well developed; Negative for cachectic, contracturesor unkempt General Appearance ED: well developed and NAD; Negative for unkempt, cachectic, contractures, cyanotic, diaphoretic or pallor Nutritional Appearance: Negative for cachectic HEENT Reports moist mucous membranes Negative for trauma or tenderness Eyes PERRL and EOMs intact bilaterally General Eye ED: Negative for pale conjunctiva or scleral icterus Neck no lymphadenopathy, supple and no JVD General: Negative for tenderness Lymph Lymphatic: Negative for other Chest Wall inspection of chest normal and palpation of chest normal Chest: Negative for other Resp normal respiratory effort and clear to auscultation bilaterally Effort and Inspection: Negative for retractions Auscultation: Negative for rales, rhonchi or wheezes Cardio regular rate, regular rhythm, S1 normal heart sound, S2 normal heart sound and no murmurs Palpation: Negative for palpable S3 or palpable S4 Rate: Negative for bradycardia or tachycardic Rhythm: Negative for abnormal rhythm GI normal to inspection, nondistended, normoactive bowel sounds, non-tender, non-distended and no masses Inspection: Negative for abdominal distention Auscultation: normoactive bowel sounds Palpation: soft; Negative for tender or guarding Bladder / Kidney Exam: No other Back/Spine no CVA tenderness General Back: Negative for CVA tenderness Cervical Spine: Negative for cervical spine tenderness Thoracic Spine / Upper Back: Negative for thoracic spinal tenderness or paraspinal muscle tenderness Lumbar Spine / Lower Back: Negative for lumbar spinal tenderness Extremity normal to inspection General Extremety ED: Negative for edema, tenderness or other findings General Extremity: Negative for edema or other findings Neuro oriented x3 and CN's II-XII intact bilaterally Sensorium / Orientation: alert; Negative for orientation impaired, lethargic or stuporous Psych mental status grossly normal Appearance: Negative for unkempt Attitude: No agitated Mood & Affect: Negative for depressed, anxious or tearful Skin no rashes or lesions noted, no wounds and skin turgor normal General Skin Exam: Negative for jaundice or pallor Lesions: No lesion noted Rashes: No rashes noted Trauma: Negative for abrasion Wounds: Negative for wounds noted MDM MDM History & Record Review Discussion w/independent historian: Patient Additional record(s) reviewed:: Prior inpatient record, Prior outpatient record,Prior ED visit and Prior labs Discharge Plan Triage Chief Complaint: Wound ED Provider: Jose Salgado Dx/Rx/DC Orders Clinical Impression: Lymphadenopathy, inguinal Instructions: Lymphadenopathy Prescriptions: New cephalexin 500 mg capsule 500 mg PO Q6 Qty: 40 0RF No Action omeprazole 40 capsule,delayed release(DR/EC) 40 mg PO DAILY albuterol sulfate 2.5 MG/3 ML solution for nebulization 2.5 mg inhalation Q4HWA.RT PRN (Reason: Sob &/Or Wheezing) ipratropium-albuterol 3 ML solution for nebulization 3 ml inhalation Q4H.RT PRN (Reason: Sob &/Or Wheezing) Qty: 20 0RF pregabalin 75 MG capsule 75 mg PO BID loratadine [Claritin] 10 mg Tablet 10 mg PO DAILY phentermine 37.5 mg tablet 37.5 mg PO DAILY Patient Comments: TAKE 1 TABLET BY MOUTH ONCE DAILY FOR 30 DAYS Relafen ondansetron 4 mg tablet,disintegrating 4 mg PO Q8H PRN (Reason: nausea and vomiting) Qty: 14 0RF sucralfate [Carafate] 100 mg/mL suspension 1 g PO TID 14 Days Qty: 420 0RF hydrocodone-acetaminophen 5-325 mg tablet 1 tab PO Q6H PRN (Reason: pain) 3 Days Qty: 10 0RF albuterol sulfate 2.5 mg /3 mL (0.083 %) solution for nebulization 2.5 mg inhalation Q4H PRN Qty: 25 0RF Rx Instructions: Use q4 hours and PRN for wheezing doxycycline hyclate 100 mg capsule 100 mg PO BID Qty: 20 0RF Primary Care Provider: Maira Escamilla Referrals: Maira Escamilla MD [Primary Care Provider] - 1 Week if not improving Activity Restrictions/Additional Instructions: This will be treated as an enlarged infected groin lymph node. You will be placed on antibiotic Keflex 4 times a day for 10 days. Very important if this is not getting better you need to follow-up your primary care physician for further evaluation to ensure it is nothing else going on. Disposition Disposition: Home, Self Care What to do if you have Problems For any increased pain, shortness of breath, bleeding, nausea or vomiting, chestpain, or any unexpected problems, contact your Primary Care Provider. Call [email or web address] [facility] ([phone]) or report to the closest Emergency Room. Call 911 if necessary. 03/05/23 1640 <Electronically signed by Jose Salgado MD> Cosigner Signature (if applicable): CC: Dr. Maira Escamilla MD ~ [facility] Work Phone: [phone]) 871-197608-25-2023 Instructions* Patient Instructions* Anthony Spear APRN.SAUSAGE GRINDER - 10/03/2022 1:17 PM EDT RESPIRATORY INFECTION [...] antibiotics. They are spread by coughs, sneezes, anddirect contact, especially rsey-aw-buof. A respiratory tract infection usually clears up [...] as water, fruit juice, tea, clear soups, andcarbonated beverages. CONTACT YOUR DOCTOR IF : 1. [...] 102 F (39 C). documented in this encounterThe [facility]08-[facility]23 History of Present illness Narrative* Anthony Spear APRN.CNP - 10/03/2022 1:04 PM EDT Subjective HPI Nontoxic-appearing female presents urgent care [...] .Patient presents with: Cough: Chest congestion x1 [facility] 09/30 PAST MEDICAL HISTORY Diagnosis Date [...] of care. This note was generated using Chemclin software. It may contain errors in wording, punctuation, or spelling. Anthony Spear APRN.SAUSAGE GRINDER documented in this encounterThe [facility] Hospital08-22-2023 Miscellaneous Notes* Telephone Encounter - Diane Garrett Ma - 09/30/2022 2:26 PM EDT See nurse triage * Telephone Encounter - Maira Escamilla MD - 09/30/2022 12:14 PM EDT Can we triage this. If not doing well, may need re eval here or er * Telephone Encounter - Marietta Harman LPN - 09/30/2022 10:49 AM EDT Pt called to report the Inhaler is [...] review chart and send appropriate prescriptions to [facility]. Please notify pt when all has been sent so she can go apple picker. Marietta Harman LPN documented in this encounterThe [facility] Hospital08-22-2023 Discharge summary Author [facility] September 30, 2022 4:52pm Note Date/Time September 30, 2022 4: 02pm [facility] Medical Records Department [address] [place] [address] Emergency Department Summary 09/30/22 MR#: [id number] Acct: [id number] Name: FLEMING,RAUL ANN Rep #:[id number] : 1980 42 From: Abhishek Crowder MD PCP: Dr. Maira Escamilla MD Status:REG E R Location: ED HPI History of Present Illness Chief Complaint: Shortness of Breath Narrative Narrative: Patient presents with cough and congestion for 2 days, her son has similar symptoms. She was seen at an urgent care and given an inhaler and a Medrol Dosepak which she started this morning. She has no fevers or chills she continues to have a cough. [facility] Medical History Arthritis GERD (gastroesophageal reflux disease) Migraine Home Medications omeprazole 40 mg capsule,delayed release 40 mg PO DAILY 04/16/18 [History Last Taken 12/15/19] albuterol sulfate 2.5 mg/3 mL (0.083 %) solution for nebulization 2.5 mg inhalation Q4HWA.RT PRN Sob &/Or Wheezing 12/04/18 [History Last Taken Unknown] ipratropium 0.5 mg-albuterol 3 mg (2.5 mg base)/3 mL nebulization soln 3 ml inhalation Q4H.RT PRN Sob &/Or Wheezing ##20 12/04/18 [Rx Last Taken Unknown] pregabalin 75 mg capsule 75 mg PO BID 12/15/19 [History Last Taken 12/15/19] loratadine 10 mg tablet (Claritin) 10 mg PO DAILY 11/05/20 [History Last Taken Unknown] Relafen 06/24/21 [History Last Taken Unknown] phentermine 37.5 mg tablet 37.5 mg PO DAILY 06/24/21 [History Last Taken Unknown] hydrocodone-acetaminophen 5-325mg 5mg-325mg 1 tab PO Q6H PRN pain 3 days #10 tabs 06/27/21 [Rx Last Taken Unknown] ondansetron 4 mg disintegrating tablet 4 mg PO Q8H PRN nausea and vomiting #14 tabs 06/27/21 [Rx Last Taken Unknown] sucralfate 100 mg/mL oral suspension (Carafate) 1 g (10 mL) PO TID 14 days #420 mL 06/27/21 [Rx Last Taken Unknown] albuterol sulfate 2.5 mg/3 mL (0.083 %) solution for nebulization 2.5 mg (3 mL) inhalation Q4H PRN #25 vials 09/30/22 [Rx Last Taken Unknown] Allergy/AdvReac Type Severity Reaction Status Date / Time gabapentin [From Neurontin] Allergy Swelling Verified 09/30/22 15:11 prednisone AdvReac Other Verified 09/30/22 15:11 Surgical History History of bilateral tubal ligation Social History household members: significant other Smoking Status: Former smoker substance use type: does not use ROS ROS ED ROS Narrative Past medical history: Reviewed Medications: Reviewed Social history: Noncontributory Review of systems: General: No fever Eyes: No visual changes ENT: She does not feel upper airway congestion. Neck: No neck pain Cardiovascular: No chest pain Respiratory: Cough and congestion Gastrointestinal: No abdominal pain, nausea vomiting or diarrhea Genitourinary: No dysuria Musculoskeletal: Denies myalgias no difficulty with ambulation Skin: No rash Neurological: No memory loss, confusion or any focal weakness EXAM Physical Exam Narrative Exam Narrative: Physical exam General: Well nourished, Well developed, No Acute Distress Head: Normocephalic, Atraumatic Eyes: Conjunctiva not pale ENT: Moist mucous membranes Neck: Supple, Nontender, No lymphadenopathy Cardiovascular: Regular rate, Regular rhythm Respiratory: She is speaking in full sentences, she does have some bronchial breath sounds and bilateral slight wheezing. Abdomen: Soft, Nontender, Nondistended Back: Nontender, Normal Inspection. Negative for: CVA tenderness Extremities: Nontender, No edema Skin: Normal color, No rash Neurological: Alert, Normal Strength, Normal Sensation Const Vital Signs: 09/30/22 15:11 09/30/22 15:20 09/30/22 15:21 Temperature 97.8 F Temperature Source Temporal Pulse Rate 68 77 Respiratory Rate 22 H 13 Respiratory Effort Short of Breath Respiratory Depth Normal Respiratory Pattern Normal Blood Pressure 131/70 H 120/58 L Blood Pressure Mean 90 78 Pulse Ox 98 98 Oxygen Delivery Method Room Air Room Air Room Air 09/30/22 16:13 Temperature Temperature Source Pulse Rate 65 Respiratory Rate 18 Respiratory Effort Respiratory Depth Respiratory Pattern Normal Blood Pressure Blood Pressure Mean Pulse Ox Oxygen Delivery Method MDM MDM MDM Narrative Medical decision making narrative: Patient received a DuoNeb here and her symptoms improved. Chest x-ray is normal. She likely has bronchitis at this time I do not see any reason for antibiotics, she is to continue her steroids and I will give her prescription for albuterol for her nebulizer since she ran out. She does not meet criteria for lab work I do not believe she needs to be worked up for PE, cardiac disease or any other illness, I hear wheezing and she improved with nebulizer. Chest x-ray read by me as normal Discharge Plan Triage Chief Complaint: Shortness of Breath ED Provider: Abhishek Crowder Dx/Rx/DC Orders Clinical Impression: Cough, Bronchitis Instructions: ED Bronchitis with Wheezing (Adult) Prescriptions: New albuterol sulfate 2.5 mg /3 mL (0.083 %) solution for nebulization 2.5 mg inhalation Q4H PRN Qty: 25 0RF Rx Instructions: Use q4 hours and PRN for wheezing No Action omeprazole 40 capsule,delayed release(DR/EC) 40 mg PO DAILY albuterol sulfate 2.5 MG/3 ML solution for nebulization 2.5 mg inhalation Q4HWA.RT PRN (Reason: Sob &/Or Wheezing) ipratropium-albuterol 3 ML solution for nebulization 3 ml inhalation Q4H.RT PRN (Reason: Sob &/Or Wheezing) Qty: 20 0RF pregabalin 75 MG capsule 75 mg PO BID loratadine [Claritin] 10 mg Tablet 10 mg PO DAILY phentermine 37.5 mg tablet 37.5 mg PO DAILY Patient Comments: TAKE 1 TABLET BY MOUTH ONCE DAILY FOR 30 DAYS Relafen ondansetron 4 mg tablet,disintegrating 4 mg PO Q8H PRN (Reason: nausea and vomiting) Qty: 14 0RF sucralfate [Carafate] 100 mg/mL suspension 1 g PO TID 14 Days Qty: 420 0RF hydrocodone-acetaminophen 5-325 mg tablet 1 tab PO Q6H PRN (Reason: pain) 3 Days Qty: 10 0RF Primary Care Provider: Maira Escamilla Referrals: Maira Escamilla MD [Primary Care Provider] - Disposition Disposition: Home, Self Care What to do if you have Problems For any increased pain, shortness of breath, bleeding, nausea or vomiting, chestpain, or any unexpected problems, contact your Primary Care Provider. Call [email or web address] ([phone]) or report to the closest Emergency Room. Call 911 if necessary. 09/30/22 1652 <Electronically signed by Abhishek Crowder MD> Cosigner Signature (if applicable): CC: Dr. Maira Escamilla MD ~ [facility] Work Phone: 1(185) 800-742108-21-2023 History of Present illness Narrative* Suma Luque APRN.SAUSAGE GRINDER - 2022 12:00 PM EDT Subjective Cough Associated symptoms include sore throat, [...] right-upper field reveals wheezing. Examination of the left-upperfield reveals wheezing. Examination of the right- lower field reveals wheezing. Examination of the left-lower [...] illness Suma Luque APRN.CNP documented in this encounterThe [facility]08-21-2023 Instructions* Patient Instructions* Suma Luque APRN.CNP - 2022 11:58 AM [...] Discussed expected course of illness Suma Luque APRN.FATEMEH ACUTE BRONCHITIS: You have acute bronchitis. This [...] days of proper treatment. documented in this encounterThe [facility]05-08-2023 Miscellaneous Notes* Telephone Encounter - Maira Escamilla MD - 06/16/2022 5:55 PM EDT Lasb ok except sugar was mildly up. Recheck a1c documented in this encounterThe [facility]05-03-2023 History of Present illness Narrative* Maira Escamilla MD - 06/11/2022 11:42 AM EDT Patient presents with: Headache Dizziness HPI: Patient presents today for office visit for dizziness. Yesterday after she got off work she decided to have gifty bahamian drink. Got a headache and didn't feelwell so she laid down and took about a 30 minute nap. When she woke up she states she was very hot and felt overheated. Started to drip sweat and felt very shaky. Ate some chips and a piece of cheesewith some water and started to feel a [...] see her back this year. No syncope. [place] like she could have during her spell. [...] past medical history, surgical history, family history andsocial history today. REVIEW OF SYSTEMS All other reviewed and negative other than HPI. VITALS: BP 110/68 Pulse 60 Ht 175.3 cm (5' 9) Wt 126.6 kg (279 lb) LMP 03/15/2022 SpO2 98% BMI41.20 kg/m BP w/Orthostatic Vitals Date and Time [...] and drink fluid regularly - ECG COMPLETE-mild sabino. Otherwise ok. - TSH BLD 2. Migraine [...] IRON + TIBC 4. SVT- See cardiology Maira Escamilla RTO in six weeks and prn. documented in this encounterThe [facility]04-27-2023 History of Present illness Narrative* Maira Escamilla MD - 06/05/2022 10:16 AM EDT Patient presents with: Follow Up HPI:This Team Access Model visit is a phone encounter. It required patient- provider interaction forthe medical decision making as documented below. Patient has elected to have a visit through distance medicine I have communicated my name and active licensure. The patient's identity and physical location wereverified at the time of this visit. Either the patient or their legal volunteer patient representative has been informed of the risks and benefits of -- and alternatives to -- treatment through a remote evaluation andconsents to proceed with the evaluation remotely. Had been on a cruise. Came back to [place] and started with allergy symptoms. Had developed [...] past medical history, surgical history, family history andsocial history today. REVIEW OF SYSTEMS All other [...] patient. Advised them to call if any sideeffects or questions. - will check a home covid. Red flags for re-assessment reviewed with patient in detail. - .Call if symptoms worsen at all or if not better in one to two weeks - FEXOFENADINE 180 MG TABLET Maira Escamilla MD I spent 9 minutes in the visit, with more than 50% of the total rasr-yk-pieh time of the visit in counseling / coordination of care. documented in this encounterThe [facility]04-13-2023 History of Present illness Narrative* Maira Escamilla MD - 05/22/2022 11:27 AM EDT Patient presents with: Back Pain HPI: Patient [...] past medical history, surgical history, family history andsocial history today. VITALS: BP 104/64 Pulse 71 Ht 175.3 cm (5' 9) Wt 127.9 kg (282 lb) LMP 03/15/2022 SpO2 99% BMI41.64 kg/m Last 4 Encounter Wt Readings: Date: [...] patient. Advised them to call if any sideeffects or questions. Red flags for re-assessment reviewed with patient in detail. Call if symptoms worsen at all or if not better in one to two weeks Reviewed diagnosis and treatment options in detail. Questions were answered. Patient expressed understanding of treatment plan. - METHYLPREDNISOLONE 4 MG TABLETS IN A DOSE PACK - CYCLOBENZAPRINE 10 MG TABLET Maira Escamilla MD documented in this encounterThe [facility]04-12-2023 Miscellaneous Notes* Telephone Encounter - Anna Myles LPN - 05/21/2022 9:24 AM EDT Patient has been identified by name and date of : Yes Patient phones for refill(s): Requested Prescriptions Pending Prescriptions Disp Refills pregabalin (LYRICA) 75 mg capsule 60 capsule 5 Sig: Take 1 capsule by mouth twice daily for 30 days. Date of last office visit in primary care: 12/10/2021 Please advise. Thank you. Anna Myles LPN documented in this encounterThe [facility]04-10-2023 Miscellaneous Notes* Telephone Encounter - Krystian Meredith RN - 05/19/2022 1:48 PM EDT The following approved medications have been transmitted electronically. Requested Prescriptions Signed Prescriptions Disp Refills norethindrone (AYGESTIN) 5 mg tablet 14 tablet 0 Sig: Take 1 tablet by mouth twice daily for 7 days. Authorizing Provider: MAKEDA SMITH Pharmacy Information Pharmacy Address [id number] [phone] [place] [address] Krystian Meredith RN * Telephone Encounter - Makeda Smith APRN.CNP - 05/19/2022 12:57 PM EDT Please let the patient know that I did send some Aygestin in for her. She can take 1 pill twice a day for 7 days if needed for bleeding. Makeda Smith APRN.CNP * Telephone Encounter - Enriqueta Philip RN - 05/19/2022 12:48 PM EDT Patient is leaving for honeymoon on Thursday. Started period today. She is worried she will have prolonged bleeding issues like she did previously when she was seen 03/31/2022 by Makeda Smith. Patient asking for medication to hopefully prevent this as discussed at that visit for her honeymoon. COIP. [facility] documented in this encounterThe [facility]03-03-2023 History of Present illness Narrative* Alison Jules DO - 04/11/2022 11:45 AM EST DISTANCE HEALTH VISIT This Team Access Model visit is a virtual encounter. It required patient- provider interaction for the medical decision making as documented below. BMI OM PostOp Clinic Note April 11, 2022 Index Surgery Date of Surgery: 10/01/2021 Surgeon: Naresh Schmitz MD Surgical Procedure: LAPAROSCOPIC GASTRIC RESTRICTIVE SURG W/ BYPASS & JACOB-EN-Y 150CM OR LESS Pre-surgical weight: 178.7 kg (394 lb) Override Index Surgery Information? No Other Bariatric Surgeries None Visit: 6 months Today's Visit: There were no vitals taken for this visit. Current self reported weight of 294 lbs. Last Visit: Wt: 136.6 kg (301 lb 3.2 oz) BMI: 44.48 kg/(m^2) Total weight loss: 100 lbs [place] weight: 76.8 kg (169 lb 5 oz) Excess weight: 101.9 kg (224 lb 11 oz) % of excess body weight lost: 178.7 kg (394 lb) (44.44 % of excess weight loss) COMPLICATIONS SINCE LAST VISIT?: NONE INTERVAL HISTORY Here for postop visit, 6 months. DIET INTAKE: tolerates Phase V diet, recently seen by the yard inspector, recommended increasing the daily intake of protein, supplementing with protein powder or a protein drink DAILY SUPPLEMENTS: Yes Calcium: calcium soft chews three times a day. Multivitamin & Minerals: bariatric [facility] + 45 mg iron daily Iron [...] COMORBIDITIES: GERD GERD Requiring medication PHYSICAL EXAM: [facility] 03/15/2022 Assessment 41 year old female with Class III obesity 6 months. s/p LAPAROSCOPIC GASTRIC RESTRICTIVE SURG W/ BYPASS & JACOB-EN-Y 150CM OR LESS, responding well and has [...] to excess calories (HCC) SVT (supraventricular tachycardia) ([facility]) Palpitations Chest pain SOB (shortness of breath) [...] with healthy lifestyle changes and incorporate cardiovascular andresistance training, Discussed weight loss expectations after bariatric and metabolic surgery, Advised PT to avoid NSAIDs, smoking tobacco given increased risk of marginal ulcers, or Discussed importance of protein intake as per the RDN note REFERRALS: N/A LABS: Today: See Epic Orders I spent a total of 35 minutes on the date of the service which included completing clinical documentation, obtaining and/or reviewing separately obtained history, counseling and educating the patient/family/caregiver, and ordering medications, tests, or procedures. Medical Decision Making: Medical Decision Making Level: 1 - N/A Alison Jules DO documented in this encounterThe [facility]02-22-2023 Miscellaneous Notes* Telephone Encounter - Concha Moreno LPN - 04/02/2022 12:03 PM EST Patient has been identified by name and date of : Yes Requested Prescriptions Pending Prescriptions Disp Refills loratadine (CLARITIN) 10 mg tablet 90 tablet 3 Sig: Take 1 tablet by mouth once daily as needed. RX INSTRUCTIONS: Patient aware RX will be sent to pharmacy. No need to notify patient. Concha Moreno LPN documented in this encounterThe [facility] Hospital02-20-2023 History of Present illness Narrative* Makeda Smith APRN.FATEMEH - 03/31/2022 1:56 PM EST Raul Fleming is a 41 year old female who presents for problem visit prolong menses for 2 week(s). HPI: menses is always regular lasting 3-5 days. This last period started on 03/15/22 bleeding just stopped on 03/30/21. Bleeding the first few days was just like a normal period and then bleeding slowedto light spotting, then picked back up for a few days and decrease to light spotting which stopped yesterday. Patient denies any abnormal periods in the past, she has currently lost over 100 pounds. OB History T2 L2 SAB0 IAB0 Ectopic0 Multiple0 Live Births0 Fiber Designer History LMP: 03/15/2022, Having periods Age at Menarche: Age at First : Age at Menopause: Fiber Designer History Comments: Sexual Activity: Yes; Male Contraception: [...] is irregular again she will contact the office.At that time I would order a pelvic ultrasound. Follow up as needed/annual Makeda Smith APRN.CNP Medical Decision Making: Problems: Low: Acute, uncomplicated illness or injury Risk: Low: Low risk from testing/treatment Medical Decision Making Level: 3 - Low documented in this encounterThe [facility]01-28-2023 Miscellaneous Notes* Letter - Mammography Coordinator - 03/08/2022 8:58 AM EST March 10, 2022 PID: [id number] Raul Fleming [address] [place] [address] Dear Ms. Fleming, We are pleased to [...] report will be kept on [facility] as part of your permanent medical record and are available for your continuing care. Thank you for allowing us to help in meeting your health care needs. Sincerely, Dr. Blackburn Interpreting Radiologist [facility] (Normal over 40) documented in this encounterThe [facility] Hospital01-27-2023 History of Present illness Narrative* Prabha Chavez RT(R) - 03/07/2022 9:50 AM EST Radiology Service Progress Note PATIENT NAME: Raul Fleming DATE OF SERVICE: March 07, 2022 TIME: 9:51 AM PATIENT IDENTITY VERIFICATION COMPLETED USING TWO (2) IDENTIFIERS: Name and Date of confirmedby patient verbally. FALL SCREENING: Has the patient [...] 07, 2022 9:51 AM documented in this encounterThe [facility]01-14-2023 History of Present illness Narrative* Jacqueline Boston APRN.SAUSAGE GRINDER - 02/22/2022 12:46 PM EST CC: Patient presents with: Sore Throat: GLYNN, [...] Patient agreeable to treatment plan. Jacqueline Boston APRN.SAUSAGE GRINDER documented in this encounterThe [facility] Hospital12-12-2022 Miscellaneous Notes* Telephone Encounter - Hussein Morel MD - 01/20/2022 4:51 PM EST [facility] * Telephone Encounter - Roxie Torres RN - 01/20/2022 1:02 PM EST Patient calling with request for work excuse [...] to work on Thursday. Please send letter Betzy Chart. Roxie Torres RN documented in this encounterThe [facility] Hospital12-10-2022 History of Present illness Narrative* Hussein Morel MD - 01/18/2022 11:25 AM EST Nirmatrelvir/Ritonavir (Paxlovid) Eligibility and Patient Discussion [facility] Formulary Restriction Criteria: Adult outpatients 18 years [...] reported. The discussion included alternatives to receiving nirmatrelvir/rit onavir, including clinical trials, and potential the risks and benefits of those alternatives. The patient was provided electronically with the Fact Sheet for Patients, Parents and Caregivers. The patient was also instructed that in addition to the treatment with nirmatrelvir/ritonavir, he/she should continue to self-isolate and use infection control measures (e.g., wear mask, isolate, social distance, avoid sharing personal items, clean and disinfect high touch surfaces, and frequent h andwashing) according to CDC guidelines. The patient stated understanding and gave verbal consent to proceeding with nirmatrelvir/ritonavir treatment. Hussein Morel MD January 18, 2022 11:29 AM * Hussein Morel MD - 01/18/2022 11:20 AM EST Chief Complaint Patient presents with: Covid Positive HPI:This Team Access Model visit is a virtual encounter. It required patient- provider interaction for the medical decision making as [...] 100 MG TABLET,DOSE PACK(EUA) Follow up prn Hussein Morel MD documented in this encounterThe [facility] Hospital12-10-2022 Instructions* Patient Instructions* Hussein Morel MD - 01/18/2022 11:25 AM EST FACT SHEET FOR PATIENTS, PARENTS, AND CAREGIVERS EMERGENCY USE AUTHORIZATION (EUA) OF PAXLOVID FOR CORONAVIRUS DISEASE 2019 (COVID-19) You are being given this Fact Sheet because your healthcare provider believes it is necessary to provide you with PAXLOVID for the treatment of btqo-an-ghutkirs coronavirus disease (COVID-19) caused by the SARS-CoV-2 virus. This Fact Sheet contains information to help you understand the risks and benefits of taking the PAXLOVID you have received or may receive. The U.S. Food and Drug Administration (FDA) has issued an Emergency Use Authorization (EUA) to makePAXLOVID available during the COVID-19 pandemic (for more details about an EUA please see What is an Emergency Use Authorization? at the end of this document). PAXLOVID is not an FDA-approved medicine in the [place]. Read this Fact Sheet for information about PAXLOVID. Talk to your healthcareprovider about your options or if you have any questions. It is your choice to take PAXLOVID. What is COVID-19? COVID-19 is caused by a virus called a coronavirus. You can get COVID-19 through close contact withanother person who has the virus. COVID-19 illnesses have ranged from very uzso-mh-rnufdq, including illness resulting in . While information so far suggests that most COVID-19 illness is mild, serious illness can happen and maycause some of your other medical conditions to become worse. Older people and people of all ages with severe, long lasting (chronic) medical conditions like heart disease, lung disease, and diabetes,for example seem to be at higher risk of being hospitalized for COVID-19. What is PAXLOVID? PAXLOVID is an investigational medicine used to treat ierv-qm-cdtjsyuz COVID-19 in adults and children [12 years [...] of using PAXLOVID to treat people with kldc-ki-pjcvrnni COVID-19. The FDA has authorized the emergency use of PAXLOVID for the treatment of jynb-la-lrfuimtb COVID-19in adults and children [12 years of age [...] the medicines you take, including prescription and ibmj-wbm-tcucduc medicines, vitamins, and herbal supplements. Some medicines [...] you have any questions about contraceptive methods thatmight be right for you. How do I [...] missed dose and take the next dose atyour regular time. Do not take 2 doses [...] oral midazolam Apalutamide Carbamazepine, phenobarbital, phenytoin Rifampin Rhea s Wort (hypericum perforatum) Taking PAXLOVID with [...] (remdesivir) is FDA-approved for the treatment of bhyg-qf-snqbxmsj COVID-19 in certain adults and children. Talk with your doctor to see if Veklury is appropriate for you. Like PAXLOVID, FDA may also allow for the emergency use of other medicines to treat people with COVID-19. Go to https://www.fda.gov/gdranxvsn-sgxfbaelghus-ihkeifnsuyp/puz-dkspk-euvlrvtbqp-and- policy-framework/anaiqsigx-jcv-jxclztnxwgrgt for information on the emergency use of other medicines that are authorized by FDA to treat people with COVID-19. Your healthcare provider may talk with you aboutclinical trials for which you may be eligible. It is your choice to be treated or not to be treated with PAXLOVID. Should you decide not to receive it or for your child not to receive it, it will not change your standard medical care. What if I am or ? There is wholesale agronomist treating women or mothers with PAXLOVID. For a motherand unborn baby, the benefit of taking PAXLOVID may be greater than the risk from the treatment. Ifyou are , discuss your options and specific situation with your healthcare provider. It is recommended that you use effective barrier contraception or do not have sexual activity whiletaking PAXLOVID. If you are , discuss your options and specific situation with your healthcare provider. How do I report side effects with PAXLOVID? Contact your healthcare provider if you have any side effects that bother you or do not go away. Report side effects to [employer] at www.[employer].gov/Xtellus or call 0-404-OIE4256 or you can reportside effects to Client[employer] at the contact information provided below. Website Fax number Telephone number [employer] How should I store PAXLOVID? Store PAXLOVID [...] (EUA). The EUA is supported by a [place] of Health and Human Service (HHS) declaration that circumstances exist to justify the emergency use of drugs and biological productsduring the COVID-19 pandemic. PAXLOVID for the treatment of lagy-dr-jahfqqsr COVID-19 in adults and children [12 years of age andolder weighing at least 88 pounds (40 kg)] [...] telephone number provided below. Website Telephone number quitchen (5-177-Z81-FVVJ) You can also go to www.[employer] or call for more information. Pfizer Distributed by [employer] [place] [address] [id number] Revised: 26 April 2021 documented in this encounterThe [facility]12-09-2022 Miscellaneous Notes* Telephone Encounter - Hussein Morel MD - 01/17/2022 5:25 PM EST Noted Hussein Morel MD * Telephone Encounter - Amie Cardenas RN - 01/17/2022 4:21 PM EST Patient had trouble with insurance with [employer]. Scheduled patient with Dr. Morel tomorrow for virtual appointment. Amie Cardenas RN * Telephone Encounter - Rossy Camacho LPN - 01/17/2022 3:59 PM EST Patient calling she tested COVID positive Thursday evening 01/15. Her entire family is COVID positive right now. Patient said she has body aches, headache, cough, fever, sore throat, sinus congestion, she said her head is so congested having problems breathing through her nose. Patient said she is taking tylenol. Patient wanted to know what she could take otc medication, had recent gastric bypasssurgery. Advised no my chart virtual visits at this time, advised to go to express care on line anddo virtual visit. Patient was doing this as I was still talking to her . Aware note was being sent to her PCP. documented in this encounterThe [facility] Hospital12-02-2022 History of Present illness Narrative* Elise Butterfield RD - 01/10/2022 2:35 PM EST Patient did not attend today's appointment. Elise Butterfield RD documented in this encounterThe [facility] Hospital11-28-2022 Miscellaneous Notes* Telephone Encounter - Lianne Welch RN - 01/06/2022 3:19 PM EST Follow up call placed to patient, no answer phone; left voice message with my call back phone number. * Telephone Encounter - BULL Aviles - 01/06/2022 9:40 AM EST BMI Incoming Patient Nursing Line Call Summary: Situation/Concerns:Patient needs a refill on Zofran Background/Duration of event: N/A Assessment/Subjective symptoms: as noted above. Recommendation/How message sent to provider/nurse:Lianne via Telephone Encounter. BULL Aviles documented in this encounterThe [facility] Hospital11-01-2022 Miscellaneous Notes* Telephone Encounter - Td Stiles LPN - 12/10/2021 1:17 PM EDT Rx faxed to [facility]. Td Stiles LPN * Telephone Encounter - Viviana Marie APRN.CNP - 12/10/2021 1:02 PM EDT Script was for magic mouthwash? Do they have that there and what is in their formulation? I printeda new script that we can send over and see if they have that available. Viviana Marie APRN.CNP * Telephone Encounter - Bhavya Mcdonald RN - 12/10/2021 12:44 PM EDT [place], a cardiac technologist at [facility] calling for clarification of recent script received today for diphenhydramine, hydrocortisone lidocaine, nystatin oral medication. She states they do not have hydrocortisone lidocaine. Also asking for clarification on listed amounts in relation to ingredients: 180 mL: 120m mL: 30 mL. Please contact pharmacy to discuss. Thank you. documented in this encounterThe [facility]vue Hospital11-01-2022 Instructions* Patient Instructions* Viviana Marie APRN.CNP - 12/10/2021 12:11 PM EDT Start the magic mouthwash as needed. Start the valtrex -- 4 tablets by mouth twice daily X 1 day -- then start 1 tablet by mouth daily thereafter. Triamcinolone ointment to the lip twice daily for up to two weeks. Let me know if no better/worsening. documented in this encounterThe Belle[facility] Hospital11-01-2022 History of Present illness Narrative* Viviana Marie APRN.SAUSAGE GRINDER - 12/10/2021 11:49 AM EDT This is a 41 year old female [...] as needed for worsening/no improvement. Viviana Marie APRN.SAUSAGE GRINDER documented in this encounterThe Bellevue Hospital10-10-2022 Miscellaneous Notes* Telephone Encounter - Justin Ponce PA-C - 11/18/2021 4:27 PM EDT The following approved medication requests have been transmitted electronically. Requested Prescriptions Signed Prescriptions Disp Refills pregabalin (LYRICA) 75 mg capsule 60 capsule 5 Sig: Take 1 capsule by mouth twice daily for 30 days. Authorizing Provider: Justin PONCE PA-C * Telephone Encounter - Michelle Ashby Ma - 11/18/2021 12:53 PM EDT Last OV: 08/06/21 Next OV: None Last Rx: 04/22/21 #60 w/5. Michelle Ashby Ma documented in this encounterThe [facility] Hospital2022 Miscellaneous Notes* Telephone Encounter - Lianne Welch RN - 11/07/2021 4:23 PM EDT BMI SPECIALTY CARE COORDINATION TELEPHONE ENCOUNTER Follow [...] to continue to sip on fluids throughout theday and to take a water bottle wherever she goes. Patient reports Since yesterday I have been pushing myself to drink more and I am feeling so much better. Patient has BMI numbers to call if has any further needs or concerns. documented in this encounterThe [facility]vue Hospital09-21-2022 History of Present illness Narrative* Milo Lauren MD - 10/30/2021 10:03 AM EDT General Surgery Postoperative Clinic Visit Name: Raul Fleming This visit was performed virtually via [employer] technology due to the COVID-19 epidemic as an effort toprotect patients and minimize exposure.? Patient gave me the verbal consent for the telehealth visit. Index Surgery Date of Surgery: 10/01/2021 Surgeon: Naresh Schmitz MD Surgical Procedure: LAPAROSCOPIC GASTRIC RESTRICTIVE SURG W/ BYPASS & JACOB-EN-Y 150CM OR LESS Pre-surgical weight: 178.7 kg [...] resolved problems to display. documented in this encounterThe Bellevue Hospital09-17-2022 Miscellaneous Notes* Telephone Encounter - Akshat Pinto MD - 10/26/2021 9:03 PM EDT Images from the original note were not [...] well and it is light colored. She hasmild nausea but consumed 45 oz of fluids today and some solids. She denies vomiting or diarrhea. She denies lightheadedness. She is currently showing no signs of dehydration. She was advised to consume more fluids and to look out for signs of dehydration such as decreased urine output, dark urine, and lightheadedness. Akshat Pinto MD PhD [facility] Clinical Fellow Advanced Laparoscopic Surgery and Flexible Surgical Endoscopy [place] [address] [place] [address] [email or web address] documented in this encounterThe [facility]vue Hospital09-14-2022 Nurse Note* Savana Shultz RN - 10/23/2021 1:35 PM EDT Raul Fleming Reason for therapy: Dehydration, and Banana bag Ordering Physician: Dr. Schmitz Supervising/Billing Physician: Dr. DERRICK Morgan Medications administered: [id number] x1, and banana bag 1000cc x 1 (See MAR and flowsheets for rates) Start: 1015AM / Stop: [id number] Infusion tolerated well: Yes IV: See avatar Vital Signs: See Flow sheets Additional Notes if applicable: The pt refused Zofran, and Protonix d/t no nausea, and she takes protonix pills p.o q daily. M61 coodinator, RN was notified * Savana Shultz RN - 10/23/2021 10:05 AM EDT AMBULATORY PATIENT EDUCATION NOTE TOPIC: IV hydration [...] / FAMILY RESPONSE: Verbalizes understanding of: WORSENING CONDITION- Signs and symptoms of aworsening condition that warrant a call to the physician FOLLOW-UP PLAN: Complete - No need for follow-up documented in this encounterThe Bellevue Hospital09-13-2022 Miscellaneous Notes* Telephone Encounter - Gabrielle Bran RN - 10/22/2021 1:50 PM EDT I cannot add patient to the infusion schedule for tomorrow 10/23 at 10am without the medication orders. Can you please place the orders? Thanks, Gabrielle Bran RN documented in this encounterThe [facility] Hospital09-13-2022 Miscellaneous Notes* Telephone Encounter - Alexa Moura - 10/22/2021 10:15 AM EDT [facility] can not see this patient as it is out of territory, we do not travel to [place]. Alexa Moura * Telephone Encounter - Alexa Moura - 10/22/2021 10:13 AM EDT Transitional Care Program - Intake Template - for interface Date Referral Received: 10/22/2021 Referral Source: [facility] Physician office TC Program: UD - 4C Hospital Discharge Date: n/a TCM RN Name: n/a Date of : 1980 Age: [age] year old PCP: Maira Escamilla MD Visit address from [facility]: [address] [place] [address] Name of Physician who gave the order: DIONICIO FAITH Other services ordered: None Primary Insurance Company: Payor: [employer] MEDICAID / Plan: [place] MEDICAID / ProductType: Medicaid / Primary Insurance ID Number: [id number] documented in this encounterThe [facility] Hospital09-12-2022 Miscellaneous Notes* Telephone Encounter - Lianne Welch RN - 10/21/2021 4:27 PM EDT BMI SPECIALTY CARE COORDINATION TELEPHONE ENCOUNTER Chief complaint & duration; c/o intermittent dizziness ;feeling tired last two weeks Type of procedure: jacob en y gastric bypass with Dr. Schmitz [...] Denies fever,pain, nausea, vomit. 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 Confirmed 10/23/21 [id number] appt. documented in this encounterThe Bellevue Hospital09-09-2022 History of Present illness Narrative* Rossy Blanton Olivia, RD - 10/18/2021 9:30 AM EDT This visit was performed virtually due to [...] shared nutrition group. Post-op weight loss surgery (RYGB)(Dr. Schmitz) . Weight loss: 47 lbs since [...] carbonation, caffeine, calories, alcohol) - separate foods andfluids by 20 minutes, small sips, no straw 4. Exercise goal: begin low intensity exercise until cleared by surgeon. 5. Practice mindful eating habits-take small portions, eat slowly, and chew thoroughly You have lost 11% total weight loss (average 6-9% at 1 month) Blog: [employer]yonas [facility] [place] [facility] has 2 virtual support group meetings: This is the [employer] link with meeting number that will be used for all of the THURSDAY virtual support groups this year, on the Thursday of each month 5:30-6:30PM Join from the meeting link [email or web address] Join by meeting number Meeting number (access code): [phone] Meeting password: [email or web address] The schedule with dates, times, topics, and facilitators can be found here: [email or web address] This is the [employer] link with meeting number that will be used for the Open Discussion (Food for Thought) support group on the Thursday of each month 5:30-6:30PM Join from the meeting link [email or web address] Join by meeting number Meeting number (access code): [id number] Meeting password: [email or web address] Hope to see you there! Nutrition Monitoring & Evaluation: Advance diet to phase 3 by next visit Criteria: patient recall Need for Follow up: 1 month post op Appointment Start Time: 9:30 AM Appointment End Time: 10:30 AM Time Spent on Consult: 60 minutes - Group Rossy Baker MS,RD,CSOWM,LD documented in this encounterThe [facility] Hospital08-31-2022 History of Present illness Narrative* Dionicio Faith MD - 10/09/2021 4:33 PM EDT Metabolic Surgery Postoperative Virtual Clinic Visit Name: Raul Fleming This visit was performed virtually via Zoom technology due to the COVID-19 epidemic as an effort toprotect patients and minimize exposure.? Virtual Visit (Audio/Visual)I have discussed the nature of this visit with the patient which will occur via Distance Health (Phone, Virtual Visit) and she agrees to proceed with this interaction. Index Surgery Date of Surgery: 10/01/2021 Surgeon: Naresh Schmitz MD Surgical Procedure: LAPAROSCOPIC GASTRIC RESTRICTIVE SURG W/ BYPASS & JACOB-EN-Y 150CM OR LESS Pre-surgical weight: 178.7 kg [...] (GERD) Morbid obesity due to excess calories ([facility]) SVT (supraventricular tachycardia) ([facility]) Palpitations Chest pain SOB (shortness of breath) [...] with healthy lifestyle changes and incorporate cardiovascular andresistance training, Discussed weight loss expectations after bariatric and metabolic surgery, Advised PT to avoid NSAIDs, smoking tobacco given increased risk of marginal ulcers, or Discussed importance of protein intake as per the RDN note. She advised to start lite exercise as tolerated and to start her multivitamins and phase 3 diet when she reach 14 days hussein after the surgery. REFERRALS: N/A LABS: Dionicio Faith MD Advanced Laparoscopic & Bariatric Surgery Fellow [facility] [place] [facility] documented in this encounterThe [facility] Hospital08-31-2022 Miscellaneous Notes* Telephone Encounter - Lianne Welch RN - 10/09/2021 2:14 PM EDT Patient reports redness and itching present around all lap sites on abdomen. May use cold compress and hydrocortisone cream around glue sites. Confirmed appt with surgical team this afternoon. documented in this encounterThe Bellevue Hospital08-26-2022 Miscellaneous Notes* Telephone Encounter - Lianne Welch RN - 10/04/2021 3:46 PM EDT [facility] spoke with Pharmacist, Paige Sanchez provided order for Lovenox written by Lexi Benjamin MD. RN called patient and provided update. Patient verbalized understanding to notify BMI if unable to start Lovenox today. Confirmed has BMI help card numbers to call if has any further needs. documented in this encounterThe Bellevue Hospital08-26-2022 Miscellaneous Notes* Telephone Encounter - Lianne Welch RN - 10/04/2021 11:17 AM EDT BMI SPECIALTY CARE COORDINATION POST-OP TELEPHONE CALL [...] at 11:00 a.m. tolerating diet. and pt estimatesat time of phone call 1122 0 grams [...] MD to resend electronic script to [facility] so patient may begin Lovenox today. Patient verbalized understanding. CPAP USE: N/A Remind patient of post op appt. Reminded patient of how to reach [facility] BMI or their surgeons office. Patient reminded to seek medical attention if they develop chest pain, a sudden onset of shortness of breath or persistent pain in the calf of their legs - BEST TO ALWAYS present to [facility] hospital where you had your surgery Patient verbalized understanding of all advice and instructions given. COVID-19 Symptoms: none . Lianne Welch RN documented in this encounterThe [facility] Hospital08-26-2022 History of Present illness Narrative* Esther Ya RN - 10/04/2021 9:30 AM EDT TCM Home Visit Referral Source of Stratification: [facility] Hospital Admission Status: Discharged Readmission Risk Score: [...] PROGRAM Provider Action/FYI: TCM Initial Hospital Discharge [facility] on 10-03-21. PCP Dr Escamilla - saida daniel f/u appoitment CYNDI Baker/Gen Surg 10-18-21 Patient [...] about her Lovenox SUMMARY: Pt discharged from [facility] on 10-03-21. Admitted for: Obesity, LAPAROSCOPIC GASTRIC RESTRICTIVE SURG W/ BYPASS & JACOB-EN-Y Contact made with patient: Yes Hi my name is Esther Ya RN and I am calling from the [facility] on behalf of your PCP,Maira Escamilla MD I understand you were recently [...] to speak with a social work steam and gas turbines assembler to help give you support for any [...] provider to ensure you have safely transitioned home.If you are agreeable, I will send your request to a clinic scheduler who will contact and assist you with that appointment. This will give you an opportunity to ask any questions or address any concerns youmay have with your PCP. Inform the patient [...] unless instructed to do so. For any non- emergency symptoms, call your Doctor s office to get instructions on how to manage (we might recommend a telephone or virtualvisit). For emergency symptoms, proceed to Emergency Department as usual but inform them of cough and fever symptoms WALLY if present (or call on the way if possible). Esther Ya RN Clothing Sorter documented in this encounterThe [facility]vue Hospital08-16-2022 Miscellaneous Notes* Telephone Encounter - Lianne Welch RN - 09/24/2021 1:37 PM EDT Patient preparing for RYGB surgery with Dr. Schmitz scheduled 10/01/21 began 3 week pre-op liquid diet (now on day 12) c/o intermittent feeling weak, dizzy, going from sitting to standing up from a chair; episodes lasts 3-4 seconds to as long as 5 minutes, resolves on its own if sits down and rests.Over the last three weeks reports occasional moments of shortness of breath brought on by activity.Completed lab work 09-17-2021. 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 Denies wheezing. Denies palpitations. WhenI exercise I just want to sleep. I [...] at a normal range and decrease your dizziness-making sure you are also getting in the 64 ounces fluids. documented in this encounterThe Bellevue Hospital08-10-2022 Instructions* Patient Instructions* Mary Moura APRN.SAUSAGE GRINDER - 09/18/2021 11:42 AM EDT PATIENT PREOPERATIVE INSTRUCTIONS Naresh Schmitz MD has scheduled you for your procedure at this surgery center: [facility] Scheduling Office: [phone] --[address] [place] [address]. Please read below carefully for your personalized [...] Procedures: - YOU MUST HAVE A RESPONSIBLE GRAPHIC PRE PRESS TRADES WORKER TAKE YOU HOME. A EMBROIDERY SPECIALIST OR COUPON CLERK CANNOT BE MADE A RESPONSIBLE GRAPHIC PRE PRESS TRADES WORKER. - We recommend that a responsible person stays with you overnight to take care of you. - You cannot stay in a hotel alone after outpatient surgery. You will not be permitted to have yoursurgery, if you do not have someone to take care of you. Arrival Time for Surgery: - To obtain your arrival time for surgery, call your physician's office the day before your surgery. - If your surgery is scheduled for Thursday, call the Thursday before. Your surgeon s clinic scheduler will tell you what time to call the office. - If you have not reached the departmental clinic scheduler by 5 P.M., call [phone] after 5 P.M. the day before your surgery. Please be aware that emergency situations arise, which may delay or change your surgical time. If this happens, we will notify you as soon as possible and regret any inconvenience. If you already have an Advance Directive, please fax a copy to [phone] or email to for it to be added to your chart. If you do not have an Advance Directive, you can find the appropriate form and more information at [email or web address]. We recommend that youcomplete the Advance Directive form found on the website and bring it with you the day of your surgery. It can be witnessed and scanned into your chart that day. Mary Moura APRN.CNP documented in this encounterThe Bellevue Hospital08-10-2022 History and physical note * Mary Moura APRN.CNP - 09/18/2021 11:41 AM EDT Images from the original note were not included. HISTORY AND PHYSICAL EXAMINATION SERVICE DATE: 09/18/2021 SERVICE TIME: 11:41 AM PRIMARY CARE PHYSICIAN: Maira Escamilla MD REASON FOR VISIT: Raul Fleming is a 40 year old female who is scheduled for Procedure(s): LAPAROSCOPIC GASTRIC RESTRICTIVE SURG W/ BYPASS & JACOB-EN-Y 150CM OR LESS (N/A) at the request [...] Adult (Hcc) Cervical Radiculopathy Svt (Supraventricular Tachycardia) (Hcc) Palpitations Chest Pain Sob (Shortness of Breath) Degenerative Joint Disease Involving Multiple Joints Limited Mobility History of Gastroesophageal Reflux (Gerd) Morbid Obesity Due to Excess Calories (Hcc) COVID-19 Immunization Status Overdue - COVID-19 VACCINE [...] her obesity and related complications to the [facility] [place]. Initial program weight: 368 lbs Last visit weight: 423 lbs Today's weight: 400 lbs Assessement/plan from last visit (06/18/21) with Magdy: Raul Fleming is a 40 year old female with Class III obesity who presents today for supervised weight loss follow-up and to finalize/estimate cardiopulmonary risk before proceeding with bariatric surgery. Total weight loss of 10 pounds since she started the phentermine last month. She was given a prescription and a refill (#2) and will schedule a follow-up visit in 5 weeks. Patient has beensuccessful with the personalized nutrition and physical activity plan we discussed last visit From a cardiopulmonary standpoint, the patient is at an acceptable risk for bariatric surgery afterreview of recent EKG, echocardiogram, chest x-ray, and [...] bypass versus a sleeve. She is happy tohave reached that goal as of today. Anti-obesity medication: Phentermine. 37.5 mg, Start date: 05/21/21, Starting weight: 423 lbs Benefit: Increased energy, increased satiety Adverse effects: none Dietary changes: Has been eating smaller meals, no snacking between meals, and has less desire to complete a meal. Exercise: She has been using an [employer] boxing program Stress: Stable - lost her car in February. Struggling with transportation Sleep: no insomnia, snoring, or SDB. REVIEW OF SYSTEMS: General: No weight loss, malaise or fevers. Neurological: Positive for: headaches (+migraines, rx as needed, rarely used). 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 Respiratory: +former smoker Positive for: asthma (rx as needed). Cardiovascular: Positive for: arrhythmia (hx palpitations, SVT, no current issues or tx) Negative for: anticoagulation therapy, atrial fibrillation, CAD, chest pain, CHF, congenital heart defect, DVT/PE, hyperlipidemia, hypertension, recent IN, murmur/valvular heart disease, open heart surgery and valve surgery. GI: See HPI. Positive for: GERD (on rx) Negative for: abdominal pain, dysphagia, hepatitis, irritable bowel syndrome, inflammatory bowel disease, liver disease, nausea, pancreatitis, vomiting and ETOH >2 drinks/day. : No history of dysuria, frequency or incontinence, stones or chronic kidney disease. No difficulty urinating, nocturia > 1 time per night or hematuria. 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 Received cardiac evaluation 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 supraventricular tachycardia documented by Holter monitor most of her palpitationis likely anxiety related due to sinus tachycardia in light of normal echocardiography normal treatment is recommended at this time if her symptoms become troublesome and lifestyle limiting we could consider small dose Follow-up in a yearly basis Class 3 severe obesity due to excess calories without serious comorbidity with body mass index (BMI) of 50.0 to 59.9 in adult ([facility]) Assessment: Body mass index is 58.18 kg/m [...] or younger Non-male patient STOP-Bang Score: 3 [id number] Score: Age: <65 Sex: female CHF history: No Hypertension history: No Stroke/TIA/thromboembolism history: No Vascular disease history: No Diabetes history: No [id number] Score: 1 ARISCAT Score: Age: <=50 Preoperative [...] 11:41 AM PAGER/CONTACT #: documented in this encounterThe [facility]08-[facility]22 Miscellaneous Notes* Telephone Encounter - Ly Campa LPN - 09/18/2021 8:11 AM EDT Last office visit 08/06/2021. Patient phones requesting refills as follows: Requested Prescriptions Pending Prescriptions Disp Refills omeprazole (PRILOSEC) 40 mg capsule 60 capsule 5 Sig: Take 1 capsule by mouth twice daily. Please review and advise. Ly Campa LPN documented in this encounterThe [facility]08-09-2022 Miscellaneous Notes* Telephone Encounter - Lianne Welch RN - 09/17/2021 11:35 AM EDT BMI SPECIALTY CARE COORDINATION TELEPHONE ENCOUNTER Chief [...] work today. Will follow. documented in this encounterThe [facility]08-05-2022 Miscellaneous Notes* Telephone Encounter - Lianne Welch RN - 09/13/2021 8:42 AM EDT BMI SPECIALTY CARE COORDINATION SURGERY PRE-OP EDUCATION [...] / FAMILY RESPONSE: Verbalizes understanding of: INFECTION MANAGEMENT- Signs and symptoms of an infection and importance [...] be sent at time of pre op visitwith surgeon Postop Surgeon Visit scheduled: Yes On-Call [...] the pain medicine you receive and your weightput you at risk for breathing complications and [...] Tylenol. Lianne Welch RN documented in this encounterThe [facility]07-26-2022 Miscellaneous Notes* Telephone Encounter - Suma Monsalve RN - 09/03/2021 10:35 AM EDT [facility] SPECIALTY CARE COORDINATION SURGERY APPROVAL CALL Received e-mail confirmation of insurance approval for bariatric surgery.Pre- operative call placed to the patient, this RN spoke with patient and agreed upon a surgery date of October 01 2021. Surgical episode request sent to [facility] surgery scheduling. Creatinine level 0.66 Patient instructed to start pre-op 800 calorie total protein liquid diet high protein Slimfast (4.5) or glucose controlled Boost (4.5) daily beginning 2 weeks prior to surgery. - Stop all ASA and NSAID products, [place] 3 fish oil, herbal products such as ginko etc. Stop vitamins EXCEPT B COMPLEX- take this up to the day before surgery - Medication List reviewed. Patient confirmed she is stopping nabumetone and is not taking naproxen. - Patient denies use of estrogen products . - No VICKY - Pt instructed to fax FMLA forms to [phone] and allow 7-10 days for completion. Linda video assigned and Pt will view Drop video during pre-op nurse visit. All questions and concerns addressed and patient verbalized understanding. - Patient case reviewed. All nutrition appointments completed, psychology clearance obtained, surgeon visit and procedure type verified, medical optimization obtained and all testing complete. Con ABO to be ordered Suma Monsalve RN documented in this encounterThe [facility]07-20-2022 History of Present illness Narrative* Gorge Sterling MD - 08/28/2021 10:09 PM EDT Consultation requested by Viviana Marie APRN.CNP for an opinion regarding facial rash. My final recommendations will be communicated back to the requesting physician by way of shared Medical record in [facility]. Raul Fleming is a 40 year old White female with w/o keratosis pilaris without history of melanoma or non-melanoma skin cancer who presents for initial consultation. She is referred by Michael bonilla concerned about a facial rash beginning ~06/29/21. Has itching, burning, and drainage from scratching skin. Pt seen 06/13/15 in dermatology with similar complaints. She was diagnosed with KPand given ammonium lactate 12% lotion. Was also [...] - Dr Grupo Shane(06/13/15) Referred by: Viviana Marie(CARBON ACCOUNTANT.SAUSAGE GRINDER) DERMATOLOGY HISTORY: Personal Hx of skin cancer: [...] date: 03/19/1990 Quit date: 2014 Years since quittin.5 Smokeless tobacco: Never Used [...] visit in 8 weeks documented in this encounterThe [facility]07-19-2022 Nurse Note* Maeve Arias Ma - 08/27/2021 3:10 PM EDT Pt being seen for facial rash. documented in this encounterThe [facility]07-06-2022 Miscellaneous Notes* Telephone Encounter - Td Stiles LPN - 08/14/2021 9:59 AM EDT Patient phones requesting refills as follows: Pending Prescriptions Disp Refills OMEPRAZOLE 40 MG CAPSULE,DELAYED RELEASE 60 capsule 0 Sig: Take 1 capsule by mouth twice daily. JUAN LUIS: No CEE 08/06/21 NOV no upcoming appt (appt on 08/27/21 is with Derm) Please review and advise. Td Stiles LPN documented in this [facility]06-29-2022 History of Present illness Narrative* Lianne Welch RN - 08/07/2021 4:58 PM EDT Pseudo date submission for bariatric surgery insurance pre-determination per Navigation team request. documented in this [facility]06-28-2022 Instructions* Patient Instructions* Norma Nolan APRN.FATEMEH - 08/06/2021 11:53 AM EDT Please arrange follow up with derm. You can also reach out to Dr. Diony Brown at [place] [phone] documented in this [facility]06-28-2022 History of Present illness Narrative* Norma Nolan APRN.CNP - 08/06/2021 11:36 AM EDT This note was created using 8digitsriter. Subjective Raul Fleming is a 40 year old female. 40 year old female with PMH SVT, GERD, and psoriasis presents with rash. Acute onset of symptoms was mid June Red itchy rash to face Endorses it occurred after being ill, specifically mesenteric adenitis. She was seen in [facility] end of June And was [...] history is provided by the patient. No hourly sign language interpreter was used. Rash This is a [...] Her past medical history is significant for all ergies and eczema. There is no history of [...] date: 03/19/1990 Quit date: 2014 Years since quittin.4 Smokeless tobacco: Never Used [...] discharge Norma Nolan APRN.FATEMEH documented in this encounterThe [facility]06-21-2022 Instructions* Patient Instructions* Daniel Benitez RD - 07/30/2021 9:24 AM EDT Nutrition Action Plan Please call [phone], option 5. Leave a message for the navigation team when you are finishedwith all clearances (nutrition, psychology, medical, surgeon) 1.Starting [...] 2 weeks before surgery documented in this encounterThe [facility]06-21-2022 History of Present illness Narrative* Daniel Benitez RD - 07/30/2021 8:45 AM EDT [facility] Nutrition Therapy: Virtual Consult Re-assessment This visit was performed virtually due to the COVID-19 epidemic as an effort to protect patients and minimize exposure. Consent from patient received to conduct visit virtually. This Team Access Model visit is a virtual encounter. It required patient-provider interaction for the medical decision making as documented below. PROGRESS: Nutrition Intervention (date of last encounter Harvinder Benitez 05/22/21): 1. Start the partial liquid protein [...] additional 1200-1500mg calcium citrate and 45mg iron: [email or web address].bariatricPushpay.com/ MET 4. Exercise: Minimum 30 minutes 5-6x [...] Readings: Date: Ht: 07/24/2021 175.3 cm (5' 9) Weight: Last 1 Encounter Wt Readings: Date: [...] with water as primary beverage. Patient completes [id number]+ minutes physical with a combination of cardio [...] guidelines for weight loss surgery and has [place] insurance and therefore may be required to [...] may continue to follow up with the dietitianon a monthly basis until all surgical requirements are met. Nutrition Diagnosis: Overweight/obesity, related to, decreased energy needs, as evidenced by BMI above normative standard for age and gender. Nutrition Intervention: Modify type and amount of food consumed for meals and snacks: Please call [phone], option 5. Leave a message for the navigation team when you are finishedwith all clearances (nutrition, psychology, medical, surgeon) 1.Starting [...] by: Daniel Benitez RD documented in this encounterThe [facility]06-15-2022 Instructions* Patient Instructions* Cris Mishra APRN.SAUSAGE GRINDER - 07/24/2021 12:00 PM EDT Mutually Agreed Upon Goals Eating Plan: Jajah Pal [place] - Log intake 2 days per week. Replace skipped meals with a protein supplement. Minggl Plate. Activity: Apple Watch or LocBoxBit tracker. Sleep: No electronic for 30 minutes prior to sleep 2 nights per week. Sleep Hygiene. Stress: [place] for meditation - Mindful Moments by CCMartin, HeadSpace, Calm. Practice 1 minute of meditation 2x [...] falling asleep or wake up shortly after goingto sleep, leave the bedroom and read quietly or do some other relaxing activity. Avoid bright lights as this can cue your wake cycle. Develop sleep rituals before going to bed. Do the same things in the same order before going to bedto cue your body to slow down and [...] be a deadly combination. documented in this encounterThe [facility]06-15-2022 History of Present illness Narrative* Cris Mishra APRN.CNP - 07/24/2021 11:41 AM EDT Images from the original note were not included. BMI Obesity Medicine Follow-Up Note July 24, 2021 Virtual Visit (Audio/Visual)I have discussed the nature of this visit with the patient which will occur via Distance Health (Phone, Virtual Visit) and she agrees to proceed with this interaction. Patient Summary: is 40 year old female who presents for follow-up evaluation of her obesity and related complications to the [facility] [place]. Initial program weight: 368 lbs Last visit [...] follow-up visit in 5 weeks. Patient has beensuccessful with the personalized nutrition and physical activity plan we discussed last visit From a cardiopulmonary standpoint, the patient is at an acceptable risk for bariatric surgery afterreview of recent EKG, echocardiogram, chest x-ray, and [...] bypass versus a sleeve. She is happy tohave reached that goal as of today. Anti-obesity medication: Phentermine. 37.5 mg, Start date: 05/21/21, Starting weight: 423 lbs Benefit: Increased energy, increased satiety Adverse effects: none Dietary changes: Has been eating smaller meals, no snacking between meals, and has less desire to complete a meal. Exercise: She has been using an InCorta program Stress: Stable - lost her car [...] nourished. NAD: Breathing easy and unlabored. Assessment/Plan: Rual Fleming is a 40 year old female [...] at an acceptable risk for bariatric surgery afterreview of recent EKG, echocardiogram, chest x-ray, and labs. Follow-up visit for management of above interventions in 8 week. The patient has attempted to lose weight with diet, exercise and behavioral pattern changes withoutthe use of a controlled substance and the treatment has been ineffective. Discussed with the patient the different weight loss options and we decided that Phentermine was the best option. The patientwill be receiving the 3rd Phentermine prescription today. The patient expressed understanding of the risks and benefits of taking Phentermine, and has a desire to proceed with therapy. While taking this medication the patient was instructed to call the office if experiencing any side effects and tocheck the blood pressure twice a week and [...] was reviewed. On 07/24/2021 by Cris Mishra APRN.CNP The patient was informed that in [facility], only one month supply of medication is provided at a time, for 3 months, then a 6 month hiatus from the medication. The patient is also aware that timely refills required, with monthly [id number] office visits for monitoring of therapy and refills. The patient understands that lack of timely follow up, or not filling the medication on time every month would constitute an interruption of therapy, and the 6 month hiatus from medication would occuras per the [facility] pharmacy board rules. I spent a total of 35 minutes on the date of the service which included ekgl-[id number] patient care, completing clinical documentation, obtaining and/or reviewing separately obtained history, performing a medically appropriate examination, counseling and educating the patient/family/caregiver and ordering medications, tests, or procedures. Medical Decision Making: Medical Decision Making Level: 1 - N/A All documentation from previous visit was copied and pasted, documentation has been reviewed and edited as necessary for today's visit. Cris Mishra APRN.FATEMEH documented in this encounterThe [facility]06-06-2022 Miscellaneous Notes* Telephone Encounter - Td Stiles LPN - 07/15/2021 4:09 PM EDT Patient phones requesting refills as follows: Pending Prescriptions Disp Refills OMEPRAZOLE 40 MG CAPSULE,DELAYED RELEASE 60 capsule 0 Sig: Take 1 capsule by mouth twice daily. JUAN LUIS: No CEE 07/15/21 NOV no upcoming appt Please review and advise. Td Stiles LPN documented in this encounterThe [facility]06-06-2022 History of Present illness Narrative* Donald Pearl MD - 07/15/2021 8:57 AM EDT Chief Complaint Patient presents with: Pain: left [...] has pain in her elbow when bending orwhen resting her elbow on object. Worse in the evening. Not treating with anything OTC. Sleeps withelbow bent. Past medical history, appointments, medications, allergies [...] no suspicious rashes or lesions. 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 Normal ROM of fingers and wrists. Decreased sensation to light touch over left 4th and 5th fingers. Numbness/tingling reproducible with percussion overcubital tunnel. Health Maintenance List PNEUMOCOCCAL(1 - PCV) [...] wrapped around her elbow to prevent bending atnight. Call if not improving in 3-4 weeks. - NAPROXEN 500 MG TABLET Donald Pearl MD documented in this encounterThe [facility]05-18-2022 Miscellaneous Notes* Telephone Encounter - Td Stiles LPN - 06/26/2021 12:53 PM EDT Pt notified. Td Stiles LPN * Telephone Encounter - Maira Escamilla MD - 06/26/2021 12:10 PM EDT Mesenteric adenitis is usually viral and gets better on its own. If pain is severe enough for meds,needs to see one of us, if pain is worsening or worsening symptoms, can certainly go to er. * Telephone Encounter - Beti Burnett RN - 06/26/2021 11:56 AM EDT Pt called in and reports on 06/24 she went to and then [facility] ER. She had and still has R sided pain, abdominal pain, cramping, watery diarrhea, not able to eat following the BRAT diet. In the ER theydid a CT and told her she had mesenteric adenitis, and that it is usually caused by an infection. They told her there was no treatment, but that she could use Tylenol for pain. Pt is stating she is still having the symptoms and now her fiance is running a fever, has diarrhea, and cramping. 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 Wanted to know if provider through she should go to the ER again, or if there was anything the provider w ould like to prescribe. Please call and advise. documented in this encounterThe [facility]05-16-2022 History of Present illness Narrative* Starr Ram APRN.SAUSAGE GRINDER - 06/24/2021 1:47 PM EDT Subjective The history is provided by the patient. No hourly sign language interpreter was used. HPI Raul Fleming is a 40 year old female who presents today for CC of right sided pain, lossof appetite and diarrhea for one day. Onur is 8/10 on right side. Painful to lie down. She has usedtylenol and iburpofen without relief. H/o cholecystectomy BP 124/82 Pulse 79 Temp 36.2 C (97.2 F) Resp 21 Wt (!) 188.1 kg (414 lb 9.6 oz) LMP 05/08/2021 SpO2 98% BMI 65.92 kg/m Social History Tobacco Use Smoking status: Former Smoker Packs/day: 0.25 Years: 24.00 Pack years: 6.00 Types: Cigarettes Start date: 03/19/1990 Quit date: 2015 Years since quittin.3 Smokeless tobacco: Never Used [...] have confirmed and edited as necessary, the [facility] Review of Systems Constitutional: Negative [...] and lack of investigative tools available at [facility], recommend patient be seen at nearest ED for further work up, patient will go to [place] ED - Diagnosis and treatment plan were discussed and questions were answered to the patient's satisfaction. Pt acknowledged understanding of concepts and follow up plan. Specific signs and symptoms that would indicate the need for higher level of care were discussed indetail warranting prompt ER evaluation. Starr Ram APRN.FATEMEH documented in this encounterThe [facility] Hospital05-16-2022 Miscellaneous Notes* Telephone Encounter - Justin Wilson RN - 06/24/2021 12:48 PM EDT Protocol recommends see provider in 4 hours. [...] : No. Protocols used: ABDOMINAL PAIN - [id number] documented in this encounterThe [facility]05-10-2022 History of Present illness Narrative* Alison Jules, DO - 06/18/2021 2:28 PM EDT Images from the original note were not included. BMI Obesity Medicine Follow-Up Note June 18, 2021 Patient Summary: is 40 year old female who presents for follow-up evaluation of her obesity and related complications to the [facility] [place]. Initial program weight: 368 lbs Last visit weight: 423 lbs Assessement/plan from last visit (05/21/21): Raul Fleming is a 40 year old female with Class III obesity who presents today for a medicalevaluation in preparation for bariatric surgery. The patient [...] meal. Exercise: She has been using an InCorta program Stress: stable Sleep: no insomnia, snoring, [...] 140/76 Pulse 100 Ht 168.9 cm (5' 6.5) Wt (!) 187.3 kg (413 lb) LMP [...] follow-up visit in 5 weeks. Patient has beensuccessful with the personalized nutrition and physical activity plan we discussed last visit From a cardiopulmonary standpoint, the patient is at an acceptable risk for bariatric surgery afterreview of recent EKG, echocardiogram, chest x-ray, and labs. Follow-up visit for management of above interventions in 4-5 weeks. I spent a total of 35 minutes on the date of the service which included [id number] patient care, completing clinical documentation, obtaining and/or reviewing separately obtained history, performing a medically appropriate examination, counseling and educating the patient/family/caregiver and ordering medications, tests, or procedures. Medical Decision Making Alison Jules DO documented in this encounterThe [facility]05-09-2022 Miscellaneous Notes* Telephone Encounter - Oleg Raman - 06/17/2021 2:38 PM EDT Patient called office. Said she is having trouble scheduling her 5 week appointment, and would likea call back. Her phone number is [phone]. 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 Jules documented in this encounterThe [facility]vue Hospital04-13-2022 History of Present illness Narrative* Daniel Benitez RD - 05/22/2021 11:00 AM EDT The [facility] Nutrition Therapy: Virtual Consult Re-assessment This visit [...] exercises at home as well: IN PROGRESS Press Play workout database: https://Mersive/ Chair or standing Team Body Project https://www.Fundación Bases.com/watch?v=j0aiDY-YpKc Chair exercise LgDb.com https://www.LgDb.com.M Squared Lasers/resource/videos-detail.asp?video=38 Beth López Easy walk in place 15 min https://www.youtube.com/watch?v=cezE83nhbND Body Project 30 min https://youtu.be/J-IjmZ8JK-8 Beth López Higher intensity walk 30 min https://www.youProfitBricksube.com/watch?v=xaQF2DGd5EP 5. Drink 64 ounces per day water. Fluids should follow these guidelines: No carbonation, no caffeine, no calories, no alcohol. Separate foods and fluids by 20 minutes IN PROGRESS 6. Research and choose these vitamin options for use 3 weeks post operatively: IN PROGRESS - Bariatric Fusion: 4 Complete Chewable Multivitamins per day (2 in the AM, 2 in the PM) www.bariatricfusion.M Squared Lasers - [employer]: 1 Bariatric Multivitamin and Calcium Citrate (total of 1200- 1500 mg/day) * take calcium citrate separately from Multivitamin with iron at least 2 hours apart and 4 hours apart from additional calcium www.[employer] - Bariatric Choice: 4 Complete Multivitamins (chewables) per day Www.bariatricchoSolyndra - Bariatric Advantage: 2 Multivitamins and 3 Calcium Citrate Chewables per day * take calcium citrate separately from Multivitamin with iron at least 2 hours apart and 4 hours apart from additional calcium Www.bariatricadHanteleage.M Squared Lasers Protein Goal: 92 gm per day NOT [...] chews and 1500mg calcium daily Physical Activity: VR Workout games daily for 20 minutes CLINICAL [...] Readings: Date: Ht: 05/21/2021 173.2 cm (5' 8.18) Weight: Last 1 Encounter Wt Readings: Date: Wt: 05/21/2021 191.9 kg (423 lb) Body mass index is 62.47 kg/m . Educational materials provided: Healthy Snacks Patient presents for follow up nutrition Virtual Consult. Patient is currently preparing to undergobariatric surgery, interested in RYGB with Dr. Schmitz. Since last assessment, weight has increasedby 13 lbs. Patient believes she has developed lupus. She is currently seeking testing to confirm. She was recently started on phentermine, and plans to apple picker Rx WALLY. Diet recall reveals consistentmeal pattern with regular meals and snacks. Patient uses protein shake to replace breakfast and healthy plate model at meals as recommended. Protein intake is inadequate (~82% of recommendations) dueto higher protein needs. Fluid intake is adequate [...] guidelines for weight loss surgery and has [place] insurance and therefore may be required [...] related to, food/nutrition - related knowledge deficit, asevidenced by BMI above normative standard for age [...] by: Daniel Benitez RD [facility] of Present illness Narrative* Alison Jules DO - 05/21/2021 4:32 PM EDT Images from the original note were not included. BMI Obesity Medicine Follow-Up Note May 21, 2021 Patient Summary: is 40 year old female who presents for follow-up evaluation of her obesity and related complications to the [facility] [place]. The patient is here today for a [...] with a dietitian tomorrow. Exercise: Currently using Integrated biometricsing game which gives her a good workout. [...] 138/84 Pulse 86 Ht 173.2 cm (5' 8.18) Wt (!) 191.9 kg (423 lb) LMP [...] III obesity who presents today for a medicalevaluation in preparation for bariatric surgery. The patient [...] the date of the service which included [id number] patient care, completing clinical documentation, obtaining and/or reviewing separately obtained history, performing a medically appropriate examination, counseling and educating the patient/family/caregiver and ordering medications, tests, or procedures. Medical Decision Making Alison Jules DO [facility] History of Present illness Narrative* Maribel Sosa RT(R) - 02/22/2021 3:45 PM EST Radiology Service Progress Note PATIENT NAME: Raul Fleming DATE OF SERVICE: February 22, 2021 TIME: 3:56 PM PATIENT IDENTITY VERIFICATION COMPLETED USING TWO (2) IDENTIFIERS: Name and Date of confirmedby patient verbally. FALL SCREENING: Has the patient had 2 falls in the last year or 1 fall with injury or currently using an Ambulatory Assistive Device (Walker, Cane, Wheelchair, Crutches, etc.)? No PATIENT GENDER DATA: Female. status: : No status: NO. PATIENT RELEVANT IMPLANT DATA REVIEWED: Not Applicable RADIOLOGY DEPARTMENT: General X-ray: Exam(s) Completed: Lower Extremity X- Ray(s): Knee, AP / Lat / Tunne / Merchant Bilateral and Wt. Bearing PERIPHERAL IV DATA: Not applicable SIGNED BY: RT Amalia(R) February 22, 2021 3:56 PM [facility] History of Past illness Narrative* Problem Noted [...] of this encounter (statuses as of 05/21/2021) [facility] Narrative* Problem Noted [...] of this encounter (statuses as of 05/22/2021) [facility] Narrative* Problem Noted [...] of this encounter (statuses as of 06/17/2021) [facility] Narrative* Problem Noted [...] of this encounter (statuses as of 06/18/2021) [facility] Narrative* Problem Noted [...] of this encounter (statuses as of 06/18/2021) [facility] Narrative* Problem Noted [...] of this encounter (statuses as of 06/24/2021) [facility] Narrative* Problem Noted [...] of this encounter (statuses as of 06/26/2021) [facility] N[facility]ative* Problem Noted [...] of this encounter (statuses as of 07/15/2021) [facility] Narrative* Problem Noted [...] of this encounter (statuses as of 07/25/2021) [facility] Narrative* Problem Noted [...] of this encounter (statuses as of 07/30/2021) [facility]ative* Problem Noted [...] of this encounter (statuses as of 07/31/2021) [facility]ative* Problem Noted [...] of this encounter (statuses as of 08/06/2021) [facility]* Problem Noted [...] of this encounter (statuses as of 08/14/2021) [facility]* Problem Noted [...] of this encounter (statuses as of 08/30/2021) [facility]* Problem Noted [...] of this encounter (statuses as of 09/03/2021) [facility]ative* Problem Noted [...] of this encounter (statuses as of 09/03/2021) [facility]ative* Problem Noted [...] of this encounter (statuses as of 09/13/2021) [facility]* Problem Noted [...] of this encounter (statuses as of 09/17/2021) [facility]ative* Problem Noted [...] of this encounter (statuses as of 09/18/2021) [facility]* Problem Noted [...] of this encounter (statuses as of 09/20/2021) [facility]* Problem Noted [...] of this encounter (statuses as of 09/25/2021) [facility]* Problem Noted [...] of this encounter (statuses as of 10/04/2021) [facility]* Problem Noted [...] of this encounter (statuses as of 10/09/2021) [facility]* Problem Noted [...] of this encounter (statuses as of 10/09/2021) [facility] Problem Noted [...] of this encounter (statuses as of 10/14/2021) [facility] Problem Noted [...] of this encounter (statuses as of 10/18/2021) [facility] Problem Noted [...] of this encounter (statuses as of 10/21/2021) [facility] Problem Noted [...] of this encounter (statuses as of 10/22/2021) [facility] Problem Noted [...] of this encounter (statuses as of 10/22/2021) [facility] Problem Noted [...] of this encounter (statuses as of 10/22/2021) [facility] Problem Noted [...] of this encounter (statuses as of 10/23/2021) [facility] Problem Noted [...] of this encounter (statuses as of 10/23/2021) [facility] Problem Noted [...] of this encounter (statuses as of 10/24/2021) [facility] Problem Noted [...] of this encounter (statuses as of 10/27/2021) [facility] Problem Noted [...] of this encounter (statuses as of 10/30/2021) [facility] Problem Noted [...] of this encounter (statuses as of 11/07/2021) [facility] Problem Noted [...] of this encounter (statuses as of 11/18/2021) [facility] Problem Noted [...] of this encounter (statuses as of 12/10/2021) [facility] Problem Noted [...] of this encounter (statuses as of 12/10/2021) [facility] Problem Noted [...] of this encounter (statuses as of 01/06/2022) [facility] Problem Noted [...] of this encounter (statuses as of 01/10/2022) [facility] Problem Noted [...] of this encounter (statuses as of 01/17/2022) [facility] Problem Noted [...] of this encounter (statuses as of 01/18/2022) [facility] Problem Noted [...] of this encounter (statuses as of 01/20/2022) [facility] Problem Noted [...] of this encounter (statuses as of 02/22/2022) [facility] Problem Noted [...] of this encounter (statuses as of 03/11/2022) [facility] Problem Noted [...] of this encounter (statuses as of 03/31/2022) [facility] Problem Noted [...] of this encounter (statuses as of 04/02/2022) [facility] Problem Noted [...] of this encounter (statuses as of 04/11/2022) [facility] Problem Noted [...] of this encounter (statuses as of 05/19/2022) [facility] Problem Noted [...] of this encounter (statuses as of 05/22/2022) [facility] Problem Noted [...] of this encounter (statuses as of 05/23/2022) [facility] Problem Noted [...] of this encounter (statuses as of 06/05/2022) [facility] Problem Noted [...] of this encounter (statuses as of 06/11/2022) [facility] Problem Noted [...] of this encounter (statuses as of 06/17/2022) [facility] Problem Noted [...] of this encounter (statuses as of 2022) [facility] Problem Noted [...] of this encounter (statuses as of 10/01/2022) [facility] Problem Noted [...] of this encounter (statuses as of 10/03/2022) [facility] Problem Noted [...] of this encounter (statuses as of 12/14/2022) [facility] Problem Noted [...] as of this encounter (statuses as of 03/23/2023) [facility] Problem Noted [...] as of this encounter (statuses as of 04/20/2023) [facility] Problem Noted [...] as of this encounter (statuses as of 05/04/2023) [facility]* Problem Noted [...] as of this encounter (statuses as of 05/11/2023) [facility] Note Date/Time August 16, 2024 11:34 am [facility] Medical Records Department [address] [place] [address] Emergency Department Summary 08/16/24 MR#: [id number] Acct: [id number] Name: RAUL FLEMING DIANNA Rep #:[id number] : 1980 43 From: Carlos Dockery MD PCP: Dr. Maira Escamilla MD Status:REG E R Location: ED HPI History of Present Illness Chief Complaint: General Illness Narrative Narrative: 43-year-old female presents with fever, headaches, and bodyaches that began yesterday. She states she woke up at 10:00 yesterday feeling ill. Throughout the night, she experienced nausea, had fever, took Tylenol, then ended up takinga leftover Vicodin she had. She states she has mildly sore throat, but her worst symptoms are the fever, and bodyaches. She denies any sick contacts. No cough or difficulty breathing. She states she had a uterine biopsy a week or soago, but is not having any vaginal discharge or pain. No dysuria or hematuria. [facility] Medical History Migraine GERD (gastroesophageal reflux disease) Arthritis GERD (gastroesophageal reflux disease) Osteoarthritis Home Medications ?Medication ?Instructions ?Recorded ?Last Taken ?Type albuterol sulfate 2.5 mg/3 mL 2.5 mg inhalation Q4HWA. RT PRN Sob 12/04/18 Unknown History (0.083 %) solution for nebulization &/Or Wheezing pregabalin 75 mg capsule 75 mg PO DAILY nerves/pain 1 02/13/19 08/20/23 History cholecalciferol (vitamin D3) 50 50 mcg PO DAILY supple ment 08/20/23 08/20/23 History mcg (2,000 unit) tablet (D3 DOTS) multivitamin with iron 1 tab PO DAILY supplement 08/20/23 History vitamin B complex (Complex B-100 1 tab PO DAILY supple ment 08/20/23 08/20/23 History tablet,extended release) sumatriptan succinate 100 mg tablet 100 mg PO .COMPLEX 09/02/23 Unknown History alprazolam 0.5 mg tablet (Xanax) 0.5 mg PO QDAY PRN an xiety 03/08/24 Unknown History sertraline 50 mg tablet 50 mg PO DAILY 03/08/24 Unkn own History Allergy/AdvReac Type Severity Reaction Status Date / Time gabapentin (From Neurontin) Allergy Swelling Verified 08/16/24 09:02 topiramate (From Topamax) AdvReac Mild TINGLING Verified 08/16/24 09:02 prednisone AdvReac Other Verified 08/16/24 09:02 Family History Mother Breast cancer Father Arthritis Surgical History Status post panniculectomy H/O section History of tonsillectomy History of ankle surgery History of foot surgery History of Jacob-en-Y gastric bypass Hx of cholecystectomy History of bilateral tubal ligation Social History household members: significant other Smoking Status: Current every day smoker tobacco type: e-cigarettes substance use type: does not use ROS ROS ED ROS Narrative Review of systems positive for fever, headache, sore throat worse with swallowing, body aches, multiple myalgias and arthralgias. No vomiting, no diarrhea, no abdominal pain, no vaginal discharge. EXAM Physical Exam Narrative Exam Narrative: Afebrile. Vital signs noted. Nontoxic-appearing. Ambulatory in emergency department to room. Cardiovascular examination feels a regular rate and rhythm. Lungs are clear to auscultation bilaterally. Abdomen is soft, nontender, without guarding or rebound. Positive bowel sounds. Neurological examination is nonfocal, nonlateralizing. Neck soft and supple without meningismus, full range of motion without pain. Minimal pharyngeal erythema, airway patent, no drooling or trismus. Const Vital Signs: 08/16/24 08:47 08/16/24 09:00 08/16/24 10:46 Temperature 98.0 F Temperature Source Temporal Pulse Rate 96 81 Respiratory Rate 16 18 Respiratory Effort Normal Non-Labored Respiratory Pattern Normal Blood Pressure 102/70 128/70 H Blood Pressure Mean 80 89 Pulse Ox 97 98 Oxygen Delivery Method Room Air MDM MDM MDM Narrative Medical decision making narrative: Differential diagnosis includes but not limited to pneumonia versus UTI versus viral syndrome. She is currently afebrile here. Additionally, I doubt uterine biopsy causing abscess as she is not symptomatic, having pain or discharge. Shewill be bolused IV fluids, and serum as well as CBC and BMP obtained. She will be treated with Toradol after showed her test be negative. I reviewed her laboratory work and she has normal white count of 6.9 with hemoglobin 11.9, hematocrit 35.8, platelet count 207. Electrolyte panel shows BUN of 8 and creatinine 0.55, no dehydration, glucose 97 with normal sodium and potassium. Urinalysis negative for infection, negative for ketones, 0-5 WBCs. I do not feel antibiotics are indicated. Serum test is negative. Shewas given Toradol for pain/analgesia. She is not febrile here currently. Chestx-ray interpreted by myself independently shows no pneumonia or pneumothorax. Ireviewed the radiology report which confirms my independent interpretation. I reviewed her respiratory swab and she is negative for COVID, influenza AMB, and RSV. Upon repeat examination, she states that she was very sweaty at 1 time and feelsas if maybe her fever is breaking, although she was not febrile on arrival. At this point in time, I do not feel that she requires admission or observation. She may have more for viral syndrome. She will continue [id number] antipyretics and analgesics and follow-up with her primary care provider. Return instructions to the emergency department were reviewed. Disposition is discharged home in stable condition. History & Record Review Discussion w/independent historian: Patient Additional record(s) reviewed:: Prior ED visit (Seen by myself previously for shakiness) Lab Data Attestation: I reviewed the patient's lab results. Labs: Laboratory Results - last 24 hr 08/16/24 08/16/24 09:30 10:30 WBC 6.9 RBC 4.17 L Hgb 11.9 L Hct 35.8 L MCV 85.9 MCH 28.5 MCHC 33.2 RDW Std Deviation 41.1 RDW Coeff of Gee 13.1 Plt Count 207 MPV 9.8 Immature Gran % (Auto) 0.300 Neut % (Auto) 89.2 H Lymph % (Auto) 4.7 L Davis % (Auto) 5.4 Eos % (Auto) 0.1 Baso % (Auto) 0.3 Absolute Neuts (auto) 6.1 Absolute Lymphs (auto) 0.32 L Nucleated RBC % 0 Sodium 136 Potassium 4.0 Chloride 102 Carbon Dioxide 25.8 Anion Gap 8 BUN 8 Creatinine 0.55 L Estim Creat Clear Calc 149.23 Est GFR (MDRD) Non-Af 116 BUN/Creatinine Ratio 14.1 Glucose 97 Calcium 8.4 Serum , Qual NEGATIVE Urine Color Yellow Urine Clarity Clear Urine pH 6.0 Ur Specific [place] 1.010 Urine Protein 15 H Urine Glucose (UA) Normal Urine Ketones Negative Urine Occult Blood Negative Urine Nitrite Negative Urine Bilirubin Negative Urine Urobilinogen Normal Ur Leukocyte Esterase 25 H Urine RBC 0 SEEN Urine WBC 0-5 SEEN Ur Squamous Epith Cells 0-5 SEEN Urine Bacteria 0 SEEN Urine Mucus 0 SEEN Radiography Diagnostic Testing: Clinical Impression(s) from Imaging Studies Chest X-Ray 08/16/24 10:00 IMPRESSION: No acute cardiopulmonary process. Reading Location: [facility] Discharge Plan Triage Chief Complaint: General Illness ED Provider: Carlos Dockery Dx/Rx/DC Orders Clinical Impression: Fever, Body aches Instructions: ED Pain, Acute, Uncertain Cause, ED Viral Syndrome (Adult) Prescriptions: No Action sertraline 50 mg tablet 50 mg PO DAILY alprazolam [Xanax] 0.5 mg tablet 0.5 mg PO QDAY PRN (Reason: anxiety) albuterol sulfate 2.5 MG/3 ML solution for nebulization 2.5 mg inhalation Q4HWA.RT PRN (Reason: Sob &/Or Wheezing) Patient Comments: only when pt has bronchitis pregabalin 75 MG capsule 75 mg PO DAILY sumatriptan succinate 100 mg tablet 100 mg PO .COMPLEX Rx Instructions: 100 mg orally TAKE 1 TABLET BY MOUTH NEEDED AT ONSET OF HEADACHE. MAY REPEAT DOSE AFTER 2 HOURS; multivitamin with iron 1 tab PO DAILY Complex B-100 Tablet Extended Release 1 tab PO DAILY cholecalciferol (vitamin D3) [D3 DOTS] 50 mcg (2,000 unit) tablet 50 mcg PO DAILY Primary Care Provider: Maira Escamilla Referrals: Maira Escamilla MD [Primary Care Provider] - 3-5 Days if not improving Activity Restrictions/Additional Instructions: Continue [id number] Tylenol as needed for fever and pain. Follow-up with your primary care provider in the next 3 to 5 days. Return to the emergency department with new or worsening symptoms. Print Language: Swedish Disposition Disposition: Home, Self Care What to do if you have Problems For any increased pain, shortness of breath, bleeding, nausea or vomiting, chestpain, or any unexpected problems, contact your Primary Care Provider. Call [facility] ([phone]) or report to the closest Emergency Room. Call 911 if necessary. 08/16/24 [id number] <Electronically signed by Carlos Dockery MD> Cosigner Signature (if applicable): CC: Dr. Maira Escamilla MD ~ [facility] Work Phone: Evaluation + Plan note No data available for this section [facility] Evaluation note* Diagnosis Class 3 severe obesity with serious comorbidity and body mass index (BMI) of 60.0 to 69.9 in adult, unspecified obesity type (HCC)- Primary [facility] Diagnosis Morbid obesity (HCC)- Primary Morbid obesity Dietary counseling and surveillance Dietary surveillance and counseling [facility]* Diagnosis Class 3 severe obesity with serious comorbidity and body mass index (BMI) of 60.0 to 69.9 in adult, unspecified obesity type (HCC)- Primary [facility] noteNo assessment information availableWKettering Health [facility] Work Phone: Evaluation note* Diagnosis Abdominal pain, unspecified abdominal location- Primary [facility] Diagnosis Cubital tunnel syndrome on left- Primary Lesion of ulnar nerve [facility]* Diagnosis Class 3 severe obesity due to excess calories with body mass index (BMI) of 50.0 to 59.9 in adult, unspecified whether serious comorbidity present (HCC)- Primary Weight disorder Other symptoms concerning nutrition, metabolism, and development Medication management Encounter for long-term (current) use of other medications [facility]* Diagnosis Morbid obesity (HCC)- Primary Morbid obesity Dietary counseling and surveillance Dietary surveillance and counseling [facility]* Diagnosis Facial rash- Primary Rash and other nonspecific skin eruption [facility]* Diagnosis Excoriation of face, subsequent encounter- Primary [facility]* Diagnosis Morbid obesity (HCC)- Primary Morbid obesity Gastroesophageal reflux disease, unspecified whether esophagitis present Preoperative examination Preoperative examination, unspecified Encounter for screening for COVID-19 Morbid obesity (HCC) Morbid obesity Gastroesophageal reflux disease, unspecified whether esophagitis present [facility] Pre-operative examination- Primary Preoperative examination, unspecified Class 3 severe obesity due to excess calories without serious comorbidity with body mass index (BMI) of 50.0 to 59.9 in adult (HCC) Gastroesophageal reflux disease without esophagitis Esophageal reflux Migraine without status migrainosus, not intractable, unspecified migraine type Mild intermittent asthma, unspecified whether complicated SVT (supraventricular tachycardia) ([facility]) Other specified cardiac dysrhythmias Morbid obesity (HCC) Morbid obesity Gastroesophageal reflux disease, unspecified whether esophagitis present [facility]* Diagnosis Morbid obesity due to excess calories (HCC)- Primary documented in this encounter [facility] note* Diagnosis Encounter for screening mammogram for breast cancer [facility]* Diagnosis S/P bariatric surgery- Primary Bariatric surgery status Dietary counseling and surveillance Dietary surveillance and counseling Class 3 severe obesity with serious comorbidity and body mass index (BMI) of 60.0 to 69.9 in adult, unspecified obesity type ([facility]) documented in this encounter [facility] note* Diagnosis Bariatric surgery status- Primary [facility]* Diagnosis Bariatric surgery status- Primary [facility]* Diagnosis Morbid obesity due to excess calories (HCC)- Primary Bariatric surgery status [facility]* Diagnosis Cervical radiculopathy Brachial neuritis or radiculitis nos documented in this encounter [facility] note* Diagnosis Recurrent cold sores- Primary Herpes simplex without mention of complication Chapped lips Diseases of lips Mouth pain Other and unspecified diseases of the oral soft tissues [facility] Diagnosis No-show for appointment- Primary [facility] Diagnosis COVID- Primary [facility] Diagnosis Sore throat- Primary Acute pharyngitis Strep throat Streptococcal sore throat documented in this encounter [facility]* Diagnosis Irregular menses- Primary Irregular menstrual cycle documented in this encounter [facility]* Diagnosis Seasonal allergies Allergic rhinitis, cause unspecified documented in this encounter [facility]* Diagnosis Encounter for surgical aftercare following surgery of digestive system- Primary Aftercare following surgery of the teeth, oral cavity and digestive system, NEC Class 3 severe obesity due to excess calories without serious comorbidity with body mass index (BMI) of 50.0 to 59.9 in adult ([facility]) documented in this encounter [facility]* Diagnosis Cervical radiculopathy Brachial neuritis or radiculitis nos documented in this encounter [facility]* Diagnosis Sciatica, right side- Primary documented in this encounter [facility]* Diagnosis Allergy, subsequent encounter- Primary documented in this encounter [facility]* Diagnosis Lightheaded- Primary Dizziness and giddiness Migraine without status migrainosus, not intractable, unspecified migraine type Gastric bypass status for obesity Bariatric surgery status documented in this encounter [facility] note* Diagnosis Hyperglycemia- Primary Other abnormal glucose documented in this encounter [facility]* Diagnosis Viral bronchitis- Primary Acute bronchitis documented in this encounter [facility]* Diagnosis Viral bronchitis- Primary Acute bronchitis documented in this encounter [facility]* Diagnosis Encounter for screening mammogram for breast cancer [facility] Diagnosis Cervical radiculopathy Brachial neuritis or radiculitis nos documented in this encounter [facility]* Diagnosis Encounter for screening mammogram for breast cancer documented in this encounter [facility]* Diagnosis Encounter for surgical aftercare following surgery of digestive system- Primary Aftercare following surgery of the teeth, oral cavity and digestive system, NEC [facility] Diagnosis Allergy, subsequent encounter Recurrent cold sores Herpes simplex without mention of complication Cervical radiculopathy Brachial neuritis or radiculitis nos documented in this encounter [facility]* Diagnosis Cervical radiculopathy Brachial neuritis or radiculitis nos [facility] Diagnosis Recurrent cold sores Herpes simplex without mention of complication documented in this encounter [facility]* Diagnosis Migraine without status migrainosus, not intractable, unspecified migraine type- Primary Gastric bypass status for obesity Bariatric surgery status Cold intolerance Other general symptoms Hyperglycemia Other abnormal glucose Screening for hyperlipidemia Screening for lipoid disorders Cervical radiculopathy Brachial neuritis or radiculitis nos documented in this encounter [facility]* Diagnosis Cervical radiculopathy Brachial neuritis or radiculitis nos [facility]* Diagnosis Chest pain, unspecified type- Primary Headache, unspecified headache type History of migraine Personal history of other disorders of nervous system and sense organs Vision loss Unspecified visual loss Near syncope Syncope and collapse URI, acute Acute upper respiratory infections of unspecified site Confusion Unspecified psychosis Acute cough Recurrent cold sores Herpes simplex without mention of complication URI, acute Acute upper respiratory infections of unspecified site Acute cough documented in this encounter [facility] note* Diagnosis Establishing care with new doctor, encounter for- Primary Other reasons for seeking consultation ASTHMA UNSPECIFIED Unspecified asthma Seasonal allergies Allergic rhinitis, cause unspecified Plantar fasciitis Plantar fascial fibromatosis Morbid obesity (HCC) Morbid obesity Rash and nonspecific skin eruption- Primary Rash and other nonspecific skin eruption Morbid obesity, unspecified obesity type ([facility]) Lumbar sprain, subsequent encounter Pre-operative examination- Primary Preoperative examination, unspecified Class 3 severe obesity due to excess calories without serious comorbidity with body mass index (BMI) of 50.0 to 59.9 in adult ([facility]) Gastroesophageal reflux disease without esophagitis Esophageal reflux Migraine without status migrainosus, not intractable, unspecified migraine type Mild intermittent asthma, unspecified whether complicated SVT (supraventricular tachycardia) ([facility]) Other specified cardiac dysrhythmias Cervical radiculopathy Brachial neuritis or radiculitis nos documented in this encounter [facility] note* Diagnosis Establishing care with new doctor, encounter for- Primary Other reasons for seeking consultation ASTHMA UNSPECIFIED Unspecified asthma Seasonal allergies Allergic rhinitis, cause unspecified Plantar fasciitis Plantar fascial fibromatosis Morbid obesity (HCC) Morbid obesity Rash and nonspecific skin eruption- Primary Rash and other nonspecific skin eruption Morbid obesity, unspecified obesity type ([facility]) Lumbar sprain, subsequent encounter Pre-operative examination- Primary Preoperative examination, unspecified Class 3 severe obesity due to excess calories without serious comorbidity with body mass index (BMI) of 50.0 to 59.9 in adult ([facility]) Gastroesophageal reflux disease without esophagitis Esophageal reflux Migraine without status migrainosus, not intractable, unspecified migraine type Mild intermittent asthma, unspecified whether complicated SVT (supraventricular tachycardia) ([facility]) Other specified cardiac dysrhythmias Encounter for surgical aftercare following surgery of digestive system- Primary Aftercare following surgery of the teeth, oral cavity and digestive system, NEC Abdominal pannus Localized adiposity Vitamin D deficiency Unspecified vitamin D deficiency documented in this encounter [facility] note* Diagnosis Establishing care with new doctor, encounter for- Primary Other reasons for seeking consultation ASTHMA UNSPECIFIED Unspecified asthma Seasonal allergies Allergic rhinitis, cause unspecified Plantar fasciitis Plantar fascial fibromatosis Morbid obesity ([facility]) Morbid obesity Rash and nonspecific skin eruption- Primary Rash and other nonspecific skin eruption Morbid obesity, unspecified obesity type ([facility]) Lumbar sprain, subsequent encounter Pre-operative examination- Primary Preoperative examination, unspecified Class 3 severe obesity due to excess calories without serious comorbidity with body mass index (BMI) of 50.0 to 59.9 in adult ([facility]) Gastroesophageal reflux disease without esophagitis Esophageal reflux Migraine without status migrainosus, not intractable, unspecified migraine type Mild intermittent asthma, unspecified whether complicated SVT (supraventricular tachycardia) ([facility]) Other specified cardiac dysrhythmias Palpitations- Primary documented in this encounter [facility] note* Diagnosis Establishing care with new doctor, encounter for- Primary Other reasons for seeking consultation ASTHMA UNSPECIFIED Unspecified asthma Seasonal allergies Allergic rhinitis, cause unspecified Plantar fasciitis Plantar fascial fibromatosis Morbid obesity ([facility]) Morbid obesity Rash and nonspecific skin eruption- Primary Rash and other nonspecific skin eruption Morbid obesity, unspecified obesity type ([facility]) Lumbar sprain, subsequent encounter Pre-operative examination- Primary Preoperative examination, unspecified Class 3 severe obesity due to excess calories without serious comorbidity with body mass index (BMI) of 50.0 to 59.9 in adult ([facility]) Gastroesophageal reflux disease without esophagitis Esophageal reflux Migraine without status migrainosus, not intractable, unspecified migraine type Mild intermittent asthma, unspecified whether complicated SVT (supraventricular tachycardia) ([facility]) Other specified cardiac dysrhythmias History of migraine- Primary Personal history of other disorders of nervous system and sense organs Headache, unspecified headache type Tension headache documented in this encounter [facility] note* Diagnosis Establishing care with new doctor, encounter for- Primary Other reasons for seeking consultation ASTHMA UNSPECIFIED Unspecified asthma Seasonal allergies Allergic rhinitis, cause unspecified Plantar fasciitis Plantar fascial fibromatosis Morbid obesity ([facility]) Morbid obesity Rash and nonspecific skin eruption- Primary Rash and other nonspecific skin eruption Morbid obesity, unspecified obesity type ([facility]) Lumbar sprain, subsequent encounter Pre-operative examination- Primary Preoperative examination, unspecified Class 3 severe obesity due to excess calories without serious comorbidity with body mass index (BMI) of 50.0 to 59.9 in adult ([facility]) Gastroesophageal reflux disease without esophagitis Esophageal reflux Migraine without status migrainosus, not intractable, unspecified migraine type Mild intermittent asthma, unspecified whether complicated SVT (supraventricular tachycardia) ([facility]) Other specified cardiac dysrhythmias Loose skin- Primary Abdominal pannus Localized adiposity Rash Rash and other nonspecific skin eruption Dermatitis Contact dermatitis and other eczema, due to unspecified cause Intertrigo Other specified erythematous condition documented in this encounter [facility] note* Diagnosis Establishing care with new doctor, encounter for- Primary Other reasons for seeking consultation ASTHMA UNSPECIFIED Unspecified asthma Seasonal allergies Allergic rhinitis, cause unspecified Plantar fasciitis Plantar fascial fibromatosis Morbid obesity ([facility]) Morbid obesity Rash and nonspecific skin eruption- Primary Rash and other nonspecific skin eruption Morbid obesity, unspecified obesity type ([facility]) Lumbar sprain, subsequent encounter Pre-operative examination- Primary Preoperative examination, unspecified Class 3 severe obesity due to excess calories without serious comorbidity with body mass index (BMI) of 50.0 to 59.9 in adult ([facility]) Gastroesophageal reflux disease without esophagitis Esophageal reflux Migraine without status migrainosus, not intractable, unspecified migraine type Mild intermittent asthma, unspecified whether complicated SVT (supraventricular tachycardia) ([facility]) Other specified cardiac dysrhythmias URI, acute Acute upper respiratory infections of unspecified site Acute cough documented in this encounter [facility] note* Diagnosis Establishing care with new doctor, encounter for- Primary Other reasons for seeking consultation ASTHMA UNSPECIFIED Unspecified asthma Seasonal allergies Allergic rhinitis, cause unspecified Plantar fasciitis Plantar fascial fibromatosis Morbid obesity ([facility]) Morbid obesity Rash and nonspecific skin eruption- Primary Rash and other nonspecific skin eruption Morbid obesity, unspecified obesity type ([facility]) Lumbar sprain, subsequent encounter Pre-operative examination- Primary Preoperative examination, unspecified Class 3 severe obesity due to excess calories without serious comorbidity with body mass index (BMI) of 50.0 to 59.9 in adult ([facility]) Gastroesophageal reflux disease without esophagitis Esophageal reflux Migraine without status migrainosus, not intractable, unspecified migraine type Mild intermittent asthma, unspecified whether complicated SVT (supraventricular tachycardia) ([facility]) Other specified cardiac dysrhythmias SVT (supraventricular tachycardia) ([facility])- Primary Other specified cardiac dysrhythmias Need for vaccination Need for prophylactic vaccination and inoculation against unspecified single disease Lightheaded Dizziness and giddiness Palpitations Mild intermittent asthma, unspecified whether complicated Headache, unspecified headache type Breast pain Mastodynia History of gastric bypass Bariatric surgery status Vitamin D deficiency Unspecified vitamin D deficiency documented in this encounter [facility] note* Diagnosis Establishing care with new doctor, encounter for- Primary Other reasons for seeking consultation ASTHMA UNSPECIFIED Unspecified asthma Seasonal allergies Allergic rhinitis, cause unspecified Plantar fasciitis Plantar fascial fibromatosis Morbid obesity (HCC) Morbid obesity Rash and nonspecific skin eruption- Primary Rash and other nonspecific skin eruption Morbid obesity, unspecified obesity type ([facility]) Lumbar sprain, subsequent encounter Class 3 severe obesity due to excess calories without serious comorbidity with body mass index (BMI) of 60.0 to 69.9 in adult ([facility]) Pre-operative examination- Primary Preoperative examination, unspecified Class 3 severe obesity due to excess calories without serious comorbidity with body mass index (BMI) of 50.0 to 59.9 in adult ([facility]) Gastroesophageal reflux disease without esophagitis Esophageal reflux Migraine without status migrainosus, not intractable, unspecified migraine type Mild intermittent asthma, unspecified whether complicated SVT (supraventricular tachycardia) ([facility]) Other specified cardiac dysrhythmias documented in this encounter [facility] note* Diagnosis Establishing care with new doctor, encounter for- Primary Other reasons for seeking consultation ASTHMA UNSPECIFIED Unspecified asthma Seasonal allergies Allergic rhinitis, cause unspecified Plantar fasciitis Plantar fascial fibromatosis Morbid obesity (HCC) Morbid obesity Rash and nonspecific skin eruption- Primary Rash and other nonspecific skin eruption Morbid obesity, unspecified obesity type ([facility]) Lumbar sprain, subsequent encounter Pain Generalized pain Pre-operative examination- Primary Preoperative examination, unspecified Class 3 severe obesity due to excess calories without serious comorbidity with body mass index (BMI) of 50.0 to 59.9 in adult ([facility]) Gastroesophageal reflux disease without esophagitis Esophageal reflux Migraine without status migrainosus, not intractable, unspecified migraine type Mild intermittent asthma, unspecified whether complicated SVT (supraventricular tachycardia) ([facility]) Other specified cardiac dysrhythmias documented in this encounter [facility] note* Diagnosis Establishing care with new doctor, encounter for- Primary Other reasons for seeking consultation ASTHMA UNSPECIFIED Unspecified asthma Seasonal allergies Allergic rhinitis, cause unspecified Plantar fasciitis Plantar fascial fibromatosis Morbid obesity (HCC) Morbid obesity Rash and nonspecific skin eruption- Primary Rash and other nonspecific skin eruption Morbid obesity, unspecified obesity type ([facility]) Lumbar sprain, subsequent encounter Pre-operative examination- Primary Preoperative examination, unspecified Class 3 severe obesity due to excess calories without serious comorbidity with body mass index (BMI) of 50.0 to 59.9 in adult ([facility]) Gastroesophageal reflux disease without esophagitis Esophageal reflux Migraine without status migrainosus, not intractable, unspecified migraine type Mild intermittent asthma, unspecified whether complicated SVT (supraventricular tachycardia) ([facility]) Other specified cardiac dysrhythmias Headache, unspecified headache type Vision loss Unspecified visual loss Near syncope Syncope and collapse Confusion Unspecified psychosis documented in this encounter [facility] note* Diagnosis Establishing care with new doctor, encounter for- Primary Other reasons for seeking consultation ASTHMA UNSPECIFIED Unspecified asthma Seasonal allergies Allergic rhinitis, cause unspecified Plantar fasciitis Plantar fascial fibromatosis Morbid obesity ([facility]) Morbid obesity Rash and nonspecific skin eruption- Primary Rash and other nonspecific skin eruption Morbid obesity, unspecified obesity type ([facility]) Lumbar sprain, subsequent encounter Pre-operative examination- Primary Preoperative examination, unspecified Class 3 severe obesity due to excess calories without serious comorbidity with body mass index (BMI) of 50.0 to 59.9 in adult ([facility]) Gastroesophageal reflux disease without esophagitis Esophageal reflux Migraine without status migrainosus, not intractable, unspecified migraine type Mild intermittent asthma, unspecified whether complicated SVT (supraventricular tachycardia) ([facility]) Other specified cardiac dysrhythmias Pre-op evaluation- Primary Preoperative examination, unspecified documented in this encounter [facility] note* Diagnosis Establishing care with new doctor, encounter for- Primary Other reasons for seeking consultation ASTHMA UNSPECIFIED Unspecified asthma Seasonal allergies Allergic rhinitis, cause unspecified Plantar fasciitis Plantar fascial fibromatosis Morbid obesity ([facility]) Morbid obesity Rash and nonspecific skin eruption- Primary Rash and other nonspecific skin eruption Morbid obesity, unspecified obesity type ([facility]) Lumbar sprain, subsequent encounter Pre-operative examination- Primary Preoperative examination, unspecified Class 3 severe obesity due to excess calories without serious comorbidity with body mass index (BMI) of 50.0 to 59.9 in adult ([facility]) Gastroesophageal reflux disease without esophagitis Esophageal reflux Migraine without status migrainosus, not intractable, unspecified migraine type Mild intermittent asthma, unspecified whether complicated SVT (supraventricular tachycardia) ([facility]) Other specified cardiac dysrhythmias Pre-operative examination- Primary Preoperative examination, unspecified Migraine without status migrainosus, not intractable, unspecified migraine type SVT (supraventricular tachycardia) ([facility]) Other specified cardiac dysrhythmias Mild intermittent asthma, unspecified whether complicated Gastroesophageal reflux disease without esophagitis Esophageal reflux History of gastric bypass Bariatric surgery status Abdominal pannus Localized adiposity Loose skin Rash Rash and other nonspecific skin eruption Dermatitis Contact dermatitis and other eczema, due to unspecified cause Intertrigo Other specified erythematous condition * Assessment & Plan Note - Mary Moura APRN.CNP - 02/18/2024 6:52 AM EST Associated Problem(s): History of gastric bypass Assessment: hx 2021 * Assessment & Plan Note - Mary Moura APRN.CNP - 02/18/2024 6:51 AM EST Associated Problem(s): Gastroesophageal reflux disease without esophagitis Assessment: controlled on rx * Assessment & Plan Note - Mary Moura APRN.CNP - 02/18/2024 6:51 AM EST Associated Problem(s): Mild intermittent asthma Assessment: albuterol as needed, former social smoker (vague hx given) * Assessment & Plan Note - Mary Moura APRN.CNP - 02/18/2024 6:48 AM EST Associated Problem(s): SVT (supraventricular tachycardia) (HCC) Assessment: hx, thought to be anxiety induced. Received cardiac evaluation 10/19/23 Zio patch results IRHYTHM FINDINGS: Patient had a min HR of 45 bpm, max HR of 150 bpm, and avg HR of 74 bpm. Predominant underlying rhythm was Sinus Rhythm. Slight P wave morphology changes were noted. 2 Supraventricular Tachycardia runs occurred, the run with the fastest interval lasting 4 beats with a max rate of 112 bpm, the longest lasting 9 beats with an avg rate of 92 bpm. Isolated SVEs were rare (<1.0%),SVE Couplets were rare (<1.0%), and SVE Triplets were rare (<1.0%). Isolated VEs were rare (<1.0%), VE Couplets were rare (<1.0%), and no VE Triplets were present. 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 supraventricular tachycardia documented by Holter monitor most of her palpitationis likely anxiety related due to sinus tachycardia in light of normal echocardiography normal treatment is recommended at this time if her symptoms become troublesome and lifestyle limiting we could consider small dose Follow-up in a yearly basis * Assessment & Plan Note - Mary Moura APRN.CNP - 02/18/2024 6:48 AM EST Associated Problem(s): Migraines Assessment: rx as needed [facility] Diagnosis Establishing care with new doctor, encounter for- Primary Other reasons for seeking consultation ASTHMA UNSPECIFIED Unspecified asthma Seasonal allergies Allergic rhinitis, cause unspecified Plantar fasciitis Plantar fascial fibromatosis Morbid obesity (HCC) Morbid obesity Rash and nonspecific skin eruption- Primary Rash and other nonspecific skin eruption Morbid obesity, unspecified obesity type (HCC) Lumbar sprain, subsequent encounter Pre-operative examination- Primary Preoperative examination, unspecified Class 3 severe obesity due to excess calories without serious comorbidity with body mass index (BMI) of 50.0 to 59.9 in adult (HCC) Gastroesophageal reflux disease without esophagitis Esophageal reflux Migraine without status migrainosus, not intractable, unspecified migraine type Mild intermittent asthma, unspecified whether complicated SVT (supraventricular tachycardia) (HCC) Other specified cardiac dysrhythmias Pre-operative examination- Primary Preoperative examination, unspecified Migraine without status migrainosus, not intractable, unspecified migraine type SVT (supraventricular tachycardia) (HCC) Other specified cardiac dysrhythmias Mild intermittent asthma, unspecified whether complicated Gastroesophageal reflux disease without esophagitis Esophageal reflux History of gastric bypass Bariatric surgery status Homeless- Primary Lack of housing Anxiety with depression Screening for depression Abdominal pannus Localized adiposity Loose skin Rash Rash and other nonspecific skin eruption Dermatitis Contact dermatitis and other eczema, due to unspecified cause Intertrigo Other specified erythematous condition documented in this encounter [facility] note* Diagnosis Establishing care with new doctor, encounter for- Primary Other reasons for seeking consultation ASTHMA UNSPECIFIED Unspecified asthma Seasonal allergies Allergic rhinitis, cause unspecified Plantar fasciitis Plantar fascial fibromatosis Morbid obesity (HCC) Morbid obesity Rash and nonspecific skin eruption- Primary Rash and other nonspecific skin eruption Morbid obesity, unspecified obesity type (HCC) Lumbar sprain, subsequent encounter Pre-operative examination- Primary Preoperative examination, unspecified Class 3 severe obesity due to excess calories without serious comorbidity with body mass index (BMI) of 50.0 to 59.9 in adult ([facility]) Gastroesophageal reflux disease without esophagitis Esophageal reflux Migraine without status migrainosus, not intractable, unspecified migraine type Mild intermittent asthma, unspecified whether complicated SVT (supraventricular tachycardia) ([facility]) Other specified cardiac dysrhythmias Pre-operative examination- Primary Preoperative examination, unspecified Migraine without status migrainosus, not intractable, unspecified migraine type SVT (supraventricular tachycardia) ([facility]) Other specified cardiac dysrhythmias Mild intermittent asthma, unspecified whether complicated Gastroesophageal reflux disease without esophagitis Esophageal reflux History of gastric bypass Bariatric surgery status Flu-like symptoms- Primary Other general symptoms Influenza A Influenza with other respiratory manifestations Abdominal pannus Localized adiposity Loose skin Rash Rash and other nonspecific skin eruption Dermatitis Contact dermatitis and other eczema, due to unspecified cause Intertrigo Other specified erythematous condition documented in this encounter [facility] note* Diagnosis Establishing care with new doctor, encounter for- Primary Other reasons for seeking consultation ASTHMA UNSPECIFIED Unspecified asthma Seasonal allergies Allergic rhinitis, cause unspecified Plantar fasciitis Plantar fascial fibromatosis Morbid obesity (HCC) Morbid obesity Rash and nonspecific skin eruption- Primary Rash and other nonspecific skin eruption Morbid obesity, unspecified obesity type ([facility]) Lumbar sprain, subsequent encounter Pre-operative examination- Primary Preoperative examination, unspecified Class 3 severe obesity due to excess calories without serious comorbidity with body mass index (BMI) of 50.0 to 59.9 in adult ([facility]) Gastroesophageal reflux disease without esophagitis Esophageal reflux Migraine without status migrainosus, not intractable, unspecified migraine type Mild intermittent asthma, unspecified whether complicated SVT (supraventricular tachycardia) ([facility]) Other specified cardiac dysrhythmias Pre-operative examination- Primary Preoperative examination, unspecified Migraine without status migrainosus, not intractable, unspecified migraine type SVT (supraventricular tachycardia) ([facility]) Other specified cardiac dysrhythmias Mild intermittent asthma, unspecified whether complicated Gastroesophageal reflux disease without esophagitis Esophageal reflux History of gastric bypass Bariatric surgery status Intermittent asthma, unspecified asthma severity, unspecified whether complicated- Primary Influenza A Influenza with other respiratory manifestations Flu-like symptoms Other general symptoms Abdominal pannus Localized adiposity Loose skin Rash Rash and other nonspecific skin eruption Dermatitis Contact dermatitis and other eczema, due to unspecified cause Intertrigo Other specified erythematous condition documented in this encounter [facility] note* Diagnosis Establishing care with new doctor, encounter for- Primary Other reasons for seeking consultation ASTHMA UNSPECIFIED Unspecified asthma Seasonal allergies Allergic rhinitis, cause unspecified Plantar fasciitis Plantar fascial fibromatosis Morbid obesity ([facility]) Morbid obesity Rash and nonspecific skin eruption- Primary Rash and other nonspecific skin eruption Morbid obesity, unspecified obesity type ([facility]) Lumbar sprain, subsequent encounter Pre-operative examination- Primary Preoperative examination, unspecified Class 3 severe obesity due to excess calories without serious comorbidity with body mass index (BMI) of 50.0 to 59.9 in adult ([facility]) Gastroesophageal reflux disease without esophagitis Esophageal reflux Migraine without status migrainosus, not intractable, unspecified migraine type Mild intermittent asthma, unspecified whether complicated SVT (supraventricular tachycardia) ([facility]) Other specified cardiac dysrhythmias Pre-operative examination- Primary Preoperative examination, unspecified Migraine without status migrainosus, not intractable, unspecified migraine type SVT (supraventricular tachycardia) ([facility]) Other specified cardiac dysrhythmias Mild intermittent asthma, unspecified whether complicated Gastroesophageal reflux disease without esophagitis Esophageal reflux History of gastric bypass Bariatric surgery status Class 3 severe obesity due to excess calories without serious comorbidity with body mass index (BMI) of 50.0 to 59.9 in adult ([facility])- Primary Pre-op evaluation Preoperative examination, unspecified documented in this encounter [facility] note* Diagnosis Establishing care with new doctor, encounter for- Primary Other reasons for seeking consultation ASTHMA UNSPECIFIED Unspecified asthma Seasonal allergies Allergic rhinitis, cause unspecified Plantar fasciitis Plantar fascial fibromatosis Morbid obesity ([facility]) Morbid obesity Rash and nonspecific skin eruption- Primary Rash and other nonspecific skin eruption Morbid obesity, unspecified obesity type ([facility]) Lumbar sprain, subsequent encounter Pre-operative examination- Primary Preoperative examination, unspecified Class 3 severe obesity due to excess calories without serious comorbidity with body mass index (BMI) of 50.0 to 59.9 in adult ([facility]) Gastroesophageal reflux disease without esophagitis Esophageal reflux Migraine without status migrainosus, not intractable, unspecified migraine type Mild intermittent asthma, unspecified whether complicated SVT (supraventricular tachycardia) ([facility]) Other specified cardiac dysrhythmias Pre-operative examination- Primary Preoperative examination, unspecified Migraine without status migrainosus, not intractable, unspecified migraine type SVT (supraventricular tachycardia) ([facility]) Other specified cardiac dysrhythmias Mild intermittent asthma, unspecified whether complicated Gastroesophageal reflux disease without esophagitis Esophageal reflux History of gastric bypass Bariatric surgery status Post-operative state- Primary Other postprocedural status S/P panniculectomy Other postprocedural status documented in this encounter [facility] note* Diagnosis Establishing care with new doctor, encounter for- Primary Other reasons for seeking consultation ASTHMA UNSPECIFIED Unspecified asthma Seasonal allergies Allergic rhinitis, cause unspecified Plantar fasciitis Plantar fascial fibromatosis Morbid obesity (HCC) Morbid obesity Rash and nonspecific skin eruption- Primary Rash and other nonspecific skin eruption Morbid obesity, unspecified obesity type ([facility]) Lumbar sprain, subsequent encounter Pre-operative examination- Primary Preoperative examination, unspecified Class 3 severe obesity due to excess calories without serious comorbidity with body mass index (BMI) of 50.0 to 59.9 in adult ([facility]) Gastroesophageal reflux disease without esophagitis Esophageal reflux Migraine without status migrainosus, not intractable, unspecified migraine type Mild intermittent asthma, unspecified whether complicated SVT (supraventricular tachycardia) ([facility]) Other specified cardiac dysrhythmias Pre-operative examination- Primary Preoperative examination, unspecified Migraine without status migrainosus, not intractable, unspecified migraine type SVT (supraventricular tachycardia) ([facility]) Other specified cardiac dysrhythmias Mild intermittent asthma, unspecified whether complicated Gastroesophageal reflux disease without esophagitis Esophageal reflux History of gastric bypass Bariatric surgery status Acute right-sided low back pain with right-sided sciatica- Primary documented in this encounter [facility] note* Diagnosis Establishing care with new doctor, encounter for- Primary Other reasons for seeking consultation ASTHMA UNSPECIFIED Unspecified asthma Seasonal allergies Allergic rhinitis, cause unspecified Plantar fasciitis Plantar fascial fibromatosis Morbid obesity (HCC) Morbid obesity Rash and nonspecific skin eruption- Primary Rash and other nonspecific skin eruption Morbid obesity, unspecified obesity type (HCC) Lumbar sprain, subsequent encounter Pre-operative examination- Primary Preoperative examination, unspecified Class 3 severe obesity due to excess calories without serious comorbidity with body mass index (BMI) of 50.0 to 59.9 in adult ([facility]) Gastroesophageal reflux disease without esophagitis Esophageal reflux Migraine without status migrainosus, not intractable, unspecified migraine type Mild intermittent asthma, unspecified whether complicated SVT (supraventricular tachycardia) ([facility]) Other specified cardiac dysrhythmias Pre-operative examination- Primary Preoperative examination, unspecified Migraine without status migrainosus, not intractable, unspecified migraine type SVT (supraventricular tachycardia) ([facility]) Other specified cardiac dysrhythmias Mild intermittent asthma, unspecified whether complicated Gastroesophageal reflux disease without esophagitis Esophageal reflux History of gastric bypass Bariatric surgery status Recurrent cold sores Herpes simplex without mention of complication documented in this encounter [facility] note* Diagnosis Establishing care with new doctor, encounter for- Primary Other reasons for seeking consultation ASTHMA UNSPECIFIED Unspecified asthma Seasonal allergies Allergic rhinitis, cause unspecified Plantar fasciitis Plantar fascial fibromatosis Morbid obesity ([facility]) Morbid obesity Rash and nonspecific skin eruption- Primary Rash and other nonspecific skin eruption Morbid obesity, unspecified obesity type ([facility]) Lumbar sprain, subsequent encounter Pre-operative examination- Primary Preoperative examination, unspecified Class 3 severe obesity due to excess calories without serious comorbidity with body mass index (BMI) of 50.0 to 59.9 in adult ([facility]) Gastroesophageal reflux disease without esophagitis Esophageal reflux Migraine without status migrainosus, not intractable, unspecified migraine type Mild intermittent asthma, unspecified whether complicated SVT (supraventricular tachycardia) ([facility]) Other specified cardiac dysrhythmias Pre-operative examination- Primary Preoperative examination, unspecified Migraine without status migrainosus, not intractable, unspecified migraine type SVT (supraventricular tachycardia) ([facility]) Other specified cardiac dysrhythmias Mild intermittent asthma, unspecified whether complicated Gastroesophageal reflux disease without esophagitis Esophageal reflux History of gastric bypass Bariatric surgery status Post-operative state- Primary Other postprocedural status S/P panniculectomy Other postprocedural status documented in this encounter [facility] note* Diagnosis Establishing care with new doctor, encounter for- Primary Other reasons for seeking consultation ASTHMA UNSPECIFIED Unspecified asthma Seasonal allergies Allergic rhinitis, cause unspecified Plantar fasciitis Plantar fascial fibromatosis Morbid obesity ([facility]) Morbid obesity Rash and nonspecific skin eruption- Primary Rash and other nonspecific skin eruption Morbid obesity, unspecified obesity type ([facility]) Lumbar sprain, subsequent encounter Pre-operative examination- Primary Preoperative examination, unspecified Class 3 severe obesity due to excess calories without serious comorbidity with body mass index (BMI) of 50.0 to 59.9 in adult (HCC) Gastroesophageal reflux disease without esophagitis Esophageal reflux Migraine without status migrainosus, not intractable, unspecified migraine type Mild intermittent asthma, unspecified whether complicated SVT (supraventricular tachycardia) ([facility]) Other specified cardiac dysrhythmias Pre-operative examination- Primary Preoperative examination, unspecified Migraine without status migrainosus, not intractable, unspecified migraine type SVT (supraventricular tachycardia) ([facility]) Other specified cardiac dysrhythmias Mild intermittent asthma, unspecified whether complicated Gastroesophageal reflux disease without esophagitis Esophageal reflux History of gastric bypass Bariatric surgery status Post-operative state- Primary Other postprocedural status S/P panniculectomy Other postprocedural status documented in this encounter [facility] note* Diagnosis Establishing care with new doctor, encounter for- Primary Other reasons for seeking consultation ASTHMA UNSPECIFIED Unspecified asthma Seasonal allergies Allergic rhinitis, cause unspecified Plantar fasciitis Plantar fascial fibromatosis Morbid obesity ([facility]) Morbid obesity Rash and nonspecific skin eruption- Primary Rash and other nonspecific skin eruption Morbid obesity, unspecified obesity type ([facility]) Lumbar sprain, subsequent encounter Pre-operative examination- Primary Preoperative examination, unspecified Class 3 severe obesity due to excess calories without serious comorbidity with body mass index (BMI) of 50.0 to 59.9 in adult ([facility]) Gastroesophageal reflux disease without esophagitis Esophageal reflux Migraine without status migrainosus, not intractable, unspecified migraine type Mild intermittent asthma, unspecified whether complicated SVT (supraventricular tachycardia) ([facility]) Other specified cardiac dysrhythmias Pre-operative examination- Primary Preoperative examination, unspecified Migraine without status migrainosus, not intractable, unspecified migraine type SVT (supraventricular tachycardia) ([facility]) Other specified cardiac dysrhythmias Mild intermittent asthma, unspecified whether complicated Gastroesophageal reflux disease without esophagitis Esophageal reflux History of gastric bypass Bariatric surgery status Cervical radiculopathy Brachial neuritis or radiculitis nos documented in this encounter [facility] note* Diagnosis Establishing care with new doctor, encounter for- Primary Other reasons for seeking consultation ASTHMA UNSPECIFIED Unspecified asthma Seasonal allergies Allergic rhinitis, cause unspecified Plantar fasciitis Plantar fascial fibromatosis Morbid obesity ([facility]) Morbid obesity Rash and nonspecific skin eruption- Primary Rash and other nonspecific skin eruption Morbid obesity, unspecified obesity type (HCC) Lumbar sprain, subsequent encounter Pre-operative examination- Primary Preoperative examination, unspecified Class 3 severe obesity due to excess calories without serious comorbidity with body mass index (BMI) of 50.0 to 59.9 in adult (HCC) Gastroesophageal reflux disease without esophagitis Esophageal reflux Migraine without status migrainosus, not intractable, unspecified migraine type Mild intermittent asthma, unspecified whether complicated (HCC) SVT (supraventricular tachycardia) (HCC) Other specified cardiac dysrhythmias Pre-operative examination- Primary Preoperative examination, unspecified Migraine without status migrainosus, not intractable, unspecified migraine type SVT (supraventricular tachycardia) (HCC) Other specified cardiac dysrhythmias Mild intermittent asthma, unspecified whether complicated (HCC) Gastroesophageal reflux disease without esophagitis Esophageal reflux History of gastric bypass Bariatric surgery status S/P panniculectomy- Primary Other postprocedural status documented in this encounter [facility] note* Diagnosis Establishing care with new doctor, encounter for- Primary Other reasons for seeking consultation ASTHMA UNSPECIFIED Unspecified asthma Seasonal allergies Allergic rhinitis, cause unspecified Plantar fasciitis Plantar fascial fibromatosis Morbid obesity (HCC) Morbid obesity Rash and nonspecific skin eruption- Primary Rash and other nonspecific skin eruption Morbid obesity, unspecified obesity type (HCC) Lumbar sprain, subsequent encounter Pre-operative examination- Primary Preoperative examination, unspecified Class 3 severe obesity due to excess calories without serious comorbidity with body mass index (BMI) of 50.0 to 59.9 in adult Gastroesophageal reflux disease without esophagitis Esophageal reflux Migraine without status migrainosus, not intractable, unspecified migraine type Mild intermittent asthma, unspecified whether complicated (HCC) SVT (supraventricular tachycardia) (HCC) Other specified cardiac dysrhythmias Pre-operative examination- Primary Preoperative examination, unspecified Migraine without status migrainosus, not intractable, unspecified migraine type SVT (supraventricular tachycardia) (HCC) Other specified cardiac dysrhythmias Mild intermittent asthma, unspecified whether complicated (HCC) Gastroesophageal reflux disease without esophagitis Esophageal reflux History of gastric bypass Bariatric surgery status S/P panniculectomy- Primary Other postprocedural status documented in this encounter [facility] note* Diagnosis Establishing care with new doctor, encounter for- Primary Other reasons for seeking consultation ASTHMA UNSPECIFIED Unspecified asthma Seasonal allergies Allergic rhinitis, cause unspecified Plantar fasciitis Plantar fascial fibromatosis Morbid obesity (HCC) Morbid obesity Rash and nonspecific skin eruption- Primary Rash and other nonspecific skin eruption Morbid obesity, unspecified obesity type (HCC) Lumbar sprain, subsequent encounter Pre-operative examination- Primary Preoperative examination, unspecified Class 3 severe obesity due to excess calories without serious comorbidity with body mass index (BMI) of 50.0 to 59.9 in adult ([facility]) Gastroesophageal reflux disease without esophagitis Esophageal reflux Migraine without status migrainosus, not intractable, unspecified migraine type Mild intermittent asthma, unspecified whether complicated (HCC) SVT (supraventricular tachycardia) ([facility]) Other specified cardiac dysrhythmias Pre-operative examination- Primary Preoperative examination, unspecified Migraine without status migrainosus, not intractable, unspecified migraine type SVT (supraventricular tachycardia) ([facility]) Other specified cardiac dysrhythmias Mild intermittent asthma, unspecified whether complicated ([facility]) Gastroesophageal reflux disease without esophagitis Esophageal reflux History of gastric bypass Bariatric surgery status Excess skin- Primary Loose skin documented in this encounter [facility] note* Diagnosis Establishing care with new doctor, encounter for- Primary Other reasons for seeking consultation ASTHMA UNSPECIFIED Unspecified asthma Seasonal allergies Allergic rhinitis, cause unspecified Plantar fasciitis Plantar fascial fibromatosis Morbid obesity (HCC) Morbid obesity Pre-operative examination- Primary Preoperative examination, unspecified Class 3 severe obesity due to excess calories without serious comorbidity with body mass index (BMI) of 50.0 to 59.9 in adult ([facility]) Gastroesophageal reflux disease without esophagitis Esophageal reflux Migraine without status migrainosus, not intractable, unspecified migraine type Mild intermittent asthma, unspecified whether complicated ([facility]) SVT (supraventricular tachycardia) ([facility]) Other specified cardiac dysrhythmias Pre-operative examination- Primary Preoperative examination, unspecified Migraine without status migrainosus, not intractable, unspecified migraine type SVT (supraventricular tachycardia) ([facility]) Other specified cardiac dysrhythmias Mild intermittent asthma, unspecified whether complicated ([facility]) Gastroesophageal reflux disease without esophagitis Esophageal reflux History of gastric bypass Bariatric surgery status SVT (supraventricular tachycardia) ([facility])- Primary Other specified cardiac dysrhythmias Mild intermittent asthma, unspecified whether complicated ([facility]) Gastroesophageal reflux disease without esophagitis Esophageal reflux History of gastric bypass Bariatric surgery status documented in this encounter [facility] note* Diagnosis Establishing care with new doctor, encounter for- Primary Other reasons for seeking consultation ASTHMA UNSPECIFIED Unspecified asthma Seasonal allergies Allergic rhinitis, cause unspecified Plantar fasciitis Plantar fascial fibromatosis Morbid obesity (HCC) Morbid obesity Pre-operative examination- Primary Preoperative examination, unspecified Class 3 severe obesity due to excess calories without serious comorbidity with body mass index (BMI) of 50.0 to 59.9 in adult (HCC) Gastroesophageal reflux disease without esophagitis Esophageal reflux Migraine without status migrainosus, not intractable, unspecified migraine type Mild intermittent asthma, unspecified whether complicated (HCC) SVT (supraventricular tachycardia) (HCC) Other specified cardiac dysrhythmias Pre-operative examination- Primary Preoperative examination, unspecified Migraine without status migrainosus, not intractable, unspecified migraine type SVT (supraventricular tachycardia) (HCC) Other specified cardiac dysrhythmias Mild intermittent asthma, unspecified whether complicated (HCC) Gastroesophageal reflux disease without esophagitis Esophageal reflux History of gastric bypass Bariatric surgery status Menorrhagia with regular cycle- Primary Excessive or frequent menstruation Paratubal cyst Other noninflammatory disorder of ovary, fallopian tube, and broad ligament Adenomyosis of uterus Intramural uterine fibroid Arcuate uterus documented in this encounter [facility] note* Diagnosis Establishing care with new doctor, encounter for- Primary Other reasons for seeking consultation ASTHMA UNSPECIFIED Unspecified asthma Seasonal allergies Allergic rhinitis, cause unspecified Plantar fasciitis Plantar fascial fibromatosis Morbid obesity (HCC) Morbid obesity Pre-operative examination- Primary Preoperative examination, unspecified Class 3 severe obesity due to excess calories without serious comorbidity with body mass index (BMI) of 50.0 to 59.9 in adult (HCC) Gastroesophageal reflux disease without esophagitis Esophageal reflux Migraine without status migrainosus, not intractable, unspecified migraine type Mild intermittent asthma, unspecified whether complicated (HCC) SVT (supraventricular tachycardia) (HCC) Other specified cardiac dysrhythmias Pre-operative examination- Primary Preoperative examination, unspecified Migraine without status migrainosus, not intractable, unspecified migraine type SVT (supraventricular tachycardia) (HCC) Other specified cardiac dysrhythmias Mild intermittent asthma, unspecified whether complicated (HCC) Gastroesophageal reflux disease without esophagitis Esophageal reflux History of gastric bypass Bariatric surgery status Encounter for gynecological examination (general) (routine) without abnormal findings Encounter for screening mammogram for breast cancer documented in this encounter [facility] note* Diagnosis Establishing care with new doctor, encounter for- Primary Other reasons for seeking consultation ASTHMA UNSPECIFIED Unspecified asthma Seasonal allergies Allergic rhinitis, cause unspecified Plantar fasciitis Plantar fascial fibromatosis Morbid obesity (HCC) Morbid obesity Pre-operative examination- Primary Preoperative examination, unspecified Class 3 severe obesity due to excess calories without serious comorbidity with body mass index (BMI) of 50.0 to 59.9 in adult (HCC) Gastroesophageal reflux disease without esophagitis Esophageal reflux Migraine without status migrainosus, not intractable, unspecified migraine type Mild intermittent asthma, unspecified whether complicated (HCC) SVT (supraventricular tachycardia) (HCC) Other specified cardiac dysrhythmias Pre-operative examination- Primary Preoperative examination, unspecified Migraine without status migrainosus, not intractable, unspecified migraine type SVT (supraventricular tachycardia) (HCC) Other specified cardiac dysrhythmias Mild intermittent asthma, unspecified whether complicated (HCC) Gastroesophageal reflux disease without esophagitis Esophageal reflux History of gastric bypass Bariatric surgery status Screening for cervical cancer- Primary Screening for malignant neoplasm of the cervix documented in this encounter [facility]* Diagnosis Establishing care with new doctor, encounter for- Primary Other reasons for seeking consultation ASTHMA UNSPECIFIED Unspecified asthma Seasonal allergies Allergic rhinitis, cause unspecified Plantar fasciitis Plantar fascial fibromatosis Morbid obesity (HCC) Morbid obesity Rash and nonspecific skin eruption- Primary Rash and other nonspecific skin eruption Morbid obesity, unspecified obesity type (HCC) Lumbar sprain, subsequent encounter Pre-operative examination- Primary Preoperative examination, unspecified Class 3 severe obesity due to excess calories without serious comorbidity with body mass index (BMI) of 50.0 to 59.9 in adult Gastroesophageal reflux disease without esophagitis Esophageal reflux Migraine without status migrainosus, not intractable, unspecified migraine type Mild intermittent asthma, unspecified whether complicated (HCC) SVT (supraventricular tachycardia) (HCC) Other specified cardiac dysrhythmias Pre-operative examination- Primary Preoperative examination, unspecified Migraine without status migrainosus, not intractable, unspecified migraine type SVT (supraventricular tachycardia) (HCC) Other specified cardiac dysrhythmias Mild intermittent asthma, unspecified whether complicated (HCC) Gastroesophageal reflux disease without esophagitis Esophageal reflux History of gastric bypass Bariatric surgery status Encounter for gynecological examination (general) (routine) without abnormal findings- Primary Screening for cervical cancer Screening for malignant neoplasm of the cervix Encounter for screening for human papillomavirus (HPV) Special screening examination for human papillomavirus (HPV) Encounter for screening mammogram for breast cancer Menorrhagia with regular cycle Excessive or frequent menstruation Need for prophylactic vaccination/inoculation against viral disease Need for prophylactic vaccination and inoculation against other viral diseases documented in this encounter [facility] note* Diagnosis Establishing care with new doctor, encounter for- Primary Other reasons for seeking consultation ASTHMA UNSPECIFIED Unspecified asthma Seasonal allergies Allergic rhinitis, cause unspecified Plantar fasciitis Plantar fascial fibromatosis Morbid obesity (HCC) Morbid obesity Pre-operative examination- Primary Preoperative examination, unspecified Class 3 severe obesity due to excess calories without serious comorbidity with body mass index (BMI) of 50.0 to 59.9 in adult (HCC) Gastroesophageal reflux disease without esophagitis Esophageal reflux Migraine without status migrainosus, not intractable, unspecified migraine type Mild intermittent asthma, unspecified whether complicated (HCC) SVT (supraventricular tachycardia) ([facility]) Other specified cardiac dysrhythmias Pre-operative examination- Primary Preoperative examination, unspecified Migraine without status migrainosus, not intractable, unspecified migraine type SVT (supraventricular tachycardia) (HCC) Other specified cardiac dysrhythmias Mild intermittent asthma, unspecified whether complicated (HCC) Gastroesophageal reflux disease without esophagitis Esophageal reflux History of gastric bypass Bariatric surgery status Menorrhagia with regular cycle- Primary Excessive or frequent menstruation Dysmenorrhea documented in this encounter [facility] note* Diagnosis Establishing care with new doctor, encounter for- Primary Other reasons for seeking consultation ASTHMA UNSPECIFIED Unspecified asthma Seasonal allergies Allergic rhinitis, cause unspecified Plantar fasciitis Plantar fascial fibromatosis Morbid obesity (HCC) Morbid obesity Pre-operative examination- Primary Preoperative examination, unspecified Class 3 severe obesity due to excess calories without serious comorbidity with body mass index (BMI) of 50.0 to 59.9 in adult (HCC) Gastroesophageal reflux disease without esophagitis Esophageal reflux Migraine without status migrainosus, not intractable, unspecified migraine type Mild intermittent asthma, unspecified whether complicated (HCC) SVT (supraventricular tachycardia) ([facility]) Other specified cardiac dysrhythmias Pre-operative examination- Primary Preoperative examination, unspecified Migraine without status migrainosus, not intractable, unspecified migraine type SVT (supraventricular tachycardia) ([facility]) Other specified cardiac dysrhythmias Mild intermittent asthma, unspecified whether complicated (HCC) Gastroesophageal reflux disease without esophagitis Esophageal reflux History of gastric bypass Bariatric surgery status Abnormal uterine bleeding (AUB)- Primary Adenomyosis of uterus documented in this encounter [facility] note* Diagnosis Establishing care with new doctor, encounter for- Primary Other reasons for seeking consultation ASTHMA UNSPECIFIED Unspecified asthma Seasonal allergies Allergic rhinitis, cause unspecified Plantar fasciitis Plantar fascial fibromatosis Morbid obesity (HCC) Morbid obesity Pre-operative examination- Primary Preoperative examination, unspecified Class 3 severe obesity due to excess calories without serious comorbidity with body mass index (BMI) of 50.0 to 59.9 in adult (HCC) Gastroesophageal reflux disease without esophagitis Esophageal reflux Migraine without status migrainosus, not intractable, unspecified migraine type Mild intermittent asthma, unspecified whether complicated (HCC) SVT (supraventricular tachycardia) (HCC) Other specified cardiac dysrhythmias Pre-operative examination- Primary Preoperative examination, unspecified Migraine without status migrainosus, not intractable, unspecified migraine type SVT (supraventricular tachycardia) (HCC) Other specified cardiac dysrhythmias Mild intermittent asthma, unspecified whether complicated (HCC) Gastroesophageal reflux disease without esophagitis Esophageal reflux History of gastric bypass Bariatric surgery status Adenomyosis of uterus- Primary Arcuate uterus Intramural uterine fibroid Dysmenorrhea Abnormal uterine bleeding (AUB) * Assessment & Plan Note - Beulah Campa MD - 08/24/2024 12:34 PM EDT Associated Problem(s): Intramural uterine fibroid * Assessment & Plan Note - Beulah Campa MD - 08/24/2024 12:34 PM EDT Associated Problem(s): Dysmenorrhea * Assessment & Plan Note - Beulah Campa MD - 08/24/2024 12:34 PM EDT Associated Problem(s): Adenomyosis of uterus * Assessment & Plan Note - Beulah Campa MD - 08/24/2024 12:34 PM EDT Associated Problem(s): Arcuate uterus [facility] Diagnosis Establishing care with new doctor, encounter for- Primary Other reasons for seeking consultation ASTHMA UNSPECIFIED Unspecified asthma Seasonal allergies Allergic rhinitis, cause unspecified Plantar fasciitis Plantar fascial fibromatosis Morbid obesity (HCC) Morbid obesity Pre-operative examination- Primary Preoperative examination, unspecified Class 3 severe obesity due to excess calories without serious comorbidity with body mass index (BMI) of 50.0 to 59.9 in adult (HCC) Gastroesophageal reflux disease without esophagitis Esophageal reflux Migraine without status migrainosus, not intractable, unspecified migraine type Mild intermittent asthma, unspecified whether complicated (HCC) SVT (supraventricular tachycardia) (HCC) Other specified cardiac dysrhythmias Pre-operative examination- Primary Preoperative examination, unspecified Migraine without status migrainosus, not intractable, unspecified migraine type SVT (supraventricular tachycardia) (HCC) Other specified cardiac dysrhythmias Mild intermittent asthma, unspecified whether complicated (HCC) Gastroesophageal reflux disease without esophagitis Esophageal reflux History of gastric bypass Bariatric surgery status Adenomyosis of uterus- Primary Arcuate uterus Intramural uterine fibroid Dysmenorrhea Abnormal uterine bleeding (AUB) Otalgia, left- Primary [facility] Additional Instructions This will be treated as an enlarged infected groin lymph node. You will be placed on antibiotic Keflex 4 times a day for 10 days. Very important if this is not getting better you need to follow-up your primary care physician for further evaluation to ensure it is nothing else going on.[facility] Work Phone: Hospital Discharge instructions Additional Instructions Follow-up with your plastic surgeon tomorrow as scheduled. Continue the Bactrim that was written for you by their office. Return to the emergency department with sustained high fever, new or worsening symptoms.[facility] Work Phone: Hospital Discharge instructionsAdditional Instructions Continue [id number] Tylenol as needed for fever and pain. Follow-up with your primary care provider in the next 3 to 5 days. Return to the emergency department with new or worsening symptoms.[facility] Work Phone: Reason for referral (narrative)* Diagnostic Procedure Only (Routine) - Pending Review Specialty Diagnoses / Procedures Referred By Samra ortiz Referred To Contact [facility] Diagnoses Encounter for screening mammogram for breast cancer Procedures ARUN SCREENING SCREENING MAMMOGRAPHY BI 2-VIEW BREAST INC Maira Emerson MD [address] [place] [address] [facility] [address] [place] [address] Referral ID Status Reason Start Date Expiration Date Visits Requested Visits Authorized [id number] Pending Review Auto-Generat ed Referral 10/09/2021 11/08/2022 1 1 [facility] for referral (narrative)* Outpatient Procedure (Routine) - Closed Specialty Diagnoses / Procedures Referred By Samra ortiz Referred To Contact HEART [facility] [place] Diagnoses Lightheaded Procedures ECG COMPLETE ECG ROUTINE ECG W/LEAST 12 LDS W/I&R Maira Escamilla MD [address] [place] [address] [facility] [place] [address] [place] [address] Referral ID Status Reason Start Date Expiration Date V isits Requested Visits Authorized [id number] Closed Auto-Generate d Referral 06/11/2022 06/11/2023 1 1 [facility] for referral (narrative)* Diagnostic Procedure Only (Routine) - Closed Specialty Diagnoses / Procedures Referred By Samra ortiz Referred To Contact [facility] Diagnoses Encounter for screening mammogram for breast cancer Procedures ARUN SCREENING SCREENING MAMMOGRAPHY BI 2-VIEW BREAST INC Maira Emerson MD [address] [place] [address] [facility] [address] [place] [address] Referral ID Status Reason Start Date Expiration Date V isits Requested Visits Authorized [id number] Closed Auto-Generate d Referral 10/09/2021 11/08/2022 1 1 [facility] for referral (narrative)* Diagnostic Procedure Only (Routine) - Pending Review Specialty Diagnoses / Procedures Referred By Samra ortiz Referred To Contact [facility] Diagnoses Encounter for screening mammogram for breast cancer Procedures ARUN SCREENING SCREENING MAMMOGRAPHY BI 2-VIEW BREAST INC CAD Maira Escamilla MD [address] [place] [address] [facility] [address] [place] [address] Referral ID Status Reason Start Date Expiration Date Visits Requested Visits Authorized [id number] Pending Review Auto-Generat ed Referral 04/15/2023 05/14/2024 1 1 [facility] for referral (narrative)* Diagnostic Procedure Only (Routine) - Authorized Specialty Diagnoses / Procedures Referred By Samra ortiz Referred To Contact [facility] Diagnoses Breast pain Procedures US BREAST LTD LEFT US BREAST UNI REAL TIME WITH IMAGE LIMITED Maira Escamilla MD [address] [place] [address] [facility] [address] [place] [phone] Referral ID Status Reason Start Date Expiration Date Visits Requested Visits Authorized [id number] Authorized Auto-Generat ed Referral 10/30/2023 11/28/2024 1 1 * Diagnostic Procedure Only (Routine) - Authorized Specialty Diagnoses / Procedures Referred By Samra ortiz Referred To Contact [facility] Diagnoses Breast pain Procedures US BREAST LTD RIGHT US BREAST UNI REAL TIME WITH IMAGE [place] [address] [place] [address] [facility] [address] [place] [address] Referral ID Status Reason Start Date Expiration Date Visits Requested Visits Authorized [id number] Authorized Auto-Generat ed Referral 10/30/2023 11/28/2024 1 1 * Diagnostic Procedure Only (Routine) - Authorized Specialty Diagnoses / Procedures Referred By Samra ortiz Referred To Contact [facility] Diagnoses Breast pain Procedures ARUN DIAGNOSTIC BILATERAL DIAGNOSTIC MAMMOGRAPHY COMPUTER-AIDED DETCJ BI Maira Escamilla MD [address] [place] [address] [facility] [address] [place] [address] Referral ID Status Reason Start Date Expiration Date Visits Requested Visits Authorized [id number] Authorized Auto-Generat ed Referral 10/30/2023 11/28/2024 1 1 [facility] for referral (narrative)* Diagnostic Procedure Only (Routine) - Closed Specialty Diagnoses / Procedures Referred By Contac t Referred To Contact XR IMAGING Diagnoses Pain Procedures XR KNEE GENERAL 4V AP BOTH/PA BOTH/LAT/MERC BILATERAL KNEE AP-WGT/LAT/Pan Golden MD [address] [place] [address] Xr Imaging [facility] Referral ID Status Reason Start Date Expiration Date V isits Requested Visits Authorized [id number] Closed Auto-Generate d Referral 02/22/2021 03/24/2022 1 1 [facility] for referral (narrative)No reason for referral information [facility] Work [facility]: Reason for visit Narrative* Diagnostic Procedure Only (Routine) - Closed Specialty Diagnoses / Procedures Referred By Contac t Referred To Contact [facility] Diagnoses Encounter for screening mammogram for breast cancer Procedures ARUN SCREENING SCREENING MAMMOGRAPHY BI 2-VIEW BREAST INC CAD Maira Escamilla MD [address] [place] [address] [facility] [address] [place] [address] Referral ID Status Reason Start Date Expiration Date V isits Requested Visits Authorized [id number] Closed Auto-Generate d Referral 10/09/2021 11/08/2022 1 1 [facility] for visit Narrative* Outpatient Procedure (Routine) - Closed Specialty Diagnoses / Procedures Referred By Contac t Referred To Contact [facility] Diagnoses Headache, unspecified headache type Vision loss Near syncope Confusion Procedures EPIL EEG ROUTINE ELECTROENCEPHALOGRAM REC COMA/SLEEP ONLY Maira Escamilla MD [address] [place] [address] [facility] [place] [address] [place] [address] Referral ID Status Reason Start Date Expiration Date V isits Requested Visits Authorized [id number] Closed Auto-Generate d Referral 08/25/2023 08/24/2024 1 1 [facility] for visit Narrative* Diagnostic Procedure Only (Routine) - Closed Specialty Diagnoses / Procedures Referred By Samra ortiz Referred To Contact [facility] Diagnoses Menorrhagia with regular cycle Procedures PELVIC US WHI US PELVIC NONOBSTETRIC REAL-TIME IMAGE COMPLETE Makeda Smith APRN.SAUSAGE GRINDER [address] [place] [address] Phone: tel: fax: [facility] [address] [place] [phone] Referral ID Status Reason Start Date Expiration Date V isits Requested Visits Authorized [id number] Closed Auto-Generate d Referral 07/12/2024 07/12/2025 1 1 [facility] for visit Narrative* Diagnostic Procedure Only (Routine) - Closed Specialty Diagnoses / Procedures Referred By Samra ortiz Referred To Contact [facility] Diagnoses Encounter for gynecological examination (general) (routine) without abnormal findings Encounter for screening mammogram for breast cancer Procedures ARUN SCREENING W TONIO SCREENING DIGITAL BREAST TOMOSYNTHESIS BI SCREENING MAMMOGRAPHY BI 2-VIEW BREAST INC CAD Makeda Smith, KYLE.SAUSAGE GRINDER [address] [place] [address] Phone: tel: fax:[phone] [facility] [address] [place] [address] Referral ID Status Reason Start Date Expiration Date V isits Requested Visits Authorized [id number] Closed Auto-Generate d Referral 07/12/2024 08/11/2025 1 1 [facility] Chief Complaint Chief Complaint Description Start Date neck pain Preliminary chief co mplaint data, not yet signed by the author as of Instructions Instruction Description Start Date CompletedPatient advised to follow-up with Primary Care Physician for BMI management. 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 No June 02, 2024 3:41pm Advance Directive Response Recorded Date/ Time Do you have a Healthcare Power of Crew Person? No June 02, 2024 3:41pm Do you have a Healthcare Power of Crew Person? No August 16, 2024 9:00am Assessments There may be information available, but it has not been provided by the sender. Review of System There may be information available, but it has not been provided by the sender. Family History Relationship Condition Age at Onset Recorded Date/T barrera mother Malignant neoplasm of breast Unknown father Arthritis Unknown History of Present Illness There may be information available, but it has not been provided by the sender. Reason for Referral Specialty Diagnoses / Procedures Referred By Samra ortiz Referred To Contact Diagnoses Class 3 severe obesity with serious comorbidity and body mass index (BMI) of 60.0 to 69.9 in adult, unspecified obesity type (HCC) Alison Jules DO [address] [place] [id number] Referral ID Status Reason Start Date Expiration Date V isits Requested Visits Authorized [id number] Pending Review 1 1 Referral ID Status Reason Start Date Expiration Date V isits Requested Visits Authorized [id number] Pending Review 1 1 Specialty Diagnoses / Procedures Referred By Contac t Referred To Contact Diagnoses Class 3 severe obesity due to excess calories with body mass index (BMI) of 50.0 to 59.9 in adult, unspecified whether serious comorbidity present (HCC) Weight disorder Cris Mishra, CARBON ACCOUNTANT.SAUSAGE GRINDER [address] [place] [address] Referral ID Status Reason Start Date Expiration Date Visits Re quested Visits Authorized [id number] Denied 1 1 Specialty Diagnoses / Procedures Referred By Contac t Referred To Contact Dermatology Diagnoses Facial rash Procedures CONSULT TO DERMATOLOGY Norma Nolan, [employer] ACCOUNTANT.SAUSAGE GRINDER [address] [place] [address] Referral ID Status Reason Start Date Expiration Date Visits Requested Visits Authorized [id number] Ref Not Required PCP Requested Referral 08/06/2021 08/06/2022 1 1 Specialty Diagnoses / Procedures Referred By Contac t Referred To Contact Diagnoses Morbid obesity (HCC) Chronic GERD Gastroesophageal reflux disease, unspecified whether esophagitis present Preoperative examination Procedures IN PERSON CONSULT TO PACC Jacinta Daugherty, [employer] ACCOUNTANT.NEWSPAPER DELIVERY DRIVER [address] [place] [address] Referral ID Status Reason Start Date Expiration Date Visits Requested Visits Authorized [id number] Ref Not Required PCP Requested Referral 09/03/2021 12/02/2021 1 1 Specialty Diagnoses / Procedures Referred By Contac t Referred To Contact Diagnoses Allergy, subsequent encounter Maira Escamilla MD [address] [place] [address] Referral ID Status Reason Start Date Expiration Date Visits Re quested Visits Authorized [id number] Closed 1 1 Specialty Diagnoses / Procedures Referred By Contac t Referred To Contact Ophthalmology Diagnoses Vision loss Procedures CONSULT TO OPHTHALMOLOGY OFFICE/OUTPATIENT [facility] 60 MINUTES Maira Escamilla MD [address] [place] [address] Referral ID Status Reason Start Date Expiration Date Visits Requested Visits Authorized [id number] Authorized PCP Requested Referral 08/25/2023 08/24/2024 1 1 Specialty Diagnoses / Procedures Referred By Contac t Referred To Contact [facility] Diagnoses Headache, unspecified headache type Vision loss Near syncope Confusion Procedures EPIL EEG ROUTINE ELECTROENCEPHALOGRAM REC COMA/SLEEP ONLY Maira Escamilla MD [address] [place] [address] [facility] [place] [address] [place] [address] Referral ID Status Reason Start Date Expiration Date Visits Requested Visits Authorized [id number] Authorized Auto-Generat ed Referral 08/25/2023 08/24/2024 1 1 Specialty Diagnoses / Procedures Referred By Contac t Referred To Contact Neurology Diagnoses Headache, unspecified headache type History of migraine Procedures CONSULT TO NEUROLOGY OFFICE/OUTPATIENT [facility] 60 MINUTES Maira Escamilla MD [address] [place] [address] Referral ID Status Reason Start Date Expiration Date Visits Requested Visits Authorized [id number] Authorized PCP Requested Referral 08/25/2023 08/24/2024 1 1 Specialty Diagnoses / Procedures Referred By Contac t Referred To Contact Plastic Surgery Diagnoses Abdominal pannus Procedures CONSULT TO PLASTIC SURGERY OFFICE/OUTPATIENT [facility] 60 MINUTES Alison Jules DO [id number] [place] [address] Referral ID Status Reason Start Date Expiration Date Visits Requested Visits Authorized [id number] Authorized PCP Requested Referral 09/28/2023 12/27/2023 1 1 Chief Complaint and Reason for Visit Chief Complaint ABD PAIN Chief Complaint sob Chief Complaint GLYNN Chief Complaint GLYNN WOUND Chief Complaint Admit Date CERVICAL SPINE March 08, 2024 1 0:31am wound June 02, 2024 2:3 8pm Reason for Visit Admit Date Cervical radiculopathy March 08 10:31am Degenerative disc disease, cervical Lewis almas 2024 10:31am Chief Complaint Admit Date wound June 02, 2024 2:3 8pm GENERAL August 16, 2024 8:46a m Medications Administered Section Inactive Administered Medications - [...] CONTINUOUS, Starting on Thu10/23/21 at 1030, Until Dasha 10/24/21 at 0413 New Bag/Syringe/Bottle 10/23/2021 10:15 AM EDT 990 mL/hr 990 mL/hr Summary Purpose Additional Source Comments Reason for Visit (unrecogniz ed section and content) Reason Comments Consult Specialty Diagnoses / Procedures Referred By Samra ortiz Referred To Contact Plastic Surgery Diagnoses Abdominal pannus Procedures CONSULT TO PLASTIC SURGERY OFFICE/OUTPATIENT NEW HIGH MDM 60 MINUTES Alison Jules DO [address] [place] [address] Referral ID Status Reason Start Date Expiration Date V isits Requested Visits Authorized [id number] Closed PCP Requested Referral 09/28/2023 12/27/2023 1 1 Reason Onset Date Comments Patient Education 10/18/2021 Reassessment 10/18/2021 Specialty Diagnoses / Procedures Referred By Samra ortiz Referred To Contact ADMITTING Diagnoses Morbid obesity (HCC) Gastroesophageal reflux disease, unspecified whether esophagitis present Procedures LAPS GSTR RSTCV PX W/BYP JACOB-EN-Y LIMB <150 CM LAPAROSCOPIC GASTRIC RESTRICTIVE SURG W/ BYPASS & JACOB-EN-Y 150CM OR LESS [facility] [address] [place] [address] Referral ID Status Reason Start Date Expiration Date Visits Re quested Visits Authorized [id number] 1 1 Reason For Visit Description Start Date New - 1st visit with practice Preliminary reason f or visit data, not yet signed by the author as of neck pain Reason Comments Established Patient Reason Comments Reassessment Patient Education Reason Comments Appointment Patient called juan j minor Said she is having trouble scheduling her 5 week appointment, and would like a call back. Her phone number is [phone]. 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 Reason Comments Cough Chest congestion x1 [facility], [facility] 09/30 Reason Onset Date Comments Refill Request 03/20/2023 Reason Onset Date Comments Refill Request 05/11/2023 Reason Onset Date Comments Refill Request 07/16/2023 Reason Comments Telemedicine Reason Onset Date Comments Refill Request 08/19/2023 Reason Comments Transition Of Care Reason Comments Rib Injury Reason Onset Date Comments Refill Request 09/28/2023 Reason Comments Results zio Reason Comments New Patient Evaluation Specialty Diagnoses / Procedures Referred By Contac t Referred To Contact Neurology Diagnoses Headache, unspecified headache type History of migraine Procedures CONSULT TO NEUROLOGY OFFICE/OUTPATIENT NEW HIGH MDM 60 MINUTES Maira Escamilla MD [address] [place] [address] Referral ID Status Reason Start Date Expiration Date V isits Requested Visits Authorized [id number] Closed PCP Requested Referral 08/25/2023 08/24/2024 1 1 Reason Comments PHOTOS TAKEN Reason Comments Results Erroneous encounter-disregard Reason Comments Radio Gen RMP Specialty Diagnoses / Procedures Referred By Contac t Referred To Contact XR IMAGING Diagnoses Pain Procedures XR KNEE GENERAL 4V AP BOTH/PA BOTH/LAT/MERC BILATERAL KNEE AP-WGT/LAT/MERCHANT Pan Hyman MD [address] [place] [address] [place] [address] Referral ID Status Reason Start Date Expiration Date V isits Requested Visits Authorized [id number] Closed Auto-Generate d Referral 02/22/2021 03/24/2022 1 1 Reason Comments Future Appointment Reason Comments Anxiety Reason Comments Viral Syndrome Reason Comments Fever Kids all have the fl u A, headache, congestion, bodyaches, chills, nausea, x today Reason Comments Post Op Pre-op panniculectom y Reason Comments Nausea, stomach upset Patient Question Reason Comments Low Back Pain Feels like a pinched nerve in lower back x 1 day Reason Onset Date Comments Refill Request 03/28/2024 Reason Comments Clinical Update Reason Comments Wound Check Reason Comments Post Op Panniculectomy Reason Comments Multiple Concerns See note Reason Onset Date Comments Refill Request 04/17/2024 Reason Comments Abscess Reason Comments Insurance Authorization Reason Comments Pre-op Illness Reason Onset Date Comments HPV Vaccine 07/19/2024 Reason Onset Date Comments Well Woman Gardasil Injection 07/12/2024 Reason Comments Patient Question Reason Comments Discussion Reason Comments Endometrial Biopsy Specialty Diagnoses / Procedures Referred By Contac t Referred To Contact [facility] Diagnoses Menorrhagia with regular cycle Procedures ENDOMETRIAL BIOPSY ENDOMETRIAL BX W/WO ENDOCERVIX BX W/O DILAT SPX Beulah Campa MD [address] [place] [address] Phone: tel: fax: [facility] [address] [place] [address] Referral ID Status Reason Start Date Expiration Date V isits Requested Visits Authorized [id number] Closed Auto-Generate d Referral 08/01/2024 08/01/2025 1 1 Reason Comments Menstrual Problem Reason Comments Ear Problem ? insect bite on lef t ear, pain and swelling x 2 days Source Comments (unrecognize d section and content) In the event this informatio n is protected by the Federal Confidentiality of Alcohol and Drug Abuse Patient Records regulations: The Federal rules restrict any use of the information to criminally investigate or prosecute any alcohol or drug abuse patient.[facility] the event this information is protected by the Federal Confidentiality of Alcohol and Drug Abuse Patient Records regulations: The Federal rules restrict any use of the information to criminally investigate or prosecute any alcohol or drug abuse patient.[facility]In the event this information is protected by the Federal Confidentiality of Alcohol and Drug Abuse Patient Records regulations: The Federal rules restrict any use of the information to criminally investigate or prosecute any alcohol or drug abuse patient.[facility]In the event this information is protected by the Federal Confidentiality of Alcohol and Drug Abuse Patient Records regulations: The Federal rules restrict any use of the information to criminally investigate or prosecute any alcohol or drug abuse patient.[facility]In the event this information is protected by the Federal Confidentiality of Alcohol and Drug Abuse Patient Records regulations: The Federal rules restrict any use of the information to criminally investigate or prosecute any alcohol or drug abuse patient.[facility]In the event this information is protected by the Federal Confidentiality of Alcohol and Drug Abuse Patient Records regulations: The Federal rules restrict any use of the information to criminally investigate or prosecute any alcohol or drug abuse patient.[facility]In the event this information is protected by the Federal Confidentiality of Alcohol and Drug Abuse Patient Records regulations: The Federal rules restrict any use of the information to criminally investigate or prosecute any alcohol or drug abuse patient.[facility]In the event this information is protected by the Federal Confidentiality of Alcohol and Drug Abuse Patient Records regulations: The Federal rules restrict any use of the information to criminally investigate or prosecute any alcohol or drug abuse patient.[facility]In the event this information is protected by the Federal Confidentiality of Alcohol and Drug Abuse Patient Records regulations: The Federal rules restrict any use of the information to criminally investigate or prosecute any alcohol or drug abuse patient.[facility]In the event this information is protected by the Federal Confidentiality of Alcohol and Drug Abuse Patient Records regulations: The Federal rules restrict any use of the information to criminally investigate or prosecute any alcohol or drug abuse patient.[facility]In the event this information is protected by the Federal Confidentiality of Alcohol and Drug Abuse Patient Records regulations: The Federal rules restrict any use of the information to criminally investigate or prosecute any alcohol or drug abuse patient.[facility]In the event this information is protected by the Federal Confidentiality of Alcohol and Drug Abuse Patient Records regulations: The Federal rules restrict any use of the information to criminally investigate or prosecute any alcohol or drug abuse patient.[facility]In the event this information is protected by the Federal Confidentiality of Alcohol and Drug Abuse Patient Records regulations: The Federal rules restrict any use of the information to criminally investigate or prosecute any alcohol or drug abuse patient.[facility]In the event this information is protected by the Federal Confidentiality of Alcohol and Drug Abuse Patient Records regulations: The Federal rules restrict any use of the information to criminally investigate or prosecute any alcohol or drug abuse patient.[facility]In the event this information is protected by the Federal Confidentiality of Alcohol and Drug Abuse Patient Records regulations: The Federal rules restrict any use of the information to criminally investigate or prosecute any alcohol or drug abuse patient.[facility]In the event this information is protected by the Federal Confidentiality of Alcohol and Drug Abuse Patient Records regulations: The Federal rules restrict any use of the information to criminally investigate or prosecute any alcohol or drug abuse patient.[facility]In the event this information is protected by the Federal Confidentiality of Alcohol and Drug Abuse Patient Records regulations: The Federal rules restrict any use of the information to criminally investigate or prosecute any alcohol or drug abuse patient.[facility]In the event this information is protected by the Federal Confidentiality of Alcohol and Drug Abuse Patient Records regulations: The Federal rules restrict any use of the information to criminally investigate or prosecute any alcohol or drug abuse patient.[facility]In the event this information is protected by the Federal Confidentiality of Alcohol and Drug Abuse Patient Records regulations: The Federal rules restrict any use of the information to criminally investigate or prosecute any alcohol or drug abuse patient.[facility]In the event this information is protected by the Federal Confidentiality of Alcohol and Drug Abuse Patient Records regulations: The Federal rules restrict any use of the information to criminally investigate or prosecute any alcohol or drug abuse patient.[facility]In the event this information is protected by the Federal Confidentiality of Alcohol and Drug Abuse Patient Records regulations: The Federal rules restrict any use of the information to criminally investigate or prosecute any alcohol or drug abuse patient.[facility]In the event this information is protected by the Federal Confidentiality of Alcohol and Drug Abuse Patient Records regulations: The Federal rules restrict any use of the information to criminally investigate or prosecute any alcohol or drug abuse patient.[facility]In the event this information is protected by the Federal Confidentiality of Alcohol and Drug Abuse Patient Records regulations: The Federal rules restrict any use of the information to criminally investigate or prosecute any alcohol or drug abuse patient.[facility]In the event this information is protected by the Federal Confidentiality of Alcohol and Drug Abuse Patient Records regulations: The Federal rules restrict any use of the information to criminally investigate or prosecute any alcohol or drug abuse patient.[facility]In the event this information is protected by the Federal Confidentiality of Alcohol and Drug Abuse Patient Records regulations: The Federal rules restrict any use of the information to criminally investigate or prosecute any alcohol or drug abuse patient.[facility]In the event this information is protected by the Federal Confidentiality of Alcohol and Drug Abuse Patient Records regulations: The Federal rules restrict any use of the information to criminally investigate or prosecute any alcohol or drug abuse patient.[facility]In the event this information is protected by the Federal Confidentiality of Alcohol and Drug Abuse Patient Records regulations: The Federal rules restrict any use of the information to criminally investigate or prosecute any alcohol or drug abuse patient.[facility]In the event this information is protected by the Federal Confidentiality of Alcohol and Drug Abuse Patient Records regulations: The Federal rules restrict any use of the information to criminally investigate or prosecute any alcohol or drug abuse patient.[facility]In the event this information is protected by the Federal Confidentiality of Alcohol and Drug Abuse Patient Records regulations: The Federal rules restrict any use of the information to criminally investigate or prosecute any alcohol or drug abuse patient.[facility]In the event this information is protected by the Federal Confidentiality of Alcohol and Drug Abuse Patient Records regulations: The Federal rules restrict any use of the information to criminally investigate or prosecute any alcohol or drug abuse patient.[facility]In the event this information is protected by the Federal Confidentiality of Alcohol and Drug Abuse Patient Records regulations: The Federal rules restrict any use of the information to criminally investigate or prosecute any alcohol or drug abuse patient.[facility]In the event this information is protected by the Federal Confidentiality of Alcohol and Drug Abuse Patient Records regulations: The Federal rules restrict any use of the information to criminally investigate or prosecute any alcohol or drug abuse patient.[facility]In the event this information is protected by the Federal Confidentiality of Alcohol and Drug Abuse Patient Records regulations: The Federal rules restrict any use of the information to criminally investigate or prosecute any alcohol or drug abuse patient.[facility]In the event this information is protected by the Federal Confidentiality of Alcohol and Drug Abuse Patient Records regulations: The Federal rules restrict any use of the information to criminally investigate or prosecute any alcohol or drug abuse patient.[facility]In the event this information is protected by the Federal Confidentiality of Alcohol and Drug Abuse Patient Records regulations: The Federal rules restrict any use of the information to criminally investigate or prosecute any alcohol or drug abuse patient.[facility]In the event this information is protected by the Federal Confidentiality of Alcohol and Drug Abuse Patient Records regulations: The Federal rules restrict any use of the information to criminally investigate or prosecute any alcohol or drug abuse patient.[facility]In the event this information is protected by the Federal Confidentiality of Alcohol and Drug Abuse Patient Records regulations: The Federal rules restrict any use of the information to criminally investigate or prosecute any alcohol or drug abuse patient.[facility]In the event this information is protected by the Federal Confidentiality of Alcohol and Drug Abuse Patient Records regulations: The Federal rules restrict any use of the information to criminally investigate or prosecute any alcohol or drug abuse patient.[facility]In the event this information is protected by the Federal Confidentiality of Alcohol and Drug Abuse Patient Records regulations: The Federal rules restrict any use of the information to criminally investigate or prosecute any alcohol or drug abuse patient.[facility]In the event this information is protected by the Federal Confidentiality of Alcohol and Drug Abuse Patient Records regulations: The Federal rules restrict any use of the information to criminally investigate or prosecute any alcohol or drug abuse patient.[facility]In the event this information is protected by the Federal Confidentiality of Alcohol and Drug Abuse Patient Records regulations: The Federal rules restrict any use of the information to criminally investigate or prosecute any alcohol or drug abuse patient.[facility]In the event this information is protected by the Federal Confidentiality of Alcohol and Drug Abuse Patient Records regulations: The Federal rules restrict any use of the information to criminally investigate or prosecute any alcohol or drug abuse patient.[facility]In the event this information is protected by the Federal Confidentiality of Alcohol and Drug Abuse Patient Records regulations: The Federal rules restrict any use of the information to criminally investigate or prosecute any alcohol or drug abuse patient.[facility]In the event this information is protected by the Federal Confidentiality of Alcohol and Drug Abuse Patient Records regulations: The Federal rules restrict any use of the information to criminally investigate or prosecute any alcohol or drug abuse patient.[facility]In the event this information is protected by the Federal Confidentiality of Alcohol and Drug Abuse Patient Records regulations: The Federal rules restrict any use of the information to criminally investigate or prosecute any alcohol or drug abuse patient.[facility]In the event this information is protected by the Federal Confidentiality of Alcohol and Drug Abuse Patient Records regulations: The Federal rules restrict any use of the information to criminally investigate or prosecute any alcohol or drug abuse patient.[facility]In the event this information is protected by the Federal Confidentiality of Alcohol and Drug Abuse Patient Records regulations: The Federal rules restrict any use of the information to criminally investigate or prosecute any alcohol or drug abuse patient.[facility]In the event this information is protected by the Federal Confidentiality of Alcohol and Drug Abuse Patient Records regulations: The Federal rules restrict any use of the information to criminally investigate or prosecute any alcohol or drug abuse patient.[facility]In the event this information is protected by the Federal Confidentiality of Alcohol and Drug Abuse Patient Records regulations: The Federal rules restrict any use of the information to criminally investigate or prosecute any alcohol or drug abuse patient.[facility]In the event this information is protected by the Federal Confidentiality of Alcohol and Drug Abuse Patient Records regulations: The Federal rules restrict any use of the information to criminally investigate or prosecute any alcohol or drug abuse patient.[facility]In the event this information is protected by the Federal Confidentiality of Alcohol and Drug Abuse Patient Records regulations: The Federal rules restrict any use of the information to criminally investigate or prosecute any alcohol or drug abuse patient.[facility]In the event this information is protected by the Federal Confidentiality of Alcohol and Drug Abuse Patient Records regulations: The Federal rules restrict any use of the information to criminally investigate or prosecute any alcohol or drug abuse patient.[facility]In the event this information is protected by the Federal Confidentiality of Alcohol and Drug Abuse Patient Records regulations: The Federal rules restrict any use of the information to criminally investigate or prosecute any alcohol or drug abuse patient.[facility]In the event this information is protected by the Federal Confidentiality of Alcohol and Drug Abuse Patient Records regulations: The Federal rules restrict any use of the information to criminally investigate or prosecute any alcohol or drug abuse patient.[facility]In the event this information is protected by the Federal Confidentiality of Alcohol and Drug Abuse Patient Records regulations: The Federal rules restrict any use of the information to criminally investigate or prosecute any alcohol or drug abuse patient.[facility]In the event this information is protected by the Federal Confidentiality of Alcohol and Drug Abuse Patient Records regulations: The Federal rules restrict any use of the information to criminally investigate or prosecute any alcohol or drug abuse patient.[facility]In the event this information is protected by the Federal Confidentiality of Alcohol and Drug Abuse Patient Records regulations: The Federal rules restrict any use of the information to criminally investigate or prosecute any alcohol or drug abuse patient.[facility]In the event this information is protected by the Federal Confidentiality of Alcohol and Drug Abuse Patient Records regulations: The Federal rules restrict any use of the information to criminally investigate or prosecute any alcohol or drug abuse patient.[facility]In the event this information is protected by the Federal Confidentiality of Alcohol and Drug Abuse Patient Records regulations: The Federal rules restrict any use of the information to criminally investigate or prosecute any alcohol or drug abuse patient.[facility]In the event this information is protected by the Federal Confidentiality of Alcohol and Drug Abuse Patient Records regulations: The Federal rules restrict any use of the information to criminally investigate or prosecute any alcohol or drug abuse patient.[facility]In the event this information is protected by the Federal Confidentiality of Alcohol and Drug Abuse Patient Records regulations: The Federal rules restrict any use of the information to criminally investigate or prosecute any alcohol or drug abuse patient.[facility]In the event this information is protected by the Federal Confidentiality of Alcohol and Drug Abuse Patient Records regulations: The Federal rules restrict any use of the information to criminally investigate or prosecute any alcohol or drug abuse patient.[facility]In the event this information is protected by the Federal Confidentiality of Alcohol and Drug Abuse Patient Records regulations: The Federal rules restrict any use of the information to criminally investigate or prosecute any alcohol or drug abuse patient.[facility]In the event this information is protected by the Federal Confidentiality of Alcohol and Drug Abuse Patient Records regulations: The Federal rules restrict any use of the information to criminally investigate or prosecute any alcohol or drug abuse patient.[facility]In the event this information is protected by the Federal Confidentiality of Alcohol and Drug Abuse Patient Records regulations: The Federal rules restrict any use of the information to criminally investigate or prosecute any alcohol or drug abuse patient.[facility]In the event this information is protected by the Federal Confidentiality of Alcohol and Drug Abuse Patient Records regulations: The Federal rules restrict any use of the information to criminally investigate or prosecute any alcohol or drug abuse patient.[facility]In the event this information is protected by the Federal Confidentiality of Alcohol and Drug Abuse Patient Records regulations: The Federal rules restrict any use of the information to criminally investigate or prosecute any alcohol or drug abuse patient.[facility]In the event this information is protected by the Federal Confidentiality of Alcohol and Drug Abuse Patient Records regulations: The Federal rules restrict any use of the information to criminally investigate or prosecute any alcohol or drug abuse patient.[facility]In the event this information is protected by the Federal Confidentiality of Alcohol and Drug Abuse Patient Records regulations: The Federal rules restrict any use of the information to criminally investigate or prosecute any alcohol or drug abuse patient.[facility]In the event this information is protected by the Federal Confidentiality of Alcohol and Drug Abuse Patient Records regulations: The Federal rules restrict any use of the information to criminally investigate or prosecute any alcohol or drug abuse patient.[facility] HospitalIn the event this information is protected by the Federal Confidentiality of Alcohol and Drug Abuse Patient Records regulations: The Federal rules restrict any use of the information to criminally investigate or prosecute any alcohol or drug abuse patient.[facility]In the event this information is protected by the Federal Confidentiality of Alcohol and Drug Abuse Patient Records regulations: The Federal rules restrict any use of the information to criminally investigate or prosecute any alcohol or drug abuse patient.[facility] HospitalIn the event this information is protected by the Federal Confidentiality of Alcohol and Drug Abuse Patient Records regulations: The Federal rules restrict any use of the information to criminally investigate or prosecute any alcohol or drug abuse patient.[facility] HospitalIn the event this information is protected by the Federal Confidentiality of Alcohol and Drug Abuse Patient Records regulations: The Federal rules restrict any use of the information to criminally investigate or prosecute any alcohol or drug abuse patient.[facility] HospitalIn the event this information is protected by the Federal Confidentiality of Alcohol and Drug Abuse Patient Records regulations: The Federal rules restrict any use of the information to criminally investigate or prosecute any alcohol or drug abuse patient.[facility] HospitalIn the event this information is protected by the Federal Confidentiality of Alcohol and Drug Abuse Patient Records regulations: The Federal rules restrict any use of the information to criminally investigate or prosecute any alcohol or drug abuse patient.[facility] HospitalIn the event this information is protected by the Federal Confidentiality of Alcohol and Drug Abuse Patient Records regulations: The Federal rules restrict any use of the information to criminally investigate or prosecute any alcohol or drug abuse patient.[facility] HospitalIn the event this information is protected by the Federal Confidentiality of Alcohol and Drug Abuse Patient Records regulations: The Federal rules restrict any use of the information to criminally investigate or prosecute any alcohol or drug abuse patient.[facility] HospitalIn the event this information is protected by the Federal Confidentiality of Alcohol and Drug Abuse Patient Records regulations: The Federal rules restrict any use of the information to criminally investigate or prosecute any alcohol or drug abuse patient.[facility] HospitalIn the event this information is protected by the Federal Confidentiality of Alcohol and Drug Abuse Patient Records regulations: The Federal rules restrict any use of the information to criminally investigate or prosecute any alcohol or drug abuse patient.[facility] HospitalIn the event this information is protected by the Federal Confidentiality of Alcohol and Drug Abuse Patient Records regulations: The Federal rules restrict any use of the information to criminally investigate or prosecute any alcohol or drug abuse patient.[facility] HospitalIn the event this information is protected by the Federal Confidentiality of Alcohol and Drug Abuse Patient Records regulations: The Federal rules restrict any use of the information to criminally investigate or prosecute any alcohol or drug abuse patient.[facility] HospitalIn the event this information is protected by the Federal Confidentiality of Alcohol and Drug Abuse Patient Records regulations: The Federal rules restrict any use of the information to criminally investigate or prosecute any alcohol or drug abuse patient.[facility] HospitalIn the event this information is protected by the Federal Confidentiality of Alcohol and Drug Abuse Patient Records regulations: The Federal rules restrict any use of the information to criminally investigate or prosecute any alcohol or drug abuse patient.[facility] HospitalIn the event this information is protected by the Federal Confidentiality of Alcohol and Drug Abuse Patient Records regulations: The Federal rules restrict any use of the information to criminally investigate or prosecute any alcohol or drug abuse patient.[facility] HospitalIn the event this information is protected by the Federal Confidentiality of Alcohol and Drug Abuse Patient Records regulations: The Federal rules restrict any use of the information to criminally investigate or prosecute any alcohol or drug abuse patient.[facility] HospitalIn the event this information is protected by the Federal Confidentiality of Alcohol and Drug Abuse Patient Records regulations: The Federal rules restrict any use of the information to criminally investigate or prosecute any alcohol or drug abuse patient.[facility] HospitalIn the event this information is protected by the Federal Confidentiality of Alcohol and Drug Abuse Patient Records regulations: The Federal rules restrict any use of the information to criminally investigate or prosecute any alcohol or drug abuse patient.[facility] HospitalIn the event this information is protected by the Federal Confidentiality of Alcohol and Drug Abuse Patient Records regulations: The Federal rules restrict any use of the information to criminally investigate or prosecute any alcohol or drug abuse patient.[facility] HospitalIn the event this information is protected by the Federal Confidentiality of Alcohol and Drug Abuse Patient Records regulations: The Federal rules restrict any use of the information to criminally investigate or prosecute any alcohol or drug abuse patient.[facility] HospitalIn the event this information is protected by the Federal Confidentiality of Alcohol and Drug Abuse Patient Records regulations: The Federal rules restrict any use of the information to criminally investigate or prosecute any alcohol or drug abuse patient.[facility] HospitalIn the event this information is protected by the Federal Confidentiality of Alcohol and Drug Abuse Patient Records regulations: The Federal rules restrict any use of the information to criminally investigate or prosecute any alcohol or drug abuse patient.[facility] HospitalIn the event this information is protected by the Federal Confidentiality of Alcohol and Drug Abuse Patient Records regulations: The Federal rules restrict any use of the information to criminally investigate or prosecute any alcohol or drug abuse patient.[facility] HospitalIn the event this information is protected by the Federal Confidentiality of Alcohol and Drug Abuse Patient Records regulations: The Federal rules restrict any use of the information to criminally investigate or prosecute any alcohol or drug abuse patient.[facility] HospitalIn the event this information is protected by the Federal Confidentiality of Alcohol and Drug Abuse Patient Records regulations: The Federal rules restrict any use of the information to criminally investigate or prosecute any alcohol or drug abuse patient.[facility] HospitalIn the event this information is protected by the Federal Confidentiality of Alcohol and Drug Abuse Patient Records regulations: The Federal rules restrict any use of the information to criminally investigate or prosecute any alcohol or drug abuse patient.[facility] HospitalIn the event this information is protected by the Federal Confidentiality of Alcohol and Drug Abuse Patient Records regulations: The Federal rules restrict any use of the information to criminally investigate or prosecute any alcohol or drug abuse patient.[facility] HospitalIn the event this information is protected by the Federal Confidentiality of Alcohol and Drug Abuse Patient Records regulations: The Federal rules restrict any use of the information to criminally investigate or prosecute any alcohol or drug abuse patient.[facility] HospitalIn the event this information is protected by the Federal Confidentiality of Alcohol and Drug Abuse Patient Records regulations: The Federal rules restrict any use of the information to criminally investigate or prosecute any alcohol or drug abuse patient.[facility] HospitalIn the event this information is protected by the Federal Confidentiality of Alcohol and Drug Abuse Patient Records regulations: The Federal rules restrict any use of the information to criminally investigate or prosecute any alcohol or drug abuse patient.[facility] HospitalIn the event this information is protected by the Federal Confidentiality of Alcohol and Drug Abuse Patient Records regulations: The Federal rules restrict any use of the information to criminally investigate or prosecute any alcohol or drug abuse patient.[facility] HospitalIn the event this information is protected by the Federal Confidentiality of Alcohol and Drug Abuse Patient Records regulations: The Federal rules restrict any use of the information to criminally investigate or prosecute any alcohol or drug abuse patient.[facility] HospitalIn the event this information is protected by the Federal Confidentiality of Alcohol and Drug Abuse Patient Records regulations: The Federal rules restrict any use of the information to criminally investigate or prosecute any alcohol or drug abuse patient.[facility] HospitalIn the event this information is protected by the Federal Confidentiality of Alcohol and Drug Abuse Patient Records regulations: The Federal rules restrict any use of the information to criminally investigate or prosecute any alcohol or drug abuse patient.[facility] HospitalIn the event this information is protected by the Federal Confidentiality of Alcohol and Drug Abuse Patient Records regulations: The Federal rules restrict any use of the information to criminally investigate or prosecute any alcohol or drug abuse patient.[facility] HospitalIn the event this information is protected by the Federal Confidentiality of Alcohol and Drug Abuse Patient Records regulations: The Federal rules restrict any use of the information to criminally investigate or prosecute any alcohol or drug abuse patient.[facility] HospitalIn the event this information is protected by the Federal Confidentiality of Alcohol and Drug Abuse Patient Records regulations: The Federal rules restrict any use of the information to criminally investigate or prosecute any alcohol or drug abuse patient.[facility] HospitalIn the event this information is protected by the Federal Confidentiality of Alcohol and Drug Abuse Patient Records regulations: The Federal rules restrict any use of the information to criminally investigate or prosecute any alcohol or drug abuse patient.[facility] HospitalIn the event this information is protected by the Federal Confidentiality of Alcohol and Drug Abuse Patient Records regulations: The Federal rules restrict any use of the information to criminally investigate or prosecute any alcohol or drug abuse patient.[facility] HospitalIn the event this information is protected by the Federal Confidentiality of Alcohol and Drug Abuse Patient Records regulations: The Federal rules restrict any use of the information to criminally investigate or prosecute any alcohol or drug abuse patient.[facility] HospitalIn the event this information is protected by the Federal Confidentiality of Alcohol and Drug Abuse Patient Records regulations: The Federal rules restrict any use of the information to criminally investigate or prosecute any alcohol or drug abuse patient.[facility] HospitalIn the event this information is protected by the Federal Confidentiality of Alcohol and Drug Abuse Patient Records regulations: The Federal rules restrict any use of the information to criminally investigate or prosecute any alcohol or drug abuse patient.[facility] HospitalIn the event this information is protected by the Federal Confidentiality of Alcohol and Drug Abuse Patient Records regulations: The Federal rules restrict any use of the information to criminally investigate or prosecute any alcohol or drug abuse patient.[facility] HospitalIn the event this information is protected by the Federal Confidentiality of Alcohol and Drug Abuse Patient Records regulations: The Federal rules restrict any use of the information to criminally investigate or prosecute any alcohol or drug abuse patient.[facility] HospitalIn the event this information is protected by the Federal Confidentiality of Alcohol and Drug Abuse Patient Records regulations: The Federal rules restrict any use of the information to criminally investigate or prosecute any alcohol or drug abuse patient.[facility] HospitalIn the event this information is protected by the Federal Confidentiality of Alcohol and Drug Abuse Patient Records regulations: The Federal rules restrict any use of the information to criminally investigate or prosecute any alcohol or drug abuse patient.[facility]In the event this information is protected by the Federal Confidentiality of Alcohol and Drug Abuse Patient Records regulations: The Federal rules restrict any use of the information to criminally investigate or prosecute any alcohol or drug abuse patient.[facility] HospitalIn the event this information is protected by the Federal Confidentiality of Alcohol and Drug Abuse Patient Records regulations: The Federal rules restrict any use of the information to criminally investigate or prosecute any alcohol or drug abuse patient.[facility]In the event this information is protected by the Federal Confidentiality of Alcohol and Drug Abuse Patient Records regulations: The Federal rules restrict any use of the information to criminally investigate or prosecute any alcohol or drug abuse patient.[facility] HospitalIn the event this information is protected by the Federal Confidentiality of Alcohol and Drug Abuse Patient Records regulations: The Federal rules restrict any use of the information to criminally investigate or prosecute any alcohol or drug abuse patient.[facility]In the event this information is protected by the Federal Confidentiality of Alcohol and Drug Abuse Patient Records regulations: The Federal rules restrict any use of the information to criminally investigate or prosecute any alcohol or drug abuse patient.[facility]In the event this information is protected by the Federal Confidentiality of Alcohol and Drug Abuse Patient Records regulations: The Federal rules restrict any use of the information to criminally investigate or prosecute any alcohol or drug abuse patient.[facility]In the event this information is protected by the Federal Confidentiality of Alcohol and Drug Abuse Patient Records regulations: The Federal rules restrict any use of the information to criminally investigate or prosecute any alcohol or drug abuse patient.[facility]In the event this information is protected by the Federal Confidentiality of Alcohol and Drug Abuse Patient Records regulations: The Federal rules restrict any use of the information to criminally investigate or prosecute any alcohol or drug abuse patient.[facility]In the event this information is protected by the Federal Confidentiality of Alcohol and Drug Abuse Patient Records regulations: The Federal rules restrict any use of the information to criminally investigate or prosecute any alcohol or drug abuse patient.[facility] HospitalIn the event this information is protected by the Federal Confidentiality of Alcohol and Drug Abuse Patient Records regulations: The Federal rules restrict any use of the information to criminally investigate or prosecute any alcohol or drug abuse patient.[facility]In the event this information is protected by the Federal Confidentiality of Alcohol and Drug Abuse Patient Records regulations: The Federal rules restrict any use of the information to criminally investigate or prosecute any alcohol or drug abuse patient.[facility]In the event this information is protected by the Federal Confidentiality of Alcohol and Drug Abuse Patient Records regulations: The Federal rules restrict any use of the information to criminally investigate or prosecute any alcohol or drug abuse patient.[facility]In the event this information is protected by the Federal Confidentiality of Alcohol and Drug Abuse Patient Records regulations: The Federal rules restrict any use of the information to criminally investigate or prosecute any alcohol or drug abuse patient.[facility]In the event this information is protected by the Federal Confidentiality of Alcohol and Drug Abuse Patient Records regulations: The Federal rules restrict any use of the information to criminally investigate or prosecute any alcohol or drug abuse patient.[facility] HospitalIn the event this information is protected by the Federal Confidentiality of Alcohol and Drug Abuse Patient Records regulations: The Federal rules restrict any use of the information to criminally investigate or prosecute any alcohol or drug abuse patient.[facility] Care Teams (unrecognized sec tion and content) Ehs Specialist Relationship Specialty Start Date End Date Maira Escamilla MD [address] [place] [address] PCP - General Family Practice 09/16/18 Ehs Specialist Relationship Specialty Start Date End Date Maira Escamilla MD [address] [place] [id number] PCP - General Family Practice 09/16/18 Ehs Specialist Relationship Specialty Start Date End Date Maira Escamilla MD [address] [place] [id number] PCP - General Family Practice 09/16/18 Ehs Specialist Relationship Specialty Start Date End Date Maira Escamilla MD [address] [place] [address] [place] [address] PCP - General Family Practice 09/16/18 Ehs Specialist Relationship Specialty Start Date End Date Maira Escamilla MD [address] [place] [id number] PCP - General Family Practice 09/16/18 Ehs Specialist Relationship Specialty Start Date End Date Maira Escamilla MD [facility] [place] [address] PCP - General Family Practice 09/16/18 Ehs Specialist Relationship Specialty Start Date End Date Maira Escamilla MD [address] [place] [id number] PCP - General Family Practice 09/16/18 Ehs Specialist Relationship Specialty Start Date End Date Maira Escamilla MD [address] [place] [address] PCP - General Family Practice 09/16/18 Ehs Specialist Relationship Specialty Start Date End Date Maira Escamilla MD [address] [place] [address] PCP - General Family Practice 09/16/18 Ehs Specialist Relationship Specialty Start Date End Date Maira Escamilla MD [address] [place] [address] PCP - General Family Practice 09/16/18 Ehs Specialist Relationship Specialty Start Date End Date Maira Escamilla MD [address] [place] [address] PCP - General Family Practice 09/16/18 Ehs Specialist Relationship Specialty Start Date End Date Maira Escamilla MD [address] [place] [address] PCP - General Family Practice 09/16/18 Ehs Specialist Relationship Specialty Start Date End Date Maira Escamilla MD [address] [place] [address] PCP - General Family Practice 09/16/18 Ehs Specialist Relationship Specialty Start Date End Date Maira Escamilla MD [address] [place] [address] PCP - General Family Practice 09/16/18 Ehs Specialist Relationship Specialty Start Date End Date Maira Escamilla MD [address] [place] [address] PCP - General Family Practice 09/16/18 Ehs Specialist Relationship Specialty Start Date End Date Maira Escamilla MD [address] [place] [address] PCP - General Family Practice 09/16/18 Ehs Specialist Relationship Specialty Start Date End Date Maira Escamilla MD [address] [place] [address] PCP - General Family Practice 09/16/18 Ehs Specialist Relationship Specialty Start Date End Date Maira Escamilla MD [address] [place] [address] PCP - General Family Practice 09/16/18 Ehs Specialist Relationship Specialty Start Date End Date Maira Escamilla MD [address] [place] [address] PCP - General Family Practice 09/16/18 Ehs Specialist Relationship Specialty Start Date End Date Maira Escamilla MD [address] [place] [address] PCP - General Family Practice 09/16/18 Ehs Specialist Relationship Specialty Start Date End Date Maira Escamilla MD [address] [place] [address] PCP - General Family Practice 09/16/18 Ehs Specialist Relationship Specialty Start Date End Date Maira Escamilla MD [address] [place] [address] PCP - General Family Medicine 09/16/18 Ehs Specialist Relationship Specialty Start Date End Date Maira Escamilla MD [address] [place] [address] PCP - General Family Medicine 09/16/18 Ehs Specialist Relationship Specialty Start Date End Date Maira Escamilla MD [address] [place] [address] PCP - General Family Medicine 09/16/18 Ehs Specialist Relationship Specialty Start Date End Date Maira Escamilla MD [address] [place] [address] PCP - General Family Medicine 09/16/18 Ehs Specialist Relationship Specialty Start Date End Date Maira Escamilla MD [address] [place] [address] PCP - General Family Medicine 09/16/18 Ehs Specialist Relationship Specialty Start Date End Date Maira Escamilla MD [address] [place] [address] PCP - General Family Medicine 09/16/18 Ehs Specialist Relationship Specialty Start Date End Date Maira Escamilla MD [address] [place] [address] PCP - General Family Medicine 09/16/18 Ehs Specialist Relationship Specialty Start Date End Date Maira Escamilla MD [address] [place] [address] PCP - General Family Medicine 09/16/18 Ehs Specialist Relationship Specialty Start Date End Date Maira Escamilla MD [address] [place] [address] PCP - General Family Medicine 09/16/18 Ehs Specialist Relationship Specialty Start Date End Date Maira Escamilla MD [address] [place] [address] PCP - General Family Medicine 09/16/18 Ehs Specialist Relationship Specialty Start Date End Date Maira Escamilla MD [address] [place] [address] PCP - General Family Medicine 09/16/18 Ehs Specialist Relationship Specialty Start Date End Date Maira Escamilla MD [address] [place] [address] PCP - General Family Medicine 09/16/18 Ehs Specialist Relationship Specialty Start Date End Date Maira Escamilla MD [address] [place] [address] PCP - General Family Medicine 09/16/18 Ehs Specialist Relationship Specialty Start Date End Date Maira Escamilla MD [address] [place] [address] PCP - General Family Medicine 09/16/18 Ehs Specialist Relationship Specialty Start Date End Date Maira Escamilla MD [address] [place] [address] PCP - General Family Medicine 09/16/18 Team Status: Active Member Role Status Dates Dr. Maira Escamilla MD Family Provider Active Dr. Maira Escamilla MD Primary Care Provider Active Team Status: Inactive Member Role Status Dates Dr. Maira Escamilla MD Primary Care Provider Active Dr. Abhishek Crowder MD Emergency Provider Active Ehs Specialist Relationship Specialty Start Date End Date Maira Escamilla MD [address] [place] [address] PCP - General Family Medicine 09/16/18 Ehs Specialist Relationship Specialty Start Date End Date Maira Escamilla MD [address] [place], [place] [address] PCP - General Family Medicine 09/16/18 Ehs Specialist Relationship Specialty Start Date End Date Maira Escamilla MD [address] [place] [address] PCP - General Family Medicine 09/16/18 Team Status: Inactive Member Role Status Dates Dr. Maira Escamilla MD Primary Care Provider Active Dr. Deepak Moreno MD Emergency Provider Active Team Status: Inactive Member Role Status Dates Dr. Maira Escamilla MD Primary Care Provider Active Dr. Deepak Moreno MD Attending Provider, Emergency Provider Active Team Status: Inactive Member Role Status Dates Dr. Maira Escamilla MD Primary Care Provider Active Dr. Jose Salgado MD Emergency Provider Active Ehs Specialist Relationship Specialty Start Date End Date Maira Escamilla MD [address] [place] [address] PCP - General Family Medicine 09/16/18 Ehs Specialist Relationship Specialty Start Date End Date Maira Escamilla MD [address] [place] [address] PCP - General Family Medicine 09/16/18 Ehs Specialist Relationship Specialty Start Date End Date Maira Escamilla MD [address] [place] [address] PCP - General Family Medicine 09/16/18 Ehs Specialist Relationship Specialty Start Date End Date Maira Escamilla MD [address] [place] [address] PCP - General Family Medicine 09/16/18 Ehs Specialist Relationship Specialty Start Date End Date Maira Escamilla MD [address] [place] [address] PCP - General Family Medicine 09/16/18 Ehs Specialist Relationship Specialty Start Date End Date Maira Escamilla MD [address] [place] [address] PCP - General Family Medicine 09/16/18 Ehs Specialist Relationship Specialty Start Date End Date Maira Escamilla MD [address] [place] [address] PCP - General Family Medicine 09/16/18 Ehs Specialist Relationship Specialty Start Date End Date Maira Escamilla MD [address] [place] [address] PCP - General Family Medicine 09/16/18 Ehs Specialist Relationship Specialty Start Date End Date Maira Escamilla MD [address] [place] [address] PCP - General Family Medicine 09/16/18 Ehs Specialist Relationship Specialty Start Date End Date Maira Escamilla MD [address] [place] [address] PCP - General Family Medicine 09/16/18 Ehs Specialist Relationship Specialty Start Date End Date Maira Escamilla MD [address] [place] [address] PCP - General Family Medicine 09/16/18 Ehs Specialist Relationship Specialty Start Date End Date Maira Escamilla MD [address] [place] [address] PCP - General Family Medicine 09/16/18 Ehs Specialist Relationship Specialty Start Date End Date Maira Escamilla MD [address] [place] [address] PCP - General Family Medicine 09/16/18 Ehs Specialist Relationship Specialty Start Date End Date Maira Escamilla MD [address] [place] [address] PCP - General Family Medicine 09/16/18 Ehs Specialist Relationship Specialty Start Date End Date Maira Escamilla MD [address] [place] [address] PCP - General Family Medicine 09/16/18 Ehs Specialist Relationship Specialty Start Date End Date Maira Escamilla MD [address] [place] [address] PCP - General Family Medicine 09/16/18 Ehs Specialist Relationship Specialty Start Date End Date Maira Escamilla MD [address] [facility], [place] [address] PCP - General Family Medicine 09/16/18 Ehs Specialist Relationship Specialty Start Date End Date Maira Escamilla MD [address] [facility], [place] [address] PCP - General Family Medicine 09/16/18 Ehs Specialist Relationship Specialty Start Date End Date Maira Escamilla MD [address] [facility], [place] [address] PCP - General Family Medicine 09/16/18 Viviana Marie CARBON ACCOUNTANT.SAUSAGE GRINDER [address] [place] [address] [employer] [facility] Family Medicine 01/18/24 Anna Nino CARBON ACCOUNTANT.SAUSAGE GRINDER [address] [place] [address] Wet Machine C[employer] Family Medicine 01/18/24 Ehs Specialist Relationship Specialty Start Date End Date Maira Escamilla MD [address] [place] [address] PCP - General Family Medicine 09/16/18 Viviana Marie, CARBON ACCOUNTANT.SAUSAGE GRINDER [address] [place] [address] Wet Machine C[facility] Family Medicine 01/18/24 Anna Nino CARBON ACCOUNTANT.SAUSAGE GRINDER [address] [place] [address] Wet Machine Cutter Family Medicine 01/18/24 Ehs Specialist Relationship Specialty Start Date End Date Maira Escamilla MD [address] [place] [address] PCP - General Family Medicine 09/16/18 Viviana Marie APRN.SAUSAGE GRINDER [address] [place] [address] Wet Machine C[facility] Family Medicine 01/18/24 Anna Nino APRN.SAUSAGE GRINDER [address] [place] [address] [facility] 01/18/24 Ehs Specialist Relationship Specialty Start Date End Date Maira Escamilla MD [address] [place] [address] PCP - General Family Medicine 09/16/18 Viviana Marie APRN.SAUSAGE GRINDER [address] [place] [address] Wet Machine C[employer] Family Medicine 01/18/24 Anna Nino APRN.SAUSAGE GRINDER [address] [place] [address] Wet Machine Cutter [facility] 01/18/24 Ehs Specialist Relationship Specialty Start Date End Date Maira Escamilla MD [address] [place] [address] PCP - General Family Medicine 09/16/18 Viviana Marie APRN.SAUSAGE GRINDER [address] [place] [address] Wet [employer] [facility] Family Medicine 01/18/24 Anna Nino APRN.SAUSAGE GRINDER [address] [place] [address] [employer] [facility] Family Medicine 01/18/24 Ehs Specialist Relationship Specialty Start Date End Date Maira Escamilla MD [address] [place] [address] PCP - General Family Medicine 09/16/18 Viviana Marie CARBON ACCOUNTANT.SAUSAGE GRINDER [address] [facility] [address] Wet Machine Cutter Family Medicine 01/18/24 Anna Nino CARBON ACCOUNTANT.SAUSAGE GRINDER [address] [facility] [place] [address] Wet Machine Cutter Family Medicine 01/18/24 Ehs Specialist Relationship Specialty Start Date End Date Maira Escamilla MD [address] [facility] [place] [place] [address] PCP - General Family Medicine 09/16/18 Viviana Marie, CARBON ACCOUNTANT.SAUSAGE GRINDER [address] [facility] [address] Wet Machine Cutter Family Medicine 01/18/24 Anna Nino CARBON ACCOUNTANT.SAUSAGE GRINDER [address] [facility] [place] [place] [address] Wet Machine Cutter Family Medicine 01/18/24 Ehs Specialist Relationship Specialty Start Date End Date Maira Escamilla MD [address] [facility] [place] [address] PCP - General Family Medicine 09/16/18 Viviana Marie, CARBON ACCOUNTANT.SAUSAGE GRINDER [address] [facility] [place] [address] [facility] 01/18/24 Anna Nino APRN.SAUSAGE GRINDER [address] [facility] [place] [address] [facility] 01/18/24 Ehs Specialist Relationship Specialty Start Date End Date Maira Escamilla MD [address] [facility] [place] [address] PCP - General Family Medicine 09/16/18 Viviana Marie APRN.SAUSAGE GRINDER [address] [facility] [place] [address] [facility] 01/18/24 Anna Nino APRN.SAUSAGE GRINDER [address] [place] [address] [facility] 01/18/24 Ehs Specialist Relationship Specialty Start Date End Date Maira Escamilla MD [address] [facility] [place] [address] PCP - General Family Medicine 09/16/18 Viviana Marie APRN.SAUSAGE GRINDER [address] [facility] [place] [address] [facility] 01/18/24 Anna Nino CARBON ACCOUNTANT.SAUSAGE GRINDER [address] [facility] [place] [address] [facility] 01/18/24 Ehs Specialist Relationship Specialty Start Date End Date Maira Escamilla MD [address] [place] [address] PCP - General Family Medicine 09/16/18 Viviana Marie APRN.SAUSAGE GRINDER [address] [facility] [place] [address] Wet Machine Cutter Family [facility] 01/18/24 Anna Nino APRN.SAUSAGE GRINDER [address] [place] [address] Wet Machine Cutter [facility] Medicine 01/18/24 Ehs Specialist Relationship Specialty Start Date End Date Maira Escamilla MD [address] [facility] [place] [address] PCP - General Family Medicine 09/16/18 Viviana Marie APRN.SAUSAGE GRINDER [address] [facility] [place] [address] [facility] 01/18/24 Anna Nino CARBON ACCOUNTANT.SAUSAGE GRINDER [address] [facility] [place] [address] [facility] 01/18/24 Ehs Specialist Relationship Specialty Start Date End Date Maira Escamilla MD [address] [place] [address] PCP - General Family Medicine 09/16/18 Viviana Marie CARBON ACCOUNTANT.SAUSAGE GRINDER [address] [facility] [place] [address] [facility] 01/18/24 Ehs Specialist Relationship Specialty Start Date End Date Maira Ecsamilla MD [address] [facility] [place] [address] PCP - General Family Medicine 09/16/18 Viviana Marie CARBON ACCOUNTANT.SAUSAGE GRINDER [address] [place] [address] Wet Machine Cutter Family [facility] 01/18/24 Ehs Specialist Relationship Specialty Start Date End Date Maira Escamilla MD [address] [place] [address] PCP - General Family Medicine 09/16/18 Viivana Marie, CARBON ACCOUNTANT.SAUSAGE GRINDER [address] [place] [address] Wet Machine C[facility] Family [facility] 01/18/24 Anna Nino CARBON ACCOUNTANT.SAUSAGE GRINDER [address] [place] [address] [facility] 01/18/24 Ehs Specialist Relationship Specialty Start Date End Date Maira Escamilla MD [address] [place] [address] PCP - General Family Medicine 09/16/18 Viviana Marie, CARBON ACCOUNTANT.SAUSAGE GRINDER [address] [place] [address] Wet Machine Cutter Family [facility] 01/18/24 Anna Nino CARBON ACCOUNTANT.SAUSAGE GRINDER [address] [place] [address] [facility] 01/18/24 Ehs Specialist Relationship Specialty Start Date End Date Maira Escamilla MD [address] [place] [address] PCP - General Family Medicine 09/16/18 Viviana Marie, CARBON ACCOUNTANT.SAUSAGE GRINDER [address] [place] [address] [facility] 01/18/24 Anna Nino CARBON ACCOUNTANT.SAUSAGE GRINDER [address] [facility] [place] [address] [facility] 01/18/24 Team Status: Active Member Role Status Dates Dr. Maira Escamilla MD Primary Care Provider Active Team Status: Inactive Member Role Status Dates Dr. Maira Escamilla MD Primary Care Provider Active Start: March 08, 2024 End: March 08, 2024 Dr. Maira Escamilla MD Referring Provider Active Start: March 08, 2024 End: March 08, 2024 FRANCISCO Atkinson Attending Provider Active Star t: March 08, 2024 End: March 08, 2024 Team Status: Inactive Member Role Status Dates Dr. Maira Escamilla MD Primary Care Provider Active Start: June 02, 2024 End: June 02, 2024 Carlos Dockery MD Emergency Provider Active Star t: June 02, 2024 End: June 02, 2024 Ehs Specialist Relationship Specialty Start Date End Date Maira Escamilla MD [address] [facility] [place] [address] PCP - General Family Medicine 09/16/18 Viviana Marie, CARBON ACCOUNTANT.SAUSAGE GRINDER [address] [facility] [place] [address] [facility] 01/18/24 Anna Nino CARBON ACCOUNTANT.SAUSAGE GRINDER [address] [facility] [place] [address] [facility] 01/18/24 Ehs Specialist Relationship Specialty Start Date End Date Maira Escamilla MD [address] [facility] [place] [address] PCP - General Family Medicine 09/16/18 Viviana Marie CARBON ACCOUNTANT.SAUSAGE GRINDER [address] [facility] [place] [address] Wet Machine Cutter Family [facility] 01/18/24 Anna Nino APRN.SAUSAGE GRINDER [address] [facility] [place] [address] Wet Machine Cutter Family [facility] 01/18/24 Ehs Specialist Relationship Specialty Start Date End Date Maira Escamilla MD [address] [facility] [place] [address] PCP - General Family Medicine 09/16/18 Viviana Marie APRN.SAUSAGE GRINDER [address] [facility] [address] Wet Machine Cutter [facility] 01/18/24 Anna Nino CARBON ACCOUNTANT.SAUSAGE GRINDER [address] [facility] [place] [address] [facility] 01/18/24 Ehs Specialist Relationship Specialty Start Date End Date Maira Escamilla MD [address] [facility] [place] [address] PCP - General Family Medicine 09/16/18 Viviana Marie APRN.SAUSAGE GRINDER [address] [facility] [address] Wet Machine Cutter [facility] 01/18/24 Anna Nino APRN.SAUSAGE GRINDER [address] [facility] [place] [address] [facility] 01/18/24 Ehs Specialist Relationship Specialty Start Date End Date Maira Escamilla MD [address] [place] [address] PCP - General Family Medicine 09/16/18 Viviana Marie APRN.SAUSAGE GRINDER [address] [place] [address] Wet Machine Cutter Family [facility] 01/18/24 Anna Nino APRN.SAUSAGE GRINDER [address] [place] [address] [facility] 01/18/24 Ehs Specialist Relationship Specialty Start Date End Date Maira Escamilla MD [address] [place] [address] PCP - General Family Medicine 09/16/18 Viviana Marie APRN.SAUSAGE GRINDER [address] [place] [address] Wet Machine Cutter [facility] 01/18/24 Anna Nino APRN.SAUSAGE GRINDER [address] [place] [address] [facility] 01/18/24 Ehs Specialist Relationship Specialty Start Date End Date Maira Escamilla MD [address] [place] [address] PCP - General Family Medicine 09/16/18 Viviana Marie APRN.SAUSAGE GRINDER [address] [place] [address] Wet Machine Cutter Family [facility] 01/18/24 Anna Nino APRN.SAUSAGE GRINDER [address] [place] [address] [facility] 01/18/24 Ehs Specialist Relationship Specialty Start Date End Date Maira Escamilla MD [address] [place] [address] PCP - General Family Medicine 09/16/18 Viviana Marie, CARBON ACCOUNTANT.SAUSAGE GRINDER [address] [facility] [place] [address] [facility] 01/18/24 Anna Nino CARBON ACCOUNTANT.SAUSAGE GRINDER [address] [facility] [place] [address] Critical Access [facility] 01/18/24 Ehs Specialist Relationship Specialty Start Date End Date Maira Escamilla MD [address] [place] [address] PCP - General Family Medicine 09/16/18 Viviana Marie, CARBON ACCOUNTANT.SAUSAGE GRINDER [address] [facility] [place] [address] [facility] Medicine 01/18/24 Anna Nino CARBON ACCOUNTANT.SAUSAGE GRINDER [address] [place] [address] [facility] Medicine 01/18/24 Ehs Specialist Relationship Specialty Start Date End Date Maira Escamilla MD [address] [place] [address] PCP - General Family Medicine 09/16/18 Viviana Marie, CARBON ACCOUNTANT.SAUSAGE GRINDER [address] [place] [address] Wet Machine Cutter Family Medicine 01/18/24 Anna Nino APRN.SAUSAGE GRINDER [address] [place], [place] [address] [facility] 01/18/24 Team Status: Active Member Role/Relationship Status Dates Dr. Maira Escamilla MD Primary Care Provider Active Team Status: Inactive Member Role/Relationship Status Dates Dr. Maira Escamilla MD Primary Care Provider Active Start: June 02, 2024 End: June 02, 2024 Carlos Dockery MD Attending Provider Active Star t: June 02, 2024 End: June 02, 2024 Carlos Dockery MD Emergency Provider Active Star t: June 02, 2024 End: June 02, 2024 Team Status: Inactive Member Role/Relationship Status Dates Dr. Maira Escamilla MD Primary Care Provider Active Start: August 16, 2024 End: August 16, 2024 Carlos Dockery MD Emergency Provider Active Star t: August 16, 2024 End: August 16, 2024 Ehs Specialist Relationship Specialty Start Date End Date Maira Escamilla MD [address] [place], [place] [address] PCP - General Family Medicine 09/16/18 Viviana Marie APRN.SAUSAGE GRINDER [address] [place], [place] [address] [facility] 01/18/24 Anna Nino APRN.SAUSAGE GRINDER [address] [place], [place] [address] [facility] 01/18/24 Goals (unrecognized section and content) Goals may be documented in a n alternate sectionGoals may be documented in an alternate sectionGoals may be documented in an alternate sectionGoals may be documented in an alternate section No data available for this sectionGoals may be documented in an alternate sectionGoals may be documented in an alternate section INFORMATION SOURCE (unrecogn ized section and content) DATE CREATED AUTHOR 09/03/2023 [facility] ([place]) DATE CREATED AUTHOR AUTHOR'S ORGANNATHAN ATION 06/06/2024 [facility] DATE CREATED AUTHOR AUTHOR'S ORGANIZ ATION 08/28/2024 [facility] DATE CREATED AUTHOR AUTHOR'S ORGANIZ ATION 08/31/2024 [facility] FOR RECORDS PERTAINING TO PATIENTS WHO ARE [...] BE BASED ON THE PRIMARY CLINICAL RECORDS. [facility] [employer] by [employer], [facility]. provides no warranty or guarantee of the accuracy or completeness of information in this document.
[2024-09-01 05:53] LABS: Internal QC Validated? YES +Cl - CLEAR BKGD; Pregnancy, Urine Negative Negative; Record Kit Lot#,Urine Preg 0000962302
[2024-09-01] MEDS: Lactated Ringers 1,000 ML 40 ML IV (06:18)
[2024-09-01] MEDS: Ketorolac 30 MG/ML Syringe IV (06:19)
[2024-09-01] MEDS: Scopolamine 1mg/72hr Patch 1 PATCH TD (06:27)
[2024-09-01] MEDS: Magnesium 1 GM over 15 mins IV (06:28)
--- NOTE | 2024-09-01 07:21 | PCM.PRE.AN2 ---
ASA Classification* ASA Classification ASA Classification: 2 Assessment & Plan Anesthesia* Anesthesia Assessment Anesthesia Assessment: Discussed sedation and/or anesthesia options, risks, benefits, and alternatives with patient/parents/legal guardian/POA. Questions invited. The patient/parents/legal guardian/POA seems to understand and agrees to proceed with anesthesia plan. Reviewed the physical assessment, medical history, allergy history and patient home medications list prior to surgery/procedure/anesthetic and documented any changes. Performed airway and anesthesia risk assessments. Anesthesia Type Anesthesia Type: General (Hx of GERD, but patient claims no more symptoms since Mark en Y surgery. ) History Source History Obtained from:: Patient and Chart Anesthesia Focused Assessment* Temperature: 98.3 F Pulse Rate: 71 Blood Pressure: 101/54 Respiratory Rate: 16 Pulse Ox: 100 Oxygen Delivery Method: Room Air Airway Assessment Mouth opens: >3 cm Mallampati Score: II Teeth Condition: Chipped/Broken (broken top side teeth, bilaterally. ) Neck Range of motion (ROM): Full ROM Labs Anesthesia Preop lab: CBC WBC 6.9 K/mm3 (4.4-11.0) 08/16/24 09:08/16/24 RBC 4.17 M/mm3 (4.2-5.4) L 08/16/24 09:08/16/24 Hgb 11.9 g/dL (12.0-15.0) L 08/16/24 09:08/16/24 Hct 35.8 % (37-47) L 08/16/24 09:30 08/16/24 Plt Count 207 K/mm3 (150-450) 08/16/24 09:30 08/16/24 CHEMISTRY Potassium 4.0 mmol/L (3.3-5.1) 08/16/24 09:30 08/16/24 Sodium 136 mmol/L (133-145) 08/16/24 09:08/16/24 Magnesium 2.3 mg/dL (1.5-2.2) H 08/30/24 12:16 08/30/24 BUN 8 mg/dL (4-19) 08/16/24 09:30 08/16/24 Creatinine 0.55 mg/dL (0.70-1.20) L 08/16/24 09:08/16/24 Glucose 97 mg/dL (70-99) 08/16/24 09:30 08/16/24 POC Glucose 82 mg/dL (74-106) 09/01/24 05:59 09/01/24 TSH 1.91 uIU/mL (0.358-3.74) 08/21/23 04:29 08/21/23 COAG PT 15.2 SECONDS (11.7-14.9) H 08/20/23 10:56 08/20/23 Urine Test Negative Negative 09/01/24 05:35 09/01/24 Pre-Assessment Diagnosis/Proposed Procedure Planned Operative Procedure(s): (B) Hysterectomy TLH, bilateral salpingectomy, ERAS Anesthesia History 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 When Was Last Pacemaker Check QUESTION #4 FULL TEXT: You/Your Family Experience fever (hyperthermia) with Anesthesia Any additional information?: No Last Oral Intake Last Oral intake: Last Oral Intake NPO since 04:30 09/01/24 06:09 Meds taken in AM with sips of No 09/01/24 06:09 water? Meds patient instructed to take am of surgery Any additional information?: Yes Meds patient instructed to take am of surgery: No solid food since prior to midnight, had Ensure preop drink at 0430. PONV PONV - statistical methods professor: PONV - statistical methods professor Female Yes 08/25/24 11:24 HX of Motion Sickness No 08/25/24 11:24 HX of N/V After Surgery No 08/25/24 11:24 Non-Smoker No 08/25/24 11:24 Duration of Surgery greater Yes 08/25/24 11:24 than 60 minutes Number of Risk Factors 2 08/25/24 11:24 PONV Score Moderate Risk 08/25/24 11:24 Any additional information?: No Height & Weight Height & Weight: Anesthesia: Height & Weight Height 5 ft 8 in 09/01/24 06:09 Weight: 89.811 kg 09/01/24 06:09 Body Mass Index (BMI) 30.1 09/01/24 06:09 Respiratory Assessment Respiratory Assessment - statistical methods professor: Respiratory Tract Infection Hx - statistical methods professor Hx Respiratory Tract Infection No 08/25/24 11:24 Any additional information?: No STOP Sleep Apnea STOP Sleep Apnea - statistical methods professor: STOP Sleep Apnea - statistical methods professor Hx Hypertension No 08/25/24 11:24 Hx Sleep Apnea No 08/25/24 11:24 CPAP BIPAP Do you snore loudly (louder No 08/25/24 11:24 than talking or can be heard Do you often feel tired/ No 08/25/24 11:24 fatigued/ sleepy during daytime? Has anyone observed you stop No 08/25/24 11:24 breathing during sleep? STOP Results Negative 08/25/24 11:24 QUESTION #5 FULL TEXT : Do you snore loudly (louder than talking or can be heard through closed doors)? Any additional information?: No Tobacco Use History Tobacco Use History - statistical methods professor: Tobacco Use History - statistical methods professor Tobacco Use Smoking Status Current every day smoker 08/25/24 11:24 Hx Tobacco Use No 08/25/24 11:24 Years Smoking Packs Smoked per Day Smoking Cessation Date was within the last 15 years Hx Smoking Cessation Date Hx Smoking Cessation No 08/25/24 11:24 Counseling Any additional information?: Yes Tobacco Use: Vapor Hematologic Medial History Hematologic Hx - statistical methods professor: Hematologic Medical Hx - rn iv therapy Hx of Blood Transfusion No 08/25/24 11:24 Hx of Transfusion in last 3 No 08/25/24 11:24 Months Date of Last Transfusion (if within last 3 months) Ever experience any problems No 08/25/24 11:24 with transfusion(s)? Specify any problems Hx of Preganancy in last 3 N/A 08/25/24 11:24 Months Nurse Filling Out Transfusion NBUCHER 08/25/24 11:24 & Questions: Date: 08/25/24 08/25/24 11:24 Time: 11:26 08/25/24 11:24 Patient unable to answer at this time (ie. confused, unrespo Any additional information?: No /Reproduction History /Reproductive History - statistical methods professor: /Reproductive Hx- statistical methods professor Hx Now No 08/25/24 11:24 Gestational Age (in weeks): EDC: Hx Hx Para Hx Section SAB No 08/25/24 11:24 Any additional information?: No Active Medications Active Medications: Current Medications Generic Name Dose Route Start Last Admin Trade Name Freq PRN Reason Stop Dose Admin Acetaminophen 1,000 mg 09/01/24 07:30 09/01/24 06:21 Acetaminophen 500 Mg Tablet PO 09/01/24 07:31 1,000 mg PREOP ONE Administration Dexamethasone Sodium Phosphate 8 mg 09/01/24 07:30 Dexamethasone 4 Mg/Ml Vial IV 09/01/24 07:31 INTRAOP ONE Enoxaparin Sodium 40 mg 09/01/24 07:30 09/01/24 06:27 Enoxaparin 40 Mg/0.4 Ml Syringe SC 09/01/24 07:31 40 mg PREOP ONE Administration Lactated Ringer's 1,000 mls @ 40 mls/hr 09/01/24 07:30 09/01/24 06:18 IV 40 mls/hr .Q25H [place] Administration Lactated Ringer's 1,000 mls @ 70 mls/hr 09/01/24 07:30 IV .[id number] [place] Cefazolin Sodium 2 gm/ Sodium 110 mls @ 150 mls/hr 09/01/24 07:30 Chloride IV 09/01/24 08:13 INTRAOP ONE Magnesium Sulfate 1 gm/ 102 mls @ 408 mls/hr 09/01/24 07:30 09/01/24 06:28 Dextrose IV 09/01/24 07:44 408 mls/hr PREOP ONE Administration Insulin Human Lispro 0 unit 09/01/24 07:30 Insulin Lispro 100 Unit/Ml Insuln.Pen SC 09/01/24 18:00 Q4H PRN PRN BG >/= 180, SEE PROTOCOL Protocol Ketorolac Tromethamine 30 mg 09/01/24 07:30 09/01/24 06:19 Ketorolac 30 Mg/Ml Syringe IV 09/01/24 07:31 30 mg X1 ONE Administration Ondansetron HCl 4 mg 09/01/24 07:30 Ondansetron 4 Mg/2 Ml Vial IV 09/01/24 07:31 INTRAOP ONE Phenazopyridine HCl 190 mg 09/01/24 07:30 09/01/24 06:21 Phenazopyridine 95 Mg Tablet PO 09/01/24 07:31 190 mg PREOP ONE Administration Scopolamine HBr 1 patch 09/01/24 07:30 09/01/24 06:27 Scopolamine 1mg/72hr Patch TD 09/01/24 07:31 1 patch PREOP ONE [facility] History Wears contact lenses Anxiety History of steroid therapy Low iron Restless legs Migraine headache Electronic cigarette use History of echocardiogram History of stress test Tachycardia Bradycardia Migraine GERD (gastroesophageal reflux disease) Arthritis GERD (gastroesophageal reflux disease) Osteoarthritis Home Medications ?Medication ?Instructions ?Recorded ?Last Taken ?Type albuterol sulfate 2.5 mg/3 mL 2.5 mg inhalation Q4HWA.RT PRN Sob 12/04/18 Unknown History (0.083 %) solution for nebulization &/Or Wheezing pregabalin 75 mg capsule 75 mg PO DAILY nerves/pain 12/15/19 08/31/24 08:00 History cholecalciferol (vitamin D3) 50 50 mcg PO DAILY supplement 08/20/23 08/31/24 08:00 History mcg (2,000 unit) tablet (D3 DOTS) multivitamin with iron 1 tab PO DAILY supplement 08/20/23 08/31/24 08:00 History vitamin B complex (Complex B-100 1 tab PO DAILY supplement 08/20/23 08/31/24 08:00 History tablet,extended release) sumatriptan succinate 100 mg tablet 100 mg PO .COMPLEX 09/02/23 Unknown History alprazolam 0.5 mg tablet (Xanax) 0.5 mg PO QDAY PRN anxiety 03/08/24 Unknown History sertraline 50 mg tablet 50 mg PO DAILY 03/08/24 08/31/24 08:00 History ferrous sulfate 325 mg (65 mg 325 mg PO DAILY 08/25/24 08/31/24 08:00 History iron) tablet (Feosol) Allergy/AdvReac Type Severity Reaction Status Date / Time gabapentin (From Neurontin) Allergy Swelling Verified 09/01/24 06:04 human papillomavirus AdvReac Severe Swelling Verified 09/01/24 06:04 vaccine, quadr (From Gardasil (PF)) topiramate (From Topamax) AdvReac Mild TINGLING Verified 09/01/24 06:04 prednisone AdvReac Other Verified 09/01/24 06:04 Family History Mother Breast cancer Father Arthritis Surgical History History of gastric bypass Status post panniculectomy H/O section History of tonsillectomy History of ankle surgery History of foot surgery History of Mark-en-Y gastric bypass Hx of cholecystectomy History of bilateral tubal ligation Social History household members: significant other Smoking Status: Current every day smoker tobacco type: e-cigarettes substance use type: does not use Addt'l Information Additional Findings: HX MARK en Y, NO OG Review of Systems (Anesthesia) ROS Narrative System reviewed and no additional complaints, except as documented.
--- NOTE | 2024-09-01 07:30 | UT_PTH ---
PATIENT: RAUL VOGT LOC: [facility] [place] U#:[id number] AGE/SX: 43/F ROOM: RE09/01/[address]: Dr. Beulah Norton MD : 1980 BED: DIS: 09/01/2024 SPEC #: [id number] RECD: 09/01/24 10:03 STATUS: TIARA RERon #: [id number] ANTHONY: 09/01/24 07:[address]: Beulah Norton DEPT: SURGICAL PATHOLOGY RECD BY: Demetrio Navarro ENTERED: 09/01/24 13:11 SP TYPE: UTERUS OTHR DR: Dr. Toi Mendez MD Tissues: A - Uterus, NOS Procedures: Surgery Specimen Level V HEADER OPERATION: ERAS, hysterectomy TLH, bilateral salpingectomy PRE-OP DIAGNOSIS: Dysmenorrhea, abnormal uterine bleeding, adenomyosis, intramural uterine fibroid, arcuate uterus TISSUE SUBMITTED: A- Uterus, cervix, bilateral fallopian tubes MICROSCOPIC DIAGNOSIS A. Uterus, cervix, fallopian tubes, hysterectomy, salpingectomy: - Cervix: hyperkeratosis, focal dilated endocervical glands. - Endometrium: secretory phase. - Myometrium: adenomyomatosis, leiomyoma (0.5 cm). - Serosa: delicate adhesions with benign mesothelial inclusion cyst. - Fallopian tubes: benign paratubal cysts. MICROSCOPIC DESCRIPTION Slides are reviewed. GROSS DESCRIPTION A. Received in formalin labeled with the patient's name and date of . Designated as uterus, cervix, bilateral fallopian tubes is a 120.6 g, 8.2 x 5.7 x 4.4 cm uterus with detached adnexa. The serosa is dark pink-purple with dense, possible adhesions of the cornu. There is also a 1.1 x 0.8 x 0.3 cm area of edematous serosa at the cornu (suspicious for cyst). The attached cervix is sapp-pink and erythematous, measuring 2.5 x 2.4 cm; the 0.9 cm os is probe patent. The specimen is inked as follows: Lwjuhibf-wzqwvDlkfstrkr-rkgncOableusxqja-orange. Opening reveals a 5.3 x 3.4 cm slightly irregular endometrial canal lined by lush, pink endometrium that measures up to 0.6 cm thick. There is a mucoid cyst in the posterior lower uterine segment. The myometrium is sapp-pink trabeculated and possibly cystic, measuring up to 2.3 cm thick. There are 2 possible intramural leiomyomas, 0.5 cm and 1.4 cm. The pink-red bilateral fallopian tubes are fimbriated, measuring 2.4 x 0.4 cm and 5.2 x 0.5 cm. There are 2 paratubal cysts, 0.9 cm and 1.1 cm. The longer fallopian tube has an attached, bianchi metallic clamp (consistent with a contraception device). Unemployment Insurance Hearing Officer sections are submitted as follows: A1-A3: Anterior cervixA4-A5: Posterior cervix A6: Posterior cervix, lower uterine segment with cystA7: Anterior endomyometriumA8: Posterior endomyometriumA9-A10: Fallopian nutnsM06: Serosal adhesions, edema (vs cyst) A12: Intramural leiomyomas OK 09/01/2024 CPT:63598
--- NOTE | 2024-09-01 07:49 | PCM.DC ---
Discharge Instructions DC O2, CPAP, BIPAP needs Home O2 Discharge instructions: No Dressing / Incision Discharge Activity: May Drive (in 3-5 days when not on pain medication) and - (No submergine in water for 6 weeks. ) May shower in (days): 1 May resume sexual activity in: 6-8 weeks and - (Nothing in your vagina for 6 weeks. No vaginal or anal intercourse for 6-8 weeks) Lifting Restrictions: 15 lbs x 6 weeks Dressing / Incision Call your doctor if your incision/area has: Continuous Slow Oozing, Sudden Increased Bleeding, Increased Pain/ Swelling and Foul Smelling Discharge Call your doctor if you observe: Fever of 101 or Higher Cleanse incision/area with: Soap & Water and - (Your incisions have skin glue, it can get wet, leave the glue on until it falls off. ) Follow Up Care Please Follow Up With: Beulah Norton MD When: With my office in 1-2 and 6 weeks or as needed. [phone] call or send a [employer] message as needed Test Results: Test results from this visit will be discussed in further detail at your follow-up appointment, if applicable. Discharge Plan Admission Primary Reason for Your Visit: Hysterectomy Attending Provider: Beulah Norton Primary Care Provider: Toi Mendez Instructions Print Language: Slovak Discharge Orders/Prescriptions Prescriptions: New acetaminophen [Acetaminophen Extra Strength] 500 mg tablet 1,000 mg PO Q6H PRN (Reason: fever or pain) 30 Days Qty: 90 1RF oxycodone 5 mg tablet 5 mg PO Q8H PRN (Reason: severe pain) 7 Days Qty: 20 0RF Continued sertraline 50 mg tablet 50 mg PO DAILY alprazolam [Xanax] 0.5 mg tablet 0.5 mg PO QDAY PRN (Reason: anxiety) albuterol sulfate 2.5 MG/3 ML solution for nebulization 2.5 mg inhalation Q4HWA.RT PRN (Reason: Sob &/Or Wheezing) Patient Comments: only when pt has bronchitis pregabalin 75 MG capsule 75 mg PO DAILY sumatriptan succinate 100 mg tablet 100 mg PO .COMPLEX Rx Instructions: 100 mg orally TAKE 1 TABLET BY MOUTH NEEDED AT ONSET OF HEADACHE. MAY REPEAT DOSE AFTER 2 HOURS; multivitamin with iron 1 tab PO DAILY Complex B-100 Tablet Extended Release 1 tab PO DAILY cholecalciferol (vitamin D3) [D3 DOTS] 50 mcg (2,000 unit) tablet 50 mcg PO DAILY ferrous sulfate [Feosol] 325 mg (65 mg iron) tablet 325 mg PO DAILY Referrals / Follow Up: Toi Mendez MD [Primary Care Provider] - Disposition Disposition (needs filled in before D/C Order can be placed): Home, Self Care
--- NOTE | 2024-09-01 09:38 | PCM.OPRPT ---
Problems Associated Problem List Diagnoses (1) Postoperative pain: (2) Arcuate uterus: (3) Intramural uterine fibroid: (4) Adenomyosis: (5) Abnormal uterine bleeding (AUB): (6) Dysmenorrhea: Operative Report (Standard) Operative Information Date of Procedure: 09/01/24 Pre-Operative Diagnosis: aub, fibroids, dysmenorrhea, adenomyosis, arcuate uterus Post-Operative Diagnosis: same Surgery/Procedure Performed: TLH, bilateral salpingectomy and cysto welfare worker: Yes Hand I Thermal Cutter: Jose Crocker Tasks completed by first dyer: Closing, Hemostasis: Electrocautery, Trocar and Retracting Type of Anesthesia: General RN Documented Start/Stop Times: Operation Date: 09/01/24 07:30 Case Time Into Pre-Op 09/01/24 05:38 Out of Pre-Op 09/01/24 07:30 Anesthesia Start 09/01/24 07:35 Into Room 09/01/24 07:35 Procedure Start 09/01/24 08:07 Procedure Start Time: 08:07 Procedure Stop Time: 09:38 Select all DRAINS/GRAFTS/IMPLANTS that apply: None Estimated Blood Loss: 100 Fluids Replaced: 1000 cc LR Specimen collected: Yes Description of specimen(s) removed: uterus, cervix, bilateral fallopian tubes Description of surgery: The patient was taken to the operating room where she was prepped and draped in the dorsal lithotomy position. Her arms were tucked to the side and padded and her legs were placed in the yellowfin stirrups. Care was taken to ensure that she was placed in a neurologically safe and neutral position. A weighted speculum was placed in the vagina and the anterior lip of the cervix was grasped with a single-tooth tenaculum. The cervix sounded to 9 centimeters. 2-0 Vicryl sutures were secured to the cervix at 3 and 9:00. The 2 cm Uterine director of undergraduate admissions placed into the cervix and the balloon inflated. The stay sutures were placed through the cup and secured down to the cervix. Once the director of undergraduate admissions was secured to the cervix the Beard catheter was placed to straight drain. Attention was turned to the abdominal portion of the case. Before skin incisions were made they were infiltrated with 0.5% Marcaine solution for local anesthetic. A 5 mm LUQ incision was made and while tenting the anterior abdominal wall up with towel clamps a 5 mm blade less trocar and sleeve were advanced directly into the peritoneal cavity with visualization through the Visiport. Peritoneal placement was confirmed with the laparoscope the pneumoperitoneum was created, and the underlying abdominal contents were intact. The patient was placed in Trendelenburg and the above findings were noted. Right 5mm and left lateral 7 mm trochars were placed under direct visualization without difficulty. The antimesenteric portion of the tube was clamped sealed and transected serially on both sides with the LigaSure device. The round ligaments were clamped sealed and transected and a window was made in the peritoneum. The utero-ovarian ligaments were then clamped sealed and transected with the LigaSure device and the pedicles were hemostatic The bladder flap was dissected down with the LigaSure device and blunt dissection and the uterine arteries were then skeletonized. The uterine arteries were clamped sealed and transected on both sides with the LigaSure device. Then along the cardinal ligament uterine arteries adjacent to the cervix were clamped sealed and transected with the LigaSure device to move them away from the vaginal cuff angle. At this point the pedicles were all examined and found to be hemostatic. The bladder flap was rechecked and found to be adequately down. The monopolar tip of the LigaSure device was then used to enter the anterior vagina. The vaginal manipulator cup was noted in the vaginal colpotomy incision was made circumferentially around the cup. When the 3 and 9:00 positions of the cervicovaginal junction were reached these were clamped sealed and transected with the LigaSure device to secure any small remaining vessels. At this point the pedicles were hemostatic from above and attention was turned to the vaginal portion of the case again. The uterus was brought intact out through the vaginal colpotomy incision along with the tubes There is some bleeding from the left vaginal cuff angle and this was grasped with a Nancy clamp and suture ligated. The posterior cuff was secured to the periotoneum in a running locked fashion with 2-0 vicryl suture. Vaginal angle sutures were placed on both sides with 0 Vicryl sutures and care was taken to ensure that the uterosacral ligament was secured into this stitch. The remainder the vagina was then closed horizontally with interrupted 0 Vicryl sutures. The cuff was hemostatic vaginally. The Beard catheter was removed and a cystoscopy was performed. The bladder appeared normal and was intact. Both ureteral orifices were noted and both ureteral jets were seen. The cystoscope was removed and the Beard catheter was placed back to straight drain. A sponge stick was placed in the vagina to help place traction against the vaginal cuff and the pneumoperitoneum was re-created. The suction furniture upholstery mechanic was used to remove any blood and clots from the peritoneal cavity. The pedicles were reexamined and found to be hemostatic. The vaginal cuff was hemostatic. Some Hemablast was placed over the cuff and the pedicles and no active bleeding was noted through the Hemablast. The right and left lateral ports were taken out and the sites were hemostatic. The pneumoperitoneum was released and even under low pressure there was no bleeding of any of the pedicles are vaginal cuff. The umbilical port was removed. The umbilical skin incisions were closed with Monocryl suture and skin glue by the SOFTBALL CORE MOLDER with me present. The vaginal instruments were removed by me and a vaginal sweep was completed by me. The surgery was performed by me with assistance other than the portions dictated as above. There were no qualified residents available for this procedure. All sponge lap and needle counts were correct and the patient was transferred to the recovery room in stable condition. Surgical Findings: normal cervix and vagina, boggy uterus w/ fibroid, tubes with Filshie clips, normal ovaries, normal peritoneal cavity without significant adhesions Complications Complications: No Admit VTE Documentation VTE Present on Admission: No VTE Mechan Device Prophylaxis: SCD's VTE Pharm Prophylaxis ordered?: Yes
--- NOTE | 2024-09-01 09:54 | PCM.POST.ANE ---
Anesthesia: Postop Eval I Current Vital Signs Temperature: 97.2 F Pulse Rate: 71 Blood Pressure: 112/65 Respiratory Rate: 16 Pulse Ox: 99 Oxygen Delivery Method: Room Air Assessment Airway patent: Yes Spontaneous unlabored respirations: Yes Mental status: Awake nausea: No Vomiting: No Anesthesia Complication: No Fluid Hydration Crystalloid volume administer (ml): 1,000 Total IV fluid infused: 1,000 Progress Note Anesthesia document: Postop Eval 1 completed: Yes
--- NOTE | 2024-09-01 11:55 | POSTOPAN2_ITS ---
Anesthesia Postop Eval I Sum Postop Eval Completion status Anesthesia document: Postop Eval 1 completed: Yes Anesthesia Postop Eval I Summary Anesthesia Postop Eval I Summary: Anesthesia Postop Eval I: Assessment Summary Airway patent Yes 09/01/24 09:56 LEGAL DIRECTOR.[email or web address] Spontaneous unlabored Yes 09/01/24 09:56 LEGAL DIRECTOR.MIGUEL respirations Mental status Awake 09/01/24 09:56 LEGAL DIRECTOR.MIGUEL nausea No 09/01/24 09:56 LEGAL DIRECTOR.MIGUEL Vomiting No 09/01/24 09:56 LEGAL DIRECTOR.MIGUEL Anesthesia Postop Eval I: Fluid Summary Crystalloid volume administer 1,000 09/01/24 09:56 LEGAL DIRECTOR.MIGUEL (ml) Colloids volume administered ( ml) Blood Product volume administered (ml) Total IV fluid infused 1,000 09/01/24 09:56 LEGAL DIRECTOR.MIGUEL Anesthesia Postop Eval I: Summary Notes Anesthesia Complication No 09/01/24 09:56 LEGAL DIRECTOR.MIGUEL Anesthesia Complication Comment: Post-operative progress note Anesthesia: Postop Eval II Evaluation Mental status: Awake and Calm Pain Level: 1 nausea: No Vomiting: No Complications Anesthesia Complication: No
--- NOTE | 2024-09-01 11:55 | PCM.POSTANE2 ---
Anesthesia Postop Eval I Sum Postop Eval Completion status Anesthesia document: Postop Eval 1 completed: Yes Anesthesia Postop Eval I Summary Anesthesia Postop Eval I Summary: Anesthesia Postop Eval I: Assessment Summary Airway patent Yes 09/01/24 09:56 NOVELTY PRINTING MACHINE OPERATOR.MIGUEL Spontaneous unlabored Yes 09/01/24 09:56 NOVELTY PRINTING MACHINE OPERATOR.MIGUEL respirations Mental status Awake 09/01/24 09:56 NOVELTY PRINTING MACHINE OPERATOR.MIGUEL nausea No 09/01/24 09:56 NOVELTY PRINTING MACHINE OPERATOR.MIGUEL Vomiting No 09/01/24 09:56 NOVELTY PRINTING MACHINE OPERATOR.MIGUEL Anesthesia Postop Eval I: Fluid Summary Crystalloid volume administer 1,000 09/01/24 09:56 NOVELTY PRINTING MACHINE OPERATOR.MIGUEL (ml) Colloids volume administered ( ml) Blood Product volume administered (ml) Total IV fluid infused 1,000 09/01/24 09:56 NOVELTY PRINTING MACHINE OPERATOR.MIGUEL Anesthesia Postop Eval I: Summary Notes Anesthesia Complication No 09/01/24 09:56 NOVELTY PRINTING MACHINE OPERATOR.MIGUEL Anesthesia Complication Comment: Post-operative progress note Anesthesia: Postop Eval II Evaluation Mental status: Awake and Calm Pain Level: 1 nausea: No Vomiting: No Complications Anesthesia Complication: No
== END 2024-09-01 13:05 | disposition home or self-care (01) ==
LOC: SDC 05:29 → AC 05:30
PROVIDERS: PCP Family Medicine; Referring Provider Obstetrics & Gynecology; Visit Provider Obstetrics & Gynecology
PROC: 0UT94ZZ Resection of Uterus, Percutaneous Endoscopic Approach (ICD-10-PCS; CPT 58552; principal; 2024-09-01 07:10)
DX: D25.1 Intramural leiomyoma of uterus (principal); Z79.4 Long term (current) use of insulin; N94.6 Dysmenorrhea, unspecified; N93.9 Abnormal uterine and vaginal bleeding, unspecified; Q51.810 Arcuate uterus; N80.03 Adenomyosis of the uterus; Z87.891 Personal history of nicotine dependence; Z79.899 Other long term (current) drug therapy; Z98.84 Bariatric surgery status; N88.0 Leukoplakia of cervix uteri; N83.8 Other noninflammatory disorders of ovary, fallopian tube and broad ligament; K21.9 Gastro-esophageal reflux disease without esophagitis
CPT/HCPCS: 58552; 00944; 81025; 36415; 82962; 83735; 86850; 86900; 86901; 88307; J2405; J3475

== ENCOUNTER 2024-09-10 14:10 | Emergency (ER) | payer MEDICAID, SELFPAY ==
[2024-09-10] VITALS (11 sets, daily range): BP systolic 95–108; BP diastolic 52–72; PULSE 61–107; RESP 12–21; TEMP 37.1–39.3; O2SAT 94–100; BMI 28.3
--- NOTE | 2024-09-10 14:28 | CT_ITS ---
PROCEDURE: ABDOMEN/PELVIS W IV CONT ONLY 09/10/2024 REASON FOR EXAM: FEVER, GUARDING, STATUS POST VAGINAL HYSTERECTOMY TECHNIQUE: ABDOMEN/PELVIS W IV CONT ONLY Coronal and Sagittal reconstruction series were provided. CONTRAST: Isovue 370 VOLUME: 100 mL One or more dose reduction techniques were used (e.g., Automated exposure control, adjustment of the mA and/or kV according to patient size, use of iterative reconstruction technique. RADIATION DOSE SUMMARY: CTDlvol: 16.25 mGy DLP: 893.28 mGycm COMPARISON: Abdomen/Pelvis W IV Cont ONLY - 24-Jun-2021 3:19 PM FINDINGS: LUNG BASES: No basilar airspace consolidation or pleural effusion. LIVER: Unremarkable. GALLBLADDER: Unremarkable. No calcified stone. BILE DUCTS: No ductal dilation. PANCREAS: Unremarkable. SPLEEN: Unremarkable. ADRENAL GLANDS: Unremarkable. KIDNEYS: The kidneys enhance symmetrically. Hypodense 1.5 cm parapelvic cyst in the right kidney, previously 1.3 cm, likely a cyst. No hydronephrosis or hydroureter. STOMACH AND BOWEL: Prior gastric bypass surgery. No obstruction or perforation. Mild wall thickening of the mid sigmoid colon. APPENDIX: Normal-appearing appendix. No CT evidence for appendicitis. RETRO/PERITONEUM: No free fluid. No free air. LYMPH NODES: No lymphadenopathy. PELVIC ORGANS: Status post hysterectomy. Peripherally enhancing fluid collection in the left pelvis measuring 6.0 (AP) x 1.7 (TR) x 1.8 (CC) cm with extensive surrounding inflammatory changes. Unremarkable urinary bladder and ovaries. VASCULATURE: No aortic aneurysm. ABDOMINAL WALL AND SOFT TISSUES: Prior ventral abdominal wall surgery. BONES: No fracture or suspicious osseous abnormality. Moderately severe L5-S1 degenerative disc disease. CT/Abdomen/Pelvis W IV Cont ONLY IMPRESSION: 1. Status post hysterectomy. Left pelvic abscess with extensive surrounding i nflammatory changes. 2. Mildly thickened mid sigmoid colon, likely secondary inflammation versus fo delicia colitis. Reading Location: [id number]
--- NOTE | 2024-09-10 14:30 | EX.ED.DYSGE1 ---
HPI <FRANCISCO Brown - Last Filed: 09/10/24 16:47> History of Present Illness Chief Complaint: Fever Narrative Narrative: Patient presenting today with pelvic pain that radiates to her low back, fevers, and chills that started last night. She had a TLH, bilateral salpingectomy, and cystoscopy performed by Dr. Norton on 09/01/2024. She had a follow-up yesterday and was told everything was looking good. She had a slight skin reaction to the surgical glue on her abdomen but otherwise has had no postop complications. She reports urinary frequency but denies dysuria. She denies vomiting and stool changes. PFS <FRANCISCO Brown - Last Filed: 09/10/24 16:47> [facility] Medical History Wears contact lenses Anxiety History of steroid therapy Low iron Restless legs Migraine headache Electronic cigarette use History of echocardiogram History of stress test Tachycardia Bradycardia Migraine GERD (gastroesophageal reflux disease) Arthritis GERD (gastroesophageal reflux disease) Osteoarthritis Home Medications ?Medication ?Instructions ?Recorded ?Last Taken ?Type pregabalin 75 mg capsule 75 mg PO DAILY nerves/pain 12/15/19 09/09/24 History cholecalciferol (vitamin D3) 50 50 mcg PO DAILY supplement 08/20/23 09/09/24 History mcg (2,000 unit) tablet (D3 DOTS) multivitamin with iron 1 tab PO DAILY supplement 08/20/23 09/09/24 History vitamin B complex (Complex B-100 1 tab PO DAILY supplement 08/20/23 09/09/24 History tablet,extended release) sertraline 50 mg tablet 50 mg PO DAILY 03/08/24 09/09/24 History ferrous sulfate 325 mg (65 mg 325 mg PO DAILY 08/25/24 09/09/24 History iron) tablet (Feosol) acetaminophen 500 mg tablet 1,000 mg (2 x 500 mg) PO Q6H PRN 09/01/24 09/10/24 Rx (Acetaminophen Extra Strength) fever or pain 30 days #90 tabs oxycodone 5 mg tablet 5 mg PO Q8H PRN severe pain 7 days 09/01/24 09/10/24 Rx #20 TABLETS hydroxyzine HCl 25 mg tablet 25 mg PO TID PRN PRN itch 09/10/24 09/09/24 History triamcinolone acetonide 0.5 % 1 applic topical TID 09/10/24 09/09/24 History topical cream Allergy/AdvReac Type Severity Reaction Status Date / Time gabapentin (From Neurontin) Allergy Swelling Verified 09/10/24 14:11 human papillomavirus AdvReac Severe Swelling Verified 09/10/24 14:11 vaccine, quadr (From Gardasil (PF)) topiramate (From Topamax) AdvReac Mild TINGLING Verified 09/10/24 14:11 prednisone AdvReac Other Verified 09/10/24 14:11 Family History Mother Breast cancer Father Arthritis Surgical History History of gastric bypass Status post panniculectomy H/O section History of tonsillectomy History of ankle surgery History of foot surgery History of Mark-en-Y gastric bypass Hx of cholecystectomy History of bilateral tubal ligation Social History household members: significant other Smoking Status: Current every day smoker tobacco type: e-cigarettes substance use type: does not use ROS <FRANCISCO Brown - Last Filed: 09/10/24 16:47> ROS ED Constitutional Constitutional ED: Reports chills and fever(s) Cardiovascular Cardiovascular: Denies chest pain Respiratory/Chest Respiratory/Chest: Denies dyspnea Gastrointestinal Gastrointestinal: Reports abdominal pain and nausea; Denies constipation, diarrhea or vomiting Genitourinary Genitourinary ED: Reports urinary frequency; Denies dysuria or hematuria Musculoskeletal Musculoskeletal: Reports back pain Integumentary Denies rash Neurologic Neurologic: Denies weakness EXAM <FRANCISCO Brown - Last Filed: 09/10/24 16:47> Physical Exam Const Vital Signs: 09/10/24 14:11 09/10/24 14:11 09/10/24 15:13 Temperature 102.8 F H 99.7 F H Temperature Source Oral Oral Pulse Rate 107 H 83 Respiratory Rate 18 13 Respiratory Effort Normal Non-Labored Respiratory Pattern Normal Blood Pressure 108/72 108/63 Blood Pressure Mean 84 78 Pulse Ox 97 100 Oxygen Delivery Method Room Air Room Air 09/10/24 15:56 09/10/24 15:56 Temperature 99.5 F H Temperature Source Oral Pulse Rate 74 Respiratory Rate 18 Respiratory Effort Respiratory Pattern Blood Pressure 106/61 106/61 Blood Pressure Mean 76 76 Pulse Ox 94 Oxygen Delivery Method Room Air Positive well nourished, well developed and no apparent distress General Appearance ED: well developed HEENT Reports normocephalic and head/scalp atraumatic Mouth ED: Yes moist mucous membranes normal Eyes PERRL and EOMs intact bilaterally Neck full ROM and supple Chest Wall inspection of chest normal Resp normal respiratory effort and clear to auscultation bilaterally Cardio regular rate and regular rhythm GI non-distended and no masses GI Narrative: Tenderness across the lower abdomen/pelvis with guarding, slight skin reaction from the surgical glue surrounding her laparoscopic incisions, no warmth, purulence, or fluctuance Back/Spine normal ROM and normal to inspection Extremity normal to inspection and full ROM Neuro oriented x3, CN's II-XII intact bilaterally, moves all extremities, no focal motor deficits and no sensory deficits noted Sensorium / Orientation: awake and alert Psych mental status grossly normal and thought process normal Skin no rashes or lesions noted and no wounds <Dr. Osbaldo Manjarrez MD - Last Filed: 09/10/24 16:59> Physical Exam Const Vital Signs: 09/10/24 14:11 09/10/24 14:11 09/10/24 15:13 Temperature 102.8 F H 99.7 F H Temperature Source Oral Oral Pulse Rate 107 H 83 Respiratory Rate 18 13 Respiratory Effort Normal Non-Labored Respiratory Pattern Normal Blood Pressure 108/72 108/63 Blood Pressure Mean 84 78 Pulse Ox 97 100 Oxygen Delivery Method Room Air Room Air 09/10/24 15:56 09/10/24 15:56 Temperature 99.5 F H Temperature Source Oral Pulse Rate 74 Respiratory Rate 18 Respiratory Effort Respiratory Pattern Blood Pressure 106/61 106/61 Blood Pressure Mean 76 76 Pulse Ox 94 Oxygen Delivery Method Room Air MDM <FRANCISCO Brown - Last Filed: 09/10/24 16:47> [facility] Narrative Medical decision making narrative: Patient presents today with pain across her pelvis that radiates to her low back as well as fevers and chills she has had over the past 2 days. She is febrile and slightly tachycardic here. She will be given Tylenol and labs will be obtained. She did recently have a hysterectomy performed by Dr. Norton on 09/01/2024. CBC, BMP, lactic acid are largely unremarkable. CT scan of the abdomen and pelvis was obtained given her pelvic tenderness and guarding on exam, this reveals a left pelvic abscess with extensive inflammatory changes. BIOMASS TECHNICIAN was consulted, spoke with Dr. Henderson who recommends admission to the hospital, she was started on IV Zosyn. She recommended admission to medicine, we spoke with Dr. Turcios and patient admitted in stable condition. She was given additional IV fluids and analgesia. I have personally performed a face to face assessment of the patient and have reviewed the AVE Note. I performed a substantive portion of the visit including all aspects of the following. My mcdowell findings include: History is remarkable for laparoscopic vaginal hysterectomy formed by Dr. Beulah Norton on September 01, 2024. Preoperative diagnosis was AUB, fibroids, dysmenorrhea, adenomyosis, arcuate uterus. Postoperative diagnosis was same. She was seen by Dr. Norton yesterday. She was told the vaginal cuff is intact. There is no abnormality noted. Patient presents because of fever and chills since last evening. She complains of abdominal pain. Movement does increase her pain. She also has frequency without dysuria or hematuria. She denies vaginal bleeding or discharge. She denies flank pain. She denies respiratory symptoms. Exam is remarkable for temperature of 102.8 with a heart rate of 107. She appears uncomfortable. Abdomen is remarkable for involuntary guarding and peritoneal findings. Concerned that patient has more than just a urinary tract infection that she complains of frequency. She is tachycardic. There is no heart murmur. Medical Decision Making differential diagnosis is pelvic phlegmon, abscess, atypical presentation for cystitis versus colonic pathology. She has no history of Crohn's or ulcerative colitis nor is her history suggestive of either. To evaluate patient's presentation we will obtain CT of the abdomen pelvis with IV contrast and appropriate blood work to assess for endorgan dysfunction. Other additions or changes: [None] Lab Data Labs: Laboratory Results - last 24 hr 09/10/24 15:08 WBC 8.8 RBC 4.18 L Hgb 11.8 L Hct 35.0 L MCV 83.7 MCH 28.2 MCHC 33.7 RDW Std Deviation 42.0 RDW Coeff of Gee 13.6 Plt Count 239 MPV 9.6 Immature Gran % (Auto) 0.700 Neut % (Auto) 83.4 H Lymph % (Auto) 6.5 L Douglas % (Auto) 8.7 Eos % (Auto) 0.5 Baso % (Auto) 0.2 Absolute Neuts (auto) 7.4 Absolute Lymphs (auto) 0.57 L Nucleated RBC % 0 Sodium 135 Potassium 4.1 Chloride 101 Carbon Dioxide 25.8 Anion Gap 9 BUN 9 Creatinine 0.60 L Estim Creat Clear Calc 136.34 Est GFR (MDRD) Non-Af 114 BUN/Creatinine Ratio 15.6 Glucose 112 H Lactic Acid < 1.0 Calcium 8.4 Radiography Diagnostic Testing: Clinical Impression(s) from Imaging Studies Abdomen/Pelvis CT 09/10/24 14:28 IMPRESSION: 1. Status post hysterectomy. Left pelvic abscess with extensive surrounding inflammatory changes. 2. Mildly thickened mid sigmoid colon, likely secondary inflammation versus focal colitis. Reading Location: [id number] <Dr. Osbaldo Manjarrez MD - Last Filed: 09/10/24 16:59> [facility] MDM Narrative Medical decision making narrative: I have personally performed a face to face assessment of the patient and have reviewed the AVE Note. I performed a substantive portion of the visit including all aspects of the following. My mcdowell findings include: History is remarkable for laparoscopic vaginal hysterectomy formed by Dr. Beulah Norton on September 01, 2024. Preoperative diagnosis was AUB, fibroids, dysmenorrhea, adenomyosis, arcuate uterus. Postoperative diagnosis was same. She was seen by Dr. Norton yesterday. She was told the vaginal cuff is intact. There is no abnormality noted. Patient presents because of fever and chills since last evening. She complains of abdominal pain. Movement does increase her pain. She also has frequency without dysuria or hematuria. She denies vaginal bleeding or discharge. She denies flank pain. She denies respiratory symptoms. Exam is remarkable for temperature of 102.8 with a heart rate of 107. She appears uncomfortable. Abdomen is remarkable for involuntary guarding and peritoneal findings. Concerned that patient has more than just a urinary tract infection that she complains of frequency. She is tachycardic. There is no heart murmur. Medical Decision Making differential diagnosis is pelvic phlegmon, abscess, atypical presentation for cystitis versus colonic pathology. She has no history of Crohn's or ulcerative colitis nor is her history suggestive of either. To evaluate patient's presentation we will obtain CT of the abdomen pelvis with IV contrast and appropriate blood work to assess for endorgan dysfunction. Other additions or changes: [None] History & Record Review Additional record(s) reviewed:: Prior outpatient record (Operative note and discharge surgical packet from September 01.) and Prior labs Lab Data Attestation: I reviewed the patient's lab results. Lab results narrative: CBC reveals a shift. Basic metabolic panel is unremarkable. Lactate is less than 1. Labs: Laboratory Results - last 24 hr 09/10/24 15:08 WBC 8.8 RBC 4.18 L Hgb 11.8 L Hct 35.0 L MCV 83.7 MCH 28.2 MCHC 33.7 RDW Std Deviation 42.0 RDW Coeff of Gee 13.6 Plt Count 239 MPV 9.6 Immature Gran % (Auto) 0.700 Neut % (Auto) 83.4 H Lymph % (Auto) 6.5 L Douglas % (Auto) 8.7 Eos % (Auto) 0.5 Baso % (Auto) 0.2 Absolute Neuts (auto) 7.4 Absolute Lymphs (auto) 0.57 L Nucleated RBC % 0 Sodium 135 Potassium 4.1 Chloride 101 Carbon Dioxide 25.8 Anion Gap 9 BUN 9 Creatinine 0.60 L Estim Creat Clear Calc 136.34 Est GFR (MDRD) Non-Af 114 BUN/Creatinine Ratio 15.6 Glucose 112 H Lactic Acid < 1.0 Calcium 8.4 Radiography Diagnostic Testing: Clinical Impression(s) from Imaging Studies Abdomen/Pelvis CT 09/10/24 14:28 IMPRESSION: 1. Status post hysterectomy. Left pelvic abscess with extensive surrounding inflammatory changes. 2. Mildly thickened mid sigmoid colon, likely secondary inflammation versus focal colitis. Reading Location: [id number] Management Discussion w/another healthcare provider: Hospitalist (Spoke with Dr. Carlos Turcios. Full admission MedSurg.) and Branch Employment Coordinator (Spoke with Dr. Henderson who is on-call for Dr. Norton. She agrees patient needs admitted. She asked for patient be admitted to medical service.) Discharge Plan Dx/Rx/DC Orders Clinical Impression: Postoperative abscess of pelvis in female, Peritonitis (acute) generalized, Sinus tachycardia, Fever and chills Disposition Disposition: Acute Care Hospital [facility]
--- OUTSIDE RECORDS SUMMARY | 2024-09-10 14:41 | XMS RPT_ITS | CCD ---
Author Organization [facility] Care Team Providers Care Primer And Powder Canning Leader Name Role Phone Aydinitmessi BURN OUT TENDER LACE-WOODS MANAGER, Sri Unavailable [phone] Maira Escamilla MD Primary Care Provider Maira Escamilla MD Primary Care Provider Maira Escamilla MD Primary Care Provider Maira Escamilla MD Primary Care Provider Maira Escamilla MD Primary Care Provider MAIRA ESCAMILLA MD Primary Care Physician MARCELLA OSHEA, DR SHARON Velazco Attending MAIRA Jessica MD Primary Care Unavailable Haagen BURN OUT TENDER LACE.FATEMEH Viviana Unavailable Suppan BURN OUT TENDER LACE.WOODS MANAGER Anna A Unavailable Suppan BURN OUT TENDER LACE.FATEMEH, Anna A Unavailable Suppan BURN OUT TENDER LACE.FATEMEH, Anna A Unavailable Dr. Maira Escamilla MD Primary Care Provider Dr. Maira Escamilla MD Referring Provider Magdalena Roman Attending Provider Carlos Dockery MD Emergency Provider [phone] BONNY HENRY Attending Unavailable MAIRA ESCAMILLA Primary Care Unavailable JAE STERLING Attending Unavailable MAIRA ESCAMILLA Primary Care Unavailable Dr. Maira Escamilla MD Primary Care Provider Carlos Dockery MD Attending Provider [phone] Beulah Attending Provider Dr. Beulah Campa MD Referring Provider [phone] FRANCINE, MAIRA J Primary Care Unavailable FRANCINE, MAIRA J Referring Unavailable FRANCINE, MAIRA J Primary Care Unavailable FRANCINE, MAIRA J Referring Unavailable PREETHI SKINNER Attending Unavailable FRANCINE, MAIRA J Attending Unavailable FRANCINE, MAIRA J Primary Care Unavailable FRANCINE, MAIRA J Primary Care Unavailable BONNY HENRY Attending Unavailable FRANCINE, MAIRA J Attending Unavailable FRANCINE, MAIRA J Primary Care Unavailable FRANCINE, MAIRA J Primary Care Unavailable JAE STERLING Attending Unavailable JAE STERLING Admitting Unavailable FRANCINE, MAIRA Bolton Primary Care Unavailable ANNA NINO Attending Unavailable FRANCINE, MAIRA J Primary Care Unavailable BONNY HENRY Attending Unavailable FRANCINE, MAIRA J Primary Care Unavailable ELAINE, BONNY Attending Unavailable FRANCINE, MAIRA J Primary Care Unavailable ROSEANN ARMSTRONG Attending Unavailable FRANCINE, MAIRA J Primary Care Unavailable BEULAH CAMPA Attending Unavailable FRANCINE, MAIRA J Primary Care Unavailable FRANCINE, MAIRA J Primary Care Unavailable ELAINE, BONNY Attending Unavailable FRANCINE, MAIRA J Primary Care Unavailable BEULAH CAMPA Attending Unavailable LYNN, MAKEDA Attending Unavailable BEULAH CAMPA Referring Unavailable FRANCINE, MAIRA Bolton Primary Care Unavailable BEULAH CAMPA Attending Unavailable FRANCINE, MAIRA Bolton Primary Care Unavailable LYNN, MAKEDA Referring Unavailable LYNN, MAKEDA Attending Unavailable FRANCINE, MAIRA J Primary Care Unavailable LYNN, MAKEDA Referring Unavailable FRANCINE, MAIRA J Primary Care Unavailable MARY MOURA Referring Unavailable FRANCINE, MAIRA J Primary Care Unavailable FRANCINE, MAIRA J Primary Care Unavailable LYNN, MAKEDA Referring Unavailable FRANCINE, MAIRA J Primary Care Unavailable FRANCINE, MAIRA J Primary Care Unavailable BONNY HENRY Attending Unavailable FRANCINE, MAIRA J Primary Care Unavailable ALISON JULES Referring Unavailable ELAINEBONNY BERRY Attending Unavailable LYNN, MAKEDA Attending Unavailable FRANCINE, MARIA J Primary Care Unavailable LYNN, MAKEDA Referring Unavailable FRANCINE, MAIRA J Primary Care Unavailable BONNY HENRY Attending Unavailable FRANCINE, MAIRA J Primary Care Unavailable FRANCINE, MAIRA J Primary Care Unavailable ALISON JULES Attending Unavailable FRANCINE, MAIRA J Primary Care Unavailable JAE STERLING Referring Unavailable FRANCINE, MAIRA J Primary Care Unavailable JAE STERLING Attending Unavailable [place], Maira Primary Care Unavailable Magdalena Ram Attending Unavailable Francine, Maira Referring Unavailable Beulah Campa Referring Unavailable Beulah Campa Attending Unavailable Francine, Maira Primary Care Unavailable Carlos Dockery Attending Unavailable [place], Maira Primary Care Unavailable Carlos Dockery Attending Unavailable [place], Maira Primary Care Unavailable Jamison Hernández Referring Unavailable Jamison Hernández Attending Unavailable [place], Maira Primary Care Unavailable [place], Maira Primary Care Unavailable Anthony Lau Referring Unavailable Anthony Lau Attending Unavailable Allergies Allergy Classification Reported Allergen(s) Allergy Type Date of Onset Reaction(s) Facility (1 source) gabapentin Drug Allergy 02-16-19 13 [facility] Work Phone: (20 sources) predniSONE; Translations: [prednisone] Drug Allergy 04-18-19 16 Mental Status Change [facility] Work Phone: (1 source) Seasonal allergy; Translations: [SEASONAL] allergy to substance 02-16-19 13 [facility] Work Phone: (1 source) topiramate Drug Allergy 09-23-19 20 [facility] Work Phone: (20 sources) gabapentin; Translations: [gabapentin] Drug Allergy 04-14-19 15 Other: See Comments [facility] (20 sources) topiramate; Translations: [topiramate] Drug Allergy 12-13-19 17 Other: See Comments [facility] Work Phone: (20 sources) environmental [Other] Propensity to adverse reactions 06-27-19 06 Intolerance [facility] Work Phone: (20 sources) Tree and shrub pollen; Translations: [TREE AND SHRUB POLLEN] Propensity to adverse reactions to drug 07-22-19 24 Other: See Comments [facility] (20 sources) Escitalopram; Translations: [ESCITALOPRAM] Drug Allergy 02-21-19 25 Mental Status Change [facility] (19 sources) L1 protein, Human papillomavirus type 11 [...] Vaccine; Translations: [HUMAN PAPILLOMAV VAC,9-ELDA(PF)] Drug Allergy 07-20-19 Rash, Itching, Other: See Comments [facility] (1 source) L1 protein, Human papillomavirus type 11 Vaccine Drug Allergy 09-02-19 Swelling [facility] Comment on above: AT INJECTION SITE (1 source) gabapentin Drug Allergy 09-02-19 [facility]ository (1 source) predniSONE Drug Allergy 09-02-19 [facility] (1 source) topiramate Drug Allergy 09-02-19 [facility] (1 source) human papillomavirus vaccine, quadr Drug allergy (disorder) 09-02-19 [facility] Repository Medications Current Medications Medication Drug Class(es) Dates Sig (Normalized) Sig (Original) acetaminophen 500 mg oral tablet (8 sources) Start: 09-01-2024 take 2 tablets by mouth every six hours as needed for pain and fever acetaminophen (TYLENOL) 500 mg tablet TAKE 2 TABLETS BY MOUTH EVERY 6 HOURS NEEDED FOR PAIN AND FEVER 09/01/2024 Active Start: 03-14-2024 End: 03-29-2024 take 2 tablets [...] 03/29/2024 Active ALPRAZolam 0.5 mg oral tablet (4 sources) Benzodiazepine Start: 03-08-2024 ALPRAZolam (XANAX) 0.5 mg tablet 0.5 mg. 03/08/2024 Active amoxicillin 500 mg oral capsule (1 source) Penicillin-class Antibacterial Start: 02-22-2022 End: 03-04-2022 take 1 capsule by mouth twice daily amoxicillin (POLYMOX, AMOXIL) 500 mg capsule Take 1 capsule by mouth twice daily for 10 days. 20 capsule 0 02/22/2022 03/04/2022 Active Comment on above: Take 1 capsule by [facility] twice daily for 10 days. amoxicillin 500 mg / clavulanate 125 mg oral tablet (1 source) Penicillin-class Antibacterial Start: 06-03-2024 End: 06-13-2024 take 1 tablet by mouth three times daily amoxicillin-clavu lanate potassium (AUGMENTIN) 500-125 mg per tablet Take [...] Comment on above: Take 1 capsule by [facility] twice daily. cholecalciferol 0.05 mg oral tablet (3 sources) Vitamin D Start: 08-20-19 Cholecalciferol (Vitamin D3) (D3 Dots) 50 mcg (2,000 unit) tablet Active 50 ug PO DAILY August 20, 2023 12:00am supplement doxycycline monohydrate 100 mg oral capsule (18 sources) Tetracycline-cl ass Drug Start: 05-28-19 End: [...] Take 1 tablet by [facility] twice daily for 10 days. Take 1 capsule by [facility] every 12 hours. 0.4 ml enoxaparin sodium [...] sulfate 325 mg oral tablet (20 sources) Start: 08-25-2024 take 1 tablet by mouth once daily Ferrous Sulfate (Feosol) 325 mg (65 mg iron) tablet Active 325 mg PO DAILY August 25, 2024 12:00am gentamicin 0.001 mg/mg topical ointment (1 source) Start: 06-03-2024 End: 06-10-2024 gentamicin 0.1 % ointment Apply to affected area three times a day for 7 days. 30 g 1 06/03/2024 06/10/2024 Active hydrOXYzine hydrochloride 25 mg oral tablet (20 sources) Antihistamine Start: 09-09-2024 take 1 tablet by mouth every eight hours as needed hydrOXYzine HCl (ATARAX) 25 mg tablet Take 1 tablet by mouth three times a day as needed for itching/rash. 50 tablet 09/09/2024 Active Start: 02-22-2024 End: 05-22-2024 take 1 tablet by mouth three times daily as needed hydrOXYzine HCl (ATARAX) 25 mg tablet Indications: Anxiety with depression Take 1 tablet by mouth three times a day as needed for itching/rash. 90 tablet 2 02/22/2024 05/22/2024 Active methylPREDNISolone (5 sources) Corticosteroid Start: 2022 End: 10-05-2022 methylPREDNISolone (MEDROL, OLIVIER,) 4 mg Dose-Pack Indications: [...] above: Take by mouth. multivitamin with iron (3 sources) Start: 08-20-2023 multivitamin w ith iron [...] Nonsteroidal Anti-inflammatory Drug Start: 06-24-2021 Relafen Active 2021 2:26pm Start: 06-24-2021 End: 08-20-2023 Relafen Discontinued [...] 5 days. 10 capsule 02/28/2024 03/04/2024 Active oxyCODONE hydrochloride 5 mg oral tablet (20 sources) Opioid Agonist Start: 09-01-2024 End: 09-16-2024 take 1 tablet by mouth every eight hours as needed for pain oxyCODONE IR (ROXICODONE) 5 mg immediate release tablet Indications: Postoperative pain Take 1 tablet by mouth every 8 hours as needed for pain for up to 7 days. 20 tablet 09/09/2024 09/16/2024 Active Start: 10-02-2021 End: 01-18-2022 take 1 tablet by mouth every eight hours as needed for pain oxyCODONE IR (ROXICODONE) 5 mg immediate release tablet Indications: Postoperative pain Take 1 tablet by mouth every 8 hours as needed for pain for up to 10 doses. 10 tablet 0 10/02/2021 01/18/2022 Discontinued Comment on above: Take 1 tablet by [facility] every 8 hours as needed for pain for up to 10 doses. pregabalin 75 mg oral capsule (20 sources) [...] Discontinued Start: 09-27-2019 take 1 capsule by [facility] twice daily LYRICA 75 MG CAPS Take 1 capsule by mouth 2 times a day PREGABALIN [id number] Sri Duran BURN OUT TENDER LACE-WOODS MANAGER Comment on above: Take 1 capsule by [facility] twice daily for 30 days. Take 1 capsule by [facility] two times a day for 90 days. sennosides, jail 8.6 mg oral tablet (6 sources) Start: [...] oral tablet (20 sources) Opioid Agonist Start: 025 End: take 1 tablet by mouth twice [...] 14 December 12, 2018 12:36am triamcinolone acetonide 5 mg/ml topical cream (3 sources) Corticosteroid Start: 09-09-2024 End: 09-23-2024 triamcinolone acetonide (KENALOG) 0.5 % cream Apply to affected area three times a day for 14 days. 15 g 1 09/09/2024 09/23/2024 Active Start: 12-10-2021 End: 12-24-2021 triamcinolone (KENALOG) 0.02 5 % ointment Indications: Chapped lips Apply to [...] Virus Nucleoside Analog DNA Polymerase Inhibitor Start: End: take 1 tablet by [...] B Complex (Complex B-100) tablet extended release (3 sources) Start: 08-20-2023 Vitamin B Complex (Complex [...] / HYDROcodone bitartrate 5 mg oral tablet (16 sources) Opioid Agonist Start: 09-02-2023 End: 03-08-2024 [...] / ipratropium bromide 0.167 mg/ml inhalation solution (7 sources) Anticholinergic, beta2-Adrenergic Agonist Start: 019 End: take 1 mL by inhalation every four hours as needed for wheezing Ipratropium-Albute rol 3 ML solution for nebulization Discontinued 3 mL inhalation EVERY 4 HOURS as needed for Sob &/Or Wheezing 20 0 December 04, 2018 10:22pm August 20, 2023 1:12pm benzonatate 100 mg oral capsule (18 sources) Non-narcotic Antitussive Start: 023 End: take 1 capsule by mouth every eight [...] 24 hours. Take 1 capsule by [facility] three times daily as needed for cough. Calcium Citrate (15 sources) End: 08-28-2021 CALCIUM CITRATE ORAL Take by mouth. 0 08/28/2021 Discontinued (Course of therapy completed) CALCIUM CITRATE ORAL Take by mouth. 0 Active Comment on above: Take by mouth. cephalexin 500 mg oral capsule (4 sources) Cephalosporin Antibacterial Start: 024 End: take 1 capsule by mouth every six [...] mg by mouth. Take 1 tablet by [facility] three times daily as needed. diazePAM 10 mg oral tablet (18 sources) Benzodiazepine Start: 020 End: take 1 [...] as needed. Swish and swallow. ferrous gluconate (3 sources) Start: 08-20-2023 End: 03-08-2024 ferrous gluconate [...] as needed lidocaine 0.05 mg/mg medicated patch (4 sources) Antiarrhythmic, Amide Local Anesthetic Start: 09-02-2023 [...] on above: Take 1 capsule by [facility] once daily. multivit-min/ferrou s fumarate (MULTI VITAMIN ORAL) (15 sources) End: 08-28-2021 multivit-min/ferrou s fumarate (MULTI VITAMIN ORAL) Take by mouth. 0 08/28/2021 Discontinued (Course of therapy completed) multivit-min/victor hugo connie fumarate (MULTI VITAMIN ORAL) Take by mouth. 0 Active Comment on above: Take by mouth. naproxen 500 mg oral tablet (17 sources) Nonsteroidal Anti-inflammatory Drug Start: 4 End: [...] Take 1 tablet by [facility] twice daily for 7 days. omeprazole 40 [...] Discontinued Start: 05-08-2021 take 1 capsule by [facility] twice daily omeprazole (PRILOSEC) 40 mg capsule [...] Comment on above: Take 1 capsule by [facility] twice daily. ondansetron 4 mg oral tablet (20 sources) Serotonin-3 Receptor Antagonist Start: 2 End: take 1 tablet by mouth once [...] Q8H as needed for nausea and vomiting June 27, 2021 12:00am August 20, 2023 1:14pm Comment on above: Take 1 tablet by [facility] once daily as needed for nausea/vomiting (for nausea.) for up to 40 doses. pantoprazole 40 mg delayed release oral tablet (20 sources) Proton Pump Inhibitor Start: 2021 End: 2023 take 1 tablet by mouth once daily pantoprazole DR (PROTONIX) 40 mg tablet Take 1 tablet by mouth once daily. To be taken for 1 year after the surgery 30 tablet 11 09/25/2021 07/22/2023 Discontinued Comment on above: Take 1 tablet by [facility] once daily. To be taken for 1 [...] [facility] for Report and Appt [id number]. If no answer call [phone] Charge Nurse. If no answer call [phone] Dealership Manager Nurse Child Development Consultant. Banana bag (1000 cc's in 2 hours) [...] [facility] for Report and Appt [id number]. If no answer call [phone] Charge Nurse. If no answer call [phone] Dealership Manager Nurse Child Development Consultant. Banana bag (1000 cc's in 2 hours) [...] [facility] for Report and Appt [id number]. If no answer call [phone] Charge Nurse. If no answer call [phone] Dealership Manager Nurse Child Development Consultant. Banana bag (1000 cc's in 2 hours) [...] IV Stat. sucralfate 100 mg/ml oral suspension (6 sources) Aluminum Complex Start: 2 End: 4 [...] Date Documented Da te Episodic/Chronic Abdominal pain (8 sources) Acute abdominal pain; Translations: [Unspecified abdominal pain] Episodic Acute bronchitis (9 sources) Acute bronchitis; Translations: [Acute bronchitis, unspecified] 2022 Episodic Anxiety disorders (1 source) Mixed anxiety and depressive disorder; Translations: [Other specified anxiety disorders] 02-22-2024 Chronic Asthma (20 sources) Mild intermittent asthma; Translations: [Mild intermittent asthma, uncomplicated] Onset: 9 Resolved: 6 03-19-2018 Chronic Benign neoplasm of uterus (20 sources) Intramural leiomyoma of uterus; Translations: [Intramural leiomyoma of uterus] Onset: 5 Resolved: 5 07-21-2024 Episodic Blindness and vision defects (3 sources) Visual impairment; Translations: [Unspecified visual loss] Onset: 4 08-25-2023 Chronic Blindness and vision defects (3 sources) Eye / vision finding; Translations: [Unspecified visual disturbance] 08-29-2023 Episodic Cardiac dysrhythmias (20 sources) Supraventricular tachycardia; Translations: [Supraventricular tachycardia] Onset: 2 03-04-2021 Chronic Chronic obstructive pulmonary disease and bronchiectasis (6 sources) Bronchitis; Translations: [Bronchitis, not specified as acute or chronic] 09-30-2022 Episodic Complications of surgical procedures or medical care (3 sources) Postoperative wound infection-superficial; Translations: [Infection following [...] 6 06-01-2015 Chronic Fever of unknown origin (3 sources) Fever; Translations: [Fever, unspecified] Onset: 5 08-16-2024 Episodic Genitourinary congenital anomalies (20 sources) Uterus arcuatus; 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] Onset: 5 07-21-2024 Chronic Headache; including migraine (20 sources) Migraine; Translations: [Migraine, unspecified, not intractable, without status migrainosus] Onset: 5 02-04-2021 Chronic Headache; including migraine (7 sources) Headache; Translations: [Headache, unspecified headache type] [...] of knee] Onset: 6 12-10-2005 Chronic Lymphadenitis (11 sources) Acute mesenteric adenitis; Translations: [Nonspecific mesenteric lymphadenitis] 07-02-2021 Episodic Menstrual disorders (20 sources) Irregular periods; Translations: [Irregular menstruation, unspecified] Onset: 5 Resolved: 5 Chronic Nonmalignant breast conditions (1 source) Pain of breast; Translations: [Mastodynia] 10-30-2023 Episodic Nutritional deficiencies (3 sources) Vitamin D deficiency; Translations: [Vitamin D deficiency, unspecified] Onset: 4 09-28-2023 Chronic Osteoarthritis (20 sources) Osteoarthritis of multiple joints ; Translations: [Polyosteoarthritis, unspecified] Onset: 2 05-06-2021 Chronic Other aftercare (9 sources) Patient encounter status; Translations: [Other termite control technician (current) drug therapy] Episodic Other aftercare (4 sources) Surgical follow-up; Translations: [Encounter for surgical aftercare following surgery on the digestive system] Episodic Other aftercare (1 source) Encounter for follow-up examination after completed treatment for conditions other than malignant neoplasm; Translations: [Postop check] Onset: 5 Episodic Other ear and sense organ disorders (2 sources) Otalgia, left ear; Translations: [Otalgia, unspecified] Onset: 5 08-31-2024 Episodic Other female genital disorders (1 source) Abnormal uterine and vaginal bleeding, unspecified; Translations: [Abnormal uterine bleeding (AUB)] Onset: 5 Chronic Other female genital disorders (18 sources) Cyst of uterine adnexa; Translations: [Other [...] subsequent encounter] Episodic Other lower respiratory disease (8 sources) Cough; Translations: [Cough] 09-30-2022 Episodic Other nervous system disorders (1 source) Lesion of ulnar nerve, left upper limb; Translations: [Lesion of ulnar nerve] Chronic Other nervous system disorders (2 sources) H/O: migraine; Translations: [Personal history of other diseases of the nervous system and sense organs] 08-25-2023 Episodic Other nervous system disorders (3 sources) Tremor; Translations: [Tremor, unspecified] 06-02-2024 Episodic Other nervous system disorders (3 sources) Postoperative pain ; Translations: [Other acute postprocedural pain] 09-01-2024 Episodic Other non-traumatic joint disorders (20 sources) Disorder of joint of ankle and/or foot; Translations: [Other specific joint derangements of unspecified ankle, not elsewhere classified] Onset: 5 05-12-2014 Chronic Other non-traumatic joint disorders (20 sources) Joint derangement; Translations: [Other specific joint derangements of unspecified ankle, not elsewhere classified] Onset: 5 05-12-2014 Chronic Other non-traumatic joint disorders (7 sources) Effusion of right knee joint; Translations: [Effusion, right knee] 07-22-2018 Episodic Other nutritional; endocrine; and metabolic disorders (2 sources) Excess panniculus of abdomen; Translations: [Localized adiposity] 09-28-2023 Chronic Other nutritional; endocrine; and metabolic disorders (1 source) Localized adiposity; Translations: [Abdominal pannus] Onset: Chronic Other nutritional; endocrine; and metabolic disorders [...] and subcutaneous tissue; Translations: [Excess skin] Onset: 5 Episodic Other upper respiratory disease (20 sources) Seasonal allergy; Translations: [Other seasonal allergic rhinitis] Onset: 5 10-09-2014 Chronic Other upper respiratory infections (18 sources) Acute upper respiratory infection; Translations: [Acute upper respiratory infection, unspecified] Episodic Residual codes; unclassified (2 sources) Influenza-like symptoms; Translations: [Other general symptoms and signs] 06-15-2017 Episodic Residual codes; unclassified (1 source) Did not attend; Translations: [No-show for appointment] Episodic Residual codes; unclassified (7 sources) Viral syndrome; Translations: [Other general symptoms [...] 03-24-2024 Episodic Residual codes; unclassified (2 sources) Generalized aches and pains; Translations: [Pain, unspecified] 08-16-2024 Episodic Spondylosis; intervertebral disc disorders; other back problems (3 sources) Cervical radiculopathy; Translations: [Degeneration of cervical intervertebral disc] Onset: 0 09-27-2019 Chronic Spondylosis; intervertebral disc disorders; other back problems (20 sources) Cervical radiculopathy; Translations: [Radiculopathy, cervical region] Onset: 0 2019 Episodic Superficial injury; contusion (1 source) Abrasion of face; Translations: [Abrasion of other part of head, subsequent encounter] Episodic Unclassified (1 source) M54.12 - Radiculopathy, cervical region Unclassified (2 sources) Patient encounter status 07-12-2024 Unclassified (1 source) Menstrual Problem Onset: 5 Unclassified (1 source) Adenomyosis of uterus; Translations: [Adenomyosis of uterus] Onset: 5 Viral infection (10 sources) Recurrent herpes simplex labialis; Translations: [Herpesviral [...] [Palpitations] Onset: 2 Resolved: 5 03-04-2021 Episodic Endometriosis (20 sources) Uterine adenomyosis; Translations: [Adenomyosis of uterus] Onset: 5 Resolved: 5 07-21-2024 Chronic Nonspecific chest pain (20 sources) Chest pain; [...] Onset: 5 Resolved: 5 02-04-2021 Episodic Other female genital disorders (15 sources) Abnormal uterine bleeding; Translations: [Abnormal uterine and vaginal bleeding, unspecified] Onset: 5 Resolved: 5 08-04-2024 Chronic Other gastrointestinal disorders (20 sources) History of gastroesophageal reflux disease; Translations: [Personal history of other diseases of the digestive system] Onset: 2 Resolved: 5 03-28-2022 Episodic Other gastrointestinal disorders (20 sources) History [...] [Rash] Onset: 5 Episodic Residual codes; unclassified (2 sources) Other specified postprocedural states; Translations: [S/P panniculectomy] Onset: 5 Episodic Residual codes; unclassified (1 source) Disorientation, unspecified; Translations: [Confusion] Onset: 4 Episodic Sprains and strains (20 sources) Lumbar sprain; Translations: [Sprain of ligaments of lumbar spine, initial encounter] Onset: 5 Resolved: 5 01-19-2015 Episodic Syncope (10 sources) Near syncope; Translations: [Syncope and collapse] Onset: 4 12-16-2019 Episodic Unclassified (1 source) Problem Results Test Name Value Interpretation Reference Range Facility [facility] 09-09-2024 CNOV Office Visit (OBGYWM ) -- RAUL CHONG ([id number]) 1980 F Date Time Provider Department 09/09/24 10:10 AM BEULAH CAMPA OBGYWM During your visit today, we recorded the following information about you: Blood pressure Weight 106/58 83.5 kg Beulah Campa MD 09/09/2024 12:23 PM Signed DATE OF SERVICE: 09/09/2024 PROBLEM: Raul Chong presents for postop visit. SURGERY AND DATE: [facility] with bilateral salpingectomy 09/01/24 PATHOLOGY: benign, fibroid, adenomyoma SUBJECTIVE/INTERVAL HISTORY: Raul Chong feels ok surgery velez but very itchy around incisions, taking benadryl. Pain in vagina and pain when has BM or urinate, worse w/ BM. No fever or chills. No shortness of breath, cough, or chest pain. States having BM. Patient reports that her appetite is fair. Taking tyloenol q 6 and oxycodone q 8 hrs or so. SENSITIVE EXAM: The sensitive examination was discussed with the Patient or Patient's Authorized Sweat Box Attendant. As applicable, any other physician, advance practice provider, medical student, or other health professional student that will be observing or involved in the sensitive examination for educational or training purposes was discussed with the Patient or Authorized Sweat Box Attendant. The Patient or Authorized Sweat Box Attendant has agreed to proceed with the sensitive examination. (Sensitive examination includes inspection and/or palpation of the breasts, pelvis, prostate and anorectal regions). OBJECTIVE: . ABDOMEN: Abdomen soft, non-tender, no hepatosplenomegaly. Incisions healing but erythema w/o induration or edema or purulence around each incision, c/w allergic reaction PELVIC: External genitalia normal. Vagina normal on speculum exam. Uterus, cervix, adnexa surgically absent. Some pink clear vaginal discharge, sutures intact intact, no masses or fullness, minimal tenderness ASSESSMENT: postop PLAN: 1. Discussed results of pathology and implications with patient. Refill on oxycodone due to patient's inability to take NSAIDs and continues to have pain. Discussed with he continue acetaminophen. Call for fevers or other concerns. Will give hydroxyzine and local steroid cream for allergic reactions around where the patient had skin glue. Patient is comfortable with this plan. Call for fevers or other concerns. Reassured that rectal pressure and vaginal pain with bowel movements is likely from inflammation, on exam today there is no abnormalities noted, no evidence of hematoma or other vaginal or cuff issue. 2. Postop restrictions reviewed. Beulah Campa MD Allergies As of Date: 09/09/2024 Noted Allergy Reaction GABAPENTIN 04/13/2014 14 - [...] Other: See Comments Comments: anxiety Date Reviewed: 09/09/2024 Reviewed by: Beulah Campa MD - Fully Assessed Primary Visit Diagnosis:Postop check [Z09] Other Visit Diagnosis:Postoperative pain [G89.18] Order(s):triamcinolone acetonide (KENALOG) 0.5 % creamApply to affected area three times a day for 14 days.Disp: 15 gRfl: 1 hydrOXYzine HCl (ATARAX) 25 mg tabletTake 1 tablet by mouth three times a day as needed for itching/rash.Disp: 50 tabletRfl: 0 oxyCODONE IR (ROXICODONE) 5 mg immediate release tabletTake 1 tablet by mouth every 8 hours as needed for pain for up to 7 days.Disp: 20 tabletRfl: 0 Prescriptions as of 09/09/2024 - acetaminophen (TYLENOL) 500 mg tablet TAKE 2 TABLETS BY MOUTH EVERY 6 HOURS NEEDED FOR PAIN AND FEVER - ALPRAZolam (XANAX) 0.5 mg tablet 0.5 mg. - triamcinolone acetonide (KENALOG) 0.5 % cream Apply to affected area three times a day for 14 days. - hydrOXYzine HCl (ATARAX) 25 mg tablet Take 1 tablet by mouth three times a day as needed for itching/rash. - oxyCODONE IR (ROXICODONE) 5 mg immediate release tablet Take 1 tablet by mouth every 8 hours as needed for pain for up to 7 days. - pregabalin (LYRICA) 75 mg capsule [...] 1 tablet (100 mg) by mouth as neede (more content not included)... Normal [facility]07[facility]20[facility] -- RAUL CHONG ([id number]) 1980 F Date Time Provider Department 09/07/24 BEULAH CAMPA OBALFREDAWJustin During your visit today, we recorded the following information about you: Ayaan Swift RN 09/07/2024 12:20 PM Signed Patient calling with update again on her abdominal incision sites for TLH/salpingectomy. She did get the glue off as advised in 09/05/24 phone encounter. She feels though that the itchiness and red rash/welts have worsened still around all 4 sites.She previously sent pictures on 09/05 too before glue was removed. Asking what else she can try to help. Stated she does have silvadene cream is that's an option. Her post op appt is scheduled for 09/09/24. GEORGINA Espinal Rebecca L, MD 09/07/2024 12:36 PM Signed Can use the cream if she wants. Can use silvadine cream if prefers but not necessary. Can use antihistamine like benadryl or zyrtec for itching. Can use a little hydrocortisone around but not directly on incisions. The pictures are not concerning for infection from what I see. Some inflammation and redness from the healing is common. I can see her this afternoon if she is concerned to take a look at them. MD Kavin Garcia Trisha, RN 09/07/2024 1:53 PM Signed Patient notified. Declined visit for today as of now. Will try antihistamine and hydrocortisone first and call back if appt is needed. Ayaan Swift RN Allergies As of Date: 09/07/2024 Noted Allergy Reaction GABAPENTIN 04/13/2014 14 - [...] Other: See Comments Comments: anxiety Date Reviewed: 08/31/2024 Reviewed by: Latanya Jimenez MA - Fully Assessed Reason for Visit: Post Op [174] Prescriptions as of 09/07/2024 - pregabalin (LYRICA) 75 mg capsule Take [...] by mouth. Problem List As Of Date 09/07/2024 Noted Resolved Unspecified asthma(493.90) [J45.909] 06/01/2015 Pain [...] fibroid [D25.1] 07/21/2024 Arcuate uterus [Q51.810] 07/21/2024 Dysmenorrhea [N94.6] 08/01/2024 Menorrhagia with regular cycle [N92.0] 08/01/2024 Abnormal uterine bleeding (AUB) [N93.9] 08/24/2024 Encounter Status:Closed by AYAAN SWIFT on 09/07/24 [facility] Michael 09-05-2024 CNPN Telephone (OBGYWM) -- RAUL CHONG ([id number]) 1980 F Date Time Provider Department 7/28/25 ERROL BEULAHLORIE DOMÍNGUEZ During your visit today, we recorded the following information about you: Concha Akers RN 09/05/2024 8:29 AM Signed Patient underwent total laparoscopic hysterectomy with bilateral salpingectomy at [facility] on 09/01/2024. Pt calls stating she has 4 laparoscopic sites and she is pretty certain she is allergic to the glue as she has a red, bumpy/welted rash on every one. States the one on the crease of her leg-the glue has come off so she does have the rash, but not as itchy as the others. Pt denies fever. States also fighting gas in abdomen that travels to her shoulder. Has had BM-does not feel constipated. Didn't take any oxy yesterday at all, then states she overdid it activity velez and has taken 1 dose this morning. Informed Pt that this is common, AND advised Pt to stay hydrated, walk around as much as she can tolerate, AND chew gum as it will help with gut motility and if she is feeling constipated to increase fiber in diet and take a stool softener as needed. Pt voiced understanding. Pt will send photos on Infoharmoni of her incisions/rash. Please advise. GEORGINA Chowdhury Tara, RN 09/05/2024 8:31 AM Signed Pt's mychart pictures were sent-see Mark[employer] message from 09/05/24. GEORGINA Chowdhury Jennifer, MD 09/05/2024 8:39 AM Signed Probably is a reaction to the glue. Baby oil or vasaline will help remove the glue. Ice to the incisions will help the itching Allergies As of Date: 09/05/2024 Noted Allergy Reaction GABAPENTIN 04/13/2014 14 - [...] Other: See Comments Comments: anxiety Date Reviewed: 08/31/2024 Reviewed by: Latanya Jimenez MA - Fully Assessed Reason for Visit: Hysterectomy 09/01/24-Rash/itching on incision areas [Other] Prescriptions as of 09/05/2024 - pregabalin (LYRICA) 75 mg capsule Take [...] by mouth. Problem List As Of Date 09/05/2024 Noted Resolved Unspecified asthma(493.90) [J45.909] 06/01/2015 Pain [...] fibroid [D25.1] 07/21/2024 Arcuate uterus [Q51.810] 07/21/2024 Dysmenorrhea [N94.6] 08/01/2024 Menorrhagia with regular cycle [N92.0] 08/01/2024 Abnormal uterine bleeding (AUB) [N93.9] 08/24/2024 En (more content not included)... Normal [facility] Bedside Glucoseon 09-01-2024 FINGERSTICK GLU 82 mg/dL Normal 74-106 [facility] Comment on above: Result Comment: BG MCKAY OF PATIENT CARE PER NURSING PROTOCOL Performed By: #### L 501.080 ####[facility] [id number] [place], [address] CNOPon 09-01-2024 CNOP Operative Note (Enc) (OBGYWM) -- Encounter Status:Closed by BEULAH CAMPA on 09/01/24 [facility] Discharge Instructionon 08-10 Discharge Instruction [facility] Medical Records Department [address] [place] [address] Instructions for Home/Discharge Instructions 09/01/24 0749 MR#: [id number] Acct: [id number] Name: RAUL CHONG DIANNA Rep #: [id number] : 1980 43 From: Beulah Campa MD PCP: Dr. Maira Escamilla MD Status:REG [facility] Discharge Instructions DC O2, CPAP, BIPAP needs Home O2 Discharge instructions: No Dressing / Incision Discharge Activity: May Drive (in 3-5 days when not on pain medication) and - (No submergine in water for 6 weeks. ) May shower in (days): 1 May resume sexual activity in: 6-8 weeks and - (Nothing in your vagina for 6 weeks. No vaginal or anal intercourse for 6-8 weeks) Lifting Restrictions: 15 lbs x 6 weeks Dressing / Incision Call your doctor if your incision/area has: Continuous Slow Oozing, Sudden Increased Bleeding, Increased Pain/ Swelling and Foul Smelling Discharge Call your doctor if you observe: Fever of 101 or Higher Cleanse incision/area with: Soap Water and - (Your incisions have skin glue, it can get wet, leave the glue on until it falls off. ) Follow Up Care Please Follow Up With: Beulah Campa MD When: With my office in 1-2 and 6 weeks or as needed. [phone] call or send a [employer] message as needed Test Results: Test results from this visit will be discussed in further detail at your follow-up appointment, if applicable. Discharge Plan Admission Primary Reason for Your Visit: Hysterectomy Attending Provider: Beulah Campa Primary Care Provider: Maira Escamilla Instructions Print Language: Lebanese Discharge Orders/Prescriptions Prescriptions: New acetaminophen [Acetaminophen Extra Strength] 500 mg tablet 1,000 mg PO Q6H PRN (Reason: fever or pain) 30 Days Qty: 90 1RF oxycodone 5 mg tablet 5 mg PO Q8H PRN (Reason: severe pain) 7 Days Qty: 20 0RF Continued sertraline 50 mg tablet 50 mg PO DAILY alprazolam [Xanax] 0.5 mg tablet 0.5 mg PO QDAY PRN (Reason: anxiety) albuterol sulfate 2.5 MG/3 ML solution for nebulization 2.5 mg inhalation Q4HWA.RT PRN (Reason: Sob /Or Wheezing) Patient Comments: only when pt has [...] (2,000 unit) tablet 50 mcg PO DAILY ferrous sulfate [Feosol] 325 mg (65 mg iron) tablet 325 mg PO DAILY Referrals / Follow Up: Maira Escamilla MD [Primary Care Provider] - Disposition Disposition (needs filled in before D/C Order can be placed): Home, Self Care 09/01/24 0750 Beulah Campa MD CC: Dr. Maira Escamilla MD Signed Normal [facility] deOrdered By: Beulah Campa on 09-01-2024 Glucose [Mass/Vol] 82 mg/dL 74-106 [facility] Comment on above: MANAGEMENT OF PATIEN T CARE PER NURSING PROTOCOL MR/POSTOP.ANEon 09-01-2024 MR/POSTOP.[facility] Medical Records Department [address] [place] [address] Anesthesia Postop Eval I 09/01/24 0954 MR#: [id number] Acct: [id number] Name: RAUL CHONG Rep #: [id number] : 1980 43 From: Karen Aguilar CRNA PCP: Dr. Maira Escamilla MD Status:REG SDC Y Race: C Location: [place] [address] Anesthesia: Postop Eval I Current Vital Signs Temperature: 97.2 F Pulse Rate: 71 Blood Pressure: 112/65 Respiratory Rate: 16 Pulse Ox: 99 Oxygen Delivery Method: Room Air Assessment Airway patent: Yes Spontaneous unlabored respirations: Yes Mental status: Awake nausea: No Vomiting: No Anesthesia Complication: No Fluid Hydration Crystalloid volume administer (ml): 1,000 Total IV fluid infused: 1,000 Progress Note Anesthesia document: Postop Eval 1 completed: Yes 09/01/24955 Date Karen Aguilar INSIGHTS STRATEGIST Cosigner Signature: Date CC: Signed Normal [facility] MR/[id number] 09-01-2024 [facility] Medical Records Department [address] [place] [address] Anesthesia Postop Eval II 09/01/24 1155 MR#: [id number] Acct: [id number] Name: RAUL CHONG DIANNA Rep #: [id number] : 1980 43 From: Max Mccollum MD PCP: Dr. Maira Escamilla MD Status:REG [facility] Y Race: C Location: [place] [address] Anesthesia Postop Eval I Sum Postop Eval Completion status Anesthesia document: Postop Eval 1 completed: Yes Anesthesia Postop Eval I Summary Anesthesia Postop Eval I Summary: Anesthesia Postop Eval I: Assessment Summary Airway patent Yes 09/01/24 09:56 INSIGHTS STRATEGIST.SJFARSHAD Spontaneous unlabored Yes 09/01/24 09:56 INSIGHTS STRATEGIST.SJFARSHAD respirations Mental status Awake 09/01/24 09:56 INSIGHTS STRATEGIST.SJAN nausea No 09/01/24 09:56 INSIGHTS STRATEGIST.SJAN Vomiting No 09/01/24 09:56 INSIGHTS STRATEGIST.SJAN Anesthesia Postop Eval I: Fluid Summary Crystalloid volume administer 1,000 09/01/24 09:56 INSIGHTS STRATEGISTCELI (ml) Colloids volume administered ( ml) Blood Product volume administered (ml) Total IV fluid infused 1,000 09/01/24 09:56 INSIGHTS STRATEGISTCELI Anesthesia Postop Eval I: Summary Notes Anesthesia Complication No 09/01/24 09:56 INSIGHTS STRATEGISTCELI Anesthesia Complication Comment: Post-operative progress note Anesthesia: Postop Eval II Evaluation Mental status: Awake and Calm Pain Level: 1 nausea: No Vomiting: No Complications Anesthesia Complication: No 09/01/24 1156 Date Estelleyisoto Mccollum MD Cosigner Signature: Date CC: Signed Normal [facility] Operative Reporton 5 Operative Report [facility] Medical Records Department [address] [place] [address] Operative Report 09/01/24 0938 MR#: [id number] Acct: [id number] Name: RAUL CHONG DIANNA Rep #: [id number] : 1980 43 From: Beulah Campa MD PCP: Dr. Maira Escamilla MD Status:REG [facility] Location: [place] [address] Problems Associated Problem List Diagnoses (1) Postoperative pain: (2) Arcuate uterus: (3) Intramural uterine fibroid: (4) Adenomyosis: (5) Abnormal uterine bleeding (AUB): (6) Dysmenorrhea: Operative Report (Standard) Operative Information Date of Procedure: 09/01/24 Pre-Operative Diagnosis: aub, fibroids, dysmenorrhea, adenomyosis, arcuate uterus Post-Operative Diagnosis: same Surgery/Procedure Performed: TLH, bilateral salpingectomy and cysto alliance manager: Yes Drainage Design Coordinator: Kostohryz,Jose A Tasks completed by first coat sander: Closing, Hemostasis: Electrocautery, Trocar and Retracting Type of Anesthesia: General RN Documented Start/Stop Times: Operation Date: 09/01/24 07:30 Case Time Into Pre-Op 09/01/24 05:38 Out of Pre-Op 09/01/24 07:30 Anesthesia Start 09/01/24 07:35 Into Room 09/01/24 07:35 Procedure Start 09/01/24 08:07 Procedure Start Time: 08:07 Procedure Stop Time: 09:38 Select all DRAINS/GRAFTS/IMPLANTS that apply: None Estimated Blood Loss: 100 Fluids Replaced: 1000 cc LR Specimen collected: Yes Description of specimen(s) removed: uterus, cervix, bilateral fallopian tubes Description of surgery: The patient was taken to the operating room where she was prepped and draped in the dorsal lithotomy position. Her arms were tucked to the side and padded and her legs were placed in the yellowfin stirrups. Care was taken to ensure that she was placed in a neurologically safe and neutral position. A weighted speculum was placed in the vagina and the anterior lip of the cervix was grasped with a single-tooth tenaculum. The cervix sounded to 9 centimeters. 2-0 Vicryl sutures were secured to the cervix at 3 and 9:00. The 2 cm Uterine intelligence chief placed into the cervix and the balloon inflated. The stay sutures were placed through the cup and secured down to the cervix. Once the intelligence chief was secured to the cervix the Beard catheter was placed to straight drain. Attention was turned to the abdominal portion of the case. Before skin incisions were made they were infiltrated with 0.5% Marcaine solution for local anesthetic. A 5 mm LUQ incision was made and while tenting the anterior abdominal wall up with towel clamps a 5 mm blade less trocar and sleeve were advanced directly into the peritoneal cavity with visualization through the Visiport. Peritoneal placement was confirmed with the laparoscope the pneumoperitoneum was created, and the underlying abdominal contents were intact. The patient was placed in Trendelenburg and the above findings were noted. Right 5mm and left lateral 7 mm trochars were placed under direct visualization without difficulty. The antimesenteric portion of the tube was clamped sealed and transected serially on both sides with the LigaSure device. The round ligaments were clamped sealed and transected and a window was made in the peritoneum. The utero-ovarian ligaments were then clamped sealed and transected with the LigaSure device and the pedicles were hemostatic The bladder flap was dissected down with the LigaSure device and blunt dissection and the uterine arteries were then skeletonized. The uterine arteries were clamped sealed and transected on both sides with the LigaSure device. Then along the cardinal ligament uterine arteries adjacent to the cervix were clamped sealed and transected with the LigaSure device to move them away from the vaginal cuff angle. At this point the pedicles were all examined and found to be hemostatic. The bladder flap was rechecked and found to be adequately down. The monopolar tip of the LigaSure device was then used to enter the anterior vagina. The vaginal manipulator cup was noted in the vaginal colpotomy incision was made circumferentially around the cup. When the 3 and 9:00 positions of the cervicovaginal junction were reached these were clamped sealed and transected with the LigaSure device to secure any small remaining vessels. At this point the pedicles were hemostatic from above and attention was turned to the vaginal portion of the case again. The uterus was brought intact out through the vaginal colpotomy incision along with the tubes There is some bleeding from the left vaginal cuff angle and this was grasped with a Nancy clamp and suture ligated. The posterior cuff was secured to the periotoneum in a running locked fashion with 2-0 vicryl suture. Vaginal angle sutures were placed on both sides with 0 Vicryl sutures and care was taken to ensure that the uterosacral ligament was secured into this stitch. The re (more content not included)... Normal [facility] ,Urineon 09-01-2024 Beta HCG ( test) Ql (U) Negative Normal [facility] Comment on above: Result Comment: Very dilute urine specimens, as indicated by a low specific gravity, may not contain medical customer service representative levels of hCG. If is still suspected, a first morning urine specimen should be collected 48 hours later and tested. Performed By: #### L 400.7600 ####[facility] [id number] [place], [address] Surgery Specimen Level Von 0 09-01-2024 Surgery Specimen Level V Patient Age/Sex Location Account Attending Physician RAUL CHONG 43/ [facility] [id number] Dr. Beulah Campa MD Specimen: [id number] Received: 09/01/24 Status: TIARA Greermark Num: [id number] Spec Type: UTERUS Subm Dr: Dr. Beulah Campa MD HEADER OPERATION: ERAS, hysterectomy TLH, bilateral salpingectomy PRE-OP DIAGNOSIS: Dysmenorrhea, abnormal uterine bleeding, adenomyosis, intramural uterine fibroid, arcuate uterus TISSUE SUBMITTED: A- Uterus, cervix, bilateral fallopian tubes MICROSCOPIC DIAGNOSIS A. Uterus, cervix, fallopian tubes, hysterectomy, salpingectomy: - Cervix: hyperkeratosis, focal dilated endocervical glands. - Endometrium: secretory phase. - Myometrium: adenomyomatosis, leiomyoma (0.5 cm). - Serosa: delicate adhesions with benign mesothelial inclusion cyst. - Fallopian tubes: benign paratubal cysts. MICROSCOPIC DESCRIPTION Slides are reviewed. GROSS DESCRIPTION A. Received in formalin labeled with the patient's name and date of . Designated as uterus, cervix, bilateral fallopian tubes is a 120.6 g, 8.2 x 5.7 x 4.4 cm uterus with detached adnexa. The serosa is dark pink-purple with dense, possible adhesions of the cornu. There is also a 1.1 x 0.8 x 0.3 cm area of edematous serosa at the cornu (suspicious for cyst). The attached cervix is sapp-pink and erythematous, measuring 2.5 x 2.4 cm; the 0.9 cm os is probe patent. The specimen is inked as follows: Msyvkiez-sggxdLjsijkfnr-cx ackParametrium-orange. Opening reveals a 5.3 x 3.4 cm slightly irregular endometrial canal lined by lush, pink endometrium that measures up to 0.6 cm thick. There is a mucoid cyst in the posterior lower uterine segment. The myometrium is sapp-pink trabeculated and possibly cystic, measuring up to 2.3 cm thick. There are 2 possible intramural leiomyomas, 0.5 cm and 1.4 cm. The pink-red bilateral fallopian tubes are fimbriated, measuring 2.4 x 0.4 cm and 5.2 x 0.5 cm. There are 2 paratubal cysts, 0.9 cm and 1.1 cm. The longer fallopian tube has an attached, bianchi metallic clamp (consistent with a contraception device). Sweat Box Attendant sections are submitted as follows: A1-A3: Anterior cervixA4-A5: Posterior cervix A6: Posterior cervix, lower uterine segment with cystA7: Anterior endomyometriumA8: Posterior endomyometriumA9-A10: Fallopian csvmfJ68: Serosal adhesions, edema (vs cyst) A12: Intramural leiomyomas MN 09/01/2024 CPT:94974 Patient Age/Sex Location Account Attending Physician RAUL CHONG 43/F [facility] [id number] Dr. Beulah Campa MD Signed (signature on file) Dr. Charlotte Rosales MD 09/06/24 1127 Normal [facility] Comment on above: Performed By: #### P SUV ####[facility] [id number] [place], [address] Urine testOrdered By: Beulah Campa on 09-01-2024 HCG ( test) Ql (U) Negative [facility] Comment on above: Very dilute urine sp ecimens, as indicated by a low specificgravity, may not contain medical customer service representative levels of hCG. If is still suspected, a first morning urinespecimen should be collected 48 hours later and tested. Surya 08-31-2024 CNOV Office Visit (WOUCA) -- RAUL CHONG ([id number]) 1980 F Date Time Provider Department 08/31/24 9:15 AM ROSEANN ARMSTRONG During your visit today, we recorded the following information about you: Temperature Pulse Respiration Blood pressure 97.5 degrees 70/minute 16/minute 108/62 Weight 85.4 kg Roseann Armstrong MD 08/31/2024 9:33 AM Signed [facility] Subjective Raul Chong is a 43 year [...] Objective BP 108/62 Pulse 70 Temp 36.4 ?C (97.5 ?F) Resp 16 Wt 85.4 kg (188 lb 4.4 oz) LMP 08/06/2024 (Approximate) SpO2 98% BMI 28.63 kg/m? Physical Exam Constitutional: General: She is not [...] which time oral antibiotic may be indicated. Roseann Armstrong MD Differential Diagnoses - Auditory canal sore is more likely for the following reason(s): suggested by HANDP Procedures Allergies As of Date: 08/31/2024 Noted Allergy Reaction GABAPENTIN 04/13/2014 14 - [...] Other: See Comments Comments: anxiety Date Reviewed: 08/31/2024 Reviewed by: Latanya Jimenez MA - Fully Assessed Reason for Visit: Ear Problem [38] Cmt: ? insect bite on left ear, pain and swelling x 2 days Primary Visit Diagnosis:Otalgia, left [H92.02] Prescriptions as of 08/31/2024 - pregabalin (LYRICA) 75 mg capsule Take [...] by mouth. Problem List As Of Date 08/31/2024 Noted Resolved Unspecified asthma(493.90) [J45.909] 0 (more content not included)... Normal [facility] Magnesiumon 08-30-2024 Magnesium [Mass/Vol] 2.3 mg/dL High 1.5-2.2 [facility] Comment on above: Performed By: #### B TSPAT, L400.7600, L501.5200 ####[facility] [id number] [place], [place], [id number] Magnesium measurement (mass/ volume)Ordered By: Beulah Campa on 08-30-2024 Magnesium (Unsp spec) [Mass/Vol] 2.3 mg/dL High 1.5-2.2 [facility] ,Urineon 08-30-2024 Beta HCG ( test) Ql (U) Normal [facility] Comment on above: Result Comment: COUL DN'T FIND URINE IN LAB- BUT TEST FOR SURGERY NEEDS DONE DAY OF SURGERY- WILL SEND EMAIL Performed By: #### B TSPAT, L400.7600, L501.5200 ####[facility] [id number] [place], [address] INTERNAL QC OK? [facility] Comment on above: Result Comment: COUL DN'T FIND URINE IN LAB- BUT TEST FOR SURGERY NEEDS DONE DAY OF SURGERY- WILL SEND EMAIL Performed By: #### B TSPAT, L400.7600, L501.5200 ####[facility] [id number] [place], [address] RECORD KIT LOT# [facility] Comment on above: Result Comment: COUL DN'T FIND URINE IN LAB- BUT TEST FOR SURGERY NEEDS DONE DAY OF SURGERY- WILL SEND EMAIL Performed By: #### B TSPAT, L400.7600, L501.5200 ####[facility] [address] [place], [address] Type AND Screen - PAT ONLYon 08-30-2024 Ab SCREEN GEL Negative [facility] Comment on above: Order Comment: Reaso n for Laboratory Test [id number] Performed By: #### B TSPAT, L400.7600, L501.5200 ####[facility] [address] [place], [address] MR/PAT.ANEon 08-25-2024 MR/PAT.ANE [facility] Medical Records Department [address] [place] [address] PAT - Anesthesia 08/25/24 1154 MR#: [id number] Acct: [id number] Name: RAUL CHNOG DIANNA Rep #: [id number] : 1980 43 From: Vince Salter MD PCP: Dr. Maira Escamilla MD Status:PRE [facility] Y Race: C Location: [facility] Pre-Assessment Diagnosis/Proposed Procedure Planned Operative Procedure(s): (B) Hysterectomy TLH, bilateral salpingectomy, ERAS Anesthesia History Anesthesia History - shift supervisor film processing: Anesthesia History - shift supervisor film processing Hx Hospitalization Yes: 08/2023 HEART 08/25/24 11:24 [...] take am of surgery PONV PONV - shift supervisor film processing: PONV - shift supervisor film processing Female Yes 08/25/24 11:24 HX of Motion [...] 06/02/24 14:39 Respiratory Assessment Respiratory Assessment - shift supervisor film processing: Respiratory Tract Infection Hx - shift supervisor film processing Hx Respiratory Tract Infection No 08/25/24 11:24 STOP Sleep Apnea STOP Sleep Apnea - shift supervisor film processing: STOP Sleep Apnea - shift supervisor film processing Hx Hypertension No 08/25/24 11:24 Hx Sleep [...] Tobacco Use History Tobacco Use History - shift supervisor film processing: Tobacco Use History - shift supervisor film processing Tobacco Use Smoking Status Current every day smoker 08/25/24 11:24 Hx Tobacco Use No 08/25/24 11:24 Years Smoking Packs Smoked per Day Smoking Cessation Date was within the last 15 years Hx Smoking Cessation Date Hx Smoking Cessation No 08/25/24 11:24 Counseling Hematologic Medial History Hematologic Hx - shift supervisor film processing: Hematologic Medical Hx - platform consultant Hx of Blood Transfusion No 08/25/24 11:24 Hx of Transfusion in last 3 No 08/25/24 11:24 Months Date of Last Transfusion (if within last 3 months) Ever experience any problems No 08/25/24 11:24 with transfusion(s)? Specify any problems Hx of Preganancy in last 3 N/A 08/25/24 11:24 Months Nurse Filling Out Transfusion NBUCHER 08/25/24 11:24 Questions: Date: 08/25/24 08/25/24 11:24 Time: 11:26 08/25/24 11:24 Patient unable to answer at this time (ie. confused, unrespo /Reproduction History /Reproductive History - shift supervisor film processing: /Reproductive Hx- shift supervisor film processing Hx Now No 08/25/24 11:24 Gestational Age (in weeks): EDC: Hx Hx Para Hx Section SAB No 08/25/24 11:24 [facility] Medical History (Updated 08/25/24 @ 11:32 by [...] supplement 08/20/23 (more content not included)... Normal [facility] CNOVon 08-24-2024 CNOV Office Visit (OBGYWM ) -- RAUL CHONG ([id number]) 1980 F Date Time Provider Department 08/24/24 [...] 9.7 m (more content not included)... Normal [facility] HISTORY PHYSICALon HISTORY PHYSICAL HNO ID: [id number] Author: BEULAH CAMPA MD Service: ? Author [...] was per (more content not included)... Normal [facility] Absolute lymphocyte countOrd ered By: Carlos Dockery on 08-16-2024 Lymphocytes Auto (Unsp spec) [#/Vol] 0.32 10*3/uL Low 0.83-4.51 [facility] Absolute neutrophil countOrd ered By: Carlos Dockery on 08-16-2024 Neutrophils (Bld) [#/Vol] 6.1 10*3/uL 2.0-7.7 [facility] Anion gap in Serum or Plasma Ordered By: Carlos Dockery on 08-16-2024 Anion gap [Moles/Vol] 8 mmol/L 5-15 [facility] Automated lymphocyte count a s percentage of total leukocytesOrdered By: Carlos Dockery on 08-16-2024 Lymphocytes/100 WBC Auto (Unsp spec) 4.7 % Low 19-41 [facility] BUN/creatinine ratioOrdered By: Carlos Dockery on 08-16-2024 Urea nitrogen/Creatinine [Mass ratio] 14.1 mg/mg 10- [facility] Basic Metabolic Profile (BMP )on 08-16-2024 BUN/CRE 14.1 RATIO Normal - [facility] Comment on above: Performed By: #### L 700.6800, L500.2500, L100.0100 #### [facility] [address] [place], [address] Calcium [Mass/Vol] 8.4 mg/dL Normal 7.6-11.0 [facility] Comment on above: Performed By: #### L 700.6800, L500.2500, L100.0100 #### [facility] [address] [place], [address] Chloride [Moles/Vol] 102 mmol/L Normal 98-108 [facility] Comment on above: Performed By: #### L 700.6800, L500.2500, L100.0100 #### [facility] [address] [place], [address] CO2 [Moles/Vol] 25.8 mmol/L Normal 21.0-32.0 [facility] Comment on above: Performed By: #### L 700.6800, L500.2500, L100.0100 #### [facility] [address] [place], [address] Creatinine [Mass/Vol] 0.55 mg/dL Low 0.70-1.20 [facility] Comment on above: Performed By: #### L 700.6800, L500.2500, L100.0100 #### [facility] [address] [place], [address] ECRCL 149.23 ml/min Normal 50-250 [facility] Comment on above: Performed By: #### L 700.6800, L500.2500, L100.0100 #### [facility] [address] [place], [address] GAP 8 Normal 5-15 [facility] Comment on above: Performed By: #### L 700.6800, L500.2500, L100.0100 #### [facility] [address] [place], [address] GFR/1.73 sq M.predicted among non-blacks MDRD (S/P/Bld) [Vol rate/Area] 116 mL/min/{1.73_m2} Normal >60 [facility] Comment on above: Result Comment: mL/m in/1.73m2 CKD-EPI Creatinine Equation (2020) Performed By: #### L 700.6800, L500.2500, L100.0100 #### [facility] [address] [place], [address] Glucose [Mass/Vol] 97 mg/dL Normal 70-99 [facility] Comment on above: Performed By: #### L 700.6800, L500.2500, L100.0100 #### [facility] [address] [place], [address] Potassium [Moles/Vol] 4.0 mmol/L Normal 3.3-5.1 [facility] Comment on above: Performed By: #### L 700.6800, L500.2500, L100.0100 #### [facility] [address] [place], [address] Sodium [Moles/Vol] 136 mmol/L Normal 133-145 [facility] Comment on above: Performed By: #### L 700.6800, L500.2500, L100.0100 #### [facility] [address] [place], [address] Urea nitrogen [Mass/Vol] 8 mg/dL Normal 4-19 [facility] Comment on above: Performed By: #### L 700.6800, L500.2500, L100.0100 #### [facility] [address] [place], [address] Basophil percentageOrdered B y: Carlos Dockery on 08-16-2024 Basophils/100 WBC (Bld) 0.3 % 0-1 [facility] Bilirubin Test strip Ql (U)O rdered By: Carlos Dockery on 08-16-2024 Bilirubin Ql (U) Negative Negative [facility] CBC W/Diff, Automatedon Absolute Lymph 0.32 X10 3/uL Low 0.83-4.51 [facility] Comment on above: Performed By: #### L 700.6800, L500.2500, L100.0100 #### [facility] [address] [place], [address] Absolute Neut 6.1 X10 3/uL Normal 2.0-7.7 [facility] Comment on above: Performed By: #### L 700.6800, L500.2500, L100.0100 #### [facility] [address] [place], [address] Basophils/100 WBC (Bld) 0.3 % Normal 0-1 [facility] Comment on above: Performed By: #### L 700.6800, L500.2500, L100.0100 #### [facility] [address] [place], [address] Eosinophils/100 WBC (Bld) 0.1 % Normal 0-5 [facility] Comment on above: Performed By: #### L 700.6800, L500.2500, L100.0100 #### [facility] [address] [place], [address] Erythrocyte distribution width (RBC) [Ratio] 13.1 % Normal 11.6-14.6 [facility] Comment on above: Performed By: #### L 700.6800, L500.2500, L100.0100 #### [facility] [address] [place], [address] Hematocrit (Bld) [Volume fraction] 35.8 % Low 37-47 [facility] Comment on above: Performed By: #### L 700.6800, L500.2500, L100.0100 #### [facility] [address] [place], [address] Hemoglobin (Bld) [Mass/Vol] 11.9 g/dL Low 12.0-15.0 [facility] Comment on above: Performed By: #### L 700.6800, L500.2500, L100.0100 #### [facility] [address] [place], [address] IG% 0.300 Normal 0.0-0.9 [facility] Comment on above: Result Comment: IG% - Immature Granulocytes (promyelocytes, myelocytes and metamyelocytes) > 1% indicates that a LEFT SHIFT is Present. Performed By: #### L 700.6800, L500.2500, L100.0100 #### [facility] [address] [place], [address] Lymphocytes/100 WBC (Bld) 4.7 % Low 19-41 [facility] Comment on above: Performed By: #### L 700.6800, L500.2500, L100.0100 #### [facility] [address] [place], [address] MCH (RBC) [Entitic mass] 28.5 pg Normal 27.0-32.0 [facility] Comment on above: Performed By: #### L 700.6800, L500.2500, L100.0100 #### [facility] [address] [place], [address] MCHC (RBC) [Mass/Vol] 33.2 g/dL Normal 32-36 [facility] Comment on above: Performed By: #### L 700.6800, L500.2500, L100.0100 #### [facility] [address] [place], [address] MCV (RBC) [Entitic vol] 85.9 fL Normal 81-99 [facility] Comment on above: Performed By: #### L 700.6800, L500.2500, L100.0100 #### [facility] [address] [place], [address] Monocytes/100 WBC (Bld) 5.4 % Normal 0-10 [facility] Comment on above: Performed By: #### L 700.6800, L500.2500, L100.0100 #### [facility] [address] [place], [address] Neutrophils/100 WBC (Bld) 89.2 % High 47-70 [facility] Comment on above: Performed By: #### L 700.6800, L500.2500, L100.0100 #### [facility] [address] [place], [address] Nucleated RBC (Bld) [#/Vol] 0 10*3/uL Normal 0-5 [facility] Comment on above: Performed By: #### L 700.6800, L500.2500, L100.0100 #### [facility] [address] [place], [address] Platelet mean volume (Bld) [Entitic vol] 9.8 fL Normal 6.2-12.0 [facility] Comment on above: Performed By: #### L 700.6800, L500.2500, L100.0100 #### [facility] [address] [place], [address] Platelets (Bld) [#/Vol] 207 10*3/uL Normal 150-450 [facility] Comment on above: Performed By: #### L 700.6800, L500.2500, L100.0100 #### [facility] [address] [place], [address] RBC (Bld) [#/Vol] 4.17 10*6/uL Low 4.2-5.4 [facility] Comment on above: Performed By: #### L 700.6800, L500.2500, L100.0100 #### [facility] [address] [place], [address] RDW SD 41.1 fl Normal 35.1-43.9 [facility] Comment on above: Performed By: #### L 700.6800, L500.2500, L100.0100 #### [facility] [address] [place], [address] WBC (Bld) [#/Vol] 6.9 10*3/uL Normal 4.4-11.0 [facility] Comment on above: Performed By: #### L 700.6800, L500.2500, L100.0100 #### [facility] [address] [place], [address] Carbon dioxide, total [Moles /volume] in Central venous bloodOrdered By: Carlos Dockery on 08-16-2024 CO2 [Moles/Vol] 25.8 mmol/L 21.0-32.0 [facility] Chest 1 View (Portable)on Chest 1 View (Portable) [facility] Imaging Services [address] [place] [address] Chest 1 View (Portable) MR#: [id number] Acct: [id number] Name: RAUL FLEMING DIANNA Rep #: [id number] : 1980 F 43 From: Hussein Ruiz MD PCP: Dr. Maira Escamilla MD Status: REG ER Study: Chest 1 View (Portable) Date of Exam: 08/16/24 Exam# [id number] Ordering Dr: Carlos Dockery MD EXAM: XR Chest, 1 View CLINICAL INDICATION: FEVER TECHNIQUE: Frontal view of the chest. COMPARISON: No relevant prior studies available. FINDINGS: LUNGS AND PLEURAL SPACES: Unremarkable. No consolidation. No pneumothorax. HEART: Unremarkable. No cardiomegaly. MEDIASTINUM: Unremarkable. Normal mediastinal contour. BONES/JOINTS: Unremarkable. No acute fracture. RAD/Chest 1 View (Portable) IMPRESSION: No acute cardiopulmonary process. Reading Location: [facility] CC: Dr. Carlos Dockery MD; Dr. Maira Escamilla MD [employer] Installer: Signed Normal [facility] Chloride assayOrdered By: Dallas Dockery on 08-16-2024 Chloride [Moles/Vol] 102 mmol/L 98-108 [facility] Emergency Department Summary on 08-16-2024 Emergency Department Summary [facility] Medical Records Department [address] [place] [address] Emergency Department Summary 08/16/24 MR#: [id number] Acct: [id number] Name: RAUL FLEIMNG DIANNA Rep #: [id number] : 1980 43 From: Carlos Dockery MD [...] discharge or pain. No dysuria or hematuria. [facility] Medical History Migraine GERD (gastroesophageal reflux disease) [...] do not (more content not included)... Normal [facility] Eosinophil percentageOrdered By: Carlos Dockery on 08-16-2024 Eosinophils/100 WBC (Bld) 0.1 % 0-5 [facility] Erythrocyte distribution wid th ratioOrdered By: Carlos Dockery on 08-16-2024 Erythrocyte distribution width (RBC) [Ratio] 13.1 % 11.6-14.6 [facility] Erythrocyte distribution wid th standard deviationOrdered By: Carlos Dockery on 08-16-2024 Erythrocyte distribution width (RBC) [Ratio] 41.1 fl 35.1-43.9 [facility] Glomerular filtration rate ( GFR) estimation/1.73 sq m using serum, plasma, or whole bOrdered By: Carlos Dockery on 08-16-2024 GFR/1.73 sq M.predicted among non-blacks MDRD (S/P/Bld) [Vol rate/Area] 116 mL/min/{1.73_m2} >60 [facility] Comment on above: mL/min/1.73m2 CKD-EP I Creatinine Equation (2020) Hematocrit Auto (Bld) [Volum e fraction]Ordered By: Carlos Dockery on 08-16-2024 Hematocrit (Bld) [Volume fraction] 35.8 % Low 37-47 [facility] Hemoglobin measurementOrdere d By: Carlos Dockery on 08-16-2024 Hemoglobin (Bld) [Mass/Vol] 11.9 g/dL Low 12.0-15.0 [facility] Immature granulocytes/100 WB C Auto (Bld)Ordered By: Carlos Dockery on 08-16-2024 Immature granulocytes/100 WBC (Bld) 0.300 % 0.0-0.9 [facility] Comment on above: IG% - Immature Granu locytes (promyelocytes, myelocytes and metamyelocytes) > 1% indicates that a LEFT SHIFT is Present. Influenza virus A and B and SARS-CoV-2 (COVID-19) and Respiratory syncytial virus RNAOrdered By: Carlos Dockery on 08-16-2024 SARS-CoV-2 (COVID-19) RNA KRISTINA+probe Ql (Unsp spec) [facility] Ketones Test strip Ql (U)Ord ered By: Carlos Dockery on 08-16-2024 Ketones Ql (U) Negative Negative [facility] M100.678on 08-16-2024 M100.678 Pending SARS-CoV-2 (COVID 19) Negative INFLUENZA A Negative INFLUENZA B Negative RSV PCR Negative Normal [facility] Comment on above: Performed By: #### L 400.0001, M100.678 ####[facility] [address] [place], [address] MCV (mean corpuscular volume ) determinationOrdered By: Carlos Dockery on 08-16-2024 MCV (RBC) [Entitic vol] 85.9 fL 81-99 [facility] Mean corpuscular hemoglobin (MCH) determinationOrdered By: Carlos Dockery on 08-16-2024 MCH (RBC) [Entitic mass] 28.5 pg 27.0-32.0 [facility] Mean corpuscular hemoglobin concentration (MCHC) determinationOrdered By: Carlos Dockery on 08-16-2024 MCHC (RBC) [Mass/Vol] 33.2 g/dL 32-36 [facility] Mean platelet volume determi nationOrdered By: Carlos Dockery on 08-16-2024 Platelet mean volume (Bld) [Entitic vol] 9.8 fL 6.2-12.0 [facility] Microscopic analysis of urin e for red blood cells (RBC)Ordered By: Carlos Dockrey on 08-16-2024 Microscopic analysis of urine for red blood cells (RBC) 0 SEEN /hpf 0-5 [facility] Monocyte percentageOrdered B y: Carlos Dockery on 08-16-2024 Monocytes/100 WBC (Bld) 5.4 % 0-10 [facility] Mucus LM Ql (Urine sed)Order ed By: Carlos Dockery on 08-16-2024 Mucus Ql (Urine sed) 0 SEEN /hpf [facility] Neutrophil percentageOrdered By: Carlos Dockery on 08-16-2024 Neutrophils/100 WBC (Bld) 89.2 % High 47-70 [facility] Nitrite Test strip Ql (U)Ord ered By: Carlos Dockery on 08-16-2024 Nitrite Ql (U) Negative Negative [facility] Nucleated red blood cell per centageOrdered By: Carlos Dockery on 08-16-2024 Nucleated RBC/100 WBC (Bld) [Ratio] 0 % 0-5 [facility] Platelet countOrdered By: Dallas Dockery on 08-16-2024 Platelets (Bld) [#/Vol] 207 10*3/uL 150-450 [facility] Potassium measurement (mass/ volume)Ordered By: Carlos Dockery on 08-16-2024 Potassium (Unsp spec) [Mass/Vol] 4.0 mmol/L 3.3-5.1 [facility] ,Serum,hCG Quali.on 08-16-2024 HCG, SERUM QUAL Negative Normal [facility] Comment on above: Performed By: #### L 700.6800, L500.2500, L100.0100 #### [facility] [address] [place], [address] Protein Test strip Ql (U)Ord ered By: Carlos Dockery on 08-16-2024 Protein Ql (U) 15 mg/dl High Negative [facility] RBC Auto (Bld) [#/Vol]Ordere d By: Carlos Dockery on 08-16-2024 RBC (Bld) [#/Vol] 4.17 10*6/uL Low 4.2-5.4 [facility] Serum beta-hCG test, qualita tiveOrdered By: Carlos Dockery on 08-16-2024 Beta HCG ( test) Ql Negative [facility] Serum creatinine measurement (mass/volume)Ordered By: Carlos Dockery on 08-16-2024 Creatinine [Mass/Vol] 0.55 mg/dL Low 0.70-1.20 [facility] Serum glucose measurement (m ass/volume)Ordered By: Carlos Dockery on 08-16-2024 Glucose [Mass/Vol] 97 mg/dL 70-99 [facility] Serum or plasma calcium shayna urement (mass/volume)Ordered By: Carlos Dockery on 08-16-2024 Calcium [Mass/Vol] 8.4 mg/dL 7.6-11.0 [facility] Serum or plasma urea nitroge n measurement (mass/volume)Ordered By: Carlos Dockery on 08-16-2024 Urea nitrogen [Mass/Vol] 8 mg/dL 4-19 [facility] Sodium levelOrdered By: Carlos Dockery on 08-16-2024 Sodium [Moles/Vol] 136 mmol/L 133-145 [facility] Squamous epithelial cells de tection in urine sediment by light microscopyOrdered By: Carlos Dockery on 08-16-2024 Epithelial cells.squamous LM Ql (Urine sed) 0-5 SEEN /hpf 5-10 [facility] Urinalysis, Completeon 08-16 EPI,SQUAMOUS 0-5 SEEN Normal - [facility] Comment on above: Order Comment: CLEAN CATCH Performed By: #### L 400.0001, M100.678 ####[facility] [address] [place], [address] WBC 0-5 SEEN Normal 0-5 [facility] Comment on above: Order Comment: CLEAN CATCH Performed By: #### L 400.0001, M100.678 ####[facility] [address] [place], [address] BACTERIA 0 SEEN Normal None Seen [facility] Comment on above: Order Comment: CLEAN CATCH Performed By: #### L 400.0001, M100.678 ####[facility] [address] [place], [address] Mucus Ql (Urine sed) 0 SEEN Normal [facility] Comment on above: Order Comment: CLEAN CATCH Performed By: #### L 400.0001, M100.678 ####[facility] [address] [place], [address] RBC 0 SEEN Normal 0-5 [facility] Comment on above: Order Comment: CLEAN CATCH Performed By: #### L 400.0001, M100.678 ####[facility] [address] [place], [address] Urine clarityOrdered By: Sendy Dockery on 08-16-2024 Clarity (U) Clear Clear [facility] Urine color determinationOrd ered By: Carlos Dockery on 08-16-2024 Color (U) Yellow Yellow [facility] Urine glucose detectionOrder ed By: Carlos Dockery on 08-16-2024 Glucose Ql (U) Normal mg/dl Normal [facility] Urine leukocyte esterase det ection by dipstickOrdered By: Carlos Dockery on 08-16-2024 Leukocyte esterase Test strip Ql (U) 25 /ul High Negative [facility] Urine pHOrdered By: Carlos luna on 08-16-2024 pH (U) 6.0 [pH] 5.0 - 8.0 [facility] Urine sediment bacteria coun t by microscopy (number/high power field)Ordered By: Carlos Dockery on 08-16-2024 Bacteria LM.HPF (Urine sed) [#/Area] 0 /[HPF] None Seen [facility] Urine specific gravity measu rementOrdered By: Carlos Dockery on 08-16-2024 Specific gravity (U) [Rel density] 1.010 1.002-1.03 0 [facility] Urine urobilinogen measureme ntOrdered By: Carlos Dockery on 08-16-2024 Urobilinogen Ql (U) Normal mg/dl Normal [facility] White blood cell (WBC) count Ordered By: Carlos Dockery on 08-16-2024 WBC (Bld) [#/Vol] 6.9 10*3/uL 4.4-11.0 [facility] White blood cell countOrdere d By: Carlos Dockery on 08-16-2024 White blood cell count 0-5 SEEN /hpf 0-5 [facility] CNOVon 08-04-2024 CNOV Office Visit (OBGYWM ) -- RAUL CHONG ([id number]) 1980 F Date Time Provider Department 08/04/24 [...] please contact your doctor's office. Makeda Smith APRN.FATEMEH 08/04/2024 10:13 AM Signed Patient declined line helperMarivel Edouard is a 43 year old Female [...] material given to the patient. Makeda Smith APRN.WOODS MANAGER Referring Provider: BEULAH CAMPA [[id number]] Allergies As of Date: 08/04/2024 Noted Allergy [...] Visit Diagnosis:Adenomyosis of uterus [N80.03] Order(s):ENDOMETRIAL BIOPSY [8099924] Order #: [id number] SURGICAL PATHOLOGY [YEL2514] Order #: [id number]. #:[id number] UA DIP,URINE HCG (POC) [6704976] Order #: [id number]. #:[id number] 5-LAB Prescri (more content not included)... Normal [facility] Pathology biopsy report Mason (Tiss)on 08-04-2024 AP DISCLAIMER Normal [facility] Comment on above: Order Comment: Speci men Type: TISSUE SPECIMEN Ordering Facility: [facility] Address: [address] [place] [address] Result Comment: Nicolasa chiu Developed Test (LDT) Disclaimer: Performance characteristics of immunohistochemical, immunofluorescent, and chromogenic in-situ hybridization tests have been determined by the performing laboratory within [facility] Pathology and Laboratory Medicine Department ([facility], [facility], [facility], [facility], [facility], [facility], or [facility]) in a manner consistent with CLIA requirements. One or more of these tests may not have been cleared or approved by the FDA. [facility] is regulated under CLIA as qualified to perform high-complexity testing. These tests are used for clinical purposes. These should not be regarded as investigational or for research. Positive and negative controls stain appropriately. Performed By: #### 6 6121-5 #### [facility] CLIA [id number] [address] [place] [address] [place] CASE REPORT Normal [facility] Comment on above: Order Comment: Speci men Type: TISSUE SPECIMEN Ordering Facility: [facility] Address: [address] [place] [address] Result Comment: Surg [facility] Pathology Report Case: [id number] Authorizing Provider: Makeda Smith APRN.WOODS MANAGER Collected: 08/04/2024 10:11 AM Ordering Location: OB/Gynecology Received: 08/04/2024 11:04 AM Pathologist: Damaris Crocker MD Specimen: Endometrium, Biopsy Performed By: #### 6 6121-5 #### [facility] CLIA [id number] [address] [place] [address] [place] CLINICAL HISTORY Adenomyosis Normal [facility] Comment on above: Order Comment: Speci men Type: TISSUE SPECIMEN Ordering Facility: [facility] Address: [address] [place] [address] Result Comment: Comm ent: AUB Performed By: #### 6 6121-5 #### [facility] CLIA [id number] [address] [place] [address] [place] FINAL DIAGNOSIS Normal [facility] Comment on above: Order Comment: Speci men Type: TISSUE SPECIMEN Ordering Facility: [facility] Address: [address] [place] [address] Result Comment: Endo metrium, biopsy: - Secretory endometrium at 1058 EDT Performed By: #### 6 6121-5 #### [facility] CLIA [id number] [address] [place] [address] [place] FINAL PERFORMING LAB Normal [facility] Comment on above: Order Comment: Speci men Type: TISSUE SPECIMEN Ordering Facility: [facility] Address: [address] [place] [address] Result Comment: Diag nostic interpretation performed at: [facility], [address] [place] [address] CLIA# [id number] Box Truck Washer: Patrick Smith MD Performed By: #### 6 6121-5 #### [facility] CLIA [id number] [address] [place] [address] [place] GROSS DESCRIPTION Normal [facility] Comment on above: Order Comment: Speci men Type: TISSUE SPECIMEN Ordering Facility: [facility] Address: [address] [place] [address] Result Comment: A. E ndometrium, Biopsy Received in formalin are multiple sapp-pink to red-brown soft feathery segments of tissue admixed with hemorrhagic and mucinous material aggregating to 4.2 x 2.6 x 0.3 cm. Totally submitted in two cassettes. Gross examination performed at [facility], [address] [place] [address] JT 08/04/2024 6:28 PM Performed By: #### 6 [id number] #### [facility] CLIA [id number] [address] [place] [address] [place] UA DIP,URINE HCG (POC)on Beta HCG ( test) Ql (U) Negative Negative [facility] Comment on above: Location:[facility], [address], [place], [address] Casing Finisher And Stuffer (POCT) Internal QC OK [facility] Location:[facility], [address], [place], [address] [facility] POINT OF CARE [facility] CNOVon 08-01-2024 CNOV Office Visit (OBGYWM ) -- RAUL CHONG ([id number]) 1980 F Date Time Provider Department 08/01/24 9:20 AM BEULAH CAMPA OBGYWM During your visit today, we recorded the following information about you: Blood pressure Weight 110/66 84.4 kg Beulah Campa MD 08/01/2024 12:07 PM Signed Obstetrics and Gynecology [place] MATERIAL DISTRIBUTOR Visit Subjective Recording using mapp2link software for draft documentation of the visit was discussed with the patient/authorized medical customer service representative; all questions welcomed and answered. 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 - Has a supportive boyfriend who is a final inspector truck trailer. - Drinks coffee but reports drinking water slowly and in small amounts. - Takes vitamins daily and reports eating well. - Has two children, both delivered via , and has had a tubal ligation. HISTORY: OB History Gravida3 Para2 Term2 Preterm0 AB1 Living2 SAB0 IAB0 Ectopic0 Multiple0 Live Births0 Senior Human Resources Representative History LMP: 07/10/2024 (Exact Date), Having periods Age at Menarche: 12 Age at First : Age at Menopause: Senior Human Resources Representative History Comments: Sexual Activity: Yes; Male Contraception: [...] tablet Take (more content not included)... Normal [facility] 07-26-2024 FATEMEHN Telephone (OBGYWM) -- RAUL CHONG ([id number]) 1980 F Date Time Provider Department 07/26/24 MAKEDA SMITH During your visit today, we recorded the following information about you: Laurel Vizcarra RN 07/26/2024 12:36 PM Signed Patient called to inquire if RM spoke to one of the physicians regarding a hysterectomy for her. Does she just need an appointment to discuss? GEORGINA Burdick Renee, APRN.[facility] 07/26/2024 1:13 PM Signed Yes I just [...] Fully Assessed Reason for Visit: Patient Question [4148] Prescriptions as of 07/26/2024 - pregabalin (LYRICA) [...] Encounter Status:Closed by CONCHA AKERS on 07/26/24 [facility] Surya 07-22-2024 CNOV Office Visit (OBGYWM ) -- RAUL CHONG ([id number]) 1980 F Date Time Provider Department 07/22/24 10:15 AM MAKEDA SMITH OBGYWM During your visit today, we recorded the following information about you: Blood pressure Weight 102/64 80.7 kg Makeda Smith APRN.WOODS MANAGER 07/22/2024 10:27 AM Signed Raul Chong is a 43 year old female who presents for problem visit redo pap SENSITIVE EXAM: The sensitive examination was discussed with the Patient or Patient's Authorized Sweat Box Attendant. As applicable, any other physician, advance practice provider, medical student, or other health professional student that will be observing or involved in the sensitive examination for educational or training purposes was discussed with the Patient or Authorized Sweat Box Attendant. The Patient or Authorized Sweat Box Attendant has agreed to proceed with the sensitive examination. (Sensitive examination includes inspection and/or palpation of the breasts, pelvis, prostate and anorectal regions). EXAM: BP 102/64 Wt 178 lb (80.7kg) LMP 07/10/2024 GENERAL: pleasant, female in no apparent distress HEENT: Normocephalic, atraumatic, mucus membranes moist, and no lesions CHEST: Normal inspiratory effort PELVIC: external genitalia normal, normal Bartholin's glands, urethra, [place]'s glands, no vulvar lesions, no cervical lesions, physiologic discharge present, normal appearing perineal body and perianal region BIMANUAL: deferred NEURO: alert and oriented x3,exam grossly non-focal EXTREMITIES: normal ASSESSMENT AND PLAN: Assessment AND Plan Screening for cervical cancer Repeat Pap due to excess amount of blood and prior Pap. Makeda Simth APRN.CNP Referring Provider: MAKEDA SMITH [[id number]] Allergies As of Date: 07/22/2024 Noted Allergy [...] Diagnosis:Screening for cervical cancer [Z12.4] Order(s):PAP TEST [[id number]] Order #: [id number] Prescriptions as of 07/22/2024 - pregabalin (LYRICA) [...] 07/21/2024 Intramural (more content not included)... Normal [facility] PAP TESTon 07-22-2024 ADEQUACY Normal [facility] Comment on above: Order Comment: Speci men Type: FLUID SPECIMEN Ordering Facility: [facility] Address: [address] [place] [address] Result Comment: Sati sfactory for interpretation. Transformation zone present Performed By: #### L [id number] #### [facility] CLIA [id number] [address] [place] [address] [place] CASE REPORT Normal [facility] Comment on above: Order Comment: Speci men Type: FLUID SPECIMEN Ordering Facility: [facility] Address: [address] [place] [address] Result Comment: Gyne cologic Cytology Report Case: [id number] Authorizing Provider: Makeda Smith APRN.WOODS MANAGER Collected: 07/22/2024 10:34 AM Ordering Location: OB/Gynecology Received: 07/22/2024 12:18 PM First Screen: Morenita Gary, [place], ASCP Rescreen: Clapacs, Danyelle Specimen: Pap Test, ThinPrep, Cervix Performed By: #### L [id number] #### [facility] CLIA [id number] [address] [place] [address] [place] CLINICAL HISTORY, CYTOLOGY, MATERIAL DISTRIBUTOR Routine Exam Normal [facility] Comment on above: Order Comment: Speci men Type: FLUID SPECIMEN Ordering Facility: [facility] Address: [address] [place] [address] Performed By: #### L [id number] #### [facility] CLIA [id number] [address] [place] [address] [place] FINAL PERFORMING LAB Normal [facility] Comment on above: Order Comment: Speci men Type: FLUID SPECIMEN Ordering Facility: [facility] Address: [address] [place] [address] Result Comment: Tech nical component, hospital librarian screening performed at: [facility], [address] [place], [place] [id number] CLIA: [id number] Diagnostic interpretation performed at: [facility], [address] [place], [place] [address] CLIA# [id number] Box Truck Washer: Patrick Smith MD Performed By: #### L [id number] #### [facility] CLIA [id number] [address] [place], [place] [address] [place] INTERPRETATION, CYTOLOGY, MATERIAL DISTRIBUTOR Normal [facility] Comment on above: Order Comment: Speci men Type: FLUID SPECIMEN Ordering Facility: [facility] Address: [address] [place] [address] Result Comment: Nega tive for intraepithelial lesion or malignancy. at 1007 EDT Performed By: #### L [id number] #### [facility] CLIA [id number] [address] [place] [address] [place] [facility] 07/10/2024 Normal [facility] Comment on above: Order Comment: Speci men Type: FLUID SPECIMEN Ordering Facility: [facility] Address: [address] [place] [address] Performed By: #### L [id number] #### [facility] CLIA [id number] [address] [place] [address] [place] PAP DISCLAIMER COMMENT The Pap Smear is a screening test for cervical cancer. False negative results occur with all screening tests, emphasizing the need for rescreening at recommended intervals, and clinical correlation. Normal [facility] Comment on above: Order Comment: Speci men Type: FLUID SPECIMEN Ordering Facility: [facility] Address: [address] [place] [address] Performed By: #### L [id number] #### [facility] CLIA [id number] [address] [place], [place] [address] [place] PAP HAMPER MAKER MACHINE COMMENT This specimen has be en analyzed by the FDA-approved THE BEARDED LADYTM System, which uses digital imaging and an enhanced artificial intelligence image analysis algorithm to identify caldwell of interest on the microscopic slide, to assist the back joiner and pathologist in evaluating cells on ThinPrep Pap tests. Following analysis, caldwell of interest on the microscopic slide selected by the algorithm are reviewed by a back joiner. If a sample requires hierarchical review, the pathologist will review the same caldwell of interest selected by the algorithm prior to final interpretation. Normal [facility] Comment on above: Order Comment: Speci men Type: FLUID SPECIMEN Ordering Facility: [facility] Address: [address] [place] [address] Performed By: #### L [id number] #### [facility] CLIA [id number] [address] [place] [address] STATES OF [facility] ARUN SCREENING W TOMOon 07-21 ARUN SCREENING W TONIO * * *Final Report* * * DATE OF EXAM: Jul 21 2024 10:48AM WRW [id number] - ARUN SCREENING W TONIO / PROCEDURE REASON: multiple diagnoses * * * * Physician Interpretation * * * * RESULT: [facility] [address] [place] [address] #[id number] - ARUN SCREENING W TONIO HISTORY: 43 [...] Preethi Caballero M.D. Electronically signed on: 07/22/2024 Solar Electric Installer: FRANCISCO JAVIER Transcribe Date/Time: Jul 21 2024 10:36A Dictated by: PREETHI CABALLERO MD This examination was interpreted and the report reviewed and electronically signed by: PREETHI CABALLERO MD on Jul 22 2024 8:49AM EST [id number] Normal [facility] US Pelvison 07-21-2024 [facility] Radiology Study observation (narrative) [facility] CNPNon 07-19-2024 CNPN Telephone (OBGYWM) -- RAUL CHONG ([id number]) 1980 F Date Time Provider Department 07/19/24 MAKEDA SMITH OBGYWM During your visit today, we recorded the following information about you: Ayaan Swift RN 07/19/2024 8:52 AM Signed Patient had [...] recommend completing the series then. Makeda Smith APRN.Ayaan Fischer RN 07/19/2024 11:01 AM Signed Patient notified. She is upset, she really wanted to get this vaccine. Asking if one vaccine will help prevent HPV at all even a small percentage? Can sent Infoharmoni message with response. Ayaan Swift RN Allergies As of Date: 07/19/2024 Noted [...] Encounter Status:Closed by MAKEDA SMITH on 07/19/24 [facility] Surya 07-14-2024 CNOV Office Visit (PLASST ) -- RAUL CHONG ([id number]) 1980 F Date Time Provider Department 6/5/25 1:00 PM BONNY HENRY During your visit today, we recorded the following information about you: Weight Height 81 kg 1.727 m Bonny Henry APRN.CNP 07/14/2024 4:15 PM Signed Plastic Surgery Note [...] been taken (more content not included)... Normal [facility] CNOVon 07-12-2024 CNOV Office Visit (OBGYWM ) -- CHONG,RAUL Harvinder ([id number]) 1980 F Date Time Provider Department 07/12/24 9:00 AM MAKEDA SMITH OBGYWM During your visit today, we recorded the following information about you: Blood pressure Weight Last Period 118/64 82.5 kg 07/10/24 Maekda Smith APRN.WOODS MANAGER 07/12/2024 10:12 AM Signed Patient declined line helper. Silke is a 43 year old who [...] Living2 SAB0 IAB0 Ectopic0 Multiple0 Live Births0 Senior Human Resources Representative History LMP: 07/10/2024 (Exact Date), Having periods Age at Menarche: 12 Age at First : Age at Menopause: Senior Human Resources Representative History Comments: Sexual Activity: Yes; Male Contraception: [...] low cervical GASTRIC BYPASS HX Pt reported 2022 LAPAROSCOPY SURG CHOLECYSTECTOMY 2014 PAST SURGICAL HISTORY [...] discussed with the Patient or Patient's Authorized Sweat Box Attendant. As applicable, any other physician, advance practice provider, medical student, or other health professional student that will be observing or involved in the sensitive examination for educational or training purposes was discussed with the Patient or Authorized Sweat Box Attendant. The Patient or Authorized Sweat Box Attendant has agreed to proceed with the sensitive [...] external genitalia normal, normal Bartholin's glands, urethra, [place]'s glands, no vulvar lesions, no cervical lesions, [...] 3. Encou (more content not included)... Normal [facility] HIGH RISK HUMAN PAPILLOMA MARBELLA (HPV), PCR FOR DETECTION AND GENOTYPINGon 07-12-2024 HPV 16 Ag Ql (Unsp spec) Not detected Normal Not detected [facility] Comment on above: Order Comment: Speci men Type: FLUID SPECIMENOrdering Facility: [facility] Address: [address] [place] [address] Performed By: #### H PVHRT ####[facility] [id number] [place] [address] [place] HPV 18 Ag Ql (Unsp spec) Not detected Normal Not detected [facility] Comment on above: Order Comment: Speci men Type: FLUID SPECIMENOrdering Facility: [facility] Address: [address] [place] [address] Performed By: #### H PVHRT ####[facility] [id number] [place] [address] [place] HPV 31+33+35+39+45+51+52+5 6+58+59+66+68 DNA KRISTINA+probe Ql (Cvx) Not detected Normal Not detected [facility] Comment on above: Order Comment: Speci men Type: FLUID SPECIMENOrdering Facility: [facility] Address: [address] [place] [address] Result Comment: High Risk HPV Other Type includes HPV types 31, 33, 35, 39, 45, 51, 52, 56, 58, 59, 66 and 68. Performed By: #### H PVHRT ####[facility] [id number] [place] [address] [place] PAP TESTon 07-12-2024 ADEQUACY Normal [facility] Comment on above: Order Comment: Speci men Type: FLUID SPECIMEN Ordering Facility: [facility] Address: [address] [place] [address] Result Comment: Unsa tisfactory for evaluation. Transformation zone present Excess blood Performed By: #### L [id number] #### [facility] CLIA [id number] [address] [place] [address] [place] CASE REPORT Normal [facility] Comment on above: Order Comment: Speci men Type: FLUID SPECIMEN Ordering Facility: [facility] Address: [address] [place] [address] Result Comment: Gyne cologic Cytology Report Case: [id number] Authorizing Provider: Makeda Smith APRN.WOODS MANAGER Collected: 07/12/2024 10:05 AM Ordering Location: OB/Gynecology Received: 07/12/2024 12:37 PM First Screen: Gmitro, Miah, CT, ASCP Rescreen: Deeds, Timothy, CT, ASCP Specimen: Pap Test, ThinPrep, Cervix Performed By: #### L [id number] #### [facility] CLIA [id number] [address] [place] [address] [place] CLINICAL HISTORY, CYTOLOGY, MATERIAL DISTRIBUTOR Routine Exam Normal [facility] Comment on above: Order Comment: Speci men Type: FLUID SPECIMEN Ordering Facility: [facility] Address: [address] [place] [address] Performed By: #### L [id number] #### [facility] CLIA [id number] [address] [place] [address] [place] FINAL PERFORMING LAB Normal [facility] Comment on above: Order Comment: Speci men Type: FLUID SPECIMEN Ordering Facility: [facility] Address: [address] [place] [address] Result Comment: Tech nical component, hospital librarian screening performed at: [facility], [address] [place] [address] [place] [address] CLIA: [id number] Diagnostic interpretation performed at: [facility], [address] [place] [address] [place] [address] CLIA# [id number] Box Truck Washer: Patrick Smith MD Performed By: #### L [id number] #### [facility] CLIA [id number] [address] [place] [address] [place] GROSS DESCRIPTION A. Cervix Normal [facility] Comment on above: Order Comment: Speci men Type: FLUID SPECIMEN Ordering Facility: [facility] Address: [address] [place] [address] Result Comment: Glac ial Acetic Acid added. Performed By: #### L [id number] #### [facility] CLIA [id number] [address] [place] [address] [place] INTERPRETATION, CYTOLOGY, MATERIAL DISTRIBUTOR Normal [facility] Comment on above: Order Comment: Speci men Type: FLUID SPECIMEN Ordering Facility: [facility] Address: [address] [place] [address] Result Comment: Unab le to perform interpretation due to unsatisfactory specimen. at 1407 EDT Performed By: #### L [id number] #### [facility] CLIA [id number] [address] [place] [address] [place] LMP 07/10/2024 Normal [facility] Comment on above: Order Comment: Speci men Type: FLUID SPECIMEN Ordering Facility: [facility] Address: [address] [place] [address] Performed By: #### L [id number] #### [facility] CLIA [id number] [address] [place] [address] [place] PAP DISCLAIMER COMMENT The Pap Smear is a screening test for cervical cancer. False negative results occur with all screening tests, emphasizing the need for rescreening at recommended intervals, and clinical correlation. Normal [facility] Comment on above: Order Comment: Speci men Type: FLUID SPECIMEN Ordering Facility: [facility] Address: [address] [place] [address] Performed By: #### L [id number] #### [facility] CLIA [id number] [address] [place] [address] [place] PAP HAMPER MAKER MACHINE COMMENT This specimen has be en analyzed by the FDA-approved [employer]aD[employer] System, which uses digital imaging and an enhanced artificial intelligence image analysis algorithm to identify caldwell of interest on the microscopic slide, to assist the back joiner and pathologist in evaluating cells on ThinPrep Pap tests. Following analysis, caldwell of interest on the microscopic slide selected by the algorithm are reviewed by a back joiner. If a sample requires hierarchical review, the pathologist will review the same caldwell of interest selected by the algorithm prior to final interpretation. Normal [facility] Comment on above: Order Comment: Speci men Type: FLUID SPECIMEN Ordering Facility: [facility] Address: [address] [place] [address] Performed By: #### L [id number] #### [facility] [place] [id number] [address] [place] [address] OF [place] CNPDana 06-21-2024 FATEMEHN Telephone (RHODA) -- RAUL CHONG ([id number]) 1980 F Date Time Provider Department 06/21/24 JAE STERLING During your visit today, we recorded the following information about you: Jessica Desir 06/21/2024 12:40 PM Signed Patient calling to see if prior authorization was sent to insurance company for her surgery with Dr. Sterling. She can be reached at [phone]. Ladi Tierney 06/29/2024 1:29 PM Signed Patient requesting return call to advise on insurance auth for surgery. See below. Please return call to [phone] Rachna Lynn 08/01/2024 9:08 AM Signed Patient calling for an update on status of authorization for procedure. Please call to advise. Alexia Brian RN 08/01/2024 9:16 AM Signed Case message sent to equipment scheduler for an update Allergies As of [...] Encounter Status:Closed by ALEXIA BRIAN on 08/01/24 Normal [facility] CNCOon 06-09-2024 CNCO Letter Text Normal [facility] CNOVon 06-09-2024 CNOV Office Visit (PLASST ) -- RAUL CHONG ([id number]) 1980 F Date Time Provider Department 06/09/24 2:20 PM BONNY HENRY During your visit today, we recorded the following information about you: Bonny Henry APRN.WOODS MANAGER 06/09/2024 2:48 PM Signed Plastic Surgery Post [...] questions or concerns during business hours call [phone] or after hours (after 5 pm or on the weekend) call [phone] and ask for the plastic surgery resident / fellow substation engineer for further instructions. If you have increasing [...] to clinic in 3 months Bonny Henry APRN.WOODS MANAGER June 09 (more content not included)... Normal [facility] Culture, Blood (WB)on 2024 CUB Blood cultures x2, f rom two different sites No growth in 5 days. Normal [facility] Comment on above: Performed By: #### M 200.1000 ####[id number] [place], [address] Bacteria Wnd Culton 06-04-19 25 Bacteria identified Cx Nom (Wound) CULTURE, WOUND: No growth GRAM STAIN: No organisms seen No Polymorphonuclear Leukocytes Normal [facility] Comment on above: Performed By: #### 6 [id number] #### [facility] CLIA [id number] [address] [place] [address] [place] CNOVon 06-03-2024 CNOV Office Visit ([facility] ) -- RAUL CHONG ([id number]) 1980 F Date Time Provider Department 06/03/24 1:00 PM BONNY HENRY [facility] During your visit today, we recorded the following information about you: Temperature Pulse Blood pressure Weight 99.1 degrees 77/minute 111/73 82.8 kg Height Last Period 1.727 m 05/15/24 Bonny Henry APRN.WOODS MANAGER 06/03/2024 1:35 PM Signed Plastic Surgery Post [...] questions or concerns during business hours call [phone] or after hours (after 5 pm or on the weekend) call [phone] and ask for the plastic surgery resident / fellow substation engineer for further instructions. If you have increasing [...] you have (more content not included)... Normal [facility] Anion gap in Serum or Plasma Ordered By: Carlos Dockery on 06-02-2024 Anion gap [Moles/Vol] 9 mmol/L - [facility] BUN/creatinine ratioOrdered By: Carlos Dockery on 06-02-2024 Urea nitrogen/Creatinine [Mass ratio] 17.7 mg/mg - [facility] Bilirubin, totalOrdered By: Carlos Dockery on 06-02-2024 Bilirubin [Mass/Vol] 0.23 mg/dL 0.00-1.30 [facility] Blood cultureOrdered By: Sendy Dockery on 06-02-2024 Bacteria identified Cx Nom (Bld) No growth in 5 days. [facility] CBC-Complete Blood Cnt No Di ffon 06-02-2024 Erythrocyte distribution width (RBC) [Ratio] 12.5 % Normal 11.6-14.6 [facility] Comment on above: Performed By: #### L 500.4050, L100.0500, L503.6005 #### [facility] [address] [place], [address] Hematocrit (Bld) [Volume fraction] 35.2 % Low 37-47 [facility] Comment on above: Performed By: #### L 500.4050, L100.0500, L503.6005 #### [facility] [address] [place], [address] Hemoglobin (Bld) [Mass/Vol] 11.7 g/dL Low 12.0-15.0 [facility] Comment on above: Performed By: #### L 500.4050, L100.0500, L503.6005 #### [facility] [address] [place], [address] MCH (RBC) [Entitic mass] 29.5 pg Normal 27.0-32.0 [facility] Comment on above: Performed By: #### L 500.4050, L100.0500, L503.6005 #### [facility] [address] [place], [address] MCHC (RBC) [Mass/Vol] 33.2 g/dL Normal 32-36 [facility] Comment on above: Performed By: #### L 500.4050, L100.0500, L503.6005 #### [facility] [address] [place], [address] MCV (RBC) [Entitic vol] 88.9 fL Normal 81-99 [facility] Comment on above: Performed By: #### L 500.4050, L100.0500, L503.6005 #### [facility] [address] [place], [address] Platelet mean volume (Bld) [Entitic vol] 9.9 fL Normal 6.2-12.0 [facility] Comment on above: Performed By: #### L 500.4050, L100.0500, L503.6005 #### [facility] [address] [place], [address] Platelets (Bld) [#/Vol] 224 10*3/uL Normal 150-450 [facility] Comment on above: Performed By: #### L 500.4050, L100.0500, L503.6005 #### [facility] [address] [place], [address] RBC (Bld) [#/Vol] 3.96 10*6/uL Low 4.2-5.4 [facility] Comment on above: Performed By: #### L 500.4050, L100.0500, L503.6005 #### [facility] [address] [place], [address] RDW SD 41.1 fl Normal 35.1-43.9 [facility] Comment on above: Performed By: #### L 500.4050, L100.0500, L503.6005 #### [facility] [address] [place], [address] WBC (Bld) [#/Vol] 4.6 10*3/uL Normal 4.4-11.0 [facility] Comment on above: Performed By: #### L 500.4050, L100.0500, L503.6005 #### [facility] [address] [place], [address] Carbon dioxide, total [Moles /volume] in Central venous bloodOrdered By: Carlos Dockery on 06-02-2024 CO2 [Moles/Vol] 23.8 mmol/L 21.0-32.0 [facility] Chloride assayOrdered By: Dallas Dockery on 06-02-2024 Chloride [Moles/Vol] 105 mmol/L 98-108 [facility] Comprehensive Metabolic Prof ilon 06-02-2024 Albumin [Mass/Vol] 3.9 g/dL Normal 3.5-5.0 [facility] Comment on above: Performed By: #### L 500.4050, L100.0500, L503.6005 #### [facility] [address] [place], [address] Albumin/Globulin [Mass ratio] 1.6 {ratio} Normal 0.9-2.4 [facility] Comment on above: Performed By: #### L 500.4050, L100.0500, L503.6005 #### [facility] [address] [place], [address] ALK PHOS 81 U/L Normal 35-104 [facility] Comment on above: Performed By: #### L 500.4050, L100.0500, L503.6005 #### [facility] [address] [place], [address] ALT [Catalytic activity/Vol] 28 U/L Normal <=34 [facility] Comment on above: Performed By: #### L 500.4050, L100.0500, L503.6005 #### [facility] [address] [place], [address] AST [Catalytic activity/Vol] 28 U/L Normal <=31 [facility] Comment on above: Performed By: #### L 500.4050, L100.0500, L503.6005 #### [facility] [address] [place], [address] Bilirubin [Mass/Vol] 0.23 mg/dL Normal 0.00-1.30 [facility] Comment on above: Performed By: #### L 500.4050, L100.0500, L503.6005 #### [facility] [address] [place], [address] BUN/CRE 17.7 RATIO Normal 10-20 [facility] Comment on above: Performed By: #### L 500.4050, L100.0500, L503.6005 #### [facility] [address] [place], [address] Calcium [Mass/Vol] 8.7 mg/dL Normal 7.6-11.0 [facility] Comment on above: Performed By: #### L 500.4050, L100.0500, L503.6005 #### [facility] [address] [place], [address] Chloride [Moles/Vol] 105 mmol/L Normal 98-108 [facility] Comment on above: Performed By: #### L 500.4050, L100.0500, L503.6005 #### [facility] [address] [place], [address] CO2 [Moles/Vol] 23.8 mmol/L Normal 21.0-32.0 [facility] Comment on above: Performed By: #### L 500.4050, L100.0500, L503.6005 #### [facility] [address] [place], [address] Creatinine [Mass/Vol] 0.65 mg/dL Low 0.70-1.20 [facility] Comment on above: Performed By: #### L 500.4050, L100.0500, L503.6005 #### [facility] [address] [place], [address] ECRCL 125.10 ml/min Normal 50-250 [facility] Comment on above: Performed By: #### L 500.4050, L100.0500, L503.6005 #### [facility] [address] [place], [address] GAP 9 Normal 5-15 [facility] Comment on above: Performed By: #### L 500.4050, L100.0500, L503.6005 #### [facility] [address] [place], [address] GFR/1.73 sq M.predicted among non-blacks MDRD (S/P/Bld) [Vol rate/Area] 111 mL/min/{1.73_m2} Normal >60 [facility] Comment on above: Result Comment: mL/m in/1.73m2 CKD-EPI Creatinine Equation (2020) Performed By: #### L 500.4050, L100.0500, L503.6005 #### [facility] [address] [place], [address] Globulin (S) [Mass/Vol] 2.4 g/dL Normal 2.2-4.2 [facility] Comment on above: Performed By: #### L 500.4050, L100.0500, L503.6005 #### [facility] [address] [place], [address] Glucose [Mass/Vol] 85 mg/dL Normal 70-99 [facility] Comment on above: Performed By: #### L 500.4050, L100.0500, L503.6005 #### [facility] [address] [place], [address] Potassium [Moles/Vol] 3.9 mmol/L Normal 3.3-5.1 [facility] Comment on above: Performed By: #### L 500.4050, L100.0500, L503.6005 #### [facility] [address] [place], [address] Sodium [Moles/Vol] 137 mmol/L Normal 133-145 [facility] Comment on above: Performed By: #### L 500.4050, L100.0500, L503.6005 #### [facility] [address] [place], [address] T PROT 6.4 g/dL Normal 5.9-8.4 [facility] Comment on above: Performed By: #### L 500.4050, L100.0500, L503.6005 #### [facility] [address] [place], [address] Urea nitrogen [Mass/Vol] 12 mg/dL Normal 4-19 [facility] Comment on above: Performed By: #### L 500.4050, L100.0500, L503.6005 #### [facility] [address] [place], [address] Emergency Department Summary on 06-02-2024 Emergency Department Summary [facility] Medical Records Department [address] [place] [address] Emergency Department Summary 06/02/24 MR#: [id number] Acct: [id number] Name: RAUL FLEMING Rep #: [id number] : 1980 43 From: Carlos Dockery MD PCP: Dr. Maira Escaimlla MD Status:REG ER Location: ED HPI History of Present Illness Chief Complaint: Wound Narrative Narrative: 43-year-old female states that she had plastic surgery on her pannus in March, approximately 3 months ago. This was performed by Dr. Sterling with the [facility] out of [place]. Since then, she has had areas of [...] and infections, she spiked a fever today. [facility] Medical History (Updated 06/02/24 @ 16:09 by [...] to look (more content not included)... Normal [facility] Erythrocyte distribution wid th (RBC) [Ratio]Ordered By: Carlos Dockery on 06-02-2024 Erythrocyte distribution width (RBC) [Entitic vol] 41.1 fL 35.1-43.9 [facility] Erythrocyte distribution wid th ratioOrdered By: Carlos Dockery on 06-02-2024 Erythrocyte distribution width (RBC) [Ratio] 12.5 % 11.6-14.6 [facility] Erythrocyte distribution wid th standard deviationOrdered By: Carlos Dockery on 06-02-2024 Erythrocyte distribution width (RBC) [Ratio] 41.1 fl 35.1-43.9 [facility] Estimation of creatinine janel aranceOrdered By: Carlos Dockery on 06-02-2024 Estimated Creatinine Clearance Calc 125.10 ml/min 50-250 [facility] GFR/1.73 sq M.predicted michelle g non-blacks MDRD (S/P/Bld) [Vol rate/Area]Ordered By: Carlos Dockery on 06-02-2024 Estimated GFR (MDRD) Non-Af Amer 111 >60 [facility] Comment on above: mL/min/1.73m2 CKD-EP I Creatinine Equation (2020) Glomerular filtration rate ( GFR) estimation/1.73 sq m using serum, plasma, or whole bOrdered By: Carlos Dockery on 06-02-2024 GFR/1.73 sq M.predicted among non-blacks MDRD (S/P/Bld) [Vol rate/Area] 111 mL/min/{1.73_m2} >60 [facility] Comment on above: mL/min/1.73m2 CKD-EP I Creatinine Equation (2020) Hematocrit Auto (Bld) [Volum e fraction]Ordered By: Carlos Dockery on 06-02-2024 Hematocrit (Bld) [Volume fraction] 35.2 % Low 37-47 [facility] Hemoglobin measurementOrdere d By: Carlos Dockery on 06-02-2024 Hemoglobin (Bld) [Mass/Vol] 11.7 g/dL Low 12.0-15.0 [facility] - Chemistry and C hemistry - challengeOrdered By: Carlos Dockery on 06-02-2024 AST [Catalytic activity/Vol] 28 U/L <32 [facility] Lactic Acidon 06-02-2024 Lactate [Moles/Vol] mmol/L Normal 0.0-2.0 [facility] Comment on above: Order Comment: Y Performed By: #### L 500.4050, L100.0500, L503.6005 #### [facility] [address] [place], [address] Lactic acid measurementOrder ed By: Carlos Dockery on 06-02-2024 Lactate [Moles/Vol] mmol/L 0.0-2.0 [facility] MCV (mean corpuscular volume ) determinationOrdered By: Carlos Dockery on 06-02-2024 MCV (RBC) [Entitic vol] 88.9 fL 81-99 [facility] Mean corpuscular hemoglobin (MCH) determinationOrdered By: Carlos Dockery on 06-02-2024 MCH (RBC) [Entitic mass] 29.5 pg 27.0-32.0 [facility] Mean corpuscular hemoglobin concentration (MCHC) determinationOrdered By: Carlos Dockery on 06-02-2024 MCHC (RBC) [Mass/Vol] 33.2 g/dL 32-36 [facility] Mean platelet volume determi nationOrdered By: Carlos Dockery on 06-02-2024 Platelet mean volume (Bld) [Entitic vol] 9.9 fL 6.2-12.0 [facility] Platelet countOrdered By: Dallas Dockery on 06-02-2024 Platelets (Bld) [#/Vol] 224 10*3/uL 150-450 [facility] Potassium (Unsp spec) [Mass/ Vol]Ordered By: Carlos Dockery on 06-02-2024 Potassium [Moles/Vol] 3.9 mmol/L 3.3-5.1 [facility] Potassium measurement (mass/ volume)Ordered By: Carlos Dockery on 06-02-2024 Potassium (Unsp spec) [Mass/Vol] 3.9 mmol/L 3.3-5.1 [facility] RBC Auto (Bld) [#/Vol]Ordere d By: Carlos Dockery on 06-02-2024 RBC (Bld) [#/Vol] 3.96 10*6/uL Low 4.2-5.4 [facility] Serum creatinine measurement (mass/volume)Ordered By: Carlos Dockery on 06-02-2024 Creatinine [Mass/Vol] 0.65 mg/dL Low 0.70-1.20 [facility] Serum globulin measurementOr dered By: Carlos Dockery on 06-02-2024 Globulin (S) [Mass/Vol] 2.4 g/dL 2.2-4.2 [facility] Serum glucose measurement (m ass/volume)Ordered By: Carlos Dockery on 06-02-2024 Glucose [Mass/Vol] 85 mg/dL 70-99 [facility] Serum or plasma alanine lazo otransferase (ALT) measurementOrdered By: Carlos Dockery on 06-02-2024 ALT [Catalytic activity/Vol] 28 U/L <35 [facility] Serum or plasma albumin shayna urement (mass/volume)Ordered By: Carlos Dockery on 06-02-2024 Albumin [Mass/Vol] 3.9 g/dL 3.5-5.0 [facility] Serum or plasma albumin/glob ulin mass ratioOrdered By: Carlos Dockery on 06-02-2024 Albumin/Globulin [Mass ratio] 1.6 {ratio} 0.9-2.4 [facility] Serum or plasma alkaline rojelio sphatase measurementOrdered By: Carlos Dockery on 06-02-2024 ALP [Catalytic activity/Vol] 81 U/L 35-104 [facility] Serum or plasma calcium shayna urement (mass/volume)Ordered By: Carlos Dockery on 06-02-2024 Calcium [Mass/Vol] 8.7 mg/dL 7.6-11.0 [facility] Serum or plasma urea nitroge n measurement (mass/volume)Ordered By: Carlos Sainzharvinder on 06-02-2024 Urea nitrogen [Mass/Vol] 12 mg/dL 4-19 [facility] Sodium levelOrdered By: Carlos Dockery on 06-02-2024 Sodium [Moles/Vol] 137 mmol/L 133-145 [facility] Total proteinOrdered By: Sendy Dockery on 06-02-2024 Protein [Mass/Vol] 6.4 g/dL 5.9-8.4 [facility] White blood cell (WBC) count Ordered By: Carlos Sainzharvinder on 06-02-2024 WBC (Bld) [#/Vol] 4.6 10*3/uL 4.4-11.0 [facility] CNPNon 06-01-2024 CNPN Telephone (RHODA) -- RAUL CHONG ([id number]) 1980 F Date Time Provider Department 06/01/24 JAE STERLING During your visit today, we recorded the following information about you: Rachna Lynn 06/01/2024 1:38 PM Signed Patient advising that she spiked a fever - 100.7. Patient is heading in to work. It is okay to leave advice/instructions on voice mail or to send a message via [employer]. Ladi Tierney 06/02/2024 12:10 PM Signed Patient calling to state her fever continues to rise, even after being on new medication for 24 hours. PT also feels lightheaded. PT unsure if she should go to the ER. Please return call to advise [phone] Adrienne Alan, RN 06/02/2024 1:21 PM Signed Returned patient's [...] Encounter Status:Closed by LADI TIERNEY on 06/02/24 [facility] 05-26-2024 CNPN Telephone (INTMST) -- RAUL CHONG ([id number]) 1980 F Date Time Provider Department 05/26/24 JAE STERLING INTMST During your visit today, we recorded the following information about you: Tomeka Vidal 05/26/2024 10:12 AM Signed Patient states abscess is back in the same spot has yellow discharge red and swollen please advise. Advised to send pictures Alexia Brian RN 05/26/2024 10:32 AM Signed Responded to patient photos via [employer] Tomeka Vidal 05/31/2024 9:36 AM Signed Patient [...] Encounter Status:Closed by ALEXIA BRIAN on 05/26/24 [facility] CNCOon 05-12-2024 CNCO Letter Text [facility] CNOVon 05-12-2024 CNOV Office Visit (PLASST ) -- ORQUIDEA CHONGRA Blanton ([id number]) 1980 F Date Time Provider Department 05/12/24 10:00 AM BONNY HENRY During your visit today, we recorded the following information about you: Bonny Henry APRN.WOODS MANAGER 05/12/2024 11:50 AM Signed Plastic Surgery Post [...] 4 weeks after surgery. 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 Do not [...] communicate thr (more content not included)... Normal [facility] CNCOon 04-14-2024 CNCO Letter Text Normal [facility] CNOVon 04-14-2024 CNOV Office Visit (PLASST ) -- RAUL CHONG ([id number]) 1980 F Date Time Provider Department 04/14/24 11:40 AM BONNY HENRY During your visit today, we recorded the following information about you: Bonny Henry APRN.WOODS MANAGER 04/14/2024 12:13 PM Addendum Plastic Surgery Post [...] 4 weeks after surgery. 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 Do not [...] may al (more content not included)... Normal [facility] [place] 04-05-2024 LANDON Telephone (RHODA) -- RAUL CHONG ([id number]) 1980 F Date Time Provider Department 04/05/24 [...] a nurse. Please return call to advise [phone] Alexia Brian, GEORGINA 04/06/2024 10:44 AM Addendum Patient states yesterday [...] disease in (more content not included)... Normal [facility] CNOVon 03-31-2024 CNOV Office Visit (PLASST ) -- RAUL CHONG ([id number]) 1980 F Date Time Provider Department 03/31/24 1:20 PM BONNY HENRY During your visit today, we recorded the following information about you: Bonny Henry APRN.WOODS MANAGER 03/31/2024 2:01 PM Signed Plastic Surgery Post [...] 4 weeks after surgery. 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 Do not [...] dry dr (more content not included)... Normal [facility] [place] 03-28-2024 CNPN Telephone (PLASMN) -- RAUL CHONG ([id number]) 1980 F Date Time Provider Department 03/28/24 FAMILIA CRUZ PLASMN During your visit today, we recorded the [...] Familia Cruz MD Plastic Surgery Resident (PGY-2) [phone] After 6 pm and on-weekends, please page [phone] (on-call plastic surgery) Allergies As of Date: 03/28/2024 Noted Allergy Reaction GABAPENTIN 04/13/2014 14 - Other: See Comments PREDNISONE 04/18/2015 1 - Mental Status Change LEXAPRO (ESCITALOPRAM) 02/22/2024 1 - Mental Status Change Comments: Severe moustapha TREE AND SHRUB POLLEN 07/22/2023 14 - Other: See Comments TOPAMAX (TOPIRAMATE) 12/12/2016 14 - Other: See Comments Comments: anxiety Date Reviewed: 03/26/2024 Reviewed by: Starr Ram APRN.WOODS MANAGER - Fully Assessed Reason for Visit: Wound [...] Gastroesophageal re (more content not included)... Normal [facility] CNOVon 03-26-2024 CNOV Office Visit (WSTR ) -- CHONGRAUL Harvinder ([id number]) 1980 F Date Time Provider Department 03/26/24 10:30 AM STARR RAM [facility] During your visit today, we recorded the following information about you: Temperature Pulse Respiration Blood pressure 97.4 degrees 84/minute 16/minute 112/64 Weight 83.6 kg Starr Ram APRN.WOODS MANAGER 03/26/2024 11:01 AM Signed Subjective The history is provided by the patient. No banbury operator was used. RAJINDER Kurtzra Harvinder Chong is a 43 year old [...] have confirmed and edited as necessary, the [facility] Review of Systems Constitutional: Negative for chills [...] in detail warranting prompt ER evaluation. Starr LeannaMELISSA lizarraga Tonya, APRN.CNP 03/26/2024 10:59 AM Signed Stretches Flexeril [...] Date Reviewed: 03/26/2024 Reviewed by: Starr Ram APRN.CNP - Fully Assessed Reason for Visit: Low [...] 1 ca (more content not included)... Normal [facility] CNOVon 03-24-2024 CNOV Office Visit (PLASST ) -- RAUL CHONG ([id number]) 1980 F Date Time Provider Department 03/24/24 [...] days Pain: control is good with medication. 06/13. Pt is taking Ultram and tylenol Drainage [...] 4 weeks after surgery. 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 Do not perform yard work. no core exercises for 6-8 weeks following abdominal surgery -Continue surgical bra, okay for soft bra/sports bra at 2 weeks, no underwire -Continue abdominal binder, compression garment- okay for spanx type garment -No water submersion/baths until a (more content not included)... Normal [facility] [place] 03-21-2024 CNPN Telephone (PLASST) -- RAUL CHONG ([id number]) 1980 F Date Time Provider Department 03/21/24 JAE STERLING During your visit today, we recorded the following information about you: Rachna Lynn 03/21/2024 11:12 AM Signed Having really bad [...] Visit: Nausea, stomach upset [Other] Patient Question [4214] Prescriptions as of 03/21/2024 - acetaminophen (TYLENOL) [...] due to (more content not included)... Normal [facility] ANES POSTPROC EVALon 025 ANES POSTPROC EVAL HNO ID: [id number] Author: LEEROY JOY MD Service: Anesthesiology Author Type: Anesthesiologist Type: Anesthesia Postprocedure Evaluation Filed: 03/14/2024 10:59 Note Text: POST ANESTHESIA EVALUATION NOTE : 1980 Procedure Summary Date: 03/14/24 Room / Location: [address] Anesthesia Start: 0756 Anesthesia Stop: 1032 Procedure: PANNICULECTOMY (Abdomen) Diagnosis: Abdominal pannus Loose [...] with this procedure. Documented by Yemi Jarvis APRN.INSIGHTS STRATEGIST 03/14/2024 10:32 AM EST SIGNATURE: Leeroy Joy MD PATIENT NAME: Raul Chong DATE: March 14, 2024 TIME: 10:59 AM CSN: [id number] Normal [facility] ANES PRE-OPon 03-14-2024 ANES PRE-OP HNO ID: [id number] Author: LEERYO JOY MD Service: Anesthesiology Author Type: Anesthesiologist Type: Anesthesia Preprocedure Evaluation Filed: 03/14/2024 07:10 Note Text: ANESTHESIOLOGY DAY OF SURGERY NOTE : 1980 Procedure Information Date/Time: 03/14/24729 Procedure: PANNICULECTOMY (Abdomen) Location: [place] [address] / [facility] Surgeons: Jae Sterling MD Estimated body mass [...] and consent discussed: yes. Patient / Responsible Libertarian agrees to proceed: yes Patient / Surrogate [...] March 14, 2024 TIME: 7:09 AM CSN: [id number] [facility] BRIEF OP NOTon 03-14-2024 BRIEF OP NOT HNO ID: [id number] Author: LACI BOOKER MD Service: Plastic Surgery Author Type: Resident Type: Brief Op Note Filed: 03/14/2024 10:18 Note Text: PLASTIC AND RECONSTRUCTIVE SURGERY BRIEF OPERATIVE NOTE LOG ID: [id number] Surgery/Procedure Date: 03/14/2024 Incision/Procedure Start Time: 8:19 AM Incision Close/Procedure End Time: 10:14 AM Surgeon(s)/Proceduralist(s ) and Dealership Manager(s): Surgeons and Role: * Jae Sterling MD [...] 14, 2024 TIME: 10:17 AM PAGER/CONTACT #: [phone] [facility] HISTORY PHYSICALon HISTORY PHYSICAL HNO ID: [id number] Author: JAE STERLING MD Service: Plastic Surgery Author Type: Resident Type: H&P Filed: 03/18/2024 10:06 Note Text: -- Attestation signed by Jae Sterling MD at 03/18/2024 10:06 AM UPDATED HISTORY AND PHYSICAL EXAMINATION SERVICE DATE: 03/14/2024 Participation of a fellow, resident, medical student, or advanced practice provider student in performing the sensitive examination was discussed with the patient or authorized medical customer service representative. The patient or authorized medical customer service representative has agreed to proceed with the [...] Laci Booker MD, MPH Plastic Surgery P: [phone] After 6 pm and on-weekends, please page [phone] (on-call plastic surgery) Normal [facility] OPERATIVE NOon 03-14-2024 OPERATIVE NO HNO ID: [id number] Author: JAE STERLING MD Service: Plastic Surgery Author Type: Physician Type: Operative Report Filed: 03/14/2024 15:17 Note Text: PLASTIC SURGERY--OPERATIVE REPORT LOG ID: [id number] Surgery/Procedure Date: 03/14/2024 Incision/Procedure Start Time: 8:19 AM Incision Close/Procedure End Time: 10:14 AM Surgeon(s)/Proceduralist(s ) and Dealership Manager(s): Surgeons and Role: * Jae Sterling MD [...] to surgical pathology. Drains: x 1 (15 Kisw[place]ili Shay) Complications: None. Disposition: To recovery room [...] 2024 TIME: 3:12 PM PAGER/CONTACT #: Normal [facility] SURGICAL PATHOLOGYon 025 CASE REPORT Normal [facility] Comment on above: Order Comment: Speci men Type: TISSUE SPECIMENOrdering Facility: [facility] Address: [address] [place] [address] Result Comment: Surg [facility] Pathology Report Case: [id number] Authorizing Provider: Jae Sterling MD Collected: 03/14/2024 08:53 AM Ordering Location: Ambulatory Surgery Received: 03/14/2024 10:00 AM Pathologist: Jesus Singh MD Specimen: Pannus, Abdomen pannus Performed By: #### S ####[facility] LABCLIA [id number] [place] [id number] [place] CLINICAL HISTORY Normal [facility] Comment on above: Order Comment: Speci men Type: TISSUE SPECIMENOrdering Facility: [facility] Address: [address] [place], [place] [id number] Result Comment: Pre- op diagnosis: Abdominal pannus [E65] Loose skin [L98.7] Rash [R21] Dermatitis [L30.9] Intertrigo [L30.4] Performed By: #### S ####[facility] LABCLIA [id number] [place] [address] [place] FINAL DIAGNOSIS Normal [facility] Comment on above: Order Comment: Speci men Type: TISSUE SPECIMENOrdering Facility: [facility] Address: [address] [place] [address] Result Comment: Soft tissue, abdominal pannus, resection: - Skin with abundant subcutaneous adipose tissue. Performed By: #### S ####[facility] LABCLIA [id number] [address] [place] FINAL PERFORMING LAB Normal [facility] Comment on above: Order Comment: Speci men Type: TISSUE SPECIMENOrdering Facility: [facility] Address: [address] [place] [address] Result Comment: Diag nostic interpretation performed at: [facility], [address] [id number] CLIA# [id number] Box Truck Washer: Patrick Smith MD Performed By: #### S ####[facility] LABCLIA [id number] [address] [place] GROSS DESCRIPTION A. Pannus Normal [facility] Comment on above: Order Comment: Speci men Type: TISSUE SPECIMENOrdering Facility: [facility] Address: [address] [place] [address] Result Comment: Rece ived in formalin, labeled abdomen pannus, is a 2129.1 g, 47 x 19.5 x 4.5 cm aggregate of unoriented yellow-pink, lobulated, fibrofatty tissue segments with attached sapp wrinkled skin. The skin surface is grossly unremarkable. Sectioning reveals approximately 75% fatty breast tissue with approximately 25% dense white-pink fibrous tissue. No lesions are identified. Sweat Box Attendant sections to include skin are submitted in A1. ROBERT March 14, 2024 4:32 PM Gross examination performed at [facility], [address] [place] [address] Performed By: #### S ####[facility] LABCLIA [id number] [place] [address] [place] NICOTINE/COTININEOrdered By: Nabor Cheatham on 03-13-2024 Cotinine [Mass/Vol] ng/mL NINF - 2 ng/mL [facility] Comment on above: Active tobacco produ [...] and its performance characteristics determined by the [facility] Department of Pathology and Laboratory Medicine. It has not been cleared or approved by the FDA. The [facility] Department of Pathology and Laboratory Medicine is regulated under CLIA as qualified to perform high-complexity testing. This test is used for clinical purposes. It should not be regarded as investigational or for research. Interpretation and review of laboratory results Normal [facility] Nicotine [Mass/Vol] ng/mL NINF - 2 ng/mL [facility] CNOVon 03-10-2024 CNOV Office Visit (PLASST ) -- RAUL CHONG ([id number]) 1980 F Date Time Provider Department 03/10/24 [...] positive with influenza A [facility]. HISTORIES PAST MEDICAL HISTORY [...] History and (more content not included)... Normal [facility] NICOTINE/COTININEon 03-10-19 25 Cotinine [Mass/Vol] <2 Normal <2 [facility] Comment on above: Order Comment: Speci men Type: BLOOD SPECIMEN Ordering Facility: [facility] Address: [address] [place] [address] Result Comment: Acti ve tobacco product user: [...] and its performance characteristics determined by the [facility] Department of Pathology and Laboratory Medicine. It has not been cleared or approved by the FDA. The [facility] Department of Pathology and Laboratory Medicine is regulated under CLIA as qualified to perform high-complexity testing. This test is used for clinical purposes. It should not be regarded as investigational or for research. Performed By: #### N ICOT #### [facility] CLIA [id number] [address] [place] [address] [place] Nicotine [Mass/Vol] <2 Normal <2 [facility] Comment on above: Order Comment: Speci men Type: BLOOD SPECIMEN Ordering Facility: [facility] Address: [address] [place] [address] Performed By: #### N ICOT #### [facility] CLIA [id number] [address] [place], [place] [id number] [place] Orthopedic Visit Reporton Orthopedic Visit Report [facility] [place] [address] OFFICE VISIT Date of Service: 03/08/24 MR#: [id number] Acct: [id number] Name: RAUL FLEMING DIANNA Rep #: [id number] : 1980 Provider: FRANCISCO Atkinson Age/Sex: 43/F [place] [facility] [place] Status: Signed Intake Vital Signs 09/02/23 01:09 03/08/24 10:34 Height 91 ft 8.4 in 5 ft 8 in Weight: 184 lb 4 oz BMI 28.0 Intake Visit Reasons: CERVICAL SPINE Accompanied by: Self Allergies gabapentin (From Neurontin) Allergy (Verified 09/02/23 01:17) Swelling topiramate (From Topamax) Adverse Reaction (Mild, Verified 09/02/23 01:17) TINGLING prednisone Adverse Reaction (Verified 09/02/23 01:17) Other [facility] Medical History (Updated 03/08/24 @ 12:31 by [...] service provided and the decisions made by , FRANCISCO Atkinson 03/08/24 1033. Part of today???s visit was documented by Giselle LOPEZ, acting as scribe. RAUL FLEMING is a 43 year old F NEW patient here today for neck pain. She has been having neck pain for about 5 months. She denies injury or previous surgery on the neck. Patient did have an MRI of her neck done at [facility] that was done on 02/08/24. She does [...] her neck 5 years ago which didn't cook 3 pastry her any relief but didn't make it [...] pen and her phone. Says that her vocal performer strength as worsened. She states that one [...] the upper extremities shows 4+ power left vocal performer strength, all other muscle groups show 5 [...] initial encounter Plan Reviewed prior imaging from [facility]. Cervical xrays shows straightening of normal cervical [...] another surgery. 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 She says if she does decide to have the surgery would be (more content not included)... Normal [facility] 03-02-2024 LANDON Telephone (SAMIR) -- RAUL CHONG ([id number]) 1980 F Date Time Provider Department 03/02/24 MARY MOURA During your visit today, we recorded the following information about you: Mary Moura APRN.WOODS MANAGER 03/02/2024 9:48 AM Signed FYI. Pt was seen for PACC and cleared but pt recently positive with influenza A 02/28/20[facility]. Pt is scheduled for Panniculectomy 03/14/2024 in [place]. Please advise if okay to proceed? Allergies [...] Comments: anxiety Date Reviewed: 02/28/2024 Reviewed by: Quique, Makayla, WIRE WEAVER - Fully Assessed Reason for Visit: Pre-op [...] Encounter Status:Closed by MARY MOURA on 07/14/24 [facility] CNOVon 02-28-2024 CNOV Office Visit (UCTR ) -- RAUL CHONG ([id number]) 1980 F Date Time Provider Department 02/28/24 2:30 PM OCTAVIANO AYOUB [facility] During your visit today, we recorded the following information about you: Temperature Pulse Respiration Blood pressure 100.4 degrees 84/minute 22/minute 103/69 Weight Last Period 82 kg 02/26/24 Octaviano Ayoub PA 02/28/2024 3:02 PM Signed This note was created using NoteWriter. Subjective [...] labs e (more content not included)... Normal [facility] INFLUENZA A&B MOLECULAR (POC )on 02-28-2024 Flu A (POCT) Positive Abnormal Negative [facility] Comment on above: Location:[address], [address] Interpretation and review of laboratory results Abnormal [facility] Procedural Control Valid [facility] Location:[facility], [address], [place], [address] [facility] POINT OF CARE [facility] Michael 02-23-2024 CNPN Telephone (TY) -- RAUL CHONG ([id number]) 1980 F Date Time Provider Department 02/23/24 ROLA UMANZOR During your visit today, we recorded the following information about you: Rola Umanzor MSW 02/23/2024 11:10 AM Signed David left message for patient to return call to discuss housing resource needs. Rola Umanzor MSW 02/25/2024 1:01 PM Signed David spoke with patient and she reports [...] Date Reviewed: 02/22/2024 Reviewed by: Anna Nino APRN.WOODS MANAGER - Fully Assessed Prescriptions as of 02/25/2024 [...] Encounter Status:Closed by ROLA UMANZOR on 02/25/24 [facility] CNOVon 02-22-2024 CNOV Office Visit (FAMPWS ) -- RAUL CHONG ([id number]) 1980 F Date Time Provider Department 02/22/24 12:40 PM [facility] During your visit today, we recorded the following information about you: Pulse Respiration Blood pressure Weight 69/minute 16/minute 128/72 83 kg Anna Nino, BURN OUT TENDER LACE.WOODS MANAGER 02/22/2024 12:58 PM Signed This is a [...] ICD9: V60.0, ICD10: Z59.00 (primary diagnosis) Consult geriatric social work professor for help with housing - PRIMARY CARE [...] as needed for worsening/no improvement. Anna Nino APRN.Anna Su APRN.FATEMEH 02/22/2024 12:57 PM Addendum - PRIMARY CARE [...] Mental Sta (more content not included)... Normal [facility] Michael 02-22-2024 LANDON Telephone (FAMPWS) -- RAUL CHONG ([id number]) 1980 F Date Time Provider Department 02/22/24 MAIRA ESCAMILLA During your visit today, we recorded [...] Date Reviewed: 02/15/2024 Reviewed by: Mary Moura APRN.WOODS MANAGER - Fully Assessed Reason for Visit: Future [...] Status:Closed by MARIETTA HARMAN on 02/22/24 Normal [facility] Comprehensive metabolic 2000 panelon 02-16-2024 Albumin [Mass/Vol] 4.0 g/dL 3.9 - 4.9 g/dL [facility] ALP [Catalytic activity/Vol] 77 U/L 34 - 123 U/L [facility] ALT [Catalytic activity/Vol] 23 U/L 7 - 38 U/L [facility] Anion gap [Moles/Vol] 11 mmol/L 8 - 15 mmol/L [facility] AST [Catalytic activity/Vol] 26 U/L 13 - 35 U/L [facility] Bilirubin [Mass/Vol] 0.3 mg/dL 0.2 - 1 .3 mg/dL [facility] Calcium [Mass/Vol] 8.9 mg/dL 8.5 - 10. 2 mg/dL [facility] Chloride [Moles/Vol] 104 mmol/L 98 - 10 7 mmol/L [facility] CO2 [Moles/Vol] 22 mmol/L 22 - 30 mmol/L [facility] Creatinine [Mass/Vol] 0.80 mg/dL 0.58 - 0.96 mg/dL [facility] GFR/1.73 sq M.predicted among non-blacks MDRD (S/P/Bld) [Vol rate/Area] 93 mL/min/{1.73_m2} - PINF [facility] Comment on above: Estimated Glomerular Filtration [...] [Mass/Vol] 82 mg/dL 74 - 99 mg/dL [facility] Comment on above: The [place] Diab[employer] s Association (ADA) provides guidance for [...] Standards of Medical Care in Diabetes 2016, [place] [employer] Association. Diabetes Care. 2016.39(Suppl 1). Interpretation and review of laboratory results Normal [facility] Potassium [Moles/Vol] 4.6 mmol/L 3.7 - 5.1 mmol/L [facility] Protein [Mass/Vol] 6.7 g/dL 6.3 - 8.0 g/dL [facility] Sodium [Moles/Vol] 137 mmol/L 136 - 144 mmol/L [facility] Urea nitrogen [Mass/Vol] 15 mg/dL 7 - 21 mg/dL [facility] CBC W Auto Differential pane l (Bld)on 02-15-2024 Basophils (Bld) [#/Vol] 0.04 10*3/uL [facility] Basophils/100 WBC (Bld) 0.7 % [facility] Differential cell count method Nom (Bld) Auto [facility] Eosinophils (Bld) [#/Vol] 0.34 10*3/uL [facility] Eosinophils/100 WBC (Bld) 5.9 % [facility] Erythrocyte distribution width (RBC) [Ratio] 13.1 % 11.5 - 15.0 % [facility] Hematocrit (Bld) [Volume fraction] 38.3 % 36.0 - 46.0 % [facility] Hemoglobin (Bld) [Mass/Vol] 12.5 g/dL 11.5 - 15.5 g/dL [facility] Immature granulocytes (Bld) [#/Vol] [facility] Immature granulocytes/100 WBC (Bld) 0.2 % [facility] Lymphocytes (Bld) [#/Vol] 2.08 10*3/uL [facility] Lymphocytes/100 WBC (Bld) 36.1 % [facility] MCH (RBC) [Entitic mass] 28.8 pg 26.0 - 34.0 pg [facility] MCHC (RBC) [Mass/Vol] 32.6 g/dL 30.5 - 36.0 g/dL [facility] MCV (RBC) [Entitic vol] 88.2 fL 80.0 - 100.0 fL [facility] Monocytes (Bld) [#/Vol] 0.53 10*3/uL [facility] Monocytes/100 WBC (Bld) 9.2 % [facility] Neutrophils (Bld) [#/Vol] 2.76 10*3/uL [facility] Neutrophils/100 WBC (Bld) 47.9 % [facility] Nucleated RBC (Bld) [#/Vol] [facility] Nucleated RBC/100 WBC (Bld) [Ratio] 0.0 % /100 WBC [facility] Platelet mean volume (Bld) [Entitic vol] 10.5 fL 9.0 - 12.7 fL [facility] Platelets (Bld) [#/Vol] 233 10*3/uL [facility] RBC (Bld) [#/Vol] 4.34 10*6/uL 3.90 - 5.20 m/uL [facility] WBC (Bld) [#/Vol] 5.76 10*3/uL [facility] Basophils (Bld) [#/Vol] 0.04 10*3/uL Normal <0.11 [facility] Comment on above: Order Comment: Speci men Type: BLOOD SPECIMEN Ordering Facility: [facility] Address: [address] [place] [address] Performed By: #### 5 7021-8 #### [facility] CLIA [id number] [address] [place] [address] [place] Basophils/100 WBC (Bld) 0.7 % Normal [facility] Comment on above: Order Comment: Speci men Type: BLOOD SPECIMEN Ordering Facility: [facility] Address: [address] [place] [address] Performed By: #### 5 7021-8 #### [facility] CLIA [id number] [address] [place] [address] [place] Differential cell count method Nom (Bld) Auto Normal [facility] Comment on above: Order Comment: Speci men Type: BLOOD SPECIMEN Ordering Facility: [facility] Address: [address] [place] [address] Performed By: #### 5 7021-8 #### [facility] CLIA [id number] [address] [place] [address] [place] Eosinophils (Bld) [#/Vol] 0.34 10*3/uL Normal <0.46 [facility] Comment on above: Order Comment: Speci men Type: BLOOD SPECIMEN Ordering Facility: [facility] Address: [address] [place] [address] Performed By: #### 5 7021-8 #### [facility] CLIA [id number] [address] [place] [address] [place] Eosinophils/100 WBC (Bld) 5.9 % Normal [facility] Comment on above: Order Comment: Speci men Type: BLOOD SPECIMEN Ordering Facility: [facility] Address: [address] [place] [address] Performed By: #### 5 7021-8 #### [facility] CLIA [id number] [address] [place] [address] [place] Erythrocyte distribution width (RBC) [Ratio] 13.1 % Normal 11.5-15.0 [facility] Comment on above: Order Comment: Speci men Type: BLOOD SPECIMEN Ordering Facility: [facility] Address: [address] [place] [address] Performed By: #### 5 7021-8 #### [facility] CLIA [id number] [address] [place] [address] [place] Hematocrit (Bld) [Volume fraction] 38.3 % Normal 36.0-46.0 [facility] Comment on above: Order Comment: Speci men Type: BLOOD SPECIMEN Ordering Facility: [facility] Address: [address] [place] [address] Performed By: #### 5 7021-8 #### [facility] CLIA [id number] [address] [place] [address] [place] Hemoglobin (Bld) [Mass/Vol] 12.5 g/dL Normal 11.5-15.5 [facility] Comment on above: Order Comment: Speci men Type: BLOOD SPECIMEN Ordering Facility: [facility] Address: [address] [place] [address] Performed By: #### 5 7021-8 #### [facility] CLIA [id number] [address] [place] [address] [place] Immature granulocytes (Bld) [#/Vol] 10*3/uL Normal <0.10 [facility] Comment on above: Order Comment: Speci men Type: BLOOD SPECIMEN Ordering Facility: [facility] Address: [address] [place] [address] Performed By: #### 5 7021-8 #### [facility] CLIA [id number] [address] [place] [address] [place] Immature granulocytes/100 WBC (Bld) 0.2 % Normal [facility] Comment on above: Order Comment: Speci men Type: BLOOD SPECIMEN Ordering Facility: [facility] Address: [address] [place] [address] Performed By: #### 5 7021-8 #### [facility] CLIA [id number] [address] [place] [address] [place] Lymphocytes (Bld) [#/Vol] 2.08 10*3/uL Normal 1.00-4.00 [facility] Comment on above: Order Comment: Speci men Type: BLOOD SPECIMEN Ordering Facility: [facility] Address: [address] [place] [address] Performed By: #### 5 7021-8 #### [facility] CLIA [id number] [address] [place] [address] [place] Lymphocytes/100 WBC (Bld) 36.1 % Normal [facility] Comment on above: Order Comment: Speci men Type: BLOOD SPECIMEN Ordering Facility: [facility] Address: [address] [place] [address] Performed By: #### 5 7021-8 #### [facility] CLIA [id number] [address] [place] [address] [place] MCH (RBC) [Entitic mass] 28.8 pg Normal 26.0-34.0 [facility] Comment on above: Order Comment: Speci men Type: BLOOD SPECIMEN Ordering Facility: [facility] Address: [address] [place] [address] Performed By: #### 5 7021-8 #### [facility] CLIA [id number] [address] [place] [address] [place] MCHC (RBC) [Mass/Vol] 32.6 g/dL Normal 30.5-36.0 [facility] Comment on above: Order Comment: Speci men Type: BLOOD SPECIMEN Ordering Facility: [facility] Address: [address] [place] [address] Performed By: #### 5 7021-8 #### [facility] CLIA [id number] [address] [place] [address] [place] MCV (RBC) [Entitic vol] 88.2 fL Normal 80.0-100.0 [facility] Comment on above: Order Comment: Speci men Type: BLOOD SPECIMEN Ordering Facility: [facility] Address: [address] [place] [address] Performed By: #### 5 7021-8 #### [facility] CLIA [id number] [address] [place] [address] [place] Monocytes (Bld) [#/Vol] 0.53 10*3/uL Normal <0.87 [facility] Comment on above: Order Comment: Speci men Type: BLOOD SPECIMEN Ordering Facility: [facility] Address: [address] [place] [address] Performed By: #### 5 7021-8 #### [facility] CLIA [id number] [address] [place] [address] [place] Monocytes/100 WBC (Bld) 9.2 % Normal [facility] Comment on above: Order Comment: Speci men Type: BLOOD SPECIMEN Ordering Facility: [facility] Address: [address] [place] [address] Performed By: #### 5 7021-8 #### [facility] CLIA [id number] [address] [place] [address] [place] Neutrophils (Bld) [#/Vol] 2.76 10*3/uL Normal 1.45-7.50 [facility] Comment on above: Order Comment: Speci men Type: BLOOD SPECIMEN Ordering Facility: [facility] Address: [address] [place] [address] Performed By: #### 5 7021-8 #### [facility] CLIA [id number] [address] [place] [address] [place] Neutrophils/100 WBC (Bld) 47.9 % Normal [facility] Comment on above: Order Comment: Speci men Type: BLOOD SPECIMEN Ordering Facility: [facility] Address: [address] [place] [address] Performed By: #### 5 7021-8 #### [facility] CLIA [id number] [address] [place] [address] [place] Nucleated RBC (Bld) [#/Vol] 10*3/uL Normal <0.01 [facility] Comment on above: Order Comment: Speci men Type: BLOOD SPECIMEN Ordering Facility: [facility] Address: [address] [place] [address] Performed By: #### 5 7021-8 #### [facility] CLIA [id number] [address] [place] [address] [place] Nucleated RBC/100 WBC (Bld) [Ratio] 0.0 /100 WBC Normal [facility] Comment on above: Order Comment: Speci men Type: BLOOD SPECIMEN Ordering Facility: [facility] Address: [address] [place] [address] Performed By: #### 5 7021-8 #### [facility] CLIA [id number] [address] [place] [address] [place] Platelet mean volume (Bld) [Entitic vol] 10.5 fL Normal 9.0-12.7 [facility] Comment on above: Order Comment: Speci men Type: BLOOD SPECIMEN Ordering Facility: [facility] Address: [address] [place] [address] Performed By: #### 5 7021-8 #### [facility] CLIA [id number] [address] [place] [address] [place] Platelets (Bld) [#/Vol] 233 10*3/uL Normal 150-400 [facility] Comment on above: Order Comment: Speci men Type: BLOOD SPECIMEN Ordering Facility: [facility] Address: [address] [place] [address] Performed By: #### 5 7021-8 #### [facility] CLIA [id number] [address] [place] [address] [place] RBC (Bld) [#/Vol] 4.34 10*6/uL Normal 3.90-5.20 [facility] Comment on above: Order Comment: Speci men Type: BLOOD SPECIMEN Ordering Facility: [facility] Address: [address] [place] [address] Performed By: #### 5 7021-8 #### [facility] CLIA [id number] [address] [place] [address] [place] WBC (Bld) [#/Vol] 5.76 10*3/uL Normal 3.70-11.00 [facility] Comment on above: Order Comment: Speci men Type: BLOOD SPECIMEN Ordering Facility: [facility] Address: [address] [place] [address] Performed By: #### 5 7021-8 #### [facility] CLIA [id number] [address] [place] [address] [place] [facility] 02-15-2024 LANDON Telephone (SAMIR) -- TORIEMOIRAUL Harvinder ([id number]) 1980 F Date Time Provider Department 02/15/24 MARY MOURA During your visit today, we recorded the following information about you: Nroma Mcnamara LPN 02/15/2024 3:46 PM Signed Patient was scheduled for in person PACC appt at 3:20pm today. Patient did not check in for appt, called patient at [facility] to see if they were planning on [...] Status:Closed by NORMA MCNAMARA on 02/15/24 Normal [facility] Comprehensive metabolic 2000 panelon 02-15-2024 Albumin [Mass/Vol] 4.0 g/dL Normal 3.9-4.9 [facility] Comment on above: Order Comment: Speci men Type: BLOOD SPECIMEN Ordering Facility: [facility] Address: [address] [place] [address] Performed By: #### 2 4323-8 #### [facility] CLIA [id number] [address] [place] [address] [place] ALP [Catalytic activity/Vol] 77 U/L Normal 34-123 [facility] Comment on above: Order Comment: Speci men Type: BLOOD SPECIMEN Ordering Facility: [facility] Address: [address] [place] [address] Performed By: #### 2 4323-8 #### [facility] CLIA [id number] [address] [place] [address] [place] ALT [Catalytic activity/Vol] 23 U/L Normal 7-38 [facility] Comment on above: Order Comment: Speci men Type: BLOOD SPECIMEN Ordering Facility: [facility] Address: [address] [place] [address] Performed By: #### 2 4323-8 #### [facility] CLIA [id number] [address] [place] [address] [place] Anion gap [Moles/Vol] 11 mmol/L Normal 8-15 [facility] Comment on above: Order Comment: Speci men Type: BLOOD SPECIMEN Ordering Facility: [facility] Address: [address] [place] [address] Performed By: #### 2 4323-8 #### [facility] CLIA [id number] [address] [place] [address] [place] AST [Catalytic activity/Vol] 26 U/L Normal 13-35 [facility] Comment on above: Order Comment: Speci men Type: BLOOD SPECIMEN Ordering Facility: [facility] Address: [address] [id number] Performed By: #### 2 4323-8 #### [facility] CLIA [id number] [address] [place] [address] [place] Bilirubin [Mass/Vol] 0.3 mg/dL Normal 0.2-1.3 [facility] Comment on above: Order Comment: Speci men Type: BLOOD SPECIMEN Ordering Facility: [facility] Address: [address] [place] [address] Performed By: #### 2 4323-8 #### [facility] CLIA [id number] [address] [place] [address] [place] Calcium [Mass/Vol] 8.9 mg/dL Normal 8.5-10.2 [facility] Comment on above: Order Comment: Speci men Type: BLOOD SPECIMEN Ordering Facility: [facility] Address: [address] [place], [place] [address] Performed By: #### 2 4323-8 #### [facility] CLIA [id number] [address] [place] [address] [place] Chloride [Moles/Vol] 104 mmol/L Normal 98-107 [facility] Comment on above: Order Comment: Speci men Type: BLOOD SPECIMEN Ordering Facility: [facility] Address: [address] [place] [address] Performed By: #### 2 4323-8 #### [facility] CLIA [id number] [address] [place] [address] [place] CO2 [Moles/Vol] 22 mmol/L Normal 22-30 [facility] Comment on above: Order Comment: Speci men Type: BLOOD SPECIMEN Ordering Facility: [facility] Address: [address] [place], [place] [address] Performed By: #### 2 4323-8 #### [facility] CLIA [id number] [address] [place] [address] [place] Creatinine [Mass/Vol] 0.80 mg/dL Normal 0.58-0.96 [facility] Comment on above: Order Comment: Naa covarrubias Type: BLOOD SPECIMEN Ordering Facility: [facility] Address: [address] [place] [address] Performed By: #### 2 4323-8 #### [facility] CLIA [id number] [address] [place] [address] [place] Creatinine and Glomerular filtration rate.predicted panel (S/P/Bld) 93 mL/min/1.73m??? Normal >=60 [facility] Comment on above: Order Comment: Naa covarrubias Type: BLOOD SPECIMEN Ordering Facility: [facility] Address: [address] [place] [address] Result Comment: Lala mated Glomerular Filtration Rate [...] GFR. Performed By: #### 2 4323-8 #### [facility] CLIA [id number] [address] [place] [address] [place] Glucose [Mass/Vol] 82 mg/dL Normal 74-99 [facility] Comment on above: Order Comment: Naa covarrubias Type: BLOOD SPECIMEN Ordering Facility: [facility] Address: [address] [place] [address] Result Comment: The [place] Diabetes Association (ADA) provides guidance for cutoff [...] Standards of Medical Care in Diabetes 2016, [place] [employer] Association. Diabetes Care. 2016.39(Suppl 1). Performed By: #### 2 4323-8 #### [facility] CLIA [id number] [address] [place] [address] [place] Potassium [Moles/Vol] 4.6 mmol/L Normal 3.7-5.1 [facility] Comment on above: Order Comment: Speci men Type: BLOOD SPECIMEN Ordering Facility: [facility] Address: [address] [place] [address] Performed By: #### 2 4323-8 #### [facility] CLIA [id number] [address] [place] [address] [place] Protein [Mass/Vol] 6.7 g/dL Normal 6.3-8.0 [facility] Comment on above: Order Comment: Speci men Type: BLOOD SPECIMEN Ordering Facility: [facility] Address: [address] [place] [address] Performed By: #### 2 4323-8 #### [facility] CLIA [id number] [address] [place] [address] [place] Sodium [Moles/Vol] 137 mmol/L Normal 136-144 [facility] Comment on above: Order Comment: Speci men Type: BLOOD SPECIMEN Ordering Facility: [facility] Address: [address] [place] [address] Performed By: #### 2 4323-8 #### [facility] CLIA [id number] [address] [place] [address] [place] Urea nitrogen [Mass/Vol] 15 mg/dL Normal 7-21 [facility] Comment on above: Order Comment: Speci men Type: BLOOD SPECIMEN Ordering Facility: [facility] Address: [address] [place], [place] [address] Performed By: #### 2 4323-8 #### [facility] CLIA [id number] [address] [place] [address] [place] HISTORY PHYSICALon HISTORY PHYSICAL HNO ID: [id number] Author: MARY MOURA APRN.FATEMEH Service: ? Author Type: Nurse Practitioner [...] large neck Non-male patient STOP-Bang Score: 0 [id number] Score: Age: <65 Sex: female CHF history: No Hypertension history: No Stroke/TIA/thromboembolism history: No Vascular disease history: No Diabetes history: No [id number] Score: 1 ARISCAT Score: Age: <=50 Preoperative [...] Imm Admin: COVID-19 vaccine, age 12+ yr ([facility]) 04/26/2020 Imm Admin: COVID-19 original vaccine, age 12+ yr, monovalent ([facility] - PURPLE TOP) Only the first 3 history entries have been loaded, but more histor (more content not included)... Normal [facility] CNOVon 11-27-2023 CNOV Office Visit ([facility] ) -- RAUL CHONG ([id number]) 1980 F Date Time Provider Department 11/27/23 9:00 AM JAE STERLING [facility] During your visit today, we recorded the [...] discussed with the Patient or Patient's Authorized Sweat Box Attendant. As applicable, any other physician, advance practice provider, medical student, or other health professional student that will be observing or involved in the sensitive examination for educational or training purposes was discussed with the Patient or Authorized Sweat Box Attendant. The Patient or Authorized Sweat Box Attendant has agreed to proceed with the sensitive examination. (Sensitive examination includes inspection and/or palpation of the breasts (more content not included)... Normal [facility] 11-17-2023 FATEMEH Telephone (RHODA) -- RAUL CHONG ([id number]) 1980 F Date Time Provider Department 11/17/23 BONNY HENRY During your visit today, we recorded the following information about you: Rachna Lynn 11/17/2023 3:02 PM Signed Patient calling with Authorization Code for surgery: [place] [employer] [id number] Jessica Desir 11/23/2023 12:39 PM Signed Patient calling back as she has not heard anything from the Plastic Surgery Department since she sent the insurance authorization code. She needs to get her surgery scheduled in either November or December, if possible due to insurance. She can be reached at [phone]. Allergies As of Date: 11/17/2023 Noted Allergy Reaction GABAPENTIN 04/13/2014 14 - Other: See Comments PREDNISONE 04/18/2015 1 - Mental Status Change TREE AND SHRUB POLLEN 07/22/2023 14 - Other: See Comments TOPAMAX (TOPIRAMATE) 12/12/2016 14 - Other: See Comments Comments: anxiety Date Reviewed: 10/30/2023 Reviewed by: Concha Moreno LPN - Fully Assessed Reason for Visit: Insurance Authorization [[id number]] Prescriptions as of 06/13/2024 - amoxicillin-clavulanate potassium [...] Encounter Status:Closed by RACHNA LYNN on 06/13/24 [facility] Surya 10-30-2023 CNOV Office Visit (PAULINEPWS ) -- RAUL CHONG Harvinder ([id number]) 1980 F Date Time Provider Department 10/30/23 4:40 PM MAIRA ESCAMILLA During your visit today, we recorded [...] Reason for visit: Chest pain/headaches. Which facility: [facility] Date of visit: 08/19-08/21/23 Diagnosis: Acute [...] PAST SURGICA (more content not included)... Normal [facility] -- RAUL CHONG ([id number]) 1980 F Date Time Provider Department 10/28/23 [facility] During your visit today, we recorded the [...] Encounter Status:Closed by KRYSTIAN WARD on 10/28/23 [facility] CNOVon 10-08-2023 CNOV Office Visit (PLASST ) -- RAUL CHONG ([id number]) 1980 F Date Time Provider Department 10/08/23 [...] wear certain clothes and big enough to stock puller the loose skin. 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 Normal [facility] EPIL EEG ROUTINEon [facility] EPIL EEG Routine [[id number]] Patient name: RAUL CHONG Start of test: 10/06/2023 12:30 End of test: 10/06/2023 12:54 Duration: 0 hr 24 min Requested By: MAIRA ESCAMILLA Staff Physician: Gregg Gallardo EEG Fellow or Mandan: Kelvin Mendez History: 43-year-old left-handed female. History [...] Gregg Gallardo Date of signin10/07/2023 13:05 NEUROLOGY [facility] CNOVon 10-06-2023 CNOV Office Visit (EEGAK) -- RAUL CHONG ([id number]) 1980 F Date Time Provider Department 10/06/23 11:45 AM EEG NEUR [place] EEGAK During your visit today, we recorded the following information about you: Referring Provider: MAIRA ESCAMILLA [[id number]] Allergies As of Date: 10/06/2023 Noted Allergy [...] loss [H54.7] Near syncope [R55] Confusion [R41.0] Order(s):[facility] EEG ROUTINE [[id number]] Order #: [id number]. #:[id number]: 1 Prescriptions as of 11/16/2023 - pregabalin [...] Status:Closed by SHAYLEE VALADEZ on 11/16/23 Normal [facility] CNOV Office Visit (NEMOWS ) -- RAUL CHONG ([id number]) 1980 F Date Time Provider Department 10/06/23 9:00 AM PREETHI SKINNER During your visit today, we recorded the following information about you: Pulse Respiration Blood pressure Weight 61/minute 16/minute 107/67 88.5 kg Preethi Skinner PA-C 10/06/2023 10:03 AM Signed [facility] Date: October 06, 2023 Patient Name: Raul Chong Referring physician: Maira Escmailla [address] [facility] [address] Consult requested for headaches by Dr. Escamilla. Recommendations will be communicated via shared medical record or US mail. Primary physician: Maira Escamilla [address] [place] [address] Reason for Evaluation: Headaches Subjective HPI: Patient [...] reported. HEENT: (more content not included)... Normal [facility] 10-05-2023 [facility] -- RAUL CHONG ([id number]) 1980 F Date Time Provider Department 10/05/23 MAIRA ESCAMILLA [facility] During your visit today, we recorded [...] still. She said that when she called Shyla they had told her that PCP may [...] Assessed Reason for Visit: Results [95] Cmt: shyla Primary Visit Diagnosis:Palpitations [R00.2] Order(s):OUTSIDE VENDOR CARDIAC OUTPATIENT EXTENDED RHYTHM RECORDING (WITHOUT TELEMETRY) [[id number]] Order #: [id number]: 1 Prescriptions as of 10/05/2023 - pregabalin [...] Encounter Status:Closed by CONCHA MORENO on 10/05/23 [facility] CNOVon 09-28-2023 CNOV Office Visit (BMINO) -- RAUL CHONG ([id number]) 1980 F Date Time Provider Department 09/28/23 [...] lbs (05/21/21) Total weight loss: 199 lbs [place] weight: 76.8 kg (169 lb 5 oz) [...] citrate but does get a brand from [facility]). Multivitamin AND Minerals: 2 chewable vitamins [...] to excess calories (HCC) SVT (supraventricular tachycardia) ([facility]) Palpitations Chest pain SOB [...] Internal derangement (more content not included)... Normal [facility] XR RIBS 2 VIEWS LEFTon 08-30 XR [...] 08/31/2023 6:37:06 PM Ordering Provider: TIGIST ALFARO [facility] (OR) XR Chest PA and Lateralon IMPRESSION: No acute radiographic abnormality. Solar Electric Installer: CESAR Transcribe Date/Time: Aug 25 2023 4:47P Dictated by : MIKKI ROUSE MD This examination was interpreted and the report reviewed and electronically signed by: MIKKI ROUSE MD on Aug 25 2023 4:47PM [facility] DIVISION OF RADIOLOGY * * *Final Report* [...] in the spine. [facility] * * *Final Report* * [...] spine. IMPRESSION IMPRESSION: No acute radiographic abnormality. Solar Electric Installer: PSCB Transcribe Date/Time: Aug 25 2023 4:47P Dictated by : MIKKI ROUSE MD This examination was interpreted and the report reviewed and electronically signed by: MIKKI ROUSE MD on Aug 25 2023 4:47PM EST [facility] Radiology Study observation (narrative) [facility] XR Chest PA and LateralOrder ed By: Ccf Provider on 08-25-2023 [facility] Laboratory - Microbiology an d Antimicrobial susceptibilityOrdered By: Deepak Moreno on 02-13-2023 SARS-CoV-2 (COVID-19) RNA KRISTINA+probe Ql (Unsp spec) [facility] ARUN SCREENINGon 03-07-2022 [facility] STREP A MOLECULAR (POC)on Procedural Control Valid [facility] Strep A (POCT) Positive Abnormal Negative [facility] Absolute lymphocyte counton 06-24-2021 Lymphocytes Auto (Unsp spec) [#/Vol] 1.30 10*3/uL 0.83-4.51 [facility] Work Phone: Basophil percentageon 2021 Basophil percentage 0-5 SEEN /hpf [facility] Work Phone: Basophils/100 WBC (Bld) 0.7 % 0-1 [facility] Work Phone: Chloride [Moles/Vol] 107 mmol/L 98-107 [facility] Work Phone: Eosinophils/100 WBC (Bld) 4.1 % 0-5 [facility] Work Phone: Glucose [Mass/Vol] 103 mg/dL 74-106 [facility] Work Phone: Comment on above: Fasting Glucose resu lt from 100 to 125 mg/dL suggests IMPAIRED HOMEOSTASIS per A.D.A. criteria. Neutrophils (Bld) [#/Vol] 3.8 10*3/uL 2.0-7.7 [facility] Work Phone: Neutrophils/100 WBC (Bld) 64.1 % 47-70 [facility] Work Phone: Potassium [Moles/Vol] 3.5 mmol/L 3.5-5.1 [facility] Work Phone: Sodium [Moles/Vol] 139 mmol/L 136-145 [facility] Work Phone: WBC (Bld) [#/Vol] 5.9 10*3/uL 4.4-11.0 [facility] Work Phone: Bilirubin Test strip Ql (U)o n 06-24-2021 Bilirubin Ql (U) Negative Negative [facility] Work Phone: Blood erythrocytes count (nu mber/volume)on 06-24-2021 RBC (Bld) [#/Vol] 4.75 10*6/uL 4.2-5.4 [facility] Work Phone: Blood hemoglobin measurement (mass/volume)on 06-24-2021 Hemoglobin (Bld) [Mass/Vol] 11.8 g/dL 12.0-15.0 [facility] Work Phone: Blood lymphocytes/100 leukoc yteson 06-24-2021 Lymphocytes/100 WBC (Bld) 22.1 % 19-41 [facility] Work Phone: [phone] Blood monocytes/100 leukocyt eson 06-24-2021 Monocytes/100 WBC (Bld) 8.7 % 0-10 [facility] Work Phone: Blood platelet mean volumeon 06-24-2021 Platelet mean volume (Bld) [Entitic vol] 9.9 fL 6.2-12.0 [facility] Work Phone: Determination of erythrocyte mean corpuscular volume (MCV)on 06-24-2021 MCV (RBC) [Entitic vol] 78.1 fL 81-99 [facility] Work Phone: [phone] Hematocrit Auto (Bld) [Volum e fraction]on 06-24-2021 Hematocrit (Bld) [Volume fraction] 37.1 % 37-47 [facility] Work Phone: [phone] Ketones Test strip Ql (U)on 06-24-2021 Ketones Ql (U) 50 mg/dl Negative [facility] Work Phone: Laboratory - Chemistry and C hemistry - challengeon 06-24-2021 CO2 [Moles/Vol] 24.0 mmol/L 21.0-32.0 [facility] Work Phone: Urea nitrogen/Creatinine [Mass ratio] 21.4 mg/mg 10-20 [facility] Work Phone: [phone] Laboratory - Hematology and Cell countson 06-24-2021 Erythrocyte distribution width (RBC) [Entitic vol] 42.9 fL 35.1-43.9 [facility] Work Phone: Erythrocyte distribution width (RBC) [Ratio] 15.1 % 11.6-14.6 [facility] Work Phone: [phone] Immature granulocytes/100 WBC (Bld) 0.300 % 0.0-0.9 [facility] Work Phone: Comment on above: IG% - Immature Granu locytes (promyelocytes, myelocytes and metamyelocytes) > 1% indicates that a LEFT SHIFT is Present. MCH (RBC) [Entitic mass] 24.8 pg 27.0-32.0 [facility] Work Phone: Nucleated RBC/100 WBC (Bld) [Ratio] 0 % 0-5 [facility] Work Phone: [phone] MCHC Auto (RBC) [Mass/Vol]on 06-24-2021 MCHC (RBC) [Mass/Vol] 31.8 g/dL 32-36 [facility] Work Phone: [phone] Mucus LM Ql (Urine sed)on Mucus Ql (Urine sed) 0 SEEN /hpf [facility] Work Phone: [phone] Nitrite Test strip Ql (U)on 06-24-2021 Nitrite Ql (U) Negative Negative [facility] Work Phone: [phone] No Panel Informationon 06-24 Estimated Creatinine Clearance Calc 92.11 ml/min [facility] Work Phone: [phone] Estimated GFR (MDRD) Amer 96 mL/min >60 [facility] Work Phone: [phone] Comment on above: GFR Calc Estimated GFR (MDRD) Non-Af Amer 79 mL/min >60 [facility] Work Phone: [phone] Comment on above: Non- GFR Calc Platelets bldon 06-24-2021 Platelets (Bld) [#/Vol] 247 10*3/uL 150-450 [facility] Work Phone: [phone] Protein Test strip Ql (U)on 06-24-2021 Protein Ql (U) 15 mg/dl Negative [facility] Work Phone: Serum or plasma calcium shayna urement (mass/volume)on 06-24-2021 Calcium [Mass/Vol] 8.7 mg/dL 8.5-10.1 [facility] Work Phone: Serum or plasma creatinine m easurement (mass/volume)on 06-24-2021 Creatinine [Mass/Vol] 0.84 mg/dL 0.55-1.02 [facility] Work Phone: Comment on above: The validity of the calculated GFR & GFRAA in patients over 70 years has not been determined. Clinical correlation is essential. Serum or plasma urea nitroge n measurement (mass/volume)on 06-24-2021 Urea nitrogen [Mass/Vol] 18 mg/dL 7-18 [facility] Work Phone: Squamous epithelial cells de tection in urine sediment by light microscopyon 06-24-2021 Epithelial cells.squamous LM Ql (Urine sed) 5-10 SEEN /hpf [facility] Work Phone: Thin prep Papanicolaou smear with manual screeningon 06-24-2021 Thin prep Papanicolaou smear with manual screening 8 5-15 [facility] Work Phone: Urine blood detectionon 06-09 RBC Ql (U) 10 /ul Negative [facility] Work Phone: RBC Ql (U) 0-5 SEEN /hpf [facility] Work Phone: Urine clarityon 06-24-2021 Clarity (U) Clear Clear [facility] Work Phone: Urine color determinationon 06-24-2021 Color (U) Yellow Yellow [facility] Work Phone: Urine glucose detectionon Glucose Ql (U) Normal mg/dl Normal [facility] Work Phone: Urine leukocyte esterase det ection by dipstickon 06-24-2021 Leukocyte esterase Test strip Ql (U) 100 /ul Negative [facility] Work Phone: Urine pHon 06-24-2021 pH (U) 6.0 [pH] [facility] Work Phone: Urine sediment bacteria coun t by microscopy (number/high power field)on 06-24-2021 Bacteria LM.HPF (Urine sed) [#/Area] RARE /hpf None Seen [facility] Work Phone: Urine specific gravity measu rementon 06-24-2021 Specific gravity (U) [Rel density] 1.025 [facility] Work Phone: Urobilinogen Auto test strip Ql (U)on 06-24-2021 Urobilinogen Ql (U) Normal mg/dl Normal [facility] Work Phone: XR Chest PA and Lateralon IMPRESSION: No acute radiographic abnormality. Solar Electric Installer: CESAR Transcribe Date/Time: May 01 2021 5:59P Dictated by : MARITZA GUERRERO MD This examination was interpreted and the report reviewed and electronically signed by: MARITZA GUERRERO MD on May 01 2021 6:00PM [facility] DIVISION OF RADIOLOGY * * *Final Report* [...] the thoracic spine. DIVISION OF RADIOLOGY Provider, Blanca Elvia Martinez - 05/01/2021 * * *Final Report* * [...] spine. IMPRESSION IMPRESSION: No acute radiographic abnormality. Solar Electric Installer: CESAR Transcribe Date/Time: May 01 2021 5:59P Dictated by : MARITZA GUERRERO MD This examination was interpreted and the report reviewed and electronically signed by: MARITZA GUERRERO MD on May 01 2021 6:00PM EST [facility] Radiology Study observation (narrative) [facility] XR Chest PA and LateralOrder ed By: Ccf Provider on 05-01-2021 [facility] XR Knee - bilateral 4 Viewso n 02-22-2021 IMPRESSION: 1. Mild osteoarthrosis of the bilateral knees with moderate narrowing of the left patellofemoral compartment joint space. Solar Electric Installer: Vulevú Transcribe Date/Time: Feb 22 2021 4:05P Dictated by : HAL RIVERA MD This examination was interpreted and the report reviewed and electronically signed by: HAL RIVERA MD on Feb 22 2021 4:07PM [facility] DIVISION OF RADIOLOGY * * *Final Report* * * DATE OF EXAM: Feb 22 2021 3:56PM STX 5618 - XR KNEE 4V AP/PA/LAT/[facility] NOE / PROCEDURE REASON: Pain * * [...] and left tibial tubercles consistent with old Edgar-Schlatter disease. DIVISION OF RADIOLOGY Provider, [facility] - 02/22/2021 * * *Final Report* * [...] and left tibial tubercles consistent with old Bock-Schlatter disease. IMPRESSION IMPRESSION: 1. Mild osteoarthrosis of the bilateral knees with moderate narrowing of the left patellofemoral compartment joint space. Solar Electric Installer: PSCB Transcribe Date/Time: Feb 22 2021 4:05P Dictated by : HAL RIVERA MD This examination was interpreted and the report reviewed and electronically signed by: HAL RIVERA MD on Feb 22 2021 4:07PM EST [facility] Radiology Study observation (narrative) [facility] XR Knee - bilateral 4 ViewsO rdered By: Ccf Provider on 02-22-2021 [facility] Clinical Summary: HMSPatient IDon 09-27-[address] [facility] Work Phone: Office Visit: New - visi t with practice, Rm: 6on 09-27-2019 NEGATED: Highlighted rowxray history of the cervical spine on 09/21/2019 at [facility] Work Phone: Clinical Lists Update: Prelo ad Extendedon 09-23-2019 Tobacco smoking status NHIS Tobacco smoking status NHIS [facility] Work Phone: Clinical Summary: Scanned Hi story Summaryon 09-23-2019 comments about allergies TopamaxGabapentinPrendason e [facility] Work Phone: data entered by patient, alcohol (ethanol or ETOH) use No [facility] Work Phone: data entered by patient, drug (of abuse) use No [facility] Work Phone: data entered by patient, Employer Name employed [facility] Work Phone: data entered by patient, exercise history No [facility] Work Phone: data entered by patient, father's medical history Arthritis [facility] Work Phone: Data entered by patient, history of past surgeries sectionFoot surgeryGallbladder surgeryLumbar spine decompressionTonsillectomy [facility] Work Phone: Data entered by patient, medication list [id number]-[id number]-dailymet [id number]-spso packet-daily [facility] Work Phone: data entered by patient, mother's medical history Arthritis [facility] Work Phone: data entered by patient, past medical history ArthritisAsthmaObesity [facility] Work Phone: data entered by patient, social history, current smoker former smoker [facility] Work Phone: data entered by patient, social history, former smoker 2013 [facility] Work Phone: data entered by patient, social history, marital status single [facility] Work Phone: data entered by patient, social history, occupation [employer] [facility] Work Phone: father of patient is alive or Alive [facility] Work Phone: Housing Type: apartment, house, senior living, trailer, none house [facility] Work Phone: medical history of patient's brother(s) Diabetes - insulin dependent [facility] Work Phone: mother of patient is alive or Alive [facility] Work Phone: Vital Signs Date Time Vital Sign Value Performing Clinician Facility 09-09-2024 10:27-0400 Body mass index (BMI) [Ratio] 27.98 kg/m2 Beulah Campa MD Work Phone: [facility] 09-09-2024 10:270400 Body weight 83.46 kg Beulah Campa MD Work Phone: [facility] 09-09-2024 10:27-0400 Diastolic blood pressure 58 mm[Hg] Beulah Campa MD Work Phone: [facility] 09-09-2024 10:27-0400 Systolic blood pressure 106 mm[Hg] Beulah Campa MD Work Phone: [facility] 09-01-2024 13:04-0400 Body temperature 97.2 [degF] Dr. Maira Escamilla MD Work Phone: [facility] 09-01-2024 13:04-0400 Diastolic blood pressure 72 mm[Hg] Dr. Maira Escamilla MD Work Phone: 9(428)330-865326 [place] [address] 09-01-2024 13:04-0400 Heart rate 53 /min Dr. Maira Escamilla MD Work Phone: 1(622)477-496873 [place] [address] 09-01-2024 13:04-0400 Respiratory rate 16 /min Dr. Maira Escamilla MD Work Phone: 3(023)774-524373 [place] [address] 09-01-2024 13:04-0400 SaO2% (BldA) [Mass fraction] 99 % Dr. Maira Escamilla MD Work Phone: 4(951)782-199673 [place] [address] 09-01-2024 13:04-0400 Systolic blood pressure 112 mm[Hg] Dr. Maira Escamilla MD Work Phone: 5(862)059-163373 [place] [address] 09-01-2024 11:30-0400 Inhaled oxygen flow rate 4 L/min Dr. Maira Escamilla MD Work Phone: 1(288)049-170773 [place] [address] 09-01-2024 06:09-0400 Body height 172.[address] Maira Escamilla MD Work Phone: 9(623)165-675973 [place] [address] 09-01-2024 06:09-0400 Body mass index (BMI) [Ratio] 30.1 kg/m2 Dr. Maira Escamilla MD Work Phone: 5(838)373-302373 [place] [address] 09-01-2024 06:09-0400 Body weight 89.[address] Maira Escamilla MD Work Phone: 0(200)935-866573 [place] [address] 08-31-2024 09:14-0400 Body mass index (BMI) [Ratio] 28.63 kg/m2 Roseann Armstrong MD Work Phone: 8(294)301-150424 [place] [address] 08-31-2024 09:14-0400 Body temperature 97.5 [degF] Roseann Armstrong MD Work Phone: 8(328)260-289224 [place] [address] 08-31-2024 09:14-0400 Body weight 85.4 kg Roseann Armstrong MD Work Phone: 7(493)326-177924 [place] [address] 08-31-2024 09:14-0400 Diastolic blood pressure 62 mm[Hg] Roseann Armstrong MD Work Phone: [facility] 08-31-2024 09:14-0400 Heart rate 70 /min Roseann Armstrong MD Work Phone: [facility] 08-31-2024 09:14-0400 Respiratory rate 16 /min Roseann Armstrong MD Work Phone: [facility] 08-31-2024 09:14-0400 SaO2% (BldA) [Mass fraction] 98 % Roseann Armstrong MD Work Phone: [facility] 08-31-2024 09:14-0400 Systolic blood pressure 108 mm[Hg] Roseann Armstrong MD Work Phone: [facility] 08-24-2024 10:30-0400 Body height 172.7 cm Beulah Campa MD Work Phone: [facility] 08-24-2024 10:30-0400 Body mass index (BMI) [Ratio] 27.98 kg/m2 Beulah Campa MD Work Phone: [facility] 08-24-2024 10:30-0400 Body weight 83.46 kg Beulah Campa MD Work Phone: [facility] 08-24-2024 10:30-0400 Diastolic blood pressure 58 mm[Hg] Beulah Campa MD Work Phone: [facility] 08-24-2024 10:30-0400 Heart rate 70 /min Beulah Campa MD Work Phone: [facility] 08-24-2024 10:30-0400 SaO2% (BldA) [Mass fraction] 97 % Beulah Campa MD Work Phone: [facility] 08-24-2024 10:30-0400 Systolic blood pressure 102 mm[Hg] Beulah Campa MD Work Phone: [facility] 08-16-2024 11:42-0400 Body temperature 98.6 [degF] Dr. Maira Escamilla MD Work Phone: 4(539)683-168826 [place] [address] 08-16-2024 11:42-0400 Diastolic blood pressure 70 mm[Hg] Dr. Maira Escamilla MD Work Phone: 6(852)174-920726 [place] [address] 08-16-2024 11:42-0400 Heart rate 81 /min Dr. Maira Escamilla MD Work Phone: 7(858)582-277473 [place] [address] 08-16-2024 11:42-0400 Respiratory rate 18 /min Dr. Maira Escamilla MD Work Phone: 7(619)516-711473 [place] [address] 08-16-2024 11:42-0400 SaO2% (BldA) [Mass fraction] 98 % Dr. Maira Escamilla MD Work Phone: 5(677)741-205173 [place] [address] 08-16-2024 11:42-0400 Systolic blood pressure 128 mm[Hg] Dr. Maira Escamilla MD Work Phone: 7(457)352-852773 [place] [address] 08-16-2024 09:00-0400 Body mass index (BMI) [Ratio] 28.5 kg/m2 Dr. Maira Escamilla MD Work Phone: 4(201)850-149273 [place] [address] 08-16-2024 09:00-0400 Body weight 85.[address] Maira Escamilla MD Work Phone: 9(063)486-827473 [place] [address] 08-16-2024 08:47-0400 Body height 172.[address] Maira Escamilla MD Work Phone: 5(927)566-676973 [place] [address] 08-04-2024 09:58-0400 Diastolic blood pressure 78 mm[Hg] Makeda Lynn B[employer] MANAGER Work Phone: 5(150)233-202724 [place] [address] 08-04-2024 09:58-0400 Systolic blood pressure 126 mm[Hg] Makeda Lima B[employer]WO[employer]S MANAGER Work Phone: [facility] 08-04-2024 09:27-0400 Body mass index (BMI) [Ratio] 28.4 kg/m2 Makeda Lynn B[employer]WO[employer] MANAGER Work Phone: 8(483)883-306224 [place] [address] 08-04-2024 09:27-0400 Body weight 84.73 kg Makeda Lima B[employer]WO[employer]S MANAGER Work Phone: [facility] 08-01-2024 09:33-0400 Body mass index (BMI) [Ratio] 28.28 kg/m2 Beulah Campa MD Work Phone: [facility] 08-01-2024 09:33-0400 Body weight 84.37 kg Beulah Campa MD Work Phone: [facility] 08-01-2024 09:33-0400 Diastolic blood pressure 66 mm[Hg] Beulah Campa MD Work Phone: [facility] 08-01-2024 09:33-0400 Systolic blood pressure 110 mm[Hg] Beulah Campa MD Work Phone: [facility] 07-22-2024 10:07-0400 Body mass index (BMI) [Ratio] 27.06 kg/m2 Makeda Lima [employer]WO[employer]S MANAGER Work Phone: [facility] 07-22-2024 10:07-0400 Body weight 80.74 kg Makeda Lynn B[employer]WO[employer]S MANAGER Work Phone: [facility] 07-22-2024 10:07-0400 Diastolic blood pressure 64 mm[Hg] Makeda Lima B[employer]WO[employer]S MANAGER Work Phone: [facility] 07-22-2024 10:07-0400 Systolic blood pressure 102 mm[Hg] Makeda Lynn B[employer]WO[employer]S MANAGER Work Phone: [facility] 07-14-2024 13:19-0400 Body height 172.7 cm Bonny Elaine B[employer]WO[employer]S MANAGER Work Phone: [facility] 07-14-2024 13:19-0400 Body mass index (BMI) [Ratio] 27.15 kg/m2 Bonny Elaine B[employer]WO[employer]S MANAGER Work Phone: [facility] 07-14-2024 13:19-0400 Body weight 81 kg Bonny Elaine B[employer]WO[employer]S MANAGER Work Phone: [facility] 07-12-2024 09:17-0400 Body mass index (BMI) [Ratio] 27.64 kg/m2 Makeda Lynn B[employer]WO[employer]S MANAGER Work Phone: [facility] 07-12-2024 09:17-0400 Body weight 82.46 kg Makeda Lima [employer]WO[employer]S MANAGER Work Phone: [facility] 07-12-2024 09:17-0400 Diastolic blood pressure 64 mm[Hg] Makeda Lima B[employer]WO[employer]S MANAGER Work Phone: [facility] 07-12-2024 09:17-0400 Systolic blood pressure 118 mm[Hg] Makeda Lima B[employer]WO[employer]S MANAGER Work Phone: [facility] 06-02-2024 15:40-0400 Body temperature 98.5 [degF] Dr. Maira Escamilla MD Work Phone: 0(314)389-041626 [place] [address] 06-02-2024 15:40-0400 Diastolic blood pressure 69 mm[Hg] Dr. Maira Escamilla MD Work Phone: 3(932)713-300426 [place] [address] 06-02-2024 15:40-0400 Heart rate 88 /min Dr. Maira Escamilla MD Work Phone: 3(311)840-592426 [place] [address] 06-02-2024 15:40-0400 Respiratory rate 15 /min Dr. Maira Escamilla MD Work Phone: [facility] 06-02-2024 15:40-0400 SaO2% (BldA) [Mass fraction] 97 % Dr. Maira Escamilla MD Work Phone: [facility] 06-02-2024 15:40-0400 Systolic blood pressure 105 mm[Hg] Dr. Maira Escamilla MD Work Phone: 6(478)661-741426 [place] [address] 06-02-2024 14:39-0400 Body height 172.[address] Maira Escamilla MD Work Phone: [facility] 06-02-2024 14:39-0400 Body mass index (BMI) [Ratio] 28 kg/m2 Dr. Maira Escamilla MD Work Phone: 0(247)244-346226 [place] [address] 06-02-2024 14:39-0400 Body weight 83.[address] Maira Escamilla MD Work Phone: [facility] 03-26-2024 10:32-0500 Body mass index (BMI) [Ratio] 28.02 kg/m2 Starr Ram B[employer]S MANAGER Work Phone: [facility] 03-26-2024 10:32-0500 Body temperature 97.39 [degF] Starr Leanna B[employer]WO[employer]S MANAGER Work Phone: [facility] 03-26-2024 10:32-0500 Body weight 83.6 kg Starr Haquek B[employer]WO[employer]S MANAGER Work Phone: [facility] 03-26-2024 10:32-0500 Diastolic blood pressure 64 mm[Hg] Starr Haquek B[employer]ER [employer]WO[employer]S MANAGER Work Phone: [facility] 03-26-2024 10:32-0500 Heart rate 84 /min Starr Leanna B[employer]WO[employer]S MANAGER Work Phone: [facility] 03-26-2024 10:32-0500 Respiratory rate 16 /min Starr Haquek B[employer]WO[employer]S MANAGER Work Phone: [facility] 03-26-2024 10:32-0500 SaO2% (BldA) [Mass fraction] 97 % Starr Ram B[employer]WO[employer]S MANAGER Work Phone: [facility] 03-26-2024 10:32-0500 Systolic blood pressure 112 mm[Hg] Starr Haquek B[employer]ER [employer]WO[employer]S MANAGER Work Phone: [facility] 03-24-2024 11:23-0500 Body temperature 98.29 [degF] Bonny Elaine B[employer]WO[employer]S MANAGER Work Phone: [facility] 03-08-2024 10:34-0500 Body mass index (BMI) [Ratio] 28 kg/m2 Dr. Maira Escamilla MD Work Phone: [facility] 03-08-2024 10:34-0500 Body weight 83.[address] Maira Escamilla MD Work Phone: [facility] 02-28-2024 14:38-0500 Body mass index (BMI) [Ratio] 27.49 kg/m2 Krislyn Aberegg PA Work Phone: [facility] 02-28-2024 14:38-0500 Body temperature 100.4 [degF] Krislyn Aberegg PA Work Phone: [facility] 02-28-2024 14:38-0500 Body weight 82 kg Krislyn Aberegg PA Work Phone: [facility] 02-28-2024 14:38-0500 Diastolic blood pressure 69 mm[Hg] Krislyn Aberegg PA Work Phone: [facility] 02-28-2024 14:38-0500 Heart rate 84 /min Krislyn Aberegg PA Work Phone: [facility] 02-28-2024 14:38-0500 Respiratory rate 22 /min Krislyn Aberegg PA Work Phone: [facility] 02-28-2024 14:38-0500 SaO2% (BldA) [Mass fraction] 98 % Krislyn Aberegg PA Work Phone: [facility] 02-28-2024 14:38-0500 Systolic blood pressure 103 mm[Hg] Krislyn Aberegg PA Work Phone: [facility] 02-22-2024 12:35-0500 Body mass index (BMI) [Ratio] 27.83 kg/m2 Anna Suppan B[employer]WO[employer]S MANAGER Work Phone: [facility] 02-22-2024 12:35-0500 Body weight 83.01 kg Anna Suppan B[employer]WO[employer]S MANAGER Work Phone: [facility] 02-22-2024 12:35-0500 Diastolic blood pressure 72 mm[Hg] Anna Suppan B[employer]ER [employer]WO[employer]S MANAGER Work Phone: [facility] 02-22-2024 12:35-0500 Heart rate 69 /min Anna Suppan B[employer]ER [employer]WO[employer]S MANAGER Work Phone: [facility] 02-22-2024 12:35-0500 Respiratory rate 16 /min Anna Sanjufarshad B[employer]ER [employer]WO[employer]S MANAGER Work Phone: [facility] 02-22-2024 12:35-0500 SaO2% (BldA) [Mass fraction] 98 % Anna Suppfarshad B[employer]WO[employer]S MANAGER Work Phone: [facility] 02-22-2024 12:35-0500 Systolic blood pressure 128 mm[Hg] Anna Nino B[employer]ER [employer]WO[employer]S MANAGER Work Phone: [facility] 02-15-2024 15:51-0500 Body height 172.7 cm Pacc 1 Work Phone: [facility] 02-15-2024 15:51-0500 Body mass index (BMI) [Ratio] 28.13 kg/m2 Pacc 1 Work Phone: [facility] 02-15-2024 15:51-0500 Body temperature 98.29 [degF] Pacc 1 Work Phone: [facility] 02-15-2024 15:51-0500 Body weight 83.92 kg Pacc 1 Work Phone: [facility] 02-15-2024 15:51-0500 Diastolic blood pressure 78 mm[Hg] Pacc 1 Work Phone: [facility] 02-15-2024 15:51-0500 Heart rate 70 /min Pacc 1 Work Phone: [facility] 02-15-2024 15:51-0500 Respiratory rate 14 /min Pacc 1 Work Phone: [facility] 02-15-2024 15:51-0500 SaO2% (BldA) [Mass fraction] 92 % Pacc 1 Work Phone: [facility] 02-15-2024 15:51-0500 Systolic blood pressure 120 mm[Hg] Pacc 1 Work Phone: [facility] 11-27-2023 08:43-0400 Body height 175.3 cm Jae Sterling MD Work Phone: [facility] 11-27-2023 08:43-0400 Body mass index (BMI) [Ratio] 28.38 kg/m2 Jae [place] MD Work Phone: [facility] 11-27-2023 08:43-0400 Body temperature 97.81 [degF] Jae [place] MD Work Phone: [facility] 11-27-2023 08:43-0400 Body weight 87.2 kg Jae [place] MD Work Phone: [facility] 11-27-2023 08:43-0400 Diastolic blood pressure 74 mm[Hg] Jae [place] MD Work Phone: [facility] 11-27-2023 08:43-0400 Heart rate 58 /min Jae [place] MD Work Phone: [facility] 11-27-2023 08:43-0400 SaO2% (BldA) [Mass fraction] 100 % Jae [place] MD Work Phone: [facility] 11-27-2023 08:43-0400 Systolic blood pressure 115 mm[Hg] Jae [place] MD Work Phone: [facility] 10-30-2023 16:46-0400 Body mass index (BMI) [Ratio] 28.65 kg/m2 Maira Escamilla MD Work Phone: [facility] 10-30-2023 16:46-0400 Body weight 88 kg Maira Escamilla MD Work Phone: [facility] 10-30-2023 16:46-0400 Diastolic blood pressure 58 mm[Hg] Maira Escamilla MD Work Phone: [facility] 10-30-2023 16:46-0400 Heart rate 77 /min Maira Escamilla MD Work Phone: [facility] 10-30-2023 16:46-0400 SaO2% (BldA) [Mass fraction] 98 % Maira Escamilla MD Work Phone: [facility] 10-30-2023 16:46-0400 Systolic blood pressure 98 mm[Hg] Maira Escamilla MD Work Phone: [facility] 10-08-2023 10:19-0400 Body height 175.3 cm Bonny Henry APRN.WOODS MANAGER Work Phone: [facility] 10-08-2023 10:19-0400 Body mass index (BMI) [Ratio] 28.06 kg/m2 Bonny Henry B[employer]WO[employer]S MANAGER Work Phone: [facility] 10-08-2023 10:19-0400 Body weight 86.18 kg Bonny Henry APRN.WOODS MANAGER Work Phone: [facility] 10-06-2023 09:17-0400 Body mass index (BMI) [Ratio] 28.81 kg/m2 Preethi Queener PA-C Work Phone: [facility] 10-06-2023 09:17-0400 Body weight 88.54 kg Preethi Queener PA-C Work Phone: [facility] 10-06-2023 09:17-0400 Diastolic blood pressure 67 mm[Hg] Preethi Queener PA-C Work Phone: [facility] 10-06-2023 09:17-0400 Heart rate 61 /min Preethi Queener PA-C Work Phone: [facility] 10-06-2023 09:17-0400 Respiratory rate 16 /min Preethi Queener PA-C Work Phone: [facility] 10-06-2023 09:17-0400 SaO2% (BldA) [Mass fraction] 100 % Preethi Queener PA-C Work Phone: [facility] 10-06-2023 09:17-0400 Systolic blood pressure 107 mm[Hg] Preethi Queener PA-C Work Phone: [facility] 09-28-2023 15:04-0400 Body height 175.3 cm Alison Jules DO Work Phone: [facility] 09-28-2023 15:04-0400 Body mass index (BMI) [Ratio] 29.11 kg/m2 Alison Cetin DO Work Phone: [facility] 09-28-2023 15:04-0400 Body weight 89.45 kg Alison Cetin DO Work Phone: [facility] 09-28-2023 15:04-0400 Diastolic blood pressure 65 mm[Hg] Alison Cetin DO Work Phone: [facility] 09-28-2023 15:04-0400 Heart rate 72 /min Alison Cetin DO Work Phone: [facility] 09-28-2023 15:04-0400 Systolic blood pressure 103 mm[Hg] Alison Cetin DO Work Phone: [facility] 08-31-2023 17:51-0400 Body temperature 96.98 [degF] DR SHARON NARANJO MD [facility] 08-31-2023 17:51-0400 Body weight 89.[address] SHARON NARANJO MD [facility] 08-31-2023 17:51-0400 Diastolic Blood Pressure Non-Invasive 72 mm[Hg] DR SHARON NARANJO MD [facility] 08-31-2023 17:51-0400 Heart rate 66 /min DR SHARON NARANJO MD [facility] 08-31-2023 17:51-0400 Respiratory rate 18 /min DR SHARON NARANJO MD [facility] 08-31-2023 17:51-0400 Systolic Blood Pressure Non-Invasive 110 mm[Hg] DR SHARON NARANJO MD [facility] 08-25-2023 14:03-0400 Body height 175.3 cm Maira Escamilla MD Work Phone: [facility] 08-25-2023 14:03-0400 Body mass index (BMI) [Ratio] 28.86 kg/m2 Maira Escamilla MD Work Phone: [facility] 08-25-2023 14:03-0400 Body weight 88.63 kg Maira Escamilla MD Work Phone: [facility] 08-25-2023 14:03-0400 Diastolic blood pressure 70 mm[Hg] Maira Escamilla MD Work Phone: [facility] 08-25-2023 14:03-0400 Heart rate 74 /min Maira Escamilla MD Work Phone: [facility] 08-25-2023 14:03-0400 Systolic blood pressure 106 mm[Hg] Maira Escamilla MD Work Phone: [facility] 05-04-2023 08:39-0400 Body height 175.3 cm Alison Cetin DO Work Phone: [facility] 05-04-2023 08:39-0400 Body weight 103.9 kg Alison Cetin DO Work Phone: [facility] 05-04-2023 08:39-0400 Diastolic blood pressure 69 mm[Hg] Alison Cetin DO Work Phone: [facility] 05-04-2023 08:39-0400 Heart rate 62 /min Alison Cetin DO Work Phone: [facility] 05-04-2023 08:39-0400 SaO2% (BldA) [Mass fraction] 99 % Alison Cetin DO Work Phone: [facility] 05-04-2023 08:39-0400 Systolic blood pressure 120 mm[Hg] Alison Cetin DO Work Phone: [facility] 03-05-2023 15:14-0500 Body height 175.26 cm [facility] 03-05-2023 15:14-0500 Body mass index (BMI) [Ratio] 37.5 kg/m2 [facility] 03-05-2023 15:14-0500 Body temperature 97.4 [degF] [facility] 03-05-2023 15:14-0500 Body weight 115.48 kg [facility] 03-05-2023 15:14-0500 Diastolic blood pressure 73 mm[Hg] [facility] 03-05-2023 15:14-0500 Heart rate 75 /min [facility] 03-05-2023 15:14-0500 Respiratory rate 18 /min [facility] 03-05-2023 15:14-0500 SaO2% (BldA) [Mass fraction] 97 % [facility] 03-05-2023 15:14-0500 Systolic blood pressure 101 mm[Hg] [facility] 02-13-2023 22:00-0500 Respiratory rate 16 /min [facility] 02-13-2023 18:50-0500 Body height 175.26 cm [facility] 02-13-2023 18:50-0500 Body mass index (BMI) [Ratio] 37.5 kg/m2 [facility] 02-13-2023 18:50-0500 Body temperature 98 [degF] [facility] 02-13-2023 18:50-0500 Body weight 115.16 kg [facility] 02-13-2023 18:50-0500 Diastolic blood pressure 93 mm[Hg] [facility] 02-13-2023 18:50-0500 Heart rate 82 /min [facility] 02-13-2023 18:50-0500 SaO2% (BldA) [Mass fraction] 100 % [facility] 02-13-2023 18:50-0500 Systolic blood pressure 129 mm[Hg] [facility] 10-03-2022 13:00-0400 Body temperature 98.2 [degF] Anthony Spear APRN.WOODS MANAGER Work Phone: [facility] 10-03-2022 13:00-0400 Body weight 124.74 kg Anthony Spear APRN.CNP Work Phone: [facility] 10-03-2022 13:00-0400 Diastolic blood pressure 75 mm[Hg] Anthony Pendlebury B[employer]WO[employer]S MANAGER Work Phone: [facility] 10-03-2022 13:00-0400 Heart rate 75 /min Anthony Pendlebury B[employer]ER [employer].WOODS MANAGER Work Phone: [facility] 10-03-2022 13:00-0400 Respiratory rate 20 /min [facility] [employer].WO[employer]S MANAGER Work Phone: [facility] 10-03-2022 13:00-0400 SaO2% (BldA) [Mass fraction] 97 % [facility] [employer].WO[employer]S MANAGER Work Phone: [facility] 10-03-2022 13:00-0400 Systolic blood pressure 133 mm[Hg] [facility] B[employer].WOODS MANAGER Work Phone: [facility] 09-30-2022 16:53-0400 Diastolic blood pressure 64 mm[Hg] [facility] 09-30-2022 16:53-0400 Heart rate 71 /min [facility] 09-30-2022 16:53-0400 Respiratory rate 20 /min [facility] 09-30-2022 16:53-0400 SaO2% (BldA) [Mass fraction] 94 % [facility] 09-30-2022 16:53-0400 Systolic blood pressure 118 mm[Hg] [facility] 09-30-2022 15:11-0400 Body height 175.26 cm [facility] 09-30-2022 15:11-0400 Body mass index (BMI) [Ratio] 40.1 kg/m2 [facility] 09-30-2022 15:11-0400 Body temperature 97.8 [degF] [facility] 09-30-2022 15:11-0400 Body weight 123.5 kg [facility] 2022 11:45-0400 Body temperature 98.2 [degF] Suma Luque B[employer]ER [employer].WOODS MANAGER Work Phone: [facility] 2022 11:45-0400 Body weight 124.83 kg Suma Luque B[employer]ER [employer].WOODS MANAGER Work Phone: [facility] 2022 11:45-0400 Diastolic blood pressure 79 mm[Hg] Suma Praisler-Wood B[employer] T[employer]ER [employer].WOODS MANAGER Work Phone: [facility] 2022 11:45-0400 Heart rate 121 /min Suma Praisler-Wood B[employer] T[employer]ER [employer].WOODS MANAGER Work Phone: [facility] 2022 11:45-0400 Respiratory rate 18 /min Suma Praisler-Wood B[employer]ER [employer].WOODS MANAGER Work Phone: [facility] 2022 11:45-0400 SaO2% (BldA) [Mass fraction] 93 % Suma Praisler-Wood B[employer]ER [employer].WOODS MANAGER Work Phone: [facility] 2022 11:45-0400 Systolic blood pressure 124 mm[Hg] Suma Praisler-Wood B[employer] T[employer]ER [employer].WOODS MANAGER Work Phone: [facility] 06-11-2022 11:42-0400 Body height 175.3 cm Maira Escamilla MD Work Phone: [facility] 06-11-2022 11:42-0400 Body weight 126.55 kg Maira Escamilla MD Work Phone: [facility] 06-11-2022 11:42-0400 Diastolic blood pressure 68 mm[Hg] Maira Escamilla MD Work Phone: [facility] 06-11-2022 11:42-0400 Heart rate 60 /min Maira Escamilla MD Work Phone: [facility] 06-11-2022 11:42-0400 SaO2% (BldA) [Mass fraction] 98 % Maira Escamilla MD Work Phone: [facility] 06-11-2022 11:42-0400 Systolic blood pressure 110 mm[Hg] Maira Escamilla MD Work Phone: [facility] 05-22-2022 11:26-0400 Body height 175.3 cm Maira Escamilla MD Work Phone: [facility] 05-22-2022 11:26-0400 Body weight 127.91 kg Maira Escamilla MD Work Phone: [facility] 05-22-2022 11:26-0400 Diastolic blood pressure 64 mm[Hg] Maira Escamilla MD Work Phone: [facility] 05-22-2022 11:26-0400 Heart rate 71 /min Maira Escamilla MD Work Phone: [facility] 05-22-2022 11:26-0400 SaO2% (BldA) [Mass fraction] 99 % Maira Escamilla MD Work Phone: [facility] 05-22-2022 11:26-0400 Systolic blood pressure 104 mm[Hg] Maira Escamilla MD Work Phone: [facility] 04-11-2022 11:48-0500 Body weight 133.36 kg Alison Briekathia Work Phone: [facility] 03-31-2022 13:57-0500 Body weight 136.62 kg Makeda Lynn BURN OUT TENDER LACE.WOODS MANAGER Work Phone: [facility] 03-31-2022 13:57-0500 Diastolic blood pressure 64 mm[Hg] Makeda Lima BURN OUT TENDER LACE.WOODS MANAGER Work Phone: [facility] 03-31-2022 13:57-0500 Systolic blood pressure 100 mm[Hg] Makeda Lynn BURN OUT TENDER LACE.WOODS MANAGER Work Phone: [facility] 02-22-2022 12:36-0500 Body temperature 99.1 [degF] Jacqueline [place] BURN OUT TENDER LACE.WOODS MANAGER Work Phone: [facility] 02-22-2022 12:36-0500 Body weight 142.7 kg Jacqueline [place] APRN.WOODS MANAGER Work Phone: [facility] 02-22-2022 12:36-0500 Diastolic blood pressure 70 mm[Hg] Jacqueline [place] BURN OUT TENDER LACE.WOODS MANAGER Work Phone: [facility] 02-22-2022 12:36-0500 Heart rate 84 /min Jacqueline Darvin BURN OUT TENDER LACE.WOODS MANAGER Work Phone: [facility] 02-22-2022 12:36-0500 Respiratory rate 18 /min Jacqueline [place] BURN OUT TENDER LACE.WOODS MANAGER Work Phone: [facility] 02-22-2022 12:36-0500 SaO2% (BldA) [Mass fraction] 98 % Jacqueline Boston BURN OUT TENDER LACE.WOODS MANAGER Work Phone: [facility] 02-22-2022 12:36-0500 Systolic blood pressure 122 mm[Hg] Jacqueline [place] BURN OUT TENDER LACE.WOODS MANAGER Work Phone: [facility] 12-10-2021 11:38-0400 Diastolic blood pressure 82 mm[Hg] Viviana Haagen BURN OUT TENDER LACE.WOODS MANAGER Work Phone: [facility] 12-10-2021 11:38-0400 Heart rate 72 /min Viviana Haagen BURN OUT TENDER LACE.WOODS MANAGER Work Phone: [facility] 12-10-2021 11:38-0400 Respiratory rate 18 /min Viviana Haagen BURN OUT TENDER LACE.WOODS MANAGER Work Phone: [facility] 12-10-2021 11:38-0400 SaO2% (BldA) [Mass fraction] 97 % Viviana Haagen BURN OUT TENDER LACE.WOODS MANAGER Work Phone: [facility] 12-10-2021 11:38-0400 Systolic blood pressure 124 mm[Hg] Viviana Haagen BURN OUT TENDER LACE.WOODS MANAGER Work Phone: [facility] 10-23-2021 13:30-0400 Diastolic blood pressure 69 mm[Hg] Nurse 5 Work Phone: [facility] 10-23-2021 13:30-0400 Heart rate 71 /min Nurse 5 Work Phone: [facility] 10-23-2021 13:30-0400 Respiratory rate 20 /min Nurse 5 Work Phone: [facility] 10-23-2021 13:30-0400 SaO2% (BldA) [Mass fraction] 100 % Nurse 5 Work Phone: [facility] 10-23-2021 13:30-0400 Systolic blood pressure 128 mm[Hg] Nurse 5 Work Phone: [facility] 10-23-2021 10:04-0400 Body temperature 97.3 [degF] Nurse 5 Work Phone: [facility] 10-18-2021 10:45-0400 Body height 175.[address] [facility] 10-18-2021 10:45-0400 Body weight 166.[address] [facility] 09-18-2021 11:36-0400 Body height 175.3 cm Pacc 1 Work Phone: [facility] 09-18-2021 11:36-0400 Body temperature 97.9 [degF] Pacc 1 Work Phone: [facility] 09-18-2021 11:36-0400 Body weight 178.72 kg Pacc 1 Work Phone: [facility] 09-18-2021 11:36-0400 Diastolic blood pressure 72 mm[Hg] Pacc 1 Work Phone: [facility] 09-18-2021 11:36-0400 Heart rate 101 /min Pacc 1 Work Phone: [facility] 09-18-2021 11:36-0400 Respiratory rate 16 /min Pacc 1 Work Phone: [facility] 09-18-2021 11:36-0400 SaO2% (BldA) [Mass fraction] 96 % Pacc 1 Work Phone: [facility] 09-18-2021 11:36-0400 Systolic blood pressure 118 mm[Hg] Pacc 1 Work Phone: [facility] 08-06-2021 11:31-0400 Diastolic blood pressure 84 mm[Hg] Viviana Marie APRN.WOODS MANAGER Work Phone: [facility] 08-06-2021 11:31-0400 Heart rate 92 /min Viviana Haagen BURN OUT TENDER LACE.WOODS MANAGER Work Phone: [facility] 08-06-2021 11:31-0400 Respiratory rate 18 /min Viviana Marie BURN OUT TENDER LACE.WOODS MANAGER Work Phone: [facility] 08-06-2021 11:31-0400 SaO2% (BldA) [Mass fraction] 99 % Viviana Marie BURN OUT TENDER LACE.WOODS MANAGER Work Phone: [facility] 08-06-2021 11:31-0400 Systolic blood pressure 126 mm[Hg] Viviana Marie BURN OUT TENDER LACE.WOODS MANAGER Work Phone: [facility] 07-30-2021 08:49-0400 Body height 175.[address] Work Phone: [facility] 07-30-2021 08:49-0400 Body weight 181.[address] Work Phone: [facility] 07-24-2021 11:45-0400 Body height 175.3 cm Cris Vacco BURN OUT TENDER LACE.WOODS MANAGER Work Phone: [facility] 07-24-2021 11:45-0400 Body weight 181.44 kg Cris Vacco BURN OUT TENDER LACE.WOODS MANAGER Work Phone: [facility] 07-15-2021 08:54-0400 Body weight 184.61 kg Donald Pearl MD Work Phone: [facility] 07-15-2021 08:54-0400 Diastolic blood pressure 74 mm[Hg] Donald Pearl MD Work Phone: [facility] 07-15-2021 08:54-0400 Heart rate 78 /min Donald Pearl MD Work Phone: [facility] 07-15-2021 08:54-0400 Respiratory rate 18 /min Donald Pearl MD Work Phone: [facility] 07-15-2021 08:54-0400 SaO2% (BldA) [Mass fraction] 98 % Donald Pearl MD Work Phone: [facility] 07-15-2021 08:54-0400 Systolic blood pressure 118 mm[Hg] Donald Pearl MD Work Phone: [facility] 06-24-2021 16:07-0400 Heart rate 88 /min [facility] Work Phone: 06-24-2021 16:07-0400 Respiratory rate 16 /min [facility] Work Phone: 06-24-2021 16:07-0400 SaO2% (BldA) [Mass fraction] 99 % [facility] Work Phone: 06-24-2021 14:18-0400 Body temperature 98 [degF] [facility] Work Phone: 06-24-2021 14:18-0400 Diastolic blood pressure 93 mm[Hg] [facility] Work Phone: 06-24-2021 14:18-0400 Systolic blood pressure 147 mm[Hg] [facility] Work Phone: 06-24-2021 14:16-0400 Body height 175.26 cm [facility] Work Phone: 06-24-2021 14:16-0400 Body mass index (BMI) [Ratio] 61.2 kg/m2 [facility] Work Phone: 06-24-2021 14:16-0400 Body weight 188.24 kg [facility] Work Phone: 06-24-2021 13:26-0400 Body temperature 97.2 [degF] Starr Haquek BURN OUT TENDER LACE.WOODS MANAGER Work Phone: [facility] 06-24-2021 13:26-0400 Body weight 188.06 kg Starr Leanna BURN OUT TENDER LACE.WOODS MANAGER Work Phone: [facility] 06-24-2021 13:26-0400 Diastolic blood pressure 82 mm[Hg] Starr Leanna BURN OUT TENDER LACE.WOODS MANAGER Work Phone: [facility] 06-24-2021 13:26-0400 Heart rate 79 /min Starr Leanna BURN OUT TENDER LACE.WOODS MANAGER Work Phone: [facility] 06-24-2021 13:26-0400 Respiratory rate 21 /min Starr Leanna BURN OUT TENDER LACE.WOODS MANAGER Work Phone: [facility] 06-24-2021 13:26-0400 SaO2% (BldA) [Mass fraction] 98 % Starr Leanna BURN OUT TENDER LACE.WOODS MANAGER Work Phone: [facility] 06-24-2021 13:26-0400 Systolic blood pressure 124 mm[Hg] Starr Leanna BURN OUT TENDER LACE.WOODS MANAGER Work Phone: [facility] 06-18-2021 14:15-0400 Body height 168.9 cm Alison Cetin DO Work Phone: [facility] 06-18-2021 14:15-0400 Body weight 187.34 kg Alison Cetin DO Work Phone: [facility] 06-18-2021 14:15-0400 Diastolic blood pressure 76 mm[Hg] Alison Cetin DO Work Phone: [facility] 06-18-2021 14:15-0400 Heart rate 100 /min Alison Cetin DO Work Phone: [facility] 06-18-2021 14:15-0400 Systolic blood pressure 140 mm[Hg] Alison Cetin DO Work Phone: [facility] 05-22-2021 10:59-0400 Body height 175.[address] Work Phone: [facility] 05-22-2021 10:59-0400 Body weight 191.[address] Work Phone: [facility] 05-21-2021 16:11-0400 Body height 173.2 cm Alison Cetin DO Work Phone: [facility] 05-21-2021 16:11-0400 Body weight 191.87 kg Alison Cetin DO Work Phone: [facility] 05-21-2021 16:11-0400 Diastolic blood pressure 84 mm[Hg] Alison Jules DO Work Phone: [facility] 05-21-2021 16:11-0400 Heart rate 86 /min Alison Jules DO Work Phone: [facility] 05-21-2021 16:11-0400 Systolic blood pressure 138 mm[Hg] Alison Jules DO Work Phone: [facility] NEGATED: Highlighted [id number] 10:42-0400 BMI (Body Mass Index) 62.26 kg/m2 Shirley Gabi AT [facility] Work Phone: NEGATED: Highlighted [id number] 10:42-0400 Body weight 185 kg Shirley Gabi AT [facility] Work Phone: NEGATED: Highlighted [id number] 10:42-0400 Body weight 185.07 kg Shirley Gabi AT [facility] Work Phone: NEGATED: Highlighted [id number] 10:42-0400 Height 173 cm Shirley Gabi AT [facility] Work Phone: NEGATED: Highlighted [id number] 10:42-0400 Height 172.72 cm Shirley Gabi AT [facility] Work Phone: Encounters Encounter Date Encounter Type Care Provider Facility Start: 09-13-2024 ambulatory Jamison Hernández Facility:[facility] Start: 09-09-2024 End: 09-09-[address] [facility] Facility:[facility] Start: 09-09-2024 End: 09-09-2024 Patient encounter procedure Beulah Campa MD Work Phone: OB/Gynecology Comment on above: Postop check (Primar y Dx); Postoperative pain Start: 09-08-2024 End: 09-08-2024 Admission to same day surgery center Beulah Campa MD Work Phone: OB/Gynecology Comment on above: Rash from Surgery Start: 09-08-2024 End: 09-08-2024 ambulatory Beulah Campa MD Work Phone: OB/Gynecology Start: 09-07-2024 End: 09-07-2024 Telephone encounter Beulah Campa MD Work Phone: OB/Gynecology Comment on above: Post Op Start: 09-05-2024 End: 09-05-2024 ambulatory Beulah Campa MD Work Phone: OB/Gynecology Comment on above: Photos of incisions from Hysterectomy Start: 09-05-2024 End: 09-05-2024 Telephone encounter Beulah Campa MD Work Phone: OB/Gynecology Comment on above: Hysterectomy 09/01/24 -Rash/itching on incision areas Start: 09-01-2024 End: 09-01-2024 Patient encounter procedure Beulah Campa MD Work Phone: OB/Gynecology Start: 09-01-2024 End: 09-01-2024 Admission to same day surgery center Dr. Beulah Campa MD -[facility] Start: 09-01-2024 End: 09-01-[address] Maira Escamilla MD Work Phone: -S[facility] Day Care Comment on above: Abnormal uterine ble eding (AUB) (Primary Dx); Adenomyosis of uterus; Intramural uterine fibroid; Menorrhagia with regular cycle Start: 08-31-2024 End: 08-31-2024 Office outpatient visit 15 minutes Roseann Armstrong MD Work Phone: [facility] Comment on above: Otalgia, left (Prima ry Dx) Start: 08-31-2024 End: 08-31-2024 ambulatory ROSEANN ARMSTRONG Facility:[facility] Start: 08-24-2024 End: 08-24-2024 ambulatory BEULAH CAMPA Facility:[facility] Start: 08-24-2024 End: 08-24-2024 Patient encounter procedure Beulah Campa MD Work Phone: OB/Gynecology Comment on above: Adenomyosis of uteru s (Primary Dx); Arcuate uterus; Intramural uterine fibroid; Dysmenorrhea; Abnormal uterine bleeding (AUB) Start: 08-16-2024 End: 09-07-2024 Admission to same day surgery center [facility] OB/Gynecology Comment on above: surgery confirmation Start: 08-16-2024 End: 09-07-2024 E-mail encounter from caregiver [facility] Provider OB/Gynecology Start: 08-16-2024 End: 08-16-2024 Emergency department patient visit Dr. Maira Escamilla MD Work Phone: -Emergency Department Work Phone: Start: 08-07-2024 End: 08-07-2024 ambulatory Makeda Horta RN NURSE BOILERMAKER FITTER Comment on above: Patient Update Start: 08-04-2024 End: 08-04-2024 Patient encounter procedure Makeda Smith APRN.WOODS MANAGER Work Phone: OB/Gynecology Comment on above: Abnormal uterine ble eding (AUB) (Primary Dx); Adenomyosis of uterus Start: 08-04-2024 End: 08-04-2024 ambulatory [place]KEDA [place] Facility:[facility] Start: 08-01-2024 End: 08-01-2024 Patient encounter procedure Beulah Campa MD Work Phone: OB/Gynecology Comment on above: Menorrhagia with reg ular cycle (Primary Dx); Dysmenorrhea Start: 08-01-2024 End: 08-01-2024 ambulatory BEULAH CAMPA Facility:[facility] Start: 07-26-2024 End: 07-26-2024 Telephone encounter Makeda Smith APRN.WOODS MANAGER Work Phone: OB/Gynecology Comment on above: Patient Question Start: 07-22-2024 End: 07-22-2024 Patient encounter procedure Makeda Smith APRN.WOODS MANAGER Work Phone: OB/Gynecology Comment on above: Screening for cervic al cancer (Primary Dx) Start: 07-22-2024 End: 07-22-2024 ambulatory [facility] Facility:[facility] Start: 07-21-2024 Encounter for gynecological examination (general) (routine) without abnormal findings MAIRA ESCAMILLA [facility] Start: 07-21-2024 End: 07-21-2024 Patient encounter status Screen [facility]str [facility] Start: 07-21-2024 End: 07-21-2024 Subsequent hospital visit by physician Screen Mammo [facility] M[facility] Comment on above: Encounter for gyneco logical examination (general) (routine) without abnormal findings [Z01.419] Start: 07-21-2024 End: 07-21-2024 ambulatory [employer] [facility] [employer] Work Phone: OB/Gynecology Start: 07-21-2024 End: 07-21-2024 Patient encounter procedure [employer] [facility] OB/Gynecology Start: 07-19-2024 End: 07-19-2024 Telephone encounter Makeda Smith APRN.WOODS MANAGER Work Phone: OB/Gynecology Comment on above: HPV Vaccine Start: 07-18-2024 End: 07-18-2024 ambulatory Maira Escamilla MD Work Phone: [facility] Comment on above: SVT (supraventricula r tachycardia) (HCC) (Primary Dx); Mild intermittent asthma, unspecified whether complicated (HCC); Gastroesophageal reflux disease without esophagitis; History of gastric bypass Start: 07-18-2024 End: 07-18-2024 Telemedicine consultation with patient Maira Escamilla MD Work Phone: [facility] Start: 07-14-2024 End: 07-14-2024 Chart abstracting Jae Sterling MD Work Phone: Plastic Surgery Comment on above: PHOTOS TAKEN Start: 07-14-2024 End: 07-14-2024 ambulatory MAIRA ESCAMILLA Facility:[facility] Start: 07-14-2024 End: 07-14-2024 Office outpatient visit 25 minutes Bonny Henry APRN.WOODS MANAGER Work Phone: Plastic Surgery Comment on above: Excess skin (Primary Dx); Loose skin Start: 07-12-2024 End: 07-12-2024 ambulatory MAKEDA SMITH Facility:[facility] Start: 07-12-2024 End: 07-12-2024 Patient encounter procedure Makeda Smith WOODS MANAGER Work Phone: OB/Gynecology Comment on above: Encounter for gyneco logical examination (general) (routine) without abnormal findings (Primary Dx); Screening for cervical cancer; Encounter for screening for human papillomavirus (HPV); Encounter for screening mammogram for breast cancer; Menorrhagia with regular cycle; Need for prophylactic vaccination/inoculation against viral disease Start: 07-12-2024 End: 07-12-2024 Patient encounter status Makeda Smith KYLE.WOODS MANAGER Work Phone: [facility] Start: 06-21-2024 End: 08-01-2024 Telephone encounter Jae Sterling MD Work Phone: Plastic Surgery Comment on above: Insurance Authorizat ion Start: 06-09-2024 End: 06-09-2024 Office outpatient visit 15 minutes Bonny Henry APRN.WOODS MANAGER Work Phone: Plastic Surgery Comment on above: S/P panniculectomy ( Primary Dx) Start: 06-09-2024 End: 06-09-2024 ambulatory MAIRA ESCAMILLA Facility:[facility] Start: 06-03-2024 End: 06-03-2024 ambulatory BONNY HENRY Facility:[facility] Start: 06-02-2024 End: 06-02-2024 Emergency department patient visit Dr. Maira Escamilla MD Work Phone: -Emergency Department Work Phone: Start: 05-31-2024 End: 05-31-2024 Admission to same day surgery center Jae Sterling MD Work Phone: Plastic Surgery Comment on above: New Abcess on maria luz bledsoe Start: 05-31-2024 End: 05-31-2024 ambulatory Jae Sterling MD Work Phone: Plastic Surgery Start: 05-27-2024 End: 05-27-2024 Orders Only Bonny Henry APRN.WOODS MANAGER Work Phone: Plastic Surgery Start: 05-26-2024 End: 05-26-2024 Telephone encounter Jae Sterling MD Work Phone: Internal Medicine [place] Comment on above: Abscess (/) Start: 05-12-2024 End: 05-12-2024 ambulatory [facility] Facility:[facility] Start: 05-12-2024 End: 05-12-2024 Office outpatient visit 15 minutes Bonny Henry BURN OUT TENDER LACE.WOODS MANAGER Work Phone: Plastic Surgery Comment on above: S/P panniculectomy ( Primary Dx) Start: 05-01-2024 End: 05-01-2024 ambulatory Adela Mejía RN NURSE BOILERMAKER FITTER Comment on above: Patient Update Start: 04-17-2024 End: 04-18-2024 Refill Anna Nino APRN.WOODS MANAGER Work Phone: [facility] Comment on above: Refill Request Start: 04-14-2024 End: 04-14-2024 [facility] Facility:[facility] Start: 04-14-2024 End: 04-14-2024 Postop follow up visit related to original px Bonny Elaine BURN OUT TENDER LACE.WOODS MANAGER Work Phone: Plastic Surgery Comment on above: Post-operative state (Primary Dx); S/P panniculectomy Start: 04-05-2024 End: 04-06-2024 Telephone encounter Jae Sterling MD Work Phone: Plastic Surgery Comment on above: Multiple Concerns (S ee note) Start: 03-31-2024 End: 03-31-2024 [facility] Facility:[facility] Start: 03-31-2024 End: 03-31-2024 Postop follow up visit related to original px Bonny Elaine BURN OUT TENDER LACE.WOODS MANAGER Work Phone: Plastic Surgery Comment on above: Post-operative state (Primary Dx); S/P panniculectomy Start: 03-28-2024 End: 03-28-2024 Refill Maira Escamilla MD Work Phone: [facility] Comment on above: Refill Request Clinical Update Wound Check Start: 03-26-2024 End: 03-26-2024 ambulatory [facility] Facility:[facility] Start: 03-26-2024 End: 03-26-2024 Patient encounter procedure Starr Ram APRN.WOODS MANAGER Work Phone: [facility] Comment on above: Acute right-sided lo w back pain with right-sided sciatica (Primary Dx) Start: 03-24-2024 End: 03-24-2024 ambulatory [facility] Facility:[facility] Start: 03-24-2024 End: 03-24-2024 Postop follow up visit related to original px Bonny Henry KYLE.WOODS MANAGER Work Phone: Plastic Surgery Comment on above: Post-operative state (Primary Dx); S/P panniculectomy Start: 03-21-2024 End: 03-21-2024 Telephone encounter Jae Sterling MD Work Phone: Plastic Surgery Comment on above: Nausea, stomach upse t; Patient Question Start: 03-14-2024 End: 03-14-2024 ambulatory [facility] Facility:[facility] Start: 03-10-2024 End: 03-10-2024 [facility] Facility:[facility] Start: 03-10-2024 Encounter for other preprocedural examination [facility] Start: 03-10-2024 End: 03-10-2024 [facility] Facility:[facility] Start: 03-10-2024 End: 03-10-2024 Patient encounter procedure Jae Sterling MD Work Phone: Plastic Surgery Comment on above: Class 3 severe obesi ty due to excess calories without serious comorbidity with body mass index (BMI) of 50.0 to 59.9 in adult (HCC) (Primary Dx); Pre-op evaluation Start: 03-10-2024 End: 03-10-2024 Preprocedural examination done Jae Sterling MD Work Phone: [facility] Work Phone: Start: 03-08-2024 End: 03-08-2024 Patient encounter procedure Magdalena Ram [place] [facility] Work Phone: Start: 03-08-2024 End: 03-08-2024 ambulatory Maira Escamilla [place] Start: 03-02-2024 End: 07-14-2024 Telephone encounter Mary Moura APRN.CNP Work Phone: Pre Anesthesia Comment on above: Pre-op Illness Start: 02-29-2024 End: 02-29-2024 [facility]ill [facility] Work Phone: [facility] Start: 02-28-2024 End: 02-28-2024 Patient encounter procedure Octaviano Ayoub PA Work Phone: [place] [facility] Comment on above: Flu-like symptoms (P rimary Dx); Influenza A Start: 02-28-2024 End: 02-28-2024 ambulatory Bobbi Fitzgerald RN NURSE BOILERMAKER FITTER Comment on above: Viral Syndrome Start: 02-23-2024 End: 02-25-2024 Telephone encounter Rola DIANE Navigation Start: 02-22-2024 End: 02-22-2024 Telephone encounter Maira Escamilla MD Work Phone: [facility] [place] Comment on above: Future Appointment Start: 02-22-2024 End: 02-22-[address] [facility] Facility:[facility] Start: 02-22-2024 End: 02-22-2024 Office outpatient visit 15 minutes Anna Nino APRN.WOODS MANAGER Work Phone: [facility] [place] Comment on above: Homeless (Primary Dx ); Anxiety with depression; Screening for depression Start: 02-15-2024 Encounter for other preprocedural examination MAIRA [facility] Start: 02-15-2024 End: 02-15-2024 Admission to establishment Pacc [place] 1 Work Phone: Pre Anesthesia Start: 02-15-2024 End: 02-15-2024 ambulatory MARY MOURA Facility:[facility] Start: 02-15-2024 End: 02-15-2024 Anesthesia consultation Pacc [place] 1 Work Phone: Pre Anesthesia Comment on above: Pre-operative examin ation (Primary Dx); Migraine without status migrainosus, not intractable, unspecified migraine type; SVT (supraventricular tachycardia) (HCC); Mild intermittent asthma, unspecified whether complicated; Gastroesophageal reflux disease without esophagitis; History of gastric bypass Start: 02-15-2024 End: 02-15-2024 Preprocedural examination done [facility] 1 Work Phone: [facility] Work Phone: Start: 02-15-2024 End: 02-15-2024 Telephone encounter Mary Moura APRN.WOODS MANAGER Work Phone: Pre Anesthesia Start: 12-01-2023 ambulatory [facility] Facility:[facility] Start: 11-27-2023 End: 11-27-2023 Patient encounter procedure Jae Sterling MD Work Phone: [facility] Comment on above: Pre-op evaluation (P rimary Dx) Start: 11-27-2023 End: 11-27-2023 Preprocedural examination done Jae Sterling MD Work Phone: [facility] Start: 11-27-2023 End: 11-27-2023 ambulatory JAE STERLING Facility:[facility] Start: 11-27-2023 Encounter for other preprocedural examination JAE L GUSTAVO [facility] Start: 11-17-2023 End: 06-13-2024 Telephone encounter Bonny Henry APRN.WOODS MANAGER Work Phone: Plastic Surgery Comment on above: Insurance Authorizat ion Start: 10-30-2023 End: 10-30-2023 ambulatory [facility] Facility:[facility] Start: 10-30-2023 End: 10-30-2023 Patient encounter procedure Maira Escamilla MD Work Phone: [facility] Comment on above: SVT (supraventricula r tachycardia) [...] PHOTOS TAKEN Start: 10-08-2023 End: 10-08-2023 ambulatory [facility] Facility:[facility] Start: 10-08-2023 End: 10-08-2023 Office outpatient new 45 minutes Bonny Henry BURN OUT TENDER LACE.WOODS MANAGER Work Phone: Plastic Surgery Comment on above: Loose skin (Primary Dx); Abdominal pannus; Rash; Dermatitis; Intertrigo Start: 10-06-2023 End: 10-06-2023 ambulatory [facility] Facility:[facility] Start: 10-06-2023 End: 10-06-2023 [facility] Facility:[facility] Start: 10-06-2023 End: 10-11-2023 Patient encounter procedure Preethi Skinner PA-C Work Phone: Neurology Comment on above: History of migraine (Primary Dx); Headache, unspecified headache type; Tension headache Headache, unspecifie d headache type; Vision loss; Near syncope; Confusion Start: 10-05-2023 End: 10-05-2023 Telephone encounter Maira Escamilla MD Work Phone: [facility] [place] Comment on above: Results (zio) Start: 09-28-2023 End: 09-28-2023 Refill Viviana Marie BURN OUT TENDER LACE.WOODS MANAGER Work Phone: [facility] [place] Comment on above: Refill Request Encounter for surgic al aftercare following surgery of digestive system (Primary Dx); Abdominal pannus; Vitamin D deficiency Start: 09-12-2023 ambulatory Gavi Ibrahim RN NURS E BOILERMAKER FITTER Comment on above: Rib Injury Start: 08-31-2023 End: 08-31-2023 Emergency department patient visit DR SHARON NARANJO MD [facility] Start: 08-25-2023 End: 08-25-2023 Subsequent hospital visit by physician Xr [facility] Work Phone: Radiology Comment on above: URI, acute [J06.9] Start: 08-25-2023 End: 08-25-2023 Patient encounter procedure Maira Escamilla MD Work Phone: Family [facility] [place] Comment on above: Chest pain, unspecif ied type (Primary Dx); Headache, unspecified headache type; History of migraine; Vision loss; Near syncope; URI, acute; Confusion; Acute cough; Recurrent cold sores Start: 08-22-2023 Telephone encounter Maira Escamilla MD Work Phone: Internal Medicine [place] Start: 08-19-2023 Refill Viviana Marie APRN.WOODS MANAGER Work Phone: [facility] Comment on above: Refill Request Start: 07-22-2023 End: 07-22-2023 ambulatory Viviana Marie APRN.WOODS MANAGER Work Phone: [facility] Comment on above: Migraine without sta tus migrainosus, not intractable, unspecified migraine type (Primary Dx); Gastric bypass status for obesity; Cold intolerance; Hyperglycemia; Screening for hyperlipidemia; Cervical radiculopathy Start: 07-22-2023 End: 07-22-2023 Telemedicine consultation with patient Viviana Cynthia WYNNWOODS MANAGER Work Phone: [facility] [place] Start: 07-16-2023 Refill Maira Escamilla MD Work Phone: [facility] [place] Comment on above: Refill Request Start: 05-11-2023 Refill Maira Escamilla MD Work Phone: [facility] [place] Comment on above: Refill Request Start: 05-04-2023 End: 05-04-2023 Patient encounter procedure Alison Joshua Jules DO Work Phone: Endocrinology BMI Comment on above: Encounter for surgic al aftercare following surgery of digestive system (Primary Dx) Start: 04-15-2023 ambulatory Maira Escamilla MD Work Phone: Internal Medicine [facility] Start: 03-20-2023 Refill Hussein cade MD Work Phone: [facility] Comment on above: Refill Request Start: 03-05-2023 End: 03-05-2023 [facility] Start: 02-13-2023 End: 02-13-2023 [facility]: Start: 10-03-2022 End: 10-03-2022 Office outpatient visit 25 minutes Anthony Spear APRN.WOODS MANAGER Work Phone: [facility] Comment on above: Viral bronchitis (Pr imary Dx) Start: 09-30-2022 End: 09-30-2022 [facility] department [facility] Start: 09-30-2022 Telephone encounter Maira Escamilla MD Work Phone: [facility] Comment on above: prescriptions /nebul izer solution/tubing/mouth pc. Start: 2022 End: 2022 Patient encounter procedure Suma Luque APRN.WOODS MANAGER Work Phone: [facility] Comment on above: Viral bronchitis (Pr imary Dx) Start: 06-16-2022 Telephone encounter Maira Escamilla MD Work Phone: [facility] Comment on above: Results Start: 06-11-2022 End: 06-11-2022 Patient encounter procedure Maira Escamilla MD Work Phone: [facility] Comment on above: Lightheaded (Primary Dx); Migraine without status migrainosus, not intractable, unspecified migraine type; Gastric bypass status for obesity Start: 06-05-2022 End: 06-05-2022 ambulatory Maira Escamilla MD Work Phone: [facility] Comment on above: Allergy, subsequent encounter (Primary Dx) Start: 06-05-2022 End: 06-05-2022 Telemedicine consultation with patient Maira Escamilla MD Work Phone: [facility] Start: 05-22-2022 End: 05-22-2022 Patient encounter procedure Maira Escamilla MD Work Phone: [facility] [place] Comment on above: Sciatica, right side (Primary Dx) Start: 05-20-2022 Refill Justin Edison Elder on PA-C Work Phone: [facility] [place] Comment on above: Refill Request Start: 05-19-2022 Telephone encounter Makeda hernandez APRN.WOODS MANAGER Work Phone: OB/Gynecology Comment on above: Medication [...] with patient Alison Jules DO Work Phone: [facility] Start: 04-02-2022 Refill Roseann rod MD Work Phone: [facility] Comment on above: Refill Request Start: 03-31-2022 End: 03-31-2022 Patient encounter procedure Makeda Smith APRN.WOODS MANAGER Work Phone: OB/Gynecology Comment on above: Irregular menses (Pr imary Dx) Start: 03-08-2022 Documentation procedure Mammog mario alberto Coordinator [facility] Start: 03-08-2022 Letter encounter Mammography Coordinator [facility] Department Start: 03-07-2022 End: 03-07-2022 Subsequent hospital visit by physician Screen Mammo [facility] Comment on above: Encounter for screen ing mammogram for breast cancer [Z12.31] Start: 02-22-2022 End: 02-22-2022 Patient encounter procedure Jacqueline [place] APRN.WOODS MANAGER Work Phone: [facility] Comment on above: Sore throat (Primary Dx); Strep throat Start: 01-20-2022 Telephone encounter Maira Escamilla MD Work Phone: [facility] [place] Comment on above: Work excuse letter Start: 01-18-2022 End: 01-18-2022 ambulatory Hussein Morel MD Work Phone: [facility] [place] Comment on above: COVID (Primary Dx) Start: 01-18-2022 End: 01-18-2022 Telemedicine consultation with patient Hussein Morel MD Work Phone: [facility] Start: 01-17-2022 Telephone encounter Maira Escamilla MD Work Phone: [facility] [place] Comment on above: Patient Update Start: 01-10-2022 End: 01-10-2022 Patient encounter procedure Elise Butterfield RD Work Phone: General Surgery Comment on above: No-show for appointm ent (Primary Dx) Start: 01-10-2022 End: 01-10-2022 Telemedicine consultation with patient Elise Butterfield RD Work Phone: [facility] Start: 01-06-2022 Telephone encounter Naresh gomez MD Work Phone: General Surgery Comment on above: Returning Patient's Call Start: 12-10-2021 Telephone encounter Maira Escamilla MD Work Phone: [facility] [place] Comment on above: Prescription Clarifi cation Start: 12-10-2021 End: 12-10-2021 Office outpatient visit 15 minutes Viviana Marie APRN.CNP Work Phone: [facility] [place] Comment on above: Recurrent cold sores (Primary Dx); Chapped lips; Mouth pain Start: 11-16-2021 Leahill Justin Friedman on PA-C Work Phone: [facility] [place] Comment on above: Refill Request Start: 11-07-2021 Telephone encounter Lianne Welch RN General Surgery Comment on above: BMI Follow Up Start: 10-30-2021 End: 10-30-2021 Admission to same day surgery center Fellow Gens Main Work Phone: General Surgery Comment on above: Morbid obesity due t o excess calories (HCC) (Primary Dx); Bariatric surgery status Start: 10-30-2021 End: 10-30-2021 Telemedicine consultation with patient Fellow Ladonna Main Work Phone: [facility] Start: 10-26-2021 Telephone encounter Akshat Pinto MD Work Phone: General Surgery Comment on above: URI Start: 10-23-2021 [facility] Dionicio Faith MD Work Phone: General Surgery Comment on above: Bariatric surgery [facility] at[facility] (Primary Dx) Start: 10-23-2021 End: 10-23-2021 Subsequent hospital visit by physician Nurse Gi Proc 5 Work Phone: Gastroenterology Start: 10-22-2021 [facility] Dionicio Faith MD Work Phone: General Surgery Comment on above: Bariatric surgery [facility] atus (Primary Dx) Start: 10-22-2021 Telephone encounter Sabino schaeffer APRN.WOODS MANAGER Work Phone: [facility] Comment on above: Initial Consult (Urg ent Dispatch) Medication Problem Start: 10-21-2021 [facility] Dionicio Faith MD Work Phone: [...] with patient Fellow Ladonna Main Work Phone: [facility] Start: 10-09-2021 End: 10-09-2021 ambulatory Fellow Ladonna Main Work Phone: General Surgery Comment on above: Morbid obesity due t o excess calories (HCC) (Primary Dx) Start: 10-09-2021 Telephone encounter Lianne Welch RN General Surgery Comment on above: Returning Patient's Call Start: 10-04-2021 Patient Outreach Esther Kirk Urrutia on RN Work Phone: Medical Center Director Management Comment on above: Transition Of Care ( /TCM Initial Hospital Discharge [facility] on 10-03-21./) Post Op Medication Problem Start: 09-24-2021 Telephone encounter Lianne Welch RN General Surgery Comment on above: BMI Follow Up Start: 09-18-2021 End: 09-18-2021 [facility] Work Phone: [facility] Start: 09-18-2021 End: 09-18-2021 ambulatory Naresh [...] asthma, unspecified whether complicated; SVT (supraventricular tachycardia) (HCC) Start: 09-18-2021 End: 09-18-2021 Preprocedural examination done [...] Maira Escamilla MD Work Phone: Internal Medicine [place] Comment on above: Refill Request Start: 08-07-2021 ambulatory Naresh Schmitz MD Work Phone: General Surgery Comment on above: 10/01/2021 Start: 08-07-2021 Preprocedural examination done Naresh Schmitz MD Work Phone: General Surgery Start: 08-06-2021 End: 08-06-2021 Patient encounter procedure Viviana Marie APRN.WOODS MANAGER Work Phone: [facility] Comment on above: Facial rash (Primary Dx) Start: 07-30-2021 End: 07-30-[address] Work Phone: General Surgery Comment on above: Morbid obesity (HCC) (Primary Dx); Dietary counseling and surveillance Start: 07-30-2021 End: 07-30-2021 Telemedicine consultation with patient Daniel Dimlele HANNA Work Phone: [facility] Start: 07-24-2021 End: 07-24-2021 [facility] Cris Danica WRIGHT.WOODS MANAGER Work Phone: General Surgery Comment on above: Class 3 severe obesi ty due to excess calories with body mass index (BMI) of 50.0 to 59.9 in adult, unspecified whether serious comorbidity present (HCC) (Primary Dx); Weight disorder; Medication management Start: 07-15-2021 End: 07-15-2021 Patient encounter procedure Donald Pearl MD Work Phone: [facility] Comment on above: Cubital tunnel syndr ome on left (Primary Dx) Refill Request Start: 06-26-2021 Telephone encounter Maira Escamilla MD Work Phone: [facility] Comment on above: Patient Update Start: 06-24-2021 End: 06-24-2021 Emergency department patient visit [facility] Start: 06-24-2021 ambulatory Maira Escamilla MD Work Phone: [facility] Comment on above: Abdominal Pain Start: 06-24-2021 End: 06-24-2021 Patient encounter procedure Starr Ram APRN.WOODS MANAGER Work Phone: [facility] Comment on above: Abdominal pain, unsp ecified abdominal location (Primary Dx) Start: 06-18-2021 End: 06-18-2021 Patient encounter procedure Alison Jules DO Work Phone: General Surgery Comment on above: Class 3 severe obesi ty with serious comorbidity and body mass index (BMI) of 60.0 to 69.9 in adult, unspecified obesity type (HCC) (Primary Dx) Start: 06-18-2021 Telephone encounter Raul Diaz LPN General Surgery Comment on above: Appointment (Called and got patient added onto Dr. Jules's schedule for 06/18/21 @ 2pm. Pt accepted appointment.) Start: 06-17-2021 Telephone encounter Alison Jules DO Work Phone: General Surgery Comment on above: Appointment (Patient called office. Said she is having trouble scheduling her 5 week appointment, and would like a call back. Her phone number is [phone]. 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) Start: 06-13-2021 ambulatory Alison Lewis Jing gomez DO Work Phone: General Surgery Comment on above: Difficulties Schedul ing Start: 05-22-2021 End: 05-22-[address] Work Phone: General Surgery Comment on above: Morbid obesity (HCC) (Primary Dx); Dietary counseling and surveillance Start: 05-22-2021 End: 05-22-2021 Telemedicine consultation with patient Daniel Dimlele HANNA Work Phone: [facility] Start: 05-21-2021 End: 05-21-2021 Patient encounter procedure Alison Jules DO Work Phone: General Surgery Comment on above: Class 3 severe obesi ty with serious comorbidity and body mass index (BMI) of 60.0 to 69.9 in adult, unspecified obesity type (HCC) (Primary Dx) Start: 05-01-2021 End: 05-01-2021 Subsequent hospital visit by physician Xr [facility] Work Phone: Radiology Comment on above: Class 3 severe obesi ty due to excess calories without serious comorbidity with body mass index (BMI) of 60.0 to 69.9 in adult (HCC) [E66.01, Z68.44] Start: 02-22-2021 End: 02-22-2021 Subsequent hospital visit by physician Xr [facility] Ronn Work Phone: Radiology Comment on above: Pain [R52] Start: 09-27-2019 End: 09-27-2019 Patient encounter procedure Sri Duran BURN OUT TENDER LACE-WOODS MANAGER Work Phone: [facility] Work Phone: Start: 09-27-2019 End: 09-27-2019 Pt evaluation Sri Duran BURN OUT TENDER LACE-WOODS MANAGER Work Phone: [facility] Work Phone: Procedures Date Procedure Procedure Detail Performing Clinician Start: 09-01-[address] Maira Escamilla MD Work Phone: Start: 08-16-2024 SARS-CoV-2, Influenz a & RSV (PCR) Dr. Maira Escamilla MD Work Phone: Start: 08-16-2024 Urnls dip stick/tabl et reagent auto microscopy Dr. Maira Escamilla MD Work Phone: Start: 08-16-2024 Plain chest X-ray Dr. Ace Escamilla MD Work Phone: Start: 08-16-[address] Maira Escamilla MD Work Phone: Start: 08-04-2024 UA DIP,URINE HCG (POC) Makeda Lynn BURN OUT TENDER LACE.WOODS MANAGER Work Phone: Start: 07-21-2024 Us pelvic nonobstetr ic real-time image complete Makeda Lynn BURN OUT TENDER LACE.WOODS MANAGER Work Phone: Start: 06-02-[address] Maira Esacmilla MD Work Phone: Start: 06-02-[address] Ras Escamilla MD Work Phone: Start: 02-28-2024 INFLUENZA A&B MOLECU LAR (POC) Octaviano SINGH Work Phone: Start: 02-22-2024 Adult depression scr eening assessment Maira Escamilla MD Work Phone: Start: 10-30-2023 PFIZER-BIONTECH COVI D-19 VACCINE AGE 12+ YR Maira Escamilla MD Work Phone: Start: 10-06-2023 Electroencephalogram w/rec awake&drowsy Maira Escamilla MD Work Phone: Start: 08-25-2023 Radiologic exam ches t 2 views Maira Escamilla MD Work Phone: Start: 02-13-2023 SARS-CoV-2, Influenz [...] 05-01-2021 Adult depression scr eening assessment Alison Briekathia DO Work Phone: Start: 02-22-2021 Radiologic exam knee complete 4/more views Pan Hyman MD Work Phone: Start: 09-27-2019 End: 09-27-2019 Blood pressure screening not performed - reason not given Sri MALONE Work Phone: Start: 09-27-2019 End: 09-27-2019 BMI documented as above normal parameters - follow-up documented Sri MALONE Work Phone: Start: 09-27-2019 End: 09-27-2019 Documentation of current medications Sri MALONE Work Phone: Start: 09-27-2019 End: 09-27-2019 Pain assessment documented as positive - follow-up documented Sri Millermessi BURN OUT TENDER LACE-WOODS MANAGER Work Phone: Start: 09-27-2019 End: 09-27-2019 Tobacco non-user Sri Duran BURN OUT TENDER LACE-WOODS MANAGER Work Phone: H/O: surgery S/P panniculectomy Bonny Pat christi BURN OUT TENDER LACE.WOODS MANAGER Work Phone: H/O: surgery S/P panniculectomy Bonny Pat christi BURN OUT TENDER LACE.WOODS MANAGER Work Phone: H/O: surgery S/P panniculectomy Bonny Pat christi BURN OUT TENDER LACE.WOODS MANAGER Work Phone: H/O: surgery S/P panniculectomy Bonny Pat christi BURN OUT TENDER LACE.WOODS MANAGER Work Phone: H/O: surgery S/P panniculectomy Bonny Pat christi BURN OUT TENDER LACE.WOODS MANAGER Work Phone: H/O: tubal ligation History of b ilateral tubal ligation History of cholecystectomy Hx of cholecys tectomy Comment on above: 2010 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 Comment on above: September 2021 NEGATED: Highlighted rowStart: 09-27-2019 End: 09-27-2019 Documentation of current medications Shirley Ashlye AT Plan of Treatment Date Care Activity Detail Author Start: 07-22-2029 Screening for malignant neoplasm of cervix Cervical Cancer Screening [facility] Start: 07-12-2029 Screening for malignant neoplasm of cervix Cervical Cancer Screening [facility] Start: 07-21-2025 Screening for malignant neoplasm of breast Mammogram Screening [facility] Start: 07-18-2025 Annual PCP Team Chronic Disease Visit Annual PCP Team Chronic Disease Visit [facility] Start: 07-13-2025 End: 07-13-2025 Patient encounter procedure 07/13/2025 1:30 PM EDT Office Visit OB/[place] [address] [place] [address] Makeda Smith APRN.WOODS MANAGER [address] [place] [address] annual OB/Gynecology Comment on above: annual Start: 02-21-2025 Annual PCP Team Chronic Disease Visit Annual PCP Team Chronic Disease Visit [facility] Start: 02-21-2025 Anxiety Screening Anxiety Screening [facility] Start: 02-21-2025 Depression Screening Depression Screening [facility] Start: 01-11-2025 End: 01-11-2025 Nursing evaluation of patient and report 01/11/2025 9:00 AM EST Nurse Visit OB/Gynecology [address] [place] [id number] Wstr, Nurse Gasateria Attendant [facility] [address] [place] [address] hpv vaccine OB/Gynecology Comment on above: hpv vaccine Start: 01-08-2025 9vhpv vacc 2/3 dose sched im use HPV VACCINE, 9-VALENT (GARDASIL 9) Immunization/Injection Routine Need for prophylactic vaccination/inoculation against viral disease Expected: 01/08/2025 (Approximate) [facility] Comment on above: Expected: 01/08/2025 (Approximate) Start: 10-29-2024 Annual PCP Team Chronic Disease Visit Annual PCP Team Chronic Disease Visit [facility] Start: 10-29-2024 Anxiety Screening Anxiety Screening [facility] Comment on above: Postponed from 09/28/1997 (Declined at t his time) Start: 10-29-2024 Hepatitis B Vaccine (1 of 3 - 19+ 3-dose series) Hepatitis B Vaccine (1 of 3 - 19+ 3-dose series) [facility] Comment on above: Postponed from 09/28/1998 (Declined at t his time) Start: 10-29-2024 Urine microalbumin profile DTaP,Tdap,Td Vaccine (1 - Tdap) [facility] Comment on above: Postponed from 06/29/2013 (Declined at t his time) Start: 10-13-2024 End: 10-13-2024 Patient encounter procedure 10/13/2024 10:50 AM EDT Office Visit OB/Gynecology [address] [place] [id number] Beulah Campa MD [address] [place], [place] [id number] POST OP OB/Gynecology Comment on above: POST OP Start: 10-10-2024 Influenza vaccination Influenza Vaccine (#1) [facility] Start: 09-12-2024 End: 09-12-2024 Nursing evaluation of patient and report 09/12/2024 4:00 PM EDT Nurse Visit OB/Gynecology [address] [place], [place] [id number] Wstr, Nurse Gasateria Attendant [facility] [address] [place], [place] [id number] HPV vaccine OB/Gynecology Comment on above: HPV vaccine Start: 09-11-2024 Subsequent hospital visit by physician 09/11/2024 Hospital Encounter [facility] [address] [address] Jae Sterling MD [address] [place], [place] [id number] Excess skin [L98.7], Loose skin [L98.7] [facility] Comment on above: Excess skin [L98.7], Loose skin [L98.7] Start: 09-10-2024 9vhpv vacc 2/3 dose sched im use HPV VACCINE, 9-VALENT (GARDASIL 9) Immunization/Injection Routine Need for prophylactic vaccination/inoculation against viral disease Expected: 09/10/2024 (Approximate) [facility] Comment on above: Expected: 09/10/2024 (Approximate) Start: 09-10-2024 End: 09-10-2024 Orders Only 09/10/2024 Orders Only OB/Gynecology [address] [place], [place] [phone] Makeda Smith APRN.WOODS MANAGER [address] [place], [place] [phone] Need for prophylactic vaccination/inoculation against viral disease OB/Gynecology Comment on above: Need for prophylactic vaccination/inocul ation against viral disease Start: 09-09-2024 End: 09-09-2024 Patient encounter procedure OB/Gynecology Comment on above: POST OP POST OP - path repor t in binder Start: 09-01-2024 Patient discharge [facility] Start: 09-01-2024 Planned voiding [facility] Start: 09-01-2024 Ambulation without limitation [facility] Start: 09-01-2024 Medication education [facility] Start: 09-01-2024 Procedure discontinued [facility] Start: 09-01-2024 Taking patient vital signs [facility] Start: 09-01-2024 Vital signs measurements [facility] Start: 09-01-2024 [facility] Start: 08-24-2024 Annual PCP Team Chronic Disease Visit Annual PCP Team Chronic Disease Visit [facility] Start: 08-21-2024 Subsequent hospital visit by physician 08/21/2024 Hospital Encounter [facility] [address] [id number] Jae Sterling MD [address] [place] [address] Excess skin [L98.7], Loose skin [L98.7] [facility] Comment on above: Excess skin [L98.7], Loose skin [L98.7] Start: 08-16-2024 [facility] Start: 08-07-2024 HPV TESTING HPV TESTING [facility] Start: 08-07-2024 PAP TESTING PAP TESTING [facility] Start: 08-07-2024 Screening for malignant neoplasm of cervix [facility] Start: 08-07-2024 Subsequent hospital visit by physician 08/07/2024 Hospital Encounter Surgery [facility] [address] [address] Jae Sterling MD [address] [place] [address] Excess skin [L98.7], Loose skin [L98.7] Surgery Center Comment on above: Excess skin [L98.7], Loose skin [L98.7] Start: 08-04-2024 End: 08-04-2024 Patient encounter procedure 08/04/2024 9:30 AM EDT Office Visit OB/Gynecology [address] [place] [address] Makeda Smith APRN.WOODS MANAGER [address] [place] [address] Menorrhagia with regular cycle [N92.0] OB/Gynecology Comment on above: Menorrhagia with regular cycle [N92.0] Start: 08-01-2024 End: 08-01-2024 Patient encounter procedure 08/01/2024 9:20 AM EDT Office Visit OB/Gynecology [address] [place] [address] Beulah Campa MD [address] [place] [address] Discuss Hysterectomy OB/Gynecology Comment on above: Discuss Hysterectomy Start: 07-22-2024 End: 07-22-2024 Patient encounter procedure 07/22/2024 10:15 AM EDT Office Visit OB/Gynecology [address] [place] [address] Makeda Smith APRN.WOODS MANAGER [address] [place] [address] redo pap-per TE OB/Gynecology Comment on above: redo pap-per TE Start: 07-21-2024 Annual PCP Team Chronic Disease Visit Annual PCP Team Chronic Disease Visit [facility] Start: 07-21-2024 End: 07-21-2024 Patient encounter procedure 07/21/2024 11:10 AM EDT Appointment Mammogram [address] [place] [address] Encounter for screening mammogram for breast cancer [Z12.31] Mammogram Comment on above: Encounter for screening mammogram for br east cancer [Z12.31] Start: 07-21-2024 End: 07-21-2024 ambulatory 07/21/2024 10:00 AM EDT Procedure OB/Gynecology [address] [place] [address] Remote, [employer] Consultant [facility] [address] [place] [address] Menorrhagia with regular cycle [N92.0] OB/Gynecology Comment on above: Menorrhagia with regular cycle [N92.0] Start: 07-14-2024 End: 07-14-2024 Patient encounter procedure 07/14/2024 1:00 PM EDT Office Visit Plastic Surgery [address] [place] [address] Bonny Henry APRN.WOODS MANAGER [address] [place] [address] Surgery consult Plastic Surgery Comment on above: Surgery consult Start: 07-12-2024 End: 07-12-2025 US Pelvis PELVIC US WHI Anc Imaging Routine Menorrhagia with regular cycle Expected: 07/12/2024, Expires: 07/12/2025 [facility] Comment on above: Expected: 07/12/2024, Expires: Start: 06-09-2024 End: 06-09-2024 Patient encounter procedure 06/09/2024 11:20 AM EDT Office Visit Plastic Surgery [address] [place] [address] Bonny Henry, KYLE.WOODS MANAGER [address] [place] [address] follow up in 1 month Plastic Surgery Comment on above: follow up in 1 month Start: 06-03-2024 End: 06-03-2024 Patient encounter procedure 06/03/2024 1:00 PM EDT [place] [address] [place] [address] Bonny Henry, KYLE.WOODS MANAGER [address] [place] [address] possible infected spitting suture [facility] Comment on above: possible infected spitting suture Start: 06-02-2024 [facility] Start: 06-02-2024 [facility] Start: 06-02-2024 Bacteria identified in Blood by Culture Blood Culture [facility] Start: 05-27-2024 End: 08-26-2024 NICOTINE/COTININE NICOTINE/COTININE Lab Routine Pre-op evaluation Expected: 05/27/2024 (Approximate), Expires: 08/26/2024 [facility] Work Phone: Comment on above: Expected: 05/27/2024 (Approximate), Expi res: 08/26/2024 Start: 05-12-2024 End: 05-12-2024 Patient encounter procedure 05/12/2024 10:00 AM EDT Office Visit Plastic Surgery [address] [place] [address] Bonny Henry, BURN OUT TENDER LACE.WOODS MANAGER [address] [place] [address] FOLLOW 2 WEEKS Plastic Surgery Comment on above: FOLLOW 2 WEEKS Start: 04-14-2024 End: 04-14-2024 Patient encounter procedure 04/14/2024 11:40 AM EST Office Visit Plastic Surgery [address] [place] [address] Bonny Henry, BURN OUT TENDER LACE.WOODS MANAGER [address] [place] [address] FOLLOW 2 WEEKS Plastic Surgery Comment on above: FOLLOW 2 WEEKS Start: 03-31-2024 End: 03-31-2024 Patient encounter procedure 03/31/2024 1:20 PM EST Office Visit Plastic Surgery [address] [place] [address] Bonny Henry, BURN OUT TENDER LACE.WOODS MANAGER [address] [place] [address] 1 week Plastic Surgery Comment on above: 1 week Start: 03-24-2024 End: 03-24-2024 Patient encounter procedure 03/24/2024 11:00 AM EST Office Visit Plastic Surgery [id number] [place] [address] Bonny Henry APRN.WOODS MANAGER [address] [place] [address] post op Plastic Surgery Comment on above: post op Start: 03-14-2024 End: 03-14-2024 Admission to same day surgery center 03/14/2024 7:30 AM EST - 03/14/2024 12:00 PM EST Surgery Ambulatory Surgery [address] [place] [id number] Jae Sterling MD [address] [place] [address] PANNICULECTOMY Ambulatory Surgery Comment on above: PANNICULECTOMY Start: 03-14-2024 End: 03-14-2024 Excision skin abd infraumbilical panniculectomy PANNICULECTOMY Abdominal pannus Loose skin Rash Dermatitis Intertrigo 03/14/2024 7:30 AM EST [facility] Start: 03-14-2024 Subsequent hospital visit by physician 03/14/2024 7:30 AM EST Hospital Encounter Ambulatory Surgery [address] [place] [address] Jae Sterling MD [address] [place] [address] Abdominal pannus [E65], Loose skin [L98.7], Rash [R21], Dermatitis [L30.9], Intertrigo [L30.4] Ambulatory Surgery Comment on above: Abdominal pannus [E65], Loose skin [L98. 7], Rash [R21], Dermatitis [L30.9], Intertrigo [L30.4] Start: 03-11-2024 End: 03-11-2024 Patient encounter procedure 03/11/2024 10:00 AM EST Office Visit [facility] [address] [place] [address] Anna Nino, BURN OUT TENDER LACE.WOODS MANAGER [address] [place] [address] 3 week [facility] Comment on above: 3 week depression follow up Start: 03-10-2024 End: 03-10-2024 Patient encounter procedure 03/10/2024 11:30 AM EST Office Visit Plastic Surgery [address] [place] [address] Jae Sterling MD [address] [place], [place] [id number] pre op Plastic Surgery Comment on above: pre op Start: 03-08-2024 Patient referral [facility] Work Phone: Start: 02-03-2024 Subsequent hospital visit by physician 02/03/2024 Hospital Encounter Surgery Center [address] [place] [address] Jae Sterling MD [address] [place] [address] Abdominal pannus [E65] Surgery Center Comment on above: Abdominal pannus [E65] Start: 12-21-2023 End: 12-21-2023 Patient encounter procedure 12/21/2023 6:20 PM EST Office Visit [facility] [address] [place] [address] Maira Escamilla MD [address] [place], [place] [id number] 6 week follow up [facility] Comment on above: 6 week follow up Start: 12-15-2023 End: 12-15-2023 Patient encounter procedure Mammogram Comment on above: Breast pain [N64.4] Comp-Bilat Breast pa in Start: 12-13-2023 Subsequent hospital visit by physician 12/13/2023 Hospital Encounter Surgery Center [address] [place] [address] Jae Sterling MD [address] [place] [address] Abdominal pannus [E65], Loose skin [L98.7], Rash [R21], Dermatitis [L30.9], Intertrigo [L30.4] Surgery Center Comment on above: Abdominal pannus [E65], Loose skin [L98. 7], Rash [R21], Dermatitis [L30.9], Intertrigo [L30.4] Start: 12-07-2023 End: 12-07-2023 Patient encounter procedure 12/07/2023 8:30 AM EDT Office Visit [facility] [address] [place] [address] Suleiman Panchal MD [address] [place] [address] Needs to established with [place] seen by dr Sterling 11/27/23 [facility] Comment on above: Needs to established with dashawn Panchal b chely Sterling 11/27/23 Start: 10-30-2023 End: 10-30-2023 Patient encounter procedure 10/30/2023 4:40 PM EDT Office Visit Family Medicine Michael [address] [place] [address] Maira Escamilla MD [address] [place] [address] Follow up SVT. Migraines and dizziness [facility] Comment on above: Follow up SVT. Migraines and dizziness Start: 10-30-2023 End: 01-29-2024 25-hydroxyvitamin D3 [Mass/volume] in Serum or Plasma VITAMIN D 25 HYDROXY Lab Routine History of gastric bypass Vitamin D deficiency Expected: 10/30/2023, Expires: 01/29/2024 [facility] Comment on above: Expected: 10/30/2023, Expires: Start: 10-30-2023 End: 01-29-2024 CBC W Auto Differential panel - Blood COMPLETE BLOOD COUNT AND DIFFERENTIAL Lab Routine History of gastric bypass Expected: 10/30/2023, Expires: 01/29/2024 [facility] Comment on above: Expected: 10/30/2023, Expires: Start: 10-30-2023 End: 01-29-2024 Cobalamin (Vitamin B12) [Mass/volume] in Serum or Plasma VITAMIN B12 Lab Routine History of gastric bypass Expected: 10/30/2023, Expires: 01/29/2024 [facility] Comment on above: Expected: 10/30/2023, Expires: Start: 10-30-2023 End: 01-29-2024 Comprehensive metabolic 2000 panel - Serum or Plasma COMPREHENSIVE METABOLIC PANEL Lab Routine History of gastric bypass Expected: 10/30/2023, Expires: 01/29/2024 [facility] Comment on above: Expected: 10/30/2023, Expires: Start: 10-30-2023 Depression Screening Depression Screening [facility] Comment on above: Postponed from 09/28/1997 (Declined at t his time) Start: 10-30-2023 End: 01-29-2024 Folate [Mass/volume] in Serum or Plasma FOLATE, SERUM Lab Routine History of gastric bypass Expected: 10/30/2023, Expires: 01/29/2024 [facility] Comment on above: Expected: 10/30/2023, Expires: Start: 10-30-2023 End: 01-29-2024 Iron and Iron binding capacity panel - Serum or Plasma IRON AND TIBC Lab Routine History of gastric bypass Expected: 10/30/2023, Expires: 01/29/2024 [facility] Comment on above: Expected: 10/30/2023, Expires: Start: 10-14-2023 End: 10-14-2023 Patient encounter procedure 10/14/2023 4:00 PM EDT Office Visit Family [facility] [address] [place] [id number] Maira Escamilla MD [address] [place] [address] EEG follow up [facility] Lynette [place] Comment on above: EEG follow up Start: 10-11-2023 Covid-19 Vaccine ( season) Covid-19 Vaccine () [facility] Start: 10-11-2023 Influenza vaccination [facility] Start: 10-08-2023 End: 10-08-2023 Patient encounter procedure 10/08/2023 10:00 AM EDT Office Visit Plastic Surgery [address] [place] [address] Bonny Henry APRN.WOODS MANAGER [address] [place] [address] Abdominal pannus [E65] Plastic Surgery Comment on above: Abdominal pannus [E65] Start: 10-06-2023 End: 10-06-2023 Patient encounter procedure 10/06/2023 9:00 AM EDT Office Visit Neurology [address] [place], [place] [phone] Preethi Skinner PA-C [address] [place] [address] Headache, unspecified headache type [R51.9] Neurology Comment on above: Headache, unspecified headache type [R51 .9] Start: 09-28-2023 End: 09-28-2023 Patient encounter procedure 09/28/2023 2:45 PM EDT Office Visit General Surgery [address] [place] [address] Alison Jules, DO [address] [place] [address] 5 Month Follow Up General Surgery Comment on above: 5 Month Follow Up Start: 09-28-2023 End: 12-28-2023 25-hydroxyvitamin D3 [Mass/volume] in Serum or Plasma VITAMIN D 25 HYDROXY Lab Routine Vitamin D deficiency Expected: 09/28/2023, Expires: 12/28/2023 [facility] Work Phone: Comment on above: Expected: 09/28/2023, Expires: Start: 09-28-2023 End: 12-28-2023 Parathyrin.intact [Mass/volume] in Serum or Plasma PTH INTACT Lab Routine Vitamin D deficiency Expected: 09/28/2023, Expires: 12/28/2023 [facility] Comment on above: Expected: 09/28/2023, Expires: Start: 09-25-2023 End: 09-25-2023 Patient encounter procedure 09/25/2023 11:45 AM EDT Office Visit Neurology [address] [place] [address] Headache, unspecified headache type [R51.9] Neurology Comment on above: Headache, unspecified headache type [R51 .9] Start: 09-07-2023 End: 09-07-2023 Patient encounter procedure 09/07/2023 1:30 PM EDT Office Visit [facility] [address] [place] [address] Oneyda Ortiz, OD [address] [facility] [address] [place] [address] Vision loss [H54.7] [facility] Comment on above: Vision loss [H54.7] Start: 08-25-2023 End: 08-25-2023 Patient encounter procedure 08/25/2023 2:00 PM EDT Office Visit [facility] [address] [facility] [place] [address] Maira Escamilla MD [address] [facility] [place] [address] Hospital follow up [facility] Comment on above: Hospital follow up Start: 08-24-2023 End: 08-24-2023 Patient encounter procedure [facility] Comment on above: Annual [facility] follow up. Admit scottie 08/20/23. Start: 08-03-2023 End: 08-03-2023 Patient encounter procedure 08/03/2023 3:20 PM EDT Office Visit [facility] [place] [address] [place] [address] Viviana Marie, BURN OUT TENDER LACE.WOODS MANAGER [address] [place] [address] Annual [facility] Medicine [place] Comment on above: Annual Start: 07-22-2023 End: 10-21-2023 25-hydroxyvitamin D3 [Mass/volume] in Serum or Plasma VITAMIN D 25 HYDROXY Lab Routine Gastric bypass status for obesity Expected: 07/22/2023, Expires: 10/21/2023 [facility] Comment on above: Expected: 07/22/2023, Expires: Start: 07-22-2023 End: 10-21-2023 CBC W Auto Differential panel - Blood COMPLETE BLOOD COUNT AND DIFFERENTIAL Lab Routine Cold intolerance Expected: 07/22/2023, Expires: 10/21/2023 [facility] Work Phone: Comment on above: Expected: 07/22/2023, Expires: Start: 07-22-2023 End: 10-21-2023 Cobalamin (Vitamin B12) [Mass/volume] in Serum or Plasma VITAMIN B12 Lab Routine Gastric bypass status for obesity Expected: 07/22/2023, Expires: 10/21/2023 [facility] Comment on above: Expected: 07/22/2023, Expires: Start: 07-22-2023 End: 10-21-2023 Comprehensive metabolic 2000 panel - Serum or Plasma COMPREHENSIVE METABOLIC PANEL Lab Routine Hyperglycemia Expected: 07/22/2023, Expires: 10/21/2023 [facility] Comment on above: Expected: 07/22/2023, Expires: Start: 07-22-2023 End: 10-21-2023 Ferritin [Mass/volume] in Serum or Plasma FERRITIN Lab Routine Gastric bypass status for obesity Expected: 07/22/2023, Expires: 10/21/2023 [facility] Comment on above: Expected: 07/22/2023, Expires: Start: 07-22-2023 End: 10-21-2023 Folate [Mass/volume] in Serum or Plasma FOLATE, SERUM Lab Routine Gastric bypass status for obesity Expected: 07/22/2023, Expires: 10/21/2023 [facility] Comment on above: Expected: 07/22/2023, Expires: Start: 07-22-2023 End: 10-21-2023 Iron and Iron binding capacity panel - Serum or Plasma IRON AND TIBC Lab Routine Gastric bypass status for obesity Expected: 07/22/2023, Expires: 10/21/2023 [facility] Comment on above: Expected: 07/22/2023, Expires: Start: 07-22-2023 End: 10-21-2023 LIPID PANEL, NONFASTING LIPID PANEL, NONFASTING Lab Routine Screening for hyperlipidemia Expected: 07/22/2023, Expires: 10/21/2023 [facility] Comment on above: Expected: 07/22/2023, Expires: Start: 07-22-2023 End: 10-21-2023 Thyrotropin [Units/volume] in Serum or Plasma THYROID STIMULATING HORMONE Lab Routine Cold intolerance Expected: 07/22/2023, Expires: 10/21/2023 [facility] Comment on above: Expected: 07/22/2023, Expires: 4 Start: 07-22-2023 End: 10-21-2023 Thyroxine (T4) free [Mass/volume] in Serum or Plasma T4 FREE/FREE THYROXINE Lab Routine Cold intolerance Expected: 07/22/2023, Expires: 10/21/2023 [facility] Comment on above: Expected: 07/22/2023, Expires: Start: 07-22-2023 End: 10-21-2023 VITAMIN B1 (THIAMINE), WHOLE BLOOD VITAMIN B1 (THIAMINE), WHOLE BLOOD Lab Routine Gastric bypass status for obesity Expected: 07/22/2023, Expires: 10/21/2023 [facility] Comment on above: Expected: 07/22/2023, Expires: Start: 07-17-2023 End: 07-17-2023 Patient encounter procedure 07/17/2023 2:20 PM EDT Office Visit Family Medicine [place] [address] [place], [place] [id number] Anna Nino APRN.COKE BURNER [address] [place], [place] [id number] physical Family Medicine [place] Comment on above: physical Start: 06-28-2023 ANNUAL PCP TEAM CHRONIC DISEASE VISIT ANNUAL PCP TEAM CHRONIC DISEASE VISIT [facility] Start: 06-12-2023 ANNUAL PCP TEAM CHRONIC DISEASE VISIT ANNUAL PCP TEAM CHRONIC DISEASE VISIT [facility] Start: 06-06-2023 ANNUAL PCP TEAM CHRONIC DISEASE VISIT ANNUAL PCP TEAM CHRONIC DISEASE VISIT [facility] Start: 05-23-2023 ANNUAL PCP TEAM CHRONIC DISEASE VISIT ANNUAL PCP TEAM CHRONIC DISEASE VISIT [facility] Start: 03-07-2023 Mammography [facility] Start: 03-07-2023 Screening for malignant neoplasm of breast Mammogram Screening [facility] Start: 03-05-2023 [facility] Start: 02-13-2023 [facility] Start: 02-09-2023 Behavioral Health Screening Behavioral Health Screening [facility] Start: 02-09-2023 Depression Assessment Depression Assessment [facility] Start: 01-18-2023 ANNUAL PCP TEAM CHRONIC DISEASE VISIT ANNUAL PCP TEAM CHRONIC DISEASE VISIT [facility] Start: 12-10-2022 ANNUAL PCP TEAM CHRONIC DISEASE VISIT ANNUAL PCP TEAM CHRONIC DISEASE VISIT [facility] Start: 10-10-2022 Covid-19 Vaccine ( season) Covid-19 Vaccine () [facility] Start: 10-10-2022 Influenza vaccination [facility] Start: 08-06-2022 ANNUAL PCP TEAM CHRONIC DISEASE VISIT ANNUAL PCP TEAM CHRONIC DISEASE VISIT [facility] Start: 07-15-2022 ANNUAL PCP TEAM CHRONIC DISEASE VISIT ANNUAL PCP TEAM CHRONIC DISEASE VISIT [facility] Start: 06-16-2022 End: 08-16-2022 Hemoglobin A1c in Blood HGB A1C Lab Routine Hyperglycemia Expected: 06/16/2022, Expires: 08/16/2022 [facility] Work Phone: Comment on above: Expected: 06/16/2022, Expires: Start: 06-11-2022 End: 08-11-2022 25-hydroxyvitamin D3 [Mass/volume] in Serum or Plasma VITAMIN D 25 HYDROXY Lab Routine Gastric bypass status for obesity Expected: 06/11/2022, Expires: 08/11/2022 [facility] Work Phone: Comment on above: Expected: 06/11/2022, Expires: Start: 06-11-2022 End: 08-11-2022 CBC W Auto Differential panel - Blood CBC + DIFF Lab Routine Gastric bypass status for obesity Expected: 06/11/2022, Expires: 08/11/2022 [facility] Work Phone: Comment on above: Expected: 06/11/2022, Expires: Start: 06-11-2022 End: 08-11-2022 Cobalamin (Vitamin B12) [Mass/volume] in Serum or Plasma VITAMIN B12 BLOOD Lab Routine Gastric bypass status for obesity Expected: 06/11/2022, Expires: 08/11/2022 [facility] Work Phone: Comment on above: Expected: 06/11/2022, Expires: Start: 06-11-2022 End: 08-11-2022 Comprehensive metabolic 2000 panel - Serum or Plasma COMP METABOLIC PANEL Lab Routine Gastric bypass status for obesity Expected: 06/11/2022, Expires: 08/11/2022 [facility] Work Phone: Comment on above: Expected: 06/11/2022, Expires: Start: 06-11-2022 End: 08-11-2022 Folate [Mass/volume] in Serum or Plasma FOLATE SERUM Lab Routine Gastric bypass status for obesity Expected: 06/11/2022, Expires: 08/11/2022 [facility] Work Phone: Comment on above: Expected: 06/11/2022, Expires: Start: 06-11-2022 End: 08-11-2022 Iron and Iron binding capacity panel - Serum or Plasma IRON + TIBC Lab Routine Gastric bypass status for obesity Expected: 06/11/2022, Expires: 08/11/2022 [facility] Work Phone: Comment on above: Expected: 06/11/2022, Expires: Start: 06-11-2022 End: 08-11-2022 Thyrotropin [Units/volume] in Serum or Plasma TSH BLD Lab Routine Lightheaded Expected: 06/11/2022, Expires: 08/11/2022 [facility] Work Phone: Comment on above: Expected: 06/11/2022, Expires: Start: 06-11-2022 End: 08-11-2022 VITAMIN B1 (THIAMINE), WHOLE BLOOD VITAMIN B1 (THIAMINE), WHOLE BLOOD Lab Routine Gastric bypass status for obesity Expected: 06/11/2022, Expires: 08/11/2022 [facility] Work Phone: Comment on above: Expected: 06/11/2022, Expires: Start: 05-01-2022 Adult depression screening assessment DEPRESSION SCREENING [facility] Start: 04-25-2022 ANNUAL PCP TEAM CHRONIC DISEASE VISIT ANNUAL PCP TEAM CHRONIC DISEASE VISIT [facility] Start: 04-11-2022 End: 06-11-2022 25-hydroxyvitamin D3 [Mass/volume] in Serum or Plasma VITAMIN D 25 HYDROXY Lab Routine Encounter for surgical aftercare following surgery of digestive system Expected: 04/11/2022, Expires: 06/11/2022 [facility] Work Phone: Comment on above: Expected: 04/11/2022, Expires: Start: 04-11-2022 End: 06-11-2022 CBC W Auto Differential panel - Blood CBC + DIFF Lab Routine Encounter for surgical aftercare following surgery of digestive system Expected: 04/11/2022, Expires: 06/11/2022 [facility] Work Phone: Comment on above: Expected: 04/11/2022, Expires: 3 Start: 04-11-2022 End: 06-11-2022 Cobalamin (Vitamin B12) [Mass/volume] in Serum or Plasma VITAMIN B12 BLOOD Lab Routine Encounter for surgical aftercare following surgery of digestive system Expected: 04/11/2022, Expires: 06/11/2022 [facility] Work Phone: Comment on above: Expected: 04/11/2022, Expires: Start: 04-11-2022 End: 06-11-2022 Comprehensive metabolic 2000 panel - Serum or Plasma COMP METABOLIC PANEL Lab Routine Encounter for surgical aftercare following surgery of digestive system Expected: 04/11/2022, Expires: 06/11/2022 [facility] Work Phone: Comment on above: Expected: 04/11/2022, Expires: Start: 04-11-2022 End: 06-11-2022 Ferritin [Mass/volume] in Serum or Plasma FERRITIN BLD Lab Routine Encounter for surgical aftercare following surgery of digestive system Expected: 04/11/2022, Expires: 06/11/2022 [facility] Work Phone: Comment on above: Expected: 04/11/2022, Expires: Start: 04-11-2022 End: 06-11-2022 Folate [Mass/volume] in Serum or Plasma FOLATE SERUM Lab Routine Encounter for surgical aftercare following surgery of digestive system Expected: 04/11/2022, Expires: 06/11/2022 [facility] Work Phone: Comment on above: Expected: 04/11/2022, Expires: Start: 04-11-2022 End: 06-11-2022 Iron and Iron binding capacity panel - Serum or Plasma IRON + TIBC Lab Routine Encounter for surgical aftercare following surgery of digestive system Expected: 04/11/2022, Expires: 06/11/2022 [facility] Work Phone: Comment on above: Expected: 04/11/2022, Expires: 3 Start: 04-11-2022 End: 06-11-2022 Parathyrin.intact [Mass/volume] in Serum or Plasma PTH INTACT BLD Lab Routine Encounter for surgical aftercare following surgery of digestive system Expected: 04/11/2022, Expires: 06/11/2022 [facility] Work Phone: Comment on above: Expected: 04/11/2022, Expires: Start: 04-11-2022 End: 06-11-2022 VITAMIN B1 (THIAMINE), WHOLE BLOOD VITAMIN B1 (THIAMINE), WHOLE BLOOD Lab Routine Encounter for surgical aftercare following surgery of digestive system Expected: 04/11/2022, Expires: 06/11/2022 [facility] Work Phone: Comment on above: Expected: 04/11/2022, Expires: 3 Start: 02-09-2022 DEPRESSION ASSESSMENT DEPRESSION ASSESSMENT [facility] Start: 10-10-2021 Influenza vaccination INFLUENZA (#1) [facility] Start: 09-03-2021 End: 09-03-2022 CBC W Auto Differential panel - Blood CBC + DIFF Lab Routine Morbid obesity (HCC) Chronic GERD Gastroesophageal reflux disease, unspecified whether esophagitis present Preoperative examination Expected: 09/03/2021, Expires: 09/03/2022 [facility] Work Phone: Comment on above: Expected: 09/03/2021, Expires: 3 Start: 09-03-2021 End: 11-03-2021 Coagulation factor VIII activity actual/normal in Platelet poor plasma by Coagulation assay FACTOR VIII:C ASSAY Lab Routine Morbid obesity (HCC) Chronic GERD Gastroesophageal reflux disease, unspecified whether esophagitis present Preoperative examination Expected: 09/03/2021, Expires: 11/03/2021 [facility] Work Phone: Comment on above: Expected: 09/03/2021, Expires: 2 Start: 09-03-2021 End: 09-03-2022 Comprehensive metabolic 2000 panel - Serum or Plasma COMP METABOLIC PANEL Lab Routine Morbid obesity (HCC) Chronic GERD Gastroesophageal reflux disease, unspecified whether esophagitis present Preoperative examination Expected: 09/03/2021, Expires: 09/03/2022 [facility] Work Phone: Comment on above: Expected: 09/03/2021, Expires: 3 Start: 09-03-2021 End: 09-03-2022 CONFIRM BLOOD TYPE CONFIRM BLOOD TYPE Blood Bank Routine Morbid obesity (HCC) Chronic GERD Gastroesophageal reflux disease, unspecified whether esophagitis present Preoperative examination Expected: 09/03/2021, Expires: 09/03/2022 [facility] Work Phone: Comment on above: Expected: 09/03/2021, Expires: 3 Start: 09-03-2021 End: 09-03-2022 SARS-CoV-2 (COVID-19) RNA [Presence] in Respiratory specimen by KRISTINA with probe detection PRE-PROCEDURE & PRE-OPERATIVE COVID Microbiology Routine Morbid obesity (HCC) Chronic GERD Gastroesophageal reflux disease, unspecified whether esophagitis present Preoperative examination Expected: 09/03/2021, Expires: 09/03/2022 [facility] Work Phone: Comment on above: Expected: 09/03/2021, Expires: 3 Start: 09-03-2021 End: 09-03-2022 TYPE AND SCREEN,30 DAY TYPE AND SCREEN,30 DAY Blood Bank Routine Morbid obesity (HCC) Chronic GERD Gastroesophageal reflux disease, unspecified whether esophagitis present Preoperative examination Expected: 09/03/2021, Expires: 09/03/2022 [facility] Work Phone: Comment on above: Expected: 09/03/2021, Expires: 3 Start: 02-09-2021 DEPRESSION ASSESSMENT DEPRESSION ASSESSMENT [facility] Start: 09-26-2020 COVID-19 VACCINE (3 - Booster for Pfizer series) COVID-19 VACCINE (3 - Booster for Pfizer series) [facility] Start: 06-21-2020 COVID-19 VACCINE (3 - Booster for Pfizer series) COVID-19 VACCINE (3 - Booster for Pfizer series) [facility] Start: 06-21-2020 COVID-19 VACCINE (3 - Pfizer series) COVID-19 VACCINE (3 - Pfizer series) [facility] Start: 2019 Mammography MAMMOGRAM [facility] Start: 09-27-2019 End: 09-27-2019 Appointment Appointment [facility] Work Phone: Start: 09-27-2019 End: 09-27-2019 Radex spine cervical 4 or 5 views XR CERVICAL 4VWS FLEX/EXT [facility] Work Phone: Start: 06-29-2013 Urine microalbumin profile [facility] Start: 09-28-1998 Hepatitis B Vaccine (1 of 3 - 19+ 3-dose series) Hepatitis B Vaccine (1 of 3 - 19+ 3-dose series) [facility] Start: 09-28-1997 Anxiety Screening Anxiety Screening [facility] Start: 09-28-1997 Depression Screening Depression Screening [facility] Start: 09-28-1997 HIV SCREENING HIV SCREENING [facility] Start: 09-28-1997 HIV screening HIV Screening [facility] Start: 09-28-1985 PNEUMOCOCCAL (1 - PCV) PNEUMOCOCCAL (1 - PCV) [facility] Start: 09-28-1985 Pneumococcal vaccination Pneumococcal Vaccine (1 - PCV) [facility] Start: 1979 HEPATITIS B (1 of 3 - 3-dose series) HEPATITIS B (1 of 3 - 3-dose series) [facility] Start: 1979 Hepatitis B Vaccine (1 of 3 - 3-dose series) Hepatitis B Vaccine (1 of 3 - 3-dose series) [facility] COVID & INFLUENZA A/ B & RSV NAAT, ROUTINE COVID & INFLUENZA A/B & RSV NAAT, ROUTINE Microbiology Routine URI, acute 08/25/2023 2:36 PM EDT [facility] DBT Breast - bilater al screening ARUN SCREENING W TONIO Radiology Routine Encounter for gynecological examination (general) (routine) without abnormal findings Encounter for screening mammogram for breast cancer 07/21/2024 10:48 AM EDT [facility] Work Phone: End: 08-11-2025 DBT Breast - bilateral screening ARUN SCREENING W TONIO Radiology Routine Encounter for gynecological examination (general) (routine) without abnormal findings Encounter for screening mammogram for breast cancer 1 Occurrences starting 07/12/2024 until 08/11/2025 [facility] Work Phone: Comment on above: 1 Occurrences starting 07/12/2024 until 08/11/2025 End: 06-12-2023 ECG COMPLETE ECG COMPLETE ECG Routine Lightheaded 1 Occurrences starting 06/11/2022 until 06/12/2023 [facility] Work Phone: Comment on above: 1 Occurrences starting 06/11/2022 until 06/12/2023 Endometrial bx w/wo endocervix bx w/o dilat spx ENDOMETRIAL BIOPSY Procedures Routine Menorrhagia with regular cycle Ordered: 08/01/2024 [facility] Work Phone: Comment on above: Ordered: 08/01/2024 Endometrial bx w/wo endocervix bx w/o dilat spx ENDOMETRIAL BIOPSY Procedures Routine Abnormal uterine bleeding (AUB) Adenomyosis of uterus Ordered: 08/04/2024 [facility] Work Phone: Comment on above: Ordered: 08/04/2024 End: 08-24-2024 EPIL EEG ROUTINE EPIL EEG ROUTINE NEUROLOGY Routine Headache, unspecified headache type Vision loss Near syncope Confusion 1 Occurrences starting 08/25/2023 until 08/24/2024 [facility] Work Phone: Comment on above: 1 Occurrences starting 08/25/2023 until 08/24/2024 Excision excessive s kin & subq tissue thigh THIGHPLASTY Excess skin Loose skin PLASTICS A60 Excision excessive s kin & subq tissue thigh THIGHPLASTY Excess skin Loose skin [facility] Excision skin abd infraumbilical panniculectomy PANNICULECTOMY Abdominal pannus Loose skin Rash Dermatitis Intertrigo PLASTICS A60 Laps gstr rstcv px w/byp jacob-en-y limb <150 cm LAP GASTRIC BYPASS/JACOB-EN-Y Procedures Routine Morbid obesity (HCC) Chronic GERD Gastroesophageal reflux disease, unspecified whether esophagitis present Preoperative examination Ordered: 09/03/2021 [facility] Work Phone: Comment on above: Ordered: 09/03/2021 End: 11-28-2024 MG Breast - bilateral Diagnostic ARUN DIAGNOSTIC BILATERAL Radiology Routine Breast pain 1 Occurrences starting 10/30/2023 until 11/28/2024 [facility] Work Phone: Comment on above: 1 Occurrences starting 10/30/2023 until 11/28/2024 End: 05-14-2024 MG Breast Screening ARUN SCREENING Radiology Routine Encounter for screening mammogram for breast cancer 1 Occurrences starting 04/15/2023 until 05/14/2024 [facility] Work Phone: Comment on above: 1 Occurrences starting 04/15/2023 until 05/14/2024 OUTSIDE VENDOR CARDI AC OUTPATIENT EXTENDED RHYTHM RECORDING (WITHOUT TELEMETRY) OUTSIDE VENDOR CARDIAC OUTPATIENT EXTENDED RHYTHM RECORDING (WITHOUT TELEMETRY) Holter Routine Near syncope Ordered: 08/25/2023 [facility] Comment on above: Ordered: 08/25/2023 OUTSIDE VENDOR CARDI AC OUTPATIENT EXTENDED RHYTHM RECORDING (WITHOUT TELEMETRY) OUTSIDE VENDOR CARDIAC OUTPATIENT EXTENDED RHYTHM RECORDING (WITHOUT TELEMETRY) Holter Routine Palpitations Ordered: 10/05/2023 [facility] Work Phone: Comment on above: Ordered: 10/05/2023 PAP TEST PAP TEST Lab Rou js Screening for cervical cancer 07/22/2024 10:34 AM EDT [facility] Work Phone: PAP TEST PAP TEST Lab Rou js Encounter for gynecological examination (general) (routine) without abnormal findings Screening for cervical cancer Encounter for screening for human papillomavirus (HPV) 07/12/2024 10:05 AM EDT [facility] Patient Education [facility] Work Phone: Patient referral [facility] Work Phone: REFER FOR ADMIT INTERVIEW REFER FOR ADMIT INTERVIEW Procedures Routine Morbid obesity (HCC) Chronic GERD Gastroesophageal reflux disease, unspecified whether esophagitis present Preoperative examination Ordered: 09/03/2021 [facility] Work Phone: Comment on above: Ordered: 09/03/2021 End: 11-08-2022 Screening mammography bi 2-view breast inc cad ARUN SCREENING Radiology Routine Encounter for screening mammogram for breast cancer 1 Occurrences starting 10/09/2021 until 11/08/2022 [facility] Work Phone: Comment on above: 1 Occurrences starting 10/09/2021 until 11/08/2022 Therapeutic prophylactic/dx injection subq/im THER/PROPH/DIAG INJ, SC/IM Procedures Routine Need for prophylactic vaccination/inoculation against viral disease Ordered: 07/12/2024 [facility] Comment on above: Ordered: 07/12/2024 Tissue Pathology bio psy report SURGICAL PATHOLOGY Lab Routine Abnormal uterine bleeding (AUB) Adenomyosis of uterus 08/04/2024 10:11 AM EDT [facility] End: 11-28-2024 US Breast - left limited US BREAST LTD LEFT Radiology Routine Breast pain 1 Occurrences starting 10/30/2023 until 11/28/2024 [facility] Comment on above: 1 Occurrences starting 10/30/2023 until 11/28/2024 End: 11-28-2024 US Breast - right limited US BREAST LTD RIGHT Radiology Routine Breast pain 1 Occurrences starting 10/30/2023 until 11/28/2024 [facility] Comment on above: 1 Occurrences starting 10/30/2023 until 11/28/2024 [facility] Immunizations Immunization Date Immunization Notes Care Provider Lizbeth adam 07-12-2024 Human Papillomavirus 9-valent vaccine Makeda Smith APRNMarivelWOODS MANAGER Work Phone: [facility] 10-30-2023 COVID-19 vaccine, ag e 12+ yr (PFIZER-BIONTECH) Maira Escamilla MD Work Phone: [facility] 10-30-2023 influenza, seasonal, injectable Maira Escamilla MD Work Phone: [facility] 10-30-2023 influenza virus vacc ine, unspecified formulation Beulah Campa MD Work Phone: [facility] 11-07-2020 influenza, injectabl e, quadrivalent, contains preservative Alison Cetin DO Work Phone: [facility] 11-07-2020 influenza virus vacc ine, unspecified formulation Screen Wstr [facility] 04-26-2020 COVID-19 vaccine, ag e 12+ yr (PFIZER-BIONTECH - PURPLE TOP) Alison Cetin DO Work Phone: [facility] 04-05-2020 COVID-19 vaccine, ag e 12+ yr (PFIZER-BIONTECH - PURPLE TOP) Alison Cetin DO Work Phone: [facility] 11-03-2019 influenza, injectabl e, quadrivalent, contains preservative Alison Cetin DO Work Phone: [facility] 06-28-2013 TD(adult) unspecifie d formulation Maira Escamilla MD Work Phone: [facility] 06-28-2013 tetanus and diphther ia toxoids, adsorbed, preservative free, for adult use (2 Lf of tetanus toxoid and 2 Lf of diphtheria toxoid) Alison Jules DO Work Phone: [facility] Payers Date Payer Category Payer Self-pay [id number] 2023 Unknown [id number] 2020 Medicaid [employer] [id number] 2020-Present [phone] [address] [place] [address] Medicaid [id number] 2020 Medicaid [id number] 1979 Unknown [id number] Unknown [id number] Unknown [id number] Unknown [id number] Unknown [id number] Unknown [id number] Unknown [id number] Unknown [id number] Social History Date Type Detail Facility Start: 06-24-2021 End: 03-05-2023 Assertion Unknown if ever smoked [facility] Work Phone: Start: 07-19-2015 End: 11-27-2023 Tobacco smoking status NHIS Ex-smoker [facility] Start: 03-19-1990 End: 02-09-2014 History of tobacco use Current smoker [facility] Start: 03-19-1990 End: 02-09-2014 History of tobacco use Cigarette Smoker [facility] Start: 07-19-2015 End: 05-04-2023 Cigarettes smoked current (pack per day) - Reported 0.25 [facility] Start: 07-19-2015 End: 11-27-2023 Tobacco use and exposure Smokeless tobacco non-user [facility] Start: 05-21-2021 End: 10-30-2023 Alcohol intake Current drinker of alcohol (finding) [facility] Start: 04-23-2021 End: 01-17-2022 History SDOH Alcohol Frequency 2 [facility] Start: 04-23-2021 End: 01-17-2022 History SDOH Alcohol Std Drinks 1 [facility] Start: 03-19-2018 History SDOH Alcohol Comment rarely [facility] Start: 04-23-2021 End: 01-17-2022 History SDOH Social Connections Phone 5 [facility] Start: 04-23-2021 End: 01-17-2022 History SDOH Social Connections Meetings 3 [facility] Start: 04-23-2021 End: 01-17-2022 History SDOH Social Connections Living 8 [facility] Start: 04-23-2021 History SDOH Financial 4 [facility] Start: 06-24-2019 Education 21 [facility] Start: 1980 Sex Assigned At Female C [facility] Start: 04-08-2021 End: 12-10-2021 Exposure to SARS-CoV-2 (event) Not sure [facility] Start: 12-11-2018 With Family [facility] Start: 06-14-2021 End: 06-24-2021 Exposure to SARS-CoV-2 (event) Yes [facility] Start: 09-18-2021 Tobacco Comment quit in 05/[address] [facility] Start: 01-17-2022 History SDOH Alcohol Std Drinks 0 [facility] Start: 01-17-2022 End: 05-04-2023 Social connection and isolation panel [facility] Are you now , , , , never or living with a partner? Living with partner [facility] How often to you hav e a drink containing alcohol? Never [facility] How many standard drinks containing alcohol do you have on a typical day? Patient does not drink [facility] How hard is it for you to pay for the very basics like food, housing, medical care, and heating Somewhat hard [facility] Do you feel stress - tense, restless, nervous, or anxious, or unable to sleep at night because your mind is troubled all the time - these days [OSQ] Not at all [facility] (I/We) worried whether (my/our) food would run out before (I/we) got money to buy more. Never true [facility] At any time in the past 12 months, were you homeless or living in senior living [including now]? No [facility] Start: 09-20-2019 Gender identity Identifies as female gender (finding) [facility] Start: 09-20-2019 Sexual orientation Heterosexual (lexi spencer) [facility] Are you now , , , , never or living with a partner? [facility] How often to you hav e a drink containing alcohol? Monthly or less [facility] How many standard drinks containing alcohol do you have on a typical day? 1 or 2 [facility] Do you feel stress - tense, restless, nervous, or anxious, or unable to sleep at night because your mind is troubled all the time - these days [OSQ] Only a little [facility] Tobacco smoking status No Smoking Status Entered [facility] How hard is it for you to pay for the very basics like food, housing, medical care, and heating Not very hard [facility] Do you feel stress - tense, restless, nervous, or anxious, or unable to sleep at night because your mind is troubled all the time - these days [OSQ] To some extent [facility] How often do you hav e 6 or more drinks on 1 occasion? Less than monthly [facility] Start: 11-27-2023 End: 09-09-2024 Alcoholic beverage intake Ex-drinker (finding) [facility] Start: 11-27-2023 Tobacco Comment Quit in 2014, does vape daily [facility] Start: 06-02-2024 End: 08-25-2024 Tobacco smoking status NHIS Smokes tobacco daily (finding) [facility] Start: 06-02-2024 Sex Female (finding) [facility] Start: 09-01-2024 Tobacco Use Tobacco Use [facility] NEGATED: Highlighted row [facility] NEGATED: Highlighted row Not [facility] Goals Date Patient Goal Desired Activity /State Functional Status Date Assessment Result Facility 08-31-2023 Functional Status Standard Safet y ID band on, Call device within reach, Bed in low position, Wheels locked, Upper/Half-Length side-rails up, Bedside Cart Locked, Safety level maintained [facility] 04-13-2014 Are you deaf, or do you have serious difficulty hearing No 04/13/2014 1:58 PM Sri Stephenson LPN No [facility] 04-13-2014 Are you blind, or do you have serious difficulty seeing, even when wearing glasses No 04/13/2014 1:58 PM Sri Stephenson LPN No [facility] 04-13-2014 Do you have serious difficulty walking or climbing stairs No 04/13/2014 1:58 PM Sri Stephenson LPN No [facility] 04-13-2014 Do you have difficul ty dressing or bathing No 04/13/2014 1:58 PM Sri Stephenson LPN No [facility] 04-13-2014 Because of a physica l, mental, or emotional condition, do you have difficulty doing errands alone such as visiting a physician's office or shopping No 04/13/2014 1:58 PM Sri Stephenson LPN No [facility] Mental Status Date Assessment Result Facility 09-01-2024 Cognitive function Voice/Name [facility] Work Phone: 08-16-2024 Cognitive function Level Of Cons ciousness Awake;Alert;Appropriate;Fol lows Commands [facility] Work Phone: 08-31-2023 Mental Status Orientation Oriented x 4 [facility]] 02-13-2023 Cognitive function Level Of Cons ciousness Awake;Alert;Appropriate;Fol lows Commands [facility] Work Phone: 04-13-2014 Because of a physica l, mental, or emotional condition, do you have serious difficulty concentrating, remembering, or making decisions No 04/13/2014 1:58 PM EST Sri Li LPN No [facility] Clinical Notes 12-07-2017 to 09-09-2024 Beulah Campa MD - 09/09/2024 10:25 AM EDTTelephone Encounter - Concha Akers RN - 09/08/2024 2:22 PM EDTTelephone Encounter - Concha Akers RN - 09/08/2024 2:22 PM EDT Note Date & Type Note Facility 09-09-2024 Note HNO ID: [id number] Author: BEULAH CAMPA MD Service: ? Author Type: Physician Type: Progress Notes Filed: 09/09/2024 12:23 Note Text: DATE OF SERVICE: 09/09/2024 PROBLEM: Raul Cohng presents for postop visit. SURGERY AND DATE: [facility] with bilateral salpingectomy 09/01/24 PATHOLOGY: benign, fibroid, adenomyoma SUBJECTIVE/INTERVAL HISTORY: Raul Chong feels ok surgery velez but very itchy around incisions, taking benadryl. Pain in vagina and pain when has BM or urinate, worse w/ BM. No fever or chills. No shortness of breath, cough, or chest pain. States having BM. Patient reports that her appetite is fair. Taking tyloenol q 6 and oxycodone q 8 hrs or so. SENSITIVE EXAM: The sensitive examination was discussed with the Patient or Patient's Authorized Sweat Box Attendant. As applicable, any other physician, advance practice provider, medical student, or other health professional student that will be observing or involved in the sensitive examination for educational or training purposes was discussed with the Patient or Authorized Sweat Box Attendant. The Patient or Authorized Sweat Box Attendant has agreed to proceed with the sensitive examination. (Sensitive examination includes inspection and/or palpation of the breasts, pelvis, prostate and anorectal regions). OBJECTIVE: . ABDOMEN: Abdomen soft, non-tender, no hepatosplenomegaly. Incisions healing but erythema w/o induration or edema or purulence around each incision, c/w allergic reaction PELVIC: External genitalia normal. Vagina normal on speculum exam. Uterus, cervix, adnexa surgically absent. Some pink clear vaginal discharge, sutures intact intact, no masses or fullness, minimal tenderness ASSESSMENT: postop PLAN: 1. Discussed results of pathology and implications with patient. Refill on oxycodone due to patient's inability to take NSAIDs and continues to have pain. Discussed with he continue acetaminophen. Call for fevers or other concerns. Will give hydroxyzine and local steroid cream for allergic reactions around where the patient had skin glue. Patient is comfortable with this plan. Call for fevers or other concerns. Reassured that rectal pressure and vaginal pain with bowel movements is likely from inflammation, on exam today there is no abnormalities noted, no evidence of hematoma or other vaginal or cuff issue. 2. Postop restrictions reviewed. Beulah Campa MD [facility] 09-09-2024 History of Presen t illness Narrative DATE OF SERVICE: 09/09/2024 PROBLEM: Raul Chong presents for postop visit. SURGERY & DATE: [facility] with bilateral salpingectomy 09/01/24 PATHOLOGY: benign, fibroid, adenomyoma SUBJECTIVE/INTERVAL HISTORY: Raul Chong feels ok surgery velez but very itchy around incisions, taking benadryl. Pain in vagina and pain when has BM or urinate, worse w/ BM. No fever or chills. No shortness of breath, cough, or chest pain. States having BM. Patient reports that her appetite is fair. Taking tyloenol q 6 and oxycodone q 8 hrs or so. SENSITIVE EXAM: The sensitive examination was discussed with the Patient or Patient's Authorized Sweat Box Attendant. As applicable, any other physician, advance practice provider, medical student, or other health professional student that will be observing or involved in the sensitive examination for educational or training purposes was discussed with the Patient or Authorized Sweat Box Attendant. The Patient or Authorized Sweat Box Attendant has agreed to proceed with the sensitive examination. (Sensitive examination includes inspection and/or palpation of the breasts, pelvis, prostate and anorectal regions). OBJECTIVE: . ABDOMEN: Abdomen soft, non-tender, no hepatosplenomegaly. Incisions healing but erythema w/o induration or edema or purulence around each incision, c/w allergic reaction PELVIC: External genitalia normal. Vagina normal on speculum exam. Uterus, cervix, adnexa surgically absent. Some pink clear vaginal discharge, sutures intact intact, no masses or fullness, minimal tenderness ASSESSMENT: postop PLAN: 1. Discussed results of pathology and implications with patient. Refill on oxycodone due to patient's inability to take NSAIDs and continues to have pain. Discussed with he continue acetaminophen. Call for fevers or other concerns. Will give hydroxyzine and local steroid cream for allergic reactions around where the patient had skin glue. Patient is comfortable with this plan. Call for fevers or other concerns. Reassured that rectal pressure and vaginal pain with bowel movements is likely from inflammation, on exam today there is no abnormalities noted, no evidence of hematoma or other vaginal or cuff issue. 2. Postop restrictions reviewed. Beulah Campa MD documented in this encounter [facility] 09-08-2024 Telephone encount er Note Pt called stating she sent pictures of her incisions this AM- states her rash is worse/swollen areas/hard itchy areas. States she has no energy, pain in her pelvic region that goes to anal and vaginal area. Pt is notified SW reviewed pictures and message and Pt is advised to take Benadryl & Tylenol PRN and apply benadryl cream on itchy areas-avoiding direct incision site. Pt voiced understanding. Concha Akers RN [facility] 09-08-2024 Miscellaneous Notes Formattin g of this note might be different from the original. Pt called stating she sent pictures of her incisions this AM- states her rash is worse/swollen areas/hard itchy areas. States she has no energy, pain in her pelvic region that goes to anal and vaginal area. Pt is notified SW reviewed pictures and message and Pt is advised to take Benadryl & Tylenol PRN and apply benadryl cream on itchy areas-avoiding direct incision site. Pt voiced understanding. Concha Akers RN Incision sites do not look infected based on pictures. As the incisions heal they can have some itching and redness. It looks like she has an appointment tomorrow with Dr. Campa so recommend keeping that appointment. Recommend ER if fevers 100.4 or greater or severe pain. Agree with anti histamine to help with the itching documented in this encounter [facility] 09-08-2024 Telephone encount er Note Incision sites do not look infected based on pictures. As the incisions heal they can have some itching and redness. It looks like she has an appointment tomorrow with Dr. Campa so recommend keeping that appointment. Recommend ER if fevers 100.4 or greater or severe pain. Agree with anti histamine to help with the itching [facility] Work Phone: 09-07-2024 Telephone encount er Note Patient notified. Declined visit for today as of now. Will try antihistamine and hydrocortisone first and call back if appt is needed. Ayaan Swift RN [facility] 09-07-2024 Miscellaneous Notes Formattin g of this note might be different from the original. Patient notified. Declined visit for today as of now. Will try antihistamine and hydrocortisone first and call back if appt is needed. Ayaan Swift RN Can use the cream if she wants. Can use silvadine cream if prefers but not necessary. Can use antihistamine like benadryl or zyrtec for itching. Can use a little hydrocortisone around but not directly on incisions. The pictures are not concerning for infection from what I see. Some inflammation and redness from the healing is common. I can see her this afternoon if she is concerned to take a look at them. Beulah Campa MD Patient calling with update again on her abdominal incision sites for TLH/salpingectomy. She did get the glue off as advised in 09/05/24 phone encounter. She feels though that the itchiness and red rash/welts have worsened still around all 4 sites.She previously sent pictures on 09/05 too before glue was removed. Asking what else she can try to help. Stated she does have silvadene cream is that's an option. Her post op appt is scheduled for 09/09/24. Ayaan Swift RN documented in this encounter [facility] 09-07-2024 Telephone encount er Note Can use the cream if she wants. Can use silvadine cream if prefers but not necessary. Can use antihistamine like benadryl or zyrtec for itching. Can use a little hydrocortisone around but not directly on incisions. The pictures are not concerning for infection from what I see. Some inflammation and redness from the healing is common. I can see her this afternoon if she is concerned to take a look at them. Beulah Campa MD [facility] 09-07-2024 Telephone encount er Note Patient calling with update again on her abdominal incision sites for TLH/salpingectomy. She did get the glue off as advised in 09/05/24 phone encounter. She feels though that the itchiness and red rash/welts have worsened still around all 4 sites.She previously sent pictures on 09/05 too before glue was removed. Asking what else she can try to help. Stated she does have silvadene cream is that's an option. Her post op appt is scheduled for 09/09/24. Ayaan Swift RN [facility] 09-05-2024 Telephone encount er Note Probably is a reaction to the glue. Baby oil or vasaline will help remove the glue. Ice to the incisions will help the itching [facility] Work Phone: 09-05-2024 Miscellaneous Notes Formattin g of this note might be different from the original. Probably is a reaction to the glue. Baby oil or vasaline will help remove the glue. Ice to the incisions will help the itching Pt's Infoharmoni pictures were sent-see [email or web address] message from 09/05/24. Concha Akers RN Patient underwent total laparoscopic hysterectomy with bilateral salpingectomy at [facility] on 09/01/2024. Pt calls stating she has 4 laparoscopic sites and she is pretty certain she is allergic to the glue as she has a red, bumpy/welted rash on every one. States the one on the crease of her leg-the glue has come off so she does have the rash, but not as itchy as the others. Pt denies fever. States also fighting gas in abdomen that travels to her shoulder. Has had BM-does not feel constipated. Didn't take any oxy yesterday at all, then states she overdid it activity velez and has taken 1 dose this morning. Informed Pt that this is common, & advised Pt to stay hydrated, walk around as much as she can tolerate, & chew gum as it will help with gut motility and if she is feeling constipated to increase fiber in diet and take a stool softener as needed. Pt voiced understanding. Pt will send photos on mychart of her incisions/rash. Please advise. Concha Akers RN documented in this encounter [facility] 09-05-2024 Telephone encount er Note Pt's mychart pictures were sent-see [email or web address] message from 09/05/24. Concha Akers RN [facility] 09-05-2024 Telephone encount er Note See phone encounter dated 09/05/2024. Concha Akers RN [facility] 09-05-2024 Miscellaneous Notes Formattin g of this note might be different from the original. See phone encounter dated 09/05/2024. Concha Akers RN documented in this encounter [facility] 09-05-2024 Telephone encount er Note Patient underwent total laparoscopic hysterectomy with bilateral salpingectomy at [facility] on 09/01/2024. Pt calls stating she has 4 laparoscopic sites and she is pretty certain she is allergic to the glue as she has a red, bumpy/welted rash on every one. States the one on the crease of her leg-the glue has come off so she does have the rash, but not as itchy as the others. Pt denies fever. States also fighting gas in abdomen that travels to her shoulder. Has had BM-does not feel constipated. Didn't take any oxy yesterday at all, then states she overdid it activity velez and has taken 1 dose this morning. Informed Pt that this is common, & advised Pt to stay hydrated, walk around as much as she can tolerate, & chew gum as it will help with gut motility and if she is feeling constipated to increase fiber in diet and take a stool softener as needed. Pt voiced understanding. Pt will send photos on mychart of her incisions/rash. Please advise. Concha Akers RN [facility] 09-01-2024 Note HNO ID: [id number] Author: BEULAH CAMPA MD Service: ? Author Type: Physician Type: Progress Notes Filed: 09/01/2024 15:40 Note Text: Patient underwent total laparoscopic hysterectomy with bilateral salpingectomy at [facility] on 09/01/2024. Pathology is pending. This was done for fibroids and abnormal uterine bleeding. Ovaries appeared normal. Patient did not have any significant adhesions. Cystoscopy was performed. Beulah Campa MD [facility] 09-01-2024 History of Presen t illness Narrative Patient underwent total laparoscopic hysterectomy with bilateral salpingectomy at [facility] on 09/01/2024. Pathology is pending. This was done for fibroids and abnormal uterine bleeding. Ovaries appeared normal. Patient did not have any significant adhesions. Cystoscopy was performed. Beulah Campa MD documented in this encounter [facility] 09-01-2024 Consult note [facility] 09-01-2024 Consult note Note Date/Time September 01, 2024 9:56am [facility] Medical Records Department [address] [place] [address] Anesthesia Postop Eval I 09/01/24 0954 MR#: [id number] Acct: [id number] Name: RAUL CHONG DIANNA Rep #:[id number] : 1980 43 From: Karen Lewis RNA PCP: Dr. Maira Escamilla MD Status:REG S DC Y Race: C Location: [place] [address]- Anesthesia: Postop Eval I Current Vital Signs Temperature: 97.2 F Pulse Rate: 71 Blood Pressure: 112/65 Respiratory Rate: 16 Pulse Ox: 99 Oxygen Delivery Method: Room Air Assessment Airway patent: Yes Spontaneous unlabored respirations: Yes Mental status: Awake nausea: No Vomiting: No Anesthesia Complication: No Fluid Hydration Crystalloid volume administer (ml): 1,000 Total IV fluid infused: 1,000 Progress Note Anesthesia document: Postop Eval 1 completed: Yes 09/01/24955 <Electronically signed by Karen Aguilar INSIGHTS STRATEGIST> Date _ Karen Aguilar CRNA Cosigner Signature: Date CC: ~ Signed [facility] Work Phone: 1(243) 900-183207-24-2025 Consult note [facility] Medical Records Department [address] [place] [address] Anesthesia Postop Eval I 09/01/24953 MR#: [id number] Acct: [id number] Name: RAUL CHONG DIANNA Rep #:[id number] : 1980 43 From: Karen Lewis RNA PCP: Dr. Maira Escamilla MD Status:REG S DC Y Race: C Location: [place] [address] Anesthesia: Postop Eval I Current Vital Signs Temperature: 97.2 F Pulse Rate: 71 Blood Pressure: 112/65 Respiratory Rate: 16 Pulse Ox: 99 Oxygen Delivery Method: Room Air Assessment Airway patent: Yes Spontaneous unlabored respirations: Yes Mental status: Awake nausea: No Vomiting: No Anesthesia Complication: No Fluid Hydration Crystalloid volume administer (ml): 1,000 Total IV fluid infused: 1,000 Progress Note Anesthesia document: Postop Eval 1 completed: Yes 09/01/24955 INSIGHTS STRATEGIST> Date _ Karen Aguilar INSIGHTS STRATEGIST Cosigner Signature: Date CC: ~ Signed [facility]07-24-2025 Discharge summary Author Beulah Campa [facility] Note Date/Time September 01, 2024 7:50 am [facility] Medical Records Department [address] [place] [address] Instructions for Home/Discharge Instructions 09/01/24 0749 MR#: [id number] Acct: [id number] Name: RAUL CHONG DIANNA Rep #:[id number] : 1980 43 From: Beulah Campa MD PCP: Dr. Maira Escamilla MD Status:REG S DC Discharge Instructions DC O2, CPAP, BIPAP needs Home O2 Discharge instructions: No Dressing / Incision Discharge Activity: May Drive (in 3-5 days when not on pain medication) and - (No submergine in water for 6 weeks. ) May shower in (days): 1 May resume sexual activity in: 6-8 weeks and - (Nothing in your vagina for 6 weeks. No vaginal or anal intercourse for 6-8 weeks) Lifting Restrictions: 15 lbs x 6 weeks Dressing / Incision Call your doctor if your incision/area has: Continuous Slow Oozing, Sudden Increased Bleeding, Increased Pain/ Swelling and Foul Smelling Discharge Call your doctor if you observe: Fever of 101 or Higher Cleanse incision/area with: Soap & Water and - (Your incisions have skin glue, it can get wet, leave the glue on until it falls off. ) Follow Up Care Please Follow Up With: Beulah Campa MD When: With my office in 1-2 and 6 weeks or as needed. [phone] call or senda [facility] message as needed Test Results: Test results from this visit will be discussed in further detail at your follow- up appointment, if applicable. Discharge Plan Admission Primary Reason for Your Visit: Hysterectomy Attending Provider: Beulah Campa Primary Care Provider: Maira Escamilla Instructions Print Language: Lebanese Discharge Orders/Prescriptions Prescriptions: New acetaminophen [Acetaminophen Extra Strength] 500 mg tablet 1,000 mg PO Q6H PRN (Reason: fever or pain) 30 Days Qty: 90 1RF oxycodone 5 mg tablet 5 mg PO Q8H PRN (Reason: severe pain) 7 Days Qty: 20 0RF Continued sertraline 50 mg tablet 50 mg PO [...] (2,000 unit) tablet 50 mcg PO DAILY ferrous sulfate [Feosol] 325 mg (65 mg iron) tablet 325 mg PO DAILY Referrals / Follow Up: Maira Escamilla MD [Primary Care Provider] - Disposition Disposition (needs filled in before D/C Order can be placed): Home, Self Care 09/01/24 0750<Electronically signed by Beulah Campa MD>Beulah Campa MD CC: Dr. Maira Escamilla MD ~ Signed [facility] Work Phone: 1(648) 306-551007-24-2025 Procedure note [facility] Medical Records Department [address] [place] [address] Operative Report 09/01/24 0938 MR#: [id number] Acct: [id number] Name: RAUL CHONG DIANNA Rep #:[id number] : 1980 43 From: Beulah Campa MD PCP: Dr. Maira Escamilla MD Status:REG S DC Location: [facility] Problems Associated Problem List Diagnoses (1) Postoperative pain: (2) Arcuate uterus: (3) Intramural uterine fibroid: (4) Adenomyosis: (5) Abnormal uterine bleeding (AUB): (6) Dysmenorrhea: Operative Report (Standard) Operative Information Date of Procedure: 09/01/24 Pre-Operative Diagnosis: aub, fibroids, dysmenorrhea, adenomyosis, arcuate uterus Post-Operative Diagnosis: same Surgery/Procedure Performed: TLH, bilateral salpingectomy and cysto alliance manager: Yes Drainage Design Coordinator: Jose Crocker Tasks completed by first coat sander: Closing, Hemostasis: Electrocautery, Trocar andRetracting Type of Anesthesia: General RN Documented Start/Stop Times: Operation Date: 09/01/24 07:30 Case Time Into Pre-Op 09/01/24 05:38 Out of Pre-Op 09/01/24 07:30 Anesthesia Start 09/01/24 07:35 Into Room 09/01/24 07:35 Procedure Start 09/01/24 08:07 Procedure Start Time: 08:07 Procedure Stop Time: 09:38 Select all DRAINS/GRAFTS/IMPLANTS that apply: None Estimated Blood Loss: 100 Fluids Replaced: 1000 cc LR Specimen collected: Yes Description of specimen(s) removed: uterus, cervix, bilateral fallopian tubes Description of surgery: The patient was taken to the operating room where she was prepped and draped in the dorsal lithotomy position. Her arms were tucked to the side and padded and her legs were placed in the yellowfin stirrups. Care was taken to ensure that she was placed in a neurologically safe and neutral position. A weighted speculum was placed in the vagina and the anterior lip of the cervix was graspedwith a single-tooth tenaculum. The cervix sounded to 9 centimeters. 2-0 Vicrylsutures were secured to the cervix at 3 and 9:00. The 2 cm Uterine intelligence chief placed into the cervix and the balloon inflated. The stay sutures were placed through the cup and secured down to the cervix. Once the intelligence chief was secured to the cervix the Beard catheter was placed to straight drain. Attention was turned to the abdominal portion of the case. Before skin incisions were made they were infiltrated with 0.5% Marcaine solution for local anesthetic. A 5 mm LUQ incision was made and while tenting the anterior abdominal wall up with towel clamps a 5 mm blade less trocar and sleeve were advanced directly into the peritoneal cavity with visualization through the Visiport. Peritoneal placement was confirmed with the laparoscope the pneumoperitoneum was created, and the underlying abdominal contents were intact. The patient was placed in Trendelenburg and the above findings were noted. Right 5mm and left lateral 7 mm trochars were placed under direct visualization without difficulty. The antimesenteric portion of the tube was clamped sealed and transected serially on both sides with the LigaSure device. The round ligaments were clamped sealed and transected and a window was made in the peritoneum. The utero-ovarian ligaments were then clamped sealed and transected with the LigaS ure device and the pedicles were hemostatic The bladder flap was dissected down with the LigaSure device and blunt dissection and the uterine arteries were then skeletonized. The uterine arteries were clamped sealed and transected on both sides with the LigaSure device. Then along the cardinal ligament uterine arteries adjacent to the cervixwere clamped sealed and transected with the LigaSure device to move them away from the vaginal cuffangle. At this point the pedicles were all examinedand found to be hemostatic. The bladder flap was rechecked and found to be adequately down. The monopolar tip of the LigaSure device was then used to enter the anterior vagina. The vaginal manipulator cup was noted in the vaginal colpotomy incision was made circumferentially around the cup. When the 3 and 9:00 positions of the cervicovaginal junction were reached these were clamped sealed and transected with the LigaSure device to secure any small remaining vessels. At this point the pedicles were hemostatic from above and attention was turned to the vaginal portion of the case again. The uterus was brought intact out through the vaginal colpotomy incision alongwith the tubes There is some bleeding from the left vaginal cuff angle and this was grasped with a Nancy clamp and suture ligated. The posterior cuff was secured to the periotoneum in a running locked fashion with2-0 vicryl suture. Vaginal angle sutures were placed on both sides with 0 Vicryl sutures and care was taken to ensure that the uterosacral ligament was secured into this stitch. The remainder the vagina was then closed horizontally with interrupted 0 Vicryl sutures. The cuff was hemostatic vaginally. The Beard catheter was removed and a cystoscopy was performed. The bladder appeared normal and was intact. Both ureteral orifices were noted and both ureteral jets were seen. The cystoscope was removed and the Beard catheter was placed back to straight drain. A sponge stick was placed in the vaginato help place traction against the vaginal cuff and the pneumoperitoneum was re-created. The suction differential repairer was used to remove any blood and clots from the peritonealcavity. The pedicles were reexamined and found to be hemostatic. The vaginal cuff was hemostatic. Some Hemablast was placed over the cuff and the pedicles and no active bleeding was noted through the Hemablast. The right and left lateral ports were taken out and the sites were hemostatic. The pneumoperitoneum was released and even under low pressure there was no bleeding of any of the pedicles are vaginal cuff. The umbilical port was removed. The umbilical skin incisions were closed with Monocryl suture and skin glue by the BATTERY CHARGER CONVEYOR LINE with me present. The vaginal instruments were removed by me and a vaginal sweep was completed by me. The surgery was performed by me with assistance other than the portions dictatedas above. There were no qualified residents available for this procedure. All sponge lap and needle counts were correctand the patient was transferred to therecovery room in stable condition. Surgical Findings: normal cervix and vagina, boggy uterus w/ fibroid, tubes with Filshie clips, normal ovaries, normalperitoneal cavity without significant adhesions Complications Complications: No Admit VTE Documentation VTE Present on Admission: No VTE Mechan Device Prophylaxis: SCD's VTE Pharm Prophylaxis ordered?: Yes 09/01/24 0944 Cosigner Signature (if applicable): CC: Dr. Beulah Campa MD; Dr. Maira Escamilla MD~ Signed [facility]07-24-2025 Consult note Author Belkis Mnok [facility] Note Date/Time September 01, 2024 7:26 am [facility] Medical Records Department [address] [place] [address] Pre-Anesthesia Evaluation 09/01/24 0721 MR#: [id number] Acct: [id number] Name: RAUL CHONG DIANNA Rep #:[id number] : 1980 43 From: Belkis Monk INSIGHTS STRATEGIST PCP: Dr. Maira Escamilla MD Status:REG S DC Y Race: C Location: [facility] ASA Classification* ASA Classification ASA Classification: 2 Assessment & Plan Anesthesia* Anesthesia Assessment Anesthesia Assessment: Discussed sedation and/or anesthesia options, risks, benefits, and alternatives with patient/parents/legal guardian/POA. Questions invited. The patient/parents/legal guardian/POA seems to understand and agrees to proceedwith anesthesia plan. Reviewed the physical assessment, medical history, allergy history and patient home medications list prior to surgery/procedure/anesthetic and documented any changes. Performed airway and anesthesia risk assessments. Anesthesia Type Anesthesia Type: General (Hx of GERD, but patient claims no more symptoms since Jacob en Y surgery. ) History Source History Obtained from:: Patient and Chart Anesthesia Focused Assessment* Temperature: 98.3 F Pulse Rate: 71 Blood Pressure: 101/54 Respiratory Rate: 16 Pulse Ox: 100 Oxygen Delivery Method: Room Air Airway Assessment Mouth opens: >3 cm Mallampati Score: II Teeth Condition: Chipped/Broken (broken top side teeth, bilaterally. ) Neck Range of motion (ROM): Full ROM Labs Anesthesia Preop lab: CBC WBC 6.9 K/mm3 (4.4-11.0) 08/16/24 09:08/16/24 RBC 4.17 M/mm3 (4.2-5.4) L 08/16/24 09:08/16/24 Hgb 11.9 g/dL (12.0-15.0) L 08/16/24 09: 5 Hct 35.8 % (37-47) L 08/16/24 09:30 08/16/24 Plt Count 207 K/mm3 (150-450) 08/16/24 09:30 08/16/24 CHEMISTRY Potassium 4.0 mmol/L (3.3-5.1) 08/16/24 09:30 08/16/24 Sodium 136 mmol/L (133-145) 08/16/24 09:08/16/24 Magnesium 2.3 mg/dL (1.5-2.2) H 08/30/24 12:16 08/30/24 BUN 8 mg/dL (4-19) 08/16/24 09:08/16/24 Creatinine 0.55 mg/dL (0.70-1.20) L 08/16/24 09:30 Glucose 97 mg/dL (70-99) 08/16/24 09:30 08/16/24 POC Glucose 82 mg/dL (74-106) 09/01/24 05:59 09/01/24 TSH 1.91 uIU/mL (0.358-3.74) 08/21/23 04:29 COAG PT 15.2 SECONDS (11.7-14.9) H 08/20/23 10:56 08/09 03/04 Urine Test Negative Negative 09/01/24 05:35 09/01/24 Pre-Assessment Diagnosis/Proposed Procedure Planned Operative Procedure(s): (B) Hysterectomy TLH, bilateral salpingectomy, ERAS Anesthesia History Anesthesia History - shift supervisor film processing: Anesthesia History - shift supervisor film processing Hx Hospitalization Yes: 08/2023 HEART 08/25/24 11:24 PALPITATIONS Any Problems With Anesthesia No 08/25/24 11:24 Cholinesterase deficiency No 08/25/24 11:24 You/Your Family Experience No 08/25/24 11:24 fever (hyperthermia) with Relationship Recent Exposure to Contagious No 09/01/24 06:06 Disease Does patient have nerve No 08/25/24 11:24 stimulator Patient instructed to have device shut off --Does patient have Pacemaker No 09/01/24 06:09 or ICD? When Was Last Pacemaker Check QUESTION #4 FULL TEXT: You/Your Family Experience fever (hyperthermia) with Anesthesia Any additional information?: No Last Oral Intake Last Oral intake: Last Oral Intake NPO since 04:30 09/01/24 06:09 Meds taken in AM with sips of No 09/01/24 06:09 water? Meds patient instructed to take am of surgery Any additional information?: Yes Meds patient instructed to take am of surgery: No solid food since prior to midnight, had Ensure preop drink at 0430. PONV PONV - shift supervisor film processing: PONV - shift supervisor film processing Female Yes 08/25/24 11:24 HX of Motion Sickness No 08/25/24 11:24 HX of N/V After Surgery No 08/25/24 11:24 Non-Smoker No 08/25/24 11:24 Duration of Surgery greater Yes 08/25/24 11:24 than 60 minutes Number of Risk Factors 2 08/25/24 11:24 PONV Score Moderate Risk 08/25/24 11:24 Any additional information?: No Height & Weight Height & Weight: Anesthesia: Height & Weight Height 5 ft 8 in 09/01/24 06:09 Weight: 89.811 kg 09/01/24 06:09 Body Mass Index (BMI) 30.1 09/01/24 06:09 Respiratory Assessment Respiratory Assessment - shift supervisor film processing: Respiratory Tract Infection Hx - shift supervisor film processing Hx Respiratory Tract Infection No 08/25/24 11:24 Any additional information?: No STOP Sleep Apnea STOP Sleep Apnea - shift supervisor film processing: STOP Sleep Apnea - shift supervisor film processing Hx Hypertension No 08/25/24 11:24 Hx Sleep [...] or can be heard through closed doors)? Any additional information?: No Tobacco Use History Tobacco Use History - shift supervisor film processing: Tobacco Use History - shift supervisor film processing Tobacco Use Smoking Status Current every day smoker 08/25/24 11:24 Hx Tobacco Use No 08/25/24 11:24 Years Smoking Packs Smoked per Day Smoking Cessation Date was within the last 15 years Hx Smoking Cessation Date Hx Smoking Cessation No 08/25/24 11:24 Counseling Any additional information?: Yes Tobacco Use: Vapor Hematologic Medial History Hematologic Hx - shift supervisor film processing: Hematologic Medical Hx - platform consultant Hx of Blood Transfusion No 08/25/24 11:24 Hx of Transfusion in last 3 No 08/25/24 11:24 Months Date of Last Transfusion (if within last 3 months) Ever experience any problems No 08/25/24 11:24 with transfusion(s)? Specify any problems Hx of Preganancy in last 3 N/A 08/25/24 11:24 Months Nurse Filling Out Transfusion NBUCHER 08/25/24 11:24 & Questions: Date: 08/25/24 08/25/24 11:24 Time: 11:26 08/25/24 11:24 Patient unable to answer at this time (ie. confused, unrespo Any additional information?: No /Reproduction History /Reproductive History - shift supervisor film processing: /Reproductive Hx- shift supervisor film processing Hx Now No 08/25/24 11:24 Gestational Age (in weeks): EDC: Hx Hx Para Hx Section SAB No 08/25/24 11:24 Any additional information?: No Active Medications Active Medications: Current Medications Generic Name Dose Route Start Last Admin Trade Name Freq PRN Reason Stop Dose Admin Acetaminophen 1,000 mg 09/01/24 07:30 09/01/24 06:21 Acetaminophen 500 Mg Tablet PO 09/01/24 07:31 1,000 mg PREOP ONE Administration Dexamethasone Sodium Phosphate 8 mg 09/01/24 07:30 Dexamethasone 4 Mg/Ml Vial IV 09/01/24 07:31 INTRAOP ONE Enoxaparin Sodium 40 mg 09/01/24 07:30 09/01/24 06:27 Enoxaparin 40 Mg/0.4 Ml Syringe SC 09/01/24 07:31 40 mg PREOP ONE Administration Lactated Ringer's 1,000 mls @ 40 mls/hr 09/01/24 07:30 09/01/24 06:18 IV 40 mls/hr .Q25H NEWTON Administration Lactated Ringer's 1,000 mls @ 70 mls/hr 09/01/24 07:30 IV .[id number] NEWTON Cefazolin Sodium 2 gm/ Sodium 110 mls @ 150 mls/hr 09/01/24 07:30 Chloride IV 09/01/24 08:13 INTRAOP ONE Magnesium Sulfate 1 gm/ 102 mls @ 408 mls/hr 09/01/24 07:30 09/01/24 06:28 Dextrose IV 09/01/24 07:44 408 mls/hr PREOP ONE Administration Insulin Human Lispro 0 unit 09/01/24 07:30 Insulin Lispro 100 Unit/Ml Insuln.Pen SC 09/01/24 18:00 Q4H PRN PRN BG >/= 180, SEE PROTOCOL Protocol Ketorolac Tromethamine 30 mg 09/01/24 07:30 09/01/24 06:19 Ketorolac 30 Mg/Ml Syringe IV 09/01/24 07:31 30 mg X1 ONE Administration Ondansetron HCl 4 mg 09/01/24 07:30 Ondansetron 4 Mg/2 Ml Vial IV 09/01/24 07:31 INTRAOP ONE Phenazopyridine HCl 190 mg 09/01/24 07:30 09/01/24 06:21 Phenazopyridine 95 Mg Tablet PO 09/01/24 07:31 190 mg PREOP ONE Administration Scopolamine HBr 1 patch 09/01/24 07:30 09/01/24 06:27 Scopolamine 1mg/72hr Patch TD 09/01/24 07:31 1 patch PREOP ONE Administration PFSH Medical History Wears contact lenses Anxiety History of steroid [...] 75 mg PO DAILY nerves/pain 1 02/13/19 08/31/24 08:00 History cholecalciferol (vitamin D3) 50 50 mcg PO DAILY supple ment 08/20/23 08/31/24 08:00 History mcg (2,000 unit) tablet (D3 DOTS) multivitamin with iron 1 tab PO DAILY supplement 08/31/24 08:00 History vitamin B complex (Complex B-100 1 tab PO DAILY supple ment 08/20/23 08/31/24 08:00 History tablet,extended release) sumatriptan succinate 100 mg tablet 100 mg PO .COMPLEX 09/02/23 Unknown History alprazolam 0.5 mg tablet (Xanax) 0.5 mg PO QDAY PRN an xiety 03/08/24 Unknown History sertraline 50 mg tablet 50 mg PO DAILY 03/08/24/05/03 08:00 History ferrous sulfate 325 mg (65 mg 325 mg PO DAILY 08/25/24 08/31/24 08:00 History iron) tablet (Feosol) Allergy/AdvReac Type Severity Reaction Status Date / Time gabapentin (From Neurontin) Allergy Swelling Verified 09/01/24 06:04 human papillomavirus AdvReac Severe Swelling Verified 09/01/24 06:04 vaccine, quadr (From Gardasil (PF)) topiramate (From Topamax) AdvReac Mild TINGLING Verified 09/01/24 06:04 prednisone AdvReac Other Verified 09/01/24 06:04 Family History Mother Breast cancer Father Arthritis Surgical History History of gastric bypass Status post panniculectomy H/O section History of tonsillectomy History of ankle surgery History of foot surgery History of Jacob-en-Y gastric bypass Hx of cholecystectomy History of bilateral tubal ligation Social History household members: significant other Smoking Status: Current every day smoker tobacco type: e-cigarettes substance use type: does not use Addt'l Information Additional Findings: HX JACOB en Y, NO OG Review of Systems (Anesthesia) ROS Narrative System reviewed and no additional complaints, except as documented. 09/01/24725 <Electronically signed by Belkis blanton CRNA> Date _ Belkis Monk CRNA Cosigner Signature: Date CC: ~ Signed [facility] Work Phone: 1(653) 706-981707-24-2025 History and physical note Author Beulah Campa [facility] Note Date/Time September 01, 2024 7:25 am [facility] Medical Records Department [address] [place] [address] History & Physical Exam 08/24/24 1238 MR#: [id number] Acct: [id number] Name: RAUL CHONG DIANNA Rep #:[id number] : 1980 43 From: Beulah Campa MD PCP: Dr. Maira Escamilla MD Status:REG S PR Location: [place] [address] History and Physical Date of Admission: 09/01/24 HPI: The patient is a 43 year old female presenting for pre-operative visit. She is scheduled for TLH, bilateral salpingectomy and cystoscopy, for adenomyosis, AUB, dysmenorrhea, intramural uterine fibroid and arcuate uterus on 09/01/24. Procedure discussed along with risks, benefits and complications. Other alternatives discussed for management. Consent form signed? Yes. ? ? PAST MEDICAL HISTORY PAST MEDICAL HISTORYDiagnosisDate?Autoimmune disease (HCC)??Degeneration of intervertebral disc, site unspecified??Depression??Migraines??Mild intermittent asthma (HCC)??Obesity??Osteoarthritis of both knees??Plantar fasciitis??Psoriasis? ? ? PAST SURGICAL HISTORY PAST SURGICAL HISTORYProcedureLateralityDate?ADENOIDECTOMY PRIMARY <AGE 11???Adenoidectomy? DELIVERY ONLY???, low cervical?GASTRIC BYPASS HX???Pt reported 2021?LAPAROSCOPY SURG CHOLECYSTECTOMY?2013?PAST SURGICAL HISTORY OF???Bilateral arthoscopy to ankles, scar tissue removal and tendon lengthening?REMOVAL OF EXCESSIVE SKIN???Stomach?TONSILLECTOMY PRIMARY/SECONDARY <AGE 12???Tonsillectomy ? ? ? CURRENT MEDICATIONS Current Outpatient MedicationsMedicationSigDispenseRefill?pregabalin (LYRICA) 75mg capsuleTake 1 capsule by mouth once daily for 180 days.30 capsule5?valACYclovir (VALTREX) 500 mg tabletTake 4 tablets twice daily X 1 day. Then start one tablet by mouth daily thereafter.38 tablet4?Nebulizer Accessorieskit1 Units once daily as needed.1 Each0?sertraline (ZOLOFT) 50 mg tabletTake 1 tablet by mouth once daily.30 tablet5?calcium carbonate 400 mg (1,000 mg) chewTake 1,000 mg by mouth once daily.???ferrous sulfate (IRON) 325 mg (65 mg iron) tabletTake 325 mg by mouth once daily.???SUMAtriptan (IMITREX) 100 mg tabletTake 1 tablet (100 mg) by mouth as needed. START AT ONSET OF HEADACHE. MAY REPEAT DOSE AFTER 2 HOURS.9 tablet5?cyanocobalamin (VITAMIN B-12) 100 mcg tabTake 100 mcg by mouth once daily.???ergocalciferol, vitamin D2, (VITAMIN D2 ORAL)Take by mouth.???MULTIVITAMIN NO.43-IRON-FA ORALTake by mouth.???No currentfacility-administered medications for this visit. ? ? ALLERGIES: Gabapentin; Prednisone; Gardasil 9 (Pf) [Human Papillomav Vac,9- Elda(Pf)]; Lexapro [Escitalopram]; Tree And Shrub Pollen; and Topamax [Topiramate] ? PERSONAL HISTORY: SOCIAL HISTORY Social History?Tobacco Use?Smoking status:Former??Current packs/day:0.00??Average packs/day:0.3 packs/day for 24.0 years (6.0 ttl pk-yrs)??Types:Cigarettes??Start date:03/19/1990??Quit date:2014??Years since quittin.5?Smokeless tobacco:Never?Tobacco comments:??Quit in 2014, does vape dailyVaping Use?Vaping status:current everyday user?Start date:08/10/2023?Substances:Nicotine?Devices:DisposableSubstance Use Topics?Alcohol use:Not Currently??Comment: rarely?Drug use:No ? FAMILY HISTORY: FAMILY HISTORY FAMILY HISTORY ProblemRelationAge of Onset?Breast CancerMother??DiabetesMaternal Grandmother??DiabetesMaternal Uncle? ? ? REVIEW OF SYMPTOMS: GENERAL: denies fevers or chills ENDOCRINOLOGY: has not been on steroids Cardiology : denies palpitations or chest pain Respiratory: denies SOB or cough Hematology: denies history of prolonged bleeding or easy bruising or VTE Allergy: Denies history of personal or family history of allergy to anesthesia ? PHYSICAL EXAMINATION: ? VITALS: Blood pressure 102/58, pulse 70, height 172.7 cm (5' 8), weight 83.5 kg (184 lb), last menstrual period 08/06/2024, SpO2 97%. ? GENERAL: The patient is well nourished, well hydrated in no acute distress. , The patient is oriented to time, place, and person. NECK: Supple. No lynphadenopathy, normal thyroid, no thyromegaly. LUNGS: Clear to auscultation bilaterally. no wheezes, rhonchi or rales HEART: Regular rate and rhythm, Normal heart sounds, and No murmurs or gallops ? ? ? Pelvic US 07/21/24: The contour of [...] uterus. Fibroid uterus. Clinical correlation is recommended. ? ? ? IMPRESSION: arcuate uterus, dysmenorrhea, AUB, adenomyosis, intramural uterine fibroid ? PLAN: The risks/benefits/alternatives and personal involved for the planned TLH, bilateral salpingectomy and cystoscopy were reviewed with the patient. Her questions were answered to her satisfaction and she desires to proceed. Consent was signed. I reviewed with her postop instructions and expectations. ? ? I have reviewed and updated past medical and surgical history, medications and allergies Assessment & Plan Assessment/Plan (1) Dysmenorrhea: (2) Abnormal uterine bleeding (AUB): (3) Adenomyosis: (4) Intramural uterine fibroid: (5) Arcuate uterus: 08/24/24 1240 <Electronically signed by Beulah Campa MD> Cosigner Signature (if applicable): CC: Dr. Beulah Campa MD; Dr. Maira Escamilla MD~ Signed ADDENDUM by Dr. Beulah Campa MD on 09/01/24 at 0725 Addendum UPDATE- I have seen the patient and performed any clinically relevant updates to the history and physical exam. 09/01/24 0725<Electronically signed by Beulah Campa MD> Cosigner Signature (if applicable): cc: Dr. Beulah Campa MD; Dr. Maira Escamilla MD ~* Signed [facility] Work Phone: 1(222) 185-639107-24-2025 Discharge summary [facility] Medical Records Department [address] [place] [address] Instructions for Home/Discharge Instructions 09/01/24 0749 MR#: [id number] Acct: [id number] Name: RAUL CHONG Rep #:[id number] : 1980 43 From: Beulah Campa MD PCP: Dr. Maira Escamilla MD Status:REG S DC Discharge Instructions DC O2, CPAP, BIPAP needs Home O2 Discharge instructions: No Dressing / Incision Discharge Activity: May Drive (in 3-5 days when not on pain medication) and - (No submergine in water for 6 weeks. ) May shower in (days): 1 May resume sexual activity in: 6-8 weeks and - (Nothing in your vagina for 6 weeks. No vaginal or anal intercourse for 6-8 weeks) Lifting Restrictions: 15 lbs x 6 weeks Dressing / Incision Call your doctor if your incision/area has: Continuous Slow Oozing, Sudden Increased Bleeding, Increased Pain/ Swelling and Foul Smelling Discharge Call your doctor if you observe: Fever of 101 or Higher Cleanse incision/area with: Soap & Water and - (Your incisions have skin glue, it can get wet, leave the glue on until it falls off. ) Follow Up Care Please Follow Up With: Beulah Campa MD When: With my office in 1-2 and 6 weeks or as needed. [phone] call or senda [facility] message asneeded Test Results: Test results from this visit will be discussed in further detail at your follow- up appointment, if applicable. Discharge Plan Admission Primary Reason for Your Visit: Hysterectomy Attending Provider: Beulah Campa Primary Care Provider: Maira Escamilla Instructions Print Language: Lebanese Discharge Orders/Prescriptions Prescriptions: New acetaminophen [Acetaminophen Extra Strength] 500 mg tablet 1,000 mg PO Q6H PRN (Reason: fever or pain) 30 Days Qty: 90 1RF oxycodone 5 mg tablet 5 mg PO Q8H PRN (Reason: severe pain) 7 Days Qty: 20 0RF Continued sertraline 50 mg tablet 50 mg PO [...] (2,000 unit) tablet 50 mcg PO DAILY ferrous sulfate [Feosol] 325 mg (65 mg iron) tablet 325 mg PO DAILY Referrals / Follow Up: Maira Escamilla MD [Primary Care Provider] - Disposition Disposition (needs filled in before D/C Order can be placed): Home, Self Care 09/01/24 0750Regracy Campa MD CC: Dr. Maira Escamilla MD ~ Signed [facility]07-24-2025 Evaluation note* Diagnosis Onset Date Resolution Status Admit Date Abnormal uterine bleeding (AUB) acut e September 01, 2024 5:29am Adenomyosis acute September 01 5:29am Arcuate uterus acute September 01, 2024 5:29am Dysmenorrhea acute September 01, 5:29am Intramural uterine fibroid acute September 01, 2024 5:29am Postoperative pain acute August 102024 5:29am [facility] Work Phone: 1(408) 684-582607-24-2025 Consult note [facility] Medical Records Department [address] [place] [address] Pre-Anesthesia Evaluation 09/01/24 0721 MR#: [id number] Acct: [id number] Name: RAUL CHONG DIANNA Rep #:[id number] : 1980 43 From: Belkis Monk CRNA PCP: Dr. Maira Escamilla MD Status:REG S DC Y Race: C [facility]: [facility] ASA Classification* ASA Classification ASA Classification: 2 Assessment & Plan Anesthesia* Anesthesia Assessment Anesthesia Assessment: Discussed sedation and/or anesthesia options, risks, benefits, and alternatives with patient/parents/legal guardian/POA. Questions invited. The patient/parents/legal guardian/POA seems to understand and agrees to proceedwith anesthesia plan. Reviewed the physical assessment, medical history, allergy history and patient home medications list prior to surgery/procedure/anesthetic and documented any changes. Performed airway and anesthesia risk assessments. Anesthesia Type Anesthesia Type: General (Hx of GERD, but patient claims no more symptoms since Jacob en Y surgery. ) History Source History Obtained from:: Patient and Chart Anesthesia Focused Assessment* Temperature: 98.3 F Pulse Rate: 71 Blood Pressure: 101/54 Respiratory Rate: 16 Pulse Ox: 100 Oxygen Delivery Method: Room Air Airway Assessment Mouth opens: >3 cm Mallampati Score: II Teeth Condition: Chipped/Broken (broken top side teeth, bilaterally. ) Neck Range of motion (ROM): Full ROM Labs Anesthesia Preop lab: CBC WBC 6.9 K/mm3 (4.4-11.0) 08/16/24 09:08/16/24 RBC 4.17 M/mm3 (4.2-5.4) L 08/16/24 09:08/16/24 Hgb 11.9 g/dL (12.0-15.0) L 08/16/24 09: 5 Hct 35.8 % (37-47) L 08/16/24 09:08/16/24 Plt Count 207 K/mm3 (150-450) 08/16/24 09:30 08/16/24 CHEMISTRY Potassium 4.0 mmol/L (3.3-5.1) 08/16/24 09:08/16/24 Sodium 136 mmol/L (133-145) 08/16/24 09:08/16/24 Magnesium 2.3 mg/dL (1.5-2.2) H 08/30/24 12:16 08/30/24 BUN 8 mg/dL (4-19) 08/16/24 09:30 08/16/24 Creatinine 0.55 mg/dL (0.70-1.20) L 08/16/24 09:30 Glucose 97 mg/dL (70-99) 08/16/24 09:30 08/16/24 POC Glucose 82 mg/dL (74-106) 09/01/24 05:59 09/01/24 TSH 1.91 uIU/mL (0.358-3.74) 08/21/23 04:29 COAG PT 15.2 SECONDS (11.7-14.9) H 08/20/23 10:56 08/09 03/04 Urine Test Negative Negative 09/01/24 05:35 09/01/24 Pre-Assessment Diagnosis/Proposed Procedure Planned Operative Procedure(s): (B) Hysterectomy TLH, bilateral salpingectomy, ERAS Anesthesia History Anesthesia History - shift supervisor film processing: Anesthesia History - shift supervisor film processing Hx Hospitalization Yes: 08/2023 HEART 08/25/24 11:24 PALPITATIONS Any Problems With Anesthesia No 08/25/24 11:24 Cholinesterase deficiency No 08/25/24 11:24 You/Your Family Experience No 08/25/24 11:24 fever (hyperthermia) with Relationship Recent Exposure to Contagious No 09/01/24 06:06 Disease Does patient have nerve No 08/25/24 11:24 stimulator Patient instructed to have device shut off --Does patient have Pacemaker No 09/01/24 06:09 or ICD? When Was Last Pacemaker Check QUESTION #4 FULL TEXT: You/Your Family Experience fever (hyperthermia) with Anesthesia Any additional information?: No Last Oral Intake Last Oral intake: Last Oral Intake NPO since 04:30 09/01/24 06:09 Meds taken in AM with sips of No 09/01/24 06:09 water? Meds patient instructed to take am of surgery Any additional information?: Yes Meds patient instructed to take am of surgery: No solid food sinceprior to midnight, had Ensure preop drink at 0430. PONV PONV - shift supervisor film processing: PONV - shift supervisor film processing Female Yes 08/25/24 11:24 HX of Motion Sickness No 08/25/24 11:24 HX of N/V After Surgery No 08/25/24 11:24 Non-Smoker No 08/25/24 11:24 Duration of Surgery greater Yes 08/25/24 11:24 than 60 minutes Number of Risk Factors 2 08/25/24 11:24 PONV Score Moderate Risk 08/25/24 11:24 Any additional information?: No Height & Weight Height & Weight: Anesthesia: Height & Weight Height 5 ft 8 in 09/01/24 06:09 Weight: 89.811 kg 09/01/24 06:09 Body Mass Index (BMI) 30.1 09/01/24 06:09 Respiratory Assessment Respiratory Assessment - shift supervisor film processing: Respiratory Tract Infection Hx - shift supervisor film processing Hx Respiratory Tract Infection No 08/25/24 11:24 Any additional information?: No STOP Sleep Apnea STOP Sleep Apnea - shift supervisor film processing: STOP Sleep Apnea - shift supervisor film processing Hx Hypertension No 08/25/24 11:24 Hx Sleep [...] than talking or can be heard through closeddoors)? Any additional information?: No Tobacco Use History Tobacco Use History - shift supervisor film processing: Tobacco Use History - shift supervisor film processing Tobacco Use Smoking Status Current every day smoker 08/25/24 11:24 Hx Tobacco Use No 08/25/24 11:24 Years Smoking Packs Smoked per Day Smoking Cessation Date was within the last 15 years Hx Smoking Cessation Date Hx Smoking Cessation No 08/25/24 11:24 Counseling Any additional information?: Yes Tobacco Use: Vapor Hematologic Medial History Hematologic Hx - shift supervisor film processing: Hematologic Medical Hx - platform consultant Hx of Blood Transfusion No 08/25/24 11:24 Hx of Transfusion in last 3 No 08/25/24 11:24 Months Date of Last Transfusion (if within last 3 months) Ever experience any problems No 08/25/24 11:24 with transfusion(s)? Specify any problems Hx of Preganancy in last 3 N/A 08/25/24 11:24 Months Nurse Filling Out Transfusion NBUCHER 08/25/24 11:24 & Questions: Date: 08/25/24 08/25/24 11:24 Time: 11:26 08/25/24 11:24 Patient unable to answer at this time (ie. confused, unrespo Any additional information?: No /Reproduction History /Reproductive History - shift supervisor film processing: /Reproductive Hx- shift supervisor film processing Hx Now No 08/25/24 11:24 Gestational Age (in weeks): EDC: Hx Hx Para Hx Section SAB No 08/25/24 11:24 Any additional information?: No Active Medications Active Medications: Current Medications Generic Name Dose Route Start Last Admin Trade Name Freq PRN Reason Stop Dose Admin Acetaminophen 1,000 mg 09/01/24 07:30 09/01/24 06:21 Acetaminophen 500 Mg Tablet PO 09/01/24 07:31 1,000 mg PREOP ONE Administration Dexamethasone Sodium Phosphate 8 mg 09/01/24 07:30 Dexamethasone 4 Mg/Ml Vial IV 09/01/24 07:31 INTRAOP ONE Enoxaparin Sodium 40 mg 09/01/24 07:30 09/01/24 06:27 Enoxaparin 40 Mg/0.4 Ml Syringe SC 09/01/24 07:31 40 mg PREOP ONE Administration Lactated Ringer's 1,000 mls @ 40 mls/hr 09/01/24 07:30 09/01/24 06:18 IV 40 mls/hr .Q25H NEWTON Administration Lactated Ringer's 1,000 mls @ 70 mls/hr 09/01/24 07:30 IV .[id number] [place]ON Cefazolin Sodium 2 gm/ Sodium 110 mls @ 150 mls/hr 09/01/24 07:30 Chloride IV 09/01/24 08:13 INTRAOP ONE Magnesium Sulfate 1 gm/ 102 mls @ 408 mls/hr 09/01/24 07:30 09/01/24 06:28 Dextrose IV 09/01/24 07:44 408 mls/hr PREOP ONE Administration Insulin Human Lispro 0 unit 09/01/24 07:30 Insulin Lispro 100 Unit/Ml Insuln.Pen SC 09/01/24 18:00 Q4H PRN PRN BG >/= 180, SEE PROTOCOL Protocol Ketorolac Tromethamine 30 mg 09/01/24 07:30 09/01/24 06:19 Ketorolac 30 Mg/Ml Syringe IV 09/01/24 07:31 30 mg X1 ONE Administration Ondansetron HCl 4 mg 09/01/24 07:30 Ondansetron 4 Mg/2 Ml Vial IV 09/01/24 07:31 INTRAOP ONE Phenazopyridine HCl 190 mg 09/01/24 07:30 09/01/24 06:21 Phenazopyridine 95 Mg Tablet PO 09/01/24 07:31 190 mg PREOP ONE Administration Scopolamine HBr 1 patch 09/01/24 07:30 09/01/24 06:27 Scopolamine 1mg/72hr Patch TD 09/01/24 07:31 1 patch PREOP ONE Administration [facility] Medical History Wears contact lenses Anxiety History of steroid [...] 75 mg PO DAILY nerves/pain 1 02/13/19 08/31/24 08:00 History cholecalciferol (vitamin D3) 50 50 mcg PO DAILY supple ment 08/20/23 08/31/24 08:00 History mcg (2,000 unit) tablet (D3 DOTS) multivitamin with iron 1 tab PO DAILY supplement 08/31/24 08:00 History vitamin B complex (Complex B-100 1 tab PO DAILY supple ment 08/20/23 08/31/24 08:00 History tablet,extended release) sumatriptan succinate 100 mg tablet 100 mg PO .COMPLEX 09/02/23 Unknown History alprazolam 0.5 mg tablet (Xanax) 0.5 mg PO QDAY PRN an xiety 03/08/24 Unknown History sertraline 50 mg tablet 50 mg PO DAILY 03/08/24/05/03 08:00 History ferrous sulfate 325 mg (65 mg 325 mg PO DAILY 08/25/24 08/31/24 08:00 History iron) tablet (Feosol) Allergy/AdvReac Type Severity Reaction Status Date / Time gabapentin (From Neurontin) Allergy Swelling Verified 09/01/24 06:04 human papillomavirus AdvReac Severe Swelling Verified 09/01/24 06:04 vaccine, quadr (From Gardasil (PF)) topiramate (From Topamax) AdvReac Mild TINGLING Verified 09/01/24 06:04 prednisone AdvReac Other Verified 09/01/24 06:04 Family History Mother Breast cancer Father Arthritis Surgical History History of gastric bypass Status post panniculectomy H/O section History of tonsillectomy History of ankle surgery History of foot surgery History of Jacob-en-Y gastric bypass Hx of cholecystectomy History of bilateral tubal ligation Social History household members: significant other Smoking Status: Current every day smoker tobacco type: e-cigarettes substance use type: does not use Addt'l Information Additional Findings: HX JACOB en Y, NO OG Review of Systems (Anesthesia) ROS Narrative System reviewed and no additional complaints, except as documented. 09/01/24 0726 a INSIGHTS STRATEGIST> Date _ Belkis Monk INSIGHTS STRATEGIST Cosigner Signature: Date CC: ~ Signed [facility]07-24-2025 History and physical note [facility] Medical Records Department [address] [place] [address] History & Physical Exam 08/24/24 1238 MR#: [id number] Acct: [id number] Name: RAUL CHONG DIANNA Rep #:[id number] : 1980 43 From: Beulah Campa MD PCP: Dr. Maira Escamilla MD Status:REG S DC Location: [place] [address]-1 History and Physical Date of Admission: 09/01/24 HPI: The patient is a 43 year old female presenting for pre-operative visit. She is scheduled for TLH, bilateral salpingectomy and cystoscopy, for adenomyosis, AUB, dysmenorrhea, intramural uterine fibroid and arcuate uterus on 09/01/24. Procedure discussed along with risks, benefits and complications. Other alternatives discussed for management. Consent form signed? Yes. ? ? PAST MEDICAL HISTORY PAST MEDICAL HISTORYDiagnosisDate?Autoimmune disease (HCC)??Degeneration of intervertebral disc, site unspecified??Depression??Migraines??Mild intermittent asthma (HCC)??Obesity??Osteoarthritis of both knees??Plantar fasciitis??Psoriasis? ? ? PAST SURGICAL HISTORY PAST SURGICAL HISTORYProcedureLateralityDate?ADENOIDECTOMY PRIMARY ? ? ? CURRENT MEDICATIONS Current Outpatient MedicationsMedicationSigDispenseRefill?pregabalin (LYRICA) 75mg capsuleTake 1 capsule by mouth once daily for 180 days.30 capsule5?valACYclovir (VALTREX) 500 mg tabletTake 4 tablets twice daily X 1 day. Then start one tablet by mouth daily thereafter.38 tablet4?Nebulizer Accessori eskit1 Units once daily as needed.1 Each0?sertraline (ZOLOFT) 50 mg tabletTake 1 tablet by mouth once daily.30 tablet5?calcium carbonate 400 mg (1,000 mg) chewTake 1,000 mg by mouth once daily.???ferrous sulfate (IRON) 325 mg (65 mg iron) tabletTake 325 mg by mouth once daily.???SUMAtriptan (IMITREX) 100 mg tabletTake 1 tablet (100 mg) by mouth as needed. START AT ONSET OF HEADACHE. MAY REPEAT DOSE AFTER 2 HOURS.9 tablet5?cyanocobalamin (VITAMIN B-12) 100 mcg tabTake 100 mcg by mouth once daily.???ergocalciferol, vitamin D2, (VITAMIN D2 ORAL)Take by mouth.???MULTIVITAMIN NO.43-IRON-FA ORALTake by mouth.???No currentfacility-administered medications for this visit. ? ? ALLERGIES: Gabapentin; Prednisone; Gardasil 9 (Pf) [Human Papillomav Vac,9- Elda(Pf)]; Lexapro [Escitalopram]; Tree And Shrub Pollen; and Topamax [Topiramate] ? PERSONAL HISTORY: SOCIAL HISTORY Social History?Tobacco Use?Smoking status:Former??Current packs/day:0.00??Average packs/day:0.3 packs/day for 24.0 years (6.0 ttl pk- yrs)??Types:Cigarettes??Start date:03/19/1990??Quit date:2014??Yearssince quittin.5?Smokeless tobacco:Never?Tobacco comments:??Quit in 2014, does vape dailyVaping Use?Vaping status:current everyday user?Start date:08/10/2023?Substances:Nicotine?Devices:DisposableSubstance Use Topics?Alcohol use:Not Currently??Comment: rarely?Drug use:No ? FAMILY HISTORY: FAMILY HISTORY FAMILY HISTORY ProblemRelationAge of Onset?Breast CancerMother??DiabetesMaternal Grandmother??DiabetesMaternal Uncle? ? ? REVIEW OF SYMPTOMS: GENERAL: denies fevers or chills ENDOCRINOLOGY: has not been on steroids Cardiology : denies palpitations or chest pain Respiratory: denies SOB or cough Hematology: denies history of prolonged bleeding or easy bruising or VTE Allergy: Denies history of personal or family history of allergy to anesthesia ? PHYSICAL EXAMINATION: ? VITALS: Blood pressure 102/58, pulse 70, height 172.7 cm (5' 8), weight 83.5 kg (184 lb), last menstrual period 08/06/2024, SpO2 97%. ? GENERAL: The patient is well nourished, well hydrated in no acute distress. , The patient is oriented to time, place, and person. NECK: Supple. No lynphadenopathy, normal thyroid, no thyromegaly. LUNGS: Clear to auscultation bilaterally. no wheezes, rhonchi or rales HEART: Regular rate and rhythm, Normal heart sounds, and No murmurs or gallops ? ? ? Pelvic US 07/21/24: The contour of [...] uterus. Fibroid uterus. Clinical correlation is recommended. ? ? ? IMPRESSION: arcuate uterus, dysmenorrhea, AUB, adenomyosis, intramural uterine fibroid ? PLAN: The risks/benefits/alternatives and personal involved for the planned TLH, bilateral salpingectomy and cystoscopy were reviewed with the patient. Her questions were answered to her satisfactionand she desires to proceed. Consent was signed. I reviewed with her postop instructions and expectations. ? ? I have reviewed and updated past medical and surgical history, medications and allergies Assessment & Plan Assessment/Plan (1) Dysmenorrhea: (2) Abnormal uterine bleeding (AUB): (3) Adenomyosis: (4) Intramural uterine fibroid: (5) Arcuate uterus: 08/24/24 1240 Cosigner Signature (if applicable): CC: Dr. Beulah Campa MD; Dr. Maira Escamilla MD~ Signed ADDENDUM by Dr. Beulah Campa MD on 09/01/24 at 0725 Addendum UPDATE- I have seen the patient and performed any clinically relevant updates to the history and physical exam. 09/01/24 07 Cosigner Signature (if applicable): cc: Dr. Beulah Campa MD; Dr. Maira Escamilla MD ~* Signed [facility]07-23-2025 NoteHNO ID: [id number] Author: ROSEANN ARMSTRONG MD Service: ? Author Type: Physician Type: Progress Notes Filed: 08/31/2024 09:33 Note Text: URGENT CARE MICHAEL Chong is a 43 year old female. [...] Objective BP 108/62 Pulse 70 Temp 36.4 ?C (97.5 ?F) Resp 16 Wt 85.4 kg (188 lb 4.4 oz) LMP 08/06/2024 (Approximate) SpO2 98% BMI 28.63 kg/m? Physical Exam Constitutional: General: She is not [...] which time oral antibiotic may be indicated. Roseann Armstrong MD Differential Diagnoses - Auditory canal sore is more likely for the following reason(s): suggested by [facility]P [facility] History of Present illness Narrative* Roseann Armstrong MD - 08/31/2024 9:18 AM EDT URGENT CARE MICHAEL Chong is a 43 year old female. [...] 85.4 kg (188 lb 4.4 oz) LMP 08/06/2024(Approximate) SpO2 98% BMI 28.63 kg/m Physical Exam [...] which time oral antibiotic may be indicated. Roseann Armstrong MD Differential Diagnoses - Auditory canal sore is more likely for the following reason(s): suggested by H&P Procedures documented in this encounterTrihealth [facility]07-[facility]-2025 [facility] Medical Records Department [address] [place] [id number] History Physical Exam 08/24/24 1238 MR#: [id number] Acct: [id number] Name: RAUL CHONG DIANNA Rep #: [id number] : 1980 43 From: Beulah Campa MD PCP: Dr. Maira Escamilla MD Status:[facility] Location: [place] [address] History and Physical Date of Admission: 09/01/24 [...] HISTORYDiagnosisDate???Autoimmune disease (HCC)?Degeneration of intervertebral disc, site unspecified?Depression?Migraines?Mild intermittent asthma (HCC)?Obesity?Osteoarthritis of both knees?Plantar fasciitis?Psoriasis? PAST SURGICAL HISTORY PAST SURGICAL HISTORYProcedureLateralityDate???ADENOIDECTOMY PRIMARY DELIVERY ONLY?, low cervical???GASTRIC BYPASS HX?Pt reported 2021???LAPAROSCOPY SURG CHOLECYSTECTOMY???2014???PAST SURGICAL HISTORY OF?Bilateral arthoscopy to ankles, scar tissue removal and tendon lengthening???REMOVAL OF EXCESSIVE SKIN?Stomach???TONSILLECTOMY PRIMARY/SECONDARY 12?Tonsillectomy ? CURRENT MEDICATIONS Current Outpatient MedicationsMedicationSigDispenseRefill???pregabalin (LYRICA) 75 mg capsuleTake 1 capsule by mouth once daily for 180 days.30 capsule5???valACYclovir (VALTREX) 500 mg tabletTake 4 tablets twice daily X 1 day. Then start one tablet by mouth daily thereafter.38 tablet4???Nebulizer Accessories kit1 Units once daily as needed.1 Each0???sertraline (ZOLOFT) 50 mg tabletTake 1 tabletby mouth once daily.30 tablet5???calcium carbonate 400 mg [...] Gabapentin; Prednisone; Gardasil 9 (Pf) [Human Papillomav Vac,9- Elda(Pf)]; Lexapro [Escitalopram]; Tree And Shrub Pollen; and Topamax [Topiramate] ??? PERSONAL HISTORY: SOCIAL HISTORY Social History???Tobacco Use???Smoking status:Former?Current packs/day:0.00?Average packs/day:0.3 packs/day for 24.0 years (6.0 ttl pk-yrs)?Types:Cigarettes?Start date:03/19/1990?Quit date:2014?Years since quittin.5???Smokeless tobacco:Never???Tobacco comments:?Quit [id number], does vape dailyVaping Use???Vaping status:current everyday user???Start date:08/10/2023???Substances:Nicotine???Devices:DisposableSubstance Use Topics???Alcohol use:Not Currently? Comment: rarely???Drug use:No [...] is 10.5 mm. There is a left (more content not included)...[facility] 08-24-2024 NoteHNO ID: [id number] Author: BEULAH CAMPA MD Service: ? Author Type: Physician Type: Progress Notes Filed: 08/24/2024 12:38 Note Text: Raul Chong is a 43 year old female who presents for problem visit for f/u AUB. HPI: 43 YOF w/ no new c/o today. Still w AUB. OB History Gravida3 Para2 Term2 Preterm0 AB1 Living2 SAB0 IAB0 Ectopic0 Multiple0 Live Births0 Senior Human Resources Representative History LMP: 08/06/2024 (Approximate), Having periods Age at Menarche: 12 Age at First : Age at Menopause: Senior Human Resources Representative History Comments: Sexual Activity: Yes; Male Contraception: [...] recommended. ASSESSMENT AND PLAN: (more content not included)...[facility] History of Present illness Narrative* Beulah Campa MD - 08/24/2024 12:32 PM EDT Raul Chong is a 43 year old female who presents for problem visit for f/u AUB. HPI: 43 YOF w/ no new c/o today. Still w AUB. OB History Gravida3 Para2 Term2 Preterm0 AB1 Living2 SAB0 IAB0 Ectopic0 Multiple0 Live Births0 Senior Human Resources Representative History LMP: 08/06/2024 (Approximate), Having periods Age at Menarche: 12 Age at First : Age at Menopause: Senior Human Resources Representative History Comments: Sexual Activity: Yes; Male Contraception: [...] R/B/a to hysterectomy reviewed, questions answered. Desires toproceed. Decision for surgery today. Short and snf risks of hyst and preop/postop expectations reviewed. Beulah Campa MD documented in this encounterTrihealth [facility]07-[facility] History and physical note * Beulah Campa MD - 08/24/2024 10:32 AM EDT Pre-Op History and Physical HPI: The patient [...] Gabapentin; Prednisone; Gardasil 9 (Pf) [Human Papillomav Vac,9- Elda(Pf)]; Lexapro [Escitalopram]; Tree And Shrub Pollen; and [...] patient. Her questions were answered to her satisfactionand she desires to proceed. Consent was signed. I reviewed with her postop instructions and expectations. I have reviewed and updated past medical and surgical history, medications and allergies Beulah Campa M.D. [facility]07-16-2025 History and physical note* Beulah Campa MD - 08/24/2024 10:32 AM EDT Pre-Op History and Physical HPI: The patient [...] Gabapentin; Prednisone; Gardasil 9 (Pf) [Human Papillomav Vac,9- Elda(Pf)]; Lexapro [Escitalopram]; Tree And Shrub Pollen; and [...] patient. Her questions were answered to her satisfactionand she desires to proceed. Consent was signed. I reviewed with her postop instructions and expectations. I have reviewed and updated past medical and surgical history, medications and allergies Beulah Campa M.D. documented in this encounterTrihealth [facility]cc[facility]07-08-2025 Discharge summary [facility] Medical Records Department [address] [place] [address] Emergency Department Summary 08/16/24 MR#: [id number] Acct: [id number] Name: RAUL FLEMING DIANNA Rep #:[id number] : 1980 43 From: Carlos Dockery MD [...] had. She states she has mildly sore throat,but her worst symptoms are the fever, and bodyaches. She denies any sick contacts. No cough or difficulty breathing. She states she had a uterine biopsy a week or soago, but is not having any vaginaldischarge or pain. No dysuria or hematuria. [facility] Medical History Migraine GERD (gastroesophageal reflux disease) [...] potassium. Urinalysis negative for infection, negative for ketones,0-5 WBCs. I do not feel antibiotics are [...] more for viral syndrome. She will continue over-the- counter antipyretics and analgesics and follow-up with her [...] 89.2 H Lymph % (Auto) 4.7 L [place] % (Auto) 5.4 Eos % (Auto) 0.1 [...] Clarity Clear Urine pH 6.0 Ur Specific [place] 1.010 Urine Protein 15 H Urine Glucose [...] IMPRESSION: No acute cardiopulmonary process. Reading Location: [facility] Discharge Plan Triage Chief Complaint: General Illness [...] if not improving Activity Restrictions/Additional Instructions: Continue [id number] Tylenol as needed for fever and pain. Follow-up with your primary care provider in the next 3 to 5 days. Return to the emergency department with new or worsening symptoms. Print Language: Lebanese Disposition Disposition: Home, Self Care What to do if you have Problems For any increased pain, shortness of breath, bleeding, nausea or vomiting, chestpain, or any unexpected problems, contact your Primary Care Provider. Call [facility] ([phone]) or report tothe closest Emergency Room. Call 911 if necessary. 08/16/24 1134 Cosigner Signature (if applicable): CC: Dr. Maira Escamilla MD ~ Signed [facility]07-08-2025 Radiology Diagnostic study note [facility] Imaging Services [address] [place], [place] [id number] Chest 1 View (Portable) MR#: [id number] Acct: [id number] Name: RAUL FLEMING DIANNA Rep #: [id number] : 1980 F 43 From: Sushma Ruiz MD PCP: Dr. Maira Escamilla MD Status: REG E R Study:Chest 1 View (Portable) Date of Exam: 08/16/24 Exam# [id number] Ordering Dr: Carlos Dockery MD EXAM: XR Chest, 1 View CLINICAL INDICATION: FEVER TECHNIQUE: Frontal view of the chest. COMPARISON: No relevant prior studies available. FINDINGS: LUNGS AND PLEURAL SPACES: Unremarkable. No consolidation. No pneumothorax. HEART: Unremarkable. No cardiomegaly. MEDIASTINUM: Unremarkable. Normal mediastinal contour. BONES/JOINTS: Unremarkable. No acute fracture. RAD/Chest 1 View (Portable) IMPRESSION: No acute cardiopulmonary process. Reading [facility] CC: Dr. Carlos Dockery MD; Dr. Maira Escamilla MD ~ Solar Electric Installer: Signed [facility]06-29-2025 Telephone encounter Note* Telephone Encounter - Makeda Horta RN - 08/07/2024 4:43 PM EDT Patient calling back because she has not received a call from the substation engineer provider. Conferenced patient to [place] in the [place] answering service to have substation engineer provider paged again [facility]06-29-2025 Miscellaneous Notes* Telephone Encounter - Makeda Horta RN - 08/07/2024 4:43 PM EDT Patient calling back because she has not received a call from the substation engineer provider. 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 She had a uterine biopsy 08/04 and had some cramping and spotting after. She was fine Thursday. Yesterday she went to [place] and developed bright red bleeding and began passing clots intermittently. Today she is having more bleeding and clots. Contacted the [place] Answering Service [ ] who took patient's information and will text page provider substation engineer for Makeda Smith.FATEMEH WRIGHT. I told patient that if while she was waiting to hear from the provider and if her condition worsensor she is concerned, she should call 911 or go to the ER. Patient voices understanding. 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 She had a uterine biopsy 08/04 and had some cramping and spotting after. She was fine Thursday. Yesterday she went to [place] and developed bright red bleeding and began passing clots intermittently. Today she is having more bleeding and clots. Contacted the [email or web address] Service [ ] who took patient's information and will text page provider substation engineer for Makeda Smith.FATEMEH WRIGHT. I told patient that if while she was waiting to hear from the provider and if her condition worsensor she is concerned, she should call 911 or go to the ER. Patient voices understanding. [facility]06-[facility] History of Present illness Narrative* Makeda Smith APRN.FATEMEH - 08/04/2024 9:30 AM EDT Patient declined line helper. Silke is a 43 year old Female [...] patient. Makeda Smith APRN.FATEMEH documented in this encounterTrihealth Mcc[facility]06-26-2025 NoteHNO ID: [id number] Author: MAKEDA SMITH APRN.CNP Service: ? Author Type: Nurse Practitioner Type: Progress Notes Filed: 08/04/2024 10:13 Note Text: Patient declined line helper. Silke is a 43 year old Female [...] material given to the patient. Makeda Smith APRN.CNPRiverview [facility] Institute06-26-2025 Instructions* Patient Instructions* Makeda Smith APRN.CNP - 08/04/2024 8:59 AM [...] well as have some bleeding after the procedure.There is also a risk of infection after [...] do not hear the results of your biopsyafter 2 weeks, please contact your physicians office for the results. If you have any additional questions, please contact your doctor's office. documented in this encounterTrihealth Mcc[facility]06-23-2025 NoteHNO ID: [id number] Author: BEULAH CAMPA MD Service: ? Author Type: Physician Type: Progress Notes Filed: 08/01/2024 12:07 Note Text: Obstetrics and Gynecology [place] MATERIAL DISTRIBUTOR Visit Subjective Recording using ambient AI software for draft documentation of the visit was discussed with the patient/authorized medical customer service representative; all questions welcomed and answered. 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 - Has a supportive boyfriend who is a final inspector truck trailer. - Drinks coffee but reports drinking water slowly and in small amounts. - Takes vitamins daily and reports eating well. - Has two children, both delivered via , and has had a tubal ligation. HISTORY: OB History Gravida3 Para2 Term2 Preterm0 AB1 Living2 SAB0 IAB0 Ectopic0 Multiple0 Live Births0 Senior Human Resources Representative History LMP: 07/10/2024 (Exact Date), Having periods Age at Menarche: 12 Age at First : Age at Menopause: Senior Human Resources Representative History Comments: Sexual Activity: Yes; Male Contraception: [...] Take by mouth. MUL (more content not included)...[facility] History of Present illness Narrative* Beulah Campa MD - 08/01/2024 12:02 PM EDT Images from the original note were not included. Obstetrics and Gynecology [place] MATERIAL DISTRIBUTOR Visit Subjective Recording using mapp2link software for draft documentation of the visit was discussed with the patient/authorized medical customer service representative; all questions welcomed and answered. Patient/authorized medical customer service representative agreed to proceed CHIEF COMPLAINT: The [...] have before, and uses a heating pad forrelief. - Denies intermenstrual bleeding Vapes nicotine substances. 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 - Has a supportive boyfriend who is a final inspector truck trailer. - Drinks coffee but reports drinking water slowly and in small amounts. - Takes vitamins daily and reports eating well. - Has two children, both delivered via , and has had a tubal ligation. HISTORY: OB History Gravida3 Para2 Term2 Preterm0 AB1 Living2 SAB0 IAB0 Ectopic0 Multiple0 Live Births0 Senior Human Resources Representative History LMP: 07/10/2024 (Exact Date), Having periods Age at Menarche: 12 Age at First : Age at Menopause: Senior Human Resources Representative History Comments: Sexual Activity: Yes; Male Contraception: [...] discussed with the Patient or Patient's Authorized Sweat Box Attendant. As applicable, any other physician, advance practice provider, medical student, or other health professional student that will be observing or involved in the sensitive examination for educational or training purposes was discussed with the Patient or Authorized Sweat Box Attendant. The Patient or Authorized Sweat Box Attendant has agreed to proceed with the sensitive [...] external genitalia normal, normal Bartholin's glands, urethra, [place]'s glands, no vulvar lesions, no cervical lesions, good vaginal support, physiologic discharge present, normal appearing perineal body and perianal region - BIMANUAL: uterus normal size, shape and consistency, no adnexal masses, non- tender, uterus is mobile - Patient consent for [...] Hysterectomy discussed and we reviewed short and snf risks/complications w/ hysterectomy and postop recovery/limitations and expectations - Patient expressed reluctance towards IUD and preference for hysterectomy; agreed to proceed with hysterectomy after endometrial biopsy. - Scheduled endometrial biopsy to rule out any underlying pathology; can be performed by or Makeda, depending on availability. - Will coordinate with crew scheduler to arrange hysterectomy before patient returns to work in mid-September. would be tlh, bilateral salpingectomy and cysto Beulah Campa MD documented in this encounterTrihealth M[facility]06-23-2025 Telephone encounter Note * Telephone Encounter - Alexia Brian RN - 08/01/2024 9:16 AM EDT Case message sent to equipment scheduler for an update [facility]06-23-2025 Miscellaneous Notes* Telephone Encounter - Alexia Brian RN - 08/01/2024 9:16 AM EDT Case message sent to equipment scheduler for an update * Telephone Encounter - Rachna Lynn - 08/01/2024 9:07 AM EDT Patient calling for an update on status of authorization for procedure. Please call to advise. * Telephone Encounter - Ladi Tierney - 06/29/2024 1:27 PM EDT Patient requesting return call to advise on insurance auth for surgery. See below. Please return call to [phone] * Telephone Encounter - Jessica Desir - 06/21/2024 12:39 PM EDT Patient calling to see if prior authorization was sent to insurance company for her surgery with Dr. Sterling. She can be reached at [phone]. documented in this encounterTrihealth Mcc[facility]06-23-2025 Telephone encounter Note * Telephone Encounter - Rachna Lynn - 08/01/2024 9:07 AM EDT Patient calling for an update on status of authorization for procedure. Please call to advise. [facility]06-17-2025 Telephone encounter Note* Telephone Encounter - Concha Akers RN - 07/26/2024 1:25 PM EDT Pt notified and Pt scheduled with RR on 08/01/24. Concha Akers RN [facility]06-17-2025 Miscellaneous Notes* Telephone Encounter - Concha Akers RN - 07/26/2024 1:25 PM EDT Pt notified and Pt scheduled with RR on 08/01/24. Concha Akers, GEORGINA * Telephone Encounter - Makeda Smith APRN.CNP - 07/26/2024 1:12 PM EDT Yes I just spoke with someone a little while ago and I had not had a chance to make the phone note on it yet. Dr. Henderson recommended her following up with one of them to discuss options and make medical decision from there. Makeda Smith APRN.CNP * Telephone Encounter - Laurel Vizcarra RN - 07/26/2024 12:34 PM EDT Patient called to inquire if RM spoke to one of the physicians regarding a hysterectomy for her. Does she just need an appointment to discuss? Laurel Vizcarra RN documented in this encounterTrihealth M[facility]06-17-2025 Telephone encounter Note * Telephone Encounter - Makeda Smith APRN.CNP - 07/26/2024 1:12 PM EDT Yes I just spoke with someone a little while ago and I had not had a chance to make the phone note on it yet. Dr. Henderson recommended her following up with one of them to discuss options and make medical decision from there. Makeda Smith APRN.CNP [facility] Work Phone: [phone]) 369-428406-17-2025 Telephone encounter Note* Telephone Encounter - Laurel Vizcarra RN - 07/26/2024 12:34 PM EDT Patient called to inquire if RM spoke to one of the physicians regarding a hysterectomy for her. Does she just need an appointment to discuss? Laurel Vizcarra RN [facility]06-13-2025 NoteHNO ID: [id number] Author: MAKEDA SMITH APRN.CNP Service: ? Author Type: Nurse Practitioner Type: Progress Notes Filed: 07/22/2024 10:27 Note Text: Raul Chong is a 43 year old female who presents for problem visit redo pap SENSITIVE EXAM: The sensitive examination was discussed with the Patient or Patient's Authorized Sweat Box Attendant. As applicable, any other physician, advance practice provider, medical student, or other health professional student that will be observing or involved in the sensitive examination for educational or training purposes was discussed with the Patient or Authorized Sweat Box Attendant. The Patient or Authorized Sweat Box Attendant has agreed to proceed with the sensitive examination. (Sensitive examination includes inspection and/or palpation of the breasts, pelvis, prostate and anorectal regions). EXAM: BP 102/64 Wt 178 lb (80.7kg) LMP 07/10/2024 GENERAL: pleasant, female in no apparent distress HEENT: Normocephalic, atraumatic, mucus membranes moist, and no lesions CHEST: Normal inspiratory effort PELVIC: external genitalia normal, normal Bartholin's glands, urethra, [place]'s glands, no vulvar lesions, no cervical lesions, physiologic discharge present, normal appearing perineal body and perianal region BIMANUAL: deferred NEURO: alert and oriented x3,exam grossly non-focal EXTREMITIES: normal ASSESSMENT AND PLAN: Assessment AND Plan Screening for cervical cancer Repeat Pap due to excess amount of blood and prior Pap. Makeda Smith APRN.[facility]06-13-2025 History of Present illness Narrative* Makeda Smith APRN.[facility] - 07/22/2024 10:06 AM EDT Raul Chong is a 43 year old female who presents for problem visit redo pap SENSITIVE EXAM: The sensitive examination was discussed with the Patient or Patient's Authorized Sweat Box Attendant. As applicable, any other physician, advance practice provider, medical student, or other health professional student that will be observing or involved in the sensitive examination for educational or training purposes was discussed with the Patient or Authorized Sweat Box Attendant. The Patient or Authorized Sweat Box Attendant has agreed to proceed with the sensitive examination. (Sensitive examination includes inspection and/or palpation of the breasts, pelvis, prostate and anorectal regions). EXAM: BP 102/64 Wt 178 lb (80.7kg) LMP 07/10/2024 GENERAL: pleasant, female in no apparent distress HEENT: Normocephalic, atraumatic, mucus membranes moist, and no lesions CHEST: Normal inspiratory effort PELVIC: external genitalia normal, normal Bartholin's glands, urethra, [place]'s glands, no vulvar lesions, no cervical lesions, physiologic discharge present, normal appearing perineal body and perianal region BIMANUAL: deferred NEURO: alert and oriented x3,exam grossly non-focal EXTREMITIES: normal ASSESSMENT AND PLAN: Assessment & Plan Screening for cervical cancer Repeat Pap due to excess amount of blood and prior Pap. Makeda Smith APRN.CNP documented in this encounterTrihealth [facility]cc[facility]06-[facility] Note Indication Evaluation of abnormal uterine bleeding: [...] Viri Briseno RDMS Read By: Yelitza Rider M.D.MATERNAL [id number] NoteHNO ID: [id number] Author: YELITZA RIDER MD Service: ? Author Type: Physician Type: Progress Notes Filed: 07/21/2024 13:46 Note Text: The patient presents for requested ultrasound. Full report available in the Imaging tab in Impulse[employer]. [facility] History of Present illness Narrative* Yelitza Rider MD - 07/21/2024 1:24 PM EDT The patient presents for requested ultrasound. Full report available in the Imaging tab in [employer]. Yelitza Rider MD documented in this encounterTrihealth Mccull[facility]06-12-2025 History of Present illness Narrative* Vidhya Vazquez Mammo Tech - 07/21/2024 11:10 AM EDT Radiology Service Progress Note PATIENT NAME: [...] Assigned female at . status: : No status:NO. PATIENT RELEVANT IMPLANT DATA REVIEWED: Not Applicable PATIENT PRESENTS WITH AN IMPLANTABLE OR ATTACHED SCOUT: No RADIOLOGY DEPARTMENT: Mammography PERIPHERAL IV DATA: Not applicable SIGNED BY: Анна Nagel July 21, 2024 11:38 AM documented in this encounterTrihealth Mccull[facility]06-12-2025 NoteHNO ID: [id number] Author: VIDHYA VAZQUEZ Mammo Tech Service: ? Author Type: Teacher Theater Arts Type: Progress Notes Filed: 07/21/2024 11:38 Note [...] PATIENT PRESENTS WITH AN IMPLANTABLE OR ATTACHED SCOUT: No RADIOLOGY DEPARTMENT: Mammography PERIPHERAL IV DATA: Not applicable SIGNED BY: Анна Nagel July 21, 2024 11:[address] [facility]06-10-2025 Telephone encounter Note* Telephone Encounter - Ayaan Swift RN - 07/19/2024 10:59 AM EDT Patient notified. She is upset, she really wanted to get this vaccine. Asking if one vaccine will help prevent HPV at all even a small percentage? Can sent Infoh[employer] message with response. Ayaan Swift RN [facility]06-10-2025 Miscellaneous Notes* Telephone Encounter - Ayaan Swift RN - 07/19/2024 10:59 AM EDT Patient notified. She is upset, she really wanted to get this vaccine. Asking if one vaccine will help prevent HPV at all even a small percentage? Can sent Infoharmoni message with response. Ayaan Swift RN * Telephone Encounter - Makeda Smith APRN.CNP - 07/19/2024 10:23 AM EDT Please let the patient know that she can take Benadryl, along with ibuprofen and icing the area. Based on her reaction I would not recommend completing the series then. Makeda Smith APRN.FATEMEH * Telephone Encounter - Ayaan Swift RN - 07/19/2024 8:49 AM EDT Patient had HPV vaccine 07/12/24. She had no issues until last night she woke up to pain at the injection site. Hurts to lift arm and has redness/rash below the area it would have been given. Asking ifit's normal to have a reaction like this after a week and what she should do? She tried tylenol andice to her arm to help so far. Should she get the rest of the series? Please advise. Ayaan Swift RN documented in this encounterTrihealth Mcc[facility]06-10-2025 Telephone encounter Note * Telephone Encounter - Makeda Smith APRN.CNP - 07/19/2024 10:23 AM EDT Please let the patient know that she can take Benadryl, along with ibuprofen and icing the area. Based on her reaction I would not recommend completing the series then. Makeda Smith APRN.CNP [facility] Work Phone: 1(871) 846-917106-10-2025 Telephone encounter Note* Telephone Encounter - Ayaan Swift RN - 07/19/2024 8:49 AM EDT Patient had HPV vaccine 07/12/24. She had no issues until last night she woke up to pain at the injection site. Hurts to lift arm and has redness/rash below the area it would have been given. Asking ifit's normal to have a reaction like this after a week and what she should do? She tried tylenol andice to her arm to help so far. Should she get the rest of the series? Please advise. Ayaan Swift RN [facility]06-09-2025 NoteHNO ID: [id number] Author: MAIRA ESCAMILLA MD Service: ? Author Type: Physician Type: Progress Notes Filed: 07/18/2024 15:33 Note Text: Patient never checked in for appt.[facility]06-09-2025 History of Present illness Narrative* Maira Escamilla MD - 07/18/2024 3:24 PM EDT Patient never checked in for appt. documented in this encounterTrihealth Mccull[facility]06-05-2025 Instructions* Patient Instructions* Bonny Henry APRN.CNP - 07/14/2024 4:15 PM EDT Patient is [...] need for further procedures documented in this encounterTrihealth Mcc[facility]06-05-2025 NoteHNO ID: [id number] Author: BRIAN GARCIA LPN Service: ? Author Type: LICENSED NURSE Type: Progress Notes Filed: 07/14/2024 13:44 Note Text: DATE OF PHOTOS: 07/14/2024 Body Part: Abdomen and Leg(s) Brian Garcia LPN July 14, 2024 1:43 [facility]06-05-2025 History of Present illness Narrative* Brian Garcia LPN - 07/14/2024 1:42 PM EDT DATE OF PHOTOS: 07/14/2024 Body Part: Abdomen and Leg(s) Brian Garcia LPN July 14, 2024 1:43 PM documented in this encounterTrihealth Mcc[facility]06-05-2025 History of Present illness Narrative* Bonny Henry APRN.WOODS MANAGER - 07/14/2024 1:00 PM EDT Plastic Surgery Note CC: Consult for [...] APRN.CNP July 14, 2024 documented in this encounterTrihealth Mcc[facility]06-05-2025 NoteHNO ID: [id number] Author: BONNY HENRY APRN.CNP Service: ? Author [...] time was spent for (more content not included)...[facility] 07-12-2024 Instructions* Patient Instructions* Makeda Smith APRN.CNP - 07/12/2024 9:42 AM EDT Gardasil Gardasil is a vaccine to protect against Human Papillomavirus (HPV) types 6, 11, 16, 18, 31,33,45, 52, 58. These viruses cause cancer and precancerous lesions on the cervix (opening between vagina and uterus), in the vagina and on the vulva (skin around the outside of the vagina) as well as genitalwarts. The vaccine cannot cause these diseases and [...] at 0 and 8 months. In ages 15- 45, three injections are given at 0,2,6 months. Common side effects include pain, redness, itching and swelling at the injection site, nausea, fever, dizziness and fainting. Rare but potentially serious reactions have been reported. These include allergic reaction, swollen glands, joint and muscle pain, weakness and Guillain-Leeds syndrome. documented in this encounterTrihealth Mcc[facility]06-03-2025 NoteHNO ID: [id number] Author: MAKEDA SMITH APRN.CNP Service: ? Author Type: Nurse Practitioner Type: Progress Notes Filed: 07/12/2024 10:12 Note Text: Patient declined line helperMarivel Edouard is a 43 year old who presents for an annual gynecologic exam with complaints, irregular bleeding. LMP: 07/10/2024 Menses: cycles every 28-30 days and 4-5 days of flow Sexually active: Yes Contraception: Tubal Ligation 2009 HPV vaccine: No Last pap smear: 08/08/2019, normal HPV:negative 08/08/2019 History of abnormal pap: Yes Colposcopy: Yes: Pt reported 2011 Last mammogram: 03/07/2022 normal OB History Gravida3 Para2 Term2 Preterm0 AB1 Living2 SAB0 IAB0 Ectopic0 Multiple0 Live Births0 Senior Human Resources Representative History LMP: 07/10/2024 (Exact Date), Having periods Age at Menarche: 12 Age at First : Age at Menopause: Senior Human Resources Representative History Comments: Sexual Activity: Yes; Male Contraception: [...] discussed with the Patient or Patient's Authorized Sweat Box Attendant. As applicable, any other physician, advance practice provider, medical student, or other health professional student that will be observing or involved in the sensitive examination for educational or training purposes was discussed with the Patient or Authorized Sweat Box Attendant. The Patient or Authorized Sweat Box Attendant has agreed to proceed with the sensitive [...] external genitalia normal, normal Bartholin's glands, urethra, [place]'s glands, no vulvar lesions, no cervical lesions, [...] regular cycle - IC (more content not included)...[facility]06-03-2025 History of Present illness Narrative* Makeda Smith APRN.WOODS MANAGER - 07/12/2024 9:06 AM EDT Patient declined line helper. Silke is a 43 year old who [...] Living2 SAB0 IAB0 Ectopic0 Multiple0 Live Births0 Senior Human Resources Representative History LMP: 07/10/2024 (Exact Date), Having periods Age at Menarche: 12 Age at First : Age at Menopause: Senior Human Resources Representative History Comments: Sexual Activity: Yes; Male Contraception: [...] discussed with the Patient or Patient's Authorized Sweat Box Attendant. As applicable, any other physician, advance practice provider, medical student, or other health professional student that will be observing or involved in the sensitive examination for educational or training purposes was discussed with the Patient or Authorized Sweat Box Attendant. The Patient or Authorized Sweat Box Attendant has agreed to proceed with the sensitive [...] external genitalia normal, normal Bartholin's glands, urethra, [place]'s glands, no vulvar lesions, no cervical lesions, [...] HPV VACCINE, 9-VALENT (GARDASIL 9) Makeda Smith APRN.FATEMEH Patient identified by name and date of [...] office at time of injection. Makeda Smith APRN.FATEMEH documented in this encounterTrihealth Mcc[facility]05-21-2025 Telephone encounter Note * Telephone Encounter - Ladi Tierney - 06/29/2024 1:27 PM EDT Patient requesting return call to advise on insurance auth for surgery. See below. Please return call to [phone] [facility]05-13-2025 Telephone encounter Note* Telephone Encounter - Jessica Desir - 06/21/2024 12:39 PM EDT Patient calling to see if prior authorization was sent to insurance company for her surgery with Dr. Sterling. She can be reached at [phone]. [facility]05-01-2025 Instructions* Patient Instructions* Bonny Henry APRN.CNP - 06/09/2024 2:48 PM EDT -finish Augmentin [...] questions or concerns during business hours call [phone] or after hours (after 5 pm or on the weekend) call [phone] and ask for the plastic surgery resident / fellow substation engineer for further instructions. If you have increasing [...] breathe or difficulty breathing documented in this encounterTrihealth Mcc[facility]05-01-2025 History of Present illness Narrative* Bonny Henry APRN.CNP - 06/09/2024 2:20 PM EDT Plastic Surgery Post Op Note CC: [...] questions or concerns during business hours call [phone] or after hours (after 5 pm or on the weekend) call [phone] and ask for the plastic surgery resident / fellow substation engineer for further instructions. If you have increasing [...] APRN.FATEMEH June 09, 2024 documented in this encounterTrihealth Mcc[facility]05-01-2025 NoteHNO ID: [id number] Author: BONNY HENRY APRN.WOODS MANAGER Service: ? Author Type: Nurse Practitioner Type: [...] questions or concerns during business hours call [phone] or after hours (after 5 pm or on the weekend) call [phone] and ask for the plastic surgery resident / fellow substation engineer for further instructions. If you have increasing [...] in 3 months Bonny Henry APRN.FATEMEH [facility] 09[facility]04-25-[facility]25 NoteHNO ID: [id number] Author: BONNY HENRY APRN.FATEMEH Service: ? Author [...] questions or concerns during business hours call [phone] or after hours (after 5 pm or on the weekend) call [phone] and ask for the plastic surgery resident / fellow substation engineer for further instructions. If you have increasing [...] to clinic in 1 week Bonny Henry APRN.WOODS MANAGER June 03, 2024[id number] Discharge summary [facility] Medical Records Department [address] [place] [address] Emergency Department Summary 06/02/24 MR#: [id number] Acct: [id number] Name: RAUL FLEMING DIANNA Rep #:[id number] : 1980 43 From: Carlos Dockery MD PCP: Dr. Maira Escamilla MD Status:REG E R Location: ED HPI History of Present Illness Chief Complaint: Wound Narrative Narrative: 43-year-old female states that she had plastic surgery on her pannus in March, approximately 3 months ago. This was performed by Dr. Sterling with the [facility] out of [place]. Since then, she has had areas of [...] she was told to come to the emergencydepartment for evaluation. She has an appointment with them tomorrow however. She was concerned because while she has been dealing with wound abscesses and infections, she spiked a fever today. [facility] Medical History (Updated 06/02/24 @ 16:09 by [...] patient, it is not felt that sherequires CTof the abdomen pelvis to look for a deeper wound. In discussion with the patient, she stated that her fever was as high as 101 ?F but she did not take an antipyretic. She is afebrile here and has remained afebrile. I reviewed her laboratory work andalex has normal white count of 4.6 with [...] antibiotics that they wrote for her. Return i nstructions were reviewed. Her lactic acid did return [...] as scheduled. Continue the Bactrimthat was written foryou by their office. Return to the emergency department with sustained high fever, new or worseningsymptoms. Print Language: Lebanese Disposition Disposition: Home, Self Care What to do if you have Problems For any increased pain, shortness of breath, bleeding, nausea or vomiting, chestpain, or any unexpected problems, contact your Primary Care Provider. Call [facility] ([phone]) or report tothe closest Emergency Room. Call 911 if necessary. 06/02/24 1627 Cosigner Signature (if applicable): CC: Dr. Maira Escamilla MD ~ Signed [facility]04-24-2025 Discharge summary Author Carlos Dockery [facility] Note Date/Time June 02, 2024 4:2 7pm [facility] Medical Records Department [address] [place] [address] Emergency Department Summary 06/02/24 MR#: [id number] Acct: [id number] Name: RAUL FLEMING Rep #:[id number] : 1980 43 From: Carlos Dockery MD PCP: Dr. Maira Escamilla MD Status:REG E R Location: ED HPI History of Present Illness Chief Complaint: Wound Narrative Narrative: 43-year-old female states that she had plastic surgery on her pannus in March, approximately 3 months ago. This was performed by Dr. Sterling with the [facility] out of [place]. Since then, she has had areas of [...] and infections, she spiked a fever today. [facility] Medical History (Updated 06/02/24 @ 16:09 by [...] fever, new or worsening symptoms. Print Language: Lebanese Disposition Disposition: Home, Self Care What to do if you have Problems For any increased pain, shortness of breath, bleeding, nausea or vomiting, chestpain, or any unexpected problems, contact your Primary Care Provider. Call [facility] ([phone]) or report to the closest Emergency Room. Call 911 if necessary. 06/02/24 8931 <Electronically signed by Carlos Dockery MD> Cosigner Signature (if applicable): CC: Dr. Maira Escamilla MD ~ Signed [facility] Work Phone: [phone]) 604-738104-18-2025 NoteHNO ID: [id number] Author: BONNY HENRY APRN.FATEMEH Service: ? Author [...] from the site. Bonny Henry APRN.FATEMEH May 27[facility]04[facility] History of Present illness Narrative* Bonny Henry APRN.FATEMEH - 05/27/2024 12:27 PM EDT Pt's call [...] from the site. Bonny Henry APRN.CNP May 27, 2024 documented in this encounterTrihealth M[facility]04-17-2025 Telephone encounter Note * Telephone Encounter - Alexia Brian RN - 05/26/2024 10:31 AM EDT Responded to patient photos via [employer] [facility]04-17-2025 Miscellaneous Notes* Telephone Encounter - Alexia Brian RN - 05/26/2024 10:31 AM EDT Responded to patient photos via Lol[employer] * Telephone Encounter - Tomeka Vidal - 05/26/2024 10:11 AM EDT Patient states abscess is back in the same spot has yellow discharge red and swollen please advise.Advised to send pictures documented in this encounterTrihealth Mcc[facility]04-17-2025 Telephone encounter Note * Telephone Encounter - Tomeka Vidal - 05/26/2024 10:11 AM EDT Patient states abscess is back in the same spot has yellow discharge red and swollen please advise.Advised to send pictures [facility]04-03-2025 Instructions* Patient Instructions* Bonny Henry APRN.FATEMEH - 05/12/2024 11:49 AM EDT -RTW letter [...] 4 weeks after surgery. 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 Do not [...] silicone ingredient Encouraged patient to communicate through [facility] for all non-urgent questions or concerns. If experiencing wound complications or have any questions or concerns during business hours call [phone] or after hours (after 5 pm or on the weekend) call [phone] and ask for the plastic surgery resident / fellow substation engineer for further instructions. If you have increasing [...] breathe or difficulty breathing documented in this encounterTrihealth Mcc[facility]04-03-2025 History of Present illness Narrative* Bonny Henry APRN.CNP - 05/12/2024 10:00 AM EDT Plastic Surgery [...] 4 weeks after surgery. 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 Do not [...] questions or concerns during business hours call [phone] or after hours (after 5 pm or on the weekend) call [phone] and ask for the plastic surgery resident / fellow substation engineer for further instructions. If you have increasing [...] to clinic in 1 month Bonny Henry APRN.FATEMEH May 12, 2024 documented in this encounterTrihealth M[facility]04-03-2025 NoteHNO ID: [id number] Author: BONNY HENRY APRN.FATEMEH Service: ? Author [...] 4 weeks after surgery. 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 Do not [...] silicone ingredient Encouraged patient to [facility] for all non-urgent questions or concerns. If experiencing wound complications or have any questions or concerns during business hours call [phone] or after hours (after (more content not included)...[facility]03-23-2025 Telephone encounter Note* Telephone Encounter - Leeroy [...] to come to ED immediately or call 9-11, patient understanding. Leeroy Groves MD Plastic Surgery Resident [phone] After 6 pm and on-weekends, please page [phone] (on-call plastic surgery) [facility]03-23-2025 Miscellaneous Notes* Telephone Encounter - Leeroy [...] to come to ED immediately or call 9-11, patient understanding. Leeroy Groves MD Plastic Surgery Resident [phone] After 6 pm and on-weekends, please page [phone] (on-call plastic surgery) documented in this encounterTrihealth Mcc[facility]03-23-2025 Telephone encounter Note * Telephone Encounter - Adela Mejía RN - 05/01/2024 12:03 PM EDT Patient calling regarding concern for infection at incision site. Conferenced to [facility] log stacker operator, Yanique, to speak with provider substation engineer for Dr. Jae Sterling (Plastic Surgery). GO TO THE EMERGENCY ROOM OR CALL 911 IF: * You develop any new symptoms * Your condition worsens * You are concerned or anxious about your condition for any other reason. If you have any questions, you can call Nurse knitting demonstrator back. [facility]03-23-2025 Miscellaneous Notes* Telephone Encounter - Adela Mejía RN - 05/01/2024 12:03 PM EDT Patient calling regarding concern for infection at incision site. Conferenced to [facility] log stacker operator, Yanique, to speak with provider substation engineer for Dr. Jae Sterling (Plastic Surgery). GO TO THE EMERGENCY ROOM OR CALL 911 IF: * You develop any new symptoms * Your condition worsens * You are concerned or anxious about your condition for any other reason. If you have any questions, you can call Nurse knitting demonstrator back. documented in this encounterTrihealth M[facility]03-10-2025 Telephone encounter Note * Telephone Encounter [...] Garrett MA April 18, 2024 2:00 PM [facility]03-10-2025 Miscellaneous Notes* Telephone Encounter - Diane [...] 18, 2024 2:00 PM documented in this encounterTrihealth Mcc[facility]03-06-2025 Note* Addendum Note - Bonny Henry APRN.CNP - 04/14/2024 12:13 PM ESTAddended by: BONNY HENRY on: 04/14/2024 12:13 PM Modules accepted: Orders [facility]03-06-2025 Miscellaneous Notes* Addendum Note - Bonny Henry APRN.CNP - 04/14/2024 12:13 PM ESTAddended by: BONNY HENRY on: 04/14/2024 12:13 PM Modules accepted: Orders documented in this encounterTrihealth Mcc[facility]03-06-2025 Instructions* Patient Instructions* Bonny Henry APRN.CNP [...] 4 weeks after surgery. 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 Do not [...] for pain) Encouraged patient to [facility] through [facility] for all non-urgent questions or concerns. If experiencing wound complications or have any questions or concerns during business hours call [phone] or after hours (after 5 pm or on the weekend) call [phone] and ask for the plastic surgery resident / fellow substation engineer for further instructions. If you have increasing [...] breathe or difficulty breathing documented in this encounterTrihealth M[facility]03-06-2025 History of Present illness Narrative* Bonny [...] 4 weeks after surgery. 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 Do not [...] questions or concerns during business hours call [phone] or after hours (after 5 pm or on the weekend) call [phone] and ask for the plastic surgery resident / fellow substation engineer for further instructions. If you have increasing [...] to clinic in 1 month Bonny Henry APRN.FATEMEH April 14, 2024 documented in this encounterTrihealth [facility]25 NoteHNO ID: [id number] Author: BONNY HENRY APRN.CNP Service: ? Author [...] 4 weeks after surgery. 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 Do not [...] silicone ingredient Encouraged [facility] for all non-urgent questions or concerns. If experiencing wound complications or hav (more content not included)... [facility]02-26-2025 Telephone encounter Note* Telephone Encounter - Alexia [...] further questions or concerns at this time. [facility]02-26-20[facility] Miscellaneous Notes* Telephone Encounter - Alexia [...] a nurse. Please return call to advise [phone] documented in this encounterTrihealth [facility] Telephone encounter Note * Telephone Encounter - Ladi Tierney - 04/05/2024 2:54 PM EST Patient had surgery on 03/14. Today patient was laying on her side when she started feeling very hotand got the shakes. Patient concerned this could be related to her surgery. Patient requesting to speak with Dr Sterlign or a nurse. Please return call to advise [phone] [facility]02-20-2025 Instructions* Patient Instructions* Bonny Henry APRN.WOODS MANAGER - 03/31/2024 2:00 PM EST -you may [...] 4 weeks after surgery. Do not perform employee communications coordinator such as laundry andvacuuming. Do not perform [...] for pain) Encouraged patient to [facility] for all non-urgent questions or concerns. If experiencing wound complications or have any questions or concerns during business hours call [phone] or after hours (after 5 pm or on the weekend) call [phone] and ask for the plastic surgery resident / fellow substation engineer for further instructions. If you have increasing [...] breathe or difficulty breathing documented in this encounterTrihealth M[facility]02[facility] History of Present illness Narrative* Bonny Henry APRN.CNP - 03/31/2024 1:20 PM EST Plastic Surgery [...] 4 weeks after surgery. Do not perform employee communications coordinator such as laundry andvacuuming. Do not perform [...] for pain) Encouraged [facility] to [facility] for all non-urgent questions or concerns. If experiencing wound complications or have any questions or concerns during business hours call [phone] or after hours (after 5 pm or on the weekend) call [phone] and ask for the plastic surgery resident / fellow substation engineer for further instructions. If you have increasing [...] APRN.CNP March 31, 2024 documented in this encounterTrihealth Mcc[facility]02-[facility]-2025 NoteHNO ID: [id number] Author: BONNY HENRY APRN.CNP Service: ? Author [...] 4 weeks after surgery. 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 Do not [...] with ibuprofen for (more content not included)... [facility]02-17-2025 Telephone encounter Note* Telephone Encounter - Familia [...] to come to ED immediately or call 9-11, patient understanding. Familia Cruz MD Plastic Surgery Resident (PGY-2) [id number] After 6 pm and on-weekends, please page [phone] (on-call plastic surgery) [facility] Work Phone: 1(950) 261-670602-17-2025 Miscellaneous Notes* Telephone Encounter - Familia Cruz [...] Familia Cruz MD Plastic Surgery Resident (PGY-2) [id number] After 6 pm and on-weekends, please page [phone] (on-call plastic surgery) documented in this encounterTrihealth Mcc[facility]02-17-2025 Telephone encounter Note * Telephone Encounter - Danielle Mandujano RN - 03/28/2024 6:30 PM EST Patient calling regarding puddle from drain site:. I conf her to Joleen the log stacker operator to page Plastic surgeon substation engineer for Dr. Javi Sterling. [facility]02-17[facility] Miscellaneous Notes* Telephone Encounter - Danielle Mandujano RN - 03/28/2024 6:30 PM EST Patient calling regarding puddle from drain site:. I conf her to Joleen the log stacker operator to page Plastic surgeon substation engineer for Dr. Javi Sterling. documented in this encounterTrihealth Mcc[facility]02-[facility] Telephone encounter Note * Telephone Encounter [...] [place] March 28, 2024 8:37 AM [facility]02-17-2025 Miscellaneous Notes* Telephone Encounter - Madelin [...] 28, 2024 8:37 AM documented in this encounterTrihealth Mcc[facility]02-15-2025 Instructions* Patient Instructions* Starr Ram APRN.CNP - 03/26/2024 10:59 AM EST Stretches Flexeril as ordered, do not use with ultram Tylenol as ordered Follow up with pcp Report immediately to ER for foot drop, bowel or bladder loss, numbness or tingling of legs/feet orany new or worsening concerns if unable to get into PMD documented in this encounterTrihealth Mcc[facility]02-15-2025 NoteHNO ID: [id number] Author: STARR RAM APRN.CNP Service: ? Author Type: Nurse Practitioner Type: Progress Notes Filed: 03/26/2024 11:01 Note Text: Subjective The history is provided by the patient. No banbury operator was used. RAJINDER Chong is a 43 [...] have confirmed and edited as necessary, the [facility] Review of Systems Constitutional: Negative for chills [...] detail warranting prompt ER evaluation. Starr Ram APR[facility]02[facility] History of Present illness Narrative* Starr Ram APRN.FATEMEH - 03/26/2024 10:41 AM EST Images from the original note were not included. Subjective The history is provided by the patient. No banbury operator was used. RAJINDER Chong is a 43 [...] have confirmed and edited as necessary, the [facility] Review of Systems Constitutional: Negative for chills [...] evaluation. Starr Ram APRN.CNP documented in this encounterTrihealth Mcc[facility]02-13-2025 Instructions* Patient Instructions* Bonny Henry APRN.CNP [...] 4 weeks after surgery. Do not perform employee communications coordinator such as laundry andvacuuming. Do not perform [...] questions or concerns during business hours call [phone] or after hours (after 5 pm or on the weekend) call [phone] and ask for the plastic surgery resident / fellow substation engineer for further instructions. If you have increasing [...] breathe or difficulty breathing documented in this encounterTrihealth Mcc[facility]02-13-20[facility] History of Present illness Narrative* Bonny Henry APRN.CNP - 03/24/2024 11:00 AM EST [...] days Pain: control is good with medication. 06/13. Pt is taking Ultram and tylenol Drainage [...] 4 weeks after surgery. Do not perform employee communications coordinator such as laundry andvacuuming. Do not perform [...] for pain) Encouraged [facility] to [facility] for all non-urgent questions or concerns. If experiencing wound complications or have any questions or concerns during business hours call [phone] or after hours (after 5 pm or on the weekend) call [phone] and ask for the plastic surgery resident / fellow substation engineer for further instructions. If you have increasing [...] APRN.CNP March 24, 2024 documented in this encounterTrihealth Mcc[facility]02-13-2025 NoteHNO ID: [id number] Author: BONNY HENRY APRN.FATEMEH Service: ? Author [...] 4 weeks after surgery. 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 Do not [...] BID until healed - (more content not included)...[facility]02-10-2025 Note* Addendum Note - Alexia Brian RN - 03/21/2024 1:14 PM ESTAddended by: ALEXIA BRIAN on: 03/21/2024 01:14 PM Modules accepted: Orders [facility]02-10-2025 Miscellaneous Notes* Addendum Note - Alexia [...] Please call to advise. documented in this encounterTrihealth Mcc[facility]02-10-2025 Telephone encounter Note * Telephone Encounter [...] further questions or concerns at this time [facility]02-10-2025 Telephone encounter Note* Telephone Encounter [...] further questions or concerns at this time [facility]02-10-2025 Telephone encounter Note* Telephone Encounter - Kishore BowmanRachna - 03/21/2024 11:06 AM EST Having really [...] this was normal. Please call to advise. [facility]02-03-2025 NoteHNO ID: [id number] Author: LIBIA STEEN SRNA Service: ? Author [...] March 14, 2024 TIME: 8:25 AM CSN: [id number] Health Institute01-30-2025 History of Present illness Narrative* Jae Sterling [...] positive with influenza A [facility]/28/20[facility]. HISTORIES PAST MEDICAL HISTORY [...] Past Histories independently gathered by the clinical clinical support specialist and the remaining scribed note [...] 17, 2024 2:13 PM documented in this encounterTrihealth Mccull[facility]01-30-2025 NoteHNO ID: [id number] Author: JAE STERLING MD Service: ? Author [...] positive with influenza A 02/28/2024 [facility]. HISTORIES PAST MEDICAL HISTORY [...] Ruiz I agree with (more content not included)...[facility]01-28-2025 Evaluation note* Diagnosis Onset Date Resolution Status Admit Date Cervical radiculopathy acute Valdemar wilcox 2024 10:31am Degenerative disc disease, cervical noneactive March 08 10:31am [facility] Work Phone: 1(981) 666-605701-22-2025 Telephone encounter Note* Telephone Encounter - Mary Moura APRN.CNP - 03/02/2024 9:46 AM EST FYI. Pt was seen for PACC and cleared but pt recently positive with influenza A 02/28/2024 seen in [facility] and prescribed Tamiflu. Pt is scheduled for Panniculectomy 03/14/2024 in [place]. Please advise if okay to proceed? [facility]01-22-2025 Miscellaneous Notes* Telephone Encounter - Mary Moura APRN.CNP - 03/02/2024 9:46 AM EST FYI. Pt was seen for PACC and cleared but pt recently positive with influenza A 02/28/2024 [facility]. Pt is scheduled for Panniculectomy 03/14/2024 in [place]. Please advise if okay to proceed? documented in this encounterTrihealth Mcc[facility]01-20-2025 Telephone encounter Note * Telephone Encounter - Liz Kim RN - 02/29/2024 4:22 PM EST Jenny from [employer] calling and states received Nebulizer supplies prescription but nodiagnosis code on it. Can we please resend script with diagnosis codes? New order pended with dx codes. Can be escripted. [facility]01-20-2025 Miscellaneous Notes* Telephone Encounter - Liz Kim RN - 02/29/2024 4:22 PM EST Jenny from [employer] calling and states received Nebulizer supplies prescription but nodiagnosis code on it. Can we please resend script with diagnosis codes? New order pended with dx codes. Can be escripted. documented in this encounterTrihealth Mcc[facility]01-19-2025 NoteHNO ID: [id number] Author: OCTAVIANO AYOUB PA Service: ? Author Type: Physician Dealership Manager Type: Progress Notes Filed: 02/28/2024 15:02 Note Text: This note was created using [employer]. Subjective Raul Chong is a 43 year [...] that would lula (more content not included)... [facility]01-19-2025 History of Present illness Narrative* Octaviano Ayoub PA - 02/28/2024 3:01 PM EST This note was created using [employer]. Subjective Raul Chong is a 43 year [...] ER evaluation. FRANCISCO Lal documented in this encounterTrihealth Mcc[facility]01-[facility]-2025 Telephone encounter Note * Telephone Encounter [...] 30 days. Protocols used: Influenza (Flu) - [id number]-YD [facility]01-19-2025 Miscellaneous Notes* Telephone Encounter - Bobbi [...] 30 days. Protocols used: Influenza (Flu) - Kbzbfpzz-ZEMDG-LB documented in this encounterTrihealth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 available. You Need to Schedule the Following Appointments Follow Up with MAIRA ESCAMILLA MD When:Within 2-4 days [facility] [address] [place] [address]- [phone] Allergies Topamax gabapentin predniSONE Medications Please ask your primary doctor or pharmacist before taking any other medication not listed, including over the counter drugs, herbal medications, vitamins and or supplements as they may interact withyour home medications. What How Much When Instructions [...] Lightheadedness Chest pain or rapid heart rate [phone] [employer]. [address] [place] [address]. All rights reserved. This information is not intended as a substitute for professional medical care. Always follow yourhealthcare professional's instructions. Additional Information VACCINATE! IT SAVES LIVES! Members of the community who have not yet received the COVID-19 vaccine and would like to receive it can visit one of [facility] vaccine clinics. There are many vaccine clinic locations within the [facility]. For locations and available times, please visit www.gettheshot.coronavirus.[place].gov/. It is important to note that some COVID mobile vaccine clinics are held outdoors and may be canceled in rainy or stormy conditions. To learn more about pediatric vaccinations (ages 5-11), we invite you to visit the [facility] webpage. https://www.[email or web address].org/pages/3295-Jifsq-Tavfmjrbple-Xalhiomlsk-Wlwsc-Wme stions.htmlTo learn more about the COVID-19 vaccine, we invite you to visit the CDC website for a list of frequently asked questions. https://www.cdc.gov/coronavirus/2019-ncov/vaccines/faq.html [facility] Patient Portal Access Instructions: Stay connected with your healthcare team and access your personal medical information anytime with the [facility] Patient Portal. If you would like a full copy of your medical records please contact the [facility] Medical Records Department Thursday through Thursday between 8a.m. and 4:30p.m. Please follow the directions below to access the portal: 1.Access the email account you provided upon registration to the [facility].2.Look for an invitation email from [facility].3.Open the email and access the invitation link: Accept Invitation to [facility]4.Fill in the required caldwell to create your account. Sign into [email or web address] with your username and password that you [...] you will allow to register on the [facility] Patient Portal for access to your information. You can also access the [facility] Patient Portal on the [employer] [place]. Simply click on Health Records under [email or web address] and then click on the [employer] logo. HOW TO SAFELY DISPOSE OF PRESCRIPTION [...] Call your local pharmacy or go to http://bit.ly/8D7Cs5z to find one close to you.3.Make use of household items: Use cat litter or old coffee grounds to dispose medications if other options arenot available. Mix your drugs with these household products, seal them in an airtight container andthrow it into the garbage. Call [facility]: [phone] to be sure your drugs can be [...] aware that I should contact my doctor. Patient/Sweat Box Attendant Signature: Date/Time: Relationship to Patient: Witness Name/Signature: Date/Time: [facility]07-22-2024 Note ORIGINAL EXAMINATION: 2 XRAY VIEWS OF [...] Sign Date: 08/31/2023 6:37:06 PM Ordering Provider: [facility]07-16-2024 History of Present illness Narrative* Wanda Campos RT(R) - 08/25/2023 3:00 PM EDT Radiology [...] PATIENT PRESENTS WITH AN IMPLANTABLE OR ATTACHED SCOUT: No RADIOLOGY DEPARTMENT: General X-ray: Exam(s) Completed: Chest X-Ray PERIPHERAL IV DATA: Not applicable SIGNED BY: RT Jerman(R) August 25, 2023 2:55 PM documented in this encounterTrihealth Mcc[facility]07-16-2024 History of Present illness Narrative* Maira Escamilla MD - 08/25/2023 2:00 PM EDT Patient presents with: Transition Of Care HPI: Patient presents today for office visit for HOSPITAL FOLLOW UP: Reason for visit: Chest pain/headaches. Which facility: [facility] Date of visit: 08/19-08/21/23 Diagnosis: Acute [...] TABLET Maira Escamilla MD documented in this encounterTrihealth Mccull[facility]07-13-2024 Telephone encounter Note * Telephone Encounter - Ly Campa LPN - 08/22/2023 9:30 AM EDT Patient aware that Dr. Escamilla did ask that if symptoms to worsen she is to go back to ER. [facility]07-13-2024 Miscellaneous Notes* Telephone Encounter - Ly Campa LPN - 08/22/2023 9:30 AM EDT Patient aware that Dr. Escamilla did ask that if symptoms to worsen she is to go back to ER. * Telephone Encounter - Ly Campa LPN - 08/22/2023 8:14 AM EDT Patient was admitted to [facility] on 08/20/23 for chest pain and [...] Please review and advise. documented in this encounterTrihealth Mccull[facility]07-13-2024 Telephone encounter Note * Telephone Encounter - Ly Campa LPN - 08/22/2023 8:14 AM EDT Patient was admitted to [facility] on 08/20/23 for chest pain and [...] else to recommend. Please review and advise. [facility]07-10-2024 Telephone encounter Note* Telephone Encounter - Td Stiles LPN - 08/19/2023 12:04 PM EDT Pt scheduled with Yanet Marie on 08/23. Td Stiles LPN [facility]07-10-2024 Miscellaneous Notes* Telephone Encounter - Td Stiles LPN - 08/19/2023 12:04 PM EDT Pt scheduled with Yanet Marie on 08/23. Td Stiles LPN * Telephone Encounter - Td Stiles [...] 30 days. *Pt no showed appt 08/03/23. MC message to pt advising of need for appt. Td Stiles LPN August 19, 2023 11:03 AM documented in this encounterTrihealth Mcc[facility]07-10-2024 Telephone encounter Note * Telephone Encounter [...] 30 days. *Pt no showed appt 08/03/23. MC message to pt advising of need for appt. Td Stiles LPN August 19, 2023 11:03 AM [facility]06-12-2024 History of Present illness Narrative* Viviana Marie APRN.WOODS MANAGER - 07/22/2023 4:16 PM EDT Chief Complaint Patient presents with: Telemedicine I have communicated my name and active licensure. The patient's identity and physical location wereverified at the time of this visit. Either the patient or their legal medical customer service representative has been informed of the risks [...] agrees to the visit: Yes Patient Location: [facility] Raul Chong is a 42 year old [...] Yes Comment: rarely Drug use: No EXAM: [facility] 04/28/2023 (Approximate) Limited exam as visit was [...] Vaccine(1 - Tdap) due on 06/29/2013 Covid-19 Vaccine( season) due on 10/10/2022 Behavioral Health Screening [...] : 40.64 kg/m 06/27/22 : 41.79 kg/m 06/11/22 : 41.20 kg/m Last 5 Encounter Wt [...] as needed for worsening/no improvement. Viviana Marie APRN.WOODS MANAGER documented in this encounterTrihealth Mccull[facility]04-01-2024 Miscellaneous Notes* Telephone Encounter - Maira Escamilla MD - 05/11/2023 12:06 PM EDT Due for check up. * Telephone Encounter - Anna Myles LPN - 05/11/2023 11:44 AM EDT [...] you. Anna Myles LPN. documented in this encounterTrihealth Mccull[facility]03-25-2024 History of Present illness Narrative* BriekathiaAlison Joshua, DO - 05/04/2023 8:44 AM EDT BMI OM PostOp Clinic Note May 04, 2023 Index Surgery Date of Surgery: 10/01/2021 Surgeon: Naresh Schmitz MD Surgical Procedure: LAPAROSCOPIC GASTRIC RESTRICTIVE SURG W/ BYPASS & JACOB-EN-Y 150CM OR LESS Pre-surgical weight: 178.7 kg (394 lb) Total weight loss: 74.8 kg (164 lb 15.1 oz) [place] weight: 76.8 kg (169 lb 5 oz) [...] (GERD) Morbid obesity due to excess calories ([facility]) SVT (supraventricular tachycardia) ([facility]) Palpitations Chest pain SOB (shortness of breath) Cervical radiculopathy Class 3 severe obesity due to excess calories without serious comorbidity with body mass index (BMI) of 50.0 to 59.9 in adult ([facility]) Mild intermittent asthma Gastroesophageal [...] daily intake of protein., Recommended using an Owyn 32 g protein drink as a meal [...] the date of the service which included xzvd-kn-joyn patient care, completing clinical documentation, obtaining and/or reviewing separately obtained history, performing a medically appropriate examination, counseling and educating the patient/family/caregiver, and ordering medications, tests, or procedures. Alison Jules DO documented in this encounterTrihealth Mccull[facility]02-12-2024 Miscellaneous Notes* Telephone Encounter - Anna [...] you. Anna Myles LPN. documented in this encounterTrihealth Mccullough-[facility]01-25-2024 Discharge summary Author Jose Salgado [facility] March 05, 2023 4:40pm Note Date/Time March 05, 2023 4 :40pm [facility] Medical Records Department [address] [place] [address] Emergency Department Summary 03/05/23 MR#: [id number] Acct: [id number] Name: RAUL FLEMING DIANNA Rep #:[id number] : 1980 42 From: Jose Salgado MD [...] Prior similar symptoms: No Recent Illness/Hospitalization: [facility] Medical History Arthritis GERD (gastroesophageal reflux disease) [...] your Primary Care Provider. Call [facility] ([phone]) or report to the closest Emergency Room. Call 911 if necessary. 03/05/23 1640 <Electronically signed by Jose Salgado MD> Cosigner Signature (if applicable): CC: Dr. Maira Escamilla MD ~ Signed [facility] Work Phone: [phone] 660-563308-25-2023 Instructions* Patient Instructions* Anthony Spear APRN.WOODS MANAGER - 10/03/2022 1:17 PM EDT RESPIRATORY INFECTION [...] spread by coughs, sneezes, anddirect contact, especially hwes-kn-anky. A respiratory tract infection usually clears up [...] 102 F (39 C). documented in this encounterTrihealth [facility]08-25-[facility]23 History of Present illness Narrative* Anthony Spear APRN.FATEMEH - 10/03/2022 1:04 PM EDT Subjective HPI [...] reviewed. .Patient presents with: Cough: Chest congestion león palumbo [facility] 09/30 PAST MEDICAL HISTORY Diagnosis Date [...] of care. This note was generated using SGN (Social Gaming Network) software. It may contain errors in wording, punctuation, or spelling. Anthony Spear APRN.WOODS MANAGER documented in this encounterTrihealth Mccull[facility]08-22-2023 Miscellaneous Notes* Telephone Encounter - Diane Garrett Ma - 09/30/2022 2:26 PM EDT See nurse triage * Telephone Encounter - Maira Escamilla MD - 09/30/2022 12:14 PM EDT Can we triage this. If not doing well, may need re eval here or er * Telephone Encounter - KimaniShaileshsebastian Ruiz LPN - 09/30/2022 10:49 AM EDT Pt [...] review chart and send appropriate prescriptions to [facility]. 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 Marietta Harman LPN documented in this encounterTrihealth Mccull[facility]08-22-2023 Discharge summary Author Abhishek Crowder [facility] September 30, 2022 4:52pm Note Date/Time September 30, 2022 4: 02pm [facility] Medical Records Department [address] [place] [id number] Emergency Department Summary 09/30/22 MR#: [id number] Acct: [id number] Name: RAUL FLEMING Rep #:[id number] : 1980 42 From: Abhishek Crowder MD [...] chills she continues to have a cough. [facility] Medical History Arthritis GERD (gastroesophageal reflux disease) [...] your Primary Care Provider. Call [facility] ([phone]) or report to the closest Emergency Room. Call 911 if necessary. 09/30/22 1652 <Electronically signed by Abhishek Crowder MD> Cosigner Signature (if applicable): CC: Dr. Maira Escamilla MD ~ Signed [facility] Work Phone: 1(684) 488-951908-21-2023 History of Present illness Narrative* Suma Luque, KYLE.WOODS MANAGER - 2022 12:00 PM EDT Subjective Cough [...] illness Suma Luque APRN.CNP documented in this encounterTrihealth Mcc[facility]08-21-2023 Instructions* Patient Instructions* Suma Luque APRN.CNP [...] days of proper treatment. documented in this encounterTrihealth Mcc[facility]05-08-2023 Miscellaneous Notes* Telephone Encounter - Maira Escamilla MD - 06/16/2022 5:55 PM EDT Lasb ok except sugar was mildly up. Recheck a1c documented in this encounterTrihealth Mcc[facility]05-03-2023 History of Present illness Narrative* Maira Escamilla MD - 06/11/2022 11:42 AM EDT Patient presents with: Headache Dizziness HPI: Patient presents today for office visit for dizziness. Yesterday after she got off work she decided to have Sojern drink. Got a headache and didn't feelwell [...] see her back this year. No syncope. [place] like she could have during her spell. [...] six weeks and prn. documented in this encounterTrihealth Mccull[facility]04-27-2023 History of Present illness Narrative* Maira [...] visit. Either the patient or their legal medical customer service representative has been informed of the risks and benefits of -- and alternatives to -- treatment through a remote evaluation andconsents to proceed with the evaluation remotely. Had been on a cruise. Came back to [place] and started with allergy symptoms. Had developed [...] with more than 50% of the total zsrg-sj-bdtr time of the visit in counseling / coordination of care. documented in this encounterTrihealth Mcc[facility]04-13-2023 History of Present illness Narrative* Maira [...] TABLET Maira Escamilla MD documented in this encounterTrihealth Mcc[facility]04-12-2023 Miscellaneous Notes* Telephone Encounter - Anna [...] you. Anna Myles LPN documented in this encounterTrihealth Mcc[facility]04-10-2023 Miscellaneous Notes* Telephone Encounter - Krystian Meredith RN - 05/19/2022 1:48 PM EDT The following approved medications have been transmitted electronically. Requested Prescriptions Signed Prescriptions Disp Refills norethindrone (AYGESTIN) 5 mg tablet 14 tablet 0 Sig: Take 1 tablet by mouth twice daily for 7 days. Authorizing Provider: MAKEDA SMITH Pharmacy Information Pharmacy Address [phone] [place] [address] Krystian Meredith RN * Telephone Encounter - Makeda Smith APRN.WOODS MANAGER - 05/19/2022 12:57 PM EDT Please let [...] COIP. Patient would like med called into [facility] documented in this encounterTrihealth Mcc[facility]03-03-2023 History of Present illness Narrative* Alison Jules, - 04/11/2022 11:45 AM EST [facility] [...] 44.48 kg/(m^2) Total weight loss: 100 lbs [place] weight: 76.8 kg (169 lb 5 oz) Excess weight: 101.9 kg (224 lb 11 oz) % of excess body weight lost: 178.7 kg (394 lb) (44.44 % of excess weight loss) COMPLICATIONS SINCE LAST VISIT?: NONE INTERVAL HISTORY Here for postop visit, 6 months. DIET INTAKE: tolerates Phase V diet, recently seen by the sales management intern, recommended increasing the daily intake of protein, supplementing with protein powder or a protein drink DAILY SUPPLEMENTS: Yes Calcium: calcium soft chews three times a day. Multivitamin & Minerals: bariatric iTB [employer] [facility] + 45 mg iron daily Iron [...] N/A Alison Jules DO documented in this encounterTrihealth Mcc[facility]02-22-2023 Miscellaneous Notes* Telephone Encounter - Concha Tiffanie RAMIREZ - 04/02/2022 12:03 PM EST Patient has been identified by name and date of : Yes Requested Prescriptions Pending Prescriptions Disp Refills loratadine (CLARITIN) 10 mg tablet 90 tablet 3 Sig: Take 1 tablet by mouth once daily as needed. RX INSTRUCTIONS: Patient aware RX will be sent to pharmacy. No need to notify patient. Concha Moreno LPN documented in this encounterTrihealth Mccull[facility]02-20-2023 History of Present illness Narrative* Makeda Smith, KYLE.WOODS MANAGER - 03/31/2022 1:56 PM EST Raul Fleming [...] L2 SAB0 IAB0 Ectopic0 Multiple0 Live Births0 Senior Human Resources Representative History LMP: 03/15/2022, Having periods Age at Menarche: Age at First : Age at Menopause: Senior Human Resources Representative History Comments: Sexual Activity: Yes; Male Contraception: [...] Smokeless tobacco: Never Tobacco comments: quit in 4/06 Vaping Use Vaping Use: Never used Substance [...] Level: 3 - Low documented in this encounterTrihealth Mcc[facility]01-28-2023 Miscellaneous Notes* Letter - Mammography Coordinator - 03/08/2022 8:58 AM EST March 10, 2022 PID: [id number] Raul AMarivel Fleming [address] [place] [id number] Dear Marivel Fleming, We are pleased to inform you [...] report will be kept on file at [facility] as part of your permanent medical record and are available for your continuing care. Thank you for allowing us to help in meeting your health care needs. Sincerely, Dr. Blackburn Interpreting Radiologist [facility] (Normal over 40) documented in this encounterTrihealth Mccull[facility]01-27-2023 History of Present illness Narrative* Prabha Chavez, RT(R) - 03/07/2022 9:50 AM EST Radiology [...] 07, 2022 9:51 AM documented in this encounterTrihealth Mcc[facility]01-14-2023 History of Present illness Narrative* Jacqueline Botson APRN.[facility] - 02/22/2022 12:46 PM EST CC: Patient [...] plan. Jacqueline Boston APRN.FATEMEH documented in this encounterTrihealth Mcc[facility]12-12-2022 Miscellaneous Notes* Telephone Encounter - Hussein Morel MD - 01/20/2022 4:51 PM EST Letter done in [facility] Hussein Morel MD * Telephone Encounter - [...] Chart. Roxie Torres RN documented in this encounterTrihealth Mcc[facility]12-10-2022 History of Present illness Narrative* Hussein Morel MD - 01/18/2022 11:25 AM EST Nirmatrelvir/Ritonavir (Paxlovid) Eligibility and Patient Discussion [facility] Formulary Restriction Criteria: Adult outpatients 18 [...] prn Hussein Morel MD documented in this encounterTrihealth Mcc[facility]12-10-2022 Instructions* Patient Instructions* Hussein Morel MD - 01/18/2022 11:25 AM EST FACT SHEET FOR PATIENTS, PARENTS, AND CAREGIVERS EMERGENCY USE AUTHORIZATION (EUA) OF PAXLOVID FOR CORONAVIRUS DISEASE 2019 (COVID-19) You are being given this Fact Sheet because your healthcare provider believes it is necessary to provide you with PAXLOVID for the treatment of tszf-lt-kusnmcml coronavirus disease (COVID-19) caused by the SARS-CoV-2 [...] virus. COVID-19 illnesses have ranged from very nfrm-ev-nlsiun, including illness resulting in . While information [...] is an investigational medicine used to treat bqud-zw-zvsupzpt COVID-19 in adults and children [12 years [...] of using PAXLOVID to treat people with ixei-cn-jwiwdbgh COVID-19. The FDA has authorized the emergency use of PAXLOVID for the treatment of mrrx-we-ervubvwu COVID-19in adults and children [12 years of [...] the medicines you take, including prescription and jode-ghj-hkbhpsm medicines, vitamins, and herbal supplements. Some medicines [...] oral midazolam Apalutamide Carbamazepine, phenobarbital, phenytoin Rifampin [place] s Wort (hypericum perforatum) Taking PAXLOVID with [...] (remdesivir) is FDA-approved for the treatment of bkmg-rr-bxhamvcz COVID-19 in certain adults and children. Talk with your doctor to see if Veklury is appropriate for you. Like PAXLOVID, FDA may also allow for the emergency use of other medicines to treat people with COVID-19. Go to https://www.fda.gov/somelwcbs-lhvvkcajnuxq-jrtxlyftetq/jih-hpzll-fhdzjouhrb-and- policy-framework/eahmdrdmd-vgg-qkolwwnmhnaqy for information on the emergency use of [...] if I am or ? There is nozzle and sleeve worker treating women or mothers with PAXLOVID. For [...] not go away. Report side effects to [employer] at www.fda.gov/medEZChiptch or call 7-110-OEJ0397 or you can reportside effects to [employer]. at the contact information provided below. Website Fax number Telephone number [employer] How should I store PAXLOVID? Store PAXLOVID [...] (EUA). The EUA is supported by a [place] of Health and Human Service (HHS) declaration that circumstances exist to justify the emergency use of drugs and biological productsduring the COVID-19 pandemic. PAXLOVID for the treatment of nkgu-nb-cwtmxbfo COVID-19 in adults and children [12 years [...] telephone number provided below. Website Telephone number www.UMADD75jqsgQm.[employer] (0-300-D43-PMZQ) You can also go to www.Lucky Pai.[employer] or call for more information. Pfizer Distributed by [employer] [place] [employer] [place] [address] LAB-1494-2.1 Revised: 26 April 2021 documented in this encounterTrihealth Mcc[facility]12-09-2022 Miscellaneous Notes* Telephone Encounter - Hussein Morel MD - 01/17/2022 5:25 PM EST Noted Hussein Morel MD * Telephone Encounter - Amie Cardenas RN - 01/17/2022 4:21 PM EST Patient had trouble with insurance with [facility]. Scheduled patient with Dr. Morel tomorrow [...] sent to her PCP. documented in this encounterTrihealth Mcc[facility]12-02-2022 History of Present illness Narrative* Elise Butterfield RD - 01/10/2022 2:35 PM EST Patient did not attend today's appointment. Elise Butterfield RD documented in this encounterTrihealth Mccull[facility]11-28-2022 Miscellaneous Notes* Telephone Encounter - Lianne [...] Telephone Encounter. BULL Aviles documented in this encounterTrihealth Mccull[facility]11-01-2022 Miscellaneous Notes* Telephone Encounter - Td [...] they have that available. Viviana Marie APRN.FATEMEH * Telephone Encounter - Bhavya Mcdonald RN - 12/10/2021 12:44 PM EDT Heber, a pharmacy intake coordinator at [facility] calling for clarification of recent script received today for diphenhydramine, hydrocortisone lidocaine, nystatin oral medication. She states they do not have hydrocortisone lidocaine. Also asking for clarification on listed amounts in relation to ingredients: 180 mL: 120m mL: 30 mL. Please contact pharmacy to discuss. Thank you. documented in this encounterTrihealth Mcc[facility]11-01-2022 Instructions* Patient Instructions* Viviana Marie APRN.CNP - 12/10/2021 12:11 PM EDT Start the magic mouthwash as needed. Start the valtrex -- 4 tablets by mouth twice daily X 1 day -- then start 1 tablet by mouth daily thereafter. Triamcinolone ointment to the lip twice daily for up to two weeks. Let me know if no better/worsening. documented in this encounterTrihealth Mcc[facility]11-01-2022 History of Present illness Narrative* Viviana Marie APRN.CNP - 12/10/2021 11:49 AM EDT This is [...] improvement. Viviana Marie APRN.FATEMEH documented in this encounterTrihealth Mcc[facility]10-10-2022 Miscellaneous Notes* Telephone Encounter - M Edison Ponce PA-C - 11/18/2021 4:27 PM EDT [...] w/5. Michelle Ashby Ma documented in this encounterTrihealth M[facility]2022 Miscellaneous Notes* Telephone Encounter - Lianne [...] further needs or concerns. documented in this encounterTrihealth Mccull[facility]09-21-2022 History of Present illness Narrative* Milo [...] to excess calories (HCC) SVT (supraventricular tachycardia) ([facility]) Palpitations Chest pain SOB [...] resolved problems to display. documented in this encounterTrihealth Mccull[facility]09-17-2022 Miscellaneous Notes* Telephone Encounter - Akshat Pinto MD - 10/26/2021 9:03 PM EDT Images from the original note were not included. 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 She underwent a RYGB with Dr. Schmitz on 10/01. She had dehydration recently and received IV hydration on 9/14. Today she is concerned about her risk [...] urine, and lightheadedness. Akshat Pinto MD PhD [facility] Clinical Fellow Advanced Laparoscopic Surgery and Flexible Surgical Endoscopy [facility] [address] [place] [address] [email or web address] documented in this encounterTrihealth Mccull[facility]09-14-2022 Nurse Note* Savana Shultz RN - 10/23/2021 1:35 PM EDT Raul Fleming Reason for therapy: Dehydration, and Banana bag Ordering Physician: Dr. Schmitz Supervising/Billing Physician: Dr. DERRICK Morgan Medications administered: [id number]/N6047la x1, and banana bag 1000cc x 1 (See MAR and flowsheets for rates) Start: 1015AM / Stop: [id number] Infusion tolerated well: Yes IV: See avatar Vital Signs: See Flow sheets Additional Notes if applicable: The pt refused Zofran, and Protonix d/t no nausea, and she takes protonix pills p.o q daily. M61 coodinator RN was notified * Savana Shultz RN [...] No need for follow-up documented in this encounterTrihealth Mccull[facility]09-13-2022 Miscellaneous Notes* Telephone Encounter - Gabrielle Bran RN - 10/22/2021 1:50 PM EDT I cannot add patient to the infusion schedule for tomorrow 10/23 at 10am without the medication orders. Can you please place the orders? Thanks, Gabrielle Bran RN documented in this encounterTrihealth Mccull[facility]09-13-2022 Miscellaneous Notes* Telephone Encounter - Alexa Moura - 10/22/2021 10:15 AM EDT [facility] can not see this patient as it is out of territory, we do not travel to [place]. Alexa Moura * Telephone Encounter - Alexa Moura - 10/22/2021 10:13 AM EDT Transitional Care Program - Intake Template - for interface Date Referral Received: 10/22/2021 Referral Source: CC Physician office TC Program: UD - 4C Hospital Discharge Date: n/a TCM RN Name: n/a Date of : 1980 Age: [age] year old PCP: Maira Escamilla MD Visit address from [facility]: [address] [place] [address] Name of Physician who gave the order: DIONICIO FAITH Other services ordered: None Primary Insurance Company: Payor: [employer] [employer] / Plan: [employer]ICA[employer] / ProductType: Medicaid / Primary Insurance ID Number: [id number] documented in this encounterTrihealth Mccull[facility]09-12-2022 Miscellaneous Notes* Telephone Encounter - Lianne [...] Denies fever,pain, nausea, vomit. 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 Confirmed 10/23/21 11593 appt. documented in this encounterTrihealth Mccullough-[facility]09-09-2022 History of Present illness Narrative* Rossy Baker, CYNDI - 10/18/2021 9:30 AM EDT This visit [...] loss (average 6-9% at 1 month) Blog: [email or web address] The [facility] [place] [facility] has 2 virtual support group meetings: This is the Webex link with meeting number that will be used for all of the THURSDAY virtual support groups this year, on the Thursday of each month 5:30-6:30PM Join from the meeting link [email or web address] Join by meeting number Meeting number (access code): [phone] Meeting password: [email or web address] The schedule with dates, times, topics, and facilitators can be found here: [email or web address] This is the [employer] link with meeting number that will be used for the Open Discussion (Food for Thought) support group on the Thursday of each month 5:30-6:30PM Join from the meeting link [email or web address] Join by meeting number Meeting number (access code): [phone] Meeting password: [email or web address] Hope to see you there! Nutrition Monitoring & Evaluation: Advance diet to phase 3 by next visit Criteria: patient recall Need for Follow up: 1 month post op Appointment Start Time: 9:30 AM Appointment End Time: 10:30 AM Time Spent on Consult: 60 minutes - Group Rossy Baker MS,RD,CSOWM,LD documented in this encounterTrihealth Mccull[facility]08-31-2022 History of Present illness Narrative* Dionicio [...] (GERD) Morbid obesity due to excess calories ([facility]) SVT (supraventricular tachycardia) ([facility]) Palpitations Chest pain SOB (shortness of breath) Cervical radiculopathy Class 3 severe obesity due to excess calories without serious comorbidity with body mass index (BMI) of 50.0 to 59.9 in adult ([facility]) Mild intermittent asthma Gastroesophageal [...] & Bariatric Surgery Fellow [facility] [place] [facility] documented in this encounterTrihealth Mccull[facility]08-31-2022 Miscellaneous Notes* Telephone Encounter - Lianne Welch RN - 10/09/2021 2:14 PM EDT Patient reports redness and itching present around all lap sites on abdomen. May use cold compress and hydrocortisone cream around glue sites. Confirmed appt with surgical team this afternoon. documented in this encounterTrihealth Mccull[facility]08-26-2022 Miscellaneous Notes* Telephone Encounter - Lianne [...] has any further needs. documented in this encounterTrihealth Mccullough-[facility]08-26-2022 Miscellaneous Notes* Telephone Encounter - Lianne [...] MD to resend electronic script to [facility] so patient may begin Lovenox today. Patient verbalized understanding. CPAP USE: N/A Remind patient of post op appt. Reminded patient of how to reach [facility] or their surgeons office. Patient reminded to seek medical attention if they develop chest pain, a sudden onset of shortness of breath or persistent pain in the calf of their legs - BEST TO ALWAYS present to [facility] hospital where you had your surgery Patient verbalized understanding of all advice and instructions given. COVID-19 Symptoms: none . Lianne Welch RN documented in this encounterTrihealth Mccull[facility]08-26-2022 History of Present illness Narrative* Esther Ya RN - 10/04/2021 9:30 AM EDT TCM Home Visit Referral Source of Stratification: [facility] Admission Status: Discharged Readmission Risk Score: [...] PROGRAM Provider Action/FYI: TCM Initial Hospital Discharge [facility] on 10-03-21. PCP Dr Escamilla - saida leyva owe f/u appoitment RD Olivia/Gen Surg 10-18-21 Patient states she is doing okay, just really sore Denies chest pain, sob, fever or chill Lap sites PAYMENT REP, skin intact, keep clean and dry, no S/S of infection Rates pain as 4 while still, increases to 6 with activity Taking Oxycodone for pain, Tolerating fluids well, going to try a protein shake today Encouraged patient to Review: Discharge Instructions for Bariatric Surgery Reviewed medications - on phone with Pharmacy to find out about her Lovenox SUMMARY: Pt discharged from [facility] on 10-03-21. Admitted for: Obesity, LAPAROSCOPIC GASTRIC RESTRICTIVE SURG W/ BYPASS & JACOB-EN-Y Contact made with patient: Yes Hi my name is Esther Ya RN and I am calling from the [facility] on behalf of your PCP,Maira Escamilla [...] like to speak with a social work team guide to help give you support for any [...] I will send your request to a nursing scheduler who will contact and assist you [...] the way if possible). Esther Ya RN Collections Director documented in this encounterTrihealth Mccull[facility]08-16-2022 Miscellaneous Notes* Telephone Encounter - Lianne [...] the 64 ounces fluids. documented in this encounterTrihealth Mccull[facility]08-10-2022 Instructions* Patient Instructions* Mary Moura APRN.WOODS MANAGER - 09/18/2021 11:42 AM EDT PATIENT PREOPERATIVE INSTRUCTIONS Naresh Schmitz MD has scheduled you for your procedure at this surgery center: [facility] [place] Scheduling Office: [phone] --[address] [place] [address]. Please read below carefully for your personalized [...] Procedures: - YOU MUST HAVE A RESPONSIBLE INDUSTRIAL SALES REPRESENTATIVE TAKE YOU HOME. A LUBE ATTENDANT OR ELECTRICIAN CONSTRUCTOR SUPERVISOR CANNOT BE MADE A RESPONSIBLE INDUSTRIAL SALES REPRESENTATIVE. - We recommend that a responsible person [...] call the Thursday before. Your surgeon s nursing scheduler will tell you what time to call the office. - If you have not reached the departmental nursing scheduler by 5 P.M., call [phone] after 5 P.M. the day before your surgery. Please be aware that emergency situations arise, which may delay or change your surgical time. If this happens, we will notify you as soon as possible and regret any inconvenience. If you already have an Advance Directive, please fax a copy to [phone] or email to for it to be [...] day. Mary Moura APRN.CNP documented in this encounterTrihealth Mccull[facility]08-10-2022 History and physical note * Mary [...] Adult (Hcc) Cervical Radiculopathy Svt (Supraventricular Tachycardia) ([facility]) Palpitations Chest Pain Sob (Shortness of Breath) Degenerative Joint Disease Involving Multiple Joints Limited Mobility History of Gastroesophageal Reflux (Gerd) Morbid Obesity Due to Excess Calories ([facility]) COVID-19 Immunization Status Overdue - COVID-19 VACCINE [...] her obesity and related complications to the [facility] [place]. Initial program weight: 368 lbs Last visit [...] meal. Exercise: She has been using an [employer] program Stress: Stable - lost her car in February. Struggling with transportation Sleep: no insomnia, snoring, or SDB. REVIEW OF SYSTEMS: General: No weight loss, malaise or fevers. Neurological: Positive for: headaches (+migraines, rx as needed, rarely used). Negative for: cerebral palsy, COKE BURNER tumor, multiple sclerosis, Parkinson's disease, peripheral neuropathy, [...] > 1 time per night or hematuria. MATERIAL DISTRIBUTOR: Negative for abnormal vaginal bleeding, abnormal vaginal [...] 364 QTC Calculation (Bazett) 409 Calculated P [place] 20 Calculated R [place] -15 Calculated T [place] 1 Impression NORMAL SINUS RHYTHM LEFT VENTRICULAR HYPERTROPHY ABNORMAL ECG Recent Results (from the past 13710 hour(s)) ECHO Collection Time: 02/13/20 8:10 AM [...] smoker (vague hx given) SVT (supraventricular tachycardia) (HCC) Assessment: hx, thought [...] (BMI) of 50.0 to 59.9 in adult ([facility]) Assessment: Body mass index is 58.18 kg/m [...] or younger Non-male patient STOP-Bang Score: 3 [id number] Score: Age: <65 Sex: female CHF history: No Hypertension history: No Stroke/TIA/thromboembolism history: No Vascular disease history: No Diabetes history: No [id number] Score: 1 ARISCAT Score: Age: <=50 Preoperative [...] and consent discussed: yes. Patient / Responsible Libertarian agrees to proceed: yes Patient / Surrogate [...] 11:41 AM PAGER/CONTACT #: documented in this encounterTrihealth [facility]08-10-2022 Miscellaneous Notes* Telephone Encounter - Ly Campa LPN - 09/18/2021 8:11 AM EDT Last office visit 08/06/2021. Patient phones requesting refills as follows: Requested Prescriptions Pending Prescriptions Disp Refills omeprazole (PRILOSEC) 40 mg capsule 60 capsule 5 Sig: Take 1 capsule by mouth twice daily. Please review and advise. Ly Campa LPN documented in this encounterTrihealth Mccull[facility]08-09-2022 Miscellaneous Notes* Telephone Encounter - Lianne [...] work today. Will follow. documented in this encounterTrihealth Mcc[facility]08-05-2022 Miscellaneous Notes* Telephone Encounter - Lianne [...] Tylenol. Lianne Welch RN documented in this encounterTrihealth Mcc[facility]07-26-2022 Miscellaneous Notes* Telephone Encounter - Suma Monsalve RN - 09/03/2021 10:35 AM EDT [facility] SPECIALTY CARE COORDINATION SURGERY APPROVAL CALL Received e-mail confirmation of insurance approval for bariatric surgery.Pre- operative call placed to the patient, this RN spoke with patient and agreed upon a surgery date of October 01 2021. Surgical episode request sent to [facility] surgery scheduling. Creatinine level 0.66 Patient instructed to start pre-op 800 calorie total protein liquid diet high protein Slimfast (4.5) or glucose controlled Boost (4.5) daily beginning 2 weeks prior to surgery. - Stop all ASA and NSAID products, [place] 3 fish oil, herbal products such as ginko etc. Stop vitamins EXCEPT B COMPLEX- take this up to the day before surgery - Medication List reviewed. Patient confirmed she is stopping nabumetone and is not taking naproxen. - Patient denies use of estrogen products . - No VICKY - Pt instructed to fax FMLA forms to [phone] and allow 7-10 days for completion. Linda video assigned and Pt will view Drop video during pre-op nurse visit. All questions and concerns addressed and patient verbalized understanding. - Patient case reviewed. All nutrition appointments completed, psychology clearance obtained, surgeon visit and procedure type verified, medical optimization obtained and all testing complete. Con ABO to be ordered Suma Monsalve RN documented in this encounterTrihealth Mccull[facility]07-20-2022 History of Present illness Narrative* Gorge Sterling MD - 08/28/2021 10:09 PM EDT Consultation requested by Viviana Marie APRN.CNP for an opinion regarding facial rash. My final recommendations will be communicated back to the requesting physician by way of shared Medical record in [facility]. Raul Fleming is a 40 year old White female with w/o keratosis pilaris without history of melanoma or non-melanoma skin cancer who presents for initial consultation. She is referred by [facility] concerned about a facial rash beginning ~06/29/21. [...] - Dr Grupo Shane(06/13/15) Referred by: Viviana Marie(BURN OUT TENDER LACE.WOODS MANAGER) DERMATOLOGY HISTORY: Personal Hx of skin cancer: [...] visit in 8 weeks documented in this encounterTrihealth Mccull[facility]07-19-2022 Nurse Note* Maeve Arias Ma - 08/27/2021 3:10 PM EDT Pt being seen for facial rash. documented in this encounterTrihealth Mcc[facility]07-06-2022 Miscellaneous Notes* Telephone Encounter - Td [...] advise. Td Stiles LPN documented in this encounterTrihealth Mccull[facility]06-29-2022 History of Present illness Narrative* Lianne Welch RN - 08/07/2021 4:58 PM EDT Pseudo date submission for bariatric surgery insurance pre-determination per Navigation team request. documented in this encounterTrihealth Mccull[facility]06-28-2022 Instructions* Patient Instructions* Norma Nolan APRN.CNP - 08/06/2021 11:53 AM EDT Please arrange follow up with derm. You can also reach out to Dr. Diony Brown at [place] [phone] documented in this encounterTrihealth Mccull[facility]06-28-2022 History of Present illness Narrative* Norma Nolan APRN.CNP - 08/06/2021 11:36 AM EDT This note was created using SmartShoot. Subjective Raul Fleming is a 40 year old female. 40 year old female with PMH SVT, GERD, and psoriasis presents with rash. Acute onset of symptoms was mid June Red itchy rash to face Endorses it occurred after being ill, specifically mesenteric adenitis. She was seen in [facility] end of June And was [...] history is provided by the patient. No banbury operator was used. Rash This is a new [...] TO DERMATOLOGY-appointment made at discharge Norma Nolan APRN.CNP documented in this encounterTrihealth Mccull[facility]06-21-2022 Instructions* Patient Instructions* Daniel Benitez RD - 07/30/2021 9:24 AM EDT Nutrition Action Plan Please call [phone], option 5. Leave a message for the [...] 2 weeks before surgery documented in this encounterTrihealth Mcc[facility]06-21-2022 History of Present illness Narrative* Daniel Benitez RD - 07/30/2021 8:45 AM EDT [facility] Nutrition Therapy: Virtual Consult Re-assessment This [...] Activity: cardio and body weight exercise on Volar Video system 3 days a week for 60 [...] with water as primary beverage. Patient completes [id number]+ minutes physical with a combination of cardio [...] guidelines for weight loss surgery and has [place] insurance and therefore may be required to [...] consumed for meals and snacks: Please call [phone], option 5. Leave a message for the [...] by: Daniel Benitez RD documented in this encounterTrihealth Mccull[facility]06-15-2022 Instructions* Patient Instructions* Cris Mishra APRN.FATEMEH - 07/24/2021 12:00 PM EDT Mutually Agreed Upon Goals Eating Plan: [employer] [place] - Log intake 2 days per week. Replace skipped meals with a protein supplement. [email or web address]. Activity: [employer] Watch or Lenddo tracker. Sleep: No electronic for 30 minutes prior to sleep 2 nights per week. Sleep Hygiene. Stress: [place] for meditation - Mindful Moments by Lucila [...] be a deadly combination. documented in this encounterTrihealth Mccull[facility]06-15-2022 History of Present illness Narrative* Cris Misrha APRN.CNP - 07/24/2021 11:41 AM EDT Images [...] her obesity and related complications to the [facility] Bariatric and Metabolic [place]. Initial program weight: 368 lbs Last visit [...] meal. Exercise: She has been using an Zomato program Stress: Stable - lost her car [...] APRN.CNP The patient was informed that in [facility], only one month supply of medication is provided at a time, for 3 months, then a 6 month hiatus from the medication. The patient is also aware that timely refills required, with monthly osos-je-mrfa office visits for monitoring of therapy and refills. The patient understands that lack of timely follow up, or not filling the medication on time every month would constitute an interruption of therapy, and the 6 month hiatus from medication would occuras per the [facility] pharmacy board rules. I spent a total of 35 minutes on the date of the service which included tber-ad-gzbj patient care, completing clinical documentation, obtaining and/or reviewing separately obtained history, performing a medically appropriate examination, counseling and educating the patient/family/caregiver and ordering medications, tests, or procedures. Medical Decision Making: Medical Decision Making Level: 1 - N/A All documentation from previous visit was copied and pasted, documentation has been reviewed and edited as necessary for today's visit. Cris Mishra APRN.FATEMEH documented in this encounterTrihealth Mcc[facility]06-06-2022 Miscellaneous Notes* Telephone Encounter - Td Stiles LPN - 07/15/2021 4:09 PM EDT Patient phones requesting refills as follows: Pending Prescriptions Disp Refills OMEPRAZOLE 40 MG CAPSULE,DELAYED RELEASE 60 capsule 0 Sig: Take 1 capsule by mouth twice daily. JUAN LUIS: No CEE 07/15/21 NOV no upcoming appt Please review and advise. Td Stiles LPN documented in this encounterTrihealth Mccull[facility]06-06-2022 History of Present illness Narrative* Donald [...] no suspicious rashes or lesions. Musculoskeletal: 5/5 vocal performer strength bilaterally. Normal ROM of fingers and [...] TABLET Donald Pearl MD documented in this encounterTrihealth Mccull[facility]05-18-2022 Miscellaneous Notes* Telephone Encounter - Td [...] on 06/24 she went to and then [facility] ER. 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 Wanted to know if provider through she should go to the ER again, or if there was anything the provider w ould like to prescribe. Please call and advise. documented in this encounterTrihealth Mccull[facility]05-16-2022 History of Present illness Narrative* Starr Ram APRN.FATEMEH - 06/24/2021 1:47 PM EDT Subjective The history is provided by the patient. No banbury operator was used. HPI Raul Fleming is a [...] have confirmed and edited as necessary, the [facility] Review of Systems Constitutional: Negative for [...] and lack of investigative tools available at [facility], recommend patient be seen at nearest ED for further work up, patient will go to [place] ED - Diagnosis and treatment plan were discussed and questions were answered to the patient's satisfaction. Pt acknowledged understanding of concepts and follow up plan. Specific signs and symptoms that would indicate the need for higher level of care were discussed indetail warranting prompt ER evaluation. Starr Ram APRN.FATEMEH documented in this encounterTrihealth Mccull[facility]05-16-2022 Miscellaneous Notes* Telephone Encounter - Justin Wilson RN - 06/24/2021 12:48 PM EDT Protocol recommends see provider in 4 hours. No appts. Patient agreeable to UC for evaluation. Reason for Disposition [1] MILD-MODERATE [...] : No. Protocols used: ABDOMINAL PAIN - [id number] documented in this encounterTrihealth Mccull[facility]05-10-2022 History of Present illness Narrative* Alison Jules DO - 06/18/2021 2:28 PM EDT Images from the original note were not included. BMI Obesity Medicine Follow-Up Note June 18, 2021 Patient Summary: is 40 year old female who presents for follow-up evaluation of her obesity and related complications to the [facility] Bariatric and Metabolic [place]. Initial program weight: 368 lbs Last visit [...] meal. Exercise: She has been using an [employer] boxing program Stress: stable Sleep: no insomnia, [...] the date of the service which included nmcg-ju-uyut patient care, completing clinical documentation, obtaining and/or reviewing separately obtained history, performing a medically appropriate examination, counseling and educating the patient/family/caregiver and ordering medications, tests, or procedures. Medical Decision Making Alison Jules DO documented in this encounterTrihealth Mcc[facility]05-09-2022 Miscellaneous Notes* Telephone Encounter - Oleg Raman - 06/17/2021 2:38 PM EDT Patient called office. Said she is having trouble scheduling her 5 week appointment, and would likea call back. Her phone number is [phone]. 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 Jules documented in this encounterTrihealth Mccull[facility]04-13-2022 History of Present illness Narrative* Daniel Benitez RD - 05/22/2021 11:00 AM EDT [facility] Nutrition Therapy: Virtual Consult Re-assessment This [...] exercises at home as well: IN PROGRESS Y'all workout database: https://Quantason/ Chair or standing Team Body Project https://www.youUS Drum Supplyube.com/watch?v=t8fvAF-GwAz Chair exercise [employer] https://www.Vapotherm/resource/videos-detail.asp?video=38 Beth López Easy walk in place 15 min https://www.youUS Drum Supplyube.com/watch?v=cruX30clsRM Body Project 30 min https://youAmperion.be/J-IlaP3PN-7 Beth Rene Higher intensity walk 30 min https://www.FlatBurgerube.com/watch?v=gcAA8YEc5MJ 5. Drink 64 ounces per day water. Fluids should follow these guidelines: No carbonation, no caffeine, no calories, no alcohol. Separate foods and fluids by 20 minutes IN PROGRESS 6. Research and choose these vitamin options for use 3 weeks post operatively: IN PROGRESS - Bariatric Fusion: 4 Complete Chewable Multivitamins per day (2 in the AM, 2 in the PM) www.bariatricfusion.Gaia Herbs - Narvalous: 1 Bariatric Multivitamin and Calcium Citrate (total of 1200- 1500 mg/day) * take calcium citrate separately from Multivitamin with iron at least 2 hours apart and 4 hours apart from additional calcium www.Musicshake - Bariatric Choice: 4 Complete Multivitamins (chewables) per day Www.bariatricchoice.Gaia Herbs - Bariatric Advantage: 2 Multivitamins and 3 Calcium Citrate Chewables per day * take calcium citrate separately from Multivitamin with iron at least 2 hours apart and 4 hours apart from additional calcium Www.bariatricadvantage.Gaia Herbs Protein Goal: 92 gm per day NOT [...] chews and 1500mg calcium daily Physical Activity: Volar Video Workout games daily for 20 minutes CLINICAL [...] recently started on phentermine, and plans to sheepskin pickler Rx WALLY. Diet recall reveals consistentmeal pattern [...] guidelines for weight loss surgery and has [place] [employer] insurance and therefore may be required [...] by: Daniel Benitez RD documented in this encounterTrihealth Mccull[facility]04-12-2022 History of Present illness Narrative* Alison Jules DO - 05/21/2021 4:32 PM EDT Images from the original note were not included. BMI Obesity Medicine Follow-Up Note May 21, 2021 Patient Summary: is 40 year old female who presents for follow-up evaluation of her obesity and related complications to the [facility] Bariatric and Metabolic [place]. The patient is here today for a [...] with a dietitian tomorrow. Exercise: Currently using [employer] game which gives her a good workout. [...] the date of the service which included evec-ai-gyay patient care, completing clinical documentation, obtaining and/or reviewing separately obtained history, performing a medically appropriate examination, counseling and educating the patient/family/caregiver and ordering medications, tests, or procedures. Medical Decision Making Alison Jules DO documented in this encounterTrihealth Mccull[facility]01-14-2022 History of Present illness Narrative* Maribel [...] 22, 2021 3:56 PM documented in this encounterTrihealth Mcc[facility]10-29-2018 History of Past illness Narrative* Problem [...] of this encounter (statuses as of 05/21/2021) [facility] of Past illness Narrative* Problem [...] of this encounter (statuses as of 05/22/2021) [facility] of Past illness Narrative* Problem [...] of this encounter (statuses as of 06/17/2021) [facility] of Past illness Narrative* Problem [...] of this encounter (statuses as of 06/18/2021) [facility] of Past illness Narrative* Problem [...] of this encounter (statuses as of 06/18/2021) [facility] of Past illness Narrative* Problem [...] of this encounter (statuses as of 06/24/2021) [facility] of Past illness Narrative* Problem [...] of this encounter (statuses as of 06/26/2021) [facility] of Past illness Narrative* Problem [...] of this encounter (statuses as of 07/15/2021) [facility] of Past illness Narrative* Problem [...] of this encounter (statuses as of 07/25/2021) [facility] Past illness Narrative* Problem [...] of this encounter (statuses as of 07/30/2021) [facility] Past illness Narrative* Problem [...] of this encounter (statuses as of 07/31/2021) [facility] Narrative* Problem [...] of this encounter (statuses as of 08/06/2021) [facility] Narrative* Problem [...] of this encounter (statuses as of 08/14/2021) [facility] Narrative* Problem [...] of this encounter (statuses as of 08/30/2021) [facility] Narrative* Problem [...] of this encounter (statuses as of 09/03/2021) [facility] Narrative* Problem [...] of this encounter (statuses as of 09/03/2021) [facility] Narrative* Problem [...] of this encounter (statuses as of 09/13/2021) [facility] Narrative* Problem [...] of this encounter (statuses as of 09/17/2021) [facility] Narrative* Problem [...] of this encounter (statuses as of 09/18/2021) [facility] Narrative* Problem [...] of this encounter (statuses as of 09/20/2021) [facility] Narrative* Problem [...] of this encounter (statuses as of 09/25/2021) [facility] Narrative* Problem [...] of this encounter (statuses as of 10/04/2021) [facility] Narrative* Problem [...] of this encounter (statuses as of 10/09/2021) [facility] Narrative* Problem [...] of this encounter (statuses as of 10/09/2021) [facility] Narrative* Problem [...] of this encounter (statuses as of 10/14/2021) [facility] Narrative* Problem [...] of this encounter (statuses as of 10/18/2021) [facility] Narrative* Problem [...] of this encounter (statuses as of 10/21/2021) [facility] Narrative* Problem [...] of this encounter (statuses as of 10/22/2021) [facility] Narrative* Problem [...] of this encounter (statuses as of 10/22/2021) [facility] Narrative* Problem [...] of this encounter (statuses as of 10/22/2021) [facility] Narrative* Problem [...] of this encounter (statuses as of 10/23/2021) [facility] Narrative* Problem [...] of this encounter (statuses as of 10/23/2021) [facility] Narrative* Problem [...] of this encounter (statuses as of 10/24/2021) [facility] Narrative* Problem [...] of this encounter (statuses as of 10/27/2021) [facility] Narrative* Problem [...] of this encounter (statuses as of 10/30/2021) [facility] Narrative* Problem [...] of this encounter (statuses as of 11/07/2021) [facility] Narrative* Problem [...] of this encounter (statuses as of 11/18/2021) [facility] Narrative* Problem [...] of this encounter (statuses as of 12/10/2021) [facility] Narrative* Problem [...] of this encounter (statuses as of 12/10/2021) [facility] Narrative* Problem [...] of this encounter (statuses as of 01/06/2022) [facility] Narrative* Problem [...] of this encounter (statuses as of 01/10/2022) [facility] Narrative* Problem [...] of this encounter (statuses as of 01/17/2022) [facility] Narrative* Problem [...] of this encounter (statuses as of 01/18/2022) [facility] Narrative* Problem [...] of this encounter (statuses as of 01/20/2022) [facility] Narrative* Problem [...] of this encounter (statuses as of 02/22/2022) [facility]arrative* Problem [...] of this encounter (statuses as of 03/11/2022) [facility] Narrative* Problem [...] of this encounter (statuses as of 03/31/2022) [facility] Narrative* Problem [...] of this encounter (statuses as of 04/02/2022) [facility] Narrative* Problem [...] of this encounter (statuses as of 04/11/2022) [facility] Narrative* Problem [...] of this encounter (statuses as of 05/19/2022) [facility] Narrative* Problem [...] of this encounter (statuses as of 05/22/2022) [facility]10[facility] History of Past illness Narrative* Problem [...] of this encounter (statuses as of 05/23/2022) [facility] History of Past illness Narrative* Problem [...] of this encounter (statuses as of 06/05/2022) [facility] History of Past illness Narrative* Problem [...] of this encounter (statuses as of 06/11/2022) [facility] History of Past illness Narrative* Problem [...] of this encounter (statuses as of 06/17/2022) [facility] History of Past illness Narrative* Problem [...] of this encounter (statuses as of 2022) [facility] History of Past illness Narrative* Problem [...] of this encounter (statuses as of 10/01/2022) [facility] History of Past illness Narrative* Problem [...] of this encounter (statuses as of 10/03/2022) [facility] History of Past illness Narrative* Problem [...] of this encounter (statuses as of 12/14/2022) [facility] History of Past illness Narrative* Problem [...] of this encounter (statuses as of 03/23/2023) [facility] History of Past illness Narrative* Problem [...] of this encounter (statuses as of 04/20/2023) [facility] History of Past illness Narrative* Problem [...] of this encounter (statuses as of 05/04/2023) [facility] History of Past illness Narrative* Problem [...] of this encounter (statuses as of 05/11/2023) [facility] Max [facility]ollins [facility] Note Date/Time September 01, 2024 11:5 6am [facility] Medical Records Department [address] [place] [address] Anesthesia Postop Eval II 09/01/24 1155 MR#: [id number] Acct: [id number] Name: RAUL CHONG DIANNA Rep #:[id number] : 1980 43 From: Max quach MD PCP: Dr. Maira Escamilla MD Status:REG S DC Y Race: C Location: [place] [address]- Anesthesia Postop Eval I Sum Postop Eval Completion status Anesthesia document: Postop Eval 1 completed: Yes Anesthesia Postop Eval I Summary Anesthesia Postop Eval I Summary: Anesthesia Postop Eval I: Assessment Summary Airway patent Yes 09/01/24 09:56 INSIGHTS [email or web address].[email or web address] Spontaneous unlabored Yes 09/01/24 09:56 INSIGHTS [email or web address].MIGUEL respirations Mental status Awake 09/01/24 09:56 INSIGHTS [email or web address].SJAN nausea No 09/01/24 09:56 INSIGHTS STRATEGIST.SJAN Vomiting No 09/01/24 09:56 INSIGHTS STRATEGIST.SJFARSHAD Anesthesia Postop Eval I: Fluid Summary Crystalloid volume administer 1,000 09/01/24 09:56 INSIGHTS STRATEGIST.SJAN (ml) Colloids volume administered ( ml) Blood Product volume administered (ml) Total IV fluid infused 1,000 09/01/24 09:56 INSIGHTS STRATEGIST.SJFARSHAD Anesthesia Postop Eval I: Summary Notes Anesthesia Complication No 09/01/24 09:56 INSIGHTS STRATEGIST.MIGUEL Anesthesia Complication Comment: Post-operative progress note Anesthesia: Postop Eval II Evaluation Mental status: Awake and Calm Pain Level: 1 nausea: No Vomiting: No Complications Anesthesia Complication: No 09/01/24 1156 <Electronically signed by Max ramirez MD> Date _ Max Mccollum MD Cosigner Signature: Date CC: ~ Signed [facility] Work Phone: Discharge summary Author Carlos Dockery [facility] Note Date/Time August 16, 2024 11:34 am [facility] Medical Records Department [address] [place] [address] Emergency Department Summary 08/16/24 MR#: [id number] Acct: [id number] Name: RAUL FLEMING DIANNA Rep #:[id number] : 1980 43 From: Carlos Dockery MD [...] discharge or pain. No dysuria or hematuria. [facility] Medical History Migraine GERD (gastroesophageal reflux disease) [...] more for viral syndrome. She will continue [id number] antipyretics and analgesics and follow-up with her [...] 89.2 H Lymph % (Auto) 4.7 L Wake % (Auto) 5.4 Eos % (Auto) 0.1 [...] Clarity Clear Urine pH 6.0 Ur Specific [place] 1.010 Urine Protein 15 H Urine Glucose [...] IMPRESSION: No acute cardiopulmonary process. Reading Location: [facility] Discharge Plan Triage Chief Complaint: General Illness [...] if not improving Activity Restrictions/Additional Instructions: Continue [id number] Tylenol as needed for fever and pain. Follow-up with your primary care provider in the next 3 to 5 days. Return to the emergency department with new or worsening symptoms. Print Language: Lebanese Disposition Disposition: Home, Self Care What to do if you have Problems For any increased pain, shortness of breath, bleeding, nausea or vomiting, chestpain, or any unexpected problems, contact your Primary Care Provider. Call [facility] ([phone]) or report to the closest Emergency Room. Call 911 if necessary. 08/16/24 1134 <Electronically signed by Carlos Dockery MD> Cosigner Signature (if applicable): CC: Dr. Maira Escamilla MD ~ Signed [facility] Work Phone: Evaluation + Plan note No data available for this section [facility] Evaluation note* Diagnosis Class 3 severe obesity with serious comorbidity and body mass index (BMI) of 60.0 to 69.9 in adult, unspecified obesity type (HCC)- Primary documented in this encounter [facility] Diagnosis Morbid obesity (HCC)- Primary Morbid obesity Dietary counseling and surveillance Dietary surveillance and counseling documented in this encounter [facility] note* Diagnosis Class 3 severe obesity with serious comorbidity and body mass index (BMI) of 60.0 to 69.9 in adult, unspecified obesity type (HCC)- Primary [facility] note[facility] information [facility] Work Phone: Evaluation note* Diagnosis Abdominal pain, unspecified abdominal location- Primary [facility]* Diagnosis Cubital tunnel syndrome on left- Primary Lesion of ulnar nerve documented in this encounter [facility] note* Diagnosis Class 3 severe obesity due to excess calories with body mass index (BMI) of 50.0 to 59.9 in adult, unspecified whether serious comorbidity present (HCC)- Primary Weight disorder Other symptoms concerning nutrition, metabolism, and development Medication management Encounter for long-term (current) use of other medications documented [facility] this encounter [facility]* Diagnosis Morbid obesity (HCC)- Primary Morbid obesity Dietary counseling and surveillance Dietary surveillance and counseling [facility]* Diagnosis Facial rash- Primary Rash and other nonspecific skin eruption [facility]* Diagnosis Excoriation of face, subsequent encounter- Primary [facility]* Diagnosis Morbid obesity (HCC)- Primary Morbid obesity Gastroesophageal reflux disease, unspecified whether esophagitis present Preoperative examination Preoperative examination, unspecified Encounter for screening for COVID-19 Morbid obesity (HCC) Morbid obesity Gastroesophageal reflux disease, unspecified whether esophagitis present [facility]* Diagnosis Pre-operative examination- Primary Preoperative examination, [...] whether esophagitis present [facility]* Diagnosis Morbid obesity due to excess calories (HCC)- Primary [facility] encounter [facility] Diagnosis Encounter for screening mammogram for breast cancer documented in this encounter [facility] Diagnosis S/P bariatric surgery- Primary Bariatric surgery status Dietary counseling and surveillance Dietary surveillance and counseling Class 3 severe obesity with serious comorbidity and body mass index (BMI) of 60.0 to 69.9 in adult, unspecified obesity type (HCC) documented in this encounter [facility] Diagnosis Bariatric surgery status- Primary documented in this encounter [facility] Diagnosis Bariatric surgery status- Primary documented in this encounter [facility] Diagnosis Morbid obesity due to excess calories (HCC)- Primary Bariatric surgery status documented in this encounter [facility] Diagnosis Cervical radiculopathy Brachial neuritis or radiculitis nos documented in this encounter [facility]* Diagnosis Recurrent cold sores- Primary Herpes simplex without mention of complication Chapped lips Diseases of lips Mouth pain Other and unspecified diseases of the oral soft tissues documented [facility] this encounter [facility] Diagnosis No-show for appointment- Primary documented in this encounter [facility] Diagnosis COVID- Primary documented in this encounter [facility]* Diagnosis Sore throat- Primary Acute pharyngitis Strep throat Streptococcal sore throat documented in this encounter [facility] Diagnosis Irregular menses- Primary Irregular menstrual cycle [facility] Diagnosis Seasonal allergies Allergic rhinitis, cause unspecified documented in this encounter [facility]* Diagnosis Encounter for surgical aftercare following surgery of digestive system- Primary Aftercare following surgery of the teeth, oral cavity and digestive system, NEC Class 3 severe obesity due to excess calories without serious comorbidity with body mass index (BMI) of 50.0 to 59.9 in adult (HCC) documented in this encounter [facility]* Diagnosis Cervical radiculopathy Brachial neuritis or radiculitis nos documented in this encounter [facility]* Diagnosis Sciatica, right side- Primary documented in this encounter [facility] Diagnosis Allergy, subsequent encounter- Primary [facility] Diagnosis Lightheaded- Primary Dizziness and giddiness Migraine without status migrainosus, not intractable, unspecified migraine type Gastric bypass status for obesity Bariatric surgery status documented in this encounter [facility]* Diagnosis Hyperglycemia- Primary Other abnormal glucose documented in this encounter [facility] Diagnosis Viral bronchitis- Primary Acute bronchitis [facility] Diagnosis Viral bronchitis- Primary Acute bronchitis [facility]* Diagnosis Encounter for screening mammogram for breast cancer documented in this encounter [facility] note* Diagnosis Cervical radiculopathy Brachial neuritis or radiculitis nos documented [facility]* Diagnosis Encounter for screening mammogram for breast cancer documented [facility]* Diagnosis Encounter for surgical aftercare following surgery of digestive system- Primary Aftercare following surgery of the teeth, oral cavity and digestive system, NEC documented in this encounter [facility]* Diagnosis Allergy, subsequent encounter Recurrent cold sores Herpes simplex without mention of complication Cervical radiculopathy Brachial neuritis or radiculitis nos documented in this encounter [facility] note* Diagnosis Cervical radiculopathy Brachial neuritis or radiculitis nos documented [facility]* Diagnosis Recurrent cold sores Herpes simplex without mention of complication documented [facility] this [facility] Diagnosis Migraine without status migrainosus, not intractable, unspecified migraine type- Primary Gastric bypass status for obesity Bariatric surgery status Cold intolerance Other general symptoms Hyperglycemia Other abnormal glucose Screening for hyperlipidemia Screening for lipoid disorders Cervical radiculopathy Brachial neuritis or radiculitis nos documented [facility]* Diagnosis Cervical radiculopathy Brachial neuritis or radiculitis nos documented in this encounter [facility] note* Diagnosis Chest pain, unspecified type- Primary [...] site Acute cough documented in this encounter [facility] note* Diagnosis Establishing care with new [...] (BMI) of 50.0 to 59.9 in adult ([facility]) Gastroesophageal reflux disease without esophagitis Esophageal reflux Migraine without status migrainosus, not intractable, unspecified migraine type Mild intermittent asthma, unspecified whether complicated SVT (supraventricular tachycardia) ([facility]) Other specified cardiac dysrhythmias Cervical radiculopathy Brachial neuritis or radiculitis nos documented in this encounter [facility] note* Diagnosis Establishing care with new doctor, encounter for- Primary Other reasons for seeking consultation ASTHMA UNSPECIFIED Unspecified asthma Seasonal allergies Allergic rhinitis, cause unspecified Plantar fasciitis Plantar fascial fibromatosis Morbid obesity (HCC) Morbid obesity Rash and nonspecific skin eruption- Primary Rash and other nonspecific skin eruption Morbid obesity, unspecified obesity type ([facility]) Lumbar sprain, subsequent encounter Pre-operative examination- Primary Preoperative examination, unspecified Class 3 severe obesity due to excess calories without serious comorbidity with body mass index (BMI) of 50.0 to 59.9 in adult ([facility]) Gastroesophageal reflux disease without esophagitis Esophageal reflux Migraine without status migrainosus, not intractable, unspecified migraine type Mild intermittent asthma, unspecified whether complicated SVT (supraventricular tachycardia) ([facility]) Other specified cardiac dysrhythmias Encounter for surgical aftercare following surgery of digestive system- Primary Aftercare following surgery of the teeth, oral cavity and digestive system, NEC Abdominal pannus Localized adiposity Vitamin D deficiency Unspecified vitamin D deficiency documented in this encounter [facility] note* Diagnosis Establishing care with new doctor, encounter for- Primary Other reasons for seeking consultation ASTHMA UNSPECIFIED Unspecified asthma Seasonal allergies Allergic rhinitis, cause unspecified Plantar fasciitis Plantar fascial fibromatosis Morbid obesity (HCC) Morbid obesity Rash and nonspecific skin eruption- Primary Rash and other nonspecific skin eruption Morbid obesity, unspecified obesity type ([facility]) Lumbar sprain, subsequent encounter Pre-operative examination- Primary Preoperative examination, unspecified Class 3 severe obesity due to excess calories without serious comorbidity with body mass index (BMI) of 50.0 to 59.9 in adult ([facility]) Gastroesophageal reflux disease without esophagitis Esophageal reflux Migraine without status migrainosus, not intractable, unspecified migraine type Mild intermittent asthma, unspecified whether complicated SVT (supraventricular tachycardia) ([facility]) Other specified cardiac dysrhythmias Palpitations- Primary documented in this encounter [facility] note* Diagnosis Establishing care with new [...] (BMI) of 50.0 to 59.9 in adult ([facility]) Gastroesophageal reflux disease without esophagitis Esophageal reflux Migraine without status migrainosus, not intractable, unspecified migraine type Mild intermittent asthma, unspecified whether complicated SVT (supraventricular tachycardia) ([facility]) Other specified cardiac dysrhythmias History of migraine- Primary Personal history of other disorders of nervous system and sense organs Headache, unspecified headache type Tension headache documented in this encounter [facility] note* Diagnosis Establishing care with new [...] (BMI) of 50.0 to 59.9 in adult ([facility]) Gastroesophageal reflux disease without esophagitis Esophageal reflux Migraine without status migrainosus, not intractable, unspecified migraine type Mild intermittent asthma, unspecified whether complicated SVT (supraventricular tachycardia) ([facility]) Other specified cardiac dysrhythmias Loose skin- Primary Abdominal pannus Localized adiposity Rash Rash and other nonspecific skin eruption Dermatitis Contact dermatitis and other eczema, due to unspecified cause Intertrigo Other specified erythematous condition documented in this encounter [facility] note* Diagnosis Establishing care with new [...] (BMI) of 50.0 to 59.9 in adult ([facility]) Gastroesophageal reflux disease without esophagitis Esophageal reflux Migraine without status migrainosus, not intractable, unspecified migraine type Mild intermittent asthma, unspecified whether complicated SVT (supraventricular tachycardia) ([facility]) Other specified cardiac dysrhythmias URI, acute Acute upper respiratory infections of unspecified site Acute cough documented in this encounter [facility] note* Diagnosis Establishing care with new doctor, encounter for- Primary Other reasons for seeking consultation ASTHMA UNSPECIFIED Unspecified asthma Seasonal allergies Allergic rhinitis, cause unspecified Plantar fasciitis Plantar fascial fibromatosis Morbid obesity ([facility]) Morbid obesity Rash and nonspecific skin eruption- Primary Rash and other nonspecific skin eruption Morbid obesity, unspecified obesity type ([facility]) Lumbar sprain, subsequent encounter Pre-operative examination- Primary Preoperative examination, unspecified Class 3 severe obesity due to excess calories without serious comorbidity with body mass index (BMI) of 50.0 to 59.9 in adult ([facility]) Gastroesophageal reflux disease without esophagitis Esophageal reflux Migraine without status migrainosus, not intractable, unspecified migraine type Mild intermittent asthma, unspecified whether complicated SVT (supraventricular tachycardia) ([facility]) Other specified cardiac dysrhythmias SVT (supraventricular tachycardia) ([facility])- Primary Other specified cardiac dysrhythmias Need for vaccination Need for prophylactic vaccination and inoculation against unspecified single disease Lightheaded Dizziness and giddiness Palpitations Mild intermittent asthma, unspecified whether complicated Headache, unspecified headache type Breast pain Mastodynia History of gastric bypass Bariatric surgery status Vitamin D deficiency Unspecified vitamin D deficiency documented in this encounter [facility] note* Diagnosis Establishing care with new doctor, encounter for- Primary Other reasons for seeking consultation ASTHMA UNSPECIFIED Unspecified asthma Seasonal allergies Allergic rhinitis, cause unspecified Plantar fasciitis Plantar fascial fibromatosis Morbid obesity ([facility]) Morbid obesity Rash and nonspecific skin eruption- Primary Rash and other nonspecific skin eruption Morbid obesity, unspecified obesity type ([facility]) Lumbar sprain, subsequent encounter Class 3 severe obesity due to excess calories without serious comorbidity with body mass index (BMI) of 60.0 to 69.9 in adult ([facility]) Pre-operative examination- Primary Preoperative examination, unspecified Class 3 severe obesity due to excess calories without serious comorbidity with body mass index (BMI) of 50.0 to 59.9 in adult ([facility]) Gastroesophageal reflux disease without esophagitis Esophageal reflux Migraine without status migrainosus, not intractable, unspecified migraine type Mild intermittent asthma, unspecified whether complicated SVT (supraventricular tachycardia) ([facility]) Other specified cardiac dysrhythmias documented in this encounter [facility] note* Diagnosis Establishing care with new doctor, encounter for- Primary Other reasons for seeking consultation ASTHMA UNSPECIFIED Unspecified asthma Seasonal allergies Allergic rhinitis, cause unspecified Plantar fasciitis Plantar fascial fibromatosis Morbid obesity ([facility]) Morbid obesity Rash and nonspecific skin eruption- Primary Rash and other nonspecific skin eruption Morbid obesity, unspecified obesity type ([facility]) Lumbar sprain, subsequent encounter Pain Generalized pain Pre-operative examination- Primary Preoperative examination, unspecified Class 3 severe obesity due to excess calories without serious comorbidity with body mass index (BMI) of 50.0 to 59.9 in adult ([facility]) Gastroesophageal reflux disease without esophagitis Esophageal reflux Migraine without status migrainosus, not intractable, unspecified migraine type Mild intermittent asthma, unspecified whether complicated SVT (supraventricular tachycardia) ([facility]) Other specified cardiac dysrhythmias documented in this encounter [facility] note* Diagnosis Establishing care with new doctor, encounter for- Primary Other reasons for seeking consultation ASTHMA UNSPECIFIED Unspecified asthma Seasonal allergies Allergic rhinitis, cause unspecified Plantar fasciitis Plantar fascial fibromatosis Morbid obesity ([facility]) Morbid obesity Rash and nonspecific skin eruption- Primary Rash and other nonspecific skin eruption Morbid obesity, unspecified obesity type ([facility]) Lumbar sprain, subsequent encounter Pre-operative examination- Primary Preoperative examination, unspecified Class 3 severe obesity due to excess calories without serious comorbidity with body mass index (BMI) of 50.0 to 59.9 in adult ([facility]) Gastroesophageal reflux disease without esophagitis Esophageal reflux Migraine without status migrainosus, not intractable, unspecified migraine type Mild intermittent asthma, unspecified whether complicated SVT (supraventricular tachycardia) ([facility]) Other specified cardiac dysrhythmias Headache, unspecified headache type Vision loss Unspecified visual loss Near syncope Syncope and collapse Confusion Unspecified psychosis documented in this encounter [facility] note* Diagnosis Establishing care with new doctor, encounter for- Primary Other reasons for seeking consultation ASTHMA UNSPECIFIED Unspecified asthma Seasonal allergies Allergic rhinitis, cause unspecified Plantar fasciitis Plantar fascial fibromatosis Morbid obesity ([facility]) Morbid obesity Rash and nonspecific skin eruption- Primary Rash and other nonspecific skin eruption Morbid obesity, unspecified obesity type ([facility]) Lumbar sprain, subsequent encounter Pre-operative examination- Primary Preoperative examination, unspecified Class 3 severe obesity due to excess calories without serious comorbidity with body mass index (BMI) of 50.0 to 59.9 in adult ([facility]) Gastroesophageal reflux disease without esophagitis Esophageal reflux Migraine without status migrainosus, not intractable, unspecified migraine type Mild intermittent asthma, unspecified whether complicated SVT (supraventricular tachycardia) ([facility]) Other specified cardiac dysrhythmias Pre-op evaluation- Primary Preoperative examination, unspecified documented in this encounter [facility] note* Diagnosis Establishing care with new doctor, encounter for- Primary Other reasons for seeking consultation ASTHMA UNSPECIFIED Unspecified asthma Seasonal allergies Allergic rhinitis, cause unspecified Plantar fasciitis Plantar fascial fibromatosis Morbid obesity ([facility]) Morbid obesity Rash and nonspecific skin eruption- Primary Rash and other nonspecific skin eruption Morbid obesity, unspecified obesity type ([facility]) Lumbar sprain, subsequent encounter Pre-operative examination- Primary Preoperative examination, unspecified Class 3 severe obesity due to excess calories without serious comorbidity with body mass index (BMI) of 50.0 to 59.9 in adult ([facility]) Gastroesophageal reflux disease without esophagitis Esophageal reflux Migraine without status migrainosus, not intractable, unspecified migraine type Mild intermittent asthma, unspecified whether complicated SVT (supraventricular tachycardia) ([facility]) Other specified cardiac dysrhythmias Pre-operative examination- Primary Preoperative examination, unspecified Migraine without status migrainosus, not intractable, unspecified migraine type SVT (supraventricular tachycardia) ([facility]) Other specified cardiac dysrhythmias Mild intermittent asthma, [...] Associated Problem(s): History of gastric bypass Assessment: 2021 * Assessment & Plan Note - [...] rx as needed documented in this encounter [facility] note* Diagnosis Establishing care with new [...] (BMI) of 50.0 to 59.9 in adult ([facility]) Gastroesophageal reflux disease without esophagitis Esophageal reflux Migraine without status migrainosus, not intractable, unspecified migraine type Mild intermittent asthma, unspecified whether complicated SVT (supraventricular tachycardia) ([facility]) Other specified cardiac dysrhythmias Pre-operative examination- Primary Preoperative examination, unspecified Migraine without status migrainosus, not intractable, unspecified migraine type SVT (supraventricular tachycardia) ([facility]) Other specified cardiac dysrhythmias Mild intermittent asthma, [...] specified erythematous condition documented in this encounter [facility] note* Diagnosis Establishing care with new [...] (BMI) of 50.0 to 59.9 in adult ([facility]) Gastroesophageal reflux disease without esophagitis Esophageal reflux Migraine without status migrainosus, not intractable, unspecified migraine type Mild intermittent asthma, unspecified whether complicated SVT (supraventricular tachycardia) ([facility]) Other specified cardiac dysrhythmias Pre-operative examination- Primary Preoperative examination, unspecified Migraine without status migrainosus, not intractable, unspecified migraine type SVT (supraventricular tachycardia) ([facility]) Other specified cardiac dysrhythmias Mild intermittent asthma, [...] specified erythematous condition documented in this encounter [facility] note* Diagnosis Establishing care with new doctor, encounter for- Primary Other reasons for seeking consultation ASTHMA UNSPECIFIED Unspecified asthma Seasonal allergies Allergic rhinitis, cause unspecified Plantar fasciitis Plantar fascial fibromatosis Morbid obesity ([facility]) Morbid obesity Rash and nonspecific skin eruption- Primary Rash and other nonspecific skin eruption Morbid obesity, unspecified obesity type ([facility]) Lumbar sprain, subsequent encounter Pre-operative examination- Primary Preoperative examination, unspecified Class 3 severe obesity due to excess calories without serious comorbidity with body mass index (BMI) of 50.0 to 59.9 in adult ([facility]) Gastroesophageal reflux disease without esophagitis Esophageal reflux Migraine without status migrainosus, not intractable, unspecified migraine type Mild intermittent asthma, unspecified whether complicated SVT (supraventricular tachycardia) ([facility]) Other specified cardiac dysrhythmias Pre-operative examination- Primary Preoperative examination, unspecified Migraine without status migrainosus, not intractable, unspecified migraine type SVT (supraventricular tachycardia) ([facility]) Other specified cardiac dysrhythmias Mild intermittent asthma, [...] specified erythematous condition documented in this encounter [facility] note* Diagnosis Establishing care with new [...] (BMI) of 50.0 to 59.9 in adult ([facility]) Gastroesophageal reflux disease without esophagitis Esophageal reflux Migraine without status migrainosus, not intractable, unspecified migraine type Mild intermittent asthma, unspecified whether complicated SVT (supraventricular tachycardia) ([facility]) Other specified cardiac dysrhythmias Pre-operative examination- Primary Preoperative examination, unspecified Migraine without status migrainosus, not intractable, unspecified migraine type SVT (supraventricular tachycardia) ([facility]) Other specified cardiac dysrhythmias Mild intermittent asthma, unspecified whether complicated Gastroesophageal reflux disease without esophagitis Esophageal reflux History of gastric bypass Bariatric surgery status Class 3 severe obesity due to excess calories without serious comorbidity with body mass index (BMI) of 50.0 to 59.9 in adult ([facility])- Primary Pre-op evaluation Preoperative examination, unspecified documented in this encounter [facility] note* Diagnosis Establishing care with new [...] (BMI) of 50.0 to 59.9 in adult ([facility]) Gastroesophageal reflux disease without esophagitis Esophageal reflux Migraine without status migrainosus, not intractable, unspecified migraine type Mild intermittent asthma, unspecified whether complicated SVT (supraventricular tachycardia) ([facility]) Other specified cardiac dysrhythmias Pre-operative examination- Primary Preoperative examination, unspecified Migraine without status migrainosus, not intractable, unspecified migraine type SVT (supraventricular tachycardia) ([facility]) Other specified cardiac dysrhythmias Mild intermittent asthma, unspecified whether complicated Gastroesophageal reflux disease without esophagitis Esophageal reflux History of gastric bypass Bariatric surgery status Post-operative state- Primary Other postprocedural status S/P panniculectomy Other postprocedural status documented in this encounter [facility] note* Diagnosis Establishing care with new [...] (BMI) of 50.0 to 59.9 in adult ([facility]) Gastroesophageal reflux disease without esophagitis Esophageal reflux Migraine without status migrainosus, not intractable, unspecified migraine type Mild intermittent asthma, unspecified whether complicated SVT (supraventricular tachycardia) ([facility]) Other specified cardiac dysrhythmias Pre-operative examination- Primary Preoperative examination, unspecified Migraine without status migrainosus, not intractable, unspecified migraine type SVT (supraventricular tachycardia) ([facility]) Other specified cardiac dysrhythmias Mild intermittent asthma, unspecified whether complicated Gastroesophageal reflux disease without esophagitis Esophageal reflux History of gastric bypass Bariatric surgery status Acute right-sided low back pain with right-sided sciatica- Primary documented in this encounter [facility] note* Diagnosis Establishing care with new doctor, encounter for- Primary Other reasons for seeking consultation ASTHMA UNSPECIFIED Unspecified asthma Seasonal allergies Allergic rhinitis, cause unspecified Plantar fasciitis Plantar fascial fibromatosis Morbid obesity ([facility]) Morbid obesity Rash and nonspecific skin eruption- Primary Rash and other nonspecific skin eruption Morbid obesity, unspecified obesity type ([facility]) Lumbar sprain, subsequent encounter Pre-operative examination- Primary Preoperative examination, unspecified Class 3 severe obesity due to excess calories without serious comorbidity with body mass index (BMI) of 50.0 to 59.9 in adult ([facility]) Gastroesophageal reflux disease without esophagitis Esophageal reflux Migraine without status migrainosus, not intractable, unspecified migraine type Mild intermittent asthma, unspecified whether complicated SVT (supraventricular tachycardia) ([facility]) Other specified cardiac dysrhythmias Pre-operative examination- Primary Preoperative examination, unspecified Migraine without status migrainosus, not intractable, unspecified migraine type SVT (supraventricular tachycardia) ([facility]) Other specified cardiac dysrhythmias Mild intermittent asthma, unspecified whether complicated Gastroesophageal reflux disease without esophagitis Esophageal reflux History of gastric bypass Bariatric surgery status Recurrent cold sores Herpes simplex without mention of complication documented in this encounter [facility] note* Diagnosis Establishing care with new doctor, encounter for- Primary Other reasons for seeking consultation ASTHMA UNSPECIFIED Unspecified asthma Seasonal allergies Allergic rhinitis, cause unspecified Plantar fasciitis Plantar fascial fibromatosis Morbid obesity (HCC) Morbid obesity Rash and nonspecific skin eruption- Primary Rash and other nonspecific skin eruption Morbid obesity, unspecified obesity type ([facility]) Lumbar sprain, subsequent encounter Pre-operative examination- Primary Preoperative examination, unspecified Class 3 severe obesity due to excess calories without serious comorbidity with body mass index (BMI) of 50.0 to 59.9 in adult ([facility]) Gastroesophageal reflux disease without esophagitis Esophageal reflux Migraine without status migrainosus, not intractable, unspecified migraine type Mild intermittent asthma, unspecified whether complicated SVT (supraventricular tachycardia) ([facility]) Other specified cardiac dysrhythmias Pre-operative examination- Primary Preoperative examination, unspecified Migraine without status migrainosus, not intractable, unspecified migraine type SVT (supraventricular tachycardia) ([facility]) Other specified cardiac dysrhythmias Mild intermittent asthma, unspecified whether complicated Gastroesophageal reflux disease without esophagitis Esophageal reflux History of gastric bypass Bariatric surgery status Post-operative state- Primary Other postprocedural status S/P panniculectomy Other postprocedural status documented in this encounter [facility] note* Diagnosis Establishing care with new doctor, encounter for- Primary Other reasons for seeking consultation ASTHMA UNSPECIFIED Unspecified asthma Seasonal allergies Allergic rhinitis, cause unspecified Plantar fasciitis Plantar fascial fibromatosis Morbid obesity ([facility]) Morbid obesity Rash and nonspecific skin eruption- Primary Rash and other nonspecific skin eruption Morbid obesity, unspecified obesity type ([facility]) Lumbar sprain, subsequent encounter Pre-operative examination- Primary Preoperative examination, unspecified Class 3 severe obesity due to excess calories without serious comorbidity with body mass index (BMI) of 50.0 to 59.9 in adult ([facility]) Gastroesophageal reflux disease without esophagitis Esophageal reflux Migraine without status migrainosus, not intractable, unspecified migraine type Mild intermittent asthma, unspecified whether complicated SVT (supraventricular tachycardia) ([facility]) Other specified cardiac dysrhythmias Pre-operative examination- Primary Preoperative examination, unspecified Migraine without status migrainosus, not intractable, unspecified migraine type SVT (supraventricular tachycardia) ([facility]) Other specified cardiac dysrhythmias Mild intermittent asthma, unspecified whether complicated Gastroesophageal reflux disease without esophagitis Esophageal reflux History of gastric bypass Bariatric surgery status Post-operative state- Primary Other postprocedural status S/P panniculectomy Other postprocedural status documented in this encounter [facility] note* Diagnosis Establishing care with new doctor, encounter for- Primary Other reasons for seeking consultation ASTHMA UNSPECIFIED Unspecified asthma Seasonal allergies Allergic rhinitis, cause unspecified Plantar fasciitis Plantar fascial fibromatosis Morbid obesity (HCC) Morbid obesity Rash and nonspecific skin eruption- Primary Rash and other nonspecific skin eruption Morbid obesity, unspecified obesity type ([facility]) Lumbar sprain, subsequent encounter Pre-operative examination- Primary Preoperative examination, unspecified Class 3 severe obesity due to excess calories without serious comorbidity with body mass index (BMI) of 50.0 to 59.9 in adult ([facility]) Gastroesophageal reflux disease without esophagitis Esophageal reflux Migraine without status migrainosus, not intractable, unspecified migraine type Mild intermittent asthma, unspecified whether complicated SVT (supraventricular tachycardia) ([facility]) Other specified cardiac dysrhythmias Pre-operative examination- Primary Preoperative examination, unspecified Migraine without status migrainosus, not intractable, unspecified migraine type SVT (supraventricular tachycardia) ([facility]) Other specified cardiac dysrhythmias Mild intermittent asthma, unspecified whether complicated Gastroesophageal reflux disease without esophagitis Esophageal reflux History of gastric bypass Bariatric surgery status Cervical radiculopathy Brachial neuritis or radiculitis nos documented in this encounter [facility] note* Diagnosis Establishing care with new doctor, encounter for- Primary Other reasons for seeking consultation ASTHMA UNSPECIFIED Unspecified asthma Seasonal allergies Allergic rhinitis, cause unspecified Plantar fasciitis Plantar fascial fibromatosis Morbid obesity ([facility]) Morbid obesity Rash and nonspecific skin eruption- Primary Rash and other nonspecific skin eruption Morbid obesity, unspecified obesity type ([facility]) Lumbar sprain, subsequent encounter Pre-operative examination- Primary Preoperative examination, unspecified Class 3 severe obesity due to excess calories without serious comorbidity with body mass index (BMI) of 50.0 to 59.9 in adult ([facility]) Gastroesophageal reflux disease without esophagitis Esophageal reflux Migraine without status migrainosus, not intractable, unspecified migraine type Mild intermittent asthma, unspecified whether complicated ([facility]) SVT (supraventricular tachycardia) ([facility]) Other specified cardiac dysrhythmias Pre-operative examination- Primary Preoperative examination, unspecified Migraine without status migrainosus, not intractable, unspecified migraine type SVT (supraventricular tachycardia) (HCC) Other specified cardiac dysrhythmias Mild intermittent asthma, unspecified whether complicated (HCC) Gastroesophageal reflux disease without esophagitis Esophageal reflux History of gastric bypass Bariatric surgery status S/P panniculectomy- Primary Other postprocedural status documented in this encounter [facility] note* Diagnosis Establishing care with new [...] Other postprocedural status documented in this encounter [facility] note* Diagnosis Establishing care with new [...] intractable, unspecified migraine type SVT (supraventricular tachycardia) ([facility]) Other specified cardiac dysrhythmias Mild intermittent asthma, unspecified whether complicated (HCC) Gastroesophageal reflux disease without esophagitis Esophageal reflux History of gastric bypass Bariatric surgery status Excess skin- Primary Loose skin documented in this encounter [facility] note* Diagnosis Establishing care with new [...] (BMI) of 50.0 to 59.9 in adult ([facility]) Gastroesophageal reflux disease without esophagitis Esophageal reflux Migraine without status migrainosus, not intractable, unspecified migraine type Mild intermittent asthma, unspecified whether complicated (HCC) SVT (supraventricular tachycardia) ([facility]) Other specified cardiac dysrhythmias Pre-operative examination- Primary Preoperative examination, unspecified Migraine without status migrainosus, not intractable, unspecified migraine type SVT (supraventricular tachycardia) ([facility]) Other specified cardiac dysrhythmias Mild intermittent asthma, unspecified whether complicated ([facility]) Gastroesophageal reflux disease without esophagitis Esophageal reflux History of gastric bypass Bariatric surgery status SVT (supraventricular tachycardia) ([facility])- Primary Other specified cardiac dysrhythmias Mild intermittent asthma, unspecified whether complicated (HCC) Gastroesophageal reflux disease without esophagitis Esophageal reflux History of gastric bypass Bariatric surgery status documented in this encounter [facility] note* Diagnosis Establishing care with new [...] (BMI) of 50.0 to 59.9 in adult ([facility]) Gastroesophageal reflux disease without esophagitis Esophageal reflux Migraine without status migrainosus, not intractable, unspecified migraine type Mild intermittent asthma, unspecified whether complicated (HCC) SVT (supraventricular tachycardia) ([facility]) Other specified cardiac dysrhythmias Pre-operative examination- Primary [...] fibroid Arcuate uterus documented in this encounter [facility] note* Diagnosis Establishing care with new [...] for breast cancer documented in this encounter [facility] note* Diagnosis Establishing care with new [...] of the cervix documented in this encounter [facility] note* Diagnosis Establishing care with new [...] other viral diseases [facility] Diagnosis Establishing care with new doctor, [...] unspecified whether complicated (HCC) SVT (supraventricular tachycardia) ([facility]) Other specified cardiac dysrhythmias Pre-operative examination- Primary Preoperative examination, unspecified Migraine without status migrainosus, not intractable, unspecified migraine type SVT (supraventricular tachycardia) (HCC) Other specified cardiac dysrhythmias Mild intermittent asthma, unspecified whether complicated (HCC) Gastroesophageal reflux disease without esophagitis Esophageal reflux History of gastric bypass Bariatric surgery status Menorrhagia with regular cycle- Primary Excessive or frequent menstruation Dysmenorrhea documented in this encounter [facility] note* Diagnosis Establishing care with new doctor, encounter for- Primary Other reasons for seeking consultation ASTHMA UNSPECIFIED Unspecified asthma Seasonal allergies Allergic rhinitis, cause unspecified Plantar fasciitis Plantar fascial fibromatosis Morbid obesity ([facility]) Morbid obesity Pre-operative examination- Primary Preoperative examination, unspecified Class 3 severe obesity due to excess calories without serious comorbidity with body mass index (BMI) of 50.0 to 59.9 in adult ([facility]) Gastroesophageal reflux disease without esophagitis Esophageal reflux Migraine without status migrainosus, not intractable, unspecified migraine type Mild intermittent asthma, unspecified whether complicated (HCC) SVT (supraventricular tachycardia) ([facility]) Other specified cardiac dysrhythmias Pre-operative examination- Primary Preoperative examination, unspecified Migraine without status migrainosus, not intractable, unspecified migraine type SVT (supraventricular tachycardia) ([facility]) Other specified cardiac dysrhythmias Mild intermittent asthma, unspecified whether complicated (HCC) Gastroesophageal reflux disease without esophagitis Esophageal reflux History of gastric bypass Bariatric surgery status Abnormal uterine bleeding (AUB)- Primary Adenomyosis of uterus documented in this encounter [facility] note* Diagnosis Establishing care with new [...] (BMI) of 50.0 to 59.9 in adult ([facility]) Gastroesophageal reflux disease without esophagitis Esophageal reflux Migraine without status migrainosus, not intractable, unspecified migraine type Mild intermittent asthma, unspecified whether complicated (HCC) SVT (supraventricular tachycardia) ([facility]) Other specified cardiac dysrhythmias Pre-operative examination- Primary [...] * Assessment & Plan Note - Beulah Cmapa MD - 08/24/2024 12:34 PM EDT Associated Problem(s): Arcuate uterus [facility] Diagnosis Establishing care with new [...] unspecified whether complicated (HCC) SVT (supraventricular tachycardia) ([facility]) Other specified cardiac dysrhythmias Pre-operative examination- Primary Preoperative examination, unspecified Migraine without status migrainosus, not intractable, unspecified migraine type SVT (supraventricular tachycardia) ([facility]) Other specified cardiac dysrhythmias Mild intermittent asthma, unspecified whether complicated (HCC) Gastroesophageal reflux disease without esophagitis Esophageal reflux History of gastric bypass Bariatric surgery status Adenomyosis of uterus- Primary Arcuate uterus Intramural uterine fibroid Dysmenorrhea Abnormal uterine bleeding (AUB) Otalgia, left- Primary documented in this encounter [facility] note* Diagnosis Establishing care with new [...] unspecified whether complicated (HCC) SVT (supraventricular tachycardia) ([facility]) Other specified cardiac dysrhythmias Pre-operative examination- Primary Preoperative examination, unspecified Migraine without status migrainosus, not intractable, unspecified migraine type SVT (supraventricular tachycardia) ([facility]) Other specified cardiac dysrhythmias Mild intermittent asthma, unspecified whether complicated (HCC) Gastroesophageal reflux disease without esophagitis Esophageal reflux History of gastric bypass Bariatric surgery status Adenomyosis of uterus- Primary Arcuate uterus Intramural uterine fibroid Dysmenorrhea Abnormal uterine bleeding (AUB) Abnormal uterine bleeding (AUB)- Primary Adenomyosis of uterus Intramural uterine fibroid Menorrhagia with regular cycle Excessive or frequent menstruation documented in this encounter [facility] note* Diagnosis Establishing care with new [...] uterine fibroid Dysmenorrhea Abnormal uterine bleeding (AUB) Postop check- Primary Follow-up examination, following unspecified surgery Postoperative pain Other acute postoperative pain Need for prophylactic vaccination/inoculation against viral disease Need for prophylactic vaccination and inoculation against other viral diseases documented in this encounter [facility] Dis[facility] instructions Additional Instructions This will be treated as an enlarged infected groin lymph node. You will be placed on antibiotic Keflex 4 times a day for 10 days. Very important if this is not getting better you need to follow-up your primary care physician for further evaluation to ensure it is nothing else going on.[facility] Work Phone: Hospital Discharge instructions Additional Instructions Follow-up with your plastic surgeon tomorrow as scheduled. Continue the Bactrim that was written for you by their office. Return to the emergency department with sustained high fever, new or worsening symptoms.[facility] Work Phone: Hospital Discharge instructionsAdditional Instructions Continue bhni-yfl-mcvurnj Tylenol as needed for fever and pain. Follow-up with your primary care provider in the next 3 to 5 days. Return to the emergency department with new or worsening symptoms.[facility] Work Phone: Reason for referral (narrative)* Diagnostic Procedure Only (Routine) - Pending Review Specialty Diagnoses / Procedures Referred By Samra ortiz Referred To Contact [facility] Diagnoses Encounter for screening mammogram for breast cancer Procedures ARUN SCREENING SCREENING MAMMOGRAPHY BI 2-VIEW BREAST INC CAD Maira Escamilla MD [address] [place] [address] [facility] [address] [place] [address] Referral ID Status Reason Start Date Expiration Date Visits Requested Visits Authorized [id number] Pending Review Auto-Generat ed Referral 10/09/2021 11/08/2022 1 1 [place] for referral (narrative)* Outpatient Procedure (Routine) - Closed Specialty Diagnoses / Procedures Referred By Pearlac t Referred To Contact [facility] Diagnoses Lightheaded Procedures ECG COMPLETE ECG ROUTINE ECG W/LEAST 12 LDS W/I&R Maira Escamilla MD [address] [place] [address] [facility] [place] [address] [place] [address] Referral ID Status Reason Start Date Expiration Date V isits Requested Visits Authorized [id number] Closed Auto-Generate d Referral 06/11/2022 06/11/2023 1 1 [place] for referral (narrative)* Diagnostic Procedure Only (Routine) - Closed Specialty Diagnoses / Procedures Referred By Samra ortiz Referred To Contact [facility] Diagnoses Encounter for screening mammogram for breast cancer Procedures ARUN SCREENING SCREENING MAMMOGRAPHY BI 2-VIEW BREAST INC Maira Emerson MD [address] [place] [address] [facility] [address] [place] [address] Referral ID Status Reason Start Date Expiration Date V isits Requested Visits Authorized [id number] Closed Auto-Generate d Referral 10/09/2021 11/08/2022 1 1 [facility] for referral (narrative)* Diagnostic Procedure Only (Routine) - Pending Review Specialty Diagnoses / Procedures Referred By Samra t Referred To Contact [facility] Diagnoses Encounter for screening mammogram for breast cancer Procedures ARUN SCREENING SCREENING MAMMOGRAPHY BI 2-VIEW BREAST INC Maira Emerson MD [address] [place] [address] [facility] [address] [place] [address] Referral ID Status Reason Start Date Expiration Date Visits Requested Visits Authorized [id number] Pending Review Auto-Generat ed Referral 04/15/2023 05/14/2024 1 1 [facility] for referral (narrative)* Diagnostic Procedure Only (Routine) - Authorized Specialty Diagnoses / Procedures Referred By Contac t Referred To Contact [facility] Diagnoses Breast pain Procedures US BREAST LTD LEFT US BREAST UNI REAL TIME WITH IMAGE LIMITED Maira Escamilla MD [address] [place] [address] [facility] [address] [place] [address] Referral ID Status Reason Start Date Expiration Date Visits Requested Visits Authorized [id number] Authorized Auto-Generat ed Referral 10/30/2023 11/28/2024 1 1 * Diagnostic Procedure Only (Routine) - Authorized Specialty Diagnoses / Procedures Referred By Contac t Referred To Contact [facility] Diagnoses Breast pain Procedures US BREAST LTD RIGHT US BREAST UNI REAL TIME WITH IMAGE LIMITED Maira Escamilla MD [address] [place] [address] [facility] [address] [place] [address] Referral ID Status Reason Start Date Expiration Date Visits Requested Visits Authorized [id number] Authorized Auto-Generat ed Referral 10/30/2023 11/28/2024 1 1 * Diagnostic Procedure Only (Routine) - Authorized Specialty Diagnoses / Procedures Referred By Contac t Referred To Contact [facility] Diagnoses Breast pain Procedures ARUN DIAGNOSTIC BILATERAL DIAGNOSTIC MAMMOGRAPHY COMPUTER-AIDED DETCJ BI Maira Escamilla MD [address] [place] [address] [facility] [address] [place] [address] Referral ID Status Reason Start Date Expiration Date Visits Requested Visits Authorized [id number] Authorized Auto-Generat ed Referral 10/30/2023 11/28/2024 1 1 [facility] for referral (narrative)* Diagnostic Procedure Only (Routine) - Closed Specialty Diagnoses / Procedures Referred By Pearlac t Referred To Contact XR IMAGING Diagnoses Pain Procedures XR KNEE GENERAL 4V AP BOTH/PA BOTH/LAT/MERC BILATERAL KNEE AP-WGT/LAT/MERCHANT Pan Hyman MD [address] [place] [address] Xr Imaging [place] [address] Referral ID Status Reason Start Date Expiration Date V isits Requested Visits Authorized [id number] Closed Auto-Generate d Referral 02/22/2021 03/24/2022 1 1 [facility] for referral (narrative)No reason for referral information [facility] Diagnostic Procedure Only (Routine) - Closed Specialty Diagnoses / Procedures Referred By Samra t Referred To Contact [facility] Diagnoses Encounter for screening mammogram for breast cancer Procedures ARUN SCREENING SCREENING MAMMOGRAPHY BI 2-VIEW BREAST INC CAD Maira Escamilla MD [address] [place] [address] [facility] [address] [place] [address] Referral ID Status Reason Start Date Expiration Date V isits Requested Visits Authorized [id number] Closed Auto-Generate d Referral 10/09/2021 11/08/2022 1 1 [facility] for visit Narrative* Outpatient Procedure (Routine) - Closed Specialty Diagnoses / Procedures Referred By Samra t Referred To Contact [facility] Diagnoses Headache, unspecified headache type Vision loss Near syncope Confusion Procedures EPIL EEG ROUTINE ELECTROENCEPHALOGRAM REC COMA/SLEEP ONLY Maira Escamilla MD [address] [place] [address] [facility] [place] [address] [place] [address] Referral ID Status Reason Start Date Expiration Date V isits Requested Visits Authorized [id number] Closed Auto-Generate d Referral 08/25/2023 08/24/2024 1 1 [facility] for visit Narrative* Diagnostic Procedure Only (Routine) - Closed Specialty Diagnoses / Procedures Referred By Contac t Referred To Contact [facility] Diagnoses Menorrhagia with regular cycle Procedures PELVIC US WHI US PELVIC NONOBSTETRIC REAL-TIME IMAGE COMPLETE Makeda Smith, BURN OUT TENDER LACE.WOODS MANAGER [address] [place] [address] Phone: tel: fax:[phone] [facility] [address] [place] [address] Referral ID Status Reason Start Date Expiration Date V isits Requested Visits Authorized [id number] Closed Auto-Generate d Referral 07/12/2024 07/12/2025 1 1 [facility] for visit Narrative* Diagnostic Procedure Only (Routine) - Closed Specialty Diagnoses / Procedures Referred By Samra t Referred To Contact [facility] Diagnoses Encounter for gynecological examination (general) (routine) without abnormal findings Encounter for screening mammogram for breast cancer Procedures ARUN SCREENING W TONIO SCREENING DIGITAL BREAST TOMOSYNTHESIS BI SCREENING MAMMOGRAPHY BI 2-VIEW BREAST INC CAD Makeda Smith, BURN OUT TENDER L[employer].WOODS MANAGER [address] [place] [address] Phone: tel: fax:[phone] [facility] [address] [place] [address] Referral ID Status Reason Start Date Expiration Date V isits Requested Visits Authorized [id number] Closed Auto-Generate d Referral 07/12/2024 08/11/2025 1 1 [facility] Chief Complaint Chief Complaint Description Start Date neck pain Preliminary chief co mplaint data, not yet signed by the author as of Instructions Instruction Description Start Date CompletedPatient advised to follow-up with Primary Care Physician for BMI management. 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 No June 02, 2024 3:41pm Advance Directive Response Recorded Date/ Time Do you have a Healthcare Power of Attending Anesthesiologist? No June 02, 2024 3:41pm Do you have a Healthcare Power of Attending Anesthesiologist? No August 16, 2024 9:00am Advance Directive Response Recorded Date/ Time Do you have a Healthcare Power of Attending Anesthesiologist? No June 02, 2024 3:41pm Do you have a Healthcare Power of Attending Anesthesiologist? No August 25, 2024 11:24am Do you have a Healthcare Power of Attending Anesthesiologist? No August 16, 2024 9:00am Assessments There may be information available, but it has not been provided by the sender. Review of System There may be information available, but it has not been provided by the sender. Family History No Family History Records Found Relationship Condition Age at Onset Recorded Date/T [...] unspecified obesity type (HCC) Alison Jules DO [address] [facility] [place] [id number] Referral ID Status Reason Start Date Expiration Date V isits Requested Visits Authorized [id number] Pending Review 1 1 Referral ID Status Reason Start Date Expiration Date V isits Requested Visits Authorized [id number] Pending Review 1 1 Specialty Diagnoses / Procedures Referred By Contac t Referred To Contact Diagnoses Class 3 severe obesity due to excess calories with body mass index (BMI) of 50.0 to 59.9 in adult, unspecified whether serious comorbidity present (HCC) Weight disorder Cris Mishra B[employer] OUT TENDER [employer]WO[employer]S MANAGER [address] [place] [address] Referral ID Status Reason Start Date Expiration Date Visits Re quested Visits Authorized [id number] Denied 1 1 Specialty Diagnoses / Procedures Referred By Contac t Referred To Contact Dermatology Diagnoses Facial rash Procedures CONSULT TO DERMATOLOGY Norma Nolan, BURN OUT TENDER [employer].WOODS MANAGER [address] [place] [address] Referral ID Status Reason Start Date Expiration Date Visits Requested Visits Authorized [id number] Ref Not Required PCP Requested Referral 08/06/2021 08/06/2022 1 1 Specialty Diagnoses / Procedures Referred By Contac t Referred To Contact Diagnoses Morbid obesity (HCC) Chronic GERD Gastroesophageal reflux disease, unspecified whether esophagitis present Preoperative examination Procedures IN PERSON CONSULT TO PACC Jacinta Daugherty, BURN OUT TENDER LACE.COKE BURNER [address] [place] [address] Referral ID Status Reason Start Date Expiration Date Visits Requested Visits Authorized [id number] Ref Not Required PCP Requested Referral 09/03/2021 12/02/2021 1 1 Specialty Diagnoses / Procedures Referred By Contac t Referred To Contact Diagnoses Allergy, subsequent encounter Maira Escamilla MD [address] [place] [address] Referral ID Status Reason Start Date Expiration Date Visits Re quested Visits Authorized [id number] Closed 1 1 Specialty Diagnoses / Procedures Referred By Contac t Referred To Contact Ophthalmology Diagnoses Vision loss Procedures CONSULT TO OPHTHALMOLOGY OFFICE/OUTPATIENT [facility] 60 MINUTES Maira Escamilla MD [address] [place] [address] Referral ID Status Reason Start Date Expiration Date Visits Requested Visits Authorized [id number] Authorized PCP Requested Referral 08/25/2023 08/24/2024 1 1 Specialty Diagnoses / Procedures Referred By Contac t Referred To Contact [facility] Diagnoses Headache, unspecified headache type Vision loss Near syncope Confusion Procedures EPIL EEG ROUTINE ELECTROENCEPHALOGRAM REC COMA/SLEEP ONLY Maira Escamilla MD [address] [place] [address] [facility] [place] [address] [place] [address] Referral ID Status Reason Start Date Expiration Date Visits Requested Visits Authorized [id number] Authorized Auto-Generat ed Referral 08/25/2023 08/24/2024 1 1 Specialty Diagnoses / Procedures Referred By Contac t Referred To Contact Neurology Diagnoses Headache, unspecified headache type History of migraine Procedures CONSULT TO NEUROLOGY OFFICE/OUTPATIENT [facility] 60 MINUTES Maira Escamilla MD [address] [place] [address] Referral ID Status Reason Start Date Expiration Date Visits Requested Visits Authorized [id number] Authorized PCP Requested Referral 08/25/2023 08/24/2024 1 1 Specialty Diagnoses / Procedures Referred By Contac t Referred To Contact Plastic Surgery Diagnoses Abdominal pannus Procedures CONSULT TO PLASTIC SURGERY OFFICE/OUTPATIENT [facility] 60 MINUTES Alison Jules DO [address] [facility] [address] [place] [address] Referral ID Status Reason Start Date Expiration Date Visits Requested Visits Authorized [id number] Authorized PCP Requested Referral 09/28/2023 12/27/2023 1 [...] 8pm GENERAL August 16, 2024 8:46a m Chief Complaint Admit Date wound June 02, 2024 2:3 8pm GENERAL August 16, 2024 8:46a m Hysterectomy TLH, bilateral salpingectom y, ERAS September 01, 2024 5:29am Reason for Visit Admit Date Abnormal uterine bleeding (AUB) August 5:29am Adenomyosis September 01, 2024 5:29 am Arcuate uterus September 01, 2024 5:29 am Dysmenorrhea September 01, 2024 5:29 am Intramural uterine fibroid September 01 5:29am Postoperative pain September 01, 2024 5:29 am Medications Administered Section Inactive Administered Medications - [...] pannus Procedures CONSULT TO PLASTIC SURGERY OFFICE/OUTPATIENT [facility] 60 MINUTES Alison Jules DO [address] [place] [address] Referral ID Status Reason Start Date Expiration Date V isits Requested Visits Authorized [id number] Closed PCP Requested Referral 09/28/2023 12/27/2023 1 1 Reason Onset Date Comments Patient Education 10/18/2021 Reassessment 10/18/2021 Specialty Diagnoses / Procedures Referred By Samra ortiz Referred To Contact ADMITTING Diagnoses Morbid obesity (HCC) Gastroesophageal reflux disease, unspecified whether esophagitis present Procedures LAPS GSTR RSTCV PX W/BYP JACOB-EN-Y LIMB <150 CM LAPAROSCOPIC GASTRIC RESTRICTIVE SURG W/ BYPASS & JACOB-EN-Y 150CM OR LESS [facility] [address] [place] [address] Referral ID Status Reason Start Date Expiration Date Visits Re quested Visits Authorized [id number] 1 1 Reason For Visit Description Start [...] a call back. Her phone number is [phone]. 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 Reason Comments Cough Chest congestion x1 [facility] 8/22 Reason Onset Date Comments Refill Request 03/20/2023 [...] HIGH MDM 60 MINUTES Maira Escamilla MD [address] [place] [address] Referral ID Status Reason Start Date Expiration Date V isits Requested Visits Authorized [id number] Closed PCP Requested Referral 08/25/2023 08/24/2024 1 1 Reason Comments PHOTOS TAKEN Reason Comments Results Erroneous encounter-disregard Reason Comments Radio Gen RMP Specialty Diagnoses / Procedures Referred By Contac t Referred To Contact XR IMAGING Diagnoses Pain Procedures XR KNEE GENERAL 4V AP BOTH/PA BOTH/LAT/MERC BILATERAL KNEE AP-WGT/LAT/MERCHANT Pan Hyman MD [address] [place] [address] [place] [address] Referral ID Status Reason Start Date Expiration Date V isits Requested Visits Authorized [id number] Closed Auto-Generate d Referral 02/22/2021 03/24/2022 1 [...] Referred By Contac t Referred To Contact [facility] Diagnoses Menorrhagia with regular cycle Procedures ENDOMETRIAL BIOPSY ENDOMETRIAL BX W/WO ENDOCERVIX BX W/O DILAT SPX Beulah Campa MD [address] [place] [address] Phone: tel: fax: [facility] [address] [place] [address] Referral ID Status Reason Start Date Expiration Date V isits Requested Visits Authorized [id number] Closed Auto-Generate d Referral 08/01/2024 08/01/2025 1 1 Reason Comments Menstrual Problem Reason Comments Ear Problem ? insect bite on lef t ear, pain and swelling x 2 days Reason Comments Hysterectomy 09/01/24-Rash/itching on inc ision areas Source Comments (unrecognize d section and content) In the event this informatio n is protected by the Federal Confidentiality of Alcohol and Drug Abuse Patient Records regulations: The Federal rules restrict any use of the information to criminally investigate or prosecute any alcohol or drug abuse patient.[facility] the event this information is protected by the Federal Confidentiality of Alcohol and Drug Abuse Patient Records regulations: The Federal rules restrict any use of the information to criminally investigate or prosecute any alcohol or drug abuse patient.[facility] the event this information is protected by the Federal Confidentiality of Alcohol and Drug Abuse Patient Records regulations: The Federal rules restrict any use of the information to criminally investigate or prosecute any alcohol or drug abuse patient.[facility] the event this information is protected by the Federal Confidentiality of Alcohol and Drug Abuse Patient Records regulations: The Federal rules restrict any use of the information to criminally investigate or prosecute any alcohol or drug abuse patient.[facility] the event this information is protected by the Federal Confidentiality of Alcohol and Drug Abuse Patient Records regulations: The Federal rules restrict any use of the information to criminally investigate or prosecute any alcohol or drug abuse patient.[facility] the event this information is protected by the Federal Confidentiality of Alcohol and Drug Abuse Patient Records regulations: The Federal rules restrict any use of the information to criminally investigate or prosecute any alcohol or drug abuse patient.[facility] the event this information is protected by the Federal Confidentiality of Alcohol and Drug Abuse Patient Records regulations: The Federal rules restrict any use of the information to criminally investigate or prosecute any alcohol or drug abuse patient.[facility] the event this information is protected by the Federal Confidentiality of Alcohol and Drug Abuse Patient Records regulations: The Federal rules restrict any use of the information to criminally investigate or prosecute any alcohol or drug abuse patient.[facility] Hospital[facility] the event this information is protected by the Federal Confidentiality of Alcohol and Drug Abuse Patient Records regulations: The Federal rules restrict any use of the information to criminally investigate or prosecute any alcohol or drug abuse patient.[facility] Hospital[facility] the event this information is protected by the Federal Confidentiality of Alcohol and Drug Abuse Patient Records regulations: The Federal rules restrict any use of the information to criminally investigate or prosecute any alcohol or drug abuse patient.[facility] the event this information is protected by the Federal Confidentiality of Alcohol and Drug Abuse Patient Records regulations: The Federal rules restrict any use of the information to criminally investigate or prosecute any alcohol or drug abuse patient.[facility] Hospital[facility] the event this information is protected by the Federal Confidentiality of Alcohol and Drug Abuse Patient Records regulations: The Federal rules restrict any use of the information to criminally investigate or prosecute any alcohol or drug abuse patient.[facility] Hospital[facility] the event this information is protected by the Federal Confidentiality of Alcohol and Drug Abuse Patient Records regulations: The Federal rules restrict any use of the information to criminally investigate or prosecute any alcohol or drug abuse patient.[facility] Hospital[facility] the event this information is protected by the Federal Confidentiality of Alcohol and Drug Abuse Patient Records regulations: The Federal rules restrict any use of the information to criminally investigate or prosecute any alcohol or drug abuse patient.[facility] Hospital[facility] the event this information is protected by the Federal Confidentiality of Alcohol and Drug Abuse Patient Records regulations: The Federal rules restrict any use of the information to criminally investigate or prosecute any alcohol or drug abuse patient.[facility] HospitalIn the event this information is protected by the Federal Confidentiality of Alcohol and Drug Abuse Patient Records regulations: The Federal rules restrict any use of the information to criminally investigate or prosecute any alcohol or drug abuse patient.[facility] HospitalIn the event this information is protected by the Federal Confidentiality of Alcohol and Drug Abuse Patient Records regulations: The Federal rules restrict any use of the information to criminally investigate or prosecute any alcohol or drug abuse patient.[facility] HospitalIn the event this information is protected by the Federal Confidentiality of Alcohol and Drug Abuse Patient Records regulations: The Federal rules restrict any use of the information to criminally investigate or prosecute any alcohol or drug abuse patient.[facility] HospitalIn the event this information is protected by the Federal Confidentiality of Alcohol and Drug Abuse Patient Records regulations: The Federal rules restrict any use of the information to criminally investigate or prosecute any alcohol or drug abuse patient.[facility] HospitalIn the event this information is protected by the Federal Confidentiality of Alcohol and Drug Abuse Patient Records regulations: The Federal rules restrict any use of the information to criminally investigate or prosecute any alcohol or drug abuse patient.[facility] HospitalIn the event this information is protected by the Federal Confidentiality of Alcohol and Drug Abuse Patient Records regulations: The Federal rules restrict any use of the information to criminally investigate or prosecute any alcohol or drug abuse patient.[facility] HospitalIn the event this information is protected by the Federal Confidentiality of Alcohol and Drug Abuse Patient Records regulations: The Federal rules restrict any use of the information to criminally investigate or prosecute any alcohol or drug abuse patient.[facility] HospitalIn the event this information is protected by the Federal Confidentiality of Alcohol and Drug Abuse Patient Records regulations: The Federal rules restrict any use of the information to criminally investigate or prosecute any alcohol or drug abuse patient.[facility] HospitalIn the event this information is protected by the Federal Confidentiality of Alcohol and Drug Abuse Patient Records regulations: The Federal rules restrict any use of the information to criminally investigate or prosecute any alcohol or drug abuse patient.[facility] HospitalIn the event this information is protected by the Federal Confidentiality of Alcohol and Drug Abuse Patient Records regulations: The Federal rules restrict any use of the information to criminally investigate or prosecute any alcohol or drug abuse patient.[facility] HospitalIn the event this information is protected by the Federal Confidentiality of Alcohol and Drug Abuse Patient Records regulations: The Federal rules restrict any use of the information to criminally investigate or prosecute any alcohol or drug abuse patient.[facility] HospitalIn the event this information is protected by the Federal Confidentiality of Alcohol and Drug Abuse Patient Records regulations: The Federal rules restrict any use of the information to criminally investigate or prosecute any alcohol or drug abuse patient.[facility] HospitalIn the event this information is protected by the Federal Confidentiality of Alcohol and Drug Abuse Patient Records regulations: The Federal rules restrict any use of the information to criminally investigate or prosecute any alcohol or drug abuse patient.[facility] HospitalIn the event this information is protected by the Federal Confidentiality of Alcohol and Drug Abuse Patient Records regulations: The Federal rules restrict any use of the information to criminally investigate or prosecute any alcohol or drug abuse patient.[facility] HospitalIn the event this information is protected by the Federal Confidentiality of Alcohol and Drug Abuse Patient Records regulations: The Federal rules restrict any use of the information to criminally investigate or prosecute any alcohol or drug abuse patient.[facility] HospitalIn the event this information is protected by the Federal Confidentiality of Alcohol and Drug Abuse Patient Records regulations: The Federal rules restrict any use of the information to criminally investigate or prosecute any alcohol or drug abuse patient.[facility] HospitalIn the event this information is protected by the Federal Confidentiality of Alcohol and Drug Abuse Patient Records regulations: The Federal rules restrict any use of the information to criminally investigate or prosecute any alcohol or drug abuse patient.[facility] HospitalIn the event this information is protected by the Federal Confidentiality of Alcohol and Drug Abuse Patient Records regulations: The Federal rules restrict any use of the information to criminally investigate or prosecute any alcohol or drug abuse patient.[facility] HospitalIn the event this information is protected by the Federal Confidentiality of Alcohol and Drug Abuse Patient Records regulations: The Federal rules restrict any use of the information to criminally investigate or prosecute any alcohol or drug abuse patient.[facility] HospitalIn the event this information is protected by the Federal Confidentiality of Alcohol and Drug Abuse Patient Records regulations: The Federal rules restrict any use of the information to criminally investigate or prosecute any alcohol or drug abuse patient.[facility] HospitalIn the event this information is protected by the Federal Confidentiality of Alcohol and Drug Abuse Patient Records regulations: The Federal rules restrict any use of the information to criminally investigate or prosecute any alcohol or drug abuse patient.[facility] HospitalIn the event this information is protected by the Federal Confidentiality of Alcohol and Drug Abuse Patient Records regulations: The Federal rules restrict any use of the information to criminally investigate or prosecute any alcohol or drug abuse patient.[facility] HospitalIn the event this information is protected by the Federal Confidentiality of Alcohol and Drug Abuse Patient Records regulations: The Federal rules restrict any use of the information to criminally investigate or prosecute any alcohol or drug abuse patient.[facility] HospitalIn the event this information is protected by the Federal Confidentiality of Alcohol and Drug Abuse Patient Records regulations: The Federal rules restrict any use of the information to criminally investigate or prosecute any alcohol or drug abuse patient.[facility] HospitalIn the event this information is protected by the Federal Confidentiality of Alcohol and Drug Abuse Patient Records regulations: The Federal rules restrict any use of the information to criminally investigate or prosecute any alcohol or drug abuse patient.[facility] HospitalIn the event this information is protected by the Federal Confidentiality of Alcohol and Drug Abuse Patient Records regulations: The Federal rules restrict any use of the information to criminally investigate or prosecute any alcohol or drug abuse patient.[facility] HospitalIn the event this information is protected by the Federal Confidentiality of Alcohol and Drug Abuse Patient Records regulations: The Federal rules restrict any use of the information to criminally investigate or prosecute any alcohol or drug abuse patient.[facility] HospitalIn the event this information is protected by the Federal Confidentiality of Alcohol and Drug Abuse Patient Records regulations: The Federal rules restrict any use of the information to criminally investigate or prosecute any alcohol or drug abuse patient.[facility] HospitalIn the event this information is protected by the Federal Confidentiality of Alcohol and Drug Abuse Patient Records regulations: The Federal rules restrict any use of the information to criminally investigate or prosecute any alcohol or drug abuse patient.[facility] HospitalIn the event this information is protected by the Federal Confidentiality of Alcohol and Drug Abuse Patient Records regulations: The Federal rules restrict any use of the information to criminally investigate or prosecute any alcohol or drug abuse patient.[facility] HospitalIn the event this information is protected by the Federal Confidentiality of Alcohol and Drug Abuse Patient Records regulations: The Federal rules restrict any use of the information to criminally investigate or prosecute any alcohol or drug abuse patient.[facility] HospitalIn the event this information is protected by the Federal Confidentiality of Alcohol and Drug Abuse Patient Records regulations: The Federal rules restrict any use of the information to criminally investigate or prosecute any alcohol or drug abuse patient.[facility] HospitalIn the event this information is protected by the Federal Confidentiality of Alcohol and Drug Abuse Patient Records regulations: The Federal rules restrict any use of the information to criminally investigate or prosecute any alcohol or drug abuse patient.[facility] HospitalIn the event this information is protected by the Federal Confidentiality of Alcohol and Drug Abuse Patient Records regulations: The Federal rules restrict any use of the information to criminally investigate or prosecute any alcohol or drug abuse patient.[facility] HospitalIn the event this information is protected by the Federal Confidentiality of Alcohol and Drug Abuse Patient Records regulations: The Federal rules restrict any use of the information to criminally investigate or prosecute any alcohol or drug abuse patient.[facility] HospitalIn the event this information is protected by the Federal Confidentiality of Alcohol and Drug Abuse Patient Records regulations: The Federal rules restrict any use of the information to criminally investigate or prosecute any alcohol or drug abuse patient.[facility] HospitalIn the event this information is protected by the Federal Confidentiality of Alcohol and Drug Abuse Patient Records regulations: The Federal rules restrict any use of the information to criminally investigate or prosecute any alcohol or drug abuse patient.[facility] HospitalIn the event this information is protected by the Federal Confidentiality of Alcohol and Drug Abuse Patient Records regulations: The Federal rules restrict any use of the information to criminally investigate or prosecute any alcohol or drug abuse patient.[facility] HospitalIn the event this information is protected by the Federal Confidentiality of Alcohol and Drug Abuse Patient Records regulations: The Federal rules restrict any use of the information to criminally investigate or prosecute any alcohol or drug abuse patient.[facility] HospitalIn the event this information is protected by the Federal Confidentiality of Alcohol and Drug Abuse Patient Records regulations: The Federal rules restrict any use of the information to criminally investigate or prosecute any alcohol or drug abuse patient.[facility] HospitalIn the event this information is protected by the Federal Confidentiality of Alcohol and Drug Abuse Patient Records regulations: The Federal rules restrict any use of the information to criminally investigate or prosecute any alcohol or drug abuse patient.[facility] HospitalIn the event this information is protected by the Federal Confidentiality of Alcohol and Drug Abuse Patient Records regulations: The Federal rules restrict any use of the information to criminally investigate or prosecute any alcohol or drug abuse patient.[facility] HospitalIn the event this information is protected by the Federal Confidentiality of Alcohol and Drug Abuse Patient Records regulations: The Federal rules restrict any use of the information to criminally investigate or prosecute any alcohol or drug abuse patient.[facility] HospitalIn the event this information is protected by the Federal Confidentiality of Alcohol and Drug Abuse Patient Records regulations: The Federal rules restrict any use of the information to criminally investigate or prosecute any alcohol or drug abuse patient.[facility] HospitalIn the event this information is protected by the Federal Confidentiality of Alcohol and Drug Abuse Patient Records regulations: The Federal rules restrict any use of the information to criminally investigate or prosecute any alcohol or drug abuse patient.[facility] HospitalIn the event this information is protected by the Federal Confidentiality of Alcohol and Drug Abuse Patient Records regulations: The Federal rules restrict any use of the information to criminally investigate or prosecute any alcohol or drug abuse patient.[facility] HospitalIn the event this information is protected by the Federal Confidentiality of Alcohol and Drug Abuse Patient Records regulations: The Federal rules restrict any use of the information to criminally investigate or prosecute any alcohol or drug abuse patient.[facility] HospitalIn the event this information is protected by the Federal Confidentiality of Alcohol and Drug Abuse Patient Records regulations: The Federal rules restrict any use of the information to criminally investigate or prosecute any alcohol or drug abuse patient.[facility] HospitalIn the event this information is protected by the Federal Confidentiality of Alcohol and Drug Abuse Patient Records regulations: The Federal rules restrict any use of the information to criminally investigate or prosecute any alcohol or drug abuse patient.[facility] HospitalIn the event this information is protected by the Federal Confidentiality of Alcohol and Drug Abuse Patient Records regulations: The Federal rules restrict any use of the information to criminally investigate or prosecute any alcohol or drug abuse patient.[facility] HospitalIn the event this information is protected by the Federal Confidentiality of Alcohol and Drug Abuse Patient Records regulations: The Federal rules restrict any use of the information to criminally investigate or prosecute any alcohol or drug abuse patient.[facility] HospitalIn the event this information is protected by the Federal Confidentiality of Alcohol and Drug Abuse Patient Records regulations: The Federal rules restrict any use of the information to criminally investigate or prosecute any alcohol or drug abuse patient.[facility] HospitalIn the event this information is protected by the Federal Confidentiality of Alcohol and Drug Abuse Patient Records regulations: The Federal rules restrict any use of the information to criminally investigate or prosecute any alcohol or drug abuse patient.[facility] HospitalIn the event this information is protected by the Federal Confidentiality of Alcohol and Drug Abuse Patient Records regulations: The Federal rules restrict any use of the information to criminally investigate or prosecute any alcohol or drug abuse patient.[facility] HospitalIn the event this information is protected by the Federal Confidentiality of Alcohol and Drug Abuse Patient Records regulations: The Federal rules restrict any use of the information to criminally investigate or prosecute any alcohol or drug abuse patient.[facility] HospitalIn the event this information is protected by the Federal Confidentiality of Alcohol and Drug Abuse Patient Records regulations: The Federal rules restrict any use of the information to criminally investigate or prosecute any alcohol or drug abuse patient.[facility] HospitalIn the event this information is protected by the Federal Confidentiality of Alcohol and Drug Abuse Patient Records regulations: The Federal rules restrict any use of the information to criminally investigate or prosecute any alcohol or drug abuse patient.[facility] HospitalIn the event this information is protected by the Federal Confidentiality of Alcohol and Drug Abuse Patient Records regulations: The Federal rules restrict any use of the information to criminally investigate or prosecute any alcohol or drug abuse patient.[facility] HospitalIn the event this information is protected by the Federal Confidentiality of Alcohol and Drug Abuse Patient Records regulations: The Federal rules restrict any use of the information to criminally investigate or prosecute any alcohol or drug abuse patient.[facility] HospitalIn the event this information is protected by the Federal Confidentiality of Alcohol and Drug Abuse Patient Records regulations: The Federal rules restrict any use of the information to criminally investigate or prosecute any alcohol or drug abuse patient.[facility] HospitalIn the event this information is protected by the Federal Confidentiality of Alcohol and Drug Abuse Patient Records regulations: The Federal rules restrict any use of the information to criminally investigate or prosecute any alcohol or drug abuse patient.[facility] HospitalIn the event this information is protected by the Federal Confidentiality of Alcohol and Drug Abuse Patient Records regulations: The Federal rules restrict any use of the information to criminally investigate or prosecute any alcohol or drug abuse patient.[facility] HospitalIn the event this information is protected by the Federal Confidentiality of Alcohol and Drug Abuse Patient Records regulations: The Federal rules restrict any use of the information to criminally investigate or prosecute any alcohol or drug abuse patient.[facility] HospitalIn the event this information is protected by the Federal Confidentiality of Alcohol and Drug Abuse Patient Records regulations: The Federal rules restrict any use of the information to criminally investigate or prosecute any alcohol or drug abuse patient.[facility] HospitalIn the event this information is protected by the Federal Confidentiality of Alcohol and Drug Abuse Patient Records regulations: The Federal rules restrict any use of the information to criminally investigate or prosecute any alcohol or drug abuse patient.[facility] HospitalIn the event this information is protected by the Federal Confidentiality of Alcohol and Drug Abuse Patient Records regulations: The Federal rules restrict any use of the information to criminally investigate or prosecute any alcohol or drug abuse patient.[facility] HospitalIn the event this information is protected by the Federal Confidentiality of Alcohol and Drug Abuse Patient Records regulations: The Federal rules restrict any use of the information to criminally investigate or prosecute any alcohol or drug abuse patient.[facility] HospitalIn the event this information is protected by the Federal Confidentiality of Alcohol and Drug Abuse Patient Records regulations: The Federal rules restrict any use of the information to criminally investigate or prosecute any alcohol or drug abuse patient.[facility] HospitalIn the event this information is protected by the Federal Confidentiality of Alcohol and Drug Abuse Patient Records regulations: The Federal rules restrict any use of the information to criminally investigate or prosecute any alcohol or drug abuse patient.[facility] HospitalIn the event this information is protected by the Federal Confidentiality of Alcohol and Drug Abuse Patient Records regulations: The Federal rules restrict any use of the information to criminally investigate or prosecute any alcohol or drug abuse patient.[facility] HospitalIn the event this information is protected by the Federal Confidentiality of Alcohol and Drug Abuse Patient Records regulations: The Federal rules restrict any use of the information to criminally investigate or prosecute any alcohol or drug abuse patient.[facility] HospitalIn the event this information is protected by the Federal Confidentiality of Alcohol and Drug Abuse Patient Records regulations: The Federal rules restrict any use of the information to criminally investigate or prosecute any alcohol or drug abuse patient.[facility] HospitalIn the event this information is protected by the Federal Confidentiality of Alcohol and Drug Abuse Patient Records regulations: The Federal rules restrict any use of the information to criminally investigate or prosecute any alcohol or drug abuse patient.[facility] HospitalIn the event this information is protected by the Federal Confidentiality of Alcohol and Drug Abuse Patient Records regulations: The Federal rules restrict any use of the information to criminally investigate or prosecute any alcohol or drug abuse patient.[facility] HospitalIn the event this information is protected by the Federal Confidentiality of Alcohol and Drug Abuse Patient Records regulations: The Federal rules restrict any use of the information to criminally investigate or prosecute any alcohol or drug abuse patient.[facility] HospitalIn the event this information is protected by the Federal Confidentiality of Alcohol and Drug Abuse Patient Records regulations: The Federal rules restrict any use of the information to criminally investigate or prosecute any alcohol or drug abuse patient.[facility] HospitalIn the event this information is protected by the Federal Confidentiality of Alcohol and Drug Abuse Patient Records regulations: The Federal rules restrict any use of the information to criminally investigate or prosecute any alcohol or drug abuse patient.[facility] HospitalIn the event this information is protected by the Federal Confidentiality of Alcohol and Drug Abuse Patient Records regulations: The Federal rules restrict any use of the information to criminally investigate or prosecute any alcohol or drug abuse patient.[facility] HospitalIn the event this information is protected by the Federal Confidentiality of Alcohol and Drug Abuse Patient Records regulations: The Federal rules restrict any use of the information to criminally investigate or prosecute any alcohol or drug abuse patient.[facility] HospitalIn the event this information is protected by the Federal Confidentiality of Alcohol and Drug Abuse Patient Records regulations: The Federal rules restrict any use of the information to criminally investigate or prosecute any alcohol or drug abuse patient.[facility] HospitalIn the event this information is protected by the Federal Confidentiality of Alcohol and Drug Abuse Patient Records regulations: The Federal rules restrict any use of the information to criminally investigate or prosecute any alcohol or drug abuse patient.[facility] HospitalIn the event this information is protected by the Federal Confidentiality of Alcohol and Drug Abuse Patient Records regulations: The Federal rules restrict any use of the information to criminally investigate or prosecute any alcohol or drug abuse patient.[facility] HospitalIn the event this information is protected by the Federal Confidentiality of Alcohol and Drug Abuse Patient Records regulations: The Federal rules restrict any use of the information to criminally investigate or prosecute any alcohol or drug abuse patient.[facility] HospitalIn the event this information is protected by the Federal Confidentiality of Alcohol and Drug Abuse Patient Records regulations: The Federal rules restrict any use of the information to criminally investigate or prosecute any alcohol or drug abuse patient.[facility] HospitalIn the event this information is protected by the Federal Confidentiality of Alcohol and Drug Abuse Patient Records regulations: The Federal rules restrict any use of the information to criminally investigate or prosecute any alcohol or drug abuse patient.[facility] HospitalIn the event this information is protected by the Federal Confidentiality of Alcohol and Drug Abuse Patient Records regulations: The Federal rules restrict any use of the information to criminally investigate or prosecute any alcohol or drug abuse patient.[facility] HospitalIn the event this information is protected by the Federal Confidentiality of Alcohol and Drug Abuse Patient Records regulations: The Federal rules restrict any use of the information to criminally investigate or prosecute any alcohol or drug abuse patient.[facility] HospitalIn the event this information is protected by the Federal Confidentiality of Alcohol and Drug Abuse Patient Records regulations: The Federal rules restrict any use of the information to criminally investigate or prosecute any alcohol or drug abuse patient.[facility] HospitalIn the event this information is protected by the Federal Confidentiality of Alcohol and Drug Abuse Patient Records regulations: The Federal rules restrict any use of the information to criminally investigate or prosecute any alcohol or drug abuse patient.[facility] HospitalIn the event this information is protected by the Federal Confidentiality of Alcohol and Drug Abuse Patient Records regulations: The Federal rules restrict any use of the information to criminally investigate or prosecute any alcohol or drug abuse patient.[facility] HospitalIn the event this information is protected by the Federal Confidentiality of Alcohol and Drug Abuse Patient Records regulations: The Federal rules restrict any use of the information to criminally investigate or prosecute any alcohol or drug abuse patient.[facility] HospitalIn the event this information is protected by the Federal Confidentiality of Alcohol and Drug Abuse Patient Records regulations: The Federal rules restrict any use of the information to criminally investigate or prosecute any alcohol or drug abuse patient.[facility] HospitalIn the event this information is protected by the Federal Confidentiality of Alcohol and Drug Abuse Patient Records regulations: The Federal rules restrict any use of the information to criminally investigate or prosecute any alcohol or drug abuse patient.[facility] HospitalIn the event this information is protected by the Federal Confidentiality of Alcohol and Drug Abuse Patient Records regulations: The Federal rules restrict any use of the information to criminally investigate or prosecute any alcohol or drug abuse patient.[facility] HospitalIn the event this information is protected by the Federal Confidentiality of Alcohol and Drug Abuse Patient Records regulations: The Federal rules restrict any use of the information to criminally investigate or prosecute any alcohol or drug abuse patient.[facility] HospitalIn the event this information is protected by the Federal Confidentiality of Alcohol and Drug Abuse Patient Records regulations: The Federal rules restrict any use of the information to criminally investigate or prosecute any alcohol or drug abuse patient.[facility] HospitalIn the event this information is protected by the Federal Confidentiality of Alcohol and Drug Abuse Patient Records regulations: The Federal rules restrict any use of the information to criminally investigate or prosecute any alcohol or drug abuse patient.[facility] HospitalIn the event this information is protected by the Federal Confidentiality of Alcohol and Drug Abuse Patient Records regulations: The Federal rules restrict any use of the information to criminally investigate or prosecute any alcohol or drug abuse patient.[facility] HospitalIn the event this information is protected by the Federal Confidentiality of Alcohol and Drug Abuse Patient Records regulations: The Federal rules restrict any use of the information to criminally investigate or prosecute any alcohol or drug abuse patient.[facility] HospitalIn the event this information is protected by the Federal Confidentiality of Alcohol and Drug Abuse Patient Records regulations: The Federal rules restrict any use of the information to criminally investigate or prosecute any alcohol or drug abuse patient.[facility] HospitalIn the event this information is protected by the Federal Confidentiality of Alcohol and Drug Abuse Patient Records regulations: The Federal rules restrict any use of the information to criminally investigate or prosecute any alcohol or drug abuse patient.[facility] HospitalIn the event this information is protected by the Federal Confidentiality of Alcohol and Drug Abuse Patient Records regulations: The Federal rules restrict any use of the information to criminally investigate or prosecute any alcohol or drug abuse patient.[facility] HospitalIn the event this information is protected by the Federal Confidentiality of Alcohol and Drug Abuse Patient Records regulations: The Federal rules restrict any use of the information to criminally investigate or prosecute any alcohol or drug abuse patient.[facility] HospitalIn the event this information is protected by the Federal Confidentiality of Alcohol and Drug Abuse Patient Records regulations: The Federal rules restrict any use of the information to criminally investigate or prosecute any alcohol or drug abuse patient.[facility] HospitalIn the event this information is protected by the Federal Confidentiality of Alcohol and Drug Abuse Patient Records regulations: The Federal rules restrict any use of the information to criminally investigate or prosecute any alcohol or drug abuse patient.[facility] HospitalIn the event this information is protected by the Federal Confidentiality of Alcohol and Drug Abuse Patient Records regulations: The Federal rules restrict any use of the information to criminally investigate or prosecute any alcohol or drug abuse patient.[facility] HospitalIn the event this information is protected by the Federal Confidentiality of Alcohol and Drug Abuse Patient Records regulations: The Federal rules restrict any use of the information to criminally investigate or prosecute any alcohol or drug abuse patient.[facility] HospitalIn the event this information is protected by the Federal Confidentiality of Alcohol and Drug Abuse Patient Records regulations: The Federal rules restrict any use of the information to criminally investigate or prosecute any alcohol or drug abuse patient.[facility] HospitalIn the event this information is protected by the Federal Confidentiality of Alcohol and Drug Abuse Patient Records regulations: The Federal rules restrict any use of the information to criminally investigate or prosecute any alcohol or drug abuse patient.[facility] HospitalIn the event this information is protected by the Federal Confidentiality of Alcohol and Drug Abuse Patient Records regulations: The Federal rules restrict any use of the information to criminally investigate or prosecute any alcohol or drug abuse patient.[facility] HospitalIn the event this information is protected by the Federal Confidentiality of Alcohol and Drug Abuse Patient Records regulations: The Federal rules restrict any use of the information to criminally investigate or prosecute any alcohol or drug abuse patient.[facility] HospitalIn the event this information is protected by the Federal Confidentiality of Alcohol and Drug Abuse Patient Records regulations: The Federal rules restrict any use of the information to criminally investigate or prosecute any alcohol or drug abuse patient.[facility] HospitalIn the event this information is protected by the Federal Confidentiality of Alcohol and Drug Abuse Patient Records regulations: The Federal rules restrict any use of the information to criminally investigate or prosecute any alcohol or drug abuse patient.[facility] HospitalIn the event this information is protected by the Federal Confidentiality of Alcohol and Drug Abuse Patient Records regulations: The Federal rules restrict any use of the information to criminally investigate or prosecute any alcohol or drug abuse patient.[facility] HospitalIn the event this information is protected by the Federal Confidentiality of Alcohol and Drug Abuse Patient Records regulations: The Federal rules restrict any use of the information to criminally investigate or prosecute any alcohol or drug abuse patient.[facility] HospitalIn the event this information is protected by the Federal Confidentiality of Alcohol and Drug Abuse Patient Records regulations: The Federal rules restrict any use of the information to criminally investigate or prosecute any alcohol or drug abuse patient.[facility] HospitalIn the event this information is protected by the Federal Confidentiality of Alcohol and Drug Abuse Patient Records regulations: The Federal rules restrict any use of the information to criminally investigate or prosecute any alcohol or drug abuse patient.[facility] HospitalIn the event this information is protected by the Federal Confidentiality of Alcohol and Drug Abuse Patient Records regulations: The Federal rules restrict any use of the information to criminally investigate or prosecute any alcohol or drug abuse patient.[facility] HospitalIn the event this information is protected by the Federal Confidentiality of Alcohol and Drug Abuse Patient Records regulations: The Federal rules restrict any use of the information to criminally investigate or prosecute any alcohol or drug abuse patient.[facility] HospitalIn the event this information is protected by the Federal Confidentiality of Alcohol and Drug Abuse Patient Records regulations: The Federal rules restrict any use of the information to criminally investigate or prosecute any alcohol or drug abuse patient.[facility] HospitalIn the event this information is protected by the Federal Confidentiality of Alcohol and Drug Abuse Patient Records regulations: The Federal rules restrict any use of the information to criminally investigate or prosecute any alcohol or drug abuse patient.[facility] HospitalIn the event this information is protected by the Federal Confidentiality of Alcohol and Drug Abuse Patient Records regulations: The Federal rules restrict any use of the information to criminally investigate or prosecute any alcohol or drug abuse patient.[facility] HospitalIn the event this information is protected by the Federal Confidentiality of Alcohol and Drug Abuse Patient Records regulations: The Federal rules restrict any use of the information to criminally investigate or prosecute any alcohol or drug abuse patient.[facility] Care Teams (unrecognized sec tion and content) Primer And Powder Canning Leader Relationship Specialty Start Date End Date Maira Escamilla MD [address] [place] [address] PCP - General Family Practice 09/16/18 Primer And Powder Canning Leader Relationship Specialty Start Date End Date Maira Escamilla MD [facility] [place] [address] PCP - General Family Practice 09/16/18 Primer And Powder Canning Leader Relationship Specialty Start Date End Date Maira Escamilla MD [facility] [place] [address] PCP - General Family Practice 09/16/18 Primer And Powder Canning Leader Relationship Specialty Start Date End Date Maira Escamilla MD [facility] [place] [address] PCP - General Family Practice 09/16/18 Primer And Powder Canning Leader Relationship Specialty Start Date End Date Maira Escamilla MD [facility] [place] [address] PCP - General Family Practice 09/16/18 Primer And Powder Canning Leader Relationship Specialty Start Date End Date Maira Escamilla MD [address] [place] [address] PCP - General Family Practice 09/16/18 Primer And Powder Canning Leader Relationship Specialty Start Date End Date Maira Escamilla MD [address] [place] [address] PCP - General Family Practice 09/16/18 Primer And Powder Canning Leader Relationship Specialty Start Date End Date Maira Escamilla MD [address] [place] [address] PCP - General Family Practice 09/16/18 Primer And Powder Canning Leader Relationship Specialty Start Date End Date Maira Escamilla MD [address] [place] [address] PCP - General Family Practice 09/16/18 Primer And Powder Canning Leader Relationship Specialty Start Date End Date Maira Escamilla MD [address] [place] [address] PCP - General Family Practice 09/16/18 Primer And Powder Canning Leader Relationship Specialty Start Date End Date Maira Escamilla MD [address] [place] [address] PCP - General Family Practice 09/16/18 Primer And Powder Canning Leader Relationship Specialty Start Date End Date Maira Escamilla MD [address] [place] [address] PCP - General Family Practice 09/16/18 Primer And Powder Canning Leader Relationship Specialty Start Date End Date Maira Escamilla MD [address] [place] [address] PCP - General Family Practice 09/16/18 Primer And Powder Canning Leader Relationship Specialty Start Date End Date Maira Escamilla MD [address] [place] [address] PCP - General Family Practice 09/16/18 Primer And Powder Canning Leader Relationship Specialty Start Date End Date Maira Escamilla MD [address] [place] [address] PCP - General Family Practice 09/16/18 Primer And Powder Canning Leader Relationship Specialty Start Date End Date Maira Escamilla MD [address] [place] [address] PCP - General Family Practice 09/16/18 Primer And Powder Canning Leader Relationship Specialty Start Date End Date Maira Escamilla MD [address] [place] [address] PCP - General Family Practice 09/16/18 Primer And Powder Canning Leader Relationship Specialty Start Date End Date Maira Escamilla MD [address] [place] [address] PCP - General Family Practice 09/16/18 Primer And Powder Canning Leader Relationship Specialty Start Date End Date Maira Escamilla MD [address] [place] [address] PCP - General Family Practice 09/16/18 Primer And Powder Canning Leader Relationship Specialty Start Date End Date Maira Escamilla MD [address] [place] [address] PCP - General Family Practice 09/16/18 Primer And Powder Canning Leader Relationship Specialty Start Date End Date Maira Escamilla MD [address] [place] [address] PCP - General Family Practice 09/16/18 Primer And Powder Canning Leader Relationship Specialty Start Date End Date Maira Escamilla MD [address] [place] [address] PCP - General Family Medicine 09/16/18 Primer And Powder Canning Leader Relationship Specialty Start Date End Date Maira Escamilla MD [address] [place] [address] PCP - General Family Medicine 09/16/18 Primer And Powder Canning Leader Relationship Specialty Start Date End Date Maira Escamilla MD [address] [place] [address] PCP - General Family Medicine 09/16/18 Primer And Powder Canning Leader Relationship Specialty Start Date End Date Maira Escamilla MD [address] [place] [address] PCP - General Family Medicine 09/16/18 Primer And Powder Canning Leader Relationship Specialty Start Date End Date Maira Escamilla MD [address] [place] [address] PCP - General Family Medicine 09/16/18 Primer And Powder Canning Leader Relationship Specialty Start Date End Date Maira Escamilla MD [address] [place] [address] PCP - General Family Medicine 09/16/18 Primer And Powder Canning Leader Relationship Specialty Start Date End Date Maira Escamilla MD [address] [place] [address] PCP - General Family Medicine 09/16/18 Primer And Powder Canning Leader Relationship Specialty Start Date End Date Maira Escamilla MD [address] [place] [address] PCP - General Family Medicine 09/16/18 Primer And Powder Canning Leader Relationship Specialty Start Date End Date Maira Escamilla MD [address] [place] [address] PCP - General Family Medicine 09/16/18 Primer And Powder Canning Leader Relationship Specialty Start Date End Date Maira Escamilla MD [address] [place] [address] PCP - General Family Medicine 09/16/18 Primer And Powder Canning Leader Relationship Specialty Start Date End Date Maira Escamilla MD [address] [place] [address] PCP - General Family Medicine 09/16/18 Primer And Powder Canning Leader Relationship Specialty Start Date End Date Maira Escamilla MD [address] [place] [address] PCP - General Family Medicine 09/16/18 Primer And Powder Canning Leader Relationship Specialty Start Date End Date Maira Escamilla MD [address] [place], [place] [address] PCP - General Family Medicine 09/16/18 Primer And Powder Canning Leader Relationship Specialty Start Date End Date Maira Escamilla MD [address] [place], [place] [address] PCP - General Family Medicine 09/16/18 Primer And Powder Canning Leader Relationship Specialty Start Date End Date Maira Escamilla MD [address] [place] [address] PCP - General Family Medicine 09/16/18 Team Status: Active Member Role Status Dates Dr. Maira Escamilla MD Family Provider Active Dr. Maira Escamilla MD Primary Care Provider Active Team Status: Inactive Member Role Status Dates Dr. Maira Escamilla MD Primary Care Provider Active Dr. Abhishek Crowder MD Emergency Provider Active [employer] Pow[employer] Canning Leader Relationship Specialty Start Date End Date Maira Escamilla MD [address] [place], [place] [address] PCP - General Family Medicine 09/16/18 Primer And Powder Canning Leader Relationship Specialty Start Date End Date Maira Escamilla MD [address] [place], [place] [address] PCP - General Family Medicine 09/16/18 Primer And Powder Canning Leader Relationship Specialty Start Date End Date Maira Escamilla MD [address] [place], [place] [address] PCP - General Family Medicine 09/16/18 Team [...] Dr. Jose Salgado MD Emergency Provider Active Primer And Powder Canning Leader Relationship Specialty Start Date End Date Maira Escamilla MD [address] [place] [address] PCP - General Family Medicine 09/16/18 Primer And Powder Canning Leader Relationship Specialty Start Date End Date Maira Escamilla MD [address] [place] [address] PCP - General Family Medicine 09/16/18 Primer And Powder Canning Leader Relationship Specialty Start Date End Date Maira Escamilla MD [address] [place] [address] PCP - General Family Medicine 09/16/18 Primer And Powder Canning Leader Relationship Specialty Start Date End Date Maira Escamilla MD [address] [place] [address] PCP - General Family Medicine 09/16/18 Primer And Powder Canning Leader Relationship Specialty Start Date End Date Maira Escamilla MD [address] [place] [address] PCP - General Family Medicine 09/16/18 Primer And Powder Canning Leader Relationship Specialty Start Date End Date Maira Escamilla MD [address] [place] [address] PCP - General Family Medicine 09/16/18 Primer And Powder Canning Leader Relationship Specialty Start Date End Date Maira Escamilla MD [address] [place] [address] PCP - General Family Medicine 09/16/18 Primer And Powder Canning Leader Relationship Specialty Start Date End Date Maira Escamilla MD [address] [place] [address] PCP - General Family Medicine 09/16/18 Primer And Powder Canning Leader Relationship Specialty Start Date End Date Maira Escamilla MD [address] [place] [address] PCP - General Family Medicine 09/16/18 Primer And Powder Canning Leader Relationship Specialty Start Date End Date Maira Escamilla MD [address] [place] [address] PCP - General Family Medicine 09/16/18 Primer And Powder Canning Leader Relationship Specialty Start Date End Date Maira Escamilla MD [address] [place] [address] PCP - General Family Medicine 09/16/18 Primer And Powder Canning Leader Relationship Specialty Start Date End Date Maira Escamilla MD [address] [place] [address] PCP - General Family Medicine 09/16/18 Primer And Powder Canning Leader Relationship Specialty Start Date End Date Maira Escamilla MD [address] [place] [address] PCP - General Family Medicine 09/16/18 Primer And Powder Canning Leader Relationship Specialty Start Date End Date Maira Escamilla MD [address] [place] [address] PCP - General Family Medicine 09/16/18 Primer And Powder Canning Leader Relationship Specialty Start Date End Date Maira Escamilla MD [address] [place] [address] PCP - General Family Medicine 09/16/18 Primer And Powder Canning Leader Relationship Specialty Start Date End Date Maira Escamilla MD [address] [place] [address] PCP - General Family Medicine 09/16/18 Primer And Powder Canning Leader Relationship Specialty Start Date End Date Maira Escamilla MD [address] [place] [address] PCP - General Family Medicine 09/16/18 Primer And Powder Canning Leader Relationship Specialty Start Date End Date Maira Escamilla MD [address] [place] [address] PCP - General Family Medicine 09/16/18 Primer And Powder Canning Leader Relationship Specialty Start Date End Date Maira Escamilla MD [address] [place] [address] PCP - General Family Medicine 09/16/18 Viviana Marie, BURN OUT TENDER LACE.WOODS MANAGER [address] [place] [address] Strategy Specialist Family Medicine 01/18/24 Anna Nino BURN OUT TENDER LACE.WOODS MANAGER [address] [place] [address] Strategy Specialist Family Medicine 01/18/24 Primer And Powder Canning Leader Relationship Specialty Start Date End Date Maira Escamilla MD [address] [place] [address] PCP - General Family Medicine 09/16/18 Viviana Marie BURN OUT TENDER LACE.WOODS MANAGER [address] [place] [address] Strategy Specialist Family Medicine 01/18/24 Anna Nino BURN OUT TENDER LACE.WOODS MANAGER [address] [place] [address] Strategy Specialist Family [facility] 01/18/24 Primer And Powder Canning Leader Relationship Specialty Start Date End Date Maira Escamilla MD [address] [place] [address] PCP - General Family Medicine 09/16/18 Viviana Marie APRN.WOODS MANAGER [address] [place] [address] Strategy Specialist Family Medicine 01/18/24 Anna Nino APRN.WOODS MANAGER [address] [place] [address] [facility] 01/18/24 Primer And Powder Canning Leader Relationship Specialty Start Date End Date Maira Escamilla MD [address] [place] [address] PCP - General Family Medicine 09/16/18 Viviana Marie APRN.WOODS MANAGER [address] [place] [address] Strategy Specialist Family Medicine 01/18/24 Anna Nino APRN.WOODS MANAGER [address] [place] [address] Strategy Specialist Family Medicine 01/18/24 Primer And Powder Canning Leader Relationship Specialty Start Date End Date Maira Escamilla MD [address] [place] [address] PCP - General Family Medicine 09/16/18 Viviana Marie APRN.WOODS MANAGER [address] [place] [address] Strategy Specialist [facility] 01/18/24 Anna Nino APRN.WOODS MANAGER [address] [facility] [place] [address] [facility] 01/18/24 Primer And Powder Canning Leader Relationship Specialty Start Date End Date Maira Escamilla MD [address] [facility] [place] [address] PCP - General Family Medicine 09/16/18 Viviana Marie APRN.WOODS MANAGER [address] [facility] [place] [place] [address] [facility] 01/18/24 Anna Nino BURN OUT TENDER LACE.WOODS MANAGER [address] [facility] [place] [address] [facility] 01/18/24 Primer And Powder Canning Leader Relationship Specialty Start Date End Date Maira Escamilla MD [address] [facility] [place] [address] PCP - General Family Medicine 09/16/18 Viviana Marie BURN OUT TENDER LACE.WOODS MANAGER [address] [facility] [place] [address] [facility] 01/18/24 Anna Nino BURN OUT TENDER LACE.WOODS MANAGER [address] [facility] [place] [address] [facility] 01/18/24 Primer And Powder Canning Leader Relationship Specialty Start Date End Date Maira Escamilla MD [address] [facility] [id number] PCP - General Family Medicine 09/16/18 Viviana Marie BURN OUT TENDER LACE.WOODS MANAGER [address] [place] [address] Strategy Specialist [facility] 01/18/24 Anna Nino BURN OUT TENDER LACE.WOODS MANAGER [address] [facility] [place] [address] [facility]24 Primer [employer] Powder Canning Leader Relationship Specialty Start Date End Date Maira Escamilla MD [address] [facility] [place] [address] PCP - General Family Medicine 09/16/18 Viviana Marie BURN OUT TENDER LACE.WOODS MANAGER [address] [place] [place] [address] [facility] 01/18/24 Anna Nino BURN OUT TENDER LACE.WOODS MANAGER [address] [facility] [place] [address] [facility] 01/18/24 Primer And Powder Canning Leader Relationship Specialty Start Date End Date Maira Escamilla MD [address] [facility] [place] [address] PCP - General Family Medicine 09/16/18 Viviana Marie BURN OUT TENDER LACE.WOODS MANAGER [address] [facility] [place] [address] [facility] 01/18/24 Anna Nino BURN OUT TENDER LACE.WOODS MANAGER [address] [facility] [place] [address] [facility] 01/18/24 Primer [employer] Powder Canning Leader Relationship Specialty Start Date End Date Maira Escamilla MD [address] [place] [address] PCP - General Family Medicine 09/16/18 Viviana Marie APRN.WOODS MANAGER [address] [place] [address] Strategy Specialist Family Medicine 01/18/24 Anna Nino BURN OUT TENDER LACE.WOODS MANAGER [address] [facility] [place] [address] Strategy Specialist [facility] 01/18/24 Primer [employer] Powder Canning Leader Relationship Specialty Start Date End Date Maira Escamilla MD [address] [place] [address] PCP - General Family Medicine 09/16/18 Viviana Marie BURN OUT TENDER LACE.WOODS MANAGER [address] [place] [address] Strategy Specialist Family Medicine 01/18/24 Anna Nino BURN OUT TENDER LACE.WOODS MANAGER [address] [place] [address] Strategy Specialist Family Medicine 01/18/24 Primer [employer] Pow[employer] Canning Leader Relationship Specialty Start Date End Date Maira Escamilla MD [address] [place] [address] PCP - General Family Medicine 09/16/18 Viviana Marie BURN OUT TENDER LACE.WOODS MANAGER [address] [place] [address] Strategy Specialist Family Medicine 01/18/24 Primer [employer] Powder Canning Leader Relationship Specialty Start Date End Date Maira Escamilla MD [address] [place] [address] PCP - General Family Medicine 09/16/18 Viviana Marie APRN.WOODS MANAGER [address] [place] [address] Strategy Specialist Family Medicine 01/18/24 Primer [employer] Powder Canning Leader Relationship Specialty Start Date End Date Maira Escamilla MD [address] [place] [address] PCP - General Family Medicine 09/16/18 Viviana Marie BURN OUT TENDER LACE.WOODS MANAGER [address] [place] [address] Strategy Specialist Family Medicine 01/18/24 Anna Nino BURN OUT TENDER LACE.WOODS MANAGER [address] [place] [address] Strategy Specialist Family Medicine 01/18/24 Primer [employer] Powder Canning Leader Relationship Specialty Start Date End Date Maira Escamilla MD [address] [place] [address] PCP - General Family Medicine 09/16/18 Viviana Marie BURN OUT TENDER LACE.WOODS MANAGER [address] [place] [address] Strategy Specialist Family Medicine 01/18/24 Anna Nino BURN OUT TENDER LACE.WOODS MANAGER [address] [place] [address] Strategy Specialist Family [facility] 01/18/24 Primer And Powder Canning Leader Relationship Specialty Start Date End Date Maira Escamilla MD [address] [place] [address] PCP - General Family Medicine 09/16/18 Viviana Marie, BURN OUT TENDER LACE.WOODS MANAGER [address] [facility] [place] [address] [facility] 01/18/24 Anna Nino BURN OUT TENDER LACE.WOODS MANAGER [address] [facility] [place] [address] [facility] 01/18/24 Team Status: Active Member Role Status [...] June 02, 2024 End: June 02, 2024 Primer And Powder Canning Leader Relationship Specialty Start Date End Date Maira Escamilla MD [address] [facility] [place] [address] PCP - General Family Medicine 09/16/18 Viviana Marie, BURN OUT TENDER LACE.WOODS MANAGER [address] [facility] [place] [address] [facility] 01/18/24 Anna Nino BURN OUT TENDER LACE.WOODS MANAGER [address] [facility] [place] [address] [facility] 01/18/24 Primer And Powder Canning Leader Relationship Specialty Start Date End Date Maira Escamilla MD [address] [facility] [place] [address] PCP - General Family Medicine 09/16/18 Viviana Marie APRN.WOODS MANAGER [address] [facility] [place] [address] Strategy Specialist Family Medicine 01/18/24 Anna Nino APRN.WOODS MANAGER [address] [facility] [place] [address] [facility] 01/18/24 Primer And Powder Canning Leader Relationship Specialty Start Date End Date Maira Escamilla MD [address] [facility] [place] [address] PCP - General Family Medicine 09/16/18 Viviana Marie APRN.WOODS MANAGER [address] [facility] [place] [address] Strategy Specialist [facility] 01/18/24 Anna Nino APRN.WOODS MANAGER [address] [facility] [place] [address] [facility] 01/18/24 Primer And Powder Canning Leader Relationship Specialty Start Date End Date Maira Escamilla MD [address] [facility] [place] [address] PCP - General Family Medicine 09/16/18 Viviana Marie APRN.WOODS MANAGER [address] [facility] [place] [address] Strategy Specialist Family Medicine 01/18/24 Anna Nino APRN.WOODS MANAGER [address] [place] [address] [facility] 01/18/24 Primer And Powder Canning Leader Relationship Specialty Start Date End Date Maira Escamilla MD [address] [place] [address] PCP - General Family Medicine 09/16/18 Viviana Marie, BURN OUT TENDER LACE.WOODS MANAGER [address] [place] [address] [facility] 01/18/24 Anna Nino BURN OUT TENDER LACE.WOODS MANAGER [address] [place] [address] [facility] 01/18/24 Primer And Powder Canning Leader Relationship Specialty Start Date End Date Maira Escamilla MD [address] [place] [address] PCP - General Family Medicine 09/16/18 Viviana Marie BURN OUT TENDER LACE.WOODS MANAGER [address] [place] [address] [facility] 01/18/24 Anna Nino BURN OUT TENDER LACE.WOODS MANAGER [address] [place] [address] [facility] 01/18/24 Primer And Powder Canning Leader Relationship Specialty Start Date End Date Maira Escamilla MD [address] [place] [address] PCP - General Family Medicine 09/16/18 Viviana Marie, BURN OUT TENDER LACE.WOODS MANAGER [address] [place] [address] [facility] 01/18/24 Anna Nino BURN OUT TENDER LACE.WOODS MANAGER [address] [place] [address] [facility] 01/18/24 Primer And Powder Canning Leader Relationship Specialty Start Date End Date Maira Escamilla MD [address] [place] [address] PCP - General Family Medicine 09/16/18 Viviana Marie BURN OUT TENDER LACE.WOODS MANAGER [address] [place] [address] [facility] 01/18/24 Anna Nino BURN OUT TENDER LACE.WOODS MANAGER [address] [place] [address] [facility] 01/18/24 Primer And Powder Canning Leader Relationship Specialty Start Date End Date Maira Escamilla MD [address] [place] [address] PCP - General Family Medicine 09/16/18 Viviana Marie, BURN OUT TENDER LACE.WOODS MANAGER [address] [place] [address] [facility] 01/18/24 Anna Nino BURN OUT TENDER LACE.WOODS MANAGER [address] [place] [address] [facility] 01/18/24 Primer And Powder Canning Leader Relationship Specialty Start Date End Date Maira Escamilla MD [address] [place] [address] PCP - General Family Medicine 09/16/18 Viviana Marie, KYLE.WOODS MANAGER [address] [facility] [place] [address] [facility] 01/18/24 Anna Nino APRN.WOODS MANAGER [address] [facility] [place] [address] [facility] 01/18/24 Team Status: Active Member Role/Relationship [...] August 16, 2024 End: August 16, 2024 Primer And Powder Canning Leader Relationship Specialty Start Date End Date Maira Escamilla MD [address] [facility] [place] [address] PCP - General Family Medicine 09/16/18 Viviana Marie APRN.WOODS MANAGER [address] [facility] [place] [address] [facility] 01/18/24 Anna Nino APRN.WOODS MANAGER [address] [facility] [place] [address] [facility] 01/18/24 Team Status: Inactive Member Role/Relationship Status Dates Dr. Maira Escamilla MD Primary Care Provider Active Start: August 16, 2024 End: August 16, 2024 Carlos Dockery MD Attending Provider Active Star t: August 16, 2024 End: August 16, 2024 Carlos Dockery MD Emergency Provider Active Star t: August 16, 2024 End: August 16, 2024 Team Status: Inactive Member Role/Relationship Status Dates Dr. Maira Escamilla MD Primary Care Provider Active Start: September 01, 2024 End: September 01, 2024 Dr. Beulah Campa MD Attending Provider Active Start: September 01, 2024 End: September 01, 2024 Dr. Beulah Campa MD Referring Provider Active Start: September 01, 2024 End: September 01, 2024 Primer And Powder Canning Leader Relationship Specialty Start Date End Date Maira Escamilla MD [address] [facility], [place] [address] PCP - General Family Medicine 09/16/18 Viviana Marie, BURN OUT TENDER LACE.WOODS MANAGER [address] [place] [address] [facility] 01/18/24 Anna Nino BURN OUT TENDER LACE.WOODS MANAGER [address] [place] [address] [facility] 01/18/24 Primer And Powder Canning Leader Relationship Specialty Start Date End Date Maira Escamilla MD [address] [place] [address] PCP - General Family Medicine 09/16/18 Viviana Marie, BURN OUT TENDER LACE.WOODS MANAGER [address] [place] [address] [facility] Medicine 01/18/24 Anna Nino BURN OUT TENDER LACE.WOODS MANAGER [address] [place] [address] [facility] 01/18/24 Primer And Powder Canning Leader Relationship Specialty Start Date End Date Maira Escamilla MD [address] [place], [place] [address] PCP - General Family Medicine 09/16/18 Viviana Marie APRN.WOODS MANAGER [address] [place], [place] [id number] [facility] 01/18/24 Anna Nino APRN.WOODS MANAGER [address] [place], [place] [id number] [facility] 01/18/24 Goals (unrecognized section and content) Goals [...] section and content) DATE CREATED AUTHOR 09/03/2023 [facility] DATE CREATED AUTHOR AUTHOR'S ORGANIZ ATION 06/06/2024 [facility] DATE CREATED AUTHOR AUTHOR'S ORGANIZ ATION 09/09/2024 [facility] DATE CREATED AUTHOR AUTHOR'S ORGANIZ ATION 09/10/2024 [facility] FOR RECORDS PERTAINING TO PATIENTS WHO ARE [...] BE BASED ON THE PRIMARY CLINICAL RECORDS. [facility] provides no warranty or guarantee of the accuracy or completeness of information in this document.
--- OUTSIDE RECORDS SUMMARY | 2024-09-10 14:41 | XMS RPT_ITS | CCD ---
Author Organization [facility] Care Team Providers Care Cell Technician Name Role Phone Aydinitmessi DIE MAKER TRIM-VOCATIONAL ADVISER, Sri Unavailable Maira Escamilla MD Primary Care Provider Maira Escamilla MD Primary Care Provider Maira Escamilla MD Primary Care Provider Maira Escamilla MD Primary Care Provider Maira Escamilla MD Primary Care Provider MAIRA ESCAMILLA MD Primary Care Physician MARCELLA OSHEA, DR SHARON Velazco Attending MAIRA Jessica MD Primary Care Unavailable Haagen DIE MAKER TRIM.FATEMEH Viviana Unavailable Suppan DIE MAKER TRIM.VOCATIONAL ADVISER Anna A Unavailable Suppan DIE MAKER TRIM.FATEMEH, Anna A Unavailable Suppan DIE MAKER TRIM.FATEMEH, Anna A Unavailable [phone] Dr. Maira Escamilla MD Primary Care Provider Dr. Maira Escamilla MD Referring Provider Magdalena Roman Attending Provider Carlos Dockery MD Emergency Provider BONNY HENRY Attending Unavailable MAIRA ESCAMILLA Primary Care Unavailable JAE STERLING Attending Unavailable MAIRA ESCAMILLA Primary Care Unavailable Dr. Maira Escamilla MD Primary Care Provider Carlos Dockery MD Attending Provider Errol OSHEA Dr. Beulah Attending Provider Dr. Beulah Campa MD Referring Provider FRANCINE, MAIRA J Primary Care Unavailable FRANCINE, MAIRA J Referring Unavailable FRANCINE, AMIRA J Primary Care Unavailable FRANCINE, MAIRA J [...] Attending Unavailable LYNN, MAKEDA Attending Unavailable FRANCINE, MAIRA J Primary Care Unavailable LYNN, MAKEDA Referring Unavailable FRANCINE, MAIRA J Primary Care Unavailable BONNY HENRY Attending Unavailable FRANCINE, MAIRA J Primary Care Unavailable FRANCINE, MAIRA J Primary Care Unavailable ALISON JULES Attending Unavailable FRANCINE, MAIAR J Primary Care Unavailable JAE STERLING Referring Unavailable FRANCINE, MAIRA J Primary Care Unavailable JAE STERLING Attending Unavailable Finlayson, Maira Primary Care Unavailable Magdalena Ram Attending Unavailable Francine, Maira Referring Unavailable Beulah Campa Referring Unavailable Beulah Campa Attending Unavailable Francine, Maira Primary Care Unavailable Carlos Dockery Attending Unavailable Finlayson, Maira Primary Care Unavailable Carlos Dockery Attending Unavailable Finlayson, Maira Primary Care Unavailable Jamison Hernández Referring Unavailable Jaimson Hernández Attending Unavailable Finlayson, Maira Primary Care Unavailable Finlayson, Maira Primary Care Unavailable Anthony Lau Referring Unavailable Anthony Lau Attending Unavailable Allergies Allergy Classification Reported Allergen(s) Allergy Type Date of Onset Reaction(s) Facility (1 source) gabapentin Drug Allergy 02-16-[address] [facility] Work Phone: (20 sources) predniSONE; Translations: [prednisone] Drug Allergy 04-18-[address] [facility] Work Phone: (1 source) Seasonal allergy; Translations: [SEASONAL] allergy to substance 02-16-[address] [facility] Work Phone: (1 source) topiramate Drug Allergy 09-23-[address] [facility] Work Phone: (20 sources) gabapentin; Translations: [gabapentin] Drug Allergy 04-14-19 15 Other: See Comments [facility] (20 sources) topiramate; Translations: [topiramate] Drug Allergy 12-13-19 17 Other: See Comments [facility] Work Phone: (20 sources) environmental [Other] Propensity to adverse reactions 06-27-19 06 Intolerance [facility] Work Phone: (20 sources) Tree and shrub pollen; Translations: [TREE AND SHRUB POLLEN] Propensity to adverse reactions to drug 07-22-19 24 Other: See Comments [facility] (20 sources) Escitalopram; Translations: [ESCITALOPRAM] Drug Allergy 02-21-19 25 Mental Status Change [facility] (19 sources) L1 protein, Human papillomavirus type [...] Allergy 07-20-19 Rash, Itching, Other: See Comments [facility] (1 source) L1 protein, Human papillomavirus type 11 Vaccine Drug Allergy 09-02-19 Swelling [facility] Comment on above: AT INJECTION SITE (1 source) gabapentin Drug Allergy 09-02-19 [facility] Repository (1 source) predniSONE Drug Allergy 09-02-19 [facility] Repository (1 source) topiramate Drug Allergy 09-02-19 [facility] Repository (1 source) human papillomavirus vaccine, quadr Drug allergy (disorder) 09-02-19 [facility] Repository Medications Current Medications Medication Drug [...] Comment on above: Take 1 capsule by [facility] twice daily for 10 days. amoxicillin 500 [...] Comment on above: Take 1 capsule by [facility] twice daily. cholecalciferol 0.05 mg oral tablet [...] 10 days. Take 1 capsule by mo [facility] every 12 hours. 0.4 ml enoxaparin sodium [...] Comment on above: Take 1 tablet by [facility] every 8 hours as needed for pain [...] Discontinued Start: 09-27-2019 take 1 capsule by [facility] twice daily LYRICA 75 MG CAPS Take 1 capsule by mouth 2 times a day PREGABALIN [id number] Sri Duran DIE MAKER TRIM-VOCATIONAL ADVISER Comment on above: Take 1 capsule by [facility] twice daily for 30 days. Take 1 capsule by [facility] two times a day for 90 days. sennosides, skilled nursing 8.6 mg oral tablet (6 sources) Start: [...] 24 hours. Take 1 capsule by mo [facility] three times daily as needed for cough. [...] mg by mouth. Take 1 tablet by [facility] three times daily as needed. diazePAM 10 [...] on above: Take 1 capsule by mo [facility] once daily. multivit-min/ferrou s fumarate (MULTI VITAMIN [...] Discontinued Start: 05-08-2021 take 1 capsule by [facility] twice daily omeprazole (PRILOSEC) 40 mg capsule [...] Comment on above: Take 1 capsule by [facility] twice daily. ondansetron 4 mg oral tablet [...] Comment on above: Take 1 tablet by [facility] once daily as needed for nausea/vomiting (for [...] [facility] for Report and Appt 71590. If no answer call [phone] Charge Nurse. If no answer call [phone] Boarder Machine Nurse Plastic Die Maker Apprentice. Banana bag (1000 cc's in 2 hours) [...] [facility] for Report and Appt 75090. If no answer call [phone] Charge Nurse. If no answer call [phone] Boarder Machine Nurse Plastic Die Maker Apprentice. Banana bag (1000 cc's in 2 hours) [...] [facility] for Report and Appt 78909. If no answer call [phone] Charge Nurse. If no answer call [phone] Boarder Machine Nurse Plastic Die Maker Apprentice. 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 SURGERY AND DATE: [facility] with bilateral salpingectomy 09/01/24 PATHOLOGY: benign, [...] discussed with the Patient or Patient's Authorized Insurance Claims Representative. As applicable, any other physician, advance practice provider, medical student, or other health professional student that will be observing or involved in the sensitive examination for educational or training purposes was discussed with the Patient or Authorized Insurance Claims Representative. The Patient or Authorized Insurance Claims Representative has agreed to proceed with the sensitive [...] as neede (more content not included)... Normal [facility]07[facility]2024 [facility] -- RAUL CHONG ([id number]) 1980 F Date Time Provider Department 09/07/24 [...] Encounter Status:Closed by AYAAN SWIFT on 09/07/24 [facility] [place] 09-05-2024 CNPN Telephone (OBGYWM) -- RAUL CHONG ([id number]) 1980 F Date Time Provider Department 7/28/25 ERROL BEULAHLORIE DOMÍNGUEZ During your visit today, we recorded the following information about you: Concha Akers RN 09/05/2024 8:29 AM Signed Patient underwent total laparoscopic hysterectomy with bilateral salpingectomy at [facility] on 09/01/2024. Pt calls stating she has [...] voiced understanding. Pt will send photos on [employer] of her incisions/rash. Please advise. GEORGINA Chowdhury Tara, RN 09/05/2024 8:31 AM Signed Pt's mychart pictures were sent-see [employer] message from 09/05/24. GEORGINA Chowdhury Jennifer, MD [...] 08/24/2024 En (more content not included)... Normal [facility] Bedside Glucoseon 09-01-2024 FINGERSTICK GLU 82 mg/dL Normal 74-106 [facility] Comment on above: Result Comment: BG MCKAY OF PATIENT CARE PER NURSING PROTOCOL Performed By: #### L 501.080 ####[facility] [address] [place], [address] CNOPon 09-01-2024 CNOP Operative Note (Enc) (OBGYWM) -- Encounter Status:Closed by BEULAH CAMPA on 09/01/24 [facility] Discharge Instructionon 08-10 Discharge Instruction [facility] Medical Records Department [address] [place] [address] Instructions for Home/Discharge Instructions 09/01/24 0749 MR#: [id number] Acct: [id number] Name: RAUL CHONG DIANNA Rep #: [id number] : 1980 43 From: Beulah Campa MD PCP: Dr. Maira Escamilla MD Status:REG [facility] Discharge Instructions DC O2, CPAP, BIPAP needs [...] 1-2 and 6 weeks or as needed. [phone] call or send a [employer] message as needed Test Results: Test results from this visit will be discussed in further detail at your follow-up appointment, if applicable. Discharge Plan Admission Primary Reason for Your Visit: Hysterectomy Attending Provider: Beulah Campa Primary Care Provider: Maira Escamilla Instructions Print Language: Chadian Discharge Orders/Prescriptions Prescriptions: New acetaminophen [Acetaminophen Extra [...] CC: Dr. Maira Escamilla MD Signed Normal [facility] deOrdered By: Beulah Campa on 09-01-2024 Glucose [Mass/Vol] 82 mg/dL 74-106 [facility] Comment on above: MANAGEMENT OF PATIEN T CARE PER NURSING PROTOCOL MR/POSTOP.ANEon 09-01-2024 MR/POSTOP.[facility] Medical Records Department [address] [place] [address] Anesthesia Postop Eval I 09/01/24 0954 MR#: [id number] Acct: [id number] Name: RAUL CHONG Rep #: [id number] : 1980 43 From: Karen Aguilar CRNA PCP: Dr. Maira Escamilla MD Status:REG SDC Y Race: C Location: [place] [address] Anesthesia: Postop Eval I Current Vital Signs [...] 1 completed: Yes 09/01/24955 Date Karen Aguilar HEAD CHAR FILTER TANK TENDER Cosigner Signature: Date CC: Signed Normal [facility] MR/[id number] 09-01-2024 [facility] Medical Records Department [address] [place] [address] Anesthesia Postop Eval II 09/01/24 1155 MR#: [id number] Acct: [id number] Name: RAUL CHONG DIANNA Rep #: [id number] : 1980 43 From: Max Mccollum MD PCP: Dr. Maira Escamilla MD Status:REG [facility] Y Race: C Location: [place] [address] Anesthesia Postop Eval I Sum Postop Eval Completion status Anesthesia document: Postop Eval 1 completed: Yes Anesthesia Postop Eval I Summary Anesthesia Postop Eval I Summary: Anesthesia Postop Eval I: Assessment Summary Airway patent Yes 09/01/24 09:56 HEAD CHAR FILTER TANK TENDER.SJFARSHAD Spontaneous unlabored Yes 09/01/24 09:56 HEAD CHAR FILTER TANK TENDER.SJFARSHAD respirations Mental status Awake 09/01/24 09:56 HEAD CHAR FILTER TANK TENDER.SJAN nausea No 09/01/24 09:56 HEAD CHAR FILTER TANK TENDER.SJAN Vomiting No 09/01/24 09:56 HEAD CHAR FILTER TANK TENDER.SJAN Anesthesia Postop Eval I: Fluid Summary Crystalloid volume administer 1,000 09/01/24 09:56 HEAD CHAR FILTER TANK TENDERCELI (ml) Colloids volume administered ( ml) Blood Product volume administered (ml) Total IV fluid infused 1,000 09/01/24 09:56 HEAD CHAR FILTER TANK TENDERCELI Anesthesia Postop Eval I: Summary Notes Anesthesia Complication No 09/01/24 09:56 HEAD CHAR FILTER TANK TENDERCELI Anesthesia Complication Comment: Post-operative progress note Anesthesia: Postop Eval II Evaluation Mental status: Awake and Calm Pain Level: 1 nausea: No Vomiting: No Complications Anesthesia Complication: No 09/01/24 1156 Date Estelleyisoto Mccollum MD Cosigner Signature: Date CC: Signed Normal [facility] Operative Reporton 5 Operative Report [facility] Medical Records Department [address] [place] [address] Operative Report 09/01/24 0938 MR#: [id number] Acct: [id number] Name: RAUL CHONG DIANNA Rep #: [id number] : 1980 43 From: Beulah Campa MD PCP: Dr. Maira Escamilla MD Status:REG [facility] Location: [place] [address] Problems Associated Problem List Diagnoses (1) Postoperative pain: (2) Arcuate uterus: (3) Intramural uterine fibroid: (4) Adenomyosis: (5) Abnormal uterine bleeding (AUB): (6) Dysmenorrhea: Operative Report (Standard) Operative Information Date of Procedure: 09/01/24 Pre-Operative Diagnosis: aub, fibroids, dysmenorrhea, adenomyosis, arcuate uterus Post-Operative Diagnosis: same Surgery/Procedure Performed: TLH, bilateral salpingectomy and cysto head of marketing: Yes Unit Director: Kostohryz,Jose A Tasks completed by miner assistant: Closing, Hemostasis: Electrocautery, Trocar and Retracting Type [...] 3 and 9:00. The 2 cm Uterine area attendant placed into the cervix and the balloon inflated. The stay sutures were placed through the cup and secured down to the cervix. Once the area attendant was secured to the cervix the Beard [...] The re (more content not included)... Normal [facility] ,Urineon 09-01-2024 Beta HCG ( test) Ql (U) Negative Normal [facility] Comment on above: Result Comment: Very dilute urine specimens, as indicated by a low specific gravity, may not contain environmental marketing representative levels of hCG. If is still suspected, a first morning urine specimen should be collected 48 hours later and tested. Performed By: #### L 400.7600 ####[facility] [address] [place], [address] Surgery Specimen Level Von 0 09-01-2024 Surgery Specimen Level V Patient Age/Sex Location Account Attending Physician RAUL CHONG 43/ [facility] [id number] Dr. Beulah Campa MD Specimen: [id number] Received: 09/01/24 Status: TIARA Greermark Num: [id number] Spec Type: UTERUS Subm Dr: Dr. Beulah [...] patent. The specimen is inked as follows: Skthxmmq-veasqHgmqktbym-lk ackParametrium-orange. Opening reveals a 5.3 x 3.4 [...] metallic clamp (consistent with a contraception device). Insurance Claims Representative sections are submitted as follows: A1-A3: Anterior cervixA4-A5: Posterior cervix A6: Posterior cervix, lower uterine segment with cystA7: Anterior endomyometriumA8: Posterior endomyometriumA9-A10: Fallopian kskktS35: Serosal adhesions, edema (vs cyst) A12: Intramural leiomyomas RI 09/01/2024 CPT:82338 Patient Age/Sex Location Account Attending Physician RAUL CHONG 43/F [facility] [id number] Dr. Beulah Campa MD Signed (signature on file) Dr. Charlotte Rosales MD 09/06/24 1127 Normal [facility] Comment on above: Performed By: #### P SUV ####[facility] [address] [place], [address] Urine testOrdered By: Beulah Campa on 09-01-2024 HCG ( test) Ql (U) Negative [facility] Comment on above: Very dilute urine sp ecimens, as indicated by a low specificgravity, may not contain environmental marketing representative levels of hCG. If is still suspected, a first morning urinespecimen should be collected 48 hours later and tested. Surya 08-31-2024 CNOV Office Visit (WOUCA) -- RAUL CHONG ([id number]) 1980 F Date Time Provider Department 08/31/24 [...] [J45.909] 0 (more content not included)... Normal [facility] Magnesiumon 08-30-2024 Magnesium [Mass/Vol] 2.3 mg/dL High 1.5-2.2 [facility] Comment on above: Performed By: #### B TSPAT, L400.7600, L501.5200 ####[facility] [address] [place], [place], [id number] Magnesium measurement (mass/ volume)Ordered By: Beulah Campa on 08-30-2024 Magnesium (Unsp spec) [Mass/Vol] 2.3 mg/dL High 1.5-2.2 [facility] ,Urineon 08-30-2024 Beta HCG ( test) Ql (U) Normal [facility] Comment on above: Result Comment: COUL DN'T FIND URINE IN LAB- BUT TEST FOR SURGERY NEEDS DONE DAY OF SURGERY- WILL SEND EMAIL Performed By: #### B TSPAT, L400.7600, L501.5200 ####[facility] [address] [place], [address] INTERNAL QC OK? [facility] Comment on above: Result Comment: COUL DN'T FIND URINE IN LAB- BUT TEST FOR SURGERY NEEDS DONE DAY OF SURGERY- WILL SEND EMAIL Performed By: #### B TSPAT, L400.7600, L501.5200 ####[facility] [address] [place], [address] RECORD KIT LOT# [facility] Comment on above: Result Comment: COUL DN'T FIND URINE IN LAB- BUT TEST FOR SURGERY NEEDS DONE DAY OF SURGERY- WILL SEND EMAIL Performed By: #### B TSPAT, L400.7600, L501.5200 ####[facility] [address] [place], [address] Type AND Screen - PAT ONLYon 08-30-2024 Ab SCREEN GEL Negative [facility] Comment on above: Order Comment: Reaso n for Laboratory Test [id number] Performed By: #### B TSPAT, L400.7600, L501.5200 ####[facility] [address] [place], [address] MR/PAT.ANEon 08-25-2024 MR/PAT.ANE [facility] Medical Records Department [address] [place] [address] PAT - Anesthesia 08/25/24 1154 MR#: [id number] Acct: [id number] Name: RAUL CHONG DIANNA Rep #: [id number] : 1980 43 From: Vince Salter MD PCP: Dr. Maira Escamilla MD Status:PRE [facility] Y Race: C Location: [facility] Pre-Assessment Diagnosis/Proposed Procedure Planned Operative Procedure(s): (B) Hysterectomy TLH, bilateral salpingectomy, ERAS Anesthesia History Anesthesia History - assembly associate: Anesthesia History - assembly associate Hx Hospitalization Yes: 08/2023 HEART 08/25/24 11:24 [...] take am of surgery PONV PONV - assembly associate: PONV - assembly associate Female Yes 08/25/24 11:24 HX of Motion [...] 06/02/24 14:39 Respiratory Assessment Respiratory Assessment - assembly associate: Respiratory Tract Infection Hx - assembly associate Hx Respiratory Tract Infection No 08/25/24 11:24 STOP Sleep Apnea STOP Sleep Apnea - assembly associate: STOP Sleep Apnea - assembly associate Hx Hypertension No 08/25/24 11:24 Hx Sleep [...] Tobacco Use History Tobacco Use History - assembly associate: Tobacco Use History - assembly associate Tobacco Use Smoking Status Current every day smoker 08/25/24 11:24 Hx Tobacco Use No 08/25/24 11:24 Years Smoking Packs Smoked per Day Smoking Cessation Date was within the last 15 years Hx Smoking Cessation Date Hx Smoking Cessation No 08/25/24 11:24 Counseling Hematologic Medial History Hematologic Hx - assembly associate: Hematologic Medical Hx - agricultural 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 Normal [facility] CNOVon 08-24-2024 CNOV Office Visit (OBGYWM ) -- RAUL CHONG ([id number]) 1980 F Date Time Provider Department 08/24/24 [...] 9.7 m (more content not included)... Normal [facility] HISTORY PHYSICALon HISTORY PHYSICAL HNO ID: [id number] Author: BEULAH CAMPA MD Service: ? Author [...] was per (more content not included)... Normal [facility] Absolute lymphocyte countOrd ered By: Carlos Dockery on 08-16-2024 Lymphocytes Auto (Unsp spec) [#/Vol] 0.32 10*3/uL Low 0.83-4.51 [facility] Absolute neutrophil countOrd ered By: Carlos Dockery on 08-16-2024 Neutrophils (Bld) [#/Vol] 6.1 10*3/uL 2.0-7.7 [facility] Anion gap in Serum or Plasma Ordered By: Carlos Dockery on 08-16-2024 Anion gap [Moles/Vol] 8 mmol/L 5-15 [facility] Automated lymphocyte count a s percentage of total leukocytesOrdered By: Carlos Dockery on 08-16-2024 Lymphocytes/100 WBC Auto (Unsp spec) 4.7 % Low 19-41 [facility] BUN/creatinine ratioOrdered By: Carlos Dockery on 08-16-2024 Urea nitrogen/Creatinine [Mass ratio] 14.1 mg/mg 10- [facility] Basic Metabolic Profile (BMP )on 08-16-2024 BUN/CRE 14.1 RATIO Normal - [facility] Comment on above: Performed By: #### L 700.6800, L500.2500, L100.0100 #### [facility] [address] [place], [address] Calcium [Mass/Vol] 8.4 mg/dL Normal 7.6-11.0 [facility] Comment on above: Performed By: #### L 700.6800, L500.2500, L100.0100 #### [facility] [address] [place], [address] Chloride [Moles/Vol] 102 mmol/L Normal 98-108 [facility] Comment on above: Performed By: #### L 700.6800, L500.2500, L100.0100 #### [facility] [address] [place], [address] CO2 [Moles/Vol] 25.8 mmol/L Normal 21.0-32.0 [facility] Comment on above: Performed By: #### L 700.6800, L500.2500, L100.0100 #### [facility] [address] [place], [address] Creatinine [Mass/Vol] 0.55 mg/dL Low 0.70-1.20 [facility] Comment on above: Performed By: #### L 700.6800, L500.2500, L100.0100 #### [facility] [address] [place], [address] ECRCL 149.23 ml/min Normal 50-250 [facility] Comment on above: Performed By: #### L 700.6800, L500.2500, L100.0100 #### [facility] [address] [place], [address] GAP 8 Normal 5-15 [facility] Comment on above: Performed By: #### L 700.6800, L500.2500, L100.0100 #### [facility] [address] [place], [address] GFR/1.73 sq M.predicted among non-blacks MDRD (S/P/Bld) [Vol rate/Area] 116 mL/min/{1.73_m2} Normal >60 [facility] Comment on above: Result Comment: mL/m in/1.73m2 CKD-EPI Creatinine Equation (2020) Performed By: #### L 700.6800, L500.2500, L100.0100 #### [facility] [address] [place], [address] Glucose [Mass/Vol] 97 mg/dL Normal 70-99 [facility] Comment on above: Performed By: #### L 700.6800, L500.2500, L100.0100 #### [facility] [address] [place], [address] Potassium [Moles/Vol] 4.0 mmol/L Normal 3.3-5.1 [facility] Comment on above: Performed By: #### L 700.6800, L500.2500, L100.0100 #### [facility] [address] [place], [address] Sodium [Moles/Vol] 136 mmol/L Normal 133-145 [facility] Comment on above: Performed By: #### L 700.6800, L500.2500, L100.0100 #### [facility] [address] [place], [address] Urea nitrogen [Mass/Vol] 8 mg/dL Normal 4-19 [facility] Comment on above: Performed By: #### L 700.6800, L500.2500, L100.0100 #### [facility] [address] [place], [address] Basophil percentageOrdered B y: Carlos Dockery on 08-16-2024 Basophils/100 WBC (Bld) 0.3 % 0-1 [facility] Bilirubin Test strip Ql (U)O rdered By: Carlos Dockery on 08-16-2024 Bilirubin Ql (U) Negative Negative [facility] CBC W/Diff, Automatedon Absolute Lymph 0.32 X10 3/uL Low 0.83-4.51 [facility] Comment on above: Performed By: #### L 700.6800, L500.2500, L100.0100 #### [facility] [address] [place], [address] Absolute Neut 6.1 X10 3/uL Normal 2.0-7.7 [facility] Comment on above: Performed By: #### L 700.6800, L500.2500, L100.0100 #### [facility] [address] [place], [address] Basophils/100 WBC (Bld) 0.3 % Normal 0-1 [facility] Comment on above: Performed By: #### L 700.6800, L500.2500, L100.0100 #### [facility] [address] [place], [address] Eosinophils/100 WBC (Bld) 0.1 % Normal 0-5 [facility] Comment on above: Performed By: #### L 700.6800, L500.2500, L100.0100 #### [facility] [address] [place], [address] Erythrocyte distribution width (RBC) [Ratio] 13.1 % Normal 11.6-14.6 [facility] Comment on above: Performed By: #### L 700.6800, L500.2500, L100.0100 #### [facility] [address] [place], [address] Hematocrit (Bld) [Volume fraction] 35.8 % Low 37-47 [facility] Comment on above: Performed By: #### L 700.6800, L500.2500, L100.0100 #### [facility] [address] [place], [address] Hemoglobin (Bld) [Mass/Vol] 11.9 g/dL Low 12.0-15.0 [facility] Comment on above: Performed By: #### L 700.6800, L500.2500, L100.0100 #### [facility] [address] [place], [address] IG% 0.300 Normal 0.0-0.9 [facility] Comment on above: Result Comment: IG% - Immature Granulocytes (promyelocytes, myelocytes and metamyelocytes) > 1% indicates that a LEFT SHIFT is Present. Performed By: #### L 700.6800, L500.2500, L100.0100 #### [facility] [address] [place], [address] Lymphocytes/100 WBC (Bld) 4.7 % Low 19-41 [facility] Comment on above: Performed By: #### L 700.6800, L500.2500, L100.0100 #### [facility] [address] [place], [address] MCH (RBC) [Entitic mass] 28.5 pg Normal 27.0-32.0 [facility] Comment on above: Performed By: #### L 700.6800, L500.2500, L100.0100 #### [facility] [address] [place], [address] MCHC (RBC) [Mass/Vol] 33.2 g/dL Normal 32-36 [facility] Comment on above: Performed By: #### L 700.6800, L500.2500, L100.0100 #### [facility] [address] [place], [address] MCV (RBC) [Entitic vol] 85.9 fL Normal 81-99 [facility] Comment on above: Performed By: #### L 700.6800, L500.2500, L100.0100 #### [facility] [address] [place], [address] Monocytes/100 WBC (Bld) 5.4 % Normal 0-10 [facility] Comment on above: Performed By: #### L 700.6800, L500.2500, L100.0100 #### [facility] [address] [place], [address] Neutrophils/100 WBC (Bld) 89.2 % High 47-70 [facility] Comment on above: Performed By: #### L 700.6800, L500.2500, L100.0100 #### [facility] [address] [place], [address] Nucleated RBC (Bld) [#/Vol] 0 10*3/uL Normal 0-5 [facility] Comment on above: Performed By: #### L 700.6800, L500.2500, L100.0100 #### [facility] [address] [place], [address] Platelet mean volume (Bld) [Entitic vol] 9.8 fL Normal 6.2-12.0 [facility] Comment on above: Performed By: #### L 700.6800, L500.2500, L100.0100 #### [facility] [address] [place], [address] Platelets (Bld) [#/Vol] 207 10*3/uL Normal 150-450 [facility] Comment on above: Performed By: #### L 700.6800, L500.2500, L100.0100 #### [facility] [address] [place], [address] RBC (Bld) [#/Vol] 4.17 10*6/uL Low 4.2-5.4 [facility] Comment on above: Performed By: #### L 700.6800, L500.2500, L100.0100 #### [facility] [address] [place], [address] RDW SD 41.1 fl Normal 35.1-43.9 [facility] Comment on above: Performed By: #### L 700.6800, L500.2500, L100.0100 #### [facility] [address] [place], [address] WBC (Bld) [#/Vol] 6.9 10*3/uL Normal 4.4-11.0 [facility] Comment on above: Performed By: #### L 700.6800, L500.2500, L100.0100 #### [facility] [address] [place], [address] Carbon dioxide, total [Moles /volume] in Central venous bloodOrdered By: Carlos Dockery on 08-16-2024 CO2 [Moles/Vol] 25.8 mmol/L 21.0-32.0 [facility] Chest 1 View (Portable)on Chest 1 View (Portable) [facility] Imaging Services [address] [place] [address] Chest 1 View (Portable) MR#: [id number] Acct: [id number] Name: RAUL FLEMING DIANNA Rep #: [id number] : 1980 F 43 From: Hussein Ruiz MD PCP: Dr. Maira Escamilla MD Status: REG ER Study: Chest 1 View (Portable) Date of Exam: 08/16/24 Exam# [id number] Ordering Dr: Carlos Dockery MD EXAM: XR Chest, 1 View CLINICAL INDICATION: FEVER TECHNIQUE: Frontal view of the chest. COMPARISON: No relevant prior studies available. FINDINGS: LUNGS AND PLEURAL SPACES: Unremarkable. No consolidation. No pneumothorax. HEART: Unremarkable. No cardiomegaly. MEDIASTINUM: Unremarkable. Normal mediastinal contour. BONES/JOINTS: Unremarkable. No acute fracture. RAD/Chest 1 View (Portable) IMPRESSION: No acute cardiopulmonary process. Reading Location: [facility] CC: Dr. Carlos Dockery MD; Dr. Maira Escamilla MD Digital Sales Director: Signed Normal [facility] Chloride assayOrdered By: Dallas Dockery on 08-16-2024 Chloride [Moles/Vol] 102 mmol/L 98-108 [facility] Emergency Department Summary on 08-16-2024 Emergency Department Summary [facility] Medical Records Department [address] [place] [address] Emergency Department Summary 08/16/24 MR#: [id number] Acct: [id number] Name: RAUL FLEMING DIANNA Rep #: [id number] : 1980 43 From: Carlos Dockery MD [...] discharge or pain. No dysuria or hematuria. [facility] Medical History Migraine GERD (gastroesophageal reflux disease) [...] do not (more content not included)... Normal [facility] Eosinophil percentageOrdered By: Carlos Dockery on 08-16-2024 Eosinophils/100 WBC (Bld) 0.1 % 0-5 [facility] Erythrocyte distribution wid th ratioOrdered By: Carlos Dockery on 08-16-2024 Erythrocyte distribution width (RBC) [Ratio] 13.1 % 11.6-14.6 [facility] Erythrocyte distribution wid th standard deviationOrdered By: Carlos Dockery on 08-16-2024 Erythrocyte distribution width (RBC) [Ratio] 41.1 fl 35.1-43.9 [facility] Glomerular filtration rate ( GFR) estimation/1.73 sq m using serum, plasma, or whole bOrdered By: Carlos Dockery on 08-16-2024 GFR/1.73 sq M.predicted among non-blacks MDRD (S/P/Bld) [Vol rate/Area] 116 mL/min/{1.73_m2} >60 [facility] Comment on above: mL/min/1.73m2 CKD-EP I Creatinine Equation (2020) Hematocrit Auto (Bld) [Volum e fraction]Ordered By: Carlos Dockery on 08-16-2024 Hematocrit (Bld) [Volume fraction] 35.8 % Low 37-47 [facility] Hemoglobin measurementOrdere d By: Carlos Dockery on 08-16-2024 Hemoglobin (Bld) [Mass/Vol] 11.9 g/dL Low 12.0-15.0 [facility] Immature granulocytes/100 WB C Auto (Bld)Ordered By: Carlos Dockery on 08-16-2024 Immature granulocytes/100 WBC (Bld) 0.300 % 0.0-0.9 [facility] Comment on above: IG% - Immature Granu locytes (promyelocytes, myelocytes and metamyelocytes) > 1% indicates that a LEFT SHIFT is Present. Influenza virus A and B and SARS-CoV-2 (COVID-19) and Respiratory syncytial virus RNAOrdered By: Carlos Dockery on 08-16-2024 SARS-CoV-2 (COVID-19) RNA KRISTINA+probe Ql (Unsp spec) [facility] Ketones Test strip Ql (U)Ord ered By: Carlos Dockery on 08-16-2024 Ketones Ql (U) Negative Negative [facility] M100.678on 08-16-2024 M100.678 Pending SARS-CoV-2 (COVID 19) Negative INFLUENZA A Negative INFLUENZA B Negative RSV PCR Negative Normal [facility] Comment on above: Performed By: #### L 400.0001, M100.678 ####[facility] [address] [place], [address] MCV (mean corpuscular volume ) determinationOrdered By: Carlos Dockery on 08-16-2024 MCV (RBC) [Entitic vol] 85.9 fL 81-99 [facility] Mean corpuscular hemoglobin (MCH) determinationOrdered By: Carlos Dockery on 08-16-2024 MCH (RBC) [Entitic mass] 28.5 pg 27.0-32.0 [facility] Mean corpuscular hemoglobin concentration (MCHC) determinationOrdered By: Carlos Dockery on 08-16-2024 MCHC (RBC) [Mass/Vol] 33.2 g/dL 32-36 [facility] Mean platelet volume determi nationOrdered By: Carlos Dockery on 08-16-2024 Platelet mean volume (Bld) [Entitic vol] 9.8 fL 6.2-12.0 [facility] Microscopic analysis of urin e for red blood cells (RBC)Ordered By: Carlos Dockery on 08-16-2024 Microscopic analysis of urine for red blood cells (RBC) 0 SEEN /hpf 0-5 [facility] Monocyte percentageOrdered B y: Carlos Dockery on 08-16-2024 Monocytes/100 WBC (Bld) 5.4 % 0-10 [facility] Mucus LM Ql (Urine sed)Order ed By: Carlos Dockery on 08-16-2024 Mucus Ql (Urine sed) 0 SEEN /hpf [facility] Neutrophil percentageOrdered By: Carlos Dockery on 08-16-2024 Neutrophils/100 WBC (Bld) 89.2 % High 47-70 [facility] Nitrite Test strip Ql (U)Ord ered By: Carlos Dockery on 08-16-2024 Nitrite Ql (U) Negative Negative [facility] Nucleated red blood cell per centageOrdered By: Carlos Dockery on 08-16-2024 Nucleated RBC/100 WBC (Bld) [Ratio] 0 % 0-5 [facility] Platelet countOrdered By: Dallas Dockery on 08-16-2024 Platelets (Bld) [#/Vol] 207 10*3/uL 150-450 [facility] Potassium measurement (mass/ volume)Ordered By: Carlos Dockery on 08-16-2024 Potassium (Unsp spec) [Mass/Vol] 4.0 mmol/L 3.3-5.1 [facility] ,Serum,hCG Quali.on 08-16-2024 HCG, SERUM QUAL Negative Normal [facility] Comment on above: Performed By: #### L 700.6800, L500.2500, L100.0100 #### [facility] [address] [place], [address] Protein Test strip Ql (U)Ord ered By: Carlos Dockery on 08-16-2024 Protein Ql (U) 15 mg/dl High Negative [facility] RBC Auto (Bld) [#/Vol]Ordere d By: Carlos Dockery on 08-16-2024 RBC (Bld) [#/Vol] 4.17 10*6/uL Low 4.2-5.4 [facility] Serum beta-hCG test, qualita tiveOrdered By: Carlos Dockery on 08-16-2024 Beta HCG ( test) Ql Negative [facility] Serum creatinine measurement (mass/volume)Ordered By: Carlos Dockery on 08-16-2024 Creatinine [Mass/Vol] 0.55 mg/dL Low 0.70-1.20 [facility] Serum glucose measurement (m ass/volume)Ordered By: Carlos Dockery on 08-16-2024 Glucose [Mass/Vol] 97 mg/dL 70-99 [facility] Serum or plasma calcium shayna urement (mass/volume)Ordered By: Carlos Dockery on 08-16-2024 Calcium [Mass/Vol] 8.4 mg/dL 7.6-11.0 [facility] Serum or plasma urea nitroge n measurement (mass/volume)Ordered By: Carlos Dockery on 08-16-2024 Urea nitrogen [Mass/Vol] 8 mg/dL 4-19 [facility] Sodium levelOrdered By: Carlos Dockery on 08-16-2024 Sodium [Moles/Vol] 136 mmol/L 133-145 [facility] Squamous epithelial cells de tection in urine sediment by light microscopyOrdered By: Carlos Dockery on 08-16-2024 Epithelial cells.squamous LM Ql (Urine sed) 0-5 SEEN /hpf 5-10 [facility] Urinalysis, Completeon 08-16 EPI,SQUAMOUS 0-5 SEEN Normal - [facility] Comment on above: Order Comment: CLEAN CATCH Performed By: #### L 400.0001, M100.678 ####[facility] [address] [place], [address] WBC 0-5 SEEN Normal 0-5 [facility] Comment on above: Order Comment: CLEAN CATCH Performed By: #### L 400.0001, M100.678 ####[facility] [address] [place], [address] BACTERIA 0 SEEN Normal None Seen [facility] Comment on above: Order Comment: CLEAN CATCH Performed By: #### L 400.0001, M100.678 ####[facility] [address] [place], [address] Mucus Ql (Urine sed) 0 SEEN Normal [facility] Comment on above: Order Comment: CLEAN CATCH Performed By: #### L 400.0001, M100.678 ####[facility] [address] [place], [address] RBC 0 SEEN Normal 0-5 [facility] Comment on above: Order Comment: CLEAN CATCH Performed By: #### L 400.0001, M100.678 ####[facility] [address] [place], [address] Urine clarityOrdered By: Sendy Dockery on 08-16-2024 Clarity (U) Clear Clear [facility] Urine color determinationOrd ered By: Carlos Dockery on 08-16-2024 Color (U) Yellow Yellow [facility] Urine glucose detectionOrder ed By: Carlos Dockery on 08-16-2024 Glucose Ql (U) Normal mg/dl Normal [facility] Urine leukocyte esterase det ection by dipstickOrdered By: Carlos Dockery on 08-16-2024 Leukocyte esterase Test strip Ql (U) 25 /ul High Negative [facility] Urine pHOrdered By: Carlos luna on 08-16-2024 pH (U) 6.0 [pH] 5.0 - 8.0 [facility] Urine sediment bacteria coun t by microscopy (number/high power field)Ordered By: Carlos Dockery on 08-16-2024 Bacteria LM.HPF (Urine sed) [#/Area] 0 /[HPF] None Seen [facility] Urine specific gravity measu rementOrdered By: Carlos Dockery on 08-16-2024 Specific gravity (U) [Rel density] 1.010 1.002-1.03 0 [facility] Urine urobilinogen measureme ntOrdered By: Carlos Dockery on 08-16-2024 Urobilinogen Ql (U) Normal mg/dl Normal [facility] White blood cell (WBC) count Ordered By: Carlos Dockery on 08-16-2024 WBC (Bld) [#/Vol] 6.9 10*3/uL 4.4-11.0 [facility] White blood cell countOrdere d By: Carlos Dockery on 08-16-2024 White blood cell count 0-5 SEEN /hpf 0-5 [facility] CNOVon 08-04-2024 CNOV Office Visit (OBGYWM ) -- RAUL CHONG ([id number]) 1980 F Date Time Provider Department 08/04/24 [...] APRN.FATEMEH 08/04/2024 10:13 AM Signed Patient declined advanced practice rnMarivel Edouard is a 43 year old Female [...] material given to the patient. Makeda Smith APRN.VOCATIONAL ADVISER Referring Provider: BEULAH CAMPA [[id number]] Allergies As of Date: 08/04/2024 Noted Allergy [...] Visit Diagnosis:Adenomyosis of uterus [N80.03] Order(s):ENDOMETRIAL BIOPSY [[id number]] Order #: [id number] SURGICAL PATHOLOGY [[id number]] Order #: [id number]. #:[id number] UA DIP,URINE HCG (POC) [[id number]] Order #: [id number]. #:[id number] [id number] Prescri (more content not included)... Normal [facility] Pathology biopsy report Mason (Tiss)on 08-04-2024 AP DISCLAIMER Normal [facility] Comment on above: Order Comment: Speci men Type: TISSUE SPECIMEN Ordering Facility: [facility] Address: [address] [place] [address] Result Comment: Nicolasa chiu Developed Test (LDT) Disclaimer: Performance characteristics of immunohistochemical, immunofluorescent, and chromogenic in-situ hybridization tests have been determined by the performing laboratory within [facility]'s [facility] Pathology and Laboratory Medicine Department ([facility], [facility], [facility], [facility], [facility], [facility], or [facility]) in a manner consistent with CLIA requirements. One or more of these tests may not have been cleared or approved by the FDA. [facility] is regulated under CLIA as qualified to perform high-complexity testing. These tests are used for clinical purposes. These should not be regarded as investigational or for research. Positive and negative controls stain appropriately. Performed By: #### 6 6121-5 #### [facility] CLIA [id number] [address] [place] [address] [place] CASE REPORT Normal [facility] Comment on above: Order Comment: Speci men Type: TISSUE SPECIMEN Ordering Facility: [facility] Address: [address] [place] [address] Result Comment: Surg [facility] Pathology Report Case: [id number] Authorizing Provider: Makeda Smith APRN.VOCATIONAL ADVISER Collected: 08/04/2024 10:11 AM Ordering Location: OB/Gynecology Received: 08/04/2024 11:04 AM Pathologist: Damaris Crocker MD Specimen: Endometrium, Biopsy Performed By: #### 6 6121-5 #### [facility] CLIA [id number] [address] [place] [address] [place] CLINICAL HISTORY Adenomyosis Normal [facility] Comment on above: Order Comment: Speci men Type: TISSUE SPECIMEN Ordering Facility: [facility] Address: [address] [place] [address] Result Comment: Comm ent: AUB Performed By: #### 6 6121-5 #### [facility] CLIA [id number] [address] [place] [address] [place] FINAL DIAGNOSIS Normal [facility] Comment on above: Order Comment: Speci men Type: TISSUE SPECIMEN Ordering Facility: [facility] Address: [address] [place] [address] Result Comment: Endo metrium, biopsy: - Secretory endometrium at 1058 EDT Performed By: #### 6 6121-5 #### [facility] CLIA [id number] [address] [place] [address] [place] FINAL PERFORMING LAB Normal [facility] Comment on above: Order Comment: Speci men Type: TISSUE SPECIMEN Ordering Facility: [facility] Address: [address] [place] [address] Result Comment: Diag nostic interpretation performed at: [facility], [address] [place] [address] CLIA# [id number] Manufacturing Industrial Engineer: Patrick Smith MD Performed By: #### 6 6121-5 #### [facility] CLIA [id number] [address] [place] [address] [place] GROSS DESCRIPTION Normal [facility] Comment on above: Order Comment: Speci men Type: TISSUE SPECIMEN Ordering Facility: [facility] Address: [address] [place] [address] Result Comment: A. E ndometrium, Biopsy Received in formalin are multiple sapp-pink to red-brown soft feathery segments of tissue admixed with hemorrhagic and mucinous material aggregating to 4.2 x 2.6 x 0.3 cm. Totally submitted in two cassettes. Gross examination performed at [facility], [address] [place] [address] JT 08/04/2024 6:28 PM Performed By: #### 6 6121-5 #### [facility] CLIA [id number] [address] [place] [address] [place] UA DIP,URINE HCG (POC)on Beta HCG ( test) Ql (U) Negative Negative [facility] Comment on above: Location:[facility], [address] [facility], [place], [address] Senior Technical Business Analyst (POCT) Internal QC OK [facility] Location:[facility], [address], [place], [address] [facility] CNOVon 08-01-2024 CNOV Office Visit (OBGYWM ) -- RAUL CHONG ([id number]) 1980 F Date Time Provider Department 08/01/24 9:20 AM BEULAH CAMPA OBGYWM During your visit today, we recorded the following information about you: Blood pressure Weight 110/66 84.4 kg Beulah Campa MD 08/01/2024 12:07 PM Signed Obstetrics and Gynecology [place] CHEMICAL RECOVERY OPERATOR Visit Subjective Recording using [employer] software for draft documentation of the visit was discussed with the patient/authorized environmental marketing representative; all questions welcomed and answered. 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 - Has a supportive boyfriend who is a dispatcher tow truck. - Drinks coffee but reports drinking water slowly and in small amounts. - Takes vitamins daily and reports eating well. - Has two children, both delivered via , and has had a tubal ligation. HISTORY: OB History Gravida3 Para2 Term2 Preterm0 AB1 Living2 SAB0 IAB0 Ectopic0 Multiple0 Live Births0 Poem Writer History LMP: 07/10/2024 (Exact Date), Having periods Age at Menarche: 12 Age at First : Age at Menopause: Poem Writer History Comments: Sexual Activity: Yes; Male Contraception: [...] tablet Take (more content not included)... Normal [facility] 07-26-2024 FATEMEHN Telephone (OBGYWM) -- RAUL CHONG ([id number]) 1980 F Date Time Provider Department 07/26/24 MAKEDA SMITH During your visit today, we recorded the following information about you: Laurel Vizcarra RN 07/26/2024 12:36 PM Signed Patient called to inquire if RM spoke to one of the physicians regarding a hysterectomy for her. Does she just need an appointment to discuss? GEORGINA Burdick Renee, APRN.[facility] 07/26/2024 1:13 PM Signed Yes I just [...] Fully Assessed Reason for Visit: Patient Question [2922] Prescriptions as of 07/26/2024 - pregabalin (LYRICA) [...] Encounter Status:Closed by CONCHA AKERS on 07/26/24 [facility] Surya 07-22-2024 CNOV Office Visit (OBGYWM ) -- RAUL CHONG ([id number]) 1980 F Date Time Provider Department 07/22/24 10:15 AM MAKEDA SMITH OBGYWM During your visit today, we recorded the following information about you: Blood pressure Weight 102/64 80.7 kg Makeda Smith APRN.VOCATIONAL ADVISER 07/22/2024 10:27 AM Signed Raul Chong is a 43 year old female who presents for problem visit redo pap SENSITIVE EXAM: The sensitive examination was discussed with the Patient or Patient's Authorized Insurance Claims Representative. As applicable, any other physician, advance practice provider, medical student, or other health professional student that will be observing or involved in the sensitive examination for educational or training purposes was discussed with the Patient or Authorized Insurance Claims Representative. The Patient or Authorized Insurance Claims Representative has agreed to proceed with the sensitive examination. (Sensitive examination includes inspection and/or palpation of the breasts, pelvis, prostate and anorectal regions). EXAM: BP 102/64 Wt 178 lb (80.7kg) LMP 07/10/2024 GENERAL: pleasant, female in no apparent distress HEENT: Normocephalic, atraumatic, mucus membranes moist, and no lesions CHEST: Normal inspiratory effort PELVIC: external genitalia normal, normal Bartholin's glands, urethra, [place]'s glands, no vulvar lesions, no cervical lesions, physiologic discharge present, normal appearing perineal body and perianal region BIMANUAL: deferred NEURO: alert and oriented x3,exam grossly non-focal EXTREMITIES: normal ASSESSMENT AND PLAN: Assessment AND Plan Screening for cervical cancer Repeat Pap due to excess amount of blood and prior Pap. Makeda Smith APRN.CNP Referring Provider: MAKEDA SMITH [[id number]] Allergies As of Date: 07/22/2024 Noted Allergy [...] Diagnosis:Screening for cervical cancer [Z12.4] Order(s):PAP TEST [[id number]] Order #: [id number] Prescriptions as of 07/22/2024 - pregabalin (LYRICA) [...] 07/21/2024 Intramural (more content not included)... Normal [facility] PAP TESTon 07-22-2024 ADEQUACY Normal [facility] Comment on above: Order Comment: Speci men Type: FLUID SPECIMEN Ordering Facility: [facility] Address: [address] [place] [address] Result Comment: Sati sfactory for interpretation. Transformation zone present Performed By: #### L [id number] #### [facility] CLIA [id number] [address] [place] [address] [place] CASE REPORT Normal [facility] Comment on above: Order Comment: Speci men Type: FLUID SPECIMEN Ordering Facility: [facility] Address: [address] [place] [address] Result Comment: Gyne cologic Cytology Report Case: [id number] Authorizing Provider: Makeda Smith APRN.VOCATIONAL ADVISER Collected: 07/22/2024 10:34 AM Ordering Location: OB/Gynecology Received: 07/22/2024 12:18 PM First Screen: Morenita Gary, CT, ASCP Rescreen: Clapacs, Danyelle Specimen: Pap Test, ThinPrep, Cervix Performed By: #### L [id number] #### [facility] CLIA [id number] [address] [place] [address] [place] CLINICAL HISTORY, CYTOLOGY, CHEMICAL RECOVERY OPERATOR Routine Exam Normal [facility] Comment on above: Order Comment: Speci men Type: FLUID SPECIMEN Ordering Facility: [facility] Address: [address] [place] [address] Performed By: #### L [id number] #### [facility] CLIA [id number] [address] [place] [address] [place] FINAL PERFORMING LAB Normal [facility] Comment on above: Order Comment: Speci men Type: FLUID SPECIMEN Ordering Facility: [facility] Address: [address] [place] [address] Result Comment: Tech nical component, pharmacy associate screening performed at: [facility], [address] [place], [place] [address] CLIA: [id number] Diagnostic interpretation performed at: [facility], [address] [place], [place] [address] CLIA# [id number] Manufacturing Industrial Engineer: Patrick Smith MD Performed By: #### L [id number] #### [facility] CLIA [id number] [address] [place], [place] [id number] [place] INTERPRETATION, CYTOLOGY, CHEMICAL RECOVERY OPERATOR Normal [facility] Comment on above: Order Comment: Speci men Type: FLUID SPECIMEN Ordering Facility: [facility] Address: [address] [place] [address] Result Comment: Nega tive for intraepithelial lesion or malignancy. at 1007 EDT Performed By: #### L [id number] #### [facility] CLIA [id number] [address] [place] [address] [place] [facility] 07/10/2024 Normal [facility] Comment on above: Order Comment: Speci men Type: FLUID SPECIMEN Ordering Facility: [facility] Address: [address] [place] [address] Performed By: #### L [id number] #### [facility] CLIA [id number] [address] [place] [address] [place] PAP DISCLAIMER COMMENT The Pap Smear is a screening test for cervical cancer. False negative results occur with all screening tests, emphasizing the need for rescreening at recommended intervals, and clinical correlation. Normal [facility] Comment on above: Order Comment: Speci men Type: FLUID SPECIMEN Ordering Facility: [facility] Address: [address] [place] [address] Performed By: #### L [id number] #### [facility] CLIA [id number] [address] [place], [place] [id number] [place] PAP PIPE STEM SAWYER COMMENT This specimen has be en analyzed by the FDA-approved [employer] System, which uses digital imaging and an enhanced artificial intelligence image analysis algorithm to identify caldwell of interest on the microscopic slide, to assist the track subway repair supervisor and pathologist in evaluating cells on ThinPrep Pap tests. Following analysis, caldwell of interest on the microscopic slide selected by the algorithm are reviewed by a track subway repair supervisor. If a sample requires hierarchical review, the pathologist will review the same caldwell of interest selected by the algorithm prior to final interpretation. Normal [facility] Comment on above: Order Comment: Speci men Type: FLUID SPECIMEN Ordering Facility: [facility] Address: [address] [place] [address] Performed By: #### L [id number] #### [facility] CLIA [id number] [address] [place] [address] STATES OF [facility] ARUN SCREENING W TOMOon 07-21 ARUN SCREENING W TONIO * * *Final Report* * * DATE OF EXAM: Jul 21 2024 10:48AM WRW [id number] - ARUN SCREENING W TONIO / PROCEDURE REASON: multiple diagnoses * * * * Physician Interpretation * * * * RESULT: [facility] [address] [place] [address] #[id number] - ARUN SCREENING W TONIO HISTORY: 43 [...] Preethi Caballero M.D. Electronically signed on: 07/22/2024 Digital Sales Director: FRANCISCO JAVIER Transcribe Date/Time: Jul 21 2024 10:36A Dictated by: PREETHI CABALLERO MD This examination was interpreted and the report reviewed and electronically signed by: PREETHI CABALLERO MD on Jul 22 2024 8:49AM EST [id number] Normal [facility] US Pelvison 07-21-2024 [facility] Radiology Study observation (narrative) [facility] CNPNon 07-19-2024 CNPN Telephone (OBGYWM) -- RAUL CHONG ([id number]) 1980 F Date Time Provider Department 07/19/24 [...] all even a small percentage? Can sent [employer] message with response. Ayaan Swift RN Allergies [...] Encounter Status:Closed by MAKEDA SMITH on 07/19/24 [facility] Surya 07-14-2024 CNOV Office Visit (PLASST ) -- RAUL CHONG ([id number]) 1980 F Date Time Provider Department 6/5/25 [...] been taken (more content not included)... Normal [facility] CNOVon 07-12-2024 CNOV Office Visit (OBGYWM ) -- CHONG,RALU Harvinder ([id number]) 1980 F Date Time Provider Department 07/12/24 9:00 AM MAKEDA SMITH OBGYWM During your visit today, we recorded the following information about you: Blood pressure Weight Last Period 118/64 82.5 kg 07/10/24 Makeda Smith APRN.VOCATIONAL ADVISER 07/12/2024 10:12 AM Signed Patient declined advanced practice rn. Silke is a 43 year old who [...] Living2 SAB0 IAB0 Ectopic0 Multiple0 Live Births0 Poem Writer History LMP: 07/10/2024 (Exact Date), Having periods Age at Menarche: 12 Age at First : Age at Menopause: Poem Writer History Comments: Sexual Activity: Yes; Male Contraception: [...] discussed with the Patient or Patient's Authorized Insurance Claims Representative. As applicable, any other physician, advance practice provider, medical student, or other health professional student that will be observing or involved in the sensitive examination for educational or training purposes was discussed with the Patient or Authorized Insurance Claims Representative. The Patient or Authorized Insurance Claims Representative has agreed to proceed with the sensitive [...] external genitalia normal, normal Bartholin's glands, urethra, [place]'s glands, no vulvar lesions, no cervical lesions, [...] 3. Encou (more content not included)... Normal [facility] HIGH RISK HUMAN PAPILLOMA MARBELLA (HPV), PCR FOR DETECTION AND GENOTYPINGon 07-12-2024 HPV 16 Ag Ql (Unsp spec) Not detected Normal Not detected [facility] Comment on above: Order Comment: Speci men Type: FLUID SPECIMENOrdering Facility: [facility] Address: [address] [place] [address] Performed By: #### H PVHRT ####[facility] [id number] [place] [address] [place] HPV 18 Ag Ql (Unsp spec) Not detected Normal Not detected [facility] Comment on above: Order Comment: Speci men Type: FLUID SPECIMENOrdering Facility: [facility] Address: [address] [place] [address] Performed By: #### H PVHRT ####[facility] [id number] [place] [address] [place] HPV 31+33+35+39+45+51+52+5 6+58+59+66+68 DNA KRISTINA+probe Ql (Cvx) Not detected Normal Not detected [facility] Comment on above: Order Comment: Speci men Type: FLUID SPECIMENOrdering Facility: [facility] Address: [address] [place] [address] Result Comment: High Risk HPV Other Type includes HPV types 31, 33, 35, 39, 45, 51, 52, 56, 58, 59, 66 and 68. Performed By: #### H PVHRT ####[facility] [id number] [place] [address] [place] PAP TESTon 07-12-2024 ADEQUACY Normal [facility] Comment on above: Order Comment: Speci men Type: FLUID SPECIMEN Ordering Facility: [facility] Address: [address] [place] [address] Result Comment: Unsa tisfactory for evaluation. Transformation zone present Excess blood Performed By: #### L [id number] #### [facility] CLIA [id number] [address] [place] [address] [place] CASE REPORT Normal [facility] Comment on above: Order Comment: Speci men Type: FLUID SPECIMEN Ordering Facility: [facility] Address: [address] [place] [address] Result Comment: Gyne cologic Cytology Report Case: [id number] Authorizing Provider: Makeda Smith APRN.VOCATIONAL ADVISER Collected: 07/12/2024 10:05 AM Ordering Location: OB/Gynecology Received: 07/12/2024 12:37 PM First Screen: Gmitro, Miah, CT, ASCP Rescreen: Deeds, Timothy, CT, ASCP Specimen: Pap Test, ThinPrep, Cervix Performed By: #### L [id number] #### [facility] CLIA [id number] [address] [place] [address] [place] CLINICAL HISTORY, CYTOLOGY, CHEMICAL RECOVERY OPERATOR Routine Exam Normal [facility] Comment on above: Order Comment: Speci men Type: FLUID SPECIMEN Ordering Facility: [facility] Address: [address] [place] [address] Performed By: #### L [id number] #### [facility] CLIA [id number] [address] [place] [address] [place] FINAL PERFORMING LAB Normal [facility] Comment on above: Order Comment: Speci men Type: FLUID SPECIMEN Ordering Facility: [facility] Address: [address] [place] [address] Result Comment: Tech nical component, pharmacy associate screening performed at: [facility], [address] [place] [address] [place] [address] CLIA: [id number] Diagnostic interpretation performed at: [facility], [address] [place] [address] [place] [address] CLIA# [id number] Manufacturing Industrial Engineer: Patrick Smith MD Performed By: #### L [id number] #### [facility] CLIA [id number] [address] [place] [address] [place] GROSS DESCRIPTION A. Cervix Normal [facility] Comment on above: Order Comment: Speci men Type: FLUID SPECIMEN Ordering Facility: [facility] Address: [address] [place] [address] Result Comment: Glac ial Acetic Acid added. Performed By: #### L [id number] #### [facility] CLIA [id number] [address] [place] [address] [place] INTERPRETATION, CYTOLOGY, CHEMICAL RECOVERY OPERATOR Normal [facility] Comment on above: Order Comment: Speci men Type: FLUID SPECIMEN Ordering Facility: [facility] Address: [address] [place] [address] Result Comment: Unab le to perform interpretation due to unsatisfactory specimen. at 1407 EDT Performed By: #### L [id number] #### [facility] CLIA [id number] [address] [place] [address] [place] LMP 07/10/2024 Normal [facility] Comment on above: Order Comment: Speci men Type: FLUID SPECIMEN Ordering Facility: [facility] Address: [address] [place] [address] Performed By: #### L [id number] #### [facility] CLIA [id number] [address] [place] [address] [place] PAP DISCLAIMER COMMENT The Pap Smear is a screening test for cervical cancer. False negative results occur with all screening tests, emphasizing the need for rescreening at recommended intervals, and clinical correlation. Normal [facility] Comment on above: Order Comment: Speci men Type: FLUID SPECIMEN Ordering Facility: [facility] Address: [address] [place] [address] Performed By: #### L [id number] #### [facility] CLIA [id number] [address] [place] [address] [place] PAP PIPE STEM SAWYER COMMENT This specimen has be en analyzed by the FDA-approved [employer] System, which uses digital imaging and an enhanced artificial intelligence image analysis algorithm to identify caldwell of interest on the microscopic slide, to assist the track subway repair supervisor and pathologist in evaluating cells on ThinPrep Pap tests. Following analysis, caldwell of interest on the microscopic slide selected by the algorithm are reviewed by a track subway repair supervisor. If a sample requires hierarchical review, the pathologist will review the same cladwell of interest selected by the algorithm prior to final interpretation. Normal [facility] Comment on above: Order Comment: Speci men Type: FLUID SPECIMEN Ordering Facility: [facility] Address: [address] [place] [address] Performed By: #### L [id number] #### [facility] IA [id number] [address] [place] [address] OF [place] CNPDana 06-21-2024 FATEMEHN Telephone (RHODA) -- RAUL CHONG ([id number]) 1980 F Date Time Provider Department 06/21/24 JAE STERLING During your visit today, we recorded the following information about you: Jessica Desir 06/21/2024 12:40 PM Signed Patient calling to see if prior authorization was sent to insurance company for her surgery with Dr. Sterling. She can be reached at [phone]. Ladi Tierney 06/29/2024 1:29 PM Signed Patient requesting return call to advise on insurance auth for surgery. See below. Please return call to [phone] Rachna Lynn 08/01/2024 9:08 AM Signed Patient calling for an update on status of authorization for procedure. Please call to advise. Alexia Brian RN 08/01/2024 9:16 AM Signed Case message sent to salesperson surgical appliances for an update Allergies As of Date: [...] Status:Closed by ALEXIA BRIAN on 08/01/24 Normal [facility] CNCOon 06-09-2024 CNCO Letter Text Normal [facility] CNOVon 06-09-2024 CNOV Office Visit (PLASST ) -- RAUL CHONG ([id number]) 1980 F Date Time Provider Department 06/09/24 2:20 PM BONNY HENRY During your visit today, we recorded the following information about you: Bonny Henry APRN.VOCATIONAL ADVISER 06/09/2024 2:48 PM Signed Plastic Surgery Post [...] questions or concerns during business hours call [phone] or after hours (after 5 pm or on the weekend) call [phone] and ask for the plastic surgery resident / fellow credit card control clerk for further instructions. If you have increasing [...] to clinic in 3 months Bonny Henry APRN.VOCATIONAL ADVISER June 09 (more content not included)... Normal [facility] Culture, Blood (WB)on 2024 CUB Blood cultures x2, f rom two different sites No growth in 5 days. Normal [facility] Comment on above: Performed By: #### M 200.1000 ####[facility] [id number] [place], [address] Bacteria Wnd Culton 06-04-19 25 Bacteria identified Cx Nom (Wound) CULTURE, WOUND: No growth GRAM STAIN: No organisms seen No Polymorphonuclear Leukocytes Normal Comment on above: Performed By: #### 6 [id number] #### [facility] CLIA [id number] [address] [place] [address] [place] CNOVon 06-03-2024 CNOV Office Visit ([facility] ) -- RAUL CHONG ([id number]) 1980 F Date Time Provider Department 06/03/24 1:00 PM BONNY HENRY [facility] During your visit today, we recorded the following information about you: Temperature Pulse Blood pressure Weight 99.1 degrees 77/minute 111/73 82.8 kg Height Last Period 1.727 m 05/15/24 Bonny Henry APRN.VOCATIONAL ADVISER 06/03/2024 1:35 PM Signed Plastic Surgery Post [...] questions or concerns during business hours call [phone] or after hours (after 5 pm or on the weekend) call [phone] and ask for the plastic surgery resident / fellow credit card control clerk for further instructions. If you have increasing [...] you have (more content not included)... Normal Anion gap in Serum or Plasma Ordered By: Carlos Dockery on 06-02-2024 Anion gap [Moles/Vol] 9 mmol/L - [facility] BUN/creatinine ratioOrdered By: Carlos Dockery on 06-02-2024 Urea nitrogen/Creatinine [Mass ratio] 17.7 mg/mg - [facility] Bilirubin, totalOrdered By: Carlos Dockery on 06-02-2024 Bilirubin [Mass/Vol] 0.23 mg/dL 0.00-1.30 [facility] Blood cultureOrdered By: Sendy Dockery on 06-02-2024 Bacteria identified Cx Nom (Bld) No growth in 5 days. [facility] CBC-Complete Blood Cnt No Di ffon 06-02-2024 Erythrocyte distribution width (RBC) [Ratio] 12.5 % Normal 11.6-14.6 [facility] Comment on above: Performed By: #### L 500.4050, L100.0500, L503.6005 #### [facility] [address] [place], [address] Hematocrit (Bld) [Volume fraction] 35.2 % Low 37-47 [facility] Comment on above: Performed By: #### L 500.4050, L100.0500, L503.6005 #### [facility] [address] [place], [address] Hemoglobin (Bld) [Mass/Vol] 11.7 g/dL Low 12.0-15.0 [facility] Comment on above: Performed By: #### L 500.4050, L100.0500, L503.6005 #### [facility] [address] [place], [address] MCH (RBC) [Entitic mass] 29.5 pg Normal 27.0-32.0 [facility] Comment on above: Performed By: #### L 500.4050, L100.0500, L503.6005 #### [facility] [address] [place], [address] MCHC (RBC) [Mass/Vol] 33.2 g/dL Normal 32-36 [facility] Comment on above: Performed By: #### L 500.4050, L100.0500, L503.6005 #### [facility] [address] [place], [address] MCV (RBC) [Entitic vol] 88.9 fL Normal 81-99 [facility] Comment on above: Performed By: #### L 500.4050, L100.0500, L503.6005 #### [facility] [address] [place], [address] Platelet mean volume (Bld) [Entitic vol] 9.9 fL Normal 6.2-12.0 [facility] Comment on above: Performed By: #### L 500.4050, L100.0500, L503.6005 #### [facility] [address] [place], [address] Platelets (Bld) [#/Vol] 224 10*3/uL Normal 150-450 [facility] Comment on above: Performed By: #### L 500.4050, L100.0500, L503.6005 #### [facility] [address] [place], [address] RBC (Bld) [#/Vol] 3.96 10*6/uL Low 4.2-5.4 [facility] Comment on above: Performed By: #### L 500.4050, L100.0500, L503.6005 #### [facility] [address] [place], [address] RDW SD 41.1 fl Normal 35.1-43.9 [facility] Comment on above: Performed By: #### L 500.4050, L100.0500, L503.6005 #### [facility] [address] [place], [address] WBC (Bld) [#/Vol] 4.6 10*3/uL Normal 4.4-11.0 [facility] Comment on above: Performed By: #### L 500.4050, L100.0500, L503.6005 #### [facility] [address] [place], [address] Carbon dioxide, total [Moles /volume] in Central venous bloodOrdered By: Carlos Dockery on 06-02-2024 CO2 [Moles/Vol] 23.8 mmol/L 21.0-32.0 [facility] Chloride assayOrdered By: Dallas Dockery on 06-02-2024 Chloride [Moles/Vol] 105 mmol/L 98-108 [facility] Comprehensive Metabolic Prof ilon 06-02-2024 Albumin [Mass/Vol] 3.9 g/dL Normal 3.5-5.0 [facility] Comment on above: Performed By: #### L 500.4050, L100.0500, L503.6005 #### [facility] [address] [place], [address] Albumin/Globulin [Mass ratio] 1.6 {ratio} Normal 0.9-2.4 [facility] Comment on above: Performed By: #### L 500.4050, L100.0500, L503.6005 #### [facility] [address] [place], [address] ALK PHOS 81 U/L Normal 35-104 [facility] Comment on above: Performed By: #### L 500.4050, L100.0500, L503.6005 #### [facility] [address] [place], [address] ALT [Catalytic activity/Vol] 28 U/L Normal <=34 [facility] Comment on above: Performed By: #### L 500.4050, L100.0500, L503.6005 #### [facility] [address] [place], [address] AST [Catalytic activity/Vol] 28 U/L Normal <=31 [facility] Comment on above: Performed By: #### L 500.4050, L100.0500, L503.6005 #### [facility] [address] [place], [address] Bilirubin [Mass/Vol] 0.23 mg/dL Normal 0.00-1.30 [facility] Comment on above: Performed By: #### L 500.4050, L100.0500, L503.6005 #### [facility] [address] [place], [address] BUN/CRE 17.7 RATIO Normal 10-20 [facility] Comment on above: Performed By: #### L 500.4050, L100.0500, L503.6005 #### [facility] [address] [place], [address] Calcium [Mass/Vol] 8.7 mg/dL Normal 7.6-11.0 [facility] Comment on above: Performed By: #### L 500.4050, L100.0500, L503.6005 #### [facility] [address] [place], [address] Chloride [Moles/Vol] 105 mmol/L Normal 98-108 [facility] Comment on above: Performed By: #### L 500.4050, L100.0500, L503.6005 #### [facility] [address] [place], [address] CO2 [Moles/Vol] 23.8 mmol/L Normal 21.0-32.0 [facility] Comment on above: Performed By: #### L 500.4050, L100.0500, L503.6005 #### [facility] [address] [place], [address] Creatinine [Mass/Vol] 0.65 mg/dL Low 0.70-1.20 [facility] Comment on above: Performed By: #### L 500.4050, L100.0500, L503.6005 #### [facility] [address] [place], [address] ECRCL 125.10 ml/min Normal 50-250 [facility] Comment on above: Performed By: #### L 500.4050, L100.0500, L503.6005 #### [facility] [address] [place], [address] GAP 9 Normal 5-15 [facility] Comment on above: Performed By: #### L 500.4050, L100.0500, L503.6005 #### [facility] [address] [place], [address] GFR/1.73 sq M.predicted among non-blacks MDRD (S/P/Bld) [Vol rate/Area] 111 mL/min/{1.73_m2} Normal >60 [facility] Comment on above: Result Comment: mL/m in/1.73m2 CKD-EPI Creatinine Equation (2020) Performed By: #### L 500.4050, L100.0500, L503.6005 #### [facility] [address] [place], [address] Globulin (S) [Mass/Vol] 2.4 g/dL Normal 2.2-4.2 [facility] Comment on above: Performed By: #### L 500.4050, L100.0500, L503.6005 #### [facility] [address] [place], [address] Glucose [Mass/Vol] 85 mg/dL Normal 70-99 [facility] Comment on above: Performed By: #### L 500.4050, L100.0500, L503.6005 #### [facility] [address] [place], [address] Potassium [Moles/Vol] 3.9 mmol/L Normal 3.3-5.1 [facility] Comment on above: Performed By: #### L 500.4050, L100.0500, L503.6005 #### [facility] [address] [place], [address] Sodium [Moles/Vol] 137 mmol/L Normal 133-145 [facility] Comment on above: Performed By: #### L 500.4050, L100.0500, L503.6005 #### [facility] [address] [place], [address] T PROT 6.4 g/dL Normal 5.9-8.4 [facility] Comment on above: Performed By: #### L 500.4050, L100.0500, L503.6005 #### [facility] [address] [place], [address] Urea nitrogen [Mass/Vol] 12 mg/dL Normal 4-19 [facility] Comment on above: Performed By: #### L 500.4050, L100.0500, L503.6005 #### [facility] [address] [place], [address] Emergency Department Summary on 06-02-2024 Emergency Department Summary [facility] Medical Records Department [address] [place] [address] Emergency Department Summary 06/02/24 MR#: [id number] Acct: [id number] Name: RAUL FLEMING Rep #: [id number] : 1980 43 From: Carlos Dockery MD PCP: Dr. Maira Escamilla MD Status:REG ER Location: ED HPI History of Present Illness Chief Complaint: Wound Narrative Narrative: 43-year-old female states that she had plastic surgery on her pannus in March, approximately 3 months ago. This was performed by Dr. Sterling with the [facility] out of [place]. Since then, she has had areas of [...] and infections, she spiked a fever today. [facility] Medical History (Updated 06/02/24 @ 16:09 by [...] to look (more content not included)... Normal [facility] Erythrocyte distribution wid th (RBC) [Ratio]Ordered By: Carlos Dockery on 06-02-2024 Erythrocyte distribution width (RBC) [Entitic vol] 41.1 fL 35.1-43.9 [facility] Erythrocyte distribution wid th ratioOrdered By: Carlos Dockery on 06-02-2024 Erythrocyte distribution width (RBC) [Ratio] 12.5 % 11.6-14.6 [facility] Erythrocyte distribution wid th standard deviationOrdered By: Carlos Dockeyr on 06-02-2024 Erythrocyte distribution width (RBC) [Ratio] 41.1 fl 35.1-43.9 [facility] Estimation of creatinine janel aranceOrdered By: Carlos Dockery on 06-02-2024 Estimated Creatinine Clearance Calc 125.10 ml/min 50-250 [facility] GFR/1.73 sq M.predicted michelle g non-blacks MDRD (S/P/Bld) [Vol rate/Area]Ordered By: Carlos Dockery on 06-02-2024 Estimated GFR (MDRD) Non-Af Amer 111 >60 [facility] Comment on above: mL/min/1.73m2 CKD-EP I Creatinine Equation (2020) Glomerular filtration rate ( GFR) estimation/1.73 sq m using serum, plasma, or whole bOrdered By: Carlos Dockery on 06-02-2024 GFR/1.73 sq M.predicted among non-blacks MDRD (S/P/Bld) [Vol rate/Area] 111 mL/min/{1.73_m2} >60 [facility] Comment on above: mL/min/1.73m2 CKD-EP I Creatinine Equation (2020) Hematocrit Auto (Bld) [Volum e fraction]Ordered By: Carlos Dockery on 06-02-2024 Hematocrit (Bld) [Volume fraction] 35.2 % Low 37-47 [facility] Hemoglobin measurementOrdere d By: Carlos Dockery on 06-02-2024 Hemoglobin (Bld) [Mass/Vol] 11.7 g/dL Low 12.0-15.0 [facility] - Chemistry and C hemistry - challengeOrdered By: Carlos Dockery on 06-02-2024 AST [Catalytic activity/Vol] 28 U/L <32 [facility] Lactic Acidon 06-02-2024 Lactate [Moles/Vol] mmol/L Normal 0.0-2.0 [facility] Comment on above: Order Comment: Y Performed By: #### L 500.4050, L100.0500, L503.6005 #### [facility] [address] [place], [address] Lactic acid measurementOrder ed By: Carlos Dockery on 06-02-2024 Lactate [Moles/Vol] mmol/L 0.0-2.0 [facility] MCV (mean corpuscular volume ) determinationOrdered By: Carlos Dockery on 06-02-2024 MCV (RBC) [Entitic vol] 88.9 fL 81-99 [facility] Mean corpuscular hemoglobin (MCH) determinationOrdered By: Carlos Dockery on 06-02-2024 MCH (RBC) [Entitic mass] 29.5 pg 27.0-32.0 [facility] Mean corpuscular hemoglobin concentration (MCHC) determinationOrdered By: Carlos Dockery on 06-02-2024 MCHC (RBC) [Mass/Vol] 33.2 g/dL 32-36 [facility] Mean platelet volume determi nationOrdered By: Carlos Dockery on 06-02-2024 Platelet mean volume (Bld) [Entitic vol] 9.9 fL 6.2-12.0 [facility] Platelet countOrdered By: Dallas Dockery on 06-02-2024 Platelets (Bld) [#/Vol] 224 10*3/uL 150-450 [facility] Potassium (Unsp spec) [Mass/ Vol]Ordered By: Carlos Dockery on 06-02-2024 Potassium [Moles/Vol] 3.9 mmol/L 3.3-5.1 [facility] Potassium measurement (mass/ volume)Ordered By: Carlos Dockery on 06-02-2024 Potassium (Unsp spec) [Mass/Vol] 3.9 mmol/L 3.3-5.1 [facility] RBC Auto (Bld) [#/Vol]Ordere d By: Carlos Dockery on 06-02-2024 RBC (Bld) [#/Vol] 3.96 10*6/uL Low 4.2-5.4 [facility] Serum creatinine measurement (mass/volume)Ordered By: Carlos Dockery on 06-02-2024 Creatinine [Mass/Vol] 0.65 mg/dL Low 0.70-1.20 [facility] Serum globulin measurementOr dered By: Carlos Dockery on 06-02-2024 Globulin (S) [Mass/Vol] 2.4 g/dL 2.2-4.2 [facility] Serum glucose measurement (m ass/volume)Ordered By: Carlos Dockery on 06-02-2024 Glucose [Mass/Vol] 85 mg/dL 70-99 [facility] Serum or plasma alanine lazo otransferase (ALT) measurementOrdered By: Carlos Dockery on 06-02-2024 ALT [Catalytic activity/Vol] 28 U/L <35 [facility] Serum or plasma albumin shayna urement (mass/volume)Ordered By: Carlos Dockery on 06-02-2024 Albumin [Mass/Vol] 3.9 g/dL 3.5-5.0 [facility] Serum or plasma albumin/glob ulin mass ratioOrdered By: Carlos Dockery on 06-02-2024 Albumin/Globulin [Mass ratio] 1.6 {ratio} 0.9-2.4 [facility] Serum or plasma alkaline rojelio sphatase measurementOrdered By: Carlos Dockery on 06-02-2024 ALP [Catalytic activity/Vol] 81 U/L 35-104 [facility] Serum or plasma calcium shayna urement (mass/volume)Ordered By: Carlos Dockery on 06-02-2024 Calcium [Mass/Vol] 8.7 mg/dL 7.6-11.0 [facility] Serum or plasma urea nitroge n measurement (mass/volume)Ordered By: Carlos Sainzharvinder on 06-02-2024 Urea nitrogen [Mass/Vol] 12 mg/dL 4-19 [facility] Sodium levelOrdered By: Carlos Dockery on 06-02-2024 Sodium [Moles/Vol] 137 mmol/L 133-145 [facility] Total proteinOrdered By: Sendy Dockery on 06-02-2024 Protein [Mass/Vol] 6.4 g/dL 5.9-8.4 [facility] White blood cell (WBC) count Ordered By: Carlos Sainzharvinder on 06-02-2024 WBC (Bld) [#/Vol] 4.6 10*3/uL 4.4-11.0 [facility] CNPNon 06-01-2024 CNPN Telephone (RHODA) -- RAUL CHONG ([id number]) 1980 F Date Time Provider Department 06/01/24 JAE STERLING During your visit today, we recorded the following information about you: Rachna Lynn 06/01/2024 1:38 PM Signed Patient advising that she spiked a fever - 100.7. Patient is heading in to work. It is okay to leave advice/instructions on voice mail or to send a message via [employer]. Ladi Tierney 06/02/2024 12:10 PM Signed Patient calling to state her fever continues to rise, even after being on new medication for 24 hours. PT also feels lightheaded. PT unsure if she should go to the ER. Please return call to advise [phone] Adrienne Alan, RN 06/02/2024 1:21 PM Signed [...] Encounter Status:Closed by LADI TIERNEY on 06/02/24 [facility] 05-26-2024 CNPN Telephone (INTMST) -- RAUL CHONG ([id number]) 1980 F Date Time Provider Department 05/26/24 JAE STERLING INTMST During your visit today, we recorded the following information about you: Tomeka Vidal 05/26/2024 10:12 AM Signed Patient states abscess is back in the same spot has yellow discharge red and swollen please advise. Advised to send pictures Alexia Brian RN 05/26/2024 10:32 AM Signed Responded to patient photos via [employer] Tomeka Vidal 05/31/2024 9:36 AM Signed Patient [...] Encounter Status:Closed by ALEXIA BRIAN on 05/26/24 [facility] CNCOon 05-12-2024 CNCO Letter Text [facility] CNOVon 05-12-2024 CNOV Office Visit (PLASST ) -- ORQUIDEA CHONGRA Blanton ([id number]) 1980 F Date Time Provider Department 05/12/24 10:00 AM BONNY HENRY During your visit today, we recorded the following information about you: Bonny Henry APRN.VOCATIONAL ADVISER 05/12/2024 11:50 AM Signed Plastic Surgery Post [...] 4 weeks after surgery. 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 Do not [...] communicate thr (more content not included)... Normal [facility] CNCOon 04-14-2024 CNCO Letter Text Normal [facility] CNOVon 04-14-2024 CNOV Office Visit (PLASST ) -- RAUL CHONG ([id number]) 1980 F Date Time Provider Department 04/14/24 11:40 AM BONNY HENRY During your visit today, we recorded the following information about you: Bonny Henry APRN.VOCATIONAL ADVISER 04/14/2024 12:13 PM Addendum Plastic Surgery Post [...] 4 weeks after surgery. 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 Do not [...] may al (more content not included)... Normal [facility] [place] 04-05-2024 LANDON Telephone (RHODA) -- RAUL CHONG ([id number]) 1980 F Date Time Provider Department 04/05/24 [...] a nurse. Please return call to advise [phone] Alexia Brian, GEORGINA 04/06/2024 10:44 AM Addendum [...] disease in (more content not included)... Normal [facility] CNOVon 03-31-2024 CNOV Office Visit (PLASST ) -- RAUL CHONG ([id number]) 1980 F Date Time Provider Department 03/31/24 1:20 PM BONNY HENRY During your visit today, we recorded the following information about you: Bonny Henry APRN.VOCATIONAL ADVISER 03/31/2024 2:01 PM Signed Plastic Surgery Post [...] 4 weeks after surgery. 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 Do not [...] dry dr (more content not included)... Normal [facility] [place] 03-28-2024 CNPN Telephone (PLASMN) -- RAUL CHONG ([id number]) 1980 F Date Time Provider Department 03/28/24 [...] Familia Cruz MD Plastic Surgery Resident (PGY-2) [phone] After 6 pm and on-weekends, please page [phone] (on-call plastic surgery) Allergies As of Date: 03/28/2024 Noted Allergy Reaction GABAPENTIN 04/13/2014 14 - Other: See Comments PREDNISONE 04/18/2015 1 - Mental Status Change LEXAPRO (ESCITALOPRAM) 02/22/2024 1 - Mental Status Change Comments: Severe moustapha TREE [employer] SHRUB POLLEN 07/22/2023 14 - Other: See Comments TOPAMAX (TOPIRAMATE) 12/12/2016 14 - Other: See Comments Comments: anxiety Date Reviewed: 03/26/2024 Reviewed by: Starr Ram APRN.VOCATIONAL ADVISER - Fully Assessed Reason for Visit: Wound [...] Gastroesophageal re (more content not included)... Normal [facility] CNOVon 03-26-2024 CNOV Office Visit (WSTR ) -- CHONGRAUL Harvinder ([id number]) 1980 F Date Time Provider Department 03/26/24 10:30 AM STARR RAM [facility] During your visit today, we recorded the following information about you: Temperature Pulse Respiration Blood pressure 97.4 degrees 84/minute 16/minute 112/64 Weight 83.6 kg Starr Ram APRN.VOCATIONAL ADVISER 03/26/2024 11:01 AM Signed Subjective The history is provided by the patient. No technical services librarian was used. RAJINDER Kurtzra Harvinder Chong is [...] have confirmed and edited as necessary, the [facility] Review of Systems Constitutional: [...] 1 ca (more content not included)... Normal [facility] CNOVon 03-24-2024 CNOV Office Visit (PLASST ) -- RAUL CHONG ([id number]) 1980 F Date Time Provider Department 03/24/24 [...] 4 weeks after surgery. 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 Do not perform yard work. no core exercises for 6-8 weeks following abdominal surgery -Continue surgical bra, okay for soft bra/sports bra at 2 weeks, no underwire -Continue abdominal binder, compression garment- okay for spanx type garment -No water submersion/baths until a (more content not included)... Normal [facility] [place] 03-21-2024 CNPN Telephone (PLASST) -- RAUL CHONG ([id number]) 1980 F Date Time Provider Department 03/21/24 [...] Visit: Nausea, stomach upset [Other] Patient Question [9025] Prescriptions as of 03/21/2024 - acetaminophen (TYLENOL) [...] due to (more content not included)... Normal [facility] ANES POSTPROC EVALon 025 ANES POSTPROC EVAL HNO ID: [id number] Author: LEEROY JOY MD Service: Anesthesiology Author Type: Anesthesiologist Type: Anesthesia Postprocedure Evaluation Filed: 03/14/2024 10:59 Note Text: POST ANESTHESIA EVALUATION NOTE : 1980 Procedure Summary Date: 03/14/24 Room / Location: [address] Anesthesia Start: 0756 Anesthesia Stop: 1032 [...] with this procedure. Documented by Yemi Jarvis APRN.HEAD CHAR FILTER TANK TENDER 03/14/2024 10:32 AM EST SIGNATURE: Leeroy Joy MD PATIENT NAME: Raul Chong DATE: March 14, 2024 TIME: 10:59 AM CSN: [id number] Normal [facility] ANES PRE-OPon 03-14-2024 ANES PRE-OP HNO ID: [id number] Author: LEEROY JOY MD Service: Anesthesiology Author Type: Anesthesiologist Type: Anesthesia Preprocedure Evaluation Filed: 03/14/2024 07:10 Note Text: ANESTHESIOLOGY DAY OF SURGERY NOTE : 1980 Procedure Information Date/Time: 03/14/24729 Procedure: PANNICULECTOMY (Abdomen) Location: [place] [address] / [facility] Surgeons: Jae Sterling MD Estimated [...] and consent discussed: yes. Patient / Responsible Democrat agrees to proceed: yes Patient / Surrogate [...] March 14, 2024 TIME: 7:09 AM CSN: [id number] [facility] BRIEF OP NOTon 03-14-2024 BRIEF OP NOT HNO ID: [id number] Author: LACI BOOKER MD Service: Plastic Surgery Author Type: Resident Type: Brief Op Note Filed: 03/14/2024 10:18 Note Text: PLASTIC AND RECONSTRUCTIVE SURGERY BRIEF OPERATIVE NOTE LOG ID: [id number] Surgery/Procedure Date: 03/14/2024 Incision/Procedure Start Time: 8:19 AM Incision Close/Procedure End Time: 10:14 AM Surgeon(s)/Proceduralist(s ) and Boarder Machine(s): Surgeons and Role: * Jae Sterling MD [...] 14, 2024 TIME: 10:17 AM PAGER/CONTACT #: [phone] [facility] HISTORY PHYSICALon HISTORY PHYSICAL HNO ID: [id number] Author: JAE STERLING MD Service: Plastic Surgery Author Type: Resident Type: H&P Filed: 03/18/2024 10:06 Note Text: -- Attestation signed by Jae Sterling MD at 03/18/2024 10:06 AM UPDATED HISTORY AND PHYSICAL EXAMINATION SERVICE DATE: 03/14/2024 Participation of a fellow, resident, medical student, or advanced practice provider student in performing the sensitive examination was discussed with the patient or authorized environmental marketing representative. The patient or authorized environmental marketing representative has agreed to proceed with the [...] Laci Booker MD, MPH Plastic Surgery P: [phone] After 6 pm and on-weekends, please page [phone] (on-call plastic surgery) Normal [facility] OPERATIVE NOon 03-14-2024 OPERATIVE NO HNO ID: [id number] Author: JAE STERLING MD Service: Plastic Surgery Author Type: Physician Type: Operative Report Filed: 03/14/2024 15:17 Note Text: PLASTIC SURGERY--OPERATIVE REPORT LOG ID: [id number] Surgery/Procedure Date: 03/14/2024 Incision/Procedure Start Time: 8:19 AM Incision Close/Procedure End Time: 10:14 AM Surgeon(s)/Proceduralist(s ) and Boarder Machine(s): Surgeons and Role: * Jae Sterling MD [...] to surgical pathology. Drains: x 1 (15 Luxembourg[place] Shay) Complications: None. Disposition: To recovery room [...] 2024 TIME: 3:12 PM PAGER/CONTACT #: Normal [facility] SURGICAL PATHOLOGYon 025 CASE REPORT Normal [facility] Comment on above: Order Comment: Speci men Type: TISSUE SPECIMENOrdering Facility: [facility] Address: [address] [place] [address] Result Comment: Surg [facility] Pathology Report Case: [id number] Authorizing Provider: Jae Sterling MD Collected: 03/14/2024 08:53 AM Ordering Location: Ambulatory Surgery Received: 03/14/2024 10:00 AM Pathologist: Jesus Singh MD Specimen: Pannus, Abdomen pannus Performed By: #### S ####[facility] [id number] [place] [id number] [place] CLINICAL HISTORY Normal [facility] Comment on above: Order Comment: Speci men Type: TISSUE SPECIMENOrdering Facility: [facility] Address: [address] [place], [place] [id number] Result Comment: Pre- op diagnosis: Abdominal pannus [E65] Loose skin [L98.7] Rash [R21] Dermatitis [L30.9] Intertrigo [L30.4] Performed By: #### S ####[facility] [id number] [place] [address] [place] FINAL DIAGNOSIS Normal [facility] Comment on above: Order Comment: Speci men Type: TISSUE SPECIMENOrdering Facility: [facility] Address: [address] [place] [address] Result Comment: Soft tissue, abdominal pannus, resection: - Skin with abundant subcutaneous adipose tissue. Performed By: #### S ####[facility] [id number] [address] [place] FINAL PERFORMING LAB Normal [facility] Comment on above: Order Comment: Speci men Type: TISSUE SPECIMENOrdering Facility: [facility] Address: [address] [place] [address] Result Comment: Diag nostic interpretation performed at: [facility], [address] [id number] CLIA# [id number] Manufacturing Industrial Engineer: Patrick Smith MD Performed By: #### S ####[facility] [id number] [address] [place] GROSS DESCRIPTION A. Pannus Normal [facility] Comment on above: Order Comment: Speci men Type: TISSUE SPECIMENOrdering Facility: [facility] Address: [address] [place] [address] Result Comment: Rece ived in formalin, labeled abdomen pannus, is a 2129.1 g, 47 x 19.5 x 4.5 cm aggregate of unoriented yellow-pink, lobulated, fibrofatty tissue segments with attached sapp wrinkled skin. The skin surface is grossly unremarkable. Sectioning reveals approximately 75% fatty breast tissue with approximately 25% dense white-pink fibrous tissue. No lesions are identified. Insurance Claims Representative sections to include skin are submitted in A1. ROBERT March 14, 2024 4:32 PM Gross examination performed at [facility], [address] [place] [address] Performed By: #### S ####[facility]IA [id number] [place] [address] [place] NICOTINE/COTININEOrdered By: Nabor Cheatham on 03-13-2024 Cotinine [Mass/Vol] ng/mL NINF - 2 ng/mL [facility] Comment on above: Active tobacco produ ct [...] and its performance characteristics determined by the [facility] Department of Pathology and Laboratory Medicine. It has not been cleared or approved by the FDA. The [facility] Department of Pathology and Laboratory Medicine is regulated under CLIA as qualified to perform high-complexity testing. This test is used for clinical purposes. It should not be regarded as investigational or for research. Interpretation and review of laboratory results Normal [facility] Nicotine [Mass/Vol] ng/mL NINF - 2 ng/mL [place] CNOVon 03-10-2024 CNOV Office Visit (PLASST ) -- RAUL CHONG ([id number]) 1980 F Date Time Provider Department 03/10/24 [...] influenza A 02/28/2024 seen in [facility] and prescribed Tamiflu. HISTORIES PAST MEDICAL HISTORY [...] History and (more content not included)... Normal [facility] NICOTINE/COTININEon 03-10-19 25 Cotinine [Mass/Vol] <2 Normal <2 [facility] Comment on above: Order Comment: Speci men Type: BLOOD SPECIMEN [facility] Address: [address] [place] [address] Result Comment: Acti ve tobacco product user: [...] and its performance characteristics determined by the [facility] Department of Pathology and Laboratory Medicine. It has not been cleared or approved by the FDA. The [facility] Department of Pathology and Laboratory Medicine is regulated under CLIA as qualified to perform high-complexity testing. This test is used for clinical purposes. It should not be regarded as investigational or for research. Performed By: #### N ICOT #### [facility] CLIA [id number] [address] [place] [address] [place] Nicotine [Mass/Vol] <2 Normal <2 [facility] Comment on above: Order Comment: Speci men Type: BLOOD SPECIMEN [facility] Address: [address] [place] [address] Performed By: #### N ICOT #### [facility] CLIA [id number] [address] [place], [place] [id number] [place] Orthopedic Visit Reporton Orthopedic Visit Report [facility] [place] [address] OFFICE VISIT Date of Service: 03/08/24 MR#: [id number] Acct: [id number] Name: RAUL FLEMING DIANNA Rep #: [id number] : 1980 Provider: FRANCISCO Atkinson Age/Sex: 43/F Location: [facility] [place] [place] Status: Signed Intake Vital Signs 09/02/23 01:09 03/08/24 10:34 Height 91 ft 8.4 in 5 ft 8 in Weight: 184 lb 4 oz BMI 28.0 Intake Visit Reasons: CERVICAL SPINE Accompanied by: Self Allergies gabapentin (From Neurontin) Allergy (Verified 09/02/23 01:17) Swelling topiramate (From Topamax) Adverse Reaction (Mild, Verified 09/02/23 01:17) TINGLING prednisone Adverse Reaction (Verified 09/02/23 01:17) Other [facility] Medical History (Updated 03/08/24 @ 12:31 by [...] of her neck done at [facility] that was done on 02/08/24. She does [...] her neck 5 years ago which didn't caregivers non medical her any relief but didn't make it [...] pen and her phone. Says that her on site nurse strength as worsened. She states that one [...] the upper extremities shows 4+ power left on site nurse strength, all other muscle groups show 5 [...] initial encounter Plan Reviewed prior imaging from [facility]. Cervical xrays shows straightening of normal cervical [...] another surgery. 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 She says if she does decide to have the surgery would be (more content not included)... Normal [facility] 03-02-2024 LANDON Telephone (SAMIR) -- RAUL CHONG ([id number]) 1980 F Date Time Provider Department 03/02/24 MARY MOURA During your visit today, we recorded the following information about you: Mary Moura APRN.VOCATIONAL ADVISER 03/02/2024 9:48 AM Signed FYI. Pt was seen for PACC and cleared but pt recently positive with influenza A 02/28/2024 seen in [facility] and prescribed Tamiflu. Pt is scheduled for Panniculectomy 03/14/2024 in [place]. Please advise if okay to proceed? Allergies [...] Date Reviewed: 02/28/2024 Reviewed by: Quique, Makayla, MOLDING MACHINE OPERATOR HELPER - Fully Assessed Reason for Visit: Pre-op [...] Encounter Status:Closed by MARY MOURA on 07/14/24 [facility] CNOVon 02-28-2024 CNOV Office Visit (UCTR ) -- RAUL CHONG ([id number]) 1980 F Date Time Provider Department 02/28/24 2:30 PM [facility] During your visit today, we recorded [...] labs e (more content not included)... Normal [facility] INFLUENZA A&B MOLECULAR (POC )on 02-28-2024 Flu A (POCT) Positive Abnormal Negative [facility] Comment on above: Location:[address], [address] Interpretation and review of laboratory results Abnormal [facility] Procedural Control Valid [facility] Location:[facility] [place], [address], [place], [address] [facility] [place] 02-23-2024 CNPN Telephone (TY) -- RAUL CHONG ([id number]) 1980 F Date Time Provider Department 02/23/24 [...] Date Reviewed: 02/22/2024 Reviewed by: Anna Nino APRN.VOCATIONAL ADVISER - Fully Assessed Prescriptions as of 02/25/2024 [...] Encounter Status:Closed by ROLA UMANZOR on 02/25/24 [facility] CNOVon 02-22-2024 CNOV Office Visit (FAMPWS ) -- RAUL CHONG ([id number]) 1980 F Date Time Provider Department 02/22/24 12:40 PM [facility] During your visit today, we recorded the following information about you: Pulse Respiration Blood pressure Weight 69/minute 16/minute 128/72 83 kg Anna Nino, DIE MAKER TRIM.VOCATIONAL ADVISER 02/22/2024 12:58 PM Signed This is a [...] Mental Sta (more content not included)... Normal [facility] Michael 02-22-2024 LANDON Telephone (FAMPWS) -- RAUL CHONG ([id number]) 1980 F Date Time Provider Department 02/22/24 [...] Date Reviewed: 02/15/2024 Reviewed by: Mary Moura APRN.VOCATIONAL ADVISER - Fully Assessed Reason for Visit: Future [...] Status:Closed by MARIETTA HARMAN on 02/22/24 Normal [facility] Comprehensive metabolic 2000 panelon 02-16-2024 Albumin [Mass/Vol] 4.0 g/dL 3.9 - 4.9 g/dL [facility] ALP [Catalytic activity/Vol] 77 U/L 34 - 123 U/L [facility] ALT [Catalytic activity/Vol] 23 U/L 7 - 38 U/L [facility] Anion gap [Moles/Vol] 11 mmol/L 8 - 15 mmol/L [facility] AST [Catalytic activity/Vol] 26 U/L 13 - 35 U/L [facility] Bilirubin [Mass/Vol] 0.3 mg/dL 0.2 - 1 .3 mg/dL [facility] Calcium [Mass/Vol] 8.9 mg/dL 8.5 - 10. 2 mg/dL [facility] Chloride [Moles/Vol] 104 mmol/L 98 - 10 7 mmol/L [facility] CO2 [Moles/Vol] 22 mmol/L 22 - 30 mmol/L [facility] Creatinine [Mass/Vol] 0.80 mg/dL 0.58 - 0.96 mg/dL [facility] GFR/1.73 sq M.predicted among non-blacks MDRD (S/P/Bld) [Vol rate/Area] 93 mL/min/{1.73_m2} - PINF [facility] Comment on above: Estimated Glomerular Filtration Rate [...] [Mass/Vol] 82 mg/dL 74 - 99 mg/dL [facility] Comment on above: The [place] Diab[employer] s Association (ADA) provides guidance for [...] Standards of Medical Care in Diabetes 2016, [place] [employer]. Diabetes Care. 2016.39(Suppl 1). Interpretation and review of laboratory results Normal [facility] Potassium [Moles/Vol] 4.6 mmol/L 3.7 - 5.1 mmol/L [facility] Protein [Mass/Vol] 6.7 g/dL 6.3 - 8.0 g/dL [facility] Sodium [Moles/Vol] 137 mmol/L 136 - 144 mmol/L [facility] Urea nitrogen [Mass/Vol] 15 mg/dL 7 - 21 mg/dL [place] CBC W Auto Differential pane l (Bld)on 02-15-2024 Basophils (Bld) [#/Vol] 0.04 10*3/uL [facility] Basophils/100 WBC (Bld) 0.7 % [facility] Differential cell count method Nom (Bld) Auto [facility] Eosinophils (Bld) [#/Vol] 0.34 10*3/uL [facility] Eosinophils/100 WBC (Bld) 5.9 % [facility] Erythrocyte distribution width (RBC) [Ratio] 13.1 % 11.5 - 15.0 % [facility] Hematocrit (Bld) [Volume fraction] 38.3 % 36.0 - 46.0 % [facility] Hemoglobin (Bld) [Mass/Vol] 12.5 g/dL 11.5 - 15.5 g/dL [facility] Immature granulocytes (Bld) [#/Vol] [facility] Immature granulocytes/100 WBC (Bld) 0.2 % [facility] Lymphocytes (Bld) [#/Vol] 2.08 10*3/uL [facility] Lymphocytes/100 WBC (Bld) 36.1 % [facility] MCH (RBC) [Entitic mass] 28.8 pg 26.0 - 34.0 pg [facility] MCHC (RBC) [Mass/Vol] 32.6 g/dL 30.5 - 36.0 g/dL [facility] MCV (RBC) [Entitic vol] 88.2 fL 80.0 - 100.0 fL [facility] Monocytes (Bld) [#/Vol] 0.53 10*3/uL [facility] Monocytes/100 WBC (Bld) 9.2 % [facility] Neutrophils (Bld) [#/Vol] 2.76 10*3/uL [facility] Neutrophils/100 WBC (Bld) 47.9 % [facility] Nucleated RBC (Bld) [#/Vol] [facility] Nucleated RBC/100 WBC (Bld) [Ratio] 0.0 % /100 WBC [facility] Platelet mean volume (Bld) [Entitic vol] 10.5 fL 9.0 - 12.7 fL [facility] Platelets (Bld) [#/Vol] 233 10*3/uL [facility] RBC (Bld) [#/Vol] 4.34 10*6/uL 3.90 - 5.20 m/uL [facility] WBC (Bld) [#/Vol] 5.76 10*3/uL [facility] Basophils (Bld) [#/Vol] 0.04 10*3/uL Normal <0.11 [facility] Comment on above: Order Comment: Speci men Type: BLOOD SPECIMEN Ordering Facility: [facility] Address: [address] [place] [address] Performed By: #### 5 7021-8 #### [facility] CLIA [id number] [address] [place] [address] [place] Basophils/100 WBC (Bld) 0.7 % Normal [facility] Comment on above: Order Comment: Speci men Type: BLOOD SPECIMEN Ordering Facility: [facility] Address: [address] [place] [address] Performed By: #### 5 7021-8 #### [facility] CLIA [id number] [address] [place] [address] [place] Differential cell count method Nom (Bld) Auto Normal [facility] Comment on above: Order Comment: Speci men Type: BLOOD SPECIMEN Ordering Facility: [facility] Address: [address] [place] [address] Performed By: #### 5 7021-8 #### [facility] CLIA [id number] [address] [place] [address] [place] Eosinophils (Bld) [#/Vol] 0.34 10*3/uL Normal <0.46 [facility] Comment on above: Order Comment: Speci men Type: BLOOD SPECIMEN Ordering Facility: [facility] Address: [address] [place] [address] Performed By: #### 5 7021-8 #### [facility] CLIA [id number] [address] [place] [address] [place] Eosinophils/100 WBC (Bld) 5.9 % Normal [facility] Comment on above: Order Comment: Speci men Type: BLOOD SPECIMEN Ordering Facility: [facility] Address: [address] [place] [address] Performed By: #### 5 7021-8 #### [facility] CLIA [id number] [address] [place] [address] [place] Erythrocyte distribution width (RBC) [Ratio] 13.1 % Normal 11.5-15.0 [facility] Comment on above: Order Comment: Speci men Type: BLOOD SPECIMEN Ordering Facility: [facility] Address: [address] [place] [address] Performed By: #### 5 7021-8 #### [facility] CLIA [id number] [address] [place] [address] [place] Hematocrit (Bld) [Volume fraction] 38.3 % Normal 36.0-46.0 [facility] Comment on above: Order Comment: Speci men Type: BLOOD SPECIMEN Ordering Facility: [facility] Address: [address] [place] [address] Performed By: #### 5 7021-8 #### [facility] CLIA [id number] [address] [place] [address] [place] Hemoglobin (Bld) [Mass/Vol] 12.5 g/dL Normal 11.5-15.5 [facility] Comment on above: Order Comment: Speci men Type: BLOOD SPECIMEN Ordering Facility: [facility] Address: [address] [place] [address] Performed By: #### 5 7021-8 #### [facility] CLIA [id number] [address] [place] [address] [place] Immature granulocytes (Bld) [#/Vol] 10*3/uL Normal <0.10 [facility] Comment on above: Order Comment: Speci men Type: BLOOD SPECIMEN Ordering Facility: [facility] Address: [address] [place] [address] Performed By: #### 5 7021-8 #### [facility] CLIA [id number] [address] [place] [address] [place] Immature granulocytes/100 WBC (Bld) 0.2 % Normal [facility] Comment on above: Order Comment: Speci men Type: BLOOD SPECIMEN Ordering Facility: [facility] Address: [address] [place] [address] Performed By: #### 5 7021-8 #### [facility] CLIA [id number] [address] [place] [address] [place] Lymphocytes (Bld) [#/Vol] 2.08 10*3/uL Normal 1.00-4.00 [facility] Comment on above: Order Comment: Speci men Type: BLOOD SPECIMEN Ordering Facility: [facility] Address: [address] [place] [address] Performed By: #### 5 7021-8 #### [facility] CLIA [id number] [address] [place] [address] [place] Lymphocytes/100 WBC (Bld) 36.1 % Normal [facility] Comment on above: Order Comment: Speci men Type: BLOOD SPECIMEN Ordering Facility: [facility] Address: [address] [place] [address] Performed By: #### 5 7021-8 #### [facility] CLIA [id number] [address] [place] [address] [place] MCH (RBC) [Entitic mass] 28.8 pg Normal 26.0-34.0 [facility] Comment on above: Order Comment: Speci men Type: BLOOD SPECIMEN Ordering Facility: [facility] Address: [address] [place] [address] Performed By: #### 5 7021-8 #### [facility] CLIA [id number] [address] [place] [address] [place] MCHC (RBC) [Mass/Vol] 32.6 g/dL Normal 30.5-36.0 [facility] Comment on above: Order Comment: Speci men Type: BLOOD SPECIMEN Ordering Facility: [facility] Address: [address] [place] [address] Performed By: #### 5 7021-8 #### [facility] CLIA [id number] [address] [place] [address] [place] MCV (RBC) [Entitic vol] 88.2 fL Normal 80.0-100.0 [facility] Comment on above: Order Comment: Speci men Type: BLOOD SPECIMEN Ordering Facility: [facility] Address: [address] [place] [address] Performed By: #### 5 7021-8 #### [facility] CLIA [id number] [address] [place] [address] [place] Monocytes (Bld) [#/Vol] 0.53 10*3/uL Normal <0.87 [facility] Comment on above: Order Comment: Speci men Type: BLOOD SPECIMEN Ordering Facility: [facility] Address: [address] [place] [address] Performed By: #### 5 7021-8 #### [facility] CLIA [id number] [address] [place] [address] [place] Monocytes/100 WBC (Bld) 9.2 % Normal [facility] Comment on above: Order Comment: Speci men Type: BLOOD SPECIMEN Ordering Facility: [facility] Address: [address] [place] [address] Performed By: #### 5 7021-8 #### [facility] CLIA [id number] [address] [place] [address] [place] Neutrophils (Bld) [#/Vol] 2.76 10*3/uL Normal 1.45-7.50 [facility] Comment on above: Order Comment: Speci men Type: BLOOD SPECIMEN Ordering Facility: [facility] Address: [address] [place] [address] Performed By: #### 5 7021-8 #### [facility] CLIA [id number] [address] [place] [address] [place] Neutrophils/100 WBC (Bld) 47.9 % Normal [facility] Comment on above: Order Comment: Speci men Type: BLOOD SPECIMEN Ordering Facility: [facility] Address: [address] [place] [address] Performed By: #### 5 7021-8 #### [facility] CLIA [id number] [address] [place] [address] [place] Nucleated RBC (Bld) [#/Vol] 10*3/uL Normal <0.01 [facility] Comment on above: Order Comment: Speci men Type: BLOOD SPECIMEN Ordering Facility: [facility] Address: [address] [place] [address] Performed By: #### 5 7021-8 #### [facility] CLIA [id number] [address] [place] [address] [place] Nucleated RBC/100 WBC (Bld) [Ratio] 0.0 /100 WBC Normal [facility] Comment on above: Order Comment: Speci men Type: BLOOD SPECIMEN Ordering Facility: [facility] Address: [address] [place] [address] Performed By: #### 5 7021-8 #### [facility] CLIA [id number] [address] [place] [address] [place] Platelet mean volume (Bld) [Entitic vol] 10.5 fL Normal 9.0-12.7 [facility] Comment on above: Order Comment: Speci men Type: BLOOD SPECIMEN Ordering Facility: [facility] Address: [address] [place] [address] Performed By: #### 5 7021-8 #### [facility] CLIA [id number] [address] [place] [address] [place] Platelets (Bld) [#/Vol] 233 10*3/uL Normal 150-400 [facility] Comment on above: Order Comment: Speci men Type: BLOOD SPECIMEN Ordering Facility: [facility] Address: [address] [place] [address] Performed By: #### 5 7021-8 #### [facility] CLIA [id number] [address] [place] [address] [place] RBC (Bld) [#/Vol] 4.34 10*6/uL Normal 3.90-5.20 [facility] Comment on above: Order Comment: Speci men Type: BLOOD SPECIMEN Ordering Facility: [facility] Address: [address] [place] [address] Performed By: #### 5 7021-8 #### [facility] CLIA [id number] [address] [place] [address] [place] WBC (Bld) [#/Vol] 5.76 10*3/uL Normal 3.70-11.00 [facility] Comment on above: Order Comment: Speci men Type: BLOOD SPECIMEN Ordering Facility: [facility] Address: [address] [place] [address] Performed By: #### 5 7021-8 #### [facility] CLIA [id number] [address] [place] [address] [place] Michael 02-15-2024 LANDON Telephone (SAMIR) -- TORIEMOIRAUL Harvinder ([id number]) 1980 F Date Time Provider Department 02/15/24 MARY MOURA During your visit today, we recorded the following information about you: Norma Mcnamara LPN 02/15/2024 3:46 PM Signed Patient was scheduled for in person PACC appt at 3:20pm today. Patient did not check in for appt, called patient at [facility] to see if they were planning [...] Status:Closed by NORMA MCNAMARA on 02/15/24 Normal [facility] Comprehensive metabolic 2000 panelon 02-15-2024 Albumin [Mass/Vol] 4.0 g/dL Normal 3.9-4.9 [facility] Comment on above: Order Comment: Speci men Type: BLOOD SPECIMEN Ordering Facility: [facility] Address: [address] [place] [address] Performed By: #### 2 4323-8 #### [facility] CLIA [id number] [address] [place] [address] [place] ALP [Catalytic activity/Vol] 77 U/L Normal 34-123 [facility] Comment on above: Order Comment: Speci men Type: BLOOD SPECIMEN Ordering Facility: [facility] Address: [address] [place] [address] Performed By: #### 2 4323-8 #### [facility] CLIA [id number] [address] [place] [address] [place] ALT [Catalytic activity/Vol] 23 U/L Normal 7-38 [facility] Comment on above: Order Comment: Speci men Type: BLOOD SPECIMEN Ordering Facility: [facility] Address: [address] [place] [address] Performed By: #### 2 4323-8 #### [facility] CLIA [id number] [address] [place] [address] [place] Anion gap [Moles/Vol] 11 mmol/L Normal 8-15 [facility] Comment on above: Order Comment: Speci men Type: BLOOD SPECIMEN Ordering Facility: [facility] Address: [address] [place] [address] Performed By: #### 2 4323-8 #### [facility] CLIA [id number] [address] [place] [address] [place] AST [Catalytic activity/Vol] 26 U/L Normal 13-35 [facility] Comment on above: Order Comment: Speci men Type: BLOOD SPECIMEN Ordering Facility: [facility] Address: [address] [id number] Performed By: #### 2 4323-8 #### [facility] CLIA [id number] [address] [place] [address] [place] Bilirubin [Mass/Vol] 0.3 mg/dL Normal 0.2-1.3 [facility] Comment on above: Order Comment: Speci men Type: BLOOD SPECIMEN Ordering Facility: [facility] Address: [address] [place] [address] Performed By: #### 2 4323-8 #### [facility] CLIA [id number] [address] [place] [address] [place] Calcium [Mass/Vol] 8.9 mg/dL Normal 8.5-10.2 [facility] Comment on above: Order Comment: Speci men Type: BLOOD SPECIMEN Ordering Facility: [facility] Address: [address] [place] [address] Performed By: #### 2 4323-8 #### [facility] CLIA [id number] [address] [place] [address] [place] Chloride [Moles/Vol] 104 mmol/L Normal 98-107 [facility] Comment on above: Order Comment: Speci men Type: BLOOD SPECIMEN Ordering Facility: [facility] Address: [address] [place] [address] Performed By: #### 2 4323-8 #### [facility] CLIA [id number] [address] [place] [address] [place] CO2 [Moles/Vol] 22 mmol/L Normal 22-30 [facility] Comment on above: Order Comment: Speci men Type: BLOOD SPECIMEN Ordering Facility: [facility] Address: [address] [place], [place] [address] Performed By: #### 2 4323-8 #### [facility] CLIA [id number] [address] [place] [address] [place] Creatinine [Mass/Vol] 0.80 mg/dL Normal 0.58-0.96 [facility] Comment on above: Order Comment: Naa covarrubias Type: BLOOD SPECIMEN Ordering Facility: [facility] Address: [address] [place] [address] Performed By: #### 2 4323-8 #### [facility] CLIA [id number] [address] [place] [address] [place] Creatinine and Glomerular filtration rate.predicted panel (S/P/Bld) 93 mL/min/1.73m??? Normal >=60 [facility] Comment on above: Order Comment: Naa covarrubias Type: BLOOD SPECIMEN Ordering Facility: [facility] Address: [address] [place] [address] Result Comment: Lala mated Glomerular Filtration Rate [...] GFR. Performed By: #### 2 4323-8 #### [facility] CLIA [id number] [address] [place] [address] [place] Glucose [Mass/Vol] 82 mg/dL Normal 74-99 [facility] Comment on above: Order Comment: Naa covarrubias Type: BLOOD SPECIMEN Ordering Facility: [facility] Address: [address] [place] [address] Result Comment: The [place] Diabetes Association (ADA) provides guidance for cutoff [...] Standards of Medical Care in Diabetes 2016, [place] [employer]. Diabetes Care. 2016.39(Suppl 1). Performed By: #### 2 4323-8 #### [facility] CLIA [id number] [address] [place] [address] [place] Potassium [Moles/Vol] 4.6 mmol/L Normal 3.7-5.1 [facility] Comment on above: Order Comment: Speci men Type: BLOOD SPECIMEN Ordering Facility: [facility] Address: [address] [place] [address] Performed By: #### 2 4323-8 #### [facility] CLIA [id number] [address] [place] [address] [place] Protein [Mass/Vol] 6.7 g/dL Normal 6.3-8.0 [facility] Comment on above: Order Comment: Speci men Type: BLOOD SPECIMEN Ordering Facility: [facility] Address: [address] [place] [address] Performed By: #### 2 4323-8 #### [facility] CLIA [id number] [address] [place] [address] [place] Sodium [Moles/Vol] 137 mmol/L Normal 136-144 [facility] Comment on above: Order Comment: Speci men Type: BLOOD SPECIMEN Ordering Facility: [facility] Address: [address] [place] [address] Performed By: #### 2 4323-8 #### [facility] CLIA [id number] [address] [place] [address] [place] Urea nitrogen [Mass/Vol] 15 mg/dL Normal 7-21 [facility] Comment on above: Order Comment: Speci men Type: BLOOD SPECIMEN Ordering Facility: [facility] Address: [address] [place], [place] [address] Performed By: #### 2 4323-8 #### [facility] CLIA [id number] [address] [place] [address] [place] HISTORY PHYSICALon HISTORY PHYSICAL HNO ID: [id number] Author: MARY MOURA APRN.FATEMEH Service: ? Author [...] large neck Non-male patient STOP-Bang Score: 0 [id number] Score: Age: <65 Sex: female CHF history: No Hypertension history: No Stroke/TIA/thromboembolism history: No Vascular disease history: No Diabetes history: No [id number] Score: 1 ARISCAT Score: Age: <=50 Preoperative [...] Imm Admin: COVID-19 vaccine, age 12+ yr (PFIZER-[employer]) 04/26/2020 Imm Admin: COVID-19 original vaccine, age 12+ yr, monovalent (2nd Watch-[employer] - PURPLE TOP) Only the first 3 history entries have been loaded, but more histor (more content not included)... Normal [facility] CNOVon 11-27-2023 CNOV Office Visit ([facility] ) -- RAUL CHONG ([id number]) 1980 F Date Time Provider Department 11/27/23 9:00 AM JAE STERLING [facility] During your visit today, we recorded the [...] discussed with the Patient or Patient's Authorized Insurance Claims Representative. As applicable, any other physician, advance practice provider, medical student, or other health professional student that will be observing or involved in the sensitive examination for educational or training purposes was discussed with the Patient or Authorized Insurance Claims Representative. The Patient or Authorized Insurance Claims Representative has agreed to proceed with the sensitive examination. (Sensitive examination includes inspection and/or palpation of the breasts (more content not included)... Normal [facility] 11-17-2023 FATEMEH Telephone (RHODA) -- RAUL CHONG ([id number]) 1980 F Date Time Provider Department 11/17/23 BONNY HENRY During your visit today, we recorded the following information about you: Rachna Lynn 11/17/2023 3:02 PM Signed Patient calling with Authorization Code for surgery: [employer] [id number] Jessica Desir 11/23/2023 12:39 PM Signed Patient calling back as she has not heard anything from the Plastic Surgery Department since she sent the insurance authorization code. She needs to get her surgery scheduled in either November or December, if possible due to insurance. She can be reached at [phone]. Allergies As of Date: 11/17/2023 Noted Allergy [...] Encounter Status:Closed by RACHNA LYNN on 06/13/24 [facility] Surya 10-30-2023 CNOV Office Visit ([facility] ) -- RAUL CHONG Harvinder ([id number]) 1980 F Date Time Provider Department 10/30/23 [...] Reason for visit: Chest pain/headaches. Which facility: [facility] Date of visit: 08/19-08/21/23 Diagnosis: Acute [...] PAST SURGICA (more content not included)... 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 Normal [facility] EPIL EEG ROUTINEon [facility] EPIL EEG Routine [[id number]] Patient name: RAUL CHONG Start of test: 10/06/2023 12:30 End of test: 10/06/2023 12:54 Duration: 0 hr 24 min Requested By: MAIRA ESCAMILLA Staff Physician: Gregg Gallardo EEG Fellow or [place]: Kelvin Mendez History: 43-year-old left-handed female. History [...] Gregg Gallardo Date of signin10/07/2023 13:05 NEUROLOGY [facility] CNOVon 10-06-2023 CNOV Office Visit (EEGAK) -- RAUL COHNG ([id number]) 1980 F Date Time Provider Department 10/06/23 11:45 AM EEG NEUR [place] EEGAK During your visit today, we recorded the following information about you: Referring Provider: MAIRA ESCAMILLA [[id number]] Allergies As of Date: 10/06/2023 Noted Allergy [...] loss [H54.7] Near syncope [R55] Confusion [R41.0] Order(s):[facility] EEG ROUTINE [[id number]] Order #: [id number]. #:[id number]: 1 Prescriptions as of 11/16/2023 - pregabalin [...] Status:Closed by SHAYLEE VALADEZ on 11/16/23 Normal [facility] CNOV Office Visit (NEMOWS ) -- RAUL CHONG ([id number]) 1980 F Date Time Provider Department 10/06/23 9:00 AM PREETHI SKINNER During your visit today, we recorded the following information about you: Pulse Respiration Blood pressure Weight 61/minute 16/minute 107/67 88.5 kg Preethi Skinner PA-C 10/06/2023 10:03 AM Signed [facility] Date: October 06, 2023 Patient Name: Raul Chong Referring physician: Maira Escamilla [address] [facility] [address] Consult requested for headaches by Dr. Escamilla. Recommendations will be communicated via shared medical record or US mail. Primary physician: Maira Escamilla [address] [place] [address] Reason for Evaluation: Headaches Subjective HPI: Patient [...] reported. HEENT: (more content not included)... Normal [facility]05[facility]2023 [facility] -- RAUL CHONG ([id number]) 1980 F Date Time Provider Department 10/05/23 MAIRA ESCAMILLA [facility] During your visit today, we recorded [...] CARDIAC OUTPATIENT EXTENDED RHYTHM RECORDING (WITHOUT TELEMETRY) [[id number]] Order #: [id number]: 1 Prescriptions as of 10/05/2023 - pregabalin [...] Encounter Status:Closed by CONCHA MORENO on 10/05/23 [facility] CNOVon 09-28-2023 CNOV Office Visit (BMINO) -- RAUL CHONG ([id number]) 1980 F Date Time Provider Department 09/28/23 [...] lbs (05/21/21) Total weight loss: 199 lbs [facility] weight: 76.8 kg (169 lb 5 oz) [...] citrate but does get a brand from [facility]). Multivitamin AND Minerals: 2 chewable vitamins [...] to excess calories (HCC) SVT (supraventricular tachycardia) ([facility]) Palpitations Chest pain SOB (shortness [...] Internal derangement (more content not included)... Normal [facility] XR RIBS 2 VIEWS LEFTon 08-30 XR [...] 08/31/2023 6:37:06 PM Ordering Provider: TIGIST ALFARO [facility] ([place]) XR Chest PA and Lateralon IMPRESSION: No acute radiographic abnormality. Digital Sales Director: CESAR Transcribe Date/Time: Aug 25 2023 4:47P Dictated by : MIKKI ROUSE MD This examination was interpreted and the report reviewed and electronically signed by: MIKKI ROUSE MD on Aug 25 2023 4:47PM [facility] DIVISION OF RADIOLOGY * * *Final Report* [...] in the spine. DIVISION OF RADIOLOGY [facility] * * *Final Report* [...] spine. IMPRESSION IMPRESSION: No acute radiographic abnormality. Digital Sales Director: PSCB Transcribe Date/Time: Aug 25 2023 4:47P Dictated by : MIKKI ROUSE MD This examination was interpreted and the report reviewed and electronically signed by: MIKKI ROUSE MD on Aug 25 2023 4:47PM EST [facility] Radiology Study observation (narrative) [facility] XR Chest PA and LateralOrder ed By: Ccf Provider on 08-25-2023 [facility] Laboratory - Microbiology an d Antimicrobial susceptibilityOrdered By: Deepak Moreno on 02-13-2023 SARS-CoV-2 (COVID-19) RNA KRISTINA+probe Ql (Unsp spec) [facility] ARUN SCREENINGon 03-07-2022 [facility] STREP A MOLECULAR (POC)on Procedural Control Valid [facility] Strep A (POCT) Positive Abnormal Negative [facility] Absolute lymphocyte counton 06-24-2021 Lymphocytes Auto (Unsp spec) [#/Vol] 1.30 10*3/uL 0.83-4.51 [facility] Work Phone: Basophil percentageon 2021 Basophil percentage 0-5 SEEN /hpf [facility] Work Phone: Basophils/100 WBC (Bld) 0.7 % 0-1 [facility] Work Phone: Chloride [Moles/Vol] 107 mmol/L 98-107 [facility] Work Phone: Eosinophils/100 WBC (Bld) 4.1 % 0-5 [facility] Work Phone: Glucose [Mass/Vol] 103 mg/dL 74-106 [facility] Work Phone: Comment on above: Fasting Glucose resu lt from 100 to 125 mg/dL suggests IMPAIRED HOMEOSTASIS per A.D.A. criteria. Neutrophils (Bld) [#/Vol] 3.8 10*3/uL 2.0-7.7 [facility] Work Phone: Neutrophils/100 WBC (Bld) 64.1 % 47-70 [facility] Work Phone: Potassium [Moles/Vol] 3.5 mmol/L 3.5-5.1 [facility] Work Phone: Sodium [Moles/Vol] 139 mmol/L 136-145 [facility] Work Phone: WBC (Bld) [#/Vol] 5.9 10*3/uL 4.4-11.0 [facility] Work Phone: Bilirubin Test strip Ql (U)o n 06-24-2021 Bilirubin Ql (U) Negative Negative [facility] Work Phone: Blood erythrocytes count (nu mber/volume)on 06-24-2021 RBC (Bld) [#/Vol] 4.75 10*6/uL 4.2-5.4 [facility] Work Phone: Blood hemoglobin measurement (mass/volume)on 06-24-2021 Hemoglobin (Bld) [Mass/Vol] 11.8 g/dL 12.0-15.0 [facility] Work Phone: Blood lymphocytes/100 leukoc yteson 06-24-2021 Lymphocytes/100 WBC (Bld) 22.1 % 19-41 [facility] Work Phone: [phone] Blood monocytes/100 leukocyt eson 06-24-2021 Monocytes/100 WBC (Bld) 8.7 % 0-10 [facility] Work Phone: Blood platelet mean volumeon 06-24-2021 Platelet mean volume (Bld) [Entitic vol] 9.9 fL 6.2-12.0 [facility] Work Phone: Determination of erythrocyte mean corpuscular volume (MCV)on 06-24-2021 MCV (RBC) [Entitic vol] 78.1 fL 81-99 [facility] Work Phone: [phone] Hematocrit Auto (Bld) [Volum e fraction]on 06-24-2021 Hematocrit (Bld) [Volume fraction] 37.1 % 37-47 [facility] Work Phone: [phone] Ketones Test strip Ql (U)on 06-24-2021 Ketones Ql (U) 50 mg/dl Negative [facility] Work Phone: Laboratory - Chemistry and C hemistry - challengeon 06-24-2021 CO2 [Moles/Vol] 24.0 mmol/L 21.0-32.0 [facility] Work Phone: Urea nitrogen/Creatinine [Mass ratio] 21.4 mg/mg 10-20 [facility] Work Phone: [phone] Laboratory - Hematology and Cell countson 06-24-2021 Erythrocyte distribution width (RBC) [Entitic vol] 42.9 fL 35.1-43.9 [facility] Work Phone: Erythrocyte distribution width (RBC) [Ratio] 15.1 % 11.6-14.6 [facility] Work Phone: [phone] Immature granulocytes/100 WBC (Bld) 0.300 % 0.0-0.9 [facility] Work Phone: Comment on above: IG% - Immature Granu locytes (promyelocytes, myelocytes and metamyelocytes) > 1% indicates that a LEFT SHIFT is Present. MCH (RBC) [Entitic mass] 24.8 pg 27.0-32.0 [facility] Work Phone: Nucleated RBC/100 WBC (Bld) [Ratio] 0 % 0-5 [facility] Work Phone: [phone] MCHC Auto (RBC) [Mass/Vol]on 06-24-2021 MCHC (RBC) [Mass/Vol] 31.8 g/dL 32-36 [facility] Work Phone: [phone] Mucus LM Ql (Urine sed)on Mucus Ql (Urine sed) 0 SEEN /hpf [facility] Work Phone: [phone] Nitrite Test strip Ql (U)on 06-24-2021 Nitrite Ql (U) Negative Negative [facility] Work Phone: [phone] No Panel Informationon 06-24 Estimated Creatinine Clearance Calc 92.11 ml/min [facility] Work Phone: [phone] Estimated GFR (MDRD) Amer 96 mL/min >60 [facility] Work Phone: [phone] Comment on above: GFR Calc Estimated GFR (MDRD) Non-Af Amer 79 mL/min >60 [facility] Work Phone: [phone] Comment on above: Non- GFR Calc Platelets bldon 06-24-2021 Platelets (Bld) [#/Vol] 247 10*3/uL 150-450 [facility] Work Phone: [phone] Protein Test strip Ql (U)on 06-24-2021 Protein Ql (U) 15 mg/dl Negative [facility] Work Phone: Serum or plasma calcium shayna urement (mass/volume)on 06-24-2021 Calcium [Mass/Vol] 8.7 mg/dL 8.5-10.1 [facility] Work Phone: Serum or plasma creatinine m easurement (mass/volume)on 06-24-2021 Creatinine [Mass/Vol] 0.84 mg/dL 0.55-1.02 [facility] Work Phone: Comment on above: The validity of the calculated GFR & GFRAA in patients over 70 years has not been determined. Clinical correlation is essential. Serum or plasma urea nitroge n measurement (mass/volume)on 06-24-2021 Urea nitrogen [Mass/Vol] 18 mg/dL 7-18 [facility] Work Phone: Squamous epithelial cells de tection in urine sediment by light microscopyon 06-24-2021 Epithelial cells.squamous LM Ql (Urine sed) 5-10 SEEN /hpf [facility] Work Phone: Thin prep Papanicolaou smear with manual screeningon 06-24-2021 Thin prep Papanicolaou smear with manual screening 8 5-15 [facility] Work Phone: Urine blood detectionon 06-09 RBC Ql (U) 10 /ul Negative [facility] Work Phone: RBC Ql (U) 0-5 SEEN /hpf [facility] Work Phone: Urine clarityon 06-24-2021 Clarity (U) Clear Clear [facility] Work Phone: Urine color determinationon 06-24-2021 Color (U) Yellow Yellow [facility] Work Phone: Urine glucose detectionon Glucose Ql (U) Normal mg/dl Normal [facility] Work Phone: Urine leukocyte esterase det ection by dipstickon 06-24-2021 Leukocyte esterase Test strip Ql (U) 100 /ul Negative [facility] Work Phone: Urine pHon 06-24-2021 pH (U) 6.0 [pH] [facility] Work Phone: Urine sediment bacteria coun t by microscopy (number/high power field)on 06-24-2021 Bacteria LM.HPF (Urine sed) [#/Area] RARE /hpf None Seen [facility] Work Phone: Urine specific gravity measu rementon 06-24-2021 Specific gravity (U) [Rel density] 1.025 [facility] Work Phone: Urobilinogen Auto test strip Ql (U)on 06-24-2021 Urobilinogen Ql (U) Normal mg/dl Normal [facility] Work Phone: XR Chest PA and Lateralon IMPRESSION: No acute radiographic abnormality. Digital Sales Director: CESAR Transcribe Date/Time: May 01 2021 5:59P Dictated by : MARITZA GUERRERO MD This examination was interpreted and the report reviewed and electronically signed by: MARITZA GUERRERO MD on May 01 2021 6:00PM [facility] DIVISION OF RADIOLOGY * * *Final Report* [...] spine. IMPRESSION IMPRESSION: No acute radiographic abnormality. Digital Sales Director: CESAR Transcribe Date/Time: May 01 2021 5:59P Dictated by : MARITZA GUERRERO MD This examination was interpreted and the report reviewed and electronically signed by: MARITZA GUERRERO MD on May 01 2021 6:00PM EST [facility] Radiology Study observation (narrative) [facility] XR Chest PA and LateralOrder ed By: Ccf Provider on 05-01-2021 [facility] XR Knee - bilateral 4 Viewso n 02-22-2021 IMPRESSION: 1. Mild osteoarthrosis of the bilateral knees with moderate narrowing of the left patellofemoral compartment joint space. Digital Sales Director: [email or web address] Transcribe Date/Time: Feb 22 2021 4:05P Dictated by : HAL RIVERA MD This examination was interpreted and the report reviewed and electronically signed by: HAL RIVERA MD on Feb 22 2021 4:07PM [facility] DIVISION OF RADIOLOGY * * *Final Report* * * DATE OF EXAM: Feb 22 2021 3:56PM STX 5618 - XR KNEE 4V AP/PA/LAT/[facility] NOE / PROCEDURE REASON: Pain * * [...] old [place]-Schlatter disease. DIVISION OF RADIOLOGY Provider, [facility] - 02/22/2021 * * *Final Report* [...] and left tibial tubercles consistent with old [place]-Schlatter disease. IMPRESSION IMPRESSION: 1. Mild osteoarthrosis of the bilateral knees with moderate narrowing of the left patellofemoral compartment joint space. Digital Sales Director: PSCB Transcribe Date/Time: Feb 22 2021 4:05P Dictated by : HAL RIVERA MD This examination was interpreted and the report reviewed and electronically signed by: HAL RIVERA MD on Feb 22 2021 4:07PM EST [facility] Radiology Study observation (narrative) [facility] XR Knee - bilateral 4 ViewsO rdered By: Ccf Provider on 02-22-2021 [facility] Clinical Summary: HMSPatient IDon 09-27-2019 OOP [facility] Work Phone: Office Visit: New - visi t with practice, Rm: 6on 09-27-2019 NEGATED: Highlighted rowxray history of the cervical spine on 09/21/2019 at [facility] Work Phone: Clinical Lists Update: Prelo ad Extendedon 09-23-2019 Tobacco smoking status NHIS Tobacco smoking status NHIS [facility] Work Phone: Clinical Summary: Scanned Hi story Summaryon 09-23-2019 comments about allergies TopamaxGabapentinPrendason e [facility] Work Phone: data entered by patient, alcohol (ethanol or ETOH) use No [facility] Work Phone: data entered by patient, drug (of abuse) use No [facility] Work Phone: data entered by patient, Employer Name employed [facility] Work Phone: data entered by patient, exercise history No [facility] Work Phone: data entered by patient, father's medical history Arthritis [facility] Work Phone: Data entered by patient, history of past surgeries sectionFoot surgeryGallbladder surgeryLumbar spine decompressionTonsillectomy [facility] Work Phone: Data entered by patient, medication list [id number] [id number] packet-daily [facility] Work Phone: data entered by patient, mother's medical history Arthritis [facility] Work Phone: data entered by patient, past medical history ArthritisAsthmaObesity [facility] Work Phone: data entered by patient, social history, current smoker former smoker [facility] Work Phone: data entered by patient, social history, former smoker 2013 [facility] Work Phone: data entered by patient, social history, marital status single [facility] Work Phone: data entered by patient, social history, occupation [facility] [employer] [facility] Work Phone: father of patient is alive or Alive [facility] Work Phone: Housing Type: apartment, house, skilled nursing, trailer, none house [facility] Work Phone: medical history of patient's brother(s) Diabetes - insulin dependent [facility] Work Phone: mother of patient is alive or Alive [facility] Work Phone: Vital Signs Date Time Vital Sign Value Performing Clinician Facility 09-09-2024 10:27-0400 Body mass index (BMI) [Ratio] 27.98 kg/m2 Beulah Campa MD Work Phone: [facility] 09-09-2024 10:270400 Body weight 83.46 kg Beulah Campa MD Work Phone: [facility] 09-09-2024 10:27-0400 Diastolic blood pressure 58 mm[Hg] Beulah Campa MD Work Phone: [facility] 09-09-2024 10:27-0400 Systolic blood pressure 106 mm[Hg] Beulah Campa MD Work Phone: [facility] 09-01-2024 13:04-0400 Body temperature 97.2 [degF] Dr. Maira Escamilla MD Work Phone: [facility] 09-01-2024 13:04-0400 Diastolic blood pressure 72 mm[Hg] Dr. Maira Escamilla MD Work Phone: 8(816)[phone] [place] [address] 09-01-2024 13:04-0400 Heart rate 53 /min Dr. Maira Escamilla MD Work Phone: [phone])175-494606 [place] [address] 09-01-2024 13:04-0400 Respiratory rate 16 /min Dr. Maira Escamilla MD Work Phone: 7(742)340-613606 [place] [address] 09-01-2024 13:04-0400 SaO2% (BldA) [Mass fraction] 99 % Dr. Maira Escamilla MD Work Phone: 7(035)900-880706 [place] [address] 09-01-2024 13:04-0400 Systolic blood pressure 112 mm[Hg] Dr. Maira Escamilla MD Work Phone: 7(678)615-752006 [place] [address] 09-01-2024 11:30-0400 Inhaled oxygen flow rate 4 L/min Dr. Maira Escamilla MD Work Phone: 7(328)763-023206 [place] [address] 09-01-2024 06:09-0400 Body height 172.[address] Maira Escamilla MD Work Phone: 3(433)266-709206 [place] [address] 09-01-2024 06:09-0400 Body mass index (BMI) [Ratio] 30.1 kg/m2 Dr. Maira Escamilla MD Work Phone: 7(258)019-810206 [place] [address] 09-01-2024 06:09-0400 Body weight 89.[address] Maira Escamilla MD Work Phone: 2([phone])269-621906 [place] [address] 08-31-2024 09:14-0400 Body mass index (BMI) [Ratio] 28.63 kg/m2 Roseann Armstrong MD Work Phone: 4(141)992-894883 [place] [address] 08-31-2024 09:14-0400 Body temperature 97.5 [degF] Roseann Armstrong MD Work Phone: 1(036)215-617683 [place] [address] 08-31-2024 09:14-0400 Body weight 85.4 kg Roseann Armstrong MD Work Phone: 5(176)411-632483 [place] [address] 08-31-2024 09:14-0400 Diastolic blood pressure 62 mm[Hg] Roseann Armstrong MD Work Phone: [facility] 08-31-2024 09:14-0400 Heart rate 70 /min Roseann Armstrong MD Work Phone: [facility] 08-31-2024 09:14-0400 Respiratory rate 16 /min Roseann Armstrong MD Work Phone: [facility] 08-31-2024 09:14-0400 SaO2% (BldA) [Mass fraction] 98 % Roseann Armstrong MD Work Phone: [facility] 08-31-2024 09:14-0400 Systolic blood pressure 108 mm[Hg] Roseann Armstrong MD Work Phone: [facility] 08-24-2024 10:30-0400 Body height 172.7 cm Beulah Campa MD Work Phone: [facility] 08-24-2024 10:30-0400 Body mass index (BMI) [Ratio] 27.98 kg/m2 Beulah Campa MD Work Phone: [facility] 08-24-2024 10:30-0400 Body weight 83.46 kg Beulah Campa MD Work Phone: [facility] 08-24-2024 10:30-0400 Diastolic blood pressure 58 mm[Hg] Beulah Campa MD Work Phone: [facility] 08-24-2024 10:30-0400 Heart rate 70 /min Beulah Campa MD Work Phone: [facility] 08-24-2024 10:30-0400 SaO2% (BldA) [Mass fraction] 97 % Beulah Campa MD Work Phone: [facility] 08-24-2024 10:30-0400 Systolic blood pressure 102 mm[Hg] Beulah Campa MD Work Phone: [facility] 08-16-2024 11:42-0400 Body temperature 98.6 [degF] Dr. Maira Escamilla MD Work Phone: 0(807)[phone] [place] [address] 08-16-2024 11:42-0400 Diastolic blood pressure 70 mm[Hg] Dr. Maira Escamilla MD Work Phone: 0(844)[phone] [place] [address] 08-16-2024 11:42-0400 Heart rate 81 /min Dr. Maira Escamilla MD Work Phone: 6(173)009-453906 [place] [address] 08-16-2024 11:42-0400 Respiratory rate 18 /min Dr. Maira Escamilla MD Work Phone: 1(759)839-912506 [place] [address] 08-16-2024 11:42-0400 SaO2% (BldA) [Mass fraction] 98 % Dr. Maira Escamilla MD Work Phone: 0(307)237-178306 [place] [address] 08-16-2024 11:42-0400 Systolic blood pressure 128 mm[Hg] Dr. Maira Escamilla MD Work Phone: 1(688)523-414606 [place] [address] 08-16-2024 09:00-0400 Body mass index (BMI) [Ratio] 28.5 kg/m2 Dr. Maira Escamilla MD Work Phone: 8(901)726-293206 [place] [address] 08-16-2024 09:00-0400 Body weight 85.[address] Maira Escamilla MD Work Phone: 2(947)471-734206 [place] [address] 08-16-2024 08:47-0400 Body height 172.[address] Maira Escamilla MD Work Phone: 5(806)413-239306 [place] [address] 08-04-2024 09:58-0400 Diastolic blood pressure 78 mm[Hg] Makeda Lynn [employer] Work Phone: 6(771)229-687383 [place] [address] 08-04-2024 09:58-0400 Systolic blood pressure 126 mm[Hg] Makeda [place] [employer]OCATIONAL ADVISER Work Phone: [facility] 08-04-2024 09:27-0400 Body mass index (BMI) [Ratio] 28.4 kg/m2 Makeda Lynn [employer]ER Work Phone: 5(234)461-194583 [place] [address] 08-04-2024 09:27-0400 Body weight 84.73 kg Makeda [place] [employer]ATIONAL ADVISER Work Phone: [facility] 08-01-2024 09:33-0400 Body mass index (BMI) [Ratio] 28.28 kg/m2 Beulah Campa MD Work Phone: [facility] 08-01-2024 09:33-0400 Body weight 84.37 kg Beulah Campa MD Work Phone: [facility] 08-01-2024 09:33-0400 Diastolic blood pressure 66 mm[Hg] Beulah Campa MD Work Phone: [facility] 08-01-2024 09:33-0400 Systolic blood pressure 110 mm[Hg] Beulah Campa MD Work Phone: [facility] 07-22-2024 10:07-0400 Body mass index (BMI) [Ratio] 27.06 kg/m2 Makeda [place] [employer] Work Phone: [facility] 07-22-2024 10:07-0400 Body weight 80.74 kg Makeda Lynn [employer] MA[employer]ER Work Phone: [facility] 07-22-2024 10:07-0400 Diastolic blood pressure 64 mm[Hg] Makeda [place] [employer] Work Phone: [facility] 07-22-2024 10:07-0400 Systolic blood pressure 102 mm[Hg] Makeda [place] [employer] MAKER [employer]ATIONAL ADVISER Work Phone: [facility] 07-14-2024 13:19-0400 Body height 172.7 cm Bonny Elaine [employer] MA[employer] Work Phone: [facility] 07-14-2024 13:19-0400 Body mass index (BMI) [Ratio] 27.15 kg/m2 Bonny Elaine [employer] MA[employer] Work Phone: [facility] 07-14-2024 13:19-0400 Body weight 81 kg Bonny Elaine DIE MAKER [employer]ER Work Phone: [facility] 07-12-2024 09:17-0400 Body mass index (BMI) [Ratio] 27.64 kg/m2 Makeda Lynn [employer] MA[employer] Work Phone: [facility] 07-12-2024 09:17-0400 Body weight 82.46 kg Makeda [place] D[employer] MAKER [employer]ATIONAL ADVISER Work Phone: [facility] 07-12-2024 09:17-0400 Diastolic blood pressure 64 mm[Hg] Makeda [place] [employer] MAKER [employer]ATIONAL ADVISER Work Phone: [facility] 07-12-2024 09:17-0400 Systolic blood pressure 118 mm[Hg] Makeda [place] DIE MAKER TRIM.VOCATIONAL ADVISER Work Phone: [facility] 06-02-2024 15:40-0400 Body temperature 98.5 [degF] Dr. Maira Escamilla MD Work Phone: [phone] [place] [address] 06-02-2024 15:40-0400 Diastolic blood pressure 69 mm[Hg] Dr. Maira Escamilla MD Work Phone: 7(495)[phone] [place] [address] 06-02-2024 15:40-0400 Heart rate 88 /min Dr. Maira Escamilla MD Work Phone: 6(528)[phone] [place] [address] 06-02-2024 15:40-0400 Respiratory rate 15 /min Dr. Maira Escamilla MD Work Phone: [facility] 06-02-2024 15:40-0400 SaO2% (BldA) [Mass fraction] 97 % Dr. Maira Escamilla MD Work Phone: [facility] 06-02-2024 15:40-0400 Systolic blood pressure 105 mm[Hg] Dr. Maira Escamilla MD Work Phone: 6(649)[phone] [place] [address] 06-02-2024 14:39-0400 Body height 172.[address] Maira Escamilla MD Work Phone: [facility] 06-02-2024 14:39-0400 Body mass index (BMI) [Ratio] 28 kg/m2 Dr. Maira Escamilla MD Work Phone: 0(027)[phone] [place] [address] 06-02-2024 14:39-0400 Body weight 83.[address] Maira Escamilla MD Work Phone: [facility] 03-26-2024 10:32-0500 Body mass index (BMI) [Ratio] 28.02 kg/m2 Starr Ram DIE MAKER TRIM.VOCATIONAL ADVISER Work Phone: [facility] 03-26-2024 10:32-0500 Body temperature 97.39 [degF] Starr Leanna DIE MAKER TRIM.VOCATIONAL ADVISER Work Phone: [facility] 03-26-2024 10:32-0500 Body weight 83.6 kg Starr Haquek DIE MAKER TRIM.VOCATIONAL ADVISER Work Phone: [facility] 03-26-2024 10:32-0500 Diastolic blood pressure 64 mm[Hg] Starr Haquek DIE MAKER TRIM.VOCATIONAL ADVISER Work Phone: [facility] 03-26-2024 10:32-0500 Heart rate 84 /min Starr Leanna DIE MAKER TRIM.VOCATIONAL ADVISER Work Phone: [facility] 03-26-2024 10:32-0500 Respiratory rate 16 /min Starr Haquek DIE MAKER TRIM.VOCATIONAL ADVISER Work Phone: [facility] 03-26-2024 10:32-0500 SaO2% (BldA) [Mass fraction] 97 % Starr Ram DIE MAKER TRIM.VOCATIONAL ADVISER Work Phone: [facility] 03-26-2024 10:32-0500 Systolic blood pressure 112 mm[Hg] Starr Haquek DIE MAKER TRIM.VOCATIONAL ADVISER Work Phone: [facility] 03-24-2024 11:23-0500 Body temperature 98.29 [degF] Bonny Elaine DIE MAKER TRIM.VOCATIONAL ADVISER Work Phone: [facility] 03-08-2024 10:34-0500 Body mass index (BMI) [Ratio] 28 kg/m2 Dr. Maira Escamilla MD Work Phone: [facility] 03-08-2024 10:34-0500 Body weight 83.[address] Maira Escamilla MD Work Phone: [facility] 02-28-2024 14:38-0500 Body mass index (BMI) [Ratio] 27.49 kg/m2 Krislyn Aberegg PA Work Phone: [facility] 02-28-2024 14:38-0500 Body temperature 100.4 [degF] Krislyn Aberegg PA Work Phone: [facility] 02-28-2024 14:38-0500 Body weight 82 kg Krislyn Aberegg PA Work Phone: [facility] 02-28-2024 14:38-0500 Diastolic blood pressure 69 mm[Hg] Krislyn Aberegg PA Work Phone: [facility] 02-28-2024 14:38-0500 Heart rate 84 /min Krislyn Aberegg PA Work Phone: [facility] 02-28-2024 14:38-0500 Respiratory rate 22 /min Krislyn Aberegg PA Work Phone: [facility] 02-28-2024 14:38-0500 SaO2% (BldA) [Mass fraction] 98 % Krislyn Aberegg PA Work Phone: [facility] 02-28-2024 14:38-0500 Systolic blood pressure 103 mm[Hg] Krislyn Aberegg PA Work Phone: [facility] 02-22-2024 12:35-0500 Body mass index (BMI) [Ratio] 27.83 kg/m2 Anna Suppan DIE MAKER TRIM.VOCATIONAL ADVISER Work Phone: [facility] 02-22-2024 12:35-0500 Body weight 83.01 kg Anna Suppan DIE MAKER TRIM.VOCATIONAL ADVISER Work Phone: [facility] 02-22-2024 12:35-0500 Diastolic blood pressure 72 mm[Hg] Anna Suppan DIE MAKER TRIM.VOCATIONAL ADVISER Work Phone: [facility] 02-22-2024 12:35-0500 Heart rate 69 /min Anna Suppan DIE MAKER TRIM.VOCATIONAL ADVISER Work Phone: [facility] 02-22-2024 12:35-0500 Respiratory rate 16 /min Anna Sanjufarshad DIE MAKER TRIM.VOCATIONAL ADVISER Work Phone: [facility] 02-22-2024 12:35-0500 SaO2% (BldA) [Mass fraction] 98 % Anna Suppfarshad DIE MAKER TRIM.VOCATIONAL ADVISER Work Phone: [facility] 02-22-2024 12:35-0500 Systolic blood pressure 128 mm[Hg] Anna Nino DIE MAKER TRIM.VOCATIONAL ADVISER Work Phone: [facility] 02-15-2024 15:51-0500 Body height 172.7 cm Pacc 1 Work Phone: [facility] 02-15-2024 15:51-0500 Body mass index (BMI) [Ratio] 28.13 kg/m2 Pacc 1 Work Phone: [facility] 02-15-2024 15:51-0500 Body temperature 98.29 [degF] Pacc 1 Work Phone: [facility] 02-15-2024 15:51-0500 Body weight 83.92 kg Pacc 1 Work Phone: [facility] 02-15-2024 15:51-0500 Diastolic blood pressure 78 mm[Hg] Pacc 1 Work Phone: [facility] 02-15-2024 15:51-0500 Heart rate 70 /min Pacc 1 Work Phone: [facility] 02-15-2024 15:51-0500 Respiratory rate 14 /min Pacc 1 Work Phone: [facility] 02-15-2024 15:51-0500 SaO2% (BldA) [Mass fraction] 92 % Pacc 1 Work Phone: [facility] 02-15-2024 15:51-0500 Systolic blood pressure 120 mm[Hg] Pacc 1 Work Phone: [facility] 11-27-2023 08:43-0400 Body height 175.3 cm Jae Sterling MD Work Phone: [facility] 11-27-2023 08:43-0400 Body mass index (BMI) [Ratio] 28.38 kg/m2 Jae Sterling MD Work Phone: [facility] 11-27-2023 08:43-0400 Body temperature 97.81 [degF] Jae Sterling MD Work Phone: [facility] 11-27-2023 08:43-0400 Body weight 87.2 kg Jae Sterling MD Work Phone: [facility] 11-27-2023 08:43-0400 Diastolic blood pressure 74 mm[Hg] Jae Streling MD Work Phone: [facility] 11-27-2023 08:43-0400 Heart rate 58 /min Jae Sterling MD Work Phone: [facility] 11-27-2023 08:43-0400 SaO2% (BldA) [Mass fraction] 100 % Jae Sterling MD Work Phone: [facility] 11-27-2023 08:43-0400 Systolic blood pressure 115 mm[Hg] Jae Sterling MD Work Phone: [facility] 10-30-2023 16:46-0400 Body mass index (BMI) [Ratio] 28.65 kg/m2 Maira Escamilla MD Work Phone: [facility] 10-30-2023 16:46-0400 Body weight 88 kg Maira Escamilla MD Work Phone: [facility] 10-30-2023 16:46-0400 Diastolic blood pressure 58 mm[Hg] Maira Escamilla MD Work Phone: [facility] 10-30-2023 16:46-0400 Heart rate 77 /min Maira Escamilla MD Work Phone: [facility] 10-30-2023 16:46-0400 SaO2% (BldA) [Mass fraction] 98 % Maira Escamilla MD Work Phone: [facility] 10-30-2023 16:46-0400 Systolic blood pressure 98 mm[Hg] Maira Escamilla MD Work Phone: [facility] 10-08-2023 10:19-0400 Body height 175.3 cm Bonny Henry APRN.VOCATIONAL ADVISER Work Phone: [facility] 10-08-2023 10:19-0400 Body mass index (BMI) [Ratio] 28.06 kg/m2 Bonny Henry DIE MAKER TRIM.VOCATIONAL ADVISER Work Phone: [facility] 10-08-2023 10:19-0400 Body weight 86.18 kg Bonny Henry APRN.VOCATIONAL ADVISER Work Phone: [facility] 10-06-2023 09:17-0400 Body mass index (BMI) [Ratio] 28.81 kg/m2 Preehti Queener PA-C Work Phone: [facility] 10-06-2023 09:17-0400 Body weight 88.54 kg Preethi Queener PA-C Work Phone: [facility] 10-06-2023 09:17-0400 Diastolic blood pressure 67 mm[Hg] Preethi Queener PA-C Work Phone: [facility] 10-06-2023 09:17-0400 Heart rate 61 /min Preethi Queener PA-C Work Phone: [facility] 10-06-2023 09:17-0400 Respiratory rate 16 /min Preethi Queener PA-C Work Phone: [facility] 10-06-2023 09:17-0400 SaO2% (BldA) [Mass fraction] 100 % Preethi Queener PA-C Work Phone: [facility] 10-06-2023 09:17-0400 Systolic blood pressure 107 mm[Hg] Preethi Queener PA-C Work Phone: [facility] 09-28-2023 15:04-0400 Body height 175.3 cm Alison Jules DO Work Phone: [facility] 09-28-2023 15:04-0400 Body mass index (BMI) [Ratio] 29.11 kg/m2 Alison Cetin DO Work Phone: [facility] 09-28-2023 15:04-0400 Body weight 89.45 kg Alison Cetin DO Work Phone: [facility] 09-28-2023 15:04-0400 Diastolic blood pressure 65 mm[Hg] Alison Cetin DO Work Phone: [facility] 09-28-2023 15:04-0400 Heart rate 72 /min Alison Cetin DO Work Phone: [facility] 09-28-2023 15:04-0400 Systolic blood pressure 103 mm[Hg] Alison Cetin DO Work Phone: [facility] 08-31-2023 17:51-0400 Body temperature 96.98 [degF] DR SHARON NARANJO MD [facility] 08-31-2023 17:51-0400 Body weight 89.[address] SHARON NARANJO MD [facility] 08-31-2023 17:51-0400 Diastolic Blood Pressure Non-Invasive 72 mm[Hg] DR SHARON NARANJO MD [facility] 08-31-2023 17:51-0400 Heart rate 66 /min DR SHARON NARANJO MD [facility] 08-31-2023 17:51-0400 Respiratory rate 18 /min DR SHARON NARANJO MD [facility] 08-31-2023 17:51-0400 Systolic Blood Pressure Non-Invasive 110 mm[Hg] DR SHARON NARANJO MD [facility] 08-25-2023 14:03-0400 Body height 175.3 cm Maira Escamilla MD Work Phone: [facility] 08-25-2023 14:03-0400 Body mass index (BMI) [Ratio] 28.86 kg/m2 Maira Escamilla MD Work Phone: [facility] 08-25-2023 14:03-0400 Body weight 88.63 kg Maira Escamilla MD Work Phone: [facility] 08-25-2023 14:03-0400 Diastolic blood pressure 70 mm[Hg] Maira Escamilla MD Work Phone: [facility] 08-25-2023 14:03-0400 Heart rate 74 /min Maira Escamilla MD Work Phone: [facility] 08-25-2023 14:03-0400 Systolic blood pressure 106 mm[Hg] Maira Escamilla MD Work Phone: [facility] 05-04-2023 08:39-0400 Body height 175.3 cm Alison Cetin DO Work Phone: [facility] 05-04-2023 08:39-0400 Body weight 103.9 kg Alison Cetin DO Work Phone: [facility] 05-04-2023 08:39-0400 Diastolic blood pressure 69 mm[Hg] Alison Cetin DO Work Phone: [facility] 05-04-2023 08:39-0400 Heart rate 62 /min Alison Cetin DO Work Phone: [facility] 05-04-2023 08:39-0400 SaO2% (BldA) [Mass fraction] 99 % Alison Cetin DO Work Phone: [facility] 05-04-2023 08:39-0400 Systolic blood pressure 120 mm[Hg] Alison Cetin DO Work Phone: [facility] 03-05-2023 15:14-0500 Body height 175.26 cm [facility] 03-05-2023 15:14-0500 Body mass index (BMI) [Ratio] 37.5 kg/m2 [facility] 03-05-2023 15:14-0500 Body temperature 97.4 [degF] [facility] 03-05-2023 15:14-0500 Body weight 115.48 kg [facility] 03-05-2023 15:14-0500 Diastolic blood pressure 73 mm[Hg] [facility] 03-05-2023 15:14-0500 Heart rate 75 /min [facility] 03-05-2023 15:14-0500 Respiratory rate 18 /min [facility] 03-05-2023 15:14-0500 SaO2% (BldA) [Mass fraction] 97 % [facility] 03-05-2023 15:14-0500 Systolic blood pressure 101 mm[Hg] [facility] 02-13-2023 22:00-0500 Respiratory rate 16 /min [facility] 02-13-2023 18:50-0500 Body height 175.26 cm [facility] 02-13-2023 18:50-0500 Body mass index (BMI) [Ratio] 37.5 kg/m2 [facility] 02-13-2023 18:50-0500 Body temperature 98 [degF] [facility] 02-13-2023 18:50-0500 Body weight 115.16 kg [facility] 02-13-2023 18:50-0500 Diastolic blood pressure 93 mm[Hg] [facility] 02-13-2023 18:50-0500 Heart rate 82 /min [facility] 02-13-2023 18:50-0500 SaO2% (BldA) [Mass fraction] 100 % [facility] 02-13-2023 18:50-0500 Systolic blood pressure 129 mm[Hg] [facility] 10-03-2022 13:00-0400 Body temperature 98.2 [degF] Anthony Spear APRN.VOCATIONAL ADVISER Work Phone: [facility] 10-03-2022 13:00-0400 Body weight 124.74 kg Anthony Spear APRN.CNP Work Phone: [facility] 10-03-2022 13:00-0400 Diastolic blood pressure 75 mm[Hg] Anthony Pendlebury DIE MAKER TRIM.VOCATIONAL ADVISER Work Phone: [facility] 10-03-2022 13:00-0400 Heart rate 75 /min Anthony Pendlebury DIE MAKER TRIM.VOCATIONAL ADVISER Work Phone: [facility] 10-03-2022 13:00-0400 Respiratory rate 20 /min [facility] TRIM.VOCATIONAL ADVISER Work Phone: [facility] 10-03-2022 13:00-0400 SaO2% (BldA) [Mass fraction] 97 % [facility]KER TRIM.VOCATIONAL ADVISER Work Phone: [facility] 10-03-2022 13:00-0400 Systolic blood pressure 133 mm[Hg] [facility] MAKER TRIM.VOCATIONAL ADVISER Work Phone: [facility] 09-30-2022 16:53-0400 Diastolic blood pressure 64 mm[Hg] [facility] 09-30-2022 16:53-0400 Heart rate 71 /min [facility] 09-30-2022 16:53-0400 Respiratory rate 20 /min [facility] 09-30-2022 16:53-0400 SaO2% (BldA) [Mass fraction] 94 % [facility] 09-30-2022 16:53-0400 Systolic blood pressure 118 mm[Hg] [facility] 09-30-2022 15:11-0400 Body height 175.26 cm [facility] 09-30-2022 15:11-0400 Body mass index (BMI) [Ratio] 40.1 kg/m2 [facility] 09-30-2022 15:11-0400 Body temperature 97.8 [degF] [facility] 09-30-2022 15:11-0400 Body weight 123.5 kg [facility] 2022 11:45-0400 Body temperature 98.2 [degF] Suma Luque DIE MAKER TRIM.VOCATIONAL ADVISER Work Phone: [facility] 2022 11:45-0400 Body weight 124.83 kg Suma Luque DIE MAKER TRIM.VOCATIONAL ADVISER Work Phone: [facility] 2022 11:45-0400 Diastolic blood pressure 79 mm[Hg] Suma Praisler-Wood DIE MAKER TRIM.VOCATIONAL ADVISER Work Phone: [facility] 2022 11:45-0400 Heart rate 121 /min Suma Praisler-Wood DIE MAKER TRIM.VOCATIONAL ADVISER Work Phone: [facility] 2022 11:45-0400 Respiratory rate 18 /min Suma Praisler-Wood DIE MAKER TRIM.VOCATIONAL ADVISER Work Phone: [facility] 2022 11:45-0400 SaO2% (BldA) [Mass fraction] 93 % Suma Praisler-Wood DIE MAKER TRIM.VOCATIONAL ADVISER Work Phone: [facility] 2022 11:45-0400 Systolic blood pressure 124 mm[Hg] Suma Praisler-Wood DIE MAKER TRIM.VOCATIONAL ADVISER Work Phone: [facility] 06-11-2022 11:42-0400 Body height 175.3 cm Maira Escamilla MD Work Phone: [facility] 06-11-2022 11:42-0400 Body weight 126.55 kg Maira Escamilla MD Work Phone: [facility] 06-11-2022 11:42-0400 Diastolic blood pressure 68 mm[Hg] Maira Escamilla MD Work Phone: [facility] 06-11-2022 11:42-0400 Heart rate 60 /min Maira Escamilla MD Work Phone: [facility] 06-11-2022 11:42-0400 SaO2% (BldA) [Mass fraction] 98 % Maira Escamilla MD Work Phone: [facility] 06-11-2022 11:42-0400 Systolic blood pressure 110 mm[Hg] Maira Escamilla MD Work Phone: [facility] 05-22-2022 11:26-0400 Body height 175.3 cm Maira Escamilla MD Work Phone: [facility] 05-22-2022 11:26-0400 Body weight 127.91 kg Maira Escamilla MD Work Phone: [facility] 05-22-2022 11:26-0400 Diastolic blood pressure 64 mm[Hg] Maira Escamilla MD Work Phone: [facility] 05-22-2022 11:26-0400 Heart rate 71 /min Maira Escamilla MD Work Phone: [facility] 05-22-2022 11:26-0400 SaO2% (BldA) [Mass fraction] 99 % Maira Escamilla MD Work Phone: [facility] 05-22-2022 11:26-0400 Systolic blood pressure 104 mm[Hg] Maira Escamilla MD Work Phone: [facility] 04-11-2022 11:48-0500 Body weight 133.36 kg Alison Briekathia Work Phone: [facility] 03-31-2022 13:57-0500 Body weight 136.62 kg Makeda Lynn DIE MAKER TRIM.VOCATIONAL ADVISER Work Phone: [facility] 03-31-2022 13:57-0500 Diastolic blood pressure 64 mm[Hg] Makeda [place] DIE MAKER TRIM.VOCATIONAL ADVISER Work Phone: [facility] 03-31-2022 13:57-0500 Systolic blood pressure 100 mm[Hg] Makeda Lynn DIE MAKER TRIM.VOCATIONAL ADVISER Work Phone: [facility] 02-22-2022 12:36-0500 Body temperature 99.1 [degF] Jacqueline Boston DIE MAKER TRIM.VOCATIONAL ADVISER Work Phone: [facility] 02-22-2022 12:36-0500 Body weight 142.7 kg Jacqueline Boston APRN.VOCATIONAL ADVISER Work Phone: [facility] 02-22-2022 12:36-0500 Diastolic blood pressure 70 mm[Hg] Jacqueline Boston DIE MAKER TRIM.VOCATIONAL ADVISER Work Phone: [facility] 02-22-2022 12:36-0500 Heart rate 84 /min Jacqueline Darvin DIE MAKER TRIM.VOCATIONAL ADVISER Work Phone: [facility] 02-22-2022 12:36-0500 Respiratory rate 18 /min Jacqueline Boston DIE MAKER TRIM.VOCATIONAL ADVISER Work Phone: [facility] 02-22-2022 12:36-0500 SaO2% (BldA) [Mass fraction] 98 % Jacqueline Boston DIE MAKER TRIM.VOCATIONAL ADVISER Work Phone: [facility] 02-22-2022 12:36-0500 Systolic blood pressure 122 mm[Hg] Jacqueline Boston DIE MAKER TRIM.VOCATIONAL ADVISER Work Phone: [facility] 12-10-2021 11:38-0400 Diastolic blood pressure 82 mm[Hg] Viviana Haagen DIE MAKER TRIM.VOCATIONAL ADVISER Work Phone: [facility] 12-10-2021 11:38-0400 Heart rate 72 /min Viviana Haagen DIE MAKER TRIM.VOCATIONAL ADVISER Work Phone: [facility] 12-10-2021 11:38-0400 Respiratory rate 18 /min Viviana Haagen DIE MAKER TRIM.VOCATIONAL ADVISER Work Phone: [facility] 12-10-2021 11:38-0400 SaO2% (BldA) [Mass fraction] 97 % Viviana Haagen DIE MAKER TRIM.VOCATIONAL ADVISER Work Phone: [facility] 12-10-2021 11:38-0400 Systolic blood pressure 124 mm[Hg] Viviana Haagen DIE MAKER TRIM.VOCATIONAL ADVISER Work Phone: [facility] 10-23-2021 13:30-0400 Diastolic blood pressure 69 mm[Hg] Nurse 5 Work Phone: [facility] 10-23-2021 13:30-0400 Heart rate 71 /min Nurse 5 Work Phone: [facility] 10-23-2021 13:30-0400 Respiratory rate 20 /min Nurse 5 Work Phone: [facility] 10-23-2021 13:30-0400 SaO2% (BldA) [Mass fraction] 100 % Nurse 5 Work Phone: [facility] 10-23-2021 13:30-0400 Systolic blood pressure 128 mm[Hg] Nurse 5 Work Phone: [facility] 10-23-2021 10:04-0400 Body temperature 97.3 [degF] Nurse 5 Work Phone: [facility] 10-18-2021 10:45-0400 Body height 175.[address] [facility] 10-18-2021 10:45-0400 Body weight 166.[address] [facility] 09-18-2021 11:36-0400 Body height 175.3 cm Pacc 1 Work Phone: [facility] 09-18-2021 11:36-0400 Body temperature 97.9 [degF] Pacc 1 Work Phone: [facility] 09-18-2021 11:36-0400 Body weight 178.72 kg Pacc 1 Work Phone: [facility] 09-18-2021 11:36-0400 Diastolic blood pressure 72 mm[Hg] Pacc 1 Work Phone: [facility] 09-18-2021 11:36-0400 Heart rate 101 /min Pacc 1 Work Phone: [facility] 09-18-2021 11:36-0400 Respiratory rate 16 /min Pacc 1 Work Phone: [facility] 09-18-2021 11:36-0400 SaO2% (BldA) [Mass fraction] 96 % Pacc 1 Work Phone: [facility] 09-18-2021 11:36-0400 Systolic blood pressure 118 mm[Hg] Pacc 1 Work Phone: [facility] 08-06-2021 11:31-0400 Diastolic blood pressure 84 mm[Hg] Viviana Marie APRN.VOCATIONAL ADVISER Work Phone: [facility] 08-06-2021 11:31-0400 Heart rate 92 /min Viviana Haagen DIE MAKER TRIM.VOCATIONAL ADVISER Work Phone: [facility] 08-06-2021 11:31-0400 Respiratory rate 18 /min Viviana Marie DIE MAKER TRIM.VOCATIONAL ADVISER Work Phone: [facility] 08-06-2021 11:31-0400 SaO2% (BldA) [Mass fraction] 99 % Viviana Marie DIE MAKER TRIM.VOCATIONAL ADVISER Work Phone: [facility] 08-06-2021 11:31-0400 Systolic blood pressure 126 mm[Hg] Viviana Marie DIE MAKER TRIM.VOCATIONAL ADVISER Work Phone: [facility] 07-30-2021 08:49-0400 Body height 175.[address] Work Phone: [facility] 07-30-2021 08:49-0400 Body weight 181.[address] Work Phone: [facility] 07-24-2021 11:45-0400 Body height 175.3 cm Cris Vacco DIE MAKER TRIM.VOCATIONAL ADVISER Work Phone: [facility] 07-24-2021 11:45-0400 Body weight 181.44 kg Cris Vacco DIE MAKER TRIM.VOCATIONAL ADVISER Work Phone: [facility] 07-15-2021 08:54-0400 Body weight 184.61 kg Donald Pearl MD Work Phone: [facility] 07-15-2021 08:54-0400 Diastolic blood pressure 74 mm[Hg] Donald Pearl MD Work Phone: [facility] 07-15-2021 08:54-0400 Heart rate 78 /min Donald Pearl MD Work Phone: [facility] 07-15-2021 08:54-0400 Respiratory rate 18 /min Donald Pearl MD Work Phone: [facility] 07-15-2021 08:54-0400 SaO2% (BldA) [Mass fraction] 98 % Donald Pearl MD Work Phone: [facility] 07-15-2021 08:54-0400 Systolic blood pressure 118 mm[Hg] Donald Pearl MD Work Phone: [facility] 06-24-2021 16:07-0400 Heart rate 88 /min [facility] Work Phone: 06-24-2021 16:07-0400 Respiratory rate 16 /min [facility] Work Phone: 06-24-2021 16:07-0400 SaO2% (BldA) [Mass fraction] 99 % [facility] Work Phone: 06-24-2021 14:18-0400 Body temperature 98 [degF] [facility] Work Phone: 06-24-2021 14:18-0400 Diastolic blood pressure 93 mm[Hg] [facility] Work Phone: 06-24-2021 14:18-0400 Systolic blood pressure 147 mm[Hg] [facility] Work Phone: 06-24-2021 14:16-0400 Body height 175.26 cm [facility] Work Phone: 06-24-2021 14:16-0400 Body mass index (BMI) [Ratio] 61.2 kg/m2 [facility] Work Phone: 06-24-2021 14:16-0400 Body weight 188.24 kg [facility] Work Phone: 06-24-2021 13:26-0400 Body temperature 97.2 [degF] Starr Haquek DIE MAKER TRIM.VOCATIONAL ADVISER Work Phone: [facility] 06-24-2021 13:26-0400 Body weight 188.06 kg Starr Leanna DIE MAKER TRIM.VOCATIONAL ADVISER Work Phone: [facility] 06-24-2021 13:26-0400 Diastolic blood pressure 82 mm[Hg] Starr Leanna DIE MAKER TRIM.VOCATIONAL ADVISER Work Phone: [facility] 06-24-2021 13:26-0400 Heart rate 79 /min Starr Leanna DIE MAKER TRIM.VOCATIONAL ADVISER Work Phone: [facility] 06-24-2021 13:26-0400 Respiratory rate 21 /min Starr Leanna DIE MAKER TRIM.VOCATIONAL ADVISER Work Phone: [facility] 06-24-2021 13:26-0400 SaO2% (BldA) [Mass fraction] 98 % Starr Leanna DIE MAKER TRIM.VOCATIONAL ADVISER Work Phone: [facility] 06-24-2021 13:26-0400 Systolic blood pressure 124 mm[Hg] Starr Leanna DIE MAKER TRIM.VOCATIONAL ADVISER Work Phone: [facility] 06-18-2021 14:15-0400 Body height 168.9 cm Alison Cetin DO Work Phone: [facility] 06-18-2021 14:15-0400 Body weight 187.34 kg Alison Cetin DO Work Phone: [facility] 06-18-2021 14:15-0400 Diastolic blood pressure 76 mm[Hg] Alison Cetin DO Work Phone: [facility] 06-18-2021 14:15-0400 Heart rate 100 /min Alison Cetin DO Work Phone: [facility] 06-18-2021 14:15-0400 Systolic blood pressure 140 mm[Hg] Alison Cetin DO Work Phone: [facility] 05-22-2021 10:59-0400 Body height 175.[address] Work Phone: [facility] 05-22-2021 10:59-0400 Body weight 191.[address] Work Phone: [facility] 05-21-2021 16:11-0400 Body height 173.2 cm Alison Cetin DO Work Phone: [facility] 05-21-2021 16:11-0400 Body weight 191.87 kg Alison Cetin DO Work Phone: [facility] 05-21-2021 16:11-0400 Diastolic blood pressure 84 mm[Hg] Alison Jules DO Work Phone: [facility] 05-21-2021 16:11-0400 Heart rate 86 /min Alison Jules DO Work Phone: [facility] 05-21-2021 16:11-0400 Systolic blood pressure 138 mm[Hg] Alison Jules DO Work Phone: [facility] NEGATED: Highlighted [id number] 10:42-0400 BMI (Body Mass Index) 62.26 kg/m2 Shirley Gabi AT [facility] Work Phone: NEGATED: Highlighted [id number] 10:42-0400 Body weight 185 kg Shirley Gabi AT [facility] Work Phone: NEGATED: Highlighted [id number] 10:42-0400 Body weight 185.07 kg Shirley Gabi AT [facility] Work Phone: NEGATED: Highlighted [id number] 10:42-0400 Height 173 cm Shirley Gabi AT [facility] Work Phone: NEGATED: Highlighted [id number] 10:42-0400 Height 172.72 cm Shirley Gabi AT [facility] Work Phone: Encounters Encounter Date Encounter Type Care Provider Facility Start: 09-13-2024 ambulatory Jamison Hernández Facility:[facility] Start: 09-09-2024 End: 09-09-2024 ambulatory MAIRA Bolton [facility] Facility:[facility] Start: 09-09-2024 End: 09-09-2024 Patient encounter [...] Start: 08-31-2024 End: 08-31-2024 ambulatory ROSEANN ARMSTRONG Facility:[facility] Start: 08-24-2024 End: 08-24-2024 ambulatory BEULAH CAMPA Facility:[facility] Start: 08-24-2024 End: 08-24-2024 Patient encounter [...] End: 08-07-2024 ambulatory Makeda Horta RN NURSE PELLET POST INSPECTOR Comment on above: Patient Update Start: 08-04-2024 End: 08-04-2024 Patient encounter procedure Makeda Smith APRN.VOCATIONAL ADVISER Work Phone: OB/Gynecology Comment on above: Abnormal uterine ble eding (AUB) (Primary Dx); Adenomyosis of uterus Start: 08-04-2024 End: 08-04-2024 ambulatory MAKEDA WINNEBAGO Facility:[facility] Start: 08-01-2024 End: 08-01-2024 Patient encounter procedure Beulah Campa MD Work Phone: OB/Gynecology Comment on above: Menorrhagia with reg ular cycle (Primary Dx); Dysmenorrhea Start: 08-01-2024 End: 08-01-2024 ambulatory BEULAH CAMPA Facility:[facility] Start: 07-26-2024 End: 07-26-2024 Telephone encounter Makeda Smith APRN.VOCATIONAL ADVISER Work Phone: OB/Gynecology Comment on above: Patient Question Start: 07-22-2024 End: 07-22-2024 Patient encounter procedure Makeda Smith APRN.VOCATIONAL ADVISER Work Phone: OB/Gynecology Comment on above: Screening for cervic al cancer (Primary Dx) Start: 07-22-2024 End: 07-22-[address] [facility] Facility:[facility] Start: 07-21-2024 Encounter for gynecological examination (general) (routine) without abnormal findings MAIRA ESCAMILLA [facility] Start: 07-21-2024 End: 07-21-2024 Patient encounter status Screen Wstr [facility] Start: 07-21-2024 End: 07-21-2024 Subsequent hospital visit by physician Screen Mammo [facility] Wstr Mammogram Comment on above: Encounter for gyneco logical examination (general) (routine) without abnormal findings [Z01.419] Start: 07-21-2024 End: 07-21-2024 ambulatory 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 [employer] Work Phone: OB/Gynecology Start: 07-21-2024 End: 07-21-2024 Patient encounter procedure [employer] [facility] OB/Gynecology Start: 07-19-2024 End: 07-19-2024 Telephone encounter Makeda Smith APRN.VOCATIONAL ADVISER Work Phone: OB/Gynecology Comment on above: HPV Vaccine Start: 07-18-2024 End: 07-18-2024 ambulatory Maira Escamilla MD Work Phone: [facility] Comment on above: SVT (supraventricula r tachycardia) (HCC) (Primary Dx); Mild intermittent asthma, unspecified whether complicated (HCC); Gastroesophageal reflux disease without esophagitis; History of gastric bypass Start: 07-18-2024 End: 07-18-2024 Telemedicine consultation with patient Maira Escamilla MD Work Phone: [facility] Start: 07-14-2024 End: 07-14-2024 Chart abstracting Jae Sterling MD Work Phone: Plastic Surgery Comment on above: PHOTOS TAKEN Start: 07-14-2024 End: 07-14-2024 ambulatory MAIRA ESCAMILLA Facility:[facility] Start: 07-14-2024 End: 07-14-2024 Office outpatient visit 25 minutes Bonny Henry APRN.VOCATIONAL ADVISER Work Phone: Plastic Surgery Comment on above: Excess skin (Primary Dx); Loose skin Start: 07-12-2024 End: 07-12-2024 ambulatory MAKEDA SMITH Facility:[facility] Start: 07-12-2024 End: 07-12-2024 Patient encounter procedure Makeda Smith VOCATIONAL ADVISER Work Phone: OB/Gynecology Comment on above: Encounter for gyneco logical examination (general) (routine) without abnormal findings (Primary Dx); Screening for cervical cancer; Encounter for screening for human papillomavirus (HPV); Encounter for screening mammogram for breast cancer; Menorrhagia with regular cycle; Need for prophylactic vaccination/inoculation against viral disease Start: 07-12-2024 End: 07-12-2024 Patient encounter status Makeda Smith KYLE.VOCATIONAL ADVISER Work Phone: [facility] Start: 06-21-2024 End: 08-01-2024 Telephone encounter Jae Sterling MD Work Phone: Plastic Surgery Comment on above: Insurance Authorizat ion Start: 06-09-2024 End: 06-09-2024 Office outpatient visit 15 minutes Bonny Henry APRN.VOCATIONAL ADVISER Work Phone: Plastic Surgery Comment on above: S/P panniculectomy ( Primary Dx) Start: 06-09-2024 End: 06-09-2024 ambulatory MAIRA ESCAMILLA Facility:[facility] Start: 06-03-2024 End: 06-03-2024 ambulatory BONNY HENRY Facility: Start: 06-02-2024 End: 06-02-2024 Emergency department patient [...] 05-27-2024 End: 05-27-2024 Orders Only Bonny Henry APRN.VOCATIONAL ADVISER Work Phone: Plastic Surgery Start: 05-26-2024 End: 05-26-2024 Telephone encounter Jae Sterling MD Work Phone: Internal Medicine [place] Comment on above: Abscess (/) Start: 05-12-2024 End: 05-12-2024 ambulatory [facility] Facility:[facility] Start: 05-12-2024 End: 05-12-2024 Office outpatient visit 15 minutes Bonny Henry DIE MAKER TRIM.VOCATIONAL ADVISER Work Phone: Plastic Surgery Comment on above: S/P panniculectomy ( Primary Dx) Start: 05-01-2024 End: 05-01-2024 ambulatory Adela Mejía RN NURSE PELLET POST INSPECTOR Comment on above: Patient Update Start: 04-17-2024 End: 04-18-2024 Refill Anna Nino APRN.VOCATIONAL ADVISER Work Phone: [facility] Comment on above: Refill Request Start: 04-14-2024 End: 04-14-2024 [facility] Facility:[facility] Start: 04-14-2024 End: 04-14-2024 Postop follow up visit related to original px Bonny Elaine DIE MAKER TRIM.VOCATIONAL ADVISER Work Phone: Plastic Surgery Comment on above: Post-operative state (Primary Dx); S/P panniculectomy Start: 04-05-2024 End: 04-06-2024 Telephone encounter Jae Sterling MD Work Phone: Plastic Surgery Comment on above: Multiple Concerns (S ee note) Start: 03-31-2024 End: 03-31-2024 [facility] Facility:[facility] Start: 03-31-2024 End: 03-31-2024 Postop follow up visit related to original px Bonny Elaine DIE MAKER TRIM.VOCATIONAL ADVISER Work Phone: Plastic Surgery Comment on above: Post-operative state (Primary Dx); S/P panniculectomy Start: 03-28-2024 End: 03-28-2024 Refill Maira Escamilla MD Work Phone: [facility] Comment on above: Refill Request Clinical Update Wound Check Start: 03-26-2024 End: 03-26-2024 ambulatory [facility] Facility:[facility] Start: 03-26-2024 End: 03-26-2024 Patient encounter procedure Starr Ram APRN.VOCATIONAL ADVISER Work Phone: [facility] Comment on above: Acute right-sided lo w back pain with right-sided sciatica (Primary Dx) Start: 03-24-2024 End: 03-24-2024 ambulatory [facility] Facility:[facility] Start: 03-24-2024 End: 03-24-2024 Postop follow up visit related to original px Bonny Henry KYLE.VOCATIONAL ADVISER Work Phone: Plastic Surgery Comment on above: Post-operative state (Primary Dx); S/P panniculectomy Start: 03-21-2024 End: 03-21-2024 Telephone encounter Jae Sterling MD Work Phone: Plastic Surgery Comment on above: Nausea, stomach upse t; Patient Question Start: 03-14-2024 End: 03-14-2024 ambulatory [facility] Facility:[facility] Start: 03-10-2024 End: 03-10-2024 [facility] Facility:[facility] Start: 03-10-2024 Encounter for other preprocedural examination [facility] Start: 03-10-2024 End: 03-10-2024 [facility] Facility:[facility] Start: 03-10-2024 End: 03-10-2024 Patient encounter procedure Jae Sterling MD Work Phone: Plastic Surgery Comment on above: Class 3 severe obesi ty due to excess calories without serious comorbidity with body mass index (BMI) of 50.0 to 59.9 in adult (HCC) (Primary Dx); Pre-op evaluation Start: 03-10-2024 End: 03-10-2024 Preprocedural examination done Jae Sterling MD Work Phone: [facility] Work Phone: Start: 03-08-2024 End: 03-08-2024 Patient encounter procedure Magdalena Ram AR [facility] Work Phone: Start: 03-08-2024 End: 03-08-2024 ambulatory Maira Escamilla Facility:[facility] [place] [place] Start: 03-02-2024 End: 07-14-2024 Telephone encounter Mary Moura APRN.CNP Work Phone: Pre Anesthesia Comment on above: Pre-op Illness Start: 02-29-2024 End: 02-29-2024 [facility]ill [facility] Work Phone: [facility] Start: 02-28-2024 End: 02-28-2024 Patient encounter procedure Octaviano Ayoub PA Work Phone: [place] [facility] Comment on above: Flu-like symptoms (P rimary Dx); Influenza A Start: 02-28-2024 End: 02-28-2024 ambulatory Bobbi Fitzgerald RN NURSE PELLET POST INSPECTOR Comment on above: Viral Syndrome Start: 02-23-2024 End: 02-25-2024 Telephone encounter Rola DIANE Navigation Start: 02-22-2024 End: 02-22-2024 Telephone encounter Maira Escamilla MD Work Phone: [facility] [place] Comment on above: Future Appointment Start: 02-22-2024 End: 02-22-2024 [facility] Hoang [facility] Facility:[facility] Start: 02-22-2024 End: 02-22-2024 Office outpatient visit 15 minutes Anna Nino APRN.VOCATIONAL ADVISER Work Phone: [facility] [place] Comment on above: Homeless (Primary Dx ); Anxiety with depression; Screening for depression Start: 02-15-2024 Encounter for other preprocedural examination [facility] Start: 02-15-2024 End: 02-15-2024 Admission to establishment [facility] [place] [facility] Work Phone: Pre Anesthesia Start: 02-15-2024 End: 02-15-2024 ambulatory MARY MOURA Facility:[facility] Start: 02-15-2024 End: 02-15-2024 Anesthesia consultation [facility] [place] [facility] Work Phone: Pre Anesthesia Comment on above: Pre-operative examin ation (Primary Dx); Migraine without status migrainosus, not intractable, unspecified migraine type; SVT (supraventricular tachycardia) (HCC); Mild intermittent asthma, unspecified whether complicated; Gastroesophageal reflux disease without esophagitis; History of gastric bypass Start: 02-15-2024 End: 02-15-2024 Preprocedural examination done [facility] 1 Work Phone: [facility] Work Phone: Start: 02-15-2024 End: 02-15-2024 Telephone encounter Mary Moura APRN.VOCATIONAL ADVISER Work Phone: Pre Anesthesia Start: 12-01-2023 ambulatory [facility] Facility:[facility] Start: 11-27-2023 End: 11-27-2023 Patient encounter procedure Jae Sterling MD Work Phone: [facility] Comment on above: Pre-op evaluation (P rimary Dx) Start: 11-27-2023 End: 11-27-2023 Preprocedural examination done Jae Sterling MD Work Phone: [facility] Start: 11-27-2023 End: 11-27-2023 ambulatory JAE STERLING Facility: Start: 11-27-2023 Encounter for other preprocedural examination JAE L GUSTAVO Start: 11-17-2023 End: 06-13-2024 Telephone encounter Bonny Henry APRN.VOCATIONAL ADVISER Work Phone: Plastic Surgery Comment on above: Insurance Authorizat ion Start: 10-30-2023 End: 10-30-2023 ambulatory [facility] Facility:[facility] Start: 10-30-2023 End: 10-30-2023 Patient encounter procedure Maira Escamilla MD Work Phone: [facility] Comment on above: SVT (supraventricula r tachycardia) [...] PHOTOS TAKEN Start: 10-08-2023 End: 10-08-2023 ambulatory [facility] Facility:[facility] Start: 10-08-2023 End: 10-08-2023 Office outpatient new 45 minutes Bonny Henry DIE MAKER TRIM.VOCATIONAL ADVISER Work Phone: Plastic Surgery Comment on above: Loose skin (Primary Dx); Abdominal pannus; Rash; Dermatitis; Intertrigo Start: 10-06-2023 End: 10-06-2023 ambulatory [facility] Facility:[facility] Start: 10-06-2023 End: 10-06-2023 [facility] Facility:[facility] Start: 10-06-2023 End: 10-11-2023 Patient encounter [...] Start: 09-28-2023 End: 09-28-2023 Refill Viviana Marie DIE MAKER TRIM.VOCATIONAL ADVISER Work Phone: [facility] [place] Comment on above: Refill Request Encounter for surgic al aftercare following surgery of digestive system (Primary Dx); Abdominal pannus; Vitamin D deficiency Start: 09-12-2023 ambulatory Gavi Ibrahim RN NURS E PELLET POST INSPECTOR Comment on above: Rib Injury Start: 08-31-2023 End: 08-31-2023 Emergency department patient visit DR SHARON NARANJO MD [facility] Start: 08-25-2023 End: 08-25-2023 Subsequent hospital visit by physician Xr [facility] Work Phone: Radiology Comment on above: URI, acute [J06.9] Start: 08-25-2023 End: 08-25-2023 Patient encounter procedure Maira Escamilla MD Work Phone: [facility] [place] Comment on above: Chest pain, unspecif ied type (Primary Dx); Headache, unspecified headache type; History of migraine; Vision loss; Near syncope; URI, acute; Confusion; Acute cough; Recurrent cold sores Start: 08-22-2023 Telephone encounter Maira Escamilla MD Work Phone: Internal Medicine [place] Start: 08-19-2023 Refill Viviana Marie APRN.VOCATIONAL ADVISER Work Phone: [facility] Comment on above: Refill Request Start: 07-22-2023 End: 07-22-2023 ambulatory Viviana Marie APRN.VOCATIONAL ADVISER Work Phone: [facility] Comment on above: Migraine without sta tus migrainosus, not intractable, unspecified migraine type (Primary Dx); Gastric bypass status for obesity; Cold intolerance; Hyperglycemia; Screening for hyperlipidemia; Cervical radiculopathy Start: 07-22-2023 End: 07-22-2023 Telemedicine consultation with patient Viviana Cynthia WYNNVOCATIONAL ADVISER Work Phone: [facility] [place] Start: 07-16-2023 Refill Maira Escamlila MD Work Phone: Internal Medicine [place] Comment [...] MD Work Phone: Internal Medicine [facility] Start: 03-20-2023 Refill Hussein cade MD Work Phone: [facility] Comment on above: Refill Request Start: 03-05-2023 End: 03-05-2023 [facility] Start: 02-13-2023 End: 02-13-2023 [facility] Start: 10-03-2022 End: 10-03-2022 Office outpatient visit 25 minutes Anthony Spear APRN.VOCATIONAL ADVISER Work Phone: [facility] Comment on above: Viral bronchitis (Pr imary Dx) Start: 09-30-2022 End: 09-30-2022 [facility] Start: 09-30-2022 Telephone encounter Maira Escamilla MD Work Phone: [facility] Comment on above: prescriptions /nebul izer solution/tubing/mouth pc. Start: 2022 End: 2022 Patient encounter procedure Suma Luque APRN.VOCATIONAL ADVISER Work Phone: [facility] Comment on above: Viral bronchitis (Pr imary Dx) Start: 06-16-2022 Telephone encounter Maira Escamilla MD Work Phone: [facility] Comment on above: Results Start: 06-11-2022 End: 06-11-2022 Patient encounter procedure Maira Escamilla MD Work Phone: [facility] Comment on above: Lightheaded (Primary Dx); Migraine without status migrainosus, not intractable, unspecified migraine type; Gastric bypass status for obesity Start: 06-05-2022 End: 06-05-2022 ambulatory Maira Escamilla MD Work Phone: [facility] Comment on above: Allergy, subsequent encounter (Primary Dx) Start: 06-05-2022 End: 06-05-2022 Telemedicine consultation with patient Maira Escamilla MD Work Phone: [facility] Start: 05-22-2022 End: 05-22-2022 Patient encounter procedure Maira Escamilla MD Work Phone: [facility] Comment on above: Sciatica, right side (Primary Dx) Start: 05-20-2022 Refill Justin Edison Elder on PA-C Work Phone: [facility] Comment on above: Refill Request Start: 05-19-2022 Telephone encounter Makeda hernandez APRN.VOCATIONAL ADVISER Work Phone: OB/Gynecology Comment on above: Medication [...] with patient Alison Jules DO Work Phone: [facility] Start: 04-02-2022 Refill Roseann rod MD Work Phone: [facility] Comment on above: Refill Request Start: 03-31-2022 End: 03-31-2022 Patient encounter procedure Makeda Smith APRN.VOCATIONAL ADVISER Work Phone: OB/Gynecology Comment on above: Irregular menses (Pr imary Dx) Start: 03-08-2022 Documentation procedure Mammog mario alberto Coordinator [facility] Start: 03-08-2022 Letter encounter Mammography Coordinator [facility] Department Start: 03-07-2022 End: 03-07-2022 Subsequent hospital visit by physician Screen Mammo [facility] Mammogram Comment on above: Encounter for screen ing mammogram for breast cancer [Z12.31] Start: 02-22-2022 End: 02-22-2022 Patient encounter procedure Jacqueline Boston APRN.VOCATIONAL ADVISER Work Phone: [facility] Comment on above: Sore throat (Primary Dx); Strep throat Start: 01-20-2022 Telephone encounter Maira Escamilla MD Work Phone: [facility] [place] Comment on above: Work excuse letter Start: 01-18-2022 End: 01-18-2022 ambulatory Hussein Morel MD Work Phone: [facility] [place] Comment on above: COVID (Primary Dx) Start: 01-18-2022 End: 01-18-2022 Telemedicine consultation with patient Hussein Morel MD Work Phone: [facility] Start: 01-17-2022 Telephone encounter Maira Escamilla MD Work Phone: [facility] [place] Comment on above: Patient Update Start: 01-10-2022 End: 01-10-2022 Patient encounter procedure Elise Butterfield RD Work Phone: General Surgery Comment on above: No-show for appointm ent (Primary Dx) Start: 01-10-2022 End: 01-10-2022 Telemedicine consultation with patient Elise Butterfield RD Work Phone: [facility] Start: 01-06-2022 Telephone encounter Naresh gomez MD Work Phone: General Surgery Comment on above: Returning Patient's Call Start: 12-10-2021 Telephone encounter Maira Escamilla MD Work Phone: [facility] Comment on above: Prescription Clarifi cation Start: 12-10-2021 End: 12-10-2021 Office outpatient visit 15 minutes Viviana Marie APRN.CNP Work Phone: [facility] Comment on above: Recurrent cold sores [...] with patient Fellow Ladonna Main Work Phone: [facility] Start: 10-26-2021 Telephone encounter Akshat Pinto MD Work Phone: General Surgery Comment on above: URI Start: 10-23-2021 Admission to [facility] Dionicio Faith MD Work Phone: General Surgery Comment on above: Bariatric surgery [facility] (Primary Dx) Start: 10-23-2021 End: 10-23-2021 Subsequent hospital visit by physician Nurse Gi Proc 5 Work Phone: Gastroenterology Start: 10-22-2021 Admission to [facility] Dionicio Faith MD Work Phone: General Surgery Comment on above: Bariatric surgery [facility] (Primary Dx) Start: 10-22-2021 Telephone encounter Sabino schaeffer APRN.VOCATIONAL ADVISER Work Phone: [facility] Comment on above: Initial Consult (Urg ent Dispatch) Medication Problem Start: 10-21-2021 Admission to [facility] Dionicio Faith MD Work [...] with patient Fellow Ladonna Main Work Phone: [facility] Start: 10-09-2021 End: 10-09-2021 ambulatory Fellow Ladonna Main Work Phone: General Surgery Comment on above: Morbid obesity due t o excess calories (HCC) (Primary Dx) Start: 10-09-2021 Telephone encounter Lianne Welch RN General Surgery Comment on above: Returning Patient's Call Start: 10-04-2021 Patient Outreach Esther Kirk Urrutia on RN Work Phone: [employer] Comment on above: Transition Of Care ( /TCM Initial Hospital Discharge [facility] on 10-03-21./) Post Op Medication Problem Start: 09-24-2021 Telephone encounter Lianne Welch RN General Surgery Comment on above: BMI Follow Up Start: 09-18-2021 End: 09-18-2021 Admission to [facility] Pacc Michael 1 Work Phone: [facility] [...] Maira Escamilla MD Work Phone: Internal Medicine [place] Comment on above: Refill Request Start: 08-07-2021 ambulatory Naresh Schmitz MD Work Phone: General Surgery Comment on above: 10/01/2021 Start: 08-07-2021 Preprocedural examination done Naresh Schmitz MD Work Phone: General Surgery Start: 08-06-2021 End: 08-06-2021 Patient encounter procedure Viviana Marie APRN.VOCATIONAL ADVISER Work Phone: [facility] Comment on above: Facial rash (Primary Dx) Start: 07-30-2021 End: 07-30-[address] Work Phone: General Surgery Comment on above: Morbid obesity (HCC) (Primary Dx); Dietary counseling and surveillance Start: 07-30-2021 End: 07-30-2021 Telemedicine consultation with patient Daniel Dimlele HANNA Work Phone: [facility] Start: 07-24-2021 End: 07-24-2021 [facility] Cris Danica WRIGHT.VOCATIONAL ADVISER Work Phone: General Surgery Comment on above: Class 3 severe obesi ty due to excess calories with body mass index (BMI) of 50.0 to 59.9 in adult, unspecified whether serious comorbidity present (HCC) (Primary Dx); Weight disorder; Medication management Start: 07-15-2021 End: 07-15-2021 Patient encounter procedure Donald Pearl MD Work Phone: [facility] Comment on above: Cubital tunnel syndr ome on left (Primary Dx) Refill Request Start: 06-26-2021 Telephone encounter Maira Escamilla MD Work Phone: [facility] Comment on above: Patient Update Start: 06-24-2021 End: 06-24-2021 Emergency department patient visit [facility] Start: 06-24-2021 ambulatory Maira Escamilla MD Work Phone: [facility] Comment on above: Abdominal Pain Start: 06-24-2021 End: 06-24-2021 Patient encounter procedure Starr Ram APRN.VOCATIONAL ADVISER Work Phone: [facility] Comment on above: Abdominal pain, unsp ecified [...] a call back. Her phone number is [phone]. 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 [...] with patient Daniel Dimlele HANNA Work Phone: [facility] Start: 05-21-2021 End: 05-21-2021 Patient encounter procedure Alison Jules DO Work Phone: General Surgery Comment on above: Class 3 severe obesi ty with serious comorbidity and body mass index (BMI) of 60.0 to 69.9 in adult, unspecified obesity type (HCC) (Primary Dx) Start: 05-01-2021 End: 05-01-2021 Subsequent hospital visit by physician [facility] Michael Work Phone: Radiology Comment on above: Class 3 severe obesi ty due to excess calories without serious comorbidity with body mass index (BMI) of 60.0 to 69.9 in adult (HCC) [E66.01, Z68.44] Start: 02-22-2021 End: 02-22-2021 Subsequent hospital visit by physician [facility] Ronn Work Phone: Radiology Comment on above: Pain [R52] Start: 09-27-2019 End: 09-27-2019 Patient encounter procedure Sri Duran DIE MAKER TRIM-VOCATIONAL ADVISER Work Phone: [facility] Work Phone: Start: 09-27-2019 End: 09-27-2019 Pt evaluation Sri Duran DIE MAKER TRIM-VOCATIONAL ADVISER Work Phone: [facility] Work Phone: Procedures Date Procedure [...] 08-04-2024 UA DIP,URINE HCG (POC) Makeda Lynn DIE MAKER TRIM.VOCATIONAL ADVISER Work Phone: Start: 07-21-2024 Us pelvic nonobstetr ic real-time image complete Makeda Lynn DIE MAKER TRIM.VOCATIONAL ADVISER Work Phone: Start: 06-02-2024 Estimated creatinine clearance [...] as positive - follow-up documented Sri Millermessi DIE MAKER TRIM-VOCATIONAL ADVISER Work Phone: Start: 09-27-2019 End: 09-27-2019 Tobacco non-user Sri Duran DIE MAKER TRIM-VOCATIONAL ADVISER Work Phone: H/O: surgery S/P panniculectomy Bonny Pat christi DIE MAKER TRIM.VOCATIONAL ADVISER Work Phone: H/O: surgery S/P panniculectomy Bonny Pat christi DIE MAKER TRIM.VOCATIONAL ADVISER Work Phone: H/O: surgery S/P panniculectomy Bonny Pat christi DIE MAKER TRIM.VOCATIONAL ADVISER Work Phone: H/O: surgery S/P panniculectomy Bonny Pat christi DIE MAKER TRIM.VOCATIONAL ADVISER Work Phone: H/O: surgery S/P panniculectomy Bonny Pat christi DIE MAKER TRIM.VOCATIONAL ADVISER Work Phone: H/O: tubal ligation History of [...] malignant neoplasm of cervix Cervical Cancer Screening [facility] Start: 07-12-2029 Screening for malignant neoplasm of cervix Cervical Cancer Screening [facility] Start: 07-21-2025 Screening for malignant neoplasm of breast Mammogram Screening [facility] Start: 07-18-2025 Annual PCP Team Chronic Disease Visit Annual PCP Team Chronic Disease Visit [facility] Start: 07-13-2025 End: 07-13-2025 Patient encounter procedure 07/13/2025 1:30 PM EDT Office Visit OB/Gynecology [place] [address] Makeda Smith APRN.VOCATIONAL ADVISER [address] [place] [address] annual OB/Gynecology Comment on above: annual Start: 02-21-2025 Annual PCP Team Chronic Disease Visit Annual PCP Team Chronic Disease Visit [facility] Start: 02-21-2025 Anxiety Screening Anxiety Screening [facility] Start: 02-21-2025 Depression Screening Depression Screening [facility] Start: 01-11-2025 End: 01-11-2025 Nursing evaluation of patient and report 01/11/2025 9:00 AM EST Nurse Visit OB/Gynecology [address] [place] [id number] Wstr, Nurse Smoke Chaser [facility] [address] [place] [address] hpv vaccine OB/Gynecology Comment on above: hpv vaccine Start: 01-08-2025 9vhpv vacc 2/3 dose sched im use HPV VACCINE, 9-VALENT (GARDASIL 9) Immunization/Injection Routine Need for prophylactic vaccination/inoculation against viral disease Expected: 01/08/2025 (Approximate) [facility] Comment on above: Expected: 01/08/2025 (Approximate) Start: 10-29-2024 Annual PCP Team Chronic Disease Visit Annual PCP Team Chronic Disease Visit [facility] Start: 10-29-2024 Anxiety Screening Anxiety Screening [facility] Comment on above: Postponed from 09/28/1997 (Declined at t his time) Start: 10-29-2024 Hepatitis B Vaccine (1 of 3 - 19+ 3-dose series) Hepatitis B Vaccine (1 of 3 - 19+ 3-dose series) [facility] Comment on above: Postponed from 09/28/1998 (Declined at t his time) Start: 10-29-2024 Urine microalbumin profile DTaP,Tdap,Td Vaccine (1 - Tdap) [facility] Comment on above: Postponed from 06/29/2013 (Declined at t his time) Start: 10-13-2024 End: 10-13-2024 Patient encounter procedure 10/13/2024 10:50 AM EDT Office Visit OB/Gynecology [address] [place] [id number] Beulah Campa MD [address] [place], [place] [id number] POST OP OB/Gynecology Comment on above: POST OP Start: 10-10-2024 Influenza vaccination Influenza Vaccine (#1) [facility] Start: 09-12-2024 End: 09-12-2024 Nursing evaluation of patient and report 09/12/2024 4:00 PM EDT Nurse Visit OB/Gynecology [address] [place], [place] [phone] Wstr, Nurse Smoke Chaser [facility] [address] [place], [place] [id number] HPV vaccine OB/Gynecology Comment on above: HPV vaccine Start: 09-11-2024 Subsequent hospital visit by physician 09/11/2024 Hospital Encounter Surgery Center [address] [address] Jae Sterling MD [address] [place], [place] [phone] Excess skin [L98.7], Loose skin [L98.7] Surgery Center Comment on above: Excess skin [L98.7], Loose skin [L98.7] Start: 09-10-2024 9vhpv vacc 2/3 dose sched im use HPV VACCINE, 9-VALENT (GARDASIL 9) Immunization/Injection Routine Need for prophylactic vaccination/inoculation against viral disease Expected: 09/10/2024 (Approximate) [facility] Comment on above: Expected: 09/10/2024 (Approximate) Start: 09-10-2024 End: 09-10-2024 Orders Only 09/10/2024 Orders Only OB/Gynecology [address] [place], [place] [phone] Makeda Smith APRN.VOCATIONAL ADVISER [address] [place], [place] [phone] Need for prophylactic vaccination/inoculation against viral disease OB/Gynecology Comment on above: Need for prophylactic vaccination/inocul ation against viral disease Start: 09-09-2024 End: 09-09-2024 Patient encounter procedure OB/Gynecology Comment on above: POST OP POST OP - path repor t in binder Start: 09-01-2024 Patient discharge [facility] Start: 09-01-2024 Planned voiding [facility] Start: 09-01-2024 Ambulation without limitation [facility] Start: 09-01-2024 Medication education [facility] Start: 09-01-2024 Procedure discontinued [facility] Start: 09-01-2024 Taking patient vital signs [facility] Start: 09-01-2024 Vital signs measurements [facility] Start: 09-01-2024 [facility] Start: 08-24-2024 Annual PCP Team Chronic Disease Visit Annual PCP Team Chronic Disease Visit [facility] Start: 08-21-2024 Subsequent hospital visit by physician 08/21/2024 Hospital Encounter Surgery Center [address] [id number] Jae Sterling MD [address] [place] [address] Excess skin [L98.7], Loose skin [L98.7] Surgery Center Comment on above: Excess skin [L98.7], Loose skin [L98.7] Start: 08-16-2024 [facility] Start: 08-07-2024 HPV TESTING HPV TESTING [facility] Start: 08-07-2024 PAP TESTING PAP TESTING [facility] Start: 08-07-2024 Screening for malignant neoplasm of cervix [facility] Start: 08-07-2024 Subsequent hospital visit by physician 08/07/2024 Hospital Encounter Surgery Center [address] [address] Jae Sterling MD [address] [place] [address] Excess skin [L98.7], Loose skin [L98.7] Surgery Center Comment on above: Excess skin [L98.7], Loose skin [L98.7] Start: 08-04-2024 End: 08-04-2024 Patient encounter procedure 08/04/2024 9:30 AM EDT Office Visit OB/Gynecology [address] [place] [address] Makeda Smith APRN.VOCATIONAL ADVISER [address] [place] [address] Menorrhagia with regular cycle [N92.0] OB/Gynecology Comment on above: Menorrhagia with regular cycle [N92.0] Start: 08-01-2024 End: 08-01-2024 Patient encounter procedure 08/01/2024 9:20 AM EDT Office Visit OB/Gynecology [address] [place] [address] Beulah Campa MD [address] [place] [address] Discuss Hysterectomy OB/Gynecology Comment on above: Discuss Hysterectomy Start: 07-22-2024 End: 07-22-2024 Patient encounter procedure 07/22/2024 10:15 AM EDT Office Visit OB/Gynecology [address] [place] [address] Makeda Smith APRN.VOCATIONAL ADVISER [address] [place] [address] redo pap-per TE OB/Gynecology Comment on above: redo pap-per TE Start: 07-21-2024 Annual PCP Team Chronic Disease Visit Annual PCP Team Chronic Disease Visit [facility] Start: 07-21-2024 End: 07-21-2024 Patient encounter procedure 07/21/2024 11:10 AM EDT Appointment Mammogram [address] [place] [address] Encounter for screening mammogram for breast cancer [Z12.31] Mammogram Comment on above: Encounter for screening mammogram for br east cancer [Z12.31] Start: 07-21-2024 End: 07-21-2024 ambulatory 07/21/2024 10:00 AM EDT Procedure OB/Gynecology [address] [place] [address] 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, 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 [facility] [address] [place] [address] Menorrhagia with regular cycle [N92.0] OB/Gynecology Comment on above: Menorrhagia with regular cycle [N92.0] Start: 07-14-2024 End: 07-14-2024 Patient encounter procedure 07/14/2024 1:00 PM EDT Office Visit Plastic Surgery [address] [place] [address] Bonny Henry APRN.VOCATIONAL ADVISER [address] [place] [address] Surgery consult Plastic Surgery Comment on above: Surgery consult Start: 07-12-2024 End: 07-12-2025 US Pelvis PELVIC US [facility] Anc Imaging Routine Menorrhagia with regular cycle Expected: 07/12/2024, Expires: 07/12/2025 [facility] Comment on above: Expected: 07/12/2024, Expires: Start: 06-09-2024 End: 06-09-2024 Patient encounter procedure 06/09/2024 11:20 AM EDT Office Visit Plastic Surgery [address] [place] [address] Bonny Henry, KYLE.VOCATIONAL ADVISER [address] [place] [address] follow up in 1 month Plastic Surgery Comment on above: follow up in 1 month Start: 06-03-2024 End: 06-03-2024 Patient encounter procedure 06/03/2024 1:00 PM EDT [place] [address] [place] [address] Bonny Henry, KYLE.VOCATIONAL ADVISER [address] [place] [address] possible infected spitting suture [facility] Comment on above: possible infected spitting suture Start: 06-02-2024 [facility] Start: 06-02-2024 [facility] Start: 06-02-2024 Bacteria identified in Blood by Culture Blood Culture [facility] Start: 05-27-2024 End: 08-26-2024 NICOTINE/COTININE NICOTINE/COTININE Lab Routine Pre-op evaluation Expected: 05/27/2024 (Approximate), Expires: 08/26/2024 [facility] Work Phone: Comment on above: Expected: 05/27/2024 (Approximate), Expi res: 08/26/2024 Start: 05-12-2024 End: 05-12-2024 Patient encounter procedure 05/12/2024 10:00 AM EDT Office Visit Plastic Surgery [address] [place] [address] Bonny Henry, DIE MAKER TRIM.VOCATIONAL ADVISER [address] [place] [address] FOLLOW 2 WEEKS Plastic Surgery Comment on above: FOLLOW 2 WEEKS Start: 04-14-2024 End: 04-14-2024 Patient encounter procedure 04/14/2024 11:40 AM EST Office Visit Plastic Surgery [address] [place] [address] Bonny Henry, DIE MAKER TRIM.VOCATIONAL ADVISER [address] [place] [address] FOLLOW 2 WEEKS Plastic Surgery Comment on above: FOLLOW 2 WEEKS Start: 03-31-2024 End: 03-31-2024 Patient encounter procedure 03/31/2024 1:20 PM EST Office Visit Plastic Surgery [address] [place] [address] Bonny Henry, DIE MAKER TRIM.VOCATIONAL ADVISER [address] [place] [address] 1 week Plastic Surgery Comment on above: 1 week Start: 03-24-2024 End: 03-24-2024 Patient encounter procedure 03/24/2024 11:00 AM EST Office Visit Plastic Surgery [id number] [place] [address] Bonny Henry APRN.VOCATIONAL ADVISER [address] [place] [address] post op Plastic Surgery Comment on above: post op Start: 03-14-2024 End: 03-14-2024 Admission to same day surgery center 03/14/2024 7:30 AM EST - 03/14/2024 12:00 PM EST Surgery Ambulatory Surgery [address] [place] [address] Jae Sterling MD [address] [place] [address] PANNICULECTOMY Ambulatory Surgery Comment on above: PANNICULECTOMY Start: 03-14-2024 End: 03-14-2024 Excision skin abd infraumbilical panniculectomy PANNICULECTOMY Abdominal pannus Loose skin Rash Dermatitis Intertrigo 03/14/2024 7:30 AM EST [facility] Start: 03-14-2024 Subsequent hospital visit by physician 03/14/2024 7:30 AM EST Hospital Encounter Ambulatory Surgery [address] [place] [address] Jae Sterling MD [address] [place] [address] Abdominal pannus [E65], Loose skin [L98.7], Rash [R21], Dermatitis [L30.9], Intertrigo [L30.4] Ambulatory Surgery Comment on above: Abdominal pannus [E65], Loose skin [L98. 7], Rash [R21], Dermatitis [L30.9], Intertrigo [L30.4] Start: 03-11-2024 End: 03-11-2024 Patient encounter procedure 03/11/2024 10:00 AM EST Office Visit [facility] Michael [address] [place] [address] Anna Nino, DIE MAKER TRIM.VOCATIONAL ADVISER [address] [place] [address] 3 week depression [facility] Comment on above: 3 week depression follow up Start: 03-10-2024 End: 03-10-2024 Patient encounter procedure 03/10/2024 11:30 AM EST Office Visit Plastic Surgery [address] [place] [address] Jae Sterling MD [address] [place], [place] [phone] pre op Plastic Surgery Comment on above: pre op Start: 03-08-2024 Patient referral [facility] Work Phone: Start: 02-03-2024 Subsequent hospital visit by physician 02/03/2024 Hospital Encounter Surgery Center [address] [place] [address] Jae Sterling MD [address] [place] [address] Abdominal pannus [E65] Surgery Center Comment on above: Abdominal pannus [E65] Start: 12-21-2023 End: 12-21-2023 Patient encounter procedure 12/21/2023 6:20 PM EST Office Visit [facility] [address] [place] [address] Maira Escamilla MD [address] [place], [place] [address] 6 week follow up [facility] Comment on above: 6 week follow up Start: 12-15-2023 End: 12-15-2023 Patient encounter procedure Mammogram Comment on above: Breast pain [N64.4] Comp-Bilat Breast pa in Start: 12-13-2023 Subsequent hospital visit by physician 12/13/2023 Hospital Encounter Surgery Center [address] [place] [address] Jae Sterling MD [address] [place] [address] Abdominal pannus [E65], Loose skin [L98.7], Rash [R21], Dermatitis [L30.9], Intertrigo [L30.4] Surgery Center Comment on above: Abdominal pannus [E65], Loose skin [L98. 7], Rash [R21], Dermatitis [L30.9], Intertrigo [L30.4] Start: 12-07-2023 End: 12-07-2023 Patient encounter procedure 12/07/2023 8:30 AM EDT Office Visit [facility] [address] [place] [address] Suleiman Panchal MD [address] [place] [address] Needs to established with [place] seen by dr Sterling 11/27/23 [facility] Comment on above: Needs to established with dashawn Panchal b chely Sterling 11/27/23 Start: 10-30-2023 End: 10-30-2023 Patient encounter procedure 10/30/2023 4:40 PM EDT Office Visit Family Medicine Michael [address] [place] [address] Maira Escamilla MD [address] [place] [address] Follow up SVT. Migraines and dizziness [facility] Comment on above: Follow up SVT. Migraines and dizziness Start: 10-30-2023 End: 01-29-2024 25-hydroxyvitamin D3 [Mass/volume] in Serum or Plasma VITAMIN D 25 HYDROXY Lab Routine History of gastric bypass Vitamin D deficiency Expected: 10/30/2023, Expires: 01/29/2024 [facility] Comment on above: Expected: 10/30/2023, Expires: Start: 10-30-2023 End: 01-29-2024 CBC W Auto Differential panel - Blood COMPLETE BLOOD COUNT AND DIFFERENTIAL Lab Routine History of gastric bypass Expected: 10/30/2023, Expires: 01/29/2024 [facility] Comment on above: Expected: 10/30/2023, Expires: Start: 10-30-2023 End: 01-29-2024 Cobalamin (Vitamin B12) [Mass/volume] in Serum or Plasma VITAMIN B12 Lab Routine History of gastric bypass Expected: 10/30/2023, Expires: 01/29/2024 [facility] Comment on above: Expected: 10/30/2023, Expires: Start: 10-30-2023 End: 01-29-2024 Comprehensive metabolic 2000 panel - Serum or Plasma COMPREHENSIVE METABOLIC PANEL Lab Routine History of gastric bypass Expected: 10/30/2023, Expires: 01/29/2024 [facility] Comment on above: Expected: 10/30/2023, Expires: Start: 10-30-2023 Depression Screening Depression Screening [facility] Comment on above: Postponed from 09/28/1997 (Declined at t his time) Start: 10-30-2023 End: 01-29-2024 Folate [Mass/volume] in Serum or Plasma FOLATE, SERUM Lab Routine History of gastric bypass Expected: 10/30/2023, Expires: 01/29/2024 [facility] Comment on above: Expected: 10/30/2023, Expires: Start: 10-30-2023 End: 01-29-2024 Iron and Iron binding capacity panel - Serum or Plasma IRON AND TIBC Lab Routine History of gastric bypass Expected: 10/30/2023, Expires: 01/29/2024 [facility] Comment on above: Expected: 10/30/2023, Expires: Start: 10-14-2023 End: 10-14-2023 Patient encounter procedure 10/14/2023 4:00 PM EDT Office Visit Family Lynette Rodriguez [address] [place] [address] Maira Escamilla MD [address] [place] [address] EEG follow up [facility] Lynette Rodriguez Comment on above: EEG follow up Start: 10-11-2023 Covid-19 Vaccine ( season) Covid-19 Vaccine () [facility] Start: 10-11-2023 Influenza vaccination [facility] Start: 10-08-2023 End: 10-08-2023 Patient encounter procedure 10/08/2023 10:00 AM EDT Office Visit Plastic Surgery [address] [place] [address] Bonny Henry APRN.VOCATIONAL ADVISER [address] [place] [address] Abdominal pannus [E65] Plastic Surgery Comment on above: Abdominal pannus [E65] Start: 10-06-2023 End: 10-06-2023 Patient encounter procedure 10/06/2023 9:00 AM EDT Office Visit Neurology [address] [place], [place] [id number] Preethi Skinner PA-C [address] [place] [address] Headache, unspecified headache type [R51.9] Neurology Comment on above: Headache, unspecified headache type [R51 .9] Start: 09-28-2023 End: 09-28-2023 Patient encounter procedure 09/28/2023 2:45 PM EDT Office Visit General Surgery [address] [place] [address] Alison Jules, DO [address] [place] [address] 5 Month Follow Up General Surgery Comment on above: 5 Month Follow Up Start: 09-28-2023 End: 12-28-2023 25-hydroxyvitamin D3 [Mass/volume] in Serum or Plasma VITAMIN D 25 HYDROXY Lab Routine Vitamin D deficiency Expected: 09/28/2023, Expires: 12/28/2023 [facility] Work Phone: Comment on above: Expected: 09/28/2023, Expires: Start: 09-28-2023 End: 12-28-2023 Parathyrin.intact [Mass/volume] in Serum or Plasma PTH INTACT Lab Routine Vitamin D deficiency Expected: 09/28/2023, Expires: 12/28/2023 [facility] Comment on above: Expected: 09/28/2023, Expires: Start: 09-25-2023 End: 09-25-2023 Patient encounter procedure 09/25/2023 11:45 AM EDT Office Visit Neurology [address] [place] [address] Headache, unspecified headache type [R51.9] Neurology Comment on above: Headache, unspecified headache type [R51 .9] Start: 09-07-2023 End: 09-07-2023 Patient encounter procedure 09/07/2023 1:30 PM EDT Office Visit [facility] [address] [facility] [place] [address] Oneyda Ortiz, OD [address] [facility] [address] [place] [address] Vision loss [H54.7] [facility] Comment on above: Vision loss [H54.7] Start: 08-25-2023 End: 08-25-2023 Patient encounter procedure 08/25/2023 2:00 PM EDT Office Visit [facility] [address] [place] [address] Maira Escamilla MD [address] [place] [address] Hospital follow up [facility] Comment on above: Hospital follow up Start: 08-24-2023 End: 08-24-2023 Patient encounter procedure [facility] Comment on above: Annual [facility] follow up. Admit scottie 08/20/23. Start: 08-03-2023 End: 08-03-2023 Patient encounter procedure 08/03/2023 3:20 PM EDT Office Visit [facility] [place] [address] [facility] [place] [address] Viviana Marie, DIE MAKER TRIM.VOCATIONAL ADVISER [address] [facility] [place] [address] Annual [facility] [place] Comment on above: Annual Start: 07-22-2023 End: 10-21-2023 25-hydroxyvitamin D3 [Mass/volume] in Serum or Plasma VITAMIN D 25 HYDROXY Lab Routine Gastric bypass status for obesity Expected: 07/22/2023, Expires: 10/21/2023 [facility] Comment on above: Expected: 07/22/2023, Expires: Start: 07-22-2023 End: 10-21-2023 CBC W Auto Differential panel - Blood COMPLETE BLOOD COUNT AND DIFFERENTIAL Lab Routine Cold intolerance Expected: 07/22/2023, Expires: 10/21/2023 [facility] Work Phone: Comment on above: Expected: 07/22/2023, Expires: Start: 07-22-2023 End: 10-21-2023 Cobalamin (Vitamin B12) [Mass/volume] in Serum or Plasma VITAMIN B12 Lab Routine Gastric bypass status for obesity Expected: 07/22/2023, Expires: 10/21/2023 [facility] Comment on above: Expected: 07/22/2023, Expires: Start: 07-22-2023 End: 10-21-2023 Comprehensive metabolic 2000 panel - Serum or Plasma COMPREHENSIVE METABOLIC PANEL Lab Routine Hyperglycemia Expected: 07/22/2023, Expires: 10/21/2023 [facility] Comment on above: Expected: 07/22/2023, Expires: Start: 07-22-2023 End: 10-21-2023 Ferritin [Mass/volume] in Serum or Plasma FERRITIN Lab Routine Gastric bypass status for obesity Expected: 07/22/2023, Expires: 10/21/2023 [facility] Comment on above: Expected: 07/22/2023, Expires: Start: 07-22-2023 End: 10-21-2023 Folate [Mass/volume] in Serum or Plasma FOLATE, SERUM Lab Routine Gastric bypass status for obesity Expected: 07/22/2023, Expires: 10/21/2023 [facility] Comment on above: Expected: 07/22/2023, Expires: Start: 07-22-2023 End: 10-21-2023 Iron and Iron binding capacity panel - Serum or Plasma IRON AND TIBC Lab Routine Gastric bypass status for obesity Expected: 07/22/2023, Expires: 10/21/2023 [facility] Comment on above: Expected: 07/22/2023, Expires: Start: 07-22-2023 End: 10-21-2023 LIPID PANEL, NONFASTING LIPID PANEL, NONFASTING Lab Routine Screening for hyperlipidemia Expected: 07/22/2023, Expires: 10/21/2023 [facility] Comment on above: Expected: 07/22/2023, Expires: Start: 07-22-2023 End: 10-21-2023 Thyrotropin [Units/volume] in Serum or Plasma THYROID STIMULATING HORMONE Lab Routine Cold intolerance Expected: 07/22/2023, Expires: 10/21/2023 [facility] Comment on above: Expected: 07/22/2023, Expires: 4 Start: 07-22-2023 End: 10-21-2023 Thyroxine (T4) free [Mass/volume] in Serum or Plasma T4 FREE/FREE THYROXINE Lab Routine Cold intolerance Expected: 07/22/2023, Expires: 10/21/2023 [facility] Comment on above: Expected: 07/22/2023, Expires: Start: 07-22-2023 End: 10-21-2023 VITAMIN B1 (THIAMINE), WHOLE BLOOD VITAMIN B1 (THIAMINE), WHOLE BLOOD Lab Routine Gastric bypass status for obesity Expected: 07/22/2023, Expires: 10/21/2023 [facility] Comment on above: Expected: 07/22/2023, Expires: Start: 07-17-2023 End: 07-17-2023 Patient encounter procedure 07/17/2023 2:20 PM EDT Office Visit [facility] [place] [address] [place], [place] [address] Anna Nino APRN.ANGLE FURNACEMAN [address] [place], [place] [id number] physical [facility] [place] Comment on above: physical Start: 06-28-2023 ANNUAL PCP TEAM CHRONIC DISEASE VISIT ANNUAL PCP TEAM CHRONIC DISEASE VISIT [facility] Start: 06-12-2023 ANNUAL PCP TEAM CHRONIC DISEASE VISIT ANNUAL PCP TEAM CHRONIC DISEASE VISIT [facility] Start: 06-06-2023 ANNUAL PCP TEAM CHRONIC DISEASE VISIT ANNUAL PCP TEAM CHRONIC DISEASE VISIT [facility] Start: 05-23-2023 ANNUAL PCP TEAM CHRONIC DISEASE VISIT ANNUAL PCP TEAM CHRONIC DISEASE VISIT [facility] Start: 03-07-2023 Mammography [facility] Start: 03-07-2023 Screening for malignant neoplasm of breast Mammogram Screening [facility] Start: 03-05-2023 [facility] Start: 02-13-2023 [facility] Start: 02-09-2023 Behavioral Health Screening Behavioral Health Screening [facility] Start: 02-09-2023 Depression Assessment Depression Assessment [facility] Start: 01-18-2023 ANNUAL PCP TEAM CHRONIC DISEASE VISIT ANNUAL PCP TEAM CHRONIC DISEASE VISIT [facility] Start: 12-10-2022 ANNUAL PCP TEAM CHRONIC DISEASE VISIT ANNUAL PCP TEAM CHRONIC DISEASE VISIT [facility] Start: 10-10-2022 Covid-19 Vaccine ( season) Covid-19 Vaccine () [facility] Start: 10-10-2022 Influenza vaccination [facility] Start: 08-06-2022 ANNUAL PCP TEAM CHRONIC DISEASE VISIT ANNUAL PCP TEAM CHRONIC DISEASE VISIT [facility] Start: 07-15-2022 ANNUAL PCP TEAM CHRONIC DISEASE VISIT ANNUAL PCP TEAM CHRONIC DISEASE VISIT [facility] Start: 06-16-2022 End: 08-16-2022 Hemoglobin A1c in Blood HGB A1C Lab Routine Hyperglycemia Expected: 06/16/2022, Expires: 08/16/2022 [facility] Work Phone: Comment on above: Expected: 06/16/2022, Expires: Start: 06-11-2022 End: 08-11-2022 25-hydroxyvitamin D3 [Mass/volume] in Serum or Plasma VITAMIN D 25 HYDROXY Lab Routine Gastric bypass status for obesity Expected: 06/11/2022, Expires: 08/11/2022 [facility] Work Phone: Comment on above: Expected: 06/11/2022, Expires: Start: 06-11-2022 End: 08-11-2022 CBC W Auto Differential panel - Blood CBC + DIFF Lab Routine Gastric bypass status for obesity Expected: 06/11/2022, Expires: 08/11/2022 [facility] Work Phone: Comment on above: Expected: 06/11/2022, Expires: Start: 06-11-2022 End: 08-11-2022 Cobalamin (Vitamin B12) [Mass/volume] in Serum or Plasma VITAMIN B12 BLOOD Lab Routine Gastric bypass status for obesity Expected: 06/11/2022, Expires: 08/11/2022 [facility] Work Phone: Comment on above: Expected: 06/11/2022, Expires: Start: 06-11-2022 End: 08-11-2022 Comprehensive metabolic 2000 panel - Serum or Plasma COMP METABOLIC PANEL Lab Routine Gastric bypass status for obesity Expected: 06/11/2022, Expires: 08/11/2022 [facility] Work Phone: Comment on above: Expected: 06/11/2022, Expires: Start: 06-11-2022 End: 08-11-2022 Folate [Mass/volume] in Serum or Plasma FOLATE SERUM Lab Routine Gastric bypass status for obesity Expected: 06/11/2022, Expires: 08/11/2022 [facility] Work Phone: Comment on above: Expected: 06/11/2022, Expires: Start: 06-11-2022 End: 08-11-2022 Iron and Iron binding capacity panel - Serum or Plasma IRON + TIBC Lab Routine Gastric bypass status for obesity Expected: 06/11/2022, Expires: 08/11/2022 [facility] Work Phone: Comment on above: Expected: 06/11/2022, Expires: Start: 06-11-2022 End: 08-11-2022 Thyrotropin [Units/volume] in Serum or Plasma TSH BLD Lab Routine Lightheaded Expected: 06/11/2022, Expires: 08/11/2022 [facility] Work Phone: Comment on above: Expected: 06/11/2022, Expires: Start: 06-11-2022 End: 08-11-2022 VITAMIN B1 (THIAMINE), WHOLE BLOOD VITAMIN B1 (THIAMINE), WHOLE BLOOD Lab Routine Gastric bypass status for obesity Expected: 06/11/2022, Expires: 08/11/2022 [facility] Work Phone: Comment on above: Expected: 06/11/2022, Expires: Start: 05-01-2022 Adult depression screening assessment DEPRESSION SCREENING [facility] Start: 04-25-2022 ANNUAL PCP TEAM CHRONIC DISEASE VISIT ANNUAL PCP TEAM CHRONIC DISEASE VISIT [facility] Start: 04-11-2022 End: 06-11-2022 25-hydroxyvitamin D3 [Mass/volume] in Serum or Plasma VITAMIN D 25 HYDROXY Lab Routine Encounter for surgical aftercare following surgery of digestive system Expected: 04/11/2022, Expires: 06/11/2022 [facility] Work Phone: Comment on above: Expected: 04/11/2022, Expires: Start: 04-11-2022 End: 06-11-2022 CBC W Auto Differential panel - Blood CBC + DIFF Lab Routine Encounter for surgical aftercare following surgery of digestive system Expected: 04/11/2022, Expires: 06/11/2022 [facility] Work Phone: Comment on above: Expected: 04/11/2022, Expires: 3 Start: 04-11-2022 End: 06-11-2022 Cobalamin (Vitamin B12) [Mass/volume] in Serum or Plasma VITAMIN B12 BLOOD Lab Routine Encounter for surgical aftercare following surgery of digestive system Expected: 04/11/2022, Expires: 06/11/2022 [facility] Work Phone: Comment on above: Expected: 04/11/2022, Expires: Start: 04-11-2022 End: 06-11-2022 Comprehensive metabolic 2000 panel - Serum or Plasma COMP METABOLIC PANEL Lab Routine Encounter for surgical aftercare following surgery of digestive system Expected: 04/11/2022, Expires: 06/11/2022 [facility] Work Phone: Comment on above: Expected: 04/11/2022, Expires: Start: 04-11-2022 End: 06-11-2022 Ferritin [Mass/volume] in Serum or Plasma FERRITIN BLD Lab Routine Encounter for surgical aftercare following surgery of digestive system Expected: 04/11/2022, Expires: 06/11/2022 [facility] Work Phone: Comment on above: Expected: 04/11/2022, Expires: Start: 04-11-2022 End: 06-11-2022 Folate [Mass/volume] in Serum or Plasma FOLATE SERUM Lab Routine Encounter for surgical aftercare following surgery of digestive system Expected: 04/11/2022, Expires: 06/11/2022 [facility] Work Phone: Comment on above: Expected: 04/11/2022, Expires: Start: 04-11-2022 End: 06-11-2022 Iron and Iron binding capacity panel - Serum or Plasma IRON + TIBC Lab Routine Encounter for surgical aftercare following surgery of digestive system Expected: 04/11/2022, Expires: 06/11/2022 [facility] Work Phone: Comment on above: Expected: 04/11/2022, Expires: 3 Start: 04-11-2022 End: 06-11-2022 Parathyrin.intact [Mass/volume] in Serum or Plasma PTH INTACT BLD Lab Routine Encounter for surgical aftercare following surgery of digestive system Expected: 04/11/2022, Expires: 06/11/2022 [facility] Work Phone: Comment on above: Expected: 04/11/2022, Expires: Start: 04-11-2022 End: 06-11-2022 VITAMIN B1 (THIAMINE), WHOLE BLOOD VITAMIN B1 (THIAMINE), WHOLE BLOOD Lab Routine Encounter for surgical aftercare following surgery of digestive system Expected: 04/11/2022, Expires: 06/11/2022 [facility] Work Phone: Comment on above: Expected: 04/11/2022, Expires: 3 Start: 02-09-2022 DEPRESSION ASSESSMENT DEPRESSION ASSESSMENT [facility] Start: 10-10-2021 Influenza vaccination INFLUENZA (#1) [facility] Start: 09-03-2021 End: 09-03-2022 CBC W Auto Differential panel - Blood CBC + DIFF Lab Routine Morbid obesity (HCC) Chronic GERD Gastroesophageal reflux disease, unspecified whether esophagitis present Preoperative examination Expected: 09/03/2021, Expires: 09/03/2022 [facility] Work Phone: Comment on above: Expected: 09/03/2021, Expires: 3 Start: 09-03-2021 End: 11-03-2021 Coagulation factor VIII activity actual/normal in Platelet poor plasma by Coagulation assay FACTOR VIII:C ASSAY Lab Routine Morbid obesity (HCC) Chronic GERD Gastroesophageal reflux disease, unspecified whether esophagitis present Preoperative examination Expected: 09/03/2021, Expires: 11/03/2021 [facility] Work Phone: Comment on above: Expected: 09/03/2021, Expires: 2 Start: 09-03-2021 End: 09-03-2022 Comprehensive metabolic 2000 panel - Serum or Plasma COMP METABOLIC PANEL Lab Routine Morbid obesity (HCC) Chronic GERD Gastroesophageal reflux disease, unspecified whether esophagitis present Preoperative examination Expected: 09/03/2021, Expires: 09/03/2022 [facility] Work Phone: Comment on above: Expected: 09/03/2021, Expires: 3 Start: 09-03-2021 End: 09-03-2022 CONFIRM BLOOD TYPE CONFIRM BLOOD TYPE Blood Bank Routine Morbid obesity (HCC) Chronic GERD Gastroesophageal reflux disease, unspecified whether esophagitis present Preoperative examination Expected: 09/03/2021, Expires: 09/03/2022 [facility] Work Phone: Comment on above: Expected: 09/03/2021, Expires: 3 Start: 09-03-2021 End: 09-03-2022 SARS-CoV-2 (COVID-19) RNA [Presence] in Respiratory specimen by KRISTINA with probe detection PRE-PROCEDURE & PRE-OPERATIVE COVID Microbiology Routine Morbid obesity (HCC) Chronic GERD Gastroesophageal reflux disease, unspecified whether esophagitis present Preoperative examination Expected: 09/03/2021, Expires: 09/03/2022 [facility] Work Phone: Comment on above: Expected: 09/03/2021, Expires: 3 Start: 09-03-2021 End: 09-03-2022 TYPE AND SCREEN,30 DAY TYPE AND SCREEN,30 DAY Blood Bank Routine Morbid obesity (HCC) Chronic GERD Gastroesophageal reflux disease, unspecified whether esophagitis present Preoperative examination Expected: 09/03/2021, Expires: 09/03/2022 [facility] Work Phone: Comment on above: Expected: 09/03/2021, Expires: 3 Start: 02-09-2021 DEPRESSION ASSESSMENT DEPRESSION ASSESSMENT [facility] Start: 09-26-2020 COVID-19 VACCINE (3 - Booster for Pfizer series) COVID-19 VACCINE (3 - Booster for Pfizer series) [facility] Start: 06-21-2020 COVID-19 VACCINE (3 - Booster for Pfizer series) COVID-19 VACCINE (3 - Booster for Pfizer series) [facility] Start: 06-21-2020 COVID-19 VACCINE (3 - Pfizer series) COVID-19 VACCINE (3 - Pfizer series) [facility] Start: 2019 Mammography MAMMOGRAM [facility] Start: 09-27-2019 End: 09-27-2019 Appointment Appointment [facility] Work Phone: Start: 09-27-2019 End: 09-27-2019 Radex spine cervical 4 or 5 views XR CERVICAL 4VWS FLEX/EXT [facility] Work Phone: Start: 06-29-2013 Urine microalbumin profile [facility] Start: 09-28-1998 Hepatitis B Vaccine (1 of 3 - 19+ 3-dose series) Hepatitis B Vaccine (1 of 3 - 19+ 3-dose series) [facility] Start: 09-28-1997 Anxiety Screening Anxiety Screening [facility] Start: 09-28-1997 Depression Screening Depression Screening [facility] Start: 09-28-1997 HIV SCREENING HIV SCREENING [facility] Start: 09-28-1997 HIV screening HIV Screening [facility] Start: 09-28-1985 PNEUMOCOCCAL (1 - PCV) PNEUMOCOCCAL (1 - PCV) [facility] Start: 09-28-1985 Pneumococcal vaccination Pneumococcal Vaccine (1 - PCV) [facility] Start: 1979 HEPATITIS B (1 of 3 - 3-dose series) HEPATITIS B (1 of 3 - 3-dose series) [facility] Start: 1979 Hepatitis B Vaccine (1 of 3 - 3-dose series) Hepatitis B Vaccine (1 of 3 - 3-dose series) [facility] COVID & INFLUENZA A/ B & RSV NAAT, ROUTINE COVID & INFLUENZA A/B & RSV NAAT, ROUTINE Microbiology Routine URI, acute 08/25/2023 2:36 PM EDT [facility] DBT Breast - bilater al screening ARUN SCREENING W TONIO Radiology Routine Encounter for gynecological examination (general) (routine) without abnormal findings Encounter for screening mammogram for breast cancer 07/21/2024 10:48 AM EDT [facility] Work Phone: End: 08-11-2025 DBT Breast - bilateral screening ARUN SCREENING W TONIO Radiology Routine Encounter for gynecological examination (general) (routine) without abnormal findings Encounter for screening mammogram for breast cancer 1 Occurrences starting 07/12/2024 until 08/11/2025 [facility] Work Phone: Comment on above: 1 Occurrences starting 07/12/2024 until 08/11/2025 End: 06-12-2023 ECG COMPLETE ECG COMPLETE ECG Routine Lightheaded 1 Occurrences starting 06/11/2022 until 06/12/2023 [facility] Work Phone: Comment on above: 1 Occurrences starting 06/11/2022 until 06/12/2023 Endometrial bx w/wo endocervix bx w/o dilat spx ENDOMETRIAL BIOPSY Procedures Routine Menorrhagia with regular cycle Ordered: 08/01/2024 [facility] Work Phone: Comment on above: Ordered: 08/01/2024 Endometrial bx w/wo endocervix bx w/o dilat spx ENDOMETRIAL BIOPSY Procedures Routine Abnormal uterine bleeding (AUB) Adenomyosis of uterus Ordered: 08/04/2024 [facility] Work Phone: Comment on above: Ordered: 08/04/2024 End: 08-24-2024 EPIL EEG ROUTINE EPIL EEG ROUTINE NEUROLOGY Routine Headache, unspecified headache type Vision loss Near syncope Confusion 1 Occurrences starting 08/25/2023 until 08/24/2024 [facility] Work Phone: Comment on above: 1 Occurrences starting 08/25/2023 until 08/24/2024 Excision excessive s kin & subq tissue thigh THIGHPLASTY Excess skin Loose skin PLASTICS A60 Excision excessive s kin & subq tissue thigh THIGHPLASTY Excess skin Loose skin [facility] Excision skin abd infraumbilical panniculectomy PANNICULECTOMY Abdominal pannus Loose skin Rash Dermatitis Intertrigo PLASTICS A60 Laps gstr rstcv px w/byp jacob-en-y limb <150 cm LAP GASTRIC BYPASS/JACOB-EN-Y Procedures Routine Morbid obesity (HCC) Chronic GERD Gastroesophageal reflux disease, unspecified whether esophagitis present Preoperative examination Ordered: 09/03/2021 [facility] Work Phone: Comment on above: Ordered: 09/03/2021 End: 11-28-2024 MG Breast - bilateral Diagnostic ARUN DIAGNOSTIC BILATERAL Radiology Routine Breast pain 1 Occurrences starting 10/30/2023 until 11/28/2024 [facility] Work Phone: Comment on above: 1 Occurrences starting 10/30/2023 until 11/28/2024 End: 05-14-2024 MG Breast Screening ARUN SCREENING Radiology Routine Encounter for screening mammogram for breast cancer 1 Occurrences starting 04/15/2023 until 05/14/2024 [facility] Work Phone: Comment on above: 1 Occurrences starting 04/15/2023 until 05/14/2024 OUTSIDE VENDOR CARDI AC OUTPATIENT EXTENDED RHYTHM RECORDING (WITHOUT TELEMETRY) OUTSIDE VENDOR CARDIAC OUTPATIENT EXTENDED RHYTHM RECORDING (WITHOUT TELEMETRY) Holter Routine Near syncope Ordered: 08/25/2023 [facility] Comment on above: Ordered: 08/25/2023 OUTSIDE VENDOR CARDI AC OUTPATIENT EXTENDED RHYTHM RECORDING (WITHOUT TELEMETRY) OUTSIDE VENDOR CARDIAC OUTPATIENT EXTENDED RHYTHM RECORDING (WITHOUT TELEMETRY) Holter Routine Palpitations Ordered: 10/05/2023 [facility] Work Phone: Comment on above: Ordered: 10/05/2023 PAP TEST PAP TEST Lab Rou js Screening for cervical cancer 07/22/2024 10:34 AM EDT [facility] Work Phone: PAP TEST PAP TEST Lab Rou js Encounter for gynecological examination (general) (routine) without abnormal findings Screening for cervical cancer Encounter for screening for human papillomavirus (HPV) 07/12/2024 10:05 AM EDT [facility] Patient Education [facility] Work Phone: Patient referral [facility] Work Phone: REFER FOR ADMIT INTERVIEW REFER FOR ADMIT INTERVIEW Procedures Routine Morbid obesity (HCC) Chronic GERD Gastroesophageal reflux disease, unspecified whether esophagitis present Preoperative examination Ordered: 09/03/2021 [facility] Work Phone: Comment on above: Ordered: 09/03/2021 End: 11-08-2022 Screening mammography bi 2-view breast inc cad ARUN SCREENING Radiology Routine Encounter for screening mammogram for breast cancer 1 Occurrences starting 10/09/2021 until 11/08/2022 [facility] Work Phone: Comment on above: 1 Occurrences starting 10/09/2021 until 11/08/2022 Therapeutic prophylactic/dx injection subq/im THER/PROPH/DIAG INJ, SC/IM Procedures Routine Need for prophylactic vaccination/inoculation against viral disease Ordered: 07/12/2024 [facility] Comment on above: Ordered: 07/12/2024 Tissue Pathology bio psy report SURGICAL PATHOLOGY Lab Routine Abnormal uterine bleeding (AUB) Adenomyosis of uterus 08/04/2024 10:11 AM EDT [facility] End: 11-28-2024 US Breast - left limited US BREAST LTD LEFT Radiology Routine Breast pain 1 Occurrences starting 10/30/2023 until 11/28/2024 [facility] Comment on above: 1 Occurrences starting 10/30/2023 until 11/28/2024 End: 11-28-2024 US Breast - right limited US BREAST LTD RIGHT Radiology Routine Breast pain 1 Occurrences starting 10/30/2023 until 11/28/2024 [facility] Comment on above: 1 Occurrences starting 10/30/2023 until 11/28/2024 [facility] Immunizations Immunization Date Immunization Notes Care Provider Lizbeth adam 07-12-2024 Human Papillomavirus 9-valent vaccine Makeda Smith APRNMarivelVOCATIONAL ADVISER Work Phone: [facility] 10-30-2023 COVID-19 vaccine, ag e 12+ yr (PFIZER-BIONTECH) Maira Escamilla MD Work Phone: [facility] 10-30-2023 influenza, seasonal, injectable Maira Escamilla MD Work Phone: [facility] 10-30-2023 influenza virus vacc ine, unspecified formulation Beulah Campa MD Work Phone: [facility] 11-07-2020 influenza, injectabl e, quadrivalent, contains preservative Alison Cetin DO Work Phone: [facility] 11-07-2020 influenza virus vacc ine, unspecified formulation Screen Wstr [facility] 04-26-2020 COVID-19 vaccine, ag e 12+ yr (PFIZER-BIONTECH - PURPLE TOP) Alison Cetin DO Work Phone: [facility] 04-05-2020 COVID-19 vaccine, ag e 12+ yr (PFIZER-BIONTECH - PURPLE TOP) Alison Cetin DO Work Phone: [facility] 11-03-2019 influenza, injectabl e, quadrivalent, contains preservative Alison Cetin DO Work Phone: [facility] 06-28-2013 TD(adult) unspecifie d formulation Maira Escamilla MD Work Phone: [facility] 06-28-2013 tetanus and diphther ia toxoids, adsorbed, preservative free, for adult use (2 Lf of tetanus toxoid and 2 Lf of diphtheria toxoid) Alison Jules DO Work Phone: [facility] Payers Date Payer Category Payer Self-pay [id number] 2023 Unknown [id number] 2020 Medicaid [place] [employer] [place] [employer] [id number] 2020-Present [phone] [address] [place] [address] Medicaid [id number] 2020 Medicaid [id number] 1979 Unknown [id number] Unknown [id number] Unknown [id number] Unknown [id number] Unknown [id number] Unknown [id number] Unknown [id number] Unknown [id number] Social History Date Type Detail Facility Start: 06-24-2021 End: 03-05-2023 Assertion Unknown if ever smoked [facility] Work Phone: Start: 07-19-2015 End: 11-27-2023 Tobacco smoking status NHIS Ex-smoker [facility] Start: 03-19-1990 End: 02-09-2014 History of tobacco use Current smoker [facility] Start: 03-19-1990 End: 02-09-2014 History of tobacco use Cigarette Smoker [facility] Start: 07-19-2015 End: 05-04-2023 Cigarettes smoked current (pack per day) - Reported 0.25 [facility] Start: 07-19-2015 End: 11-27-2023 Tobacco use and exposure Smokeless tobacco non-user [facility] Start: 05-21-2021 End: 10-30-2023 Alcohol intake Current drinker of alcohol (finding) [facility] Start: 04-23-2021 End: 01-17-2022 History SDOH Alcohol Frequency 2 [facility] Start: 04-23-2021 End: 01-17-2022 History SDOH Alcohol Std Drinks 1 [facility] Start: 03-19-2018 History SDOH Alcohol Comment rarely [facility] Start: 04-23-2021 End: 01-17-2022 History SDOH Social Connections Phone 5 [facility] Start: 04-23-2021 End: 01-17-2022 History SDOH Social Connections Meetings 3 [facility] Start: 04-23-2021 End: 01-17-2022 History SDOH Social Connections Living 8 [facility] Start: 04-23-2021 History SDOH Financial 4 [facility] Start: 06-24-2019 Education 21 [facility] Start: 1980 Sex Assigned At Female [facility] Start: 04-08-2021 End: 12-10-2021 Exposure to SARS-CoV-2 (event) Not sure [facility] Start: 12-11-2018 With Family [facility] Start: 06-14-2021 End: 06-24-2021 Exposure to SARS-CoV-2 (event) Yes [facility] Start: 09-18-2021 Tobacco Comment quit in 05/15 [facility] Start: 01-17-2022 History SDOH Alcohol Std Drinks 0 [facility] Start: 01-17-2022 End: 05-04-2023 Social connection and isolation panel [facility] Are you now , , , , never or living with a partner? Living with partner [facility] How often to you hav e a drink containing alcohol? Never [facility] How many standard drinks containing alcohol do you have on a typical day? Patient does not drink [facility] How hard is it for you to pay for the very basics like food, housing, medical care, and heating Somewhat hard [facility] Do you feel stress - tense, restless, nervous, or anxious, or unable to sleep at night because your mind is troubled all the time - these days [OSQ] Not at all [facility] (I/We) worried whether (my/our) food would run out before (I/we) got money to buy more. Never true [facility] At any time in the past 12 months, were you homeless or living in skilled nursing [including now]? No [facility] Start: 09-20-2019 Gender identity Identifies as female gender (finding) [facility] Start: 09-20-2019 Sexual orientation Heterosexual (lexi spencer) [facility] Are you now , , , , never or living with a partner? [facility] How often to you hav e a drink containing alcohol? Monthly or less [facility] How many standard drinks containing alcohol do you have on a typical day? 1 or 2 [facility] Do you feel stress - tense, restless, nervous, or anxious, or unable to sleep at night because your mind is troubled all the time - these days [OSQ] Only a little [facility] Tobacco smoking status No Smoking Status Entered [facility] How hard is it for you to pay for the very basics like food, housing, medical care, and heating Not very hard [facility] Do you feel stress - tense, restless, nervous, or anxious, or unable to sleep at night because your mind is troubled all the time - these days [OSQ] To some extent [facility] How often do you hav e 6 or more drinks on 1 occasion? Less than monthly [facility] Start: 11-27-2023 End: 09-09-2024 Alcoholic beverage intake Ex-drinker (finding) [facility] Start: 11-27-2023 Tobacco Comment Quit in 2014, does vape daily [facility] Start: 06-02-2024 End: 08-25-2024 Tobacco smoking status NHIS Smokes tobacco daily (finding) [facility] Start: 06-02-2024 Sex Female (finding) [facility] Start: 09-01-2024 Tobacco Use Tobacco Use [facility] NEGATED: Highlighted row [facility] NEGATED: Highlighted row Not [facility] Goals Date Patient Goal Desired Activity /State Functional Status Date Assessment Result Facility 08-31-2023 Functional Status Standard Safet y ID band on, Call device within reach, Bed in low position, Wheels locked, Upper/Half-Length side-rails up, Bedside Cart Locked, Safety level maintained [facility] 04-13-2014 Are you deaf, or do you have serious difficulty hearing No 04/13/2014 1:58 PM Sri Stephenson LPN No [facility] 04-13-2014 Are you blind, or do you have serious difficulty seeing, even when wearing glasses No 04/13/2014 1:58 PM Sri Stephenson LPN No [facility] 04-13-2014 Do you have serious difficulty walking or climbing stairs No 04/13/2014 1:58 PM Sri Stephenson LPN No [facility] 04-13-2014 Do you have difficul ty dressing or bathing No 04/13/2014 1:58 PM Sri Stephenson LPN No [facility] 04-13-2014 Because of a physica l, mental, or emotional condition, do you have difficulty doing errands alone such as visiting a physician's office or shopping No 04/13/2014 1:58 PM Sri Stephenson LPN No [facility] Mental Status Date Assessment Result Facility 09-01-2024 Cognitive function Voice/Name [facility] Work Phone: 08-16-2024 Cognitive function Level Of Cons ciousness Awake;Alert;Appropriate;Fol lows Commands [facility] Work Phone: 08-31-2023 Mental Status Orientation Oriented x 4 [facility] 02-13-2023 Cognitive function Level Of Cons ciousness Awake;Alert;Appropriate;Fol lows Commands [facility] Work Phone: 04-13-2014 Because of a physica l, mental, or emotional condition, do you have serious difficulty concentrating, remembering, or making decisions No 04/13/2014 1:58 PM EST Sri Li LPN No [facility] Clinical Notes 12-07-2017 to 09-09-2024 Beulah Campa MD - 09/09/2024 10:25 AM EDTTelephone Encounter - Concha Akers RN - 09/08/2024 2:22 PM EDTTelephone Encounter - Concha Akers RN - 09/08/2024 2:22 PM EDT Note Date & Type Note Facility 09-09-2024 Note HNO ID: [id number] Author: BEULAH CAMPA MD Service: ? Author Type: Physician Type: Progress Notes Filed: 09/09/2024 12:23 Note Text: DATE OF SERVICE: 09/09/2024 PROBLEM: Raul Chong presents for postop visit. SURGERY AND DATE: [facility] with bilateral salpingectomy 09/01/24 PATHOLOGY: benign, [...] discussed with the Patient or Patient's Authorized Insurance Claims Representative. As applicable, any other physician, advance practice provider, medical student, or other health professional student that will be observing or involved in the sensitive examination for educational or training purposes was discussed with the Patient or Authorized Insurance Claims Representative. The Patient or Authorized Insurance Claims Representative has agreed to proceed with the sensitive [...] 2. Postop restrictions reviewed. Beulah Campa MD [facility] 09-09-2024 History of Presen t illness Narrative DATE OF SERVICE: 09/09/2024 PROBLEM: Raul Chong presents for postop visit. SURGERY & DATE: [facility] with bilateral salpingectomy 09/01/24 PATHOLOGY: benign, [...] discussed with the Patient or Patient's Authorized Insurance Claims Representative. As applicable, any other physician, advance practice provider, medical student, or other health professional student that will be observing or involved in the sensitive examination for educational or training purposes was discussed with the Patient or Authorized Insurance Claims Representative. The Patient or Authorized Insurance Claims Representative has agreed to proceed with the sensitive [...] Beulah Campa MD documented in this encounter [facility] 09-08-2024 Telephone encount er Note Pt called [...] site. Pt voiced understanding. Concha Akers RN [facility] 09-08-2024 Miscellaneous Notes Formattin g of this [...] with the itching documented in this encounter [facility] 09-08-2024 Telephone encount er Note Incision sites do not look infected based on pictures. As the incisions heal they can have some itching and redness. It looks like she has an appointment tomorrow with Dr. Campa so recommend keeping that appointment. Recommend ER if fevers 100.4 or greater or severe pain. Agree with anti histamine to help with the itching [facility] Work Phone: 09-07-2024 Telephone encount er Note Patient notified. Declined visit for today as of now. Will try antihistamine and hydrocortisone first and call back if appt is needed. Ayaan Swift RN [facility] 09-07-2024 Miscellaneous Notes Formattin g of this [...] Ayaan Swift RN documented in this encounter [facility] 09-07-2024 Telephone encount er Note Can use [...] a look at them. Beulah Campa MD [facility] 09-07-2024 Telephone encount er Note Patient calling [...] is scheduled for 09/09/24. Ayaan Swift RN [facility] 09-05-2024 Telephone encount er Note Probably is a reaction to the glue. Baby oil or vasaline will help remove the glue. Ice to the incisions will help the itching [facility] Work Phone: 09-05-2024 Miscellaneous Notes Formattin g of this note might be different from the original. Probably is a reaction to the glue. Baby oil or vasaline will help remove the glue. Ice to the incisions will help the itching Pt's [employer] pictures were sent-see [employer] message from 09/05/24. Concha Akers RN Patient underwent total laparoscopic hysterectomy with bilateral salpingectomy at [facility] on 09/01/2024. Pt calls stating she has [...] Concha Akers RN documented in this encounter [facility] 09-05-2024 Telephone encount er Note Pt's mychart pictures were sent-see [employer] message from 09/05/24. Concha Akers RN [facility] 09-05-2024 Telephone encount er Note See phone encounter dated 09/05/2024. Concha Akers RN [facility] 09-05-2024 Miscellaneous Notes Formattin g of this note might be different from the original. See phone encounter dated 09/05/2024. Concha Akers RN documented in this encounter [facility] 09-05-2024 Telephone encount er Note Patient underwent total laparoscopic hysterectomy with bilateral salpingectomy at [facility] on 09/01/2024. Pt calls stating she has [...] her incisions/rash. Please advise. Concha Akers RN [facility] 09-01-2024 Note HNO ID: [id number] Author: BEULAH CAMPA MD Service: ? Author Type: Physician Type: Progress Notes Filed: 09/01/2024 15:40 Note Text: Patient underwent total laparoscopic hysterectomy with bilateral salpingectomy at [facility] on 09/01/2024. Pathology is pending. This was done for fibroids and abnormal uterine bleeding. Ovaries appeared normal. Patient did not have any significant adhesions. Cystoscopy was performed. Beulah Campa MD [facility] 09-01-2024 History of Presen t illness Narrative Patient underwent total laparoscopic hysterectomy with bilateral salpingectomy at [facility] on 09/01/2024. Pathology is pending. This was done for fibroids and abnormal uterine bleeding. Ovaries appeared normal. Patient did not have any significant adhesions. Cystoscopy was performed. Beulah Campa MD documented in this encounter [facility] 09-01-2024 Consult note [facility] 09-01-2024 Consult note Note Date/Time September 01, 2024 9:56am [facility] Medical Records Department [address] [place] [address] Anesthesia Postop Eval I 09/01/24 0954 MR#: [id number] Acct: [id number] Name: RAUL CHONG DIANNA Rep #:[id number] : 1980 43 From: Karen Lewis RNA PCP: Dr. Maira Escamilla MD Status:REG S DC Y Race: C Location: [place] [address]- Anesthesia: Postop Eval I Current Vital Signs [...] Yes 09/01/24955 <Electronically signed by Karen Aguilar HEAD CHAR FILTER TANK TENDER> Date _ Karen Aguilar CRNA Cosigner Signature: Date CC: ~ Signed [facility] Work Phone: 1(330) 116-146507-24-2025 Consult note [facility] Medical Records Department [address] [place] [address] Anesthesia Postop Eval I 09/01/24953 MR#: [id number] Acct: [id number] Name: RAUL CHONG DIANNA Rep #:[id number] : 1980 43 From: Karen Lewis RNA PCP: Dr. Maira Escamilla MD Status:REG S DC Y Race: C Location: [place] [address] Anesthesia: Postop Eval I Current Vital Signs [...] document: Postop Eval 1 completed: Yes 09/01/24955 HEAD CHAR FILTER TANK TENDER> Date _ Karen Aguilar HEAD CHAR FILTER TANK TENDER Cosigner Signature: Date CC: ~ Signed [facility]07-24-2025 Discharge summary Author Beulah Campa [facility] Note Date/Time September 01, 2024 7:50 am [facility] Medical Records Department [address] [place] [address] Instructions for Home/Discharge Instructions 09/01/24 0749 MR#: [id number] Acct: [id number] Name: RAUL CHONG DIANNA Rep #:[id number] : 1980 43 From: Beulah Campa MD [...] 1-2 and 6 weeks or as needed. [phone] call or senda [employer] message as needed Test Results: Test results from this visit will be discussed in further detail at your follow- up appointment, if applicable. Discharge Plan Admission Primary Reason for Your Visit: Hysterectomy Attending Provider: Beulah Campa Primary Care Provider: Maira Escamilla Instructions Print Language: Chadian Discharge Orders/Prescriptions Prescriptions: New acetaminophen [Acetaminophen Extra [...] CC: Dr. Maira Escamilla MD ~ Signed [facility] Work Phone: 1(974) 118-575607-24-2025 Procedure note [facility] Medical Records Department [address] [place] [address] Operative Report 09/01/24 0938 MR#: [id number] Acct: [id number] Name: RAUL CHONG DIANNA Rep #:[id number] : 1980 43 From: Beulah Campa MD PCP: Dr. Maira Escamilla MD Status:REG S DC Location: [facility] Problems Associated Problem List Diagnoses (1) Postoperative pain: (2) Arcuate uterus: (3) Intramural uterine fibroid: (4) Adenomyosis: (5) Abnormal uterine bleeding (AUB): (6) Dysmenorrhea: Operative Report (Standard) Operative Information Date of Procedure: 09/01/24 Pre-Operative Diagnosis: aub, fibroids, dysmenorrhea, adenomyosis, arcuate uterus Post-Operative Diagnosis: same Surgery/Procedure Performed: TLH, bilateral salpingectomy and cysto head of marketing: Yes Unit Director: Jose Crocker Tasks completed by miner assistant: Closing, Hemostasis: Electrocautery, Trocar andRetracting Type of [...] 3 and 9:00. The 2 cm Uterine area attendant placed into the cervix and the balloon inflated. The stay sutures were placed through the cup and secured down to the cervix. Once the area attendant was secured to the cervix the Beard [...] and the pneumoperitoneum was re-created. The suction atm manager was used to remove any blood and [...] Monocryl suture and skin glue by the [employer] PROFESSOR with me present. The vaginal instruments were [...] Campa MD; Dr. Maira Escamilla MD~ Signed [facility]07-24-2025 Consult note Author Belkis Monk [facility] Note Date/Time September 01, 2024 7:26 am [facility] Medical Records Department [address] [place] [address] Pre-Anesthesia Evaluation 09/01/24 0721 MR#: [id number] Acct: [id number] Name: RAUL CHONG DIANNA Rep #:[id number] : 1980 43 From: Belkis Monk HEAD CHAR FILTER TANK TENDER PCP: Dr. Maira Escamilla MD Status:REG S [...] salpingectomy, ERAS Anesthesia History Anesthesia History - assembly associate: Anesthesia History - assembly associate Hx Hospitalization Yes: 08/2023 HEART 08/25/24 11:24 [...] preop drink at 0430. PONV PONV - assembly associate: PONV - assembly associate Female Yes 08/25/24 11:24 HX of Motion [...] 09/01/24 06:09 Respiratory Assessment Respiratory Assessment - assembly associate: Respiratory Tract Infection Hx - assembly associate Hx Respiratory Tract Infection No 08/25/24 11:24 Any additional information?: No STOP Sleep Apnea STOP Sleep Apnea - assembly associate: STOP Sleep Apnea - assembly associate Hx Hypertension No 08/25/24 11:24 Hx Sleep [...] Tobacco Use History Tobacco Use History - assembly associate: Tobacco Use History - assembly associate Tobacco Use Smoking Status Current every day smoker 08/25/24 11:24 Hx Tobacco Use No 08/25/24 11:24 Years Smoking Packs Smoked per Day Smoking Cessation Date was within the last 15 years Hx Smoking Cessation Date Hx Smoking Cessation No 08/25/24 11:24 Counseling Any additional information?: Yes Tobacco Use: Vapor Hematologic Medial History Hematologic Hx - assembly associate: Hematologic Medical Hx - agricultural produce washer Hx of Blood Transfusion No 08/25/24 11:24 [...] information?: No /Reproduction History /Reproductive History - assembly associate: /Reproductive Hx- assembly associate Hx Now No 08/25/24 11:24 Gestational Age [...] mls @ 70 mls/hr 09/01/24 07:30 IV .[id number] [place] Cefazolin Sodium 2 gm/ Sodium 110 [...] CRNA Cosigner Signature: Date CC: ~ Signed [facility] Work Phone: 1(574) 517-804907-24-2025 History and physical note Author Beulah Campa [facility] Note Date/Time September 01, 2024 7:25 am [facility] Medical Records Department [address] [place] [address] History & Physical Exam 08/24/24 1238 MR#: [id number] Acct: [id number] Name: RAUL CHONG DIANNA Rep #:[id number] : 1980 43 From: Beulah Campa MD PCP: Dr. Maira Escamilla MD Status:REG S CT Location: [place] [address] History and Physical Date of Admission: 09/01/24 [...] MD; Dr. Maira Escamilla MD ~* Signed [facility] Work Phone: 1(253) 162-152807-24-2025 Discharge summary [facility] Medical Records Department [address] [place] [address] Instructions for Home/Discharge Instructions 09/01/24 0749 MR#: [id number] Acct: [id number] Name: RAUL CHONG Rep #:[id number] : 1980 43 From: Beulah Campa MD [...] 1-2 and 6 weeks or as needed. [phone] call or senda [employer] message asneeded Test Results: Test results from this visit will be discussed in further detail at your follow- up appointment, if applicable. Discharge Plan Admission Primary Reason for Your Visit: Hysterectomy Attending Provider: Beulah Campa Primary Care Provider: Maira Escamilla Instructions Print Language: Chadian Discharge Orders/Prescriptions Prescriptions: New acetaminophen [Acetaminophen Extra [...] CC: Dr. Maira Escamilla MD ~ Signed [facility]07-24-2025 Evaluation note* Diagnosis Onset Date Resolution Status Admit Date Abnormal uterine bleeding (AUB) acut e September 01, 2024 5:29am Adenomyosis acute September 01 5:29am Arcuate uterus acute September 01, 2024 5:29am Dysmenorrhea acute September 01, 5:29am Intramural uterine fibroid acute September 01, 2024 5:29am Postoperative pain acute August 102024 5:29am [facility] Work Phone: 1(528) 341-352607-24-2025 Consult note [facility] Medical Records Department [address] [place] [address] Pre-Anesthesia Evaluation 09/01/24 0721 MR#: [id number] Acct: [id number] Name: RAUL CHONG DIANNA Rep #:[id number] : 1980 43 From: Belkis Monk CRNA PCP: Dr. Maira Escamilla MD Status:REG S DC Y Race: C Location: [facility] ASA Classification* ASA Classification ASA Classification: 2 [...] salpingectomy, ERAS Anesthesia History Anesthesia History - assembly associate: Anesthesia History - assembly associate Hx Hospitalization Yes: 08/2023 HEART 08/25/24 11:24 [...] preop drink at 0430. PONV PONV - assembly associate: PONV - assembly associate Female Yes 08/25/24 11:24 HX of Motion [...] 09/01/24 06:09 Respiratory Assessment Respiratory Assessment - assembly associate: Respiratory Tract Infection Hx - assembly associate Hx Respiratory Tract Infection No 08/25/24 11:24 Any additional information?: No STOP Sleep Apnea STOP Sleep Apnea - assembly associate: STOP Sleep Apnea - assembly associate Hx Hypertension No 08/25/24 11:24 Hx Sleep [...] Tobacco Use History Tobacco Use History - assembly associate: Tobacco Use History - assembly associate Tobacco Use Smoking Status Current every day smoker 08/25/24 11:24 Hx Tobacco Use No 08/25/24 11:24 Years Smoking Packs Smoked per Day Smoking Cessation Date was within the last 15 years Hx Smoking Cessation Date Hx Smoking Cessation No 08/25/24 11:24 Counseling Any additional information?: Yes Tobacco Use: Vapor Hematologic Medial History Hematologic Hx - assembly associate: Hematologic 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 09/01/24 0726 a HEAD CHAR FILTER TANK TENDER> Date _ Belkis Monk HEAD CHAR FILTER TANK TENDER Cosigner Signature: Date CC: ~ Signed [facility]07-24-2025 History and physical note [facility] Medical Records Department [address] [place] [address] History & Physical Exam 08/24/24 1238 MR#: [id number] Acct: [id number] Name: RAUL CHONG DIANNA Rep #:[id number] : 1980 43 From: Beulah Campa MD PCP: Dr. Maira Escamilla MD Status:REG S DC Location: [place] [address]1 History and Physical Date of Admission: 09/01/24 [...] MD; Dr. Maira Escamilla MD ~* Signed [facility]07-23-2025 NoteHNO ID: [id number] Author: ROSEANN ARMSTRONG MD Service: ? Author [...] for the following reason(s): suggested by [facility] History of Present illness Narrative* Roseann Armstrong [...] suggested by H&P Procedures documented in this encounterTr[facility]07[facility]2025 [facility] Medical Records Department [address] [place] [id number] History Physical Exam 08/24/24 1238 MR#: [id number] Acct: [id number] Name: RAUL CHONG DIANNA Rep #: [id number] : 1980 43 From: Beulah Campa MD PCP: Dr. Maira Escamilla MD Status:[facility] Location: [place] [address] History and Physical Date of Admission: 09/01/24 [...] pk-yrs)?Types:Cigarettes?Start date:03/19/1990?Quit date:2014?Years since quittin.5???Smokeless tobacco:Never???Tobacco comments:?Quit [id number], does vape dailyVaping Use???Vaping status:current everyday user???Start [...] There is a left (more content not included)...[facility] 08-24-2024 NoteHNO ID: [id number] Author: BEULAH CAMPA MD Service: ? Author Type: Physician Type: Progress Notes Filed: 08/24/2024 12:38 Note Text: Raul Chong is a 43 year old female who presents for problem visit for f/u AUB. HPI: 43 YOF w/ no new c/o today. Still w AUB. OB History Gravida3 Para2 Term2 Preterm0 AB1 Living2 SAB0 IAB0 Ectopic0 Multiple0 Live Births0 Poem Writer History LMP: 08/06/2024 (Approximate), Having periods Age at Menarche: 12 Age at First : Age at Menopause: Poem Writer History Comments: Sexual Activity: Yes; Male Contraception: [...] recommended. ASSESSMENT AND PLAN: (more content not included)...[facility] 08-24-[facility] History of Present illness Narrative* Beulah Campa MD - 08/24/2024 12:32 PM EDT Raul Chong is a 43 year old female who presents for problem visit for f/u AUB. HPI: 43 YOF w/ no new c/o today. Still w AUB. OB History Gravida3 Para2 Term2 Preterm0 AB1 Living2 SAB0 IAB0 Ectopic0 Multiple0 Live Births0 Poem Writer History LMP: 08/06/2024 (Approximate), Having periods Age at Menarche: 12 Age at First : Age at Menopause: Poem Writer History Comments: Sexual Activity: Yes; Male Contraception: [...] toproceed. Decision for surgery today. Short and chcf risks of hyst and preop/postop expectations reviewed. Beulah Campa MD documented in this encounterTr[facility]07-16-2025 History and physical note * Beulah Campa [...] history, medications and allergies Beulah Campa M.D. [facility]07-16-2025 History and physical note* Beulah Campa MD [...] allergies Beulah Campa M.D. documented in this encounterTr[facility]07-08-2025 Discharge summary [facility] Medical Records Department [address] [place] [address] Emergency Department Summary 08/16/24 MR#: [id number] Acct: [id number] Name: RAUL FLEMING DIANNA Rep #:[id number] : 1980 43 From: Carlos Dockery MD [...] vaginaldischarge or pain. No dysuria or hematuria. [facility] Medical History Migraine GERD (gastroesophageal reflux disease) [...] 89.2 H Lymph % (Auto) 4.7 L [place] % (Auto) 5.4 Eos % (Auto) 0.1 [...] Clarity Clear Urine pH 6.0 Ur Specific [place] 1.010 Urine Protein 15 H Urine Glucose [...] IMPRESSION: No acute cardiopulmonary process. Reading Location: [facility] Discharge Plan Triage Chief Complaint: General Illness [...] if not improving Activity Restrictions/Additional Instructions: Continue [id number] Tylenol as needed for fever and pain. Follow-up with your primary care provider in the next 3 to 5 days. Return to the emergency department with new or worsening symptoms. Print Language: Chadian Disposition Disposition: Home, Self Care What to do if you have Problems For any increased pain, shortness of breath, bleeding, nausea or vomiting, chestpain, or any unexpected problems, contact your Primary Care Provider. Call [facility] ([phone]) or report tothe closest Emergency Room. Call 911 if necessary. 08/16/24 1134 Cosigner Signature (if applicable): CC: Dr. Maira Escamilla MD ~ Signed [facility]07-08-2025 Radiology Diagnostic study note [facility] Imaging Services [address] [place], [place] [address] Chest 1 View (Portable) MR#: [id number] Acct: [id number] Name: RAUL FLEMING DIANNA Rep #: [id number] : 1980 F 43 From: Sushma Ruiz MD PCP: Dr. Maira Escamilla MD Status: REG E R Study:Chest 1 View (Portable) Date of Exam: 08/16/24 Exam# [id number] Ordering Dr: Carlos Dockery MD EXAM: XR Chest, 1 View CLINICAL INDICATION: FEVER TECHNIQUE: Frontal view of the chest. COMPARISON: No relevant prior studies available. FINDINGS: LUNGS AND PLEURAL SPACES: Unremarkable. No consolidation. No pneumothorax. HEART: Unremarkable. No cardiomegaly. MEDIASTINUM: Unremarkable. Normal mediastinal contour. BONES/JOINTS: Unremarkable. No acute fracture. RAD/Chest 1 View (Portable) IMPRESSION: No acute cardiopulmonary process. Reading [facility] CC: Dr. Carlos Dockery MD; Dr. Maira Escamilla MD ~ Digital Sales Director: Signed [facility]06-29-2025 Telephone encounter Note* Telephone Encounter - Makeda Horta RN - 08/07/2024 4:43 PM EDT Patient calling back because she has not received a call from the credit card control clerk provider. Conferenced patient to [place] in the [place] answering service to have credit card control clerk provider paged again [facility]06-29-2025 Miscellaneous Notes* Telephone Encounter - Makeda Horta RN - 08/07/2024 4:43 PM EDT Patient calling back because she has not received a call from the credit card control clerk provider. Conferenced patient to [place] in the [place] answering service to have credit card control clerk provider paged again * Telephone Encounter - Makeda Horta RN - 08/07/2024 3:18 PM EDT Patient calling regarding CERTIFIED MEDICAL BILLER. She had a uterine biopsy 08/04 and had some cramping and spotting after. She was fine Thursday. Yesterday she went to [place] and developed bright red bleeding and began passing clots intermittently. Today she is having more bleeding and clots. Contacted the [place] [facility] [ ] who took patient's information and will text page provider credit card control clerk for Makeda Smith.FATEMEH WRIGHT. I told patient that if while she was waiting to hear from the provider and if her condition worsensor she is concerned, she should call 911 or go to the ER. Patient voices understanding. documented in this encounterTr[facility]06-29-2025 Telephone encounter Note * Telephone Encounter - Makeda Horta RN - 08/07/2024 3:18 PM EDT Patient calling regarding CERTIFIED MEDICAL BILLER. She had a uterine biopsy 08/04 and had some cramping and spotting after. She was fine Thursday. Yesterday she went to [place] and developed bright red bleeding and began passing clots intermittently. Today she is having more bleeding and clots. Contacted the [employer] [ ] who took patient's information and will text page provider credit card control clerk for Makeda Smith.FATEMEH WRIGHT. I told patient that if while she was waiting to hear from the provider and if her condition worsensor she is concerned, she should call 911 or go to the ER. Patient voices understanding. [facility]06-26-2025 History of Present illness Narrative* Makeda Smith APRN.FATEMEH - 08/04/2024 9:30 AM EDT Patient declined advanced practice rn. Silke is a 43 year old Female [...] patient. Makeda Smith APRN.FATEMEH documented in this encounterTrinity Health [facility]06-26-2025 NoteHNO ID: [id number] Author: MAKEDA SMITH APRN.CNP Service: ? Author Type: Nurse Practitioner Type: Progress Notes Filed: 08/04/2024 10:13 Note Text: Patient declined advanced practice rn. Silke is a 43 year old Female [...] material given to the patient. Makeda Smith APRN.CNPWadsworth-Rittman Hospital06-26-2025 Instructions* Patient Instructions* Makeda Smith APRN.CNP - [...] contact your doctor's office. documented in this encounterTrinity Health [facility]06-23-2025 NoteHNO ID: [id number] Author: BEULAH CAMPA MD Service: ? Author Type: Physician Type: Progress Notes Filed: 08/01/2024 12:07 Note Text: Obstetrics and Gynecology [place] CHEMICAL RECOVERY OPERATOR Visit Subjective Recording using ambient AI software for draft documentation of the visit was discussed with the patient/authorized environmental marketing representative; all questions welcomed and answered. 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 - Has a supportive boyfriend who is a dispatcher tow truck. - Drinks coffee but reports drinking water slowly and in small amounts. - Takes vitamins daily and reports eating well. - Has two children, both delivered via , and has had a tubal ligation. HISTORY: OB History Gravida3 Para2 Term2 Preterm0 AB1 Living2 SAB0 IAB0 Ectopic0 Multiple0 Live Births0 Poem Writer History LMP: 07/10/2024 (Exact Date), Having periods Age at Menarche: 12 Age at First : Age at Menopause: Poem Writer History Comments: Sexual Activity: Yes; Male Contraception: [...] Take by mouth. MUL (more content not included)...[facility]06[facility] History of Present illness Narrative* Beulah Campa MD - 08/01/2024 12:02 PM EDT Images from the original note were not included. Obstetrics and Gynecology [place] CHEMICAL RECOVERY OPERATOR Visit Subjective Recording using [employer] software for draft documentation of the visit was discussed with the patient/authorized environmental marketing representative; all questions welcomed and answered. 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 - Has a supportive boyfriend who is a dispatcher tow truck. - Drinks coffee but reports drinking water slowly and in small amounts. - Takes vitamins daily and reports eating well. - Has two children, both delivered via , and has had a tubal ligation. HISTORY: OB History Gravida3 Para2 Term2 Preterm0 AB1 Living2 SAB0 IAB0 Ectopic0 Multiple0 Live Births0 Poem Writer History LMP: 07/10/2024 (Exact Date), Having periods Age at Menarche: 12 Age at First : Age at Menopause: Poem Writer History Comments: Sexual Activity: Yes; Male Contraception: [...] discussed with the Patient or Patient's Authorized Insurance Claims Representative. As applicable, any other physician, advance practice provider, medical student, or other health professional student that will be observing or involved in the sensitive examination for educational or training purposes was discussed with the Patient or Authorized Insurance Claims Representative. The Patient or Authorized Insurance Claims Representative has agreed to proceed with the sensitive [...] external genitalia normal, normal Bartholin's glands, urethra, [place]'s glands, no vulvar lesions, no cervical lesions, [...] Hysterectomy discussed and we reviewed short and chcf risks/complications w/ hysterectomy and postop recovery/limitations and expectations - Patient expressed reluctance towards IUD and preference for hysterectomy; agreed to proceed with hysterectomy after endometrial biopsy. - Scheduled endometrial biopsy to rule out any underlying pathology; can be performed by or Makeda, depending on availability. - Will coordinate with wirer to arrange hysterectomy before patient returns to work in mid-September. would be tlh, bilateral salpingectomy and cysto Beulah Campa MD documented in this encounterTrinity [facility]06-23-2025 Telephone encounter Note * Telephone Encounter - Alexia Brian RN - 08/01/2024 9:16 AM EDT Case message sent to salesperson surgical appliances for an update [facility]06-23-2025 Miscellaneous Notes* Telephone Encounter - Alexia Brian RN - 08/01/2024 9:16 AM EDT Case message sent to salesperson surgical appliances for an update * Telephone Encounter - Rachna Lynn - 08/01/2024 9:07 AM EDT Patient calling for an update on status of authorization for procedure. Please call to advise. * Telephone Encounter - Ladi Tierney - 06/29/2024 1:27 PM EDT Patient requesting return call to advise on insurance auth for surgery. See below. Please return call to [phone] * Telephone Encounter - Jessica Desir - 06/21/2024 12:39 PM EDT Patient calling to see if prior authorization was sent to insurance company for her surgery with Dr. Sterling. She can be reached at [phone]. documented in this encounterTrinity Health [facility]06-23-2025 Telephone encounter Note * Telephone Encounter - Rachna Lynn - 08/01/2024 9:07 AM EDT Patient calling for an update on status of authorization for procedure. Please call to advise. [facility]06-17-2025 Telephone encounter Note* Telephone Encounter - Concha Akers RN - 07/26/2024 1:25 PM EDT Pt notified and Pt scheduled with RR on 08/01/24. Concha Akers RN [facility]06-17-2025 Miscellaneous Notes* Telephone Encounter - Concha Akers [...] discuss? Laurel Vizcarra RN documented in this encounterTrinity Health [facility]06-17-2025 Telephone encounter Note * Telephone Encounter - Makeda Smith APRN.CNP - 07/26/2024 1:12 PM EDT Yes I just spoke with someone a little while ago and I had not had a chance to make the phone note on it yet. Dr. Henderson recommended her following up with one of them to discuss options and make medical decision from there. Makeda Smith APRN.CNP [facility] Work Phone: [phone] Telephone encounter Note* Telephone Encounter - Laurel Vizcarra RN - 07/26/2024 12:34 PM EDT Patient called to inquire if RM spoke to one of the physicians regarding a hysterectomy for her. Does she just need an appointment to discuss? Laurel Vizcarra RN [facility]06-13-2025 NoteHNO ID: [id number] Author: MAKEDA SMITH APRN.CNP Service: ? Author Type: Nurse Practitioner Type: Progress Notes Filed: 07/22/2024 10:27 Note Text: Raul Chong is a 43 year old female who presents for problem visit redo pap SENSITIVE EXAM: The sensitive examination was discussed with the Patient or Patient's Authorized Insurance Claims Representative. As applicable, any other physician, advance practice provider, medical student, or other health professional student that will be observing or involved in the sensitive examination for educational or training purposes was discussed with the Patient or Authorized Insurance Claims Representative. The Patient or Authorized Insurance Claims Representative has agreed to proceed with the sensitive examination. (Sensitive examination includes inspection and/or palpation of the breasts, pelvis, prostate and anorectal regions). EXAM: BP 102/64 Wt 178 lb (80.7kg) LMP 07/10/2024 GENERAL: pleasant, female in no apparent distress HEENT: Normocephalic, atraumatic, mucus membranes moist, and no lesions CHEST: Normal inspiratory effort PELVIC: external genitalia normal, normal Bartholin's glands, urethra, [place]'s glands, no vulvar lesions, no cervical lesions, physiologic discharge present, normal appearing perineal body and perianal region BIMANUAL: deferred NEURO: alert and oriented x3,exam grossly non-focal EXTREMITIES: normal ASSESSMENT AND PLAN: Assessment AND Plan Screening for cervical cancer Repeat Pap due to excess amount of blood and prior Pap. Makeda Smith APRN.[facility]06-13-2025 History of Present illness Narrative* Makeda Smith APRN.[facility] - 07/22/2024 10:06 AM EDT Raul Chong is a 43 year old female who presents for problem visit redo pap SENSITIVE EXAM: The sensitive examination was discussed with the Patient or Patient's Authorized Insurance Claims Representative. As applicable, any other physician, advance practice provider, medical student, or other health professional student that will be observing or involved in the sensitive examination for educational or training purposes was discussed with the Patient or Authorized Insurance Claims Representative. The Patient or Authorized Insurance Claims Representative has agreed to proceed with the sensitive examination. (Sensitive examination includes inspection and/or palpation of the breasts, pelvis, prostate and anorectal regions). EXAM: BP 102/64 Wt 178 lb (80.7kg) LMP 07/10/2024 GENERAL: pleasant, female in no apparent distress HEENT: Normocephalic, atraumatic, mucus membranes moist, and no lesions CHEST: Normal inspiratory effort PELVIC: external genitalia normal, normal Bartholin's glands, urethra, [place]'s glands, no vulvar lesions, no cervical lesions, physiologic discharge present, normal appearing perineal body and perianal region BIMANUAL: deferred NEURO: alert and oriented x3,exam grossly non-focal EXTREMITIES: normal ASSESSMENT AND PLAN: Assessment & Plan Screening for cervical cancer Repeat Pap due to excess amount of blood and prior Pap. Makeda Smith APRN.CNP documented in this encounterTrinity Health [facility]06-12-2025 Note Indication Evaluation of abnormal uterine bleeding: [...] Briseno RDMS Read By: Yelitza Rider M.D.MATERNAL [id number] NoteHNO ID: [id number] Author: YELITZA RIDER MD Service: ? Author Type: Physician Type: Progress Notes Filed: 07/21/2024 13:46 Note Text: The patient presents for requested ultrasound. Full report available in the Imaging tab in [employer]. [facility] History of Present illness Narrative* Yelitza Rider MD - 07/21/2024 1:24 PM EDT The patient presents for requested ultrasound. Full report available in the Imaging tab in [employer]. Yelitza Rider MD documented in this encounterTrinity Health [facility]06-12-2025 History of Present illness Narrative* Vidhya Vazquez [...] PATIENT PRESENTS WITH AN IMPLANTABLE OR ATTACHED PICKUP DRIVER: No RADIOLOGY DEPARTMENT: Mammography PERIPHERAL IV DATA: Not applicable SIGNED BY: Анна Nagel July 21, 2024 11:38 AM documented in this encounterTrinity Health [facility]06-12-2025 NoteHNO ID: [id number] Author: VIDHYA VAZQUEZ Mammo Tech Service: ? Author Type: Physical Therapy Teacher Type: Progress Notes Filed: 07/21/2024 11:38 Note [...] PATIENT PRESENTS WITH AN IMPLANTABLE OR ATTACHED PICKUP DRIVER: No RADIOLOGY DEPARTMENT: Mammography PERIPHERAL IV DATA: Not applicable SIGNED BY: Анна Nagel July 21, 2024 11:38 [facility]06-10-2025 Telephone encounter Note* Telephone Encounter - Ayaan Swift RN - 07/19/2024 10:59 AM EDT Patient notified. She is upset, she really wanted to get this vaccine. Asking if one vaccine will help prevent HPV at all even a small percentage? Can sent [employer] message with response. Ayaan Swift RN [facility]06-10-2025 Miscellaneous Notes* Telephone Encounter - Ayaan Swift RN - 07/19/2024 10:59 AM EDT Patient notified. She is upset, she really wanted to get this vaccine. Asking if one vaccine will help prevent HPV at all even a small percentage? Can sent [employer] message with response. Ayaan Swift RN * [...] advise. Ayaan Swift RN documented in this encounterTrinity Health [facility]06-10-2025 Telephone encounter Note * Telephone Encounter - Makeda Smith APRN.CNP - 07/19/2024 10:23 AM EDT Please let the patient know that she can take Benadryl, along with ibuprofen and icing the area. Based on her reaction I would not recommend completing the series then. Makeda Smith APRN.CNP [facility] Work Phone: [phone] Telephone encounter Note* Telephone Encounter - Ayaan [...] the series? Please advise. Ayaan Swift RN [facility]06-09-2025 NoteHNO ID: [id number] Author: MAIRA ESCAMILLA MD Service: ? Author Type: Physician Type: Progress Notes Filed: 07/18/2024 15:33 Note Text: Patient never checked in for appt.[facility]06-09-[facility] History of Present illness Narrative* Maira Escamilla MD - 07/18/2024 3:24 PM EDT Patient never checked in for appt. documented in this encounterTrinity Health [facility]06-05-2025 Instructions* Patient Instructions* Bonny Henry APRN.CNP - [...] need for further procedures documented in this encounterTrinity Health [facility]06-05-2025 NoteHNO ID: [id number] Author: BRIAN GARCIA LPN Service: ? Author Type: LICENSED NURSE Type: Progress Notes Filed: 07/14/2024 13:44 Note Text: DATE OF PHOTOS: 07/14/2024 Body Part: Abdomen and Leg(s) Brian Garcia LPN July 14, 2024 1:43 [facility]06-05-2025 History of Present illness Narrative* Brian Garcia LPN - 07/14/2024 1:42 PM EDT DATE OF PHOTOS: 07/14/2024 Body Part: Abdomen and Leg(s) Brian Garcia LPN July 14, 2024 1:43 PM documented in this encounterTrinity Health [facility]06-05-2025 History of Present illness Narrative* Bonny Henry APRN.VOCATIONAL ADVISER - 07/14/2024 1:00 PM EDT Plastic Surgery [...] APRN.CNP July 14, 2024 documented in this encounterTrinity Health [facility]06-05-2025 NoteHNO ID: [id number] Author: BONNY HENRY APRN.CNP Service: ? Author [...] time was spent for (more content not included)...[facility] 07-12-20[facility] Instructions* Patient Instructions* Makeda Smith APRN.CNP [...] glands, joint and muscle pain, weakness and Guillain-Berthoud syndrome. documented in this encounterTrinity Health [facility]06-03-2025 NoteHNO ID: [id number] Author: MAKEDA SMITH APRN.CNP Service: ? Author Type: Nurse Practitioner Type: Progress Notes Filed: 07/12/2024 10:12 Note Text: Patient declined advanced practice rnMarivel Edouard is a 43 year old who [...] Living2 SAB0 IAB0 Ectopic0 Multiple0 Live Births0 Poem Writer History LMP: 07/10/2024 (Exact Date), Having periods Age at Menarche: 12 Age at First : Age at Menopause: Poem Writer History Comments: Sexual Activity: Yes; Male Contraception: [...] discussed with the Patient or Patient's Authorized Insurance Claims Representative. As applicable, any other physician, advance practice provider, medical student, or other health professional student that will be observing or involved in the sensitive examination for educational or training purposes was discussed with the Patient or Authorized Insurance Claims Representative. The Patient or Authorized Insurance Claims Representative has agreed to proceed with the sensitive [...] external genitalia normal, normal Bartholin's glands, urethra, [place]'s glands, no vulvar lesions, no cervical lesions, [...] regular cycle - IC (more content not included)...[facility]06-03-2025 History of Present illness Narrative* Makeda Smith APRN.VOCATIONAL ADVISER - 07/12/2024 9:06 AM EDT Patient declined advanced practice rn. Silke is a 43 year old who [...] Living2 SAB0 IAB0 Ectopic0 Multiple0 Live Births0 Poem Writer History LMP: 07/10/2024 (Exact Date), Having periods Age at Menarche: 12 Age at First : Age at Menopause: Poem Writer History Comments: Sexual Activity: Yes; Male Contraception: [...] discussed with the Patient or Patient's Authorized Insurance Claims Representative. As applicable, any other physician, advance practice provider, medical student, or other health professional student that will be observing or involved in the sensitive examination for educational or training purposes was discussed with the Patient or Authorized Insurance Claims Representative. The Patient or Authorized Insurance Claims Representative has agreed to proceed with the sensitive [...] external genitalia normal, normal Bartholin's glands, urethra, [place]'s glands, no vulvar lesions, no cervical lesions, [...] injection. Makeda Smith APRN.FATEMEH documented in this encounterTr[facility] Telephone encounter Note * Telephone Encounter - Ladi Tierney - 06/29/2024 1:27 PM EDT Patient requesting return call to advise on insurance auth for surgery. See below. Please return call to [phone] [facility]05-13-2025 Telephone encounter Note* Telephone Encounter - Jessica Desir - 06/21/2024 12:39 PM EDT Patient calling to see if prior authorization was sent to insurance company for her surgery with Dr. Sterling. She can be reached at [phone]. [facility]05-01-2025 Instructions* Patient Instructions* Bonny Henry APRN.CNP - [...] questions or concerns during business hours call [phone] or after hours (after 5 pm or on the weekend) call [phone] and ask for the plastic surgery resident / fellow credit card control clerk for further instructions. If you have increasing [...] breathe or difficulty breathing documented in this encounterTr[facility]05-01-2025 History of Present illness Narrative* Bonny Henry [...] questions or concerns during business hours call [phone] or after hours (after 5 pm or on the weekend) call [phone] and ask for the plastic surgery resident / fellow credit card control clerk for further instructions. If you have increasing [...] APRN.FATEMEH June 09, 2024 documented in this encounterTrinity [facility]05-01-2025 NoteHNO ID: [id number] Author: BONNY HENRY APRN.VOCATIONAL ADVISER Service: ? Author Type: Nurse Practitioner Type: [...] questions or concerns during business hours call [phone] or after hours (after 5 pm or on the weekend) call [phone] and ask for the plastic surgery resident / fellow credit card control clerk for further instructions. If you have increasing [...] in 3 months Bonny Henry APRN.FATEMEH [facility] NoteHNO ID: [id number] Author: BONNY HENRY APRN.FATEMEH Service: ? Author [...] questions or concerns during business hours call [phone] or after hours (after 5 pm or on the weekend) call [phone] and ask for the plastic surgery resident / fellow credit card control clerk for further instructions. If you have increasing [...] to clinic in 1 week Bonny Henry APRN.VOCATIONAL ADVISER June 03, [id number] Discharge summary [facility] Medical Records Department [address] [place] [address] Emergency Department Summary 06/02/24 MR#: [id number] Acct: [id number] Name: RAUL FLEMING DIANNA Rep #:[id number] : 1980 43 From: Carlos Dockery MD PCP: Dr. Maira Escamilla MD Status:REG E R Location: ED HPI History of Present Illness Chief Complaint: Wound Narrative Narrative: 43-year-old female states that she had plastic surgery on her pannus in March, approximately 3 months ago. This was performed by Dr. Sterling with the [facility] out of [place]. Since then, she has had areas of [...] and infections, she spiked a fever today. [facility] Medical History (Updated 06/02/24 @ 16:09 by [...] high fever, new or worseningsymptoms. Print Language: Chadian Disposition Disposition: Home, Self Care What to do if you have Problems For any increased pain, shortness of breath, bleeding, nausea or vomiting, chestpain, or any unexpected problems, contact your Primary Care Provider. Call [facility] ([phone]) or report tothe closest Emergency Room. Call 911 if necessary. 06/02/24 1627 Cosigner Signature (if applicable): CC: Dr. Maira Escamilla MD ~ Signed [facility]04-24-2025 Discharge summary Author Carlos Dockery [facility] Note Date/Time June 02, 2024 4:2 7pm [facility] Medical Records Department [address] [place] [address] Emergency Department Summary 06/02/24 MR#: [id number] Acct: [id number] Name: RAUL FLEMING Rep #:[id number] : 1980 43 From: Carlos Dockery MD PCP: Dr. Maira Escamilla MD Status:REG E R Location: ED HPI History of Present Illness Chief Complaint: Wound Narrative Narrative: 43-year-old female states that she had plastic surgery on her pannus in March, approximately 3 months ago. This was performed by Dr. Sterling with the [facility] out of [place]. Since then, she has had areas of [...] and infections, she spiked a fever today. [facility] Medical History (Updated 06/02/24 @ 16:09 by [...] fever, new or worsening symptoms. Print Language: Chadian Disposition Disposition: Home, Self Care What to do if you have Problems For any increased pain, shortness of breath, bleeding, nausea or vomiting, chestpain, or any unexpected problems, contact your Primary Care Provider. Call [facility] ([phone]) or report to the closest Emergency Room. Call 911 if necessary. 06/02/24 8736 <Electronically signed by Carlos Dockery MD> Cosigner Signature (if applicable): CC: Dr. Maira Escamilla MD ~ Signed [facility] Work Phone: 1(497) 930-858004-18-2025 NoteHNO ID: [id number] Author: BONNY HENRY APRN.FATEMEH Service: ? Author [...] increased drainage from the site. Bonny Henry APRN.FATEMHE May 27[facility]04[facility]18[facility] History of Present illness Narrative* Bonny [...] APRN.CNP May 27, 2024 documented in this encounterTr[facility]04-17-2025 Telephone encounter Note * Telephone Encounter - Alexia Brian RN - 05/26/2024 10:31 AM EDT Responded to patient photos via [employer] [facility]04-17-2025 Miscellaneous Notes* Telephone Encounter - Alexia Brian RN - 05/26/2024 10:31 AM EDT Responded to patient photos via [employer] * Telephone Encounter - Tomeka Vidal - 05/26/2024 10:11 AM EDT Patient states abscess is back in the same spot has yellow discharge red and swollen please advise.Advised to send pictures documented in this encounterTr[facility]04-17-2025 Telephone encounter Note * Telephone Encounter - Tomeka Vidal - 05/26/2024 10:11 AM EDT Patient states abscess is back in the same spot has yellow discharge red and swollen please advise.Advised to send pictures [facility]04-03-2025 Instructions* Patient Instructions* Bonny Henry APRN.FATEMEH - [...] 4 weeks after surgery. 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 Do not [...] silicone ingredient Encouraged patient to communicate through [facility] for all non-urgent questions or concerns. If experiencing wound complications or have any questions or concerns during business hours call [phone] or after hours (after 5 pm or on the weekend) call [phone] and ask for the plastic surgery resident / fellow credit card control clerk for further instructions. If you have increasing [...] breathe or difficulty breathing documented in this encounterTr[facility]04-03-2025 History of Present illness Narrative* Bonny Henry [...] 4 weeks after surgery. 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 Do not [...] questions or concerns during business hours call [phone] or after hours (after 5 pm or on the weekend) call [phone] and ask for the plastic surgery resident / fellow credit card control clerk for further instructions. If you have increasing [...] APRN.FATEMEH May 12, 2024 documented in this encounterTr[facility]04-03-2025 NoteHNO ID: [id number] Author: BONNY HENRY APRN.FATEMEH Service: ? Author [...] 4 weeks after surgery. 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 Do not [...] silicone ingredient Encouraged patient to [facility] for all [facility]-urgent questions or concerns. If experiencing wound complications or have any questions or concerns during business hours call [phone] or after hours (after (more content not included)...[facility]03-23-2025 Telephone encounter Note* Telephone Encounter - [...] understanding. Leeroy Groves MD Plastic Surgery Resident [phone] After 6 pm and on-weekends, please page [phone] (on-call plastic surgery) [facility]03-23-2025 Miscellaneous Notes* Telephone Encounter - Leeroy Groves [...] understanding. Leeroy Groves MD Plastic Surgery Resident [phone] After 6 pm and on-weekends, please page [phone] (on-call plastic surgery) documented in this encounterTr[facility]03-23-2025 Telephone encounter Note * Telephone Encounter - Adela Mejía RN - 05/01/2024 12:03 PM EDT Patient calling regarding concern for infection at incision site. Conferenced to [facility] steam conditioner operator, Yanique, to speak with provider credit card control clerk for Dr. Jae Sterling (Plastic Surgery). GO TO THE EMERGENCY ROOM OR CALL 911 IF: * You develop any new symptoms * Your condition worsens * You are concerned or anxious about your condition for any other reason. If you have any questions, you can call Nurse it service continuity supervisor back. [facility]03-23-2025 Miscellaneous Notes* Telephone Encounter - Adela Mejía RN - 05/01/2024 12:03 PM EDT Patient calling regarding concern for infection at incision site. Conferenced to [facility] steam conditioner operator, Yanique, to speak with provider credit card control clerk for Dr. Jae Sterling (Plastic Surgery). GO TO THE EMERGENCY ROOM OR CALL 911 IF: * You develop any new symptoms * Your condition worsens * You are concerned or anxious about your condition for any other reason. If you have any questions, you can call Nurse it service continuity supervisor back. documented in this encounterTr[facility]03-10-2025 Telephone encounter Note * Telephone Encounter - [...] Garrett MA April 18, 2024 2:00 PM [facility]03-10-2025 Miscellaneous Notes* Telephone Encounter - Diane Garrett [...] 18, 2024 2:00 PM documented in this encounterTr[facility]03-06-2025 Note* Addendum Note - Bonny Henry APRN.CNP - 04/14/2024 12:13 PM ESTAddended by: BONNY HENRY on: 04/14/2024 12:13 PM Modules accepted: Orders [facility]03-06-2025 Miscellaneous Notes* Addendum Note - Bonny Henry APRN.CNP - 04/14/2024 12:13 PM ESTAddended by: BONNY HERNY on: 04/14/2024 12:13 PM Modules accepted: Orders documented in this encounterTr[facility]03-06-2025 Instructions* Patient Instructions* Bonny Henry APRN.CNP - [...] 4 weeks after surgery. 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 Do not [...] for pain) Encouraged [facility] to [facility] for all non-[facility]ent questions or concerns. If experiencing wound complications or have any questions or concerns during business hours call [phone] or after hours (after 5 pm or on the weekend) call [phone] and ask for the plastic surgery resident / fellow credit card control clerk for further instructions. If you have increasing [...] breathe or difficulty breathing documented in this encounterTr[facility]03-06-2025 History of Present illness Narrative* Bonny Henry [...] 4 weeks after surgery. 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 Do not [...] questions or concerns during business hours call [phone] or after hours (after 5 pm or on the weekend) call [phone] and ask for the plastic surgery resident / fellow credit card control clerk for further instructions. If you have increasing [...] APRN.FATEMEH April 14, 2024 documented in this encounterTr[facility]03-06-2025 NoteHNO ID: [id number] Author: BONNY HENRY APRN.CNP Service: ? Author [...] 4 weeks after surgery. 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 Do not [...] silicone ingredient Encouraged [facility] to [facility] for all non-urgent questions or concerns. If experiencing wound complications or hav (more content not included)... [facility]02-26-2025 Telephone encounter Note* Telephone Encounter - [...] further questions or concerns at this time. [facility]02-26-2025 Miscellaneous Notes* Telephone Encounter - Alexia Brian [...] a nurse. Please return call to advise [phone] documented in this encounterTr[facility]02-[facility]-2025 Telephone encounter Note * Telephone Encounter - Ladi Tierney - 04/05/2024 2:54 PM EST Patient had surgery on 03/14. Today patient was laying on her side when she started feeling very hotand got the shakes. Patient concerned this could be related to her surgery. Patient requesting to speak with Dr Sterling or a nurse. Please return call to advise [phone] [facility]02-20-2025 Instructions* Patient Instructions* Bonny Henry APRN.VOCATIONAL ADVISER - 03/31/2024 2:00 PM EST -you may [...] 4 weeks after surgery. 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 Do not perform [...] for pain) Encouraged [facility] to [facility] for all non-urgent questions or concerns. If experiencing wound complications or have any questions or concerns during business hours call [phone] or after hours (after 5 pm or on the weekend) call [phone] and ask for the plastic surgery resident / fellow credit card control clerk for further instructions. If you have increasing [...] breathe or difficulty breathing documented in this encounterTr[facility]02-20-2025 History of Present illness Narrative* Bonny Henry [...] 4 weeks after surgery. 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 Do not perform [...] for pain) Encouraged [facility] to [facility] for all non-urgent questions or concerns. If experiencing wound complications or have any questions or concerns during business hours call [phone] or after hours (after 5 pm or on the weekend) call [phone] and ask for the plastic surgery resident / fellow credit card control clerk for further instructions. If you have increasing [...] APRN.CNP March 31, 2024 documented in this encounterTr[facility]02-20-2025 NoteHNO ID: [id number] Author: BONNY HENRY APRN.CNP Service: ? Author [...] 4 weeks after surgery. 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 Do not [...] with ibuprofen for (more content not included)... [facility]02-17-2025 Telephone encounter Note* Telephone Encounter - [...] Familia Cruz MD Plastic Surgery Resident (PGY-2) [id number] After 6 pm and on-weekends, please page [phone] (on-call plastic surgery) [facility] Work Phone: 1(467) 404-234202-17-2025 Miscellaneous Notes* Telephone Encounter - Familia Cruz [...] Familia Cruz MD Plastic Surgery Resident (PGY-2) [id number] After 6 pm and on-weekends, please page [phone] (on-call plastic surgery) documented in this encounterTr[facility]02-17-2025 Telephone encounter Note * Telephone Encounter - Danielle Mandujano RN - 03/28/2024 6:30 PM EST Patient calling regarding puddle from drain site:. I conf her to Joleen the steam conditioner operator to page Plastic surgeon credit card control clerk for Dr. Javi Sterling. [facility]02-17-2025 Miscellaneous Notes* Telephone Encounter - Danielle Mandujano RN - 03/28/2024 6:30 PM EST Patient calling regarding puddle from drain site:. I conf her to Joleen the steam conditioner operator to page Plastic surgeon credit card control clerk for Dr. Javi Sterling. documented in this encounterTr[facility]02-17-2025 Telephone encounter Note * Telephone Encounter - [...] [place] MA March 28, 2024 8:37 AM [facility]02-17-2025 Miscellaneous Notes* Telephone Encounter - Madelin [place] [...] 28, 2024 8:37 AM documented in this encounterTrinity [facility]02-15-2025 Instructions* Patient Instructions* Starr Ram APRN.CNP - 03/26/2024 10:59 AM EST Stretches Flexeril as ordered, do not use with ultram Tylenol as ordered Follow up with pcp Report immediately to ER for foot drop, bowel or bladder loss, numbness or tingling of legs/feet orany new or worsening concerns if unable to get into PMD documented in this encounterTrinity [facility]02-15-2025 NoteHNO ID: [id number] Author: STARR RAM APRN.CNP Service: ? Author Type: Nurse Practitioner Type: Progress Notes Filed: 03/26/2024 11:01 Note Text: Subjective The history is provided by the patient. No technical services librarian was used. RAJINDER Chong is a 43 [...] have confirmed and edited as necessary, the [facility] Review of Systems Constitutional: [...] detail warranting prompt ER evaluation. Starr Ram APRN.FATEMEHWadsworth[facility]02-15-2025 History of Present illness Narrative* Starr Ram APRN.FATEMEH - 03/26/2024 10:41 AM EST Images from the original note were not included. Subjective The history is provided by the patient. No technical services librarian was used. RAJINDER Chong is a 43 [...] have confirmed and edited as necessary, the [facility] Review of Systems Constitutional: [...] evaluation. Starr Ram APRN.CNP documented in this encounterTr[facility]02-13-2025 Instructions* Patient Instructions* Bonny Henry APRN.CNP - [...] 4 weeks after surgery. 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 Do not perform [...] questions or concerns during business hours call [phone] or after hours (after 5 pm or on the weekend) call [phone] and ask for the plastic surgery resident / fellow credit card control clerk for further instructions. If you have increasing [...] breathe or difficulty breathing documented in this encounterTr[facility]02-13-2025 History of Present illness Narrative* Bonny Henry [...] 4 weeks after surgery. 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 Do not perform [...] for pain) Encouraged [facility] to [facility] for all non-urgent questions or concerns. If experiencing wound complications or have any questions or concerns during business hours call [phone] or after hours (after 5 pm or on the weekend) call [phone] and ask for the plastic surgery resident / fellow credit card control clerk for further instructions. If you have increasing [...] APRN.CNP March 24, 2024 documented in this encounterTr[facility]02-13-2025 NoteHNO ID: [id number] Author: BONNY HENRY APRN.FATEMEH Service: ? Author [...] 4 weeks after surgery. 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 Do not [...] BID until healed - (more content not included)...[facility]02-10-2025 Note* Addendum Note - Alexia Brian RN - 03/21/2024 1:14 PM ESTAddended by: ALEXIA BRIAN on: 03/21/2024 01:14 PM Modules accepted: Orders [facility]02-10-2025 Miscellaneous Notes* Addendum Note - Alexia Brian [...] Please call to advise. documented in this encounterTr[facility]02-10-2025 Telephone encounter Note * Telephone Encounter - [...] further questions or concerns at this time [facility]02-10-2025 Telephone encounter Note* Telephone Encounter - Alexia [...] further questions or concerns at this time [facility]02-10-2025 Telephone encounter Note* Telephone Encounter - Kishore [...] this was normal. Please call to advise. [facility]02-03-2025 NoteHNO ID: [id number] Author: LIBIA STEEN SRNA Service: ? Author [...] March 14, 2024 TIME: 8:25 AM CSN: [id number]01-30-[facility] History of Present illness Narrative* Jae [...] influenza A 02/28/2024 seen in [facility] and prescribed Tamiflu. HISTORIES PAST MEDICAL HISTORY [...] Past Histories independently gathered by the clinical pit crew support worker and the remaining scribed note accurately describes [...] 17, 2024 2:13 PM documented in this encounterTrinity Health [facility]01-30-2025 NoteHNO ID: [id number] Author: JAE STERLING MD Service: ? Author [...] influenza A 02/28/2024 seen in [facility] and prescribed Tamiflu. HISTORIES PAST MEDICAL HISTORY [...] Ruiz I agree with (more content not included)...[facility]01-28-2025 Evaluation note* Diagnosis Onset Date Resolution Status Admit Date Cervical radiculopathy acute Valdemar wilcox 2024 10:31am Degenerative disc disease, cervical noneactive March 08 10:31am [facility] Work Phone: 1(700) 776-373801-22-2025 Telephone encounter Note* Telephone Encounter - Mary Moura APRN.CNP - 03/02/2024 9:46 AM EST FYI. Pt was seen for PACC and cleared but pt recently positive with influenza A 02/28/2024 seen in [facility] and prescribed Tamiflu. Pt is scheduled for Panniculectomy 03/14/2024 in [place]. Please advise if okay to proceed? [facility]01-22-2025 Miscellaneous Notes* Telephone Encounter - Mary Moura APRN.CNP - 03/02/2024 9:46 AM EST FYI. Pt was seen for PACC and cleared but pt recently positive with influenza A 02/28/2024 seen in [facility] and prescribed Tamiflu. Pt is scheduled for Panniculectomy 03/14/2024 in [place]. Please advise if okay to proceed? documented in this encounterTr[facility]01-20-2025 Telephone encounter Note * Telephone Encounter - Liz Kim RN - 02/29/2024 4:22 PM EST Jenny from [email or web address] calling and states received Nebulizer supplies prescription but nodiagnosis code on it. Can we please resend script with diagnosis codes? New order pended with dx codes. Can be escripted. [facility]01-20-2025 Miscellaneous Notes* Telephone Encounter - Liz Kim RN - 02/29/2024 4:22 PM EST Jenny from [facility] [employer] calling and states received Nebulizer supplies prescription but nodiagnosis code on it. Can we please resend script with diagnosis codes? New order pended with dx codes. Can be escripted. documented in this encounterTr[facility]-2025 NoteHNO ID: [id number] Author: OCTAVIANO AYOUB PA Service: ? Author Type: Physician Boarder Machine Type: Progress Notes Filed: 02/28/2024 15:02 Note Text: This note was created using [employer]. Subjective Raul Chong is a 43 [...] that would lula (more content not included)... [facility]01-19-2025 History of Present illness Narrative* Octaviano Ayoub PA - 02/28/2024 3:01 PM EST This note was created using [employer]. Subjective Raul Chong is a 43 [...] ER evaluation. FRANCISCO Lal documented in this encounterTr[facility]01-[facility]25 Telephone encounter Note * Telephone Encounter - [...] 30 days. Protocols used: Influenza (Flu) - Kziguzpn-LZMTW-ZQ [facility]01-19-2025 Miscellaneous Notes* Telephone Encounter - Bobbi Fitzgerald [...] 30 days. Protocols used: Influenza (Flu) - Awsrcfzg-GSAHE-WT documented in this encounterTrinity [facility]01-16-2025 Telephone encounter Note * Telephone Encounter - [...] to reach back out to this SW. [facility]01-16-2025 Miscellaneous Notes* Telephone Encounter - Rola Umanzor [...] discuss housing resource needs. documented in this encounterTr[facility]01-14-2025 Telephone encounter Note * Telephone Encounter - Rola Umanzor MSW - 02/23/2024 11:09 AM EST Sw left message for patient to return Sw call to discuss housing resource needs. [facility]01-13-2025 Instructions* Patient Instructions* Anna Nino APRN.CNP - 02/22/2024 12:55 PM EST - PRIMARY CARE SOCIAL WORK CONSULT - SERTRALINE 50 MG TABLET daily - HYDROXYZINE HCL 25 MG TABLET 3 x day as needed for anxiety - Give suicide hotline number documented in this encounterTr[facility]01-13-2025 NoteHNO ID: [id number] Author: ANNA NINO APRN.CNP Service: ? Author [...] as needed for worsening/no improvement. Anna Nino APRN.FATEMEHWadsworth[facility]01-13-2025 History of Present illness Narrative* Anna [...] improvement. Anna Nino APRN.FATEMEH documented in this encounterTrinity [facility]01-13-2025 Telephone encounter Note * Telephone Encounter - [...] and having some anxiety. Marietta Harman LPN [facility]01-13-2025 Miscellaneous Notes* Telephone Encounter - Marietta Harman [...] anxiety. Marietta Harman LPN documented in this encounterTrinity [facility]01-06-2025 Instructions* Patient Instructions* Mary Moura APRN.CNP - 02/15/2024 3:57 PM EST Images from the original note were not included. [facility] PATIENT PREOPERATIVE INSTRUCTIONS No ref. provider found has scheduled you for your procedure at this [facility]: [facility]: [phone] --[id number] [place] [address]. Please read below carefully for your personalized [...] office. If you are currently using a meiq-mlk-cauk injectable or oral medication for diabetes or [...] Procedures: - YOU MUST HAVE A RESPONSIBLE SUPERINTENDENT FISH HATCHERY TAKE YOU HOME. A FOREMAN SHIPPING DEPARTMENT OR MEDICAL LEAD CANNOT BE MADE A RESPONSIBLE SUPERINTENDENT FISH HATCHERY. - We recommend that a responsible person [...] Advance Directive, please fax a copy to [phone] or email to for it to be [...] day. Mary Moura APRN.CNP documented in this encounterTrinity [facility]01-06-2025 History and physical note * Mary Moura APRN.CNP - 02/15/2024 3:55 PM EST Images from the original note were not included. [place] [facility] HISTORY [...] large neck Non-male patient STOP-Bang Score: 0 [id number] Score: Age: <65 Sex: female CHF history: No Hypertension history: No Stroke/TIA/thromboembolism history: No Vascular disease history: No Diabetes history: No NFR2VP8-MGXs Score: 1 ARISCAT Score: Age: <=50 Preoperative [...] wear certain clothes and big enough to cloth covered helmet puller the loose skin. She canonly wear stretch clothes Work: Yes, she has to do heavy lifting and the loose skin is in the way and hurts her back and getsa pinched nerve Trouble with clothes fitting properly: Yes History of Abdominal Hernia: No History of Abdominal Surgery: Yes, gallbladder surgery, gastric bypass and t-vmrvigsl-9 OB HISTORY: Para: 2 Plan for future pregnancies: No Recurrent Miscarriages (>3): no REVIEW OF SYSTEMS: General: No weight loss, malaise or fevers. Neurological: Positive for: headaches (on rx and as needed). Negative for: cerebral palsy, ANGLE FURNACEMAN tumor, dementia, impaired sensorium, multiple sclerosis, paraplegia, [...] congenital heart defect, DVT/PE, hyperlipidemia, hypertension, recent NJ, murmur/valvular heart disease, PTCA, PVD, open heart surgery and valve surgery. GI: +hx gastric bypass. No history of GI symptoms or problems. No history of esophageal varices, recent ascites, or ETOH greater than 2 drinks per day. : No history of dysuria, frequency or incontinence, stones or chronic kidney disease. No difficulty urinating, nocturia > 1 time per night or hematuria. CHEMICAL RECOVERY OPERATOR: Negative for abnormal vaginal bleeding, abnormal vaginal [...] or any previous visit (from the past 18616 hour(s)). Instructions Given to Patient: Instructions located in the after visit summary. Patient given verbal and written preop instructions and voices comprehension and compliance. SIGNATURE: Mary Moura APRN.CNP PATIENT NAME: Raul Chong DATE: February 15, 2024 TIME: 3:55 PM PAGER/CONTACT #: [facility]01-[facility] History and physical note* Mary Moura APRN.CNP [...] large neck Non-male patient STOP-Bang Score: 0 [id number] Score: Age: <65 Sex: female CHF history: No Hypertension history: No Stroke/TIA/thromboembolism history: No Vascular disease history: No Diabetes history: No [id number] Score: 1 ARISCAT Score: Age: <=50 Preoperative [...] Imm Admin: COVID-19 vaccine, age 12+ yr (2nd Watch-[employer]) 04/26/2020 Imm Admin: COVID-19 original vaccine, age 12+ yr, monovalent (2nd Watch- [employer] - PURPLE TOP) Only the first 3 history entries have been loaded, but more history exists. CHIEF COMPLAINT: Pre-op exam HPI: Raul Chong is a 43 year old seen for PAC due to scheduled above surgery because of loose skin. 10/08/23, Bonny Henry, VOCATIONAL ADVISER CC: Consult for Panniculectomy Pt reports loose [...] wear certain clothes and big enough to cloth covered helmet puller the loose skin. She canonly wear stretch clothes Work: Yes, she has to do heavy lifting and the loose skin is in the way and hurts her back and getsa pinched nerve Trouble with clothes fitting properly: Yes History of Abdominal Hernia: No History of Abdominal Surgery: Yes, gallbladder surgery, gastric bypass and n-ulyeiege-7 OB HISTORY: Para: 2 Plan for future pregnancies: No Recurrent Miscarriages (>3): no REVIEW OF SYSTEMS: General: No weight loss, malaise or fevers. Neurological: Positive for: headaches (on rx and as needed). Negative for: cerebral palsy, ANGLE FURNACEMAN tumor, dementia, impaired sensorium, multiple sclerosis, paraplegia, [...] congenital heart defect, DVT/PE, hyperlipidemia, hypertension, recent NJ, murmur/valvular heart disease, PTCA, PVD, open heart surgery and valve surgery. GI: +hx gastric bypass. No history of GI symptoms or problems. No history of esophageal varices, recent ascites, or ETOH greater than 2 drinks per day. : No history of dysuria, frequency or incontinence, stones or chronic kidney disease. No difficulty urinating, nocturia > 1 time per night or hematuria. CHEMICAL RECOVERY OPERATOR: Negative for abnormal vaginal bleeding, abnormal vaginal [...] or any previous visit (from the past 07404 hour(s)). Instructions Given to Patient: Instructions located in the after visit summary. Patient given verbal and written preop instructions and voices comprehension and compliance. SIGNATURE: Mary Moura APRN.CNP PATIENT NAME: Raul Chong DATE: February 15, 2024 TIME: 3:55 PM PAGER/CONTACT #: documented in this encounterTrinity [facility]01-06-2025 Telephone encounter Note * Telephone Encounter - Norma Mcnamara LPN - 02/15/2024 3:47 PM EST Patient arrived at 3:45 and was seen. Norma Mcnamara LPN [facility]01-06-2025 Miscellaneous Notes* Telephone Encounter - Norma Mcnamara [...] coming. Norma Mcnamara LPN documented in this encounterTrinity [facility]01-06-2025 Telephone encounter Note * Telephone Encounter - Norma Mcnamara LPN - 02/15/2024 3:40 PM EST Patient was scheduled for in person PACC appt at 3:20pm today. Patient did not check in for appt, called patient at [facility] to see if they were planning on coming. Norma Mcnamara LPN [facility]10-18-2024 History of Present illness Narrative* Jae Sterling [...] discussed with the Patient or Patient's Authorized Insurance Claims Representative. Asapplicable, any other physician, advance practice provider, medical student, or other health professional student that will be observing or involved in the sensitive examination for educational or training purposes was discussed with the Patient or Authorized Insurance Claims Representative. The Patient or Authorized Insurance Claims Representative has agreed to proceed with the sensitive [...] Past Histories independently gathered by the clinical pit crew support worker and the remaining scribed note accurately describes [...] 27, 2023 3:43 PM documented in this encounterTrinity Health [facility]10-18-2024 NoteHNO ID: [id number] Author: JAE STERLING MD Service: ? Author [...] discussed with the Patient or Patient's Authorized Insurance Claims Representative. As applicable, any other physician, advance practice provider, medical student, or other health professional student that will be observing or involved in the sensitive examination for educational or training purposes was discussed with the Patient or Authorized Insurance Claims Representative. The Patient or Authorized Insurance Claims Representative has agreed to proceed with the sensitive examination. (Sensitive examination includes inspection and/or palpation of the breasts, pelvis, prostate and anorectal regions) Assessment: Raul Chong is a 43 year old female who presents for pre op of panniculectomy. Patient is a candidate for a panniculectomy Plan: Will refer patient to Dr. aPnchal who will be able to schedule in a more timely fashion as patient does not want to wait un (more content not included)... [id number] Telephone encounter Note* Telephone Encounter - Jessica Desir - 11/23/2023 12:35 PM EDT Patient calling back as she has not heard anything from the Plastic Surgery Department since she sent the insurance authorization code. She needs to get her surgery scheduled in either November or December, if possible due to insurance. She can be reached at [phone]. [facility]10-14-2024 Miscellaneous Notes* Telephone Encounter - Jessica Desir - 11/23/2023 12:35 PM EDT Patient calling back as she has not heard anything from the Plastic Surgery Department since she sent the insurance authorization code. She needs to get her surgery scheduled in either November or December, if possible due to insurance. She can be reached at [phone]. * Telephone Encounter - Rachna Lynn - 11/17/2023 3:00 PM EDT Patient calling with Authorization Code for surgery: [employer] [id number] documented in this encounterTrinity [facility]10-08-2024 Telephone encounter Note * Telephone Encounter - Rachna Lynn - 11/17/2023 3:00 PM EDT Patient calling with Authorization Code for surgery: [employer] [id number] [facility]09-20-2024 NoteHNO ID: [id number] Author: MAIRA ESCAMILLA MD Service: ? Author [...] Reason for visit: Chest pain/headaches. Which facility: [facility] Date of visit: 08/19-08/21/23 Diagnosis: Acute [...] scar tissue removal and (more content not included)...[facility]09-20-2024 History of Present illness Narrative* Maira [...] Reason for visit: Chest pain/headaches. Which facility: [facility] Date of visit: 08/19-08/21/23 Diagnosis: Acute [...] vaccination - ICD9: V05.9, ICD10: Z23 - 2nd Watch-[employer] COVID-19 VACCINE AGE 12+ YR - INFLUENZA [...] HYDROXY Maira Escamilla MD documented in this encounterTrinity [facility]09-18-2024 Telephone encounter Note * Telephone Encounter - Krystian Ward MA - 10/28/2023 4:51 PM EDT Patient informed. Krystian Ward MA [facility]09-18-2024 Miscellaneous Notes* Telephone Encounter - Krystian Ward MA - 10/28/2023 4:51 PM EDT Patient informed. Krystian Ward MA * Telephone Encounter - Maiar Escamilla MD - 10/28/2023 4:18 PM EDT [...] to discuss how doing documented in this encounterTrinity [facility]09-18-2024 Telephone encounter Note * Telephone Encounter - Maira Escamilla MD - 10/28/2023 4:18 PM EDT Ok if worsens before hand, eR [facility]09-18-2024 Telephone encounter Note* Telephone Encounter - Krystian [...] with you on Thursday10/30/23. Krystian Ward MA [facility]09-18-2024 Telephone encounter Note* Telephone Encounter - Maira Escamilla MD - 10/28/2023 3:43 PM EDT Monitor shows very small amount of svt which is where the upper chambers beat early. Not a dangerous rhythm however can cause palpitations etc. Follow up to discuss how doing [facility]08-29-2024 NoteHNO ID: [id number] Author: ALY CARRENO LPN Service: ? Author Type: LICENSED NURSE Type: Progress Notes Filed: 10/08/2023 10:20 Note Text: DATE OF PHOTOS: 10/08/2023 Body Part: Abdomen and Leg(s) Aly Carreno LPN October 08, 2023 10:20 [facility]08-29-2024 History of Present illness Narrative* Aly Carreno LPN - 10/08/2023 10:20 AM EDT DATE OF PHOTOS: 10/08/2023 Body Part: Abdomen and Leg(s) Aly Carreno LPN October 08, 2023 10:20 AM documented in this encounterTrinity [facility]08-29-2024 History of Present illness Narrative* Bonny Henry APRN.VOCATIONAL ADVISER - 10/08/2023 10:00 AM EDT Plastic Surgery [...] wear certain clothes and big enough to cloth covered helmet puller the loose skin. She canonly wear stretch clothes Work: Yes, she has to do heavy lifting and the loose skin is in the way and hurts her back and getsa pinched nerve Trouble with clothes fitting properly: Yes History of Abdominal Hernia: No History of Abdominal Surgery: Yes, gallbladder surgery, gastric bypass and v-utvhawhy-0 OB HISTORY: Para: 2 Plan for future [...] APRN.CNP October 08, 2023 documented in this encounterTrinity [facility]08-29-2024 NoteHNO ID: [id number] Author: BONNY HENRY APRN.CNP Service: ? Author [...] wear certain clothes and big enough to cloth covered helmet puller the loose skin. She can only wear stretch clothes Work: Yes, she has to do heavy lifting and the loose skin is in the way and hurts her back and gets a pinched nerve Trouble with clothes fitting properly: Yes History of Abdominal Hernia: No History of Abdominal Surgery: Yes, gallbladder surgery, gastric bypass and q-yznfsowj-6 OB HISTORY: Para: 2 Plan for future [...] Comments Prednisone Mental Statu (more content not included)...[facility] 10-06-2023 Instructions* Patient Instructions* Preethi Skinner [...] Feverfew: Feverfew is a common garden herb [place] and popular in [place] [...] pepperoni, Pickled egan Pods of broad vega (Chadian beans, Norwegian pea pods, Wallisian (dahlia) beans, anthony and navy beans Ripe [...] too muchlight. These can be obtained at [employer] or [employer]: see list above. 2. Limit use of acute treatments (lhut-sxm-mghoawh medications, triptans, etc.) to no more than [...] and quiet environment. Relax and reduce stress. Vrhosqt[employer]Kaanm is a free [place] that can instruct you on some simple relaxtionand breathing techniques. Http://[employer]Smarp. is a free website that provides teaching [...] and will be handling your phone calls, [employer] Messages and inquiries, if any. Unless explicitly told otherwise at the time of your office visit, your study results and ensuing treatment plans will be released via [employer] and discussed during your follow-up appointment. [employer]: Please ask the schedulers to give you an activation code. The main way of communication isby [employer] rather than phone lines, so if you have not signed up, please do so. [employer] is also theway that you can review your labs and testing. We are not able to contact everyone to tell them results are normal. If you do not hear back from us regarding testing you have had, it should be considered normal or within normal range. If you have any questions about the results, you are free to message us. [employer] is meant for simple questions regarding medications, possible side effects, or other simplestraight forward questions in limited sentences, rather than multiple paragraphs of discussion. [employer] is not meant for, or efficient for [...] do not comment on most testing on [employer] in a message or commentary unless there [...] you with this process. documented in this encounterTrinity [facility]08-27-2024 NoteHNO ID: [id number] Author: PREETHI SKINNER PA-C Service: ? Author Type: Physician Boarder Machine Type: Progress Notes Filed: 10/06/2023 10:03 Note Text: Neurology Outpatient Clinic Date: October 06, 2023 Patient Name: Raul Chong Referring physician: Maira Escamilla [address] [facility] [address] Consult requested for headaches by Dr. Escamilla. Recommendations will be communicated via shared medical record or US mail. Primary physician: Maira Escamilla [address] [place] [address] Reason for Evaluation: Headaches Subjective HPI: Patient [...] Negative for significant abdomi (more content not included)...[facility]08-27-2024 History of Present illness Narrative* Preethi Skinner PA-C - 10/06/2023 9:13 AM EDT Images from the original note were not included. Neurology Outpatient Clinic Date: October 06, 2023 Patient Name: Raul Chong Referring physician: Maira Ecsamilla [address] [facility] [address] Consult requested for headaches by Dr. Escamilla. Recommendations will be communicated via shared medical record or US mail. Primary physician: Maira [place] [address] Reason for Evaluation: Headaches Subjective HPI: Patient [...] Negative Coordination: finger-to- nose-finger intact bilaterally and ybqd-rp-xfom intact bilaterally. Gait: Patient's gait is normal, [...] which included preparing to see the patient, pckw-nf-vpjr patient care, completing clinical documentation, obtaining and/or reviewing separately obtained history, performing a medically appropriate examination, and counseling and educating the patient/family/caregiver. Preethi Skinner PA-C [facility] Neurology This document has been created with the use of voice recognition technology. It may contain inaccuracies: (e.g. misspellings, inaccurate syntax or word sense) that have escaped review. documented in this encounterTrinity Health [facility]08-26-2024 Telephone encounter Note * Telephone Encounter - Concha Moreno LPN - 10/05/2023 3:01 PM EDT Patient notified and order faxed. [facility]08-26-2024 Miscellaneous Notes* Telephone Encounter - Concha Moreno [...] diagnosis difficult to ascertain. documented in this encounterTrinity Health [facility]08-26-2024 Telephone encounter Note * Telephone Encounter - Maira Escamilla MD - 10/05/2023 12:46 PM EDT We can see if they will cover a second one [facility]08-26-2024 Telephone encounter Note* Telephone Encounter - Concha Moreno LPN - 10/05/2023 12:35 PM EDT Monitor had fallen off week after she had on. Having palpitations on and off still. She said that when she called [facility] they had told her that PCP may want to order a new monitor. [facility]08-26-2024 Telephone encounter Note* Telephone Encounter - Maira [...] activity making definitive diagnosis difficult to ascertain. [facility]08-26-2024 NoteHNO ID: [id number] Author: JOAQUINA BACA MD Service: ? Author [...] rare (<1.0%), and no VE Triplets were present.[facility]08-19-2024 Telephone encounter Note* Telephone Encounter - Anna Nino APRN.CNP - 09/28/2023 3:51 PM EDT The following approved medication requests have been transmitted electronically. Requested Prescriptions Pending Prescriptions Disp Refills pregabalin (LYRICA) 75 mg capsule 30 capsule 5 Sig: Take 1 capsule by mouth once daily for 180 days. Anna Nino APRN.CNP [facility]08-19-2024 Miscellaneous Notes* Telephone Encounter - Anna Nino [...] NOV-10/14/23 Liz Strickland LPN documented in this encounterTrinity Health [facility]08-19-2024 NoteHNO ID: [id number] Author: ALISON JULES, DO Service: ? Author [...] lbs (05/21/21) Total weight loss: 199 lbs [facility] weight: 76.8 kg (169 lb 5 oz) [...] citrate but does get a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 [facility]09-17-2022 Miscellaneous Notes* Telephone Encounter - Akshat Pinto [...] urine, and lightheadedness. Akshat Pinto MD PhD [facility] Clinical Fellow Advanced Laparoscopic Surgery and Flexible Surgical Endoscopy [facility] [address] [place] [address] [email or web address] documented in this encounterTrinity Health [facility]09-14-2022 Nurse Note* Savana Shultz RN - 10/23/2021 1:35 PM EDT Raul Fleming Reason for therapy: Dehydration, and Banana bag Ordering Physician: Dr. Schmitz Supervising/Billing Physician: Dr. DERRICK Morgan Medications administered: [id number] x1, and banana bag 1000cc x 1 (See MAR and flowsheets for rates) Start: 1015AM / Stop: [id number] Infusion tolerated well: Yes IV: See avatar [...] No need for follow-up documented in this encounterTrinity Health [facility]09-13-2022 Miscellaneous Notes* Telephone Encounter - Gabrielle Bran RN - 10/22/2021 1:50 PM EDT I cannot add patient to the infusion schedule for tomorrow 10/23 at 10am without the medication orders. Can you please place the orders? Thanks, Gabrielle Bran RN documented in this encounterTrinity Health [facility]09-13-2022 Miscellaneous Notes* Telephone Encounter - Alexa Moura - 10/22/2021 10:15 AM EDT [facility] can not see this patient as it is out of territory, we do not travel to [place]. Alexa Moura * Telephone Encounter - Alexa Moura - 10/22/2021 10:13 AM EDT Transitional Care Program - Intake Template - for interface Date Referral Received: 10/22/2021 Referral Source: CC Physician office TC Program: UD - 4C Hospital Discharge Date: n/a TCM RN Name: n/a Date of : 1980 Age: [age] year old PCP: Maira Escamilla MD Visit address from [facility]: [address] [place] [address] Name of Physician who gave the order: DIONICIO FAITH Other services ordered: None Primary Insurance Company: Payor: [employer] / Plan: [employer] MEDICAID / ProductType: Medicaid / Primary Insurance ID Number: [id number] documented in this encounterTrinity Health [facility]09-12-2022 Miscellaneous Notes* Telephone Encounter - Lianne Welch [...] fever,pain, nausea, vomit. 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 Confirmed 10/23/21 513[address] appt. documented in this encounterTrinity Health [facility]09-09-2022 History of Present illness Narrative* Rossy Baker, [...] loss (average 6-9% at 1 month) Blog: [email or web address] The Bariatric & Metabolic [place] at [facility] has 2 virtual support group meetings: This is the Webex link with meeting number that will be used for all of the THURSDAY virtual support groups this year, on the Thursday of each month 5:30-6:30PM Join from the meeting link [email or web address] Join by meeting number Meeting number (access code): [phone] Meeting password: [email or web address] The schedule with dates, times, topics, and facilitators can be found here: [email or web address] This is the [employer]zi [employer] link with meeting number that will be used for the Open Discussion (Food for Thought) support group on the Thursday of each month 5:30-6:30PM Join from the meeting link [email or web address] Join by meeting number Meeting number (access code): [phone] Meeting password: [email or web address] Hope to see you there! Nutrition Monitoring & Evaluation: Advance diet to phase 3 by next visit Criteria: patient recall Need for Follow up: 1 month post op Appointment Start Time: 9:30 AM Appointment End Time: 10:30 AM Time Spent on Consult: 60 minutes - Group Rossy Baker MS,RD,CSOWM,LD documented in this encounterTrinity Health [facility]08-31-2022 History of Present illness Narrative* Dionicio Faith [...] (GERD) Morbid obesity due to excess calories ([facility]) SVT (supraventricular tachycardia) ([facility]) Palpitations Chest pain SOB (shortness of breath) Cervical radiculopathy Class 3 severe obesity due to excess calories without serious comorbidity with body mass index (BMI) of 50.0 to 59.9 in adult ([facility]) Mild intermittent asthma Gastroesophageal reflux [...] & Bariatric Surgery Fellow Bariatric & Metabolic [place] [facility] documented in this encounterTrinity Health [facility]08-31-2022 Miscellaneous Notes* Telephone Encounter - Lianne Welch RN - 10/09/2021 2:14 PM EDT Patient reports redness and itching present around all lap sites on abdomen. May use cold compress and hydrocortisone cream around glue sites. Confirmed appt with surgical team this afternoon. documented in this encounterTrinity Health System [facility] Center08-26-2022 Miscellaneous Notes* Telephone Encounter - Lianne Welch RN - 10/04/2021 3:46 PM EDT RN called [facility] spoke with Pharmacist, Paige Sanchez provided order for Lovenox written by Lexi Benajmin MD. RN called patient and provided update. Patient verbalized understanding to notify BMI if unable to start Lovenox today. Confirmed has BMI help card numbers to call if has any further needs. documented in this encounterTrinity Health [facility] Center08-26-2022 Miscellaneous Notes* Telephone Encounter - Lianne Welch [...] MD to resend electronic script to [facility] so patient may begin Lovenox today. Patient verbalized understanding. CPAP USE: N/A Remind patient of post op appt. Reminded patient of how to reach [facility] or their surgeons office. Patient reminded to seek medical attention if they develop chest pain, a sudden onset of shortness of breath or persistent pain in the calf of their legs - BEST TO ALWAYS present to [facility] hospital where you had your surgery Patient verbalized understanding of all advice and instructions given. COVID-19 Symptoms: none . Lianne Welch RN documented in this encounterTrinity Health [facility]08-26-2022 History of Present illness Narrative* Esther Ya RN - 10/04/2021 9:30 AM EDT TCM Home Visit Referral Source of Stratification: [facility] Admission Status: Discharged Readmission Risk Score: [...] PROGRAM Provider Action/FYI: TCM Initial Hospital Discharge [facility] on 10-03-21. PCP Dr Escamilla - saida leyva owe f/u appoitment RD Olivia/Gen Surg 10-18-21 Patient states she is doing okay, just really sore Denies chest pain, sob, fever or chill Lap sites [employer] CONSULTANT, skin intact, keep clean and dry, no S/S of infection Rates pain as 4 while still, increases to 6 with activity Taking Oxycodone for pain, Tolerating fluids well, going to try a protein shake today Encouraged patient to Review: Discharge Instructions for Bariatric Surgery Reviewed medications - on phone with Pharmacy to find out about her Lovenox SUMMARY: Pt discharged from [facility] on 10-03-21. Admitted for: Obesity, LAPAROSCOPIC GASTRIC RESTRICTIVE SURG W/ BYPASS & JACOB-EN-Y Contact made with patient: Yes Hi my name is Esther Ya RN and I am calling from the [facility] on behalf of your PCP,Maira Escamilla MD [...] like to speak with a social work sales floor team member to help give you support for any [...] I will send your request to a technical trainer who will contact and assist you with [...] the way if possible). Esther Ya RN Securities Attorney documented in this encounterTrinity Health [facility]08-16-2022 Miscellaneous Notes* Telephone Encounter - Lianne Welch [...] the 64 ounces fluids. documented in this encounterTrinity Health [facility]08-10-2022 Instructions* Patient Instructions* Mary Moura APRN.VOCATIONAL ADVISER - 09/18/2021 11:42 AM EDT PATIENT PREOPERATIVE INSTRUCTIONS Naresh Schmitz MD has scheduled you for your procedure at this surgery center: [facility] [place] Scheduling Office: [phone] --[address] [place] [address]. Please read below carefully for your personalized [...] Procedures: - YOU MUST HAVE A RESPONSIBLE SUPERINTENDENT FISH HATCHERY TAKE YOU HOME. A FOREMAN SHIPPING DEPARTMENT OR MEDICAL LEAD CANNOT BE MADE A RESPONSIBLE SUPERINTENDENT FISH HATCHERY. - We recommend that a responsible person [...] call the Thursday before. Your surgeon s technical trainer will tell you what time to call the office. - If you have not reached the departmental technical trainer by 5 P.M., call [phone] after 5 P.M. the day before your surgery. Please be aware that emergency situations arise, which may delay or change your surgical time. If this happens, we will notify you as soon as possible and regret any inconvenience. If you already have an Advance Directive, please fax a copy to [phone] or email to for it to be [...] day. Mary Moura APRN.CNP documented in this encounterTrinity Health [facility]08-10-2022 History and physical note * Mary Moura [...] Adult ([facility]) Cervical Radiculopathy Svt (Supraventricular Tachycardia) ([facility]) Palpitations Chest Pain Sob (Shortness of Breath) Degenerative Joint Disease Involving Multiple Joints Limited Mobility History of Gastroesophageal Reflux (Gerd) Morbid Obesity Due to Excess Calories ([facility]) COVID-19 Immunization Status Overdue - COVID-19 VACCINE [...] her obesity and related complications to the [facility] Bariatric and Metabolic [place]. Initial program weight: 368 lbs Last visit [...] meal. Exercise: She has been using an Jocoos program Stress: Stable - lost her car in February. Struggling with transportation Sleep: no insomnia, snoring, or SDB. REVIEW OF SYSTEMS: General: No weight loss, malaise or fevers. Neurological: Positive for: headaches (+migraines, rx as needed, rarely used). Negative for: cerebral palsy, ANGLE FURNACEMAN tumor, multiple sclerosis, Parkinson's disease, peripheral neuropathy, seizures, TIA and strokes. Respiratory: +former smoker Positive for: asthma (rx as needed). Cardiovascular: Positive for: arrhythmia (hx palpitations, SVT, no current issues or tx) Negative for: anticoagulation therapy, atrial fibrillation, CAD, chest pain, CHF, congenital heart defect, DVT/PE, hyperlipidemia, hypertension, recent [place], murmur/valvular heart disease, open heart surgery and valve surgery. GI: See HPI. Positive for: GERD (on rx) Negative for: abdominal pain, dysphagia, hepatitis, irritable bowel syndrome, inflammatory bowel disease, liver disease, nausea, pancreatitis, vomiting and ETOH >2 drinks/day. : No history of dysuria, frequency or incontinence, stones or chronic kidney disease. No difficulty urinating, nocturia > 1 time per night or hematuria. CHEMICAL RECOVERY OPERATOR: Negative for abnormal vaginal bleeding, abnormal vaginal [...] 364 QTC Calculation (Bazett) 409 Calculated P [place] 20 Calculated R [place] -15 Calculated T [place] 1 Impression NORMAL SINUS RHYTHM LEFT VENTRICULAR HYPERTROPHY ABNORMAL ECG Recent Results (from the past 26481 hour(s)) ECHO Collection Time: 02/13/20 8:10 AM [...] (BMI) of 50.0 to 59.9 in adult ([facility]) Assessment: Body mass index is [...] or younger Non-male patient STOP-Bang Score: 3 [id number] Score: Age: <65 Sex: female CHF history: No Hypertension history: No Stroke/TIA/thromboembolism history: No Vascular disease history: No Diabetes history: No [id number] Score: 1 ARISCAT Score: Age: <=50 Preoperative [...] and consent discussed: yes. Patient / Responsible Democrat agrees to proceed: yes Patient / Surrogate [...] 11:41 AM PAGER/CONTACT #: documented in this encounterTrinity Health [facility]08-10-2022 Miscellaneous Notes* Telephone Encounter - Ly Campa LPN - 09/18/2021 8:11 AM EDT Last office visit 08/06/2021. Patient phones requesting refills as follows: Requested Prescriptions Pending Prescriptions Disp Refills omeprazole (PRILOSEC) 40 mg capsule 60 capsule 5 Sig: Take 1 capsule by mouth twice daily. Please review and advise. Ly Campa LPN documented in this encounterTrinity Health [facility]08-09-2022 Miscellaneous Notes* Telephone Encounter - Lianne Welch [...] work today. Will follow. documented in this encounterTrinity Health [facility]08-05-2022 Miscellaneous Notes* Telephone Encounter - Lianne Welch [...] Tylenol. Lianne Welch RN documented in this encounterTrinity Health System [facility] Center07-26-2022 Miscellaneous Notes* Telephone Encounter - Suma Monsalve RN - 09/03/2021 10:35 AM EDT [facility] SPECIAL[facility] COORDINATION SURGERY APPROVAL CALL Received e-mail confirmation of insurance approval for bariatric surgery.Pre- operative call placed to the patient, this RN spoke with patient and agreed upon a surgery date of October 01 2021. Surgical episode request sent to [facility] surgery scheduling. Creatinine level 0.66 Patient instructed to start pre-op 800 calorie total protein liquid diet high protein Slimfast (4.5) or glucose controlled Boost (4.5) daily beginning 2 weeks prior to surgery. - Stop all ASA and NSAID products, [place] 3 fish oil, herbal products such as ginko etc. Stop vitamins EXCEPT B COMPLEX- take this up to the day before surgery - Medication List reviewed. Patient confirmed she is stopping nabumetone and is not taking naproxen. - Patient denies use of estrogen products . - No VICKY - Pt instructed to fax FMLA forms to [phone] and allow 7-10 days for completion. Linda video assigned and Pt will view Drop video during pre-op nurse visit. All questions and concerns addressed and patient verbalized understanding. - Patient case reviewed. All nutrition appointments completed, psychology clearance obtained, surgeon visit and procedure type verified, medical optimization obtained and all testing complete. Con ABO to be ordered Suma Monsalve RN documented in this encounterTrinity Health [facility]07-20-2022 History of Present illness Narrative* Gorge Sterling MD - 08/28/2021 10:09 PM EDT Consultation requested by Viviana Marie APRN.CNP for an opinion regarding facial rash. My final recommendations will be communicated back to the requesting physician by way of shared Medical record in [facility]. Raul Fleming is a 40 year old White female with w/o keratosis pilaris without history of melanoma or non-melanoma skin cancer who presents for initial consultation. She is referred by [facility] concerned about a facial rash beginning [...] - Dr Grupo Shane(06/13/15) Referred by: Viviana Marie(DIE MAKER TRIM.VOCATIONAL ADVISER) DERMATOLOGY HISTORY: Personal Hx of skin cancer: [...] visit in 8 weeks documented in this encounterTrinity Health [facility]07-19-2022 Nurse Note* Maeve Arias Ma - 08/27/2021 3:10 PM EDT Pt being seen for facial rash. documented in this encounterTrinity Health [facility]07-06-2022 Miscellaneous Notes* Telephone Encounter - Td Stiles [...] advise. Td Stiles LPN documented in this encounterTrinity Health System [facility] Center06-29-2022 History of Present illness Narrative* Lianne Welch RN - 08/07/2021 4:58 PM EDT Pseudo date submission for bariatric surgery insurance pre-determination per Navigation team request. documented in this encounterTrinity Health System [facility] Center06-28-2022 Instructions* Patient Instructions* Norma Nolan APRN.CNP - 08/06/2021 11:53 AM EDT Please arrange follow up with derm. You can also reach out to Dr. Diony Brown at [place] [phone] documented in this encounterTrinity Health [facility] Center06-28-2022 History of Present illness Narrative* Norma Nolan APRN.CNP - 08/06/2021 11:36 AM EDT This note was created using Dobango. Subjective Raul Fleming is a 40 year old female. 40 year old female with PMH SVT, GERD, and psoriasis presents with rash. Acute onset of symptoms was mid June Red itchy rash to face Endorses it occurred after being ill, specifically mesenteric adenitis. She was seen in [facility] end of June And was [...] history is provided by the patient. No technical services librarian was used. Rash This is a new [...] discharge Norma Nolan APRN.CNP documented in this encounterTrinity Health [facility] Center06-21-2022 Instructions* Patient Instructions* Daniel Benitez RD - 07/30/2021 9:24 AM EDT Nutrition Action Plan Please call [phone], option 5. Leave a message for the [...] 2 weeks before surgery documented in this encounterTrinity Health [facility]06-21-2022 History of Present illness Narrative* Daniel Benitez RD - 07/30/2021 8:45 AM EDT [facility] Nutrition Therapy: Virtual Consult Re-assessment This visit [...] Activity: cardio and body weight exercise on Haztucesta system 3 days a week for 60 [...] with water as primary beverage. Patient completes [id number]+ minutes physical with a combination of cardio [...] guidelines for weight loss surgery and has [place] insurance and therefore may be required to [...] consumed for meals and snacks: Please call [phone], option 5. Leave a message for the [...] by: Daniel Benitez RD documented in this encounterTrinity Health [facility] Center06-15-2022 Instructions* Patient Instructions* Cris Mishra APRN.FATEMEH - 07/24/2021 12:00 PM EDT Mutually Agreed Upon Goals Eating Plan: Ybrain [place] - Log intake 2 days per week. Replace skipped meals with a protein supplement. Messagemind. Activity: ClearTax Watch or iRhythm Technologies tracker. Sleep: No electronic for 30 minutes [...] be a deadly combination. documented in this encounterTrinity Health System [facility] Center06-15-2022 History of Present illness Narrative* Cris Mishra [...] her obesity and related complications to the [facility] Bariatric and Metabolic [place]. Initial program weight: 368 lbs Last visit [...] meal. Exercise: She has been using an Jocoos program Stress: Stable - lost her car [...] APRN.CNP The patient was informed that in [facility], only one month supply of medication is provided at a time, for 3 months, then a 6 month hiatus from the medication. The patient is also aware that timely refills required, with monthly uzoa-wn-wglf office visits for monitoring of therapy and refills. The patient understands that lack of timely follow up, or not filling the medication on time every month would constitute an interruption of therapy, and the 6 month hiatus from medication would occuras per the [facility] pharmacy board rules. I spent a total of 35 minutes on the date of the service which included fndc-zz-iykh patient care, completing clinical documentation, obtaining and/or reviewing separately obtained history, performing a medically appropriate examination, counseling and educating the patient/family/caregiver and ordering medications, tests, or procedures. Medical Decision Making: Medical Decision Making Level: 1 - N/A All documentation from previous visit was copied and pasted, documentation has been reviewed and edited as necessary for today's visit. Cris Mishra APRN.FATEMEH documented in this encounterTrinity Health [facility] Center06-06-2022 Miscellaneous Notes* Telephone Encounter - Td Stiles LPN - 07/15/2021 4:09 PM EDT Patient phones requesting refills as follows: Pending Prescriptions Disp Refills OMEPRAZOLE 40 MG CAPSULE,DELAYED RELEASE 60 capsule 0 Sig: Take 1 capsule by mouth twice daily. JUAN LUIS: No CEE 07/15/21 NOV no upcoming appt Please review and advise. Td Stiles LPN documented in this encounterTrinity Health System [facility] Center06-06-2022 History of Present illness Narrative* Donald Pearl [...] no suspicious rashes or lesions. Musculoskeletal: 5/5 on site nurse strength bilaterally. Normal ROM of fingers and [...] TABLET Donald Pearl MD documented in this encounterTrinity Health System [facility] Center05-18-2022 Miscellaneous Notes* Telephone Encounter - Td Stiles [...] on 06/24 she went to and then [facility] ER. 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 Wanted to know if provider through she should go to the ER again, or if there was anything the provider w ould like to prescribe. Please call and advise. documented in this encounterTrinity Health System [facility] Center05-16-2022 History of Present illness Narrative* Starr Ram APRN.FATEMEH - 06/24/2021 1:47 PM EDT Subjective The history is provided by the patient. No technical services librarian was used. HPI Raul Fleming is a [...] have confirmed and edited as necessary, the [facility] Review of Systems Constitutional: [...] and lack of investigative tools available at [facility], recommend patient be seen at nearest ED for further work up, patient will go to [place] ED - Diagnosis and treatment plan were discussed and questions were answered to the patient's satisfaction. Pt acknowledged understanding of concepts and follow up plan. Specific signs and symptoms that would indicate the need for higher level of care were discussed indetail warranting prompt ER evaluation. Starr Ram APRN.FATEMEH documented in this encounterTrinity Health [facility] Center05-16-2022 Miscellaneous Notes* Telephone Encounter - Justin Wilson [...] : No. Protocols used: ABDOMINAL PAIN - [id number] documented in this encounterTrinity Health System [facility] Center05-10-2022 History of Present illness Narrative* Alison Jules DO - 06/18/2021 2:28 PM EDT Images from the original note were not included. BMI Obesity Medicine Follow-Up Note June 18, 2021 Patient Summary: is 40 year old female who presents for follow-up evaluation of her obesity and related complications to the [facility] Bariatric and Metabolic [place]. Initial program weight: 368 lbs Last visit [...] meal. Exercise: She has been using an DidLog boxing program Stress: stable Sleep: no insomnia, [...] the date of the service which included gnxg-jc-oxlw patient care, completing clinical documentation, obtaining and/or reviewing separately obtained history, performing a medically appropriate examination, counseling and educating the patient/family/caregiver and ordering medications, tests, or procedures. Medical Decision Making Alison Jules DO documented in this encounterTrinity Health System [facility] Center05-09-2022 Miscellaneous Notes* Telephone Encounter - Oleg Raman - 06/17/2021 2:38 PM EDT Patient called office. Said she is having trouble scheduling her 5 week appointment, and would likea call back. Her phone number is [phone]. 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 Jules documented in this encounterTrinity Health System [facility] Center04-13-2022 History of Present illness Narrative* Daniel Benitez RD - 05/22/2021 11:00 AM EDT [facility] Nutrition Therapy: Virtual Consult Re-assessment This visit [...] exercises at home as well: IN PROGRESS Nallatech workout database: https://Medical Joyworks/ Chair or standing Team Body Project [email or web address]?[email or web address] Chair exercise BioTheryX [email or web address]/[email or web address]-[email or web address] Beth López Easy walk in place 15 min https://www.youScreenube.com/watch?v=gpuW47dwdYB Body Project 30 min https://[email or web address] Beth Rene Higher intensity walk 30 min https://www.Conzoomube.com/watch?v=snSE1YQs5EG 5. Drink 64 ounces per day water. Fluids should follow these guidelines: No carbonation, no caffeine, no calories, no alcohol. Separate foods and fluids by 20 minutes IN PROGRESS 6. Research and choose these vitamin options for use 3 weeks post operatively: IN PROGRESS - Bariatric Fusion: 4 Complete Chewable Multivitamins per day (2 in the AM, 2 in the PM) www.bariatricfusion.Smarp. - Gini.net: 1 Bariatric Multivitamin and Calcium Citrate (total of 1200- 1500 mg/day) * take calcium citrate separately from Multivitamin with iron at least 2 hours apart and 4 hours apart from additional calcium www.Visiarc - Bariatric Choice: 4 Complete Multivitamins (chewables) per day Www.bariatricchoice.Smarp. - Bariatric Advantage: 2 Multivitamins and 3 Calcium Citrate Chewables per day * take calcium citrate separately from Multivitamin with iron at least 2 hours apart and 4 hours apart from additional calcium Www.bariatricadvantage.Smarp. 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 Diet recall reveals consistentmeal pattern [...] guidelines for weight loss surgery and has [place] Medicaid insurance and therefore may be required [...] by: Daniel Benitez RD [facility] of Present illness Narrative* Alison Jules DO - 05/21/2021 4:32 PM EDT Images from the original note were not included. BMI Obesity Medicine Follow-Up Note May 21, 2021 Patient Summary: is 40 year old female who presents for follow-up evaluation of her obesity and related complications to the [facility] Metabolic [place]. The patient is here today for a [...] with a dietitian tomorrow. Exercise: Currently using PageLever game which gives her a good workout. [...] the date of the service which included ytpe-ob-bbff patient care, completing clinical documentation, obtaining and/or reviewing separately obtained history, performing a medically appropriate examination, counseling and educating the patient/family/caregiver and ordering medications, tests, or procedures. Medical Decision Making Alison Jules DO [facility] History of Present illness Narrative* Maribel Sosa [...] 22, 2021 3:56 PM documented [facility] History of Past illness Narrative* Problem Noted [...] of this encounter (statuses as of 05/21/2021) [facility] Narrative* Problem Noted [...] of this encounter (statuses as of 05/22/2021) [facility] Narrative* Problem Noted [...] of this encounter (statuses as of 06/17/2021) [facility] Narrative* Problem Noted [...] of this encounter (statuses as of 06/18/2021) [facility] Narrative* Problem Noted [...] of this encounter (statuses as of 06/18/2021) [facility] Narrative* Problem Noted [...] of this encounter (statuses as of 06/24/2021) [facility] Narrative* Problem Noted [...] of this encounter (statuses as of 06/26/2021) [facility] Narrative* Problem Noted [...] of this encounter (statuses as of 07/15/2021) [facility] Narrative* Problem Noted [...] of this encounter (statuses as of 07/25/2021) [facility] Narrative* Problem Noted [...] of this encounter (statuses as of 07/30/2021) [facility] Narrative* Problem Noted [...] of this encounter (statuses as of 07/31/2021) [facility] Narrative* Problem Noted [...] of this encounter (statuses as of 08/06/2021) [facility] Narrative* Problem Noted [...] of this encounter (statuses as of 08/14/2021) [facility] Narrative* Problem Noted [...] of this encounter (statuses as of 08/30/2021) [facility] Narrative* Problem Noted [...] of this encounter (statuses as of 09/03/2021) [facility] Narrative* Problem Noted [...] of this encounter (statuses as of 09/03/2021) [facility] Narrative* Problem Noted [...] of this encounter (statuses as of 09/13/2021) [facility] Narrative* Problem Noted [...] of this encounter (statuses as of 09/17/2021) [facility] Narrative* Problem Noted [...] of this encounter (statuses as of 09/18/2021) [facility] Narrative* Problem Noted [...] of this encounter (statuses as of 09/20/2021) [facility] Narrative* Problem Noted [...] of this encounter (statuses as of 09/25/2021) [facility] Narrative* Problem Noted [...] of this encounter (statuses as of 10/04/2021) [facility] Narrative* Problem Noted [...] of this encounter (statuses as of 10/09/2021) [facility] N[facility]ative* Problem Noted [...] of this encounter (statuses as of 10/09/2021) [facility] Narrative* Problem Noted [...] of this encounter (statuses as of 10/14/2021) [facility] Narrative* Problem Noted [...] of this encounter (statuses as of 10/18/2021) [facility] Narrative* Problem Noted [...] of this encounter (statuses as of 10/21/2021) [facility] N[facility]ative* Problem Noted [...] of this encounter (statuses as of 10/22/2021) [facility] Narrative* Problem Noted [...] of this encounter (statuses as of 10/22/2021) [facility] Narrative* Problem Noted [...] of this encounter (statuses as of 10/22/2021) [facility] Narrative* Problem Noted [...] of this encounter (statuses as of 10/23/2021) [facility] Narrative* Problem Noted [...] of this encounter (statuses as of 10/23/2021) [facility] N[facility]ative* Problem Noted [...] of this encounter (statuses as of 10/24/2021) [facility] Narrative* Problem Noted [...] of this encounter (statuses as of 10/27/2021) [facility] Narrative* Problem Noted [...] of this encounter (statuses as of 10/30/2021) [facility] Narrative* Problem Noted [...] of this encounter (statuses as of 11/07/2021) [facility] Narrative* Problem Noted [...] of this encounter (statuses as of 11/18/2021) [facility] Narrative* Problem Noted [...] of this encounter (statuses as of 12/10/2021) [facility] N[facility]ative* Problem Noted [...] of this encounter (statuses as of 12/10/2021) [facility] Narrative* Problem Noted [...] of this encounter (statuses as of 01/06/2022) [facility]* Problem Noted [...] of this encounter (statuses as of 01/10/2022) [facility]* Problem Noted [...] of this encounter (statuses as of 01/17/2022) [facility] N[facility]ative* Problem Noted [...] of this encounter (statuses as of 01/18/2022) [facility] N[facility]ative* Problem Noted [...] of this encounter (statuses as of 01/20/2022) [facility] N[facility]ative* Problem Noted [...] of this encounter (statuses as of 02/22/2022) [facility]* Problem Noted [...] of this encounter (statuses as of 03/11/2022) [facility] N[facility]ative* Problem Noted [...] of this encounter (statuses as of 03/31/2022) [facility] N[facility]* Problem Noted [...] of this encounter (statuses as of 04/02/2022) [facility] N[facility]ative* Problem Noted [...] of this encounter (statuses as of 04/11/2022) [facility] N[facility]ative* Problem Noted [...] of this encounter (statuses as of 05/19/2022) [facility] N[facility]ative* Problem Noted [...] of this encounter (statuses as of 05/22/2022) [facility] Narrative* Problem Noted [...] of this encounter (statuses as of 05/23/2022) [facility] Narrative* Problem Noted [...] of this encounter (statuses as of 06/05/2022) [facility] Narrative* Problem Noted [...] of this encounter (statuses as of 06/11/2022) [facility] Narrative* Problem Noted [...] of this encounter (statuses as of 06/17/2022) [facility] Narrative* Problem Noted [...] of this encounter (statuses as of 2022) [facility] Narrative* Problem Noted [...] of this encounter (statuses as of 10/01/2022) [facility] Narrative* Problem Noted [...] of this encounter (statuses as of 10/03/2022) [facility] N[facility]ative* Problem Noted [...] of this encounter (statuses as of 12/14/2022) [facility] Narrative* Problem Noted [...] of this encounter (statuses as of 03/23/2023) [facility] N[facility]* Problem Noted [...] of this encounter (statuses as of 04/20/2023) [facility] N[facility]ative* Problem Noted [...] of this encounter (statuses as of 05/04/2023) [facility] Narrative* Problem Noted [...] of this encounter (statuses as of 05/11/2023) [facility] Max hollins [facility] Note Date/Time September 01, 2024 11:5 6am [facility] Medical Records Department [address] [place] [address] Anesthesia Postop Eval II 09/01/24 1155 MR#: [id number] Acct: [id number] Name: RAUL CHONG DIANNA Rep #:[id number] : 1980 43 From: Max quach MD PCP: Dr. Maira Escamilla MD Status:REG S DC Y Race: C Location: [place] [address]- Anesthesia Postop Eval I Sum Postop Eval Completion status Anesthesia document: Postop Eval 1 completed: Yes Anesthesia Postop Eval I Summary Anesthesia Postop Eval I Summary: Anesthesia Postop Eval I: Assessment Summary Airway patent Yes 09/01/24 09:56 HEAD CHAR FILTER TANK TENDER.SJAN Spontaneous unlabored Yes 09/01/24 09:56 HEAD CHAR FILTER TANK TENDER.MIGUEL respirations Mental status Awake 09/01/24 09:56 HEAD CHAR FILTER TANK TENDER.SJAN nausea No 09/01/24 09:56 HEAD CHAR FILTER TANK TENDER.SJAN Vomiting No 09/01/24 09:56 HEAD CHAR FILTER TANK TENDER.SJFARSHAD Anesthesia Postop Eval I: Fluid Summary Crystalloid volume administer 1,000 09/01/24 09:56 HEAD CHAR FILTER TANK TENDER.SJAN (ml) Colloids volume administered ( ml) Blood Product volume administered (ml) Total IV fluid infused 1,000 09/01/24 09:56 HEAD CHAR FILTER TANK TENDER.SJFARSHAD Anesthesia Postop Eval I: Summary Notes Anesthesia Complication No 09/01/24 09:56 HEAD CHAR FILTER TANK TENDER.MIGUEL Anesthesia Complication Comment: Post-operative progress note Anesthesia: Postop Eval II Evaluation Mental status: Awake and Calm Pain Level: 1 nausea: No Vomiting: No Complications Anesthesia Complication: No 09/01/24 1156 <Electronically signed by Max ramirez MD> Date _ Max Mccollum MD Cosigner Signature: Date CC: ~ Signed [facility] Work Phone: Discharge summary Author Carlos Dockery [facility] Note Date/Time August 16, 2024 11:34 am [facility] Medical Records Department [address] [place] [address] Emergency Department Summary 08/16/24 MR#: [id number] Acct: [id number] Name: RAUL FLEMING DIANNA Rep #:[id number] : 1980 43 From: Carlos Dockery MD [...] discharge or pain. No dysuria or hematuria. [facility] Medical History Migraine GERD (gastroesophageal reflux disease) [...] more for viral syndrome. She will continue vryk-ndu-imyzgut antipyretics and analgesics and follow-up with her [...] 89.2 H Lymph % (Auto) 4.7 L [place] % (Auto) 5.4 Eos % (Auto) 0.1 [...] Clarity Clear Urine pH 6.0 Ur Specific [place] 1.010 Urine Protein 15 H Urine Glucose [...] IMPRESSION: No acute cardiopulmonary process. Reading Location: [facility] Discharge Plan Triage Chief Complaint: General Illness [...] if not improving Activity Restrictions/Additional Instructions: Continue libx-aij-deggorv Tylenol as needed for fever and pain. Follow-up with your primary care provider in the next 3 to 5 days. Return to the emergency department with new or worsening symptoms. Print Language: Chadian Disposition Disposition: Home, Self Care What to do if you have Problems For any increased pain, shortness of breath, bleeding, nausea or vomiting, chestpain, or any unexpected problems, contact your Primary Care Provider. Call [facility] ([phone]) or report to the closest Emergency Room. Call 911 if necessary. 08/16/24 1134 <Electronically signed by Carlos Dockery MD> Cosigner Signature (if applicable): CC: Dr. Maira Escamilla MD ~ Signed [facility] Work Phone: Evaluation + Plan note No data available for this section [facility] Evaluation note* Diagnosis Class 3 severe obesity with serious comorbidity and body mass index (BMI) of 60.0 to 69.9 in adult, unspecified obesity type (HCC)- Primary [facility] encounter [facility] Diagnosis Morbid obesity (HCC)- Primary Morbid obesity Dietary counseling and surveillance Dietary surveillance and counseling documented in this encounter [facility] note* Diagnosis Class 3 severe obesity with serious comorbidity and body mass index (BMI) of 60.0 to 69.9 in adult, unspecified obesity type (HCC)- Primary [facility] noteNo assessment information availableWKet[facility] Work Phone: Evaluation note* Diagnosis Abdominal pain, unspecified abdominal location- Primary [facility]* Diagnosis Cubital tunnel syndrome on left- Primary Lesion of ulnar nerve documented in this encounter [facility] note* Diagnosis Class 3 severe obesity due to excess calories with body mass index (BMI) of 50.0 to 59.9 in adult, unspecified whether serious comorbidity present (HCC)- Primary Weight disorder Other symptoms concerning nutrition, metabolism, and development Medication management Encounter for long-term (current) use of other medications documented [facility] this encounter [facility]* Diagnosis Morbid obesity (HCC)- Primary Morbid obesity Dietary counseling and surveillance Dietary surveillance and counseling [facility]* Diagnosis Facial rash- Primary Rash and other nonspecific skin eruption [facility]* Diagnosis Excoriation of face, subsequent encounter- Primary [facility]* Diagnosis Morbid obesity (HCC)- Primary Morbid obesity Gastroesophageal reflux disease, unspecified whether esophagitis present Preoperative examination Preoperative examination, unspecified Encounter for screening for COVID-19 Morbid obesity (HCC) Morbid obesity Gastroesophageal reflux disease, unspecified whether esophagitis present [facility]* Diagnosis Pre-operative examination- Primary Preoperative examination, [...] whether esophagitis present [facility]* Diagnosis Morbid obesity due to excess calories (HCC)- Primary documented [facility] this encounter [facility]* Diagnosis Encounter for screening mammogram for breast cancer documented [facility] this encounter [facility]* Diagnosis S/P bariatric surgery- Primary Bariatric surgery status Dietary counseling and surveillance Dietary surveillance and counseling Class 3 severe obesity with serious comorbidity and body mass index (BMI) of 60.0 to 69.9 in adult, unspecified obesity type (HCC) documented in this encounter [facility]* Diagnosis Bariatric surgery status- Primary documented in this encounter [facility]* Diagnosis Bariatric surgery status- Primary documented in this encounter [facility]* Diagnosis Morbid obesity due to excess calories (HCC)- Primary Bariatric surgery status documented [facility] this encounter [facility]* Diagnosis Cervical radiculopathy Brachial neuritis or radiculitis nos documented in this encounter [facility]* Diagnosis Recurrent cold sores- Primary Herpes simplex without mention of complication Chapped lips Diseases of lips Mouth pain Other and unspecified diseases of the oral soft tissues documented in this encounter [facility]* Diagnosis No-show for appointment- Primary documented in this encounter [facility]* Diagnosis COVID- Primary documented in this encounter [facility]* Diagnosis Sore throat- Primary Acute pharyngitis Strep throat Streptococcal sore throat documented [facility] this encounter [facility]* Diagnosis Irregular menses- Primary Irregular menstrual cycle [facility]* Diagnosis Seasonal allergies Allergic rhinitis, cause unspecified documented [facility] this encounter [facility]* Diagnosis Encounter for surgical aftercare following surgery of digestive system- Primary Aftercare following surgery of the teeth, oral cavity and digestive system, NEC Class 3 severe obesity due to excess calories without serious comorbidity with body mass index (BMI) of 50.0 to 59.9 in adult (HCC) documented in this encounter [facility]* Diagnosis Cervical radiculopathy Brachial neuritis or radiculitis nos documented in this encounter [facility]* Diagnosis Sciatica, right side- Primary documented in this encounter [facility]* Diagnosis Allergy, subsequent encounter- Primary [facility]* Diagnosis Lightheaded- Primary Dizziness and giddiness Migraine without status migrainosus, not intractable, unspecified migraine type Gastric bypass status for obesity Bariatric surgery status documented [facility] this encounter [facility]* Diagnosis Hyperglycemia- Primary Other abnormal glucose documented in this encounter [facility]* Diagnosis Viral bronchitis- Primary Acute bronchitis [facility] Diagnosis Viral bronchitis- Primary Acute bronchitis [facility]* Diagnosis Encounter for screening mammogram for breast cancer documented in this encounter [facility] note* Diagnosis Cervical radiculopathy Brachial neuritis or radiculitis nos documented [facility]* Diagnosis Encounter for screening mammogram for breast cancer [facility]* Diagnosis Encounter for surgical aftercare following surgery of digestive system- Primary Aftercare following surgery of the teeth, oral cavity and digestive system, NEC documented [facility] this encounter [facility]* Diagnosis Allergy, subsequent encounter Recurrent cold sores Herpes simplex without mention of complication Cervical radiculopathy Brachial neuritis or radiculitis nos documented in this encounter [facility] note* Diagnosis Cervical radiculopathy Brachial neuritis or radiculitis nos documented in this encounter [facility]* Diagnosis Recurrent cold sores Herpes simplex without mention of complication [facility] Diagnosis Migraine without status migrainosus, not intractable, unspecified migraine type- Primary Gastric bypass status for obesity Bariatric surgery status Cold intolerance Other general symptoms Hyperglycemia Other abnormal glucose Screening for hyperlipidemia Screening for lipoid disorders Cervical radiculopathy Brachial neuritis or radiculitis nos documented in this encounter [facility]* Diagnosis Cervical radiculopathy Brachial neuritis or radiculitis nos documented in this encounter [facility] note* Diagnosis Chest pain, unspecified type- [...] site Acute cough documented in this encounter [facility] note* Diagnosis Establishing care with new [...] (BMI) of 50.0 to 59.9 in adult ([facility]) Gastroesophageal reflux disease without esophagitis Esophageal reflux Migraine without status migrainosus, not intractable, unspecified migraine type Mild intermittent asthma, unspecified whether complicated SVT (supraventricular tachycardia) ([facility]) Other specified cardiac dysrhythmias Cervical radiculopathy Brachial neuritis or radiculitis nos documented in this encounter [facility] note* Diagnosis Establishing care with new doctor, encounter for- Primary Other reasons for seeking consultation ASTHMA UNSPECIFIED Unspecified asthma Seasonal allergies Allergic rhinitis, cause unspecified Plantar fasciitis Plantar fascial fibromatosis Morbid obesity (HCC) Morbid obesity Rash and nonspecific skin eruption- Primary Rash and other nonspecific skin eruption Morbid obesity, unspecified obesity type ([facility]) Lumbar sprain, subsequent encounter Pre-operative examination- Primary Preoperative examination, unspecified Class 3 severe obesity due to excess calories without serious comorbidity with body mass index (BMI) of 50.0 to 59.9 in adult ([facility]) Gastroesophageal reflux disease without esophagitis Esophageal reflux Migraine without status migrainosus, not intractable, unspecified migraine type Mild intermittent asthma, unspecified whether complicated SVT (supraventricular tachycardia) ([facility]) Other specified cardiac dysrhythmias Encounter for surgical aftercare following surgery of digestive system- Primary Aftercare following surgery of the teeth, oral cavity and digestive system, NEC Abdominal pannus Localized adiposity Vitamin D deficiency Unspecified vitamin D deficiency documented in this encounter [facility] note* Diagnosis Establishing care with new doctor, encounter for- Primary Other reasons for seeking consultation ASTHMA UNSPECIFIED Unspecified asthma Seasonal allergies Allergic rhinitis, cause unspecified Plantar fasciitis Plantar fascial fibromatosis Morbid obesity (HCC) Morbid obesity Rash and nonspecific skin eruption- Primary Rash and other nonspecific skin eruption Morbid obesity, unspecified obesity type ([facility]) Lumbar sprain, subsequent encounter Pre-operative examination- Primary Preoperative examination, unspecified Class 3 severe obesity due to excess calories without serious comorbidity with body mass index (BMI) of 50.0 to 59.9 in adult ([facility]) Gastroesophageal reflux disease without esophagitis Esophageal reflux Migraine without status migrainosus, not intractable, unspecified migraine type Mild intermittent asthma, unspecified whether complicated SVT (supraventricular tachycardia) ([facility]) Other specified cardiac dysrhythmias Palpitations- Primary documented in this encounter [facility] note* Diagnosis Establishing care with new [...] (BMI) of 50.0 to 59.9 in adult ([facility]) Gastroesophageal reflux disease without esophagitis Esophageal reflux Migraine without status migrainosus, not intractable, unspecified migraine type Mild intermittent asthma, unspecified whether complicated SVT (supraventricular tachycardia) ([facility]) Other specified cardiac dysrhythmias History of migraine- Primary Personal history of other disorders of nervous system and sense organs Headache, unspecified headache type Tension headache documented in this encounter [facility] note* Diagnosis Establishing care with new [...] (BMI) of 50.0 to 59.9 in adult ([facility]) Gastroesophageal reflux disease without esophagitis Esophageal reflux Migraine without status migrainosus, not intractable, unspecified migraine type Mild intermittent asthma, unspecified whether complicated SVT (supraventricular tachycardia) ([facility]) Other specified cardiac dysrhythmias Loose skin- Primary Abdominal pannus Localized adiposity Rash Rash and other nonspecific skin eruption Dermatitis Contact dermatitis and other eczema, due to unspecified cause Intertrigo Other specified erythematous condition documented in this encounter [facility] note* Diagnosis Establishing care with new [...] (BMI) of 50.0 to 59.9 in adult ([facility]) Gastroesophageal reflux disease without esophagitis Esophageal reflux Migraine without status migrainosus, not intractable, unspecified migraine type Mild intermittent asthma, unspecified whether complicated SVT (supraventricular tachycardia) ([facility]) Other specified cardiac dysrhythmias URI, acute Acute upper respiratory infections of unspecified site Acute cough documented in this encounter [facility] note* Diagnosis Establishing care with new doctor, encounter for- Primary Other reasons for seeking consultation ASTHMA UNSPECIFIED Unspecified asthma Seasonal allergies Allergic rhinitis, cause unspecified Plantar fasciitis Plantar fascial fibromatosis Morbid obesity ([facility]) Morbid obesity Rash and nonspecific skin eruption- Primary Rash and other nonspecific skin eruption Morbid obesity, unspecified obesity type ([facility]) Lumbar sprain, subsequent encounter Pre-operative examination- Primary Preoperative examination, unspecified Class 3 severe obesity due to excess calories without serious comorbidity with body mass index (BMI) of 50.0 to 59.9 in adult ([facility]) Gastroesophageal reflux disease without esophagitis Esophageal reflux Migraine without status migrainosus, not intractable, unspecified migraine type Mild intermittent asthma, unspecified whether complicated SVT (supraventricular tachycardia) ([facility]) Other specified cardiac dysrhythmias SVT (supraventricular tachycardia) ([facility])- Primary Other specified cardiac dysrhythmias Need for vaccination Need for prophylactic vaccination and inoculation against unspecified single disease Lightheaded Dizziness and giddiness Palpitations Mild intermittent asthma, unspecified whether complicated Headache, unspecified headache type Breast pain Mastodynia History of gastric bypass Bariatric surgery status Vitamin D deficiency Unspecified vitamin D deficiency documented in this encounter [facility] note* Diagnosis Establishing care with new doctor, encounter for- Primary Other reasons for seeking consultation ASTHMA UNSPECIFIED Unspecified asthma Seasonal allergies Allergic rhinitis, cause unspecified Plantar fasciitis Plantar fascial fibromatosis Morbid obesity ([facility]) Morbid obesity Rash and nonspecific skin eruption- Primary Rash and other nonspecific skin eruption Morbid obesity, unspecified obesity type ([facility]) Lumbar sprain, subsequent encounter Class 3 severe obesity due to excess calories without serious comorbidity with body mass index (BMI) of 60.0 to 69.9 in adult ([facility]) Pre-operative examination- Primary Preoperative examination, unspecified Class 3 severe obesity due to excess calories without serious comorbidity with body mass index (BMI) of 50.0 to 59.9 in adult ([facility]) Gastroesophageal reflux disease without esophagitis Esophageal reflux Migraine without status migrainosus, not intractable, unspecified migraine type Mild intermittent asthma, unspecified whether complicated SVT (supraventricular tachycardia) ([facility]) Other specified cardiac dysrhythmias documented in this encounter [facility] note* Diagnosis Establishing care with new doctor, encounter for- Primary Other reasons for seeking consultation ASTHMA UNSPECIFIED Unspecified asthma Seasonal allergies Allergic rhinitis, cause unspecified Plantar fasciitis Plantar fascial fibromatosis Morbid obesity ([facility]) Morbid obesity Rash and nonspecific skin eruption- Primary Rash and other nonspecific skin eruption Morbid obesity, unspecified obesity type ([facility]) Lumbar sprain, subsequent encounter Pain Generalized pain Pre-operative examination- Primary Preoperative examination, unspecified Class 3 severe obesity due to excess calories without serious comorbidity with body mass index (BMI) of 50.0 to 59.9 in adult ([facility]) Gastroesophageal reflux disease without esophagitis Esophageal reflux Migraine without status migrainosus, not intractable, unspecified migraine type Mild intermittent asthma, unspecified whether complicated SVT (supraventricular tachycardia) ([facility]) Other specified cardiac dysrhythmias documented in this encounter [facility] note* Diagnosis Establishing care with new doctor, encounter for- Primary Other reasons for seeking consultation ASTHMA UNSPECIFIED Unspecified asthma Seasonal allergies Allergic rhinitis, cause unspecified Plantar fasciitis Plantar fascial fibromatosis Morbid obesity ([facility]) Morbid obesity Rash and nonspecific skin eruption- Primary Rash and other nonspecific skin eruption Morbid obesity, unspecified obesity type ([facility]) Lumbar sprain, subsequent encounter Pre-operative examination- Primary Preoperative examination, unspecified Class 3 severe obesity due to excess calories without serious comorbidity with body mass index (BMI) of 50.0 to 59.9 in adult ([facility]) Gastroesophageal reflux disease without esophagitis Esophageal reflux Migraine without status migrainosus, not intractable, unspecified migraine type Mild intermittent asthma, unspecified whether complicated SVT (supraventricular tachycardia) ([facility]) Other specified cardiac dysrhythmias Headache, unspecified headache type Vision loss Unspecified visual loss Near syncope Syncope and collapse Confusion Unspecified psychosis documented in this encounter [facility] note* Diagnosis Establishing care with new doctor, encounter for- Primary Other reasons for seeking consultation ASTHMA UNSPECIFIED Unspecified asthma Seasonal allergies Allergic rhinitis, cause unspecified Plantar fasciitis Plantar fascial fibromatosis Morbid obesity ([facility]) Morbid obesity Rash and nonspecific skin eruption- Primary Rash and other nonspecific skin eruption Morbid obesity, unspecified obesity type ([facility]) Lumbar sprain, subsequent encounter Pre-operative examination- Primary Preoperative examination, unspecified Class 3 severe obesity due to excess calories without serious comorbidity with body mass index (BMI) of 50.0 to 59.9 in adult ([facility]) Gastroesophageal reflux disease without esophagitis Esophageal reflux Migraine without status migrainosus, not intractable, unspecified migraine type Mild intermittent asthma, unspecified whether complicated SVT (supraventricular tachycardia) ([facility]) Other specified cardiac dysrhythmias Pre-op evaluation- Primary Preoperative examination, unspecified documented in this encounter [facility] note* Diagnosis Establishing care with new doctor, encounter for- Primary Other reasons for seeking consultation ASTHMA UNSPECIFIED Unspecified asthma Seasonal allergies Allergic rhinitis, cause unspecified Plantar fasciitis Plantar fascial fibromatosis Morbid obesity ([facility]) Morbid obesity Rash and nonspecific skin eruption- Primary Rash and other nonspecific skin eruption Morbid obesity, unspecified obesity type ([facility]) Lumbar sprain, subsequent encounter Pre-operative examination- Primary Preoperative examination, unspecified Class 3 severe obesity due to excess calories without serious comorbidity with body mass index (BMI) of 50.0 to 59.9 in adult ([facility]) Gastroesophageal reflux disease without esophagitis Esophageal reflux Migraine without status migrainosus, not intractable, unspecified migraine type Mild intermittent asthma, unspecified whether complicated SVT (supraventricular tachycardia) ([facility]) Other specified cardiac dysrhythmias Pre-operative examination- Primary Preoperative examination, unspecified Migraine without status migrainosus, not intractable, unspecified migraine type SVT (supraventricular tachycardia) ([facility]) Other specified cardiac dysrhythmias Mild [...] rx as needed documented in this encounter [facility] note* Diagnosis Establishing care with new [...] (BMI) of 50.0 to 59.9 in adult ([facility]) Gastroesophageal reflux disease without esophagitis Esophageal reflux Migraine without status migrainosus, not intractable, unspecified migraine type Mild intermittent asthma, unspecified whether complicated SVT (supraventricular tachycardia) ([facility]) Other specified cardiac dysrhythmias Pre-operative examination- Primary Preoperative examination, unspecified Migraine without status migrainosus, not intractable, unspecified migraine type SVT (supraventricular tachycardia) ([facility]) Other specified cardiac dysrhythmias Mild [...] specified erythematous condition documented in this encounter [facility] note* Diagnosis Establishing care with new [...] (BMI) of 50.0 to 59.9 in adult ([facility]) Gastroesophageal reflux disease without esophagitis Esophageal reflux Migraine without status migrainosus, not intractable, unspecified migraine type Mild intermittent asthma, unspecified whether complicated SVT (supraventricular tachycardia) ([facility]) Other specified cardiac dysrhythmias Pre-operative examination- Primary Preoperative examination, unspecified Migraine without status migrainosus, not intractable, unspecified migraine type SVT (supraventricular tachycardia) ([facility]) Other specified cardiac dysrhythmias Mild [...] specified erythematous condition documented in this encounter [facility] note* Diagnosis Establishing care with new doctor, encounter for- Primary Other reasons for seeking consultation ASTHMA UNSPECIFIED Unspecified asthma Seasonal allergies Allergic rhinitis, cause unspecified Plantar fasciitis Plantar fascial fibromatosis Morbid obesity ([facility]) Morbid obesity Rash and nonspecific skin eruption- Primary Rash and other nonspecific skin eruption Morbid obesity, unspecified obesity type ([facility]) Lumbar sprain, subsequent encounter Pre-operative examination- Primary Preoperative examination, unspecified Class 3 severe obesity due to excess calories without serious comorbidity with body mass index (BMI) of 50.0 to 59.9 in adult ([facility]) Gastroesophageal reflux disease without esophagitis Esophageal reflux Migraine without status migrainosus, not intractable, unspecified migraine type Mild intermittent asthma, unspecified whether complicated SVT (supraventricular tachycardia) ([facility]) Other specified cardiac dysrhythmias Pre-operative examination- Primary Preoperative examination, unspecified Migraine without status migrainosus, not intractable, unspecified migraine type SVT (supraventricular tachycardia) ([facility]) Other specified cardiac dysrhythmias Mild [...] specified erythematous condition documented in this encounter [facility] note* Diagnosis Establishing care with new [...] (BMI) of 50.0 to 59.9 in adult ([facility]) Gastroesophageal reflux disease without esophagitis Esophageal reflux Migraine without status migrainosus, not intractable, unspecified migraine type Mild intermittent asthma, unspecified whether complicated SVT (supraventricular tachycardia) ([facility]) Other specified cardiac dysrhythmias Pre-operative examination- Primary Preoperative examination, unspecified Migraine without status migrainosus, not intractable, unspecified migraine type SVT (supraventricular tachycardia) ([facility]) Other specified cardiac dysrhythmias Mild intermittent asthma, unspecified whether complicated Gastroesophageal reflux disease without esophagitis Esophageal reflux History of gastric bypass Bariatric surgery status Class 3 severe obesity due to excess calories without serious comorbidity with body mass index (BMI) of 50.0 to 59.9 in adult ([facility])- Primary Pre-op evaluation Preoperative examination, unspecified documented in this encounter [facility] note* Diagnosis Establishing care with new [...] (BMI) of 50.0 to 59.9 in adult ([facility]) Gastroesophageal reflux disease without esophagitis Esophageal reflux Migraine without status migrainosus, not intractable, unspecified migraine type Mild intermittent asthma, unspecified whether complicated SVT (supraventricular tachycardia) ([facility]) Other specified cardiac dysrhythmias Pre-operative examination- Primary Preoperative examination, unspecified Migraine without status migrainosus, not intractable, unspecified migraine type SVT (supraventricular tachycardia) ([facility]) Other specified cardiac dysrhythmias Mild intermittent asthma, unspecified whether complicated Gastroesophageal reflux disease without esophagitis Esophageal reflux History of gastric bypass Bariatric surgery status Post-operative state- Primary Other postprocedural status S/P panniculectomy Other postprocedural status documented in this encounter [facility] note* Diagnosis Establishing care with new [...] (BMI) of 50.0 to 59.9 in adult ([facility]) Gastroesophageal reflux disease without esophagitis Esophageal reflux Migraine without status migrainosus, not intractable, unspecified migraine type Mild intermittent asthma, unspecified whether complicated SVT (supraventricular tachycardia) ([facility]) Other specified cardiac dysrhythmias Pre-operative examination- Primary Preoperative examination, unspecified Migraine without status migrainosus, not intractable, unspecified migraine type SVT (supraventricular tachycardia) ([facility]) Other specified cardiac dysrhythmias Mild intermittent asthma, unspecified whether complicated Gastroesophageal reflux disease without esophagitis Esophageal reflux History of gastric bypass Bariatric surgery status Acute right-sided low back pain with right-sided sciatica- Primary documented in this encounter [facility] note* Diagnosis Establishing care with new doctor, encounter for- Primary Other reasons for seeking consultation ASTHMA UNSPECIFIED Unspecified asthma Seasonal allergies Allergic rhinitis, cause unspecified Plantar fasciitis Plantar fascial fibromatosis Morbid obesity ([facility]) Morbid obesity Rash and nonspecific skin eruption- Primary Rash and other nonspecific skin eruption Morbid obesity, unspecified obesity type ([facility]) Lumbar sprain, subsequent encounter Pre-operative examination- Primary Preoperative examination, unspecified Class 3 severe obesity due to excess calories without serious comorbidity with body mass index (BMI) of 50.0 to 59.9 in adult ([facility]) Gastroesophageal reflux disease without esophagitis Esophageal reflux Migraine without status migrainosus, not intractable, unspecified migraine type Mild intermittent asthma, unspecified whether complicated SVT (supraventricular tachycardia) ([facility]) Other specified cardiac dysrhythmias Pre-operative examination- Primary Preoperative examination, unspecified Migraine without status migrainosus, not intractable, unspecified migraine type SVT (supraventricular tachycardia) ([facility]) Other specified cardiac dysrhythmias Mild intermittent asthma, unspecified whether complicated Gastroesophageal reflux disease without esophagitis Esophageal reflux History of gastric bypass Bariatric surgery status Recurrent cold sores Herpes simplex without mention of complication documented in this encounter [facility] note* Diagnosis Establishing care with new doctor, encounter for- Primary Other reasons for seeking consultation ASTHMA UNSPECIFIED Unspecified asthma Seasonal allergies Allergic rhinitis, cause unspecified Plantar fasciitis Plantar fascial fibromatosis Morbid obesity (HCC) Morbid obesity Rash and nonspecific skin eruption- Primary Rash and other nonspecific skin eruption Morbid obesity, unspecified obesity type ([facility]) Lumbar sprain, subsequent encounter Pre-operative examination- Primary Preoperative examination, unspecified Class 3 severe obesity due to excess calories without serious comorbidity with body mass index (BMI) of 50.0 to 59.9 in adult ([facility]) Gastroesophageal reflux disease without esophagitis Esophageal reflux Migraine without status migrainosus, not intractable, unspecified migraine type Mild intermittent asthma, unspecified whether complicated SVT (supraventricular tachycardia) ([facility]) Other specified cardiac dysrhythmias Pre-operative examination- Primary Preoperative examination, unspecified Migraine without status migrainosus, not intractable, unspecified migraine type SVT (supraventricular tachycardia) ([facility]) Other specified cardiac dysrhythmias Mild intermittent asthma, unspecified whether complicated Gastroesophageal reflux disease without esophagitis Esophageal reflux History of gastric bypass Bariatric surgery status Post-operative state- Primary Other postprocedural status S/P panniculectomy Other postprocedural status documented in this encounter [facility] note* Diagnosis Establishing care with new doctor, encounter for- Primary Other reasons for seeking consultation ASTHMA UNSPECIFIED Unspecified asthma Seasonal allergies Allergic rhinitis, cause unspecified Plantar fasciitis Plantar fascial fibromatosis Morbid obesity ([facility]) Morbid obesity Rash and nonspecific skin eruption- Primary Rash and other nonspecific skin eruption Morbid obesity, unspecified obesity type ([facility]) Lumbar sprain, subsequent encounter Pre-operative examination- Primary Preoperative examination, unspecified Class 3 severe obesity due to excess calories without serious comorbidity with body mass index (BMI) of 50.0 to 59.9 in adult ([facility]) Gastroesophageal reflux disease without esophagitis Esophageal reflux Migraine without status migrainosus, not intractable, unspecified migraine type Mild intermittent asthma, unspecified whether complicated SVT (supraventricular tachycardia) ([facility]) Other specified cardiac dysrhythmias Pre-operative examination- Primary Preoperative examination, unspecified Migraine without status migrainosus, not intractable, unspecified migraine type SVT (supraventricular tachycardia) ([facility]) Other specified cardiac dysrhythmias Mild intermittent asthma, unspecified whether complicated Gastroesophageal reflux disease without esophagitis Esophageal reflux History of gastric bypass Bariatric surgery status Post-operative state- Primary Other postprocedural status S/P panniculectomy Other postprocedural status documented in this encounter [facility] note* Diagnosis Establishing care with new doctor, encounter for- Primary Other reasons for seeking consultation ASTHMA UNSPECIFIED Unspecified asthma Seasonal allergies Allergic rhinitis, cause unspecified Plantar fasciitis Plantar fascial fibromatosis Morbid obesity (HCC) Morbid obesity Rash and nonspecific skin eruption- Primary Rash and other nonspecific skin eruption Morbid obesity, unspecified obesity type ([facility]) Lumbar sprain, subsequent encounter Pre-operative examination- Primary Preoperative examination, unspecified Class 3 severe obesity due to excess calories without serious comorbidity with body mass index (BMI) of 50.0 to 59.9 in adult ([facility]) Gastroesophageal reflux disease without esophagitis Esophageal reflux Migraine without status migrainosus, not intractable, unspecified migraine type Mild intermittent asthma, unspecified whether complicated SVT (supraventricular tachycardia) ([facility]) Other specified cardiac dysrhythmias Pre-operative examination- Primary Preoperative examination, unspecified Migraine without status migrainosus, not intractable, unspecified migraine type SVT (supraventricular tachycardia) ([facility]) Other specified cardiac dysrhythmias Mild intermittent asthma, unspecified whether complicated Gastroesophageal reflux disease without esophagitis Esophageal reflux History of gastric bypass Bariatric surgery status Cervical radiculopathy Brachial neuritis or radiculitis nos documented in this encounter [facility] note* Diagnosis Establishing care with new doctor, encounter for- Primary Other reasons for seeking consultation ASTHMA UNSPECIFIED Unspecified asthma Seasonal allergies Allergic rhinitis, cause unspecified Plantar fasciitis Plantar fascial fibromatosis Morbid obesity ([facility]) Morbid obesity Rash and nonspecific skin eruption- Primary Rash and other nonspecific skin eruption Morbid obesity, unspecified obesity type ([facility]) Lumbar sprain, subsequent encounter Pre-operative examination- Primary Preoperative examination, unspecified Class 3 severe obesity due to excess calories without serious comorbidity with body mass index (BMI) of 50.0 to 59.9 in adult ([facility]) Gastroesophageal reflux disease without esophagitis Esophageal reflux Migraine without status migrainosus, not intractable, unspecified migraine type Mild intermittent asthma, unspecified whether complicated ([facility]) SVT (supraventricular tachycardia) ([facility]) Other specified cardiac dysrhythmias Pre-operative examination- Primary Preoperative examination, unspecified Migraine without status migrainosus, not intractable, unspecified migraine type SVT (supraventricular tachycardia) (HCC) Other specified cardiac dysrhythmias Mild intermittent asthma, unspecified whether complicated (HCC) Gastroesophageal reflux disease without esophagitis Esophageal reflux History of gastric bypass Bariatric surgery status S/P panniculectomy- Primary Other postprocedural status documented in this encounter [facility] note* Diagnosis Establishing care with new [...] Other postprocedural status documented in this encounter [facility] note* Diagnosis Establishing care with new [...] intractable, unspecified migraine type SVT (supraventricular tachycardia) ([facility]) Other specified cardiac dysrhythmias Mild intermittent asthma, unspecified whether complicated (HCC) Gastroesophageal reflux disease without esophagitis Esophageal reflux History of gastric bypass Bariatric surgery status Excess skin- Primary Loose skin documented in this encounter [facility] note* Diagnosis Establishing care with new [...] (BMI) of 50.0 to 59.9 in adult ([facility]) Gastroesophageal reflux disease without esophagitis Esophageal reflux Migraine without status migrainosus, not intractable, unspecified migraine type Mild intermittent asthma, unspecified whether complicated (HCC) SVT (supraventricular tachycardia) ([facility]) Other specified cardiac dysrhythmias Pre-operative examination- Primary Preoperative examination, unspecified Migraine without status migrainosus, not intractable, unspecified migraine type SVT (supraventricular tachycardia) ([facility]) Other specified cardiac dysrhythmias Mild intermittent asthma, unspecified whether complicated ([facility]) Gastroesophageal reflux disease without esophagitis Esophageal reflux History of gastric bypass Bariatric surgery status SVT (supraventricular tachycardia) ([facility])- Primary Other specified cardiac dysrhythmias Mild intermittent asthma, unspecified whether complicated (HCC) Gastroesophageal reflux disease without esophagitis Esophageal reflux History of gastric bypass Bariatric surgery status documented in this encounter [facility] note* Diagnosis Establishing care with new [...] (BMI) of 50.0 to 59.9 in adult ([facility]) Gastroesophageal reflux disease without esophagitis Esophageal reflux Migraine without status migrainosus, not intractable, unspecified migraine type Mild intermittent asthma, unspecified whether complicated (HCC) SVT (supraventricular tachycardia) ([facility]) Other specified cardiac dysrhythmias Pre-operative [...] fibroid Arcuate uterus documented in this encounter [facility] note* Diagnosis Establishing care with new [...] for breast cancer documented in this encounter [facility] note* Diagnosis Establishing care with new [...] of the cervix documented in this encounter [facility] note* Diagnosis Establishing care with new [...] other viral [facility] Diagnosis Establishing care with new doctor, [...] unspecified whether complicated (HCC) SVT (supraventricular tachycardia) ([facility]) Other specified cardiac dysrhythmias Pre-operative [...] frequent menstruation Dysmenorrhea documented in this encounter [facility] note* Diagnosis Establishing care with new doctor, encounter for- Primary Other reasons for seeking consultation ASTHMA UNSPECIFIED Unspecified asthma Seasonal allergies Allergic rhinitis, cause unspecified Plantar fasciitis Plantar fascial fibromatosis Morbid obesity ([facility]) Morbid obesity Pre-operative examination- Primary Preoperative examination, unspecified Class 3 severe obesity due to excess calories without serious comorbidity with body mass index (BMI) of 50.0 to 59.9 in adult ([facility]) Gastroesophageal reflux disease without esophagitis Esophageal reflux Migraine without status migrainosus, not intractable, unspecified migraine type Mild intermittent asthma, unspecified whether complicated (HCC) SVT (supraventricular tachycardia) ([facility]) Other specified cardiac dysrhythmias Pre-operative examination- Primary Preoperative examination, unspecified Migraine without status migrainosus, not intractable, unspecified migraine type SVT (supraventricular tachycardia) ([facility]) Other specified cardiac dysrhythmias Mild intermittent asthma, unspecified whether complicated (HCC) Gastroesophageal reflux disease without esophagitis Esophageal reflux History of gastric bypass Bariatric surgery status Abnormal uterine bleeding (AUB)- Primary Adenomyosis of uterus documented in this encounter [facility] note* Diagnosis Establishing care with new [...] (BMI) of 50.0 to 59.9 in adult ([facility]) Gastroesophageal reflux disease without esophagitis Esophageal reflux Migraine without status migrainosus, not intractable, unspecified migraine type Mild intermittent asthma, unspecified whether complicated (HCC) SVT (supraventricular tachycardia) ([facility]) Other specified cardiac dysrhythmias Pre-operative [...] Problem(s): Arcuate uterus [facility] Diagnosis Establishing care with new doctor, [...] unspecified whether complicated (HCC) SVT (supraventricular tachycardia) ([facility]) Other specified cardiac dysrhythmias Pre-operative examination- Primary Preoperative examination, unspecified Migraine without status migrainosus, not intractable, unspecified migraine type SVT (supraventricular tachycardia) ([facility]) Other specified cardiac dysrhythmias Mild intermittent asthma, unspecified whether complicated (HCC) Gastroesophageal reflux disease without esophagitis Esophageal reflux History of gastric bypass Bariatric surgery status Adenomyosis of uterus- Primary Arcuate uterus Intramural uterine fibroid Dysmenorrhea Abnormal uterine bleeding (AUB) Otalgia, left- Primary documented in this encounter [facility] note* Diagnosis Establishing care with new [...] unspecified whether complicated (HCC) SVT (supraventricular tachycardia) ([facility]) Other specified cardiac dysrhythmias Pre-operative examination- Primary Preoperative examination, unspecified Migraine without status migrainosus, not intractable, unspecified migraine type SVT (supraventricular tachycardia) ([facility]) Other specified cardiac dysrhythmias Mild [...] or frequent menstruation documented in this encounter [facility] note* Diagnosis Establishing care with new [...] other viral diseases [facility] Discharge instructions Additional Instructions This will be treated as an enlarged infected groin lymph node. You will be placed on antibiotic Keflex 4 times a day for 10 days. Very important if this is not getting better you need to follow-up your primary care physician for further evaluation to ensure it is nothing else going on.[facility] Work Phone: Hospital Discharge instructions Additional Instructions Follow-up with your plastic surgeon tomorrow as scheduled. Continue the Bactrim that was written for you by their office. Return to the emergency department with sustained high fever, new or worsening symptoms.[facility] Work Phone: Hospital Discharge instructionsAdditional Instructions Continue [id number] Tylenol as needed for fever and pain. Follow-up with your primary care provider in the next 3 to 5 days. Return to the emergency department with new or worsening symptoms.[facility] Work Phone: Reason for referral (narrative)* Diagnostic Procedure Only (Routine) - Pending Review Specialty Diagnoses / Procedures Referred By Samra ortiz Referred To Contact [facility] Diagnoses Encounter for screening mammogram for breast cancer Procedures ARUN SCREENING SCREENING MAMMOGRAPHY BI 2-VIEW BREAST INC CAD Maira Escamilla MD [address] [place] [address] [facility] [address] [place] [address] Referral ID Status Reason Start Date Expiration Date Visits Requested Visits Authorized [id number] Pending Review Auto-Generat ed Referral 10/09/2021 11/08/2022 1 1 [facility] for referral (narrative)* Outpatient Procedure (Routine) - Closed Specialty Diagnoses / Procedures Referred By Pearlac t Referred To [facility] Diagnoses Lightheaded Procedures ECG COMPLETE ECG ROUTINE ECG W/LEAST 12 LDS W/I&R Maira Escamilla MD [address] [place] [address] [facility] [address] [place] [address] Referral ID Status Reason Start Date Expiration Date V isits Requested Visits Authorized [id number] Closed Auto-Generate d Referral 06/11/2022 06/11/2023 1 1 [facility] for referral (narrative)* Diagnostic Procedure Only (Routine) - Closed Specialty Diagnoses / Procedures Referred By Samra ortiz Referred To Contact [facility] Diagnoses Encounter for screening mammogram for breast cancer Procedures ARUN SCREENING SCREENING MAMMOGRAPHY BI 2-VIEW BREAST INC Maira Emerson MD [address] [place] [address] [facility] [address] [place] [address] Referral ID Status Reason Start Date Expiration Date V isits Requested Visits Authorized [id number] Closed Auto-Generate d Referral 10/09/2021 11/08/2022 1 1 [facility] for referral (narrative)* Diagnostic Procedure Only (Routine) - Pending Review Specialty Diagnoses / Procedures Referred By Samra t Referred To Contact [facility] Diagnoses Encounter for screening mammogram for breast cancer Procedures ARUN SCREENING SCREENING MAMMOGRAPHY BI 2-VIEW BREAST INC Maira Emerson MD [address] [place] [address] [facility] [address] [place] [address] Referral ID Status Reason Start Date Expiration Date Visits Requested Visits Authorized [id number] Pending Review Auto-Generat ed Referral 04/15/2023 05/14/2024 1 1 [facility] for referral (narrative)* Diagnostic Procedure Only (Routine) - Authorized Specialty Diagnoses / Procedures Referred By Contac t Referred To Contact [facility] Diagnoses Breast pain Procedures US BREAST LTD LEFT US BREAST UNI REAL TIME WITH IMAGE LIMITED Maira Escamilla MD [address] [place] [address] [facility] [address] [place] [address] Referral ID Status Reason Start Date Expiration Date Visits Requested Visits Authorized [id number] Authorized Auto-Generat ed Referral 10/30/2023 11/28/2024 1 1 * Diagnostic Procedure Only (Routine) - Authorized Specialty Diagnoses / Procedures Referred By Contac t Referred To Contact [facility] Diagnoses Breast pain Procedures US BREAST LTD RIGHT US BREAST UNI REAL TIME WITH IMAGE LIMITED Maira Escamilla MD [address] [place] [address] [facility] [address] [place] [address] Referral ID Status Reason Start Date Expiration Date Visits Requested Visits Authorized [id number] Authorized Auto-Generat ed Referral 10/30/2023 11/28/2024 1 1 * Diagnostic Procedure Only (Routine) - Authorized Specialty Diagnoses / Procedures Referred By Contac t Referred To Contact [facility] Diagnoses Breast pain Procedures ARUN DIAGNOSTIC BILATERAL DIAGNOSTIC MAMMOGRAPHY COMPUTER-AIDED DETCJ BI Maira Escamilla MD [address] [place] [address] [facility] [address] [place] [address] Referral ID Status Reason Start Date Expiration Date Visits Requested Visits Authorized [id number] Authorized Auto-Generat ed Referral 10/30/2023 11/28/2024 1 1 [facility] for referral (narrative)* Diagnostic Procedure Only (Routine) - Closed Specialty Diagnoses / Procedures Referred By Pearlac t Referred To Contact [facility] Diagnoses Pain Procedures XR KNEE GENERAL 4V AP BOTH/PA BOTH/LAT/MERC BILATERAL KNEE AP-WGT/LAT/MERCHANT Pan Hyman MD [address] [place] [address] [facility] [place] [address] Referral ID Status Reason Start Date Expiration Date V isits Requested Visits Authorized [id number] Closed Auto-Generate d Referral 02/22/2021 03/24/2022 1 1 [facility] for referral (narrative)No reason for referral information [facility]: [facility] N[facility]* Diagnostic Procedure Only (Routine) - Closed Specialty Diagnoses / Procedures Referred By Samra t Referred To Contact [facility] Diagnoses Encounter for screening mammogram for breast cancer Procedures ARUN SCREENING SCREENING MAMMOGRAPHY BI 2-VIEW BREAST INC CAD Maira Escamilla MD [address] [place] [address] [facility] [address] [place] [address] Referral ID Status Reason Start Date Expiration Date V isits Requested Visits Authorized [id number] Closed Auto-Generate d Referral 10/09/2021 11/08/2022 1 1 [facility] for visit Narrative* Outpatient Procedure (Routine) - Closed Specialty Diagnoses / Procedures Referred By Samra t Referred To Contact [facility] Diagnoses Headache, unspecified headache type Vision loss Near syncope Confusion Procedures EPIL EEG ROUTINE ELECTROENCEPHALOGRAM REC COMA/SLEEP ONLY Maira Escamilla MD [address] [place] [address] [facility] [address] [place] [address] Referral ID Status Reason Start Date Expiration Date V isits Requested Visits Authorized [id number] Closed Auto-Generate d Referral 08/25/2023 08/24/2024 1 1 [facility] for visit Narrative* Diagnostic Procedure Only (Routine) - Closed Specialty Diagnoses / Procedures Referred By Contac t Referred To Contact [facility] Diagnoses Menorrhagia with regular cycle Procedures PELVIC US WHI US PELVIC NONOBSTETRIC REAL-TIME IMAGE COMPLETE Makeda Smith, DIE MAKER TRIM.VOCATIONAL ADVISER [address] [place] [address] Phone: tel: fax:[phone] [facility] [address] [place] [address] Referral ID Status Reason Start Date Expiration Date V isits Requested Visits Authorized [id number] Closed Auto-Generate d Referral 07/12/2024 07/12/2025 1 1 [facility] for visit Narrative* Diagnostic Procedure Only (Routine) - Closed Specialty Diagnoses / Procedures Referred By Samra t Referred To Contact [facility] Diagnoses Encounter for gynecological examination (general) (routine) without abnormal findings Encounter for screening mammogram for breast cancer Procedures ARUN SCREENING W TONIO SCREENING DIGITAL BREAST TOMOSYNTHESIS BI SCREENING MAMMOGRAPHY BI 2-VIEW BREAST INC CAD Makeda Smith, DIE MAKER TRIM.VOCATIONAL ADVISER [address] [place] [address] Phone: tel: fax:[phone] [facility] [address] [place] [address] Referral ID Status Reason Start Date Expiration Date V isits Requested Visits Authorized [id number] Closed Auto-Generate d Referral 07/12/2024 08/11/2025 1 1 [facility] Chief Complaint Chief Complaint Description Start Date neck pain Preliminary chief co mplaint data, not yet signed by the author as of Instructions Instruction Description Start Date CompletedPatient advised to follow-up with Primary Care Physician for BMI management. 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 No June 02, 2024 3:41pm Advance Directive Response Recorded Date/ Time Do you have a Healthcare Power of Scientific Illustrator? No June 02, 2024 3:41pm Do you have a Healthcare Power of Scientific Illustrator? No August 16, 2024 9:00am Advance Directive Response Recorded Date/ Time Do you have a Healthcare Power of Scientific Illustrator? No June 02, 2024 3:41pm Do you have a Healthcare Power of Scientific Illustrator? No August 25, 2024 11:24am Do you have a Healthcare Power of Scientific Illustrator? No August 16, 2024 9:00am Assessments There [...] 69.9 in adult, unspecified obesity type (HCC) Ailson Jules DO [address] [facility] [place] [id number] Referral ID Status Reason Start Date Expiration Date V isits Requested Visits Authorized [id number] Pending Review 1 1 Referral ID Status Reason Start Date Expiration Date V isits Requested Visits Authorized [id number] Pending Review 1 1 Specialty Diagnoses / Procedures Referred By Contac t Referred To Contact Diagnoses Class 3 severe obesity due to excess calories with body mass index (BMI) of 50.0 to 59.9 in adult, unspecified whether serious comorbidity present (HCC) Weight disorder Cris Mishra DIE MAKER TRIM.VOCATIONAL ADVISER [address] [place] [address] Referral ID Status Reason Start Date Expiration Date Visits Re quested Visits Authorized [id number] Denied 1 1 Specialty Diagnoses / Procedures Referred By Contac t Referred To Contact Dermatology Diagnoses Facial rash Procedures CONSULT TO DERMATOLOGY Norma Nolan, DIE MAKER TRIM.VOCATIONAL ADVISER [address] [place] [address] Referral ID Status Reason Start Date Expiration Date Visits Requested Visits Authorized [id number] Ref Not Required PCP Requested Referral 08/06/2021 08/06/2022 1 1 Specialty Diagnoses / Procedures Referred By Contac t Referred To Contact Diagnoses Morbid obesity (HCC) Chronic GERD Gastroesophageal reflux disease, unspecified whether esophagitis present Preoperative examination Procedures IN PERSON CONSULT TO PACC Jacinta Daugherty, DIE MAKER TRIM.ANGLE FURNACEMAN [address] [place] [address] Referral ID Status Reason Start Date Expiration Date Visits Requested Visits Authorized [id number] Ref Not Required PCP Requested Referral 09/03/2021 12/02/2021 1 1 Specialty Diagnoses / Procedures Referred By Contac t Referred To Contact Diagnoses Allergy, subsequent encounter Maira Escamilla MD [address] [place] [address] Referral ID Status Reason Start Date Expiration Date Visits Re quested Visits Authorized [id number] Closed 1 1 Specialty Diagnoses / Procedures Referred By Contac t Referred To Contact Ophthalmology Diagnoses Vision loss Procedures CONSULT TO OPHTHALMOLOGY OFFICE/OUTPATIENT [facility] 60 MINUTES Maira Escamilla MD [address] [place] [id number] Referral ID Status Reason Start Date Expiration Date Visits Requested Visits Authorized [id number] Authorized PCP Requested Referral 08/25/2023 08/24/2024 1 1 Specialty Diagnoses / Procedures Referred By Contac t Referred To Contact [facility] Diagnoses Headache, unspecified headache type Vision loss Near syncope Confusion Procedures EPIL EEG ROUTINE ELECTROENCEPHALOGRAM REC COMA/SLEEP ONLY Maira Escamilla MD [address] [place] [address] [facility] [address] [place] [address] Referral ID Status Reason Start Date Expiration Date Visits Requested Visits Authorized [id number] Authorized Auto-Generat ed Referral 08/25/2023 08/24/2024 1 1 Specialty Diagnoses / Procedures Referred By Contac t Referred To Contact Neurology Diagnoses Headache, unspecified headache type History of migraine Procedures CONSULT TO NEUROLOGY OFFICE/OUTPATIENT [facility] 60 MINUTES Maira Escamilla MD [address] [place] [address] Referral ID Status Reason Start Date Expiration Date Visits Requested Visits Authorized [id number] Authorized PCP Requested Referral 08/25/2023 08/24/2024 1 1 Specialty Diagnoses / Procedures Referred By Contac t Referred To Contact Plastic Surgery Diagnoses Abdominal pannus Procedures CONSULT TO PLASTIC SURGERY OFFICE/OUTPATIENT [facility] 60 MINUTES Alison Jules DO [address] [facility] [address] [place] [address] Referral ID Status Reason Start Date Expiration Date Visits Requested Visits Authorized [id number] Authorized PCP Requested Referral 09/28/2023 12/27/2023 1 [...] pannus Procedures CONSULT TO PLASTIC SURGERY OFFICE/OUTPATIENT [facility] 60 MINUTES Alison Jules DO [address] [place] [address] Referral ID Status Reason Start Date Expiration Date V isits Requested Visits Authorized [id number] Closed PCP Requested Referral 09/28/2023 12/27/2023 1 [...] [facility] [address] [place] [address] Referral ID Status Reason Start Date Expiration Date Visits Re quested Visits Authorized [id number] 1 1 Reason For Visit Description Start [...] a call back. Her phone number is [phone]. 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 [...] Rash facial rash, was see n in [facility] about a month ago Reason [...] MDM 60 MINUTES Maira Escamilla MD [address] [place] [address] Referral ID Status Reason Start Date Expiration Date V isits Requested Visits Authorized [id number] Closed PCP Requested Referral 08/25/2023 08/24/2024 1 1 Reason Comments PHOTOS TAKEN Reason Comments Results Erroneous encounter-disregard Reason Comments Radio Gen RMP Specialty Diagnoses / Procedures Referred By Contac t Referred To Contact XR IMAGING Diagnoses Pain Procedures XR KNEE GENERAL 4V AP BOTH/PA BOTH/LAT/MERC BILATERAL KNEE AP-WGT/LAT/MERCHANT Pan Hyman MD [address] [place] [address] [place] [address] Referral ID Status Reason Start Date Expiration Date V isits Requested Visits Authorized [id number] Closed Auto-Generate d Referral 02/22/2021 03/24/2022 1 [...] Referred By Contac t Referred To Contact [facility] Diagnoses Menorrhagia with regular cycle Procedures ENDOMETRIAL BIOPSY ENDOMETRIAL BX W/WO ENDOCERVIX BX W/O DILAT SPX Beulah Campa MD [address] [place] [address] Phone: tel: fax: [facility] [address] [place] [address] Referral ID Status Reason Start Date Expiration Date V isits Requested Visits Authorized [id number] Closed Auto-Generate d Referral 08/01/2024 08/01/2025 1 [...] or prosecute any alcohol or drug abuse patient.[facility] CenterIn the event this information is protected by the Federal Confidentiality of Alcohol and Drug Abuse Patient Records regulations: The Federal rules restrict any use of the information to criminally investigate or prosecute any alcohol or drug abuse patient.[facility] CenterIn the event this information is protected by the Federal Confidentiality of Alcohol and Drug Abuse Patient Records regulations: The Federal rules restrict any use of the information to criminally investigate or prosecute any alcohol or drug abuse patient.[facility] CenterIn the event this information is protected by the Federal Confidentiality of Alcohol and Drug Abuse Patient Records regulations: The Federal rules restrict any use of the information to criminally investigate or prosecute any alcohol or drug abuse patient.[facility] CenterIn the event this information is protected by the Federal Confidentiality of Alcohol and Drug Abuse Patient Records regulations: The Federal rules restrict any use of the information to criminally investigate or prosecute any alcohol or drug abuse patient.[facility] CenterIn the event this information is protected by the Federal Confidentiality of Alcohol and Drug Abuse Patient Records regulations: The Federal rules restrict any use of the information to criminally investigate or prosecute any alcohol or drug abuse patient.[facility] CenterIn the event this information is protected by the Federal Confidentiality of Alcohol and Drug Abuse Patient Records regulations: The Federal rules restrict any use of the information to criminally investigate or prosecute any alcohol or drug abuse patient.[facility] CenterIn the event this information is protected by the Federal Confidentiality of Alcohol and Drug Abuse Patient Records regulations: The Federal rules restrict any use of the information to criminally investigate or prosecute any alcohol or drug abuse patient.[facility] CenterIn the event this information is protected by the Federal Confidentiality of Alcohol and Drug Abuse Patient Records regulations: The Federal rules restrict any use of the information to criminally investigate or prosecute any alcohol or drug abuse patient.[facility] CenterIn the event this information is protected by the Federal Confidentiality of Alcohol and Drug Abuse Patient Records regulations: The Federal rules restrict any use of the information to criminally investigate or prosecute any alcohol or drug abuse patient.[facility] CenterIn the event this information is protected by the Federal Confidentiality of Alcohol and Drug Abuse Patient Records regulations: The Federal rules restrict any use of the information to criminally investigate or prosecute any alcohol or drug abuse patient.[facility] CenterIn the event this information is protected by the Federal Confidentiality of Alcohol and Drug Abuse Patient Records regulations: The Federal rules restrict any use of the information to criminally investigate or prosecute any alcohol or drug abuse patient.[facility] CenterIn the event this information is protected by the Federal Confidentiality of Alcohol and Drug Abuse Patient Records regulations: The Federal rules restrict any use of the information to criminally investigate or prosecute any alcohol or drug abuse patient.[facility] CenterIn the event this information is protected by the Federal Confidentiality of Alcohol and Drug Abuse Patient Records regulations: The Federal rules restrict any use of the information to criminally investigate or prosecute any alcohol or drug abuse patient.[facility] CenterIn the event this information is protected by the Federal Confidentiality of Alcohol and Drug Abuse Patient Records regulations: The Federal rules restrict any use of the information to criminally investigate or prosecute any alcohol or drug abuse patient.[facility] CenterIn the event this information is protected by the Federal Confidentiality of Alcohol and Drug Abuse Patient Records regulations: The Federal rules restrict any use of the information to criminally investigate or prosecute any alcohol or drug abuse patient.[facility] CenterIn the event this information is protected by the Federal Confidentiality of Alcohol and Drug Abuse Patient Records regulations: The Federal rules restrict any use of the information to criminally investigate or prosecute any alcohol or drug abuse patient.[facility] CenterIn the event this information is protected by the Federal Confidentiality of Alcohol and Drug Abuse Patient Records regulations: The Federal rules restrict any use of the information to criminally investigate or prosecute any alcohol or drug abuse patient.[facility] CenterIn the event this information is protected by the Federal Confidentiality of Alcohol and Drug Abuse Patient Records regulations: The Federal rules restrict any use of the information to criminally investigate or prosecute any alcohol or drug abuse patient.[facility] CenterIn the event this information is protected by the Federal Confidentiality of Alcohol and Drug Abuse Patient Records regulations: The Federal rules restrict any use of the information to criminally investigate or prosecute any alcohol or drug abuse patient.[facility] CenterIn the event this information is protected by the Federal Confidentiality of Alcohol and Drug Abuse Patient Records regulations: The Federal rules restrict any use of the information to criminally investigate or prosecute any alcohol or drug abuse patient.[facility] CenterIn the event this information is protected by the Federal Confidentiality of Alcohol and Drug Abuse Patient Records regulations: The Federal rules restrict any use of the information to criminally investigate or prosecute any alcohol or drug abuse patient.[facility] CenterIn the event this information is protected by the Federal Confidentiality of Alcohol and Drug Abuse Patient Records regulations: The Federal rules restrict any use of the information to criminally investigate or prosecute any alcohol or drug abuse patient.[facility] CenterIn the event this information is protected by the Federal Confidentiality of Alcohol and Drug Abuse Patient Records regulations: The Federal rules restrict any use of the information to criminally investigate or prosecute any alcohol or drug abuse patient.[facility] CenterIn the event this information is protected by the Federal Confidentiality of Alcohol and Drug Abuse Patient Records regulations: The Federal rules restrict any use of the information to criminally investigate or prosecute any alcohol or drug abuse patient.[facility] CenterIn the event this information is protected by the Federal Confidentiality of Alcohol and Drug Abuse Patient Records regulations: The Federal rules restrict any use of the information to criminally investigate or prosecute any alcohol or drug abuse patient.[facility] CenterIn the event this information is protected by the Federal Confidentiality of Alcohol and Drug Abuse Patient Records regulations: The Federal rules restrict any use of the information to criminally investigate or prosecute any alcohol or drug abuse patient.[facility] CenterIn the event this information is protected by the Federal Confidentiality of Alcohol and Drug Abuse Patient Records regulations: The Federal rules restrict any use of the information to criminally investigate or prosecute any alcohol or drug abuse patient.[facility] CenterIn the event this information is protected by the Federal Confidentiality of Alcohol and Drug Abuse Patient Records regulations: The Federal rules restrict any use of the information to criminally investigate or prosecute any alcohol or drug abuse patient.[facility] CenterIn the event this information is protected by the Federal Confidentiality of Alcohol and Drug Abuse Patient Records regulations: The Federal rules restrict any use of the information to criminally investigate or prosecute any alcohol or drug abuse patient.[facility] CenterIn the event this information is protected by the Federal Confidentiality of Alcohol and Drug Abuse Patient Records regulations: The Federal rules restrict any use of the information to criminally investigate or prosecute any alcohol or drug abuse patient.[facility] CenterIn the event this information is protected by the Federal Confidentiality of Alcohol and Drug Abuse Patient Records regulations: The Federal rules restrict any use of the information to criminally investigate or prosecute any alcohol or drug abuse patient.[facility] CenterIn the event this information is protected by the Federal Confidentiality of Alcohol and Drug Abuse Patient Records regulations: The Federal rules restrict any use of the information to criminally investigate or prosecute any alcohol or drug abuse patient.[facility] CenterIn the event this information is protected by the Federal Confidentiality of Alcohol and Drug Abuse Patient Records regulations: The Federal rules restrict any use of the information to criminally investigate or prosecute any alcohol or drug abuse patient.[facility] CenterIn the event this information is protected by the Federal Confidentiality of Alcohol and Drug Abuse Patient Records regulations: The Federal rules restrict any use of the information to criminally investigate or prosecute any alcohol or drug abuse patient.[facility] CenterIn the event this information is protected by the Federal Confidentiality of Alcohol and Drug Abuse Patient Records regulations: The Federal rules restrict any use of the information to criminally investigate or prosecute any alcohol or drug abuse patient.[facility] CenterIn the event this information is protected by the Federal Confidentiality of Alcohol and Drug Abuse Patient Records regulations: The Federal rules restrict any use of the information to criminally investigate or prosecute any alcohol or drug abuse patient.[facility] CenterIn the event this information is protected by the Federal Confidentiality of Alcohol and Drug Abuse Patient Records regulations: The Federal rules restrict any use of the information to criminally investigate or prosecute any alcohol or drug abuse patient.[facility] CenterIn the event this information is protected by the Federal Confidentiality of Alcohol and Drug Abuse Patient Records regulations: The Federal rules restrict any use of the information to criminally investigate or prosecute any alcohol or drug abuse patient.[facility] CenterIn the event this information is protected by the Federal Confidentiality of Alcohol and Drug Abuse Patient Records regulations: The Federal rules restrict any use of the information to criminally investigate or prosecute any alcohol or drug abuse patient.[facility] CenterIn the event this information is protected by the Federal Confidentiality of Alcohol and Drug Abuse Patient Records regulations: The Federal rules restrict any use of the information to criminally investigate or prosecute any alcohol or drug abuse patient.[facility] CenterIn the event this information is protected by the Federal Confidentiality of Alcohol and Drug Abuse Patient Records regulations: The Federal rules restrict any use of the information to criminally investigate or prosecute any alcohol or drug abuse patient.[facility] CenterIn the event this information is protected by the Federal Confidentiality of Alcohol and Drug Abuse Patient Records regulations: The Federal rules restrict any use of the information to criminally investigate or prosecute any alcohol or drug abuse patient.[facility] CenterIn the event this information is protected by the Federal Confidentiality of Alcohol and Drug Abuse Patient Records regulations: The Federal rules restrict any use of the information to criminally investigate or prosecute any alcohol or drug abuse patient.[facility] CenterIn the event this information is protected by the Federal Confidentiality of Alcohol and Drug Abuse Patient Records regulations: The Federal rules restrict any use of the information to criminally investigate or prosecute any alcohol or drug abuse patient.[facility] CenterIn the event this information is protected by the Federal Confidentiality of Alcohol and Drug Abuse Patient Records regulations: The Federal rules restrict any use of the information to criminally investigate or prosecute any alcohol or drug abuse patient.[facility] CenterIn the event this information is protected by the Federal Confidentiality of Alcohol and Drug Abuse Patient Records regulations: The Federal rules restrict any use of the information to criminally investigate or prosecute any alcohol or drug abuse patient.[facility] CenterIn the event this information is protected by the Federal Confidentiality of Alcohol and Drug Abuse Patient Records regulations: The Federal rules restrict any use of the information to criminally investigate or prosecute any alcohol or drug abuse patient.[facility] CenterIn the event this information is protected by the Federal Confidentiality of Alcohol and Drug Abuse Patient Records regulations: The Federal rules restrict any use of the information to criminally investigate or prosecute any alcohol or drug abuse patient.[facility] CenterIn the event this information is protected by the Federal Confidentiality of Alcohol and Drug Abuse Patient Records regulations: The Federal rules restrict any use of the information to criminally investigate or prosecute any alcohol or drug abuse patient.[facility] CenterIn the event this information is protected by the Federal Confidentiality of Alcohol and Drug Abuse Patient Records regulations: The Federal rules restrict any use of the information to criminally investigate or prosecute any alcohol or drug abuse patient.[facility] CenterIn the event this information is protected by the Federal Confidentiality of Alcohol and Drug Abuse Patient Records regulations: The Federal rules restrict any use of the information to criminally investigate or prosecute any alcohol or drug abuse patient.[facility] CenterIn the event this information is protected by the Federal Confidentiality of Alcohol and Drug Abuse Patient Records regulations: The Federal rules restrict any use of the information to criminally investigate or prosecute any alcohol or drug abuse patient.[facility] CenterIn the event this information is protected by the Federal Confidentiality of Alcohol and Drug Abuse Patient Records regulations: The Federal rules restrict any use of the information to criminally investigate or prosecute any alcohol or drug abuse patient.[facility] CenterIn the event this information is protected by the Federal Confidentiality of Alcohol and Drug Abuse Patient Records regulations: The Federal rules restrict any use of the information to criminally investigate or prosecute any alcohol or drug abuse patient.[facility] CenterIn the event this information is protected by the Federal Confidentiality of Alcohol and Drug Abuse Patient Records regulations: The Federal rules restrict any use of the information to criminally investigate or prosecute any alcohol or drug abuse patient.[facility] CenterIn the event this information is protected by the Federal Confidentiality of Alcohol and Drug Abuse Patient Records regulations: The Federal rules restrict any use of the information to criminally investigate or prosecute any alcohol or drug abuse patient.[facility] CenterIn the event this information is protected by the Federal Confidentiality of Alcohol and Drug Abuse Patient Records regulations: The Federal rules restrict any use of the information to criminally investigate or prosecute any alcohol or drug abuse patient.[facility] CenterIn the event this information is protected by the Federal Confidentiality of Alcohol and Drug Abuse Patient Records regulations: The Federal rules restrict any use of the information to criminally investigate or prosecute any alcohol or drug abuse patient.[facility] CenterIn the event this information is protected by the Federal Confidentiality of Alcohol and Drug Abuse Patient Records regulations: The Federal rules restrict any use of the information to criminally investigate or prosecute any alcohol or drug abuse patient.[facility] CenterIn the event this information is protected by the Federal Confidentiality of Alcohol and Drug Abuse Patient Records regulations: The Federal rules restrict any use of the information to criminally investigate or prosecute any alcohol or drug abuse patient.[facility] CenterIn the event this information is protected by the Federal Confidentiality of Alcohol and Drug Abuse Patient Records regulations: The Federal rules restrict any use of the information to criminally investigate or prosecute any alcohol or drug abuse patient.[facility] CenterIn the event this information is protected by the Federal Confidentiality of Alcohol and Drug Abuse Patient Records regulations: The Federal rules restrict any use of the information to criminally investigate or prosecute any alcohol or drug abuse patient.[facility] CenterIn the event this information is protected by the Federal Confidentiality of Alcohol and Drug Abuse Patient Records regulations: The Federal rules restrict any use of the information to criminally investigate or prosecute any alcohol or drug abuse patient.[facility] CenterIn the event this information is protected by the Federal Confidentiality of Alcohol and Drug Abuse Patient Records regulations: The Federal rules restrict any use of the information to criminally investigate or prosecute any alcohol or drug abuse patient.[facility] CenterIn the event this information is protected by the Federal Confidentiality of Alcohol and Drug Abuse Patient Records regulations: The Federal rules restrict any use of the information to criminally investigate or prosecute any alcohol or drug abuse patient.[facility] CenterIn the event this information is protected by the Federal Confidentiality of Alcohol and Drug Abuse Patient Records regulations: The Federal rules restrict any use of the information to criminally investigate or prosecute any alcohol or drug abuse patient.[facility] CenterIn the event this information is protected by the Federal Confidentiality of Alcohol and Drug Abuse Patient Records regulations: The Federal rules restrict any use of the information to criminally investigate or prosecute any alcohol or drug abuse patient.[facility] CenterIn the event this information is protected by the Federal Confidentiality of Alcohol and Drug Abuse Patient Records regulations: The Federal rules restrict any use of the information to criminally investigate or prosecute any alcohol or drug abuse patient.[facility] CenterIn the event this information is protected by the Federal Confidentiality of Alcohol and Drug Abuse Patient Records regulations: The Federal rules restrict any use of the information to criminally investigate or prosecute any alcohol or drug abuse patient.[facility] CenterIn the event this information is protected by the Federal Confidentiality of Alcohol and Drug Abuse Patient Records regulations: The Federal rules restrict any use of the information to criminally investigate or prosecute any alcohol or drug abuse patient.[facility] CenterIn the event this information is protected by the Federal Confidentiality of Alcohol and Drug Abuse Patient Records regulations: The Federal rules restrict any use of the information to criminally investigate or prosecute any alcohol or drug abuse patient.[facility] CenterIn the event this information is protected by the Federal Confidentiality of Alcohol and Drug Abuse Patient Records regulations: The Federal rules restrict any use of the information to criminally investigate or prosecute any alcohol or drug abuse patient.[facility] CenterIn the event this information is protected by the Federal Confidentiality of Alcohol and Drug Abuse Patient Records regulations: The Federal rules restrict any use of the information to criminally investigate or prosecute any alcohol or drug abuse patient.[facility] CenterIn the event this information is protected by the Federal Confidentiality of Alcohol and Drug Abuse Patient Records regulations: The Federal rules restrict any use of the information to criminally investigate or prosecute any alcohol or drug abuse patient.[facility] CenterIn the event this information is protected by the Federal Confidentiality of Alcohol and Drug Abuse Patient Records regulations: The Federal rules restrict any use of the information to criminally investigate or prosecute any alcohol or drug abuse patient.[facility] CenterIn the event this information is protected by the Federal Confidentiality of Alcohol and Drug Abuse Patient Records regulations: The Federal rules restrict any use of the information to criminally investigate or prosecute any alcohol or drug abuse patient.[facility] CenterIn the event this information is protected by the Federal Confidentiality of Alcohol and Drug Abuse Patient Records regulations: The Federal rules restrict any use of the information to criminally investigate or prosecute any alcohol or drug abuse patient.[facility] CenterIn the event this information is protected by the Federal Confidentiality of Alcohol and Drug Abuse Patient Records regulations: The Federal rules restrict any use of the information to criminally investigate or prosecute any alcohol or drug abuse patient.[facility] CenterIn the event this information is protected by the Federal Confidentiality of Alcohol and Drug Abuse Patient Records regulations: The Federal rules restrict any use of the information to criminally investigate or prosecute any alcohol or drug abuse patient.[facility] CenterIn the event this information is protected by the Federal Confidentiality of Alcohol and Drug Abuse Patient Records regulations: The Federal rules restrict any use of the information to criminally investigate or prosecute any alcohol or drug abuse patient.[facility] CenterIn the event this information is protected by the Federal Confidentiality of Alcohol and Drug Abuse Patient Records regulations: The Federal rules restrict any use of the information to criminally investigate or prosecute any alcohol or drug abuse patient.[facility] CenterIn the event this information is protected by the Federal Confidentiality of Alcohol and Drug Abuse Patient Records regulations: The Federal rules restrict any use of the information to criminally investigate or prosecute any alcohol or drug abuse patient.[facility] CenterIn the event this information is protected by the Federal Confidentiality of Alcohol and Drug Abuse Patient Records regulations: The Federal rules restrict any use of the information to criminally investigate or prosecute any alcohol or drug abuse patient.[facility] CenterIn the event this information is protected by the Federal Confidentiality of Alcohol and Drug Abuse Patient Records regulations: The Federal rules restrict any use of the information to criminally investigate or prosecute any alcohol or drug abuse patient.[facility] CenterIn the event this information is protected by the Federal Confidentiality of Alcohol and Drug Abuse Patient Records regulations: The Federal rules restrict any use of the information to criminally investigate or prosecute any alcohol or drug abuse patient.[facility] CenterIn the event this information is protected by the Federal Confidentiality of Alcohol and Drug Abuse Patient Records regulations: The Federal rules restrict any use of the information to criminally investigate or prosecute any alcohol or drug abuse patient.[facility] CenterIn the event this information is protected by the Federal Confidentiality of Alcohol and Drug Abuse Patient Records regulations: The Federal rules restrict any use of the information to criminally investigate or prosecute any alcohol or drug abuse patient.[facility] CenterIn the event this information is protected by the Federal Confidentiality of Alcohol and Drug Abuse Patient Records regulations: The Federal rules restrict any use of the information to criminally investigate or prosecute any alcohol or drug abuse patient.[facility] CenterIn the event this information is protected by the Federal Confidentiality of Alcohol and Drug Abuse Patient Records regulations: The Federal rules restrict any use of the information to criminally investigate or prosecute any alcohol or drug abuse patient.[facility] CenterIn the event this information is protected by the Federal Confidentiality of Alcohol and Drug Abuse Patient Records regulations: The Federal rules restrict any use of the information to criminally investigate or prosecute any alcohol or drug abuse patient.[facility] CenterIn the event this information is protected by the Federal Confidentiality of Alcohol and Drug Abuse Patient Records regulations: The Federal rules restrict any use of the information to criminally investigate or prosecute any alcohol or drug abuse patient.[facility] CenterIn the event this information is protected by the Federal Confidentiality of Alcohol and Drug Abuse Patient Records regulations: The Federal rules restrict any use of the information to criminally investigate or prosecute any alcohol or drug abuse patient.[facility] CenterIn the event this information is protected by the Federal Confidentiality of Alcohol and Drug Abuse Patient Records regulations: The Federal rules restrict any use of the information to criminally investigate or prosecute any alcohol or drug abuse patient.[facility] CenterIn the event this information is protected by the Federal Confidentiality of Alcohol and Drug Abuse Patient Records regulations: The Federal rules restrict any use of the information to criminally investigate or prosecute any alcohol or drug abuse patient.[facility] CenterIn the event this information is protected by the Federal Confidentiality of Alcohol and Drug Abuse Patient Records regulations: The Federal rules restrict any use of the information to criminally investigate or prosecute any alcohol or drug abuse patient.[facility] CenterIn the event this information is protected by the Federal Confidentiality of Alcohol and Drug Abuse Patient Records regulations: The Federal rules restrict any use of the information to criminally investigate or prosecute any alcohol or drug abuse patient.[facility] CenterIn the event this information is protected by the Federal Confidentiality of Alcohol and Drug Abuse Patient Records regulations: The Federal rules restrict any use of the information to criminally investigate or prosecute any alcohol or drug abuse patient.[facility] CenterIn the event this information is protected by the Federal Confidentiality of Alcohol and Drug Abuse Patient Records regulations: The Federal rules restrict any use of the information to criminally investigate or prosecute any alcohol or drug abuse patient.[facility] CenterIn the event this information is protected by the Federal Confidentiality of Alcohol and Drug Abuse Patient Records regulations: The Federal rules restrict any use of the information to criminally investigate or prosecute any alcohol or drug abuse patient.[facility] CenterIn the event this information is protected by the Federal Confidentiality of Alcohol and Drug Abuse Patient Records regulations: The Federal rules restrict any use of the information to criminally investigate or prosecute any alcohol or drug abuse patient.[facility] CenterIn the event this information is protected by the Federal Confidentiality of Alcohol and Drug Abuse Patient Records regulations: The Federal rules restrict any use of the information to criminally investigate or prosecute any alcohol or drug abuse patient.[facility] CenterIn the event this information is protected by the Federal Confidentiality of Alcohol and Drug Abuse Patient Records regulations: The Federal rules restrict any use of the information to criminally investigate or prosecute any alcohol or drug abuse patient.[facility] CenterIn the event this information is protected by the Federal Confidentiality of Alcohol and Drug Abuse Patient Records regulations: The Federal rules restrict any use of the information to criminally investigate or prosecute any alcohol or drug abuse patient.[facility] CenterIn the event this information is protected by the Federal Confidentiality of Alcohol and Drug Abuse Patient Records regulations: The Federal rules restrict any use of the information to criminally investigate or prosecute any alcohol or drug abuse patient.[facility] CenterIn the event this information is protected by the Federal Confidentiality of Alcohol and Drug Abuse Patient Records regulations: The Federal rules restrict any use of the information to criminally investigate or prosecute any alcohol or drug abuse patient.[facility] CenterIn the event this information is protected by the Federal Confidentiality of Alcohol and Drug Abuse Patient Records regulations: The Federal rules restrict any use of the information to criminally investigate or prosecute any alcohol or drug abuse patient.[facility] CenterIn the event this information is protected by the Federal Confidentiality of Alcohol and Drug Abuse Patient Records regulations: The Federal rules restrict any use of the information to criminally investigate or prosecute any alcohol or drug abuse patient.[facility] CenterIn the event this information is protected by the Federal Confidentiality of Alcohol and Drug Abuse Patient Records regulations: The Federal rules restrict any use of the information to criminally investigate or prosecute any alcohol or drug abuse patient.[facility] CenterIn the event this information is protected by the Federal Confidentiality of Alcohol and Drug Abuse Patient Records regulations: The Federal rules restrict any use of the information to criminally investigate or prosecute any alcohol or drug abuse patient.[facility] CenterIn the event this information is protected by the Federal Confidentiality of Alcohol and Drug Abuse Patient Records regulations: The Federal rules restrict any use of the information to criminally investigate or prosecute any alcohol or drug abuse patient.[facility] CenterIn the event this information is protected by the Federal Confidentiality of Alcohol and Drug Abuse Patient Records regulations: The Federal rules restrict any use of the information to criminally investigate or prosecute any alcohol or drug abuse patient.[facility] CenterIn the event this information is protected by the Federal Confidentiality of Alcohol and Drug Abuse Patient Records regulations: The Federal rules restrict any use of the information to criminally investigate or prosecute any alcohol or drug abuse patient.[facility] CenterIn the event this information is protected by the Federal Confidentiality of Alcohol and Drug Abuse Patient Records regulations: The Federal rules restrict any use of the information to criminally investigate or prosecute any alcohol or drug abuse patient.[facility] CenterIn the event this information is protected by the Federal Confidentiality of Alcohol and Drug Abuse Patient Records regulations: The Federal rules restrict any use of the information to criminally investigate or prosecute any alcohol or drug abuse patient.[facility] CenterIn the event this information is protected by the Federal Confidentiality of Alcohol and Drug Abuse Patient Records regulations: The Federal rules restrict any use of the information to criminally investigate or prosecute any alcohol or drug abuse patient.[facility] CenterIn the event this information is protected by the Federal Confidentiality of Alcohol and Drug Abuse Patient Records regulations: The Federal rules restrict any use of the information to criminally investigate or prosecute any alcohol or drug abuse patient.[facility] CenterIn the event this information is protected by the Federal Confidentiality of Alcohol and Drug Abuse Patient Records regulations: The Federal rules restrict any use of the information to criminally investigate or prosecute any alcohol or drug abuse patient.[facility] CenterIn the event this information is protected by the Federal Confidentiality of Alcohol and Drug Abuse Patient Records regulations: The Federal rules restrict any use of the information to criminally investigate or prosecute any alcohol or drug abuse patient.[facility] CenterIn the event this information is protected by the Federal Confidentiality of Alcohol and Drug Abuse Patient Records regulations: The Federal rules restrict any use of the information to criminally investigate or prosecute any alcohol or drug abuse patient.[facility] CenterIn the event this information is protected by the Federal Confidentiality of Alcohol and Drug Abuse Patient Records regulations: The Federal rules restrict any use of the information to criminally investigate or prosecute any alcohol or drug abuse patient.[facility] CenterIn the event this information is protected by the Federal Confidentiality of Alcohol and Drug Abuse Patient Records regulations: The Federal rules restrict any use of the information to criminally investigate or prosecute any alcohol or drug abuse patient.[facility] CenterIn the event this information is protected by the Federal Confidentiality of Alcohol and Drug Abuse Patient Records regulations: The Federal rules restrict any use of the information to criminally investigate or prosecute any alcohol or drug abuse patient.[facility] CenterIn the event this information is protected by the Federal Confidentiality of Alcohol and Drug Abuse Patient Records regulations: The Federal rules restrict any use of the information to criminally investigate or prosecute any alcohol or drug abuse patient.[facility] CenterIn the event this information is protected by the Federal Confidentiality of Alcohol and Drug Abuse Patient Records regulations: The Federal rules restrict any use of the information to criminally investigate or prosecute any alcohol or drug abuse patient.[facility] CenterIn the event this information is protected by the Federal Confidentiality of Alcohol and Drug Abuse Patient Records regulations: The Federal rules restrict any use of the information to criminally investigate or prosecute any alcohol or drug abuse patient.[facility] CenterIn the event this information is protected by the Federal Confidentiality of Alcohol and Drug Abuse Patient Records regulations: The Federal rules restrict any use of the information to criminally investigate or prosecute any alcohol or drug abuse patient.[facility] CenterIn the event this information is protected by the Federal Confidentiality of Alcohol and Drug Abuse Patient Records regulations: The Federal rules restrict any use of the information to criminally investigate or prosecute any alcohol or drug abuse patient.[facility] CenterIn the event this information is protected by the Federal Confidentiality of Alcohol and Drug Abuse Patient Records regulations: The Federal rules restrict any use of the information to criminally investigate or prosecute any alcohol or drug abuse patient.[facility] CenterIn the event this information is protected by the Federal Confidentiality of Alcohol and Drug Abuse Patient Records regulations: The Federal rules restrict any use of the information to criminally investigate or prosecute any alcohol or drug abuse patient.[facility] CenterIn the event this information is protected by the Federal Confidentiality of Alcohol and Drug Abuse Patient Records regulations: The Federal rules restrict any use of the information to criminally investigate or prosecute any alcohol or drug abuse patient.[facility] CenterIn the event this information is protected by the Federal Confidentiality of Alcohol and Drug Abuse Patient Records regulations: The Federal rules restrict any use of the information to criminally investigate or prosecute any alcohol or drug abuse patient.[facility] CenterIn the event this information is protected by the Federal Confidentiality of Alcohol and Drug Abuse Patient Records regulations: The Federal rules restrict any use of the information to criminally investigate or prosecute any alcohol or drug abuse patient.[facility] CenterIn the event this information is protected by the Federal Confidentiality of Alcohol and Drug Abuse Patient Records regulations: The Federal rules restrict any use of the information to criminally investigate or prosecute any alcohol or drug abuse patient.[facility] CenterIn the event this information is protected by the Federal Confidentiality of Alcohol and Drug Abuse Patient Records regulations: The Federal rules restrict any use of the information to criminally investigate or prosecute any alcohol or drug abuse patient.[facility] CenterIn the event this information is protected by the Federal Confidentiality of Alcohol and Drug Abuse Patient Records regulations: The Federal rules restrict any use of the information to criminally investigate or prosecute any alcohol or drug abuse patient.[facility] CenterIn the event this information is protected by the Federal Confidentiality of Alcohol and Drug Abuse Patient Records regulations: The Federal rules restrict any use of the information to criminally investigate or prosecute any alcohol or drug abuse patient.[facility] CenterIn the event this information is protected by the Federal Confidentiality of Alcohol and Drug Abuse Patient Records regulations: The Federal rules restrict any use of the information to criminally investigate or prosecute any alcohol or drug abuse patient.[facility] Care Teams (unrecognized sec tion and content) Cell Technician Relationship Specialty Start Date End Date Maira Escamilla MD [address] [place] [address] PCP - General Family Practice 09/16/18 Cell Technician Relationship Specialty Start Date End Date Maira Escamilla MD [facility] [place] [address] PCP - General Family Practice 09/16/18 Cell Technician Relationship Specialty Start Date End Date Maira Escamilla MD [facility] [place] [address] PCP - General Family Practice 09/16/18 Cell Technician Relationship Specialty Start Date End Date Maira Escamilla MD [facility] [place] [address] PCP - General Family Practice 09/16/18 Cell Technician Relationship Specialty Start Date End Date Maira Escamilla MD [facility] [place] [address] PCP - General Family Practice 09/16/18 Cell Technician Relationship Specialty Start Date End Date Maira Escamilla MD [address] [place] [id number] PCP - General Family Practice 09/16/18 Cell Technician Relationship Specialty Start Date End Date Maira Escamilla MD [address] [facility] [place] [address] PCP - General Family Practice 09/16/18 Cell Technician Relationship Specialty Start Date End Date Maira Escamilla MD [address] [facility] [place] [address] PCP - General Family Practice 09/16/18 Cell Technician Relationship Specialty Start Date End Date Maira Escamilla MD [address] [facility] [place] [address] PCP - General Family Practice 09/16/18 Cell Technician Relationship Specialty Start Date End Date Maira Escamilla MD [address] [facility] [place] [address] PCP - General Family Practice 09/16/18 Cell Technician Relationship Specialty Start Date End Date Maira Escamilla MD [address] [facility] [place] [address] PCP - General Family Practice 09/16/18 Cell Technician Relationship Specialty Start Date End Date Maira Escamilla MD [address] [facility] [place] [address] PCP - General Family Practice 09/16/18 Cell Technician Relationship Specialty Start Date End Date Maira Escamilla MD [address] [facility] [place] [address] PCP - General Family Practice 09/16/18 Cell Technician Relationship Specialty Start Date End Date Maira Escamilla MD [address] [facility] [place] [address] PCP - General Family Practice 09/16/18 Cell Technician Relationship Specialty Start Date End Date Maira Escamilla MD [address] [facility] [place] [address] PCP - General Family Practice 09/16/18 Cell Technician Relationship Specialty Start Date End Date Maira Escamilla MD [address] [facility] [place] [address] PCP - General Family Practice 09/16/18 Cell Technician Relationship Specialty Start Date End Date Maira Escamilla MD [address] [facility] [place] [address] PCP - General Family Practice 09/16/18 Cell Technician Relationship Specialty Start Date End Date Maira Escamilla MD [address] [facility] [place] [address] PCP - General Family Practice 09/16/18 Cell Technician Relationship Specialty Start Date End Date Maira Escamilla MD [address] [facility] [place] [address] PCP - General Family Practice 09/16/18 Cell Technician Relationship Specialty Start Date End Date Maira Escamilla MD [address] [facility] [place] [address] PCP - General Family Practice 09/16/18 Cell Technician Relationship Specialty Start Date End Date Maira Escamilla MD [address] [facility] [place] [address] PCP - General Family Practice 09/16/18 Cell Technician Relationship Specialty Start Date End Date Maira Escamilla MD [address] [facility] [place] [address] PCP - General Family Medicine 09/16/18 Cell Technician Relationship Specialty Start Date End Date Maira Escamilla MD [address] [facility] [place] [address] PCP - General Family Medicine 09/16/18 Cell Technician Relationship Specialty Start Date End Date Maira Escamilla MD [address] [facility] [place] [address] PCP - General Family Medicine 09/16/18 Cell Technician Relationship Specialty Start Date End Date Maira Escamilla MD [address] [facility] [place] [address] PCP - General Family Medicine 09/16/18 Cell Technician Relationship Specialty Start Date End Date Maira Escamilla MD [address] [facility] [place] [address] PCP - General Family Medicine 09/16/18 Cell Technician Relationship Specialty Start Date End Date Maira Escamilla MD [address] [facility] [place] [address] PCP - General Family Medicine 09/16/18 Cell Technician Relationship Specialty Start Date End Date Maira Escamilla MD [address] [facility] [place] [address] PCP - General Family Medicine 09/16/18 Cell Technician Relationship Specialty Start Date End Date Maira Escamilla MD [address] [facility] [place] [address] PCP - General Family Medicine 09/16/18 Cell Technician Relationship Specialty Start Date End Date Maira Escamilla MD [address] [facility] [place] [address] PCP - General Family Medicine 09/16/18 Cell Technician Relationship Specialty Start Date End Date Maira Escamilla MD [address] [facility] [place] [address] PCP - General Family Medicine 09/16/18 Cell Technician Relationship Specialty Start Date End Date Maira Escamilla MD [address] [facility] [place] [address] PCP - General Family Medicine 09/16/18 Cell Technician Relationship Specialty Start Date End Date Maira Escamilla MD [address] [facility] [place] [address] PCP - General Family Medicine 09/16/18 Cell Technician Relationship Specialty Start Date End Date Maira Escamilla MD [address] [place], [place] [address] PCP - General Family Medicine 09/16/18 Cell Technician Relationship Specialty Start Date End Date Maira Escamilla MD [address] [place], [place] [address] PCP - General Family Medicine 09/16/18 Cell Technician Relationship Specialty Start Date End Date Maira Escamilla MD [address] [place] [address] PCP - General Family Medicine 09/16/18 Team Status: Active Member Role Status Dates Dr. Maira Escamilla MD Family Provider Active Dr. Maira Escamilla MD Primary Care Provider Active Team Status: Inactive Member Role Status Dates Dr. Maira Escamilla MD Primary Care Provider Active Dr. Abhishek Crowder MD Emergency Provider Active Cell Technician Relationship Specialty Start Date End Date Maira Escamilla MD [address] [place], [place] [address] PCP - General Family Medicine 09/16/18 Cell Technician Relationship Specialty Start Date End Date Maira Escamilla MD [address] [place], [place] [address] PCP - General Family Medicine 09/16/18 Cell Technician Relationship Specialty Start Date End Date Maira Escamilla MD [address] [place], [place] [address] PCP - General Family Medicine 09/16/18 Team [...] Dr. Jose Salgado MD Emergency Provider Active Cell Technician Relationship Specialty Start Date End Date Maira Escamilla MD [address] [place] [address] PCP - General Family Medicine 09/16/18 Cell Technician Relationship Specialty Start Date End Date Maira Escamilla MD [address] [place] [address] PCP - General Family Medicine 09/16/18 Cell Technician Relationship Specialty Start Date End Date Maira Escamilla MD [address] [place] [address] PCP - General Family Medicine 09/16/18 Cell Technician Relationship Specialty Start Date End Date Maira Escamilla MD [address] [place] [address] PCP - General Family Medicine 09/16/18 Cell Technician Relationship Specialty Start Date End Date Maira Escamilla MD [address] [place] [address] PCP - General Family Medicine 09/16/18 Cell Technician Relationship Specialty Start Date End Date Maira Escamilla MD [address] [place] [address] PCP - General Family Medicine 09/16/18 Cell Technician Relationship Specialty Start Date End Date Maira Escamilla MD [address] [place] [address] PCP - General Family Medicine 09/16/18 Cell Technician Relationship Specialty Start Date End Date Maira Escamilla MD [address] [facility] [place] [address] PCP - General Family Medicine 09/16/18 Cell Technician Relationship Specialty Start Date End Date Maira Escamilla MD [address] [facility] [place] [address] PCP - General Family Medicine 09/16/18 Cell Technician Relationship Specialty Start Date End Date Maira Escamilla MD [address] [place] [address] PCP - General Family Medicine 09/16/18 Cell Technician Relationship Specialty Start Date End Date Maira Escamilla MD [address] [place] [address] PCP - General Family Medicine 09/16/18 Cell Technician Relationship Specialty Start Date End Date Maira Escamilla MD [address] [place] [address] PCP - General Family Medicine 09/16/18 Cell Technician Relationship Specialty Start Date End Date Maira Ecsamilla MD [address] [place] [address] PCP - General Family Medicine 09/16/18 Cell Technician Relationship Specialty Start Date End Date Maira Escamilla MD [address] [place] [address] PCP - General Family Medicine 09/16/18 Cell Technician Relationship Specialty Start Date End Date Maira Escamilla MD [address] [place] [address] PCP - General Family Medicine 09/16/18 Cell Technician Relationship Specialty Start Date End Date Maira Escamilla MD [address] [facility] [place] [address] PCP - General Family Medicine 09/16/18 Cell Technician Relationship Specialty Start Date End Date Maira Escamilla MD [address] [facility] [place] [address] PCP - General Family Medicine 09/16/18 Cell Technician Relationship Specialty Start Date End Date Maira Escamilla MD [address] [facility] [place] [address] PCP - General Family Medicine 09/16/18 Cell Technician Relationship Specialty Start Date End Date Maira Escamilla MD [address] [facility] [place] [address] PCP - General Family Medicine 09/16/18 Viviana Marie, DIE MAKER TRIM.VOCATIONAL ADVISER [address] [facility] [place] [address] Staffing Mgr Family Medicine 01/18/24 Anna Nino DIE MAKER TRIM.VOCATIONAL ADVISER [address] [facility] [place] [address] Staffing Mgr Family Medicine 01/18/24 Cell Technician Relationship Specialty Start Date End Date Maira Escamilla MD [address] [facility] [place] [address] PCP - General Family Medicine 09/16/18 Viviana Marie DIE MAKER TRIM.VOCATIONAL ADVISER [address] [facility] [place] [address] Staffing Mgr Family Medicine 01/18/24 Anna Nino DIE MAKER TRIM.VOCATIONAL ADVISER [address] [facility] [place] [address] Staffing Mgr Family [facility] 01/18/24 Cell Technician Relationship Specialty Start Date End Date Maira Escamilla MD [address] [facility] [place] [address] PCP - General Family Medicine 09/16/18 Viviana Marie APRN.VOCATIONAL ADVISER [address] [place] [address] Staffing Mgr Family Medicine 01/18/24 Anna Nino APRN.VOCATIONAL ADVISER [address] [place] [address] [facility] 01/18/24 Cell Technician Relationship Specialty Start Date End Date Maira Escamilla MD [address] [place] [address] PCP - General Family Medicine 09/16/18 Viviana Marie APRN.VOCATIONAL ADVISER [address] [place] [address] Staffing Mgr Family Medicine 01/18/24 Anna Nino APRN.VOCATIONAL ADVISER [address] [place] [address] Staffing Mgr Family Medicine 01/18/24 Cell Technician Relationship Specialty Start Date End Date Maira Escamilla MD [address] [place] [address] PCP - General Family Medicine 09/16/18 Viviana Marie APRN.VOCATIONAL ADVISER [address] [place] [address] Staffing Mgr [facility] 01/18/24 Anna Nino APRN.VOCATIONAL ADVISER [address] [facility] [place] [address] Critical Access [facility] 01/18/24 Cell Technician Relationship Specialty Start Date End Date Maira Escamilla MD [address] [facility] [place] [address] PCP - General Family Medicine 09/16/18 Viviana Marie APRN.VOCATIONAL ADVISER [address] [facility] [address] [facility] 01/18/24 Anna Nino DIE MAKER TRIM.VOCATIONAL ADVISER [address] [place] [address] Critical [facility] 01/18/24 Cell Technician Relationship Specialty Start Date End Date Maira Escamilla MD [address] [facility] [place] [address] PCP - General Family Medicine 09/16/18 Viviana Marie DIE MAKER TRIM.VOCATIONAL ADVISER [address] [place] [address] Critical [facility] 01/18/24 Anna Nino DIE MAKER TRIM.VOCATIONAL ADVISER [address] [facility] [place] [address] Critical [facility] 01/18/24 Cell Technician Relationship Specialty Start Date End Date Maira Escamilla MD [address] [facility] [address] PCP - General Family Medicine 09/16/18 Viviana Marie DIE MAKER TRIM.VOCATIONAL ADVISER [address] [place] [address] Staffing Mgr [facility] 01/18/24 Anna Nino DIE MAKER TRIM.VOCATIONAL ADVISER [address] [facility] [place] [address] [facility] 01/18/24 Cell Technician Relationship Specialty Start Date End Date Maira Escamilla MD [address] [place] [address] PCP - General Family Medicine 09/16/18 Viviana Marie DIE MAKER TRIM.VOCATIONAL ADVISER [address] [place] [address] [facility] 01/18/24 Anna Nino DIE MAKER TRIM.VOCATIONAL ADVISER [address] [place] [address] Critical [facility] 01/18/24 Cell Technician Relationship Specialty Start Date End Date Maira Escamilla MD [address] [place] [address] PCP - General Family Medicine 09/16/18 Viviana Marie DIE MAKER TRIM.VOCATIONAL ADVISER [address] [place] [address] Critical [facility] 01/18/24 Anna Nino DIE MAKER TRIM.VOCATIONAL ADVISER [address] [place] [address] Critical [facility] 01/18/24 Cell Technician Relationship Specialty Start Date End Date Maira Escamilla MD [address] [place] [address] PCP - General Family Medicine 09/16/18 Viviana Marie APRN.VOCATIONAL ADVISER [address] [place] [address] Staffing Mgr Family Medicine 01/18/24 Anna Nino DIE MAKER TRIM.VOCATIONAL ADVISER [address] [facility] [place] [address] Staffing Mgr [facility] Medicine 01/18/24 Cell Technician Relationship Specialty Start Date End Date Maira Escamilla MD [address] [place] [address] PCP - General Family Medicine 09/16/18 Viviana Marie DIE MAKER TRIM.VOCATIONAL ADVISER [address] [place] [address] Staffing Mgr Family Medicine 01/18/24 Anna Nino DIE MAKER TRIM.VOCATIONAL ADVISER [address] [place] [address] Staffing Mgr Family Medicine 01/18/24 Cell Technician Relationship Specialty Start Date End Date Maira Escamilla MD [address] [place] [address] PCP - General Family Medicine 09/16/18 Viviana Marie DIE MAKER TRIM.VOCATIONAL ADVISER [address] [place] [address] Staffing Mgr Family Medicine 01/18/24 Cell Technician Relationship Specialty Start Date End Date Maira Escamilla MD [address] [place] [address] PCP - General Family Medicine 09/16/18 Viviana Marie APRN.VOCATIONAL ADVISER [address] [place] [address] Staffing Mgr Family Medicine 01/18/24 Cell Technician Relationship Specialty Start Date End Date Maira Escamilla MD [address] [place] [address] PCP - General Family Medicine 09/16/18 Viviana Marie DIE MAKER TRIM.VOCATIONAL ADVISER [address] [place] [address] Staffing Mgr Family Medicine 01/18/24 Anna Nino DIE MAKER TRIM.VOCATIONAL ADVISER [address] [place] [address] Staffing Mgr Family Medicine 01/18/24 Cell Technician Relationship Specialty Start Date End Date Maira Escamilla MD [address] [place] [address] PCP - General Family Medicine 09/16/18 Viviana Marie DIE MAKER TRIM.VOCATIONAL ADVISER [address] [place] [address] Staffing Mgr Family Medicine 01/18/24 Anna Nino DIE MAKER TRIM.VOCATIONAL ADVISER [address] [place] [address] Staffing Mgr Family [facility] 01/18/24 Cell Technician Relationship Specialty Start Date End Date Maira Escamilla MD [address] [place] [address] PCP - General Family Medicine 09/16/18 Viviana Marie, DIE MAKER TRIM.VOCATIONAL ADVISER [address] [facility] [place] [address] [facility] 01/18/24 Anna Nino DIE MAKER TRIM.VOCATIONAL ADVISER [address] [facility] [place] [address] Critical [facility] 01/18/24 Team Status: Active [...] June 02, 2024 End: June 02, 2024 Cell Technician Relationship Specialty Start Date End Date Maira Escamilla MD [address] [facility] [place] [address] PCP - General Family Medicine 09/16/18 Viviana Marie, DIE MAKER TRIM.VOCATIONAL ADVISER [address] [facility] [place] [address] [facility] 01/18/24 Anna Nino DIE MAKER TRIM.VOCATIONAL ADVISER [address] [facility] [place] [address] [facility] 01/18/24 Cell Technician Relationship Specialty Start Date End Date Maira Escamilla MD [address] [facility] [place] [address] PCP - General Family Medicine 09/16/18 Viviana Marie APRN.VOCATIONAL ADVISER [address] [facility] [place] [address] Staffing Mgr Family Medicine 01/18/24 Anna Nino APRN.VOCATIONAL ADVISER [address] [facility] [place] [address] [facility] 01/18/24 Cell Technician Relationship Specialty Start Date End Date Maira Escamilla MD [address] [facility] [place] [address] PCP - General Family Medicine 09/16/18 Viviana Marie APRN.VOCATIONAL ADVISER [address] [facility] [address] Staffing Mgr [facility] Medicine 01/18/24 Anna Nino APRN.VOCATIONAL ADVISER [address] [facility] [place] [address] [facility] 01/18/24 Cell Technician Relationship Specialty Start Date End Date Maira Escamilla MD [address] [place] [address] PCP - General Family Medicine 09/16/18 Viviana Marie APRN.VOCATIONAL ADVISER [address] [facility] [place] [address] Staffing Mgr Family Medicine 01/18/24 Anna Nino APRN.VOCATIONAL ADVISER [address] [place] [address] [facility] 01/18/24 Cell Technician Relationship Specialty Start Date End Date Maira Escamilla MD [address] [place] [address] PCP - General Family Medicine 09/16/18 Viviana Marie, DIE MAKER TRIM.VOCATIONAL ADVISER [address] [place] [address] [facility] 01/18/24 Anna Nino DIE MAKER TRIM.VOCATIONAL ADVISER [address] [place] [address] Critical [facility] 01/18/24 Cell Technician Relationship Specialty Start Date End Date Maira Escamilla MD [address] [place] [address] PCP - General Family Medicine 09/16/18 Viviana Marie DIE MAKER TRIM.VOCATIONAL ADVISER [address] [place] [address] [facility] 01/18/24 Anna Nino DIE MAKER TRIM.VOCATIONAL ADVISER [address] [place] [address] [facility] 01/18/24 Cell Technician Relationship Specialty Start Date End Date Maira Escamilla MD [address] [place] [address] PCP - General Family Medicine 09/16/18 Viviana Marie, DIE MAKER TRIM.VOCATIONAL ADVISER [address] [place] [address] [facility] 01/18/24 Anna Nino DIE MAKER TRIM.VOCATIONAL ADVISER [address] [facility] [place] [address] Critical Access Hospital 01/18/24 Cell Technician Relationship Specialty Start Date End Date Maira Escamilla MD [address] [place] [address] PCP - General Family Medicine 09/16/18 Viviana Marie DIE MAKER TRIM.VOCATIONAL ADVISER [address] [place] [address] [facility] 01/18/24 Anna Nino DIE MAKER TRIM.VOCATIONAL ADVISER [address] [place] [address] [facility] 01/18/24 Cell Technician Relationship Specialty Start Date End Date Maira Escamilla MD [address] [place] [address] PCP - General Family Medicine 09/16/18 Viviana Marie, DIE MAKER TRIM.VOCATIONAL ADVISER [address] [place] [address] [facility] 01/18/24 Anna Nino DIE MAKER TRIM.VOCATIONAL ADVISER [address] [place] [address] [facility] 01/18/24 Cell Technician Relationship Specialty Start Date End Date Maira Escamilla MD [address] [place] [address] PCP - General Family Medicine 09/16/18 Viviana Marie, KYLE.VOCATIONAL ADVISER [address] [facility] [place] [address] 01/18/24 Anna Nino APRN.VOCATIONAL ADVISER [address] [facility] [place] [address] [facility] 01/18/24 Team Status: Active Member Role/Relationship [...] August 16, 2024 End: August 16, 2024 Cell Technician Relationship Specialty Start Date End Date Maira Escamilla MD [address] [facility] [place] [address] PCP - General Family Medicine 09/16/18 Viviana Marie APRN.VOCATIONAL ADVISER [address] [place] [address] [facility] Medicine 01/18/24 Anna Nino APRN.VOCATIONAL ADVISER [address] [facility] [place] 4528[address] Critical [facility] 01/18/24 Team Status: Inactive Member Role/Relationship Status [...] September 01, 2024 End: September 01, 2024 Cell Technician Relationship Specialty Start Date End Date Maira Escamilla MD [address] [facility] [place], [place] [address] PCP - General Family Medicine 09/16/18 Viviana Marie, DIE MAKER TRIM.VOCATIONAL ADVISER [address] [facility] [place] [address] [facility]ing [facility] 01/18/24 Anna Nino DIE MAKER TRIM.VOCATIONAL ADVISER [address] [facility] [place] [address] Critical [facility] 01/18/24 Cell Technician Relationship Specialty Start Date End Date Maira Escamilla MD [address] [facility] [place] [address] PCP - General Family Medicine 09/16/18 Viviana Marie, DIE MAKER TRIM.VOCATIONAL ADVISER [address] [facility] [place] [address] [facility] Medicine 01/18/24 Anna Nino DIE MAKER TRIM.VOCATIONAL ADVISER [address] [facility] [place] [address] Critical [facility] 01/18/24 Cell Technician Relationship Specialty Start Date End Date Maira Escamilla MD [address] [place], [place] [address] PCP - General Family Medicine 09/16/18 Viviana Marie APRN.VOCATIONAL ADVISER [address] [place], [place] [id number] [facility] 01/18/24 Anna Nino APRN.VOCATIONAL ADVISER [address] [place], [place] [id number] [facility] 01/18/24 Goals (unrecognized section [...] section and content) DATE CREATED AUTHOR 09/03/2023 [facility] DATE CREATED AUTHOR AUTHOR'S ORGANIZ ATION 06/06/2024 [facility] DATE CREATED AUTHOR AUTHOR'S ORGANIZ ATION 09/09/2024 [facility] DATE CREATED AUTHOR AUTHOR'S ORGANIZ ATION 09/10/2024 [facility] FOR RECORDS PERTAINING TO PATIENTS [...] BE BASED ON THE PRIMARY CLINICAL RECORDS. [facility] [employer] [facility]. provides no warranty or guarantee of the accuracy or completeness of information in this document.
[2024-09-10 15:20] LABS: Hematocrit 35.0 % (37-47); Hemoglobin 11.8 g/dL (12.0-15.0); Immature Granulocytes Count 0.060 X10^3/uL (0.0-0.0); Mean Corp Hgb Conc 33.7 g/dL (32-36); Mean Corpuscular Volume 83.7 fL (81-99); Mean Platelet Vol. 9.6 fl (6.2-12.0); NRBC Flagged by Analyzer 0 % (0-5); POSITIVE DIFFERENTIAL YES; Platelet Count 239 K/mm3 (150-450); RBC Distribution Width CV 13.6 % (11.6-14.6); RBC Distribution Width SD 42.0 fl (35.1-43.9); Red Blood Count 4.18 M/mm3 (4.2-5.4); White Blood Count 8.8 K/mm3 (4.4-11.0)
[2024-09-10] MEDS: 0.9% Normal Saline (1000mL) 1,000 ML 1000 ML IV ×2 (15:29→18:03)
[2024-09-10 15:48] LABS: Anion Gap 9 (5-15); BUN 9 mg/dL (4-19); BUN/Creat Ratio 15.6 RATIO (10-20); Calcium,Total 8.4 mg/dL (7.6-11.0); Carbon Dioxide 25.8 mmol/L (21.0-32.0); Chloride 101 mmol/L (98-108); Estimated Creatinine Clearance 136.34 ml/min (50-250); Glucose 112 mg/dL (70-99); Potassium 4.1 mmol/L (3.3-5.1)
--- NOTE | 2024-09-10 16:53 | HP.PCM.HOS_ITS ---
HPI - General HPI Narrative RAUL VOGT, is a 43 F who presents [facility] Medical History Wears contact lenses Anxiety History of steroid therapy Low iron Restless legs Migraine headache Electronic cigarette use History of echocardiogram History of stress test Tachycardia Bradycardia Migraine GERD (gastroesophageal reflux disease) Arthritis GERD (gastroesophageal reflux disease) Osteoarthritis Home Medications ?Medication ?Instructions ?Recorded ?Last Taken ?Type pregabalin 75 mg capsule 75 mg PO DAILY nerves/pain 1 02/13/19 09/09/24 History cholecalciferol (vitamin D3) 50 50 mcg PO DAILY supple ment 08/20/23 09/09/24 History mcg (2,000 unit) tablet (D3 DOTS) multivitamin with iron 1 tab PO DAILY supplement 09/09/24 History vitamin B complex (Complex B-100 1 tab PO DAILY supple ment 08/20/23 09/09/24 History tablet,extended release) sertraline 50 mg tablet 50 mg PO DAILY 03/08/2403/05 History ferrous sulfate 325 mg (65 mg 325 mg PO DAILY 08/25/24 09/09/24 History iron) tablet (Feosol) acetaminophen 500 mg tablet 1,000 mg (2 x 500 mg) PO Q 6H PRN 09/01/24 09/10/24 Rx (Acetaminophen Extra Strength) fever or pain 30 days # 90 tabs oxycodone 5 mg tablet 5 mg PO Q8H PRN severe pain 7 days 09/01/24 09/10/24 Rx #20 TABLETS hydroxyzine HCl 25 mg tablet 25 mg PO TID PRN PRN itch 09/10/24 09/09/24 History triamcinolone acetonide 0.5 % 1 applic topical TID 04/0509/09/24 History topical cream Allergy/AdvReac Type Severity Reaction Status Date / Time gabapentin (From Neurontin) Allergy Swelling Verified 09/10/24 14:11 human papillomavirus AdvReac Severe Swelling Verified 09/10/24 14:11 vaccine, quadr (From Gardasil (PF)) topiramate (From Topamax) AdvReac Mild TINGLING Verified 09/10/24 14:11 prednisone AdvReac Other Verified 09/10/24 14:11 Family History Mother Breast cancer Father Arthritis Surgical History History of gastric bypass Status post panniculectomy H/O section History of tonsillectomy History of ankle surgery History of foot surgery History of Mark-en-Y gastric bypass Hx of cholecystectomy History of bilateral tubal ligation Social History household members: significant other Smoking Status: Current every day smoker tobacco type: e-cigarettes substance use type: does not use Vital Signs Vital Signs Vital Signs: 09/10/24 14:11 09/10/24 14:11 09/10/24 15:13 Temperature 102.8 F H 99.7 F H Temperature Source Oral Oral Pulse Rate 107 H 83 Respiratory Rate 18 13 Respiratory Effort Normal Non-Labored Respiratory Pattern Normal Blood Pressure 108/72 108/63 Blood Pressure Mean 84 78 Pulse Ox 97 100 Oxygen Delivery Method Room Air Room Air 09/10/24 15:56 09/10/24 15:56 Temperature 99.5 F H Temperature Source Oral Pulse Rate 74 Respiratory Rate 18 Respiratory Effort Respiratory Pattern Blood Pressure 106/61 106/61 Blood Pressure Mean 76 76 Pulse Ox 94 Oxygen Delivery Method Room Air Weight Weight: 84.595 kg Body Mass Index (BMI) 28.3 Results Lab / Micro Data 09/10/24 15:08 09/10/24 15:08 Labs: Laboratory Results - last 24 hr 09/10/24 15:08: WBC 8.8, RBC 4.18 L, Hgb 11.8 L, Hct 35.0 L, MCV 83.7, MCH 28.2, MCHC 33.7, RDW Std Deviation 42.0, RDW Coeff of Gee 13.6, Plt Count 239, MPV 9.6, Immature Gran % (Auto) 0.700, Neut % (Auto) 83.4 H, Lymph % (Auto) 6.5 L, [place] % (Auto) 8.7, Eos % (Auto) 0.5, Baso % (Auto) 0.2, Absolute Neuts (auto) 7.4, Absolute Lymphs (auto) 0.57 L, Nucleated RBC % 0, Sodium 135, Potassium 4.1, Chloride 101, Carbon Dioxide 25.8, Anion Gap 9, BUN 9, Creatinine 0.60 L, Estim Creat Clear Calc 136.34, Est GFR (MDRD) Non-Af 114, BUN/Creatinine Ratio 15.6, Glucose 112 H, Lactic Acid < 1.0, Calcium 8.4 Imaging Radiology Impression Abdomen/Pelvis CT 09/10/24 14:28 IMPRESSION: 1. Status post hysterectomy. Left pelvic abscess with extensive surrounding inflammatory changes. 2. Mildly thickened mid sigmoid colon, likely secondary inflammation versus focal colitis. Reading Location: [id number]
[2024-09-10] MEDS: 0.9% Normal Saline (1000mL) 1,000 ML 999 ML IV (16:55)
[2024-09-10] MEDS: Piperacil/Tazobactam 4.5 GM in 0.9% Normal Saline (100mL MB+) 100 ML IV (17:05)
[2024-09-10] MEDS: HYDROmorphone 0.5 MG/0.5 ML SYRINGE IV (22:00)
[2024-09-11 00:18] VITALS: BP 97/64; PULSE 82; RESP 16; TEMP 37.3; O2SAT 99
== END 2024-09-11 00:22 | disposition short-term general hospital (02) ==
PROVIDERS: Emergency Provider Emergency Medicine; PCP Family Medicine; Visit Provider Emergency Medicine
DX: T81.49XA Infection following a procedure, other surgical site, initial encounter (principal); K65.0 Generalized (acute) peritonitis; R50.9 Fever, unspecified; Z90.710 Acquired absence of both cervix and uterus; N73.9 Female pelvic inflammatory disease, unspecified; F41.9 Anxiety disorder, unspecified; Z79.899 Other long term (current) drug therapy; Z90.49 Acquired absence of other specified parts of digestive tract; R00.0 Tachycardia, unspecified; F17.210 Nicotine dependence, cigarettes, uncomplicated
CPT/HCPCS: 74177; 80048; 83605; 85025; 96361; 96365; 96375; 99285; Q9967; J2405